=== PATIENT | female | born 1950 | race Caucasian/White ===

== ENCOUNTER → 2018-06-15 11:42 | Outpatient (CLI) | payer MEDICARE, OTHER, SELFPAY ==
[2018-06-15 15:38] LABS: Absolute Lymphocyte Count 1.92 X10^3/ul (0.83-4.51); Absolute Neutrophil Count 4.2 X10^3/uL (2.0-7.7); Basophil# 0.02 X10^3/uL; Basophil% 0.3 % (0-1); Eosinophil# 0.07 X10^3/uL; Hematocrit 44.3 % (37-47); Hemoglobin 13.9 g/dl (12.0-15.0); Lymphocyte # 1.92 X10^3/ul (4.0); Lymphocyte % 28.4 % (19-41); Mean Corp Hgb Conc 31.4 g/gl (32-36); Mean Corpuscular Hgb 29.7 pg (27.0-32.0); Mean Corpuscular Volume 94.7 fL (81-99); Mean Platelet Vol. 11.1 fl (6.2-12.0); Monocyte# 0.53 X10^3/uL; Monocyte% 7.8 % (0-10); Neutrophil # 4.22 X10^3/uL (2.7-7.7); Neutrophil % 62.4 % (47-70); Platelet Count 242 K/mm3 (150-450); RBC Distribution Width CV 14.2 % (11.6-14.6); RBC Distribution Width SD 47.5 fl (35.1-43.9); Red Blood Count 4.68 M/mm3 (4.2-5.4); White Blood Count 6.8 K/mm3 (4.4-11.0)
[2018-06-15 15:55] LABS: International Normalized Ratio 3.4; Prothrombin Time (Protime)PT. 34.3 SECONDS (11.7-14.9)
[2018-06-15 15:57] LABS: ALB/GLOB Ratio 0.8 RATIO (0.9-2.4); AST(SGOT) 14 U/L (15-37); Alanine Aminotransfer ALT/SGPT 21 U/L (13-56); Albumin, Serum 3.3 g/dL (3.2-5.0); Alkaline Phosphatase 94 U/L (45-117); Anion Gap 9 (5-15); BUN 14 mg/dL (7-18); Calcium,Total 8.9 mg/dL (8.5-10.1); Chloride 102 mmol/L (98-107); EST Glomerular Filtration Rate 59 mL/min (>60); Est Glom Filt Rate - Afr Amer 71 mL/min (>60); Globulin 4.3 g/dL (2.2-4.2); Glucose 137 mg/dL (74-106); Potassium 4.3 mmol/L (3.5-5.1); Protein, Total 7.6 g/dL (6.4-8.2); Sodium Level 138 mmol/L (136-145); T4 Free Direct 1.08 ng/dL (0.76-1.46); Thyroid Stim Hormone (TSH) 9.16 uIU/mL (0.358-3.74)
[2018-06-15 16:01] LABS: POSITIVE COUNT NO; POSITIVE DIFFERENTIAL NO; POSITIVE MORPHOLOGY NO
== END ==
PROVIDERS: Family Provider Family Medicine; PCP Family Medicine; Visit Provider Family Medicine
DX: I48.91 Unspecified atrial fibrillation (principal); J44.9 Chronic obstructive pulmonary disease, unspecified; E03.9 Hypothyroidism, unspecified
CPT/HCPCS: 36415; 80053; 82043; 82570; 84439; 84443; 85025; 85610

== ENCOUNTER → 2018-11-03 15:43 | Outpatient (CLI) | payer MEDICARE, OTHER, SELFPAY ==
[2018-11-03 17:42] LABS: Absolute Lymphocyte Count 2.33 X10^3/ul (0.83-4.51); Absolute Neutrophil Count 5.7 X10^3/uL (2.0-7.7); Basophil# 0.02 X10^3/uL; Basophil% 0.2 % (0-1); Eosinophil# 0.07 X10^3/uL; Eosinophils% 0.8 % (0-5); Hematocrit 43.5 % (37-47); Hemoglobin 13.6 g/dl (12.0-15.0); Lymphocyte # 2.33 X10^3/ul (4.0); Lymphocyte % 26.9 % (19-41); Mean Corp Hgb Conc 31.3 g/gl (32-36); Mean Corpuscular Hgb 28.8 pg (27.0-32.0); Mean Corpuscular Volume 92.2 fL (81-99); Mean Platelet Vol. 10.9 fl (6.2-12.0); Monocyte# 0.52 X10^3/uL; Neutrophil # 5.72 X10^3/uL (2.7-7.7); Neutrophil % 66.1 % (47-70); Platelet Count 262 K/mm3 (150-450); RBC Distribution Width CV 14.7 % (11.6-14.6); RBC Distribution Width SD 49.9 fl (35.1-43.9); Red Blood Count 4.72 M/mm3 (4.2-5.4); White Blood Count 8.7 K/mm3 (4.4-11.0)
[2018-11-03 17:47] LABS: POSITIVE COUNT NO; POSITIVE DIFFERENTIAL NO; POSITIVE MORPHOLOGY NO
[2018-11-03 18:03] LABS: Microalbumin,Random Urine 68.3 mg/L (NO RANGE EST.); Microalbumin:Creatinine Ratio 32.5 mg/g CRE (<30 mg/g CRE)
[2018-11-03 18:13] LABS: AST(SGOT) 13 U/L (15-37); Alanine Aminotransfer ALT/SGPT 16 U/L (13-56); Albumin, Serum 3.4 g/dL (3.2-5.0); Alkaline Phosphatase 98 U/L (45-117); Anion Gap 7 (5-15); BUN 13 mg/dL (7-18); BUN/Creat Ratio 13.4 RATIO (10-20); Calcium,Total 8.6 mg/dL (8.5-10.1); Chloride 102 mmol/L (98-107); Creatinine, Serum 0.97 mg/dL (0.55-1.02); EST Glomerular Filtration Rate 61 mL/min (>60); Est Glom Filt Rate - Afr Amer 74 mL/min (>60); Globulin 3.4 g/dL (2.2-4.2); Glucose 157 mg/dL (74-106); Magnesium 1.8 mg/dL (1.6-2.6); Potassium 3.6 mmol/L (3.5-5.1); Protein, Total 6.8 g/dL (6.4-8.2); Sodium Level 139 mmol/L (136-145); T4 Free Direct 0.99 ng/dL (0.76-1.46); Thyroid Stim Hormone (TSH) 9.03 uIU/mL (0.358-3.74)
== END ==
PROVIDERS: Family Provider Family Medicine; PCP Family Medicine; Referring Provider Family Medicine; Visit Provider Family Medicine
DX: E03.9 Hypothyroidism, unspecified (principal); M79.89 Other specified soft tissue disorders; I50.30 Unspecified diastolic (congestive) heart failure
CPT/HCPCS: 36415; 80053; 82043; 82570; 83735; 84439; 84443; 84481; 85025

== ENCOUNTER → 2018-11-27 | Outpatient (CLI) | payer MEDICARE, OTHER, SELFPAY ==
--- NOTE | 2018-11-27 09:33 | ART_ITS ---
Reason For Study: Foot discoloration Procedure A bilateral lower extremity continuous wave Doppler with analog waveform analysis and ankle brachial indexes. Left Segmental Pressures Left brachial= 162mmHg. Left posterior tibial artery = 124mmHg. Left dorsalis pedis artery = 98mmHg. The left dorsalis pedis waveforms are biphasic. The left posterior tibial artery waveforms are biphasic. Right Segmental Pressures Right brachial= 171mmHg. Right posterior tibial artery = 127mmHg. Right dorsalis pedis artery = 145mmHg. The right dorsalis pedis waveforms are biphasic. The right posterior tibial artery waveforms are biphasic. Indices The right ankle brachial index by the dorsalis pedis is .85. The right ankle brachial index by the posterior tibial artery is .74. The left ankle brachial index by the dorsalis pedis is .57. The left ankle brachial index by the posterior tibial artery is .73. Interpretation Summary Abnormal bilateral non-invasive indices and waveforms in the range of vascular claudication. JACLYN's Ordering Physician: Alejandro Rosales Referring Physician: Alejandro Rosales Performed By: Nelli Daniels Breann
--- NOTE | 2018-11-27 09:34 | ECHOCS_ITS ---
Reason For Study: DIASTOLIC HEART FAILURE Procedure This was a 2D Doppler, Color Flow transthoracic echocardiogram. The study was technically difficult. Contrast injection was performed. Exam performed in department. Left Ventricle Normal LV size. Left ventricular systolic function is normal. The estimated ejection fraction is 55 %. Unable to assess diastolic dysfunction. No regional wall motion abnormalities noted. Right Ventricle Normal RV size. Normal systolic function. Atria The left atrium is mildly enlarged. Normal right atrium. Lipomatous hypertrophy of the atrial septum. No doppler evidence for ASD. Mitral Valve There is moderate mitral annular calcification. Mild focal mitral valve calcification of the anterior leaflet. Mild (1+) mitral valve insufficiency. Tricuspid Valve Normal tricuspid valve. Trivial tricuspid valve insufficiency. Right ventricular systolic pressure estimated to be 31 mmHg. Aortic Valve The aortic valve is not well visualized. Pulmonic Valve The pulmonic valve is not well visualized. Great Vessels Normal sized aortic root. Pericardium/Pleural No pericardial effusion. Medication 22 gauge I.V. with prn adaptor inserted into right arm. Diluted definity 5ml given slow IV push to enhance endocardial definition. MMode/2D Measurements & Calculations LVIDd: 5.0 cm IVSd: 0.93 cm Ao root diam: 2.9 cm LVIDs: 3.8 cm LVPWd: 0.77 cm RVDd: 3.5 cm FS: 24.9 % LAV(MOD-bp): 75.6 ml LVAd ap4: 27.7 cm2 SV(MOD-sp4): 46.0 ml LAV(MOD-bp) Indexed: 34.9 ml/m2 EDV(MOD-sp4): 88.1 ml LAV(MOD-sp2): 89.2 ml EDV(sp4-el): 90.3 ml LAV(MOD-sp4): 62.4 ml LVAs ap4: 16.9 cm2 ESV(MOD-sp4): 42.1 ml ESV(sp4-el): 42.8 ml EF(MOD-sp4): 52.2 % EF(sp4-el): 52.7 % SV(sp4-el): 47.6 ml LA A4 area: 21.9 cm2 LA dimension(2D): 4.5 cm RA A4 area: 12.6 cm2 Doppler Measurements & Calculations MV E max obdulio: 169.0 cm/sec MV V2 max: 205.6 cm/sec MV P1/2t max obdulio: 198.3 cm/sec MV max P.0 mmHg MV P1/2t: 185.4 msec MV V2 mean: 129.7 cm/sec MV dec slope: 313.2 cm/sec2 MV mean P.0 mmHg MVA(P1/2t): 1.2 cm2 MV V2 VTI: 65.4 cm Ao V2 max: 165.6 cm/sec LV V1 max: 114.5 cm/sec PA V2 max: 135.7 cm/sec Ao max P.1 mmHg LV V1 max P.3 mmHg TR max obdulio: 263.0 cm/sec MV P1/2t-pr_phl: 182.4 msec TR max P.7 mmHg Interpretation Summary The study was technically difficult. Contrast injection was performed. Left ventricular systolic function is normal. The estimated ejection fraction is 55 %. The left atrium is mildly enlarged. Lipomatous hypertrophy of the atrial septum. There is moderate mitral annular calcification. Mild focal mitral valve calcification of the anterior leaflet. Mild (1+) mitral valve insufficiency. Trivial tricuspid valve insufficiency. Right ventricular systolic pressure estimated to be 31 mmHg. Unable to assess diastolic dysfunction. Ordering Physician: Alejandro Rosales Referring Physician: Alejandro Rosales Performed By: Autumn Aponte RDCS
== END | disposition home or self-care (01) ==
LOC: CVS 09:21
PROVIDERS: Family Provider Family Medicine; PCP Family Medicine; Referring Provider Family Medicine; Visit Provider Family Medicine
DX: R09.89 Other specified symptoms and signs involving the circulatory and respiratory systems (principal); R60.0 Localized edema; I50.30 Unspecified diastolic (congestive) heart failure; L81.9 Disorder of pigmentation, unspecified; Z86.79 Personal history of other diseases of the circulatory system
CPT/HCPCS: 93306; 93922; Q9957; A4216; C8929

== ENCOUNTER 2018-12-22 07:00 | Outpatient (RCR) | payer MEDICARE, OTHER, SELFPAY ==
--- NOTE | 2018-11-26 08:03 | HP.PTEVAL_ITS ---
Patient's Visit Information YAMILE RODRIGUEZ is a 68 year old F referred to Physical Therapy by Alejandro Rosales MD with a diagnosis of LEFT KNEE PAIN /WEAKNESS,pes anserine. Date of Evaluation: 11/26/18 Physical Therapist: Bob Groves PT, Cert MDT, OCS - Visit Plan Frequency: 1x/Week Duration: 8WEEKS Plan: INTERVENTIONS MODALITIES,ROM.STRENGTHENING QUAD/HAMS HIP - Subjective Findings: This 68 y/o female presents to physical therapy with with left knee pain . Patient has left knee pain several months. Patient synptoms where incidous onset . Due to pain ,patient had to start using QC. Pain is descriped as ache. Aggravating factors walking,standing stairs,uanble to squat/kneeling . Alleviating factors rest. Patient karlos to sleep. Denies parathesia/tingling. Patient seen DR garcia PT and plan to do a MRI. Patient symptoms affect QOL and function. Patient pain affects ability to perform ADL'S and houseworks tasks. Comorbities to include several CVA. VOCATION: unemployed. SOCIAL: - Pain Right Knee Pain Intensity (Out of 10): 4 Pain Intensity Range: 10 - Objective POSTURE: mild foward posture,hips/knee slightly flexed. GAIT: mild foward posture knee/hip flexed with QC. NEURO: intact. PALAPTION: tender joint line medial/lateral,pes anserine. AROM: 2-120 supine knee flexion. MMT: quads/hams 4-/5,ankle 4/5 hip flexion/abd 4-/5. FLEXABLITY: hams min loss - Special Tests L Knee Carl - Meniscus: Positive L Knee Jamir - ACL: Negative L Knee Posterior Drawer - PCL: Negative L Knee Valgus - MCL: Negative L Knee Varus - LCL: Negative L Knee Patellar Apprehension - PFS: Negative L Knee Patellar Grind - PFS: Negative - Goals Goal 1:: Patient to be Independant with HEP Goal Time Frame: 4-6 Weeks Goal 2:: Patient to decrease pain by 50% or grester to improve function. Goal Time Frame: 4-6 Weeks Goal 3:: Patient increase strength quads/hams 4/5 to improve function standing/walking. Goal Time Frame: 4-6 Weeks Goal 4:: Patient ambualte with no device at community distances with increase gait pattern Goal Time Frame: 4-6 Weeks Goal 5:: Patient to improve LFES score by 8-10 points to improve QOL. Goal Time Frame: 4-6 Weeks - Rehabilitation Potential Physical Therapy Diagnosis: This patient has left knee pain ,palaption tenderness,ROM,decrease weakness quads/hams,impairs gait requiring patient to use QC - Anticipated Interventions Patient/Client Instruction: Educate patient on: Condition, Plan of Care For the Purpose of:: To decrease pain, To increase ROM, To improve muscle performance and motor function, To increase tolerance to activity/condition/position, To improve performance and independence with ADL's, To improve ability of physical actions for home/community/work/leisure, To improve gait and locomotor functions, To improve health of tissue, To decrease soft tissue restriction, To improve ability to perform tasks related to life management Therapeutic Exercise to Include: Strength training, Endurance training, Balance training, Active ROM Comment: KNEE HIP For the Purpose of:: To decrease pain, To increase ROM, To improve muscle p erformance and motor function, To improve ability to perform ADL's, To increase tolerance to activity/condition/position, To improve ability of physical actions for home/community/work/leisure, To improve health of tissue, To decrease soft tissue restriction, To increase flexibility/ROM, To improve ability to perform tasks related to life management TENS: Yes IF ES: Yes Cryotherapy (ice pack, ice massage): Yes Thermo therapy (hot pack): Yes Ultrasound (thermal/non thermal): Yes For the Purpose of:: To decrease pain, To increase ROM, To improve muscle performance and motor function, To increase tolerance to activity/condition/position, To improve ability of physical actions for home/community/work/leisure, To improve health of tissue, To decrease soft tissue restriction, To increase flexibility/ROM, To improve ability to perform tasks related to life management Thank you for the opportunity to evaluate your patient. For Medicare and Medicare HMO plans, please review the plan of care and approve it. It will need to be FAXED BACK to us at [phone] for Medicare purposes. For Medicare only, by signing this I certify the plan of care. Please let me know if there are questions or concerns regarding this plan of care. Physician Signature: Date:
--- NOTE | 2019-05-03 15:52 | HP.PTDCNRP_ITS ---
HP - Discharge Summary (1) - Patient Information YAMILE RODRIGUEZ was seen in my office for initial evaluation on 11/26/18. The following Plan of Care was established for this patient: Initial Frequency: 1x/Week Initial Duration: 8WEEKS - Anticipated Interventions Patient/Client Instruction: Educate patient on: Condition, Plan of Care For the Purpose of:: To decrease pain, To increase ROM, To improve muscle performance and motor function, To increase tolerance to activity/condition/position, To improve performance and independence with ADL's, To improve ability of physical actions for home/community/work/leisure, To improve gait and locomotor functions, To improve health of tissue, To decrease soft tissue restriction, To improve ability to perform tasks related to life management Therapeutic Exercise to Include: Strength training, Endurance training, Balance training, Active ROM For the Purpose of:: To decrease pain, To increase ROM, To improve muscle per formance and motor function, To improve ability to perform ADL's, To increase tolerance to activity/condition/position, To improve ability of physical actions for home/community/work/leisure, To improve health of tissue, To decrease soft tissue restriction, To increase flexibility/ROM, To improve ability to perform tasks related to life management TENS: Yes IF ES: Yes Cryotherapy (ice pack, ice massage): Yes Thermo therapy (hot pack): Yes Ultrasound (thermal/non thermal): Yes For the Purpose of:: To decrease pain, To increase ROM, To improve muscle performance and motor function, To increase tolerance to activity/condition/position, To improve ability of physical actions for home/community/work/leisure, To improve health of tissue, To decrease soft tissue restriction, To increase flexibility/ROM, To improve ability to perform tasks related to life management This patient was last seen in our office 11/26/18. Pertinent comments regarding their Physical therapy will appear below: Patient seen for PT for pes aserine bursitis and knee pain with tx focusing on modalities for pain and strengthening ex's thus is d/c. At this point I will be discontinuing this patient from physical therapy. I would be happy to see this patient again in the future if found appropriate by the physician. Thank you! Bob Groves, PT, Cert MDT, OCS
== END 2018-12-22 19:00 | disposition home or self-care (01) ==
LOC: PT 07:00
PROVIDERS: Family Provider Family Medicine; PCP Family Medicine; Referring Provider Family Medicine; Visit Provider Family Medicine
DX: M25.562 Pain in left knee (principal); R29.898 Other symptoms and signs involving the musculoskeletal system
CPT/HCPCS: 97014; 97110; 97162; G0283

== ENCOUNTER → 2020-05-26 10:02 | Outpatient (CLI) | payer MEDICARE, OTHER, SELFPAY ==
[2019-11-03 09:25] VITALS: BMI 41.4
[2020-05-26 12:02] LABS: Absolute Lymphocyte Count 1.68 X10^3/uL (0.83-4.51); Absolute Neutrophil Count 4.8 X10^3/uL (2.0-7.7); Basophil# 0.03 X10^3/uL; Basophil% 0.4 % (0-1); Eosinophil# 0.09 X10^3/uL; Eosinophils% 1.3 % (0-5); Hematocrit 38.3 % (37-47); Hemoglobin 11.7 g/dL (12.0-15.0); Lymphocyte # 1.68 X10^3/ul (4.0); Lymphocyte % 23.6 % (19-41); Mean Corp Hgb Conc 30.5 g/dL (32-36); Mean Corpuscular Hgb 27.7 pg (27.0-32.0); Mean Corpuscular Volume 90.5 fL (81-99); Mean Platelet Vol. 10.7 fl (6.2-12.0); Monocyte# 0.49 X10^3/uL; Monocyte% 6.9 % (0-10); NRBC Flagged by Analyzer 0 % (0-5); Neutrophil % 67.4 % (47-70); Platelet Count 318 K/mm3 (150-450); RBC Distribution Width CV 14.4 % (11.6-14.6); RBC Distribution Width SD 46.8 fl (35.1-43.9); Red Blood Count 4.23 M/mm3 (4.2-5.4); White Blood Count 7.1 K/mm3 (4.4-11.0)
[2020-05-26 12:29] LABS: ALB/GLOB Ratio 0.9 RATIO (0.9-2.4); AST(SGOT) 10 U/L (15-37); Alanine Aminotransfer ALT/SGPT 13 U/L (13-56); Albumin, Serum 3.2 g/dL (3.2-5.0); Alkaline Phosphatase 99 U/L (45-117); Anion Gap 9 (5-15); BUN 16 mg/dL (7-18); Calcium,Total 8.8 mg/dL (8.5-10.1); Chloride 99 mmol/L (98-107); EST Glomerular Filtration Rate 59 mL/min (>60); Est Glom Filt Rate - Afr Amer 71 mL/min (>60); Globulin 3.5 g/dL (2.2-4.2); Glucose 163 mg/dL (74-106); Potassium 3.1 mmol/L (3.5-5.1); Protein, Total 6.7 g/dL (6.4-8.2); Sodium Level 138 mmol/L (136-145); T4 Free Direct 1.12 ng/dL (0.76-1.46)
[2020-05-26 12:30] LABS: Microalbumin,Random Urine 35.4 mg/L (NO RANGE EST.); Microalbumin:Creatinine Ratio 19.5 mg/g CRE (<30 mg/g CRE)
== END ==
PROVIDERS: PCP Family Medicine; Referring Provider Family Medicine; Visit Provider Family Medicine
DX: I48.91 Unspecified atrial fibrillation (principal); E03.9 Hypothyroidism, unspecified; I10 Essential (primary) hypertension
CPT/HCPCS: 36415; 80053; 82043; 82570; 84439; 84443; 84481; 85025

== ENCOUNTER → 2020-12-25 11:08 | Outpatient (CLI) | payer MEDICARE, OTHER, SELFPAY ==
[2019-11-03 09:25] VITALS: BMI 41.4
[2020-12-25 12:43] LABS: Hematocrit 36.2 % (37-47); Hemoglobin 10.6 g/dL (12.0-15.0); Mean Corp Hgb Conc 29.3 g/dL (32-36); Mean Corpuscular Hgb 25.5 pg (27.0-32.0); Mean Corpuscular Volume 87.2 fL (81-99); Mean Platelet Vol. 10.2 fl (6.2-12.0); Platelet Count 347 K/mm3 (150-450); RBC Distribution Width CV 15.8 % (11.6-14.6); RBC Distribution Width SD 50.4 fl (35.1-43.9); Red Blood Count 4.15 M/mm3 (4.2-5.4); White Blood Count 8.6 K/mm3 (4.4-11.0)
[2020-12-25 12:52] LABS: International Normalized Ratio 2.1; Prothrombin Time (Protime)PT. 23.1 SECONDS (11.7-14.9)
[2020-12-25 13:34] LABS: ALB/GLOB Ratio 0.9 RATIO (0.9-2.4); AST(SGOT) 9 U/L (15-37); Alanine Aminotransfer ALT/SGPT 13 U/L (13-56); Albumin, Serum 3.5 g/dL (3.2-5.0); Alkaline Phosphatase 104 U/L (45-117); Anion Gap 7 (5-15); BUN 18 mg/dL (7-18); BUN/Creat Ratio 17.3 RATIO (10-20); Calcium,Total 9.2 mg/dL (8.5-10.1); Chloride 103 mmol/L (98-107); Creatinine, Serum 1.04 mg/dL (0.55-1.02); EST Glomerular Filtration Rate 56 mL/min (>60); Est Glom Filt Rate - Afr Amer 68 mL/min (>60); Globulin 3.7 g/dL (2.2-4.2); Glucose 137 mg/dL (74-106); Protein, Total 7.2 g/dL (6.4-8.2); Sodium Level 137 mmol/L (136-145); T4 Free Direct 1.04 ng/dL (0.76-1.46); Thyroid Stim Hormone (TSH) 9.81 uIU/mL (0.358-3.74)
== END ==
PROVIDERS: PCP Family Medicine; Visit Provider Family Medicine
DX: I48.91 Unspecified atrial fibrillation (principal); E03.9 Hypothyroidism, unspecified; I11.0 Hypertensive heart disease with heart failure; I50.42 Chronic combined systolic (congestive) and diastolic (congestive) heart failure
CPT/HCPCS: 36415; 80053; 83735; 84439; 84443; 85027; 85610

== ENCOUNTER → 2021-05-22 10:37 | Outpatient (CLI) | payer MEDICARE, OTHER, SELFPAY ==
--- NOTE | 2021-05-22 10:41 | BI_ITS ---
MAMMOGRAPHY - BILATERAL SCREENING REASON FOR EXAM: Female, 71 years old. Routine annual screening examination. PERTINENT HISTORY: Aunt with breast cancer. TECHNIQUE: Digital bilateral breast stephanie (3D mammographic acquisition) in the CC and MLO projections. 2-D mediolateral oblique (MLO) and craniocaudad (CC) views of both breasts were obtained. CAD: Full Field Digital Mammography with Computer Added Detection was performed. COMPARISON: Comparison is made with prior study dated 07/25/2016 and 07/06/2015. FINDINGS: Breast Composition: The breasts are heterogeneously dense, which may obscure small masses. There are no dominant masses or suspicious calcifications. No other significant abnormalities are identified. There has been no significant change since the prior study. BI/SCRN MAMM (CAD)W/STEPHANIE BILAT IMPRESSION: Stable bilateral screening mammogram. Yearly follow-up mammogram recommended. (A) ASSESSMENT CATEGORY: BIRADS Category 1: Negative. A letter regarding these results will be sent to the patient by the facility within 30 days. Approximately 10% of breast cancers are not detected by mammography. A normal mammogram should not delay biopsy of a clinically suspicious abnormality. [id number] Electronically Signed: Riki Singer MD at 12:30 EDT , Service support ,
== END ==
PROVIDERS: PCP Family Medicine; Referring Provider Family Medicine; Visit Provider Family Medicine
DX: Z12.31 Encounter for screening mammogram for malignant neoplasm of breast (principal)
CPT/HCPCS: 77063; 77067

== ENCOUNTER 2021-08-06 06:17 | Day surgery (SDC) | payer MEDICARE, OTHER, SELFPAY ==
[2021-08-06] VITALS (7 sets, daily range): BP systolic 90–135; BP diastolic 39–109; PULSE 62–83; RESP 16–20; TEMP 36.1–36.3; O2SAT 94–100; BMI 42.0
[2021-08-06] MEDS: Lactated Ringers 1,000 ML 15 ML IV (07:04)
[2021-08-06 07:05] LABS: INR Fingerstick 1.7; Prothrombin Time Fingerstick 19.9 SEC (11.9-14.4)
--- NOTE | 2021-08-06 07:20 | HP.PCM_ITS ---
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 Required: No Allergies codeine Allergy (Severe, Verified 04/28/19 11:14) anaphylaxis Medications indapamide 2.5 mg PO DAILY 02/20/17 [History Confirmed 07/24/21] albuterol sulfate 90 mcg/actuation aerosol inhaler 2 puff INHALATION Q4H PRN g 12/09/18 [History Confirmed 07/24/21] fluticasone propionate 50 mcg/actuation nasal spray,suspension 1 spray INTRANASA L DAILY PRN 12/09/18 [History Confirmed 07/24/21] warfarin 5 mg tablet 5 mg PO DAILY 12/09/18 [History Confirmed 07/24/21] warfarin 3 mg tablet 3 mg PO DAILY 04/28/19 [History Confirmed 07/24/21] sacubitril 24 mg-valsartan 26 mg tablet 1 tab PO BID #180 tab 05/16/21 [Rx Confirmed 07/24/21] potassium citrate 5 mEq (540 mg) tablet,extended release 5 meq PO DAILY 07/24/21 [History Confirmed 07/24/21] Is last menstrual period known: No Post menopausal: Yes Patient : No PFSH Medical History Atrial thrombus Chronic anticoagulation Chronic combined systolic and diastolic heart failure CVA (cerebral vascular accident) (~2006) Essential hypertension History of anxiety History of rheumatic fever as a child PAD (peripheral artery disease) PFO with atrial septal aneurysm Surgical History History of appendectomy History of cholecystectomy History of hysterectomy Family History Father Myocardial infarction Cancer lung CVA (cerebral vascular accident) Mother Colon cancer Brother Diabetes CAD (coronary artery disease) open heart surgery Social History Smoking Status: Former smoker how long ago did patient quit smokin years ago alcohol intake: never substance use type: does not use caffeine: Yes Type: tea Number of servings: 2 HPI HPI HPI: YAMILE RODRIGUEZ, is a 71 F who presents to the office today for positive Cologuard. Patient's mom had colon cancer twice in her 60s with resections both times. Patient never previously had a colonoscopy or Cologuard. Patient states she has bowel movements once or twice a week and has had that her entire life. Patient denies any blood/abdominal pain/nausea/vomiting. Patient has had multiple strokes currently on Coumadin patient's last stroke was in 2006 when she came off of Coumadin on her own. ROS General General: Yes fatigue; No weight change, appetite, colon cancer, breast cancer or weakness HEENT HEENT: No difficulty swallowing, eye injury, eye surgery, swollen glands or hoarseness Endo Endocrine: Yes thyroid disease; No diabetes mellitus, thyroid cancer, Hair loss, heat intolerance or cold intolerance Musc Musculoskeletal: Yes arthritis; No back problems, rheumatoid arthritis, gout or joint pain Cardio Cardiovascular: Yes heart disease and high blood pressure; No murmur, pacemaker, atrial fibrillation, heart attack, heart stent, palpitations, shortness of breat with exertion or chest pain Psych Psychiatric: Yes depression and anxiety; No hearing voices Resp Respiratory: Yes shortness of breath, No sleep apnea, No cough, Yes COPD, No asthma, No emphysema and No wheezing Gastro Gastrointestinal: No abdominal pain, No nausea or vomiting, No diarrhea, Yes constipation, No blood in stool, No acid reflux, No hemorrhoids, No ulcers, No gallbladder problem and No black,tarry stools [place] Hematologic: Yes blood thinners, No blood disorders, No bleeding, No anemia and No blood clots Neuro Neurologic: No weakness Exam Const General: cooperative, comfortable and no acute distress Neck Neck: normal visual inspection Resp Effort & Inspection: normal respiratory effort Cardio Rate: regular rate GI Inspection: non-distended Palpation: soft, no guarding and nontender Skin General: no rashes or lesions noted Neuro General: patient oriented x3 Psych Affect: normal affect COVID (Procedure Consent) Procedure Criteria Procedure Criteria: Yes Elective The surgeon/proceduralist and patient have discussed in detail the risk of exposure to and/or potential harm posed by the COVID-19 virus with having a surgery/procedure at this time versus the risk of delaying the surgery/procedure. It is not possible to know either the risk of delaying the surgery or procedure or chance of getting an infection with perfect accuracy, but a joint decision was made between the patient and the surgeon/proceduralist to proceed at this time with the scheduled surgery/procedure as indicated on the consent form. Assessment and Plan Assessment and Plan (1) Positive colorectal cancer screening using Cologuard test: Status: Acute (2) Chronic anticoagulation: Status: Acute Plan - Dr. Michelle Paige MD: Patient is chronically on Coumadin due to history of CVAs. Patient's last CVA was in 2006 when she came off Coumadin. As patient will likely need to be bridged. Will contact Dr. Rosales's office for further assistance with this. I have discussed the above with the patient. I have offered the patient colonoscopy for evaluation. Patient would prefer after the first of the year I have explained the risks/benefits of the procedure and described the procedure. I have discussed the risks with the patient, including but not limited to: infection, bleeding, perforation of the GI tract requiring emergency surgery, inability to complete the procedure, injury to any internal organs, complications of anesthesia, etc. - the patient understands and agrees to proceed. I have answered all the patient's questions to the patient's satisfaction and the patient has no further questions. The patient has been given instructions for the colon cleansing preparation. 2- day prep magnesium citrate the first day and MiraLAX Dulcolax split prep second day?2 days of clears Michelle Paige M.D. Pager: [phone] [facility] [address] [place] [address], [address] [place] [address] Office: [phone] Coding Level of Care Code Off vis,new,level 3 Diagnoses Positive colorectal cancer screening using Cologuard test R19.5 Chronic anticoagulation Z79.01 07/24/21 1008<Electronically signed by Michelle Paige MD>Date Michelle Paige MD
--- NOTE | 2021-08-06 07:30 | IMM_PTH ---
PATIENT: YAMILE RODRIGUEZ LOC: EN U#:[id number] AGE/SX: 71/F ROOM: RE08/06/[address]: Dr. Michelle Paige MD : 1950 BED: DIS: 08/06/2021 SPEC #: [id number] RECD: 08/06/21 12:24 STATUS: BALDOMERO REDelonte #: [id number] JOE: 08/06/21 07:[address]: Michelle Paige DEPT: IMMUNOHISTOCHEMISTRY RECD BY: Palak Roman ENTERED: 08/06/21 12:26 SP TYPE: IMMUNO OTHR DR: Dr. Alejandro Rosales MD Tissues: B - Stomach, NOS C - Ascending colon Procedures: H Pylori (initial) MSH2 (add) MLH-1 (add) MSH6 (add) Anti-PMS2 (add) PASTOR-2 (add) KI-67 (add) P53 (add) HER-2-DION (initial) PHYSICIAN & [address] [address] SPECIMEN INFORMATION: Tissue Source: B ? Antrum biopsy, C ? Proximal ascending colon mass biopsy Clinical Info: Positive [place] Specimen Number: [id number] B & C CPT code: 54342 x2, 66749 x7 METHODOLOGY: Deparaffinized sections of prefer/formalin-fixed tissue or PAP/DQ stained slides are incubated with monoclonal/polyclonal antibodies/oligonucleotide probes. Localization is made via biotin free immunoperoxidase method. Appropriate controls are performed and reacted as expected. Results on target cell population are indicated in the following table: RESULTS: ANTIBODY / CLONE RESULT Block B H Pylori (polyclonal) negative Block C Ki-67 (30-9) positive, high P53 (DO-7) positive, low PASTOR-2 (SP21) positive MLH-1 (M1) positive MSH2 (25D12) positive MSH6 (44) positive PMS2 ([id number]) positive Her-2neu (CB11) negative These tests were developed and their performance characteristics determined by [facility]. They may not have been cleared or approved by the U.S. Food and Drug Administration. The FDA has determined that such clearance or approval is not necessary. The above immunohistochemical/dualISH markers are ordered and reviewed by the pathologist. INTERPRETATION: B. Antrum biopsy: Negative for Helicobacter pylori organisms. C. Proximal ascending colon mass, biopsy: Invasive adenocarcinoma. Result of Microsatellite Instability Study: Negative (no loss of mismatch protein; no microsatellite instability detected). SJ:diana 08/08/2021
--- NOTE | 2021-08-06 07:30 | COLBX_PTH ---
PATIENT: YAMILE RODRIGUEZ LOC: EN U#:[id number] AGE/SX: 71/F ROOM: RE08/06/[address]: Dr. Michelle Paige MD : 1950 BED: DIS: 08/06/2021 SPEC #: [id number] RECD: 08/06/21 08:07 STATUS: BALDOMERO ELIECER #: [id number] JOE: 08/06/21 07:[address]: Michelle Paige DEPT: SURGICAL PATHOLOGY RECD BY: Palak Roman ENTERED: 08/06/21 09:18 SP TYPE: COLON BX OTHR DR: Dr. Alejandro Rosales MD Tissues: A - Ascending colon B - Gastric mucous membrane C - Ascending colon Procedures: Frozen Section (charge) Surgery Specimen Level IV HEADER OPERATION: Colonoscopy, EGD ([facility]) PRE-OP DIAGNOSIS: Positive Cologuard test TISSUE SUBMITTED: A ? Proximal ascending colon mass biopsy, FS, B ? Antrum biopsy for histo and H. pylori, C ? Proximal ascending colon mass biopsy FROZEN SECTION DIAGNOSIS A. Proximal ascending colon mass, biopsy: Suspicious for invasive carcinoma. SJ:diana 08/06/2021 MICROSCOPIC DIAGNOSIS A. Proximal ascending colon mass, biopsy: Suspicious for invasive carcinoma. B. Antrum biopsy: Mild gastritis. See microscopic description and comment. C. 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 See comment. SJ:diana 08/07/2021 COMMENT B. The results of immunohistochemistry for Helicobacter pylori will be reported separately ([id number]). C. Immunohistochemistry (RF22-2) for microsatellite instability (mismatch repair of protein) will be performed and the results will be reported separately. Case has been reviewed in consultation with Dr. Almaguer who concurs with the above diagnosis. IDC:AM MICROSCOPIC DESCRIPTION Slides are reviewed. B. The specimen shows fragments of gastric mucosa with chronic inflammatory cell infiltrates in the lamina propria consisting of lymphocytes and plasma cells, consistent with mild chronic gastritis. GROSS DESCRIPTION A - Received fresh for frozen section diagnosis labeled with the patient's name is a specimen designated proximal ascending colon mass. The specimen consists of a piece of valentin soft tissue measuring 0.5 x 0.1 x 0.1 cm. The entire specimen is submitted for frozen section diagnosis in one cassette. B - Received in fixative is one container labeled with the patient's name and designated antrum biopsy. The specimen consists of two irregular fragments of light valentin soft tissue that in aggregate measure 0.5 x 0.3 x 0.1 cm. The specimen is totally submitted in one cassette. C - Received in fixative is one container labeled with the patient's name and designated proximal ascending colon mass biopsy. The specimen consists of multiple irregular fragments of light valentin soft tissue that in aggregate measure 1 x 0.3 x 0.1 cm. The specimen is totally submitted in one cassette. / SJ:diana 08/06/21 TC:0 CPT: 41211 x3, 37971
--- NOTE | 2021-08-06 08:23 | OP.CCLET_ITS ---
08/06/2021 Alejandro Rosales [address] [place] [address] Re : Upper GI endoscopy procedure for Elizabeth Kale Dear Dr. Rosales This procedure was performed on Friday, August 06, 2021. My impressions and recommendations are as follows: Impressions : - Z-line variable, 40 cm from the incisors. - Normal examined duodenum. - Gastritis with hemorrhage. Biopsied. Recommendations : - Await pathology results. - Discharge patient to home. - Resume previous diet. - Continue present medications. - Use Protonix (pantoprazole) 40 mg PO daily. My findings are described in the full procedure note, which is enclosed. If I can be of further assistance, please feel free to contact me at Doctor phone number(s): , Work: . Sincerely, MD Michelle Rinaldi MD 08/06/2021 8:22:41 AM This report has been signed electronically.
--- NOTE | 2021-08-06 08:23 | OP.EGD_ITS ---
Patient Name: Elizabeth Henley Procedure Date: 08/06/2021 7:27 AM Date of : 1950 Age: 71 Procedure: Upper GI endoscopy Indications: +cologuard Providers: Michelle Paige MD Medicines: Monitored Anesthesia Care Patient Profile: This is a 71 year old female. Complications: No immediate complications. Procedure: Pre-Anesthesia Assessment: - Prior to the procedure, a History and Physical was performed, and patient medications and allergies were reviewed. The patient's tolerance of previous anesthesia was also reviewed. The risks and benefits of the procedure and the sedation options and risks were discussed with the patient. All questions were answered, and informed consent was obtained. Prior Anticoagulants: The patient has taken Coumadin (warfarin), last dose was 5 days prior to procedure. ASA Grade Assessment: Per anesthesia. After reviewing the risks and benefits, the patient was deemed in satisfactory condition to undergo the procedure. After obtaining informed consent, the endoscope was passed under direct vision. Throughout the procedure, the patient's blood pressure, pulse, and oxygen saturations were monitored continuously. The Endoscope was introduced through the mouth, and advanced to the second part of duodenum. The upper GI endoscopy was accomplished without difficulty. The patient tolerated the procedure well. Scope In: 7:34:04 AM Scope Out: 7:37:37 AM Total Procedure Duration Time 0 hours 3 minutes 33 seconds Findings: The Z-line was variable and was found 40 cm from the incisors. The examined duodenum was normal. The cardia and gastric fundus were normal on retroflexion. Mild inflammation with hemorrhage characterized by erythema was found in the gastric antrum with small amount of blood seen. Biopsies were taken with a cold forceps for histology. Biopsies were taken with a cold forceps for Helicobacter pylori cultures. Impression: - Z-line variable, 40 cm from the incisors. - Normal examined duodenum. - Gastritis with hemorrhage. Biopsied. Recommendation: - Await pathology results. - Discharge patient to home. - Resume previous diet. - Continue present medications. - Use Protonix (pantoprazole) 40 mg PO daily. Procedure Code(s): --- Professional --- 68069, Esophagogastroduodenoscopy, flexible, transoral; with biopsy, single or multiple Diagnosis Code(s): --- Professional --- K29.71, Gastritis, unspecified, with bleeding CPT copyright 2017 [employer]. All rights reserved. 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 MD Michelle Rinaldi MD 08/06/2021 8:22:41 AM This report has been signed electronically. Number of Addenda: 0 Note Initiated On: 08/06/2021 7:27 AM
--- NOTE | 2021-08-06 08:36 | OP.COLON_ITS ---
Patient Name: Elizabeth Henley Procedure Date: 08/06/2021 7:40 AM Date of : 1950 Age: 71 Procedure: Colonoscopy Indications: Positive Cologuard test Providers: Michelle Paige MD Medicines: Monitored Anesthesia Care Patient Profile: This is a 71 year old female. Last Colonoscopy: none. The patient's first colonoscopy is today. Complications: No immediate complications. Procedure: Pre-Anesthesia Assessment: - Prior to the procedure, a History and Physical was performed, and patient medications and allergies were reviewed. The patient's tolerance of previous anesthesia was also reviewed. The risks and benefits of the procedure and the sedation options and risks were discussed with the patient. All questions were answered, and informed consent was obtained. Prior Anticoagulants: The patient has taken Coumadin (warfarin), last dose was 5 days prior to procedure. ASA Grade Assessment: Per anesthesia. After reviewing the risks and benefits, the patient was deemed in satisfactory condition to undergo the procedure. After I obtained informed consent, the scope was passed under direct vision. Throughout the procedure, the patient's blood pressure, pulse, and oxygen saturations were monitored continuously. The pediatric colonoscope was introduced through the anus with the intention of advancing to the cecum. The scope was advanced to the proximal ascending colon before the procedure was aborted due to colon mass unable to discretely see ileocecal valve. The colonoscopy was performed without difficulty. The patient tolerated the procedure well. The quality of the bowel preparation was good. Scope In: 7:41:00 AM Scope Withdrawal Time 0 hours 11 minutes 19 seconds Scope Out: 8:12:18 AM Total Procedure Duration Time 0 hours 31 minutes 18 seconds Findings: The perianal and digital rectal examinations were normal. A frond-like/villous partially obstructing mass was found in the proximal ascending colon. The mass was non-circumferential. The mass measured four cm in length. In addition, its diameter measured three mm. No bleeding was present. Biopsies were taken with a cold forceps for histology. Frozen biopsies also obtained The exam was otherwise without abnormality on direct and retroflexion views. Impression: - Likely malignant partially obstructing tumor in the proximal ascending colon. Biopsied. - The examination was otherwise normal on direct and retroflexion views. Recommendation: - Discharge patient to home. - Resume previous diet. - Continue present medications. - Await pathology results. - Perform a CT scan (computed tomography) of chest with contrast, abdomen with contrast and pelvis with contrast today. - Check liver enzymes (AST, ALT, alkaline phosphatase, bilirubin), hemogram with white blood cell count and platelets, electrolyte panel and CEA today. - Repeat colonoscopy is recommended. The colonoscopy date will be determined after pathology results from today's exam become available for review. Procedure Code(s): --- Professional --- 29340, Colonoscopy, flexible; with biopsy, single or multiple Diagnosis Code(s): --- Professional --- D49.0, Neoplasm of unspecified behavior of digestive system K56.690, Other partial intestinal obstruction R19.5, Other fecal abnormalities CPT copyright 2017 [employer] [employer]. All rights reserved. The codes documented in this report are preliminary and upon director food safety review may be revised to meet current compliance requirements. MD Michelle Rinaldi MD 08/06/2021 8:35:36 AM This report has been signed electronically. Number of Addenda: 0 Note Initiated On: 08/06/2021 7:40 AM
--- NOTE | 2021-08-06 08:37 | OP.CCLET_ITS ---
08/06/2021 Alejandro Rosales [address] [place] [address] Re : Colonoscopy procedure for Elizabeth Henley Dear Dr. Rosales This procedure was performed on Friday, August 06, 2021. My impressions and recommendations are as follows: Impressions : - Likely malignant partially obstructing tumor in the proximal ascending colon. Biopsied. - The examination was otherwise normal on direct and retroflexion views. Recommendations : - Discharge patient to home. - Resume previous diet. - Continue present medications. - Await pathology results. - Perform a CT scan (computed tomography) of chest with contrast, abdomen with contrast and pelvis with contrast today. - Check liver enzymes (AST, ALT, alkaline phosphatase, bilirubin), hemogram with white blood cell count and platelets, electrolyte panel and CEA today. - Repeat colonoscopy is recommended. The colonoscopy date will be determined after pathology results from today's exam become available for review. My findings are described in the full procedure note, which is enclosed. If I can be of further assistance, please feel free to contact me at Doctor phone number(s): , Work: . Sincerely, MD Michelle Rinaldi MD 08/06/2021 8:35:36 AM This report has been signed electronically.
[2021-08-06 09:14] LABS: Absolute Lymphocyte Count 1.53 X10^3/uL (0.83-4.51); Absolute Neutrophil Count 6.7 X10^3/uL (2.0-7.7); Basophil# 0.02 X10^3/uL; Basophil% 0.2 % (0-1); Eosinophil# 0.04 X10^3/uL; Eosinophils% 0.4 % (0-5); Hematocrit 29.6 % (37-47); Lymphocyte # 1.53 X10^3/ul (0.83-4.51); Lymphocyte % 17.2 % (19-41); Mean Corpuscular Hgb 20.1 pg (27.0-32.0); Mean Corpuscular Volume 74.2 fL (81-99); Mean Platelet Vol. 9.5 fl (6.2-12.0); Monocyte# 0.62 X10^3/uL; NRBC Flagged by Analyzer 0 % (0-5); Neutrophil # 6.67 X10^3/uL (2.7-7.7); Neutrophil % 74.9 % (47-70); POSITIVE COUNT YES; RBC Distribution Width CV 17.2 % (11.6-14.6); RBC Distribution Width SD 45.9 fl (35.1-43.9); Red Blood Count 3.99 M/mm3 (4.2-5.4); White Blood Count 8.9 K/mm3 (4.4-11.0)
[2021-08-06 09:29] LABS: AST(SGOT) 10 U/L (15-37); Alanine Aminotransfer ALT/SGPT 9 U/L (13-56); Albumin, Serum 2.9 g/dL (3.2-5.0); Alkaline Phosphatase 88 U/L (45-117); Bilirubin, Direct 0.18 mg/dL (0.00-0.30); Globulin 4.5 g/dL (2.2-4.2); Protein, Total 7.4 g/dL (6.4-8.2)
[2021-08-06 09:31] LABS: Anion Gap 7 (5-15); BUN 10 mg/dL (7-18); BUN/Creat Ratio 9.7 RATIO (10-20); Calcium,Total 9.3 mg/dL (8.5-10.1); Chloride 99 mmol/L (98-107); Creatinine, Serum 1.03 mg/dL (0.55-1.02); EST Glomerular Filtration Rate 56 mL/min (>60); Est Glom Filt Rate - Afr Amer 68 mL/min (>60); Estimated Creatinine Clearance 44.51 ml/min; Glucose 117 mg/dL (74-106); Sodium Level 137 mmol/L (136-145)
[2021-08-06 09:54] LABS: Differential Indicated SCAN CRITERIA MET
[2021-08-06 09:55] LABS: Platelet Estimate ADEQUATE (ADEQ)
[2021-08-06] MEDS: Potassium Chloride Oral Tablet 20 MEQ 40 MEQ PO (11:25)
--- NOTE | 2021-08-06 11:45 | CT_ITS ---
STUDY: CT CHEST, ABDOMEN T PELVIS WITH CONTRAST REASON FOR EXAM: Female, 71 years old. Colonic mass. Recent diagnosis. RADIATION DOSAGE (If Supplied By Facility): CTDIvol = ( 21.13 ) mGy, DLP = ( 2225.70 ) mGycm TECHNIQUE: Transaxial imaging was performed following intravenous administration of Oral and amp; IV Gastrografin and amp; 100mL Isovue-300. Individualized dose optimization techniques were used for this CT. COMPARISON: No relevant priors. FINDINGS: CHEST Mild degree of bilateral apical scarring. There is no demonstrated pleural abnormality. There are calcifications of the coronary arteries. Normal mediastinum. Normal hilar regions. Normal unenhanced pulmonary arteries. Normal aorta arch and descending thoracic aorta. Normal osseous structures. There is no demonstrated abnormality of the visualized upper abdomen. ABDOMEN The visualized lung bases are unremarkable. Coronary artery calcification. There is decreased attenuation of the liver consistent with steatosis. The patient is status post cholecystectomy. Normal spleen. Normal pancreas. Normal bilateral adrenal glands. Lobular contour of both kidneys suggestive of a several areas of the cortical scarring most likely secondary to prior chronic pyelonephritis. There is a small hiatal hernia. Normal small intestine. There is a 7.1 cm x 7.4 cm solid mass in the distal descending colon extending to the hepatic flexure. Apple core lesion is seen. Mild increased markings in the surrounding peritoneal fat. This is in keeping with the adenocarcinoma of the colon. The appendix is visualized and appears normal. There is diffuse atherosclerotic calcification of the abdominal aorta, without a demonstrated aneurysm. Normal inferior vena cava. Normal retroperitoneum. Normal abdominal wall. There are degenerative changes of the visualized lumbar spine. PELVIS Normal urinary bladder. The patient is status post hysterectomy. There is no pelvic fluid. There is no pelvic lymphadenopathy or mass lesion. Normal visualized pelvic arteries. CT/CT Chest, Abd, Pel w/Contrast IMPRESSION: 7.17 x 7.4 cm solid mass causing apple core type lesion in the distal descending colon abutting the hepatic flexure incomplete with an adenocarcinoma. Diffuse fatty infiltration of the liver. Electronically Signed: Riki Singer MD at 12:45 EST , Service support ,
[2021-08-07 17:55] LABS: Carcinoembryonic Antigen 20.3 ng/mL (0.0-4.7)
== END 2021-08-06 23:59 | disposition home or self-care (01) ==
LOC: EN 06:19 → AC 06:22
PROVIDERS: PCP Family Medicine; Referring Provider Family Medicine; Visit Provider Surgery
PROC: 0DJD8ZZ Inspection of Lower Intestinal Tract, Via Natural or Artificial Opening Endoscopic (ICD-10-PCS; CPT 45378; principal; 2021-08-06 07:25)
DX: C18.2 Malignant neoplasm of ascending colon (principal); J44.9 Chronic obstructive pulmonary disease, unspecified; I11.0 Hypertensive heart disease with heart failure; I50.42 Chronic combined systolic (congestive) and diastolic (congestive) heart failure; I73.9 Peripheral vascular disease, unspecified; K56.690 Other partial intestinal obstruction; K29.71 Gastritis, unspecified, with bleeding; Z80.0 Family history of malignant neoplasm of digestive organs; Z87.891 Personal history of nicotine dependence; Z79.01 Long term (current) use of anticoagulants; Z86.73 Personal history of transient ischemic attack (TIA), and cerebral infarction without residual deficits; Z79.899 Other long term (current) drug therapy; Q21.1 Atrial septal defect; F32.A Depression, unspecified; M19.90 Unspecified osteoarthritis, unspecified site; E03.9 Hypothyroidism, unspecified
CPT/HCPCS: 43239; 36415; 36416; 71260; 74177; 80048; 80076; 82378; 84439; 84443; 85025; 85610; 86850; 86900; 86901; 86920; 86922; 88305; 88331; 88341; 88342; J7120; Q9967; A4216; A4648; J2405

== ENCOUNTER 2021-08-06 17:04 | Outpatient (CLI) | payer MEDICARE, OTHER, SELFPAY ==
[2021-08-06 18:08] LABS: T4 Free Direct 1.14 ng/dL (0.76-1.46); Thyroid Stim Hormone (TSH) 8.14 uIU/mL (0.358-3.74)
== END 2021-08-06 23:59 | disposition short-term general hospital (02) ==
PROVIDERS: PCP Family Medicine; Referring Provider Surgery; Visit Provider Surgery
DX: E03.9 Hypothyroidism, unspecified (principal)
CPT/HCPCS: 36415; 84439; 84443

== ENCOUNTER 2021-08-07 08:17 | Outpatient (CLI) | payer MEDICARE, OTHER, SELFPAY ==
[2021-08-07] VITALS (7 sets, daily range): BP systolic 113–123; BP diastolic 41–68; PULSE 63–84; RESP 16–18; TEMP 36.1–37; O2SAT 90–95
[2021-08-07] MEDS: 0.9% NaCl Peripheral Flush Adult/Peds IV (09:00)
== END 2021-08-07 23:59 | disposition short-term general hospital (02) ==
LOC: MEDOUTP 08:18
PROVIDERS: PCP Family Medicine; Referring Provider Surgery; Visit Provider Surgery
DX: D64.9 Anemia, unspecified (principal)
CPT/HCPCS: 36430; 86850; 86900; 86901; 86920; 86922; J7040; P9016; A4216

== ENCOUNTER 2021-08-09 16:34 | Outpatient (CLI) | payer MEDICARE, OTHER, SELFPAY ==
[2021-08-09 17:09] LABS: Hematocrit 33.2 % (37-47); Hemoglobin 9.6 g/dL (12.0-15.0)
== END 2021-08-09 23:59 | disposition short-term general hospital (02) ==
LOC: LAB 16:37
PROVIDERS: PCP Family Medicine; Referring Provider Surgery; Visit Provider Surgery
DX: D64.9 Anemia, unspecified (principal)
CPT/HCPCS: 36415; 85014; 85018

== ENCOUNTER 2021-08-14 12:55 | Outpatient (CLI) | payer MEDICARE, OTHER, SELFPAY ==
[2021-08-14 13:28] VITALS: BP 114/86; PULSE 89; RESP 16; TEMP 36; O2SAT 97; BMI 44.6
[2021-08-14 14:01] VITALS: BP 109/53; PULSE 69; RESP 16; TEMP 35.8; O2SAT 98
[2021-08-14 15:14] VITALS: BP 123/49; PULSE 63; RESP 16; TEMP 35.9; O2SAT 97
== END 2021-08-14 23:59 | disposition short-term general hospital (02) ==
LOC: MEDOUTP 12:55
PROVIDERS: PCP Family Medicine; Referring Provider Surgery; Visit Provider Surgery
DX: D64.9 Anemia, unspecified (principal)
CPT/HCPCS: 36430; 86850; 86900; 86901; 86920; 86922; J7040; P9016; A4216

== ENCOUNTER 2021-08-17 11:06 | Inpatient (IN) | payer MEDICARE, OTHER, SELFPAY ==
--- NOTE | 2021-08-14 14:24 | EKG12_ITS ---
Test Reason : PREOP Blood Pressure : / mmHG Vent. Rate : 063 BPM Atrial Rate : 050 BPM P-R Int : 000 ms QRS Dur : 084 ms QT Int : 404 ms P-R-T Axes : 000 095 009 degrees QTc Int : 413 ms Atrial fibrillation Low voltage QRS Abnormal ECG Confirmed by LUTHER HERNÁNDEZ, DAVINA ([id number]), production editor MICHELLE OJEDA ([id number]) on 08/15/2021 10:08:25 AM Referred By: GLENDA Confirmed By:DAVINA SLOAN MD
[2021-08-15 14:49] LABS: Hematocrit 38.6 % (37-47); Mean Corp Hgb Conc 28.5 g/dL (32-36); Mean Corpuscular Volume 77.2 fL (81-99); Mean Platelet Vol. 9.5 fl (6.2-12.0); Platelet Count 379 K/mm3 (150-450); RBC Distribution Width SD 55.7 fl (35.1-43.9); White Blood Count 9.9 K/mm3 (4.4-11.0)
[2021-08-15 15:28] LABS: Anion Gap 7 (5-15); BUN 20 mg/dL (7-18); BUN/Creat Ratio 21.8 RATIO (10-20); Calcium,Total 9.3 mg/dL (8.5-10.1); Chloride 97 mmol/L (98-107); Creatinine, Serum 0.92 mg/dL (0.55-1.02); EST Glomerular Filtration Rate 64 mL/min (>60); Est Glom Filt Rate - Afr Amer 78 mL/min (>60); Glucose 122 mg/dL (74-106); Potassium 3.6 mmol/L (3.5-5.1); Sodium Level 136 mmol/L (136-145)
[2021-08-17] VITALS (13 sets, daily range): BP systolic 104–125; BP diastolic 48–71; PULSE 62–84; RESP 16–18; TEMP 36.1–36.7; O2SAT 3–100; BMI 42.0; BMI 44.1
--- NOTE | 2021-08-17 | COL._PTH ---
PATIENT: YAMILE RODRIGUEZ LOC: MS2 U#:[id number] AGE/SX: 71/F ROOM: [facility] RE08/17/[address]: Dr. Alejandro Ellison DO : 1950 BED: 1 DIS: 08/22/2021 SPEC #: [id number] RECD: 08/20/21 11:55 STATUS: BALDOMERO REDelonte #: [id number] JEO: 08/17/21 00:[address]: Michelle Paige DEPT: SURGICAL PATHOLOGY RECD BY: Fareed Roberts ENTERED: 08/20/21 12:38 SP TYPE: COLON OTHR DR: DO Dr. Alejandro Lai MD Dr. Nana Yaa Koram, MD Dr. Natthavat Tanphaichitr, MD Dr. 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 22 out of 22 lymph nodes, negative for metastatic carcinoma. Appendix, focal hyperplastic changes. Small intestinal and colonic donut, no pathologic diagnosis. See cancer summary in the comment section. SJ:diana 08/23/2021 COMMENT COLON CANCER SUMMARY Procedure: Right hemicolectomy Tumor site: Right (ascending) colon Tumor size: 13 x 7 x 3 cm Macroscopic tumor perforation: Not identified Histologic type: Adenocarcinoma with extensive mucinous differentiation. Histologic grade: G1 (well differentiated) Tumor extension: Tumor invades through muscularis propria into pericolonic tissue. Margins: Margins are uninvolved by invasive carcinoma, high grade dysplasia, intramucosal carcinoma and adenoma. The tumor is 15 cm away from the distal resection margin and 13 cm away from the proximal margin. Treatment effect: No known presurgical therapy. 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 Tumor in the colectomy specimen does not show any presence of tubulovillous adenoma in the sections examined. Tumor deposits: Not identified Regional lymph nodes: Number of lymph nodes examined: 22 Number of lymph nodes involved: 0 Distant metastasis: No applicable Ancillary studies: Please make reference to previous specimen (S22-1 and RF22-2) Results of microsatellite instability are negative (no loss of mismatch repair of protein; no microsatellite instability detected). Additional pathologic findings: - Appendix, focal hyperplastic changes. - Colonic and small intestinal donut, no pathologic diagnosis. PATHOLOGIC STAGE: pT3 pN0 pMx The above summary is in compliance with [employer] (CAP) Cancer Protocols Checklist and [place] [employer] Committee on Cancer (AJCC), Staging Manual, 8th Ed. 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 Case has been reviewed in consultation with Dr. Almaguer who concurs with the above diagnosis. IDC:AM MICROSCOPIC DESCRIPTION Slides are reviewed. GROSS DESCRIPTION Received in fixative is one container labeled with the patient's name and designated right hemicolectomy. The specimen consists of a right hemicolectomy specimen consisting of cecum with ascending colon, transverse colon with attached pericolonic adipose tissue and omentum, segment of small intestine, mesentery and appendix. The cecum with ascending colon and transverse colon measures 24 cm in length, segment of small intestine measures 9 cm in length and appendix measures 8 cm in length and 1 cm in diameter. 15 cm away from the distal resection margin and 4 cm away from the ileocecal valve, there is a large ulcerated circumferential tumor mass measuring 13 x 7 x 3 cm. Mucoid material is also noted adjacent to the tumor mass. Also present in the container is a donut-shaped piece of tissue measuring 4 x 1.5 x 1 cm. The attached omentum measures 16 x 12 x 2 cm. More dictation will follow after fixation. The pericolonic adipose tissue is fixed in lymph node revealing solution. / KEV:diana 08/20/2021 Sections of the appendix do not reveal any mass lesion. Sections of the tumor reveal focal mucoidy cut surface. The tumor appears to involve full thickness of the bowel wall. Sections of tumor reveal a cystic area close to serosal surface measuring 2.5 cm in greatest dimension. Sections of the omentum do not reveal any mass lesion. Sections of pericolonic adipose tissue reveal multiple lymph nodes. The largest lymph node measures 1.5 cm in greatest dimension. Fitting Room Operator sections are submitted as follows: 1 - donut-shaped piece of tissue, 2 - resection margins, 3 & 4 - appendix, 5-9 - tumor (cassettes 5 & 6 contains the adjacent full thickness section of tumor with cystic area), 10 - ileocecal valve and large intestine, 11??small intestine and omentum, 12-24 - lymph nodes (12 - multiple lymph nodes, 13 - multiple lymph nodes, 14 - one serially sectioned lymph node, 15 - one serially sectioned lymph node, 16-22 - each cassette containing one bisected lymph node, 23 multiple lymph nodes, 24 - one bisected lymph node). The specimen is submitted after additional fixation. / KEV:diana 08/21/2021 TC:0 CPT: 69864, 17109
--- NOTE | 2021-08-17 08:34 | HP.PCM_ITS ---
History and Physical Date of Admission: 08/17/21 Date of Service: 08/13/21 MR#:[id number]: YAMILE RODRIGUEZ [facility] #:[id number]:[id number] Provider:Leeann Wilder/Sex: 71/F [facility] Intake Visit Reasons: Follow up colonoscopy, anemia Chief Complaint: positive cologuard, family history colon CA Allergies codeine Allergy (Severe, Verified 08/13/21 15:17) anaphylaxis Medications indapamide 2.5 mg PO DAILY 02/20/17 [History Confirmed 08/13/21] albuterol sulfate 90 mcg/actuation aerosol inhaler 2 puff INHALATION Q4H PRN g 12/09/18 [History Confirmed 08/13/21] fluticasone propionate 50 mcg/actuation nasal spray,suspension 1 spray INTRANASAL DAILY PRN 12/09/18 [History Confirmed 08/13/21] warfarin 5 mg tablet 5 mg PO QODAY 12/09/18 [History Confirmed 08/13/21] warfarin 3 mg tablet 3 mg PO QODAY 04/28/19 [History Confirmed 08/13/21] sacubitril 24 mg-valsartan 26 mg tablet 1 tab PO BID #180 tab 05/16/21 [Rx Confirmed 08/13/21] potassium citrate 5 mEq (540 mg) tablet,extended release 5 meq PO DAILY 07/24/21 [History Confirmed 08/13/21] pantoprazole 40 mg PO DAILY #30 tab 08/06/21 [Rx Confirmed 08/13/21] metronidazole 500 mg tablet 500 mg PO .COMPLEX #6 tab 08/13/21 [Rx Confirmed 08/13/21] neomycin 500 mg tablet 500 mg PO .COMPLEX #6 tab 08/13/21 [Rx Confirmed ] [facility] Medical History (Updated 08/13/21 @ 15:[address] Michelle Paige MD) Ambulates with cane Anemia Arthritis Atrial thrombus Bruising Cardiology follow-up encounter Chronic anticoagulation Chronic combined systolic and diastolic heart failure Colonic mass COPD (chronic obstructive pulmonary disease) CVA (cerebral vascular accident) (~2006) Depression Easy bruising Elevated TSH Essential hypertension Former smoker History of anxiety History of echocardiogram History of rheumatic fever as a child PAD (peripheral artery disease) PFO with atrial septal aneurysm Positive colorectal cancer screening using Cologuard test Shortness of breath on exertion Walker as ambulation aid Wears dentures Wears glasses Surgical History History of appendectomy History of cholecystectomy History of hysterectomy Family History Father Myocardial infarction Cancer lung CVA (cerebral vascular accident) Mother Colon cancer Brother Diabetes CAD (coronary artery disease) open heart surgery Social History Smoking Status: Former smoker how long ago did patient quit smokin years ago alcohol intake: never substance use type: does not use caffeine: Yes Type: tea Number of servings: 2 HPI HPI HPI: YAMILE RODRIGUEZ, is a 71 F who presents to the office today for discussion of surgery for colon cancer. 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 Work-up of the CT chest abdomen pelvis was completed did show about a 7 cm apple core lesion in the ascending colon. No other metastatic disease was seen according to report. On my read there was a tumor deposit that appears lateral to the colon mass. Patient did get 2 units of packed red blood cells due to hemoglobin of 8 after the colonoscopy currently hemoglobin is 9.6. We will plan for additional unit. Patient also had an elevated TSH patient is currently taking her thyroid medication ROS General General: Yes fatigue; No weight change, appetite, colon cancer, breast cancer or weakness HEENT HEENT: No difficulty swallowing, eye injury, eye surgery, swollen glands or hoarseness Endo Endocrine: Yes thyroid disease; No diabetes mellitus, thyroid cancer, Hair loss, heat intolerance or cold intolerance Musc Musculoskeletal: Yes arthritis; No back problems, rheumatoid arthritis, gout or joint pain Cardio Cardiovascular: Yes heart disease and high blood pressure; No murmur, pacemaker, atrial fibrillation, heart attack, heart stent, palpitations, shortness of breat with exertion or chest pain Psych Psychiatric: Yes depression and anxiety; No hearing voices Resp Respiratory: Yes shortness of breath, No sleep apnea, No cough, Yes COPD, No ast hma, No emphysema and No wheezing Gastro Gastrointestinal: No abdominal pain, No nausea or vomiting, No diarrhea, Yes constipation, No blood in stool, No acid reflux, No hemorrhoids, No ulcers, No gallbladder problem and No black,tarry stools [place] Hematologic: Yes blood thinners, No blood disorders, No bleeding, No anemia and No blood clots Neuro Neurologic: No weakness Exam Const General: cooperative, healthy appearing, comfortable and no acute distress Nutritional Appearance: obese Neck Neck: normal visual inspection Resp Effort & Inspection: normal respiratory effort Cardio Rate: regular rate GI Inspection: non-distended Palpation: soft, no guarding and nontender (non tender right side on palp but c/o deeper pain there no effected by palp) Skin General: no rashes or lesions noted Neuro General: patient oriented x3 Psych Affect: normal affect COVID (Procedure Consent) Procedure Criteria Procedure Criteria: Yes Elective The surgeon/proceduralist and patient have discussed in detail the risk of exposure to and/or potential harm posed by the COVID-19 virus with having a surgery/procedure at this time versus the risk of delaying the surgery/procedure. It is not possible to know either the risk of delaying the surgery or procedure or chance of getting an infection with perfect accuracy, but a joint decision was made between the patient and the surgeon/proceduralist to proceed at this time with the scheduled surgery/procedure as indicated on the consent form. Assessment and Plan Assessment and Plan (1) Ascending colon malignant neoplasm: Status: Acute (2) Chronic anticoagulation: Status: Acute (3) Anemia: Status: Acute (4) Elevated TSH: Status: Acute Orders: Orders: T&S with Crossmatch, Red Cells Today D64.9 Dr. Michelle Paige MD Plan - Dr. Michelle Paige MD: Did review CT abdomen pelvis with the patient and her daughter. There is a large colon mass in the ascending colon about 7 cm-apple core lesion. There also looks to be an additional tumor deposit lateral to that. Otherwise no other evidence of metastasis in the lung or liver seen. Patient will hold her Coumadin starting today we will plan for surgery Kulwinder a .m. Patient did receive 2 units packed red blood cells for hemoglobin 8 after colonoscopy repeat hemoglobin was 9.6?we will plan to give 1 additional unit prior to surgery. Addendum: Most recent hemoglobin 11 Patient is currently taking her levothyroxine medication prescribed by PCP due to her elevated TSH. Did discuss the anatomy and procedure: ERAs laparoscopic right colectomy, possible open with the patient. Including risks, but not limited to, bleeding, infection (superficial or intraabdominal), injury to another organ (small bowel, colon, ureter, etc.) requiring additional procedures, and blood clots. Also, discussed the pre-op, colon prep and antibiotics. All questions were answered. Encouraged patient to be taking protein drinks up until surgery and pos toperatively. Bowel prep okay for 1 day of clears but also take magnesium citrate 2 days prior to the prep. Greater than 50% of direct patient contact was spent in counseling or coordination of care. I spent 25 minutes counseling the patient colon cancer surgery, arranging for additional transfusion due to anemia and coordinating care. Michelle Paige M.D. Pager: [phone] [facility] [address] [place] [address], [address] [place] [address] Office: [phone] Plan Details Other Medications: New: metronidazole 500 mg PO Take 2 (two) tablets at 1300, 1500, 2300 6 tabs 0RF Tiarra KING PA-C neomycin Take two (2) 500 mg tablets PO at 1300, 1500, 2300 6 tabs 0RF pre-op antibiotics Tiarra KING PA-C Coding Level of Care Code Off vis,est,level 4 Diagnoses Ascending colon malignant neoplasm C18.2 Chronic anticoagulation Z79.01 Anemia D64.9 Elevated TSH R79.89 08/13/21 1546<Electronically signed by Michelle Paige MD>Date Michelle Paige MD
[2021-08-17 09:06] LABS: Bedside Glucose 182 mg/dL (70-110)
[2021-08-17] MEDS: Gabapentin 600 MG Tablet PO (09:27)
[2021-08-17] MEDS: Lactated Ringers 1,000 ML 40 ML IV ×2 (09:27→16:36)
[2021-08-17] MEDS: Acetaminophen 500 MG Tablet 1000 MG PO ×2 (09:27→21:11)
[2021-08-17 09:30] LABS: International Normalized Ratio 1.1; Prothrombin Time (Protime)PT. 13.9 SECONDS (11.7-14.9)
[2021-08-17] MEDS: Cefotetan 2 GM in 0.9% NS 100 ML IV (11:14)
[2021-08-17] MEDS: Bupivacaine 0.25% 30 ML Vial (14:00)
[2021-08-17] MEDS: BUPIVACAINE LIPOSOME/PF 20 ML VIAL OPERA.SITE (14:00)
--- NOTE | 2021-08-17 14:23 | PCM.OPRPT ---
Report of Operation Date of Procedure: 08/17/21 Pre-Operative Diagnosis: Ascending colon cancer Post-Operative Diagnosis: Same Surgery/Procedure Performed:: Laparoscopic converted to open right hemicolectomy Surgeon: Michelle Paige supervisor production department: Lin Cody Type of Anesthesia: General/Supplemental Anesthesiologist: Alex Decker Special Medications: Cefotetan 2 g IV x1 Specimen's removed: Right hemicolectomy Drains: fung- 200 cc Estimated Blood Loss (mL): 60 cc Fluids Replaced: 1800 cc Description of Procedure: Indications: this is a 71-year-old female who initially had a positive Cologuard test colonoscopy did show an ascending adenocarcinoma. Work-up did not show any obvious metastatic disease. Did appear to have a tumor deposit lateral to the mass per my read of the CAT scan. Laparoscopic right hemicolectomy, possible open was elected. Description procedure: The patient was placed on operating table in supine position. General Anesthesia was induced. Fung catheter was placed. A timeout was completed verifying correct patient, procedure, site, position and special equipment prior to beginning procedure. An orogastric tube and fung were placed. The abdomen was prepped and draped in usual sterile fashion. An incision was made in the natural skin line above the umbilicus. The fascia was elevated and incised. The peritoneum was elevated and incised. Entry into the peritoneum was confirmed visually and no bowel was noted in the vicinity of the incision. [place] Valle trocar was placed. The abdomen was insufflated with carbon dioxide to a pressure of 12-15 mmHg. Patient tolerated insufflation well. The laparoscope was then inserted and abdomen inspected. No injuries from initial trocar placement were noted. Additional trochars were then inserted in the following locations 5 mm trocar in the right lower quadrant and left lower quadrant. A tap block was done with 20 cc of Exparel, 50 cc of saline and 30 cc of Marcaine. This was done under laparoscopic visualization. The abdomen was inspected there is noted to be adhesions in the right upper quadrant as well as left lower quadrant to the abdominal wall which were mostly able to be carefully taken down with laparoscopic scissors and cautery. Next attention was turned to the takeoff of the ileocolic vessel however due to anatomy and visualization due to small bowel and location of the cecum in the right mid/upper quadrant decided to convert to laparotomy. 10 blade scalpel was used to enlarge the supraumbilical port site. Extra-large wound protector was placed. The table is placed in Trendelenburg position with the right side up. The omentum of the transverse colon and transverse colon was noted to be tethered in the left lower pelvis. First the omentum of the transverse colon was dissected from the left lower quadrant. Once that was cleared, the cecum was retracted medially and an incision was made along the white line of Toldt standing to the hepatic flexure. The mass was noted to be quite large and firm. The tattoo meneses were easily seen on the proximal aspect. The right branch of middle colic was identified and divided using the LigaSure Impact. The proximal ileocolic artery was isolated and suture tied with an 0 silk suture x2. The rest of the mesentery was divided using the LigaSure Impact. There was good hemostasis at the area of the ileocolic takeoff. The small bowel and colon was then divided using the MARZENA 75 stapler. The mesenteric dissection was completed as needed on the small bowel and colonic sides and the specimen resection was thus completed. The specimen was removed. The omentum attached to resect a portion of the colon was divided and resected with the specimen. The 2 ends of the ileum and transverse colon were then aligned, ensuring that the mesentery was not twisted, and the staple xgbu-xe-aryc anastomosis using the standard load-MARZENA 75 and TL 60. At 3-0 silk suture used for crotch stitch. 3-0 silk also used to oversew some oozing at staple line. The anastomosis was checked and was widely patent. The abdomen was irrigated with saline which was suctioned. Hemostasis was assured. The trochars removed under direct visualization. Once the wound protector was removed, gowns and gloves were changed. The midline incision was closed with 1-0 looped PDS suture at the fascia and then the skin was closed with skin chuck. Dry sterile dressings were applied. The sponge and instrument count were correct. The patient was extubated. The patient tolerated procedure well and was taken to the postanesthesia care unit in stable condition. Complications none
--- NOTE | 2021-08-17 15:24 | CON.PCM.HO_ITS ---
Assessment & Plan Assessment/Plan (1) Ascending colon malignant neoplasm: (2) Paroxysmal atrial fibrillation: PLAN: #Colon adenocarcinoma s/p right hemicolectomy * today is POD 0 * management as per general surgery * PT/OT consult * incentive spirometry * pain management as per general surgery * * #Atrial fibrillation with history of atrial thrombus * currently rate controlled * on coumadin, which is currently on hold as she just had surgery * coumadin to be resumed when ok with general surgery * #Chronic combined systolic and diastolic heart failure * on entresto. Not in exacerbation * on indapamide * #Hypertension: on indapamide. IV hydralazine prn #Hypothyroidism: on synthroid. DVT prophylaxis; lovenox, per general surgery the primary team. Thank you for the courtesy of the consult. Please contact hospitalist team with any questions or concerns. HPI Consult Data Date of Consult: 08/17/21 HPI Narrative HPI Narrative: YAMILE RODRIGUEZ, is a 71 F who was admitted to the service of general surgery for right hemicolectomy for colon cancer. She has a past medical history as outlined which includes high blood pressure and atrial fibrillation as well as chronic systolic and diastolic heart failure. Pathology shown an invasive adenocarcinoma in the ascending colon with no other evidence of metastatic disease. She had a right hemicolectomy on 08/17/2021. She was admitted to the medical floor afterwards and hospitalist service consulted for medical management. Patient seen in PACU after surgery. SHe had no complaints. Her pain was well controlled. She denied any cough, chest pain, shortness of breath, nausea or vomiting. Review of systems is otherwise negative. [facility] Medical History (Updated 08/15/21 @ 14:22 by Abhijeet Gerard [employer], [employer]-C) Ambulates with cane Anemia Arthritis Atrial thrombus Bruising Cancer Cardiology follow-up encounter Cardiology follow-up encounter Chronic anticoagulation Chronic combined systolic and diastolic heart failure Colonic mass COPD (chronic obstructive pulmonary disease) CVA (cerebral vascular accident) (~2006) Depression Easy bruising Elevated TSH Essential hypertension Former smoker History of anxiety History of echocardiogram History of rheumatic fever as a child PAD (peripheral artery disease) PFO with atrial septal aneurysm Positive colorectal cancer screening using Cologuard test Shortness of breath on exertion Walker as ambulation aid Wears dentures Wears glasses Home Medications indapamide 2.5 mg PO DAILY 02/20/17 [History Last Taken 08/17/21] albuterol sulfate 90 mcg/actuation aerosol inhaler 2 puff INHALATION Q4H PRN g 12/09/18 [History Last Taken 08/16/21] fluticasone propionate 50 mcg/actuation nasal spray,suspension 1 spray INTRANASAL DAILY PRN 12/09/18 [History Last Taken 08/16/21] warfarin 5 mg tablet 5 mg PO QODAY 12/09/18 [History Last Taken 08/12/21] warfarin 3 mg tablet 3 mg PO QODAY 04/28/19 [History Last Taken 08/12/21] potassium citrate 5 mEq (540 mg) tablet,extended release 5 meq PO DAILY 07/24/21 [History Last Taken 08/16/21] neomycin 500 mg tablet 500 mg PO .COMPLEX #6 tab 08/13/21 [Rx Last Taken 08/16/21] Entresto 1 tab PO BID 08/15/21 [History Last Taken 08/17/21] levothyroxine [Euthyrox] 88 mcg PO DAILY 08/15/21 [History Last Taken 08/17/21] metronidazole 500 mg PO .COMPLEX 08/15/21 [History Last Taken 08/16/21] pantoprazole 40 mg PO QHS 08/15/21 [History Last Taken 08/16/21] Allergy/AdvReac Type Severity Reaction Status Date / Time codeine Allergy Severe anaphylaxis Verified 08/17/21 09:19 Family History Father Myocardial infarction Cancer lung CVA (cerebral vascular accident) Mother Colon cancer Brother Diabetes CAD (coronary artery disease) open heart surgery Surgical History (Updated 08/15/21 @ 10:44 by Corine Zambrano) History of appendectomy History of cholecystectomy History of hysterectomy Hx of colonoscopy Social History Smoking Status: Former smoker how long ago did patient quit smokin years ago alcohol intake: never substance use type: does not use caffeine: Yes Type: tea Number of servings: 2 ROS Constitutional Constitutional: Denies anorexia, chills, fatigue, fever(s) or weakness Eyes Eyes: Reports blurry vision; Denies change in vision ENT HEENT: Denies dysphagia, ear pain, headache(s), nasal congestion or nasal discharge Cardiovascular Cardiovascular: Denies chest pain, dyspnea on exertion, edema, lightheadedness, orthopnea, palpitations, paroxysmal nocturnal dyspnea or rapid heart rate Respiratory/Chest Respiratory/Chest: Denies cough, productive cough, shortness of breath at rest or shortness of breath with exertion Gastrointestinal Gastrointestinal: Denies abdominal pain, constipation, diarrhea, nausea or vomiting Genitourinary Genitourinary: Denies burning urination or dysuria Musculoskeletal Musculoskeletal: Denies arthralgias Neurologic Neurologic: Denies confusion or focal weakness Psychiatric Psychiatric: Denies anxiety or depression Endocrine Endocrinology: Denies change in body appearance Hematologic/Lymphatic Hematologic/Lymphatic: Denies anemia Allergic/Immunologic Allergic/Immunologic: Denies asthma Physical Exam Const alert, oriented x3 and no apparent distress General Appearance: cooperative HEENT normocephalic, head/scalp atraumatic, hearing grossly normal bilaterally and moist oral mucous membranes Eyes PERRL, EOMs intact bilaterally and conjunctivae normal Neck no lymphadenopathy, supple and no JVD Resp normal respiratory effort and clear to auscultation bilaterally Cardio regular rate, regular rhythm, S1 normal heart sound, S2 normal heart sound and no murmurs GI normal to inspection, nondistended, normoactive bowel sounds and soft to palpation GI Narrative: abdominal dressing over surgical site Extremity normal to inspection, full ROM and no clubbing, cyanosis or edema Skin no rashes or lesions noted Neuro oriented x3, CN's II-XII intact bilaterally and moves all extremities Sensorium / Orientation: awake and alert Psych affect normal Lab / Micro Data Result Diagrams: 08/15/21 14:02 08/15/21 14:02 Labs: Laboratory Results - last 24 hr 08/17/21 08:57: POC Glucose 182 H 08/17/21 09:15: PT 13.9, INR 1.1 Charges/Coding Visit Charges Office Visits / Consults: 90632 IP Consult L3
[2021-08-17 15:50] LABS: Bedside Glucose 168 mg/dL (70-110)
[2021-08-17 15:54] LABS: Absolute Lymphocyte Count 0.35 X10^3/uL (0.83-4.51); Absolute Neutrophil Count 12.7 X10^3/uL (2.0-7.7); Basophil# 0.03 X10^3/uL; Basophil% 0.2 % (0-1); Hemoglobin 10.7 g/dL (12.0-15.0); Lymphocyte # 0.35 X10^3/ul (0.83-4.51); Lymphocyte % 2.6 % (19-41); Mean Corp Hgb Conc 29.7 g/dL (32-36); Mean Corpuscular Hgb 22.8 pg (27.0-32.0); Mean Corpuscular Volume 76.8 fL (81-99); Mean Platelet Vol. 9.6 fl (6.2-12.0); Monocyte% 3.7 % (0-10); NRBC Flagged by Analyzer 0 % (0-5); Neutrophil # 12.66 X10^3/uL (2.7-7.7); Neutrophil % 93.1 % (47-70); POSITIVE DIFFERENTIAL YES; POSITIVE MORPHOLOGY YES; Platelet Count 362 K/mm3 (150-450); RBC Distribution Width CV 20.6 % (11.6-14.6); RBC Distribution Width SD 56.7 fl (35.1-43.9); Red Blood Count 4.69 M/mm3 (4.2-5.4); White Blood Count 13.6 K/mm3 (4.4-11.0)
[2021-08-17 16:29] LABS: Differential Indicated SCAN CRITERIA MET
[2021-08-17 16:35] LABS: Anion Gap 6 (5-15); BUN 16 mg/dL (7-18); BUN/Creat Ratio 11.5 RATIO (10-20); Calcium,Total 8.7 mg/dL (8.5-10.1); Chloride 99 mmol/L (98-107); Creatinine, Serum 1.39 mg/dL (0.55-1.02); EST Glomerular Filtration Rate 40 mL/min (>60); Est Glom Filt Rate - Afr Amer 48 mL/min (>60); Estimated Creatinine Clearance 32.99 ml/min; Glucose 180 mg/dL (74-106); Sodium Level 134 mmol/L (136-145)
[2021-08-17] MEDS: 0.9% Normal Saline 1,000 ML 999 ML IV (16:51)
[2021-08-17 17:38] LABS: Anisocytosis 1+; Differential Comment SCANNED
[2021-08-17] MEDS: 0.9% Normal Saline 1,000 ML 75 ML IV (17:52)
[2021-08-17] MEDS: Enoxaparin 40 MG/0.4 ML Syringe SC (17:52)
[2021-08-17] MEDS: SACUBITRIL/VALSARTAN 24/26 MG TABLET 1 EACH PO (21:11)
[2021-08-17] MEDS: Pantoprazole Sodium 40 MG Tablet PO (21:11)
[2021-08-18] VITALS (12 sets, daily range): BP systolic 106–121; BP diastolic 46–59; PULSE 60–74; RESP 16–18; TEMP 36.3–36.8; O2SAT 94–100; BMI 42.0
[2021-08-18] MEDS: Acetaminophen 500 MG Tablet 1000 MG PO ×4 (02:47→21:15)
[2021-08-18] MEDS: 0.9% Normal Saline 1,000 ML 75 ML IV ×2 (04:44→17:25)
[2021-08-18] MEDS: Levothyroxine 88 MCG Tablet PO (04:44)
[2021-08-18 04:57] LABS: Hematocrit 37.2 % (37-47); Hemoglobin 10.5 g/dL (12.0-15.0); Mean Corp Hgb Conc 28.2 g/dL (32-36); Mean Corpuscular Hgb 22.3 pg (27.0-32.0); Mean Platelet Vol. 9.8 fl (6.2-12.0); POSITIVE MORPHOLOGY YES; Platelet Count 348 K/mm3 (150-450); RBC Distribution Width CV 20.5 % (11.6-14.6); RBC Distribution Width SD 57.4 fl (35.1-43.9); Red Blood Count 4.71 M/mm3 (4.2-5.4); White Blood Count 12.3 K/mm3 (4.4-11.0)
[2021-08-18 05:13] LABS: Scan Indicated on CBC? Y/N YES- FLAGS NOTED
[2021-08-18 05:17] LABS: Anion Gap 6 (5-15); BUN 13 mg/dL (7-18); BUN/Creat Ratio 12.6 RATIO (10-20); Calcium,Total 8.5 mg/dL (8.5-10.1); Chloride 98 mmol/L (98-107); Creatinine, Serum 1.03 mg/dL (0.55-1.02); EST Glomerular Filtration Rate 56 mL/min (>60); Est Glom Filt Rate - Afr Amer 68 mL/min (>60); Estimated Creatinine Clearance 44.51 ml/min; Glucose 201 mg/dL (74-106); Potassium 4.8 mmol/L (3.5-5.1); Sodium Level 130 mmol/L (136-145)
[2021-08-18 05:45] LABS: Differential Comment SCANNED
[2021-08-18] MEDS: POTASSIUM CITRATE 5 MEQ TABLET.ER PO (08:52)
[2021-08-18] MEDS: Enoxaparin 40 MG/0.4 ML Syringe SC (08:53)
[2021-08-18] MEDS: Docusate Sodium 100 MG Capsule PO (08:53)
[2021-08-18] MEDS: SACUBITRIL/VALSARTAN 24/26 MG TABLET 1 EACH PO ×2 (08:54→21:16)
[2021-08-18] MEDS: Indapamide 2.5 MG Tablet PO (08:55)
--- NOTE | 2021-08-18 10:52 | PN.HOSP_ITS ---
Subjective Subjective Patient seen and examined. She has no complaints and feels well. She denies any fever, chills, cough, chest pain, nausea or vomiting. Review of systems is otherwise negative. Objective Data Objective Data Vital Signs: Vital Signs Temp Pulse Resp BP Pulse Ox 97.3 F L 60 18 119/59 L 100 08/18/21 08:42 08/18/21 08:42 08/18/21 08:42 08/18/21 08:42 08/18/21 08:42 Oxygen Flow Rate (L/min) 2 Oxygen Delivery Method Venturi Mask Weight: 256 lb 13.416 oz Body Mass Index (BMI) 44.1 Intake & Output: Intake and Output for Last 24 Hours 08/16/21 08/17/21 08/18/21 23:59 23:59 23:59 Intake Total 2257.67 / 2457.67 1615 / 1615 Output Total 200 / 650 1050 / 1050 Balance 2057.67 / 1807.67 565 / 565 Lab / Micro Data Result Diagrams: 08/18/21 04:35 08/18/21 04:35 Labs: Laboratory Results - last 24 hr 08/17/21 15:38: WBC 13.6 H, RBC 4.69, Hgb 10.7 L, Hct 36.0 L, MCV 76.8 L, MCH 22.8 L, MCHC 29.7 L, RDW Std Deviation 56.7 H, RDW Coeff of Angela 20.6 H, Plt Count 362, MPV 9.6, Immature Gran % (Auto) 0.400, Neut % (Auto) 93.1 H, Lymph % (Auto) 2.6 L, [place] % (Auto) 3.7, Eos % (Auto) 0.0, Baso % (Auto) 0.2, Absolute Neuts (auto) 12.7 H, Absolute Lymphs (auto) 0.35 L, Nucleated RBC % 0, Differential Comment SCANNED, Anisocytosis 1+ 08/17/21 15:38: Sodium 134 L, Potassium 4.0, Chloride 99, Carbon Dioxide 29.0, Anion Gap 6, BUN 16, Creatinine 1.39 H, Estim Creat Clear Calc 32.99, Est GFR (MDRD) Af Amer 48 L, Est GFR (MDRD) Non-Af 40 L, BUN/Creatinine Ratio 11.5, Glucose 180 H, Calcium 8.7 08/17/21 15:46: POC Glucose 168 H 08/18/21 04:35: WBC 12.3 H, RBC 4.71, Hgb 10.5 L, Hct 37.2, MCV 79.0 L, MCH 22.3 L, MCHC 28.2 L D, RDW Std Deviation 57.4 H, RDW Coeff of Angela 20.5 H, Plt Count 348, MPV 9.8, Differential Comment SCANNED 08/18/21 04:35: Sodium 130 L, Potassium 4.8, Chloride 98, Carbon Dioxide 26.0, Anion Gap 6, BUN 13, Creatinine 1.03 H, Estim Creat Clear Calc 44.51, Est GFR (MDRD) Af Amer 68, Est GFR (MDRD) Non-Af 56 L, BUN/Creatinine Ratio 12.6, Glucose 201 H, Calcium 8.5 Physical Exam Const alert, oriented x3 and no apparent distress General Appearance: cooperative Exam Limitations: no limitations HEENT normocephalic, head/scalp atraumatic, hearing grossly normal bilaterally and moist oral mucous membranes Head and Scalp: normocephalic Eyes PERRL, EOMs intact bilaterally and conjunctivae normal Neck no lymphadenopathy, supple and no JVD Resp normal respiratory effort and clear to auscultation bilaterally Resp Narrative: on 2L of oxygen by nasal canula Cardio regular rate, regular rhythm, S1 normal heart sound, S2 normal heart sound and no murmurs GI normal to inspection, nondistended, normoactive bowel sounds and soft to palpation GI Narrative: abdominal dressing over surgical site Extremity normal to inspection, full ROM and no clubbing, cyanosis or edema Peripheral Pulses: Yes pulses 2+ throughout Skin no rashes or lesions noted Neuro oriented x3, CN's II-XII intact bilaterally and moves all extremities Sensorium / Orientation: awake and alert Psych affect normal Assessment & Plan Assessment/Plan (1) Ascending colon malignant neoplasm: (2) Paroxysmal atrial fibrillation: PLAN: #Colon adenocarcinoma s/p right hemicolectomy * today is POD 1 * management as per general surgery * PT/OT consult * incentive spirometry * pain management as per general surgery * * #Atrial fibrillation with history of atrial thrombus * currently rate controlled * on coumadin, which is currently on hold as she just had surgery * coumadin to be resumed when ok with general surgery * #Hyponatremia * sodium is down to 130 today from 134 yesterday * will hold indapamide. Hydrate very gently with IVF. * #Chronic combined systolic and diastolic heart failure * on entresto. Not in exacerbation * on indapamide, which will be held due to hyponatremia * #Hypertension: on indapamide.Hold o/a of hyponatremia. IV hydralazine prn #Hypothyroidism: on synthroid. DVT prophylaxis; lovenox, per general surgery the primary team. Thank you for the courtesy of the consult. Please contact hospitalist team with any questions or concerns. Charges/Coding Visit Charges Inpatient E&M: 35729 Subs Hosp L2
--- NOTE | 2021-08-18 11:25 | CASEMGMT ---
SHIRLEY ZAPATA Assessment: Face to Face with patient for initial transition planning/care coordination assessment. SHIRLEY ZAPATA introduced self and role at [facility], pt voices understanding and consents to assessment. Pt is sitting up in chair in no distress on room air. Pt is A/Ox4 and answers all questions appropriately. Care providers, pharmacy, and demographics verified. Presentation: Pt presented for laparoscopic right hemicolectomy for ascending colon cancer Admitting dx: Right hemicolectomy-laparoscopic was converted to open PCP: Bobby Specialists: valente Paige Pharmacy: [facility] Insurance: [employer] A/B, [employer] Prescription Benefit: Yes Living Will/HPOA: Pt has LW/HPOA and is aware that they are on file at [facility]. Pt's daughter, Melvina Toney, is HPOA. LNOK: Melvina Toney, daughter/HPOA Living Arrangements: Pt lives grandson in mobile home with no steps in and states no concerns at home. Pt is independent with ADL's. Transportation: Pt drives self and states no transportation concerns. DME/HHC: Pt states no current DME or need for any further DME. Pt states no hx of HHC or SNF. JASPREET consulted as pt became tearful as she states she has lost 5 family members in the last year, Jessie VOGEL aware and plans to stop in to speak with pt. Pt states daughter can assist with dressing change and declines need for HHC. Pt states no concerns with going home at time of discharge. Pt is retired. Pt states does not smoke cigarettes or drink ETOH. Pt states no further concerns/needs. CM to follow for any further discharge planning/needs. Advised pt to ask for CM if any further questions/concerns/needs arise, voices understanding. Pt Goal: Home Plan: Home. [place] SHIRLEY ZAPATA
[2021-08-18 11:47] LABS: BNP,B-Type NATRIURETIC PEPTIDE 174.4 pg/mL (0-100)
--- NOTE | 2021-08-18 11:52 | PCM.PN.SRG ---
Subjective Subjective Patient seen and examined during AM rounds. She is found sitting up in the chair and states that she has been there since 530 or 6:00. She denies any significant abdominal pain, but complains of gas pains. She is not yet passing flatus. She is tolerating her clear liquid diet without any nausea. Objective Data Objective Data Vital Signs: Vital Signs Temp Pulse Resp BP Pulse Ox 97.3 F L 60 18 119/59 L 100 08/18/21 08:42 08/18/21 08:42 08/18/21 08:42 08/18/21 08:42 08/18/21 08:42 Oxygen Flow Rate (L/min) 2 Oxygen Delivery Method Venturi Mask Weight: 256 lb 13.416 oz Body Mass Index (BMI) 44.1 Intake & Output: Intake and Output for Last 24 Hours 08/16/21 08/17/21 08/18/21 23:59 23:59 23:59 Intake Total 2257.67 / 2457.67 1615 / 1615 Output Total 200 / 650 1050 / 1050 Balance 2057.67 / 1807.67 565 / 565 Lab / Micro Data Result Diagrams: 08/18/21 04:35 08/18/21 04:35 Labs: Laboratory Results - last 24 hr 08/17/21 15:38: WBC 13.6 H, RBC 4.69, Hgb 10.7 L, Hct 36.0 L, MCV 76.8 L, MCH 22.8 L, MCHC 29.7 L, RDW Std Deviation 56.7 H, RDW Coeff of Angela 20.6 H, Plt Count 362, MPV 9.6, Immature Gran % (Auto) 0.400, Neut % (Auto) 93.1 H, Lymph % (Auto) 2.6 L, [place] % (Auto) 3.7, Eos % (Auto) 0.0, Baso % (Auto) 0.2, Absolute Neuts (auto) 12.7 H, Absolute Lymphs (auto) 0.35 L, Nucleated RBC % 0, Differential Comment SCANNED, Anisocytosis 1+ 08/17/21 15:38: Sodium 134 L, Potassium 4.0, Chloride 99, Carbon Dioxide 29.0, Anion Gap 6, BUN 16, Creatinine 1.39 H, Estim Creat Clear Calc 32.99, Est GFR (MDRD) Af Amer 48 L, Est GFR (MDRD) Non-Af 40 L, BUN/Creatinine Ratio 11.5, Glucose 180 H, Calcium 8.7 08/17/21 15:46: POC Glucose 168 H 08/18/21 04:35: WBC 12.3 H, RBC 4.71, Hgb 10.5 L, Hct 37.2, MCV 79.0 L, MCH 22.3 L, MCHC 28.2 L D, RDW Std Deviation 57.4 H, RDW Coeff of Angela 20.5 H, Plt Count 348, MPV 9.8, Differential Comment SCANNED 08/18/21 04:35: Sodium 130 L, Potassium 4.8, Chloride 98, Carbon Dioxide 26.0, Anion Gap 6, BUN 13, Creatinine 1.03 H, Estim Creat Clear Calc 44.51, Est GFR (MDRD) Af Amer 68, Est GFR (MDRD) Non-Af 56 L, BUN/Creatinine Ratio 12.6, Glucose 201 H, Calcium 8.5 08/18/21 04:35: B-Natriuretic Peptide 174.4 H Physical Exam Const oriented x3 and no apparent distress Resp normal respiratory effort GI GI Narrative: Mildly distended, operative dressing in place but there is no strikethrough drainage, patient is soft and appropriately tender to palpation about her incision Narrative: Moscoso catheter in place Assessment & Plan Assessment/Plan (1) S/P right hemicolectomy: PLAN: Patient postoperative day 1 from open right hemicolectomy with primary ileocolonic anastomosis. She is recovering well. She denies any significant postoperative discomfort. She has not yet really experienced return of bowel function but is tolerating her clear liquid diet. The oliguria that was of concern postoperatively, seems to have resolved. Patient is dealing with some persistent progressive hyponatremia; hospitalist service aware. Neuro: Scheduled acetaminophen 6 hours Pulm/CV: Supplemental O2 as needed, home antihypertensives FEN/GI: Monitor patient's hyponatremia and consider change of diuretic, continue clear liquid diet until patient experiences return of bowel function, Protonix Heme/ID: Continue monitoring of CBC, patient exhibits no evidence of postoperative hemorrhage Endo: Home Synthroid Proph: Prophylactic Lovenox Dispo: Continue inpatient care
--- NOTE | 2021-08-18 17:28 | CM.ED ---
JASPREET Note Referral Source: SHIRLEY ZAPATA Referral Reason: Multiple deaths of patients family members this year SW was advised by SHIRLEY ZAPATA that patient had been tearful this morning in reference to 5 family members dying. SW met with patient and present in the room was patient's daughter, Melvina. Patient advised that Melvina could stay in the room. Patient discussed the sudden passing of her and not wanting him to but seeing how he was deteriorating daily and not wanting that for him also. Patient said I know he is in a better place. Patient's brothers and brother in laws also last year. SW discussed hospice counseling as well as the counseling center. Daughter Melvina said that she did not think patient was deeply depressed. Patient said that she talks to her daughter, Melvina daily and Melvina's son resides with patient. Patient said that she also likes to be at home alone and by herself. SW explained that there are resources [facility] for [facility]avement counseling if she feels she would need them in the future. NO other issues or needs voiced. Plan: Community resources provided. Jessie PHILLIPS
[2021-08-18] MEDS: Pantoprazole Sodium 40 MG Tablet PO (21:17)
[2021-08-19] VITALS (8 sets, daily range): BP systolic 122–144; BP diastolic 62–85; PULSE 51–74; RESP 16–18; TEMP 36.3–36.9; O2SAT 93–97
[2021-08-19] MEDS: Acetaminophen 500 MG Tablet 1000 MG PO ×4 (03:06→21:56)
[2021-08-19 05:49] LABS: Absolute Lymphocyte Count 1.76 X10^3/uL (0.83-4.51); Absolute Neutrophil Count 9.9 X10^3/uL (2.0-7.7); Basophil# 0.03 X10^3/uL; Basophil% 0.2 % (0-1); Eosinophil# 0.02 X10^3/uL; Eosinophils% 0.2 % (0-5); Hematocrit 34.8 % (37-47); Hemoglobin 9.9 g/dL (12.0-15.0); Lymphocyte # 1.76 X10^3/ul (0.83-4.51); Lymphocyte % 13.5 % (19-41); Mean Corp Hgb Conc 28.4 g/dL (32-36); Mean Corpuscular Hgb 22.5 pg (27.0-32.0); Mean Corpuscular Volume 79.1 fL (81-99); Mean Platelet Vol. 10.1 fl (6.2-12.0); Monocyte# 1.31 X10^3/uL; NRBC Flagged by Analyzer 0 % (0-5); Neutrophil # 9.91 X10^3/uL (2.7-7.7); Neutrophil % 75.8 % (47-70); POSITIVE MORPHOLOGY YES; Platelet Count 338 K/mm3 (150-450); RBC Distribution Width CV 20.3 % (11.6-14.6); RBC Distribution Width SD 57.3 fl (35.1-43.9); White Blood Count 13.1 K/mm3 (4.4-11.0)
[2021-08-19 05:51] LABS: Differential Indicated SCAN CRITERIA MET
[2021-08-19 06:04] LABS: Anisocytosis 1+; Differential Comment SCANNED; Microcytosis 1+
[2021-08-19] MEDS: Ondansetron ODT 4 MG Tablet PO ×2 (06:05→11:33)
[2021-08-19] MEDS: Levothyroxine 88 MCG Tablet PO (06:05)
[2021-08-19 06:06] LABS: Anion Gap 5 (5-15); BUN 9 mg/dL (7-18); BUN/Creat Ratio 10.5 RATIO (10-20); Calcium,Total 8.6 mg/dL (8.5-10.1); Chloride 95 mmol/L (98-107); Creatinine, Serum 0.86 mg/dL (0.55-1.02); EST Glomerular Filtration Rate 70 mL/min (>60); Est Glom Filt Rate - Afr Amer 85 mL/min (>60); Estimated Creatinine Clearance 53.31 ml/min; Glucose 106 mg/dL (74-106); Phosphorus 2.5 mg/dL (2.5-4.9); Potassium 5.3 mmol/L (3.5-5.1); Sodium Level 129 mmol/L (136-145)
[2021-08-19] MEDS: Enoxaparin 40 MG/0.4 ML Syringe SC (08:12)
[2021-08-19] MEDS: Docusate Sodium 100 MG Capsule PO (08:12)
[2021-08-19] MEDS: Sodium Polystyrene Sulfonate 15 GM/60 ML UDC 30 GM PO (08:13)
--- NOTE | 2021-08-19 08:24 | PCM.PN.SRG ---
Subjective Subjective Examined during AM rounds. She is sitting up and out of bed to a chair. She states that she is having some mild postoperative discomfort (rated 4 out of 10) but that her acetaminophen is overall taking care of the discomfort. She reports small amount of gas and liquid bowel movement yesterday afternoon following our conversation, but nothing further. She states that she is having occasional burping, but denies any nausea in response to her clear liquid diet. Objective Data Objective Data Vital Signs: Vital Signs Temp Pulse Resp BP Pulse Ox 97.7 F L 71 18 122/65 H 94 08/19/21 08:11 08/19/21 08:11 08/19/21 08:11 08/19/21 08:11 08/19/21 08:11 Oxygen Flow Rate (L/min) 2 Oxygen Delivery Method Room Air Weight: 256 lb 13.416 oz Body Mass Index (BMI) 44.1 Intake & Output: Intake and Output for Last 24 Hours 08/17/21 08/18/21 08/19/21 23:59 23:59 23:59 Intake Total 2257.67 / 2457.67 2917.50 / 2917.50 Output Total 200 / 650 1950 / 1950 1750 / 1750 Balance 2057.67 / 1807.67 967.50 / 967.50 -1750 / -1750 Lab / Micro Data Result Diagrams: 08/19/21 05:35 08/19/21 05:35 Labs: Laboratory Results - last 24 hr 08/18/21 04:35: B-Natriuretic Peptide 174.4 H 08/19/21 05:35: Sodium 129 L, Potassium 5.3 H, Chloride 95 L, Carbon Dioxide 29.0, Anion Gap 5, BUN 9, Creatinine 0.86, Estim Creat Clear Calc 53.31, Est GFR (MDRD) Af Amer 85, Est GFR (MDRD) Non-Af 70, BUN/Creatinine Ratio 10.5, Glucose 106, Calcium 8.6, Phosphorus 2.5, Magnesium 2.0 08/19/21 05:35: WBC 13.1 H, RBC 4.40, Hgb 9.9 L, Hct 34.8 L, MCV 79.1 L, MCH 22.5 L, MCHC 28.4 L, RDW Std Deviation 57.3 H, RDW Coeff of Angela 20.3 H, Plt Count 338, MPV 10.1, Immature Gran % (Auto) 0.300, Neut % (Auto) 75.8 H, Lymph % (Auto) 13.5 L, [place] % (Auto) 10.0, Eos % (Auto) 0.2, Baso % (Auto) 0.2, Absolute Neuts (auto) 9.9 H, Absolute Lymphs (auto) 1.76, Nucleated RBC % 0, Differential Comment SCANNED, Anisocytosis 1+, Microcytosis 1+ Physical Exam Const oriented x3 and no apparent distress Resp normal respiratory effort GI GI Narrative: Mildly distended, appropriately tender to palpation in the right lower quadrant and about the incision. Incision remains covered with the operative dressing which there is no strikethrough Narrative: Moscoso catheter remains in place Assessment & Plan Assessment/Plan (1) S/P right hemicolectomy: PLAN: Patient postoperative day 2 from open right hemicolectomy with primary ileocolonic anastomosis. She is recovering well. She denies any significant postoperative discomfort. States she had a small bowel movement yesterday but no further passage of flatus and is still burping. Based on her exam of distention, concerned that she is experiencing postoperative ileus. Oliguria does appear resolved, but patient continues to place progressive hyponatremia and hyper kalemia. Hospitalist service advised holding diuretic yesterday and made aware of progression again today. Maintain Moscoso on account of these issues. Neuro: Scheduled acetaminophen 6 hours Pulm/CV: Supplemental O2 as needed, okay to DC continuous pulse ox, home antihypertensives, telemetry FEN/GI: Monitor patient's hyponatremia/hyperkalemia, Protonix, maintain a clear liquid diet until patient having more regular bowel function Heme/ID: Continue monitoring of CBC, patient exhibits no evidence of postoperative hemorrhage Endo: Home Synthroid Proph: Prophylactic Lovenox Dispo: Continue inpatient care Charges/Coding Visit Charges Inpatient E&M: 93447 Subs Hosp L2
[2021-08-19 08:49] LABS: Urine Sodium 52 mmol/L (Not Establ.)
[2021-08-19 09:51] LABS: Osmolality, Serum 275 mOsm/KG (280-301)
[2021-08-19 09:52] LABS: Osmolality, Urine 233 mOsm/KG
--- NOTE | 2021-08-19 10:02 | PN.HOSP_ITS ---
Subjective Subjective Patient seen and examined. She complains of abdominal bloating. She denies any lightheadedness, nausea or vomiting. Review of systems otherwise negative. Sodium noted to have dropped somewhat to 129 today. Review of systems otherwise negative. Potassium is also about 5.3. Objective Data Objective Data Vital Signs: Vital Signs Temp Pulse Resp BP Pulse Ox 97.7 F L 71 18 122/65 H 94 08/19/21 08:11 08/19/21 08:11 08/19/21 08:11 08/19/21 08:11 08/19/21 08:11 Oxygen Flow Rate (L/min) 2 Oxygen Delivery Method Room Air Weight: 256 lb 13.416 oz Body Mass Index (BMI) 44.1 Intake & Output: Intake and Output for Last 24 Hours 08/17/21 08/18/21 08/19/21 23:59 23:59 23:59 Intake Total 2257.67 / 2457.67 2917.50 / 2917.50 Output Total 200 / 650 1950 / 1950 2100 / 2100 Balance 2057.67 / 1807.67 967.50 / 967.50 -2100 / -2100 Lab / Micro Data Result Diagrams: 08/19/21 05:35 08/19/21 05:35 Labs: Laboratory Results - last 24 hr 08/18/21 04:35: B-Natriuretic Peptide 174.4 H 08/19/21 05:35: Sodium 129 L, Potassium 5.3 H, Chloride 95 L, Carbon Dioxide 29.0, Anion Gap 5, BUN 9, Creatinine 0.86, Estim Creat Clear Calc 53.31, Est GFR (MDRD) Af Amer 85, Est GFR (MDRD) Non-Af 70, BUN/Creatinine Ratio 10.5, Glucose 106, Calcium 8.6, Phosphorus 2.5, Magnesium 2.0 08/19/21 05:35: WBC 13.1 H, RBC 4.40, Hgb 9.9 L, Hct 34.8 L, MCV 79.1 L, MCH 22.5 L, MCHC 28.4 L, RDW Std Deviation 57.3 H, RDW Coeff of Angela 20.3 H, Plt Count 338, MPV 10.1, Immature Gran % (Auto) 0.300, Neut % (Auto) 75.8 H, Lymph % (Auto) 13.5 L, [place] % (Auto) 10.0, Eos % (Auto) 0.2, Baso % (Auto) 0.2, Absolute Neuts (auto) 9.9 H, Absolute Lymphs (auto) 1.76, Nucleated RBC % 0, Differential Comment SCANNED, Anisocytosis 1+, Microcytosis 1+ 08/19/21 08:35: Urine Osmolality 233, Ur Random Sodium 52 08/19/21 09:15: Serum Osmolality 275 L Physical Exam Const alert, oriented x3 and no apparent distress General Appearance: cooperative Exam Limitations: no limitations Nutritional Appearance: morbidly obese HEENT normocephalic, head/scalp atraumatic, hearing grossly normal bilaterally and moist oral mucous membranes Head and Scalp: normocephalic Eyes PERRL, EOMs intact bilaterally and conjunctivae normal Neck no lymphadenopathy, supple and no JVD Resp normal respiratory effort, no retractions, no use of accessory muscles and clear to auscultation bilaterally Resp Narrative: on room air Cardio regular rate, regular rhythm, S1 normal heart sound, S2 normal heart sound and no murmurs GI normal to inspection, nondistended, normoactive bowel sounds and soft to palpation GI Narrative: abdominal dressing over surgical site, few bowel sounds on auscultation Extremity normal to inspection, full ROM and no clubbing, cyanosis or edema Peripheral Pulses: Yes pulses 2+ throughout Skin no rashes or lesions noted Neuro oriented x3, CN's II-XII intact bilaterally and moves all extremities Sensorium / Orientation: awake and alert Psych affect normal Assessment & Plan Assessment/Plan (1) Ascending colon malignant neoplasm: (2) Paroxysmal atrial fibrillation: PLAN: #Colon adenocarcinoma s/p right hemicolectomy * today is POD 2. complains of abdominal bloating. * management as per general surgery * PT/OT consult * incentive spirometry * pain management as per general surgery * * #Atrial fibrillation with history of atrial thrombus * currently rate controlled * on coumadin, which is currently on hold as she just had surgery * coumadin to be resumed when ok with general surgery * #Hyponatremia and hyperkalemia * sodium is down to 129 today. Indapamide on hold * hold entresto o./a of hyperkalemia. * serum and urine osmolality checked today were 275 and 233. Urine sodium is 52. * these numbers fit with SIADH. Will restrict fluid to 1L. * nephrology consulted. * give kayexalate o/a of hyperkalemia. * #Chronic combined systolic and diastolic heart failure * entresto held o/a of hyperkalemia * #Hypertension: on indapamide.Hold o/a of hyponatremia. IV hydralazine prn #Hypothyroidism: on synthroid. DVT prophylaxis; lovenox, per general surgery the primary team. Thank you for the courtesy of the consult. Please contact hospitalist team with any questions or concerns. Charges/Coding Visit Charges Inpatient E&M: 47283 Subs Hosp L3
--- NOTE | 2021-08-19 11:20 | PCM.CONS.R ---
Assessment & Plan Assessment/Plan (1) Hyponatremia: PLAN: - Baseline serum sodium is normal on lab review. -The patient has mild hyponatremia without worrisome symptoms. There is no need for hypertonic saline today. -Suspect that hyponatremia is actually due to decreased effective blood volume/solute depletion due to decreased oral intake along with true volume depletion. -The patient had also been on thiazide diuretic up until today (last dose of indapamide was given yesterday morning). -Therefore, although SIADH is possible, we will need to make sure the patient is volume repleted first before making this diagnosis. -I will give her limited IV saline bolus since her solute intake will still be low on clear liquid diet. We will be careful with giving too much IV fluids since the patient has a history of HFpEF. -Agree with holding indapamide. -Recheck serum sodium tomorrow. If serum sodium fails to improve with saline bolus and holding thiazide diuretic today, I will check TSH and cortisol level to complete the work-up. Above plan is discussed with Dr. Castro (2) Hyperkalemia: PLAN: - The patient has mild hyperkalemia. This is also due to decreased effective blood volume in the setting of ARB and potassium citrate use. -Agree with stopping Entresto for now. -Stop potassium citrate for now. -Recheck potassium level tomorrow. (3) Essential hypertension: PLAN: - Thus far, BP is acceptable off of Entresto and indapamide. -Continue to monitor BP. (4) Hypothyroidism: PLAN: - The patient is on levothyroxine. -I have a low suspicion that hypothyroidism is contributing to the current hyponatremia. -However, if serum sodium fails to improve with treatment plan above, we will check TSH and cortisol level. (5) Ascending colon malignant neoplasm: PLAN: - Status post hemicolectomy on 08/17/2021. -Management as per general surgery service. HPI Consult Data Date of Consult: 08/19/21 HPI Narrative Reason for Consultation: Hyponatremia HPI Narrative: The patient is a 71-year-old woman with past history of hypertension, hypothyroidism, heart failure with preserved ejection fraction (EF 55% on most recent echocardiogram), paroxysmal atrial fibrillation on anticoagulation, and remote history of stroke in 2006. The patient was admitted on 08/17/2021 for hemicolectomy for treatment of ascending colon cancer. Nephrology was asked to see the patient because of progressive decrease in serum sodium concentration over the past 3 days. On presentation to the hospital, her serum sodium was 134 mmol/L. Serum sodium decreased to 130 mmol/L on 08/18/2021, and serum sodium is 129 mmol/L today. The patient denies headache, persistent nausea, confusion, or ataxia. She reports dull ache at the surgical incision site, but pain is tolerable. The patient had been on indapamide prior to admission. The last dose of indapamide was given to the patient on 08/18/2021. The patient has not been on NSAIDs. Of note, serum creatinine also increased to 1.39 mg/dL after surgery on 08/17/2021. However, renal function has improved, and serum creatinine is now 0.86 mg/dL today. FOR[facility]LY [facility], [facility] Medical History (Updated 08/19/21 @ 11:[address] Jethro Cooper MD) Ambulates with cane Anemia Arthritis Atrial thrombus Bruising Cancer Cardiology follow-up encounter Cardiology follow-up encounter Chronic anticoagulation Chronic combined systolic and diastolic heart failure Colonic mass COPD (chronic obstructive pulmonary disease) CVA (cerebral vascular accident) (~2006) Depression Easy bruising Elevated TSH Essential hypertension Former smoker History of anxiety History of echocardiogram History of rheumatic fever as a child PAD (peripheral artery disease) PFO with atrial septal aneurysm Positive colorectal cancer screening using Cologuard test Shortness of breath on exertion Walker as ambulation aid Wears dentures Wears glasses Home Medications indapamide 2.5 mg PO DAILY 02/20/17 [History Last Taken 08/17/21] albuterol sulfate 90 mcg/actuation aerosol inhaler 2 puff INHALATION Q4H PRN g 12/09/18 [History Last Taken 08/16/21] fluticasone propionate 50 mcg/actuation nasal spray,suspension 1 spray INTRANASAL DAILY PRN 12/09/18 [History Last Taken 08/16/21] warfarin 5 mg tablet 5 mg PO QODAY 12/09/18 [History Last Taken 08/12/21] warfarin 3 mg tablet 3 mg PO QODAY 04/28/19 [History Last Taken 08/12/21] potassium citrate 5 mEq (540 mg) tablet,extended release 5 meq PO DAILY 07/24/21 [History Last Taken 08/16/21] neomycin 500 mg tablet 500 mg PO .COMPLEX #6 tab 08/13/21 [Rx Last Taken 08/16/21] Entresto 1 tab PO BID 08/15/21 [History Last Taken 08/17/21] levothyroxine [Euthyrox] 88 mcg PO DAILY 08/15/21 [History Last Taken 08/17/21] metronidazole 500 mg PO .COMPLEX 08/15/21 [History Last Taken 08/16/21] pantoprazole 40 mg PO QHS 08/15/21 [History Last Taken 08/16/21] Allergy/AdvReac Type Severity Reaction Status Date / Time codeine Allergy Severe anaphylaxis Verified 08/17/21 09:19 Family History Father Myocardial infarction Cancer lung CVA (cerebral vascular accident) Mother Colon cancer Brother Diabetes CAD (coronary artery disease) open heart surgery Surgical History (Updated 08/18/21 @ 11:[address] Bakari Hill MD) History of appendectomy History of cholecystectomy History of hysterectomy Hx of colonoscopy Social History Smoking Status: Former smoker how long ago did patient quit smokin years ago alcohol intake: never substance use type: does not use caffeine: Yes Type: tea Number of servings: 2 ROS ROS Narrative 07/15 ROS was done. Review of systems is otherwise noncontributory. Physical Exam Narrative General: Alert and oriented x3, no apparent distress. HEENT: Normocephalic, atraumatic. Mucous membrane is dry. There is no mucosal erythema. PERRLA, EOMI, hearing is intact. Neck: Supple, no JVD. Heart: Normal S1, S2. No rubs, murmurs or gallops. Lungs: Clear to auscultation bilaterally. Abdomen: Normal bowel sound, soft, mild tenderness around incision on palpation. No guarding or rebound. Extremity: No clubbing, cyanosis, or edema. Skin: Some ecchymosis around the anterior lower extremities. Otherwise there is no rash. Skin is warm and dry. Musculoskeletal: Full passive range of motion. No joint swelling. Psychiatric: Normal mood and affect. Lab / Micro Data Result Diagrams: 08/19/21 05:35 08/19/21 05:35 Labs: Laboratory Results - last 24 hr 08/18/21 04:35: B-Natriuretic Peptide 174.4 H 08/19/21 05:35: Sodium 129 L, Potassium 5.3 H, Chloride 95 L, Carbon Dioxide 29.0, Anion Gap 5, BUN 9, Creatinine 0.86, Estim Creat Clear Calc 53.31, Est GFR (MDRD) Af Amer 85, Est GFR (MDRD) Non-Af 70, BUN/Creatinine Ratio 10.5, Glucose 106, Calcium 8.6, Phosphorus 2.5, Magnesium 2.0 08/19/21 05:35: WBC 13.1 H, RBC 4.40, Hgb 9.9 L, Hct 34.8 L, MCV 79.1 L, MCH 22.5 L, MCHC 28.4 L, RDW Std Deviation 57.3 H, RDW Coeff of Angela 20.3 H, Plt Count 338, MPV 10.1, Immature Gran % (Auto) 0.300, Neut % (Auto) 75.8 H, Lymph % (Auto) 13.5 L, [place] % (Auto) 10.0, Eos % (Auto) 0.2, Baso % (Auto) 0.2, Absolute Neuts (auto) 9.9 H, Absolute Lymphs (auto) 1.76, Nucleated RBC % 0, Differential Comment SCANNED, Anisocytosis 1+, Microcytosis 1+ 08/19/21 08:35: Urine Osmolality 233, Ur Random Sodium 52 08/19/21 09:15: Serum Osmolality 275 L
[2021-08-19] MEDS: Pantoprazole Sodium 40 MG Tablet PO (21:56)
--- NOTE | 2021-08-19 22:04 | PCS.PANDOC ---
PANDEMIC DOCUMENTATION INITIATED: Date: 08/19/2021 Time: 190
[2021-08-20] VITALS (9 sets, daily range): BP systolic 124–132; BP diastolic 59–79; PULSE 62–83; RESP 18; TEMP 36.3–36.6; O2SAT 92–96
[2021-08-20 06:04] LABS: Absolute Neutrophil Count 6.5 X10^3/uL (2.0-7.7); Basophil# 0.05 X10^3/uL; Basophil% 0.6 % (0-1); Eosinophil# 0.07 X10^3/uL; Eosinophils% 0.8 % (0-5); Hematocrit 34.9 % (37-47); Hemoglobin 9.9 g/dL (12.0-15.0); Lymphocyte % 15.9 % (19-41); Mean Corp Hgb Conc 28.4 g/dL (32-36); Mean Corpuscular Hgb 22.6 pg (27.0-32.0); Mean Corpuscular Volume 79.7 fL (81-99); Mean Platelet Vol. 9.9 fl (6.2-12.0); Monocyte# 0.81 X10^3/uL; Monocyte% 9.2 % (0-10); NRBC Flagged by Analyzer 0 % (0-5); Neutrophil # 6.46 X10^3/uL (2.7-7.7); POSITIVE MORPHOLOGY YES; Platelet Count 325 K/mm3 (150-450); RBC Distribution Width CV 20.2 % (11.6-14.6); RBC Distribution Width SD 58.1 fl (35.1-43.9); Red Blood Count 4.38 M/mm3 (4.2-5.4); White Blood Count 8.8 K/mm3 (4.4-11.0)
[2021-08-20 06:06] LABS: Differential Indicated SCAN CRITERIA MET
[2021-08-20 06:11] LABS: International Normalized Ratio 1.3; Prothrombin Time (Protime)PT. 15.1 SECONDS (11.7-14.9)
[2021-08-20 06:24] LABS: Anisocytosis 2+; Hypochromasia 1+
[2021-08-20] MEDS: Levothyroxine 88 MCG Tablet PO (06:38)
[2021-08-20 06:40] LABS: Albumin, Serum 2.3 g/dL (3.2-5.0); BUN 11 mg/dL (7-18); BUN/Creat Ratio 14.2 RATIO (10-20); Calcium,Total 8.7 mg/dL (8.5-10.1); Chloride 101 mmol/L (98-107); Creatinine, Serum 0.78 mg/dL (0.55-1.02); EST Glomerular Filtration Rate 78 mL/min (>60); Est Glom Filt Rate - Afr Amer 95 mL/min (>60); Estimated Creatinine Clearance 45.85 ml/min; Glucose 93 mg/dL (74-106); Phosphorus 2.7 mg/dL (2.5-4.9); Potassium 4.5 mmol/L (3.5-5.1); Sodium Level 132 mmol/L (136-145)
--- NOTE | 2021-08-20 07:51 | PCM.PN.SRG ---
Subjective Subjective Patient is tolerating clears but still having burping denies any flatus has had small amount of diarrhea with using the restroom. Patient denies abdominal pain. Patient has 1000 cc fluid restriction due to hyponatremia. Objective Data Objective Data Vital Signs: Vital Signs Temp Pulse Resp BP Pulse Ox 97.5 F L 76 18 125/64 H 92 08/20/21 04:25 08/20/21 05:01 08/20/21 04:25 08/20/21 04:25 08/20/21 07:23 Oxygen Flow Rate (L/min) 2 Oxygen Delivery Method Room Air Weight: 256 lb 13.416 oz Body Mass Index (BMI) 44.1 Intake & Output: Intake and Output for Last 24 Hours 08/18/21 08/19/21 08/20/21 23:59 23:59 23:59 Intake Total 2917.50 / 2917.50 1390.67 / 1390.67 50 / 50 Output Total 1950 / 1950 3400 / 3400 1000 / 1000 Balance 967.50 / 967.50 -2008.33 / -2008.33 -950 / -950 Lab / Micro Data Result Diagrams: 08/20/21 05:34 08/20/21 05:34 Labs: Laboratory Results - last 24 hr 08/19/21 08:35: Urine Osmolality 233, Ur Random Sodium 52 08/19/21 09:15: Serum Osmolality 275 L 08/20/21 05:34: Sodium 132 L, Potassium 4.5, Chloride 101, Carbon Dioxide 26.0, BUN 11, Creatinine 0.78, Estim Creat Clear Calc 45.85, Est GFR (MDRD) Af Amer 95, Est GFR (MDRD) Non-Af 78, BUN/Creatinine Ratio 14.2, Glucose 93, Calcium 8.7, Phosphorus 2.7, Albumin 2.3 L 08/20/21 05:34: WBC 8.8, RBC 4.38, Hgb 9.9 L, Hct 34.9 L, MCV 79.7 L, MCH 22.6 L, MCHC 28.4 L, RDW Std Deviation 58.1 H, RDW Coeff of Angela 20.2 H, Plt Count 325, MPV 9.9, Immature Gran % (Auto) 0.500, Neut % (Auto) 73.0 H, Lymph % (Auto) 15.9 L, [place] % (Auto) 9.2, Eos % (Auto) 0.8, Baso % (Auto) 0.6, Absolute Neuts (auto) 6.5, Absolute Lymphs (auto) 1.40, Nucleated RBC % 0, Hypochromasia 1+, Anisocytosis 2+ 08/20/21 05:34: PT 15.1 H, INR 1.3 Physical Exam Resp normal respiratory effort Cardio regular rate GI GI Narrative: Abdomen: Soft, nondistended, tender near incision's dressed clean dry and intact with chuck, no peritoneal signs Assessment & Plan Assessment/Plan (1) S/P right hemicolectomy: (2) Hyponatremia: (3) Hyperkalemia: PLAN: Postop day 3 status post right hemicolectomy due to colon cancer. Tolerating clears but still not having much flatus and is burping. Will await increased bowel function before advancing to transitional diet. Continue ambulation and out of bed to chair, will get abdominal binder Did restart Coumadin last night we will continue on her normal home dose of alternating 5 mg / 3 mg Appreciate medicine/nephrology's assistance with patient's hyponatremia and hyper kalemia--1000 cc fluid restriction per them Michelle Paige M.D. Pager: [phone] [facility] [address] [place] [address], [facility], [address] [place] [id number] Office: [phone]
[2021-08-20] MEDS: Acetaminophen 500 MG Tablet 1000 MG PO ×3 (10:46→21:43)
--- NOTE | 2021-08-20 11:51 | PN.RENAL_ITS ---
Subjective Subjective Up in chair, no complaints. Denies any nausea or vomiting. Denies diarrhea. Objective Data Objective Data Vital Signs: Vital Signs Temp Pulse Resp BP Pulse Ox 97.4 F L 80 18 132/64 H 93 08/20/21 10:25 08/20/21 10:25 08/20/21 10:25 08/20/21 10:25 08/20/21 10:25 Oxygen Flow Rate (L/min) 2 Oxygen Delivery Method Room Air Weight: 116.5 kg Body Mass Index (BMI) 44.1 Intake & Output: Intake and Output for Last 24 Hours 08/18/21 08/19/21 08/20/21 23:59 23:59 23:59 Intake Total 2917.50 / 2917.50 1390.67 / 1390.67 50 / 50 Output Total 1950 / 1950 3400 / 3400 1000 / 1000 Balance 967.50 / 967.50 -2009.33 / -2008.33 -950 / -950 Lab / Micro Data Result Diagrams: 08/20/21 05:34 08/20/21 05:34 Labs: Laboratory Results - last 24 hr 08/20/21 05:34: Sodium 132 L, Potassium 4.5, Chloride 101, Carbon Dioxide 26.0, BUN 11, Creatinine 0.78, Estim Creat Clear Calc 45.85, Est GFR (MDRD) Af Amer 95, Est GFR (MDRD) Non-Af 78, BUN/Creatinine Ratio 14.2, Glucose 93, Calcium 8. 7, Phosphorus 2.7, Albumin 2.3 L 08/20/21 05:34: WBC 8.8, RBC 4.38, Hgb 9.9 L, Hct 34.9 L, MCV 79.7 L, MCH 22.6 L , MCHC 28.4 L, RDW Std Deviation 58.1 H, RDW Coeff of Angela 20.2 H, Plt Count 325, MPV 9.9, Immature Gran % (Auto) 0.500, Neut % (Auto) 73.0 H, Lymph % (Auto) 15.9 L, [place] % (Auto) 9.2, Eos % (Auto) 0.8, Baso % (Auto) 0.6, Absolute Neuts (auto) 6.5, Absolute Lymphs (auto) 1.40, Nucleated RBC % 0, Hypochromasia 1+, Anisocytosis 2+ 08/20/21 05:34: PT 15.1 H, INR 1.3 Physical Exam Narrative General: Alert and oriented x3, no apparent distress. HEENT: Normocephalic, atraumatic. Mucous membrane is dry. Neck: Supple, no JVD. Heart: Normal S1, S2. No rubs, murmurs or gallops. Lungs: Clear to auscultation bilaterally. Abdomen: Normal bowel sounds Extremity: No clubbing, cyanosis, or edema. Assessment & Plan Assessment/Plan (1) Hyponatremia: PLAN: - Baseline serum sodium is normal on lab review. -The patient has mild hyponatremia without worrisome symptoms. There is no need for hypertonic saline today. -Suspect that hyponatremia is actually due to decreased effective blood volume/solute depletion due to decreased oral intake along with true volume depletion. -The patient had also been on thiazide diuretic -Therefore, although SIADH is possible, we will need to make sure the patient is volume repleted first before making this diagnosis. - sodium shahida 129. Today sodium 132, improved after small IVF bolus. No need for frequent sodium checks. No need for small fluid bolus today as patient reports appetite fair on liquid diet, no Nausea or vomiting. Urine sodium 52 -08/19 patient had limited IV saline bolus since her solute intake low on clear liquid diet. We will be careful with giving too much IV fluids since the patient has a history of HFpEF. -Agree with holding indapamide. Above plan is discussed with Dr. Castro (2) Hyperkalemia: PLAN: - The patient had mild hyperkalemia. K+ 4.5 now. This is also due to decreased effective blood volume in the setting of ARB and potassium citrate use. -Agree with stopping Entresto for now. -Stop potassium citrate for now. (3) Essential hypertension: PLAN: - Thus far, BP is acceptable off of Entresto and indapamide. -Continue to monitor BP. (4) Hypothyroidism: PLAN: - The patient is on levothyroxine. -I have a low suspicion that hypothyroidism is contributing to the current hyponatremia. -However, if serum sodium fails to improve with treatment plan above, we will check TSH and cortisol level. (5) Ascending colon malignant neoplasm: PLAN: - Status post hemicolectomy on 08/17/2021. -Management as per general surgery service.
--- NOTE | 2021-08-20 14:52 | PN.HOSP_ITS ---
Subjective Subjective Still with abdominal pain, but improved with binder. Objective Data Objective Data Vital Signs: Vital Signs Temp Pulse Resp BP Pulse Ox 36.3 C L 62 18 132/64 H 93 08/20/21 10:25 08/20/21 14:18 08/20/21 10:25 08/20/21 10:25 08/20/21 10:25 Oxygen Flow Rate (L/min) 2 Oxygen Delivery Method Room Air Weight: 116.5 kg Body Mass Index (BMI) 44.1 Intake & Output: Intake and Output for Last 24 Hours 08/18/21 08/19/21 08/20/21 23:59 23:59 23:59 Intake Total 2917.50 / 2917.50 1390.67 / 1390.67 50 / 50 Output Total 1950 / 1950 3400 / 3400 1400 / 1400 Balance 967.50 / 967.50 -2009.33 / -2008.33 -1350 / -1350 Lab / Micro Data Result Diagrams: 08/20/21 05:34 08/20/21 05:34 Labs: Laboratory Results - last 24 hr 08/20/21 05:34: Sodium 132 L, Potassium 4.5, Chloride 101, Carbon Dioxide 26.0, BUN 11, Creatinine 0.78, Estim Creat Clear Calc 45.85, Est GFR (MDRD) Af Amer 9 5, Est GFR (MDRD) Non-Af 78, BUN/Creatinine Ratio 14.2, Glucose 93, Calcium 8.7, Phosphorus 2.7, Albumin 2.3 L 08/20/21 05:34: WBC 8.8, RBC 4.38, Hgb 9.9 L, Hct 34.9 L, MCV 79.7 L, MCH 22.6 L , MCHC 28.4 L, RDW Std Deviation 58.1 H, RDW Coeff of Angela 20.2 H, Plt Count 325, MPV 9.9, Immature Gran % (Auto) 0.500, Neut % (Auto) 73.0 H, Lymph % (Auto) 15.9 L, [place] % (Auto) 9.2, Eos % (Auto) 0.8, Baso % (Auto) 0.6, Absolute Neuts (auto) 6.5, Absolute Lymphs (auto) 1.40, Nucleated RBC % 0, Hypochromasia 1+, Anisocytosis 2+ 08/20/21 05:34: PT 15.1 H, INR 1.3 Physical Exam Const alert and no apparent distress Resp normal respiratory effort, no retractions, no use of accessory muscles and clear to auscultation bilaterally Cardio regular rate, regular rhythm, S1 normal heart sound and S2 normal heart sound GI GI Narrative: distended, minimal tenderness. 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 IV hydralazine prn Hypothyroidism: on synthroid. DVT prophylaxis; lovenox, per general surgery the primary team. Charges/Coding Visit Charges Inpatient E&M: 08666 Subs Hosp L2
--- NOTE | 2021-08-20 16:32 | CHAPLAIN ---
Type of Pastoral Visit _x__ Initial Visit ___ Follow-up Visit ___ On-call Visit ___ General Patient Visit ___ Spiritual Assessment ___ Family Conference ___ Bereavement ___ Rapid Response ___ Code Blue ___ Other (describe below) Pastoral Care Referral From _x__ Patient ___ Family ___ Nurse ___ Physician ___ Bilingual Inside Sales Representative ___ Manufacturing Teacher ___ Other (describe below) Sacrament/Intervention _x__ Active listening ___ Anointing ___ Taoist ___ Bereavement ___ Communion ___ Jana exploration ___ _x__ Life review _x__ Prayer ___ Reconciliation ___ Sacrament of Sick _x__ Supportive presence ___ Wedding ___ Other (describe below) Pastoral Comments patient has had multiple and significant losses in the last year and grief was a topic of discussion and support; pt facing cancer diagnosis but has a good attitude and wants to live for her children; pt welcomes presence and prayer support
[2021-08-20] MEDS: Pantoprazole Sodium 40 MG Tablet PO (21:43)
[2021-08-20] MEDS: Docusate Sodium 100 MG Capsule PO (21:43)
[2021-08-21] VITALS (8 sets, daily range): BP systolic 118–134; BP diastolic 58–88; PULSE 52–77; RESP 18; TEMP 36.6–36.8; O2SAT 94–96
[2021-08-21] MEDS: Acetaminophen 500 MG Tablet 1000 MG PO ×3 (02:57→20:33)
[2021-08-21 04:52] LABS: International Normalized Ratio 1.7; Prothrombin Time (Protime)PT. 18.9 SECONDS (11.7-14.9)
[2021-08-21 05:09] LABS: Anion Gap 4 (5-15); BUN 9 mg/dL (7-18); BUN/Creat Ratio 11.6 RATIO (10-20); Calcium,Total 8.8 mg/dL (8.5-10.1); Chloride 100 mmol/L (98-107); Creatinine, Serum 0.78 mg/dL (0.55-1.02); EST Glomerular Filtration Rate 78 mL/min (>60); Est Glom Filt Rate - Afr Amer 94 mL/min (>60); Estimated Creatinine Clearance 45.85 ml/min; Glucose 99 mg/dL (74-106); Potassium 3.9 mmol/L (3.5-5.1); Sodium Level 135 mmol/L (136-145)
[2021-08-21] MEDS: Levothyroxine 88 MCG Tablet PO (06:38)
--- NOTE | 2021-08-21 07:33 | PCM.PN.SRG ---
Subjective Subjective Patient is still burping. Patient's pain is improved with the binder. Patient states she is getting up and walking in the room and also to the restroom. Objective Data Objective Data Vital Signs: Vital Signs Temp Pulse Resp BP Pulse Ox 97.8 F 77 18 131/88 H 94 08/21/21 02:55 08/21/21 03:29 08/21/21 02:55 08/21/21 02:55 08/21/21 07:20 Oxygen Flow Rate (L/min) 2 Oxygen Delivery Method Room Air Weight: 256 lb 13.416 oz Body Mass Index (BMI) 44.1 Intake & Output: Intake and Output for Last 24 Hours 08/19/21 08/20/21 08/21/21 23:59 23:59 23:59 Intake Total 1390.67 / 1390.67 50 / 200 250 / 250 Output Total 3400 / 3400 1800 / 2200 1200 / 1200 Balance -2009.33 / -2009.33 -1750 / -2000 -950 / -950 Lab / Micro Data Result Diagrams: 08/20/21 05:34 08/21/21 04:26 Labs: Laboratory Results - last 24 hr 08/21/21 04:26: Sodium 135 L, Potassium 3.9, Chloride 100, Carbon Dioxide 31.0, Anion Gap 4 L, BUN 9, Creatinine 0.78, Estim Creat Clear Calc 45.85, Est GFR (MDRD) Af Amer 94, Est GFR (MDRD) Non-Af 78, BUN/Creatinine Ratio 11.6, Glucose 99, Calcium 8.8 08/21/21 04:26: PT 18.9 H, INR 1.7 Physical Exam Resp normal respiratory effort Cardio regular rate GI GI Narrative: Abdomen: Soft, nondistended, tender near incision's dressed clean dry and intact with chuck, no peritoneal signs Assessment & Plan Assessment/Plan (1) S/P right hemicolectomy: (2) Hyponatremia: (3) Hyperkalemia: (4) Morbid obesity with BMI of 40.0-44.9, adult: PLAN: Postop day 4 status post right hemicolectomy due to colon cancer. Tolerating clears but still not having much flatus and is burping. Will await increased bowel function before advancing to transitional diet. will check KUB--likely post operative ileus Continue ambulation and out of bed to chair INR currently 1.7 continue Coumadin-- will stop lovenox Appreciate medicine/nephrology's assistance with patient's hyponatremia and hyperkalemia (both resolved)--1000 cc fluid restriction per them Michelle Paige M.D. Pager: [phone] [facility] [address] [place] [address], [facility], [address] [place] [address] Office: [phone]
--- NOTE | 2021-08-21 09:05 | RAD_ITS ---
STUDY: X-RAY - ABDOMEN/PELVIS REASON FOR EXAM: Female, 71 years old. Post op ileus -- portable TECHNIQUE: Single AP view of the abdomen / pelvis. COMPARISON: None. FINDINGS: Mildly distended small bowel loops as well as the colon down to the rectum suggestive of a postoperative ileus. The visualized liver, spleen and kidneys are grossly normal in size and morphology. Surgical clips are seen in the mid abdomen. Normal visualized osseous structures. RAD/Abdomen Single View (Portable) IMPRESSION: Findings suggestive of ileus pattern involving the small bowel loops and colon down to the rectum. Electronically Signed: Riki Singer MD at 9:27 EST , Service support ,
[2021-08-21] MEDS: Docusate Sodium 100 MG Capsule PO ×2 (09:44→20:34)
--- NOTE | 2021-08-21 09:51 | PN.RENAL_ITS ---
Subjective Subjective Resting in bed, no complaints. Denies any nausea or vomiting. Objective Data Objective Data Vital Signs: Vital Signs Temp Pulse Resp BP Pulse Ox 97.8 F 77 18 131/88 H 94 08/21/21 02:55 08/21/21 03:29 08/21/21 02:55 08/21/21 02:55 08/21/21 07:20 Oxygen Flow Rate (L/min) 2 Oxygen Delivery Method Room Air Weight: 116.5 kg Body Mass Index (BMI) 44.1 Intake & Output: Intake and Output for Last 24 Hours 08/19/21 08/20/21 08/21/21 23:59 23:59 23:59 Intake Total 1390.67 / 1390.67 50 / 200 250 / 250 Output Total 3400 / 3400 1800 / 2200 1200 / 1200 Balance -2008.33 / - -1750 / -2000 -950 / -950 Lab / Micro Data Result Diagrams: 08/20/21 05:34 08/21/21 04:26 Labs: Laboratory Results - last 24 hr 08/21/21 04:26: Sodium 135 L, Potassium 3.9, Chloride 100, Carbon Dioxide 31.0, Anion Gap 4 L, BUN 9, Creatinine 0.78, Estim Creat Clear Calc 45.85, Est GFR (MDRD) Af Amer 94, Est GFR (MDRD) Non-Af 78, BUN/Creatinine Ratio 11.6, Glucose 99, Calcium 8.8 08/21/21 04:26: PT 18.9 H, INR 1.7 Radiography Diagnostic Testing: Radiology Impression KUB X-Ray 08/21/21 09:05 IMPRESSION: Findings suggestive of ileus pattern involving the small bowel loops and colon down to the rectum. Electronically Signed: Riki Singer MD at 9:27 EST , Service support , Physical Exam Narrative General: Alert and oriented x3, no apparent distress. HEENT: Normocephalic, atraumatic. Mucous membrane is dry. Neck: Supple, no JVD. Heart: Normal S1, S2. No rubs, murmurs or gallops. Lungs: Clear to auscultation bilaterally. Abdomen: Normal bowel sounds Extremity: No clubbing, cyanosis, or edema. Assessment & Plan Assessment/Plan (1) Hyponatremia: PLAN: - Baseline serum sodium is normal on lab review. -The patient has mild hyponatremia without worrisome symptoms. There is no need for hypertonic saline today. -Suspect that hyponatremia is actually due to decreased effective blood volume/solute depletion due to decreased oral intake along with true volume depletion. -The patient had also been on thiazide diuretic -Therefore, although SIADH is possible, we will need to make sure the patient is volume repleted first before making this diagnosis. - sodium shahida 129. Today sodium 135, improved after small IVF bolus over the weekend. No need for frequent sodium checks. No need for small fluid bolus today as patient reports appetite fair on liquid diet, no nausea or vomiting. Urine sodium 52 -on 08/19 patient had limited IV saline bolus since her solute intake low on clear liquid diet. We will be careful with giving too much IV fluids since the patient has a history of HFpEF. -Agree with holding indapamide. (2) Hyperkalemia: PLAN: - The patient had mild hyperkalemia from decreased effective blood v olume with concurrent potassium citrate and ARB. Now Resolved. Back on entresto, off potassium citrate for now. (3) Essential hypertension: PLAN: - BP is acceptable. (4) Hypothyroidism: PLAN: - The patient is on levothyroxine. -I have a low suspicion that hypothyroidism is contributing to the current hyponatremia. -However, if serum sodium fails to improve with treatment plan above, we will check TSH and cortisol level. (5) Ascending colon malignant neoplasm: PLAN: - Status post hemicolectomy on 08/17/2021. -Management as per general surgery service.
--- NOTE | 2021-08-21 09:58 | NURSING ---
Pt was maxed out on Tylenol for a 24 hr time frame so the 10am dose was not given. Let SHIRLEY Rangel know.
--- NOTE | 2021-08-21 12:02 | PCM.PN.HOSP ---
Subjective Subjective Not ambulating due to arthritis. Developed an ileus. Objective Data Objective Data Vital Signs: Vital Signs Temp Pulse Resp BP Pulse Ox 36.6 C 52 L 18 131/88 H 94 08/21/21 02:55 08/21/21 08:01 08/21/21 02:55 08/21/21 02:55 08/21/21 07:20 Oxygen Flow Rate (L/min) 2 Oxygen Delivery Method Room Air Weight: 116.5 kg Body Mass Index (BMI) 44.1 Intake & Output: Intake and Output for Last 24 Hours 08/19/21 08/20/21 08/21/21 23:59 23:59 23:59 Intake Total 1390.67 / 1390.67 50 / 200 250 / 250 Output Total 3400 / 3400 1800 / 2200 1200 / 1200 Balance -2008.33 / - -1750 / -1999 -950 / -950 Lab / Micro Data Result Diagrams: 08/20/21 05:34 08/21/21 04:26 Labs: Laboratory Results - last 24 hr 08/21/21 04:26: Sodium 135 L, Potassium 3.9, Chloride 100, Carbon Dioxide 31.0, Anion Gap 4 L, BUN 9, Creatinine 0.78, Estim Creat Clear Calc 45.85, Est GFR (MDRD) Af Amer 94, Est GFR (MDRD) Non-Af 78, BUN/Creatinine Ratio 11.6, Glucose 99, Calcium 8.8 08/21/21 04:26: PT 18.9 H, INR 1.7 Radiography Diagnostic Testing: Radiology Impression KUB X-Ray 08/21/21 09:05 IMPRESSION: Findings suggestive of ileus pattern involving the small bowel loops and colon down to the rectum. Electronically Signed: Riki Singer MD at 9:27 EST , Service support , Physical Exam Const alert Resp normal respiratory effort, no retractions, no use of accessory muscles and clear to auscultation bilaterally GI normal to inspection, nondistended, normoactive bowel sounds, soft to palpation, non-tender and non-distended Extremity normal to inspection Neuro Sensorium / Orientation: awake and alert Assessment & Plan Assessment/Plan (1) Ascending colon malignant neoplasm: (2) Paroxysmal atrial fibrillation: PLAN: Colon adenocarcinoma s/p right hemicolectomy 08/17 management as per general surgery PT/OT consult incentive spirometry pain management as per general surgery 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 Chronic combined systolic and diastolic heart failure entresto held d/t hyperkalemia Hypertension: on indapamide.Hold o/a of hyponatremia. IV hydralazine prn Hypothyroidism: on synthroid. DVT prophylaxis; lovenox, per general surgery the primary team. Charges/Coding Visit Charges Inpatient E&M: 84845 [facility] [email or web address] Hosp L2
[2021-08-21] MEDS: Pantoprazole Sodium 40 MG Tablet PO (20:34)
[2021-08-22] VITALS (11 sets, daily range): BP systolic 113–140; BP diastolic 57–81; PULSE 68–90; RESP 16–18; TEMP 36.3–36.8; O2SAT 92–98
[2021-08-22 03:17] LABS: Absolute Lymphocyte Count 1.53 X10^3/uL (0.83-4.51); Absolute Neutrophil Count 4.9 X10^3/uL (2.0-7.7); Basophil# 0.05 X10^3/uL; Basophil% 0.7 % (0-1); Eosinophil# 0.11 X10^3/uL; Eosinophils% 1.5 % (0-5); Hematocrit 34.7 % (37-47); Hemoglobin 9.9 g/dL (12.0-15.0); Lymphocyte # 1.53 X10^3/ul (0.83-4.51); Lymphocyte % 20.7 % (19-41); Mean Corp Hgb Conc 28.5 g/dL (32-36); Mean Corpuscular Hgb 22.6 pg (27.0-32.0); Mean Platelet Vol. 9.7 fl (6.2-12.0); Monocyte# 0.81 X10^3/uL; NRBC Flagged by Analyzer 0 % (0-5); Neutrophil # 4.86 X10^3/uL (2.7-7.7); Neutrophil % 65.7 % (47-70); POSITIVE MORPHOLOGY YES; Platelet Count 351 K/mm3 (150-450); RBC Distribution Width CV 20.8 % (11.6-14.6); Red Blood Count 4.39 M/mm3 (4.2-5.4); White Blood Count 7.4 K/mm3 (4.4-11.0)
[2021-08-22 03:20] LABS: Differential Indicated SCAN CRITERIA MET
[2021-08-22 03:29] LABS: International Normalized Ratio 1.9; Prothrombin Time (Protime)PT. 21.3 SECONDS (11.7-14.9)
[2021-08-22 03:52] LABS: Anisocytosis 1+; Differential Comment SCANNED; Microcytosis 1+
[2021-08-22] MEDS: Acetaminophen 500 MG Tablet 1000 MG PO ×3 (04:52→15:47)
[2021-08-22] MEDS: Levothyroxine 88 MCG Tablet PO (04:52)
--- NOTE | 2021-08-22 06:56 | PCM.PN.SRG ---
Subjective Subjective Patient still having flatus. Currently tolerating transitional diet. Objective Data Objective Data Vital Signs: Vital Signs Temp Pulse Resp BP Pulse Ox 98.2 F 72 18 140/78 H 95 08/22/21 02:30 08/22/21 02:30 08/22/21 02:30 08/22/21 02:30 08/22/21 02:30 Oxygen Flow Rate (L/min) 2 Oxygen Delivery Method Room Air Weight: 256 lb 13.416 oz Body Mass Index (BMI) 44.1 Intake & Output: Intake and Output for Last 24 Hours 08/20/21 08/21/21 08/22/21 23:59 23:59 23:59 Intake Total 50 / 200 250 / 650 400 / 400 Output Total 1800 / 2200 1200 / 1200 Balance -1750 / -2000 -950 / -550 400 / 400 Lab / Micro Data Result Diagrams: 08/22/21 02:21 08/21/21 04:26 Labs: Laboratory Results - last 24 hr 08/22/21 02:21: PT 21.3 H, INR 1.9 08/22/21 02:21: WBC 7.4, RBC 4.39, Hgb 9.9 L, Hct 34.7 L, MCV 79.0 L, MCH 22.6 L, MCHC 28.5 L, RDW Std Deviation 59.0 H, RDW Coeff of Angela 20.8 H, Plt Count 351, MPV 9.7, Immature Gran % (Auto) 0.400, Neut % (Auto) 65.7, Lymph % (Auto) 20.7, [place] % (Auto) 11.0 H, Eos % (Auto) 1.5, Baso % (Auto) 0.7, Absolute Neuts (auto) 4.9, Absolute Lymphs (auto) 1.53, Nucleated RBC % 0, Differential Comment SCANNED, Anisocytosis 1+, Microcytosis 1+ Radiography Diagnostic Testing: Radiology Impression KUB X-Ray 08/21/21 09:05 IMPRESSION: Findings suggestive of ileus pattern involving the small bowel loops and colon down to the rectum. Electronically Signed: Riki Singer MD at 9:27 EST , Service support , Physical Exam Resp normal respiratory effort Cardio regular rate GI GI Narrative: Abdomen: Soft, nondistended, tender near incision's dressed clean dry and intact with chuck, no peritoneal signs Assessment & Plan Assessment/Plan (1) S/P right hemicolectomy: (2) Postoperative ileus: (3) Hyponatremia: (4) Hyperkalemia: (5) Morbid obesity with BMI of 40.0-44.9, adult: PLAN: Postop day 5 status post right hemicolectomy due to colon cancer. Patient did have a post op ileus currently resolved. Patient is started on a transitional diet yesterday. Continue ambulation and out of bed to chair INR currently 1.9 continue Coumadin Appreciate medicine/nephrology's assistance PT/OT consulted. Michelle Paige M.D. Pager: [phone] [facility] [address] [place] [address], [facility], [address] [place] [id number] Office: [phone]
[2021-08-22] MEDS: Docusate Sodium 100 MG Capsule PO (09:48)
--- NOTE | 2021-08-22 12:43 | CASEMGMT ---
SHIRLEY ZAPATA NOTE: Noted in PT/OT eval documentation that pt ambulated w/walker. Per SHIRLEY ZAPATA initial assessment, pt states does not have DME. SHIRLEY ZAPATA to talk w/pt. Pt sitting up in chair in room, A/O. Introduced self and role of SHIRLEY ZAPATA. Pt states she has a walker and rollator @ home, that she has been using. She states they were her late husbands. Inquired about the height of walker and rollator. Pt states her was 5'8 and the height works very well for her. She denies need for any other DME or concerns w/going home @ discharge. Le [place] SHIRLEY ZAPATA
--- NOTE | 2021-08-22 12:49 | PN.HOSP_ITS ---
Subjective Subjective Feels good. +Flatus. Objective Data Objective Data Vital Signs: Vital Signs Temp Pulse Resp BP Pulse Ox 36.4 C L 76 16 135/61 H 97 08/22/21 12:31 08/22/21 12:31 08/22/21 12:31 08/22/21 12:31 08/22/21 12:31 Oxygen Flow Rate (L/min) 2 Oxygen Delivery Method Room Air Weight: 116.5 kg Body Mass Index (BMI) 44.1 Intake & Output: Intake and Output for Last 24 Hours 08/20/21 08/21/21 08/22/21 23:59 23:59 23:59 Intake Total 50 / 200 250 / 650 1400 / 1400 Output Total 1800 / 2200 1200 / 1200 500 / 500 Balance -1750 / -2000 -950 / -550 900 / 900 Lab / Micro Data Result Diagrams: 08/22/21 02:21 08/21/21 04:26 Labs: Laboratory Results - last 24 hr 08/22/21 02:21: PT 21.3 H, INR 1.9 08/22/21 02:21: WBC 7.4, RBC 4.39, Hgb 9.9 L, Hct 34.7 L, MCV 79.0 L, MCH 22.6 L , MCHC 28.5 L, RDW Std Deviation 59.0 H, RDW Coeff of Angela 20.8 H, Plt Count 351, MPV 9.7, Immature Gran % (Auto) 0.400, Neut % (Auto) 65.7, Lymph % (Auto) 20.7, [place] % (Auto) 11.0 H, Eos % (Auto) 1.5, Baso % (Auto) 0.7, Absolute Neuts (auto) 4.9, Absolute Lymphs (auto) 1.53, Nucleated RBC % 0, Differential Comment SCANNED, Anisocytosis 1+, Microcytosis 1+ Physical Exam Const alert and no apparent distress Resp normal respiratory effort, no retractions, no use of accessory muscles and clear to auscultation bilaterally Cardio regular rate, regular rhythm, S1 normal heart sound and S2 normal heart sound GI normal to inspection, nondistended, normoactive bowel sounds and soft to palpation Assessment & Plan Assessment/Plan (1) Ascending colon malignant neoplasm: (2) Paroxysmal atrial fibrillation: PLAN: Colon adenocarcinoma * s/p right hemicolectomy 08/17 * management as per general surgery * PT/OT consult * incentive spirometry * pain management as per general surgery 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 Chronic combined systolic and diastolic heart failure * entresto held d/t hyperkalemia Hypertension: on indapamide.Hold o/a of hyponatremia. IV hydralazine prn Hypothyroidism: on synthroid. DVT prophylaxis; lovenox, per general surgery the primary team. Medically stable for discharge Home meds reconcilled Charges/Coding Visit Charges Inpatient E&M: 46994 [facility] Hosp L2
--- NOTE | 2021-08-22 15:42 | EX.PCM.DISCH ---
Discharge Instructions Diet Discharge Diet: - (Transitional x1 week) Activity Discharge Activity: May Not Drive (while taking narcotic pain medications.) May shower in (days): 1 Lifting Restrictions: no lifting >20 lbs x 2 wks, no strenuous exercise for 4 wks Dressing / Incision Call your doctor if your incision/area has: Continuous Slow Oozing, Sudden Increased Bleeding, Increased Pain/ Swelling, Increased Redness, Foul Smelling Discharge and Swelling at the incision site Call your doctor if you observe: Fever of 101 or Higher Cleanse incision/area with: Soap & Water Additional Dressing/Incision Instructions:: Abdominal binder for comfort only. Follow Up Care Please Follow Up With: Michelle Paige MD When: Call the office for a follow-up appointment and staple removal for 08/28/21; after 5 PM and on the weekends call [phone] with any concerns. Test Results: Test results from this visit will be discussed in further detail at your follow-up appointment, if applicable. Discharge Plan Admission Admit Date/Time: 08/17/21 11:06 Attending Provider: Alejandro Ellison Primary Care Provider: Alejandro Rosales Consulting Providers: Shayla Castro ; Jethro Cooper Discharge Orders/Prescriptions Prescriptions: Continued albuterol sulfate [Proventil HFA] 90 mcg/actuation HFA aerosol inhaler 2 puff INHALATION Q4H PRN (Reason: Wheezing) RF: 0 fluticasone propionate [Flonase Allergy Relief] 50 mcg/actuation spray,suspension 1 spray INTRANASAL DAILY PRN (Reason: ALLERGIES) RF: 0 warfarin 3 mg tablet 3 mg PO QODAY RF: 0 Hold Instructions: Resume on 08/07/21. warfarin 5 mg tablet 5 mg PO QODAY RF: 0 Hold Instructions: Resume on 08/07/21. levothyroxine [Euthyrox] 88 mcg Tablet 88 mcg PO DAILY RF: 0 pantoprazole 40 mg tablet,delayed release (DR/EC) 40 mg PO QHS RF: 0 Discontinued potassium citrate 5 mEq (540 mg) tablet extended release 5 meq PO DAILY RF: 0 neomycin 500 mg tablet 500 mg PO .COMPLEX Qty: 6 RF: 0 indapamide 2.5 MG tablet 2.5 mg PO DAILY RF: 0 metronidazole 500 mg tablet 500 mg PO .COMPLEX RF: 0 Entresto 24-26 mg tablet 1 tab PO BID RF: 0 Referrals / Follow Up: Alejandro Rosales MD [Primary Care Provider] -
--- NOTE | 2021-08-22 15:47 | DS.PCM_ITS ---
Providers Date of Admission: 08/17/21 Primary Care Physician: Dr. Alejandro Rosales MD Consultations 08/17/21 15:31 Consult: Hospitalist Routine Consulting Provider: Shayla Castro Reason for Consult: medical management EMERGENT Consult: No Notified: Yes Date Notified: 08/17/21 Time Notified: 14:54 Method of Notification: Verbal 08/19/21 10:01 Consult: Nephrology Routine Consulting Provider: Jethro Cooper Reason for Consult: hyponatremia, likely SIADH EMERGENT Consult: No Notified: Yes Date Notified: 08/19/21 Time Notified: 10:01 Method of Notification: Text Diagnosis Discharge Diagnosis (1) Ascending colon malignant neoplasm: Status: Acute Code(s): C18.2 - Malignant neoplasm of ascending colon (2) Paroxysmal atrial fibrillation: Status: Acute Code(s): I48.0 - Paroxysmal atrial fibrillation Medications at Discharge Home Medications albuterol sulfate 90 mcg/actuation aerosol inhaler 2 puff INHALATION Q4H PRN g 12/09/18 fluticasone propionate 50 mcg/actuation nasal spray,suspension 1 spray INTRANASAL DAILY PRN 12/09/18 warfarin 5 mg tablet 5 mg PO QODAY 12/09/18 warfarin 3 mg tablet 3 mg PO QODAY 04/28/19 levothyroxine [Euthyrox] 88 mcg PO DAILY 08/15/21 pantoprazole 40 mg PO QHS 08/15/21 Hospital Course Operations colectomy Summary of Care Provided Minutes Spent on Discharge: 15 Hospital Course: Patient was admitted to the hospital after her right hemicolectomy due to ascending colon cancer. Postoperatively patient did have issues with hyponatremia as well as hyperkalemia. Patient's diuretic as well as her hypertensive medicine?Entresto was stopped. Her hyponatremia as well as hyperkalemia did improve which is normal saline IV fluids and at 1000 cc fluid restriction. Nephrology as well as medicine was consulted to help with the electrolyte issues. Patient did have postoperative ileus for a few days. Once patient regained bowel function she was able to transition to the transitional diet and the fluid restriction was removed. Patient was able to be restarted on her Coumadin while in the hospital and on the day of discharge her INR was 1.9. Physical Exam Const alert, oriented x3 and no apparent distress Resp normal respiratory effort Cardio regular rate GI GI Narrative: Abdomen: Soft, nondistended, tender near incision's dressed clean dry and intact with chuck, no peritoneal signs Weight / BMI Weight Weight: 256 lb 13.416 oz Body Mass Index (BMI) 44.1 ABG / Lab / Microbiology Data Result Diagrams: 08/22/21 02:21 08/21/21 04:26 Laboratory: Laboratory Results - last 24 hr 08/22/21 02:21: PT 21.3 H, INR 1.9 08/22/21 02:21: WBC 7.4, RBC 4.39, Hgb 9.9 L, Hct 34.7 L, MCV 79.0 L, MCH 22.6 L , MCHC 28.5 L, RDW Std Deviation 59.0 H, RDW Coeff of Angela 20.8 H, Plt Count 351, MPV 9.7, Immature Gran % (Auto) 0.400, Neut % (Auto) 65.7, Lymph % (Auto) 20.7, [place] % (Auto) 11.0 H, Eos % (Auto) 1.5, Baso % (Auto) 0.7, Absolute Neuts (auto) 4.9, Absolute Lymphs (auto) 1.53, Nucleated RBC % 0, Differential Comment SCANNED, Anisocytosis 1+, Microcytosis 1+ D/C Instructions Discharge Diet: - (Transitional x1 week) May shower in (days): 1 Call your doctor if your incision/area has: Continuous Slow Oozing, Sudden Increased Bleeding, Increased Pain/ Swelling, Increased Redness, Foul Smelling Discharge and Swelling at the incision site Call your doctor if you observe: Fever of 101 or Higher Cleanse incision/area with: Soap & Water Additional Dressing/Incision Instructions: Abdominal binder for comfort only. Please Follow Up With: Michelle Paige MD When: Call the office for a follow-up appointment and staple removal for 08/28/21; after 5 PM and on the weekends call [phone] with any concerns. Meaningful Use Info Meaningful Use Diagnoses (Choose all that apply): None applicable Discharge Plan Admission Admit Date/Time: 08/17/21 11:06 Attending Provider: Alejandro Ellison Primary Care Provider: Alejandro Rosales Consulting Providers: Shayla Castro ; Jethro Cooper Discharge Orders/Prescriptions Prescriptions: Continued albuterol sulfate [Proventil HFA] 90 mcg/actuation HFA aerosol inhaler 2 puff INHALATION Q4H PRN (Reason: Wheezing) RF: 0 fluticasone propionate [Flonase Allergy Relief] 50 mcg/actuation spray,suspension 1 spray INTRANASAL DAILY PRN (Reason: ALLERGIES) RF: 0 warfarin 3 mg tablet 3 mg PO QODAY RF: 0 Hold Instructions: Resume on 08/07/21. warfarin 5 mg tablet 5 mg PO QODAY RF: 0 Hold Instructions: Resume on 08/07/21. levothyroxine [Euthyrox] 88 mcg Tablet 88 mcg PO DAILY RF: 0 pantoprazole 40 mg tablet,delayed release (DR/EC) 40 mg PO QHS RF: 0 Discontinued potassium citrate 5 mEq (540 mg) tablet extended release 5 meq PO DAILY RF: 0 neomycin 500 mg tablet 500 mg PO .COMPLEX Qty: 6 RF: 0 indapamide 2.5 MG tablet 2.5 mg PO DAILY RF: 0 metronidazole 500 mg tablet 500 mg PO .COMPLEX RF: 0 Entresto 24-26 mg tablet 1 tab PO BID RF: 0 Referrals / Follow Up: Alejandro Rosales MD [Primary Care Provider] - In 1 Week (Hypertensive as well as diuretic was stopped in the hospital due to hyponatremia/hyperkalemia at this did improve. Nephrology thought this may just be due to overall volume depleted.) Disposition Disposition (needs filled in before D/C Order can be placed): Home, Self Care
== END 2021-08-22 19:19 | disposition home or self-care (01) | DRG 330 ==
PROVIDERS: Anesthesiology; Internal Medicine Nephrology; Nurse Practitioner Adult Health; Student in an Organized Health Care Education/Training Program; Surgery; Admitting Provider Surgery; PCP Family Medicine
PROC: 0DTF0ZZ Resection of Right Large Intestine, Open Approach (ICD-10-PCS; CPT 44205; principal; 2021-08-17 09:55)
DX: C18.2 Malignant neoplasm of ascending colon (principal); I50.42 Chronic combined systolic (congestive) and diastolic (congestive) heart failure; E87.1 Hypo-osmolality and hyponatremia; K56.7 Ileus, unspecified; Z68.41 Body mass index [BMI] 40.0-44.9, adult; I11.0 Hypertensive heart disease with heart failure; I48.0 Paroxysmal atrial fibrillation; E86.9 Volume depletion, unspecified; J44.9 Chronic obstructive pulmonary disease, unspecified; E66.01 Morbid (severe) obesity due to excess calories; D64.9 Anemia, unspecified; E87.5 Hyperkalemia; E03.9 Hypothyroidism, unspecified; Z87.891 Personal history of nicotine dependence; Z79.01 Long term (current) use of anticoagulants; Z80.0 Family history of malignant neoplasm of digestive organs; Z53.31 Laparoscopic surgical procedure converted to open procedure; Z79.899 Other long term (current) drug therapy; Z86.73 Personal history of transient ischemic attack (TIA), and cerebral infarction without residual deficits; F32.A Depression, unspecified; Z79.890 Hormone replacement therapy
CPT/HCPCS: 36415; 36430; 74018; 80048; 80069; 82962; 83735; 83880; 83930; 83935; 84100; 84300; 85025; 85027; 85610; 86850; 86900; 86901; 86920; 86922; 88304; 88309; 93005; 97116; 97162; 97166; 99251; J7030; J7040; J7050; J7120; P9016; A4216; C1760; G0463; J2405

== ENCOUNTER → 2021-09-04 | Outpatient (CLI) | payer MEDICARE, OTHER, SELFPAY ==
[2021-09-04 18:18] LABS: International Normalized Ratio 1.9; Prothrombin Time (Protime)PT. 20.8 SECONDS (11.7-14.9)
== END | disposition home or self-care (01) ==
LOC: MTLAB 14:17
PROVIDERS: PCP Family Medicine; Referring Provider Family Medicine; Visit Provider Family Medicine
DX: I48.91 Unspecified atrial fibrillation (principal)
CPT/HCPCS: 36415; 85610

== ENCOUNTER 2021-09-14 11:40 | Outpatient (CLI) | payer MEDICARE, OTHER, SELFPAY ==
[2021-09-14 15:13] LABS: Hematocrit 36.7 % (37-47); Hemoglobin 10.7 g/dL (12.0-15.0); Mean Corp Hgb Conc 29.2 g/dL (32-36); Mean Corpuscular Hgb 23.2 pg (27.0-32.0); Mean Corpuscular Volume 79.6 fL (81-99); Mean Platelet Vol. 10.4 fl (6.2-12.0); POSITIVE MORPHOLOGY YES; Platelet Count 362 K/mm3 (150-450); RBC Distribution Width CV 20.6 % (11.6-14.6); RBC Distribution Width SD 59.3 fl (35.1-43.9); Red Blood Count 4.61 M/mm3 (4.2-5.4); White Blood Count 7.3 K/mm3 (4.4-11.0)
[2021-09-14 15:17] LABS: Scan Indicated on CBC? Y/N YES- FLAGS NOTED
[2021-09-14 15:52] LABS: ALB/GLOB Ratio 0.7 RATIO (0.9-2.4); AST(SGOT) 19 U/L (15-37); Alanine Aminotransfer ALT/SGPT 21 U/L (13-56); Albumin, Serum 3.1 g/dL (3.2-5.0); Alkaline Phosphatase 94 U/L (45-117); Anion Gap 7 (5-15); BUN 12 mg/dL (7-18); BUN/Creat Ratio 12.5 RATIO (10-20); Calcium,Total 9.3 mg/dL (8.5-10.1); Chloride 101 mmol/L (98-107); Creatinine, Serum 0.96 mg/dL (0.55-1.02); EST Glomerular Filtration Rate 61 mL/min (>60); Est Glom Filt Rate - Afr Amer 74 mL/min (>60); Free T3 2.7 pg/mL (2.18-3.98); Globulin 4.3 g/dL (2.2-4.2); Glucose 133 mg/dL (74-106); Potassium 3.4 mmol/L (3.5-5.1); Protein, Total 7.4 g/dL (6.4-8.2); Sodium Level 138 mmol/L (136-145); T4 Free Direct 1.55 ng/dL (0.76-1.46)
[2021-09-16 10:48] LABS: Carcinoembryonic Antigen 3.9 ng/mL (0.0-4.7)
== END 2021-09-14 23:59 | disposition home or self-care (01) ==
LOC: MFPLAB 11:45
PROVIDERS: Internal Medicine Medical Oncology; PCP Family Medicine; Referring Provider Family Medicine; Visit Provider Family Medicine
DX: I50.42 Chronic combined systolic (congestive) and diastolic (congestive) heart failure (principal); C18.9 Malignant neoplasm of colon, unspecified; E03.9 Hypothyroidism, unspecified; R79.89 Other specified abnormal findings of blood chemistry
CPT/HCPCS: 36415; 80053; 82378; 83735; 84439; 84443; 84481; 85027

== ENCOUNTER → 2021-12-20 | Outpatient (CLI) | payer MEDICARE, OTHER, SELFPAY ==
[2021-12-20 12:34] LABS: Absolute Lymphocyte Count 1.52 X10^3/uL (0.83-4.51); Absolute Neutrophil Count 6.4 X10^3/uL (2.0-7.7); Basophil# 0.04 X10^3/uL; Basophil% 0.5 % (0-1); Eosinophil# 0.15 X10^3/uL; Eosinophils% 1.7 % (0-5); Hematocrit 35.8 % (37-47); Hemoglobin 10.5 g/dL (12.0-15.0); Lymphocyte # 1.52 X10^3/ul (0.83-4.51); Lymphocyte % 17.2 % (19-41); Mean Corp Hgb Conc 29.3 g/dL (32-36); Mean Corpuscular Hgb 23.9 pg (27.0-32.0); Mean Corpuscular Volume 81.4 fL (81-99); Mean Platelet Vol. 9.7 fl (6.2-12.0); Monocyte# 0.69 X10^3/uL; Monocyte% 7.8 % (0-10); NRBC Flagged by Analyzer 0 % (0-5); Neutrophil # 6.38 X10^3/uL (2.7-7.7); Neutrophil % 72.3 % (47-70); Platelet Count 325 K/mm3 (150-450); RBC Distribution Width CV 16.6 % (11.6-14.6); RBC Distribution Width SD 49.4 fl (35.1-43.9); White Blood Count 8.8 K/mm3 (4.4-11.0)
[2021-12-20 12:55] LABS: ALB/GLOB Ratio 0.7 RATIO (0.9-2.4); AST(SGOT) 14 U/L (15-37); Alanine Aminotransfer ALT/SGPT 14 U/L (13-56); Albumin, Serum 3.1 g/dL (3.2-5.0); Alkaline Phosphatase 112 U/L (45-117); Anion Gap 6 (5-15); BUN 10 mg/dL (7-18); BUN/Creat Ratio 11.5 RATIO (10-20); Calcium,Total 8.8 mg/dL (8.5-10.1); Chloride 99 mmol/L (98-107); Creatinine, Serum 0.87 mg/dL (0.55-1.02); EST Glomerular Filtration Rate 69 mL/min (>60); Est Glom Filt Rate - Afr Amer 83 mL/min (>60); Free T3 2.2 pg/mL (2.18-3.98); Globulin 4.3 g/dL (2.2-4.2); Glucose 190 mg/dL (74-106); Magnesium 1.8 mg/dL (1.6-2.6); Potassium 3.4 mmol/L (3.5-5.1); Protein, Total 7.4 g/dL (6.4-8.2); Sodium Level 136 mmol/L (136-145); T4 Free Direct 1.84 ng/dL (0.76-1.46); Thyroid Stim Hormone (TSH) 2.18 uIU/mL (0.358-3.74)
== END | disposition home or self-care (01) ==
LOC: MTLAB 10:36
PROVIDERS: PCP Family Medicine; Referring Provider Family Medicine; Visit Provider Family Medicine
DX: I50.42 Chronic combined systolic (congestive) and diastolic (congestive) heart failure (principal); E03.9 Hypothyroidism, unspecified
CPT/HCPCS: 36415; 80053; 83735; 84439; 84443; 84481; 85025

== ENCOUNTER → 2022-02-19 | Outpatient (CLI) | payer MEDICARE, OTHER, SELFPAY ==
[2022-02-19 12:18] LABS: Absolute Lymphocyte Count 1.46 X10^3/uL (0.83-4.51); Absolute Neutrophil Count 5.9 X10^3/uL (2.0-7.7); Basophil# 0.03 X10^3/uL; Basophil% 0.4 % (0-1); Eosinophil# 0.11 X10^3/uL; Eosinophils% 1.3 % (0-5); Hematocrit 36.3 % (37-47); Hemoglobin 10.6 g/dL (12.0-15.0); Lymphocyte # 1.46 X10^3/ul (0.83-4.51); Lymphocyte % 17.8 % (19-41); Mean Corp Hgb Conc 29.2 g/dL (32-36); Mean Corpuscular Hgb 24.2 pg (27.0-32.0); Mean Corpuscular Volume 82.9 fL (81-99); Mean Platelet Vol. 10.1 fl (6.2-12.0); Monocyte# 0.65 X10^3/uL; Monocyte% 7.9 % (0-10); NRBC Flagged by Analyzer 0 % (0-5); Neutrophil # 5.89 X10^3/uL (2.7-7.7); Neutrophil % 72.1 % (47-70); POSITIVE MORPHOLOGY YES; Platelet Count 304 K/mm3 (150-450); RBC Distribution Width CV 20.8 % (11.6-14.6); RBC Distribution Width SD 60.8 fl (35.1-43.9); Red Blood Count 4.38 M/mm3 (4.2-5.4); White Blood Count 8.2 K/mm3 (4.4-11.0)
[2022-02-19 12:21] LABS: Differential Indicated SCAN CRITERIA MET
[2022-02-19 12:27] LABS: Hemoglobin A1c 7.3 % (3.8-5.6)
[2022-02-19 12:38] LABS: ALB/GLOB Ratio 0.8 RATIO (0.9-2.4); AST(SGOT) 11 U/L (15-37); Alanine Aminotransfer ALT/SGPT 13 U/L (13-56); Albumin, Serum 3.2 g/dL (3.2-5.0); Alkaline Phosphatase 126 U/L (45-117); Anion Gap 7 (5-15); Anisocytosis 2+; BUN 14 mg/dL (7-18); BUN/Creat Ratio 12.4 RATIO (10-20); Calcium,Total 9.1 mg/dL (8.5-10.1); Chloride 99 mmol/L (98-107); Creatinine, Serum 1.13 mg/dL (0.55-1.02); Differential Comment SCANNED; EST Glomerular Filtration Rate 51 mL/min (>60); Est Glom Filt Rate - Afr Amer 61 mL/min (>60); Ferritin 29 ng/mL (8-252); Glucose 169 mg/dL (74-106); Magnesium 1.4 mg/dL (1.6-2.6); Potassium 3.1 mmol/L (3.5-5.1); Protein, Total 7.2 g/dL (6.4-8.2); Sodium Level 137 mmol/L (136-145)
== END | disposition home or self-care (01) ==
LOC: MTLAB 10:05
PROVIDERS: PCP Family Medicine; Referring Provider Family Medicine; Visit Provider Family Medicine
DX: I50.42 Chronic combined systolic (congestive) and diastolic (congestive) heart failure (principal); Z85.038 Personal history of other malignant neoplasm of large intestine; R73.9 Hyperglycemia, unspecified
CPT/HCPCS: 36415; 80053; 82728; 83036; 83735; 85025

== ENCOUNTER → 2022-04-05 | Outpatient (CLI) | payer MEDICARE, OTHER, SELFPAY ==
--- NOTE | 2022-04-05 15:54 | CT_ITS ---
STUDY: CT Abdomen And Pelvis W/ Contrast Injection 04/05/2022 4:24 PM REASON FOR EXAM: Female, 71 years old. ABDOMINAL PAIN MONITOR COLON CA TECHNIQUE: Transaxial images were obtained without oral contrast, and with 100 CC ISOVUE 300 intravenous contrast. Individualized dose optimization techniques were used for this CT. COMPARISON: Aug 06 2021 11:46am . FINDINGS: The visualized lung bases are unremarkable. The visualized portions of the heart are within normal limits. Unremarkable liver. There is non-visualization of the gallbladder, which may be secondary to either contraction or a prior cholecystectomy. Unremarkable spleen. Unremarkable pancreas. Unremarkable bilateral adrenal glands. Diffuse stable scarring of the right kidney. Diffuse stable scarring of the left kidney. Unremarkable visualized stomach. Unremarkable small intestine. Right hemicolectomy changes. There is non-visualization of the appendix. There are calcifications of the abdominal aorta. This is consistent for atherosclerotic disease. There is no abdominal aortic aneurysm. Unremarkable inferior vena cava. Subcentimeter mesenteric lymph nodes. Unremarkable urinary bladder. There is absence of the uterus consistent with a prior hysterectomy. There is an umbilical hernia containing fat. There are diffuse degenerative changes of the visualized lumbar spine. CT/Abdomen/Pelvis W IV Cont ONLY IMPRESSION: (NOT LISTED IN ORDER OF SIGNIFICANCE) There are no acute findings. Right hemicolectomy changes. No evidence for local recurrence or metastatic disease. Other findings as above. Electronically Signed: Paxton Ying MD at 16:35 EDT ,
[2022-04-05 16:02] LABS: Absolute Lymphocyte Count 1.28 X10^3/uL (0.83-4.51); Absolute Neutrophil Count 6.5 X10^3/uL (2.0-7.7); Basophil# 0.05 X10^3/uL; Basophil% 0.6 % (0-1); Eosinophil# 0.09 X10^3/uL; Hematocrit 43.6 % (37-47); Hemoglobin 13.1 g/dL (12.0-15.0); Lymphocyte # 1.28 X10^3/ul (0.83-4.51); Lymphocyte % 14.8 % (19-41); Mean Corpuscular Hgb 25.3 pg (27.0-32.0); Mean Corpuscular Volume 84.2 fL (81-99); Mean Platelet Vol. 9.6 fl (6.2-12.0); Monocyte# 0.65 X10^3/uL; Monocyte% 7.5 % (0-10); NRBC Flagged by Analyzer 0 % (0-5); Neutrophil # 6.52 X10^3/uL (2.7-7.7); Neutrophil % 75.8 % (47-70); Platelet Count 290 K/mm3 (150-450); RBC Distribution Width CV 18.3 % (11.6-14.6); Red Blood Count 5.18 M/mm3 (4.2-5.4); White Blood Count 8.6 K/mm3 (4.4-11.0)
[2022-04-05 16:25] LABS: CREATININE FINGERSTICK < 0.9 mg/dL (0.55-1.02); EGFR FINGERSTICK > 60.0000 mL/min (>60)
[2022-04-05 16:46] LABS: ALB/GLOB Ratio 0.8 RATIO (0.9-2.4); AST(SGOT) 13 U/L (15-37); Alanine Aminotransfer ALT/SGPT 17 U/L (13-56); Albumin, Serum 3.2 g/dL (3.2-5.0); Alkaline Phosphatase 144 U/L (45-117); Anion Gap 9 (5-15); BUN 13 mg/dL (7-18); BUN/Creat Ratio 11.2 RATIO (10-20); Calcium,Total 9.3 mg/dL (8.5-10.1); Chloride 99 mmol/L (98-107); Creatinine, Serum 1.16 mg/dL (0.55-1.02); EST Glomerular Filtration Rate 49 mL/min (>60); Est Glom Filt Rate - Afr Amer 59 mL/min (>60); Globulin 4.2 g/dL (2.2-4.2); Glucose 245 mg/dL (74-106); LDH 199 U/L (84-246); Potassium 3.4 mmol/L (3.5-5.1); Protein, Total 7.4 g/dL (6.4-8.2); Sodium Level 137 mmol/L (136-145)
[2022-04-07 11:40] LABS: Carcinoembryonic Antigen 3.6 ng/mL (0.0-4.7)
== END | disposition home or self-care (01) ==
LOC: CT 15:43
PROVIDERS: PCP Family Medicine; Visit Provider Internal Medicine Medical Oncology
DX: C18.2 Malignant neoplasm of ascending colon (principal)
CPT/HCPCS: 36415; 74177; 80053; 82378; 83615; 85025; Q9967

== ENCOUNTER 2022-06-28 07:31 | Outpatient (CLI) | payer MEDICARE, OTHER, SELFPAY ==
--- NOTE | 2022-06-28 07:34 | AAVD_ITS ---
Reason For Study: PAD Aorta Measurements Aorta Doppler Measurements Proximal aorta measures1.55 x 1.61cm. in cross- Peak systolic flow velocities within the proximal sectional axis. aorta measure 68.7 cm/sec. Proximal aorta measures1.51cm. in longitudinal Peak systolic flow velocities within the mid aorta axis. measure 63.2 cm/sec. Mid aorta measures1.58 x 1.64cm. in cross- Peak systolic flow velocities within the distal sectional axis. aorta measure 90.4 cm/sec. Mid aorta measures1.50cm. in longitudinal axis. Distal aorta measures1.49 x 1.46cm. in cross- sectional axis. Distal aorta measures1.43cm. in longitudinal axis. Left Iliac Artery Left iliac artery measures 0.84 x 0.93 cm. in the cross-sectional axis. Left iliac artery measures 0.81 cm. in the longitudinal axis. Peak systolic velocity in the left iliac artery measures 130.3 cm/sec. Right Iliac Artery Right iliac artery measures 0.86 x 0.93 cm. in the cross-sectional axis. Right iliac artery measures 0.87 cm. in the longitudinal axis. Peak systolic velocity in the right iliac artery measures 95.9 cm/sec. Procedure Aorta IVC Iliac vasculature or bypass grafts [id number]. The exam was diagnostic. Technically difficult exam due to bowel gas and body habitus. Exam performed in department. VL/Abd Aortic/IVC Duplex scan Interpretation Summary Aortoiliac segment with no aneurysm or stenosis seen. Ordering Physician: Jamey Harrington Referring Physician: Alejandro Rosales MD Performed By: Juventino Bruner RVT
--- NOTE | 2022-06-28 07:34 | RDU_ITS ---
Reason For Study: PAD Right Renal Artery Left Renal Artery Right renal artery ostium Left renal artery ostium 112.6/18.8 123.8/11.9 RSV/EDV. PSV/EDV. Right renal artery proximal Left renal artery proximal PSV/EDV 94.8/17.0 PSV/EDV. 112.6/15.2 . Right renal artery mid 122.6/14.1 Left renal artery mid 68.8/12.6 PSV/EDV. PSV/EDV . Right renal artery distal Left renal artery distal 81.9/13.9 109.4/17.0 PSV/EDV. PSV/EDV. Right RAR 1.48. Left RAR 1.35. Right Renal Parenchyma Left Renal Parenchyma Upper Pole Medula 51.3/8.5 PSV/EDV. Left upper pole medulla 43.6/9.6 Right upper pole medulla EDR 0.20 . PSV/EDV . Right upper pole medulla R.I. Left upper pole medulla EDR 0.20 . 0.83 . Left upper pole medulla R.I. 0.78 . Upper Mark Cortx 17.6/5.3 PSV/EDV. UP Cortex 27.3/9.1 PSV/EDV. Right upper pole cortex EDR 0.30 . Left upper pole cortex EDR 0.30 . Right upper pole cortex R.I. 0.70 . Left upper pole cortex R.I. 0.67 . Right lower Pole medulla 32.3/6.5 Left lower Pole medulla 42.9/9.1 PSV/EDV . PSV/EDV . Right lower pole medulla EDR 0.20 . Left lower pole medulla EDR 0.20 . Right lower pole medulla R.I. Left lower pole medulla R.I. 0.79 . 0.80 . Lower Pole Cortx 22.0/6.0 PSV/EDV. Lower Pole Cortex 33.5/7.5 PSV/EDV. Left lower pole cortex EDR 0.30 . Right lower pole cortex EDR 0.22 . Left lower pole cortex R.I. 0.73 . Right lower pole cortex R.I. 0.78 . Left Renal Hilar Right Renal Hilar LT Hilar avg 85.3/16.3 PSV/EDV . Right Hilar avg 77.7/16.1 PSV/EDV. Left hilar acceleration time 40 Right hilar acceleration time 30 m/sec. m/sec. Left Renal Dimensions Right Renal Dimensions Left kidney size 9.16 cm . Right kidney size 10.86 cm . Left cortical dimension 1.30 cm . Right cortical dimension 1.57 cm . anechoic area noted within kidney cortex measuring 1.04cm x 1.15cm. Aorta Proximal abdominal aorta 1.52 x 1.55 cm . Distal abdominal aorta 1.49 x 1.58 cm . Proximal abdominal aorta peak systolic velocity is 67.7 cm/sec . Distal abdominal aorta peak systolic velocity is 83.7 cm/sec . Procedures Technically difficult study due to body habitus and bowel gas. VL/Renal Artery Duplex Ultrasound Interpretation Summary Bilateral renals <60% stenosis. Ordering Physician: Jamey Harrington Referring Physician: Alejandro Rosales MD Performed By: Juventino Bruner RVT
--- NOTE | 2022-06-28 07:35 | ART_ITS ---
Reason For Study: PAD Procedure A bilateral lower extremity continuous wave Doppler with analog waveform analysis and ankle brachial indexes. Left Segmental Pressures Left brachial= 134mmHg. Left posterior tibial artery = 127mmHg. Left dorsalis pedis artery = 120mmHg. Left digit = 64 mmHg. The left posterior tibial artery waveforms are triphasic. The left dorsalis pedis waveforms are triphasic. Right Segmental Pressures Right brachial= 143mmHg. Right posterior tibial artery = 148mmHg. Right dorsalis pedis artery = 157mmHg. Right digit = 72 mmHg. The right posterior tibial artery waveforms are triphasic. The right dorsalis pedis waveforms are triphasic. Indices The right ankle brachial index by the posterior tibial artery is 1.03. The right ankle brachial index by the dorsalis pedis is 1.10. The right digital-brachial index is 0.50. The left ankle brachial index by the posterior tibial artery is 0.89. The left ankle brachial index by the dorsalis pedis is 0.84. The left digital-brachial index is 0.45. VL/Ankle Brachial Index Interpretation Summary Bilateral normal at rest with triphasic flow and JACLYN 1.1 and 0.89. DBI 0.5 and 0.45. Ordering Physician: Jamey Harrington Referring Physician: Alejandro Rosales MD Performed By: Juventino Bruner RVT
== END 2022-06-28 23:59 | disposition home or self-care (01) ==
LOC: CVS 07:32
PROVIDERS: PCP Family Medicine; Visit Provider Surgery Vascular Surgery
DX: E11.51 Type 2 diabetes mellitus with diabetic peripheral angiopathy without gangrene (principal); J44.9 Chronic obstructive pulmonary disease, unspecified; I70.1 Atherosclerosis of renal artery; B97.4 Respiratory syncytial virus as the cause of diseases classified elsewhere; R06.02 Shortness of breath; Z85.9 Personal history of malignant neoplasm, unspecified; Z90.49 Acquired absence of other specified parts of digestive tract; D64.9 Anemia, unspecified
CPT/HCPCS: 93922; 93975; 93978

== ENCOUNTER 2022-07-04 08:00 | Outpatient (CLI) | payer MEDICARE, OTHER, SELFPAY ==
[2022-07-04 10:29] LABS: Absolute Lymphocyte Count 2.17 X10^3/uL (0.83-4.51); Absolute Neutrophil Count 5.2 X10^3/uL (2.0-7.7); Basophil# 0.06 X10^3/uL; Basophil% 0.7 % (0-1); Eosinophil# 0.12 X10^3/uL; Eosinophils% 1.4 % (0-5); Hematocrit 48.2 % (37-47); Hemoglobin 14.3 g/dL (12.0-15.0); Lymphocyte # 2.17 X10^3/ul (0.83-4.51); Lymphocyte % 25.9 % (19-41); Mean Corp Hgb Conc 29.7 g/dL (32-36); Mean Corpuscular Hgb 26.5 pg (27.0-32.0); Mean Corpuscular Volume 89.3 fL (81-99); Mean Platelet Vol. 10.7 fl (6.2-12.0); Monocyte# 0.78 X10^3/uL; Monocyte% 9.3 % (0-10); NRBC Flagged by Analyzer 0 % (0-5); Neutrophil # 5.22 X10^3/uL (2.7-7.7); Neutrophil % 62.3 % (47-70); Platelet Count 297 K/mm3 (150-450); RBC Distribution Width CV 17.2 % (11.6-14.6); RBC Distribution Width SD 55.2 fl (35.1-43.9); White Blood Count 8.4 K/mm3 (4.4-11.0)
[2022-07-04 11:26] LABS: AST(SGOT) 16 U/L (15-37); Alanine Aminotransfer ALT/SGPT 23 U/L (13-56); Albumin, Serum 3.5 g/dL (3.2-5.0); Alkaline Phosphatase 135 U/L (45-117); Anion Gap 10 (5-15); BUN 11 mg/dL (7-18); BUN/Creat Ratio 11.4 RATIO (10-20); Calcium,Total 8.8 mg/dL (8.5-10.1); Chloride 98 mmol/L (98-107); Creatinine, Serum 0.96 mg/dL (0.55-1.02); EST Glomerular Filtration Rate 61 mL/min (>60); Est Glom Filt Rate - Afr Amer 74 mL/min (>60); Ferritin 41 ng/mL (8-252); Globulin 3.5 g/dL (2.2-4.2); Glucose 159 mg/dL (74-106); Iron Binding Capacity,Total 386 ug/dL (250-450); Magnesium 2.1 mg/dL (1.6-2.6); Potassium 4.5 mmol/L (3.5-5.1); Sodium Level 137 mmol/L (136-145)
== END 2022-07-04 23:59 | disposition home or self-care (01) ==
LOC: MTLAB 08:02
PROVIDERS: PCP Family Medicine; Referring Provider Family Medicine; Visit Provider Family Medicine
DX: E11.69 Type 2 diabetes mellitus with other specified complication (principal); D64.9 Anemia, unspecified; E61.2 Magnesium deficiency
CPT/HCPCS: 36415; 80053; 82728; 83550; 83735; 85025

== ENCOUNTER → 2022-10-07 | Outpatient (CLI) | payer MEDICARE, OTHER, SELFPAY ==
--- NOTE | 2022-10-07 16:19 | CT_ITS ---
INDICATION: MONITOR COLON CA EXAMINATION: CT Abdomen And Pelvis W/ Contrast Injection TECHNIQUE: Helically acquired images were obtained of the abdomen and pelvis after IV contrast. A radiation dose optimization technique was used for this scan. IV Contrast dosage and agent: IV 100mL Isovue-300 Oral contrast: None. COMPARISON: 04/05/2022. FINDINGS: Visualized lung bases: Unremarkable Liver: Unremarkable Gallbladder: Surgically absent. Spleen: Unremarkable Pancreas: Unremarkable Adrenal Glands: Unremarkable Kidneys: Scattered too small to characterize subcentimeter hypodensities bilaterally. Vasculature: Moderate aortoiliac atherosclerotic disease. GI Tract: Post surgical changes status post right hemicolectomy. No evidence of residual or recurrent disease. Lymphadenopathy: None Peritoneum: No ascites. Bladder: Unremarkable Reproductive organs: Status post hysterectomy. Bones/Soft tissues: Mild scattered degenerative changes of the visualized spine. CT/Abdomen/Pelvis W IV Cont ONLY IMPRESSION: No recurrent or metastatic disease in the abdomen or pelvis. Electronically Signed: Thanh Guerrero MD at 21:43 EST ,
[2022-10-07 16:51] LABS: CREATININE FINGERSTICK 1.1 mg/dL (0.55-1.02)
[2022-10-07 16:53] LABS: Absolute Lymphocyte Count 1.73 X10^3/uL (0.83-4.51); Absolute Neutrophil Count 7.5 X10^3/uL (2.0-7.7); Basophil# 0.04 X10^3/uL; Basophil% 0.4 % (0-1); Eosinophil# 0.09 X10^3/uL; Eosinophils% 0.9 % (0-5); Hematocrit 47.6 % (37-47); Hemoglobin 14.7 g/dL (12.0-15.0); Lymphocyte # 1.73 X10^3/ul (0.83-4.51); Lymphocyte % 16.9 % (19-41); Mean Corp Hgb Conc 30.9 g/dL (32-36); Mean Corpuscular Hgb 27.8 pg (27.0-32.0); Mean Platelet Vol. 10.8 fl (6.2-12.0); Monocyte# 0.82 X10^3/uL; NRBC Flagged by Analyzer 0 % (0-5); Neutrophil # 7.53 X10^3/uL (2.7-7.7); Neutrophil % 73.4 % (47-70); Platelet Count 258 K/mm3 (150-450); RBC Distribution Width CV 14.7 % (11.6-14.6); RBC Distribution Width SD 48.9 fl (35.1-43.9); Red Blood Count 5.29 M/mm3 (4.2-5.4); White Blood Count 10.3 K/mm3 (4.4-11.0)
[2022-10-07 17:26] LABS: International Normalized Ratio 2.8
[2022-10-07 17:35] LABS: ALB/GLOB Ratio 0.8 RATIO (0.9-2.4); AST(SGOT) 24 U/L (15-37); Alanine Aminotransfer ALT/SGPT 21 U/L (13-56); Albumin, Serum 3.3 g/dL (3.2-5.0); Alkaline Phosphatase 131 U/L (45-117); Anion Gap 10 (5-15); BUN 12 mg/dL (7-18); BUN/Creat Ratio 10.3 RATIO (10-20); Calcium,Total 9.3 mg/dL (8.5-10.1); Chloride 96 mmol/L (98-107); Creatinine, Serum 1.17 mg/dL (0.55-1.02); EST Glomerular Filtration Rate 49 mL/min (>60); Est Glom Filt Rate - Afr Amer 59 mL/min (>60); Globulin 4.2 g/dL (2.2-4.2); Glucose 221 mg/dL (74-106); LDH 275 U/L (84-246); Potassium 2.9 mmol/L (3.5-5.1); Protein, Total 7.5 g/dL (6.4-8.2); Sodium Level 137 mmol/L (136-145)
[2022-10-09 15:15] LABS: Carcinoembryonic Antigen 6.4 ng/mL (0.0-4.7)
== END | disposition home or self-care (01) ==
PROVIDERS: PCP Family Medicine; Referring Provider Internal Medicine Medical Oncology; Visit Provider Internal Medicine Medical Oncology
DX: I48.91 Unspecified atrial fibrillation (principal); C18.2 Malignant neoplasm of ascending colon
CPT/HCPCS: 36415; 74177; 80053; 82378; 83615; 85025; 85610; Q9967; A4216

== ENCOUNTER → 2022-11-20 | Outpatient (CLI) | payer MEDICARE, OTHER, SELFPAY | END | disposition home or self-care (01) | LOC: MTLAB 13:50 | PROVIDERS: PCP Family Medicine; Referring Provider Internal Medicine Medical Oncology; Visit Provider Internal Medicine Medical Oncology | DX: C18.2 Malignant neoplasm of ascending colon (principal) | CPT/HCPCS: 36415; 82378 ==

== ENCOUNTER → 2022-12-04 | Outpatient (CLI) | payer MEDICARE, OTHER, SELFPAY ==
--- NOTE | 2022-12-04 17:57 | MRI_ITS ---
STUDY: MRI BRAIN WITH AND WITHOUT CONTRAST REASON FOR EXAM: Female, 72 years old. STAGING-COLON CA, NO NEURO SYMPTOMS TECHNIQUE: Standardized multiplanar fat and water weighted pulse sequences were obtained. IV 20ml clariscan was administered for the contrast portion of the examination. COMPARISON: None. FINDINGS: Normal size of the ventricles and extra-axial spaces for the patient''s age. Moderate periventricular white matter ischemic change without mass effect or restricted diffusion.. Normal bilateral basal ganglia. Normal thalami. There is no extra-axial fluid accumulation. Normal flow voids within the major intracranial circulation suggesting patency by spin echo criteria. Normal venous enhancement. There is no enhancing intra-axial or extra-axial abnormality. Normal sella turcica, pituitary gland, infundibular stalk, optic chiasm and hypothalamus. Normal tectal plate and pineal gland. Normal midbrain, wally and medulla. There is gliosis in the right vermis with adjacent low signal density possibly representing dense calcification possibly representing meningioma... CT recommended for further evaluation Normal basal cisterns. Normal bilateral temporal bones. Normal bilateral internal auditory canals. No demonstrated orbital abnormality, within the constraints of a routine brain study. Normal visualized paranasal sinuses. Normal calvarium and skull base. Normal visualized soft tissue structures. Normal visualized upper cervical spine. MRI/Brain W/WO Contrast IMPRESSION: Moderate periventricular white matter ischemic changes without evidence for acute infarct. Possible calcified meningioma arising off the right tentorial leaf. CT recommended for further evaluation No enhancing lesions to suggest presence of brain metastases. Electronically Signed: Jeffrey Polanco MD at 21:05 EDT ,
[2022-12-04 18:25] LABS: CREATININE FINGERSTICK < 0.9 mg/dL (0.55-1.02); EGFR FINGERSTICK > 60.0000 mL/min (>60)
== END | disposition home or self-care (01) ==
LOC: MRI 17:54
PROVIDERS: PCP Family Medicine; Referring Provider Internal Medicine Medical Oncology; Visit Provider Internal Medicine Medical Oncology
DX: C18.9 Malignant neoplasm of colon, unspecified (principal)
CPT/HCPCS: 70553; A9575

== ENCOUNTER → 2022-12-25 | Outpatient (CLI) | payer MEDICARE, OTHER, SELFPAY ==
--- NOTE | 2022-12-25 09:53 | NM_ITS ---
CLINICAL: 72-year-old female with history of colorectal carcinoma. WHOLE BODY 99m Tc MDP RADIONUCLIDE BONE SCINTIGRAPHY COMPARISON: None available FINDINGS: Following the intravenous administration of 26.8 mCi of 99m Tc MDP, whole body bone images reveal: 1. Increased radiotracer concentration is defined in the acromioclavicular compartments of both shoulders, lateral glenohumeral compartment of the left shoulder, the visualized wrists and hands, the patellofemoral compartments of both knees, the dorsal medial compartments of both ankles, the bilateral mid and forefoot, ninth thoracic vertebra posteriorly on the left and right. 2. Enhanced uptake is noted in the bilateral proximal tibial metaphyses. 3. The remaining skeletal structures are scintigraphically unremarkable with normal-appearing renal images and urinary bladder activity identified. NM/Bone Scan Whole Body IMPRESSION: 1. The increase in radiopharmaceutical defined in the bilateral shoulders, the visualized right and left hands, both wrist articulations, the knees bilaterally, bilateral ankles, the right-left mid and forefoot, the ninth thoracic vertebra is commensurate with degenerative arthrosis. 2. Prominent tracer distribution defined in the bilateral proximal femoral metaphysis is of uncertain etiology. This may represent a marrow expansion process. Plain film radiography correlation may be of benefit. Electronically Signed: Juan Smith, at 23:36 EDT ,
== END | disposition home or self-care (01) ==
LOC: NM 09:53
PROVIDERS: PCP Family Medicine; Referring Provider Internal Medicine Medical Oncology; Visit Provider Internal Medicine Medical Oncology
DX: C18.9 Malignant neoplasm of colon, unspecified (principal)
CPT/HCPCS: 78306; A9503

== ENCOUNTER → 2022-12-31 | Outpatient (CLI) | payer MEDICARE, OTHER, SELFPAY ==
--- NOTE | 2022-12-31 14:57 | CT_ITS ---
STUDY: CT BRAIN WITH AND WITHOUT CONTRAST REASON FOR EXAM: Female, 72 years old. Metastatic disease evaluation RADIATION DOSAGE (If Supplied By Facility): CTDIvol = ( 44.99 ) mGy, DLP = ( 1479.73 ) mGycm TECHNIQUE: Transaxial CT imaging of the brain was performed pre and post contrast administration. The examination was performed with intravenous administration of IV-50 ML ISOVUE 370. Individualized dose optimization techniques were used for this CT. COMPARISON: MRI December 04, 2022, FINDINGS: Normal soft tissue structures. Normal calvarium. Normal size ventricles and extra-axial spaces for the patient''s age. Normal white matter tracts of the cerebral hemispheres. Normal basal ganglia and thalami. Normal brainstem. There is a nonenhancing focus of low attenuation within the right side of the cerebellum suggesting a prior small focus of ischemic change rather than mass. There is no intracranial hemorrhage. There are no findings of an acute ischemic infarction. Normal visualized paranasal sinuses. CT/Brain/Head W/WO Contrast IMPRESSION: There is mild atrophy. There is no visualized enhancing mass or extra-axial fluid collection. There is a focus of low attenuation within the right side of the cerebellum that is suggestive of a possible prior focus of ischemic change encephalomalacia, possible arachnoid cyst versus less likely possibility of an nonenhancing metastatic focus. A comparison to remote images may be helpful for further clarification. Otherwise recommend continued follow-up in the short-term interval bases. Electronically Signed: Ban Benavides MD at 0:23 EDT ,
[2022-12-31 15:32] LABS: CREATININE FINGERSTICK < 0.9 mg/dL (0.55-1.02); EGFR FINGERSTICK > 60.0000 mL/min (>60)
== END | disposition home or self-care (01) ==
LOC: CT 14:56
PROVIDERS: PCP Family Medicine; Referring Provider Internal Medicine Medical Oncology; Visit Provider Internal Medicine Medical Oncology
DX: C18.9 Malignant neoplasm of colon, unspecified (principal)
CPT/HCPCS: 70470; Q9967

== ENCOUNTER 2023-02-17 06:06 | Day surgery (SDC) | payer MEDICARE, OTHER, SELFPAY ==
[2023-02-17] VITALS (7 sets, daily range): BP systolic 101–126; BP diastolic 47–57; PULSE 68–89; RESP 16–18; TEMP 36.2–36.3; O2SAT 94–96; BMI 37.4
[2023-02-17] MEDS: Lactated Ringers 1,000 ML 15 ML IV (06:45)
--- NOTE | 2023-02-17 06:52 | HP.PCM_ITS ---
[facility] - General General Date of Service: 02/17/23 HPI Narrative YAMILE RODRIGUEZ, is a 72 F who presents for colonoscopy due to abnormal PET scan. Patient is status post right hemicolectomy due to colon cancer on 08/22/2021. Patient denies any other changes since seen in office in January. office visit 01/06/23 [facility] Surgical H&P: Yes HPI: 72-year-old female presents for follow-up colonoscopy 1 year after right hemicolectomy. Patient had a right hemicolectomy on 08/22/2021?22 nodes negative, T3. Patient CEA has been increasing slightly is again back down after surgery was 3 went up to 6 then 8 now back down to 6. Patient had a PET scan questioned some enhancement in the mesentery near the anastomosis as well as left iliac and patient also had follow-up brain MRIs and CAT scans. Patient's bone scan was also negative. Patient states she has had daily diarrhea since surgery patient is also newly diagnosed diabetic and been on metformin. Patient has bowel movements daily denies any blood. Patient's mom did have colon cancer 3 times. [facility] Medical History (Updated 02/13/23 @ 09:54 by Chrissy Luu) Ambulates with cane Anemia Arthritis Atrial thrombus Bruising Cancer Cardiology follow-up encounter Chronic anticoagulation Chronic combined systolic and diastolic heart failure Colon cancer Colonic mass COPD (chronic obstructive pulmonary disease) CVA (cerebral vascular accident) (~2006) Depression Diabetes Diarrhea Dietary restriction Easy bruising Elevated TSH Essential hypertension Former smoker Gastric reflux History of anxiety History of echocardiogram History of edema History of irregular heartbeat History of rheumatic fever as a child PAD (peripheral artery disease) PFO with atrial septal aneurysm Post-menopausal Shortness of breath on exertion Thyroid disease TIA (transient ischemic attack) Walker as ambulation aid Wears dentures Wears glasses Home Medications albuterol sulfate 90 mcg/actuation aerosol inhaler (Proventil HFA) 2 puff inhalation Q4H PRN Wheezing 12/09/18 [History Last Taken 08/16/21] warfarin 5 mg tablet 5 mg PO QODAY BLOOD THINNER 12/09/18 [History Last Taken 02/12/23] warfarin 3 mg tablet 3 mg PO QODAY BLOOD THINNER 04/28/19 [History Last Taken 02/11/23] levothyroxine 88 mcg tablet (Euthyrox) 88 mcg PO DAILY THYROID 08/15/21 [History Last Taken 02/17/23] albuterol sulfate 90 mcg/actuation aerosol inhaler (Proventil HFA) 2 puff inhalation Q4H PRN shortness of breath or wheezing 09/14/21 [History Last Taken Unknown] furosemide 40 mg tablet 40 mg PO BID 09/14/21 [History Last Taken Unknown] dapagliflozin propanediol 10 mg tablet (Farxiga) 10 mg PO DAILY 04/15/22 [History Last Taken Unknown] linagliptin 5 mg tablet (Tradjenta) 5 mg PO DAILY 01/06/23 [History Last Taken Unknown] metformin 500 mg tablet 1,000 mg PO BID 01/06/23 [History Last Taken Unknown] potassium citrate 15 mEq (1,620 mg) tablet,extended release 15 meq PO DAILY 02/13/23 [History Last Taken Unknown] Allergy/AdvReac Type Severity Reaction Status Date / Time codeine Allergy Severe anaphylaxis Verified 02/13/23 09:34 Family History Father Myocardial infarction Cancer lung CVA (cerebral vascular accident) Mother Colon cancer Brother Diabetes CAD (coronary artery disease) open heart surgery Surgical History (Updated 02/13/23 @ 09:54 by Chrissy Luu) History of appendectomy History of cholecystectomy History of hysterectomy Hx of colonoscopy Hx of right hemicolectomy S/P right hemicolectomy Social History Smoking Status: Former smoker how long ago did patient quit smokin years ago alcohol intake: never substance use type: does not use caffeine: Yes Type: tea Number of servings: 2 Past Medical/Surgical History Planned Operation Planned Operative Procedure/s: COLONOSCOPY Previous Hospitalizations/Surgeries HX Hospitalizations: No HX of Surgeries: h/o cva's maryanne hysterectomy Any Problems With Anesthesia: No You/Your Family Experience Fever (Hyperthermia) With Anes: No Cholinesterase deficiency: No Cardiovascular Hx Chest Pain within Last 2 months: No Hx Heart Attack: No Hx Hypertension: No (NO MEDS PER PCP) Hx Cardiac Surgery/Stents/Etc.: No Respiratory Hx Chronic Obstructive Pulmonary Disease (COPD): Yes Hx Asthma: No Hx Emphysema: No Hx Sleep Apnea: No Hx Respiratory Tract Infection/Cold (presently): No Do You Snore Loudly (louder than talking or can be heard): No Do You Often Feel Tired/ Fatigued/ Sleepy Dring Daytime?: No Has Anyone Observed You Stop Breathing During Sleep?: No Result (for STOP score): Negative Hx Smoking: No Smoking Status: Former smoker Gastrointestinal Special diet followed at home: Yes Neurological Hx Seizures: No Hx Multiple Sclerosis: No Does patient have nerve stimulator: No Blood Disorder Hx Anemia: No Genitourinary Hx Renal Disease: No Hx Dialysis: No Musculoskeletal Hx Arthritis: Yes Hx Rheumatoid Arthritis: No Endocrine Hx Diabetes: No Thyroid Disease: Yes Psycho/Social Hx Depression: No Hx Dementia: No Miscellaneous Hx Cancer: No Recent Exposure to Contagious Disease: No Allergies codeine Allergy (Severe, Verified 02/13/23 09:34) anaphylaxis Discharge Is Pt Admitted From a Group Home, or a [facility]: No After D/C, Where Do you Plan to Go: Return Home From the PAT History Number of Risk Factors: 3 Physical Exam Const alert, oriented x3 and no apparent distress HEENT normocephalic and head/scalp atraumatic Resp normal respiratory effort Cardio regular rate GI soft to palpation and non-tender; Negative for non-distended Palpation: Negative for guarding Extremity no clubbing, cyanosis or edema Neuro CN's II-XII intact bilaterally Psych mental status grossly normal Assessment & Plan Assessment/Plan (1) Colon cancer: QUALIFIERS: Colon location: ascending Qualified Code(s): C18.2 - Malignant neoplasm of ascending colon (2) S/P right hemicolectomy: (3) Abnormal gastrointestinal PET scan: Surgery Risks - Colonoscopy I discussed with the patient the risks of the procedure: Yes Risks Include but are not Limited To: Risks include but are not limited to: Bleeding, perforation requiring further surgery, inability to complete colonoscopy requiring barium enema.
[2023-02-17 07:18] LABS: Bedside Glucose 171 mg/dL (74-106)
--- NOTE | 2023-02-17 08:02 | OP.COLON_ITS ---
Patient Name: Elizabeth Henley Procedure Date: 02/17/2023 7:25 AM Date of : 1950 Age: 72 Procedure: Colonoscopy Indications: Abnormal PET scan of the GI tract Providers: Michelle Paige MD Referring MD: Alejandro Rosales Medicines: Monitored Anesthesia Care Patient Profile: This is a 72 year old female. Last Colonoscopy: within the past 3 years. Complications: No immediate complications. Procedure: Pre-Anesthesia Assessment: - Prior to the procedure, a History and Physical was performed, and patient medications and allergies were reviewed. The patient's tolerance of previous anesthesia was also reviewed. The risks and benefits of the procedure and the sedation options and risks were discussed with the patient. All questions were answered, and informed consent was obtained. Prior Anticoagulants: The patient has taken Coumadin (warfarin), last dose was 5 days prior to procedure. ASA Grade Assessment: Per anesthesia. After reviewing the risks and benefits, the patient was deemed in satisfactory condition to undergo the procedure. After I obtained informed consent, the scope was passed under direct vision. Throughout the procedure, the patient's blood pressure, pulse, and oxygen saturations were monitored continuously. The was introduced through the anus and advanced to the ileocolonic anastomosis. The colonoscopy was performed without difficulty. The patient tolerated the procedure well. The quality of the bowel preparation was adequate to identify polyps--fibrous debris present in transverse colon. Scope In: 7:34:48 AM Scope Withdrawal Time 0 hours 7 minutes 0 seconds Scope Out: 7:51:40 AM Total Procedure Duration Time 0 hours 16 minutes 52 seconds Findings: The perianal and digital rectal examinations were normal. Previous colonic anastomosis widely patent. Non-bleeding internal hemorrhoids were found. The hemorrhoids were Grade I (internal hemorrhoids that do not prolapse). Impression: - Non-bleeding internal hemorrhoids. - No specimens collected. Recommendation: - Discharge patient to home. - Resume previous diet. - Continue present medications. - Resume Coumadin (warfarin) at prior dose today. - Repeat colonoscopy in 1 year for surveillance-due to fibrous debris. Procedure Code(s): --- Professional --- 80665, Colonoscopy, flexible; diagnostic, including collection of specimen(s) by brushing or washing, when performed (separate procedure) Diagnosis Code(s): --- Professional --- K64.0, First degree hemorrhoids R93.3, Abnormal findings on diagnostic imaging of other parts of digestive tract CPT copyright 2017 [employer]. All rights reserved. The codes documented in this report are preliminary and upon insemination worker review may be revised to meet current compliance requirements. MD Michelle Rinaldi MD 02/17/2023 8:02:23 AM This report has been signed electronically. Number of Addenda: 0 Note Initiated On: 02/17/2023 7:25 AM
--- NOTE | 2023-02-17 08:03 | OP.CCLET_ITS ---
02/17/2023 Alejandro Rosales [address] [place] [address] Re : Colonoscopy procedure for Elizabeth Macdonaldr Dear Dr. Rosales This procedure was performed on Friday, February 17, 2023. My impressions and recommendations are as follows: Impressions : - Non-bleeding internal hemorrhoids. - No specimens collected. Recommendations : - Discharge patient to home. - Resume previous diet. - Continue present medications. - Resume Coumadin (warfarin) at prior dose today. - Repeat colonoscopy in 1 year for surveillance-due to fibrous debris. My findings are described in the full procedure note, which is enclosed. If I can be of further assistance, please feel free to contact me at Doctor phone number(s): , Work: . Sincerely, MD Michelle Rinaldi MD 02/17/2023 8:02:23 AM This report has been signed electronically.
== END 2023-02-17 08:36 | disposition home or self-care (01) ==
LOC: EN 06:06 → AC 06:07
PROVIDERS: PCP Family Medicine; Referring Provider Family Medicine; Visit Provider Surgery
PROC: 0DJD8ZZ Inspection of Lower Intestinal Tract, Via Natural or Artificial Opening Endoscopic (ICD-10-PCS; CPT 45378; principal; 2023-02-17 07:25)
DX: C18.2 Malignant neoplasm of ascending colon (principal); E11.51 Type 2 diabetes mellitus with diabetic peripheral angiopathy without gangrene; J44.9 Chronic obstructive pulmonary disease, unspecified; I11.0 Hypertensive heart disease with heart failure; I50.42 Chronic combined systolic (congestive) and diastolic (congestive) heart failure; Z87.891 Personal history of nicotine dependence; K64.0 First degree hemorrhoids; Z80.0 Family history of malignant neoplasm of digestive organs; Z79.01 Long term (current) use of anticoagulants; E07.9 Disorder of thyroid, unspecified; R93.3 Abnormal findings on diagnostic imaging of other parts of digestive tract
CPT/HCPCS: 45378; 82962; J7120; J2405

== ENCOUNTER → 2024-04-19 | Outpatient (CLI) | payer MEDICARE, OTHER, SELFPAY ==
[2024-04-19 15:06] LABS: Absolute Lymphocyte Count 1.58 X10^3/uL (0.83-4.51); Absolute Neutrophil Count 4.4 X10^3/uL (2.0-7.7); Basophil# 0.04 X10^3/uL; Basophil% 0.6 % (0-1); Eosinophils% 1.5 % (0-5); Hemoglobin 13.7 g/dL (12.0-15.0); Lymphocyte # 1.58 X10^3/ul (0.83-4.51); Mean Corp Hgb Conc 29.8 g/dL (32-36); Mean Corpuscular Hgb 26.6 pg (27.0-32.0); Mean Corpuscular Volume 89.3 fL (81-99); Mean Platelet Vol. 10.5 fl (6.2-12.0); Monocyte# 0.47 X10^3/uL; Monocyte% 7.1 % (0-10); NRBC Flagged by Analyzer 0 % (0-5); Neutrophil # 4.39 X10^3/uL (2.7-7.7); Neutrophil % 66.6 % (47-70); Platelet Count 193 K/mm3 (150-450); RBC Distribution Width CV 17.2 % (11.6-14.6); RBC Distribution Width SD 55.1 fl (35.1-43.9); Red Blood Count 5.15 M/mm3 (4.2-5.4); White Blood Count 6.6 K/mm3 (4.4-11.0)
[2024-04-19 15:34] LABS: Hemoglobin A1c 6.6 % (3.8-5.6)
[2024-04-19 16:09] LABS: ALB/GLOB Ratio 0.9 RATIO (0.9-2.4); AST(SGOT) 17 U/L (15-37); Alanine Aminotransfer ALT/SGPT 16 U/L (13-56); Albumin, Serum 3.6 g/dL (3.2-5.0); Alkaline Phosphatase 114 U/L (45-117); Anion Gap 7 (5-15); BUN 14 mg/dL (7-18); BUN/Creat Ratio 15.8 RATIO (10-20); Calcium,Total 9.7 mg/dL (8.5-10.1); Chloride 103 mmol/L (98-107); Creatinine, Serum 0.89 mg/dL (0.55-1.02); EST Glomerular Filtration Rate 67 mL/min (>60); Est Glom Filt Rate - Afr Amer 81 mL/min (>60); Ferritin 93 ng/mL (8-252); Globulin 4.2 g/dL (2.2-4.2); Glucose 103 mg/dL (74-106); Potassium 3.5 mmol/L (3.5-5.1); Protein, Total 7.8 g/dL (6.4-8.2); Sodium Level 137 mmol/L (136-145)
[2024-04-19 16:58] LABS: BNP,B-Type NATRIURETIC PEPTIDE 58.6 pg/mL (0-100)
[2024-04-19 16:58] LABS: Vitamin B12 310 pg/mL (211-911)
== END | disposition home or self-care (01) ==
PROVIDERS: PCP Family Medicine; Referring Provider Family Medicine; Visit Provider Family Medicine
DX: E11.69 Type 2 diabetes mellitus with other specified complication (principal); I50.42 Chronic combined systolic (congestive) and diastolic (congestive) heart failure; I48.91 Unspecified atrial fibrillation; D64.9 Anemia, unspecified; E03.9 Hypothyroidism, unspecified
CPT/HCPCS: 80053; 82043; 82570; 82607; 82728; 82746; 83036; 83880; 84439; 84443; 85025

== ENCOUNTER 2024-09-14 10:30 | Outpatient (CLI) | payer MEDICARE, OTHER, SELFPAY ==
--- NOTE | 2024-09-14 10:39 | RAD_ITS ---
PROCEDURE: FINGER(S) MIN 2 VIEWS REASON FOR EXAM: Woke up this morning with 4th digit pain. No injury noted. TECHNIQUE: 3 view(s) of the left 4th finger COMPARISON: None RAD/Finger(s) Min 2 Views IMPRESSION: Mild degenerative changes are seen at the interphalangeal joints of the left 4t h finger. Soft tissue swelling is seen about the proximal interphalangeal joint, most pro minent posteriorly. Satisfactory alignment is noted. No erosive process is seen. No fracture or dislocation is evident. Reading Location: [id number]
[2024-09-14 12:16] LABS: Microalbumin,Random Urine 73.4 mg/L (NO RANGE EST.)
[2024-09-14 12:36] LABS: Erythrocyte Sedimentation Rate 46 mm/hr (0-30)
[2024-09-14 12:44] LABS: Absolute Lymphocyte Count 1.72 X10^3/uL (0.83-4.51); Absolute Neutrophil Count 5.2 X10^3/uL (2.0-7.7); Basophil# 0.04 X10^3/uL; Basophil% 0.5 % (0-1); Eosinophils% 1.3 % (0-5); Hematocrit 46.8 % (37-47); Hemoglobin 15.1 g/dL (12.0-15.0); Lymphocyte # 1.72 X10^3/ul (0.83-4.51); Lymphocyte % 22.3 % (19-41); Mean Corp Hgb Conc 32.3 g/dL (32-36); Mean Corpuscular Volume 86.7 fL (81-99); Mean Platelet Vol. 10.5 fl (6.2-12.0); Monocyte# 0.63 X10^3/uL; Monocyte% 8.2 % (0-10); NRBC Flagged by Analyzer 0 % (0-5); Neutrophil # 5.19 X10^3/uL (2.7-7.7); Neutrophil % 67.4 % (47-70); Platelet Count 201 K/mm3 (150-450); RBC Distribution Width SD 47.6 fl (35.1-43.9); White Blood Count 7.7 K/mm3 (4.4-11.0)
[2024-09-14 13:49] LABS: ALB/GLOB Ratio 0.7 RATIO (0.9-2.4); AST(SGOT) 14 U/L (15-37); Alanine Aminotransfer ALT/SGPT 15 U/L (13-56); Albumin, Serum 3.2 g/dL (3.2-5.0); Alkaline Phosphatase 104 U/L (45-117); Anion Gap 6 (5-15); BUN 11 mg/dL (7-18); BUN/Creat Ratio 11.3 RATIO (10-20); Calcium,Total 9.3 mg/dL (8.5-10.1); Chloride 105 mmol/L (98-107); Creatinine, Serum 0.97 mg/dL (0.55-1.02); EST Glomerular Filtration Rate 60 mL/min (>60); Est Glom Filt Rate - Afr Amer 72 mL/min (>60); Globulin 4.4 g/dL (2.2-4.2); Glucose 132 mg/dL (74-106); Potassium 3.6 mmol/L (3.5-5.1); Protein, Total 7.6 g/dL (6.4-8.2); Rheumatoid Factor < 10.0 IU/mL (<15); Sodium Level 138 mmol/L (136-145); Uric Acid 5.9 mg/dL (2.6-6.0)
[2024-09-15 13:07] LABS: ANTINUCLEAR ANTIBODIES DIRECT Negative (Negative)
[2024-09-15 16:08] LABS: PROEL- A/G Ratio 0.8 (0.7-1.7); PROEL- Albumin 3.1 g/dL (2.9-4.4); PROEL- Alpha-1 Globulin 0.3 g/dL (0.0-0.4); PROEL- Alpha-2 Globulin 0.8 g/dL (0.4-1.0); PROEL- Beta Globulin 1.2 g/dL (0.7-1.3); PROEL- Gamma Globulin 1.4 g/dL (0.4-1.8); PROEL- Globulin, Total 3.7 g/dL (2.2-3.9); PROEL- TOTAL PROTEIN 6.8 g/dL (6.0-8.5); PROEL-M-Spike Not Observed g/dL (Not Observed)
== END 2024-09-14 23:59 | disposition home or self-care (01) ==
LOC: MTLAB 10:32
PROVIDERS: PCP Family Medicine; Referring Provider Family Medicine; Visit Provider Family Medicine
DX: M79.89 Other specified soft tissue disorders (principal); E11.69 Type 2 diabetes mellitus with other specified complication; M13.0 Polyarthritis, unspecified
CPT/HCPCS: 73140; 80053; 82043; 82570; 84165; 84550; 85025; 85652; 86038; 86140; 86431

== ENCOUNTER → 2024-09-17 | Outpatient (CLI) | payer MEDICARE, OTHER, SELFPAY ==
[2024-09-17 17:56] LABS: International Normalized Ratio 1.8; Prothrombin Time (Protime)PT. 21.7 SECONDS (11.7-14.9)
== END | disposition home or self-care (01) ==
PROVIDERS: PCP Family Medicine; Referring Provider Family Medicine; Visit Provider Family Medicine
DX: Z79.01 Long term (current) use of anticoagulants (principal)
CPT/HCPCS: 36415; 85610

== ENCOUNTER 2024-09-21 10:42 | Outpatient (RCR) | payer MEDICARE, OTHER, SELFPAY ==
[2024-09-21 12:54] LABS: International Normalized Ratio 2.7; Prothrombin Time (Protime)PT. 29.2 SECONDS (11.7-14.9)
== END 2024-10-01 18:00 | disposition home or self-care (01) ==
LOC: MTLAB 10:42
PROVIDERS: PCP Family Medicine; Referring Provider Family Medicine; Visit Provider Family Medicine
DX: Z79.01 Long term (current) use of anticoagulants (principal)
CPT/HCPCS: 36415; 85610

== ENCOUNTER → 2024-09-22 | Outpatient (CLI) | payer MEDICARE, OTHER, SELFPAY ==
--- NOTE | 2024-09-22 10:16 | BI_ITS ---
PROCEDURE: SCRN MAMM (CAD)W/STEPHANIE BILAT REASON FOR EXAM: F, Age 74 y/o, aunt with breast cancer. TECHNIQUE: Bilateral screening digital breast tomosynthesis with 2D and 3D images. Computer aided detection. COMPARISON: Prior exam(s) dating back to May 22, 2021.. FINDINGS: The breasts are heterogeneously dense which may obscure small masses. Stable examination. No suspicious masses, areas of developing architectural distortion, or suspicious calcifications. BI/SCRN MAMM (CAD)W/STEPHANIE BILAT IMPRESSION: BI-RADS 2: BENIGN. RECOMMEND ANNUAL MAMMOGRAPHIC SCREENING. Follow-up code: Routine Follow-up The patient will be notified of the results by letter. Reading Location: [place] [id number]
== END | disposition home or self-care (01) ==
LOC: OPBI 10:15
PROVIDERS: PCP Family Medicine; Referring Provider Family Medicine; Visit Provider Family Medicine
DX: Z12.31 Encounter for screening mammogram for malignant neoplasm of breast (principal); Z80.3 Family history of malignant neoplasm of breast
CPT/HCPCS: 77063; 77067

== ENCOUNTER 2024-11-08 15:18 | Emergency (ER) | payer MEDICARE, OTHER, SELFPAY ==
[2024-11-08 15:24] VITALS: BP 151/74; PULSE 83; RESP 19; TEMP 36.7; O2SAT 94
[2024-11-08 15:26] VITALS: O2SAT 93; BMI 38.9
--- NOTE | 2024-11-08 15:26 | EKG12_ITS ---
Test Reason : Blood Pressure : */* mmHG Vent. Rate : 58 BPM Atrial Rate : * BPM P-R Int : * ms QRS Dur : 98 ms QT Int : 422 ms P-R-T Axes : * 107 55 degrees QTcB Int : 414 ms Atrial fibrillation with slow ventricular response Possible Lateral infarct , age undetermined Abnormal ECG Confirmed by BENITO HERNÁNDEZ, KRISTIAN ([id number]), editor producer MICHELLE OJEDA ([id number]) on 11/09/2024 8:10:31 AM Referred By: ANALY Confirmed By: KRISTIAN OLIVER MD
--- NOTE | 2024-11-08 15:26 | CT_ITS ---
EXAM: STROKE BRAIN/HEAD WITHOUT CONT CLINICAL HISTORY: 74 y/o F with NEURO DEFICIT, ACUTE, STROKE SUSPECTED. COMPARISON: None. TECHNIQUE: Routine CT imaging of the head without IV contrast. Additional multiplanar reformats were obtained. Dose reduction techniques were used including intermediate exposure control (AEC),iterative reconstruction technique, and/or mA and/or KV dose adjustments based on patient's size. FINDINGS: Mild generalized cerebral volume loss with concordant prominence of the ventricles and subarachnoid spaces. Chronic lacunar type infarct within the left basal ganglia. Moderate patchy supratentorial white matter hypodensities. The egan-white matter interfaces are otherwise maintained. No acute intracranial hemorrhage or herniation. The orbits, visualized paranasal sinuses and mastoids are unremarkable. No acute calvarial fracture or scalp hematoma. CT/STROKE Brain/Head without Cont IMPRESSION: 1. No acute intracranial finding. 2. Findings of chronic microvascular ischemic changes and age-related changes. Reading Location: [id number]
[2024-11-08 15:27] VITALS: BMI 36.8
--- NOTE | 2024-11-08 15:27 | CT_ITS ---
PROCEDURE: STROKE CTA HEAD AND NECK W/CON 11/08/2024 REASON FOR EXAM: NEURO DEFICIT, ACUTE, STROKE SUSPECTED, R SIDED TECHNIQUE: CTA imaging of the head and neck from the aortic arch to the skull vertex with intravenous contrast. Coronal and Sagittal reconstruction series were provided. 3D, 3D post processing, 3D reconstructions, Maximum intensity projection (MIPs) Volume rendering and Shaded surface rendering was provided. CONTRAST: Isovue 370 VOLUME: 100 mL One or more dose reduction techniques were used (e.g., Automated exposure control, adjustment of the mA and/or kV according to patient size, use of iterative reconstruction technique). RADIATION DOSE SUMMARY: CTDlvol: 46 mGy DLP: 815 mGycm COMPARISON: Same-day CT head. FINDINGS: See same day noncontrast CT head for discussion of nonvascular findings. Three-vessel aortic arch with mild calcific plaque of the origin of the left subclavian artery off the aortic arch resulting in mild stenosis. The bilateral vertebral arteries are widely patent without focal stenosis or occlusion. The left cervical carotid artery, carotid bulb and internal carotid artery are widely patent without focal stenosis or narrowing by NASCET criteria. Minimal calcific plaque of the right cervical internal carotid artery without significant narrowing by NASCET criteria. Moderate calcific plaque of the bilateral carotid siphons resulting in mild multifocal narrowing. The bilateral anterior, right middle, and bilateral posterior cerebral arteries are widely patent. Focal high-grade stenosis/occlusion of the M1 segment of the left MCA, measuring approximately 0.4 cm (series 2, image 400). There is normal distal reconstitution of the distal M1. No aneurysm or arteriovenous malformation. Major venous structures: Unremarkable. Other findings: Cervical spondylosis. CT/STROKE CTA Head AND Neck W/Con IMPRESSION: 1. 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 Findings are indeterminate in chronicity. Recommend CT perfusion or neurointerventional consult for furth er evaluation. 2. Moderate calcific plaque of the bilateral carotid siphons resulting in mild multifocal narrowing. 3. Mild calcific plaque of the left subclavian artery just distal to its origin resulting in mild stenosis. Dr. Gaston discussed these findings with Dr. Maldonado via telephone at 4:25 p.m . on 11/08/2024. Reading Location: [facility]
--- NOTE | 2024-11-08 15:27 | EDS_ITS ---
HPI History of Present Illness Chief Complaint: Stroke Alert [facility] Medical History Post-menopausal Thyroid disease Diabetes TIA (transient ischemic attack) Dietary restriction Diarrhea Gastric reflux History of edema History of irregular heartbeat Colon cancer Cardiology follow-up encounter Cancer Colonic mass Elevated TSH Anemia Wears glasses Wears dentures Depression Bruising Arthritis Walker as ambulation aid Ambulates with cane Easy bruising Former smoker COPD (chronic obstructive pulmonary disease) Shortness of breath on exertion History of echocardiogram Chronic anticoagulation PAD (peripheral artery disease) History of rheumatic fever as a child History of anxiety PFO with atrial septal aneurysm Atrial thrombus CVA (cerebral vascular accident) (~2006) Essential hypertension Chronic combined systolic and diastolic heart failure Home Medications ?Medication ?Instructions ?Recorded ?Last Taken ?Type albuterol sulfate 90 mcg/actuation 2 puff inhalation Q 4H PRN Wheezing 12/09/18 08/16/21 History aerosol inhaler (Proventil HFA) warfarin 5 mg tablet 5 mg PO QODAY BLOOD THINNER 12/09/18 02/12/23 History warfarin 3 mg tablet 3 mg PO QODAY BLOOD THINNER 04/28/19 02/11/23 History levothyroxine 88 mcg tablet 88 mcg PO DAILY THYROID 02/17/23 History (Euthyrox) albuterol sulfate 90 mcg/actuation 2 puff inhalation Q 4H PRN 09/14/21 Unknown History aerosol inhaler (Proventil HFA) shortness of breath or wheezing furosemide 40 mg tablet 40 mg PO BID 09/14/21 Unknow n History dapagliflozin propanediol 10 mg 10 mg PO DAILY 2 Unknown History tablet (Farxiga) linagliptin 5 mg tablet (Tradjenta) 5 mg PO DAILY 12/24 Unknown History metformin 500 mg tablet 1,000 mg PO BID 01/06/23 Unk nown History potassium citrate 15 mEq (1,620 15 meq PO DAILY Unknown History mg) tablet,extended release colchicine 0.6 mg capsule mg PO 09/30/24 Unknown Histo ry doxycycline hyclate 100 mg tablet 100 mg PO BID Unknown History Allergy/AdvReac Type Severity Reaction Status Date / Time codeine Allergy Severe anaphylaxis Verified 09/30/24 15:16 Family History Father Myocardial infarction Cancer lung CVA (cerebral vascular accident) Mother Colon cancer Brother Diabetes CAD (coronary artery disease) open heart surgery Family History no significant family his Surgical History Hx of right hemicolectomy S/P right hemicolectomy Hx of colonoscopy History of hysterectomy History of appendectomy History of cholecystectomy Social History Smoking Status: Former smoker how long ago did patient quit smokin years ago alcohol intake: never substance use type: does not use caffeine: Yes Type: tea Number of servings: 2 EXAM Physical Exam Const Vital Signs: 11/08/24 15:24 11/08/24 15:26 11/08/24 15:50 Temperature 98.1 F Temperature Source Oral Pulse Rate 83 83 Respiratory Rate 19 H 21 H Blood Pressure 151/74 H 141/45 H Blood Pressure Mean 99 77 Pulse Ox 94 93 94 Oxygen Delivery Method Room Air Room Air Oxygen Flow Rate (L/min) 11/08/24 15:56 11/08/24 16:30 11/08/24 17:00 Temperature 98.1 F Temperature Source Pulse Rate 63 58 L 58 L Respiratory Rate 17 19 H 19 H Blood Pressure 141/45 H 147/58 H 147/58 H Blood Pressure Mean 77 87 87 Pulse Ox 94 97 97 Oxygen Delivery Method Room Air Nasal Cannula Oxygen Flow Rate (L/min) 2 MDM MDM MDM Narrative Medical decision making narrative: HISTORY OF PRESENT ILLNESS: Chief complaint: Stroke team 74-year-old female history of CVA, A-fib on Coumadin, peripheral artery disease, hypertension, heart failure presents with concern for acute stroke. She is accompanied by her daughter. Last known well was approximately 8 AM on 11/08/2024. States she has been compliant with home Coumadin. Further states she has had no recent illnesses falls or trauma. Daughter states when the patient picked her up for an eye doctor appointment she noticed her face was drooping on the right and she had weakness in the right arm. She also noted some slurred speech. The patient does not provide reliable history as she is dysarthric. REVIEW OF SYSTEMS: Unable to obtain an accurate review of systems secondary to the patient's clinical status PHYSICAL EXAM: Nursing triage notes reviewed, Vital signs reviewed Constitutional: please see mdm HENT: MMM Eyes: Pupils equal round and reactive to light, Extraocular muscles intact Neck: No stridor, no JVD, full neck ROM Lungs: Clear to auscultation, No wheezing or rales. No increased work of breathing, no conversational dyspnea, no accessory muscle use, no nasal flaring. No respiratory distress noted Heart: Regular rate and rhythm, No murmurs, No rubs and No gallops, 2+ distal pulses (radial, femoral, posterior tibial) in all extremities Abdomen: Soft, there is no tenderness, rigidity, rebound or guarding, no obvious peritoneal signs, no palpable pulsatile abdominal masses, no auscultated abdominal bruit : No CVAT Extremities: No edema Neuro: Alert, follows some commands, obvious aphasia and dysarthria, obvious right-sided facial droop, patient would not follow to the right although this may be due to sequela of prior CVA with right eye blindness. Skin: No rash or lesions noted MEDICAL DECISION MAKING: Chief Complaint: please see [facility] External records reviewed: Reviewed prior imaging studies: Reviewed CT scan of the brain from December 2022 which showed no mass, there is atrophy, no hemorrhage. Reviewed MRI from December 2022 which showed no acute infarct factors affecting care: n as per HPI Social determinants of health: none History obtained from others: Daughter Consults: Radiology (noted right MCA occlusion), Stroke Neurology (noted LVO, recommended emergent transfer thrombectomy), [facility], [facility] (Dr. [facility]sorio, accepted in transfer), Dr. Rosales (PCP) - noted INR from earlier in the day. Also discussed with pharmacy MDM Narrative: The patient was initially hemodynamically stable, afebrile nontoxic-appearing. Initial neurologic exam with NIH of at least 8 although cannot complete a full exam secondary to patient not being able to follow all commands. Given multiple signs of acute neurologic deficits patient was sent directly to our CT scanner per stroke team, stroke alert or code stroke protocol. The patient is currently on Coumadin/warfarin so she is not a candidate for TNK however her symptoms are within 24 hours so she is still a candidate for thrombectomy. I considered the following differential diagnosis: Acute CVA, TIA, mass, ICH, Stiven's paralysis, focal seizure ALL IMAGES (IF OBTAINED) HAVE BEEN PERSONALLY REVIEWED AND INTERPRETED BY MYSELF. CT scan of the brain showed no evidence of ICH CTA of the head and neck showed evidence of a right M1 occlusion INR 1.6 Initial troponin negative BMP showed no signs of electrolyte disturbances, there is no anion gap to suggest endorgan hypoperfusion. Bicarb normal no sign of metabolic acidosis CBC without leukocytosis, severe anemia, no thrombocytopenia. EKG with rate controlled atrial fibrillation rate of 58, right axis deviation, QT interval 414, no STEMI Given need for thrombectomy and stroke neurology's recommendation to transfer. Transfer by [facility] During the patient CT scan she did have contrast extravasation in the left AC. Is approximately 3 x 5 cm. It was soft. He was minimally tender to palpation. Considered giving hyaluronidase however studies are conflicting and as such I took less is more approach and use warm compresses and elevated the limb. This was also discussed with pharmacy The patient and/or family, caregivers express understanding. The patient and/or family, caregivers agrees with the plan. Shared decision making: I will have a discussion with the patient and or visitors regarding risk/benefits of further testing or admission. They will be made aware of of the risk/benefits inherent in this decision they will be given the opportunity to voice understanding. Total critical care time today provided was at least 60minutes. This excludes separately billable procedures. Critical care time (if documented) is secondary to the patient having high probability of clinically significant/life threatening deterioration in the patient's condition which required my urgent intervention. Impression: 1. Acute CVA 2. History of atrial fibrillation 3. Presence of anticoagulation Dispo: Transfer to [facility] ER This note was generated with [employer] dictation software. It may contain incorrect words, spelling, and punctuation that were not noted in review of the chart prior to signing. Lab Data Labs: Laboratory Results - last 24 hr 11/08/24 11/08/24 15:20 15:25 WBC 9.1 RBC 5.35 Hgb 15.3 H Hct 47.4 H MCV 88.6 MCH 28.6 MCHC 32.3 RDW Std Deviation 49.4 H RDW Coeff of Angela 15.3 H Plt Count 194 MPV 10.0 Immature Gran % (Auto) 0.300 Neut % (Auto) 67.9 Lymph % (Auto) 21.1 Motley % (Auto) 8.2 Eos % (Auto) 1.8 Baso % (Auto) 0.7 Absolute Neuts (auto) 6.2 Absolute Lymphs (auto) 1.91 Nucleated RBC % 0 PT 18.4 H INR 1.5 APTT 34.5 Sodium 139 Potassium 4.2 Chloride 103 Carbon Dioxide 26.1 Anion Gap 10 BUN 13 Creatinine 0.82 Estim Creat Clear Calc 72.42 Est GFR (MDRD) Non-Af 76 BUN/Creatinine Ratio 15.4 Glucose 129 H Calcium 9.3 Troponin T High Sens 20 H POC Glucose 127 H Radiography Diagnostic Testing: Clinical Impression(s) from Imaging Studies Brain CT 11/08/24 15:26 IMPRESSION: 1. No acute intracranial finding. 2. Findings of chronic microvascular ischemic changes and age-related changes. Reading Location: [facility] Head/Neck CTA 11/08/24 15:27 IMPRESSION: 1. 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 Findings are indeterminate in chronicity. Recommend CT perfusion or neurointerventional consult for further evaluation. 2. Moderate calcific plaque of the bilateral carotid siphons resulting in mild multifocal narrowing. 3. Mild calcific plaque of the left subclavian artery just distal to its origin resulting in mild stenosis. Dr. Gaston discussed these findings with Dr. Maldonado via telephone at 4:25 p.m. on 11/08/2024. Reading Location: [facility] Discharge Plan Triage Chief Complaint: Stroke Alert ED Provider: Phillip Maldonado Dx/Rx/DC Orders Prescriptions: No Action albuterol sulfate [Proventil HFA] 90 mcg/actuation HFA aerosol inhaler 2 puff INHALATION Q4H PRN (Reason: Wheezing) warfarin 3 mg tablet 3 mg PO QODAY Patient Comments: Current dose in 3 mg QOD STOP PER ORDERS furosemide 40 mg tablet 40 mg PO BID Patient Comments: TAKE 1 TABLET BY MOUTH ONCE TO TWICE DAILY DIRECTED albuterol sulfate [Proventil HFA] 90 mcg/actuation HFA aerosol inhaler 2 puff inhalation Q4H PRN (Reason: shortness of breath or wheezing) Farxiga 10 mg tablet 10 mg PO DAILY metformin 500 mg tablet 1,000 mg PO BID Tradjenta 5 mg tablet 5 mg PO DAILY doxycycline hyclate 100 mg tablet 100 mg PO BID colchicine 0.6 mg capsule PO Patient Comments: TAKE 2 CAPSULES BY MOUTH HARISH, THEN 1 CAP AN HOUR LATER DIRECTED warfarin 5 mg tablet 5 mg PO QODAY Patient Comments: current dose 5 mg X 3, STOP PER ORDERS levothyroxine [Euthyrox] 88 mcg Tablet 88 mcg PO DAILY potassium citrate 15 mEq tablet extended release 15 meq PO DAILY Patient Comments: TAKE 1 TABLET BY MOUTH TWICE DAILY Primary Care Provider: Alejandro Rosales Referrals: Alejandro Rosales MD [Primary Care Provider] - Print Language: Bengali Disposition Disposition: Acute Care Hospital Discharge Location: [facility] Discharge Date/Time: 11/08/24 17:00
[2024-11-08 15:50] VITALS: BP 141/45; PULSE 83; RESP 21; O2SAT 94
[2024-11-08 15:56] VITALS: BP 141/45; PULSE 63; RESP 17; O2SAT 94
[2024-11-08 15:58] LABS: Absolute Lymphocyte Count 1.91 X10^3/uL (0.83-4.51); Absolute Neutrophil Count 6.2 X10^3/uL (2.0-7.7); Basophil# 0.06 X10^3/uL; Basophil% 0.7 % (0-1); Eosinophil# 0.16 X10^3/uL; Eosinophils% 1.8 % (0-5); Hematocrit 47.4 % (37-47); Hemoglobin 15.3 g/dL (12.0-15.0); Lymphocyte # 1.91 X10^3/ul (0.83-4.51); Lymphocyte % 21.1 % (19-41); Mean Corp Hgb Conc 32.3 g/dL (32-36); Mean Corpuscular Hgb 28.6 pg (27.0-32.0); Mean Corpuscular Volume 88.6 fL (81-99); Monocyte# 0.74 X10^3/uL; Monocyte% 8.2 % (0-10); NRBC Flagged by Analyzer 0 % (0-5); Neutrophil # 6.15 X10^3/uL (2.7-7.7); Neutrophil % 67.9 % (47-70); Platelet Count 194 K/mm3 (150-450); RBC Distribution Width CV 15.3 % (11.6-14.6); RBC Distribution Width SD 49.4 fl (35.1-43.9); Red Blood Count 5.35 M/mm3 (4.2-5.4); White Blood Count 9.1 K/mm3 (4.4-11.0)
[2024-11-08 16:13] VITALS: BMI 38.9
[2024-11-08 16:13] LABS: International Normalized Ratio 1.5; Prothrombin Time (Protime)PT. 18.4 SECONDS (11.7-14.9)
[2024-11-08 16:14] LABS: Partial Thromboplast Time 34.5 Seconds (24.1-36.2)
[2024-11-08 16:18] LABS: Anion Gap 10 (5-15); BUN 13 mg/dL (4-19); BUN/Creat Ratio 15.4 RATIO (10-20); Calcium,Total 9.3 mg/dL (7.6-11.0); Carbon Dioxide 26.1 mmol/L (21.0-32.0); Chloride 103 mmol/L (98-108); Creatinine, Serum 0.82 mg/dL (0.70-1.20); EST Glomerular Filtration Rate 76 (>60); Estimated Creatinine Clearance 72.42 ml/min (50-250); Glucose 129 mg/dL (70-99); Potassium 4.2 mmol/L (3.3-5.1); Sodium Level 139 mmol/L (133-145); Troponin T High Sensitivity 20 ng/L (<=14)
[2024-11-08 16:30] VITALS: BP 147/58; PULSE 58; RESP 19; O2SAT 97
[2024-11-08 17:00] VITALS: BP 147/58; PULSE 58; RESP 19; TEMP 36.7; O2SAT 97
[2024-11-08 17:33] LABS: Bedside Glucose 127 mg/dL (74-106)
--- NOTE | 2024-11-08 19:16 | CM.ED ---
Social Work Reason for visit: Stroke Alert Patient was brought in by daughter who stated her mom came to pick her up when she noted her to have deficits. Daughter brought patient straight to ER. Daughter stated that her mom has had several strokes in the past. Emotional support provided. No further needs at this time. Marcia Alfredo, CELL OPERATION SUPERVISOR, SPINNING FRAME CHANGER
== END 2024-11-08 17:00 | disposition short-term general hospital (02) ==
PROVIDERS: Emergency Provider Emergency Medicine; PCP Family Medicine; Visit Provider Emergency Medicine
DX: I63.233 Cerebral infarction due to unspecified occlusion or stenosis of bilateral carotid arteries (principal); I11.0 Hypertensive heart disease with heart failure; I50.42 Chronic combined systolic (congestive) and diastolic (congestive) heart failure; J44.9 Chronic obstructive pulmonary disease, unspecified; I48.91 Unspecified atrial fibrillation; Z87.891 Personal history of nicotine dependence; Z86.73 Personal history of transient ischemic attack (TIA), and cerebral infarction without residual deficits; Z90.710 Acquired absence of both cervix and uterus; Z90.49 Acquired absence of other specified parts of digestive tract; Z85.038 Personal history of other malignant neoplasm of large intestine; Z79.01 Long term (current) use of anticoagulants; Z79.84 Long term (current) use of oral hypoglycemic drugs
CPT/HCPCS: 70450; 70496; 70498; 80048; 82962; 84484; 85025; 85610; 85730; 93005; 99285; Q9967; A4216

== ENCOUNTER 2024-11-11 18:06 | Inpatient (IN) | payer MEDICARE, OTHER, SELFPAY ==
[2024-11-11 17:02] VITALS: BP 140/49; PULSE 58; RESP 20; O2SAT 94
[2024-11-11 17:45] LABS: Bedside Glucose 128 mg/dL (74-106)
[2024-11-11 18:00] VITALS: BP 133/66; PULSE 94; RESP 16; TEMP 36.4; O2SAT 97
[2024-11-11] MEDS: Atorvastatin Calcium 40 MG Tablet PO (21:03)
[2024-11-11] MEDS: Senna/Docusate Sodium 1 Tablet 2 TABLET PO (21:03)
[2024-11-11] MEDS: Fluticasone/Salmeterol 232-14 Inhaler 1 PUFF INHALATION (21:04)
--- NOTE | 2024-11-11 21:20 | EX.PCM.HP.RE ---
HPI - General General Date of Admission: 11/11/24 Date of Service: 11/11/24 Chief Complaint: Here for 3 hours daily rehabilitation. HPI Narrative YAMILE RODRIGUEZ, is a 74 Female who presents with followin11/08/2024 Admit to [facility] with stroke. 74 year old female with past medical history significant for diabetes mellitus, GERD, anemia, depression, copd, atrial thrombus on coumadin, HTN who presents with level A stroke alert for left M1 occlusion. Stroke alert called fro STAT consultation. LKW unclear, [facility] documentation states LKW 0800 but per EMS report, family had normal conversation with her around 1430 but was not seen by them at that time. Family then picked her up for an appointment and noted dysarthria, and right sided weakness. She initially presented to [facility] where she was seen by Dr. Peters. NIH 2 (2 language). She was offered lytics, but given unclear LKW and INR 1.5, OSH was not comfortable giving. CTH at OSH unremarkable, CTA showed left M1 occlusion with distal reconstitution. She was flown to [facility] for further evaluation. 11/08/2024 CT head: Early ischemic changes in left MCA territory. 11/08/2024 CTA brain/neck: severe L M1 stenosis with distal reconstitution. 11/08/2024 CT Perfusion: Mismatch volume 19cc, mismatch ratio 4.2. Patient not candidate for iv thrombolysis due to clear LKW/INR 1.5 with coumadin use and no thrombectomy due to no clear LVO. She was loaded with Aspirin 325mg, Plavix 300mg daily, then Aspirin 81mg, Plavix 75mg thereafter. PT/OT/ST. NIHSS 6 on admission. Ultimately, patient treated medically, cause of stroke deemed atrial fibrillation, anticoagulation transitioned to Eliquis. 11/11/2024 Admit to with debility, here 3 hours daily rehabilitation, strengthening, prior to discharge home with 22 year old grandson who works nights. [facility] Medical History (Updated 11/11/24 @ 21:[address] Rg Ponce MD) Stroke/cerebrovascular accident Post-menopausal Thyroid disease Diabetes TIA (transient ischemic attack) Dietary restriction Diarrhea Gastric reflux History of edema History of irregular heartbeat Colon cancer Cardiology follow-up encounter Cancer Colonic mass Elevated TSH Anemia Wears glasses Wears dentures Depression Bruising Arthritis Walker as ambulation aid Ambulates with cane Easy bruising Former smoker COPD (chronic obstructive pulmonary disease) Shortness of breath on exertion History of echocardiogram Chronic anticoagulation PAD (peripheral artery disease) History of rheumatic fever as a child History of anxiety PFO with atrial septal aneurysm Atrial thrombus CVA (cerebral vascular accident) (~2006) Essential hypertension Chronic combined systolic and diastolic heart failure Home Medications ?Medication ?Instructions ?Recorded ?Last Taken ?Type albuterol sulfate 90 mcg/actuation 2 puff inhalation Q4H PRN Wheezing 12/09/18 08/16/21 History aerosol inhaler (Proventil HFA) levothyroxine 88 mcg tablet 88 mcg PO DAILY THYROID 08/15/21 02/17/23 History (Euthyrox) furosemide 40 mg tablet 40 mg PO BID fluid retention 09/14/21 Unknown History dapagliflozin propanediol 10 mg 10 mg PO DAILY dm 04/15/22 Unknown History tablet (Farxiga) colchicine 0.6 mg capsule 0.6 mg PO BID PRN gout flare 09/30/24 Unknown History apixaban 5 mg tablet (Eliquis) 5 mg PO BID blood thinner 11/11/24 Unknown History atorvastatin 40 mg tablet 40 mg PO QHS cholesterol 11/11/24 Unknown History fluticasone fur. 200 mcg-umeclid 1 inh inhalation DAILY sob 11/11/24 Unknown History 62.5 mcg-vilant 25 mcg inhalat.powder (Trelegy Ellipta) fluticasone propionate 50 2 spray intranasal DAILY congestion 11/11/24 Unknown History mcg/actuation nasal spray,suspension ipratropium bromide 21 mcg (0.03 1 - 2 spray intranasal Q6H PRN PRN 11/11/24 Unknown History %) nasal spray rhinitis Allergy/AdvReac Type Severity Reaction Status Date / Time codeine Allergy Severe anaphylaxis Verified 09/30/24 15:16 Family History Father Myocardial infarction Cancer lung CVA (cerebral vascular accident) Mother Colon cancer Brother Diabetes CAD (coronary artery disease) open heart surgery Surgical History Hx of right hemicolectomy S/P right hemicolectomy Hx of colonoscopy History of hysterectomy History of appendectomy History of cholecystectomy Social History (Updated 11/11/24 @ 21:[address] Rg Ponce MD) household members: other details: 22 year old grandson lives with her, but he works nights. Smoking Status: Former smoker how long ago did patient quit smokin years ago alcohol intake: never substance use type: does not use caffeine: Yes Type: tea Number of servings: 2 ROS Constitutional Constitutional: Reports weakness; Denies chills, fever(s) or weight gain ENT HEENT: Denies headache(s), nasal congestion or nasal discharge Cardiovascular Cardiovascular: Denies chest pain or palpitations Respiratory/Chest Respiratory/Chest: Denies cough, excessive phlegm production or shortness of breath with exertion Gastrointestinal Gastrointestinal: Denies abdominal pain, nausea or vomiting Genitourinary Genitourinary: Denies dysuria Musculoskeletal Musculoskeletal: Denies joint pain or joint swelling Integumentary Integumentary: Denies rash or wounds Neurologic Neurologic: Denies focal weakness, numbness or tingling Psychiatric Psychiatric: Denies anxiety, auditory hallucinations, depression, homicidal ideation or suicidal ideation Vital Signs Vital Signs Vital Signs: 11/11/24 17:02 11/11/24 18:00 Temperature 97.6 F L Temperature Source Oral Pulse Rate 58 L 94 Respiratory Rate 20 H 16 Blood Pressure 140/49 H 133/66 H Blood Pressure Mean 79 88 Blood Pressure Source Monitor Monitor Blood Pressure Position Sitting Semi-Fowlers Blood Pressure Location Right Arm Right Arm Pulse Ox 94 97 Oxygen Delivery Method Room Air Room Air Indicators for Scoring Admitted with or Primary Diagnosis of CVA/Stroke: Yes Hx of CVA/Stroke: Yes Modified [place] Score MRS Score at time of Evaluation: 3-Moderate disability NIHSS NIHSS 1a. Level of Consciousness: Alert; keenly responsive 1b. LOC Questions: Answers neither question correctly. 1c. LOC Commands: Performs one task correctly. 2. Best Gaze: Normal 3. Visual: No visual loss 4. Facial Palsy: Normal symmetrical movements 5a. Left Arm: No drift; arm holds 90 (or 45) degrees for full 10 seconds 5b. Right Arm: No drift; arm holds 90 (or 45) degrees for full 10 seconds 6a. Left Leg: No drift; leg holds 30-degree position for full 5 seconds 6b. Right Leg: No drift; leg holds 30-degree position for full 5 seconds 7. Limb Ataxia: Absent 8. Sensory: Normal; no sensory loss 9. Best Language: Severe aphasia; 10. Dysarthria: Normal 11. Extinction and Inattention: No abnormality Total: 5 Stroke Questions Stroke Team Activated: Yes a.Reviewed Inclusion/Exclusion criteria: Yes Was Patient considered for Endovascular Intervention?: Yes IV Thrombolytic Administered: No No contraindications from thrombolytic administration: No Risks, Benefits, Alternatives Discussed: Yes Physical Exam Const alert General Appearance: cooperative HEENT normocephalic Eyes PERRL and EOMs intact bilaterally Neck supple, no JVD and no carotid bruits Resp normal respiratory effort, normal air movement and clear to auscultation bilaterally Cardio regular rate and regular rhythm GI normal to inspection, nondistended, normoactive bowel sounds, non-tender and non-distended Extremity normal capillary refill General Extremity: Negative for edema Skin no rashes or lesions noted General Skin Exam: no breakdown Neuro Neuro Narrative: Global aphasia. Speech: speech abnormal Psych affect normal Appearance: appropriate Results Lab / Micro Data Labs: Laboratory Results - last 24 hr 11/11/24 17:26: POC Glucose 128 H Assessment & Plan Assessment/Plan (1) Debility: (2) Left acute arterial ischemic stroke, MCA (middle cerebral artery): (3) Global aphasia: (4) Atrial fibrillation: (5) Hypothyroidism: (6) (HFpEF) heart failure with preserved ejection fraction: (7) Gout: (8) Diabetes: PLAN: Plan 74 year old female with below past medical history hospitalized for left MCA stroke with global aphasia, no TNK, no thrombectomy, admitted to with debility, here for 3 hours daily rehabilitation, strengthening, prior to discharge home with grandson. Debility - PT/OT/ST. Pain - Tylenol 1000mg q6 prn pain (1-10). Bowel - senna/colace 2 tablets bid, Dulcolax 10mg pr x 1 prn, MOM 30mL po x1 prn. DVT prophylaxis - Eliquis. COPD - Fluticasone/Salmeterol 232-14 1 puff q12, Incruse 1 puff daily, Albuterol 2 puffs q4h prn. Atrial fibrillation - Eliquis 5mg bid. Hyperlipidemia - Atorvastatin 40mg qhs. Gout - Colchicine 0.6mg bid prn. HFpEF - Jardiance 25mg daily, Furosemide 40mg bidlx. Diabetes Mellitus II - Jardiance 25mg daily, Lispro SSI ACHS. Allergic rhinitis - Flonase 2 sprays nasal daily. Hypothyroidism - Levothyroxine 88mcg daily.
[2024-11-11 22:12] LABS: Bedside Glucose 142 mg/dL (74-106)
[2024-11-12 03:28] VITALS: BMI 34.9
[2024-11-12] MEDS: Levothyroxine 88 MCG Tablet PO (05:03)
[2024-11-12 05:10] VITALS: BMI 34.9
[2024-11-12 05:13] VITALS: BP 139/74; PULSE 80; RESP 16; TEMP 36.6; O2SAT 94
[2024-11-12 06:09] LABS: Hematocrit 46.1 % (37-47); Hemoglobin 14.5 g/dL (12.0-15.0); Mean Corp Hgb Conc 31.5 g/dL (32-36); Mean Corpuscular Hgb 28.2 pg (27.0-32.0); Mean Corpuscular Volume 89.5 fL (81-99); Mean Platelet Vol. 10.4 fl (6.2-12.0); Platelet Count 213 K/mm3 (150-450); RBC Distribution Width CV 15.1 % (11.6-14.6); RBC Distribution Width SD 49.5 fl (35.1-43.9); Red Blood Count 5.15 M/mm3 (4.2-5.4); White Blood Count 9.9 K/mm3 (4.4-11.0)
[2024-11-12 06:18] LABS: Phosphorus 2.4 mg/dL (2.7-4.5)
[2024-11-12 06:19] LABS: Magnesium 1.8 mg/dL (1.5-2.2)
[2024-11-12 06:20] LABS: Bedside Glucose 134 mg/dL (74-106)
[2024-11-12 06:25] LABS: AST(SGOT) 20 U/L (<=31); Alanine Aminotransfer ALT/SGPT 10 U/L (<=34); Albumin, Serum 3.7 g/dL (3.4-4.8); Alkaline Phosphatase 114 U/L (35-104); Anion Gap 11 (5-15); BUN 14 mg/dL (4-19); BUN/Creat Ratio 14.8 RATIO (10-20); Carbon Dioxide 26.6 mmol/L (21.0-32.0); Chloride 100 mmol/L (98-108); Creatinine, Serum 0.94 mg/dL (0.70-1.20); EST Glomerular Filtration Rate 64 (>60); Estimated Creatinine Clearance 66.12 ml/min (50-250); Globulin 3.7 g/dL (2.2-4.2); Glucose 138 mg/dL (70-99); Potassium 4.7 mmol/L (3.3-5.1); Protein, Total 7.4 g/dL (5.9-8.4); Sodium Level 137 mmol/L (133-145); Total Bilirubin 1.04 mg/dL (0.00-1.30)
[2024-11-12] MEDS: Fluticasone/Salmeterol 232-14 Inhaler 1 PUFF INHALATION ×2 (07:56→20:57)
[2024-11-12] MEDS: Ipratropium Bromide 0.06% NASAL SPRAY 1 SPRAY NASAL (07:56)
[2024-11-12] MEDS: Senna/Docusate Sodium 1 Tablet 2 TABLET PO ×2 (07:57→20:59)
[2024-11-12] MEDS: Empagliflozin 25 MG Tablet PO (07:57)
[2024-11-12] MEDS: Fluticasone 0.05% 1 SPRAY NASAL.SRY 2 SPRAY NASAL (07:57)
[2024-11-12] MEDS: Umeclidinium Bromide Inhaler 1 PUFF INHALATION (07:58)
[2024-11-12] MEDS: APIXABAN 5 MG TABLET PO ×2 (07:58→21:03)
[2024-11-12] MEDS: Na Biphos/Potassium Phosphate PACKET 1 PACKET PO (09:42)
[2024-11-12 11:30] LABS: Bedside Glucose 130 mg/dL (74-106)
--- NOTE | 2024-11-12 13:25 | CASEMGMT ---
Social Work SW phoned dtr to complete initial assessment. Introduced self and role. Verified contacts. Informed dtr of Team meetings. Educated to [facility] insurance with [employer] 11/23 and continued stay is not guaranteed with each review; LCD indicates pt no longer meets criteria for IRU; no advanced notice is given. SW to assist with DC planning. See SW assessment for details. Farida Li DISTRICT MANAGER IN [employer]
--- NOTE | 2024-11-12 15:03 | REHABEVAL_ITS ---
Admission Information Primary Diagnosis:: Left MCA stroke, global aphasia. Status Changes from Prescreening?: No changes Identified Actual Problem List:: Pain, ALteration in Cmfrt, Cognitve Impr/Memory Loss, Alteration in Sleep, Mobility Impaired, Self Care Deficit, Ineffective Communication, Know.Dfct/Disease Process, Know.Dfct of Medicaitons and Alteration-Leisure Activ. Potential Problem List:: DVT, Bleeding, Infection, UTI, Aspiration, Falls, Skin Integrity and Depression Risk of Complications DVT: LMWH, TYRELL Hose and Sequential Compression Device Bleeding: Monitor Lab Values, Nursing to Teach Precautions for anti-coagulation therapy., Wound, if applicable, to be assessed every shift. and Stroke patients assessed for lethargy or change in status. Infection: Clinical Staff to Monitor for S/S of infection: and S/S of infection include fever, redness, warmth, etc. Urinary Tract Infection: Monitor for frequency, burning, discomfort, or incontin ence. and Nursing will obtain urine sample for urinalysis and C&S when ordered. Aspiration: Clinical staff will monitor for coughing, drooling, congestion., Speech will evaluate swallowing and dsyphasia. and Nursing will monitor patient swallowing during meals. Falls: Patient will be evaluated for Fall Precautions and Patient will be placed on Fall Precautions as indicated per protocol. Skin Breakdown: Nursing will assess skin daily using assessment tool. and Nursing will place on Skin Breakdown Precautions as indicated. Pain: Clinical staff will assess patient's pain level per protocol., Medications will be given, if needed, and the pain level reassessed. and Other methods: Massage, distraction, decrease stimulus, etc. used PRN. Plan of Care Patient requires physician specializing in physical medicine and rehab oversight to provide close medical supervision of rehab issues including: Pain Management, Sleep Problems, Bowel and Bladder, Medical and co-morbidity Management, DVT prophylaxis, Rehabilitation Leadership and Coordination of treatment team Patient needs Physical Therapy: For a minimum of 1 hour and At least 5 out of 7 days Patient needs Physical Therapy to improve:: Mobility, Strengthening, Transfers, Stretching, ROM, Endurance, Stairs, Gait and Balance Patient needs Occupational Therapy: For a minimum of 1 hour Patient needs Occupational Therapy to improve ADL's incl.: Eating, Grooming, Bathing, Dressing, Toileting, Toilet transfers, Community Reintegration, Higher functioning activities, Household tasks, Adaptive Equipment, Splinting and Other activities as determined Patient requires speech therapy: For a minimum of 1 hour and At least 5 out of 7 days Patient requires speech therapy for: Swallowing, Cognition, Language Skills and Compensatory Strategies Patient requires 24/ Rehabilitation Nursing for: Pain Issues, Identifying and preventing risk factors, Monitoring and reporting current medical conditions, Assisting with ambulation, transfer, and all ADL's, Teaching patients about disease process and medications, Family teaching, Providing safe environment, Bowel and Bladder Issues, Skin integrity and Medication Management Patient needs Vice President Medical Affairs/ Case Management for: Discharge Planning, Arranging Home Equipment or Services and Family Interventions Patient needs Dietary and Nutrition Services for: Adequate Nutrition, Nutritional Supplements and Nutritional Education Goals Goals Patient will remain: free from falls and or injury at time of discharge. Patient will complete transfers from bed to chair at: - (Sup.) Patient will ambulate: with LRD (Sup.) and - (350 feet.) Patient will complete upper body dressing at: - (Setup.) Patient will complete lower body dressing at: - (Sup with AE prn.) Patient will complete toilet transfer at: - (Sup.) Patient will complete toileting at: - (Sup.) Patient will perform bathing at: - (Sup with AE.) Patient will perform Tub/Shower transfer at: - (DME prn Sup.) Patient will complete grooming at: - (Sup.) Patient will complete home management skills at: - (Sup.) Patient will achieve: - (3 steps with 1 rail SBA.) Patient will have pain level of: of 3 or less Patient's skin will: remain intact and free from infection. Patient will receive: adequate nutrition. Discharge Planning Pt Prognosis for Sig. Practical Improv. w/in Reasonable Time: Good Estimated Length of stay (days): 21 Anticipated D/C Destination: Home with Home Health Was Preadmission Assessment Accurate?: No
[2024-11-12 16:41] LABS: Bedside Glucose 119 mg/dL (74-106)
[2024-11-12 17:44] VITALS: BP 135/67; PULSE 62; RESP 16; TEMP 36.6; O2SAT 93
[2024-11-12 18:35] VITALS: O2SAT 95
[2024-11-12] MEDS: Atorvastatin Calcium 40 MG Tablet PO (20:59)
[2024-11-12 21:27] LABS: Bedside Glucose 114 mg/dL (74-106)
[2024-11-13 02:11] VITALS: BP 114/61; PULSE 86; RESP 18; TEMP 36.6; O2SAT 94
[2024-11-13] MEDS: Levothyroxine 88 MCG Tablet PO (06:40)
[2024-11-13 07:15] LABS: Bedside Glucose 128 mg/dL (74-106)
[2024-11-13 08:33] VITALS: O2SAT 90
[2024-11-13] MEDS: Umeclidinium Bromide Inhaler 1 PUFF INHALATION (08:59)
[2024-11-13] MEDS: Fluticasone/Salmeterol 232-14 Inhaler 1 PUFF INHALATION ×2 (08:59→22:06)
[2024-11-13] MEDS: Fluticasone 0.05% 1 SPRAY NASAL.SRY 2 SPRAY NASAL (09:00)
[2024-11-13] MEDS: Empagliflozin 25 MG Tablet PO (09:01)
[2024-11-13] MEDS: Na Biphos/Potassium Phosphate PACKET 1 PACKET PO (09:01)
[2024-11-13] MEDS: Senna/Docusate Sodium 1 Tablet 2 TABLET PO ×2 (09:01→22:07)
[2024-11-13] MEDS: APIXABAN 5 MG TABLET PO ×2 (09:01→22:06)
[2024-11-13 09:17] VITALS: O2SAT 96
[2024-11-13 11:39] LABS: Bedside Glucose 162 mg/dL (74-106)
[2024-11-13] MEDS: Insulin Lispro 100 UNIT/ML INSULN.PEN SC ×2 (12:41→17:28)
[2024-11-13 16:51] LABS: Bedside Glucose 161 mg/dL (74-106)
[2024-11-13 17:35] VITALS: BP 120/53; PULSE 67; RESP 16; TEMP 36.3; O2SAT 95
[2024-11-13] MEDS: Atorvastatin Calcium 40 MG Tablet PO (22:07)
[2024-11-13 22:34] LABS: Bedside Glucose 123 mg/dL (74-106)
[2024-11-14] MEDS: Levothyroxine 88 MCG Tablet PO (05:18)
[2024-11-14 05:19] VITALS: BP 122/58; PULSE 64; RESP 16; TEMP 36.5; O2SAT 96
[2024-11-14 07:02] LABS: Bedside Glucose 134 mg/dL (74-106)
[2024-11-14] MEDS: Fluticasone 0.05% 1 SPRAY NASAL.SRY 2 SPRAY NASAL (08:24)
[2024-11-14] MEDS: Ipratropium Bromide 0.06% NASAL SPRAY 1 SPRAY NASAL (08:24)
[2024-11-14] MEDS: Senna/Docusate Sodium 1 Tablet 2 TABLET PO ×2 (08:33→21:16)
[2024-11-14] MEDS: Na Biphos/Potassium Phosphate PACKET 1 PACKET PO (08:33)
[2024-11-14] MEDS: APIXABAN 5 MG TABLET PO ×2 (08:33→21:16)
[2024-11-14] MEDS: Empagliflozin 25 MG Tablet PO (08:34)
[2024-11-14] MEDS: Umeclidinium Bromide Inhaler 1 PUFF INHALATION (08:35)
[2024-11-14] MEDS: Fluticasone/Salmeterol 232-14 Inhaler 1 PUFF INHALATION ×2 (09:05→21:15)
[2024-11-14 11:43] LABS: Bedside Glucose 129 mg/dL (74-106)
[2024-11-14 17:00] LABS: Bedside Glucose 145 mg/dL (74-106)
[2024-11-14 17:02] VITALS: BP 123/39; PULSE 74; RESP 18; TEMP 36.8; O2SAT 96
[2024-11-14] MEDS: Atorvastatin Calcium 40 MG Tablet PO (21:16)
[2024-11-14] MEDS: Insulin Lispro 100 UNIT/ML INSULN.PEN SC (21:26)
[2024-11-14 22:16] LABS: Bedside Glucose 156 mg/dL (74-106)
[2024-11-15 05:45] VITALS: BP 115/54; PULSE 58; RESP 16; TEMP 36.8; O2SAT 92
[2024-11-15 05:47] VITALS: BMI 34.5
[2024-11-15] MEDS: Levothyroxine 88 MCG Tablet PO (05:48)
[2024-11-15 06:03] LABS: Phosphorus 2.9 mg/dL (2.7-4.5)
[2024-11-15 06:57] LABS: Bedside Glucose 119 mg/dL (74-106)
[2024-11-15] MEDS: Empagliflozin 25 MG Tablet PO (07:47)
[2024-11-15] MEDS: APIXABAN 5 MG TABLET PO ×2 (07:47→21:12)
[2024-11-15] MEDS: Fluticasone 0.05% 1 SPRAY NASAL.SRY 2 SPRAY NASAL (07:47)
[2024-11-15] MEDS: Fluticasone/Salmeterol 232-14 Inhaler 1 PUFF INHALATION ×2 (07:47→21:12)
[2024-11-15] MEDS: Umeclidinium Bromide Inhaler 1 PUFF INHALATION (07:47)
[2024-11-15] MEDS: Na Biphos/Potassium Phosphate PACKET 1 PACKET PO (07:48)
[2024-11-15] MEDS: Senna/Docusate Sodium 1 Tablet 2 TABLET PO (07:48)
[2024-11-15 09:00] VITALS: BMI 34.2
[2024-11-15 11:43] LABS: Bedside Glucose 128 mg/dL (74-106)
--- NOTE | 2024-11-15 12:54 | CASEMGMT ---
Addendum entered by Farida Li 11/15/24 13:37: SW provided information for stroke support group at [facility]. Original Note: Social Work IDT met with patient and two dtrs for Team meeting. Discussed patient's progress in PT/OT/ST/SN. Educated to [facility] insurance with [employer] 11/23 and continued stay is not guaranteed with each review, and no advanced noticed is given. Pt has severe expressive and receptive aphasia and gets frustrated with tasks. Pt has visual neglect. Pt is improving with physical tasks and is higher functioning. Discussed decreasing PT/OT minutes, increasing ST minutes to focus on deficits. Pt is improving with bladder continence. SW discussed DC plans. Family confirmed between grandchildren and dtrs, pt will have 24/7 care. IDT confirmed recommendations for 24/7 care for communication and safety. Family agreed. SW offered to coordinate FWW at DC and OP therapy for more comprehensive therapy sessions, if family can drive to those sessions. Family agreed to both. SW to finalize at [place]. Family confirmed they have installed elevated toilets and a ramp, then are planning to install a walk-in shower. discussed depression. Dtr's confirm they feel pt is depressed since , though, report over the last year, the pt's mood has improved. Pt has become more active and kind. Dr to consider starting antidepressant to assist with sleep, appetite also. discussed completing an overnight trending pulse ox d/t possible sleep apnea and family reports of pt's poor sleep habits. SW to follow for O2 needs at DC. Answered family's questions. Will ReTeam next week. JASPREET will continue to follow. Farida Li CROWN POUNCER NURSING HOME ASSISTANT
[2024-11-15] MEDS: Acetaminophen 325 MG Tablet 650 MG PO ×2 (14:11→21:16)
--- NOTE | 2024-11-15 14:21 | PCM.PROGNOTE ---
Subjective Subjective Elizabeth was seen on team rounds today. Her daughters were present in the room. All questions were answered to their satisfaction. Afebrile VSS - Maintaining appropriate oxygen saturation on RA Oral intake - FOOD good FLUIDS variable and ranges from fair to good. Having regular bowel movements. Last bowel movement was today. The blood sugar record was reviewed. Not requiring any insulin and no hypoglycemia. Discussed with nursing - Has been able to call for the nurse using her call light recently. She is incontinent of urine at times and voids at others when on the toilet. Not incontinent of stool. Reviewed the THERAPY notes Medication list reviewed. Has been c/o DURHAM to her dtr's but, not able to tell nursing so no medications being given. The DURHAM is Left temporal. Denies lightheadedness, palpitations, chest pain, shortness of breath, cough, sore throat, nausea/vomiting/abdominal pain, dysuria and calf tenderness. All progress notes, imaging and labs were personally reviewed. Phosphorus today is normal at 2.9 following supplementation. Microalbumin/creatinine ratio on 04/19/2024 was elevated at 182. Hemoglobin A1c on 04/19/2024 was 6.6. Presented to the emergency department at [facility] on 11/08/2024 as a stroke alert. Presenting complaints included facial droop on the right, slurred speech and weakness of the right arm. Patient was unable to provide history due to dysarthria/aphasia. Initial NIH was 8 in the emergency department. Noncontrast CT brain showed no intracerebral bleeding. CTA of the head/neck showed focal high-grade stenosis/occlusion of the M1 segment of the left MCA with distal reconstitution. There was moderate calcific plaque of the bilateral carotid siphons and of the left subclavian artery distal to its origin resulting in mild stenosis. INR was subtherapeutic at 1.6. EKG showed atrial fibrillation with a heart rate of 58 bpm. Teleneurology was consulted and the patient was transferred to [facility] for possible thrombectomy. Patient was not a candidate for TNK due to being on warfarin and last known well was unknown. NIHSS score was 6 at presentation to [facility]. At [facility] she was deemed not to be a candidate for thrombectomy due to no clear large vessel occlusion. She was loaded with Plavix 300 mg and also with aspirin 325 mg. Aspirin 81 mg and Plavix 75 mg were ordered daily thereafter. The cause of the stroke was deemed to be atrial fibrillation with a subtherapeutic INR. While at [facility] she was transitioned from warfarin to Eliquis. She was transferred to the acute inpatient unit at [facility] on 11/11/2024 for 3 hours of therapy daily to restore function/independence at or near her level prior to the most recent stroke. Per her dtrs patient has had multiple TIA's/CVA's in the past. They tell me this is due to a hx of Rheumatic fever or scarlet fever in the past? Past medical history was reviewed. She has a history of colon cancer which was diagnosed in August 2021. She underwent a right hemicolectomy and was seen in consultation by [facility], Dr. Robbins. The tumor invaded the pericolic fat and 22 lymph nodes were negative. Dr. Robbins elected to observe/surveilled with follow-up CEA's and CT scans. CEA in October 2022 started to increase. PET/CT showed activity in the left iliac bone and mesentery suggestive of metastatic disease. MRI of the brain showed calcification/gliosis in the right cerebellum. She had a follow-up colonoscopy with Dr. Paige on 02/17/2023. There were no suspicious lesions identified and no specimens were collected. The anastomosis was widely patent. Follow-up colonoscopy was recommended in 1 year. After review of the EMR I see no follow-up colonoscopy was done at [facility] and her last visit with Dr. Robbins was 01/02/2023. Echocardiogram in 2019 showed normal left ventricular size with an ejection fraction of 55% and no wall motion abnormalities. The left atrium was mildly enlarged. There was +1 MR and trivial TR. The right ventricular systolic pressure was estimated at 31. There was lipomatous hypertrophy of the atrial septum. The right ventricular systolic pressure was estimated at 31. Additional past medical history includes diabetes mellitus type 2, hypothyroidism, GERD, obesity, depression, past history of tobacco dependence ( quit smoking in 2020), atrial fibrillation, COPD, peripheral vascular disease, PFO, hypertension, gout, dyslipidemia and combined systolic and diastolic heart failure (normal EF in 2019) Objective Data Objective Data Vital Signs: Vital Signs Temp Pulse Resp BP Pulse Ox O2 Del Method 98.2 F 58 L 16 115/54 L 92 Room Air 11/15/24 05:45 11/15/24 05:45 11/15/24 05:45 11/15/24 05:45 11/15/24 05:45 11/15/24 10:00 Oxygen Delivery Method Room Air Weight: 218 lb 12.8 oz Body Mass Index (BMI) 34.2 Intake & Output: Intake and Output for Last 24 Hours 11/13/24 11/14/24 11/15/24 23:59 23:59 23:59 Intake Total 1095 / 1095 940 / 940 970 / 970 Output Total 500 / 500 700 / 700 550 / 550 Balance 595 / 595 240 / 240 420 / 420 Lab / Micro Data 11/12/24 05:29 11/12/24 05:29 Labs: Laboratory Results - last 24 hr 11/14/24 16:42: POC Glucose 145 H 11/14/24 21:18: POC Glucose 156 H 11/15/24 05:29: Phosphorus 2.9 11/15/24 06:32: POC Glucose 119 H 11/15/24 11:22: POC Glucose 128 H Physical Exam Const alert Constitutional Narrative: Oriented to person. NAD General Appearance: cooperative HEENT head/scalp atraumatic Neck supple and no carotid bruits General: trachea midline Resp normal respiratory effort and clear to auscultation bilaterally Effort and Inspection: Negative for tachypneic or respiratory distress Cardio regular rate and regular rhythm Cardio Narrative: Rare ectopic beat. No gallop. GI normal to inspection, nondistended, normoactive bowel sounds, soft to palpation and non-tender GI Narrative: No guarding with palpation Extremity no calf tenderness Extremity Narrative: mild edema of the legs.....better with TYRELL hose. Skin General Skin Exam: no breakdown Rashes: no rashes Neuro Neuro Narrative: Mild R facial droop. Tongue protrudes on the midline. Pupils are equal round and reactive to light and accommodation but, has visual field cuts of the R eye. Difficult to get her to understand what I want her to do when I am checking visual field. R eye deviates laterally but, when I am checking gaze she has normal tracking of both eyes. R arm and leg are weak when compared to the left. Mild ataxia with the R arm and the R leg. Able to plantar flex and dorsiflex both feet but weaker on the R. Dullness to pinprick in the RLE. Receptive and expressive aphasia but, she is speaking much more.....often non-sensical with word substitutions. Psych cooperative Psych Narrative: Seems upbeat. Family tells me that after her 4 years ago she was depressed. Did not want to leave the house and was irritable. Unmotivated. Neglected to follow up with Dr. Robbins and Dr. Paige since summer. Not taking care of herself. About a year ago she started being more social and leaving the house. Pleasant and not angry or irritable. Does not seem depressed at the present time. Sleeping well and has a good appetite. Very cooperative with therapy. Smiling a little and talkative. Not withdrawn. Not on and antidepressant. Assessment & Plan Assessment/Plan (1) Debility: (2) Left acute arterial ischemic stroke, MCA (middle cerebral artery): (3) Global aphasia: (4) Right sided weakness: (5) Visual field cut: (6) Atrial fibrillation: (7) Subtherapeutic international normalized ratio (INR): (8) Diabetes: (9) (HFpEF) heart failure with preserved ejection fraction: (10) Hypothyroidism: (11) Obesity (BMI 30.0-34.9): (12) Essential hypertension: (13) Chronic anticoagulation: (14) Colon cancer: QUALIFIERS: Colon location: ascending Qualified Code(s): C18.2 - Malignant neoplasm of ascending colon (15) S/P right hemicolectomy: (16) Hypophosphatemia: (17) Sleep-disordered breathing: (18) Hypoxia: PLAN: Plan 1. Continue therapy 2. Change the Accu-Cheks to twice daily. Discontinue sliding scale insulin and continue Jardiance 25 mg daily. 3. discussed follow up with oncology and Dr. Paige post DC. Will schedule appts for her when we have a DC date. 4. Check a CEA, BMP, phosphorus and HH on Friday. 5. Overnight trending pulse ox tonight Charges/Coding Visit Charges Inpatient E&M: 54501 Subs Hosp L2
--- NOTE | 2024-11-15 15:55 | CHAPLAIN ---
Type of Pastoral Visit _x__ Initial Visit ___ Follow-up Visit ___ On-call Visit ___ General Patient Visit ___ Spiritual Assessment ___ Family Conference ___ Bereavement ___ Rapid Response ___ Code Blue ___ Other (describe below) Pastoral Care Referral From _x__ Patient ___ Family ___ Nurse ___ Physician ___ Youth Probation Officer ___ Rolling Attendant ___ Other (describe below) Sacrament/Intervention _x__ Active listening ___ Anointing ___ Sabianism ___ Bereavement ___ Communion ___ Jana exploration ___ _x__ Life review _x__ Prayer ___ Reconciliation ___ Sacrament of Sick _x__ Supportive presence ___ Wedding ___ Other (describe below) Pastoral Comments patient is pleasant and answers each question given; pt has some limitations on getting all of her words out and understood; however pt is adequate in communicating so that understand happens between us; pt speaks of having a larger family; pt has had multiple strokes and understands what is happening for her; pt welcomes prayers and presence
[2024-11-15 16:46] LABS: Bedside Glucose 102 mg/dL (74-106)
[2024-11-15 17:42] VITALS: BP 147/72; PULSE 57; RESP 18; TEMP 36.4; O2SAT 97
[2024-11-15] MEDS: Atorvastatin Calcium 40 MG Tablet PO (21:12)
[2024-11-15 21:29] VITALS: PULSE 69; O2SAT 95
[2024-11-15 22:00] VITALS: RESP 16; O2SAT 96
[2024-11-15 22:37] LABS: Bedside Glucose 113 mg/dL (74-106)
[2024-11-16 06:00] VITALS: BP 125/56; PULSE 48; RESP 16; TEMP 36.3; O2SAT 95
[2024-11-16] MEDS: Levothyroxine 88 MCG Tablet PO (06:41)
[2024-11-16] MEDS: Acetaminophen 325 MG Tablet 650 MG PO ×3 (06:42→21:59)
[2024-11-16 07:00] LABS: Bedside Glucose 120 mg/dL (74-106)
[2024-11-16] MEDS: Umeclidinium Bromide Inhaler 1 PUFF INHALATION (07:59)
[2024-11-16] MEDS: Fluticasone/Salmeterol 232-14 Inhaler 1 PUFF INHALATION ×2 (07:59→21:59)
[2024-11-16] MEDS: Fluticasone 0.05% 1 SPRAY NASAL.SRY 2 SPRAY NASAL (08:00)
[2024-11-16] MEDS: Na Biphos/Potassium Phosphate PACKET 1 PACKET PO (08:00)
[2024-11-16] MEDS: Empagliflozin 25 MG Tablet PO (08:00)
[2024-11-16] MEDS: APIXABAN 5 MG TABLET PO ×2 (08:01→21:59)
[2024-11-16 11:56] LABS: Bedside Glucose 115 mg/dL (74-106)
[2024-11-16 17:49] LABS: Bedside Glucose 111 mg/dL (74-106)
[2024-11-16 18:00] VITALS: BP 116/48; PULSE 55; RESP 16; TEMP 36.9; O2SAT 95
[2024-11-16] MEDS: Senna/Docusate Sodium 1 Tablet 2 TABLET PO (21:59)
[2024-11-16] MEDS: Atorvastatin Calcium 40 MG Tablet PO (21:59)
[2024-11-16 22:23] LABS: Bedside Glucose 108 mg/dL (74-106)
[2024-11-17 05:35] VITALS: BMI 33.8
[2024-11-17] MEDS: Acetaminophen 325 MG Tablet 650 MG PO ×3 (05:47→21:43)
[2024-11-17] MEDS: Levothyroxine 88 MCG Tablet PO (05:47)
[2024-11-17 06:00] VITALS: BP 130/64; PULSE 72; RESP 16; TEMP 36.4; O2SAT 94
[2024-11-17 06:50] LABS: Bedside Glucose 112 mg/dL (74-106)
[2024-11-17] MEDS: Umeclidinium Bromide Inhaler 1 PUFF INHALATION (09:55)
[2024-11-17] MEDS: Fluticasone 0.05% 1 SPRAY NASAL.SRY 2 SPRAY NASAL (09:55)
[2024-11-17] MEDS: Fluticasone/Salmeterol 232-14 Inhaler 1 PUFF INHALATION ×2 (09:56→21:42)
[2024-11-17] MEDS: Senna/Docusate Sodium 1 Tablet 2 TABLET PO ×2 (09:56→21:42)
[2024-11-17] MEDS: Empagliflozin 25 MG Tablet PO (09:56)
[2024-11-17] MEDS: APIXABAN 5 MG TABLET PO ×2 (09:56→21:43)
[2024-11-17] MEDS: Na Biphos/Potassium Phosphate PACKET 1 PACKET PO (09:56)
[2024-11-17 11:33] LABS: Bedside Glucose 131 mg/dL (74-106)
--- NOTE | 2024-11-17 14:08 | PCM.PROGNOTE ---
Subjective Subjective Afebrile Heart rate is ranging from 48-72 over the past 48 hours. Denies lightheadedness. Blood pressure is within goal. The blood sugar record was reviewed and the blood sugars are under excellent control with no hypoglycemia. Overnight trending pulse ox revealed hypoxia with O2 sat 88 during last approximately 18% of the time she was monitored. Denies cephalgia since Tylenol has been scheduled every 8 hours. Denies lightheadedness, chest pain, shortness of breath, cough. Good appetite and sleeping well at night. Very cooperative with therapy. Talks a lot but is nonsensical at times. She has both receptive and expressive aphasia. Objective Data Objective Data Vital Signs: Vital Signs Temp Pulse Resp BP Pulse Ox O2 Del Method O2 Flow Rate 97.6 F L 72 16 130/64 H 94 Room Air 0 11/17/24 06:00 11/17/24 06:00 11/17/24 06:00 11/17/24 06:00 11/17/24 06:00 11/17/24 10:07 11/15/24 21:29 FiO2 21 11/15/24 21:29 Oxygen Flow Rate (L/min) 0 Oxygen Delivery Method Room Air Weight: 216 lb 4.375 oz Body Mass Index (BMI) 33.8 Intake & Output: Intake and Output for Last 24 Hours 11/15/24 11/16/24 11/17/24 23:59 23:59 23:59 Intake Total 3310 / 3310 2140 / 2140 1440 / 1440 Output Total 850 / 850 2800 / 2800 2600 / 2600 Balance 2460 / 2460 -660 / -660 -1160 / -1160 Lab / Micro Data 11/12/24 05:29 11/12/24 05:29 Labs: Laboratory Results - last 24 hr 11/16/24 16:14: POC Glucose 111 H 11/16/24 22:01: POC Glucose 108 H 11/17/24 06:32: POC Glucose 112 H 11/17/24 11:12: POC Glucose 131 H Physical Exam Const alert and no apparent distress General Appearance: cooperative Resp clear to auscultation bilaterally Cardio regular rate and regular rhythm Cardio Narrative: No ectopy GI normal to inspection, nondistended, normoactive bowel sounds, soft to palpation and non-tender Extremity no calf tenderness Extremity Narrative: Peripheral edema is well-controlled with TYRELL hose. Assessment & Plan Assessment/Plan (1) Debility: (2) Left acute arterial ischemic stroke, MCA (middle cerebral artery): (3) Global aphasia: (4) Right sided weakness: (5) Visual field cut: (6) Atrial fibrillation: (7) Subtherapeutic international normalized ratio (INR): (8) Diabetes: (9) (HFpEF) heart failure with preserved ejection fraction: (10) Hypothyroidism: (11) Obesity (BMI 30.0-34.9): (12) Essential hypertension: (13) Chronic anticoagulation: (14) Colon cancer: QUALIFIERS: Colon location: ascending Qualified Code(s): C18.2 - Malignant neoplasm of ascending colon (15) S/P right hemicolectomy: (16) Hypophosphatemia: (17) Sleep-disordered breathing: (18) Hypoxia: (19) Mitral stenosis: (20) Pulmonary hypertension: PLAN: Plan 1. Continue therapy 2. Change the Accu-Cheks to twice daily. Discontinue sliding scale insulin and continue Jardiance 25 mg daily. 3. discussed follow up with oncology and Dr. Paige post DC. Will schedule appts for her when we have a DC date. 4. Check a CEA, BMP, phosphorus and HH on Friday. 5. Overnight sleep study and discharge. Will order 2 L of nasal O2 anytime she is sleeping. 1. Do you snore loudly? Y 2. Do you often feel tired, fatigued or sleepy during the day? Y 3. Has anyone ever observed you stop breathing during sleep? N 4. Do you have (or are you being treated for) HTN? Y BMI 33.9 AGE 74 Neck circumference will measure Gender female Total Total is at least 4 putting her at risk for MURIEL. She has RLS. She also has AF and pulmonary HTN which has increased since 2019. HX is difficult to obtain from her due to severe aphasia. I revewed the results of the ECHO done at [facility]. Left ventricular size is normal and the ejection fraction is 62%. No wall motion abnormalities. The left atrium is moderately enlarged (it was mildly enlarged in 2019 on ECHO done at [facility]). The right ventricular systolic pressure was estimated at 45 mmHg, up from 31 mmHg in 2019. The right atrium was normal size. The mitral valve is moderately calcified and patient has a possible history of rheumatic fever in the past. There is trace to mild mitral regurgitation and moderate mitral stenosis. Stenosis was not mentioned on echocardiogram done in 2019. She has mild TR. Charges/Coding Visit Charges Inpatient E&M: 76739 Subs Hosp L1
--- NOTE | 2024-11-17 14:48 | NURSING ---
Neck Circumference measured per order and was 43cm updated Dr. Soliman.
[2024-11-17 16:36] LABS: Bedside Glucose 96 mg/dL (74-106)
[2024-11-17 18:16] VITALS: BP 133/48; PULSE 54; RESP 16; TEMP 36.6; O2SAT 95
[2024-11-17] MEDS: Atorvastatin Calcium 40 MG Tablet PO (21:43)
[2024-11-17 22:00] VITALS: PULSE 54; RESP 16
[2024-11-17 22:11] LABS: Bedside Glucose 117 mg/dL (74-106)
[2024-11-18 06:00] VITALS: BP 121/52; PULSE 48; RESP 16; TEMP 36.7; O2SAT 95
[2024-11-18] MEDS: Acetaminophen 325 MG Tablet 650 MG PO ×3 (07:00→22:38)
[2024-11-18] MEDS: Levothyroxine 88 MCG Tablet PO (07:00)
[2024-11-18] MEDS: Fluticasone 0.05% 1 SPRAY NASAL.SRY 2 SPRAY NASAL (08:16)
[2024-11-18] MEDS: Na Biphos/Potassium Phosphate PACKET 1 PACKET PO (08:17)
[2024-11-18] MEDS: Fluticasone/Salmeterol 232-14 Inhaler 1 PUFF INHALATION ×2 (08:17→22:36)
[2024-11-18] MEDS: APIXABAN 5 MG TABLET PO ×2 (08:17→22:36)
[2024-11-18] MEDS: Empagliflozin 25 MG Tablet PO (08:17)
[2024-11-18] MEDS: Senna/Docusate Sodium 1 Tablet 2 TABLET PO ×2 (08:17→22:36)
[2024-11-18] MEDS: Umeclidinium Bromide Inhaler 1 PUFF INHALATION (08:17)
[2024-11-18 10:32] LABS: Bedside Glucose 150 mg/dL (74-106)
--- NOTE | 2024-11-18 16:16 | EKG12_ITS ---
Test Reason : Blood Pressure : */* mmHG Vent. Rate : 61 BPM Atrial Rate : * BPM P-R Int : * ms QRS Dur : 90 ms QT Int : 426 ms P-R-T Axes : * 111 41 degrees QTcB Int : 428 ms Atrial fibrillation with premature ventricular or aberrantly conducted complexes Low voltage QRS Left posterior fascicular block Cannot rule out Anterior infarct (cited on or before 08-Nov-2024) Abnormal ECG Confirmed by Bakari Miller ([id number]), editor & co founder RENNY VALERIO ([id number]) on 11/22/2024 8:45:50 AM Referred By: Rg Ponce Confirmed By: Bakari Miller
[2024-11-18 18:00] VITALS: BP 126/46; PULSE 48; RESP 16; TEMP 36.3; O2SAT 97
[2024-11-18 22:00] VITALS: PULSE 48; RESP 16; O2SAT 97
[2024-11-18] MEDS: Atorvastatin Calcium 40 MG Tablet PO (22:36)
[2024-11-18 23:07] LABS: Bedside Glucose 139 mg/dL (74-106)
[2024-11-19] MEDS: Acetaminophen 325 MG Tablet 650 MG PO ×3 (04:53→22:03)
[2024-11-19] MEDS: Levothyroxine 88 MCG Tablet PO (04:53)
[2024-11-19 05:55] LABS: Hematocrit 43.9 % (37-47); Hemoglobin 14.2 g/dL (12.0-15.0)
[2024-11-19 06:00] VITALS: BP 125/68; PULSE 68; RESP 16; TEMP 36.4; O2SAT 97
[2024-11-19 07:12] LABS: Phosphorus 3.7 mg/dL (2.7-4.5)
[2024-11-19 07:15] LABS: Anion Gap 12 (5-15); BUN 20 mg/dL (4-19); BUN/Creat Ratio 22.8 RATIO (10-20); Calcium,Total 9.5 mg/dL (7.6-11.0); Carbon Dioxide 21.3 mmol/L (21.0-32.0); Chloride 100 mmol/L (98-108); Creatinine, Serum 0.89 mg/dL (0.70-1.20); EST Glomerular Filtration Rate 69 (>60); Estimated Creatinine Clearance 68.73 ml/min (50-250); Glucose 128 mg/dL (70-99); Potassium 4.6 mmol/L (3.3-5.1); Sodium Level 133 mmol/L (133-145)
[2024-11-19] MEDS: Umeclidinium Bromide Inhaler 1 PUFF INHALATION (08:04)
[2024-11-19] MEDS: Fluticasone/Salmeterol 232-14 Inhaler 1 PUFF INHALATION ×2 (08:04→22:02)
[2024-11-19] MEDS: Fluticasone 0.05% 1 SPRAY NASAL.SRY 2 SPRAY NASAL (08:05)
[2024-11-19] MEDS: Senna/Docusate Sodium 1 Tablet 2 TABLET PO ×2 (08:06→22:02)
[2024-11-19] MEDS: Empagliflozin 25 MG Tablet PO (08:06)
[2024-11-19] MEDS: Na Biphos/Potassium Phosphate PACKET 1 PACKET PO (08:06)
[2024-11-19] MEDS: APIXABAN 5 MG TABLET PO ×2 (08:06→22:02)
[2024-11-19 08:45] VITALS: BMI 34.2
[2024-11-19 09:20] VITALS: PULSE 65; RESP 16
--- NOTE | 2024-11-19 15:17 | PN_ITS ---
Subjective Subjective Afebrile VSS -heart rate drops into the high 40s at rest but increases into the 60s with exertion. She denies lightheadedness. Blood pressure is well-controlled. She is not on anything to block the AV node. The EKG showed atrial fibrillation with a heart rate of 61 bpm. There is a rare premature ventricular contraction. Poor R wave progression in the anterior precordial leads. Mildly decreased voltage. Maintaining appropriate oxygen saturation on RA Oral intake - FOOD good FLUIDS good The blood sugar record was reviewed. Blood sugars remain well-controlled with no hypoglycemia. Accu-Cheks were decreased to twice daily yesterday. Discussed with nursing - no problems that need addressed Reviewed the THERAPY notes Medication list reviewed. All lab from today was personally reviewed. Hemoglobin is stable at 14.2. Sodium is 133, down from 137 on 11/12/2024. Potassium is stable at 4.6. The BUN is 20 with a creatinine of 0.89 which is stable. GFR is 69. Calcium and phosphorus are both within normal limits. CEA is pending. TSH is 30.2 she is currently taking 88 mcg of levothyroxine daily but I am not sure she was compliant with this at home. Family will need to supervise meds post DC. She probably has not been taking her meds appropriately. INR was only 1.6 at the time of the stroke and she is on Warfarin. Denies cephalgia, lightheadedness, chest pain, shortness of breath, palpitations, abdominal pain, nausea/vomiting, dysuria and calf tenderness. Objective Data Objective Data Vital Signs: Vital Signs Temp Pulse Resp BP Pulse Ox O2 Del Method O2 Flow Rate 97.5 F L 65 16 125/68 H 97 Nasal Cannula 2 11/19/24 06:00 11/19/24 09:20 11/19/24 09:20 11/19/24 06:00 11/19/24 06:00 11/19/24 09:20 11/19/24 09:20 FiO2 21 11/15/24 21:29 Oxygen Flow Rate (L/min) 2 Oxygen Delivery Method Nasal Cannula Weight: 218 lb 8 oz Body Mass Index (BMI) 34.2 Intake & Output: Intake and Output for Last 24 Hours 11/17/24 11/18/24 11/19/24 23:59 23:59 23:59 Intake Total 2880 / 2880 3060 / 3060 1150 / 1150 Output Total 4150 / 4950 2450 / 2450 1800 / 1800 Balance -1270 / -2070 610 / 610 -650 / -650 Lab / Micro Data 11/19/24 05:41 11/19/24 05:41 Labs: Laboratory Results - last 24 hr 11/18/24 22:42: POC Glucose 139 H 11/19/24 05:41: Hgb 14.2, Hct 43.9, Sodium 133, Potassium 4.6, Chloride 100, Carbon Dioxide 21.3, Anion Gap 12, BUN 20 H, Creatinine 0.89, Estim Creat Clear Calc 68.73, Est GFR (MDRD) Non-Af 69, BUN/Creatinine Ratio 22.8 H, Glucose 128 H , Calcium 9.5, Phosphorus 3.7, TSH 30.200 H Physical Exam Const alert Constitutional Narrative: pleasant, talkative, always smiling. General Appearance: cooperative Resp clear to auscultation bilaterally Cardio Cardio Narrative: rhythm feels regular on palpation of the radial pulse but, EKG with AF. The HR ranges from 48-63 on nothing to block the AV node. she is on Apixaban. GI normal to inspection, nondistended, normoactive bowel sounds, soft to palpation and non-tender Extremity no calf tenderness General Extremity: Negative for edema Assessment & Plan Assessment/Plan (1) Debility: (2) Left acute arterial ischemic stroke, MCA (middle cerebral artery): (3) Global aphasia: (4) Right sided weakness: (5) Visual field cut: (6) Atrial fibrillation: (7) Subtherapeutic international normalized ratio (INR): (8) Diabetes: (9) (HFpEF) heart failure with preserved ejection fraction: (10) Hypothyroidism: (11) Obesity (BMI 30.0-34.9): (12) Essential hypertension: (13) Chronic anticoagulation: (14) Colon cancer: QUALIFIERS: Colon location: ascending Qualified Code(s): C18.2 - Malignant neoplasm of ascending colon (15) Hypophosphatemia: (16) Sleep-disordered breathing: (17) Hypoxia: (18) Mitral stenosis: (19) Pulmonary hypertension: (20) Noncompliance with medication regimen: (21) Bradycardia: PLAN: Most likely secondary to noncompliance with levothyroxine with TSH of 30. T4 ordered. PLAN: Plan 1. Continue therapy 2. Check a T4. Apparently had not been taking levothyroxine as directed at home. TSH is 30. I am concerned about the heart rate in the 40s but she is asymptomatic and it does increase with exertion into the 60s. She denies lightheadedness. Will discuss with endocrinology. 3. Discontinue as needed Lasix 4. Blood pressure is at goal. 5. Continue apixaban. 6. Will need to discuss with family that they need to manage her medications. Charges/Coding Visit Charges Inpatient E&M: 58662 Subs Hosp L1
[2024-11-19 16:36] LABS: Bedside Glucose 139 mg/dL (74-106)
[2024-11-19 17:32] VITALS: BP 129/57; PULSE 52; RESP 16; TEMP 36.3; O2SAT 95
[2024-11-19] MEDS: Atorvastatin Calcium 40 MG Tablet PO (22:02)
[2024-11-20] MEDS: Levothyroxine 88 MCG Tablet PO (05:41)
[2024-11-20] MEDS: Acetaminophen 325 MG Tablet 650 MG PO ×3 (05:41→21:28)
[2024-11-20 06:00] VITALS: BP 147/74; PULSE 77; RESP 18; TEMP 36.3; O2SAT 92
[2024-11-20 07:22] LABS: Bedside Glucose 139 mg/dL (74-106)
[2024-11-20] MEDS: Umeclidinium Bromide Inhaler 1 PUFF INHALATION (07:53)
[2024-11-20] MEDS: Fluticasone/Salmeterol 232-14 Inhaler 1 PUFF INHALATION ×2 (07:54→21:28)
[2024-11-20] MEDS: Fluticasone 0.05% 1 SPRAY NASAL.SRY 2 SPRAY NASAL (07:54)
[2024-11-20] MEDS: APIXABAN 5 MG TABLET PO ×2 (07:55→21:28)
[2024-11-20] MEDS: Senna/Docusate Sodium 1 Tablet 2 TABLET PO ×2 (07:55→21:28)
[2024-11-20] MEDS: Empagliflozin 25 MG Tablet PO (07:56)
[2024-11-20 08:08] LABS: Carcinoembryonic Antigen 4.6 ng/mL (0.0-4.7)
[2024-11-20 17:41] LABS: Bedside Glucose 118 mg/dL (74-106)
[2024-11-20 18:00] VITALS: BP 128/66; PULSE 51; RESP 15; TEMP 36.6; O2SAT 95
[2024-11-20] MEDS: Atorvastatin Calcium 40 MG Tablet PO (21:28)
[2024-11-21] MEDS: Petrolatum 33% Tube 1 APPLIC TOPICAL (05:08)
[2024-11-21] MEDS: Levothyroxine 88 MCG Tablet PO (05:08)
[2024-11-21] MEDS: Acetaminophen 325 MG Tablet 650 MG PO ×3 (05:08→22:00)
[2024-11-21 05:12] VITALS: BP 125/50; PULSE 55; RESP 16; TEMP 36.3; O2SAT 93
[2024-11-21 07:01] LABS: Bedside Glucose 115 mg/dL (74-106)
[2024-11-21] MEDS: Umeclidinium Bromide Inhaler 1 PUFF INHALATION (08:58)
[2024-11-21] MEDS: Senna/Docusate Sodium 1 Tablet 2 TABLET PO ×2 (08:58→22:01)
[2024-11-21] MEDS: APIXABAN 5 MG TABLET PO ×2 (08:58→22:00)
[2024-11-21] MEDS: Fluticasone 0.05% 1 SPRAY NASAL.SRY 2 SPRAY NASAL (08:58)
[2024-11-21] MEDS: Empagliflozin 25 MG Tablet PO (08:58)
[2024-11-21] MEDS: Fluticasone/Salmeterol 232-14 Inhaler 1 PUFF INHALATION ×2 (08:58→22:01)
[2024-11-21 16:29] LABS: Bedside Glucose 114 mg/dL (74-106)
[2024-11-21 18:00] VITALS: BP 124/49; PULSE 61; RESP 16; TEMP 36.8; O2SAT 98
[2024-11-21] MEDS: Atorvastatin Calcium 40 MG Tablet PO (22:00)
[2024-11-22 05:13] VITALS: BP 127/56; PULSE 81; RESP 16; TEMP 36.3; O2SAT 94
[2024-11-22] MEDS: Acetaminophen 325 MG Tablet 650 MG PO ×3 (05:17→21:56)
[2024-11-22] MEDS: Levothyroxine 88 MCG Tablet PO (05:17)
[2024-11-22 06:00] VITALS: BMI 33.5
[2024-11-22 07:07] LABS: Bedside Glucose 127 mg/dL (74-106)
[2024-11-22] MEDS: Fluticasone/Salmeterol 232-14 Inhaler 1 PUFF INHALATION ×2 (07:34→21:56)
[2024-11-22] MEDS: Umeclidinium Bromide Inhaler 1 PUFF INHALATION (07:34)
[2024-11-22] MEDS: Senna/Docusate Sodium 1 Tablet 2 TABLET PO ×2 (07:35→21:56)
[2024-11-22] MEDS: Fluticasone 0.05% 1 SPRAY NASAL.SRY 2 SPRAY NASAL (07:35)
[2024-11-22] MEDS: Empagliflozin 25 MG Tablet PO (07:35)
[2024-11-22] MEDS: APIXABAN 5 MG TABLET PO ×2 (07:35→21:57)
--- NOTE | 2024-11-22 09:54 | PCM.PROGNOTE ---
Subjective Subjective Elizabeth was seen on team rounds. Her daughters were present in the room. All questions were answered to their satisfaction. Afebrile VSS -blood pressure is at goal and is well-controlled. The heart rate is coming up now that she is on levothyroxine. Over the past 24 hours the heart rate has ranged from 55-81. Maintaining appropriate oxygen saturation on RA Oral intake - FOOD good FLUIDS good Weight is Down 10 pounds since admission to rehab The blood sugar record was reviewed. Blood sugars are under excellent control. Discussed with nursing - no problems that need addressed Reviewed the THERAPY notes Medication list reviewed. She really has no complaints today. She denies lightheadedness and also denies cephalgia. She denies pain. Tells me she is feeling fine. She is very alert and cooperative and smiling. Does not appear to be in any distress. Objective Data Objective Data Vital Signs: Vital Signs Temp Pulse Resp BP Pulse Ox O2 Del Method O2 Flow Rate 97.3 F L 81 16 127/56 H 94 Room Air 2 11/22/24 05:13 11/22/24 05:13 11/22/24 05:13 11/22/24 05:13 11/22/24 05:13 11/22/24 05:13 11/19/24 22:15 FiO2 21 11/15/24 21:29 Oxygen Flow Rate (L/min) 2 Oxygen Delivery Method Room Air Weight: 213 lb 13.574 oz Body Mass Index (BMI) 33.5 Intake & Output: Intake and Output for Last 24 Hours 11/20/24 11/21/24 11/22/24 23:59 23:59 23:59 Intake Total 1979 / 1979 1390 / 1390 800 / 800 Output Total 3250 / 3250 3600 / 3600 1200 / 1200 Balance -1270 / -1270 -2210 / -2210 -400 / -400 Lab / Micro Data 11/19/24 05:41 11/19/24 05:41 Labs: Laboratory Results - last 24 hr 11/21/24 16:09: POC Glucose 114 H 11/22/24 05:18: POC Glucose 127 H Physical Exam Const alert and no apparent distress General Appearance: cooperative Resp clear to auscultation bilaterally Cardio Cardio Narrative: rhythm feels regular on palpation of the radial pulse but, EKG with AF. The HR ranges from 48-63 on nothing to block the AV node. she is on Apixaban. GI normal to inspection, nondistended, normoactive bowel sounds, soft to palpation and non-tender Extremity no calf tenderness General Extremity: Negative for edema Skin General Skin Exam: no breakdown Rashes: no rashes Wounds: Negative for wounds noted Neuro Neuro Narrative: She is MOD I in the room with no AD needed. Making excellent progress with therapy. L eye is patched Psych cooperative and affect normal Appearance: appropriate Assessment & Plan Assessment/Plan (1) Debility: (2) Left acute arterial ischemic stroke, MCA (middle cerebral artery): (3) Global aphasia: (4) Right sided weakness: (5) Visual field cut: (6) Atrial fibrillation: (7) Subtherapeutic international normalized ratio (INR): (8) Diabetes: (9) (HFpEF) heart failure with preserved ejection fraction: (10) Hypothyroidism: (11) Obesity (BMI 30.0-34.9): (12) Essential hypertension: (13) Chronic anticoagulation: (14) Colon cancer: QUALIFIERS: Colon location: ascending Qualified Code(s): C18.2 - Malignant neoplasm of ascending colon (15) Hypophosphatemia: (16) Sleep-disordered breathing: (17) Hypoxia: (18) Mitral stenosis: (19) Pulmonary hypertension: (20) Noncompliance with medication regimen: PLAN: Plan 1. Continue therapy 2. Planning discharge home on Friday. 3. Overnight sleep study Friday evening following discharge from rehab 4. Will need a repeat overnight trending pulse ox 24 to 48 hours prior to discharge. Will likely need to go home with oxygen supplementation. 5. Will have her follow-up with Dr. Scherer for diabetes and hypothyroidism 6. Will need follow-up thyroid studies in 6 weeks. 7. Will need appointments with Dr. Robbins, Dr. Paige, neurology, Dr. Scherer and PCP at the time of discharge 8. Recheck lab on Friday. Charges/Coding Visit Charges Inpatient E&M: 93340 Subs Hosp L2
--- NOTE | 2024-11-22 13:13 | CASEMGMT ---
Addendum entered by Farida Li 11/22/24 13:40: Addendum: family confirmed request for outpatient therapy at [facility]. Team requesting [facility] to coordinate once DC date is known. No DME needs. Original Note: Social Work IDT met with patient, two daughters for Team meeting. Discussed patient's progress in PT/OT/ST/SN. Educated to [facility] insurance with NRD 11/23 and continued stay is not guaranteed with each review date. Pt is progressing well and mod I. Offered to set DC date. Dtr requesting the week to finalize 24/02 care. Pt will also need a sleep study, per the Dr, and will coordinate the DC date with sleep study, if able. All in agreement. JASPREET educated and provided resources for [facility] [place], private duty home care, and [facility]. SW to finalize DC plans. Farida Li REGISTERED RADIATION THERAPIST MANAGER LAND
[2024-11-22 16:57] LABS: Bedside Glucose 172 mg/dL (74-106)
[2024-11-22 17:55] VITALS: BP 120/50; PULSE 54; RESP 15; TEMP 36.5; O2SAT 94
[2024-11-22 20:07] VITALS: RESP 16; O2SAT 97
[2024-11-22] MEDS: Atorvastatin Calcium 40 MG Tablet PO (21:56)
[2024-11-23] MEDS: Acetaminophen 325 MG Tablet 650 MG PO ×3 (05:49→20:08)
[2024-11-23] MEDS: Levothyroxine 88 MCG Tablet PO (05:49)
[2024-11-23 05:50] LABS: Absolute Lymphocyte Count 2.14 X10^3/uL (0.83-4.51); Absolute Neutrophil Count 5.8 X10^3/uL (2.0-7.7); Basophil# 0.05 X10^3/uL; Basophil% 0.6 % (0-1); Eosinophil# 0.12 X10^3/uL; Eosinophils% 1.4 % (0-5); Hematocrit 45.2 % (37-47); Hemoglobin 14.4 g/dL (12.0-15.0); Lymphocyte # 2.14 X10^3/ul (0.83-4.51); Lymphocyte % 24.4 % (19-41); Mean Corp Hgb Conc 31.9 g/dL (32-36); Mean Corpuscular Hgb 28.2 pg (27.0-32.0); Mean Corpuscular Volume 88.5 fL (81-99); Mean Platelet Vol. 9.9 fl (6.2-12.0); Monocyte# 0.59 X10^3/uL; Monocyte% 6.7 % (0-10); NRBC Flagged by Analyzer 0 % (0-5); Neutrophil # 5.83 X10^3/uL (2.7-7.7); Neutrophil % 66.6 % (47-70); Platelet Count 264 K/mm3 (150-450); RBC Distribution Width CV 15.3 % (11.6-14.6); RBC Distribution Width SD 48.8 fl (35.1-43.9); Red Blood Count 5.11 M/mm3 (4.2-5.4); White Blood Count 8.8 K/mm3 (4.4-11.0)
[2024-11-23 06:00] VITALS: BP 138/57; PULSE 77; RESP 15; TEMP 37.1; O2SAT 94
[2024-11-23 06:20] LABS: Bedside Glucose 123 mg/dL (74-106)
[2024-11-23 06:25] LABS: ALB/GLOB Ratio 1.1 RATIO (0.9-2.4); AST(SGOT) 25 U/L (<=31); Alanine Aminotransfer ALT/SGPT 15 U/L (<=34); Albumin, Serum 3.9 g/dL (3.4-4.8); Alkaline Phosphatase 91 U/L (35-104); Anion Gap 12 (5-15); BUN 20 mg/dL (4-19); BUN/Creat Ratio 23.8 RATIO (10-20); Calcium,Total 9.7 mg/dL (7.6-11.0); Carbon Dioxide 20.8 mmol/L (21.0-32.0); Chloride 105 mmol/L (98-108); Creatinine, Serum 0.82 mg/dL (0.70-1.20); EST Glomerular Filtration Rate 76 (>60); Estimated Creatinine Clearance 74.17 ml/min (50-250); Globulin 3.5 g/dL (2.2-4.2); Glucose 132 mg/dL (70-99); Magnesium 2.1 mg/dL (1.5-2.2); Phosphorus 3.2 mg/dL (2.7-4.5); Potassium 4.2 mmol/L (3.3-5.1); Protein, Total 7.4 g/dL (5.9-8.4); Sodium Level 137 mmol/L (133-145); Total Bilirubin 0.42 mg/dL (0.00-1.30)
[2024-11-23] MEDS: Fluticasone/Salmeterol 232-14 Inhaler 1 PUFF INHALATION ×2 (07:39→20:07)
[2024-11-23] MEDS: Fluticasone 0.05% 1 SPRAY NASAL.SRY 2 SPRAY NASAL (07:40)
[2024-11-23] MEDS: Umeclidinium Bromide Inhaler 1 PUFF INHALATION (07:40)
[2024-11-23] MEDS: Senna/Docusate Sodium 1 Tablet 2 TABLET PO ×2 (07:40→20:08)
[2024-11-23] MEDS: Empagliflozin 25 MG Tablet PO (07:40)
[2024-11-23] MEDS: APIXABAN 5 MG TABLET PO ×2 (07:40→20:07)
--- NOTE | 2024-11-23 12:06 | PN_ITS ---
Subjective Subjective Afebrile Vital signs stable-blood pressure is at goal. Heart rate has ranged from 54-81 over the past 24 hours. Maintaining appropriate oxygen saturation on room air while awake. Wearing O2 at 2 L at night for sleep induced hypoxemia. No nursing events overnight that need to be addressed. Has been compliant with her call light and is less impulsive. No longer incontinent of urine. Blood sugars remain under excellent control with no hypoglycemia. Medication list was reviewed. All lab from today was personally reviewed. CBC is unremarkable. Hemoglobin is stable at 14.4. Sodium is 137 and the potassium is 4.2. The BUN is 20 and the creatinine is stable at 0.82. Phosphorus and magnesium are within normal limits. LFTs are normal. CEA is normal at 4.6. Objective Data Objective Data Vital Signs: Vital Signs Temp Pulse Resp BP Pulse Ox O2 Del Method O2 Flow Rate 98.7 F 77 15 138/57 H 94 Room Air 2 11/23/24 06:00 11/23/24 06:00 11/23/24 06:00 11/23/24 06:00 11/23/24 06:00 11/23/24 06:00 11/19/24 22:15 FiO2 21 11/15/24 21:29 Oxygen Flow Rate (L/min) 2 Oxygen Delivery Method Room Air Weight: 213 lb 13.574 oz Body Mass Index (BMI) 33.5 Intake & Output: Intake and Output for Last 24 Hours 11/21/24 11/22/24 11/23/24 23:59 23:59 23:59 Intake Total 1390 / 1390 1700 / 1900 2240 / 2240 Output Total 3600 / 3600 2250 / 2970 2070 / 2070 Balance -2210 / -2210 -550 / -1070 170 / 170 Lab / Micro Data 11/23/24 05:36 11/23/24 05:36 Labs: Laboratory Results - last 24 hr 11/22/24 16:38: POC Glucose 172 H 11/23/24 05:36: WBC 8.8, RBC 5.11, Hgb 14.4, Hct 45.2, MCV 88.5, MCH 28.2, MCHC 31.9 L, RDW Std Deviation 48.8 H, RDW Coeff of Angela 15.3 H, Plt Count 264, MPV 9.9, Immature Gran % (Auto) 0.300, Neut % (Auto) 66.6, Lymph % (Auto) 24.4, Jefferson % (Auto) 6.7, Eos % (Auto) 1.4, Baso % (Auto) 0.6, Absolute Neuts (auto) 5.8, Absolute Lymphs (auto) 2.14, Nucleated RBC % 0, Sodium 137, Potassium 4.2, Chloride 105, Carbon Dioxide 20.8 L, Anion Gap 12, BUN 20 H, Creatinine 0.82, Estim Creat Clear Calc 74.17, Est GFR (MDRD) Non-Af 76, BUN/Creatinine Ratio 23.8 H, Glucose 132 H, Calcium 9.7, Phosphorus 3.2, Magnesium 2.1, Total Bilirubin 0.42, AST 25, ALT 15, Alkaline Phosphatase 91, Total Protein 7.4, Albumin 3.9, Globulin 3.5, Albumin/Globulin Ratio 1.1 11/23/24 06:02: POC Glucose 123 H Physical Exam Const alert and no apparent distress General Appearance: cooperative Resp clear to auscultation bilaterally Cardio Cardio Narrative: irregular rhythm with controlled VR. GI normal to inspection, nondistended, normoactive bowel sounds, soft to palpation and non-tender Extremity no calf tenderness General Extremity: Negative for edema Skin General Skin Exam: no breakdown Rashes: no rashes Wounds: Negative for wounds noted Neuro Neuro Narrative: She is MOD I in the room with no AD needed. Making excellent progress with therapy. L eye is patched . Using the call light to summon nurses when she needs something. No incontinence. Psych cooperative and affect normal Appearance: appropriate Assessment & Plan Assessment/Plan (1) Debility: (2) Left acute arterial ischemic stroke, MCA (middle cerebral artery): (3) Global aphasia: (4) Right sided weakness: (5) Visual field cut: (6) Atrial fibrillation: (7) Diabetes: (8) (HFpEF) heart failure with preserved ejection fraction: (9) Hypothyroidism: (10) Chronic anticoagulation: (11) Sleep-disordered breathing: PLAN: Plan 1. Continue therapy 2. Plan discharge for Friday 3. Sleep study Friday night and then home Friday a.m. 4. No changes to the drug regimen today. Charges/Coding Visit Charges Inpatient E&M: 23742 Subs Hosp L1
--- NOTE | 2024-11-23 15:50 | CASEMGMT ---
Addendum entered by Farida Li 11/26/24 10:45: Sent O2 testing and script to [facility] [place] Original Note: Social Work SW spoke with Sleep Lab to schedule study and there is an opening 11/26. SW spoke with dtr and IDT - all in agreement. SW explained to dtr the procedure for DC to sleep lab and dtr will transport the morning after on 11/27. JASPREET faxed script to [facility] for ST. Sent referral to [facility] [place] for overnight O2 via [facility]. Plan: DC home with 24/02 care 11/26, after sleep study, [facility] ST, overnight O2 Farida Li WARDROBE STYLIST DRAFTER [employer]LECTRONIC
[2024-11-23 17:13] LABS: Bedside Glucose 132 mg/dL (74-106)
[2024-11-23 17:45] VITALS: BP 121/40; PULSE 52; RESP 17; TEMP 36.1; O2SAT 96
[2024-11-23] MEDS: Atorvastatin Calcium 40 MG Tablet PO (20:08)
[2024-11-24 06:00] VITALS: BP 149/44; PULSE 55; RESP 18; TEMP 36.5; O2SAT 96; BMI 33.7
[2024-11-24] MEDS: Acetaminophen 325 MG Tablet 650 MG PO ×3 (06:00→19:37)
[2024-11-24] MEDS: Levothyroxine 88 MCG Tablet PO (06:00)
[2024-11-24] MEDS: APIXABAN 5 MG TABLET PO ×2 (07:38→19:33)
[2024-11-24] MEDS: Fluticasone 0.05% 1 SPRAY NASAL.SRY 2 SPRAY NASAL (07:38)
[2024-11-24] MEDS: Fluticasone/Salmeterol 232-14 Inhaler 1 PUFF INHALATION ×2 (07:38→19:32)
[2024-11-24] MEDS: Senna/Docusate Sodium 1 Tablet 2 TABLET PO ×2 (07:38→19:37)
[2024-11-24] MEDS: Empagliflozin 25 MG Tablet PO (07:38)
[2024-11-24] MEDS: Umeclidinium Bromide Inhaler 1 PUFF INHALATION (07:39)
[2024-11-24 12:03] LABS: Bedside Glucose 123 mg/dL (74-106)
[2024-11-24 16:47] LABS: Bedside Glucose 142 mg/dL (74-106)
[2024-11-24 17:31] VITALS: BP 131/64; PULSE 63; RESP 16; TEMP 36.4; O2SAT 94
[2024-11-24] MEDS: Atorvastatin Calcium 40 MG Tablet PO (19:32)
[2024-11-25 06:00] VITALS: BP 131/59; PULSE 51; RESP 16; TEMP 36.6; O2SAT 97
[2024-11-25] MEDS: Acetaminophen 325 MG Tablet 650 MG PO ×3 (06:57→20:56)
[2024-11-25] MEDS: Levothyroxine 88 MCG Tablet PO (06:57)
[2024-11-25 07:29] LABS: Bedside Glucose 134 mg/dL (74-106)
[2024-11-25] MEDS: Fluticasone 0.05% 1 SPRAY NASAL.SRY 2 SPRAY NASAL (08:16)
[2024-11-25] MEDS: Umeclidinium Bromide Inhaler 1 PUFF INHALATION (08:16)
[2024-11-25] MEDS: Senna/Docusate Sodium 1 Tablet 2 TABLET PO ×2 (08:17→20:56)
[2024-11-25] MEDS: APIXABAN 5 MG TABLET PO ×2 (08:17→20:57)
[2024-11-25] MEDS: Fluticasone/Salmeterol 232-14 Inhaler 1 PUFF INHALATION ×2 (08:17→20:56)
[2024-11-25] MEDS: Empagliflozin 25 MG Tablet PO (08:17)
--- NOTE | 2024-11-25 11:12 | PCM.DC ---
Discharge Instructions Diet Discharge Diet: Carb Control Diet and - (Low-fat/low-salt) DC O2, CPAP, BIPAP needs Home O2 Discharge instructions: Yes Type of respiratory needs?: Oxygen Oxygen frequency: With Sleeping (2 LPM) Oxygen liters per minute when sleepin Dressing / Incision Discharge Activity: May Not Drive and - (ambulating in her room without an AD at MOD I but, recommend supervision when outside the house because she needs verbal cues for direction. ) Weight Bearing Status: Full weight bearing Keep extremity elevated above heart level: Legs Dressing / Incision Call your doctor if you observe: Fever of 101 or Higher, Shortness of breath, Dizziness, Fainting spells, Swelling in the ankles, Chest pain, Increased palpitations (irregular heartbeat), Calf discomfort, Uncontrolled pain and - (STROKE symptoms: facial droop, slurred speech, inability to get words out, weakness on 1 side of the body and not the other, numbness on 1 side of the body and not the other, inability to maintain your balance sitting or standing, vertigo. ) Follow Up Care When: appts are listed later in this document. You have scheduled appts with Dr. Alejandro Rosales and Latoya Marie FINANCIAL INSTITUTION VICE PRESIDENT (neurology) You will need to call and schedule appts with Dr. Robbins and Dr. Paige for ongoing follow up for Colon CA. Dr. Cotton office (endocrinology) will call you to schedule an appt for follow up of thyroid disease. Test Results: Test results from this visit will be discussed in further detail at your follow-up appointment, if applicable. Pending Tests Upon Discharge: none Discharge Plan Admission Admit Date/Time: 11/11/24 18:06 Primary Reason for Your Visit: Poststroke debility Attending Provider: Ada Soliman Primary Care Provider: Alejandro Rosales Consulting Providers: Rg Ponce Chi Instructions Patient Instructions: Aphasia: Improving Communication, What Are Snoring and Sleep Apnea?, Discharge Instructions for Stroke, AFib Preventing Stroke Additional Instructions / Restrictions: 1. You had a stroke because you have a problem with the rhythm of the heart called atrial fibrillation (also called AFIB). This increases your risk for stroke. Anticoagulants (blood thinners) help to decrease the risk for stroke. You used to take Warfarin (Coumadin) to thin your blood. Warfarin is a tricky drug because you have to thin the blood enough to prevent strokes but, not enough that you have spontaneous bleeding. We keep the dose therapeutic by measuring a blood test called an INR. The INR needs to be between 2-3.5 to prevent strokes. Your INR was SUBTHERAPEUTIC at 1.6. The blood thinner has been changed to Eliquis (also called Apixaban). You will take this medication twice a day every day and you do not have to have blood work done or change your diet. With Warfarin you need to avoid foods that contain Vitamin K because it reverses the anticoagulant effect of Warfarin. 2. Because you have had colon cancer you need to follow up with oncology for surveillance to make sure the cancer is not coming back. You had a colonoscopy in the summer [address] Paige that did not show any recurrence of cancer however she recommended a follow-up study in 1 year which did not get done. You also have not seen Dr. Robbins since 2022. You will need to call their offices and schedule appointments after you are discharged from acute rehab.There is a test called a CEA (carcinoembryonic antigen) that we follow for colon cancer. We checked the CEA while you are on acute rehab and the result was 4.6. This is high normal. It is actually down from 8.1 in October of 2022 and that is good. 3. You have an underactive thyroid and you were taking a thyroid supplement levothyroxine. The dose was 88 mcg daily. I do not think you were actually taking this medication at the time of the stroke because we checked your lab and the thyroid tests indicate you were significantly under active. Because of this your heart rate has been slow. The heart rate is slow despite taking the thyroid medication daily since the stroke. You are not on any medications to slow the heart rate down and there may be a problem with the pacemaker of the heart called the sinoatrial node (also called the SA node). You will need to follow up with cardiology for the AFIB and the slow heart rate. You may at some point need to have a pacemaker. 4. You have made a lot of progress in therapy and you are able to go home with family to help. You need to continue with therapy following discharge. 5. Your oxygen level drops at night when you are sleeping and this can lead to depression, memory loss, problems with the rhythm of the heart, trouble sleeping, feeling tired all the time and restless legs. The most common cause of this is sleep apnea. The way we test for this is to do a sleep study. You will be having a sleep study on the night that you are discharged from rehab and then go home in the morning. You will have an appt with a sleep medicine doctor after the sleep study to discuss the results and the treatment plan. In the meantime you will need to wear oxygen anytime you are sleeping to keep the oxygen level in your blood from dropping. The social science manager is arranging for the oxygen. 6. You are not allowed to drive. You may be able to drive in the future after some more therapy for the stroke. We have referred you to a drivers rehab program at [facility] in [place]. They will do testing to make sure that you will be safe driving. They check vision, response time, cognition etc. They will let you know if you are OK to drive. 7. It has been a pleasure getting to know you Elizabeth. You have made everyone on rehab smile daily. I hope things keep getting better for you. If you or your family have any questions afer leaving rehab please do not hesitate to call me. OFFICE: [phone] CELL: [phone] NURSES STATION ON REHAB: [phone] Discharge Orders/Prescriptions Prescriptions: New acetaminophen 325 mg Tablet 650 mg PO TID PRN (Reason: fever/pain) Qty: 1 0RF albuterol sulfate 90 mcg/actuation Hfa Aerosol Inhaler 2 puff inhalation Q4H PRN (Reason: Wheezing) Qty: 1 0RF Rx Instructions: 2 puffs every 4 hours as needed for wheezing/shortness of breath Continued colchicine 0.6 mg capsule 0.6 mg PO BID PRN Patient Comments: TAKE 2 CAPSULES BY MOUTH HARISH, THEN 1 CAP AN HOUR LATER DIRECTED atorvastatin 40 mg tablet 40 mg PO QHS Qty: 30 0RF levothyroxine [Euthyrox] 88 mcg Tablet 88 mcg PO DAILY Qty: 30 0RF Rx Instructions: Take this on an empty stomach and then do not eat or drink for 30 minutes. fluticasone propionate 50 mcg/actuation spray,suspension 2 spray INTRANASAL DAILY Qty: 1 0RF Eliquis 5 mg tablet 5 mg PO BID Qty: 60 0RF dapagliflozin propanediol [Farxiga] 10 mg tablet 10 mg PO DAILY Qty: 30 0RF Trelegy Ellipta 200-62.5-25 mcg blister with device 1 inh inhalation DAILY Qty: 1 0RF Discontinued albuterol sulfate [Proventil HFA] 90 mcg/actuation HFA aerosol inhaler 2 puff INHALATION Q4H PRN (Reason: Wheezing) furosemide 40 mg tablet 40 mg PO BID Patient Comments: TAKE 1 TABLET BY MOUTH ONCE TO TWICE DAILY DIRECTED ipratropium bromide 21 mcg (0.03 %) spray,non-aerosol 1 - 2 spray INTRANASAL Q6H PRN PRN (Reason: rhinitis) Referrals / Follow Up: Alejandro Rosales MD [Primary Care Provider] - 11/29/24 3:30 pm Marc Robbins MD [Med Staff - Active Staff] - (pt to make appt, after DC) Bakari Miller MD [Med Staff - Active Staff] - 12/23/24 1:30 pm (Bring ID, Insurance Card and list of medications ) Dio Scherer MD [Med Staff - Courtesy Staff] - (referral ent. office will call to make appointment. if you don't hear from them in 1 week call the office) Michelle Paige MD [Med Staff - Active Staff] - (call office to make a follow up appointment for you colonoscopy ) Latoya Marie NP-C [Med Staff - Adv Practice Prof] - 12/07/24 9:00 am Disposition Disposition (needs filled in before D/C Order can be placed): Home, Self Care
[2024-11-25 17:27] LABS: Bedside Glucose 109 mg/dL (74-106)
[2024-11-25 18:00] VITALS: BP 149/71; PULSE 53; RESP 17; TEMP 36.7; O2SAT 95
[2024-11-25] MEDS: Atorvastatin Calcium 40 MG Tablet PO (20:57)
[2024-11-25 21:42] VITALS: PULSE 52; O2SAT 96
--- NOTE | 2024-11-26 01:54 | NURSING ---
Patient insisitng on stayting up in chair at this time, states I'm wide awake, I've slept all night and I just wanna get out of here. Explained to pt that is is 2am, pt states she can't back to sleep. Remains up in chair, listening to music.
[2024-11-26 05:05] VITALS: BP 137/59; PULSE 50; RESP 16; TEMP 36.3; O2SAT 97
[2024-11-26 05:08] VITALS: BMI 33.6
[2024-11-26] MEDS: Acetaminophen 325 MG Tablet 650 MG PO ×3 (05:12→20:20)
[2024-11-26] MEDS: Levothyroxine 88 MCG Tablet PO (05:13)
[2024-11-26 07:53] LABS: Bedside Glucose 151 mg/dL (74-106)
[2024-11-26] MEDS: APIXABAN 5 MG TABLET PO ×2 (08:39→20:17)
[2024-11-26] MEDS: Senna/Docusate Sodium 1 Tablet 2 TABLET PO ×2 (08:39→20:17)
[2024-11-26] MEDS: Umeclidinium Bromide Inhaler 1 PUFF INHALATION (08:39)
[2024-11-26] MEDS: Fluticasone/Salmeterol 232-14 Inhaler 1 PUFF INHALATION (08:39)
[2024-11-26] MEDS: Fluticasone 0.05% 1 SPRAY NASAL.SRY 2 SPRAY NASAL (08:39)
[2024-11-26] MEDS: Empagliflozin 25 MG Tablet PO (08:39)
--- NOTE | 2024-11-26 13:55 | EX.DISCHREH ---
Providers Date of Admission: 11/11/24 Date of Discharge: 11/26/24 Primary Care Physician: Dr. Alejandro Rosales MD none Reason For Visit: CVA Diagnosis Discharge Diagnosis (1) Debility: Status: Acute Code(s): R53.81 - Other malaise (2) Left acute arterial ischemic stroke, MCA (middle cerebral artery): Status: Acute Code(s): I63.512 - Cerebral infarction due to unspecified occlusion or stenosis of left middle cerebral artery (3) Global aphasia: Status: Acute Code(s): R47.01 - Aphasia Plan: Expressive and receptive aphasia. Improved while on rehab but, still with severe aphasia. (4) Right sided weakness: Status: Acute Code(s): R53.1 - Weakness Plan: improved. Mild weakness of the R UE and LE and very mild R facial droop at DC. (5) Visual field cut: Status: Acute Code(s): H53.40 - Unspecified visual field defects Plan: left eye - no vision. We have been patching the eye. (6) Atrial fibrillation: Status: Chronic Code(s): I48.91 - Unspecified atrial fibrillation Qualifiers: Atrial fibrillation type: longstanding persistent Qualified Code(s): I48.11 - Longstanding persistent atrial fibrillation Plan: She has bradycardia that did not improve with getting her back on Levothyroxine. TSH was 30. She is on no medication to block the AV node. I suspect she has SSS. HR is in the 50's most often at rest.......it increases to the low 60's sometimes with exertion. Appt made with [facility]. Has not been seen there in 3 years. (7) Diabetes: Status: Chronic Code(s): E11.9 - Type 2 diabetes mellitus without complications Qualifiers: Diabetes mellitus type: type 2 Diabetes mellitus chcf insulin use: without chcf use Diabetes mellitus complication status: with circulatory complication Diabetes mellitus complication detail: with other circulatory complications Qualified Code(s): E11.59 - Type 2 diabetes mellitus with other circulatory complications (8) (HFpEF) heart failure with preserved ejection fraction: Status: Acute Code(s): I50.30 - Unspecified diastolic (congestive) heart failure Qualifiers: Heart failure chronicity: acute on chronic Qualified Code(s): I50.33 - Acute on chronic diastolic (congestive) heart failure Plan: Acute on chronic (9) Hypothyroidism: Status: Chronic Code(s): E03.9 - Hypothyroidism, unspecified Qualifiers: Hypothyroidism type: unspecified Qualified Code(s): E03.9 - Hypothyroidism, unspecified Plan: Non-compliant with medication. TSH 30 while on rehab. Will continue levothyroxine 88 mcg daily and have her follow-up with Dr. Dio Scherer for follow-up thyroid testing in 6 weeks. 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 INR was only 1.6 when she presented to the ED with stroke sx. (11) Sleep-disordered breathing: Status: Acute Code(s): G47.30 - Sleep apnea, unspecified Plan: Sleep study done on the night of DC from rehab. (12) Bradycardia: Status: Chronic Code(s): R00.1 - Bradycardia, unspecified (13) Noncompliance with medication regimen: Status: Chronic Code(s): Z91.148 - Patient's other noncompliance with medication regimen for other reason (14) Pulmonary hypertension: Status: Chronic Code(s): I27.20 - Pulmonary hypertension, unspecified (15) Mitral stenosis: Status: Chronic Code(s): I05.0 - Rheumatic mitral stenosis Qualifiers: Cardiac valve disease etiology: etiology unspecified Qualified Code(s): I05.0 - Rheumatic mitral stenosis (16) Obesity (BMI 30.0-34.9): Status: Chronic Code(s): E66.811 - Obesity, class 1 (17) COPD (chronic obstructive pulmonary disease): Status: Chronic Code(s): J44.9 - Chronic obstructive pulmonary disease, unspecified Qualifiers: COPD type: unspecified COPD Qualified Code(s): J44.9 - Chronic obstructive pulmonary disease, unspecified (18) Colon cancer: Status: Chronic Code(s): C18.9 - Malignant neoplasm of colon, unspecified Qualifiers: Colon location: ascending Qualified Code(s): C18.2 - Malignant neoplasm of ascending colon Plan: Diagnosed in August 2021 and had a right hemicolectomy. This has seen Dr. Robbins and Dr. Paige for follow-up but she was lost to follow-up in February 2023. CEA while on rehab was 4.6. (19) PAD (peripheral artery disease): Status: Chronic Code(s): I73.9 - Peripheral vascular disease, unspecified (20) Essential hypertension: Status: Chronic Code(s): I10 - Essential (primary) hypertension Plan 1. DC home with family. Needs 24/ supervision and family is aware and has made plans to provide this. 2. Follow-up appointments have been made with Latoya Marie NP (neurology), Dr. Alejandro Rosales and [facility] (Dr. Miller). Dr. Scherer's office will call her to schedule an appt.....a referral was made for hypothyroidism. Family will call to schedule appts with Dr. Robbins, Dr. Paige. She should also follow up with ophthalmology for blindness L eye. 3. FMLA papers completed for her dtr. 4. Sleep study on the night of DC from acute rehab. 5. Ambulating without an AD at [place]. should have supervision when ambulating outside of her home because she needs verbal cues for direction on wear to turn to get to her destination. Medications at Discharge Home Medications colchicine 0.6 mg capsule 0.6 mg PO BID PRN gout flare 09/30/24 acetaminophen 325 mg tablet 650 mg (2 x 325 mg) PO TID PRN fever/pain #1 TAB 11/25/24 albuterol sulfate 90 mcg/actuation aerosol inhaler 2 puff inhalation Q4H PRN Wheezing #1 g 11/25/24 apixaban 5 mg tablet (Eliquis) 5 mg PO BID blood thinner #60 tabs 11/25/24 atorvastatin 40 mg tablet 40 mg PO QHS cholesterol #30 tabs 11/25/24 dapagliflozin propanediol 10 mg tablet (Farxiga) 10 mg PO DAILY dm #30 tabs 11/25/24 fluticasone fur. 200 mcg-umeclid 62.5 mcg-vilant 25 mcg inhalat.powder (Trelegy Ellipta) 1 inh inhalation DAILY sob #1 inh 11/25/24 fluticasone propionate 50 mcg/actuation nasal spray,suspension 2 spray intranasal DAILY congestion #1 inh 11/25/24 levothyroxine 88 mcg tablet (Euthyrox) 88 mcg PO DAILY THYROID #30 tabs 11/25/24 Hospital Course Operations None Procedures 2-D Echocardiogram (Had ECHO at [facility]) Summary of Care Provided Minutes Spent on Discharge: 48 Hospital Course: ELIZABETH RODRIGUEZ is a 74 YO F with a PMH of diabetes mellitus type 2, dyslipidemia, essential hypertension, hypothyroidism, atrial fibrillation, chronic anticoagulation, GERD, colon cancer with history of right hemicolectomy in 2021, osteoarthritis, tobacco dependence in remission, depression, prior TIAs/CVAs, COPD, peripheral vascular disease, mitral stenosis, PFO and chronic combined systolic and diastolic congestive heart failure who presented to the emergency department at [facility] on 11/08/2024 as a stroke alert. Presenting complaints included facial droop on the right, slurred speech and weakness of the right arm. Patient was unable to provide history due to dysarthria/aphasia. Initial NIH was 8 in the emergency department. Noncontrast CT brain showed no intracerebral bleeding. CTA of the head/neck showed focal high-grade stenosis/occlusion of the M1 segment of the left MCA with distal reconstitution. There was moderate calcific plaque of the bilateral carotid siphons and of the left subclavian artery distal to its origin resulting in mild stenosis. INR was subtherapeutic at 1.6. EKG showed atrial fibrillation with a heart rate of 58 bpm. Teleneurology was consulted and the patient was transferred to [facility] for possible thrombectomy. Patient was not a candidate for TNK due to being on warfarin and last known well was unknown. NIHSS score was 6 at presentation to [facility]. At [facility] she was deemed not to be a candidate for thrombectomy due to no clear large vessel occlusion. She was loaded with Plavix 300 mg and also with aspirin 325 mg. Aspirin 81 mg and Plavix 75 mg were ordered daily thereafter. The cause of the stroke was deemed to be atrial fibrillation with a subtherapeutic INR. While at [facility] she was transitioned from warfarin to Eliquis. She was transferred to the acute inpatient unit at [facility] on 11/11/2024 for 3 hours of therapy daily to restore function/independence at or near her level prior to the most recent stroke. She really had severe receptive and expressive aphasia at presentation to rehab. She is also blind in the Left eye and we have been patching the eye. The eye deviates laterally. 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 She had R side weakness. While on rehab she has been persistently in AF but, HR was in the 48-56 range on no medication to block the AVN. A TSH was checked and was 30.2. After a few weeks on Levothyroxine she is still bradycardic. HR is generally in the 50-56 range but, has increased to the low 60's at time with exertion. I suspect she has SSS/AV loren dysfunction. She has seen [facility] in the past but, has not been seen there in 3 years. An appt was made for her to follow up with Dr. Lozanos at [place]. Elizabeth has also been lost to follow up with oncology (Dr. Robbins) and with Dr. Paige. Her last colonoscopy was in February of 2023 and at that time there was no recurrence but, she was told to follow up with a colonoscopy in 1 year. She last saw Dr. Robbins in January 2023. A CEA was checked while on rehab and it was 4.6 which is down from 8 in the past. She had an abnormal PET scan in 2022 which prompted the colonoscopy. I suspect Elizabeth has been having cognitive dysfunction that predated this most recent stroke and this contributes to non-compliance with medication and doctor follow up. She will need assistance with medications, financial analyst intern and follow up with physicians at [place] from rehab. She also needs 24/ supervision and her dtr has been arranging for this. Elizabeth was very cooperative with therapy. She made good progress while on rehab. At the time of discharge she has ambulated up to 450 feet on various surfaces with no assistive device at supervision. She requires maximum cueing for direction due to aphasia. She has been ambulating on the rehab unit at mod I in her room and in the hallways up to 495 feet with no assistive device. She is mod I with transfers from various surfaces. She is able to do 10 sit to stands in 30 seconds using her upper extremities to rise. She can ascend/descend 20 steps with 1 handrail at supervision. She is mod I with eating, bathing, upper body dressing and lower body dressing. She is independent with grooming, toilet transfer and toileting. Will recommend supervision with tub/shower transfer for at least the first 1 to 2 weeks postdischarge from rehab. She has made good progress with speech therapy but still has severe receptive and expressive aphasia discharge. She is no longer impulsive and has been calling for the nurse when she needs assistance. She is continent of urine and stool and she is sleeping well throughout the night. Blood sugars are under excellent control. She has had no hypoglycemia. An overnight trending pulse ox was done for suspected MURIEL while on rehab and she had hypoxia while sleeping with desaturation events. She is having a formal overnight sleep study in the sleep lab on the night of discharge from acute inpatient rehab. Physical Exam Const alert and no apparent distress Constitutional Narrative: Always cooperative with staff. General Appearance: cooperative, well kempt and well developed HEENT head/scalp atraumatic HEENT Narrative: Moist mucous membranes. Tongue protrudes on the midline. No evidence of thrush. Eyes Eyes Narrative: The left eye is deviated laterally. She had no vision in the Left eye and it is being patched. The left pupil is not as responsive to light as the R eye. The Left pupil is dilated when compared to the left. No loss of vision in the R eye. There is no scleral icterus and no conjunctivits. There is no Dc from the eyes and no mattering of the eyelashes. Neck supple, No nodes and no carotid bruits General: trachea midline Chest Chest: symmetrical chest wall rise Resp normal respiratory effort, normal air movement, no use of accessory muscles and clear to auscultation bilaterally Effort and Inspection: able to speak in complete sentences Cardio no rub and no gallops Cardio Narrative: irreg rhythm.....can sound regular at times because the rate is so slow. EKG confirms AF. GI normal to inspection, nondistended, normoactive bowel sounds, soft to palpation and non-tender no CVA tenderness Narrative: Denies dysuria Extremity no calf tenderness Extremity Narrative: Trace ankle edema, TYRELL hose in place. Skin no jaundice General Skin Exam: no breakdown Rashes: no rashes Hair: normal Neuro Neuro Narrative: Mild right facial droop. Tongue protrudes on the midline. The pupils were equal when I first examined her in rehab but now the left pupil is dilated when compared to the right. The left eye is deviated laterally. She has no vision in the left eye. The left pupil is minimally responsive to light. The left eye did track all the way to the medial canthus and to the lateral canthus when both eyes were open. The ataxia of the right upper extremity has mostly resolved. No ataxia with the right leg. There is no drift with either upper extremity or lower extremity. The right upper extremity is mildly weak when compared to the left. She has good plantarflexion and dorsiflexion of both feet. It was weaker on the right with both at admission to rehab. Still some dullness to pinprick in the right lower extremity. No extinction with touch. Persistent receptive and expressive aphasia. Unable to name any of the objects I showed her on the NIH scoring card. Was able to read 2 words from the list. Unable to read any of the sentences and was able to identify a few things happening in the picture I showed her. she recognized the dog and was able to tell me that the man was falling off the ladder. She neglected the Left side of the picture. Could not check for visual extinction.......she was unable to comprehend what I was asking her to do. Psych cooperative, affect normal and denies suicidal ideation Appearance: grossly normal, appropriate and well kempt Attitude: engaged Activity / Motor Behavior: appropriate eye contact Weight / BMI Weight Weight: 214 lb 4.629 oz Body Mass Index (BMI) 33.6 ABG / Lab / Microbiology Data 11/23/24 05:36 11/23/24 05:36 Laboratory: Laboratory Results - last 24 hr 11/25/24 17:10: POC Glucose 109 H 11/26/24 07:34: POC Glucose 151 H Indicators for Scoring Admitted with or Primary Diagnosis of CVA/Stroke: Yes Hx of CVA/Stroke: Yes Modified Jessy Score MRS Score at time of Evaluation: 3-Moderate disability (The R side is stronger and she is ambulating without an AD however she still has severe aphasia, both receptive and expressive and I think she is a 3 still. ) NIHSS NIHSS 1a. Level of Consciousness: 0 - Alert; keenly responsive 1b. LOC Questions: 1 - Answers ONE question correctly 1c. LOC Commands: 0 - Performs BOTH tasks correctly 2. Best Gaze: 0 - Normal (The R eye is normal with no visual loss but, she is blind in the left eye. ) 3. Visual: 0 - No visual loss (The R eye is normal with no visual loss but, she is blind in the left eye. Left eye is deviated laterally. ) 4. Facial Palsy: 1 - Minor paralysis (flattened nasolabial fold, asymmetry on smiling) 5a. Left Arm: 0 - No drift; arm holds 90 (or 45) degrees for full 10 seconds 5b. Right Arm: 0 - No drift; arm holds 90 (or 45) degrees for full 10 seconds 6a. Left Le - No drift; leg holds 30-degree position for full 5 seconds 6b. Right Le - No drift; leg holds 30-degree position for full 5 seconds 7. Limb Ataxia: 0 - Absent 8. Sensory: 1 - [id number]-wx-xrtoavad sensory loss; 9. Best Language: 2 - Severe aphasia; 10. Dysarthria: 1 = [id number] dysarthria; 11. Extinction and Inattention: 0 - No abnormality Total: 6 Stroke Questions Stroke Team Activated: No D/C Instructions Discharge Diet: Carb Control Diet and - (Low-fat/low-salt) Weight Bearing Status: Full weight bearing Keep extremity elevated above heart level: Legs Call your doctor if you observe: Fever of 101 or Higher, Shortness of breath, Dizziness, Fainting spells, Swelling in the ankles, Chest pain, Increased palpitations (irregular heartbeat), Calf discomfort, Uncontrolled pain and - (STROKE symptoms: facial droop, slurred speech, inability to get words out, weakness on 1 side of the body and not the other, numbness on 1 side of the body and not the other, inability to maintain your balance sitting or standing, vertigo. ) DC O2, CPAP, BIPAP Needs RN Home O2 qualification: No Data to Display PSN CPAP & BiPAP: BiPAP & CPAP Settings per PSN Fraction of Inspired Oxygen ( 11/25/24 21:42 FIO2) Home Oxygen Instructions: Home O2 discharge Instructions Type of respiratory needs? Oxygen 11/26/24 13:11 DC Oxygen Instruction Oxygen frequency With Sleeping 11/26/24 13:11 Oxygen liters per minute when 2 11/26/24 13:55 sleeping Home O2 Discharge instructions: Yes Type of respiratory needs?: Oxygen Oxygen frequency: With Sleeping (2 LPM) Oxygen liters per minute when sleepin DC home with Oxygen: Yes Home O2 MD Review: I have reviewed the oxygen testing, and the patient qualifies for home oxygen equipment and portability. The patient is mobile in the home and the community. Pending Tests Upon Discharge: none When: appts are listed later in this document. You have scheduled appts with Dr. Alejandro Rosales and Latoya Marie TRANSPORT NURSE (neurology) You will need to call and schedule appts with Dr. Robbins and Dr. Paige for ongoing follow up for Colon CA. Dr. Cotton office (endocrinology) will call you to schedule an appt for follow up of thyroid disease. Meaningful Use Info Meaningful Use Meaningful Use Diagnoses (Choose all that apply): Ischemic CVA CVA Therapy Assessed for PT,OT and/or ST?: Yes Ischemic Stroke Antithrombotic order at d/c?: No Reason antithrombotic not ordered: Treatment not Indicated (stroke due to AF and she is on Eliquis) Dx of Atrial fib/flutter?: Yes Anticoagulant at discharge?: Yes Statin Dosing Therapy Reference: STATIN DOSE THERAPY REFERENCE: * Patients > 75 years receive moderate or high dose statin therapy. * Patients 75 years or YOUNGER should receive HIGH intensity statin dose unless contraindicated. You will be required to document reason for non-treatment if statin daily dose does not meet guidelines. HIGH DOSE STATIN THERAPY DAILY Atorvastatin > than or = to 40 mg Rosuvastatin > than or = to 20 mg Amlodipine + Atorvastatin > than or = to 2.5/40 mg Ezetimibe + Simvastatin 10/80 mg Simvastatin 80mg Statins at discharge?: Yes If patient is 75 or younger, pt will be discharged on HIGH intensity statin.: Yes High intensity statin for patient 75 or younger not ordered due to: on Atorvastatin 40 mg Primary Dx Acute Ischemic CVA?: Yes IV thrombolytic ordered during stay?: No Reason IV thrombolytic not ordered: Procedure not Indicated (was on Warfarin and last know well was not known) Discharge Plan Admission Admit Date/Time: 11/11/24 18:06 Primary Reason for Your Visit: Poststroke debility Attending Provider: Ada Soliman Primary Care Provider: Alejandro Rosales Consulting Providers: Rg Ponce Chi Instructions Patient Instructions: Aphasia: Improving Communication, What Are Snoring and Sleep Apnea?, Discharge Instructions for Stroke, AFib Preventing Stroke Additional Instructions / Restrictions: 1. You had a stroke because you have a problem with the rhythm of the heart called atrial fibrillation (also called AFIB). This increases your risk for stroke. Anticoagulants (blood thinners) help to decrease the risk for stroke. You used to take Warfarin (Coumadin) to thin your blood. Warfarin is a tricky drug because you have to thin the blood enough to prevent strokes but, not enough that you have spontaneous bleeding. We keep the dose therapeutic by measuring a blood test called an INR. The INR needs to be between 2-3.5 to prevent strokes. Your INR was SUBTHERAPEUTIC at 1.6. The blood thinner has been changed to Eliquis (also called Apixaban). You will take this medication twice a day every day and you do not have to have blood work done or change your diet. With Warfarin you need to avoid foods that contain Vitamin K because it reverses the anticoagulant effect of Warfarin. 2. Because you have had colon cancer you need to follow up with oncology for surveillance to make sure the cancer is not coming back. You had a colonoscopy in the summer [address] Paige that did not show any recurrence of cancer however she recommended a follow-up study in 1 year which did not get done. You also have not seen Dr. Robbins since 2022. You will need to call their offices and schedule appointments after you are discharged from acute rehab.There is a test called a CEA (carcinoembryonic antigen) that we follow for colon cancer. We checked the CEA while you are on acute rehab and the result was 4.6. This is high normal. It is actually down from 8.1 in October of 2022 and that is good. 3. You have an underactive thyroid and you were taking a thyroid supplement levothyroxine. The dose was 88 mcg daily. I do not think you were actually taking this medication at the time of the stroke because we checked your lab and the thyroid tests indicate you were significantly under active. Because of this your heart rate has been slow. The heart rate is slow despite taking the thyroid medication daily since the stroke. You are not on any medications to slow the heart rate down and there may be a problem with the pacemaker of the heart called the sinoatrial node (also called the SA node). You will need to follow up with cardiology for the AFIB and the slow heart rate. You may at some point need to have a pacemaker. 4. You have made a lot of progress in therapy and you are able to go home with family to help. You need to continue with therapy following discharge. 5. Your oxygen level drops at night when you are sleeping and this can lead to depression, memory loss, problems with the rhythm of the heart, trouble sleeping, feeling tired all the time and restless legs. The most common cause of this is sleep apnea. The way we test for this is to do a sleep study. You will be having a sleep study on the night that you are discharged from rehab and then go home in the morning. You will have an appt with a sleep medicine doctor after the sleep study to discuss the results and the treatment plan. In the meantime you will need to wear oxygen anytime you are sleeping to keep the oxygen level in your blood from dropping. The social work assistant is arranging for the oxygen. 6. You are not allowed to drive. You may be able to drive in the future after some more therapy for the stroke. We have referred you to a drivers rehab program at [facility] in [place]. They will do testing to make sure that you will be safe driving. They check vision, response time, cognition etc. They will let you know if you are OK to drive. 7. It has been a pleasure getting to know you Elizabeth. You have made everyone on rehab smile daily. I hope things keep getting better for you. If you or your family have any questions afer leaving rehab please do not hesitate to call me. OFFICE: [phone] CELL: [phone] NURSES STATION ON REHAB: [phone] Discharge Orders/Prescriptions Prescriptions: New acetaminophen 325 mg Tablet 650 mg PO TID PRN (Reason: fever/pain) Qty: 1 0RF albuterol sulfate 90 mcg/actuation Hfa Aerosol Inhaler 2 puff inhalation Q4H PRN (Reason: Wheezing) Qty: 1 0RF Rx Instructions: 2 puffs every 4 hours as needed for wheezing/shortness of breath Continued colchicine 0.6 mg capsule 0.6 mg PO BID PRN Patient Comments: TAKE 2 CAPSULES BY MOUTH HARISH, THEN 1 CAP AN HOUR LATER DIRECTED atorvastatin 40 mg tablet 40 mg PO QHS Qty: 30 0RF levothyroxine [Euthyrox] 88 mcg Tablet 88 mcg PO DAILY Qty: 30 0RF Rx Instructions: Take this on an empty stomach and then do not eat or drink for 30 minutes. fluticasone propionate 50 mcg/actuation spray,suspension 2 spray INTRANASAL DAILY Qty: 1 0RF Eliquis 5 mg tablet 5 mg PO BID Qty: 60 0RF dapagliflozin propanediol [Farxiga] 10 mg tablet 10 mg PO DAILY Qty: 30 0RF Trelegy Ellipta 200-62.5-25 mcg blister with device 1 inh inhalation DAILY Qty: 1 0RF Discontinued albuterol sulfate [Proventil HFA] 90 mcg/actuation HFA aerosol inhaler 2 puff INHALATION Q4H PRN (Reason: Wheezing) furosemide 40 mg tablet 40 mg PO BID Patient Comments: TAKE 1 TABLET BY MOUTH ONCE TO TWICE DAILY DIRECTED ipratropium bromide 21 mcg (0.03 %) spray,non-aerosol 1 - 2 spray INTRANASAL Q6H PRN PRN (Reason: rhinitis) Referrals / Follow Up: Alejandro Rosales MD [Primary Care Provider] - 11/29/24 3:30 pm Marc Robbins MD [Med Staff - Active Staff] - (pt to make appt, after DC) Bakari Miller MD [Med Staff - Active Staff] - 12/23/24 1:30 pm (Bring ID, Insurance Card and list of medications ) Dio Scherer MD [Med Staff - Courtesy Staff] - (referral ent. office will call to make appointment. if you don't hear from them in 1 week call the office) Michelle Paige MD [Med Staff - Active Staff] - (call office to make a follow up appointment for you colonoscopy ) Latoya Marie, REY-C [Med Staff - Adv Practice Prof] - 12/07/24 9:00 am Disposition Disposition (needs filled in before D/C Order can be placed): Home, Self Care Charges/Coding Visit Charges Inpatient E&M: 86584 Disch Hosp >30min
[2024-11-26 17:14] LABS: Bedside Glucose 146 mg/dL (74-106)
[2024-11-26 17:33] VITALS: BP 127/61; PULSE 54; RESP 16; TEMP 36.6; O2SAT 99
[2024-11-26 20:15] VITALS: BP 132/59; PULSE 52; RESP 18; TEMP 36.6; O2SAT 98
[2024-11-26] MEDS: Atorvastatin Calcium 40 MG Tablet PO (20:17)
[2024-11-26 20:28] VITALS: BP 132/59; PULSE 52; RESP 18; TEMP 36.6; O2SAT 98
== END 2024-11-26 20:29 | disposition home or self-care (01) | DRG 57 ==
PROVIDERS: Admitting Provider Family Medicine Geriatric Medicine; PCP Family Medicine; Referring Provider Family Medicine Geriatric Medicine; Visit Provider Internal Medicine
DX: I69.351 Hemiplegia and hemiparesis following cerebral infarction affecting right dominant side (principal); I50.42 Chronic combined systolic (congestive) and diastolic (congestive) heart failure; I48.11 Longstanding persistent atrial fibrillation; Q21.12 Patent foramen ovale; I27.20 Pulmonary hypertension, unspecified; I69.320 Aphasia following cerebral infarction; E83.39 Other disorders of phosphorus metabolism; I69.322 Dysarthria following cerebral infarction; I11.0 Hypertensive heart disease with heart failure; J44.9 Chronic obstructive pulmonary disease, unspecified; E11.51 Type 2 diabetes mellitus with diabetic peripheral angiopathy without gangrene; E03.9 Hypothyroidism, unspecified; Z68.33 Body mass index [BMI] 33.0-33.9, adult; J30.9 Allergic rhinitis, unspecified; G47.30 Sleep apnea, unspecified; M10.9 Gout, unspecified; E78.5 Hyperlipidemia, unspecified; I69.392 Facial weakness following cerebral infarction; I69.398 Other sequelae of cerebral infarction; K21.9 Gastro-esophageal reflux disease without esophagitis; H53.40 Unspecified visual field defects; Z85.038 Personal history of other malignant neoplasm of large intestine; Z79.890 Hormone replacement therapy; Z79.84 Long term (current) use of oral hypoglycemic drugs; Z79.01 Long term (current) use of anticoagulants; I49.3 Ventricular premature depolarization; Z91.148 Patient's other noncompliance with medication regimen for other reason; E66.811 Obesity, class 1; Z87.891 Personal history of nicotine dependence; Z79.899 Other long term (current) drug therapy
CPT/HCPCS: 36415; 80048; 80053; 82378; 82962; 83735; 84100; 84439; 84443; 85014; 85018; 85025; 85027; 92507; 92523; 93005; 94668; 94762; 97110; 97112; 97116; 97162; 97166; 97530; 97535; 97803

== ENCOUNTER → 2024-11-26 | Outpatient (CLI) | payer MEDICARE, OTHER, SELFPAY | END | disposition home or self-care (01) | LOC: SL 20:45 | PROVIDERS: PCP Family Medicine; Referring Provider Internal Medicine; Visit Provider Internal Medicine | DX: G47.10 Hypersomnia, unspecified (principal) | CPT/HCPCS: 95810 ==

== ENCOUNTER → 2024-12-15 | Outpatient (CLI) | payer MEDICARE, OTHER, SELFPAY ==
--- NOTE | 2024-12-15 11:08 | CDU_ITS ---
Reason For Study Reason For Study: TIA Rt. Velocities/BP Lt. Velocities/BP Prox CCA 80.6/17.3 cm/sec. Prox CCA 74.9/16.3 cm/sec. Mid CCA 86.3/17.3 cm/sec. Mid CCA 59.8/16.3 cm/sec. Dist CCA 72.1/19.2 cm/sec. Dist CCA 55.1/17.3 cm/sec. Prox ICA 79/15.1 cm/sec. Prox ICA 48.5/9.5 cm/sec. Mid ICA 72.8/20 cm/sec. Mid ICA 76.2/17.7 cm/sec. Dist ICA 69.1/20 cm/sec. Dist ICA 63.9/19.5 cm/sec. Rt. ICA/CCA = 0.92. Lt. ICA/CCA = 1.27. Prox ECA 103.5/10.2 cm/sec. Prox ECA 30.8/6.6 cm/sec. Rt. Vert. 53.2/8.8 cm/sec. Lt. Vert. 63.9/14.2 cm/sec. Right Extracranial There is intimal thickening but no significant atherosclerotic plaque noted in the right common carotid artery. There is heterogeneous, irregular atherosclerotic plaque noted in the right internal carotid artery. There is intimal thickening but no significant atherosclerotic plaque noted in the right external carotid artery. Antegrade flow is noted in the right vertebral artery. Left Extracranial There is homogeneous, smooth atherosclerotic plaque noted in the left common carotid artery. There is intimal thickening but no significant atherosclerotic plaque noted in the left internal carotid artery. There is intimal thickening but no significant atherosclerotic plaque noted in the left external carotid artery. Antegrade flow is noted in the left vertebral artery. Procedure Carotid Duplex 63833. This is a Carotid Duplex examination using B-mode, color flow and specral Doppler. Exam performed in department. VL/Carotid Duplex Ultrasound Interpretation Summary Mild (<50%) stenosis right extracranial internal carotid. Mild (<50%) stenosis left extracranial internal carotid. Flow within the vertebral arteries is antegrade bilaterally. Ordering Physician: Jamey Harrington Referring Physician: Alejandro Rosales MD Performed By: Tresa Simmons RVT
--- NOTE | 2024-12-15 11:08 | ART_ITS ---
Reason For Study Reason For Study: PAD Procedure A bilateral lower extremity continuous wave Doppler with analog waveform analysis and ankle brachial indexes. Left Segmental Pressures Left brachial= 123mmHg. Left posterior tibial artery = 85mmHg. Left dorsalis pedis artery = 106mmHg. Left digit = 49 mmHg. The left dorsalis pedis waveforms are biphasic. The left posterior tibial artery waveforms are biphasic. Right Segmental Pressures Right brachial= 121mmHg. Right posterior tibial artery = 89mmHg. Right dorsalis pedis artery = 108mmHg. Right digit = 43 mmHg. The right dorsalis pedis waveforms are biphasic. The right posterior tibial artery waveforms are biphasic. Indices The right ankle brachial index by the dorsalis pedis is 0.88. The right ankle brachial index by the posterior tibial artery is 0.72. The right digital-brachial index is 0.35. The left ankle brachial index by the dorsalis pedis is 0.86. The left ankle brachial index by the posterior tibial artery is 0.69. The left digital-brachial index is 0.40. VL/Ankle Brachial Index Interpretation Summary The right resting ankle-brachial index appears mildly abnormal. The left restin g ankle-brachial index appears mildly abnormal. Ordering Physician: Jamey Harrington Referring Physician: Alejandro Rosales MD Performed By: Tresa Simmons RVT
== END | disposition home or self-care (01) ==
LOC: CVS 11:05
PROVIDERS: PCP Family Medicine; Referring Provider Surgery Vascular Surgery; Visit Provider Surgery Vascular Surgery
DX: I70.213 Atherosclerosis of native arteries of extremities with intermittent claudication, bilateral legs (principal); Z86.73 Personal history of transient ischemic attack (TIA), and cerebral infarction without residual deficits; I10 Essential (primary) hypertension; I65.23 Occlusion and stenosis of bilateral carotid arteries
CPT/HCPCS: 93880; 93922

== ENCOUNTER 2024-12-17 08:15 | Observation (INO) | payer MEDICARE, OTHER, SELFPAY ==
[2024-12-17 08:15] VITALS: BP 129/66; PULSE 82; RESP 14; TEMP 36.3; O2SAT 98; BMI 33.2
--- NOTE | 2024-12-17 08:27 | RAD_ITS ---
PROCEDURE: WRIST MIN 3 VIEWS 12/17/2024 REASON FOR EXAM: PAIN Medial pain. No history of trauma. TECHNIQUE: 3 view(s) of the right wrist COMPARISON: None FINDINGS: Bones: No visible fracture. No suspicious bone lesion. Joints: Normal alignment. Soft tissues: Soft tissues are unremarkable. Other: RAD/Wrist min 3 Views IMPRESSION: NEGATIVE WRIST Reading Location: [id number]
--- NOTE | 2024-12-17 08:27 | RAD_ITS ---
PROCEDURE: WRIST MIN 3 VIEWS 12/17/2024 REASON FOR EXAM: PAIN Medial pain. No history of trauma. TECHNIQUE: 3 view(s) of the right wrist COMPARISON: None FINDINGS: Bones: No visible fracture. No suspicious bone lesion. Joints: Normal alignment. Soft tissues: Soft tissues are unremarkable. Other: RAD/Wrist min 3 Views IMPRESSION: NEGATIVE WRIST Reading Location: [id number]
--- NOTE | 2024-12-17 08:36 | EDS_ITS ---
HPI History of Present Illness Chief Complaint: Upper Extremity Injury Informant: patient and family Narrative Narrative: Ildea-rfbg-ygwgnluq female here with daughter for evaluation nontraumatic right wrist pain started at 12:30 AM yesterday. No strenuous activities yesterday. She is recovering from a stroke last month. She was transferred to [facility] due to M1 occlusion and there is no intervention. She was transition over from warfarin to Eliquis. Paroxysmal A-fib history she was subtherapeutic when she had the stroke. Daughter reports couple months ago had moderate swelling to the left ring finger put on antibiotics and resolved. Did follow-up with ivette macario/hand Dr. Jama, no surgical intervention. Denies fever or chills. Pain with movement of the wrist. She is a diabetic. Prior similar symptoms: No PFSH PFSH Medical History Pulmonary hypertension Colon cancer Mitral stenosis Gout (HFpEF) heart failure with preserved ejection fraction Hypothyroidism Noncompliance with medication regimen Pre-op evaluation Obesity (BMI 30.0-34.9) Hypokalemia Abnormal gastrointestinal PET scan Contusion Subtherapeutic international normalized ratio (INR) Stroke/cerebrovascular accident Post-menopausal Thyroid disease Diabetes TIA (transient ischemic attack) Dietary restriction Diarrhea Gastric reflux History of edema History of irregular heartbeat Cardiology follow-up encounter Cancer Colonic mass Elevated TSH Anemia Wears glasses Wears dentures Depression Bruising Arthritis Walker as ambulation aid Ambulates with cane Easy bruising Former smoker COPD (chronic obstructive pulmonary disease) Shortness of breath on exertion History of echocardiogram Chronic anticoagulation PAD (peripheral artery disease) History of rheumatic fever as a child History of anxiety PFO with atrial septal aneurysm Atrial thrombus CVA (cerebral vascular accident) (~2006) Essential hypertension Chronic combined systolic and diastolic heart failure Home Medications ?Medication ?Instructions ?Recorded ?Last Taken ?Type acetaminophen 325 mg tablet 650 mg (2 x 325 mg) PO TID PRN 11/25/24 12/17/24 Rx fever/pain #1 TAB albuterol sulfate 90 mcg/actuation 2 puff inhalation Q 4H PRN Wheezing 11/25/24 Unknown Rx aerosol inhaler #1 g dapagliflozin propanediol 10 mg 10 mg PO DAILY dm #30 tabs 11/25/24 12/17/24 Rx tablet (Farxiga) fluticasone fur. 200 mcg-umeclid 1 inh inhalation MOE Y sob #1 inh 11/25/24 Unknown Rx 62.5 mcg-vilant 25 mcg inhalat.powder (Trelegy Ellipta) fluticasone propionate 50 2 spray intranasal DAILY Unknown Rx mcg/actuation nasal congestion #1 inh spray,suspension levothyroxine 88 mcg tablet 88 mcg PO DAILY THYROID #3 0 tabs 11/25/24 12/17/24 Rx (Euthyrox) apixaban 5 mg tablet (Eliquis) 5 mg PO BID blood thinn er #60 tabs 12/07/24 12/17/24 Rx atorvastatin 40 mg tablet 40 mg PO QHS cholesterol #30 tabs 12/07/24 12/16/24 Rx Allergy/AdvReac Type Severity Reaction Status Date / Time codeine Allergy Severe anaphylaxis Verified 12/17/24 08:16 Family History Father Myocardial infarction Cancer lung CVA (cerebral vascular accident) Mother Colon cancer Brother Diabetes CAD (coronary artery disease) open heart surgery Surgical History Hx of right hemicolectomy S/P right hemicolectomy Hx of colonoscopy History of hysterectomy History of appendectomy History of cholecystectomy Social History household members: other details: 22 year old grandson lives with her, but he works nights. Smoking Status: Former smoker how long ago did patient quit smokin years ago alcohol intake: never substance use type: does not use caffeine: Yes Type: tea Number of servings: 2 ROS ROS ED Constitutional Constitutional ED: Denies fever(s) Cardiovascular Cardiovascular: Denies chest pain Respiratory/Chest Respiratory/Chest: Denies cough Gastrointestinal Gastrointestinal: Denies diarrhea or vomiting Musculoskeletal Musculoskeletal: Reports other Details: Right wrist pain. Integumentary Denies rash or wounds Neurologic Neurologic: Denies weakness EXAM Physical Exam Const Vital Signs: 12/17/24 08:15 Temperature 97.4 F L Temperature Source Temporal Pulse Rate 82 Respiratory Rate 14 Blood Pressure 129/66 H Blood Pressure Mean 87 Pulse Ox 98 Oxygen Delivery Method Room Air Positive well nourished and well developed Constitutional Narrative: Nontoxic General Appearance ED: well developed HEENT normocephalic and atraumatic Eyes General Eye ED: Yes normal appearance of both eyes Neck full ROM Resp normal respiratory effort and normal air movement Cardio regular rate and regular rhythm GI soft to palpation Extremity Extremity Narrative: Right upper extremity: No elbow tenderness. Small bruise on the distal dorsal forearm nontender. Patient was pointing at pain at the ulnar styloid however on palpation no pain. Pain with range of motion of the wrist there is no redness no warmth slight swelling noted. No snuffbox tenderness. No hand tenderness or swelling. Neuro oriented x3 Skin no wounds Skin Narrative: See above MDM MDM MDM Narrative Medical decision making narrative: Interventions / MDM: Differential diagnosis: Right wrist pain, septic wrist, history of diabetes, history of A-fib Diagnosis considered but do not suspect: N/A My EKG interpretation: Rate controlled A-fib 41, no ST changes. Imaging independently reviewed and interpreted by myself: Right wrist x-ray 3 views: No acute process also read by radiology. External documents reviewed: N/A Test considered but not ordered:N/A ED course: Patient nontraumatic pain to the wrist increasing pain with movement. Slight swelling no redness or warmth. She is a diabetic. She is on Eliquis. Will check x-ray, will send for labs including inflammatory markers. Tylenol ordered. 0952: X-ray no effusion noted. Labs white count normal slightly elevated inflammatory markers with ESR 48 CRP 32. There is similar elevation from September this year currently from her finger infection ordered outpatient. Still with pain with movement, discussed with patient risks and benefits with aspiration especially she been on Eliquis for bleeding and infections, including dry tap. She would like to pursue further rule out. Consent will be obtained for planned attempt at aspiration. She is ordered for oxycodone for which she has tolerated previously. 1020: Written consent obtained risk and benefits discussed with patient. Timeout performed. Sterile precautions were taken. Patient's arm was laid on table with Chux. Betadine prep with dorsal aspect of the wrist. Sterile gloves. Dorsal approach on the ulnar aspect of the wrist into the joint using 25-gauge 1-1/2 inch needle, approximately 0.5 cc yellow fluid was obtained. No bloody fluid. Patient uncomfortable during procedure however tolerated well. Minimal fluid aspirated yellow in nature, will send for lab for Gram stain and culture. Is not enough fluid for cell counts or crystals. 1042: I spoke with plastic/hand Dr. Jama, knows the patient from outpatient visit. Discussed history findings with wrist aspiration. States with wrist typically minimal aspiration of fluid can be obtained. However this is pending. He recommends with concerns for septic wrist, broad-spectrum antibiotics admission to medicine and he will follow-up closely. Discussed she is on Eliquis with her recent LVO and paroxysmal A-fib, will continue Eliquis at this time. Therefore I will discuss with hospitalist service. I spoke with hospitalist Dr. Castro for admission. EKG returned rate controlled A-fib at 41. Re-evaluation: stable Disposition discussed with patient/family/significant other: Patient and daughter Case discussed with consulting clinician: Plastic/hand surgeon, hospitalist This note was generated with [employer] dictation software. It may contain incorrect words, spelling, and punctuation that were not noted in checking the note before signing. Discharge Plan Dx/Rx/DC Orders Clinical Impression: Acute pain of right wrist, Chronic anticoagulation, History of diabetes mellitus, Atrial fibrillation Disposition Disposition: Acute Care Hospital [facility]
[2024-12-17] MEDS: Acetaminophen 500 MG Tablet 1000 MG PO (08:40)
[2024-12-17 09:02] LABS: Erythrocyte Sedimentation Rate 48 mm/hr (0-30)
[2024-12-17 09:05] LABS: Absolute Lymphocyte Count 1.23 X10^3/uL (0.83-4.51); Absolute Neutrophil Count 6.1 X10^3/uL (2.0-7.7); Basophil# 0.05 X10^3/uL; Basophil% 0.6 % (0-1); Eosinophil# 0.09 X10^3/uL; Eosinophils% 1.1 % (0-5); Hemoglobin 13.9 g/dL (12.0-15.0); Lymphocyte # 1.23 X10^3/ul (0.83-4.51); Lymphocyte % 14.9 % (19-41); Mean Corp Hgb Conc 32.3 g/dL (32-36); Mean Corpuscular Hgb 28.3 pg (27.0-32.0); Mean Corpuscular Volume 87.4 fL (81-99); Mean Platelet Vol. 10.2 fl (6.2-12.0); Monocyte# 0.71 X10^3/uL; Monocyte% 8.6 % (0-10); NRBC Flagged by Analyzer 0 % (0-5); Neutrophil # 6.11 X10^3/uL (2.7-7.7); Neutrophil % 74.3 % (47-70); Platelet Count 227 K/mm3 (150-450); RBC Distribution Width CV 15.1 % (11.6-14.6); RBC Distribution Width SD 48.6 fl (35.1-43.9); Red Blood Count 4.92 M/mm3 (4.2-5.4); White Blood Count 8.2 K/mm3 (4.4-11.0)
[2024-12-17 09:12] LABS: Anion Gap 10 (5-15); BUN 18 mg/dL (4-19); BUN/Creat Ratio 22.7 RATIO (10-20); Calcium,Total 9.6 mg/dL (7.6-11.0); Carbon Dioxide 24.6 mmol/L (21.0-32.0); Chloride 102 mmol/L (98-108); Creatinine, Serum 0.79 mg/dL (0.70-1.20); EST Glomerular Filtration Rate 80 (>60); Glucose 146 mg/dL (70-99); Sodium Level 136 mmol/L (133-145)
[2024-12-17] MEDS: oxyCODONE 5 MG Tablet PO (10:03)
--- NOTE | 2024-12-17 10:47 | EKG12_ITS ---
Test Reason : GENERAL Blood Pressure : */* mmHG Vent. Rate : 41 BPM Atrial Rate : * BPM P-R Int : * ms QRS Dur : 84 ms QT Int : 474 ms P-R-T Axes : * 106 65 degrees QTcB Int : 391 ms Atrial fibrillation with slow ventricular response Rightward axis Low voltage QRS Septal infarct (cited on or before 18-Nov-2024) Abnormal ECG Confirmed by BENITO HERNÁNDEZ, KRISTIAN ([id number]), index editor RENNY VALERIO ([id number]) on 12/20/2024 8:45:08 AM Referred By: Confirmed By: KRISTIAN OLIVER MD
--- NOTE | 2024-12-17 10:47 | EKG12_ITS ---
Test Reason : GENERAL Blood Pressure : */* mmHG Vent. Rate : 41 BPM Atrial Rate : * BPM P-R Int : * ms QRS Dur : 84 ms QT Int : 474 ms P-R-T Axes : * 106 65 degrees QTcB Int : 391 ms Atrial fibrillation with slow ventricular response Rightward axis Low voltage QRS Septal infarct (cited on or before 18-Nov-2024) Abnormal ECG Confirmed by BENITO HERNÁNDEZ, KRISTIAN ([id number]), pictures editor RENNY VALERIO ([id number]) on 12/20/2024 8:45:08 AM Referred By: Confirmed By: KRISTIAN OLIVER MD
--- NOTE | 2024-12-17 10:52 | HP.PCM.HOS_ITS ---
HPI - General General Date of Admission: 12/17/24 Date of Service: 12/17/24 Chief Complaint: right wrist pain HPI Narrative YAMILE RODRIGUEZ, is a 74 F with a PMH as outlined who presents via the ED on 12/17/2024 with a complaint of right wrist pain. The pain started the day before admission. The pain was worse with movement of the right wrist. She could not flex or extend her wrist. She rated the pain at 10 out of 10. She denied any trauma to the arm or the wrist. She denied any fever or chills, nausea vomiting or any other symptoms. She denies any history of gout. Review of systems otherwise negative. Vitals i the ED were BP of 129/66, DE of 82, RR of 14 and temp of 97.4F. She was saturating at 98% on room air. CBC showed wbc of 8.2, hb of 13.9 and platelets of 227. ESR was 48. Chemistry showed sodium of 136, potassium of 4 and bicarb of 24.6. Cr was 0.79. CRP was elevated at 32.40. Right wrist x-ray was negative for any acute pathology. She has been admitted to be evaluated for right wrist cellulitis with concern for septic arthritis. She did have right wrist aspiration done in the ED by ED doctor. [facility] Medical History Pulmonary hypertension Colon cancer Mitral stenosis Gout (HFpEF) heart failure with preserved ejection fraction Hypothyroidism Noncompliance with medication regimen Pre-op evaluation Obesity (BMI 30.0-34.9) Hypokalemia Abnormal gastrointestinal PET scan Contusion Subtherapeutic international normalized ratio (INR) Stroke/cerebrovascular accident Post-menopausal Thyroid disease Diabetes TIA (transient ischemic attack) Dietary restriction Diarrhea Gastric reflux History of edema History of irregular heartbeat Cardiology follow-up encounter Cancer Colonic mass Elevated TSH Anemia Wears glasses Wears dentures Depression Bruising Arthritis Walker as ambulation aid Ambulates with cane Easy bruising Former smoker COPD (chronic obstructive pulmonary disease) Shortness of breath on exertion History of echocardiogram Chronic anticoagulation PAD (peripheral artery disease) History of rheumatic fever as a child History of anxiety PFO with atrial septal aneurysm Atrial thrombus CVA (cerebral vascular accident) (~2006) Essential hypertension Chronic combined systolic and diastolic heart failure Home Medications ?Medication ?Instructions ?Recorded ?Last Taken ?Type acetaminophen 325 mg tablet 650 mg (2 x 325 mg) PO TID PRN 11/25/24 12/17/24 Rx fever/pain #1 TAB albuterol sulfate 90 mcg/actuation 2 puff inhalation Q 4H PRN Wheezing 11/25/24 Unknown Rx aerosol inhaler #1 g dapagliflozin propanediol 10 mg 10 mg PO DAILY dm #30 tabs 11/25/24 12/17/24 Rx tablet (Farxiga) fluticasone fur. 200 mcg-umeclid 1 inh inhalation MOE Y sob #1 inh 11/25/24 Unknown Rx 62.5 mcg-vilant 25 mcg inhalat.powder (Trelegy Ellipta) fluticasone propionate 50 2 spray intranasal DAILY Unknown Rx mcg/actuation nasal congestion #1 inh spray,suspension levothyroxine 88 mcg tablet 88 mcg PO DAILY THYROID #3 0 tabs 11/25/24 12/17/24 Rx (Euthyrox) apixaban 5 mg tablet (Eliquis) 5 mg PO BID blood thinn er #60 tabs 12/07/24 12/17/24 Rx atorvastatin 40 mg tablet 40 mg PO QHS cholesterol #30 tabs 12/07/24 12/16/24 Rx Allergy/AdvReac Type Severity Reaction Status Date / Time codeine Allergy Severe anaphylaxis Verified 12/17/24 08:16 Family History Father Myocardial infarction Cancer lung CVA (cerebral vascular accident) Mother Colon cancer Brother Diabetes CAD (coronary artery disease) open heart surgery Surgical History Hx of right hemicolectomy S/P right hemicolectomy Hx of colonoscopy History of hysterectomy History of appendectomy History of cholecystectomy Social History household members: other details: 22 year old grandson lives with her, but he works nights. Smoking Status: Former smoker how long ago did patient quit smokin years ago alcohol intake: never substance use type: does not use caffeine: Yes Type: tea Number of servings: 2 ROS Constitutional Constitutional: Denies anorexia, chills, fatigue, fever(s), malaise or weakness Eyes Eyes: Denies change in vision ENT HEENT: Denies dysphagia or headache(s) Cardiovascular Cardiovascular: Denies chest pain, dyspnea on exertion, edema, lightheadedness, orthopnea, palpitations, paroxysmal nocturnal dyspnea, rapid heart rate or syncope Respiratory/Chest Respiratory/Chest: Denies cough, dyspnea, productive cough, shortness of breath at rest or shortness of breath with exertion Gastrointestinal Gastrointestinal: Denies abdominal pain, constipation, diarrhea, dyspepsia, nausea or vomiting Genitourinary Genitourinary: Denies burning urination, dysuria or urinary frequency Musculoskeletal Musculoskeletal: Reports joint pain Neurologic Neurologic: Denies confusion, dizziness, focal weakness, headache(s) or seizures Psychiatric Psychiatric: Denies anxiety Vital Signs Vital Signs Vital Signs: 12/17/24 08:15 Temperature 97.4 F L Temperature Source Temporal Pulse Rate 82 Respiratory Rate 14 Blood Pressure 129/66 H Blood Pressure Mean 87 Pulse Ox 98 Oxygen Delivery Method Room Air Weight Weight: 212 lb 1.355 oz Body Mass Index (BMI) 33.2 Physical Exam Const alert and oriented x3 Constitutional Narrative: in mild distress due to the wrist pain General Appearance: cooperative HEENT normocephalic, head/scalp atraumatic, hearing grossly normal bilaterally and moist oral mucous membranes Mouth: oral and palatal mucosa normal Eyes PERRL, EOMs intact bilaterally and conjunctivae normal Neck no lymphadenopathy and supple Resp normal respiratory effort, no retractions, no use of accessory muscles and clear to auscultation bilaterally Cardio regular rate, regular rhythm, S1 normal heart sound, S2 normal heart sound and no murmurs GI normal to inspection, nondistended, normoactive bowel sounds, soft to palpation, non-tender and non-distended Extremity Extremity Narrative: writh wrist mildly swollen, with minimal differential warmth, very tender to touch, especially over the lateral aspect of the wrist. Unable to flex or extend wrist without pain. No erythema. Intact dressing over site of the wrist aspiration Neuro oriented x3, CN's II-XII intact bilaterally, moves all extremities and no focal motor deficits Sensorium / Orientation: awake and alert Motor Exam: strength 5/5 throughout Psych affect normal Results Lab / Micro Data 12/17/24 08:42 12/17/24 08:42 Labs: Laboratory Results - last 24 hr 12/17/24 08:42: WBC 8.2, RBC 4.92, Hgb 13.9, Hct 43.0, MCV 87.4, MCH 28.3, MCHC 32.3, RDW Std Deviation 48.6 H, RDW Coeff of Angela 15.1 H, Plt Count 227, MPV 10.2, Immature Gran % (Auto) 0.500, Neut % (Auto) 74.3 H, Lymph % (Auto) 14.9 L, Carter % (Auto) 8.6, Eos % (Auto) 1.1, Baso % (Auto) 0.6, Absolute Neuts (auto) 6.1, Absolute Lymphs (auto) 1.23, Nucleated RBC % 0, ESR 48 H, Sodium 136, Potassium 4.0, Chloride 102, Carbon Dioxide 24.6, Anion Gap 10, BUN 18, Creatinine 0.79, Estim Creat Clear Calc 75.70, Est GFR (MDRD) Non-Af 80, B UN/Creatinine Ratio 22.7 H, Glucose 146 H, Calcium 9.6, C-React Prot Ext Range 32.40 H Imaging Radiology Impression Wrist X-Ray 12/17/24 08:27 IMPRESSION: NEGATIVE WRIST Reading Location: [id number] Assessment & Plan Assessment/Plan (1) Acute pain of right wrist: PLAN: Plan #Right wrist pain and swelling * Concerning for septic arthritis. The swelling has been going on for 1 day. * ED doctor was able to aspirate some fluid from it which will be sent for cell count and culture. * Discussed with plastic surgery wanted patient admitted due to concern for septic arthritis. Will consult plastic surgery. Started on broad-spectrum antibiotics. ESR and CRP elevated. * P.o. Tylenol and p.o. oxycodone as needed for pain. IV morphine as needed for pain. * PT/OT consult * fall precautions * uric acid not elevated, so will hold off on adding on colchicine and steroids. * # History of COPD: Not in exacerbation. Breathing treatments bronchodilators. #Hyperlipidemia: On statin #Type 2 diabetes mellitus: On Farxiga. Insulin sliding scale. Accu-Cheks ACHS. #Hypothyroidism: Synthroid #History of A-fib: On Eliquis DVT prophylaxis: Already on Eliquis Code status: full code * Patient counseled extensively about different types of CODE STATUS including full code, DNR CCA and DNR CCA. Patient elects to be full code. * Total [id number] time 17 minutes. Charges/Coding Visit Charges Inpatient E&M: 23348 Init Hosp L2
--- NOTE | 2024-12-17 10:55 | EX.PCM.CON.S ---
Assessment & Plan Assessment/Plan (1) Acute pain of right wrist: PLAN: Plan #Right wrist pain and swelling (agree with differential of potential right wrist septic arthritis versus inflammatory arthritis) Agree with broad-spectrum antibiotics Follow-up wrist aspirate for diagnosis N.p.o. at midnight Elevate right upper extremity Plastics will follow HPI Consult Data Date of Consult: 12/17/24 HPI Narrative HPI Narrative: Elizabeth Henley is a delightful 74-year-old female with past medical history of atrial fibrillation on Coumadin whom I have seen previously for left ring finger swelling and potential hematoma that improved with rest and elevation earlier this past winter who presents today with acute onset right handed wrist pain. The wrist pain started approximately 10:30 AM yesterday and has been getting worse ever since. On presentation to the emergency department, the the ED physician today aspirated the right wrist out of concern for septic wrist and obtained 1/2 cc of clear yellow fluid. Today in the emergency department she has stable vital signs. Her white blood cell count is within normal limits at 8.2. She reports sharp severe pain in the right upper extremity worsened by movements and improved with rest and elevation. Her hemoglobin A1c is 6.6 Of note the patient has been recovering from a stroke over the past month (she was transferred to [facility] last month). Of note she has no history of gout. She does not report any changes in her diet recently [facility] Medical History Pulmonary hypertension Colon cancer Mitral stenosis Gout (HFpEF) heart failure with preserved ejection fraction Hypothyroidism Noncompliance with medication regimen Pre-op evaluation Obesity (BMI 30.0-34.9) Hypokalemia Abnormal gastrointestinal PET scan Contusion Subtherapeutic international normalized ratio (INR) Stroke/cerebrovascular accident Post-menopausal Thyroid disease Diabetes TIA (transient ischemic attack) Dietary restriction Diarrhea Gastric reflux History of edema History of irregular heartbeat Cardiology follow-up encounter Cancer Colonic mass Elevated TSH Anemia Wears glasses Wears dentures Depression Bruising Arthritis Walker as ambulation aid Ambulates with cane Easy bruising Former smoker COPD (chronic obstructive pulmonary disease) Shortness of breath on exertion History of echocardiogram Chronic anticoagulation PAD (peripheral artery disease) History of rheumatic fever as a child History of anxiety PFO with atrial septal aneurysm Atrial thrombus CVA (cerebral vascular accident) (~2006) Essential hypertension Chronic combined systolic and diastolic heart failure Home Medications ?Medication ?Instructions ?Recorded ?Last Taken ?Type acetaminophen 325 mg tablet 650 mg (2 x 325 mg) PO TID PRN 11/25/24 12/17/24 Rx fever/pain #1 TAB albuterol sulfate 90 mcg/actuation 2 puff inhalation Q4H PRN Wheezing 11/25/24 Unknown Rx aerosol inhaler #1 g dapagliflozin propanediol 10 mg 10 mg PO DAILY dm #30 tabs 11/25/24 12/17/24 Rx tablet (Farxiga) fluticasone fur. 200 mcg-umeclid 1 inh inhalation DAILY sob #1 inh 11/25/24 Unknown Rx 62.5 mcg-vilant 25 mcg inhalat.powder (Trelegy Ellipta) fluticasone propionate 50 2 spray intranasal DAILY 11/25/24 Unknown Rx mcg/actuation nasal congestion #1 inh spray,suspension levothyroxine 88 mcg tablet 88 mcg PO DAILY THYROID #30 tabs 11/25/24 12/17/24 Rx (Euthyrox) apixaban 5 mg tablet (Eliquis) 5 mg PO BID blood thinner #60 tabs 12/07/24 12/17/24 Rx atorvastatin 40 mg tablet 40 mg PO QHS cholesterol #30 tabs 12/07/24 12/16/24 Rx Allergy/AdvReac Type Severity Reaction Status Date / Time codeine Allergy Severe anaphylaxis Verified 12/17/24 08:16 Family History Father Myocardial infarction Cancer lung CVA (cerebral vascular accident) Mother Colon cancer Brother Diabetes CAD (coronary artery disease) open heart surgery Surgical History Hx of right hemicolectomy S/P right hemicolectomy Hx of colonoscopy History of hysterectomy History of appendectomy History of cholecystectomy Social History household members: other details: 22 year old grandson lives with her, but he works nights. Smoking Status: Former smoker how long ago did patient quit smokin years ago alcohol intake: never substance use type: does not use caffeine: Yes Type: tea Number of servings: 2 Physical Exam Narrative Right upper Extremity Inspection: Some swelling in the right wrist but no overlying redness. No signs of induration or any crepitus. No signs of ascending infection Palpation: Exquisite tenderness of the right wrist. There is positive pain with axial loading to the right wrist Motor: Able to bend and extend all MP, PIP, and DIP joints. Sensory: Intact to light touch on the radial and ulnar borders. Vascular: Finger tips are warm and well perfused with <2 second capillary refill. Lab / Micro Data 12/17/24 08:42 12/17/24 08:42 Labs: Laboratory Results - last 24 hr 12/17/24 08:42: WBC 8.2, RBC 4.92, Hgb 13.9, Hct 43.0, MCV 87.4, MCH 28.3, MCHC 32.3, RDW Std Deviation 48.6 H, RDW Coeff of Angela 15.1 H, Plt Count 227, MPV 10.2, Immature Gran % (Auto) 0.500, Neut % (Auto) 74.3 H, Lymph % (Auto) 14.9 L, [place] % (Auto) 8.6, Eos % (Auto) 1.1, Baso % (Auto) 0.6, Absolute Neuts (auto) 6.1, Absolute Lymphs (auto) 1.23, Nucleated RBC % 0, ESR 48 H, Sodium 136, Potassium 4.0, Chloride 102, Carbon Dioxide 24.6, Anion Gap 10, BUN 18, Creatinine 0.79, Estim Creat Clear Calc 75.70, Est GFR (MDRD) Non-Af 80, BUN/Creatinine Ratio 22.7 H, Glucose 146 H, Calcium 9.6, C-React Prot Ext Range 32.40 H Imaging Radiology Impression Wrist X-Ray 12/17/24 08:27 IMPRESSION: NEGATIVE WRIST Reading Location: [id number] Charges/Coding Visit Charges Office Visits / Consults: 81156 OV L3 New 30min (Patient was seen for a new problem in the emergency department by plastic surgery)
[2024-12-17] MEDS: Piperacil/Tazobactam 4.5 GM in 0.9% Normal Saline (100mL MB+) 100 ML IV (11:01)
[2024-12-17 11:24] VITALS: BP 134/64; BP 136/78; PULSE 76; PULSE 78; RESP 14; RESP 16; TEMP 36.6; TEMP 37; O2SAT 98; O2SAT 99
[2024-12-17] MEDS: Vancomycin HCl 2,000 MG in 0.9% Normal Saline (500mL Bag) 500 ML 250 MG IV (11:40)
[2024-12-17 12:20] VITALS: BMI 31.4
[2024-12-17 12:33] VITALS: BP 140/59; PULSE 98; RESP 18; TEMP 36.6; O2SAT 95
[2024-12-17 13:08] LABS: Uric Acid 5.2 mg/dL (2.6-6.0)
[2024-12-17] MEDS: DiphenhydrAMINE 50 MG/ML Syringe 25 MG IV ×2 (13:37→23:45)
--- NOTE | 2024-12-17 16:21 | PCM.RX.CS ---
Consult Antibiotic Management Pharmacy has been consulted to manage selected antibiotic: Vancomycin Type of Intervention Type of Consult: Suspected Infection Suspected Infection: Other Labs Labs: Sodium 136 mmol/L (133-145) 12/17/24 08:42 Potassium 4.0 mmol/L (3.3-5.1) 12/17/24 08:42 Chloride 102 mmol/L (98-108) 12/17/24 08:42 Carbon Dioxide 24.6 mmol/L (21.0-32.0) 12/17/24 08:42 Anion Gap 10 (5-15) 12/17/24 08:42 BUN 18 mg/dL (4-19) 12/17/24 08:42 Creatinine 0.79 mg/dL (0.70-1.20) 12/17/24 08:42 Est GFR (MDRD) Non-Af 80 (>60) 12/17/24 08:42 BUN/Creatinine Ratio 22.7 RATIO (10-20) H 12/17/24 08:42 Glucose 146 mg/dL (70-99) H 12/17/24 08:42 Goal Trough Goal Trough: 15-20 mcg/mL Pharmacy Plan for Drug Dosing Pharmacy Plan for Drug Dosing: IV VANCOMYCIN Consulting Physician: Dr. Castro Indication: Septic arthritis Goal Trough: 15-20 SrCr: 0.79 CrCl: 75mL/min Comments: patient had initial dose in ED of 2g IV x1 12/17/24. NOTE: ALL DOSES OF VANCOMYCIN TO BE SLOWED DOWN AND RAN AT HALF THE NORMAL RATE. MONITOR FOR S/S ALLERGIC/INFUSION REACTIONS Vancomycin Dose: 1250mg IV Q12hr to start 12/18/24 @0000. Rate decreased to 83 ml/hr (1/2 the normal rate). Pending Level: 12/18/24 @2330 Pharmacy Service will continue to monitor and adjust dosing as required.
[2024-12-17 16:51] LABS: Bedside Glucose 163 mg/dL (74-106)
--- NOTE | 2024-12-17 19:28 | NURSING ---
spoke w/ Solange in Pharmacy re:pt severe itching midway thru 1st dose of vanc -started in ER-Dr Castro gave v.o. t cut rate of infusion from 250 to 125/hr for this dose-1 time order of IV benadryl given-no further orders at this time
[2024-12-17 20:40] VITALS: BP 116/56; PULSE 50; RESP 18; TEMP 36.4; O2SAT 96
[2024-12-17] MEDS: APIXABAN 5 MG TABLET PO (21:02)
[2024-12-17] MEDS: Atorvastatin Calcium 40 MG Tablet PO (21:02)
--- NOTE | 2024-12-17 21:08 | CASEMGMT ---
Care Management Face to Face with patient for initial transition planning/care coordination assessment in the ED.? This documentation writer introduced self and role at [facility]. Patient alert and oriented. Patient willing to participate in assessment and is able to answer all questions appropriately.? Care providers, pharmacy, and demographics verified. Admitting Diagnosis: Upper extremity injury Other diagnosis history: ?recent stroke, thyroid disease, diabetes, COPD PCP: ?B[facility] Specialists: Drill Press Operator, vascular, neurologist [facility] Insurance: ?[place] Prescription Benefit: yes Living Will/HPOA: ?LW and HPOA both on file LNOK: daughter Living Arrangements: patient lives in a mobile home, grandson lives with her. ?Independent with ADLS, only need assistance with cooking Transportation: family DME: ?O2 that she wears at night, 2 L? uses [employer] for supplies HHC: Outpatient [facility], 2 x per week SNF/Rehab: n/a Community Resources: n/a Behavioral Health History: depression Patient goals: Patient wishes to discharge home. Disposition Plan: admission to acute; RN CM/SW to follow for discharge planning needs that may arise. Marcia Alfredo, LACING OPERATOR, SENIOR SOFTWARE DEVELOPER
--- NOTE | 2024-12-17 21:08 | CASEMGMT ---
Care Management Face to Face with patient for initial transition planning/care coordination assessment in the ED.? This service writer advisor introduced self and role at [facility]. Patient alert and oriented. Patient willing to participate in assessment and is able to answer all questions appropriately.? Care providers, pharmacy, and demographics verified. Admitting Diagnosis: Upper extremity injury Other diagnosis history: ?recent stroke, thyroid disease, diabetes, COPD PCP: ?[facility] Specialists: School Office Assistant, vascular, neurologist [facility]erred [facility]acy: [facility] Insurance: ?[place] Prescription Benefit: yes Living Will/HPOA: ?LW and HPOA both on file LNOK: daughter Living Arrangements: patient lives in a mobile home, grandson lives with her. ?Independent with ADLS, only need assistance with cooking Transportation: family DME: ?O2 that she wears at night, 2 L? uses [employer] for supplies HHC: Outpatient [facility], 2 x per week SNF/Rehab: n/a Community Resources: n/a Behavioral Health History: depression Patient goals: Patient wishes to discharge home. Disposition Plan: admission to acute; RN CM/SW to follow for discharge planning needs that may arise. Marcia Alfredo, ENGLISH TUTOR, MARKET GARDENER
[2024-12-17 23:18] LABS: Bedside Glucose 125 mg/dL (74-106)
[2024-12-17] MEDS: 0.9% Saline Lock 10 ML Syringe IV (23:45)
[2024-12-17] MEDS: 0.9% Normal Saline (250mL Bag) 250 ML 15 ML IV (23:46)
[2024-12-17 23:50] VITALS: BP 149/90; PULSE 59; RESP 18; TEMP 36.6; O2SAT 92
[2024-12-18] MEDS: Vancomycin HCl 1,250 MG in 0.9% Normal Saline (250mL Bag) 250 ML 83 MG IV ×2 (00:13→12:19)
[2024-12-18 05:16] LABS: Absolute Lymphocyte Count 1.51 X10^3/uL (0.83-4.51); Absolute Neutrophil Count 6.4 X10^3/uL (2.0-7.7); Basophil# 0.05 X10^3/uL; Basophil% 0.6 % (0-1); Eosinophil# 0.15 X10^3/uL; Eosinophils% 1.7 % (0-5); Hematocrit 43.5 % (37-47); Hemoglobin 13.8 g/dL (12.0-15.0); Lymphocyte # 1.51 X10^3/ul (0.83-4.51); Lymphocyte % 17.3 % (19-41); Mean Corp Hgb Conc 31.7 g/dL (32-36); Mean Corpuscular Hgb 28.2 pg (27.0-32.0); Mean Platelet Vol. 10.4 fl (6.2-12.0); Monocyte# 0.66 X10^3/uL; Monocyte% 7.5 % (0-10); NRBC Flagged by Analyzer 0 % (0-5); Neutrophil # 6.35 X10^3/uL (2.7-7.7); Neutrophil % 72.6 % (47-70); Platelet Count 235 K/mm3 (150-450); RBC Distribution Width CV 14.9 % (11.6-14.6); RBC Distribution Width SD 48.4 fl (35.1-43.9); Red Blood Count 4.89 M/mm3 (4.2-5.4); White Blood Count 8.8 K/mm3 (4.4-11.0)
[2024-12-18 05:57] LABS: Hemoglobin A1c 6.6 % (<=5.6)
[2024-12-18 06:12] LABS: Anion Gap 11 (5-15); BUN 15 mg/dL (4-19); BUN/Creat Ratio 18.9 RATIO (10-20); Calcium,Total 9.6 mg/dL (7.6-11.0); Carbon Dioxide 22.2 mmol/L (21.0-32.0); Chloride 106 mmol/L (98-108); EST Glomerular Filtration Rate 78 (>60); Estimated Creatinine Clearance 73.65 ml/min (50-250); Glucose 113 mg/dL (70-99); Potassium 4.7 mmol/L (3.3-5.1); Sodium Level 139 mmol/L (133-145)
[2024-12-18 06:29] VITALS: BP 120/54; PULSE 72; RESP 18; TEMP 36.6; O2SAT 93
[2024-12-18] MEDS: Levothyroxine 88 MCG Tablet PO (06:36)
[2024-12-18 06:58] LABS: Bedside Glucose 108 mg/dL (74-106)
--- NOTE | 2024-12-18 08:20 | PN_ITS ---
Subjective Subjective Doing well. No pain in the right wrist today. Reports resolution of wrist pain since the aspiration. Objective Data Objective Data Vital Signs: Vital Signs Temp Pulse Resp BP Pulse Ox O2 Del Method 97.8 F 72 18 120/54 L 93 Room Air 12/18/24 06:29 12/18/24 06:29 12/18/24 06:29 12/18/24 06:29 12/18/24 06:29 12/18/24 06:29 Oxygen Delivery Method Room Air Weight: 200 lb 13.458 oz Body Mass Index (BMI) 31.4 Intake & Output: Intake and Output for Last 24 Hours 12/16/24 12/17/24 12/18/24 23:59 23:59 23:59 Intake Total 1040 / 1040 305 / 305 Balance 1040 / 1040 305 / 305 Lab / Micro Data 12/18/24 04:40 12/18/24 04:40 Labs: Laboratory Results - last 24 hr 12/17/24 08:42: WBC 8.2, RBC 4.92, Hgb 13.9, Hct 43.0, MCV 87.4, MCH 28.3, MCHC 32.3, RDW Std Deviation 48.6 H, RDW Coeff of Angela 15.1 H, Plt Count 227, MPV 10.2, Immature Gran % (Auto) 0.500, Neut % (Auto) 74.3 H, Lymph % (Auto) 14.9 L, [place] % (Auto) 8.6, Eos % (Auto) 1.1, Baso % (Auto) 0.6, Absolute Neuts (auto) 6.1, Absolute Lymphs (auto) 1.23, Nucleated RBC % 0, ESR 48 H, Sodium 136, Potassium 4.0, Chloride 102, Carbon Dioxide 24.6, Anion Gap 10, BUN 18, Creatinine 0.79, Estim Creat Clear Calc 75.70, Est GFR (MDRD) Non-Af 80, B UN/Creatinine Ratio 22.7 H, Glucose 146 H, Uric Acid 5.2, Calcium 9.6, C-React Prot Ext Range 32.40 H 12/17/24 16:29: POC Glucose 163 H 12/17/24 21:01: POC Glucose 125 H 12/18/24 04:40: WBC 8.8, RBC 4.89, Hgb 13.8, Hct 43.5, MCV 89.0, MCH 28.2, MCHC 31.7 L, RDW Std Deviation 48.4 H, RDW Coeff of Angela 14.9 H, Plt Count 235, MPV 10.4, Immature Gran % (Auto) 0.300, Neut % (Auto) 72.6 H, Lymph % (Auto) 17.3 L, [place]lan % (Auto) 7.5, Eos % (Auto) 1.7, Baso % (Auto) 0.6, Absolute Neuts (auto) 6.4, Absolute Lymphs (auto) 1.51, Nucleated RBC % 0, Sodium 139, Potassium 4.7, Chloride 106, Carbon Dioxide 22.2, Anion Gap 11, BUN 15, Creatinine 0.80, Estim Creat Clear Calc 73.65, Est GFR (MDRD) Non-Af 78, BUN/Creatinine Ratio 18.9, G lucose 113 H, Hemoglobin A1c 6.6 H, Calcium 9.6 12/18/24 06:35: POC Glucose 108 H Radiography Diagnostic Testing: Radiology Impression Wrist X-Ray 12/17/24 08:27 IMPRESSION: NEGATIVE WRIST Reading Location: [facility] Physical Exam Narrative Right upper Extremity Inspection: Minimal swelling in the right wrist and no overlying redness. No signs of induration or any crepitus. No signs of ascending infection Palpation: No tenderness of the right wrist. There is no pain with axial loading to the right wrist today (dramatic change in exam) Motor: Able to bend and extend all MP, PIP, and DIP joints. Sensory: Intact to light touch on the radial and ulnar borders. Vascular: Finger tips are warm and well perfused with <2 second capillary refill. Assessment & Plan Assessment/Plan (1) Acute pain of right wrist: PLAN: Plan #Right wrist pain and swelling (agree with differential of potential right wrist septic arthritis versus inflammatory arthritis) * Agree with broad-spectrum antibiotics * Follow-up wrist aspirate for diagnosis before discharge * O.K. for a diet (no planned surgical intervention today) * Elevate right upper extremity * Plastics will follow Charges/Coding Multi Select Codes Visit Charges Visit Charges: 94941 Subs Hosp L1
[2024-12-18 08:56] VITALS: BP 115/56; PULSE 57; RESP 17; TEMP 36.4; O2SAT 96
--- NOTE | 2024-12-18 09:19 | NURSING ---
This RN and patients primary RN read Dr. Jama's Progress note dated from today stated that pt was not going to have any surgical intervention. This RN okayed SHIRLEY Vasquez to feed pt and okay to give her scheduled eliquis.
--- NOTE | 2024-12-18 09:53 | CASEMGMT ---
RN CM into pt room, pt sitting up in chair with dtr at bedside. Pt dtr states pt has oxygen at home at 2L at HS through [employer]. Pt is having a walk in shower put in at her home. Pt and dtr deny any homegoing needs at this time.
[2024-12-18] MEDS: APIXABAN 5 MG TABLET PO ×2 (11:18→21:25)
[2024-12-18 12:01] LABS: Bedside Glucose 160 mg/dL (74-106)
[2024-12-18] MEDS: Insulin Lispro 100 UNIT/ML INSULN.PEN SC (12:17)
[2024-12-18] MEDS: 0.9% Saline Lock 10 ML Syringe IV (12:18)
--- NOTE | 2024-12-18 13:19 | PN_ITS ---
Subjective Subjective Patient seen and examined. She had no active complaints. Her wrist pain had improved markedly and she felt much better. Review of systems otherwise negative. She has remained hemodynamically stable. No plans for surgical intervention today as pain has improved significantly. Objective Data Objective Data Vital Signs: Vital Signs Temp Pulse Resp BP Pulse Ox O2 Del Method 97.6 F L 57 L 17 115/56 L 96 Room Air 12/18/24 08:56 12/18/24 08:56 12/18/24 08:56 12/18/24 08:56 12/18/24 08:56 12/18/24 09:01 Oxygen Delivery Method Room Air Weight: 200 lb 13.458 oz Body Mass Index (BMI) 31.4 Intake & Output: Intake and Output for Last 24 Hours 12/16/24 12/17/24 12/18/24 23:59 23:59 23:59 Intake Total 1040 / 1040 305 / 305 Balance 1040 / 1040 305 / 305 Lab / Micro Data 12/18/24 04:40 12/18/24 04:40 Labs: Laboratory Results - last 24 hr 12/17/24 16:29: POC Glucose 163 H 12/17/24 21:01: POC Glucose 125 H 12/18/24 04:40: WBC 8.8, RBC 4.89, Hgb 13.8, Hct 43.5, MCV 89.0, MCH 28.2, MCHC 31.7 L, RDW Std Deviation 48.4 H, RDW Coeff of Angela 14.9 H, Plt Count 235, MPV 10.4, Immature Gran % (Auto) 0.300, Neut % (Auto) 72.6 H, Lymph % (Auto) 17.3 L, [place] % (Auto) 7.5, Eos % (Auto) 1.7, Baso % (Auto) 0.6, Absolute Neuts (auto) 6.4, Absolute Lymphs (auto) 1.51, Nucleated RBC % 0, Sodium 139, Potassium 4.7, Chloride 106, Carbon Dioxide 22.2, Anion Gap 11, BUN 15, Creatinine 0.80, Estim Creat Clear Calc 73.65, Est GFR (MDRD) Non-Af 78, BUN/Creatinine Ratio 18.9, G lucose 113 H, Hemoglobin A1c 6.6 H, Calcium 9.6 12/18/24 06:35: POC Glucose 108 H 05/17/25 11:42: POC Glucose 160 H Physical Exam Const alert, oriented x3 and no apparent distress General Appearance: cooperative HEENT normocephalic, head/scalp atraumatic, hearing grossly normal bilaterally and moist oral mucous membranes Eyes PERRL, EOMs intact bilaterally and conjunctivae normal Neck no lymphadenopathy and supple Resp normal respiratory effort, normal air movement, no retractions, no use of accessory muscles and clear to auscultation bilaterally Cardio regular rate, regular rhythm, S1 normal heart sound, S2 normal heart sound and no murmurs GI normal to inspection, nondistended, normoactive bowel sounds, soft to palpation, non-tender and non-distended Extremity Extremity Narrative: right wrist swelling has improved markedly. Able to flex and extend wrist fully. NO differential warmth. General Extremity: no tenderness to palpation of joints or extremities Neuro oriented x3, CN's II-XII intact bilaterally, moves all extremities and no focal motor deficits Sensorium / Orientation: awake and alert Motor Exam: strength 5/5 throughout and general weakness Psych thought process normal, cooperative and affect normal Appearance: appropriate Assessment & Plan Assessment/Plan (1) Acute pain of right wrist: PLAN: Plan #Right wrist pain and swelling * Concerning for septic arthritis. * Swelling has improved markedly. * ED doctor was able to aspirate some fluid from it which will be sent for cell count and culture. * Discussed with plastic surgery wanted patient admitted due to concern for septic arthritis. * On IV vancomycin. Plastic surgery on board. Per plastic surgery to continue with antibiotics until wrist aspirate results. * P.o. Tylenol and p.o. oxycodone as needed for pain. IV morphine as needed for pain. * PT/OT consult * fall precautions * uric acid not elevated, so will hold off on adding on colchicine and steroids. * She did have some itching while getting the vancomycin yesterday. She also complained of itching of his scalp at the same time. It is unclear whether this was really due to the vancomycin. She received Benadryl but subsequently became drowsy so it is difficult to determine whether this was a true allergy. I discussed with pharmacy and the rate of vancomycin has been slowed down. Will give the vancomycin today to see if she has any itching whilst getting it. If she does then vancomycin will be noted as a true allergy. * # History of COPD: Not in exacerbation. Breathing treatments bronchodilators. #Hyperlipidemia: On statin #Type 2 diabetes mellitus: On Farxiga. Insulin sliding scale. Accu-Cheks ACHS. #Hypothyroidism: Synthroid #History of A-fib: On Eliquis DVT prophylaxis: Already on Eliquis Code status: full code * Charges/Coding Visit Charges Inpatient E&M: 71175 Subs Hosp L2
[2024-12-18 15:04] VITALS: BP 122/45; PULSE 45; RESP 18; TEMP 36.4; O2SAT 95
[2024-12-18 16:55] LABS: Bedside Glucose 107 mg/dL (74-106)
[2024-12-18 20:45] VITALS: BP 154/76; PULSE 68; RESP 18; TEMP 36.4; O2SAT 98
[2024-12-18] MEDS: Atorvastatin Calcium 40 MG Tablet PO (21:25)
[2024-12-19] MEDS: Vancomycin Trough/Random Due 1 LAB MC (00:04)
[2024-12-19 00:08] LABS: Bedside Glucose 118 mg/dL (74-106)
--- NOTE | 2024-12-19 01:12 | PCM.RX.CS ---
Consult Antibiotic Management Pharmacy has been consulted to manage selected antibiotic: Vancomycin Type of Intervention Type of Consult: Follow-up Labs Labs: Sodium 139 mmol/L (133-145) 12/18/24 04:40 Potassium 4.7 mmol/L (3.3-5.1) 12/18/24 04:40 Chloride 106 mmol/L (98-108) 12/18/24 04:40 Carbon Dioxide 22.2 mmol/L (21.0-32.0) 12/18/24 04:40 Anion Gap 11 (5-15) 12/18/24 04:40 BUN 15 mg/dL (4-19) 12/18/24 04:40 Creatinine 0.80 mg/dL (0.70-1.20) 12/18/24 04:40 Est GFR (MDRD) Non-Af 78 (>60) 12/18/24 04:40 BUN/Creatinine Ratio 18.9 RATIO (10-20) 12/18/24 04:40 Glucose 113 mg/dL (70-99) H 12/18/24 04:40 Vancomycin Trough 21.0 ug/mL (5.0-15.0) H 12/18/24 23:45 Goal Trough Goal Trough: 15-20 mcg/mL Pharmacy Plan for Drug Dosing Pharmacy Plan for Drug Dosing: Pharmacy Service will continue to monitor and adjust dosing as required. TROUGH 21 @ 11.5 HOURS. DEREASE T5O 1GM Q12H AND FOLLOW UP TROUGH PRIOR TO 4TH DOSE Follow-Up Labs Follow-Up Labs: Trough: Vancomycin Date/Time Labs Ordered Labs to be done on [date and time ordered]: 12/20 @ 1300
[2024-12-19] MEDS: Vancomycin IV 1,000 MG/200 ML BAG 200 MG IV (01:43)
[2024-12-19 02:30] VITALS: BP 146/69; PULSE 88; RESP 18; TEMP 36.5; O2SAT 97
[2024-12-19] MEDS: Levothyroxine 88 MCG Tablet PO (05:02)
[2024-12-19 05:34] LABS: Absolute Lymphocyte Count 1.33 X10^3/uL (0.83-4.51); Absolute Neutrophil Count 6.9 X10^3/uL (2.0-7.7); Basophil# 0.05 X10^3/uL; Basophil% 0.5 % (0-1); Eosinophil# 0.17 X10^3/uL; Eosinophils% 1.9 % (0-5); Hematocrit 46.1 % (37-47); Hemoglobin 14.6 g/dL (12.0-15.0); Lymphocyte # 1.33 X10^3/ul (0.83-4.51); Lymphocyte % 14.6 % (19-41); Mean Corp Hgb Conc 31.7 g/dL (32-36); Mean Corpuscular Hgb 28.4 pg (27.0-32.0); Mean Corpuscular Volume 89.7 fL (81-99); Mean Platelet Vol. 10.2 fl (6.2-12.0); Monocyte# 0.69 X10^3/uL; Monocyte% 7.5 % (0-10); NRBC Flagged by Analyzer 0 % (0-5); Neutrophil # 6.88 X10^3/uL (2.7-7.7); Neutrophil % 75.3 % (47-70); Platelet Count 237 K/mm3 (150-450); RBC Distribution Width CV 14.9 % (11.6-14.6); RBC Distribution Width SD 49.9 fl (35.1-43.9); Red Blood Count 5.14 M/mm3 (4.2-5.4); White Blood Count 9.1 K/mm3 (4.4-11.0)
[2024-12-19 06:14] LABS: Anion Gap 11 (5-15); BUN 15 mg/dL (4-19); BUN/Creat Ratio 21.1 RATIO (10-20); Calcium,Total 9.6 mg/dL (7.6-11.0); Carbon Dioxide 23.1 mmol/L (21.0-32.0); Chloride 105 mmol/L (98-108); Creatinine, Serum 0.72 mg/dL (0.70-1.20); EST Glomerular Filtration Rate 89 (>60); Estimated Creatinine Clearance 73.65 ml/min (50-250); Glucose 116 mg/dL (70-99); Potassium 4.2 mmol/L (3.3-5.1); Sodium Level 139 mmol/L (133-145)
[2024-12-19 07:58] VITALS: BP 128/92; PULSE 72; RESP 16; TEMP 36.3; O2SAT 94
[2024-12-19] MEDS: APIXABAN 5 MG TABLET PO (08:05)
--- NOTE | 2024-12-19 11:34 | PN.SURG_ITS ---
Subjective Subjective Doing well. No wrist pain No gram stain back yet but NGTD on cultures Objective Data Objective Data Vital Signs: Vital Signs Temp Pulse Resp BP Pulse Ox O2 Del Method 97.4 F L 72 16 128/92 H 94 Room Air 12/19/24 07:58 12/19/24 07:58 12/19/24 07:58 12/19/24 07:58 12/19/24 07:58 12/19/24 07:58 Oxygen Delivery Method Room Air Weight: 200 lb 13.458 oz Body Mass Index (BMI) 31.4 Intake & Output: Intake and Output for Last 24 Hours 12/17/24 12/18/24 12/19/24 23:59 23:59 23:59 Intake Total 1040 / 1040 809 / 1109 700 / 700 Balance 1040 / 1040 809 / 1109 700 / 700 Lab / Micro Data 12/19/24 04:32 12/19/24 04:32 Labs: Laboratory Results - last 24 hr 12/18/24 11:42: POC Glucose 160 H 12/18/24 16:37: POC Glucose 107 H 12/18/24 23:45: Vancomycin Trough 21.0 H 12/18/24 23:51: POC Glucose 118 H 12/19/24 04:32: WBC 9.1, RBC 5.14, Hgb 14.6, Hct 46.1, MCV 89.7, MCH 28.4, MCHC 31.7 L, RDW Std Deviation 49.9 H, RDW Coeff of Angela 14.9 H, Plt Count 237, MPV 10.2, Immature Gran % (Auto) 0.200, Neut % (Auto) 75.3 H, Lymph % (Auto) 14.6 L, [place] % (Auto) 7.5, Eos % (Auto) 1.9, Baso % (Auto) 0.5, Absolute Neuts (auto) 6.9, Absolute Lymphs (auto) 1.33, Nucleated RBC % 0, Sodium 139, Potassium 4.2, Chloride 105, Carbon Dioxide 23.1, Anion Gap 11, BUN 15, Creatinine 0.72, Estim Creat Clear Calc 73.65, Est GFR (MDRD) Non-Af 89, BUN/Creatinine Ratio 21.1 H, G lucose 116 H, Calcium 9.6 Micro: Microbiology 12/17/24 10:15 Fluid - Synovial (joint) Body Fluid Culture - Preliminary No growth-Final to follow Physical Exam Narrative Right upper Extremity Inspection: Minimal swelling in the right wrist and no overlying redness. No signs of induration or any crepitus. No signs of ascending infection Palpation: No tenderness of the right wrist. There is no pain with axial loading to the right wrist Motor: Able to bend and extend all MP, PIP, and DIP joints. Sensory: Intact to light touch on the radial and ulnar borders. Vascular: Finger tips are warm and well perfused with <2 second capillary refill. Assessment & Plan Assessment/Plan (1) Acute pain of right wrist: PLAN: Plan #Right wrist pain and swelling (agree with differential of potential right wrist septic arthritis versus inflammatory arthritis) * Agree with transition to PO antibiotics * Follow-up wrist aspirate * O.K. for a diet (no planned surgical intervention today) * Elevate right upper extremity * Plastics will see in clinic as OP Charges/Coding Visit Charges Inpatient E&M: 81981 Subs Hosp L1
[2024-12-19] MEDS: 0.9% Saline Lock 10 ML Syringe IV (12:05)
[2024-12-19] MEDS: Vancomycin IV 1,000 MG/200 ML BAG 83 MG IV (12:05)
[2024-12-19 12:20] LABS: Bedside Glucose 108 mg/dL (74-106)
--- NOTE | 2024-12-19 13:16 | DS.PCM_ITS ---
Providers Date of Admission: 12/17/24 Date of Discharge: 12/19/24 Primary Care Physician: Dr. Alejandro Rosales MD Consultations 12/17/24 12:07 Consult: Plastic Surgery Routine Consulting Provider: Kevan Jama Reason for Consult: right wrist swelling, concerning for septic arthritis EMERGENT Consult: No MD Notified: Yes Date Notified: 12/17/24 Time Notified: 11:16 Method of Notification: ED Physician Initiated Reason For Visit: RIGHT WRIST PAIN AND SWELLING Diagnosis Discharge Diagnosis (1) Acute pain of right wrist: Status: Acute Code(s): M25.531 - Pain in right wrist Plan #Right wrist pain and swelling * Concerning for septic arthritis. * Swelling has improved markedly. * ED doctor was able to aspirate some fluid from it which will be sent for cell count and culture. * Discussed with plastic surgery wanted patient admitted due to concern for septic arthritis. * On IV vancomycin. Plastic surgery on board. Per plastic surgery to continue with antibiotics until wrist aspirate results. * P.o. Tylenol and p.o. oxycodone as needed for pain. IV morphine as needed for pain. * PT/OT consult * fall precautions * uric acid not elevated, so will hold off on adding on colchicine and steroids. * She did have some itching while getting the vancomycin yesterday. She also complained of itching of his scalp at the same time. It is unclear whether this was really due to the vancomycin. She received Benadryl but subsequently became drowsy so it is difficult to determine whether this was a true allergy. I discussed with pharmacy and the rate of vancomycin has been slowed down. Will give the vancomycin today to see if she has any itching whilst getting it. If she does then vancomycin will be noted as a true allergy. * # History of COPD: Not in exacerbation. Breathing treatments bronchodilators. #Hyperlipidemia: On statin #Type 2 diabetes mellitus: On Farxiga. Insulin sliding scale. Accu-Cheks ACHS. #Hypothyroidism: Synthroid #History of A-fib: On Eliquis DVT prophylaxis: Already on Eliquis Code status: full code * Medications at Discharge Home Medications acetaminophen 325 mg tablet 650 mg (2 x 325 mg) PO TID PRN fever/pain #1 TAB 11/25/24 albuterol sulfate 90 mcg/actuation aerosol inhaler 2 puff inhalation Q4H PRN Wheezing #1 g 11/25/24 dapagliflozin propanediol 10 mg tablet (Farxiga) 10 mg PO DAILY dm #30 tabs 11/25/24 fluticasone fur. 200 mcg-umeclid 62.5 mcg-vilant 25 mcg inhalat.powder (Trelegy Ellipta) 1 inh inhalation DAILY sob #1 inh 11/25/24 fluticasone propionate 50 mcg/actuation nasal spray,suspension 2 spray intranasal DAILY congestion #1 inh 11/25/24 levothyroxine 88 mcg tablet (Euthyrox) 88 mcg PO DAILY THYROID #30 tabs 11/25/24 apixaban 5 mg tablet (Eliquis) 5 mg PO BID blood thinner #60 tabs 12/07/24 atorvastatin 40 mg tablet 40 mg PO QHS cholesterol #30 tabs 12/07/24 cefdinir 300 mg capsule 300 mg PO BID #10 caps 12/19/24 doxycycline hyclate 100 mg tablet 100 mg PO BID #10 tabs 12/19/24 Hospital Course Operations None Procedures None Summary of Care Provided Minutes Spent on Discharge: 45 Hospital Course: YAMILE RODRIGUEZ, is a 74 F with a PMH as outlined who presents via the ED on 12/17/2024 with a complaint of right wrist pain. The pain started the day before admission. The pain was worse with movement of the right wrist. She could not flex or extend her wrist. She rated the pain at 10 out of 10. She denied any trauma to the arm or the wrist. She denied any fever or chills, nausea vomiting or any other symptoms. She denies any history of gout. Review of systems otherwise negative. Vitals i the ED were BP of 129/66, TX of 82, RR of 14 and temp of 97.4F. She was saturating at 98% on room air. CBC showed wbc of 8.2, hb of 13.9 and platelets of 227. ESR was 48. Chemistry showed sodium of 136, potassium of 4 and bicarb of 24.6. Cr was 0.79. CRP was elevated at 32.40. Right wrist x-ray was negative for any acute pathology. She has been admitted to be evaluated for right wrist cellulitis with concern for septic arthritis. She did have right wrist aspiration done in the ED by ED doctor. She was admitted and managed to rule out right wrist septic arthritis. She was started on IV vancomycin. The fluid aspirate preliminary culture was negative. Gram stain and anerobic cultures were pending. The pain completely resolved and she felt much better. She remained stable and she was discharged on 12/19/2024 on PO doxycycline and PO cefdinir x 5 days. She is to follow up with her PCP and plastic surgery within 1-2 weeks. Patient seen and examined prior to discharge. She had no active complaints and felt well. She was eager to be discharged home. Review of systems is otherwise negative. Labs and vitals reviewed. Home meds reviewed and reconciled. Physical Exam Const alert, oriented x3 and no apparent distress General Appearance: cooperative Exam Limitations: no limitations HEENT normocephalic, head/scalp atraumatic, hearing grossly normal bilaterally, moist oral mucous membranes and oropharynx normal Mouth: oral and palatal mucosa normal Eyes PERRL, EOMs intact bilaterally and conjunctivae normal Neck no lymphadenopathy and supple Resp normal respiratory effort, normal air movement, no retractions, no use of accessory muscles and clear to auscultation bilaterally Cardio regular rate, regular rhythm, S1 normal heart sound, S2 normal heart sound and no murmurs GI normal to inspection, nondistended, normoactive bowel sounds, soft to palpation, non-tender and non-distended Extremity Extremity Narrative: right wrist swelling has resolved. General Extremity: no tenderness to palpation of joints or extremities Skin no rashes or lesions noted Neuro oriented x3, CN's II-XII intact bilaterally, moves all extremities and no focal motor deficits Sensorium / Orientation: awake and alert Motor Exam: strength 5/5 throughout and general weakness Psych thought process normal, cooperative and affect normal Appearance: appropriate Weight / BMI Weight Weight: 200 lb 13.458 oz Body Mass Index (BMI) 31.4 ABG / Lab / Microbiology Data 12/19/24 04:32 12/19/24 04:32 Laboratory: Laboratory Results - last 24 hr 12/18/24 16:37: POC Glucose 107 H 12/18/24 23:45: Vancomycin Trough 21.0 H 12/18/24 23:51: POC Glucose 118 H 12/19/24 04:32: WBC 9.1, RBC 5.14, Hgb 14.6, Hct 46.1, MCV 89.7, MCH 28.4, MCHC 31.7 L, RDW Std Deviation 49.9 H, RDW Coeff of Angela 14.9 H, Plt Count 237, MPV 10.2, Immature Gran % (Auto) 0.200, Neut % (Auto) 75.3 H, Lymph % (Auto) 14.6 L, [place] % (Auto) 7.5, Eos % (Auto) 1.9, Baso % (Auto) 0.5, Absolute Neuts (auto) 6.9, Absolute Lymphs (auto) 1.33, Nucleated RBC % 0, Sodium 139, Potassium 4.2, Chloride 105, Carbon Dioxide 23.1, Anion Gap 11, BUN 15, Creatinine 0.72, Estim Creat Clear Calc 73.65, Est GFR (MDRD) Non-Af 89, BUN/Creatinine Ratio 21.1 H, G lucose 116 H, Calcium 9.6 12/19/24 12:02: POC Glucose 108 H Microbiology: Microbiology 12/17/24 10:15 Fluid - Synovial (joint) Body Fluid Culture - Preliminary No growth-Final to follow D/C Instructions Discharge Diet: Low fat / Low cholesterol Discharge Activity: Return to Normal Activity Weight Bearing Status: Weight bearing as tolerated Call your doctor if you observe: Fever of 101 or Higher, Shortness of breath, Dizziness, Swelling in the ankles and Chest pain DC O2, CPAP, BIPAP Needs Home O2 Discharge instructions: No Meaningful Use Info Meaningful Use Meaningful Use Diagnoses (Choose all that apply): None applicable Ischemic Stroke Statin Dosing Therapy Reference: STATIN DOSE THERAPY REFERENCE: * Patients > 75 years receive moderate or high dose statin therapy. * Patients 75 years or YOUNGER should receive HIGH intensity statin dose unless contraindicated. You will be required to document reason for non-treatment if statin daily dose does not meet guidelines. HIGH DOSE STATIN THERAPY DAILY Atorvastatin > than or = to 40 mg Rosuvastatin > than or = to 20 mg Amlodipine + Atorvastatin > than or = to 2.5/40 mg Ezetimibe + Simvastatin 10/80 mg Simvastatin 80mg Discharge Plan Admission Admit Date/Time: 12/17/24 11:07 Primary Reason for Your Visit: arthritis of left wrist Attending Provider: Shayla Castro Primary Care Provider: Alejandro Rosales Consulting Providers: Kevan Jama Instructions Patient Instructions: ED Osteoarthritis Discharge Orders/Prescriptions Prescriptions: New cefdinir 300 mg capsule 300 mg PO BID Qty: 10 0RF doxycycline hyclate 100 mg tablet 100 mg PO BID Qty: 10 0RF Continued atorvastatin 40 mg tablet 40 mg PO QHS Qty: 30 3RF Eliquis 5 mg tablet 5 mg PO BID Qty: 60 3RF acetaminophen 325 mg Tablet 650 mg PO TID PRN (Reason: fever/pain) Qty: 1 0RF albuterol sulfate 90 mcg/actuation Hfa Aerosol Inhaler 2 puff inhalation Q4H PRN (Reason: Wheezing) Qty: 1 0RF Rx Instructions: 2 puffs every 4 hours as needed for wheezing/shortness of breath levothyroxine [Euthyrox] 88 mcg Tablet 88 mcg PO DAILY Qty: 30 0RF Rx Instructions: Take this on an empty stomach and then do not eat or drink for 30 minutes. fluticasone propionate 50 mcg/actuation spray,suspension 2 spray INTRANASAL DAILY Qty: 1 0RF dapagliflozin propanediol [Farxiga] 10 mg tablet 10 mg PO DAILY Qty: 30 0RF Trelegy Ellipta 200-62.5-25 mcg blister with device 1 inh inhalation DAILY Qty: 1 0RF Patient Comments: PT USES NEEDED Referrals / Follow Up: Alejandro Rosales MD [Primary Care Provider] - Within 1 Week Kevan Jama MD [Med Staff - Active Staff] - Within 1 Week Disposition Disposition (needs filled in before D/C Order can be placed): Home, Self Care Charges/Coding Visit Charges Inpatient E&M: 27351 Disch Hosp >30min
[2024-12-19 13:27] VITALS: BP 122/47; PULSE 75; RESP 16; TEMP 36.3; O2SAT 94
== END 2024-12-19 14:27 | disposition home or self-care (01) ==
LOC: ED 11:37 → MS3 12-19 13:15
PROVIDERS: Anesthesiology; Admitting Provider Student in an Organized Health Care Education/Training Program; Emergency Provider Emergency Medicine; PCP Family Medicine; Visit Provider Student in an Organized Health Care Education/Training Program
DX: M25.531 Pain in right wrist (principal); I50.42 Chronic combined systolic (congestive) and diastolic (congestive) heart failure; I11.0 Hypertensive heart disease with heart failure; J44.9 Chronic obstructive pulmonary disease, unspecified; I48.0 Paroxysmal atrial fibrillation; E11.51 Type 2 diabetes mellitus with diabetic peripheral angiopathy without gangrene; E03.9 Hypothyroidism, unspecified; I70.213 Atherosclerosis of native arteries of extremities with intermittent claudication, bilateral legs; I65.23 Occlusion and stenosis of bilateral carotid arteries; E78.5 Hyperlipidemia, unspecified; Z79.890 Hormone replacement therapy; Z79.84 Long term (current) use of oral hypoglycemic drugs; Z87.891 Personal history of nicotine dependence; Z79.51 Long term (current) use of inhaled steroids; Z79.01 Long term (current) use of anticoagulants; Z85.038 Personal history of other malignant neoplasm of large intestine; Z86.73 Personal history of transient ischemic attack (TIA), and cerebral infarction without residual deficits; Z79.899 Other long term (current) drug therapy; R94.31 Abnormal electrocardiogram [ECG] [EKG]; M25.431 Effusion, right wrist
CPT/HCPCS: 20605; 36415; 73110; 80048; 80202; 82962; 83036; 84550; 85025; 85652; 86140; 87070; 87075; 87205; 93005; 93880; 93922; 96365; 96366; 96368; 96375; 96376; 99221; 99284; A4216; G0378

== ENCOUNTER → 2025-01-19 | Outpatient (CLI) | payer MEDICARE, OTHER, SELFPAY | END | disposition home or self-care (01) | LOC: PSN 12:58 | PROVIDERS: PCP Family Medicine; Referring Provider Nurse Practitioner Family; Visit Provider Nurse Practitioner Family | DX: R06.02 Shortness of breath (principal) | CPT/HCPCS: 94060; 94726 ==

== ENCOUNTER → 2025-01-20 | Outpatient (CLI) | payer MEDICARE, OTHER, SELFPAY ==
--- OUTSIDE RECORDS SUMMARY | 2025-01-20 20:30 | XMS RPT_ITS | CCD ---
Author Organization [facility] Care Team Providers Care Post Framer Name Role Phone Dr. Alejandro Rosales Primary Care Provider [phone] Dr. Alejandro Rosales Referring Provider [phone] Dr. Michelle Paige Attending Provider Dr. Marc Robbins Attending Provider Dr. Alejandro Rosales Primary Care Provider [phone] Alejandro Rosales Referring Provider [phone] Dr. Marc Robbins Attending Provider Dr. Alejandro Rosales Primary Care Provider [phone] Alejandro Rosales Referring Provider [phone] Dr. Marc Robbins Attending Provider Dr. Michelle Paige Attending Provider Alejandro Rosales MD Primary Care Provider [phone] Alejandro Rosales MD Primary Care Provider Dr. Alejandro Rosales MD Attending Provider [phone] Alejandro Rosales MD Referring Provider [phone] Kevan Jama MD Attending Provider Dr. Phillip Maldonado DO Emergency Provider PROVIDER, UNKNOWN Attending Unavailable PROVIDER, UNKNOWN Admitting Unavailable Bobby HERNÁNDEZ, Alejandro Eng Primary Care Provider SAMEERA PEREZ Attending Unavailable SAMEERA PEREZ Admitting Unavailable CONSULT, SURGERY - NEURO Consulting Unavail able SYSTEM, PROVIDER NOT IN Referring Unavaila ble Dr. Phillip Maldonado DO Attending Provider Kris HERNÁNDEZ, Dr. Rg Coronado Admit Provider Kris HERNÁNDEZ, Dr. Rg Coronado Referring Provider Kris HERNÁNDEZ, Dr. Rg Coronado Other Provider Sementi DO, Dr. Ada Irving Attending Provide r Sementi DO, Dr. Ada Irving Other Provider Sementi DO, Dr. Ada Irving Referring Provide r Cynthia CONDITIONER TUMBLER-CLatoya Attending Provider Grecia HERNÁNDEZ, Dr. Martinez Attending Provider Itzel HERNÁNDEZ, Dr. Tran Attending Provider Juany HERNÁNDEZ, Dr. Jamey Eng Attending Provider Juany HERNÁNDEZ, Dr. Jamey Eng Referring Provider Marlena LEONARD, Dr. Beckwith Emergency Provider [phone] Gloria HERNÁNDEZ, Dr. Shayla Viramontes Admit Provider Gloria HERNÁNDEZ, Dr. Shayla Viramontes Attending Provider Evita HERNÁNDEZ, Dr. Mathur Other Provider Gloria HERNÁNDEZ, Dr. Shayla Viramontes Other Provider Rosales, Alejandro Primary Care Unavailable Rosales, Alejandro Referring Unavailable Rosales, Alejandro Attending Unavailable Rosales, Alejandro Primary Care Unavailable Rosales, Alejandro Referring Unavailable Rosales, Alejandro Attending Unavailable Rosales, Alejandro Primary Care Unavailable Pablo Guzman Attending Unavailable Phillip Maldonado Attending Unavailable Rosales, Alejandro Primary Care Unavailable Jamey Harrington Referring Unavailable Jamey Harrington Attending Unavailable Rosales, Alejandro Primary Care Unavailable Kris, Rg Chi Consulting Unavailable Kris, Rg Chi Admitting Unavailable Kris, Rg Chi Referring Unavailable SemenAda quinones Attending Unavaila ble Rosales, Alejandro Primary Care Unavailable SemenAda quinones Consulting Unavaila ble Rosales, Alejandro Primary Care Unavailable Bakari Miller Attending Unavailable Rosales, Alejandro Referring Unavailable Rosales, Alejandro Primary Care Unavailable Kevan Jama Consulting Unavailable Shayla Castro Admitting Unavailable Koram, Shayla Ana M Attending Unavailable Junam, Shayla Ana M Consulting Unavailable SemenAda quinones Attending Unavaila ble Kris, Rg Chi Admitting Unavailable Kris, Rg Chi Referring Unavailable Kris, Rg Chi Consulting Unavailable Rosales, Alejandro Primary Care Unavailable Jamey Harrington Referring Unavailable Rosales, Alejandro Primary Care Unavailable Jamey Harrington Attending Unavailable Rosales, Alejandro Primary Care Unavailable Anu Hernandes Attending Unavailable Anu Hernandes Referring Unavailable Rosales, Alejandro Primary Care Unavailable Anu Hernandes Attending Unavailable Anu Hernandes Referring Unavailable Rosales, Alejandro Primary Care Unavailable Anu Hernandes Attending Unavailable Anu Hernandes Referring Unavailable Rosales, Alejandro Primary Care Unavailable Kevan Jama Attending Unavailable Rosales, Alejandro Referring Unavailable Rosales, Alejandro Primary Care Unavailable Kevan Jama Attending Unavailable Rosales, Alejandro Referring Unavailable Rosales, Alejandro Primary Care Unavailable Rosales, Alejandro Referring Unavailable Rosales, Alejandro Attending Unavailable Rosales, Alejandro Primary Care Unavailable Rosales, Alejandro Referring Unavailable Rosales, Alejandro Attending Unavailable Kevan Jama Attending Unavailable Tang Menidola Referring Unavailable Rosales, Alejandro Primary Care Unavailable Anu Hernandes Attending Unavailable Rosales, Alejandro Referring Unavailable Marc Robbins Attending Unavailable Rosales, Alejandro Primary Care Unavailable Rosales, Alejandro Referring Unavailable Sementi, Allison Referring Unavaila ble Sementi, Ada Irving Attending Unavaila ble Rosales, Alejandro Primary Care Unavailable Rosales, Alejandro Primary Care Unavailable Rosales, Alejandro Attending Unavailable Rosales, Alejandro Referring Unavailable Koram, Shayla Ana M Admitting Unavailable Kevan Jama Consulting Unavailable Rosales, Alejandro Primary Care Unavailable Junam, Shayla Ana M Attending Unavailable Semenstacie, Allison Referring Unavaila Latoya Carreon Attending Unavailable Rosales, Alejandro Primary Care Unavailable Sementi, Allison Referring Unavaila ble Sementi, Ada Irving Attending Unavaila ble Rosales, Alejandro Primary Care Unavailable Michelle Paige Attending Unavailable Rosales, Alejandro Primary Care Unavailable Rosales, Alejandro Referring Unavailable Rosales, Alejandro Primary Care Unavailable Kevan Jama Attending Unavailable Rosales, Alejandro Referring Unavailable Rosales, Alejandro Primary Care Unavailable Rosales, Alejandro Referring Unavailable Rosales, Alejandro Attending Unavailable Allergies Allergy Classification Reported Allergen(s) Allergy Type Date of Onset Reaction(s) Facility (15 sources) Codeine Drug Allergy 01-12-2019 Anaphylaxis [facility] (1 source) Codeine Drug Allergy 12-24-2024 [facility] Repository Medications Current Medications Medication Drug Class(es) Dates Sig (Normalized) Sig (Original) acetaminophen 325 mg oral tablet (4 sources) Start: 11-25-2024 take 2 tablets by mouth three times daily as needed for pain Acetaminophen 325 mg Tablet Active 650 mg PO THREE TIMES A DAY as needed for fever/pain November 25, 2024 12:00am Start: 11-08-2024 End: 11-11-2024 take 1 tablet by mouth every four hours as needed Acetaminophen (TYLENOL) tablet 325 mg [id number] 200 actuat albuterol 0.09 mg/actuat metered dose inhaler (20 sources) beta2-Adrenergic Agonist Start: 11-25-2024 take 2 puff(s) by inhalation every four hours as needed for wheezing Albuterol Sulfate 90 mcg/actuation Hfa Aerosol Inhaler Active 2 NMA INHALATION Q4H as needed for Wheezing November 25, 2024 12:00am 2 puffs every 4 hours as needed for wheezing/shortness of breath Start: 11-08-2024 End: 11-11-2024 take 2 puff(s) by inhalation every six hours as needed for wheezing 2 puff, Inhalation, EVERY 6 HOURS NEEDED, Starting on 11/08/24 at 2017, Until Urmila 11/11/24 at 1658, Shortness of Breath, Wheezing, Wait at least one(1) full minute between inhalations Start: 09-14-2021 take 1 puff(s) by in halation every four hours Albuterol Sulfate (Proventil Hfa) 90 mcg/actuation HFA aerosol inhaler Active 2 PUFF INHALATION Q4H September 14, 2021 3:41pm Start: 09-14-2021 End: 11-11-2024 Albuterol Sulfate (Proventil Hfa) 90 mcg/actuation HFA aerosol inhaler Discontinued 2 NMA INHALATION Q4H as needed for shortness of breath or wheezing September 14, 2021 1:00am November 11, 2024 5:58pm Start: 09-14-2021 take 1 puff(s) by in halation every four hours Albuterol Sulfate (Proventil Hfa) 90 mcg/actuation HFA aerosol inhaler Active 2 PUFF INHALATION Q4H September 14, 2021 1:00am take 2 puff(s) by in halation every four hours as needed Albuterol (Proventil HFA) 108 (90 Base) MCG/ACT Aero Soln inhaler Inhale 2 puffs every 4 hours as needed for Shortness of Breath. Active Albuterol Sulfate (Proventil Hfa) 90 mcg/actuation HFA aerosol inhaler (14 sources) Start: 12-09-2018 take 1 puff(s) by inhalation every four hours Albuterol Sulfate (Proventil Hfa) 90 mcg/actuation HFA aerosol inhaler Active 2 PUFF INHALATION Q4H December 09, 2018 9:30am Start: 12-09-2018 End: 11-25-2024 Albuterol Sulfate (Proventil Hfa) 90 mcg/actuation HFA aerosol inhaler Discontinued 2 NMA INHALATION Q4H as needed for Wheezing December 09, 2018 12:00am November 25, 2024 11:16am Start: 12-09-2018 Albuterol Sulf ate (Proventil Hfa) 90 mcg/actuation HFA aerosol inhaler Active 2 NMA INHALATION Q4H as needed for Wheezing December 09, 2018 12:00am Start: 12-09-2018 take 1 puff(s) by in halation every four hours Albuterol Sulfate (Proventil Hfa) 90 mcg/actuation HFA aerosol inhaler Active 2 PUFF INHALATION Q4H December 08, 2018 11:00pm Start: 12-09-2018 take 1 puff(s) by in halation every four hours Albuterol Sulfate (Proventil Hfa) 90 mcg/actuation HFA aerosol inhaler Active 2 PUFF INHALATION Q4H December 09, 2018 12:00am B-Complex With Vitamin C (9 sources) Start: 09-14-2021 take 1 capsule by mouth once daily B-Complex With Vitamin C Active 1 CAP PO DAILY September 14, 2021 3:39pm Start: 09-14-2021 take 1 capsule by mo uth once daily B-Complex With Vitamin C Active 1 CAP PO DAILY September 14, 2021 12:00am Start: 09-14-2021 take 1 capsule by mo uth once daily B-Complex With Vitamin C Active 1 CAP PO DAILY September 14, 2021 1:00am cefdinir 300 mg oral capsule (1 source) Cephalosporin Antibacterial Start: 12-19-2024 take 1 capsule by mouth twice daily Cefdinir 300 mg capsule Active 300 mg PO TWICE A DAY December 19, 2024 12:00am colchicine 0.6 mg oral tablet (5 sources) Start: 09-30-2024 Colchicine 0.6 mg capsule Active mg PO September 30, 2024 1:00am Start: 09-30-2024 End: 12-17-2024 take 1 capsule by mouth twice daily as needed Colchicine 0.6 mg capsule Discontinued 0.6 mg PO TWICE DAILY NEEDED September 30, 2024 1:00am December 17, 2024 10:52am Colchicine 0.6 M G tablet Take by mouth. Take 2 tablets as soon as possible with gout flare. Then take 1 tablet one hour later as directed. Active dapagliflozin 10 mg oral tablet (14 sources) Sodium-Glucose Cotransporter 2 Inhibitor Start: 04-15-2022 End: 11-25-2024 take 1 tablet by mouth once daily Dapagliflozin Propanediol (Farxiga) 10 mg tablet Active 10 mg PO DAILY November 25, 2024 11:25am doxycycline hyclate 100 mg oral tablet (9 sources) Tetracycline-class Drug Start: 12-19-2024 take 1 tablet by mouth twice daily Doxycycline Hyclate 100 mg tablet Active 100 mg PO TWICE A DAY December 19, 2024 12:00am Start: 09-30-2024 End: 11-11-2024 take 1 tablet by mouth twice daily Doxycycline Hyclate 100 mg tablet Discontinued 100 mg PO TWICE A DAY September 30, 2024 1:00am November 11, 2024 5:57pm Start: 09-21-2024 End: 09-26-2024 take 1 capsule by mouth twice daily Doxycycline Hyclate 100 mg capsule Discontinued 100 mg PO TWICE A DAY 05 08September 21, 2024 1:00am September 25, 2024 1:00am September 26, 2024 1:13am fluticasone propionate 0.05 mg/actuat metered dose nasal spray (20 sources) Corticosteroid Start: 11-11-2024 End: 11-25-2024 Fluticasone Propionate 50 mcg/actuation spray,suspension Active 2 NMA INTRANASAL DAILY November 25, 2024 11:25am Start: 11-09-2024 End: 11-11-2024 take 2 spray(s) nasal route once daily 2 spray, Nasal, DAILY, First dose on Fri11/09/24 at 1100, Until Discontinued, Dose is for each nostril. Start: 09-14-2021 take 1 spray(s) nasa l route twice daily Fluticasone Propionate (Flonase Allergy Relief) 50 mcg/actuation spray,suspension Active 2 SPRAY INTRANASAL TWICE A DAY September 14, 2021 1:00am administer into each nostril Start: 12-09-2018 End: 12-09-2018 Fluticasone Propionate (Flon ase Allergy Relief) 50 mcg/actuation spray,suspension Discontinued 1 NMA INTRANASAL DAILY December 09, 2018 12:00am December 09, 2018 1:30pm Start: 12-09-2018 End: 12-09-2018 Fluticasone Propionate (Flon ase Allergy Relief) 50 mcg/actuation spray,suspension Discontinued 1 SPRAY INTRANASAL DAILY December 09, 2018 12:00am December 09, 2018 1:30pm take 1 spray(s) nasa l route once daily fluticasone (FLONASE ALLERGY RELIEF) 50 mcg/actuation nasal spray Use 1 [place] in each nostril once daily. Active Wduabhuwldx-Whkcmjapw-Nnvrpe (Trelegy Ellipta) 200-62.5-25 MCG/ACT Aerosol Powder, breath activated (1 source) Fluticasone-Umec lidin-Vilant (Trelegy Ellipta) 200-62.5-25 MCG/ACT Aerosol Powder, breath activated Inhale 1 Inhalation daily. Active Pagtxgmxyqy-Rkmeyypce-Xewoxn er (6 sources) Start: 11-26-19 Fktslrdofax-Ckgdlcfmb-Iqxbmx er (Trelegy Ellipta) 200-62.5-25 mcg blister with device Active 1 NMA INHALATION DAILY November 25, 2024 11:25am Start: 11-11-2024 End: 11-25-2024 Qnifbvorjmg-Lbcpxlpay-Lvpfhk er (Trelegy Ellipta) 200-62.5-25 mcg blister with device Discontinued 1 NMA INHALATION DAILY November 11, 2024 12:00am November 25, 2024 11:25am 120 actuat formoterol fumarate 0.005 mg/actuat / mometasone furoate 0.2 mg/actuat metered dose inhaler (20 sources) Corticosteroid, beta2-Adrenergic Agonist Start: 09-14-2021 take 1 puff(s) by inhalation twice daily Mometasone-Formoterol (Dulera) 200-5 mcg/actuation HFA aerosol inhaler Active 2 PUFF INHALATION TWICE A DAY September 14, 2021 1:00am Start: 12-09-2018 End: 07-24-2021 Mometasone-Formoterol (Duler a) 200-5 mcg/actuation HFA aerosol inhaler Discontinued 2 NMA INHALATION TWICE A DAY December 09, 2018 12:00am July 24, 2021 10:23am Start: 12-09-2018 End: 07-24-2021 take 1 puff(s) by inhalation twice daily Mometasone-Formoterol (Dulera) 200-5 mcg/actuation HFA aerosol inhaler Discontinued 2 PUFF INHALATION TWICE A DAY December 09, 2018 12:00am July 24, 2021 10:23am take 2 puff(s) by in halation twice daily mometasone-formoterol (DULERA) 200-5 mcg/actuation inhaler Inhale 2 Puffs as instructed twice daily. Active iron carbonyl 15 mg chewable tablet (9 sources) Start: 09-14-2021 take 1 tablet by mouth once daily Iron, Carbonyl (Iron Chews) 15 mg tablet,chewable Active 15 MG PO DAILY September 14, 2021 1:00am levothyroxine sodium 0.088 mg oral tablet (20 sources) l-Thyrox ine Start: 08-15-2021 End: 11-25-2024 Levothyroxine (Euthyrox) 88 mcg Tablet Active 88 ug PO DAILY November 25, 2024 11:25am Take this on an empty stomach and then do not eat or drink for 30 minutes. Start: 12-09-2018 End: 07-24-2021 take 1 tablet by mouth once daily Levothyroxine 75 mcg tablet Discontinued 75 ug PO DAILY December 09, 2018 12:00am July 24, 2021 10:22am take 1 capsule by [facility] once daily Levothyroxine 75 mcg cap Take 75 mcg by mouth once daily. Active magnesium oxide 400 mg oral tablet (9 sources) Start: 09-05-2021 Magnesium Oxid e Active EACH PO September 05, 2021 1:00am melatonin 3 mg oral capsule (9 sources) Start: 09-14-2021 take 3 mg by mouth at bedtime Melatonin Active 3 MG PO BEDTIME September 14, 2021 1:00am oxyCODONE hydrochloride 5 mg oral capsule (5 sources) Opioid Agonist Start: 04-15-2022 take 5 mg by mouth twice daily Oxycodone Active 5 MG PO TWICE A DAY April 15, 2022 12:00am Completed/Discontinued Medications Medication Drug Class(es) Dates Sig (Normalized) Sig (Original) apixaban 5 mg oral tablet (11 sources) Factor Xa Inhibitor Start: 11-11-2024 End: 12-07-2024 take 1 tablet by mouth twice daily Apixaban (Eliquis) 5 mg tablet Discontinued 5 mg PO TWICE A DAY November 25, 2024 11:25am December 07, 2024 10:20am Start: 11-09-2024 End: 12-09-2024 take 1 tablet by mouth every twelve hours apixaban 5 MG tablet Indications: Cerebrovascular accident (CVA), unspecified mechanism Take 1 tablet by mouth every 12 hours. 60 tablet 11/09/2024 12/09/2024 Active aspirin 81 mg chewable tablet (2 sources) Platelet Aggregation Inhibitor, Nonsteroidal Anti-inflammatory Drug Start: 11-09-2024 End: 11-11-2024 aspirin chewable tablet 81 mg Start: 11-08-2024 End: 11-08-2024 take 1 dose by mouth once 324 mg, Oral, ONCE, 1 dose, On Fri11/08/24 at 2100 atorvastatin 40 mg oral tablet (20 sources) HMG-CoA Reductase Inhibitor Start: 11-09-2024 End: 12-07-2024 take 1 tablet by mouth at bedtime Atorvastatin 40 mg tablet Discontinued 40 mg PO AT BEDTIME November 25, 2024 11:25am December 07, 2024 10:20am Start: 09-14-2021 take 40 mg by mouth once daily Atorvastatin Active 40 MG PO DAILY September 14, 2021 1:00am Start: 12-09-2018 End: 07-24-2021 take 1 tablet by mouth once daily Atorvastatin (Lipitor) 40 mg tablet Discontinued 40 mg PO DAILY December 09, 2018 12:00am July 24, 2021 10:23am 120 actuat budesonide 0.16 mg/actuat / formoterol fumarate 0.0048 mg/actuat / glycopyrrolate 0.009 mg/actuat metered dose inhaler (1 source) Corticosteroid, beta2-Adrenergic Agonist Start: 11-09-2024 End: 11-11-2024 take 2 puff(s) by inhalation twice daily 2 puff, Inhalation, 2 TIMES DAILY, First dose on Fri11/09/24 at 1130, Until Discontinued clopidogrel 300 mg oral tablet (1 source) [id number] Platelet Inhibitor Start: 11-08-2024 End: 11-08-2024 take 1 dose by mouth once 300 mg, Oral, ONCE, 1 dose, On Fri11/08/24 at 2100 doxepin hydrochloride 25 mg oral capsule (14 sources) Tricyclic Antidepressant Start: 09-14-2021 End: 01-06-2023 take 1-3 capsules by mouth once daily as needed for sleep Doxepin 25 mg capsule Discontinued 25 mg PO DAILY September 14, 2021 1:00am January 06, 2023 2:40pm Take 1-3 capsules as needed for sleep or itching 0.4 ml enoxaparin sodium 100 mg/ml prefilled syringe (1 source) Low Molecular Weight Heparin Start: 11-09-2024 End: 11-11-2024 inject 40 mg by subcutaneous injection once daily 40 mg, Subcutaneous, DAILY, First dose on Fri11/09/24 at 0900, Until Discontinued, For SUBCUTANEOUS route ONLY: alternate injection sites between left and right abdominal wall, pinching location and avoiding area around navel. If unable to use abdominal sites, may use the front or side of thighs., Indications: DVT/PE prophylaxis ferrous fumarate 324 mg oral tablet (14 sources) Start: 09-05-2021 End: 09-14-2021 take 1 tablet by mouth once daily Ferrous Fumarate 324 mg (106 mg iron) tablet Discontinued 324 mg PO DAILY September 05, 2021 1:00am September 14, 2021 3:36pm furosemide 40 mg oral tablet (20 sources) Loop Diuretic Start: 09-05-2021 End: 11-25-2024 take 1 tablet by mouth twice daily Furosemide 40 mg tablet Discontinued 40 mg PO TWICE A DAY September 14, 2021 3:33pm November 25, 2024 11:22am Start: 09-05-2021 End: 09-14-2021 Furosemide 40 mg tablet Disc ontinued NMA PO September 05, 2021 1:00am September 14, 2021 3:42pm furOSEmide 40 MG tablet Take by mouth. Take 1 tablet one to two times daily as needed as directed Active 1 ml hydrALAZINE hydrochloride 20 mg/ml injection (1 source) Arteriolar Vasodilator Start: 11-08-2024 End: 11-11-2024 10 mg, Intravenous, EVERY 10 MINUTES NEEDED, 3 doses, Starting on Fri11/08/24 at 1800, Until Fri11/11/24 at 1658, Administer for systolic blood pressure greater than 220 OR diastolic blood pressure greater than 120. HOLD if heart rate greater than 60. hydrALAZINE (APRESOLINE) injection 10 mg (1 source) Start: 11-08-2024 End: 11-11-2024 take 10 mg intravenously every hour as needed hydrALAZINE (APRESOLINE) injection 10 mg indapamide 2.5 mg oral tablet (20 sources) Thiazide-like Diuretic Start: 09-14-2021 End: 01-06-2023 take 1 tablet by mouth once daily in the morning Indapamide 2.5 mg tablet Discontinued 2.5 mg PO EVERY MORNING September 14, 2021 1:00am January 06, 2023 2:38pm Do not take while on Furosemide Start: 02-20-2017 End: 08-22-2021 take 1 tablet by mouth once daily Indapamide 2.5 MG tablet Discontinued 2.5 mg PO DAILY February 20, 2017 12:00am August 22, 2021 2:03pm Insulin lispro (HUMALOG) injection (1 source) Start: 11-08-2024 End: 11-11-2024 Insulin lispro (HUMALOG) injection iohexol (OMNIPAQUE) 350 MG/M L injection 1-171 mL (2 sources) Start: 11-08-2024 End: 11-08-2024 1-171 mL, Intravenous, ONCE, 1 dose, On Fri11/08/24 at 1945, Extravasation Risk, CT Procedure Start: 11-08-2024 End: 11-08-2024 1-171 mL, Intravenous, ONCE, 1 dose, On Fri11/08/24 at 1845, Extravasation Risk, CT Procedure ipratropium bromide 0.021 mg/actuat metered dose nasal spray (20 sources) Anticholinergic Start: 11-11-2024 End: 11-25-2024 Ipratropium Stanley 21 mcg (0.03 %) spray,non-aerosol Discontinued 1 - 2 NMA INTRANASAL EVERY 6 HOURS NEEDED as needed for rhinitis November 11, 2024 12:00am November 25, 2024 11:24am Start: 09-14-2021 Ipratropium Br omide Active 2 SPRAY INTRANASAL 2 to 3 times per day September 14, 2021 1:00am administer into each nostril Start: 12-09-2018 End: 12-09-2018 Ipratropium Stanley 0.03 % s pray,non-aerosol Discontinued 2 NMA INTRANASAL EVERY 6 HOURS as needed for allergy symptoms December 09, 2018 12:00am December 09, 2018 1:28pm Start: 12-09-2018 End: 12-09-2018 Ipratropium Stanley Disconti nued 2 SPRAY INTRANASAL EVERY 6 HOURS December 09, 2018 12:00am December 09, 2018 1:28pm labetalol hydrochloride 5 mg/ml injectable solution (1 source) beta-Adrenergic Jd Start: 11-08-2024 End: 11-11-2024 20 mg, Intravenous, EVERY 10 MINUTES NEEDED, 3 doses, Starting on Fri11/08/24 at 1800, Until Urmila 11/11/24 at 1658, Administer for systolic blood pressure greater than 220 OR diastolic blood pressure greater than 120. HOLD if heart rate less than 60., Administration duration: up to 20 mg over 2 minutes. Telemetry required except for SENIOR TAX ANALYST patients on [address] and 7. For vials: labetalol should be treated as a SINGLE USE VIAL. Discard remaining contents after one use. Labetalol (NORMODYNE) injection 10 mg (1 source) Start: 11-08-2024 End: 11-11-2024 take 10 mg intravenously every hour as needed Labetalol (NORMODYNE) injection 10 mg linagliptin 5 mg oral tablet (5 sources) Dipeptidyl Peptidase 4 Inhibitor Start: 01-06-2023 End: 11-11-2024 take 1 tablet by mouth once daily Linagliptin (Tradjenta) 5 mg tablet Discontinued 5 mg PO DAILY January 06, 2023 12:00am November 11, 2024 5:55pm metFORMIN hydrochloride 500 mg oral tablet (5 sources) Biguanide Start: 01-06-2023 End: 11-11-2024 take 2 tablets by mouth twice daily Metformin 500 mg tablet Discontinued 1000 mg PO TWICE A DAY January 06, 2023 12:00am November 11, 2024 5:55pm Start: 01-06-2023 take 1000 mg by mout h twice daily Metformin Active 1000 MG PO TWICE A DAY January 06, 2023 12:00am metroNIDAZOLE 500 mg oral tablet (20 sources) Nitroimidazole Antimicrobial Start: 08-13-2021 End: 08-22-2021 Metronidazole 500 mg tablet Discontinued 500 mg PO .COMPLEX August 15, 2021 11:40am August 22, 2021 4:45pm 500 mg PO Take 2 (two) tablets at 1300, 1500, 2300 mirtazapine 15 mg oral tablet (14 sources) Start: 09-05-2021 End: 01-06-2023 Mirtazapine 15 mg tablet Discontinued NMA PO September 05, 2021 1:00am January 06, 2023 2:39pm Start: 09-05-2021 End: 01-06-2023 Mirtazapine Discontinued EAC H PO September 05, 2021 1:00am January 06, 2023 2:39pm neomycin sulfate 500 mg oral tablet (14 sources) Aminoglycoside Antibacterial Start: 08-13-2021 End: 08-22-2021 Neomycin 500 mg tablet Discontinued 500 mg PO .COMPLEX August 13, 2021 1:00am August 22, 2021 4:45pm Take two (2) 500 mg tablets PO at 1300, 1500, 2300 pantoprazole 40 mg delayed release oral tablet (20 sources) Proton Pump Inhibitor Start: 08-06-2021 End: 01-06-2023 take 1 tablet by mouth at bedtime Pantoprazole 40 mg tablet,delayed release (DR/EC) Discontinued 40 mg PO AT BEDTIME August 15, 2021 11:40am January 06, 2023 2:39pm Polyethylene glycol (MIRALAX) packet 17 g (1 source) Start: 11-08-2024 End: 11-11-2024 Polyethylene glycol (MIRALAX) packet 17 g potassium citrate 15 meq extended release oral tablet (20 sources) Start: 02-13-2023 End: 11-11-2024 take 1 tablet by mouth once daily Potassium Citrate 15 mEq tablet extended release Discontinued 15 meq PO DAILY February 13, 2023 12:00am November 11, 2024 6:04pm Start: 09-05-2021 End: 01-06-2023 take 1 tablet by mouth twice daily Potassium Citrate 15 mEq tablet extended release Discontinued 15 meq PO TWICE A DAY September 14, 2021 3:34pm January 06, 2023 2:39pm Start: 09-05-2021 End: 09-14-2021 Potassium Citrate 15 mEq tab let extended release Discontinued NMA PO September 05, 2021 1:00am September 14, 2021 3:42pm Start: 09-05-2021 End: 09-14-2021 Potassium Citrate Discontinu ed EACH PO September 05, 2021 1:00am September 14, 2021 3:42pm Start: 07-24-2021 End: 08-22-2021 take 1 tablet by mouth once daily Potassium Citrate 5 mEq (540 mg) tablet extended release Discontinued 5 meq PO DAILY July 24, 2021 1:00am August 22, 2021 4:45pm sacubitril 24 mg / valsartan 26 mg oral tablet (20 sources) Angiotensin 2 Receptor Jd Start: 04-15-2022 End: 01-06-2023 Sacubitril-Valsartan (Entresto) 24-26 mg tablet Discontinued 1 {tbl} PO TWICE A DAY April 15, 2022 12:00am January 06, 2023 2:39pm Start: 12-09-2018 End: 08-22-2021 Sacubitril-Valsartan (Entres to) 24-26 mg tablet Discontinued 1 {tbl} PO TWICE A DAY 180 May 16, 2021 1:38pm August 15, 2021 11:40am Senna Leaves (1 source) Start: 11-09-2024 End: 11-11-2024 Senna (SENOKOT) tablet 8.6 m g 1000 ml sodium chloride 9 mg /ml injection (3 sources) Start: 11-08-2024 End: 11-09-2024 Intravenous, at 75 mL/hr, CONTINUOUS, Starting on Fri11/08/24 at 2015, Until Fri11/09/24 at 2050 Start: 11-08-2024 End: 11-08-2024 1-100 mL, Intravenous, ONCE NEEDED, 1 dose, Starting on Fri11/08/24 at 1933, Until Fri11/08/24 at 1933, Flush, CT Procedure Start: 11-08-2024 End: 11-08-2024 1-100 mL, Intravenous, ONCE NEEDED, 1 dose, Starting on Fri11/08/24 at 1838, Until Fri11/08/24 at 1838, Flush, CT Procedure spironolactone 50 mg oral tablet (14 sources) Aldosterone Antagonist Start: 02-20-2017 End: 12-09-2018 take 1 tablet by mouth once daily Spironolactone 50 MG tablet Discontinued 50 mg PO DAILY February 20, 2017 12:00am December 09, 2018 9:33am warfarin sodium 3 mg oral tablet (20 sources) Vitamin K Antagonist Start: 04-28-2019 End: 11-11-2024 take 1 tablet by mouth every other day Warfarin 3 mg tablet Discontinued 3 mg PO EVERY OTHER DAY April 28, 2019 12:00am November 11, 2024 5:54pm Start: 12-09-2018 End: 11-11-2024 take 1 tablet by mouth every other day Warfarin 5 mg tablet Discontinued 5 mg PO EVERY OTHER DAY December 09, 2018 1:29pm November 11, 2024 5:54pm Start: 12-09-2018 End: 12-09-2018 take 1 tablet by mouth once daily Warfarin 3 mg tablet Discontinued 3 mg PO DAILY December 09, 2018 12:00am December 09, 2018 1:29pm Start: 02-20-2017 End: 12-09-2018 take 1 tablet by mouth once daily Warfarin 5 MG tablet Discontinued 5 mg PO DAILY February 20, 2017 12:00am December 09, 2018 1:30pm Problems Active Problems Problem Classification Problem Date Documented Date Episodic/Chronic Acute cerebrovascular disease (20 sources) Cerebrovascular accident; Translations: [Cerebral infarction, unspecified] Onset: 11-08-2024 11-11-2024 Chronic Comment on above: Left MCA ischemic st roke cardioembolic in nature secondary to atrial fibrillation with a subtherapeutic INR occurring on 11/08/2024. 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 She does not drive.Stroke risk factors include hypertension, diabetes, hypothyroidism, newly diagnosed atrial fibrillation, prior atrial thrombus, medication noncompliance, unspecified sleep disorder on 2L nasal cannula nightly, previous strokes, obesity, and former smoker. Blindness and vision defects (7 sources) Visual field defect; Translations: [Unspecified visual field defects] Onset: 11-26-2024 11-17-2024 Episodic Comment on above: No vision in the R e ye on PE. 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 Tumor invades pericolonic fat, LN 22 negative. On observation.No evidence of disease.Increasing CEA level 6.2 on 10/07/2022.CEA 8 on 10/16/2022. PET/CT shows activity in the left iliac bone and mesentery suggestive of metastatic disease, post surgery site. MRI brain shows chronic vascular changes, calcification/gliosis in the R cerebellum.Bone scan is negative. CT head shows encephalomalacia. 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 Tumor invades pericolonic fat, LN 22 negative. On observation.No evidence of disease.Increasing CEA level 6.2 on 10/07/2022.CEA 8 on 10/16/2022. PET/CT shows activity in the left iliac bone and mesentery suggestive of metastatic disease, post surgery site. MRI brain shows chronic vascular changes, calcification/gliosis in the R cerebellum.Bone scan is negative. CT head shows encephalomalacia. Comes for follow up. CEA on 11/19/2024 was 4.6.No evidence of disease clinically. Cardiac and circulatory congenital anomalies (15 sources) Patent foramen ovale; Translations: [Atrial septal defect] Onset: 01-10-2025 12-09-2018 Chronic Cardiac dysrhythmias (20 sources) Paroxysmal atrial fibrillation; Translations: [Paroxysmal atrial fibrillation] Onset: 11-26-2024 08-15-2021 Chronic Comment on above: Newly diagnosed afte r most recent stroke on 11/08/2024. Cardiac dysrhythmias (7 sources) Bradycardia; Translations: [Bradycardia, unspecified] Onset: 11-26-2024 11-26-2024 Episodic Chronic obstructive pulmonary disease and bronchiectasis (7 sources) Chronic obstructive lung disease; Translations: [Chronic obstructive pulmonary disease, unspecified] Onset: 11-26-2024 11-26-2024 Chronic Comment on above: INHALER PRN- RARELY USED Complications of surgical procedures or medical care (14 sources) Postoperative ileus; Translations: [Other postprocedural complications and disorders of digestive system] 08-23-2021 Episodic Congestive heart failure; nonhypertensive (20 sources) Chronic combined systolic and diastolic heart failure; Translations: [Chronic combined systolic (congestive) and diastolic (congestive) heart failure] Onset: 11-26-2024 12-09-2018 Chronic Deficiency and other anemia (14 sources) Anemia; Translations: [Anemia, unspecified] 08-15-2021 Episodic Comment on above: RECENT TRANSFUSION Diabetes mellitus with complications (4 sources) Hyperglycemia due to type 2 diabetes mellitus; Translations: [Type 2 diabetes mellitus with hyperglycemia] Onset: 05-25-2024 11-09-2024 Chronic Diabetes mellitus without complication (7 sources) Diabetes mellitus; Translations: [Type 2 diabetes mellitus without complications] Onset: 11-26-2024 12-04-2024 Chronic Comment on above: Well-controlled with hemoglobin A1c less than 7% at admission to the emergency department. Essential hypertension (18 sources) Essential hypertension; Translations: [Essential (primary) hypertension] Onset: 11-26-2024 12-09-2018 Chronic Comment on above: NO MEDS, PCP TOOK OF MEDS Fluid and electrolyte disorders (20 sources) Hyponatremia; Translations: [Hypo-osmolality and hyponatremia] 08-23-2021 Episodic Comment on above: takes Potassium at h ome. Gout and other crystal arthropathies (7 sources) Gout; Translations: [Gout, unspecified] Onset: 11-26-2024 12-04-2024 Chronic Heart valve disorders (7 sources) Mitral valve stenosis; Translations: [Rheumatic mitral stenosis] Onset: 11-26-2024 12-04-2024 Chronic Comment on above: Moderate on an echoc ardiogram done at [facility] in November 2024. Late effects of cerebrovascular disease (1 source) Aphasia following cerebral infarction; Translations: [Aphasia following cerebral infarction] Onset: 01-14-2025 Chronic Malaise and fatigue (18 sources) Right hemiparesis; Translations: [Weakness] Onset: 11-26-2024 12-10-2024 Episodic Comment on above: This has improved si gnificantly; patient completed inpatient rehab. There is right upper extremity ataxia noted on today's exam but no significant weakness. 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, not elsewhere classified] 12-09-2018 Chronic Other connective tissue disease (1 source) Pain in left foot; Translations: [Pain in left foot] 04-06-2021 Episodic Other connective tissue disease (1 source) Other specified soft tissue disorders; Translations: [Other specified soft tissue disorders] Onset: 11-16-2024 Episodic Other injuries and conditions due to external causes (12 sources) Contusion; Translations: [Other injury of unspecified body region, initial encounter] 09-21-2024 Episodic Comment on above: Left ring finger Other lower respiratory disease (6 sources) Hypoxia; Translations: [Hypoxemia] 11-17-2024 Episodic Comment on above: Only when sleeping. Suspect MURIEL. Other lower respiratory disease (2 sources) Shortness of breath; Translations: [Shortness of breath] Onset: 12-24-2024 Episodic Other lower respiratory disease (1 source) Hypoxemia; Translations: [Hypoxemia] Onset: 11-26-2024 Episodic Other nervous system disorders (9 sources) Global aphasia; Translations: [Aphasia] 11-11-2024 Chronic Other nervous system disorders (2 sources) Aphasia; Translations: [Aphasia] Onset: 11-26-2024 Chronic Other non-traumatic joint disorders (6 sources) Pain in wrist; Translations: [Pain in right wrist] 12-17-2024 Episodic Other non-traumatic joint disorders (2 sources) Pain in right wrist; Translations: [Pain in right wrist] Onset: 01-18-2025 Episodic Other nutritional; endocrine; and metabolic disorders (11 sources) Body mass index 40+ - severely obese; Translations: [Morbid (severe) obesity due to excess calories] 08-21-2021 Chronic Other nutritional; endocrine; and metabolic disorders (6 sources) Obese class I; Translations: [Class 1 obesity] 11-26-2024 Chronic Other nutritional; endocrine; and metabolic disorders (6 sources) Hypophosphatemia; Translations: [Other disorders of phosphorus metabolism] 12-04-2024 Chronic Other nutritional; endocrine; and metabolic disorders (1 source) Other disorders of phosphorus metabolism; Translations: [Other disorders of phosphorus metabolism] Onset: 11-26-2024 Chronic Other nutritional; endocrine; and metabolic disorders (6 sources) H/O: diabetes mellitus; Translations: [Personal history of other endocrine, nutritional and metabolic disease] 12-17-2024 Episodic Other screening for suspected conditions (not mental disorders or infectious disease) (20 sources) Raised TSH level; Translations: [Other specified abnormal findings of blood chemistry] Onset: 10-06-2024 08-06-2021 Episodic Comment on above: INR was only 1.6 at presentation to the emergency department with stroke symptoms. Transition to Eliquis at [facility]. Peripheral and visceral atherosclerosis (20 sources) Peripheral vascular disease, unspecified; Translations: [Peripheral arterial disease] Onset: 09-08-2024 07-24-2021 Chronic Pulmonary heart disease (7 sources) Pulmonary hypertension; Translations: [Pulmonary hypertension, unspecified] Onset: 11-26-2024 12-17-2024 Chronic Comment on above: On an echocardiogram done at [facility] in November 2024 the right ventricular systolic pressure was estimated at 45 which is up from 31 in 2019. She now has mitral stenosis which is moderate and mild regurgitation Residual codes; unclassified (6 sources) Finding related to sleep; Translations: [Sleep apnea, unspecified] 11-17-2024 Chronic Comment on above: Abnormal overnight t rending pulse ox for 1425. Plan overnight sleep study at discharge. Residual codes; unclassified (3 sources) Obstructive sleep apnea syndrome; Translations: [Obstructive sleep apnea (adult) (pediatric)] 12-17-2024 Chronic Comment on above: AHI is 5.1 using AAS M 1B criteria, using AASM 1A criteria AHI is 16.8 from November 2024 Residual codes; unclassified (2 sources) Obstructive sleep apnea (adult) (pediatric); Translations: [Obstructive sleep apnea (adult) (pediatric)] Onset: 12-24-2024 Chronic Residual codes; unclassified (1 source) Hypersomnia, unspecified; Translations: [Hypersomnia, unspecified] Onset: 11-30-2024 Chronic Residual codes; unclassified (1 source) Sleep apnea, unspecified; Translations: [Sleep apnea, unspecified] Onset: 11-26-2024 Chronic Residual codes; unclassified (17 sources) History of partial resection of colon; Translations: [Acquired absence of other specified parts of digestive tract] 09-02-2021 Episodic Residual codes; unclassified (6 sources) Acquired absence of other specified parts of digestive tract; Translations: [Other postprocedural status] Onset: 11-26-2024 Episodic Residual codes; unclassified (1 source) Pain; Translations: [Pain, unspecified] 09-21-2024 Episodic Residual codes; unclassified (6 sources) Noncompliance with medication regimen; Translations: [Noncompliance with medication regimen] 12-04-2024 Episodic Comment on above: Subtherapeutic INR a t admission on warfarin and elevated TSH to 30 despite being on levothyroxine 88 mcg daily. Sprains and strains (14 sources) Sprain of foot; Translations: [Unspecified sprain of right foot, initial encounter] 02-21-2017 Episodic Thyroid disorders (18 sources) Hypothyroidism; Translations: [Hypothyroidism, unspecified] Onset: 11-26-2024 08-19-2021 Chronic Unclassified (3 sources) pt to make appt, after DC Unclassified (3 sources) Bring ID, Insurance Card and list of medications Unclassified (3 sources) referral ent. office will call to make appointment. if you don't hear from them in 1 week call the office Unclassified (3 sources) call office to make a follow up appointment for you colonoscopy Unclassified (2 sources) Longstanding persistent atrial fibrillation; Translations: [Longstanding persistent atrial fibrillation] Onset: 11-26-2024 Unclassified (1 source) Obesity, class 1; Translations: [Obesity, class 1] Onset: 11-26-2024 Unclassified (1 source) Patient's other noncompliance with medication regimen for other reason; Translations: [Patient's other noncompliance with medication regimen for other reason] Onset: 11-26-2024 Past or Other Problems Problem Classification Problem Date Documented Da te Episodic/Chronic Other circulatory disease (1 source) Personal history of transient ischemic attack (TIA), and cerebral infarction without residual deficits; Translations: [Personal history of transient ischemic attack (TIA), and cerebral infarction without residual deficits] Onset: 09-08-2024 Episodic Residual codes; unclassified (1 source) Pain, unspecified; Translations: [Pain, unspecified] Onset: 09-21-2024 Episodic Results Test Name Value Interpretation Reference Range Facility Culture, Anaerobic Any Sourc maría 12-24-2024 CUAN No growth in 5 days. Normal [facility] Comment on above: Performed By: #### M 100.2900, M100.4001, M1.1999 ####[facility] [address] [place], [address] Pulmonary Visit Reporton Pulmonary Visit Report Normal [facility] Body Fluid Culton 12-23-2024 BFC No growth in 5 days. Normal [facility] Comment on above: Performed By: #### M 100.2900, M100.4001, M1.1999 ####[facility] [address] [place], [address] Plastic Surgery Visit Report on 12-23-2024 Plastic Surgery Visit Report Normal [facility] Basic Metabolic Profile (BMP )on 12-20-2024 BUN Normal - [facility] Comment on above: Result Comment: Canc elled via OM: Order cancelled - Patient discharged Performed By: #### L 500.2500, L100.0100 ####[facility] [address] [place], [address] BUN/CRE Normal - [facility] Comment on above: Result Comment: Canc elled via OM: Order cancelled - Patient discharged Performed By: #### L 500.2500, L100.0100 ####[facility] [address] [place], [address] Calcium Normal 7.6-11.0 [facility] Comment on above: Result Comment: Canc elled via OM: Order cancelled - Patient discharged Performed By: #### L 500.2500, L100.0100 ####[facility] [address] [place], [address] CL Normal 98-108 [facility] Comment on above: Result Comment: Canc elled via OM: Order cancelled - Patient discharged Performed By: #### L 500.2500, L100.0100 ####[facility] [address] [place], [address] CO2 Normal 21.0-32.0 [facility] Comment on above: Result Comment: Canc elled via OM: Order cancelled - Patient discharged Performed By: #### L 500.2500, L100.0100 ####[facility] [address] [place], [address] CREAT,SERUM Normal 0.70-1.20 [facility] Comment on above: Result Comment: Canc elled via OM: Order cancelled - Patient discharged Performed By: #### L 500.2500, L100.0100 ####[facility] [address] [place], [address] eGFR Normal >60 [facility] Comment on above: Result Comment: Canc elled via OM: Order cancelled - Patient discharged Performed By: #### L 500.2500, L100.0100 ####[facility] [address] [place], [address] GAP Normal 5-15 [facility] Comment on above: Result Comment: Canc elled via OM: Order cancelled - Patient discharged Performed By: #### L 500.2500, L100.0100 ####[facility] [address] [place], [address] GLU Normal 70-99 [facility] Comment on above: Result Comment: Canc elled via OM: Order cancelled - Patient discharged Performed By: #### L 500.2500, L100.0100 ####[facility] [address] [place], [address] Potassium Normal 3.3-5.1 [facility] Comment on above: Result Comment: Canc elled via OM: Order cancelled - Patient discharged Performed By: #### L 500.2500, L100.0100 ####[facility] [address] [place], [address] Basic Metabolic Profile (BMP) Normal 133-145 [facility] Comment on above: Result Comment: Canc elled via OM: Order cancelled - Patient discharged Performed By: #### L 500.2500, L100.0100 ####[facility] [address] [place], [address] CBC W/Diff, Automatedon 05- Absolute Neut Normal 2.0-7.7 [facility] Comment on above: Result Comment: Canc elled via OM: Order cancelled - Patient discharged Performed By: #### L 500.2500, L100.0100 ####[facility] [address] [place], [address] HCT Normal 37-47 [facility] Comment on above: Result Comment: Canc elled via OM: Order cancelled - Patient discharged Performed By: #### L 500.2500, L100.0100 ####[facility] [address] [place], [address] HGB Normal 12.0-15.0 [facility] Comment on above: Result Comment: Canc elled via OM: Order cancelled - Patient discharged Performed By: #### L 500.2500, L100.0100 ####[facility] [address] [place], [address] MCH Normal 27.0-32.0 [facility] Comment on above: Result Comment: Canc elled via OM: Order cancelled - Patient discharged Performed By: #### L 500.2500, L100.0100 ####[facility] [address] [place], [address] MCHC Normal 32-36 [facility] Comment on above: Result Comment: Canc elled via OM: Order cancelled - Patient discharged Performed By: #### L 500.2500, L100.0100 ####[facility] [address] [place], [address] MCV Normal 81-99 [facility] Comment on above: Result Comment: Canc elled via OM: Order cancelled - Patient discharged Performed By: #### L 500.2500, L100.0100 ####[facility] [address] [place], [address] NEUT% Normal 47-70 [facility] Comment on above: Result Comment: Canc elled via OM: Order cancelled - Patient discharged Performed By: #### L 500.2500, L100.0100 ####[facility] [address] [place], [address] PLT Normal 150-450 [facility] Comment on above: Result Comment: Canc elled via OM: Order cancelled - Patient discharged Performed By: #### L 500.2500, L100.0100 ####[facility] [address] [place], [address] RBC Normal 4.2-5.4 [facility] Comment on above: Result Comment: Canc elled via OM: Order cancelled - Patient discharged Performed By: #### L 500.2500, L100.0100 ####[facility] [address] [place], [address] RDW CV Normal 11.6-14.6 [facility] Comment on above: Result Comment: Canc elled via OM: Order cancelled - Patient discharged Performed By: #### L 500.2500, L100.0100 ####[facility] [address] [place], [address] RDW SD Normal 35.1-43.9 [facility] Comment on above: Result Comment: Canc elled via OM: Order cancelled - Patient discharged Performed By: #### L 500.2500, L100.0100 ####[facility] [address] [place], [address] WBC Normal 4.4-11.0 [facility] Comment on above: Result Comment: Canc elled via OM: Order cancelled - Patient discharged Performed By: #### L 500.2500, L100.0100 ####[facility] [address] [place], [address] Absolute lymphocyte countOrd ered By: Shayla Castro on 12-19-2024 Lymphocytes Auto (Unsp spec) [#/Vol] 1.33 10*3/uL 0.83-4.51 [facility] Absolute neutrophil countOrd ered By: Shaylavelasquez Castro on 12-19-2024 Neutrophils (Bld) [#/Vol] 6.9 10*3/uL 2.0-7.7 [facility] Anion gap in Serum or Plasma Ordered By: Shayla Castro on 12-19-2024 Anion gap [Moles/Vol] 11 mmol/L 5-15 [facility] Automated lymphocyte count a s percentage of total leukocytesOrdered By: Shayla Castro on 12-19-2024 Lymphocytes/100 WBC Auto (Unsp spec) 14.6 % Low 19-41 [facility] BUN/creatinine ratioOrdered By: Shayla Castro on 12-19-2024 Urea nitrogen/Creatinine [Mass ratio] 21.1 mg/mg High 10- [facility] Basic Metabolic Profile (BMP )on 12-19-2024 BUN/CRE 21.1 RATIO High - [facility] Comment on above: Performed By: #### L 500.2500, L100.0100 ####[facility] [address] [place], [address] Calcium [Mass/Vol] 9.6 mg/dL Normal 7.6-11.0 [facility] Comment on above: Performed By: #### L 500.2500, L100.0100 ####[facility] [address] [place], [address] Chloride [Moles/Vol] 105 mmol/L Normal 98-108 [facility] Comment on above: Performed By: #### L 500.2500, L100.0100 ####[facility] [address] [place], [address] CO2 [Moles/Vol] 23.1 mmol/L Normal 21.0-32.0 [facility] Comment on above: Performed By: #### L 500.2500, L100.0100 ####[facility] [address] [place], [address] Creatinine [Mass/Vol] 0.72 mg/dL Normal 0.70-1.20 [facility] Comment on above: Performed By: #### L 500.2500, L100.0100 ####[facility] [address] [place], [address] ECRCL 73.65 ml/min Normal 50-250 [facility] Comment on above: Performed By: #### L 500.2500, L100.0100 ####[facility] [address] [place], [address] GAP 11 Normal 5-15 [facility] Comment on above: Performed By: #### L 500.2500, L100.0100 ####[facility] [address] [place], [address] GFR/1.73 sq M.predicted among non-blacks MDRD (S/P/Bld) [Vol rate/Area] 89 mL/min/{1.73_m2} Normal >60 [facility] Comment on above: Result Comment: mL/m in/1.73m2 CKD-EPI Creatinine Equation (2020) Performed By: #### L 500.2500, L100.0100 ####[facility] [address] [place], [address] Glucose [Mass/Vol] 116 mg/dL High 70-99 [facility] Comment on above: Performed By: #### L 500.2500, L100.0100 ####[facility] [address] [place], [address] Potassium [Moles/Vol] 4.2 mmol/L Normal 3.3-5.1 [facility] Comment on above: Performed By: #### L 500.2500, L100.0100 ####[facility] [address] [place], [address] Sodium [Moles/Vol] 139 mmol/L Normal 133-145 [facility] Comment on above: Performed By: #### L 500.2500, L100.0100 ####[facility] [address] [place], [address] Urea nitrogen [Mass/Vol] 15 mg/dL Normal 4-19 [facility] Comment on above: Performed By: #### L 500.2500, L100.0100 ####[facility] [address] [place], [address] Basophil percentageOrdered B y: Shayla Castro on 12-19-2024 Basophils/100 WBC (Bld) 0.5 % 0-1 [facility] Bedside Glucoseon 12-19-2024 FINGERSTICK GLU 108 mg/dL High 74-106 [facility] Comment on above: Result Comment: FRANCINE JIGNAENT OF PATIENT CARE PER NURSING PROTOCOL Performed By: #### L 501.080 ####[facility] [address] [place], [address] FINGERSTICK GLU 118 mg/dL High 74-106 [facility] Comment on above: Result Comment: FRANCINE JIGNAENT OF PATIENT CARE PER NURSING PROTOCOL Performed By: #### L 501.080 ####[facility] [address] [place], [address] CBC W/Diff, Automatedon 05- Absolute Lymph 1.33 X10 3/uL Normal 0.83-4.51 [facility] Comment on above: Performed By: #### L 500.2500, L100.0100 ####[facility] [address] [place], [address] Absolute Neut 6.9 X10 3/uL Normal 2.0-7.7 [facility] Comment on above: Performed By: #### L 500.2500, L100.0100 ####[facility] [address] [place], [address] Basophils/100 WBC (Bld) 0.5 % Normal 0-1 [facility] Comment on above: Performed By: #### L 500.2500, L100.0100 ####[facility] [address] [place], [address] Eosinophils/100 WBC (Bld) 1.9 % Normal 0-5 [facility] Comment on above: Performed By: #### L 500.2500, L100.0100 ####[facility] [address] [place], [address] Erythrocyte distribution width (RBC) [Ratio] 14.9 % High 11.6-14.6 [facility] Comment on above: Performed By: #### L 500.2500, L100.0100 ####[facility] [address] [place], [address] Hematocrit (Bld) [Volume fraction] 46.1 % Normal 37-47 [facility] Comment on above: Performed By: #### L 500.2500, L100.0100 ####[facility] [address] [place], [address] Hemoglobin (Bld) [Mass/Vol] 14.6 g/dL Normal 12.0-15.0 [facility] Comment on above: Performed By: #### L 500.2500, L100.0100 ####[facility] [address] [place], [address] IG% 0.200 Normal 0.0-0.9 [facility] Comment on above: Result Comment: IG% - Immature Granulocytes (promyelocytes, myelocytes andmetamyelocytes) > 1% indicates that a LEFT SHIFT is Present. Performed By: #### L 500.2500, L100.0100 ####[facility] [address] [place], [address] Lymphocytes/100 WBC (Bld) 14.6 % Low 19-41 [facility] Comment on above: Performed By: #### L 500.2500, L100.0100 ####[facility] [address] [place], [address] MCH (RBC) [Entitic mass] 28.4 pg Normal 27.0-32.0 [facility] Comment on above: Performed By: #### L 500.2500, L100.0100 ####[facility] [address] [place], [address] MCHC (RBC) [Mass/Vol] 31.7 g/dL Low 32-36 [facility] Comment on above: Performed By: #### L 500.2500, L100.0100 ####[facility] [address] [place], [address] MCV (RBC) [Entitic vol] 89.7 fL Normal 81-99 [facility] Comment on above: Performed By: #### L 500.2500, L100.0100 ####[facility] [address] [place], [address] Monocytes/100 WBC (Bld) 7.5 % Normal 0-10 [facility] Comment on above: Performed By: #### L 500.2500, L100.0100 ####[facility] [address] [place], [address] Neutrophils/100 WBC (Bld) 75.3 % High 47-70 [facility] Comment on above: Performed By: #### L 500.2500, L100.0100 ####[facility] [address] [place], [address] Nucleated RBC (Bld) [#/Vol] 0 10*3/uL Normal 0-5 [facility] Comment on above: Performed By: #### L 500.2500, L100.0100 ####[facility] [address] [place], [address] Platelet mean volume (Bld) [Entitic vol] 10.2 fL Normal 6.2-12.0 [facility] Comment on above: Performed By: #### L 500.2500, L100.0100 ####[facility] [address] [place], [address] Platelets (Bld) [#/Vol] 237 10*3/uL Normal 150-450 [facility] Comment on above: Performed By: #### L 500.2500, L100.0100 ####[facility] [address] [place], [address] RBC (Bld) [#/Vol] 5.14 10*6/uL Normal 4.2-5.4 [facility] Comment on above: Performed By: #### L 500.2500, L100.0100 ####[facility] [address] [place], [address] RDW SD 49.9 fl High 35.1-43.9 [facility] Comment on above: Performed By: #### L 500.2500, L100.0100 ####[facility] [address] [place], [address] WBC (Bld) [#/Vol] 9.1 10*3/uL Normal 4.4-11.0 [facility] Comment on above: Performed By: #### L 500.2500, L100.0100 ####[facility] [address] [place], [place], [id number] Carbon dioxide, total [Moles /volume] in Central venous bloodOrdered By: Shayla Castro on 12-19-2024 CO2 [Moles/Vol] 23.1 mmol/L 21.0-32.0 [facility] Chloride assayOrdered By: Na na Gloria on 12-19-2024 Chloride [Moles/Vol] 105 mmol/L 98-108 [facility] Discharge Instructionon 12-02 Discharge Instruction Normal [facility] Eosinophil percentageOrdered By: Shayla Castro on 12-19-2024 Eosinophils/100 WBC (Bld) 1.9 % 0-5 [facility] Erythrocyte distribution wid th ratioOrdered By: Shayla Castro on 12-19-2024 Erythrocyte distribution width (RBC) [Ratio] 14.9 % High 11.6-14.6 [facility] Erythrocyte distribution wid th standard deviationOrdered By: Shayla Gloria on 12-19-2024 Erythrocyte distribution width (RBC) [Ratio] 49.9 fl High 35.1-43.9 [facility] Glomerular filtration rate ( GFR) estimation/1.73 sq m using serum, plasma, or whole bOrdered By: Shayla Castro on 12-19-2024 GFR/1.73 sq M.predicted among non-blacks MDRD (S/P/Bld) [Vol rate/Area] 89 mL/min/{1.73_m2} >60 [facility] Comment on above: mL/min/1.73m2 CKD-EP I Creatinine Equation (2020) Glucose measurement at bedsi deOrdered By: Shayla Castro on 12-19-2024 Glucose [Mass/Vol] 108 mg/dL High 74-106 [facility] Comment on above: MANAGEMENT OF PATIEN T CARE PER NURSING PROTOCOL Gram Stainon 12-19-2024 GS Centrifuged Specimen ? Unable to centrifuge specimen due to insufficient volume. Gram Stain No organisms seen 4+ White Blood Cells Normal [facility] Comment on above: Performed By: #### M 100.2900, M100.4001, M100.1999 ####[facility] [address] [place], [address] Hematocrit Auto (Bld) [Volum e fraction]Ordered By: Shayla Castro on 12-19-2024 Hematocrit (Bld) [Volume fraction] 46.1 % 37-47 [facility] Hemoglobin measurementOrdere d By: Shaylavelasquez Castro on 12-19-2024 Hemoglobin (Bld) [Mass/Vol] 14.6 g/dL 12.0-15.0 [facility] Immature granulocytes/100 WB C Auto (Bld)Ordered By: Shaylavelasquez Castro on 12-19-2024 Immature granulocytes/100 WBC (Bld) 0.200 % 0.0-0.9 [facility] Comment on above: IG% - Immature Granu locytes (promyelocytes, myelocytes and metamyelocytes) > 1% indicates that a LEFT SHIFT is Present. MCV (mean corpuscular volume ) determinationOrdered By: Shayla Castro on 12-19-2024 MCV (RBC) [Entitic vol] 89.7 fL 81-99 [facility] Mean corpuscular hemoglobin (MCH) determinationOrdered By: Shaylavelasquez Castro on 12-19-2024 MCH (RBC) [Entitic mass] 28.4 pg 27.0-32.0 [facility] Mean corpuscular hemoglobin concentration (MCHC) determinationOrdered By: Shayla Castro on 12-19-2024 MCHC (RBC) [Mass/Vol] 31.7 g/dL Low 32-36 [facility] Mean platelet volume determi nationOrdered By: Shayla Castro on 12-19-2024 Platelet mean volume (Bld) [Entitic vol] 10.2 fL 6.2-12.0 [facility] Monocyte percentageOrdered B y: Shayla Castro on 12-19-2024 Monocytes/100 WBC (Bld) 7.5 % 0-10 [facility] Neutrophil percentageOrdered By: Shayla Castro on 12-19-2024 Neutrophils/100 WBC (Bld) 75.3 % High 47-70 [facility] Nucleated red blood cell per centageOrdered By: Shayla Gloria on 12-19-2024 Nucleated RBC/100 WBC (Bld) [Ratio] 0 % 0-5 [facility] Platelet countOrdered By: Na na Gloria on 12-19-2024 Platelets (Bld) [#/Vol] 237 10*3/uL 150-450 [facility] Potassium measurement (mass/ volume)Ordered By: Shayla Castro on 12-19-2024 Potassium (Unsp spec) [Mass/Vol] 4.2 mmol/L 3.3-5.1 [facility] RBC Auto (Bld) [#/Vol]Ordere d By: Shayla Castro on 12-19-2024 RBC (Bld) [#/Vol] 5.14 10*6/uL 4.2-5.4 [facility] Serum creatinine measurement (mass/volume)Ordered By: Shayla Castro on 12-19-2024 Creatinine [Mass/Vol] 0.72 mg/dL 0.70-1.20 [facility] Serum glucose measurement (m ass/volume)Ordered By: Shayla Castro on 12-19-2024 Glucose [Mass/Vol] 116 mg/dL High 70-99 [facility] Serum or plasma calcium bessie urement (mass/volume)Ordered By: Shayla Castro on 12-19-2024 Calcium [Mass/Vol] 9.6 mg/dL 7.6-11.0 [facility] Serum or plasma urea nitroge n measurement (mass/volume)Ordered By: Shayla Castro on 12-19-2024 Urea nitrogen [Mass/Vol] 15 mg/dL 4-19 [facility] Sodium levelOrdered By: Shayla Castro on 12-19-2024 Sodium [Moles/Vol] 139 mmol/L 133-145 [facility] Vancomycin, Trough Levelon 0 12-19-2024 VANCO, TROUGH 21.0 ug/mL High 5.0-15.0 [facility] Comment on above: Order Comment: Comme nts: Trough to be drawn 30 mins prior to scheduled [id number] Result Comment: Aris mmended goal trough ranges are generally 10-15 mcg/mlfor less severe/complicated infections such as cellulitisor UTI and 15-20 mcg/ml for more severe/complicatedinfections such as bacteremia/sepsis, osteomyelitis,pneumonia or meningitis. Goal trough ranges should takeinto account indication, patient-specific factors andorganism JOSE.VANCOMYCIN STANDARED DRUG THERAPY TROUGH LEVEL: 5.0 - 15.0 mg/LVANCOMYCIN HIGH INTENSITY THERAPY TROUGH LEVEL: 15.0 - 20.0 mg/LHigh Intensity therapy recommended for serious lifethreatening infections include:- Thimndjmun-Ezdtkzmooszo-Nkumyzsfq (Ventilator/Healtcare Associated)-SepsisPLEASE CONTACT PHARMACY SERVICES (#3134) FOR INTERPRETATIONOF RESULTS. Performed By: #### L 970.3207 ####[facility] [address] [place], [place], [address] White blood cell (WBC) count Ordered By: Shayla Castro on 12-19-2024 WBC (Bld) [#/Vol] 9.1 10*3/uL 4.4-11.0 [facility] Absolute lymphocyte countOrd ered By: Shayla Castro on 12-18-2024 Lymphocytes Auto (Unsp spec) [#/Vol] 1.51 10*3/uL 0.83-4.51 [facility] Absolute neutrophil countOrd ered By: Shaylavelasquez Castro on 12-18-2024 Neutrophils (Bld) [#/Vol] 6.4 10*3/uL 2.0-7.7 [facility] Anion gap in Serum or Plasma Ordered By: Shayla Castro on 12-18-2024 Anion gap [Moles/Vol] 11 mmol/L 12-16 [facility] Automated lymphocyte count a s percentage of total leukocytesOrdered By: Shaylavelasquez Castro on 12-18-2024 Lymphocytes/100 WBC Auto (Unsp spec) 17.3 % Low - [facility] BUN/creatinine ratioOrdered By: Shayla Castro on 12-18-2024 Urea nitrogen/Creatinine [Mass ratio] 18.9 mg/mg - [facility] Basic Metabolic Profile (BMP )on 12-18-2024 BUN/CRE 18.9 RATIO Normal 05-23 [facility] Comment on above: Performed By: #### L 100.0100, L500.2500 ####[facility] [address] [place], [address] Calcium [Mass/Vol] 9.6 mg/dL Normal 7.6-11.0 [facility] Comment on above: Performed By: #### L 100.0100, L500.2500 ####[facility] [address] [place], [address] Chloride [Moles/Vol] 106 mmol/L Normal 98-108 [facility] Comment on above: Performed By: #### L 100.0100, L500.2500 ####[facility] [address] [place], [address] CO2 [Moles/Vol] 22.2 mmol/L Normal 21.0-32.0 [facility] Comment on above: Performed By: #### L 100.0100, L500.2500 ####[facility] [address] [place], [address] Creatinine [Mass/Vol] 0.80 mg/dL Normal 0.70-1.20 [facility] Comment on above: Performed By: #### L 100.0100, L500.2500 ####[facility] [address] [place], [address] ECRCL 73.65 ml/min Normal 50-250 [facility] Comment on above: Performed By: #### L 100.0100, L500.2500 ####[facility] [address] [place], [address] GAP 11 Normal 5-15 [facility] Comment on above: Performed By: #### L 100.0100, L500.2500 ####[facility] [address] [place], [address] GFR/1.73 sq M.predicted among non-blacks MDRD (S/P/Bld) [Vol rate/Area] 78 mL/min/{1.73_m2} Normal >60 [facility] Comment on above: Result Comment: mL/m in/1.73m2 CKD-EPI Creatinine Equation (2020) Performed By: #### L 100.0100, L500.2500 ####[facility] [address] [place], [address] Glucose [Mass/Vol] 113 mg/dL High 70-99 [facility] Comment on above: Performed By: #### L 100.0100, L500.2500 ####[facility] [address] [place], [address] Potassium [Moles/Vol] 4.7 mmol/L Normal 3.3-5.1 [facility] Comment on above: Result Comment: Hemo lysis present, Results??could be affected.?? Performed By: #### L 100.0100, L500.2500 ####[facility] [address] [place], [address] Sodium [Moles/Vol] 139 mmol/L Normal 133-145 [facility] Comment on above: Performed By: #### L 100.0100, L500.2500 ####[facility] [address] [place], [address] Urea nitrogen [Mass/Vol] 15 mg/dL Normal 4-19 [facility] Comment on above: Performed By: #### L 100.0100, L500.2500 ####[facility] [address] [place], [address] Basophil percentageOrdered B y: Shayla Castro on 12-18-2024 Basophils/100 WBC (Bld) 0.6 % 0-1 [facility] Bedside Glucoseon 12-18-2024 FINGERSTICK GLU 107 mg/dL High 74-106 [facility] Comment on above: Result Comment: FRANCINE SKINNER OF PATIENT CARE PER NURSING PROTOCOL Performed By: #### L 501.080 ####[facility] [address], [address] FINGERSTICK GLU 160 mg/dL High 74-106 [facility] Comment on above: Result Comment: FRANCINE GEMENT OF PATIENT CARE PER NURSING PROTOCOL Performed By: #### L 501.080 ####[facility] [address] [place], [address] FINGERSTICK GLU 108 mg/dL High 74-106 [facility] Comment on above: Result Comment: FRANCINE GEMENT OF PATIENT CARE PER NURSING PROTOCOL Performed By: #### L 501.080 ####[facility] [address] [place], [address] CBC W/Diff, Automatedon 12-02 Absolute Lymph 1.51 X10 3/uL Normal 0.83-4.51 [facility] Comment on above: Performed By: #### L 100.0100, L500.2500 ####[facility] [address] [place], [address] Absolute Neut 6.4 X10 3/uL Normal 2.0-7.7 [facility] Comment on above: Performed By: #### L 100.0100, L500.2500 ####[facility] [address] [place], [address] Basophils/100 WBC (Bld) 0.6 % Normal 0-1 [facility] Comment on above: Performed By: #### L 100.0100, L500.2500 ####[facility] [address] [place], [address] Eosinophils/100 WBC (Bld) 1.7 % Normal 0-5 [facility] Comment on above: Performed By: #### L 100.0100, L500.2500 ####[facility] [address] [place], [address] Erythrocyte distribution width (RBC) [Ratio] 14.9 % High 11.6-14.6 [facility] Comment on above: Performed By: #### L 100.0100, L500.2500 ####[facility] [address] [place], [address] Hematocrit (Bld) [Volume fraction] 43.5 % Normal 37-47 [facility] Comment on above: Performed By: #### L 100.0100, L500.2500 ####[facility] [address] [place], [address] Hemoglobin (Bld) [Mass/Vol] 13.8 g/dL Normal 12.0-15.0 [facility] Comment on above: Performed By: #### L 100.0100, L500.2500 ####[facility] [address] [place], [address] IG% 0.300 Normal 0.0-0.9 [facility] Comment on above: Result Comment: IG% - Immature Granulocytes (promyelocytes, myelocytes andmetamyelocytes) > 1% indicates that a LEFT SHIFT is Present. Performed By: #### L 100.0100, L500.2500 ####[facility] [address] [place], [address] Lymphocytes/100 WBC (Bld) 17.3 % Low 19-41 [facility] Comment on above: Performed By: #### L 100.0100, L500.2500 ####[facility] [address] [place], [address] MCH (RBC) [Entitic mass] 28.2 pg Normal 27.0-32.0 [facility] Comment on above: Performed By: #### L 100.0100, L500.2500 ####[facility] [address] [place], [address] MCHC (RBC) [Mass/Vol] 31.7 g/dL Low 32-36 [facility] Comment on above: Performed By: #### L 100.0100, L500.2500 ####[facility] [address] [place], [address] MCV (RBC) [Entitic vol] 89.0 fL Normal 81-99 [facility] Comment on above: Performed By: #### L 100.0100, L500.2500 ####[facility] [address] [place], [address] Monocytes/100 WBC (Bld) 7.5 % Normal 0-10 [facility] Comment on above: Performed By: #### L 100.0100, L500.2500 ####[facility] [address] [place], [address] Neutrophils/100 WBC (Bld) 72.6 % High 47-70 [facility] Comment on above: Performed By: #### L 100.0100, L500.2500 ####[facility] [address] [place], [address] Nucleated RBC (Bld) [#/Vol] 0 10*3/uL Normal 0-5 [facility] Comment on above: Performed By: #### L 100.0100, L500.2500 ####[facility] [address] [place], [address] Platelet mean volume (Bld) [Entitic vol] 10.4 fL Normal 6.2-12.0 [facility] Comment on above: Performed By: #### L 100.0100, L500.2500 ####[facility] [address] [place], [address] Platelets (Bld) [#/Vol] 235 10*3/uL Normal 150-450 [facility] Comment on above: Performed By: #### L 100.0100, L500.2500 ####[facility] [address] [place], [address] RBC (Bld) [#/Vol] 4.89 10*6/uL Normal 4.2-5.4 [facility] Comment on above: Performed By: #### L 100.0100, L500.2500 ####[facility] [address] [place], [address] RDW SD 48.4 fl High 35.1-43.9 [facility] Comment on above: Performed By: #### L 100.0100, L500.2500 ####[facility] [address] [place], [address] WBC (Bld) [#/Vol] 8.8 10*3/uL Normal 4.4-11.0 [facility] Comment on above: Performed By: #### L 100.0100, L500.2500 ####[facility] [address] [place], [address] Carbon dioxide, total [Moles /volume] in Central venous bloodOrdered By: Shayla Castro on 12-18-2024 CO2 [Moles/Vol] 22.2 mmol/L 21.0-32.0 [facility] Chloride assayOrdered By: Zainab Castro on 12-18-2024 Chloride [Moles/Vol] 106 mmol/L 98-108 [facility] Eosinophil percentageOrdered By: Shayla Castro on 12-18-2024 Eosinophils/100 WBC (Bld) 1.7 % 0-5 [facility] Erythrocyte distribution wid th ratioOrdered By: Shayla Castro on 12-18-2024 Erythrocyte distribution width (RBC) [Ratio] 14.9 % High 11.6-14.6 [facility] Erythrocyte distribution wid th standard deviationOrdered By: Shayla Castro on 12-18-2024 Erythrocyte distribution width (RBC) [Ratio] 48.4 fl High 35.1-43.9 [facility] Glomerular filtration rate ( GFR) estimation/1.73 sq m using serum, plasma, or whole bOrdered By: Shayla Castro on 12-18-2024 GFR/1.73 sq M.predicted among non-blacks MDRD (S/P/Bld) [Vol rate/Area] 78 mL/min/{1.73_m2} >60 [facility] Comment on above: mL/min/1.73m2 CKD-EP I Creatinine Equation (2020) Glucose measurement at bedsi deOrdered By: Shayla Castro on 12-18-2024 Glucose [Mass/Vol] 107 mg/dL High 74-106 [facility] Comment on above: MANAGEMENT OF PATIEN T CARE PER NURSING PROTOCOL Hematocrit Auto (Bld) [Volum e fraction]Ordered By: Shayla Castro on 12-18-2024 Hematocrit (Bld) [Volume fraction] 43.5 % 37-47 [facility] Hemoglobin A1con 12-18-2024 HbA1c (Bld) [Mass fraction] 6.6 % High <=5.6 [facility] Comment on above: Result Comment: Norm al < 5.7 % Prediabetic 5.7 - 6.4 % Diabetic >or= 6.5 % Please note range changes. Performed By: #### L 501.9985 ####[facility] [address] [place], [address] Hemoglobin A1c percentageOrd ered By: Alejandro Baca on 12-18-2024 HbA1c (Bld) [Mass fraction] 6.6 % High <5.7 [facility] Comment on above: Normal < 5.7 % Predi abetic 5.7 - 6.4 % Diabetic >or= 6.5 % Please note range changes. Hemoglobin measurementOrdere d By: Shayla Castro on 12-18-2024 Hemoglobin (Bld) [Mass/Vol] 13.8 g/dL 12.0-15.0 [facility] Immature granulocytes/100 WB C Auto (Bld)Ordered By: Shayla Castro on 12-18-2024 Immature granulocytes/100 WBC (Bld) 0.300 % 0.0-0.9 [facility] Comment on above: IG% - Immature Granu locytes (promyelocytes, myelocytes and metamyelocytes) > 1% indicates that a LEFT SHIFT is Present. MCV (mean corpuscular volume ) determinationOrdered By: Shayla Castro on 12-18-2024 MCV (RBC) [Entitic vol] 89.0 fL 81-99 [facility] Mean corpuscular hemoglobin (MCH) determinationOrdered By: Shayla Castro on 12-18-2024 MCH (RBC) [Entitic mass] 28.2 pg 27.0-32.0 [facility] Mean corpuscular hemoglobin concentration (MCHC) determinationOrdered By: Shayla Castro on 12-18-2024 MCHC (RBC) [Mass/Vol] 31.7 g/dL Low 32-36 [facility] Mean platelet volume determi nationOrdered By: Shayla Castro on 12-18-2024 Platelet mean volume (Bld) [Entitic vol] 10.4 fL 6.2-12.0 [facility] Monocyte percentageOrdered B y: Shayla Castro on 12-18-2024 Monocytes/100 WBC (Bld) 7.5 % 0-10 [facility] Neutrophil percentageOrdered By: Shayla Castro on 12-18-2024 Neutrophils/100 WBC (Bld) 72.6 % High 47-70 [facility] Nucleated red blood cell per centageOrdered By: Shayla Castro on 12-18-2024 Nucleated RBC/100 WBC (Bld) [Ratio] 0 % 0-5 [facility] Platelet countOrdered By: Zainab Castro on 12-18-2024 Platelets (Bld) [#/Vol] 235 10*3/uL 150-450 [facility] Potassium measurement (mass/ volume)Ordered By: Shayla Castro on 12-18-2024 Potassium (Unsp spec) [Mass/Vol] 4.7 mmol/L 3.3-5.1 [facility] Comment on above: Hemolysis present, R esults could be affected. RBC Auto (Bld) [#/Vol]Ordere d By: Shayla Castro on 12-18-2024 RBC (Bld) [#/Vol] 4.89 10*6/uL 4.2-5.4 [facility] Serum creatinine measurement (mass/volume)Ordered By: Shayla Castro on 12-18-2024 Creatinine [Mass/Vol] 0.80 mg/dL 0.70-1.20 [facility] Serum glucose measurement (m ass/volume)Ordered By: Shayla Castro on 12-18-2024 Glucose [Mass/Vol] 113 mg/dL High 70-99 [facility] Serum or plasma calcium bessie urement (mass/volume)Ordered By: Shayla Castro on 12-18-2024 Calcium [Mass/Vol] 9.6 mg/dL 7.6-11.0 [facility] Serum or plasma urea nitroge n measurement (mass/volume)Ordered By: Shayla Castro on 12-18-2024 Urea nitrogen [Mass/Vol] 15 mg/dL 4-19 [facility] Sodium levelOrdered By: Shayla Castro on 12-18-2024 Sodium [Moles/Vol] 139 mmol/L 133-145 [facility] Trough vancomycin levelOrder ed By: Shayla Castro on 12-18-2024 Vancomycin trough [Mass/Vol] 21.0 ug/mL High 5.0-15.0 [facility] Comment on above: Recommended goal tro ugh ranges are generally 10-15 mcg/ml for less severe/complicated infections such as cellulitis or UTI and 15-20 mcg/ml for more severe/complicated infections such as bacteremia/sepsis, osteomyelitis, pneumonia or meningitis. Goal trough ranges should take into account indication, patient-specific factors and organism JOSE.VANCOMYCIN STANDARED DRUG THERAPY TROUGH LEVEL: 5.0 - 15.0 mg/L VANCOMYCIN HIGH INTENSITY THERAPY TROUGH LEVEL: 15.0 - 20.0 mg/L High Intensity therapy recommended for serious lifethreatening infections include:- Yyoznxsaxe-Fwsjvnnvcmyn-Gkxancfdn (Ventilator/Healtcare Associated)-Sepsis PLEASE CONTACT PHARMACY SERVICES (#[phone]) FOR INTERPRETATIONOF RESULTS. White blood cell (WBC) count Ordered By: Shayla Castro on 12-18-2024 WBC (Bld) [#/Vol] 8.8 10*3/uL 4.4-11.0 [facility] 12 Lead EKGon 12-17-2024 12 Lead EKG Normal [facility] Absolute lymphocyte countOrd ered By: Tang Mendiola on 12-17-2024 Lymphocytes Auto (Unsp spec) [#/Vol] 1.23 10*3/uL 0.83-4.51 [facility] Absolute neutrophil countOrd ered By: Tang Mendiola on 12-17-2024 Neutrophils (Bld) [#/Vol] 6.1 10*3/uL 2.0-7.7 [facility] Anion gap in Serum or Plasma Ordered By: Tang Mendiola on 12-17-2024 Anion gap [Moles/Vol] 10 mmol/L 5-15 [facility] Automated lymphocyte count a s percentage of total leukocytesOrdered By: Tang Mendiola on 12-17-2024 Lymphocytes/100 WBC Auto (Unsp spec) 14.9 % Low 19-41 [facility] BUN/creatinine ratioOrdered By: Tang Mendiola on 12-17-2024 Urea nitrogen/Creatinine [Mass ratio] 22.7 mg/mg High 10- [facility] Basic Metabolic Profile (BMP )on 12-17-2024 BUN/CRE 22.7 RATIO High - [facility] Comment on above: Performed By: #### L 100.0100, L501.6710, L101.9900, L500.2500 ####[facility] [address] [place], [address] Calcium [Mass/Vol] 9.6 mg/dL Normal 7.6-11.0 [facility] Comment on above: Performed By: #### L 100.0100, L501.6710, L101.9900, L500.2500 ####[facility] [address] [place], [address] Chloride [Moles/Vol] 102 mmol/L Normal 98-108 [facility] Comment on above: Performed By: #### L 100.0100, L501.6710, L101.9900, L500.2500 ####[facility] [address] [place], [address] CO2 [Moles/Vol] 24.6 mmol/L Normal 21.0-32.0 [facility] Comment on above: Performed By: #### L 100.0100, L501.6710, L101.9900, L500.2500 ####[facility] [address] [place], [address] Creatinine [Mass/Vol] 0.79 mg/dL Normal 0.70-1.20 [facility] Comment on above: Performed By: #### L 100.0100, L501.6710, L101.9900, L500.2500 ####[facility] [address] [place], [address] ECRCL 75.70 ml/min Normal 50-250 [facility] Comment on above: Performed By: #### L 100.0100, L501.6710, L101.9900, L500.2500 ####[facility] [address] [place], [address] GAP 10 Normal 5-15 [facility] Comment on above: Performed By: #### L 100.0100, L501.6710, L101.9900, L500.2500 ####[facility] [address] [place], [address] GFR/1.73 sq M.predicted among non-blacks MDRD (S/P/Bld) [Vol rate/Area] 80 mL/min/{1.73_m2} Normal >60 [facility] Comment on above: Result Comment: mL/m in/1.73m2 CKD-EPI Creatinine Equation (2020) Performed By: #### L 100.0100, L501.6710, L101.9900, L500.2500 ####[facility] [address] [place], [address] Glucose [Mass/Vol] 146 mg/dL High 70-99 [facility] Comment on above: Performed By: #### L 100.0100, L501.6710, L101.9900, L500.2500 ####[facility] [address] [place], [address] Potassium [Moles/Vol] 4.0 mmol/L Normal 3.3-5.1 [facility] Comment on above: Performed By: #### L 100.0100, L501.6710, L101.9900, L500.2500 ####[facility] [address] [place], [address] Sodium [Moles/Vol] 136 mmol/L Normal 133-145 [facility] Comment on above: Performed By: #### L 100.0100, L501.6710, L101.9900, L500.2500 ####[facility] [address] [place], [address] Urea nitrogen [Mass/Vol] 18 mg/dL Normal 4-19 [facility] Comment on above: Performed By: #### L 100.0100, L501.6710, L101.9900, L500.2500 ####[facility] [address] [place], [address] Basophil percentageOrdered B y: Tang Mendiola on 12-17-2024 Basophils/100 WBC (Bld) 0.6 % 0-1 [facility] Bedside Glucoseon 12-17-2024 FINGERSTICK GLU 125 mg/dL High 74-106 [facility] Comment on above: Result Comment: FRANCINE GEMENT OF PATIENT CARE PER NURSING PROTOCOL Performed By: #### L 501.080 ####[facility] [address] [place], [address] FINGERSTICK GLU 163 mg/dL High 74-106 [facility] Comment on above: Result Comment: FRANCINE GEMENT OF PATIENT CARE PER NURSING PROTOCOL Performed By: #### L 501.080 ####[facility] [address] [place], [address] CBC W/Diff, Automatedon - Absolute Lymph 1.23 X10 3/uL Normal 0.83-4.51 [facility] Comment on above: Performed By: #### L 100.0100, L501.6710, L101.9900, L500.2500 ####[facility] [address] [place], [address] Absolute Neut 6.1 X10 3/uL Normal 2.0-7.7 [facility] Comment on above: Performed By: #### L 100.0100, L501.6710, L101.9900, L500.2500 ####[facility] [address] [place], [address] Basophils/100 WBC (Bld) 0.6 % Normal 0-1 [facility] Comment on above: Performed By: #### L 100.0100, L501.6710, L101.9900, L500.2500 ####[facility] [address] [place], [address] Eosinophils/100 WBC (Bld) 1.1 % Normal 0-5 [facility] Comment on above: Performed By: #### L 100.0100, L501.6710, L101.9900, L500.2500 ####[facility] [address] [place], [address] Erythrocyte distribution width (RBC) [Ratio] 15.1 % High 11.6-14.6 [facility] Comment on above: Performed By: #### L 100.0100, L501.6710, L101.9900, L500.2500 ####[facility] [address] [place], [address] Hematocrit (Bld) [Volume fraction] 43.0 % Normal 37-47 [facility] Comment on above: Performed By: #### L 100.0100, L501.6710, L101.9900, L500.2500 ####[facility] [address] [place], [address] Hemoglobin (Bld) [Mass/Vol] 13.9 g/dL Normal 12.0-15.0 [facility] Comment on above: Performed By: #### L 100.0100, L501.6710, L101.9900, L500.2500 ####[facility] [address] [place], [address] IG% 0.500 Normal 0.0-0.9 [facility] Comment on above: Result Comment: IG% - Immature Granulocytes (promyelocytes, myelocytes andmetamyelocytes) > 1% indicates that a LEFT SHIFT is Present. Performed By: #### L 100.0100, L501.6710, L101.9900, L500.2500 ####[facility] [address] [place], [address] Lymphocytes/100 WBC (Bld) 14.9 % Low 19-41 [facility] Comment on above: Performed By: #### L 100.0100, L501.6710, L101.9900, L500.2500 ####[facility] [address] [place], [address] MCH (RBC) [Entitic mass] 28.3 pg Normal 27.0-32.0 [facility] Comment on above: Performed By: #### L 100.0100, L501.6710, L101.9900, L500.2500 ####[facility] [address] [place], [address] MCHC (RBC) [Mass/Vol] 32.3 g/dL Normal 32-36 [facility] Comment on above: Performed By: #### L 100.0100, L501.6710, L101.9900, L500.2500 ####[facility] [address] [place], [address] MCV (RBC) [Entitic vol] 87.4 fL Normal 81-99 [facility] Comment on above: Performed By: #### L 100.0100, L501.6710, L101.9900, L500.2500 ####[facility] [address] [place], [address] Monocytes/100 WBC (Bld) 8.6 % Normal 0-10 [facility] Comment on above: Performed By: #### L 100.0100, L501.6710, L101.9900, L500.2500 ####[facility] [address] [place], [address] Neutrophils/100 WBC (Bld) 74.3 % High 47-70 [facility] Comment on above: Performed By: #### L 100.0100, L501.6710, L101.9900, L500.2500 ####[facility] [address] [place], [address] Nucleated RBC (Bld) [#/Vol] 0 10*3/uL Normal 0-5 [facility] Comment on above: Performed By: #### L 100.0100, L501.6710, L101.9900, L500.2500 ####[facility] [address] [place], [address] Platelet mean volume (Bld) [Entitic vol] 10.2 fL Normal 6.2-12.0 [facility] Comment on above: Performed By: #### L 100.0100, L501.6710, L101.9900, L500.2500 ####[facility] [address] [place], [address] Platelets (Bld) [#/Vol] 227 10*3/uL Normal 150-450 [facility] Comment on above: Performed By: #### L 100.0100, L501.6710, L101.9900, L500.2500 ####[facility] [address] [place], [address] RBC (Bld) [#/Vol] 4.92 10*6/uL Normal 4.2-5.4 [facility] Comment on above: Performed By: #### L 100.0100, L501.6710, L101.9900, L500.2500 ####[facility] [address] [place], [address] RDW SD 48.6 fl High 35.1-43.9 [facility] Comment on above: Performed By: #### L 100.0100, L501.6710, L101.9900, L500.2500 ####[facility] [address] [place], [address] WBC (Bld) [#/Vol] 8.2 10*3/uL Normal 4.4-11.0 [facility] Comment on above: Performed By: #### L 100.0100, L501.6710, L101.9900, L500.2500 ####[facility] [address] [place], [address] CRPon 12-17-2024 C-REACTIVE PROT 32.40 mg/L High 0.0-3.0 [facility] Comment on above: Performed By: #### L 100.0100, L501.6710, L101.9900, L500.2500 ####[facility] [address] [place], [address] Carbon dioxide, total [Moles /volume] in Central venous bloodOrdered By: Tang Mendiola on 12-17-2024 CO2 [Moles/Vol] 24.6 mmol/L 21.0-32.0 [facility] Chloride assayOrdered By: Erasmo Mendiola on 12-17-2024 Chloride [Moles/Vol] 102 mmol/L 98-108 [facility] Consultation - Surgicalon Consultation - Surgical Normal [facility] Emergency Department Summary on 12-17-2024 Emergency Department Summary Normal [facility] Eosinophil percentageOrdered By: Tang Mendiola on 12-17-2024 Eosinophils/100 WBC (Bld) 1.1 % 0-5 [facility] Erythrocyte Sed Rateon 12-17 SED RATE 48 mm/hr High 0-30 [facility] Comment on above: Performed By: #### L 100.0100, L501.6710, L101.9900, L500.2500 ####[facility] [address] [place], [address] Erythrocyte distribution wid th ratioOrdered By: Tang Mendiola on 12-17-2024 Erythrocyte distribution width (RBC) [Ratio] 15.1 % High 11.6-14.6 [facility] Erythrocyte distribution wid th standard deviationOrdered By: Tang Mendiola on 12-17-2024 Erythrocyte distribution width (RBC) [Ratio] 48.6 fl High 35.1-43.9 [facility] Erythrocyte sedimentation ra teOrdered By: Tang Mendiola on 12-17-2024 ESR (Bld) [Velocity] 48 mm/h High 0-30 [facility] Glomerular filtration rate ( GFR) estimation/1.73 sq m using serum, plasma, or whole bOrdered By: Tang Mendiola on 12-17-2024 GFR/1.73 sq M.predicted among non-blacks MDRD (S/P/Bld) [Vol rate/Area] 80 mL/min/{1.73_m2} >60 [facility] Comment on above: mL/min/1.73m2 CKD-EP I Creatinine Equation (2020) H AND P Exam - Hospitaliston 12-17-2024 H&P Exam - Hospitalist Normal [facility] Hematocrit Auto (Bld) [Volum e fraction]Ordered By: Tang Mendiola on 12-17-2024 Hematocrit (Bld) [Volume fraction] 43.0 % 37-47 [facility] Hemoglobin measurementOrdere d By: Tang Mendiola on 12-17-2024 Hemoglobin (Bld) [Mass/Vol] 13.9 g/dL 12.0-15.0 [facility] Immature granulocytes/100 WB C Auto (Bld)Ordered By: Tang Mendiola on 12-17-2024 Immature granulocytes/100 WBC (Bld) 0.500 % 0.0-0.9 [facility] Comment on above: IG% - Immature Granu locytes (promyelocytes, myelocytes and metamyelocytes) > 1% indicates that a LEFT SHIFT is Present. MCV (mean corpuscular volume ) determinationOrdered By: Tang Mendiola on 12-17-2024 MCV (RBC) [Entitic vol] 87.4 fL 81-99 [facility] Mean corpuscular hemoglobin (MCH) determinationOrdered By: Tang Mendiola on 12-17-2024 MCH (RBC) [Entitic mass] 28.3 pg 27.0-32.0 [facility] Mean corpuscular hemoglobin concentration (MCHC) determinationOrdered By: Tang Mendiola on 12-17-2024 MCHC (RBC) [Mass/Vol] 32.3 g/dL 32-36 [facility] Mean platelet volume determi nationOrdered By: Tang Mendiola on 12-17-2024 Platelet mean volume (Bld) [Entitic vol] 10.2 fL 6.2-12.0 [facility] Monocyte percentageOrdered B y: Tang Mendiola on 12-17-2024 Monocytes/100 WBC (Bld) 8.6 % 0-10 [facility] Neutrophil percentageOrdered By: Tang Mendiola on 12-17-2024 Neutrophils/100 WBC (Bld) 74.3 % High 47-70 [facility] Nucleated red blood cell per centageOrdered By: Tang Mendiola on 12-17-2024 Nucleated RBC/100 WBC (Bld) [Ratio] 0 % 0-5 [facility] Platelet countOrdered By: Erasmo Mendiola on 12-17-2024 Platelets (Bld) [#/Vol] 227 10*3/uL 150-450 [facility] Potassium measurement (mass/ volume)Ordered By: Tang Mendiola on 12-17-2024 Potassium (Unsp spec) [Mass/Vol] 4.0 mmol/L 3.3-5.1 [facility] RBC Auto (Bld) [#/Vol]Ordere d By: Tang Mendiola on 12-17-2024 RBC (Bld) [#/Vol] 4.92 10*6/uL 4.2-5.4 [facility] Serum creatinine measurement (mass/volume)Ordered By: Tang Mendiola on 12-17-2024 Creatinine [Mass/Vol] 0.79 mg/dL 0.70-1.20 [facility] Serum glucose measurement (m ass/volume)Ordered By: Tang Mendiola on 12-17-2024 Glucose [Mass/Vol] 146 mg/dL High 70-99 [facility] Serum or plasma C reactive p rotein measurement (mass/volume)Ordered By: Tang Mendiola on 12-17-2024 CRP [Mass/Vol] 32.40 mg/L High 0.0-3.0 [facility] Serum or plasma calcium bessie urement (mass/volume)Ordered By: Tang Mendiola on 12-17-2024 Calcium [Mass/Vol] 9.6 mg/dL 7.6-11.0 [facility] Serum or plasma urea nitroge n measurement (mass/volume)Ordered By: Tang Mendiola on 12-17-2024 Urea nitrogen [Mass/Vol] 18 mg/dL 4-19 [facility] Serum or plasma uric acid me asurement (mass/volume)Ordered By: Shayla Castro on 12-17-2024 Urate [Mass/Vol] 5.2 mg/dL 2.6-6.0 [facility] Comment on above: The drugs N-Acetylcy steine and Metamizole may falsely depress this assay. Sodium levelOrdered By: Tang Mendiola on 12-17-2024 Sodium [Moles/Vol] 136 mmol/L 133-145 [facility] Uric Acidon 12-17-2024 URIC 5.2 mg/dL Normal 2.6-6.0 [facility] Comment on above: Result Comment: The drugs N-Acetylcysteine and Metamizole may falselydepress this assay. Performed By: #### L 501.1400 ####[facility] [address] [place], [address] White blood cell (WBC) count Ordered By: Tang Mendiola on 12-17-2024 WBC (Bld) [#/Vol] 8.2 10*3/uL 4.4-11.0 [facility] Wrist min 3 Viewson 12-18-19 25 Wrist min 3 Views Normal [facility] Oncology Visit Reporton Oncology Visit Report Normal [facility] Neurology Visit Reporton Neurology Visit Report Normal [facility] Surgery Visit Reporton 12-07 Surgery Visit Report Normal [facility] SP/HP.SP.Ed 11-30-2024 SP/HP.SP.EV Normal [facility] Bedside Glucoseon 11-26-2024 FINGERSTICK GLU 146 mg/dL High 74-106 [facility] Comment on above: Result Comment: FRANCINE GEMENT OF PATIENT CARE PER NURSING PROTOCOL Performed By: #### L 501.080 ####[facility] [address] [place], [address] FINGERSTICK GLU 151 mg/dL High 74-106 [facility] Comment on above: Result Comment: FRANCINE GEMENT OF PATIENT CARE PER NURSING PROTOCOL Performed By: #### L 501.080 ####[facility] [address] [facility] [address] [facility] deOrdered By: Ada Soliman on 11-26-2024 Glucose [Mass/Vol] 146 mg/dL High 74-106 [facility] Comment on above: MANAGEMENT OF PATIEN T CARE PER NURSING PROTOCOL Bedside Glucoseon 11-25-2024 FINGERSTICK GLU 109 mg/dL High 74-106 [facility] Comment on above: Result Comment: FRANCINE GEMENT OF PATIENT CARE PER NURSING PROTOCOL Performed By: #### L 501.080 ####[facility] [address] [place], [address] FINGERSTICK GLU 134 mg/dL High -[address] [place] [address] Comment on above: Result Comment: FRANCINE GEMENT OF PATIENT CARE PER NURSING PROTOCOL Performed By: #### L 501.080 ####[facility] [address] [facility] [address] Discharge Instructionon -2 Discharge Instruction Normal [facility] Bedside Glucoseon 11-24-2024 FINGERSTICK GLU 142 mg/dL High -106 [facility] Comment on above: Result Comment: FRANCINE GEMENT OF PATIENT CARE PER NURSING PROTOCOL Performed By: #### L 501.080 ####[facility] [address] [place], [address] FINGERSTICK GLU 123 mg/dL High 74-106 [facility] Comment on above: Result Comment: FRANCINE GEMENT OF PATIENT CARE PER NURSING PROTOCOL Performed By: #### L 501.080 ####[facility] [address] [place], [address] Absolute lymphocyte countOrd ered By: Ada Soliman on 11-23-2024 Lymphocytes Auto (Unsp spec) [#/Vol] 2.14 10*3/uL 0.83-4.51 [facility] Absolute neutrophil countOrd ered By: Ada Soliman on 11-23-2024 Neutrophils (Bld) [#/Vol] 5.8 10*3/uL 2.0-7.7 [facility] Anion gap in Serum or Plasma Ordered By: Ada Rowlandstacie on 11-23-2024 Anion gap [Moles/Vol] 12 mmol/L 5-15 [facility] Automated lymphocyte count a s percentage of total leukocytesOrdered By: Ada Soliman on 11-23-2024 Lymphocytes/100 WBC Auto (Unsp spec) 24.4 % 19-41 [facility] BUN/creatinine ratioOrdered By: Ada Soliman on 11-23-2024 Urea nitrogen/Creatinine [Mass ratio] 23.8 mg/mg High 10-20 [facility] Basophil percentageOrdered B y: Ada Soliman on 11-23-2024 Basophils/100 WBC (Bld) 0.6 % 0-1 [facility] Bedside Glucoseon 11-23-2024 FINGERSTICK GLU 132 mg/dL High 74-106 [facility] Comment on above: Result Comment: FRANCINE GEMENT OF PATIENT CARE PER NURSING PROTOCOL Performed By: #### L 501.080 ####[facility] [address] [place], [address] FINGERSTICK GLU 123 mg/dL High 74-106 [facility] Comment on above: Result Comment: FRANCINE GEMENT OF PATIENT CARE PER NURSING PROTOCOL Performed By: #### L 501.080 ####[facility] [address] [place], [address] Bilirubin, totalOrdered By: Ada Rowlandstacie on 11-23-2024 Bilirubin [Mass/Vol] 0.42 mg/dL 0.00-1.30 [facility] CBC W/Diff, Automatedon 04-2 Absolute Lymph 2.14 X10 3/uL Normal 0.83-4.51 [facility] Comment on above: Performed By: #### L 501.5200, L100.0100, L501.2300, L500.4050 ####[facility] [address] [place], [address] Absolute Neut 5.8 X10 3/uL Normal 2.0-7.7 [facility] Comment on above: Performed By: #### L 501.5200, L100.0100, L501.2300, L500.4050 ####[facility] [address] [place], [address] Basophils/100 WBC (Bld) 0.6 % Normal 0-1 [facility] Comment on above: Performed By: #### L 501.5200, L100.0100, L501.2300, L500.4050 ####[facility] [address] [place], [address] Eosinophils/100 WBC (Bld) 1.4 % Normal 0-5 [facility] Comment on above: Performed By: #### L 501.5200, L100.0100, L501.2300, L500.4050 ####[facility] [address] [place], [address] Erythrocyte distribution width (RBC) [Ratio] 15.3 % High 11.6-14.6 [facility] Comment on above: Performed By: #### L 501.5200, L100.0100, L501.2300, L500.4050 ####[facility] [address] [place], [address] Hematocrit (Bld) [Volume fraction] 45.2 % Normal 37-47 [facility] Comment on above: Performed By: #### L 501.5200, L100.0100, L501.2300, L500.4050 ####[facility] [address] [place], [address] Hemoglobin (Bld) [Mass/Vol] 14.4 g/dL Normal 12.0-15.0 [facility] Comment on above: Performed By: #### L 501.5200, L100.0100, L501.2300, L500.4050 ####[facility] [address] [place], [address] IG% 0.300 Normal 0.0-0.9 [facility] Comment on above: Result Comment: IG% - Immature Granulocytes (promyelocytes, myelocytes andmetamyelocytes) > 1% indicates that a LEFT SHIFT is Present. Performed By: #### L 501.5200, L100.0100, L501.2300, L500.4050 ####[facility] [address] [place], [address] Lymphocytes/100 WBC (Bld) 24.4 % Normal 19-41 [facility] Comment on above: Performed By: #### L 501.5200, L100.0100, L501.2300, L500.4050 ####[facility] [address] [place], [address] MCH (RBC) [Entitic mass] 28.2 pg Normal 27.0-32.0 [facility] Comment on above: Performed By: #### L 501.5200, L100.0100, L501.2300, L500.4050 ####[facility] [address] [place], [address] MCHC (RBC) [Mass/Vol] 31.9 g/dL Low 32-36 [facility] Comment on above: Performed By: #### L 501.5200, L100.0100, L501.2300, L500.4050 ####[facility] [address] [place], [address] MCV (RBC) [Entitic vol] 88.5 fL Normal 81-99 [facility] Comment on above: Performed By: #### L 501.5200, L100.0100, L501.2300, L500.4050 ####[facility] [address] [place], [address] Monocytes/100 WBC (Bld) 6.7 % Normal 0-10 [facility] Comment on above: Performed By: #### L 501.5200, L100.0100, L501.2300, L500.4050 ####[facility] [address] [place], [id number] Neutrophils/100 WBC (Bld) 66.6 % Normal 47-70 [facility] Comment on above: Performed By: #### L 501.5200, L100.0100, L501.2300, L500.4050 ####[facility] [address] [place], [address] Nucleated RBC (Bld) [#/Vol] 0 10*3/uL Normal 0-5 [facility] Comment on above: Performed By: #### L 501.5200, L100.0100, L501.2300, L500.4050 ####[facility] [address] [place], [address] Platelet mean volume (Bld) [Entitic vol] 9.9 fL Normal 6.2-12.0 [facility] Comment on above: Performed By: #### L 501.5200, L100.0100, L501.2300, L500.4050 ####[facility] [address] [place], [address] Platelets (Bld) [#/Vol] 264 10*3/uL Normal 150-450 [facility] Comment on above: Performed By: #### L 501.5200, L100.0100, L501.2300, L500.4050 ####[facility] [address] [place], [address] RBC (Bld) [#/Vol] 5.11 10*6/uL Normal 4.2-5.4 [facility] Comment on above: Performed By: #### L 501.5200, L100.0100, L501.2300, L500.4050 ####[facility] [address] [place], [address] RDW SD 48.8 fl High 35.1-43.9 [facility] Comment on above: Performed By: #### L 501.5200, L100.0100, L501.2300, L500.4050 ####[facility] [address] [place], [address] WBC (Bld) [#/Vol] 8.8 10*3/uL Normal 4.4-11.0 [facility] Comment on above: Performed By: #### L 501.5200, L100.0100, L501.2300, L500.4050 ####[facility] [address] [place], [address] Carbon dioxide, total [Moles /volume] in Central venous bloodOrdered By: Ada Soliman on 11-23-2024 CO2 [Moles/Vol] 20.8 mmol/L Low 21.0-32.0 [facility] Chloride assayOrdered By: Mary Lou Soliman on 11-23-2024 Chloride [Moles/Vol] 105 mmol/L 98-108 [facility] Comprehensive Metabolic Prof ilon 11-23-2024 Albumin [Mass/Vol] 3.9 g/dL Normal 3.4-4.8 [facility] Comment on above: Performed By: #### L 501.5200, L100.0100, L501.2300, L500.4050 ####[facility] [address] [place], [address] Albumin/Globulin [Mass ratio] 1.1 {ratio} Normal 0.9-2.4 [facility] Comment on above: Performed By: #### L 501.5200, L100.0100, L501.2300, L500.4050 ####[facility] [address] [place], [address] ALK PHOS 91 U/L Normal 35-104 [facility] Comment on above: Performed By: #### L 501.5200, L100.0100, L501.2300, L500.4050 ####[facility] [address] [place], [address] ALT [Catalytic activity/Vol] 15 U/L Normal <=34 [facility] Comment on above: Performed By: #### L 501.5200, L100.0100, L501.2300, L500.4050 ####[facility] [address] [place], [address] AST [Catalytic activity/Vol] 25 U/L Normal <=31 [facility] Comment on above: Performed By: #### L 501.5200, L100.0100, L501.2300, L500.4050 ####[facility] [address] [place], [address] Bilirubin [Mass/Vol] 0.42 mg/dL Normal 0.00-1.30 [facility] Comment on above: Performed By: #### L 501.5200, L100.0100, L501.2300, L500.4050 ####[facility] [address] [place], [address] BUN/CRE 23.8 RATIO High 10-20 [facility] Comment on above: Performed By: #### L 501.5200, L100.0100, L501.2300, L500.4050 ####[facility] [address] [place], [address] Calcium [Mass/Vol] 9.7 mg/dL Normal 7.6-11.0 [facility] Comment on above: Performed By: #### L 501.5200, L100.0100, L501.2300, L500.4050 ####[facility] [address] [place], [address] Chloride [Moles/Vol] 105 mmol/L Normal 98-108 [facility] Comment on above: Performed By: #### L 501.5200, L100.0100, L501.2300, L500.4050 ####[facility] [address] [place], [address] CO2 [Moles/Vol] 20.8 mmol/L Low 21.0-32.0 [facility] Comment on above: Performed By: #### L 501.5200, L100.0100, L501.2300, L500.4050 ####[facility] [address] [place], [address] Creatinine [Mass/Vol] 0.82 mg/dL Normal 0.70-1.20 [facility] Comment on above: Performed By: #### L 501.5200, L100.0100, L501.2300, L500.4050 ####[facility] [address] [place], [address] ECRCL 74.17 ml/min Normal 50-250 [facility] Comment on above: Performed By: #### L 501.5200, L100.0100, L501.2300, L500.4050 ####[facility] [address] [place], [address] GAP 12 Normal 5-15 [facility] Comment on above: Performed By: #### L 501.5200, L100.0100, L501.2300, L500.4050 ####[facility] [address] [place], [address] GFR/1.73 sq M.predicted among non-blacks MDRD (S/P/Bld) [Vol rate/Area] 76 mL/min/{1.73_m2} Normal >60 [facility] Comment on above: Result Comment: mL/m in/1.73m2 CKD-EPI Creatinine Equation (2020) Performed By: #### L 501.5200, L100.0100, L501.2300, L500.4050 ####[facility] [address] [place], [address] Globulin (S) [Mass/Vol] 3.5 g/dL Normal 2.2-4.2 [facility] Comment on above: Performed By: #### L 501.5200, L100.0100, L501.2300, L500.4050 ####[facility] [address] [place], [address] Glucose [Mass/Vol] 132 mg/dL High 70-99 [facility] Comment on above: Performed By: #### L 501.5200, L100.0100, L501.2300, L500.4050 ####[facility] [address] [place], [address] Potassium [Moles/Vol] 4.2 mmol/L Normal 3.3-5.1 [facility] Comment on above: Performed By: #### L 501.5200, L100.0100, L501.2300, L500.4050 ####[facility] [address] [place], [address] Sodium [Moles/Vol] 137 mmol/L Normal 133-145 [facility] Comment on above: Performed By: #### L 501.5200, L100.0100, L501.2300, L500.4050 ####[facility] [address] [place], [address] T PROT 7.4 g/dL Normal 5.9-8.4 [facility] Comment on above: Performed By: #### L 501.5200, L100.0100, L501.2300, L500.4050 ####[facility] [address] [place], [address] Urea nitrogen [Mass/Vol] 20 mg/dL High 4-19 [facility] Comment on above: Performed By: #### L 501.5200, L100.0100, L501.2300, L500.4050 ####[facility] [address] [place], [address] Eosinophil percentageOrdered By: Ada Soliman on 11-23-2024 Eosinophils/100 WBC (Bld) 1.4 % 0-5 [facility] Erythrocyte distribution wid th ratioOrdered By: Ada Soliman on 11-23-2024 Erythrocyte distribution width (RBC) [Ratio] 15.3 % High 11.6-14.6 [facility] Erythrocyte distribution wid th standard deviationOrdered By: Ada Soliman on 11-23-2024 Erythrocyte distribution width (RBC) [Ratio] 48.8 fl High 35.1-43.9 [facility] Glomerular filtration rate ( GFR) estimation/1.73 sq m using serum, plasma, or whole bOrdered By: Ada Soliman on 11-23-2024 GFR/1.73 sq M.predicted among non-blacks MDRD (S/P/Bld) [Vol rate/Area] 76 mL/min/{1.73_m2} >60 [facility] Comment on above: mL/min/1.73m2 CKD-EP I Creatinine Equation (2020) Hematocrit Auto (Bld) [Volum e fraction]Ordered By: Ada Soliman on 11-23-2024 Hematocrit (Bld) [Volume fraction] 45.2 % 37-47 [facility] Hemoglobin measurementOrdere d By: Ada Soliman on 11-23-2024 Hemoglobin (Bld) [Mass/Vol] 14.4 g/dL 12.0-15.0 [facility] Immature granulocytes/100 WB C Auto (Bld)Ordered By: Ada Janny on 11-23-2024 Immature granulocytes/100 WBC (Bld) 0.300 % 0.0-0.9 [facility] Comment on above: IG% - Immature Granu locytes (promyelocytes, myelocytes and metamyelocytes) > 1% indicates that a LEFT SHIFT is Present. Laboratory - Chemistry and C hemistry - challengeOrdered By: Ada Soliman on 11-23-2024 AST [Catalytic activity/Vol] 25 U/L <32 [facility] MCV (mean corpuscular volume ) determinationOrdered By: Ada Soliman on 11-23-2024 MCV (RBC) [Entitic vol] 88.5 fL 81-99 [facility] Magnesiumon 11-23-2024 Magnesium [Mass/Vol] 2.1 mg/dL Normal 1.5-2.2 [facility] Comment on above: Performed By: #### L 501.5200, L100.0100, L501.2300, L500.4050 ####[facility] [address] [place], [place], [id number] Magnesium measurement (mass/ volume)Ordered By: Ada Janny on 11-23-2024 Magnesium (Unsp spec) [Mass/Vol] 2.1 mg/dL 1.5-2.2 [facility] Mean corpuscular hemoglobin (MCH) determinationOrdered By: Ada Soliman on 11-23-2024 MCH (RBC) [Entitic mass] 28.2 pg 27.0-32.0 [facility] Mean corpuscular hemoglobin concentration (MCHC) determinationOrdered By: Ada Soliman on 11-23-2024 MCHC (RBC) [Mass/Vol] 31.9 g/dL Low 32-36 [facility] Mean platelet volume determi nationOrdered By: Ada Soliman on 11-23-2024 Platelet mean volume (Bld) [Entitic vol] 9.9 fL 6.2-12.0 [facility] Monocyte percentageOrdered B y: Ada Soliman on 11-23-2024 Monocytes/100 WBC (Bld) 6.7 % 0-10 [facility] Neutrophil percentageOrdered By: Ada Soliman on 11-23-2024 Neutrophils/100 WBC (Bld) 66.6 % 47-70 [facility] Nucleated red blood cell per centageOrdered By: Ada Soliman on 11-23-2024 Nucleated RBC/100 WBC (Bld) [Ratio] 0 % 0-5 [facility] Phosphoruson 11-23-2024 Phosphate [Mass/Vol] 3.2 mg/dL Normal 2.7-4.5 [facility] Comment on above: Performed By: #### L 501.5200, L100.0100, L501.2300, L500.4050 ####[facility] [address] [place], [place], [address] Platelet countOrdered By: Mary Lou Soliman on 11-23-2024 Platelets (Bld) [#/Vol] 264 10*3/uL 150-450 [facility] Potassium measurement (mass/ volume)Ordered By: Ada Soliman on 11-23-2024 Potassium (Unsp spec) [Mass/Vol] 4.2 mmol/L 3.3-5.1 [facility] RBC Auto (Bld) [#/Vol]Ordere d By: Ada Soliman on 11-23-2024 RBC (Bld) [#/Vol] 5.11 10*6/uL 4.2-5.4 [facility] Serum creatinine measurement (mass/volume)Ordered By: Ada Soliman on 11-23-2024 Creatinine [Mass/Vol] 0.82 mg/dL 0.70-1.20 [facility] Serum globulin measurementOr dered By: Ada Soliman on 11-23-2024 Globulin (S) [Mass/Vol] 3.5 g/dL 2.2-4.2 [facility] Serum glucose measurement (m ass/volume)Ordered By: Ada Soliman on 11-23-2024 Glucose [Mass/Vol] 132 mg/dL High 70-99 [facility] Serum or plasma alanine herrera otransferase (ALT) measurementOrdered By: Ada Soliman on 11-23-2024 ALT [Catalytic activity/Vol] 15 U/L <35 [facility] Serum or plasma albumin bessie urement (mass/volume)Ordered By: Ada Rowlandstacie on 11-23-2024 Albumin [Mass/Vol] 3.9 g/dL 3.4-4.8 [facility] Serum or plasma albumin/glob ulin mass ratioOrdered By: Ada Rowlandstacie on 11-23-2024 Albumin/Globulin [Mass ratio] 1.1 {ratio} 0.9-2.4 [facility] Serum or plasma alkaline gloria sphatase measurementOrdered By: Ada Rowlandstacie on 11-23-2024 ALP [Catalytic activity/Vol] 91 U/L 35-104 [facility] Serum or plasma calcium bessie urement (mass/volume)Ordered By: Ada Rowlandstacie on 11-23-2024 Calcium [Mass/Vol] 9.7 mg/dL 7.6-11.0 [facility] Serum or plasma urea nitroge n measurement (mass/volume)Ordered By: Ada Rowlandstacie on 11-23-2024 Urea nitrogen [Mass/Vol] 20 mg/dL High 4-19 [facility] Sodium levelOrdered By: Ada Rowlandstacie on 11-23-2024 Sodium [Moles/Vol] 137 mmol/L 133-145 [facility] Total proteinOrdered By: Nadege mesa Janny on 11-23-2024 Protein [Mass/Vol] 7.4 g/dL 5.9-8.4 [facility] White blood cell (WBC) count Ordered By: Ada Rowlandstacie on 11-23-2024 WBC (Bld) [#/Vol] 8.8 10*3/uL 4.4-11.0 [facility] Bedside Glucoseon 11-22-2024 FINGERSTICK GLU 172 mg/dL High 74-106 [facility] Comment on above: Result Comment: FRANCINE GEMENT OF PATIENT CARE PER NURSING PROTOCOL Performed By: #### L 501.080 ####[facility] [address] [place], [place], [address] FINGERSTICK GLU 127 mg/dL High 74-106 [facility] Comment on above: Result Comment: FRANCINE GEMENT OF PATIENT CARE PER NURSING PROTOCOL Performed By: #### L 501.080 ####[facility] [address] [place], [address] Bedside Glucoseon 11-21-2024 FINGERSTICK GLU 114 mg/dL High 74-106 [facility] Comment on above: Result Comment: FRANCINE GEMENT OF PATIENT CARE PER NURSING PROTOCOL Performed By: #### L 501.080 ####[facility] [address] [place], [address] FINGERSTICK GLU 115 mg/dL High 74-106 [facility] Comment on above: Result Comment: FRANCINE GEMENT OF PATIENT CARE PER NURSING PROTOCOL Performed By: #### L 501.080 ####[facility] [address] [place], [address] Bedside Glucoseon 11-20-2024 FINGERSTICK GLU 118 mg/dL High -106 [facility] Comment on above: Result Comment: FRANCINE GEMENT OF PATIENT CARE PER NURSING PROTOCOL Performed By: #### L 501.080 ####[facility] [address] [place], [address] FINGERSTICK GLU 139 mg/dL High -106 [facility] Comment on above: Result Comment: FRANCINE GEMENT OF PATIENT CARE PER NURSING PROTOCOL Performed By: #### L 501.080 ####[facility] [address] [place], [address] Carcinoembryonic Antigenon 0 11-20-2024 CEA 4.6 ng/mL Normal 0.0-4.7 [facility] Comment on above: Result Comment: Nons mokers <3.9 Smokers <5.6[employer] Electrochemiluminescence Immunoassay(ECLIA)Values obtained with different assay methods or kitscannot be used interchangeably. Results cannot beinterpreted as absolute evidence of the presence orabsence of malignant disease.Performed at: [address] [id number] Director: Taiwo Quintero PhD, Phone: [phone] Performed By: #### L 3100.2300, L100.0600, L501.2300, L500.2500, L501.9520 ####[facility] [address] [place], [address] Basic Metabolic Profile (BMP )on 11-19-2024 BUN/CRE 22.8 RATIO High 10-20 [facility] Comment on above: Performed By: #### L 3100.2300, L100.0600, L501.2300, L500.2500, L501.9520 ####[facility] [address] [place], [address] Calcium [Mass/Vol] 9.5 mg/dL Normal 7.6-11.0 [facility] Comment on above: Performed By: #### L 3100.2300, L100.0600, L501.2300, L500.2500, L501.9520 ####[facility] [address] [place], [address] Chloride [Moles/Vol] 100 mmol/L Normal 98-108 [facility] Comment on above: Performed By: #### L 3100.2300, L100.0600, L501.2300, L500.2500, L501.9520 ####[facility] [address] [place], [address] CO2 [Moles/Vol] 21.3 mmol/L Normal 21.0-32.0 [facility] Comment on above: Performed By: #### L 3100.2300, L100.0600, L501.2300, L500.2500, L501.9520 ####[facility] [address] [place], [address] Creatinine [Mass/Vol] 0.89 mg/dL Normal 0.70-1.20 [facility] Comment on above: Performed By: #### L 3100.2300, L100.0600, L501.2300, L500.2500, L501.9520 ####[facility] [address] [place], [address] ECRCL 68.73 ml/min Normal 50-250 [facility] Comment on above: Performed By: #### L 3100.2300, L100.0600, L501.2300, L500.2500, L501.9520 ####[facility] [address] [place], [address] GAP 12 Normal 5-15 [facility] Comment on above: Performed By: #### L 3100.2300, L100.0600, L501.2300, L500.2500, L501.9520 ####[facility] [address] [place], [address] GFR/1.73 sq M.predicted among non-blacks MDRD (S/P/Bld) [Vol rate/Area] 69 mL/min/{1.73_m2} Normal >60 [facility] Comment on above: Result Comment: mL/m in/1.73m2 CKD-EPI Creatinine Equation (2020) Performed By: #### L 3100.2300, L100.0600, L501.2300, L500.2500, L501.9520 ####[facility] [address] [place], [address] Glucose [Mass/Vol] 128 mg/dL High 70-99 [facility] Comment on above: Performed By: #### L 3100.2300, L100.0600, L501.2300, L500.2500, L501.9520 ####[facility] [address] [place], [address] Potassium [Moles/Vol] 4.6 mmol/L Normal 3.3-5.1 [facility] Comment on above: Result Comment: Hemo lysis present, Results??could be affected.?? Performed By: #### L 3100.2300, L100.0600, L501.2300, L500.2500, L501.9520 ####[facility] [address] [place], [address] Sodium [Moles/Vol] 133 mmol/L Normal 133-145 [facility] Comment on above: Performed By: #### L 3100.2300, L100.0600, L501.2300, L500.2500, L501.9520 ####[facility] [address] [place], [address] Urea nitrogen [Mass/Vol] 20 mg/dL High 4-19 [facility] Comment on above: Performed By: #### L 3100.2300, L100.0600, L501.2300, L500.2500, L501.9520 ####[facility] [address] [place], [address] Bedside Glucoseon 11-19-2024 FINGERSTICK GLU 139 mg/dL High 74-106 [facility] Comment on above: Result Comment: FRANCINE SKINNER OF PATIENT CARE PER NURSING PROTOCOL Performed By: #### L 501.080 ####[facility] [address] [place], [address] HH, Hemoglobin AND Hematocri ton 11-19-2024 Hematocrit (Bld) [Volume fraction] 43.9 % Normal 37-47 [facility] Comment on above: Performed By: #### L 3100.2300, L100.0600, L501.2300, L500.2500, L501.9520 ####[facility] [address] [place], [address] Hemoglobin (Bld) [Mass/Vol] 14.2 g/dL Normal 12.0-15.0 [facility] Comment on above: Performed By: #### L 3100.2300, L100.0600, L501.2300, L500.2500, L501.9520 ####[facility] [address] [place], [place], [address] Phosphoruson 11-19-2024 Phosphate [Mass/Vol] 3.7 mg/dL Normal 2.7-4.5 [facility] Comment on above: Performed By: #### L 3100.2300, L100.0600, L501.2300, L500.2500, L501.9520 ####[facility] [address] [place], [place], [id number] Serum or plasma carcinoembry onic antigen measurement (mass/volume)Ordered By: Ada Soliman on 11-19-2024 Carcinoembryonic Ag [Mass/Vol] 4.6 ng/mL 0.0-4.7 [facility] Comment on above: Nonsmokers <3.9 Smok ers <5.6[employer] Electrochemiluminescence Immunoassay(ECLIA)Values obtained with different assay methods or kitscannot be used interchangeably. Results cannot beinterpreted as absolute evidence of the presence orabsence of malignant disease.Performed at: [address] [id number] Director: Taiwo Quintero PhD, Phone: [phone] T4 Free Directon 11-19-2024 T4 FREE DIRECT 1.10 ng/dL Normal 0.76-1.46 [facility] Comment on above: Performed By: #### L 506.0400 ####[facility] [address] [facility] [address] [place], [place], [id number] T4 freeOrdered By: Ada Valentin nti on 11-19-2024 Free T4 [Mass/Vol] 1.10 ng/dL 0.76-1.46 [facility] TSH DL <= 0.005 mIU/L QnOrde red By: Ada Soliman on 11-19-2024 TSH Qn 30.200 uIU/mL High 0.300-4.20 0 [facility] Thyroid Stim Hormone (TSH)on 11-19-2024 TSH 30.200 uIU/mL High 0.300-4.20 0 [facility] Comment on above: Performed By: #### L 3100.2300, L100.0600, L501.2300, L500.2500, L501.9520 ####[facility] [address] [place], [address] 12 Lead EKGon 11-18-2024 12 Lead EKG Normal [facility] Bedside Glucoseon 11-18-2024 FINGERSTICK GLU 139 mg/dL High 74-106 [facility] Comment on above: Result Comment: FRANCINE GEMENT OF PATIENT CARE PER NURSING PROTOCOL Performed By: #### L 501.080 ####[facility] [address] [place], [address] FINGERSTICK GLU 150 mg/dL High 74-106 [facility] Comment on above: Result Comment: FRANCINE GEMENT OF PATIENT CARE PER NURSING PROTOCOL Performed By: #### L 501.080 ####[facility] [address] [place], [address] Bedside Glucoseon 11-17-2024 FINGERSTICK GLU 117 mg/dL High 74-106 [facility] Comment on above: Result Comment: FRANCINE GEMENT OF PATIENT CARE PER NURSING PROTOCOL Performed By: #### L 501.080 ####[facility] [address] [place], [address] FINGERSTICK GLU 96 mg/dL Normal 74-106 [facility] Comment on above: Result Comment: FRANCINE GEMENT OF PATIENT CARE PER NURSING PROTOCOL Performed By: #### L 501.080 ####[facility] [address] [place], [address] FINGERSTICK GLU 131 mg/dL High 74-106 [facility] Comment on above: Result Comment: FRANCINE GEMENT OF PATIENT CARE PER NURSING PROTOCOL Performed By: #### L 501.080 ####[facility] [address] [place], [address] FINGERSTICK GLU 112 mg/dL High 74-106 [facility] Comment on above: Result Comment: FRANCINE GEMENT OF PATIENT CARE PER NURSING PROTOCOL Performed By: #### L 501.080 ####[facility] [address] [place], [address] Bedside Glucoseon 11-16-2024 FINGERSTICK GLU 108 mg/dL High 74-106 [facility] Comment on above: Result Comment: FRANCINE GEMENT OF PATIENT CARE PER NURSING PROTOCOL Performed By: #### L 501.080 ####[facility] [address] [place], [address] FINGERSTICK GLU 111 mg/dL High 74-106 [facility] Comment on above: Result Comment: FRANCINE GEMENT OF PATIENT CARE PER NURSING PROTOCOL Performed By: #### L 501.080 ####[facility] [address] [place], [address] FINGERSTICK GLU 115 mg/dL High 74-106 [facility] Comment on above: Result Comment: FRANCINE GEMENT OF PATIENT CARE PER NURSING PROTOCOL Performed By: #### L 501.080 ####[facility] [address] [place], [address] FINGERSTICK GLU 120 mg/dL High 74-106 [facility] Comment on above: Result Comment: FRANCINE GEMENT OF PATIENT CARE PER NURSING PROTOCOL Performed By: #### L 501.080 ####[facility] [address] [place], [address] Bedside Glucoseon 11-15-2024 FINGERSTICK GLU 113 mg/dL High 74-106 [facility] Comment on above: Result Comment: FRANCINE GEMENT OF PATIENT CARE PER NURSING PROTOCOL Performed By: #### L 501.080 ####[facility] [address] [place], [address] FINGERSTICK GLU 102 mg/dL Normal 74-106 [facility] Comment on above: Result Comment: FRANCINE GEMENT OF PATIENT CARE PER NURSING PROTOCOL Performed By: #### L 501.080 ####[facility] [address] [place], [address] FINGERSTICK GLU 128 mg/dL High 74-106 [facility] Comment on above: Result Comment: FRANCINE GEMENT OF PATIENT CARE PER NURSING PROTOCOL Performed By: #### L 501.080 ####[facility] [address] [place], [address] FINGERSTICK GLU 119 mg/dL High 74-106 [facility] Comment on above: Result Comment: FRANCINE GEMENT OF PATIENT CARE PER NURSING PROTOCOL Performed By: #### L 501.080 ####[facility] [address] [place], [address] Phosphoruson 11-15-2024 Phosphate [Mass/Vol] 2.9 mg/dL Normal 2.7-4.5 [facility] [facility] Comment on above: Performed By: #### L 501.2300 ####[facility] [address] [place], [address] Bedside Glucoseon 11-14-2024 FINGERSTICK GLU 156 mg/dL High -106 [facility] Comment on above: Result Comment: FRANCINE GEMENT OF PATIENT CARE PER NURSING PROTOCOL Performed By: #### L 501.080 ####[facility] [address], [address] FINGERSTICK GLU 145 mg/dL High -106 [facility] Comment on above: Result Comment: FRANCINE GEMENT OF PATIENT CARE PER NURSING PROTOCOL Performed By: #### L 501.080 ####[facility] [address] [place], [address] FINGERSTICK GLU 129 mg/dL High -106 [facility] Comment on above: Result Comment: FRANCINE GEMENT OF PATIENT CARE PER NURSING PROTOCOL Performed By: #### L 501.080 ####[facility] [address] [place], [address] FINGERSTICK GLU 134 mg/dL High 74-106 [facility] Comment on above: Result Comment: FRANCINE GEMENT OF PATIENT CARE PER NURSING PROTOCOL Performed By: #### L 501.080 ####[facility] [address] [place], [address] Bedside Glucoseon 11-13-2024 FINGERSTICK GLU 123 mg/dL High [facility]106 [facility] Comment on above: Result Comment: FRANCINE GEMENT OF PATIENT CARE PER NURSING PROTOCOL Performed By: #### L 501.080 ####[facility] [address] [place], [address] FINGERSTICK GLU 161 mg/dL High [facility]106 [facility] Comment on above: Result Comment: FRANCINE GEMENT OF PATIENT CARE PER NURSING PROTOCOL Performed By: #### L 501.080 ####[facility] [address] [place], [address] FINGERSTICK GLU 162 mg/dL High -[address] [place] [address] Comment on above: Result Comment: FRANCINE GEMENT OF PATIENT CARE PER NURSING PROTOCOL Performed By: #### L 501.080 ####[facility] [address] [place], [address] FINGERSTICK GLU 128 mg/dL High [address] [place] [address] Comment on above: Result Comment: FRANCINE GEMENT OF PATIENT CARE PER NURSING PROTOCOL Performed By: #### L 501.080 ####[facility] [address] [place], [address] Bedside Glucoseon 5 FINGERSTICK GLU 114 mg/dL High [address] [place] [address] Comment on above: Result Comment: FRANCINE GEMENT OF PATIENT CARE PER NURSING PROTOCOL Performed By: #### L 501.080 ####[facility] [address] [place], [address] FINGERSTICK GLU 119 mg/dL High [facility]106 [facility] Comment on above: Result Comment: FRANCINE GEMENT OF PATIENT CARE PER NURSING PROTOCOL Performed By: #### L 501.080 ####[facility] [address] [place], [address] FINGERSTICK GLU 130 mg/dL High 74-106 [facility] Comment on above: Result Comment: FRANCINE GEMENT OF PATIENT CARE PER NURSING PROTOCOL Performed By: #### L 501.080 ####[facility] [address] [place], [address] FINGERSTICK GLU 134 mg/dL High 74-106 [facility] Comment on above: Result Comment: FRANCINE GEMENT OF PATIENT CARE PER NURSING PROTOCOL Performed By: #### L 501.080 ####[facility] [address] [place], [address] CBC-Complete Blood Cnt No Di ffon 11-12-2024 Erythrocyte distribution width (RBC) [Ratio] 15.1 % High 11.6-14.6 [facility] Comment on above: Performed By: #### L 100.0500, L500.4050, L501.5200 ####[facility] [address] [place], [address] Hematocrit (Bld) [Volume fraction] 46.1 % Normal 37-47 [facility] Comment on above: Performed By: #### L 100.0500, L500.4050, L501.5200 ####[facility] [address] [place], [address] Hemoglobin (Bld) [Mass/Vol] 14.5 g/dL Normal 12.0-15.0 [facility] Comment on above: Performed By: #### L 100.0500, L500.4050, L501.5200 ####[facility] [address] [place], [address] MCH (RBC) [Entitic mass] 28.2 pg Normal 27.0-32.0 [facility] Comment on above: Performed By: #### L 100.0500, L500.4050, L501.5200 ####[facility] [address] [place], [address] MCHC (RBC) [Mass/Vol] 31.5 g/dL Low 32-36 [facility] Comment on above: Performed By: #### L 100.0500, L500.4050, L501.5200 ####[facility] [address] [place], [address] MCV (RBC) [Entitic vol] 89.5 fL Normal 81-99 [facility] Comment on above: Performed By: #### L 100.0500, L500.4050, L501.5200 ####[facility] [address] [place], [address] Platelet mean volume (Bld) [Entitic vol] 10.4 fL Normal 6.2-12.0 [facility] Comment on above: Performed By: #### L 100.0500, L500.4050, L501.5200 ####[facility] [address] [place], [address] Platelets (Bld) [#/Vol] 213 10*3/uL Normal 150-450 [facility] Comment on above: Performed By: #### L 100.0500, L500.4050, L501.5200 ####[facility] [address] [place], [address] RBC (Bld) [#/Vol] 5.15 10*6/uL Normal 4.2-5.4 [facility] Comment on above: Performed By: #### L 100.0500, L500.4050, L501.5200 ####[facility] [address] [place], [address] RDW SD 49.5 fl High 35.1-43.9 [facility] Comment on above: Performed By: #### L 100.0500, L500.4050, L501.5200 ####[facility] [address] [place], [address] WBC (Bld) [#/Vol] 9.9 10*3/uL Normal 4.4-11.0 [facility] Comment on above: Performed By: #### L 100.0500, L500.4050, L501.5200 ####[facility] [address] [place], [address] Comprehensive Metabolic Prof ilon 11-12-2024 Albumin [Mass/Vol] 3.7 g/dL Normal 3.4-4.8 [facility] Comment on above: Performed By: #### L 100.0500, L500.4050, L501.5200 ####[facility] [address] [place], [address] Albumin/Globulin [Mass ratio] 1.0 {ratio} Normal 0.9-2.4 [facility] Comment on above: Performed By: #### L 100.0500, L500.4050, L501.5200 ####[facility] [address] [place], [address] ALK PHOS 114 U/L High 35-104 [facility] Comment on above: Performed By: #### L 100.0500, L500.4050, L501.5200 ####[facility] [address] [place], [address] ALT [Catalytic activity/Vol] 10 U/L Normal <=34 [facility] Comment on above: Performed By: #### L 100.0500, L500.4050, L501.5200 ####[facility] [address] [place], [address] AST [Catalytic activity/Vol] 20 U/L Normal <=31 [facility] Comment on above: Result Comment: Hemo lysis present, Results??could be affected.?? Performed By: #### L 100.0500, L500.4050, L501.5200 ####[facility] [address] [place], [address] Bilirubin [Mass/Vol] 1.04 mg/dL Normal 0.00-1.30 [facility] Comment on above: Performed By: #### L 100.0500, L500.4050, L501.5200 ####[facility] [address] [place], [address] BUN/CRE 14.8 RATIO Normal 10-20 [facility] Comment on above: Performed By: #### L 100.0500, L500.4050, L501.5200 ####[facility] [address] [place], [address] Calcium [Mass/Vol] 10.0 mg/dL Normal 7.6-11.0 [facility] Comment on above: Performed By: #### L 100.0500, L500.4050, L501.5200 ####[facility] [address] [place], [address] Chloride [Moles/Vol] 100 mmol/L Normal 98-108 [facility] Comment on above: Performed By: #### L 100.0500, L500.4050, L501.5200 ####[facility] [address] [place], [address] CO2 [Moles/Vol] 26.6 mmol/L Normal 21.0-32.0 [facility] Comment on above: Performed By: #### L 100.0500, L500.4050, L501.5200 ####[facility] [address] [place], [address] Creatinine [Mass/Vol] 0.94 mg/dL Normal 0.70-1.20 [facility] Comment on above: Performed By: #### L 100.0500, L500.4050, L501.5200 ####[facility] [address] [place], [address] ECRCL 66.12 ml/min Normal 50-250 [facility] Comment on above: Performed By: #### L 100.0500, L500.4050, L501.5200 ####[facility] [address] [place], [address] GAP 11 Normal 5-15 [facility] Comment on above: Performed By: #### L 100.0500, L500.4050, L501.5200 ####[facility] [address] [place], [address] GFR/1.73 sq M.predicted among non-blacks MDRD (S/P/Bld) [Vol rate/Area] 64 mL/min/{1.73_m2} Normal >60 [facility] Comment on above: Result Comment: mL/m in/1.73m2 CKD-EPI Creatinine Equation (2020) Performed By: #### L 100.0500, L500.4050, L501.5200 ####[facility] [address] [place], [address] Globulin (S) [Mass/Vol] 3.7 g/dL Normal 2.2-4.2 [facility] Comment on above: Performed By: #### L 100.0500, L500.4050, L501.5200 ####[facility] [address] [place], [address] Glucose [Mass/Vol] 138 mg/dL High 70-99 [facility] Comment on above: Performed By: #### L 100.0500, L500.4050, L501.5200 ####[facility] [address] [place], [address] Potassium [Moles/Vol] 4.7 mmol/L Normal 3.3-5.1 [facility] Comment on above: Result Comment: Hemo lysis present, Results??could be affected.?? Performed By: #### L 100.0500, L500.4050, L501.5200 ####[facility] [address] [place], [address] Sodium [Moles/Vol] 137 mmol/L Normal 133-145 [facility] Comment on above: Performed By: #### L 100.0500, L500.4050, L501.5200 ####[facility] [address] [place], [address] T PROT 7.4 g/dL Normal 5.9-8.4 [facility] Comment on above: Performed By: #### L 100.0500, L500.4050, L501.5200 ####[facility] [address] [place], [address] Urea nitrogen [Mass/Vol] 14 mg/dL Normal 4-19 [facility] Comment on above: Performed By: #### L 100.0500, L500.4050, L501.5200 ####[facility] [address] [place], [address] Magnesiumon 11-12-2024 Magnesium [Mass/Vol] 1.8 mg/dL Normal 1.5-2.2 [facility] Comment on above: Performed By: #### L 100.0500, L500.4050, L501.5200 ####[facility] [address] [place], [address] Phosphoruson 11-12-2024 Phosphate [Mass/Vol] 2.4 mg/dL Low 2.7-4.5 [facility] Comment on above: Performed By: #### L 501.2300 ####[facility] [address] [place], [address] Bedside Glucoseon 11-11-2024 FINGERSTICK GLU 142 mg/dL High 74-106 [facility] Comment on above: Result Comment: FRANCINE GEMENT OF PATIENT CARE PER NURSING PROTOCOL Performed By: #### L 501.080 ####[facility] [address] [place], [address] FINGERSTICK GLU 128 mg/dL High 74-106 [facility] Comment on above: Result Comment: FRANCINE GEMENT OF PATIENT CARE PER NURSING PROTOCOL Performed By: #### L 501.080 ####[facility] [address] [place], [address] CARDIAC RHYTHMon 11-11-2024 [facility] CBC,PLATELETSon 11-11-2024 Erythrocyte distribution width (RBC) [Ratio] 15 % High 10.8 - 14.9 % [facility] Hematocrit (Bld) [Volume fraction] 45.9 % High 34.9 - 44.3 % [facility] Hemoglobin (Bld) [Mass/Vol] 13.9 g/dL 11.4 - 15.2 g/dL [facility] Interpretation and review of laboratory results Abnormal [facility] MCH (RBC) [Entitic mass] 27 pg 25. 9 - 33.9 pg [facility] MCHC (RBC) [Mass/Vol] 30.3 g/dL Low 31.4 - 35.9 g/dL [facility] MCV (RBC) [Entitic vol] 89.3 fL 79.6 - 97.7 fL [facility] Platelet mean volume (Bld) [Entitic vol] 10.2 fL 8.5 - 12.2 fL [facility] Platelets (Bld) [#/Vol] 190 10*3/uL 150 - 393 K/uL [facility] RBC (Bld) [#/Vol] 5.14 10*6/uL High [facility] WBC (Bld) [#/Vol] 8.88 10*3/uL 3.99 - 11.19 K/uL [facility] Hematocrit (Bld) [Volume fraction] 45.9 % High 34.9-44.3 [facility] Comment on above: Performed By: #### H EMOGC #### [facility] (DEFAULT) [address] [place] [address] Hemoglobin (Bld) [Mass/Vol] 13.9 g/dL Normal 11.4-15.2 [facility] Comment on above: Performed By: #### H EMOGC #### [facility] (DEFAULT) [address] [place] [address] MCV (RBC) [Entitic vol] 89.3 fL Normal 79.6-97.7 [facility] Comment on above: Performed By: #### H EMOGC #### [facility] (DEFAULT) [address] [place] [address] Mean Cell Hgb 27.0 pg Normal 25.9-33.9 [facility] Comment on above: Performed By: #### H EMOGC #### [facility] (DEFAULT) [address] [place] [address] Mean Cell Hgb Conc 30.3 g/dL Low 31.4-35.9 [facility] Comment on above: Performed By: #### H EMOGC #### [facility] (DEFAULT) [address] [place] [address] Platelet mean volume (Bld) [Entitic vol] 10.2 fL Normal 8.5-12.2 [facility] Comment on above: Performed By: #### H EMOGC #### [facility] (DEFAULT) [address] [place] [address] Platelets (Bld) [#/Vol] 190 10*3/uL Normal 150-393 [facility] Comment on above: Performed By: #### H EMOGC #### [facility] (DEFAULT) [address] [place] [address] RBC (Bld) [#/Vol] 5.14 10*6/uL High 3.91-5.04 [facility] Comment on above: Performed By: #### [facility] [place] #### [facility] (DEFAULT) [address] [place] [address] RBC Distribution 15.0 % High 10.8-14.9 [facility] Comment on above: Performed By: #### H [facility] [place] #### [facility] (DEFAULT) [address] [place] [address] WBC (Bld) [#/Vol] 8.88 10*3/uL Normal 3.99-11.19 [facility] Comment on above: Performed By: #### H [facility] [place] #### [facility] (DEFAULT) [address] [place] [address] CHEM 7 (LYTES,BUN,CREA,GLUC) on 11-11-2024 Anion gap [Moles/Vol] 13 mmol/L 7 - 17 mmol/L [facility] Chloride [Moles/Vol] 101 mmol/L 98 - 10 8 mmol/L [facility] CO2 [Moles/Vol] 26 mmol/L 21 - 31 mmol/L [facility] Creatinine [Mass/Vol] 0.85 mg/dL 0.50 - 1.20 mg/dL [facility] eGFR, CKD-EPI, Female 75 - PINF [facility] Comment on above: Reported eGFR is bas ed on the CKD-EPI 2020 equation using creatinine, age, and sex. Glucose [Mass/Vol] 119 mg/dL 70 - 179 mg/dL [facility] Osmolality Calc [Osmolality] 287 [facility] Potassium [Moles/Vol] 4.1 mmol/L 3.5 - 5.0 mmol/L [facility] Sodium [Moles/Vol] 136 mmol/L 135 - 145 mmol/L [facility] Urea nitrogen [Mass/Vol] 14 mg/dL 7 - 25 mg/dL [facility] Urea nitrogen/Creatinine [Mass ratio] 16 mg/mg [facility] Anion gap [Moles/Vol] 13 mmol/L Normal 7-17 [facility] Comment on above: Performed By: #### TIFFANY MO7 #### [facility] (DEFAULT) [address] [place] [address] Chloride [Moles/Vol] 101 mmol/L Normal 98-108 [facility] Comment on above: Performed By: #### TIFFANY MO7 #### [facility] (DEFAULT) [address] [place] [address] CO2 [Moles/Vol] 26 mmol/L Normal 21-31 [facility] Comment on above: Performed By: #### TIFFANY MO7 #### [facility] (DEFAULT) [address] [place] [address] Creatinine [Mass/Vol] 0.85 mg/dL Normal 0.50-1.20 [facility] Comment on above: Performed By: #### TIFFANY MO7 #### [facility] (DEFAULT) [address] [place] [address] GFR/1.73 sq M.predicted among non-blacks MDRD (S/P/Bld) [Vol rate/Area] 73 mL/min/{1.73_m2} Normal >=60 [facility] Comment on above: Result Comment: Repo rted eGFR is based on the CKD-EPI 2020 equation using creatinine, age, and sex. Performed By: #### SEEMA MO #### [facility] (DEFAULT) [address] [place] [address] Glucose [Mass/Vol] 119 mg/dL Normal Nonfastin g : 70-179 mg/dL; Fastin-99 [facility] Comment on above: Performed By: #### TIFFANY MO7 #### [facility] (DEFAULT) [address] [place] [address] Osmolality [Osmolality] 287 mosm/kg Normal 278-305 [facility] Comment on above: Performed By: #### TIFFANY MO7 #### [facility] (DEFAULT) [address] [place] [address] Potassium [Moles/Vol] 4.1 mmol/L Normal 3.5-5.0 [facility] Comment on above: Performed By: #### Kennedy RETANA, CHM7 #### [facility] (DEFAULT) [address] [place] [address] Sodium [Moles/Vol] 136 mmol/L Normal 135-145 [facility] Comment on above: Performed By: #### Kennedy RETANA, CHM7 #### [facility] (DEFAULT) [address] [place] [address] Urea nitrogen [Mass/Vol] 14 mg/dL Normal 7-25 [facility] Comment on above: Performed By: #### Kennedy RETANA, CHM7 #### [facility] (DEFAULT) [address] [place] [address] Urea nitrogen/Creatinine [Mass ratio] 16 mg/mg Normal [facility] Comment on above: Performed By: #### Kennedy RETANA, CHM7 #### [facility] (DEFAULT) [address] [place] [address] GLUCOSE POCon 11-11-2024 Glucose [Mass/Vol] 138 mg/dL 70 - 179 mg/dL [facility] POC Sample Type CAPBL [facility] Test performed at ad dress of the patient encounter. [facility] Glucose [Mass/Vol] 110 mg/dL 70 - 179 mg/dL [facility] POC Sample Type CAPBL [facility] Test performed at ad dress of the patient encounter. [facility] MAGNESIUMon 11-11-2024 Interpretation and review of laboratory results Normal [facility] Magnesium [Mass/Vol] 1.7 mg/dL 1.6 - 2 .6 mg/dL [facility] Magnesium [Mass/Vol] 1.7 mg/dL Normal 1.6-2.6 [facility] Comment on above: Performed By: #### M [facility] #### [facility] (DEFAULT) [address] [place] [address] No Panel Informationon 11-11 [facility] CBC,PLATELETSon 11-10-2024 Erythrocyte distribution width (RBC) [Ratio] 15.5 % High 10.8 - 14.9 % [facility] Hematocrit (Bld) [Volume fraction] 48.3 % High 34.9 - 44.3 % [facility] Hemoglobin (Bld) [Mass/Vol] 14.3 g/dL 11.4 - 15.2 g/dL [facility] Interpretation and review of laboratory results Abnormal [facility] MCH (RBC) [Entitic mass] 27.3 pg 25. 9 - 33.9 pg [facility] MCHC (RBC) [Mass/Vol] 29.6 g/dL Low 31.4 - 35.9 g/dL [facility] MCV (RBC) [Entitic vol] 92.4 fL 79.6 - 97.7 fL [facility] Platelet mean volume (Bld) [Entitic vol] 10.2 fL 8.5 - 12.2 fL [facility] Platelets (Bld) [#/Vol] 183 10*3/uL 150 - 393 K/uL [facility] RBC (Bld) [#/Vol] 5.23 10*6/uL High [facility] WBC (Bld) [#/Vol] 8.93 10*3/uL 3.99 - 11.19 K/uL [facility] Hematocrit (Bld) [Volume fraction] 48.3 % High 34.9-44.3 [facility] Comment on above: Performed By: #### H [facility] [place] #### [facility] (DEFAULT) [address] [place] [address] Hemoglobin (Bld) [Mass/Vol] 14.3 g/dL Normal 11.4-15.2 [facility] Comment on above: Performed By: #### H [facility] [place] #### [facility] (DEFAULT) [address] [place] [address] MCV (RBC) [Entitic vol] 92.4 fL Normal 79.6-97.7 O [facility] Comment on above: Performed By: #### H EMOGC #### [facility] (DEFAULT) [address] [place] [address] Mean Cell Hgb 27.3 pg Normal 25.9-33.9 [facility] Comment on above: Performed By: #### H EMOGC #### [facility] (DEFAULT) [address] [address] Mean Cell Hgb Conc 29.6 g/dL Low 31.4-35.9 [facility] Comment on above: Performed By: #### H EMOGC #### [facility] (DEFAULT) [address] [place] [address] Platelet mean volume (Bld) [Entitic vol] 10.2 fL Normal 8.5-12.2 [facility] Comment on above: Performed By: #### H EMOGC #### [facility] (DEFAULT) [address] [address] Platelets (Bld) [#/Vol] 183 10*3/uL Normal 150-393 [facility] Comment on above: Performed By: #### H EMOGC #### [facility] (DEFAULT) [address] [address] RBC (Bld) [#/Vol] 5.23 10*6/uL High 3.91-5.04 [facility] Comment on above: Performed By: #### H EMOGC #### [facility] (DEFAULT) [address] [address] RBC Distribution 15.5 % High 10.8-14.9 [facility] Comment on above: Performed By: #### H EMOGC #### [facility] (DEFAULT) [address] [address] WBC (Bld) [#/Vol] 8.93 10*3/uL Normal 3.99-11.19 [facility] Comment on above: Performed By: #### H [facility] [place] #### [facility] (DEFAULT) [address] [place] [address] CHEM 7 (LYTES,BUN,CREA,GLUC) on 11-10-2024 Anion gap [Moles/Vol] 11 mmol/L 7 - 17 mmol/L [facility] [facility] Chloride [Moles/Vol] 102 mmol/L 98 - 10 8 mmol/L [facility] CO2 [Moles/Vol] 30 mmol/L 21 - 31 mmol/L [facility] Creatinine [Mass/Vol] 1.06 mg/dL 0.50 - 1.20 mg/dL [facility] eGFR, CKD-EPI, Female 58 Low - PINF [facility] Comment on above: Reported eGFR is bas ed on the CKD-EPI 2020 equation using creatinine, age, and sex. Glucose [Mass/Vol] 135 mg/dL 70 - 179 mg/dL [facility] Interpretation and review of laboratory results Abnormal [facility] Osmolality Calc [Osmolality] 294 [facility] Potassium [Moles/Vol] 4.3 mmol/L 3.5 - 5.0 mmol/L [facility] Sodium [Moles/Vol] 139 mmol/L 135 - 145 mmol/L [facility] Urea nitrogen [Mass/Vol] 14 mg/dL 7 - 25 mg/dL [facility] Urea nitrogen/Creatinine [Mass ratio] 13 mg/mg [facility] Anion gap [Moles/Vol] 11 mmol/L Normal 7-17 [facility] Comment on above: Performed By: #### SEEMA MO #### [facility] (DEFAULT) [address] [place] [address] Chloride [Moles/Vol] 102 mmol/L Normal 98-108 [facility] Comment on above: Performed By: #### SEEMA MO #### [facility] (DEFAULT) [address] [place] [address] CO2 [Moles/Vol] 30 mmol/L Normal 21-31 [facility] Comment on above: Performed By: #### TIFFANY MO7 #### [facility] (DEFAULT) [address] [place] [address]1168 Creatinine [Mass/Vol] 1.06 mg/dL Normal 0.50-1.20 [facility] Comment on above: Performed By: #### TIFFANY MO7 #### [facility] (DEFAULT) [address] [place] [address]18 GFR/1.73 sq M.predicted among non-blacks MDRD (S/P/Bld) [Vol rate/Area] 56 mL/min/{1.73_m2} Low >=60 [facility] Comment on above: Result Comment: Repo rted eGFR is based on the CKD-EPI 2020 equation using creatinine, age, and sex. Performed By: #### SEEMA MO #### [facility] (DEFAULT) [address] [place] [address]47 Glucose [Mass/Vol] 135 mg/dL Normal Nonfastin g : 70-179 mg/dL; Fastin-99 [facility] Comment on above: Performed By: #### TIFFANY MO7 #### [facility] (DEFAULT) [address] [place] [address] Osmolality [Osmolality] 294 mosm/kg Normal 278-305 [facility] Comment on above: Performed By: #### TIFFANY MO7 #### [facility] (DEFAULT) [address] [place] [address]15 Potassium [Moles/Vol] 4.3 mmol/L Normal 3.5-5.0 [facility] Comment on above: Performed By: #### Kennedy RETANA CHM7 #### [facility] (DEFAULT) [address] [place] [address]854 Sodium [Moles/Vol] 139 mmol/L Normal 135-145 [facility] Comment on above: Performed By: #### TIFFANY MO7 #### [facility] (DEFAULT) [address] [place] [address] 01099 Urea nitrogen [Mass/Vol] 14 mg/dL Normal 7-25 [facility] Comment on above: Performed By: #### TIFFANY MO7 #### [facility] (DEFAULT) [address] [place] [address] 68963 Urea nitrogen/Creatinine [Mass ratio] 13 mg/mg Normal [facility] Comment on above: Performed By: #### TIFFANY MO7 #### [facility] (DEFAULT) [address] [place] [address] 24384 GLUCOSE POCon 11-10-2024 Glucose [Mass/Vol] 142 mg/dL 70 - 179 mg/dL [facility] POC Sample Type CAPBL [facility] Test performed at ad dress of the patient encounter. [facility] Glucose [Mass/Vol] 134 mg/dL 70 - 179 mg/dL [facility] POC Sample Type CAPBL [facility] Test performed at ad dress of the patient encounter. [facility] Glucose [Mass/Vol] 160 mg/dL 70 - 179 mg/dL [facility] POC Sample Type CAPBL [facility] Test performed at ad dress of the patient encounter. [facility] Glucose [Mass/Vol] 159 mg/dL 70 - 179 mg/dL [facility] POC Sample Type CAPBL [facility] Test performed at ad dress of the patient encounter. [facility] MAGNESIUMon 11-10-2024 Interpretation and review of laboratory results Normal [facility] Magnesium [Mass/Vol] 1.9 mg/dL 1.6 - 2 .6 mg/dL [facility] Magnesium [Mass/Vol] 1.9 mg/dL Normal 1.6-2.6 [facility] Comment on above: Performed By: #### M GO, CHM7 #### [facility] (DEFAULT) [address] [place] [address] No Panel Informationon 11-10 [facility] CBC,PLATELETSon 11-09-2024 Erythrocyte distribution width (RBC) [Ratio] 15.8 % High 10.8 - 14.9 % [facility] Hematocrit (Bld) [Volume fraction] 49.4 % High 34.9 - 44.3 % [facility] Hemoglobin (Bld) [Mass/Vol] 14.6 g/dL 11.4 - 15.2 g/dL [facility] Interpretation and review of laboratory results Abnormal [facility] MCH (RBC) [Entitic mass] 27 pg 25. 9 - 33.9 pg [facility] MCHC (RBC) [Mass/Vol] 29.6 g/dL Low 31.4 - 35.9 g/dL [facility] MCV (RBC) [Entitic vol] 91.5 fL 79.6 - 97.7 fL [facility] Platelet mean volume (Bld) [Entitic vol] 10.2 fL 8.5 - 12.2 fL [facility] Platelets (Bld) [#/Vol] 194 10*3/uL 150 - 393 K/uL [facility] RBC (Bld) [#/Vol] 5.4 10*6/uL [facility] WBC (Bld) [#/Vol] 10.12 10*3/uL 3.99 - 11.19 K/uL [facility] Hematocrit (Bld) [Volume fraction] 49.4 % High 34.9-44.3 [facility] Comment on above: Performed By: #### L IPDR, HFP, CHM7 #### [facility] (DEFAULT) [address] [place] [address] 9[address]32 Hemoglobin (Bld) [Mass/Vol] 14.6 g/dL Normal 11.4-15.2 [facility] Comment on above: Performed By: #### L IPDR, HFP, CHM7 #### [facility] (DEFAULT) [address] [place] [address] 35960 MCV (RBC) [Entitic vol] 91.5 fL Normal 79.6-97.7 [facility] Comment on above: Performed By: #### L IPDR, HFP, CHM7 #### [facility] (DEFAULT) [address] [place] [address] 69869 Mean Cell Hgb 27.0 pg Normal 25.9-33.9 [facility] Comment on above: Performed By: #### L IPDR, HFP, CHM7 #### [facility] (DEFAULT) [address] [place] [address] 19568 Mean Cell Hgb Conc 29.6 g/dL Low 31.4-35.9 [facility] Comment on above: Performed By: #### L IPDR, HFP, CHM7 #### [facility] (DEFAULT) [address] [place] [address] 98661 Platelet mean volume (Bld) [Entitic vol] 10.2 fL Normal 8.5-12.2 [facility] Comment on above: Performed By: #### L IPDR, HFP, CHM7 #### [facility] (DEFAULT) [address] [place] [address] 34325 Platelets (Bld) [#/Vol] 194 10*3/uL Normal 150-393 [facility] Comment on above: Performed By: #### L IPDR, HFP, CHM7 #### [facility] (DEFAULT) [address] [place] [address] 53277 RBC (Bld) [#/Vol] 5.40 10*6/uL High 3.91-5.04 [facility] Comment on above: Performed By: #### L IPDR, HFP, CHM7 #### [facility] (DEFAULT) [address] [place] [address] 44367 RBC Distribution 15.8 % High 10.8-14.9 [facility] Comment on above: Performed By: #### L IPDR, HFP, CHM7 #### [facility] (DEFAULT) [address] [place] [address] 57763 WBC (Bld) [#/Vol] 10.12 10*3/uL Normal 3.99-11.19 [facility] Comment on above: Performed By: #### L IPDR, HFP, CHM7 #### [facility] (DEFAULT) [address] [place] [address] 44464 CHEM 7 (LYTES,BUN,CREA,GLUC) on 11-09-2024 Anion gap [Moles/Vol] 10 mmol/L 7 - 17 mmol/L [facility] Chloride [Moles/Vol] 103 mmol/L 98 - 10 8 mmol/L [facility] CO2 [Moles/Vol] 31 mmol/L 21 - 31 mmol/L [facility] Creatinine [Mass/Vol] 0.82 mg/dL 0.50 - 1.20 mg/dL [facility] eGFR, CKD-EPI, Female 78 - PINF [facility] Comment on above: Reported eGFR is bas ed on the CKD-EPI 2020 equation using creatinine, age, and sex. Glucose [Mass/Vol] 126 mg/dL 70 - 179 mg/dL [facility] Osmolality Calc [Osmolality] 294 [facility] Potassium [Moles/Vol] 4.2 mmol/L 3.5 - 5.0 mmol/L [facility] Sodium [Moles/Vol] 140 mmol/L 135 - 145 mmol/L [facility] Urea nitrogen [Mass/Vol] 11 mg/dL 7 - 25 mg/dL [facility] Urea nitrogen/Creatinine [Mass ratio] 13 mg/mg [facility] Anion gap [Moles/Vol] 10 mmol/L Normal 7-17 [facility] Comment on above: Performed By: #### L IPDR, HFP, CHM7 #### [facility] (DEFAULT) [address] [place] [address] 89018 Chloride [Moles/Vol] 103 mmol/L Normal 98-108 [facility] Comment on above: Performed By: #### L IPDR, HFP, CHM7 #### [facility] (DEFAULT) [address] [place] [address] 04198 CO2 [Moles/Vol] 31 mmol/L Normal 21-31 [facility] Comment on above: Performed By: #### L IPDR, HFP, CHM7 #### [facility] (DEFAULT) [address] [place] [address] 35196 Creatinine [Mass/Vol] 0.82 mg/dL Normal 0.50-1.20 [facility] Comment on above: Performed By: #### L IPDR, HFP, CHM7 #### [facility] (DEFAULT) [address] [place] [address] 93584 GFR/1.73 sq M.predicted among non-blacks MDRD (S/P/Bld) [Vol rate/Area] 76 mL/min/{1.73_m2} Normal >=60 [facility] Comment on above: Result Comment: Repo rted eGFR is based on the CKD-EPI 2020 equation using creatinine, age, and sex. Performed By: #### L IPDR, HFP, CHM7 #### [facility] (DEFAULT) [address] [place] [address] 93878 Glucose [Mass/Vol] 126 mg/dL Normal Nonfastin g : 70-179 mg/dL; Fastin-99 [facility] Comment on above: Performed By: #### L IPDR, HFP, CHM7 #### [facility] (DEFAULT) [address] [place] [address] 88833 Osmolality [Osmolality] 294 mosm/kg Normal 278-305 [facility] Comment on above: Performed By: #### L IPDR, HFP, CHM7 #### [facility] (DEFAULT) [address] [place] [address] 32081 Potassium [Moles/Vol] 4.2 mmol/L Normal 3.5-5.0 [facility] Comment on above: Performed By: #### L IPDR, HFP, CHM7 #### [facility] (DEFAULT) [address] [place] [address] Sodium [Moles/Vol] 140 mmol/L Normal 135-145 [facility] Comment on above: Performed By: #### L IPDR, HFP, CHM7 #### [facility] (DEFAULT) [address] [place] [address] Urea nitrogen [Mass/Vol] 11 mg/dL Normal 7-25 [facility] Comment on above: Performed By: #### L IPDR, HFP, CHM7 #### [facility] (DEFAULT) [address] [place] [address] Urea nitrogen/Creatinine [Mass ratio] 13 mg/mg Normal [facility] Comment on above: Performed By: #### L IPDR, HFP, CHM7 #### [facility] (DEFAULT) [address] [place] [address] 30158 CHEM 7 (LYTES,BUN,CREA,GLUC) Ordered By: Carol Cuenca on 11-09-2024 Anion gap [Moles/Vol] 24 mmol/L High 7 - 17 mmol/L [facility] Chloride [Moles/Vol] 100 mmol/L 98 - 10 8 mmol/L [facility] CO2 [Moles/Vol] 20 mmol/L Low 21 - 31 mmol/L [facility] Creatinine [Mass/Vol] 0.84 mg/dL 0.50 - 1.20 mg/dL [facility] eGFR, CKD-EPI, Female 76 - PINF [facility] Comment on above: Reported eGFR is bas ed on the CKD-EPI 2020 equation using creatinine, age, and sex. Glucose [Mass/Vol] 109 mg/dL 70 - 179 mg/dL [facility] Interpretation and review of laboratory results Abnormal [facility] Osmolality Calc [Osmolality] 293 [facility] Potassium [Moles/Vol] 5.6 mmol/L High 3.5 - 5.0 mmol/L [facility] Comment on above: Specimen slightly he molyzed. Potassium results may be falsey elevated by more than 0.5 mmol/L. Consider recollection. Sodium [Moles/Vol] 138 mmol/L 135 - 145 mmol/L [facility] Urea nitrogen [Mass/Vol] 13 mg/dL 7 - 25 mg/dL [facility] nitrogen/Creatinine [Mass ratio] 15 mg[facility] Procedure Ordered By: Panda Ko on 11-09-2024 Ao ASC index 1.21 cm/m2 [facility] Work Phone: Ao peak obdulio 1.77 m/s [facility] Work Phone: Ao SOV index 1.11 cm/m2 [facility] Work Phone: Ao STJ index 1.08 cm/m2 [facility] Work Phone: Ao VTI 32.51 cm [facility] Work Phone: Ascending aorta 2.55 [facility]: AV LVOT peak gradient 6 mmHg [facility] Work Phone: [phone] AV mean gradient 6 [facility]: AV peak gradient 13 mmHG [facility] Work Phone: AV valve area 1.79 cm2 [facility] Work Phone: AV Velocity Ratio 0.69 [facility] Work Phone: RUBENS (continuity Vmax) 1.91 cm2 [facility] Work Phone: RUBENS (continuity VTI) 1.79 cm2 [facility] Work Phone: RUBENS index (continuity Vmax) 0.9 m/s [facility] Phone: RUBENS index (continuity VTI) 0.85 cm2/m2 [facility] Work Phone: Avg e' pk obdulio 0.06 m/s [facility] Work Phone: Body surface area Derived from formula 2.11 m2 [facility] Work Phone: BP EF 62 % [facility] Work Phone: DI (Vmax) 0.69 [facility] Work Phone: DI (VTI) 0.65 m/2 [facility] Work Phone: e' lateral pk obdulio 0.0544 m/s [facility]: e' lateral pk obdulio 0.05 m/s [facility]: e' septal pk obdulio 0.0616 m/s [facility] Work Phone: e' septal pk obdulio 0.06 m/s [facility] Work Phone: EF SP 2CH 63 [facility] Work Phone: EF SP 4CH 60 [facility] Work Phone: EST RAP 10 mmHg [facility] Work Phone: EST RVSP 45 mmHg [facility] Work Phone: FS 21 % [facility] Work Phone: IVC ostium 1.81 cm [facility] Work Phone: IVS 0.97 cm [facility] Work Phone: LA area 4CH 26.46 cm2 [facility] Work Phone: LA ESV BP (MOD) [address] Work Phone: LA ESV BP (MOD) index 45 mL/m2 [facility] Work Phone: LA ESV SP 2CH (MOD) 108 mL [facility] Work Phone: LA ESV SP 4CH (MOD) 76 mL [facility] Work Phone: LV EDV BP 77 mL [facility] Work Phone: LV EDV SP 2CH 71 mL [facility] Work Phone: LV EDV SP 4CH 81 mL [facility] Work Phone: LV ESV BP 29 mL [facility] Work Phone: LV ESV SP 2CH 26 mL [facility] Work Phone: LV ESV SP 4CH 32 mL [facility] Work Phone: LV mass 187.51 g [facility] Work Phone: LV Mass Index 88.9 g/m2 [facility] Work Phone: LV RWT 0.43 [facility] Work Phone: LV stroke volume BP (ml) 48 mL [facility] Work Phone: LV stroke volume index BP 22.75 mL/m2 [facility] Work Phone: LVIDD 5.01 cm [facility] Work Phone: LVIDS 3.98 cm [facility] Work Phone: LVOT area 2.75 cm2 [facility] Work Phone: LVOT diameter 1.87 cm [facility] Work Phone: LVOT peak obdulio 1.23 m/s [facility] Work Phone: LVOT peak VTI 21.19 cm [facility] Work Phone: LVOT stroke volume 58 cm3 [facility] Work Phone: LVOT stroke volume index 27.57 ml/m2 [facility] Work Phone: [phone] MV mean gradient 10 mmHg [facility] Work Phone: [phone] MV peak gradient 20 mmHg [facility] Work Phone: MV stenosis pressure 1/2 time 161.2 ms [facility] Work Phone: MV valve area by continuity eq 1.06 cm2 [facility] Work Phone: MV valve area p 1/2 method 1.36 cm2 [facility] Work Phone: MV VTI 54.69 cm [facility] Work Phone: MVA (continuity VTI) 1.07 cm [facility] Work Phone: OSU AV VTI RATIO PRE STRESS 0.65 [facility] Work Phone: OSU ECHO LV BIPLANE SYSTOLIC VOLUME INDEX 13.74 mL/m2 [facility] Work Phone: OSU ECHO LV BP DIASTOLIC VOLUME INDEX 36.49 mL/m2 [facility] Work Phone: PV mean gradient 3 mmHg [facility] Work Phone: PV peak gradient 7 mmHg [facility] Work Phone: PV PK OBDULIO 1.3 m/s [facility] Work Phone: PW 1.07 cm [facility] Work Phone: RA area 4CH (MOD) 15.29 cm2 [facility] Work Phone: RA vol index 4CH (MOD) 18.96 mL/m2 [facility] Work Phone: Right atrium volume 4 chamber method of disks 40 mL [facility] Work Phone: RV Area diastolic 10.6 cm2 [facility] Work Phone: RV Area systolic 4.5 cm2 [facility] Work Phone: RV basal diam 2.92 cm [facility] Work Phone: RV Fractional area change 57.5 % [facility] Work Phone: RV long diam 6.66 cm [facility] Work Phone: RV mid diam 1.7 cm [facility] Work Phone: RV S' 12.19 cm/s [facility] Work Phone: RVOT peak gradient 4 mmHg [facility] Work Phone: RVOT peak obdulio 0.99 m/s [facility] Work Phone: RVOT peak VTI 16 cm [facility] Work Phone: Sinus 2.34 cm [facility] Work Phone: STJ 2.27 cm [facility] Work Phone: Stroke Volume 58 cm/mL [facility] Work Phone: Stroke volume index 28 [facility] Work Phone: TAPSE 1.41 cm [facility] Work Phone: TR pk grad 35 mmHg [facility] Work Phone: TR pk obdulio 2.97 m/s [facility] Work Phone: [facility] Work Phone: Cardiac echo study Procedure on 11-09-2024 Cardiac rhythm is irregular Left ventricular size, regional wall motion and global systolic function are normal. Ejection fraction 62% Left atrium measures moderately enlarged in size Right ventricle is normal in size and function. Estimated right ventricular/pulmonary artery systolic pressure, 45mmHg Right atrium measures normal in size Mitral valve is moderately calcified. Cannot exclude rheumatic valvular disease. Trace to mild regurgitation. Moderate stenosis with mean gradient 10mmHg. Estimated valve area by pressure half-time and planimetry, 1.35 - 1.40cm2 Tricuspid valve regurgitation, mild to moderate Further study details described below Left Ventricle Chamber size is normal. Normal wall thickness. Normal global systolic function. Regional wall motion is normal. The ejection fraction is 62%. Ejection fraction by modified Waddell's rule is normal. Right Ventricle Chamber size is normal. Systolic function is normal. Estimated right ventricular systolic pressure is 45 mmHg. Fractional area change equals 57.5%. Left Atrium Chamber size is moderately enlarged. Right Atrium Chamber size is normal. IVC/SVC The inferior vena cava is normal in size. The inferior vena cava structure is abnormal. The diameter is <21 mm and decreases <50% during inspiration. Mitral Valve Anterior and posterior leaflet calcification. Leaflet mobility is restricted. Moderate annular calcification. Mild anterior and posterior subvalvular calcifications. Mild regurgitation. Moderate stenosis is present. Area by pressure 1/2 time is 1.36 cm2. Tee score is 8: thickness 2, mobility 2, calcification 2, subvalvular 2. Mean gradient is 10 mmHg. Tricuspid Valve Normal leaflets. Leaflet mobility is normal. Mild to moderate regurgitation. No stenosis. Pulmonary artery/right heart systolic pressure is elevated. Estimated right ventricular systolic pressure is 45 mmHg. Aortic Valve Trileaflet valve. Leaflet calcification. Cusp sclerosis visualized. Leaflet mobility is normal. No regurgitation. No stenosis. Mean gradient: 6 mmHg. Dimensionless Index by VTI: 0.65. Pulmonic Valve Trace regurgitation. No stenosis. Pericardium No pericardial effusion. Septum The atrial septum is normal. Aorta No dilation to extent seen. SOV: 2.34 cm. STJ: 2.27 cm. Ascendin.55 cm. Study Details A complete echocardiography study (including color flow Doppler, spectral Doppler and M-mode) was performed. Imaging system used: [employer]. Indications Indications for study: stroke/tia. [facility] Radiology Study observation (narrative) [facility] ECHOCARDIOGRAMon 11-09-2024 Echocardiography Cardiac rhythm is irregular Left ventricular size, regional wall motion and global systolic function are normal. Ejection fraction 62% Left atrium measures moderately enlarged in size Right ventricle is normal in size and function. Estimated right ventricular/pulmonary artery systolic pressure, 45mmHg Right atrium measures normal in size Mitral valve is moderately calcified. Cannot exclude rheumatic valvular disease. Trace to mild regurgitation. Moderate stenosis with mean gradient 10mmHg. Estimated valve area by pressure half-time and planimetry, 1.35 - 1.40cm2 Tricuspid valve regurgitation, mild to moderate Further study details described below Table formatting from the original result was not included. Images from the original result were not included. [facility] Facility [facility] Patient Information Patient Name Elizabeth Henley Legal Sex Female Indication for Exam Priority: Routine Dx: Cerebrovascular accident (CVA), unspecified mechanism [I63.9 (ICD-10-CM)] Order Question Reason for Exam Stroke Interpretation Summary Result History is available. Cardiac rhythm is irregular Left ventricular size, regional wall motion and global systolic function are normal. Ejection fraction 62% Left atrium measures moderately enlarged in size Right ventricle is normal in size and function. Estimated right ventricular/pulmonary artery systolic pressure, 45mmHg Right atrium measures normal in size Mitral valve is moderately calcified. Cannot exclude rheumatic valvular disease. Trace to mild regurgitation. Moderate stenosis with mean gradient 10mmHg. Estimated valve area by pressure half-time and planimetry, 1.35 - 1.40cm2 Tricuspid valve regurgitation, mild to moderate Further study details described below Findings Left Ventricle Chamber size is normal. Normal wall thickness. Normal global systolic function. Regional wall motion is normal. The ejection fraction is 62%. Ejection fraction by modified Waddell's rule is normal. Right Ventricle Chamber size is normal. Systolic function is normal. Estimated right ventricular systolic pressure is 45 mmHg. Fractional area change equals 57.5%. Left Atrium Chamber size is moderately enlarged. Right Atrium Chamber size is normal. Septum The atrial septum is normal. Mitral Valve Anterior and posterior leaflet calcification. Leaflet mobility is restricted. Moderate annular calcification. Mild anterior and posterior subvalvular calcifications. Mild regurgitation. Moderate stenosis is present. Area by pressure 1/2 time is 1.36 cm2. Tee score is 8: thickness 2, mobility 2, calcification 2, subvalvular 2. Mean gradient is 10 mmHg. Aortic Valve Trileaflet valve. Leaflet calcification. Cusp sclerosis visualized. Leaflet mobility is normal. No regurgitation. No stenosis. Mean gradient: 6 mmHg. Dimensionless Index by VTI: 0.65. Tricuspid Valve Normal leaflets. Leaflet mobility is normal. Mild to moderate regurgitation. No stenosis. Pulmonary artery/right heart systolic pressure is elevated. Estimated right ventricular systolic pressure is 45 mmHg. Pulmonic Valve Trace regurgitation. No stenosis. Aorta No dilation to extent seen. SOV: 2.34 cm. STJ: 2.27 cm. Ascendin.55 cm. Pericardium No pericardial effusion. IVC/SVC The inferior vena cava is normal in size. The inferior vena cava structure is abnormal. The diameter is <21 mm and decreases <50% during inspiration. Reading Providers Reading Role Read Date Panda Ko DO Echo [place] 11/09/2024 Left Heart Measurements LV - Systole LVIDD 5.01 cm IVS 0.97 cm LVIDS 3.98 cm PW 1.07 cm LV RWT 0.43 LV Mass Index 88.9 g/m2 LV EDV BP 77 mL LV ESV BP 29 mL BP EF 62 % LV stroke volume BP (ml) 48 mL LV stroke volume index BP 22.75 mL/m2 LV - Diastole e' septal pk obdulio 0.06 m/s e' lateral pk obdulio 0.05 m/s Avg e' pk obdulio 0.06 m/s LV - HCM AV LVOT peak gradient 6 mmHg Left Atrium LA ESV SP 4CH (MOD) 76 mL LA ESV SP 2CH (MOD) 108 mL LA ESV BP (MOD) index 45 mL/m2 Right Heart Measurements RV - 2D RV basal diam 2.92 cm RV mid diam 1.7 cm RV long diam 6.66 cm RV Area diastolic 10.6 cm2 RV Area systolic 4.5 cm2 RV Fractional area change 57.5 % RV - Doppler TAPSE 1.41 cm RV S' 12.19 cm/s Right Atrium RA vol index 4CH (MOD) 18.96 mL/m2 EST RAP 10 mmHg RA area 4CH (MOD) 15.29 cm2 Great Vessels Aortic Root - End Diastolic Sinus 2.34 cm STJ 2.27 cm Ascending aorta 2.55 cm Inferior Vena Cava IVC ostium 1.81 cm Doppler Measurements - Aortic Valve Stenosis LVOT diameter 1.87 cm LVOT area 2.75 cm2 LVOT peak obdulio 1.23 m/s LVOT peak VTI 21.19 cm Stroke Volume 58 cm/mL Stroke volume index 28 Ao peak obdulio 1.77 m/s A (more content not included)... Normal [facility] EXTRA MICROon 11-09-2024 [facility] GLUCOSE POCon 11-09-2024 Glucose [Mass/Vol] 164 mg/dL 70 - 179 mg/dL [facility] POC Sample Type CAPBL [facility] Test performed at ad dress of the patient encounter. [facility] Glucose [Mass/Vol] 128 mg/dL 70 - 179 mg/dL [facility] POC Sample Type CAPBL [facility] Test performed at ad dress of the patient encounter. [facility] Glucose [Mass/Vol] 152 mg/dL 70 - 179 mg/dL [facility] POC Sample Type CAPBL [facility] Test performed at ad dress of the patient encounter. [facility] Glucose [Mass/Vol] 136 mg/dL 70 - 179 mg/dL [facility] POC Sample Type CAPBL [facility] Test performed at ad dress of the patient encounter. [facility] HEPATIC FUNCTION PANELon Albumin [Mass/Vol] 4.2 g/dL 3.5 - 5.0 g/dL [facility] ALP [Catalytic activity/Vol] 107 U/L 32 - 126 U/L [facility] ALT [Catalytic activity/Vol] 8 U/L Low 9 - 48 U/L [facility] AST [Catalytic activity/Vol] 25 U/L 10 - 39 U/L [facility] Comment on above: Specimen slightly he molyzed. AST results may be falsely elevated. Interpret within the clinical context. Bilirubin [Mass/Vol] 0.6 mg/dL NINF - 1.5 mg/dL [facility] Bilirubin.direct [Mass/Vol] 0.1 mg/dL NINF - 0.3 mg/dL [facility] Comment on above: Specimen hemolyzed. Direct bilirubin results may be falsely decreased. Interpret within the clinical context. Interpretation and review of laboratory results Abnormal [facility] Protein [Mass/Vol] 7.4 g/dL 6.4 - 8.3 g/dL [facility] LIPID PANEL WITH REFLEX TO M EASURED LDLon 11-09-2024 Cholesterol [Mass/Vol] 151 mg/dL NINF - 200 mg/dL [facility] Comment on above: [<200 mg/dL: Desirab le] [200-239 mg/dL: Borderline High] [>239 mg/dL: High] Cholesterol in HDL [Mass/Vol] 59 mg/dL 40 - PINF mg/dL [facility] Comment on above: [<40 mg/dL: Low (Hig h Risk)] [>59 mg/dL: High (Low Risk)] Cholesterol in LDL [Mass/Vol] 81 mg/dL 0 - 99 mg/dL [facility] Comment on above: [<100 mg/dL: Optimal ] [100-129 mg/dL: Near Optimal] [130-159 mg/dL: Borderline High] [160-189 mg/dL: High] [>189 mg/dL: Very High] Cholesterol non HDL [Mass/Vol] 92 mg/dL NINF - 130 mg/dL [facility] Cholesterol.total/Choles terol in HDL [Mass ratio] 2.6 {ratio} NINF - 4.5 [facility] Interpretation and review of laboratory results Normal [facility] Triglyceride [Mass/Vol] 55 mg/dL NINF - 150 mg/dL [facility] Comment on above: [<150 mg/dL: Desirab le] [150-199 mg/dL: Borderline] [200-499 mg/dL: High] [>500 mg/dL: Very High] MAGNESIUMon 11-09-2024 Interpretation and review of laboratory results Normal [facility] Magnesium [Mass/Vol] 1.9 mg/dL 1.6 - 2 .6 mg/dL [facility] Magnesium [Mass/Vol] 1.9 mg/dL Normal 1.6-2.6 [facility] Comment on above: Performed By: #### L IPDR, HFP, CHM7 #### [facility] (DEFAULT) [address] [place] [address] MR Brain WO contraston 11-09 IMPRESSION: Acute infarct involving the left temporal lobe consistent with a left MCA infarct. No evidence of hemorrhagic transformation OLOGY EXAM: MRI BRAIN WITH OUT CONTRAST, 11/09/2024 01:03 AM COMPARISON: CT CEREBRAL PERFUSION ANALYSIS November 08, 2024 CLINICAL INDICATIONS: 74 years Female Stroke Workup; Stroke Workup RELEVANT CLINICAL HISTORY: TECHNIQUE: A series of multisequence, multiplanar images of the brain are obtained without intravenous contrast. FINDINGS: Restricted diffusion in the left temporal lobe concerning for acute infarcts. No evidence of hemorrhagic transformation Scattered foci of T2/FLAIR signal hyperintensity are seen in the white matter of both cerebral hemispheres, nonspecific, but most likely representing chronic microvascular ischemic change. No evidence of edema. No evidence of mass lesion. No evidence of hemorrhage. No extracerebral collection. Sellar and parasellar structures are unremarkable. Posterior fossa is unremarkable. Ventricles and sulci are within normal limits. Extracranial structures are unremarkable. RADIOLOGY Elen Burch MBBS - 11/09/2024 EXAM: MRI BRAIN WITHOUT CONTRAST, 11/09/2024 01:03 AM COMPARISON: CT CEREBRAL PERFUSION ANALYSIS November 08, 2024 CLINICAL INDICATIONS: 74 years Female Stroke Workup; Stroke Workup RELEVANT CLINICAL HISTORY: TECHNIQUE: A series of multisequence, multiplanar images of the brain are obtained without intravenous contrast. FINDINGS: Restricted diffusion in the left temporal lobe concerning for acute infarcts. No evidence of hemorrhagic transformation Scattered foci of T2/FLAIR signal hyperintensity are seen in the white matter of both cerebral hemispheres, nonspecific, but most likely representing chronic microvascular ischemic change. No evidence of edema. No evidence of mass lesion. No evidence of hemorrhage. No extracerebral collection. Sellar and parasellar structures are unremarkable. Posterior fossa is unremarkable. Ventricles and sulci are within normal limits. Extracranial structures are unremarkable. IMPRESSION IMPRESSION: Acute infarct involving the left temporal lobe consistent with a left MCA infarct. No evidence of hemorrhagic transformation [facility] Radiology Study observation (narrative) [facility] MR Brain WO contrastOrdered By: Elen Burch on 11-09-2024 [facility] Work Phone: MRI BRAIN WITHOUT CONTRASTon 11-09-2024 MRI BRAIN WITHOUT CONTRAST EXAM: MRI BRAIN WITHOUT CONTRAST, 11/09/2024 01:03 AM COMPARISON: CT CEREBRAL PERFUSION ANALYSIS November 08, 2024 CLINICAL INDICATIONS: 74 years Female Stroke Workup; Stroke Workup RELEVANT CLINICAL HISTORY: TECHNIQUE: A series of multisequence, multiplanar images of the brain are obtained without intravenous contrast. FINDINGS: Restricted diffusion in the left temporal lobe concerning for acute infarcts. No evidence of hemorrhagic transformation Scattered foci of T2/FLAIR signal hyperintensity are seen in the white matter of both cerebral hemispheres, nonspecific, but most likely representing chronic microvascular ischemic change. No evidence of edema. No evidence of mass lesion. No evidence of hemorrhage. No extracerebral collection. Sellar and parasellar structures are unremarkable. Posterior fossa is unremarkable. Ventricles and sulci are within normal limits. Extracranial structures are unremarkable. IMPRESSION: Acute infarct involving the left temporal lobe consistent with a left MCA infarct. No evidence of hemorrhagic transformation Normal [facility] No Panel Informationon 11-09 [facility] 12 Lead EKGon 11-08-2024 12 Lead EKG Normal [facility] Absolute lymphocyte countOrd ered By: Phillip Maldonado on 11-08-2024 Lymphocytes Auto (Unsp spec) [#/Vol] 1.91 10*3/uL 0.83-4.51 [facility] Absolute neutrophil countOrd ered By: Phillip Maldonado on 11-08-2024 Neutrophils (Bld) [#/Vol] 6.2 10*3/uL 2.0-7.7 [facility] Activated partial thrombopla stin time (aPTT) in platelet poor plasma by coagulation aOrdered By: Phillip Maldonado on 11-08-2024 aPTT Coag (PPP) [Time] 34.5 s 24.1-36.2 [facility] Anion gap in Serum or Plasma Ordered By: Phillip Maldonado on 11-08-2024 Anion gap [Moles/Vol] 10 mmol/L 5-15 [facility] Automated lymphocyte count a s percentage of total leukocytesOrdered By: Phillip Maldonado on 11-08-2024 Lymphocytes/100 WBC Auto (Unsp spec) 21.1 % 19-41 [facility] BUN/creatinine ratioOrdered By: Phillip Maldonado on 11-08-2024 Urea nitrogen/Creatinine [Mass ratio] 15.4 mg/mg 10-20 [facility] Basic Metabolic Profile (BMP )on 11-08-2024 BUN/CRE 15.4 RATIO Normal - [facility] Comment on above: Performed By: #### L 501.4021, L100.0100, L500.2500, L300.4310, L300.3900 ####[facility] [address] [place], [place], [id number] Calcium [Mass/Vol] 9.3 mg/dL Normal 7.6-11.0 [facility] Comment on above: Performed By: #### L 501.4021, L100.0100, L500.2500, L300.4310, L300.3900 ####[facility] [address] [place], [address] Chloride [Moles/Vol] 103 mmol/L Normal 98-108 [facility] Comment on above: Performed By: #### L 501.4021, L100.0100, L500.2500, L300.4310, L300.3900 ####[facility] [address] [place], [address] CO2 [Moles/Vol] 26.1 mmol/L Normal 21.0-32.0 [facility] Comment on above: Performed By: #### L 501.4021, L100.0100, L500.2500, L300.4310, L300.3900 ####[facility] [address] [place], [address] Creatinine [Mass/Vol] 0.82 mg/dL Normal 0.70-1.20 [facility] Comment on above: Performed By: #### L 501.4021, L100.0100, L500.2500, L300.4310, L300.3900 ####[facility] [address] [place], [address] ECRCL 72.42 ml/min Normal 50-250 [facility] Comment on above: Performed By: #### L 501.4021, L100.0100, L500.2500, L300.4310, L300.3900 ####[facility] [address] [place], [address] GAP 10 Normal 5-15 [facility] Comment on above: Performed By: #### L 501.4021, L100.0100, L500.2500, L300.4310, L300.3900 ####[facility] [address] [place], [address] GFR/1.73 sq M.predicted among non-blacks MDRD (S/P/Bld) [Vol rate/Area] 76 mL/min/{1.73_m2} Normal >60 [facility] Comment on above: Result Comment: mL/m in/1.73m2 CKD-EPI Creatinine Equation (2020) Performed By: #### L 501.4021, L100.0100, L500.2500, L300.4310, L300.3900 ####[facility] [address] [place], [address] Glucose [Mass/Vol] 129 mg/dL High 70-99 [facility] Comment on above: Performed By: #### L 501.4021, L100.0100, L500.2500, L300.4310, L300.3900 ####[facility] [address] [place], [address] Potassium [Moles/Vol] 4.2 mmol/L Normal 3.3-5.1 [facility] Comment on above: Performed By: #### L 501.4021, L100.0100, L500.2500, L300.4310, L300.3900 ####[facility] [address] [place], [address] Sodium [Moles/Vol] 139 mmol/L Normal 133-145 [facility] Comment on above: Performed By: #### L 501.4021, L100.0100, L500.2500, L300.4310, L300.3900 ####[facility] [address] [place], [address] Urea nitrogen [Mass/Vol] 13 mg/dL Normal 4-19 [facility] Comment on above: Performed By: #### L 501.4021, L100.0100, L500.2500, L300.4310, L300.3900 ####[facility] [address] [place], [place], [address] Basophil percentageOrdered B y: Phillip Maldonado on 11-08-2024 Basophils/100 WBC (Bld) 0.7 % 0-1 [facility] Bedside Glucoseon 11-08-2024 [facility] GLU 127 mg/dL High 74-106 [facility] Comment on above: Result Comment: FRANCINE SKINNER OF PATIENT CARE PER NURSING PROTOCOL Performed By: #### L 501.080 ####[facility] [address] [place], [place], [id number] CBC AND ELECTRONIC DIFFon Basophils (Bld) [#/Vol] 0.05 10*3/uL 0.00 - 0.15 K/uL [facility] Basophils/100 WBC (Bld) 0.6 % [facility] Differential cell count method Nom (Bld) Electronic Differential [facility] Eosinophils (Bld) [#/Vol] 0.14 10*3/uL 0.00 - 0.42 K/uL [facility] Eosinophils/100 WBC (Bld) 1.6 % [facility] Erythrocyte distribution width (RBC) [Ratio] 15.4 % High 10.8 - 14.9 % [facility] Hematocrit (Bld) [Volume fraction] 53 % High 34.9 - 44.3 % [facility] Hemoglobin (Bld) [Mass/Vol] 16.1 g/dL High 11.4 - 15.2 g/dL [facility] Immature granulocytes (Bld) [#/Vol] K/uL NINF - 0.08 K/uL [facility] Immature granulocytes/100 WBC (Bld) 0.3 % [facility] Interpretation and review of laboratory results Abnormal [facility] Lymphocytes (Bld) [#/Vol] 1.52 10*3/uL 1.16 - 3.51 K/uL [facility] Lymphocytes/100 WBC (Bld) 17.6 % [facility] MCH (RBC) [Entitic mass] 27.5 pg 25. 9 - 33.9 pg [facility] MCHC (RBC) [Mass/Vol] 30.4 g/dL Low 31.4 - 35.9 g/dL [facility] MCV (RBC) [Entitic vol] 90.4 fL 79.6 - 97.7 fL [facility] Monocytes (Bld) [#/Vol] 0.72 10*3/uL 0.22 - 0.87 K/uL [facility] Monocytes/100 WBC (Bld) 8.3 % O [facility] Neutrophils (Bld) [#/Vol] 6.17 10*3/uL 1.64 - 7.28 K/uL [facility] Nucleated RBC/100 WBC (Bld) [Ratio] 0 % NINF [facility] Platelet mean volume (Bld) [Entitic vol] 10.3 fL 8.5 - 12.2 fL [facility] Platelets (Bld) [#/Vol] 202 10*3/uL 150 - 393 K/uL [facility] RBC (Bld) [#/Vol] 5.86 10*6/uL High [facility] Segmented neutrophils/100 WBC (Bld) 71.6 % [facility] WBC (Bld) [#/Vol] 8.63 10*3/uL 3.99 - 11.19 K/uL [facility] Basophils (Bld) [#/Vol] 0.05 10*3/uL Normal 0.00-0.15 [facility] Comment on above: Performed By: #### L IPDR, HFP, CHM7 #### [facility] (DEFAULT) [address] [address] Basophils/100 WBC (Bld) 0.6 % Normal O [facility] Comment on above: Performed By: #### L IPDR, HFP, CHM7 #### [facility] (DEFAULT) [address] [address] DIFF STATUS Electronic Differential Normal [facility] Comment on above: Performed By: #### L IPDR, HFP, CHM7 #### [facility] (DEFAULT) [address] [place] [address] Eosinophils (Bld) [#/Vol] 0.14 10*3/uL Normal 0.00-0.42 [facility] Comment on above: Performed By: #### L IPDR, HFP, CHM7 #### [facility] (DEFAULT) [address] [place] [address] Eosinophils/100 WBC (Bld) 1.6 % Normal [facility] Comment on above: Performed By: #### L IPDR, HFP, CHM7 #### [facility] (DEFAULT) [address] [place] [address] Hematocrit (Bld) [Volume fraction] 53.0 % High 34.9-44.3 [facility] Comment on above: Performed By: #### L IPDR, HFP, CHM7 #### [facility] (DEFAULT) [address] [place] [address] Hemoglobin (Bld) [Mass/Vol] 16.1 g/dL High 11.4-15.2 [facility] Comment on above: Performed By: #### L IPDR, HFP, CHM7 #### [facility] (DEFAULT) [address] [place] [address] Immature Grans % 0.3 % Normal [facility] Comment on above: Performed By: #### L IPDR, HFP, CHM7 #### [facility] (DEFAULT) [address] [place] [address] Immature Grans Absolute < Normal <=0.08 [facility] Comment on above: Performed By: #### L IPDR, HFP, CHM7 #### [facility] (DEFAULT) [address] [place] [address] Lymphocytes (Bld) [#/Vol] 1.52 10*3/uL Normal 1.16-3.51 [facility] Comment on above: Performed By: #### L IPDR, HFP, CHM7 #### [facility] (DEFAULT) [address] [address] Lymphocytes/100 WBC (Bld) 17.6 % Normal [facility] Comment on above: Performed By: #### L IPDR, HFP, CHM7 #### [facility] (DEFAULT) [address] [place] [address] MCV (RBC) [Entitic vol] 90.4 fL Normal 79.6-97.7 [facility] Comment on above: Performed By: #### L IPDR, HFP, CHM7 #### [facility] (DEFAULT) [address] [address] Mean Cell Hgb 27.5 pg Normal 25.9-33.9 [facility] Comment on above: Performed By: #### L IPDR, HFP, CHM7 #### [facility] (DEFAULT) [address] [place] [address] Mean Cell Hgb Conc 30.4 g/dL Low 31.4-35.9 [facility] Comment on above: Performed By: #### L IPDR, HFP, CHM7 #### [facility] (DEFAULT) [address] [address] Monocytes (Bld) [#/Vol] 0.72 10*3/uL Normal 0.22-0.87 [facility] Comment on above: Performed By: #### L IPDR, HFP, CHM7 #### [facility] (DEFAULT) [address] [address] Monocytes/100 WBC (Bld) 8.3 % Normal [facility] Comment on above: Performed By: #### L IPDR, HFP, CHM7 #### [facility] (DEFAULT) [address] [place] [address] Nucleated RBC 0.0 /100 WBC Normal <=0.2 [facility] Comment on above: Performed By: #### L IPDR, HFP, CHM7 #### [facility] (DEFAULT) [address] [place] [address] Platelet mean volume (Bld) [Entitic vol] 10.3 fL Normal 8.5-12.2 [facility] Comment on above: Performed By: #### L IPDR, HFP, CHM7 #### [facility] (DEFAULT) [address] [place] [address] Platelets (Bld) [#/Vol] 202 10*3/uL Normal 150-393 [facility] Comment on above: Performed By: #### L IPDR, HFP, CHM7 #### [facility] (DEFAULT) [address] [place] [address] [phone] RBC (Bld) [#/Vol] 5.86 10*6/uL High 3.91-5.04 [facility] Comment on above: Performed By: #### L IPDR, HFP, CHM7 #### [facility] (DEFAULT) [address] [place] [address] 61410 RBC Distribution 15.4 % High 10.8-14.9 [facility] Comment on above: Performed By: #### L IPDR, HFP, CHM7 #### [facility] (DEFAULT) [address] [place] [address] 27202 Segs + Bands Auto 71.6 % Normal [facility] Comment on above: Performed By: #### L IPDR, HFP, CHM7 #### [facility] (DEFAULT) [address] [place] [address] 64469 Segs + Bands,Absolute Auto 6.17 K/uL Normal 1.64-7.28 [facility] Comment on above: Performed By: #### L IPDR, HFP, CHM7 #### [facility] (DEFAULT) [address] [place] [address] 10506 WBC (Bld) [#/Vol] 8.63 10*3/uL Normal 3.99-11.19 [facility] Comment on above: Performed By: #### L IPDR, HFP, CHM7 #### [facility] (DEFAULT) [address] [place] [address] CBC W/Diff, Automatedon 04-0 7-2024 Absolute Lymph 1.91 X10 3/uL Normal 0.83-4.51 [facility] Comment on above: Performed By: #### L 501.4021, L100.0100, L500.2500, L300.4310, L300.3900 ####[facility] [address] [place], [address] Absolute Neut 6.2 X10 3/uL Normal 2.0-7.7 [facility] Comment on above: Performed By: #### L 501.4021, L100.0100, L500.2500, L300.4310, L300.3900 ####[facility] [address] [place], [address] Basophils/100 WBC (Bld) 0.7 % Normal 0-1 [facility] Comment on above: Performed By: #### L 501.4021, L100.0100, L500.2500, L300.4310, L300.3900 ####[facility] [address] [place], [address] Eosinophils/100 WBC (Bld) 1.8 % Normal 0-5 [facility] Comment on above: Performed By: #### L 501.4021, L100.0100, L500.2500, L300.4310, L300.3900 ####[facility] [address] [place], [address] Erythrocyte distribution width (RBC) [Ratio] 15.3 % High 11.6-14.6 [facility] Comment on above: Performed By: #### L 501.4021, L100.0100, L500.2500, L300.4310, L300.3900 ####[facility] [address] [place], [address] Hematocrit (Bld) [Volume fraction] 47.4 % High 37-47 [facility] Comment on above: Performed By: #### L 501.4021, L100.0100, L500.2500, L300.4310, L300.3900 ####[facility] [address] [place], [address] Hemoglobin (Bld) [Mass/Vol] 15.3 g/dL High 12.0-15.0 [facility] Comment on above: Performed By: #### L 501.4021, L100.0100, L500.2500, L300.4310, L300.3900 ####[facility] [address] [place], [address] IG% 0.300 Normal 0.0-0.9 [facility] Comment on above: Result Comment: IG% - Immature Granulocytes (promyelocytes, myelocytes andmetamyelocytes) > 1% indicates that a LEFT SHIFT is Present. Performed By: #### L 501.4021, L100.0100, L500.2500, L300.4310, L300.3900 ####[facility] [address] [place], [address] Lymphocytes/100 WBC (Bld) 21.1 % Normal 19-41 [facility] Comment on above: Performed By: #### L 501.4021, L100.0100, L500.2500, L300.4310, L300.3900 ####[facility] [address] [place], [address] MCH (RBC) [Entitic mass] 28.6 pg Normal 27.0-32.0 [facility] Comment on above: Performed By: #### L 501.4021, L100.0100, L500.2500, L300.4310, L300.3900 ####[facility] [address] [place], [address] MCHC (RBC) [Mass/Vol] 32.3 g/dL Normal 32-36 [facility] Comment on above: Performed By: #### L 501.4021, L100.0100, L500.2500, L300.4310, L300.3900 ####[facility] [address] [place], [address] MCV (RBC) [Entitic vol] 88.6 fL Normal 81-99 [facility] Comment on above: Performed By: #### L 501.4021, L100.0100, L500.2500, L300.4310, L300.3900 ####[facility] [address] [place], [address] Monocytes/100 WBC (Bld) 8.2 % Normal 0-10 [facility] Comment on above: Performed By: #### L 501.4021, L100.0100, L500.2500, L300.4310, L300.3900 ####[facility] [address] [place], [address] Neutrophils/100 WBC (Bld) 67.9 % Normal 47-70 [facility] Comment on above: Performed By: #### L 501.4021, L100.0100, L500.2500, L300.4310, L300.3900 ####[facility] [address] [place], [address] Nucleated RBC (Bld) [#/Vol] 0 10*3/uL Normal 0-5 [facility] Comment on above: Performed By: #### L 501.4021, L100.0100, L500.2500, L300.4310, L300.3900 ####[facility] [address] [place], [address] Platelet mean volume (Bld) [Entitic vol] 10.0 fL Normal 6.2-12.0 [facility] Comment on above: Performed By: #### L 501.4021, L100.0100, L500.2500, L300.4310, L300.3900 ####[facility] [address] [place], [address] Platelets (Bld) [#/Vol] 194 10*3/uL Normal 150-450 [facility] Comment on above: Performed By: #### L 501.4021, L100.0100, L500.2500, L300.4310, L300.3900 ####[facility] [address] [place], [address] RBC (Bld) [#/Vol] 5.35 10*6/uL Normal 4.2-5.4 [facility] Comment on above: Performed By: #### L 501.4021, L100.0100, L500.2500, L300.4310, L300.3900 ####[facility] [address] [place], [address] RDW SD 49.4 fl High 35.1-43.9 [facility] Comment on above: Performed By: #### L 501.4021, L100.0100, L500.2500, L300.4310, L300.3900 ####[facility] [address] [place], [address] WBC (Bld) [#/Vol] 9.1 10*3/uL Normal 4.4-11.0 [facility] Comment on above: Performed By: #### L 501.4021, L100.0100, L500.2500, L300.4310, L300.3900 ####[facility] [address] [place], [address] CHEM 7 (LYTES,BUN,CREA,GLUC) on 11-08-2024 Anion gap [Moles/Vol] 24 mmol/L High 7-17 [facility] Comment on above: Performed By: #### L IPDR, HFP, CHM7 #### [facility] (DEFAULT) [address] [place] [address] 55117 Chloride [Moles/Vol] 100 mmol/L Normal 98-108 [facility] Comment on above: Performed By: #### L IPDR, HFP, CHM7 #### [facility] (DEFAULT) [address] [place] [address] 12507 CO2 [Moles/Vol] 20 mmol/L Low 21-31 [facility] Comment on above: Performed By: #### L IPDR, HFP, CHM7 #### [facility] (DEFAULT) [address] [place] [address] 20319 Creatinine [Mass/Vol] 0.84 mg/dL Normal 0.50-1.20 [facility] Comment on above: Performed By: #### L IPDR, HFP, CHM7 #### [facility] (DEFAULT) [address] [place] [address] 55381 GFR/1.73 sq M.predicted among non-blacks MDRD (S/P/Bld) [Vol rate/Area] 74 mL/min/{1.73_m2} Normal >=60 [facility] Comment on above: Result Comment: Repo rted eGFR is based on the CKD-EPI 2020 equation using creatinine, age, and sex. Performed By: #### L IPDR, HFP, CHM7 #### [facility] (DEFAULT) [address] [place] [address] 31800 Glucose [Mass/Vol] 109 mg/dL Normal Nonfastin g : 70-179 mg/dL; Fastin-99 [facility] Comment on above: Performed By: #### L IPDR, HFP, CHM7 #### [facility] (DEFAULT) [address] [place] [address] 20993 Osmolality [Osmolality] 293 mosm/kg Normal 278-305 [facility] Comment on above: Performed By: #### L IPDR, HFP, CHM7 #### [facility] (DEFAULT) [address] [place] [address] 21703 Potassium [Moles/Vol] 5.6 mmol/L High 3.5-5.0 [facility] Comment on above: Result Comment: Spec imen slightly hemolyzed. Potassium results may be falsey elevated by more than 0.5 mmol/L. Consider recollection. Performed By: #### L IPDR, HFP, CHM7 #### [facility] (DEFAULT) [address] [place] [address] 11944 Sodium [Moles/Vol] 138 mmol/L Normal 135-145 [facility] Comment on above: Performed By: #### L IPDR, HFP, CHM7 #### [facility] (DEFAULT) [address] [place] [address] Urea nitrogen [Mass/Vol] 13 mg/dL Normal 7-25 [facility] Comment on above: Performed By: #### L IPDR, HFP, CHM7 #### [facility] (DEFAULT) [address] [place] [address] 67230 Urea nitrogen/Creatinine [Mass ratio] 15 mg/mg Normal [facility] Comment on above: Performed By: #### L IPDR, HFP, CHM7 #### [facility] (DEFAULT) [address] [place] [address] 42747 [facility] 7 - EDon 11-08-2024 Anion gap [Moles/Vol] 8 mmol/L 7 - 17 mmol/L [facility] Chloride [Moles/Vol] 101 mmol/L 98 - 10 8 mmol/L [facility] CO2 [Moles/Vol] 31 mmol/L 21 - 31 mmol/L [facility] Creatinine [Mass/Vol] 0.82 mg/dL 0.50 - 1.20 mg/dL [facility] eGFR, CKD-EPI, Female 78 - PINF [facility] Comment on above: Reported eGFR is bas ed on the CKD-EPI 2020 equation using creatinine, age, and sex. Glucose [Mass/Vol] 106 mg/dL 70 - 179 mg/dL [facility] Osmolality Calc [Osmolality] 285 [facility] Potassium [Moles/Vol] 4.5 mmol/L 3.5 - 5.0 mmol/L [facility] Sodium [Moles/Vol] 135 mmol/L 135 - 145 mmol/L [facility] Urea nitrogen [Mass/Vol] 12 mg/dL 7 - 25 mg/dL [facility] Urea nitrogen/Creatinine [Mass ratio] 15 mg/mg [facility] Anion gap [Moles/Vol] 8 mmol/L Normal 7-17 [facility] Comment on above: Performed By: #### L IPDR, HFP, CHM7 #### [facility] (DEFAULT) [address] [place] [address] 25399 Chloride [Moles/Vol] 101 mmol/L Normal 98-108 [facility] Comment on above: Performed By: #### L IPDR, HFP, CHM7 #### [facility] (DEFAULT) [address] [place] [address] 47894 CO2 [Moles/Vol] 31 mmol/L Normal 21-31 [facility] Comment on above: Performed By: #### L IPDR, HFP, CHM7 #### [facility] (DEFAULT) [address] [place] [address] 88358 Creatinine [Mass/Vol] 0.82 mg/dL Normal 0.50-1.20 [facility] Comment on above: Performed By: #### L IPDR, HFP, CHM7 #### [facility] (DEFAULT) [address] [place] [address] 38990 GFR/1.73 sq M.predicted among non-blacks MDRD (S/P/Bld) [Vol rate/Area] 76 mL/min/{1.73_m2} Normal >=60 [facility] Comment on above: Result Comment: Repo rted eGFR is based on the CKD-EPI 2020 equation using creatinine, age, and sex. Performed By: #### L IPDR, HFP, CHM7 #### [facility] (DEFAULT) [address] [place] [address] 72122 Glucose [Mass/Vol] 106 mg/dL Normal Nonfastin g : 70-179 mg/dL; Fastin-99 [facility] Comment on above: Performed By: #### L IPDR, HFP, CHM7 #### [facility] (DEFAULT) [address] [place] [address] 82533 Osmolality [Osmolality] 285 mosm/kg Normal 278-305 [facility] Comment on above: Performed By: #### L IPDR, HFP, CHM7 #### [facility] (DEFAULT) [address] [place] [address] 70318 Potassium [Moles/Vol] 4.5 mmol/L Normal 3.5-5.0 [facility] Comment on above: Performed By: #### L IPDR, HFP, CHM7 #### [facility] (DEFAULT) [address] [place] [address] 31675 Sodium [Moles/Vol] 135 mmol/L Normal 135-145 [facility] Comment on above: Performed By: #### L IPDR, HFP, CHM7 #### [facility] (DEFAULT) [address] [place] [address] 10165 Urea nitrogen [Mass/Vol] 12 mg/dL Normal 7-25 [facility] Comment on above: Performed By: #### L IPDR, HFP, CHM7 #### [facility] (DEFAULT) [address] [place] [address] 50033 Urea nitrogen/Creatinine [Mass ratio] 15 mg/mg Normal [facility] Comment on above: Performed By: #### L IPDR, HFP, CHM7 #### [facility] (DEFAULT) [address] [place] [address] ANGIO BRAIN/NECKon 2024 CT ANGIO BRAIN/NECK EXAM: CT ANGIO BRAIN/NECK, 11/08/2024 19:49 PM COMPARISON: CT CEREBRAL PERFUSION ANALYSIS November 08, 2024, CT STROKE HEAD-STROKE ALERT ONLY November 08, 2024 CLINICAL INDICATIONS: 74 years Female L M1 occlusion vs stenosis RELEVANT CLINICAL HISTORY: TECHNIQUE: A series of transaxial multislice computerized tomographic images are obtained with helical technique from top of aortic arch to vertex following bolus intravenous administration of nonionic contrast. Axial thin section source images, as well as sagittal and coronal thin section reformats, were provided at the scanner. Additional multiplanar and 3D reconstructions were provided. CONTRAST: iohexol (OMNIPAQUE) 350 MG/ML injection 1-171 mL; Route of Administration: Intravenous; Dose: 100 mL. FINDINGS: CT ANGIOGRAM NECK: AORTIC ARCH: Conventional anatomic origin of the great vessels. Atherosclerosis involving the great vessel origins is noted, without significant stenosis. RIGHT CAROTID ARTERY: Common carotid artery is patent and normal in caliber. Internal carotid artery origin at the bifurcation demonstrates atherosclerotic plaque, without significant stenosis. More distal cervical segments of the internal carotid artery are patent and normal in caliber. LEFT CAROTID ARTERY: Common carotid artery is patent and normal in caliber. Internal carotid artery origin at the bifurcation is patent and normal in caliber. More distal cervical segments of the internal carotid artery are patent and normal in caliber. RIGHT VERTEBRAL ARTERY: Origin is patent. More distal cervical segments are patent and normal in caliber. LEFT VERTEBRAL ARTERY: Origin is patent. More distal cervical segments are patent and normal in caliber. Developmentally dominant and larger in caliber compared to the right vertebral artery. OTHER: No dissection or pseudoaneurysm. CT ANGIOGRAM HEAD: INTERNAL CAROTID ARTERIES: Atherosclerotic calcifications, without significant stenosis. ANTERIOR CEREBRAL ARTERIES: Patent and normal in caliber. MIDDLE CEREBRAL ARTERIES: Filling defect of the left M1 segment with distal reconstitution suspicious for a high-grade focal stenosis. The right MCA is patent and normal in caliber. POSTERIOR CEREBRAL ARTERIES: Patent and normal in caliber. VERTEBRAL ARTERIES: Patent and normal in caliber. BASILAR ARTERY: Patent. No significant stenosis. OTHER: No aneurysm or AVM. ADDITIONAL FINDINGS: Degenerative changes are noted in the spine. Few nonspecific borderline mediastinal lymph nodes including an AP window nodule measuring 1.4 x 1.0 cm (series 5 image 468). Nonspecific asymmetric interlobular septal thickening with some centrilobular nodules may relate to an infectious/inflammatory process. IMPRESSION: 1. No significant stenosis of the carotid or vertebral arteries in the neck. 2. 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 Findings were discussed with Anh Gonzalez MD at 8:41 PM on November 08, 2024. I personally viewed and interpreted these images and I have reviewed and approved this report. Normal [facility] CT CEREBRAL PERFUSION ANALYS [place] 11-08-2024 CT CEREBRAL PERFUSION ANALYSIS EXAM: CT CEREBRAL PERFUSION ANALYSIS, 11/08/2024 18:38 PM COMPARISON: CT STROKE HEAD-STROKE ALERT ONLY November 08, 2024 CLINICAL INDICATIONS: 74 years Female Suspected Stroke RELEVANT CLINICAL HISTORY: TECHNIQUE: A series of axial multislice computerized tomographic images of the brain are obtained following rapid bolus administration of contrast. FINDINGS: Examination is technically adequate. Viz[employer]ai automated software assessment: Estimated infarct core (CBF<30%): 6 mL. Region involving the left parietal lobe. Estimated penumbra (perfusion mismatch): 19 mL. Region involving the left parietal and temporal lobes. Tmax >6s: 25 mL. Additional, notable findings on the syngo.via perfusion maps: None. IMPRESSION: Small core infarct with ischemic penumbra in left MCA distribution in keeping with reported M1 occlusion I personally viewed and interpreted these images and I have reviewed and approved this report. Normal [facility] IMPRESSION: Small core infarct with ischemic penumbra in left MCA distribution in keeping with reported M1 occlusion I personally viewed and interpreted these images and I have reviewed and approved this report. OLOGY EXAM: CT CEREBRAL PERFUSION ANALYSIS, 11/08/2024 18:38 PM COMPARISON: CT STROKE HEAD-STROKE ALERT ONLY November 08, 2024 CLINICAL INDICATIONS: 74 years Female Suspected Stroke RELEVANT CLINICAL HISTORY: TECHNIQUE: A series of axial multislice computerized tomographic images of the brain are obtained following rapid bolus administration of contrast. FINDINGS: Examination is technically adequate. Viz[employer]ai automated software assessment: Estimated infarct core (CBF<30%): 6 mL. Region involving the left parietal lobe. Estimated penumbra (perfusion mismatch): 19 mL. Region involving the left parietal and temporal lobes. Tmax >6s: 25 mL. Additional, notable findings on the syngo.via perfusion maps: None. RADIOLOGY Fareed Jacobs MD - 11/08/2024 EXAM: CT CEREBRAL PERFUSION ANALYSIS, 11/08/2024 18:38 PM COMPARISON: CT STROKE HEAD-STROKE ALERT ONLY November 08, 2024 CLINICAL INDICATIONS: 74 years Female Suspected Stroke RELEVANT CLINICAL HISTORY: TECHNIQUE: A series of axial multislice computerized tomographic images of the brain are obtained following rapid bolus administration of contrast. FINDINGS: Examination is technically adequate. Viz[employer]ai automated software assessment: Estimated infarct core (CBF<30%): 6 mL. Region involving the left parietal lobe. Estimated penumbra (perfusion mismatch): 19 mL. Region involving the left parietal and temporal lobes. Tmax >6s: 25 mL. Additional, notable findings on the syngo.via perfusion maps: None. IMPRESSION IMPRESSION: Small core infarct with ischemic penumbra in left MCA distribution in keeping with reported M1 occlusion I personally viewed and interpreted these images and I have reviewed and approved this report. [facility] Rad[facility]ative[facility] for per fusion and CT angiogram Head vessels WO and W contrast [place] 11-08-2024 IMPRESSION: 1. No significant stenosis of the carotid or vertebral arteries in the neck. 2. 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 Findings were discussed with Anh Gonzalez MD at 8:41 PM on November 08, 2024. I personally viewed and interpreted these images and I have reviewed and approved this report. OLOGY EXAM: CT ANGIO BRAIN/NECK, 11/08/2024 19:49 PM COMPARISON: CT CEREBRAL PERFUSION ANALYSIS November 08, 2024, CT STROKE HEAD-STROKE ALERT ONLY November 08, 2024 CLINICAL INDICATIONS: 74 years Female L M1 occlusion vs stenosis RELEVANT CLINICAL HISTORY: TECHNIQUE: A series of transaxial multislice computerized tomographic images are obtained with helical technique from top of aortic arch to vertex following bolus intravenous administration of nonionic contrast. Axial thin section source images, as well as sagittal and coronal thin section reformats, were provided at the scanner. Additional multiplanar and 3D reconstructions were provided. CONTRAST: iohexol (OMNIPAQUE) 350 MG/ML injection 1-171 mL; Route of Administration: Intravenous; Dose: 100 mL. FINDINGS: CT ANGIOGRAM NECK: AORTIC ARCH: Conventional anatomic origin of the great vessels. Atherosclerosis involving the great vessel origins is noted, without significant stenosis. RIGHT CAROTID ARTERY: Common carotid artery is patent and normal in caliber. Internal carotid artery origin at the bifurcation demonstrates atherosclerotic plaque, without significant stenosis. More distal cervical segments of the internal carotid artery are patent and normal in caliber. LEFT CAROTID ARTERY: Common carotid artery is patent and normal in caliber. Internal carotid artery origin at the bifurcation is patent and normal in caliber. More distal cervical segments of the internal carotid artery are patent and normal in caliber. RIGHT VERTEBRAL ARTERY: Origin is patent. More distal cervical segments are patent and normal in caliber. LEFT VERTEBRAL ARTERY: Origin is patent. More distal cervical segments are patent and normal in caliber. Developmentally dominant and larger in caliber compared to the right vertebral artery. OTHER: No dissection or pseudoaneurysm. CT ANGIOGRAM HEAD: INTERNAL CAROTID ARTERIES: Atherosclerotic calcifications, without significant stenosis. ANTERIOR CEREBRAL ARTERIES: Patent and normal in caliber. MIDDLE CEREBRAL ARTERIES: Filling defect of the left M1 segment with distal reconstitution suspicious for a high-grade focal stenosis. The right MCA is patent and normal in caliber. POSTERIOR CEREBRAL ARTERIES: Patent and normal in caliber. VERTEBRAL ARTERIES: Patent and normal in caliber. BASILAR ARTERY: Patent. No significant stenosis. OTHER: No aneurysm or AVM. ADDITIONAL FINDINGS: Degenerative changes are noted in the spine. Few nonspecific borderline mediastinal lymph nodes including an AP window nodule measuring 1.4 x 1.0 cm (series 5 image 468). Nonspecific asymmetric interlobular septal thickening with some centrilobular nodules may relate to an infectious/inflammatory process. RADIOLOGY Fareed Jacobs MD - 11/08/2024 EXAM: CT ANGIO BRAIN/NECK, 11/08/2024 19:49 PM COMPARISON: CT CEREBRAL PERFUSION ANALYSIS November 08, 2024, CT STROKE HEAD-STROKE ALERT ONLY November 08, 2024 CLINICAL INDICATIONS: 74 years Female L M1 occlusion vs stenosis RELEVANT CLINICAL HISTORY: TECHNIQUE: A series of transaxial multislice computerized tomographic images are obtained with helical technique from top of aortic arch to vertex following bolus intravenous administration of nonionic contrast. Axial thin section source images, as well as sagittal and coronal thin section reformats, were provided at the scanner. Additional multiplanar and 3D reconstructions were provided. CONTRAST: iohexol (OMNIPAQUE) 350 MG/ML injection 1-171 mL; Route of Administration: Intravenous; Dose: 100 mL. FINDINGS: CT ANGIOGRAM NECK: AORTIC ARCH: Conventional anatomic origin of the great vessels. Atherosclerosis involving the great vessel origins is noted, without significant stenosis. RIGHT CAROTID ARTERY: Common carotid artery is patent and normal in caliber. Internal carotid artery origin at the bifurcation demonstrates atherosclerotic plaque, without significant stenosis. More distal cervical segments of the internal carotid artery are patent and normal in caliber. LEFT CAROTID ARTERY: Common carotid artery is patent and normal in caliber. Internal carotid artery origin at the bifurcation is patent and normal in caliber. More distal cervical segments of the internal carotid artery are patent and normal in caliber. RIGHT VERTEBRAL ARTERY: Origin is patent. More distal cervical segments are patent and normal in caliber. LEFT VERTEBRAL ARTERY: Origin is patent. More distal cervical segments are patent and normal in caliber. Developmentally dominant and larger in caliber compared to the right vertebral artery. OTHER: No dissection or pseudoaneurysm. CT ANGIOGRAM HEAD: INTERNAL CAROTID ARTERIES: Atherosclerotic calcifications, without significant stenosis. ANTERIOR CEREBRAL ARTERIES: Patent and normal in caliber. MIDDLE CEREBRAL ARTERIES: Filling defect of the left M1 segment with distal reconstitution suspicious for a high-grade focal stenosis. The right MCA is patent and normal in caliber. POSTERIOR CEREBRAL ARTERIES: Patent and normal in caliber. VERTEBRAL ARTERIES: Patent and normal in caliber. BASILAR ARTERY: Patent. No significant stenosis. OTHER: No aneurysm or AVM. ADDITIONAL FINDINGS: Degenerative changes are noted in the spine. Few nonspecific borderline mediastinal lymph nodes including an AP window nodule measuring 1.4 x 1.0 cm (series 5 image 468). Nonspecific asymmetric interlobular septal thickening with some centrilobular nodules may relate to an infectious/inflammatory process. IMPRESSION IMPRESSION: 1. No significant stenosis of the carotid or vertebral arteries in the neck. 2. 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 Findings were discussed with Anh Gonzalez MD at 8:41 PM on November 08, 2024. I personally viewed and interpreted these images and I have reviewed and approved this report. [facility] Radiology Study observation (narrative) [facility] CT Head limitedon 11-08-2024 IMPRESSION: No definite findings of large vessel occlusion. Of note, there is reported history of left M1 occlusion. No obvious findings of large infarct but evolving infarct in areas of prior ischemia/infarction be difficult to entirely exclude. Consider MRI. Findings were discussed with Anh Gonzalez MD at 6:25 PM on November 08, 2024. I personally viewed and interpreted these images and I have reviewed and approved this report. OLOGY EXAM: CT STROKE HEAD-STROKE ALERT ONLY, 11/08/2024 6:17 PM COMPARISON: CT CEREBRAL PERFUSION ANALYSIS November 08, 2024 CLINICAL INDICATIONS: 74 years Female Suspected Stroke; Suspected Stroke RELEVANT CLINICAL HISTORY: TECHNIQUE: A series of transaxial computerized tomographic images are obtained from base of skull to vertex without intravenous contrast. Axial whole-head and thin section posterior fossa slices are provided. Reformats: Sagittal and coronal. FINDINGS: Encephalomalacia in the right cerebellum. Small hypodensities in the left basal ganglia and right frontal lobe could represent age indeterminate lacunar infarcts. No acute intracranial hemorrhage is seen. No significant mass effect or midline shift. Ventricles are normal in size and configuration for patient age. Skull appears intact. No acute findings in the visualized orbits. No acute findings in the visualized paranasal sinuses. Visualized mastoid air cells are clear. RADIOLOGY Fareed Jacobs MD - 11/08/2024 EXAM: CT STROKE HEAD-STROKE ALERT ONLY, 11/08/2024 6:17 PM COMPARISON: CT CEREBRAL PERFUSION ANALYSIS November 08, 2024 CLINICAL INDICATIONS: 74 years Female Suspected Stroke; Suspected Stroke RELEVANT CLINICAL HISTORY: TECHNIQUE: A series of transaxial computerized tomographic images are obtained from base of skull to vertex without intravenous contrast. Axial whole-head and thin section posterior fossa slices are provided. Reformats: Sagittal and coronal. FINDINGS: Encephalomalacia in the right cerebellum. Small hypodensities in the left basal ganglia and right frontal lobe could represent age indeterminate lacunar infarcts. No acute intracranial hemorrhage is seen. No significant mass effect or midline shift. Ventricles are normal in size and configuration for patient age. Skull appears intact. No acute findings in the visualized orbits. No acute findings in the visualized paranasal sinuses. Visualized mastoid air cells are clear. IMPRESSION IMPRESSION: No definite findings of large vessel occlusion. Of note, there is reported history of left M1 occlusion. No obvious findings of large infarct but evolving infarct in areas of prior ischemia/infarction be difficult to entirely exclude. Consider MRI. Findings were discussed with Anh Gonzalez MD at 6:25 PM on November 08, 2024. I personally viewed and interpreted these images and I have reviewed and approved this report. [facility] Radiology Study observation (narrative) [facility] CT Head limitedOrdered By: Zita Jacobs on 11-08-2024 [facility] CT STROKE HEAD-STROKE ALERT ONLYon 11-08-2024 CT STROKE HEAD-STROKE ALERT ONLY EXAM: CT STROKE HEAD-STROKE ALERT ONLY, 11/08/2024 6:17 PM COMPARISON: CT CEREBRAL PERFUSION ANALYSIS November 08, 2024 CLINICAL INDICATIONS: 74 years Female Suspected Stroke; Suspected Stroke RELEVANT CLINICAL HISTORY: TECHNIQUE: A series of transaxial computerized tomographic images are obtained from base of skull to vertex without intravenous contrast. Axial whole-head and thin section posterior fossa slices are provided. Reformats: Sagittal and coronal. FINDINGS: Encephalomalacia in the right cerebellum. Small hypodensities in the left basal ganglia and right frontal lobe could represent age indeterminate lacunar infarcts. No acute intracranial hemorrhage is seen. No significant mass effect or midline shift. Ventricles are normal in size and configuration for patient age. Skull appears intact. No acute findings in the visualized orbits. No acute findings in the visualized paranasal sinuses. Visualized mastoid air cells are clear. IMPRESSION: No definite findings of large vessel occlusion. Of note, there is reported history of left M1 occlusion. No obvious findings of large infarct but evolving infarct in areas of prior ischemia/infarction be difficult to entirely exclude. Consider MRI. Findings were discussed with Anh Gonzalez MD at 6:25 PM on November 08, 2024. I personally viewed and interpreted these images and I have reviewed and approved this report. Normal [facility] Carbon dioxide, total [Moles /volume] in Central venous bloodOrdered By: Phillip Maldonado on 11-08-2024 CO2 [Moles/Vol] 26.1 mmol/L 21.0-32.0 [facility] Chloride assayOrdered By: colton Maldonado on 11-08-2024 Chloride [Moles/Vol] 103 mmol/L 98-108 [facility] Emergency Department Summary on 11-08-2024 Emergency Department Summary Normal [facility] Eosinophil percentageOrdered By: Phillip Maldonado on 11-08-2024 Eosinophils/100 WBC (Bld) 1.8 % 0-5 [facility] Erythrocyte distribution wid th (RBC) [Ratio]Ordered By: Phillip Maldonado on 11-08-2024 Erythrocyte distribution width (RBC) [Entitic vol] 49.4 fL High 35.1-43.9 [facility] Erythrocyte distribution wid th ratioOrdered By: Phillip Maldonado on 11-08-2024 Erythrocyte distribution width (RBC) [Ratio] 15.3 % High 11.6-14.6 [facility] Erythrocyte distribution wid th standard deviationOrdered By: Phillip Maldonado on 11-08-2024 Erythrocyte distribution width (RBC) [Ratio] 49.4 fl High 35.1-43.9 [facility] Estimation of creatinine martín aranceOrdered By: Phillip Maldonado on 11-08-2024 Estimated Creatinine Clearance Calc 72.42 ml/min 50-250 [facility] GFR/1.73 sq M.predicted ronit g non-blacks MDRD (S/P/Bld) [Vol rate/Area]Ordered By: Phillip Maldonado on 11-08-2024 Estimated GFR (MDRD) Non-Af Amer 76 >60 [facility] Comment on above: mL/min/1.73m2 CKD-EP I Creatinine Equation (2020) GLUCOSE POCon 11-08-2024 Glucose [Mass/Vol] 114 mg/dL 70 - 179 mg/dL [facility] POC Sample Type CAPBL [facility] Test performed at ad dress of the patient encounter. [facility] Glucose [Mass/Vol] 84 mg/dL 70 - 179 mg/dL [facility] POC Sample Type VENO [facility] Test performed at ad dress of the patient encounter. [facility] Glomerular filtration rate ( GFR) estimation/1.73 sq m using serum, plasma, or whole bOrdered By: Phillip Maldonado on 11-08-2024 GFR/1.73 sq M.predicted among non-blacks MDRD (S/P/Bld) [Vol rate/Area] 76 mL/min/{1.73_m2} >60 [facility] Comment on above: mL/min/1.73m2 CKD-EP I Creatinine Equation (2020) Gl[facility] at [facility] deOrdered By: Phillip Maldonado on 11-08-2024 Glucose [Mass/Vol] 127 mg/dL High 74-106 [facility] Comment on above: MANAGEMENT OF PATIEN T CARE PER NURSING PROTOCOL HEMOGLOBIN A1Con 11-08-2024 Average glucose Estimated from glycated hemoglobin (Bld) [Mass/Vol] 151 mg/dL [facility] HbA1c (Bld) [Mass fraction] 6.9 % High 4.7 - 5.6 % [facility] Interpretation and review of laboratory results Abnormal [facility] Glucose [Mass/Vol] 151 mg/dL Normal [facility] Comment on above: Performed By: #### L IPDR, HFP, CHM7 #### [facility] (DEFAULT) [address] [place], [place] [id number] Hemoglobin A1C HPLC 6.9 % High 4.7-5.6 [facility] Comment on above: Performed By: #### L IPDR, HFP, CHM7 #### [facility] (DEFAULT) [address] [place] [address] HEPATIC FUNCTION PANELon Albumin [Mass/Vol] 3.9 g/dL 3.5 - 5.0 g/dL [facility] ALP [Catalytic activity/Vol] 101 U/L 32 - 126 U/L [facility] ALT [Catalytic activity/Vol] 7 U/L Low 9 - 48 U/L [facility] AST [Catalytic activity/Vol] 12 U/L 10 - 39 U/L [facility] Bilirubin [Mass/Vol] 0.6 mg/dL NINF - 1.5 mg/dL [facility] Bilirubin.direct [Mass/Vol] 0.1 mg/dL NINF - 0.3 mg/dL [facility] Interpretation and review of laboratory results Abnormal [facility] Protein [Mass/Vol] 7.3 g/dL 6.4 - 8.3 g/dL [facility] Albumin [Mass/Vol] 3.9 g/dL Normal 3.5-5.0 [facility] Comment on above: Performed By: #### L IPDR, HFP, CHM7 #### [facility] (DEFAULT) [address] [place] [address] ALP [Catalytic activity/Vol] 101 U/L Normal 32-126 [facility] Comment on above: Performed By: #### L IPDR, HFP, CHM7 #### [facility] (DEFAULT) [address] [place] [address] ALT [Catalytic activity/Vol] 7 U/L Low 9-48 [facility] Comment on above: Performed By: #### L IPDR, HFP, CHM7 #### [facility] (DEFAULT) [address] [place] [address] AST [Catalytic activity/Vol] 12 U/L Normal 10-39 [facility] Comment on above: Performed By: #### L IPDR, HFP, CHM7 #### [facility] (DEFAULT) [address] [place] [address]771 Bilirubin [Mass/Vol] 0.6 mg/dL Normal <1.5 [facility] Comment on above: Performed By: #### L IPDR, HFP, CHM7 #### [facility] (DEFAULT) [address] [place] [address] Bilirubin.indirect [Mass/Vol] 0.1 mg/dL Normal <0.3 [facility] Comment on above: Performed By: #### L IPDR, HFP, CHM7 #### [facility] (DEFAULT) [address] [place] [address]71 Protein [Mass/Vol] 7.3 g/dL Normal 6.4-8.3 [facility] Comment on above: Performed By: #### L IPDR, HFP, CHM7 #### [facility] (DEFAULT) [address] [place] [address] Albumin [Mass/Vol] 4.2 g/dL Normal 3.5-5.0 [facility] Comment on above: Performed By: #### L IPDR, HFP, CHM7 #### [facility] (DEFAULT) [address] [place] [address] ALP [Catalytic activity/Vol] 107 U/L Normal 32-126 [facility] Comment on above: Performed By: #### L IPDR, HFP, CHM7 #### [facility] (DEFAULT) [address] [place] [address]408 ALT [Catalytic activity/Vol] 8 U/L Low 9-48 [facility] Comment on above: Performed By: #### L IPDR, HFP, CHM7 #### [facility] (DEFAULT) [address] [place] [address] AST [Catalytic activity/Vol] 25 U/L Normal 10-39 [facility] Comment on above: Result Comment: Spec imen slightly hemolyzed. AST results may be falsely elevated. Interpret within the clinical context. Performed By: #### L IPDR, HFP, CHM7 #### [facility] (DEFAULT) [address] [place] [address] Bilirubin [Mass/Vol] 0.6 mg/dL Normal <1.5 [facility] Comment on above: Performed By: #### L IPDR, HFP, CHM7 #### [facility] (DEFAULT) [address] [place] [address] Bilirubin.indirect [Mass/Vol] 0.1 mg/dL Normal <0.3 [facility] Comment on above: Result Comment: Spec imen hemolyzed. Direct bilirubin results may be falsely decreased. Interpret within the clinical context. Performed By: #### L IPDR, HFP, CHM7 #### [facility] (DEFAULT) [address] [place] [address]98 Protein [Mass/Vol] 7.4 g/dL Normal 6.4-8.3 [facility] Comment on above: Performed By: #### L IPDR, HFP, CHM7 #### [facility] (DEFAULT) [address] [place] [address] HIGH SENSITIVITY TROPONIN I - SINGLE ORDEROrdered By: Carlos Eduardo Shelton on 11-08-2024 Interpretation and review of laboratory results Abnormal [facility] Troponin I.cardiac High sensitivity method [Mass/Vol] 146 ng/L High NINF - 34 ng/L [facility] Comment on above: Suggestive of myocar dial injury [facility] HIGH SENSITIVITY TROPONIN I - SINGLE ORDERon 11-08-2024 hs-Troponin I 146 ng/L High <34 [facility] Comment on above: Order Comment: Acute Coronary Syndrome (ACS): Initial Evaluation and Management:[email or web address] [email or web address]%[email or web address]#[email or web address] Result Comment: Sugg estive of myocardial injury Performed By: #### L IPDR, HFP, CHM7 #### [facility] (DEFAULT) [address] [place] [address] Hematocrit Auto (Bld) [Volum e fraction]Ordered By: Phillip Maldonado on 11-08-2024 Hematocrit (Bld) [Volume fraction] 47.4 % High 37-47 [facility] Hemoglobin measurementOrdere d By: Phillip Maldonado on 11-08-2024 Hemoglobin (Bld) [Mass/Vol] 15.3 g/dL High 12.0-15.0 [facility] Immature granulocytes/100 WB C Auto (Bld)Ordered By: Phillip Maldonado on 11-08-2024 Immature granulocytes/100 WBC (Bld) 0.300 % 0.0-0.9 [facility] Comment on above: IG% - Immature Granu locytes (promyelocytes, myelocytes and metamyelocytes) > 1% indicates that a LEFT SHIFT is Present. International normalized rat io (INR) calculationOrdered By: Phillip Maldonado on 11-08-2024 INR Coag (Bld) [Relative time] 1.5 {INR} [facility] L499.0042on 11-08-2024 Trop T High Sen Normal <=14 [facility] Comment on above: Result Comment: Canc elled via OM: Order cancelled - Patient discharged Performed By: #### L 499.0042 ####[facility] [address] [place], [address] L499.0043on 11-08-2024 Trop T High Sen Normal <=14 [facility] Comment on above: Result Comment: Canc elled via OM: Order cancelled - Patient discharged Performed By: #### L 499.0043 ####[facility] [address] [place], [address] L501.4021on 11-08-2024 Trop T High Sen 20 ng/L High <=14 [facility] Comment on above: Performed By: #### L 501.4021, L100.0100, L500.2500, L300.4310, L300.3900 ####[facility] [address] [place], [address] LAVENDER TOP TUBEOrdered By: Madelyn Lacey on 11-08-2024 [facility] LIPID PANEL WITH REFLEX TO Kennedy RANDHAWAon 11-08-2024 Calculated LDL Cholesterol 81 mg/dL Normal 0-99 [facility] Comment on above: Result Comment: [<10 0 mg/dL: Optimal] [100-129 mg/dL: Near Optimal] [130-159 mg/dL: Borderline High] [160-189 mg/dL: High] [>189 mg/dL: Very High] Performed By: #### L IPDR, HFP, CHM7 #### [facility] (DEFAULT) [address] [place] [address] Cholesterol [Mass/Vol] 151 mg/dL Normal <200 [facility] Comment on above: Result Comment: [<20 0 mg/dL: Desirable] [200-239 mg/dL: Borderline High] [>239 mg/dL: High] Performed By: #### L IPDR, HFP, CHM7 #### [facility] (DEFAULT) [address] [place] [address]336 Cholesterol in HDL [Mass/Vol] 59 mg/dL Normal >=40 [facility] Comment on above: Result Comment: [<40 mg/dL: Low (High Risk)] [>59 mg/dL: High (Low Risk)] Performed By: #### L IPDR, HFP, CHM7 #### [facility] (DEFAULT) [address] [place] [address]207 Non HDL Cholesterol 92 mg/dL Normal <130 [facility] Comment on above: Performed By: #### L IPDR, HFP, CHM7 #### [facility] (DEFAULT) [address] [place] [address] 42085 Total Cholesterol/HDL Ratio 2.6 Normal <4.5 [facility] Comment on above: Performed By: #### L IPDR, HFP, CHM7 #### [facility] (DEFAULT) [address] [place] [address]13 Triglyceride [Mass/Vol] 55 mg/dL Normal <150 [facility] Comment on above: Result Comment: [<15 0 mg/dL: Desirable] [150-199 mg/dL: Borderline] [200-499 mg/dL: High] [>500 mg/dL: Very High] Performed By: #### L IPDR, HFP, CHM7 #### [facility] (DEFAULT) [address] [place] [address] LT BLUE TOP TUBEOrdered By: Denise Mittal on 11-08-2024 [facility] Lymphocytes Auto (Unsp spec) [#/Vol]Ordered By: Phillip Maldonado on 11-08-2024 Lymphocytes (Bld) [#/Vol] 1.91 10*3/uL 0.83-4.51 [facility] Lymphocytes/100 WBC Auto (Un sp spec)Ordered By: Phillip Maldonado on 11-08-2024 Lymphocytes/100 WBC (Bld) 21.1 % 19-41 [facility] MCV (mean corpuscular volume ) determinationOrdered By: Phillip Maldonado on 11-08-2024 MCV (RBC) [Entitic vol] 88.6 fL 81-99 [facility] Mean corpuscular hemoglobin (MCH) determinationOrdered By: Phillip Maldonado on 11-08-2024 MCH (RBC) [Entitic mass] 28.6 pg 27.0-32.0 [facility] Mean corpuscular hemoglobin concentration (MCHC) determinationOrdered By: Phillip Maldonado on 11-08-2024 MCHC (RBC) [Mass/Vol] 32.3 g/dL 32-36 [facility] Mean platelet volume determi nationOrdered By: Phillip Maldonado on 11-08-2024 Platelet mean volume (Bld) [Entitic vol] 10.0 fL 6.2-12.0 [facility] Monocyte percentageOrdered B y: Phillip Maldonado on 11-08-2024 Monocytes/100 WBC (Bld) 8.2 % 0-10 [facility] Neutrophil percentageOrdered By: Phillip Maldonado on 11-08-2024 Neutrophils/100 WBC (Bld) 67.9 % 47-70 [facility] No Panel Informationon 11-08 [facility] Nucleated red blood cell per centageOrdered By: Phillip Maldonado on 11-08-2024 Nucleated RBC/100 WBC (Bld) [Ratio] 0 % 0-5 [facility] PTINR-STROKEon 11-08-2024 INR Coag (Bld) [Relative time] 1.5 {INR} High 0.9 - 1.1 [facility] Interpretation and review of laboratory results Abnormal [facility] PT Coag (PPP) [Time] 18 s High [facility] INR Coag (PPP) [Relative time] 1.5 {INR} High 0.9-1.1 [facility] Comment on above: Performed By: #### L IPDR, HFP, CHM7 #### [facility] (DEFAULT) [address] [place] [address] PT Coag (PPP) [Time] 18.0 s High 11.9-14.2 [facility] Comment on above: Performed By: #### L IPDR, HFP, CHM7 #### [facility] (DEFAULT) [address] [place] [address] 18048 PTTon 11-08-2024 aPTT Coag (PPP) [Time] 37.4 s High [facility] Interpretation and review of laboratory results Abnormal [facility] aPTT Coag (Bld) [Time] 37.4 s High 24.0-34.3 [facility] Comment on above: Performed By: #### L IPDR, HFP, CHM7 #### [facility] (DEFAULT) [address] [place] [address] 48799 Partial Thromboplast Timeon 11-08-2024 aPTT Coag (Bld) [Time] 34.5 s Normal 24.1-36.2 [facility] Comment on above: Performed By: #### L 501.4021, L100.0100, L500.2500, L300.4310, L300.3900 ####[facility] [address] [place], [place], [id number] Platelet countOrdered By: Robby segura Erica on 11-08-2024 Platelets (Bld) [#/Vol] 194 10*3/uL 150-450 [facility] Potassium (Unsp spec) [Mass/ Vol]Ordered By: Phillip Maldonado on 11-08-2024 Potassium [Moles/Vol] 4.2 mmol/L 3.3-5.1 [facility] Potassium measurement (mass/ volume)Ordered By: Phillip Maldonado on 11-08-2024 Potassium (Unsp spec) [Mass/Vol] 4.2 mmol/L 3.3-5.1 [facility] Prothrombin Time w/INRon INR Coag (PPP) [Relative time] 1.5 {INR} Normal [facility] Comment on above: Performed By: #### L 501.4021, L100.0100, L500.2500, L300.4310, L300.3900 ####[facility] [address] [place], [place], [id number] PT Coag (PPP) [Time] 18.4 s High 11.7-14.9 [facility] Comment on above: Performed By: #### L 501.4021, L100.0100, L500.2500, L300.4310, L300.3900 ####[facility] [address] [place], [address] Prothrombin timeOrdered By: Phillip Maldonado on 11-08-2024 PT Coag (PPP) [Time] 18.4 s High 11.7-14.9 [facility] RBC Auto (Bld) [#/Vol]Ordere d By: Phillip Maldonado on 11-08-2024 RBC (Bld) [#/Vol] 5.35 10*6/uL 4.2-5.4 [facility] STROKE Brain/Head without Co nton 11-08-2024 STROKE Brain/Head without Cont Normal [facility] STROKE CTA Head AND Neck W/C onon 11-08-2024 STROKE CTA Head AND Neck W/Con Normal [facility] Serum creatinine measurement (mass/volume)Ordered By: Phillip Maldonado on 11-08-2024 Creatinine [Mass/Vol] 0.82 mg/dL 0.70-1.20 [facility] Serum glucose measurement (m ass/volume)Ordered By: Phillip Maldonado on 11-08-2024 Glucose [Mass/Vol] 129 mg/dL High 70-99 [facility] Serum or plasma calcium bessie urement (mass/volume)Ordered By: Phillip Maldonado on 11-08-2024 Calcium [Mass/Vol] 9.3 mg/dL 7.6-11.0 [facility] Serum or plasma urea nitroge n measurement (mass/volume)Ordered By: Phillip Maldonado on 11-08-2024 Urea nitrogen [Mass/Vol] 13 mg/dL 4-19 [facility] Sodium levelOrdered By: Tawanda Maldonado on 11-08-2024 Sodium [Moles/Vol] 139 mmol/L 133-145 [facility] Troponin T.cardiac High sens itivity method [Mass/Vol]Ordered By: Phillip Maldonado on 11-08-2024 Troponin T High Sensitivity 20 ng/L High <14 [facility] Troponin T.cardiac [Mass/vol ume] in Serum or Plasma by High sensitivity methodOrdered By: Phillip Maldonado on 11-08-2024 Troponin T.cardiac High sensitivity method [Mass/Vol] 20 ng/L High <14 [facility] URINALYSIS REFLEX TO CULTURE PERFORMABLEon 11-08-2024 Appearance (U) Clear Clear [facility] Bacteria LM Ql (Urine sed) TRACE Abnormal ABSENT [facility] Color (U) Yellow Yellow [facility] Epithelial cells.squamous LM Ql (Urine sed) 0-2/hpf 0-2/hpf, 3-5/hpf = 1+ [facility] Glucose Test strip (U) [Mass/Vol] >=1000 mg/dL Abnormal Negative [facility] Interpretation and review of laboratory results Abnormal [facility] Ketones (U) [Mass/Vol] Negative Negative [facility] Leukocyte esterase Test strip Ql (U) Negative Negative [facility] Nitrite Ql (U) Negative [facility] pH (U) 5.5 [pH] 5.0 - 7.0 [facility] Protein (U) [Mass/Vol] Negative Negative [facility] RBC (U) [#/Vol] [facility] LM.HPF (Urine sed) [#/Area] 0-2 [facility] Specific gravity (U) [Rel density] High 1.001 - 1.035 [facility] Urobilinogen (U) [Mass/Vol] 1.0 E.U./dL 0.2 E.U/dL, 1.0 E.U/dL U [facility] WBC LM.HPF (Urine sed) [#/Area] 0 - 5 U [facility] Appearance (U) Clear Normal Clear [facility] Comment on above: Order Comment: For i ndwelling catheters, specimen collection is acceptable on catheter day 1 and 2 only. ? Performed By: #### U [id number] #### [facility] (DEFAULT) [address] [place] [address] Bacteria TRACE Abnormal ABSENT [facility] Comment on above: Order Comment: For i ndwelling catheters, specimen collection is acceptable on catheter day 1 and 2 only. ? Performed By: #### U [id number] #### [facility] (DEFAULT) [address] [place] [address] Blood Urine Negative Normal Negative [facility] Comment on above: Order Comment: For i ndwelling catheters, specimen collection is acceptable on catheter day 1 and 2 only. ? Performed By: #### U [id number] #### [facility] (DEFAULT) [address] [place] [address] Color (U) Yellow Normal Yellow [facility] Comment on above: Order Comment: For i ndwelling catheters, specimen collection is acceptable on catheter day 1 and 2 only. ? Performed By: #### U [id number] #### [facility] (DEFAULT) [address] [place] [address] Glucose Ql (U) >=1000 mg/dL Abnormal Negative [facility] Comment on above: Order Comment: For i ndwelling catheters, specimen collection is acceptable on catheter day 1 and 2 only. ? Performed By: #### U [id number] #### [facility] (DEFAULT) [address] [place] [address] Ketones Ql (U) Negative Normal Negative [facility] Comment on above: Order Comment: For i ndwelling catheters, specimen collection is acceptable on catheter day 1 and 2 only. ? Performed By: #### U [id number] #### [facility] (DEFAULT) [address] [place] [address] Leukocyte esterase Test strip Ql (U) Negative Normal Negative [facility] Comment on above: Order Comment: For i ndwelling catheters, specimen collection is acceptable on catheter day 1 and 2 only. ? Performed By: #### U [id number] #### [facility] (DEFAULT) [address] [place] [address] Nitrites Urine Negative Normal Negative [facility] Comment on above: Order Comment: For i ndwelling catheters, specimen collection is acceptable on catheter day 1 and 2 only. ? Performed By: #### U [id number] #### [facility] (DEFAULT) [address] [place] [address] pH (U) 5.5 [pH] Normal 5.0-7.0 [facility] Comment on above: Order Comment: For i ndwelling catheters, specimen collection is acceptable on catheter day 1 and 2 only. ? Performed By: #### U [id number] #### [facility] (DEFAULT) [address] [place] [address] Protein Urine Negative Normal Negative [facility] Comment on above: Order Comment: For i ndwelling catheters, specimen collection is acceptable on catheter day 1 and 2 only. ? Performed By: #### U [id number] #### [facility] (DEFAULT) [address] [place] [address] RBC Urine 0-2 Normal 0-2 [facility] Comment on above: Order Comment: For i ndwelling catheters, specimen collection is acceptable on catheter day 1 and 2 only. ? Performed By: #### U [id number] #### [facility] (DEFAULT) [address] [address] Specific [place] Urine > High 1.001 -1.03 5 [facility] Comment on above: Order Comment: For i ndwelling catheters, specimen collection is acceptable on catheter day 1 and 2 only. ? Performed By: #### U [id number] #### U [facility] (DEFAULT) [address] [address] Squamous/Epithelial Cells, Urine 0-2/hpf Normal 0-2/hpf, 3-5/hpf = 1+ [facility] Comment on above: Order Comment: For i ndwelling catheters, specimen collection is acceptable on catheter day 1 and 2 only. ? Performed By: #### U [id number] #### [facility] (DEFAULT) [address] [address] Urobilinogen Urine 1.0 E.U./dL Normal 0.2 E.U/dL, 1.0 E.U/dL [facility] Comment on above: Order Comment: For i ndwelling catheters, specimen collection is acceptable on catheter day 1 and 2 only. ? Performed By: #### U [id number] #### [facility] (DEFAULT) [address] [address] WBC Urine 0 - 5 Normal 0 - 5 [facility] Comment on above: Order Comment: For i ndwelling catheters, specimen collection is acceptable on catheter day 1 and 2 only. ? Performed By: #### U [id number] #### [facility] (DEFAULT) [address] [address] URINE DRUG SCREEN 11-08 Amphetamine+Methamphetam ine Screen (U) [Mass/Vol] Not detected Cutoff: 500 ng/mL [facility] Barbiturates Ql (U) Not detected Cutoff: 200 ng/mL [facility] Benzodiazepines Ql (U) Not detected Cutof f: 200 ng/mL [facility] Buprenorphine Ql (U) Not detected Cutoff: 5 ng/mL [facility] Cannabinoids Screen Ql (U) Not detected Cutoff: 50 ng/mL [facility] Cocaine Ql (U) Not detected Cutoff: 150 ng/mL [facility] fentaNYL Ql (U) Not detected Cutoff: 1 ng/mL [facility] Interpretation and review of laboratory results Normal [facility] Methadone Ql (U) Not detected Cutoff: 300 ng/mL [facility] Opiates Ql (U) Not detected Cutoff: 300 ng/mL [facility] oxyCODONE Ql (U) Not detected Cutoff: 100 ng/mL [facility] For medical purposes only. Positive results are unconfirmed unless otherwise noted. [facility] Amphetamine/Methamphetam ine Not detected Normal Cutoff: 500 ng/mL [facility] Comment on above: Order Comment: For m edical purposes only. Positive results are unconfirmed unless otherwise noted. Performed By: #### L IPDR, HFP, CHM7 #### [facility] (DEFAULT) [address] [address] Barbiturates Not detected Normal Cutoff: 200 ng/mL [facility] Comment on above: Order Comment: For edical purposes only. Positive results are unconfirmed unless otherwise noted. Performed By: #### L IPDR, HFP, CHM7 #### [facility] (DEFAULT) [address] [address] Benzodiazepines Not detected Normal Cutoff: 200 ng/mL [facility] Comment on above: Order Comment: For m edical purposes only. Positive results are unconfirmed unless otherwise noted. Performed By: #### L IPDR, HFP, CHM7 #### [facility] (DEFAULT) [address] [address] Buprenorphine Not detected Normal Cutoff: 5 ng/mL [facility] Comment on above: Order Comment: For m edical purposes only. Positive results are unconfirmed unless otherwise noted. Performed By: #### L IPDR, HFP, CHM7 #### [facility] (DEFAULT) [address] [address] Cannabinoids Screen Ql (U) Not detected Normal Cutoff: 50 ng/mL [facility] Comment on above: Order Comment: For m edical purposes only. Positive results are unconfirmed unless otherwise noted. Performed By: #### L IPDR, HFP, CHM7 #### [facility] (DEFAULT) [address] [address] Cocaine Not detected Normal Cutoff: 150 ng/mL [facility] Comment on above: Order Comment: For m edical purposes only. Positive results are unconfirmed unless otherwise noted. Performed By: #### L IPDR, HFP, CHM7 #### [facility] (DEFAULT) [address] [address] Fentanyl Not detected Normal Cutoff: 1 ng/mL [facility] Comment on above: Order Comment: For m edical purposes only. Positive results are unconfirmed unless otherwise noted. Performed By: #### L IPDR, HFP, CHM7 #### [facility] (DEFAULT) [address] [address] Methadone Not detected Normal Cutoff: 300 ng/mL [facility] Comment on above: Order Comment: For edical purposes only. Positive results are unconfirmed unless otherwise noted. Performed By: #### L IPDR, HFP, CHM7 #### [facility] (DEFAULT) [address] [address] Opiates Not detected Normal Cutoff: 300 ng/mL [facility] Comment on above: Order Comment: For edical purposes only. Positive results are unconfirmed unless otherwise noted. Performed By: #### L IPDR, HFP, CHM7 #### [facility] (DEFAULT) [address] [address] Oxycodone Not detected Normal Cutoff: 100 ng/mL [facility] Comment on above: Order Comment: For m edical purposes only. Positive results are unconfirmed unless otherwise noted. Performed By: #### L IPDR, HFP, CHM7 #### [facility] ([facility]) [address] [place] [address] White blood cell (WBC) count Ordered By: Phillip Maldonado on 11-08-2024 WBC (Bld) [#/Vol] 9.1 10*3/uL 4.4-11.0 [facility] aPTT Coag (PPP) [Time]Ordere d By: Phillip Maldonado on 11-08-2024 aPTT Coag (Bld) [Time] 34.5 s 24.1-36.2 [facility] Plastic Surgery Visit Report on 09-30-2024 Plastic Surgery Visit Report Normal [facility] SCRN MAMM (CAD)W/STEPHANIE BILATo n 09-22-2024 SCRN MAMM (CAD)W/[facility] BILAT Normal [facility] [employer] normalized rat io (INR) calculationOrdered By: Alejandro Rosales on 09-21-2024 INR Coag (Bld) [Relative time] 2.7 {INR} [facility] Plastic Surgery Visit Report on 09-21-2024 Plastic Surgery Visit Report Normal [facility] Prothrombin Time w/INRon INR Coag (PPP) [Relative time] 2.7 {INR} Normal [facility] Comment on above: Order Comment: Inter face Comments:Standing Order once per month and PRN for out of rangefollow upOrder Date: 09/21/24Order Info: [id number] - PTComments: Standing Order once per month and PRN for out of range follow up Performed By: #### L 300.3900 ####[facility] [address] [place], [address] PT Coag (PPP) [Time] 29.2 s High 11.7-14.9 [facility] Comment on above: Order Comment: Inter face Comments:Standing Order once per month and PRN for out of rangefollow upOrder Date: 09/21/24Order Info: 6301-6 - PTComments: Standing Order once per month and PRN for out of range follow up Performed By: #### L 300.3900 ####[facility] [address] [place], [place], [address] Prothrombin timeOrdered By: Alejandro Rosales on 09-21-2024 PT Coag (PPP) [Time] 29.2 s High 11.7-14.9 [facility] [employer] normalized rat io (INR) calculationOrdered By: Alejandro Rosales on 09-17-2024 INR Coag (Bld) [Relative time] 1.8 {INR} [facility] Prothrombin Time w/INRon INR Coag (PPP) [Relative time] 1.8 {INR} Normal [facility] Comment on above: Order Comment: Order Date: 09/17/24Order Info: 6301-6 - PT Performed By: #### L [id number] ####[facility] [address] [place], [place], [address] PT Coag (PPP) [Time] 21.7 s High 11.7-14.9 [facility] Comment on above: Order Comment: Order Date: 09/17/24Order Info: 6301-6 - PT Performed By: #### L 300.3903 ####[facility] [address] [place], [address] Prothrombin timeOrdered By: Alejandro Rosales on 09-17-2024 PT Coag (PPP) [Time] 21.7 s High 11.7-14.9 [facility] ANTINUCLEAR ANTIBODIES DIREC Ton 09-15-2024 CHAU,DIRECT Negative Normal Negative [facility] Comment on above: Order Comment: Order Date: 09/14/24Order Info: [id number] - CHAU Result Comment: Perf ormed at: - [facility] [id number] Director: Taiwo Quintero PhD, Phone: [phone] Performed By: #### L 3100.8751, M5352.9142, C945.8949 ####[facility] [address] [place], [address] Protein Electroph, Son 09-15 Albumin [Mass/Vol] 3.1 g/dL Normal 2.9-4.4 [facility] Comment on above: Order Comment: Order Date: 09/14/24Order Info: 0060-1 - PROEL Performed By: #### L 3100.3450, L3100.5475, L505.7010 ####[facility] [address] [place], [address] Albumin/Globulin [Mass ratio] 0.8 {ratio} Normal 0.7-1.7 [facility] Comment on above: Order Comment: Order Date: 09/14/24Order Info: 0060-1 - PROEL Performed By: #### L 3100.3450, L3100.5475, L505.7010 ####[facility] [address] [place], [address] ALPHA-1 GLOBUL 0.3 g/dL Normal 0.0-0.4 [facility] Comment on above: Order Comment: Order Date: 09/14/24Order Info: 0060-1 - PROEL Performed By: #### L 3100.3450, L3100.5475, L505.7010 ####[facility] [address] [place], [address] ALPHA-2 GLOBUL 0.8 g/dL Normal 0.4-1.0 [facility] Comment on above: Order Comment: Order Date: 09/14/24Order Info: 0060-1 - PROEL Performed By: #### L 3100.3450, L3100.5475, L505.7010 ####[facility] [address] [place], [address] BETA GLOBULIN 1.2 g/dL Normal 0.7-1.3 [facility] Comment on above: Order Comment: Order Date: 09/14/24Order Info: 0060-1 - PROEL Performed By: #### L 3100.3450, L3100.5475, L505.7010 ####[facility] [address] [place], [address] GAMMA GLOBULIN 1.4 g/dL Normal 0.4-1.8 [facility] Comment on above: Order Comment: Order Date: 09/14/24Order Info: 0060-1 - PROEL Performed By: #### L 3100.3450, L3100.5475, L505.7010 ####[facility] [address] [place], [address] Globulin (S) [Mass/Vol] 3.7 g/dL Normal 2.2-3.9 [facility] Comment on above: Order Comment: Order Date: 09/14/24Order Info: 0060-1 - PROEL Performed By: #### L 3100.3450, L3100.5475, L505.7010 ####[facility] [address] [place], [address] INTERPRETATION Comment Normal . [facility] Comment on above: Order Comment: Order Date: 09/14/24Order Info: 0060-1 - PROEL Result Comment: Prot ein electrophoresis scan will follow via computer,mail, or statistical financial analyst delivery. Performed By: #### L 3100.3450, L3100.5475, L505.7010 ####[facility] [address] [place], [address] M-SPIKE Not Observed Normal Not Observed [facility] Comment on above: Order Comment: Order Date: 09/14/24Order Info: 0060-1 - PROEL Performed By: #### L 3100.3450, L3100.5475, L505.7010 ####[facility] [address] [place], [address] NOTE: Comment Normal . [facility] Comment on above: Order Comment: Order Date: 09/14/24Order Info: 0060-1 - PROEL Result Comment: The SPE pattern appears unremarkable. Evidence ofmonoclonal protein is not apparent.Performed at: [employer] [address] [place], [place] [id number] Director: Taiwo Quintero PhD, Phone: [phone] Performed By: #### L 3770.9110, L3262.8573, C765.2965 ####[facility] [address] [place], [address] Protein [Mass/Vol] 6.8 g/dL Normal 6.0-8.5 [facility] Comment on above: Order Comment: Order Date: 09/14/24Order Info: 0060-1 - PROEL Performed By: #### L [id number], Z4946.7116, U445.0762 ####[facility] [address] [place], [place], [address] CHAU serumOrdered By: Alejandro varela on 09-14-2024 Anti-Nuclear Antibody Screen Negative Negative [facility] Comment on above: Performed at: [employer] [address] [id number] Director: Taiwo Quintero PhD, Phone: [phone] Absolute lymphocyte countOrd ered By: Alejandro Rosales on 09-14-2024 Lymphocytes Auto (Unsp spec) [#/Vol] 1.72 10*3/uL 0.83-4.51 [facility] Absolute neutrophil countOrd ered By: Alejandro Rosales on 09-14-2024 Neutrophils (Bld) [#/Vol] 5.2 10*3/uL 2.0-7.7 [facility] Addendum DocumentOrdered By: Alejandro Rosales on 09-14-2024 Protein Electrophoresis Note Comment . [facility] Comment on above: The SPE pattern appe ars unremarkable. Evidence ofmonoclonal protein is not apparent.Performed at: [employer] [address] [id number] Director: Taiwo Quintero PhD, Phone: [phone] Albumin Elph [Mass/Vol]Order ed By: Alejandro Rosales on 09-14-2024 Albumin [Mass/Vol] 3.1 g/dL 2.9-4.4 [facility] Albumin to globulin ratioOrd ered By: Alejandro Rosales on 09-14-2024 Albumin/Globulin [Mass ratio] 0.7 {ratio} Low 0.9-2.4 [facility] Albumin/Globulin Elph [Mass ratio]Ordered By: Alejandro Rosales on 09-14-2024 Albumin/Globulin (PEP) 0.8 0.7-1.7 [facility] Snmpj-4-wshwwwpq measurement by protein electrophoresisOrdered By: Alejandro Rosales on 09-14-2024 Mazfe-3-Klidqmsvk 0.3 g/dL 0.0-0.4 [facility] Jgvev-4-flskqsvm measurement by protein electrophoresisOrdered By: Alejandro Rosales on 09-14-2024 Oxwof-8-Kggrionfc 0.8 g/dL 0.4-1.0 [facility] Automated lymphocyte count a s percentage of total leukocytesOrdered By: Alejandro Rosales on 09-14-2024 Lymphocytes/100 WBC Auto (Unsp spec) 22.3 % 19-41 [facility] Basophil percentageOrdered B y: Alejandro Rosales on 09-14-2024 Basophils/100 WBC (Bld) 0.5 % 0-1 [facility] Beta globulin Elph [Mass/Vol ]Ordered By: Alejandro Rosales on 09-14-2024 Beta Globulins 1.2 g/dL 0.7-1.3 [facility] Bilirubin, totalOrdered By: Alejandro Rosales on 09-14-2024 Bilirubin [Mass/Vol] 0.80 mg/dL 0.20-1.00 [facility] Comment on above: For patients on eltr ombopag therapy, use of [employer] [place] TBIL is not recommended. Blood urea nitrogen (BUN)/cr eatinine ratioOrdered By: Alejandro Rosales on 09-14-2024 Urea nitrogen/Creatinine [Mass ratio] 11.3 mg/mg 10-20 [facility] C-reactive protein measureme nt by high sensitivity methodOrdered By: Alejandro Rosales on 09-14-2024 C-Reactive Protein Extended Range 30.60 mg/L High 0.0-3.0 [facility] Comment on above: C-Reactive Protein ( CRP) provides useful information for thediagnosis, therapy and monitoring of inflammatory processesand associated diseases. For the evaluation of Relative Riskfor Cardiovascular Disease, a High Sensitivity CRP (HSCRP)should be ordered. C-reactive protein measurement by high sensitivity method 30.60 mg/L High 0.0-3.0 [facility] Comment on above: C-Reactive Protein ( CRP) provides useful information for thediagnosis, therapy and monitoring of inflammatory processesand associated diseases. For the evaluation of Relative Riskfor Cardiovascular Disease, a High Sensitivity CRP (HSCRP)should be ordered. CBC W/Diff, Automatedon 09-04 Absolute Lymph 1.72 X10 3/uL Normal 0.83-4.51 [facility] Comment on above: Order Comment: Order Date: 09/14/24Order Info: [id number] - CBCDOrder Info: [id number] - SED Performed By: #### L 100.0100, L501.1400, L500.4050, L501.6710, L101.9900 ####[facility] [address] [place], [address] Absolute Neut 5.2 X10 3/uL Normal 2.0-7.7 [facility] Comment on above: Order Comment: Order Date: 09/14/24Order Info: [id number] - CBCDOrder Info: [id number] - SED Performed By: #### L 100.0100, L501.1400, L500.4050, L501.6710, L101.9900 ####[facility] [address] [place], [address] Basophils/100 WBC (Bld) 0.5 % Normal 0-1 [facility] Comment on above: Order Comment: Order Date: 09/14/24Order Info: [id number] - CBCDOrder Info: [id number] - SED Performed By: #### L 100.0100, L501.1400, L500.4050, L501.6710, L101.9900 ####[facility] [address] [place], [address] Eosinophils/100 WBC (Bld) 1.3 % Normal 0-5 [facility] Comment on above: Order Comment: Order Date: 09/14/24Order Info: [id number] - CBCDOrder Info: [id number] - SED Performed By: #### L 100.0100, L501.1400, L500.4050, L501.6710, L101.9900 ####[facility] [address] [place], [address] Erythrocyte distribution width (RBC) [Ratio] 15.0 % High 11.6-14.6 [facility] Comment on above: Order Comment: Order Date: 09/14/24Order Info: [id number] - CBCDOrder Info: [id number] - SED Performed By: #### L 100.0100, L501.1400, L500.4050, L501.6710, L101.9900 ####[facility] [address] [place], [address] Hematocrit (Bld) [Volume fraction] 46.8 % Normal 37-47 [facility] Comment on above: Order Comment: Order Date: 09/14/24Order Info: [id number] - CBCDOrder Info: [id number] - SED Performed By: #### L 100.0100, L501.1400, L500.4050, L501.6710, L101.9900 ####[facility] [address] [place], [address] Hemoglobin (Bld) [Mass/Vol] 15.1 g/dL High 12.0-15.0 [facility] Comment on above: Order Comment: Order Date: 09/14/24Order Info: [id number] - CBCDOrder Info: [id number] - SED Performed By: #### L 100.0100, L501.1400, L500.4050, L501.6710, L101.9900 ####[facility] [address] [place], [address] IG% 0.300 Normal 0.0-0.9 [facility] Comment on above: Order Comment: Order Date: 09/14/24Order Info: [id number] - CBCDOrder Info: [id number] - SED Result Comment: IG% - Immature Granulocytes (promyelocytes, myelocytes andmetamyelocytes) > 1% indicates that a LEFT SHIFT is Present. Performed By: #### L 100.0100, L501.1400, L500.4050, L501.6710, L101.9900 ####[facility] [address] [place], [address] Lymphocytes/100 WBC (Bld) 22.3 % Normal 19-41 [facility] Comment on above: Order Comment: Order Date: 09/14/24Order Info: [id number] - CBCDOrder Info: [id number] - SED Performed By: #### L 100.0100, L501.1400, L500.4050, L501.6710, L101.9900 ####[facility] [address] [place], [address] MCH (RBC) [Entitic mass] 28.0 pg Normal 27.0-32.0 [facility] Comment on above: Order Comment: Order Date: 09/14/24Order Info: [id number] - CBCDOrder Info: [id number] - SED Performed By: #### L 100.0100, L501.1400, L500.4050, L501.6710, L101.9900 ####[facility] [address] [place], [address] MCHC (RBC) [Mass/Vol] 32.3 g/dL Normal 32-36 [facility] Comment on above: Order Comment: Order Date: 09/14/24Order Info: [id number] - CBCDOrder Info: [id number] - SED Performed By: #### L 100.0100, L501.1400, L500.4050, L501.6710, L101.9900 ####[facility] [address] [place], [address] MCV (RBC) [Entitic vol] 86.7 fL Normal 81-99 [facility] Comment on above: Order Comment: Order Date: 09/14/24Order Info: [id number]- - CBCDOrder Info: [id number] - SED Performed By: #### L 100.0100, L501.1400, L500.4050, L501.6710, L101.9900 ####[facility] [address] [place], [address] Monocytes/100 WBC (Bld) 8.2 % Normal 0-10 [facility] Comment on above: Order Comment: Order Date: 09/14/24Order Info: [id number]- - CBCDOrder Info: [id number] - SED Performed By: #### L 100.0100, L501.1400, L500.4050, L501.6710, L101.9900 ####[facility] [address] [place], [address] Neutrophils/100 WBC (Bld) 67.4 % Normal 47-70 [facility] Comment on above: Order Comment: Order Date: 09/14/24Order Info: [id number]- - CBCDOrder Info: [id number] - SED Performed By: #### L 100.0100, L501.1400, L500.4050, L501.6710, L101.9900 ####[facility] [address] [place], [address] Nucleated RBC (Bld) [#/Vol] 0 10*3/uL Normal 0-5 [facility] Comment on above: Order Comment: Order Date: 09/14/24Order Info: [id number] - CBCDOrder Info: [id number] - SED Performed By: #### L 100.0100, L501.1400, L500.4050, L501.6710, L101.9900 ####[facility] [address] [place], [address] Platelet mean volume (Bld) [Entitic vol] 10.5 fL Normal 6.2-12.0 [facility] Comment on above: Order Comment: Order Date: 09/14/24Order Info: [id number]- - CBCDOrder Info: [id number] - SED Performed By: #### L 100.0100, L501.1400, L500.4050, L501.6710, L101.9900 ####[facility] [address] [place], [address] Platelets (Bld) [#/Vol] 201 10*3/uL Normal 150-450 [facility] Comment on above: Order Comment: Order Date: 09/14/24Order Info: [id number]- - CBCDOrder Info: [id number] - SED Performed By: #### L 100.0100, L501.1400, L500.4050, L501.6710, L101.9900 ####[facility] [address] [place], [address] RBC (Bld) [#/Vol] 5.40 10*6/uL Normal 4.2-5.4 [facility] Comment on above: Order Comment: Order Date: 09/14/24Order Info: [id number] - CBCDOrder Info: [id number] - SED Performed By: #### L 100.0100, L501.1400, L500.4050, L501.6710, L101.9900 ####[facility] [address] [place], [address] RDW SD 47.6 fl High 35.1-43.9 [facility] Comment on above: Order Comment: Order Date: 09/14/24Order Info: [id number]- - CBCDOrder Info: [id number] - SED Performed By: #### L 100.0100, L501.1400, L500.4050, L501.6710, L101.9900 ####[facility] [address] [place], [address] WBC (Bld) [#/Vol] 7.7 10*3/uL Normal 4.4-11.0 [facility] Comment on above: Order Comment: Order Date: 09/14/24Order Info: [id number] - CBCDOrder Info: [id number] - SED Performed By: #### L 100.0100, L501.1400, L500.4050, L501.6710, L101.9900 ####[facility] [address] [place], [address] CRPon 09-14-2024 C-REACTIVE PROT 30.60 mg/L High 0.0-3.0 [facility] Comment on above: Order Comment: Order Date: 09/14/24Order Info: [id number] - CMPOrder Info: [id number]- - URICOrder Info: [id number] - CRPOrder Info: [id number] - RA Result Comment: C-Re active Protein (CRP) provides useful information for thediagnosis, therapy and monitoring of inflammatory processesand associated diseases. For the evaluation of Relative Riskfor Cardiovascular Disease, a High Sensitivity CRP (HSCRP)should be ordered. Performed By: #### L 100.0100, L501.1400, L500.4050, L501.6710, L101.9900 ####[facility] [address] [place], [address] Carbon dioxide measurementOr dered By: Alejandro Rosales on 09-14-2024 CO2 [Moles/Vol] 27.0 mmol/L 21.0-32.0 [facility] Chloride measurementOrdered By: Alejandro Rosales on 09-14-2024 Chloride [Moles/Vol] 105 mmol/L 98-107 [facility] Comprehensive Metabolic Prof ilon 09-14-2024 Albumin [Mass/Vol] 3.2 g/dL Normal 3.2-5.0 [facility] Comment on above: Order Comment: Order Date: 09/14/24Order Info: [id number] - CMPOrder Info: [id number] - URICOrder Info: [id number] - CRPOrder Info: [id number] - RA Performed By: #### L 100.0100, L501.1400, L500.4050, L501.6710, L101.9900 ####[facility] [address] [place], [address] Albumin/Globulin [Mass ratio] 0.7 {ratio} Low 0.9-2.4 [facility] Comment on above: Order Comment: Order Date: 09/14/24Order Info: [id number] - CMPOrder Info: [id number] - URICOrder Info: [id number] - CRPOrder Info: [id number] - RA Performed By: #### L 100.0100, L501.1400, L500.4050, L501.6710, L101.9900 ####[facility] [address] [place], [address] ALK P 104 U/L Normal 45-117 [facility] Comment on above: Order Comment: Order Date: 09/14/24Order Info: 86-1 - CMPOrder Info: 4-1 - URICOrder Info: [id number] - CRPOrder Info: [id number] - RA Performed By: #### L 100.0100, L501.1400, L500.4050, L501.6710, L101.9900 ####[facility] [address] [place], [address] ALT [Catalytic activity/Vol] 15 U/L Normal 13-56 [facility] Comment on above: Order Comment: Order Date: 09/14/24Order Info: [id number] - CMPOrder Info: [id number] - URICOrder Info: [id number] - CRPOrder Info: [id number] - RA Performed By: #### L 100.0100, L501.1400, L500.4050, L501.6710, L101.9900 ####[facility] [address] [place], [address] AST [Catalytic activity/Vol] 14 U/L Low 15-37 [facility] Comment on above: Order Comment: Order Date: 09/14/24Order Info: [id number] - CMPOrder Info: 4-1 - URICOrder Info: [id number] - CRPOrder Info: [id number] - RA Performed By: #### L 100.0100, L501.1400, L500.4050, L501.6710, L101.9900 ####[facility] [address] [place], [address] Bilirubin [Mass/Vol] 0.80 mg/dL Normal 0.20-1.00 [facility] Comment on above: Order Comment: Order Date: 09/14/24Order Info: [id number] - CMPOrder Info: 1 - URICOrder Info: [id number] - CRPOrder Info: [id number] - RA Result Comment: For patients on eltrombopag therapy, use of Dimension [place] TBIL is not recommended. Performed By: #### L 100.0100, L501.1400, L500.4050, L501.6710, L101.9900 ####[facility] [address] [place], [address] BUN/CRE 11.3 RATIO Normal 10-20 [facility] Comment on above: Order Comment: Order Date: 09/14/24Order Info: [id number] - CMPOrder Info: [id number] - URICOrder Info: [id number] - CRPOrder Info: [id number] - RA Performed By: #### L 100.0100, L501.1400, L500.4050, L501.6710, L101.9900 ####[facility] [address] [place], [address] CA,Total 9.3 mg/dL Normal 8.5-10.1 [facility] Comment on above: Order Comment: Order Date: 09/14/24Order Info: [id number] - CMPOrder Info: 4-1 - URICOrder Info: [id number] - CRPOrder Info: [id number] - RA Performed By: #### L 100.0100, L501.1400, L500.4050, L501.6710, L101.9900 ####[facility] [address] [place], [address] Chloride [Moles/Vol] 105 mmol/L Normal 98-107 [facility] Comment on above: Order Comment: Order Date: 09/14/24Order Info: [id number] - CMPOrder Info: [id number] - URICOrder Info: [id number] - CRPOrder Info: [id number] - RA Performed By: #### L 100.0100, L501.1400, L500.4050, L501.6710, L101.9900 ####[facility] [address] [place], [address] CO2 [Moles/Vol] 27.0 mmol/L Normal 21.0-32.0 [facility] Comment on above: Order Comment: Order Date: 09/14/24Order Info: 86-1 - CMPOrder Info: [id number] - URICOrder Info: [id number] - CRPOrder Info: [id number] - RA Performed By: #### L 100.0100, L501.1400, L500.4050, L501.6710, L101.9900 ####[facility] [address] [place], [address] Creatinine [Mass/Vol] 0.97 mg/dL Normal 0.55-1.02 [facility] Comment on above: Order Comment: Order Date: 09/14/24Order Info: [id number] - CMPOrder Info: [id number] - URICOrder Info: [id number] - CRPOrder Info: [id number] - RA Result Comment: The validity of the calculated GFR GFRAA in patients over70 years has not been determined. Clinical correlation isessential. Performed By: #### L 100.0100, L501.1400, L500.4050, L501.6710, L101.9900 ####[facility] [address] [place], [address] EST GFR - AA 72 mL/min Normal >60 [facility] Comment on above: Order Comment: Order Date: 09/14/24Order Info: 86-1 - CMPOrder Info: [id number] - URICOrder Info: [id number] - CRPOrder Info: [id number] - RA Result Comment: Afri can Iranian GFR Calc Performed By: #### L 100.0100, L501.1400, L500.4050, L501.6710, L101.9900 ####[facility] [address] [place], [address] GAP 6 Normal 5-15 [facility] Comment on above: Order Comment: Order Date: 09/14/24Order Info: 86-1 - CMPOrder Info: [id number] - URICOrder Info: [id number] - CRPOrder Info: [id number] - RA Performed By: #### L 100.0100, L501.1400, L500.4050, L501.6710, L101.9900 ####[facility] [address] [place], [address] GFR/1.73 sq M.predicted among non-blacks MDRD (S/P/Bld) [Vol rate/Area] 60 mL/min/{1.73_m2} Normal >60 [facility] Comment on above: Order Comment: Order Date: 09/14/24Order Info: [id number]- - CMPOrder Info: [id number] - URICOrder Info: [id number] - CRPOrder Info: [id number] - RA Result Comment: Non- GFR Calc Performed By: #### L 100.0100, L501.1400, L500.4050, L501.6710, L101.9900 ####[facility] [address] [place], [address] Globulin (S) [Mass/Vol] 4.4 g/dL High 2.2-4.2 [facility] Comment on above: Order Comment: Order Date: 09/14/24Order Info: 86- - CMPOrder Info: [id number] - URICOrder Info: [id number] - CRPOrder Info: [id number] - RA Performed By: #### L 100.0100, L501.1400, L500.4050, L501.6710, L101.9900 ####[facility] [address] [place], [address] Glucose [Mass/Vol] 132 mg/dL High 74-106 [facility] Comment on above: Order Comment: Order Date: 09/14/24Order Info: [id number] - CMPOrder Info: [id number] - URICOrder Info: [id number] - CRPOrder Info: [id number] - RA Result Comment: Fast ing Glucose result greater than or equal to 126 mg/dLsuggests DIABETES MELLITUS per A.D.A. criteria. Performed By: #### L 100.0100, L501.1400, L500.4050, L501.6710, L101.9900 ####[facility] [address] [place], [address] Potassium [Moles/Vol] 3.6 mmol/L Normal 3.5-5.1 [facility] Comment on above: Order Comment: Order Date: 09/14/24Order Info: [id number] - CMPOrder Info: [id number] - URICOrder Info: [id number] - CRPOrder Info: [id number] - RA Performed By: #### L 100.0100, L501.1400, L500.4050, L501.6710, L101.9900 ####[facility] [address] [place], [address] Sodium [Moles/Vol] 138 mmol/L Normal 136-145 [facility] Comment on above: Order Comment: Order Date: 09/14/24Order Info: [id number] - CMPOrder Info: [id number] - URICOrder Info: [id number] - CRPOrder Info: [id number] - RA Performed By: #### L 100.0100, L501.1400, L500.4050, L501.6710, L101.9900 ####[facility] [address] [place], [address] T PROT 7.6 g/dL Normal 6.4-8.2 [facility] Comment on above: Order Comment: Order Date: 09/14/24Order Info: [id number] - CMPOrder Info: [id number] - URICOrder Info: [id number] - CRPOrder Info: [id number] - RA Performed By: #### L 100.0100, L501.1400, L500.4050, L501.6710, L101.9900 ####[facility] [address] [place], [address] Urea nitrogen [Mass/Vol] 11 mg/dL Normal 7-18 [facility] Comment on above: Order Comment: Order Date: 09/14/24Order Info: [id number] - CMPOrder Info: [id number] - URICOrder Info: [id number] - CRPOrder Info: [id number] - RA Performed By: #### L 100.0100, L501.1400, L500.4050, L501.6710, L101.9900 ####[facility] [address] [place], [address] Creatinine, Urine (random)on 09-14-2024 UR CREAT 74.70 mg/dL Normal NO RANGE EST. [facility] Comment on above: Order Comment: Order Date: 09/14/24Order Info: [id number] - CREATUOrder Info: [id number] - ALBU Performed By: #### L 502.0500, L501.1200 ####[facility] [address] [place], [address] Eosinophil percentageOrdered By: Alejandro Rosales on 09-14-2024 Eosinophils/100 WBC (Bld) 1.3 % 0-5 [facility] Erythrocyte Sed Rateon 09-14 SED RATE 46 mm/hr High 0-30 [facility] Comment on above: Order Comment: Order Date: 09/14/24Order Info: [id number] - CBCDOrder Info: [id number] - SED Performed By: #### L 100.0100, L501.1400, L500.9440, L501.6784, L101.9900 ####[facility] [address] [place], [address] Erythrocyte distribution wid th (RBC) [Ratio]Ordered By: Alejandro Rosales on 09-14-2024 Erythrocyte distribution width (RBC) [Entitic vol] 47.6 fL High 35.1-43.9 [facility] Erythrocyte distribution wid th ratioOrdered By: Alejandro Rosales on 09-14-2024 Erythrocyte distribution width (RBC) [Ratio] 15.0 % High 11.6-14.6 [facility] Erythrocyte distribution wid th standard deviationOrdered By: Alejandro Rosales on 09-14-2024 Erythrocyte distribution width (RBC) [Ratio] 47.6 fl High 35.1-43.9 [facility] Erythrocyte sedimentation ra teOrdered By: Alejandro Rosales on 09-14-2024 ESR (Bld) [Velocity] 46 mm/h High 0-30 [facility] Estimated glomerular filtrat ion rate (GFR) AmericanOrdered By: Alejandro Rosales on 09-14-2024 Estimated GFR (MDRD) Amer 72 mL/min >60 [facility] Comment on above: GFR Calc Finger(s) Min 2 Viewson 09-04 Finger(s) Min 2 Views Normal [facility] Gamma globulin measurement b y protein electrophoresisOrdered By: Alejandro Rosales on 09-14-2024 Gamma Globulins 1.4 g/dL 0.4-1.8 [facility] Globulin (S) [Mass/Vol]Order ed By: Alejandro Rosales on 09-14-2024 Globulin (PEP) 3.7 g/dL 2.2-3.9 [facility] Glomerular filtration rate ( GFR) estimationOrdered By: Alejandro Rosales on 09-14-2024 Estimated GFR (MDRD) Non-Af Amer 60 mL/min >60 [facility] Comment on above: Non- GFR Calc GFR/1.73 sq M.predicted among non-blacks MDRD (S/P/Bld) [Vol rate/Area] 60 mL/min/{1.73_m2} >60 [facility] Comment on above: Non- GFR Calc Glucose measurementOrdered B y: Alejandro Rosales on 09-14-2024 Glucose [Mass/Vol] 132 mg/dL High 74-106 [facility] Comment on above: Fasting Glucose resu lt greater than or equal to 126 mg/dL suggests DIABETES MELLITUS per A.D.A. criteria. Hematocrit Auto (Bld) [Volum e fraction]Ordered By: Alejandro Rosales on 09-14-2024 Hematocrit (Bld) [Volume fraction] 46.8 % 37-47 [facility] Hemoglobin measurementOrdere d By: Alejandro Rosales on 09-14-2024 Hemoglobin (Bld) [Mass/Vol] 15.1 g/dL High 12.0-15.0 [facility] Immature granulocytes/100 WB C Auto (Bld)Ordered By: Alejandro Rosales on 09-14-2024 Immature granulocytes/100 WBC (Bld) 0.300 % 0.0-0.9 [facility] Comment on above: IG% - Immature Granu locytes (promyelocytes, myelocytes and metamyelocytes) > 1% indicates that a LEFT SHIFT is Present. Laboratory - Chemistry and C hemistry - challengeOrdered By: Alejandro Rosales on 09-14-2024 AST [Catalytic activity/Vol] 14 U/L Low 15-37 [facility] Lymphocytes Auto (Unsp spec) [#/Vol]Ordered By: Alejandro Rosales on 09-14-2024 Lymphocytes (Bld) [#/Vol] 1.72 10*3/uL 0.83-4.51 [facility] Lymphocytes/100 WBC Auto (Un sp spec)Ordered By: Alejandro Rosales on 09-14-2024 Lymphocytes/100 WBC (Bld) 22.3 % 19-41 [facility] MCV (mean corpuscular volume ) determinationOrdered By: Alejandro Rosales on 09-14-2024 MCV (RBC) [Entitic vol] 86.7 fL 81-99 [facility] Mean corpuscular hemoglobin (MCH) determinationOrdered By: Alejandro Rosales on 09-14-2024 MCH (RBC) [Entitic mass] 28.0 pg 27.0-32.0 [facility] Mean corpuscular hemoglobin concentration (MCHC) determinationOrdered By: Alejandro Roslaes on 09-14-2024 MCHC (RBC) [Mass/Vol] 32.3 g/dL 32-36 [facility] Mean platelet volume determi nationOrdered By: Alejandro Rosales on 09-14-2024 Platelet mean volume (Bld) [Entitic vol] 10.5 fL 6.2-12.0 [facility] Microalbumin,Random Urineon 09-14-2024 MICROALBUMIN,UR 73.4 mg/L Normal NO RANGE EST. [facility] Comment on above: Order Comment: Order Date: 09/14/24Order Info: [id number] - CREATUOrder Info: [id number] - ALBU Performed By: #### L 502.0500, L501.1200 ####[facility] [address] [place], [address] Monocyte percentageOrdered B y: Alejandro Rosales on 09-14-2024 Monocytes/100 WBC (Bld) 8.2 % 0-10 [facility] Neutrophil percentageOrdered By: Alejandro Rosales on 09-14-2024 Neutrophils/100 WBC (Bld) 67.4 % 47-70 [facility] No Panel InformationOrdered By: Alejandro Rosales on 09-14-2024 Addendum Document Comment . [facility] Comment on above: The SPE pattern appe ars unremarkable. Evidence ofmonoclonal protein is not apparent.Performed at: [facility] [id number] Director: Taiwo Quintero PhD, Phone: [phone] Nucleated red blood cell per centageOrdered By: Alejandro Rosales on 09-14-2024 Nucleated RBC/100 WBC (Bld) [Ratio] 0 % 0-5 [facility] Platelet countOrdered By: Ike Rosales on 09-14-2024 Platelets (Bld) [#/Vol] 201 10*3/uL 150-450 [facility] Potassium measurementOrdered By: Alejandro Rosales on 09-14-2024 Potassium [Moles/Vol] 3.6 mmol/L 3.5-5.1 [facility] Protein Fractions Elph [Inte rp]Ordered By: Alejandro Rosales on 09-14-2024 Protein Electrophoresis Interpret Comment . [facility] Comment on above: Protein electrophore sis scan will follow via computer,mail, or statistical financial analyst delivery. Protein Fractions [Interp] Comment . [facility] Comment on above: Protein electrophore sis scan will follow via computer,mail, or statistical financial analyst delivery. Protein.monoclonal Elph [Mas s/Vol]Ordered By: Alejandro Rosales on 09-14-2024 Protein Electrophoresis M-Carlos Not Observed g/dL Not Observed [facility] RBC Auto (Bld) [#/Vol]Ordere d By: Alejandro Rosales on 09-14-2024 RBC (Bld) [#/Vol] 5.40 10*6/uL 4.2-5.4 [facility] Random urine microalbumin me asurementOrdered By: Alejandro Rosales on 09-14-2024 Urine Random Microalbumin 73.4 mg/L NO RANGE EST. [facility] Rheumatoid Factoron 09-14-19 25 RHEUMATOID FAC < 10.0 Normal <15 [facility] Comment on above: Order Comment: Order Date: 09/14/24Order Info: [id number] - CMPOrder Info: [id number] - URICOrder Info: [id number] - CRPOrder Info: [id number] - RA Performed By: #### L 3100.3450, L3100.5475, L505.7010 ####[facility] [address] [place], [place], [id number] Rheumatoid factor measuremen tOrdered By: Alejandro Rosales on 09-14-2024 Rheumatoid Factor < 10.0 IU/mL <15 [facility] Serum albumin to globulin ra paula by protein electrophoresisOrdered By: Alejandro Rosales on 09-14-2024 Albumin/Globulin Elph [Mass ratio] 0.8 0.7-1.7 [facility] Serum anion gap measurementO rdered By: Alejandro Rosales on 09-14-2024 Anion gap [Moles/Vol] 6 mmol/L 5-15 [facility] Serum globulin measurementOr dered By: Alejandro Rosales on 09-14-2024 Globulin (S) [Mass/Vol] 4.4 g/dL High 2.2-4.2 [facility] Serum globulin measurement ( mass/volume)Ordered By: Alejandro Rosales on 09-14-2024 Globulin (S) [Mass/Vol] 3.7 g/dL 2.2-3.9 [facility] Serum or plasma alanine herrera otransferase (ALT) measurementOrdered By: Alejandro Rosales on 09-14-2024 ALT [Catalytic activity/Vol] 15 U/L 13-56 [facility] Serum or plasma albumin bessie urement (mass/volume)Ordered By: Alejandro Rosales on 09-14-2024 Albumin [Mass/Vol] 3.2 g/dL 3.2-5.0 [facility] Serum or plasma alkaline gloria sphatase measurementOrdered By: Alejandro Rosales on 09-14-2024 ALP [Catalytic activity/Vol] 104 U/L 45-117 [facility] Serum or plasma beta globuli n measurement by electrophoresis (mass/volume)Ordered By: Alejandro Rosales on 09-14-2024 Beta globulin Elph [Mass/Vol] 1.2 g/dL 0.7-1.3 [facility] Serum or plasma calcium bessie urement (mass/volume)Ordered By: Alejandro Rosales on 09-14-2024 Calcium [Mass/Vol] 9.3 mg/dL 8.5-10.1 [facility] Serum or plasma creatinine m easurement (mass/volume)Ordered By: Alejandro Rosales on 09-14-2024 Creatinine [Mass/Vol] 0.97 mg/dL 0.55-1.02 [facility] Comment on above: The validity of the calculated GFR & GFRAA in patients over 70 years has not been determined. Clinical correlation is essential. Serum or plasma protein bessie urement (mass/volume)Ordered By: lAejandro Rosales on 09-14-2024 Protein [Mass/Vol] 6.8 g/dL 6.0-8.5 [facility] Serum or plasma protein mono clonal measurement by electrophoresis (mass/volume)Ordered By: Alejandro Rosales on 09-14-2024 Protein.monoclonal Elph [Mass/Vol] Not Observed g/dL Not Observed [facility] Serum or plasma urea nitroge n measurement (mass/volume)Ordered By: Alejandro Rosales on 09-14-2024 Urea nitrogen [Mass/Vol] 11 mg/dL 7-18 [facility] Serum or plasma uric acid me asurement (mass/volume)Ordered By: Alejandro Rosales on 09-14-2024 Urate [Mass/Vol] 5.9 mg/dL 2.6-6.0 [facility] Comment on above: The drugs N-Acetylcy steine and Metamizole may falsely depress this assay. Sodium levelOrdered By: Alejandro Rosales on 09-14-2024 Sodium [Moles/Vol] 138 mmol/L 136-145 [facility] Total proteinOrdered By: Kate Rosales on 09-14-2024 Protein [Mass/Vol] 7.6 g/dL 6.4-8.2 [facility] Uric Acidon 09-14-2024 URIC 5.9 mg/dL Normal 2.6-6.0 [facility] Comment on above: Order Comment: Order Date: 09/14/24Order Info: [id number] - CMPOrder Info: [id number] - URICOrder Info: [id number] - CRPOrder Info: [id number] - RA Result Comment: The drugs N-Acetylcysteine and Metamizole may falselydepress this assay. Performed By: #### L 100.0100, L501.1400, L500.4050, L501.6710, L101.9900 ####[facility] [address] [place], [address] Urine creatinine measurement (mass/volume)Ordered By: Alejandro Rosales on 09-14-2024 Creatinine (U) [Mass/Vol] 74.70 mg/dL NO RANGE EST. [facility] White blood cell (WBC) count Ordered By: Alejandro Rosales on 09-14-2024 WBC (Bld) [#/Vol] 7.7 10*3/uL 4.4-11.0 [facility] BNP,B-Type NATRIURETIC PEPTI Adrien 04-19-2024 Natriuretic peptide B (Bld) [Mass/Vol] 58.6 pg/mL Normal 0-100 [facility] Comment on above: Performed By: #### L 503.6620 ####[facility] [address] [place], [place], [address] CBC W/Diff, Automatedon 04-04-2023 Absolute Lymph 1.58 X10 3/uL Normal 0.83-4.51 [facility] Comment on above: Order Comment: Order Date: 04/19/24Order Info: 018- - CBCD Performed By: #### L 502.0250, L503.6550, L100.0100, L506.0400, L506.0250, L501.9520, L500.4050, L501.9985, L503.0105 ####[facility] [address] [place], [address] Absolute Neut 4.4 X10 3/uL Normal 2.0-7.7 [facility] Comment on above: Order Comment: Order Date: 04/19/24Order Info: 01811-02 - CBCD Performed By: #### L 502.0250, L503.6550, L100.0100, L506.0400, L506.0250, L501.9520, L500.4050, L501.9985, L503.0105 ####[facility] [address] [place], [address] Basophils/100 WBC (Bld) 0.6 % Normal 0-1 [facility] Comment on above: Order Comment: Order Date: 04/19/24Order Info: 018- - CBCD Performed By: #### L 502.0250, L503.6550, L100.0100, L506.0400, L506.0250, L501.9520, L500.4050, L501.9985, L503.0105 ####[facility] [address] [place], [address] Eosinophils/100 WBC (Bld) 1.5 % Normal 0-5 [facility] Comment on above: Order Comment: Order Date: 04/19/24Order Info: 018- - CBCD Performed By: #### L 502.0250, L503.6550, L100.0100, L506.0400, L506.0250, L501.9520, L500.4050, L501.9985, L503.0105 ####[facility] [address] [place], [address] Erythrocyte distribution width (RBC) [Ratio] 17.2 % High 11.6-14.6 [facility] Comment on above: Order Comment: Order Date: 04/19/24Order Info: 0184-1 - CBCD Performed By: #### L 502.0250, L503.6550, L100.0100, L506.0400, L506.0250, L501.9520, L500.4050, L501.9985, L503.0105 ####[facility] [address] [place], [place], [phone] Hematocrit (Bld) [Volume fraction] 46.0 % Normal 37-47 [facility] Comment on above: Order Comment: Order Date: 04/19/24Order Info: 018-1 - CBCD Performed By: #### L 502.0250, L503.6550, L100.0100, L506.0400, L506.0250, L501.9520, L500.4050, L501.9985, L503.0105 ####[facility] [address] [place], [place], [phone](671) Hemoglobin (Bld) [Mass/Vol] 13.7 g/dL Normal 12.0-15.0 [facility] Comment on above: Order Comment: Order Date: 04/19/24Order Info: 0184-1 - CBCD Performed By: #### L 502.0250, L503.6550, L100.0100, L506.0400, L506.0250, L501.9520, L500.4050, L501.9985, L503.0105 ####[facility] [address] [place], [address] IG% 0.200 Normal 0.0-0.9 [facility] Comment on above: Order Comment: Order Date: 04/19/24Order Info: 018-1 - CBCD Result Comment: IG% - Immature Granulocytes (promyelocytes, myelocytes andmetamyelocytes) > 1% indicates that a LEFT SHIFT is Present. Performed By: #### L 502.0250, L503.6550, L100.0100, L506.0400, L506.0250, L501.9520, L500.4050, L501.9985, L503.0105 ####[facility] [address] [place], [address] Lymphocytes/100 WBC (Bld) 24.0 % Normal 19-41 [facility] Comment on above: Order Comment: Order Date: 04/19/24Order Info: 0184- - CBCD Performed By: #### L 502.0250, L503.6550, L100.0100, L506.0400, L506.0250, L501.9520, L500.4050, L501.9985, L503.0105 ####[facility] [address] [place], [address] MCH (RBC) [Entitic mass] 26.6 pg Low 27.0-32.0 [facility] Comment on above: Order Comment: Order Date: 04/19/24Order Info: 0184- - CBCD Performed By: #### L 502.0250, L503.6550, L100.0100, L506.0400, L506.0250, L501.9520, L500.4050, L501.9985, L503.0105 ####[facility] [address] [place], [address] MCHC (RBC) [Mass/Vol] 29.8 g/dL Low 32-36 [facility] Comment on above: Order Comment: Order Date: 04/19/24Order Info: 0184-1 - CBCD Performed By: #### L 502.0250, L503.6550, L100.0100, L506.0400, L506.0250, L501.9520, L500.4050, L501.9985, L503.0105 ####[facility] [address] [place], [address] MCV (RBC) [Entitic vol] 89.3 fL Normal 81-99 [facility] Comment on above: Order Comment: Order Date: 04/19/24Order Info: 0184-1 - CBCD Performed By: #### L 502.0250, L503.6550, L100.0100, L506.0400, L506.0250, L501.9520, L500.4050, L501.9985, L503.0105 ####[facility] [address] [place], [address] Monocytes/100 WBC (Bld) 7.1 % Normal 0-10 [facility] Comment on above: Order Comment: Order Date: 04/19/24Order Info: 0184-1 - CBCD Performed By: #### L 502.0250, L503.6550, L100.0100, L506.0400, L506.0250, L501.9520, L500.4050, L501.9985, L503.0105 ####[facility] [address] [place], [address] Neutrophils/100 WBC (Bld) 66.6 % Normal 47-70 [facility] Comment on above: Order Comment: Order Date: 04/19/24Order Info: 0184-1 - CBCD Performed By: #### L 502.0250, L503.6550, L100.0100, L506.0400, L506.0250, L501.9520, L500.4050, L501.9985, L503.0105 ####[facility] [address] [place], [address] Nucleated RBC (Bld) [#/Vol] 0 10*3/uL Normal 0-5 [facility] Comment on above: Order Comment: Order Date: 04/19/24Order Info: 0184-1 - CBCD Performed By: #### L 502.0250, L503.6550, L100.0100, L506.0400, L506.0250, L501.9520, L500.4050, L501.9985, L503.0105 ####[facility] [address] [place], [address] Platelet mean volume (Bld) [Entitic vol] 10.5 fL Normal 6.2-12.0 [facility] Comment on above: Order Comment: Order Date: 04/19/24Order Info: 018-1 - CBCD Performed By: #### L 502.0250, L503.6550, L100.0100, L506.0400, L506.0250, L501.9520, L500.4050, L501.9985, L503.0105 ####[facility] [address] [place], [address] Platelets (Bld) [#/Vol] 193 10*3/uL Normal 150-450 [facility] Comment on above: Order Comment: Order Date: 04/19/24Order Info: 0184-1 - CBCD Performed By: #### L 502.0250, L503.6550, L100.0100, L506.0400, L506.0250, L501.9520, L500.4050, L501.9985, L503.0105 ####[facility] [address] [place], [address] RBC (Bld) [#/Vol] 5.15 10*6/uL Normal 4.2-5.4 [facility] Comment on above: Order Comment: Order Date: 04/19/24Order Info: 0184-1 - CBCD Performed By: #### L 502.0250, L503.6550, L100.0100, L506.0400, L506.0250, L501.9520, L500.4050, L501.9985, L503.0105 ####[facility] [address] [place], [place], [phone] RDW SD 55.1 fl High 35.1-43.9 [facility] Comment on above: Order Comment: Order Date: 04/19/24Order Info: 0184- - CBCD Performed By: #### L 502.0250, L503.6550, L100.0100, L506.0400, L506.0250, L501.9520, L500.4050, L501.9985, L503.0105 ####[facility] [address] [place], [place], [phone] WBC (Bld) [#/Vol] 6.6 10*3/uL Normal 4.4-11.0 [facility] Comment on above: Order Comment: Order Date: 04/19/24Order Info: 0184- - CBCD Performed By: #### L 502.0250, L503.6550, L100.0100, L506.0400, L506.0250, L501.9520, L500.4050, L501.9985, L503.0105 ####[facility] [address] [place], [place], [phone] Comprehensive Metabolic Prof mson 04-19-2024 Albumin [Mass/Vol] 3.6 g/dL Normal 3.2-5.0 [facility] Comment on above: Order Comment: Order Date: 04/19/24Order Info: 0786-1 - CMPOrder Info: 3016-3 - TSHOrder Info: 2276-4 - FEROrder Info: 2284-8 - FOLSOrder Info: 3024-7 - T4FN Performed By: #### L 502.0250, L503.6550, L100.0100, L506.0400, L506.0250, L501.9520, L500.4050, L501.9985, L503.0105 ####[facility] [address] [place], [address] Albumin/Globulin [Mass ratio] 0.9 {ratio} Normal 0.9-2.4 [facility] Comment on above: Order Comment: Order Date: 04/19/24Order Info: 0786-1 - CMPOrder Info: 3 - TSHOrder Info: 2275-11 - FEROrder Info: 2284-03 - FOLSOrder Info: 3024-7 - T4FN Performed By: #### L 502.0250, L503.6550, L100.0100, L506.0400, L506.0250, L501.9520, L500.4050, L501.9985, L503.0105 ####[facility] [address] [place], [address] ALK P 114 U/L Normal 45-117 [facility] Comment on above: Order Comment: Order Date: 04/19/24Order Info: 785- - CMPOrder Info: 3 - TSHOrder Info: 2275-11 - FEROrder Info: 2284-03 - FOLSOrder Info: 3024-7 - T4FN Performed By: #### L 502.0250, L503.6550, L100.0100, L506.0400, L506.0250, L501.9520, L500.4050, L501.9985, L503.0105 ####[facility] [address] [place], [address] ALT [Catalytic activity/Vol] 16 U/L Normal 13-56 [facility] Comment on above: Order Comment: Order Date: 04/19/24Order Info: 86-1 - CMPOrder Info: 3 - TSHOrder Info: 2275-11 - FEROrder Info: 2284-03 - FOLSOrder Info: 3024-7 - T4FN Performed By: #### L 502.0250, L503.6550, L100.0100, L506.0400, L506.0250, L501.9520, L500.4050, L501.9985, L503.0105 ####[facility] [address] [place], [address] AST [Catalytic activity/Vol] 17 U/L Normal 15-37 [facility] Comment on above: Order Comment: Order Date: 04/19/24Order Info: 0786-1 - CMPOrder Info: 3 - TSHOrder Info: 2275-11 - FEROrder Info: 2284-03 - FOLSOrder Info: 3024-7 - T4FN Performed By: #### L 502.0250, L503.6550, L100.0100, L506.0400, L506.0250, L501.9520, L500.4050, L501.9985, L503.0105 ####[facility] [address] [place], [place], [phone]([phone]) Bilirubin [Mass/Vol] 1.30 mg/dL High 0.20-1.00 [facility] Comment on above: Order Comment: Order Date: 04/19/24Order Info: 785-1 - CMPOrder Info: 3015-10 - TSHOrder Info: 2275-11 - FEROrder Info: 2284-03 - FOLSOrder Info: 3023-7 - T4FN Result Comment: For patients on eltrombopag therapy, use of Dimension [place] TBIL is not recommended. Performed By: #### L 502.0250, L503.6550, L100.0100, L506.0400, L506.0250, L501.9520, L500.4050, L501.9985, L503.0105 ####[facility] [address] [place], [address] BUN/CRE 15.8 RATIO Normal 10-20 [facility] Comment on above: Order Comment: Order Date: 04/19/24Order Info: 0786-1 - CMPOrder Info: 3 - TSHOrder Info: 2275-11 - FEROrder Info: 2284-03 - FOLSOrder Info: 4-7 - T4FN Performed By: #### L 502.0250, L503.6550, L100.0100, L506.0400, L506.0250, L501.9520, L500.4050, L501.9985, L503.0105 ####[facility] [address] [place], [address] CA,Total 9.7 mg/dL Normal 8.5-10.1 [facility] Comment on above: Order Comment: Order Date: 04/19/24Order Info: 0786-1 - CMPOrder Info: 3015-10 - TSHOrder Info: 2275-11 - FEROrder Info: 2284-03 - FOLSOrder Info: 3024-7 - T4FN Performed By: #### L 502.0250, L503.6550, L100.0100, L506.0400, L506.0250, L501.9520, L500.4050, L501.9985, L503.0105 ####[facility] [address] [place], [address] Chloride [Moles/Vol] 103 mmol/L Normal 98-107 [facility] Comment on above: Order Comment: Order Date: 04/19/24Order Info: 0786- - CMPOrder Info: 3 - TSHOrder Info: 2275-11 - FEROrder Info: 2284-03 - FOLSOrder Info: 3024-7 - T4FN Performed By: #### L 502.0250, L503.6550, L100.0100, L506.0400, L506.0250, L501.9520, L500.4050, L501.9985, L503.0105 ####[facility] [address] [place], [address] CO2 [Moles/Vol] 27.0 mmol/L Normal 21.0-32.0 [facility] Comment on above: Order Comment: Order Date: 04/19/24Order Info: 0786-1 - CMPOrder Info: 3015-10 - TSHOrder Info: 2275-11 - FEROrder Info: 2284-03 - FOLSOrder Info: 3024-02 - T4FN Performed By: #### L 502.0250, L503.6550, L100.0100, L506.0400, L506.0250, L501.9520, L500.4050, L501.9985, L503.0105 ####[facility] [address] [place], [place], [address] Creatinine [Mass/Vol] 0.89 mg/dL Normal 0.55-1.02 [facility] Comment on above: Order Comment: Order Date: 04/19/24Order Info: 0786- - CMPOrder Info: 3015-10 - TSHOrder Info: 2275-11 - FEROrder Info: 2284-03 - FOLSOrder Info: 3024-02 - T4FN Result Comment: The validity of the calculated GFR GFRAA in patients over70 years has not been determined. Clinical correlation isessential. Performed By: #### L 502.0250, L503.6550, L100.0100, L506.0400, L506.0250, L501.9520, L500.4050, L501.9985, L503.0105 ####[facility] [address] [place], [place], [phone] EST GFR - AA 81 mL/min Normal >60 [facility] Comment on above: Order Comment: Order Date: 04/19/24Order Info: 0786-1 - CMPOrder Info: 3015-10 - TSHOrder Info: 2275-11 - FEROrder Info: 2284-03 - FOLSOrder Info: 3027 - T4FN Result Comment: Afri can Iranian GFR Calc Performed By: #### L 502.0250, L503.6550, L100.0100, L506.0400, L506.0250, L501.9520, L500.4050, L501.9985, L503.0105 ####[facility] [address] [place], [address] GAP 7 Normal 5-15 [facility] Comment on above: Order Comment: Order Date: 04/19/24Order Info: 0786-1 - CMPOrder Info: 3 - TSHOrder Info: 2275-11 - FEROrder Info: 2284-03 - FOLSOrder Info: 7 - T4FN Performed By: #### L 502.0250, L503.6550, L100.0100, L506.0400, L506.0250, L501.9520, L500.4050, L501.9985, L503.0105 ####[facility] [address] [place], [place], [phone] GFR/1.73 sq M.predicted among non-blacks MDRD (S/P/Bld) [Vol rate/Area] 67 mL/min/{1.73_m2} Normal >60 [facility] Comment on above: Order Comment: Order Date: 04/19/24Order Info: 07- - CMPOrder Info: 3015-10 - TSHOrder Info: 2275-11 - FEROrder Info: 2284-03 - FOLSOrder Info: 7 - T4FN Result Comment: Non- GFR Calc Performed By: #### L 502.0250, L503.6550, L100.0100, L506.0400, L506.0250, L501.9520, L500.4050, L501.9985, L503.0105 ####[facility] [address] [place], [address] Globulin (S) [Mass/Vol] 4.2 g/dL Normal 2.2-4.2 [facility] Comment on above: Order Comment: Order Date: 04/19/24Order Info: 0786-1 - CMPOrder Info: 3 - TSHOrder Info: 2275-11 - FEROrder Info: 2284-03 - FOLSOrder Info: 7 - T4FN Performed By: #### L 502.0250, L503.6550, L100.0100, L506.0400, L506.0250, L501.9520, L500.4050, L501.9985, L503.0105 ####[facility] [address] [place], [address] Glucose [Mass/Vol] 103 mg/dL Normal 74-106 [facility] Comment on above: Order Comment: Order Date: 04/19/24Order Info: 0786-1 - CMPOrder Info: 3 - TSHOrder Info: 2275-11 - FEROrder Info: 2284-03 - FOLSOrder Info: 3023-7 - T4FN Result Comment: Fast ing Glucose result from 100 to 125 mg/dLsuggests IMPAIRED HOMEOSTASIS per A.D.A. criteria. Performed By: #### L 502.0250, L503.6550, L100.0100, L506.0400, L506.0250, L501.9520, L500.4050, L501.9985, L503.0105 ####[facility] [address] [place], [address] Potassium [Moles/Vol] 3.5 mmol/L Normal 3.5-5.1 [facility] Comment on above: Order Comment: Order Date: 04/19/24Order Info: 0786-1 - CMPOrder Info: 3 - TSHOrder Info: 2275-11 - FEROrder Info: 2284-03 - FOLSOrder Info: 3023-7 - T4FN Performed By: #### L 502.0250, L503.6550, L100.0100, L506.0400, L506.0250, L501.9520, L500.4050, L501.9985, L503.0105 ####[facility] [address] [place], [address] Sodium [Moles/Vol] 137 mmol/L Normal 136-145 [facility] Comment on above: Order Comment: Order Date: 04/19/24Order Info: 0786-1 - CMPOrder Info: 3 - TSHOrder Info: 2275-11 - FEROrder Info: 2284-03 - FOLSOrder Info: 3024-7 - T4FN Performed By: #### L 502.0250, L503.6550, L100.0100, L506.0400, L506.0250, L501.9520, L500.4050, L501.9985, L503.0105 ####[facility] [address] [place], [place], [phone] T PROT 7.8 g/dL Normal 6.4-8.2 [facility] Comment on above: Order Comment: Order Date: 04/19/24Order Info: 785-1 - CMPOrder Info: 3015-10 - TSHOrder Info: 2275-11 - FEROrder Info: 2284-03 - FOLSOrder Info: 3024-7 - T4FN Performed By: #### L 502.0250, L503.6550, L100.0100, L506.0400, L506.0250, L501.9520, L500.4050, L501.9985, L503.0105 ####[facility] [address] [place], [place], [phone] Urea nitrogen [Mass/Vol] 14 mg/dL Normal 7-18 [facility] Comment on above: Order Comment: Order Date: 04/19/24Order Info: 07- - CMPOrder Info: 3 - TSHOrder Info: 2275-11 - FEROrder Info: 2284-03 - FOLSOrder Info: 3024-7 - T4FN Performed By: #### L 502.0250, L503.6550, L100.0100, L506.0400, L506.0250, L501.9520, L500.4050, L501.9985, L503.0105 ####[facility] [address] [place], [place], [phone](423) Ferritinon 04-19-2024 Ferritin [Mass/Vol] 93 ng/mL Normal 8-252 [facility] Comment on above: Order Comment: Order Date: 04/19/24Order Info: 785-08 - CMPOrder Info: 3015-10 - TSHOrder Info: 2275-11 - FEROrder Info: 2284-03 - FOLSOrder Info: 4-7 - T4FN Performed By: #### L 502.0250, L503.6550, L100.0100, L506.0400, L506.0250, L501.9520, L500.4050, L501.9985, L503.0105 ####[facility] [address] [place], [place], [address] Folates, (Folic Acid)on 04-04 FOLATES 9.80 ng/mL Normal 3.1-55.4 [facility] Comment on above: Order Comment: Order Date: 04/19/24Order Info: 07 - CMPOrder Info: 3015-10 - TSHOrder Info: 2275-11 - FEROrder Info: 2284-03 - FOLSOrder Info: 3024-7 - T4FN Performed By: #### L 502.0250, L503.6550, L100.0100, L506.0400, L506.0250, L501.9520, L500.4050, L501.9985, L503.0105 ####[facility] [address] [place], [place], [address] Hemoglobin A1con 04-19-2024 HbA1c (Bld) [Mass fraction] 6.6 % High 3.8-5.6 [facility] Comment on above: Order Comment: Order Date: 04/19/24Order Info: 4548-4 - A1C Result Comment: Norm al < 5.7 % Prediabetic 5.7 - 6.4 % Diabetic >or= 6.5 % Please note range changes. Performed By: #### L 502.0250, L503.6550, L100.0100, L506.0400, L506.0250, L501.9520, L500.4050, L501.9985, L503.0105 ####[facility] [address] [place], [place], [phone] Microalb:Creat Ratio,Random URon 04-19-2024 Creatinine [Mass/Vol] 133.00 mg/dL Normal NO RAN GE EST. [facility] Comment on above: Order Comment: Order Date: 04/19/24Order Info: 0779-1 - MIACREOrder Info: 65500-1 - ALBU Performed By: #### L 502.0250, L503.6550, L100.0100, L506.0400, L506.0250, L501.9520, L500.4050, L501.9985, L503.0105 ####[facility] [address] [place], [place], [phone](512) MALB:CRE 182.0 mg/g CRE High <30 mg/g CRE [facility] Comment on above: Order Comment: Order Date: 04/19/24Order Info: 0779-1 - MIACREOrder Info: 57423-5 - ALBU Performed By: #### L 502.0250, L503.6550, L100.0100, L506.0400, L506.0250, L501.9520, L500.4050, L501.9985, L503.0105 ####[facility] [address] [place], [place], [phone] MICROALBUMIN,UR 242.0 mg/L Normal NO RANGE EST. [facility] Comment on above: Order Comment: Order Date: 04/19/24Order Info: 0779-1 - MIACREOrder Info: [id number] - ALBU Performed By: #### L 502.0250, L503.6550, L100.0100, L506.0400, L506.0250, L501.9520, L500.4050, L501.9985, L503.0105 ####[facility] [address] [place], [address] T4 Free Directon 04-19-2024 T4 FREE DIRECT 1.30 ng/dL Normal 0.76-1.46 [facility] Comment on above: Order Comment: Order Date: 04/19/24Order Info: 0786- - CMPOrder Info: 3 - TSHOrder Info: 2275-11 - FEROrder Info: 2284-03 - FOLSOrder Info: 302-7 - T4FN Performed By: #### L 502.0250, L503.6550, L100.0100, L506.0400, L506.0250, L501.9520, L500.4050, L501.9985, L503.0105 ####[facility] [address] [facility]. [place], [place], [address] Thyroid Stim Hormone (TSH)on 04-19-2024 TSH 13.400 uIU/mL High 0.358-3.74 0 [facility] Comment on above: Order Comment: Order Date: 04/19/24Order Info: 0786- - CMPOrder Info: 3015-10 - TSHOrder Info: 2275-11 - FEROrder Info: 2284-03 - FOLSOrder Info: 3023-7 - T4FN Performed By: #### L 502.0250, L503.6550, L100.0100, L506.0400, L506.0250, L501.9520, L500.4050, L501.9985, L503.0105 ####[facility] [address] [place], [place], [address] Vitamin B12on 04-19-2024 Cobalamin (Vitamin B12) [Mass/Vol] 310 pg/mL Normal 211-911 [facility] Comment on above: Order Comment: Order Date: 04/19/24Order Info: 2132-9 - B12 Performed By: #### L 502.0250, L503.6550, L100.0100, L506.0400, L506.0250, L501.9520, L500.4050, L501.9985, L503.0105 ####[facility] [address] [place], [address] Basophil percentageOrdered B y: Dr. Robbins on 12-31-2022 Basophil percentage < 0.9 mg/dL 0.55-1.02 [facility] No Panel InformationOrdered By: Dr. Robbins on 12-31-2022 Bedside Estimated GFR (eGFR) > 60.0000 mL/min >60 [facility] Serum or plasma carcinoembry onic antigen measurement (mass/volume)Ordered By: Dr. Robbins on 12-17-2022 Carcinoembryonic Ag [Mass/Vol] 6.5 ng/mL 0.0-4.7 [facility] Comment on above: Nonsmokers <3.9 Smok ers <5.6[employer] Electrochemiluminescence Immunoassay(ECLIA)Values obtained with different assay methods or kitscannot be used interchangeably. Results cannot beinterpreted as absolute evidence of the presence orabsence of malignant disease.Performed at: [facility] [place], [place] [id number] Director: Taiwo Quintero PhD, Phone: [phone] Basophil percentageOrdered B y: Dr. Robbins on 12-04-2022 Basophil percentage < 0.9 mg/dL 0.55-1.02 [facility] No Panel InformationOrdered By: Dr. Robbins on 12-04-2022 Bedside Estimated GFR (eGFR) > 60.0000 mL/min >60 [facility] Serum or plasma carcinoembry onic antigen measurement (mass/volume)Ordered By: Dr. Robbins on 11-20-2022 Carcinoembryonic Ag [Mass/Vol] 8.0 ng/mL 0.0-4.7 [facility] Comment on above: Nonsmokers <3.9 Smok ers <5.6[employer] Electrochemiluminescence Immunoassay(ECLIA)Values obtained with different assay methods or kitscannot be used interchangeably. Results cannot beinterpreted as absolute evidence of the presence orabsence of malignant disease.Performed at: [facility] [place], [place] [id number] Director: Taiwo Quintero PhD, Phone: [phone] Basophil percentageOrdered B y: Dr. Robbins on 10-16-2022 Chloride [Moles/Vol] 98 mmol/L 98-107 [facility] Glucose [Mass/Vol] 192 mg/dL 74-106 [facility] Comment on above: Fasting Glucose resu lt greater than or equal to 126 mg/dL suggests DIABETES MELLITUS per A.D.A. criteria. Potassium [Moles/Vol] 3.6 mmol/L 3.5-5.1 [facility] Sodium [Moles/Vol] 137 mmol/L 136-145 [facility] Laboratory - Chemistry and C hemistry - challengeOrdered By: Dr. Robbins on 10-16-2022 CO2 [Moles/Vol] 32.0 mmol/L 21.0-32.0 [facility] Urea nitrogen/Creatinine [Mass ratio] 10.4 mg/mg 10-20 [facility] No Panel InformationOrdered By: Dr. Robbins on 10-16-2022 Estimated GFR (MDRD) Amer 74 mL/min >60 [facility] Comment on above: GFR Calc Estimated GFR (MDRD) Non-Af Amer 61 mL/min >60 [facility] Comment on above: Non- GFR Calc Serum or plasma calcium bessie urement (mass/volume)Ordered By: Dr. Robbins on 10-16-2022 Calcium [Mass/Vol] 9.3 mg/dL 8.5-10.1 [facility] Serum or plasma carcinoembry onic antigen measurement (mass/volume)Ordered By: Dr. Robbins on 10-16-2022 Carcinoembryonic Ag [Mass/Vol] 8.1 ng/mL 0.0-4.7 [facility] Comment on above: Nonsmokers <3.9 Smok ers <5.6[employer] Electrochemiluminescence Immunoassay(ECLIA)Values obtained with different assay methods or kitscannot be used interchangeably. Results cannot beinterpreted as absolute evidence of the presence orabsence of malignant disease.Performed at: [facility] [employer] [id number] Director: Taiwo Quintero PhD, Phone: [phone] Serum or plasma creatinine m easurement (mass/volume)Ordered By: Dr. Robbins on 10-16-2022 Creatinine [Mass/Vol] 0.96 mg/dL 0.55-1.02 [facility] Comment on above: The validity of the calculated GFR & GFRAA in patients over 70 years has not been determined. Clinical correlation is essential. Serum or plasma urea nitroge n measurement (mass/volume)Ordered By: Dr. Robbins on 10-16-2022 Urea nitrogen [Mass/Vol] 10 mg/dL 7-18 [facility] Thin prep Papanicolaou smear with manual screeningOrdered By: Dr. Robbins on 10-16-2022 Thin prep Papanicolaou smear with manual screening 7 -15 [facility] Absolute lymphocyte countOrd ered By: Dr. Robbins on 10-07-2022 Lymphocytes Auto (Unsp spec) [#/Vol] 1.73 10*3/uL 0.83-4.51 [facility] Basophil percentageOrdered B y: Dr. Robbins on 10-07-2022 Creatinine [Mass/Vol] 1.1 mg/dL 0.55-1.02 [facility] Basophils/100 WBC (Bld) 0.4 % 0-1 [facility] Bilirubin [Mass/Vol] 0.50 mg/dL 0.20-1.00 [facility] Comment on above: For patients on eltr ombopag therapy, use of Dimension [place] TBIL is not recommended. Chloride [Moles/Vol] 96 mmol/L 98-107 [facility] Eosinophils/100 WBC (Bld) 0.9 % 0-5 [facility] Glucose [Mass/Vol] 221 mg/dL 74-106 [facility] Comment on above: Glucose result great er than or equal to 200 mg/dLsuggests DIABETES MELLITUS per A.D.A. criteria. LDH [Catalytic activity/Vol] 275 U/L 84-246 [facility] Neutrophils (Bld) [#/Vol] 7.5 10*3/uL 2.0-7.7 [facility] Neutrophils/100 WBC (Bld) 73.4 % 47-70 [facility] Potassium [Moles/Vol] 2.9 mmol/L 3.5-5.1 [facility] Protein [Mass/Vol] 7.5 g/dL 6.4-8.2 [facility] Sodium [Moles/Vol] 137 mmol/L 136-145 [facility] WBC (Bld) [#/Vol] 10.3 10*3/uL 4.4-11.0 [facility] Blood erythrocytes count (nu mber/volume)Ordered By: Dr. Robbins on 10-07-2022 RBC (Bld) [#/Vol] 5.29 10*6/uL 4.2-5.4 [facility] Blood hemoglobin measurement (mass/volume)Ordered By: Dr. Robbins on 10-07-2022 Hemoglobin (Bld) [Mass/Vol] 14.7 g/dL 12.0-15.0 [facility] Blood lymphocytes/100 leukoc ytesOrdered By: Dr. Robbins on 10-07-2022 Lymphocytes/100 WBC (Bld) 16.9 % 19-41 [facility] Blood monocytes/100 leukocyt esOrdered By: Dr. Robbins on 10-07-2022 Monocytes/100 WBC (Bld) 8.0 % 0-10 [facility] Blood platelet mean volumeOr dered By: Dr. Robbins on 10-07-2022 Platelet mean volume (Bld) [Entitic vol] 10.8 fL 6.2-12.0 [facility] Determination of erythrocyte mean corpuscular volume (MCV)Ordered By: Dr. Robbins on 10-07-2022 MCV (RBC) [Entitic vol] 90.0 fL 81-99 [facility] Hematocrit Auto (Bld) [Volum e fraction]Ordered By: Dr. Robbins on 10-07-2022 Hematocrit (Bld) [Volume fraction] 47.6 % 37-47 [facility] INR in Blood by Coagulation assayOrdered By: Dr. Rosales on 10-07-2022 INR Coag (Bld) [Relative time] 2.8 {INR} [facility] Laboratory - Chemistry and C hemistry - challengeOrdered By: Dr. Robbins on 10-07-2022 GFR/1.73 sq M.predicted among non-blacks MDRD (S/P/Bld) [Vol rate/Area] 52.0000 mL/min/{1.73_m2} >60 [facility] ALP [Catalytic activity/Vol] 131 U/L 45-117 [facility] ALT [Catalytic activity/Vol] 21 U/L 13-56 [facility] CO2 [Moles/Vol] 31.0 mmol/L 21.0-32.0 [facility] Globulin (S) [Mass/Vol] 4.2 g/dL 2.2-4.2 [facility] Urea nitrogen/Creatinine [Mass ratio] 10.3 mg/mg 10-20 [facility] Laboratory - CoagulationOrde red By: Dr. Rosales on 10-07-2022 PT Coag (PPP) [Time] 29.0 s 11.7-14.9 [facility] Laboratory - Hematology and Cell countsOrdered By: Dr. Robbins on 10-07-2022 Erythrocyte distribution width (RBC) [Entitic vol] 48.9 fL 35.1-43.9 [facility] Erythrocyte distribution width (RBC) [Ratio] 14.7 % 11.6-14.6 [facility] Immature granulocytes/100 WBC (Bld) 0.400 % 0.0-0.9 [facility] Comment on above: IG% - Immature Granu locytes (promyelocytes, myelocytes and metamyelocytes) > 1% indicates that a LEFT SHIFT is Present. MCH (RBC) [Entitic mass] 27.8 pg 27.0-32.0 [facility] Nucleated RBC/100 WBC (Bld) [Ratio] 0 % 0-5 [facility] MCHC Auto (RBC) [Mass/Vol]Or dered By: Dr. Robbins on 10-07-2022 MCHC (RBC) [Mass/Vol] 30.9 g/dL 32-36 [facility] No Panel InformationOrdered By: Dr. Robbins on 10-07-2022 Estimated GFR (MDRD) Amer 59 mL/min >60 [facility] Comment on above: GFR Calc Estimated GFR (MDRD) Non-Af Amer 49 mL/min >60 [facility] Comment on above: Non- GFR Calc Platelets bldOrdered By: Dr. Robbins on 10-07-2022 Platelets (Bld) [#/Vol] 258 10*3/uL 150-450 [facility] Serum or plasma albumin bessie urement (mass/volume)Ordered By: Dr. Robbins on 10-07-2022 Albumin [Mass/Vol] 3.3 g/dL 3.2-5.0 [facility] Serum or plasma albumin/glob ulin mass ratioOrdered By: Dr. Robbins on 10-07-2022 Albumin/Globulin [Mass ratio] 0.8 {ratio} 0.9-2.4 [facility] Serum or plasma calcium bessie urement (mass/volume)Ordered By: Dr. Robbins on 10-07-2022 Calcium [Mass/Vol] 9.3 mg/dL 8.5-10.1 [facility] Serum or plasma carcinoembry onic antigen measurement (mass/volume)Ordered By: Dr. Robbins on 10-07-2022 Carcinoembryonic Ag [Mass/Vol] 6.4 ng/mL 0.0-4.7 [facility] Comment on above: Nonsmokers <3.9 [place] ers <5.6[employer] Electrochemiluminescence Immunoassay(ECLIA)Values obtained with different assay methods or kitscannot be used interchangeably. Results cannot beinterpreted as absolute evidence of the presence orabsence of malignant disease.Performed at: [facility] Director: Taiwo Quintero PhD, Phone: [phone] Serum or plasma creatinine m easurement (mass/volume)Ordered By: Dr. Robbins on 10-07-2022 Creatinine [Mass/Vol] 1.17 mg/dL 0.55-1.02 [facility] Comment on above: The validity of the calculated GFR & GFRAA in patients over 70 years has not been determined. Clinical correlation is essential. Serum or plasma urea nitroge n measurement (mass/volume)Ordered By: Dr. Robbins on 10-07-2022 Urea nitrogen [Mass/Vol] 12 mg/dL 7-18 [facility] Thin prep Papanicolaou smear with manual screeningOrdered By: Dr. Robbins on 10-07-2022 Thin prep Papanicolaou smear with manual screening 24 U/L 15-37 [facility] Thin prep Papanicolaou smear with manual screening 10 5-15 [facility] Absolute lymphocyte countOrd ered By: Dr. Rosales on 07-04-2022 Lymphocytes Auto (Unsp spec) [#/Vol] 2.17 10*3/uL 0.83-4.51 [facility] Basophil percentageOrdered B y: Dr. Rosales on 07-04-2022 Basophils/100 WBC (Bld) 0.7 % 0-1 [facility] Bilirubin [Mass/Vol] 0.50 mg/dL 0.20-1.00 [facility] Comment on above: For patients on eltr ombopag therapy, use of Dimension [place] TBIL is not recommended. Chloride [Moles/Vol] 98 mmol/L 98-107 [facility] Eosinophils/100 WBC (Bld) 1.4 % 0-5 [facility] Glucose [Mass/Vol] 159 mg/dL 74-106 [facility] Comment on above: Fasting Glucose resu lt greater than or equal to 126 mg/dL suggests DIABETES MELLITUS per A.D.A. criteria. Neutrophils (Bld) [#/Vol] 5.2 10*3/uL 2.0-7.7 [facility] Neutrophils/100 WBC (Bld) 62.3 % 47-70 [facility] Potassium [Moles/Vol] 4.5 mmol/L 3.5-5.1 [facility] Protein [Mass/Vol] 7.0 g/dL 6.4-8.2 [facility] Sodium [Moles/Vol] 137 mmol/L 136-145 [facility] WBC (Bld) [#/Vol] 8.4 10*3/uL 4.4-11.0 [facility] Blood erythrocytes count (nu mber/volume)Ordered By: Dr. Rosales on 07-04-2022 RBC (Bld) [#/Vol] 5.40 10*6/uL 4.2-5.4 [facility] Blood hemoglobin measurement (mass/volume)Ordered By: Dr. Rosales on 07-04-2022 Hemoglobin (Bld) [Mass/Vol] 14.3 g/dL 12.0-15.0 [facility] Blood lymphocytes/100 leukoc ytesOrdered By: Dr. Rosales on 07-04-2022 Lymphocytes/100 WBC (Bld) 25.9 % 19-41 [facility] Blood monocytes/100 leukocyt esOrdered By: Dr. Rosales on 07-04-2022 Monocytes/100 WBC (Bld) 9.3 % 0-10 [facility] Blood platelet mean volumeOr dered By: Dr. Rosales on 07-04-2022 Platelet mean volume (Bld) [Entitic vol] 10.7 fL 6.2-12.0 [facility] Determination of erythrocyte mean corpuscular volume (MCV)Ordered By: Dr. Rosales on 07-04-2022 MCV (RBC) [Entitic vol] 89.3 fL 81-99 [facility] Hematocrit Auto (Bld) [Volum e fraction]Ordered By: Dr. Rosales on 07-04-2022 Hematocrit (Bld) [Volume fraction] 48.2 % 37-47 [facility] Laboratory - Chemistry and C hemistry - challengeOrdered By: Dr. Rosales on 07-04-2022 ALP [Catalytic activity/Vol] 135 U/L 45-117 [facility] ALT [Catalytic activity/Vol] 23 U/L 13-56 [facility] CO2 [Moles/Vol] 29.0 mmol/L 21.0-32.0 [facility] Globulin (S) [Mass/Vol] 3.5 g/dL 2.2-4.2 [facility] Magnesium [Mass/Vol] 2.1 mg/dL 1.6-2.6 [facility] Urea nitrogen/Creatinine [Mass ratio] 11.4 mg/mg 10-20 [facility] Laboratory - Hematology and Cell countsOrdered By: Dr. Rosales on 07-04-2022 Erythrocyte distribution width (RBC) [Entitic vol] 55.2 fL 35.1-43.9 [facility] Erythrocyte distribution width (RBC) [Ratio] 17.2 % 11.6-14.6 [facility] Immature granulocytes/100 WBC (Bld) 0.400 % 0.0-0.9 [facility] Comment on above: IG% - Immature Granu locytes (promyelocytes, myelocytes and metamyelocytes) > 1% indicates that a LEFT SHIFT is Present. MCH (RBC) [Entitic mass] 26.5 pg 27.0-32.0 [facility] Nucleated RBC/100 WBC (Bld) [Ratio] 0 % 0-5 [facility] Auto (RBC) [Mass/Vol]Or dered By: Dr. Rosales on 07-04-2022 MCHC (RBC) [Mass/Vol] 29.7 g/dL 32-36 [facility] No Panel InformationOrdered By: Dr. Rosales on 07-04-2022 Estimated GFR (MDRD) Amer 74 mL/min >60 [facility] Comment on above: GFR Calc Estimated GFR (MDRD) Non-Af Amer 61 mL/min >60 [facility] Comment on above: Non- GFR Calc Total Iron Binding Capacity 386 ug/dL 250-450 [facility] Platelets bldOrdered By: Dr. Rosales on 07-04-2022 Platelets (Bld) [#/Vol] 297 10*3/uL 150-450 [facility] Serum or plasma albumin bessie urement (mass/volume)Ordered By: Dr. Rosales on 07-04-2022 Albumin [Mass/Vol] 3.5 g/dL 3.2-5.0 [facility] Serum or plasma albumin/glob ulin mass ratioOrdered By: Dr. Rosales on 07-04-2022 Albumin/Globulin [Mass ratio] 1.0 {ratio} 0.9-2.4 [facility] Serum or plasma calcium bessie urement (mass/volume)Ordered By: Dr. Rosales on 07-04-2022 Calcium [Mass/Vol] 8.8 mg/dL 8.5-10.1 [facility] Serum or plasma creatinine m easurement (mass/volume)Ordered By: Dr. Rosales on 07-04-2022 Creatinine [Mass/Vol] 0.96 mg/dL 0.55-1.02 [facility] Comment on above: The validity of the calculated GFR & GFRAA in patients over 70 years has not been determined. Clinical correlation is essential. Serum or plasma ferritin ajit surement (mass/volume)Ordered By: Dr. Rosales on 07-04-2022 Ferritin [Mass/Vol] 41 ng/mL 8-252 [facility] Serum or plasma urea nitroge n measurement (mass/volume)Ordered By: Dr. Rosales on 07-04-2022 Urea nitrogen [Mass/Vol] 11 mg/dL 7-18 [facility] Thin prep Papanicolaou smear with manual screeningOrdered By: Dr. Rosales on 07-04-2022 Thin prep Papanicolaou smear with manual screening 16 U/L 15-37 [facility] Thin prep Papanicolaou smear with manual screening 10 5-15 [facility] Absolute lymphocyte counton 04-05-2022 Lymphocytes Auto (Unsp spec) [#/Vol] 1.28 10*3/uL 0.83-4.51 [facility] Work Phone: Basophil percentageon 2021 Basophil percentage < 0.9 mg/dL 0.55-1.02 [facility] Work Phone: Basophils/100 WBC (Bld) 0.6 % 0-1 [facility] Work Phone: Bilirubin [Mass/Vol] 0.40 mg/dL 0.20-1.00 [facility] Work Phone: Comment on above: For patients on eltr ombopag therapy, use of Dimension [place] TBIL is not recommended. Chloride [Moles/Vol] 99 mmol/L 98-107 [facility] Work Phone: Eosinophils/100 WBC (Bld) 1.0 % 0-5 [facility] Work Phone: [phone] Glucose [Mass/Vol] 245 mg/dL 74-106 [facility] Work Phone: Comment on above: Glucose result great er than or equal to 200 mg/dLsuggests DIABETES MELLITUS per A.D.A. criteria. Neutrophils (Bld) [#/Vol] 6.5 10*3/uL 2.0-7.7 [facility] Work Phone: Neutrophils/100 WBC (Bld) 75.8 % 47-70 [facility] Work Phone: Potassium [Moles/Vol] 3.4 mmol/L 3.5-5.1 [facility] Work Phone: Protein [Mass/Vol] 7.4 g/dL 6.4-8.2 [facility] Work Phone: [phone] Sodium [Moles/Vol] 137 mmol/L 136-145 [facility] Work Phone: WBC (Bld) [#/Vol] 8.6 10*3/uL 4.4-11.0 [facility] Work Phone: Blood erythrocytes count (nu mber/volume)on 04-05-2022 RBC (Bld) [#/Vol] 5.18 10*6/uL 4.2-5.4 [facility] Work Phone: Blood hemoglobin measurement (mass/volume)on 04-05-2022 Hemoglobin (Bld) [Mass/Vol] 13.1 g/dL 12.0-15.0 [facility] Work Phone: Blood lymphocytes/100 leukoc yteson 04-05-2022 Lymphocytes/100 WBC (Bld) 14.8 % 19-41 [facility] Work Phone: Blood monocytes/100 leukocyt eson 04-05-2022 Monocytes/100 WBC (Bld) 7.5 % 0-10 [facility] Work Phone: Blood platelet mean volumeon 04-05-2022 Platelet mean volume (Bld) [Entitic vol] 9.6 fL 6.2-12.0 [facility] Work Phone: Determination of erythrocyte mean corpuscular volume (MCV)on 04-05-2022 MCV (RBC) [Entitic vol] 84.2 fL 81-99 [facility] Work Phone: Hematocrit Auto (Bld) [Volum e fraction]on 04-05-2022 Hematocrit (Bld) [Volume fraction] 43.6 % 37-47 [facility] Work Phone: Laboratory - Chemistry and C hemistry - challengeon 04-05-2022 ALP [Catalytic activity/Vol] 144 U/L 45-117 [facility] Work Phone: ALT [Catalytic activity/Vol] 17 U/L 13-56 [facility] Work Phone: CO2 [Moles/Vol] 29.0 mmol/L 21.0-32.0 [facility] Work Phone: Globulin (S) [Mass/Vol] 4.2 g/dL 2.2-4.2 [facility] Work Phone: Urea nitrogen/Creatinine [Mass ratio] 11.2 mg/mg 10-20 [facility] Work Phone: Laboratory - Hematology and Cell countson 04-05-2022 Erythrocyte distribution width (RBC) [Entitic vol] 56.0 fL 35.1-43.9 [facility] Work Phone: Erythrocyte distribution width (RBC) [Ratio] 18.3 % 11.6-14.6 [facility] Work Phone: Immature granulocytes/100 WBC (Bld) 0.300 % 0.0-0.9 [facility] Work Phone: Comment on above: IG% - Immature Granu locytes (promyelocytes, myelocytes and metamyelocytes) > 1% indicates that a LEFT SHIFT is Present. MCH (RBC) [Entitic mass] 25.3 pg 27.0-32.0 [facility] Work Phone: Nucleated RBC/100 WBC (Bld) [Ratio] 0 % 0-5 [facility] Work Phone: MCHC Auto (RBC) [Mass/Vol]on 04-05-2022 MCHC (RBC) [Mass/Vol] 30.0 g/dL 32-36 [facility] Work Phone: No Panel Informationon 04-05 Bedside Estimated GFR (eGFR) > 60.0000 mL/min >60 [facility] Work Phone: Estimated GFR (MDRD) Amer 59 mL/min >60 [facility] Work Phone: Comment on above: GFR Calc Estimated GFR (MDRD) Non-Af Amer 49 mL/min >60 [facility] Work Phone: Comment on above: Non- GFR Calc Platelets bldon 04-05-2022 Platelets (Bld) [#/Vol] 290 10*3/uL 150-450 [facility] Work Phone: Serum or plasma albumin bessie urement (mass/volume)on 04-05-2022 Albumin [Mass/Vol] 3.2 g/dL 3.2-5.0 [facility] Work Phone: Serum or plasma albumin/glob ulin mass ratioon 04-05-2022 Albumin/Globulin [Mass ratio] 0.8 {ratio} 0.9-2.4 [facility] Work Phone: Serum or plasma calcium bessie urement (mass/volume)on 04-05-2022 Calcium [Mass/Vol] 9.3 mg/dL 8.5-10.1 [facility] Work Phone: Serum or plasma carcinoembry onic antigen measurement (mass/volume)on 04-05-2022 Carcinoembryonic Ag [Mass/Vol] 3.6 ng/mL 0.0-4.7 [facility] Work Phone: Comment on above: Nonsmokers <3.9 [place] ers <5.6[employer] Electrochemiluminescence Immunoassay(ECLIA)Values obtained with different assay methods or kitscannot be used interchangeably. Results cannot beinterpreted as absolute evidence of the presence orabsence of malignant disease.Performed at: [facility] [employer] [id number] Director: Taiwo Quintero PhD, Phone: [phone] Serum or plasma creatinine m easurement (mass/volume)on 04-05-2022 Creatinine [Mass/Vol] 1.16 mg/dL 0.55-1.02 [facility] Work Phone: Comment on above: The validity of the calculated GFR & GFRAA in patients over 70 years has not been determined. Clinical correlation is essential. Serum or plasma urea nitroge n measurement (mass/volume)on 04-05-2022 Urea nitrogen [Mass/Vol] 13 mg/dL 7-18 [facility] Work Phone: Thin prep Papanicolaou smear with manual screeningon 04-05-2022 Thin prep Papanicolaou smear with manual screening 13 U/L 15-37 [facility] Work Phone: Thin prep Papanicolaou smear with manual screening 9 5-15 [facility] Work Phone: Thin prep Papanicolaou smear with manual screening 199 U/L 84-246 [facility] Work Phone: Absolute lymphocyte counton 02-19-2022 Lymphocytes Auto (Unsp spec) [#/Vol] 1.46 10*3/uL 0.83-4.51 [facility] Work Phone: [phone] Basophil percentageon 2021 Basophils/100 WBC (Bld) 0.4 % 0-1 [facility] Work Phone: [phone] Bilirubin [Mass/Vol] 0.70 mg/dL 0.20-1.00 [facility] Work Phone: Comment on above: For patients on eltr ombopag therapy, use of Dimension [place] TBIL is not recommended. Chloride [Moles/Vol] 99 mmol/L 98-107 [facility] Work Phone: Eosinophils/100 WBC (Bld) 1.3 % 0-5 [facility] Work Phone: Glucose [Mass/Vol] 169 mg/dL 74-106 [facility] Work Phone: Comment on above: Fasting Glucose resu lt greater than or equal to 126 mg/dL suggests DIABETES MELLITUS per A.D.A. criteria. Neutrophils (Bld) [#/Vol] 5.9 10*3/uL 2.0-7.7 [facility] Work Phone: Neutrophils/100 WBC (Bld) 72.1 % 47-70 [facility] Work Phone: Potassium [Moles/Vol] 3.1 mmol/L 3.5-5.1 [facility] Work Phone: Protein [Mass/Vol] 7.2 g/dL 6.4-8.2 [facility] Work Phone: [phone] Sodium [Moles/Vol] 137 mmol/L 136-145 [facility] Work Phone: WBC (Bld) [#/Vol] 8.2 10*3/uL 4.4-11.0 [facility] Work Phone: Blood erythrocytes count (nu mber/volume)on 02-19-2022 RBC (Bld) [#/Vol] 4.38 10*6/uL 4.2-5.4 [facility] Work Phone: Blood hemoglobin measurement (mass/volume)on 02-19-2022 Hemoglobin (Bld) [Mass/Vol] 10.6 g/dL 12.0-15.0 [facility] Work Phone: Blood lymphocytes/100 leukoc yteson 02-19-2022 Lymphocytes/100 WBC (Bld) 17.8 % 19-41 [facility] Work Phone: Blood manual differential co mment interpretation (narrative result)on 02-19-2022 Manual differential comment Herminio (Bld) [Interp] SCANNED [facility] Work Phone: Blood monocytes/100 leukocyt eson 02-19-2022 Monocytes/100 WBC (Bld) 7.9 % 0-10 [facility] Work Phone: Blood platelet mean volumeon 02-19-2022 Platelet mean volume (Bld) [Entitic vol] 10.1 fL 6.2-12.0 [facility] Work Phone: Determination of erythrocyte mean corpuscular volume (MCV)on 02-19-2022 MCV (RBC) [Entitic vol] 82.9 fL 81-99 [facility] Work Phone: Hematocrit Auto (Bld) [Volum e fraction]on 02-19-2022 Hematocrit (Bld) [Volume fraction] 36.3 % 37-47 [facility] Work Phone: Laboratory - Chemistry and C hemistry - challengeon 02-19-2022 ALP [Catalytic activity/Vol] 126 U/L 45-117 [facility] Work Phone: ALT [Catalytic activity/Vol] 13 U/L 13-56 [facility] Work Phone: CO2 [Moles/Vol] 31.0 mmol/L 21.0-32.0 [facility] Work Phone: Globulin (S) [Mass/Vol] 4.0 g/dL 2.2-4.2 [facility] Work Phone: Magnesium [Mass/Vol] 1.4 mg/dL 1.6-2.6 [facility] Work Phone: Urea nitrogen/Creatinine [Mass ratio] 12.4 mg/mg 10-20 [facility] Work Phone: Laboratory - Hematology and Cell countson 02-19-2022 Anisocytosis Ql (Bld) 2+ [facility] Work Phone: Erythrocyte distribution width (RBC) [Entitic vol] 60.8 fL 35.1-43.9 [facility] Work Phone: Erythrocyte distribution width (RBC) [Ratio] 20.8 % 11.6-14.6 [facility] Work Phone: Immature granulocytes/100 WBC (Bld) 0.500 % 0.0-0.9 [facility] Work Phone: Comment on above: IG% - Immature Granu locytes (promyelocytes, myelocytes and metamyelocytes) > 1% indicates that a LEFT SHIFT is Present. MCH (RBC) [Entitic mass] 24.2 pg 27.0-32.0 [facility] Work Phone: Nucleated RBC/100 WBC (Bld) [Ratio] 0 % 0-5 [facility] Work Phone: MCHC Auto (RBC) [Mass/Vol]on 02-19-2022 MCHC (RBC) [Mass/Vol] 29.2 g/dL 32-36 [facility] Work Phone: No Panel Informationon 02-19 Estimated GFR (MDRD) Amer 61 mL/min >60 [facility] Work Phone: Comment on above: GFR Calc Estimated GFR (MDRD) Non-Af Amer 51 mL/min >60 [facility] Work Phone: Comment on above: Non- GFR Calc Platelets bldon 02-19-2022 Platelets (Bld) [#/Vol] 304 10*3/uL 150-450 [facility] Work Phone: Serum or plasma albumin bessie urement (mass/volume)on 02-19-2022 Albumin [Mass/Vol] 3.2 g/dL 3.2-5.0 [facility] Work Phone: Serum or plasma albumin/glob ulin mass ratioon 02-19-2022 Albumin/Globulin [Mass ratio] 0.8 {ratio} 0.9-2.4 [facility] Work Phone: Serum or plasma calcium bessie urement (mass/volume)on 02-19-2022 Calcium [Mass/Vol] 9.1 mg/dL 8.5-10.1 [facility] Work Phone: Serum or plasma creatinine m easurement (mass/volume)on 02-19-2022 Creatinine [Mass/Vol] 1.13 mg/dL 0.55-1.02 [facility] Work Phone: Comment on above: The validity of the calculated GFR & GFRAA in patients over 70 years has not been determined. Clinical correlation is essential. Serum or plasma ferritin ajit surement (mass/volume)on 02-19-2022 Ferritin [Mass/Vol] 29 ng/mL 8-252 [facility] Work Phone: Serum or plasma urea nitroge n measurement (mass/volume)on 02-19-2022 Urea nitrogen [Mass/Vol] 14 mg/dL 7-18 [facility] Work Phone: Thin prep Papanicolaou smear with manual screeningon 02-19-2022 Thin prep Papanicolaou smear with manual screening 11 U/L 15-37 [facility] Work Phone: Thin prep Papanicolaou smear with manual screening 7 5-15 [facility] Work Phone: Whole blood hemoglobin A1c/t otal hemoglobin ratio (mass fraction)on 02-19-2022 HbA1c (Bld) [Mass fraction] 7.3 % 3.8-5.6 [facility] Work Phone: Comment on above: Normal < 5.7 % Predi abetic 5.7 - 6.4 % Diabetic >or= 6.5 % Please note range changes. Absolute lymphocyte counton 12-20-2021 Lymphocytes Auto (Unsp spec) [#/Vol] 1.52 10*3/uL 0.83-4.51 [facility] Work Phone: Basophil percentageon 2021 Basophils/100 WBC (Bld) 0.5 % 0-1 [facility] Work Phone: Eosinophils/100 WBC (Bld) 1.7 % 0-5 [facility] Work Phone: Neutrophils (Bld) [#/Vol] 6.4 10*3/uL 2.0-7.7 [facility] Work Phone: Neutrophils/100 WBC (Bld) 72.3 % 47-70 [facility] Work Phone: WBC (Bld) [#/Vol] 8.8 10*3/uL 4.4-11.0 [facility] Work Phone: Bilirubin [Mass/Vol] 0.40 mg/dL 0.20-1.00 [facility] Work Phone: Comment on above: For patients on eltr ombopag therapy, use of Dimension [place] TBIL is not recommended. Chloride [Moles/Vol] 99 mmol/L 98-107 [facility] Work Phone: Glucose [Mass/Vol] 190 mg/dL 74-106 [facility] Work Phone: Comment on above: Fasting Glucose resu lt greater than or equal to 126 mg/dL suggests DIABETES MELLITUS per A.D.A. criteria. Potassium [Moles/Vol] 3.4 mmol/L 3.5-5.1 [facility] Work Phone: Protein [Mass/Vol] 7.4 g/dL 6.4-8.2 [facility] Work Phone: Sodium [Moles/Vol] 136 mmol/L 136-145 [facility] Work Phone: Blood erythrocytes count (nu mber/volume)on 12-20-2021 RBC (Bld) [#/Vol] 4.40 10*6/uL 4.2-5.4 [facility]: Blood hemoglobin measurement (mass/volume)on 12-20-2021 Hemoglobin (Bld) [Mass/Vol] 10.5 g/dL 12.0-15.0 [facility] Work Phone: [phone] Blood lymphocytes/100 leukoc yteson 12-20-2021 Lymphocytes/100 WBC (Bld) 17.2 % 19-41 [facility] Work Phone: Blood monocytes/100 leukocyt eson 12-20-2021 Monocytes/100 WBC (Bld) 7.8 % 0-10 [facility] Work Phone: Blood platelet mean volumeon 12-20-2021 Platelet mean volume (Bld) [Entitic vol] 9.7 fL 6.2-12.0 [facility] Work Phone: Determination of erythrocyte mean corpuscular volume (MCV)on 12-20-2021 MCV (RBC) [Entitic vol] 81.4 fL 81-99 [facility] Work Phone: Hematocrit Auto (Bld) [Volum e fraction]on 12-20-2021 Hematocrit (Bld) [Volume fraction] 35.8 % 37-47 [facility] Work Phone: Laboratory - Chemistry and C hemistry - challengeon 12-20-2021 ALP [Catalytic activity/Vol] 112 U/L 45-117 [facility] Work Phone: ALT [Catalytic activity/Vol] 14 U/L 13-56 [facility] Work Phone: CO2 [Moles/Vol] 31.0 mmol/L 21.0-32.0 [facility] Work Phone: Free T4 [Mass/Vol] 1.84 ng/dL 0.76-1.46 [facility] Work Phone: Globulin (S) [Mass/Vol] 4.3 g/dL 2.2-4.2 [facility] Work Phone: Magnesium [Mass/Vol] 1.8 mg/dL 1.6-2.6 [facility] Work [facility]: Urea nitrogen/Creatinine [Mass ratio] 11.5 mg/mg 10-20 [facility] Work Phone: Laboratory - Hematology and Cell countson 12-20-2021 Erythrocyte distribution width (RBC) [Entitic vol] 49.4 fL 35.1-43.9 [facility] Work Phone: Erythrocyte distribution width (RBC) [Ratio] 16.6 % 11.6-14.6 [facility] Work Phone: Immature granulocytes/100 WBC (Bld) 0.500 % 0.0-0.9 [facility] Work Phone: Comment on above: IG% - Immature Granu locytes (promyelocytes, myelocytes and metamyelocytes) > 1% indicates that a LEFT SHIFT is Present. MCH (RBC) [Entitic mass] 23.9 pg 27.0-32.0 [facility] Work Phone: Nucleated RBC/100 WBC (Bld) [Ratio] 0 % 0-5 [facility] Work Phone: MCHC Auto (RBC) [Mass/Vol]on 12-20-2021 MCHC (RBC) [Mass/Vol] 29.3 g/dL 32-36 [facility]: No Panel Informationon 12-20 Estimated GFR (MDRD) Amer 83 mL/min >60 [facility] Work Phone: Comment on above: GFR Calc Estimated GFR (MDRD) Non-Af Amer 69 mL/min >60 [facility] Work Phone: Comment on above: Non- GFR Calc Free Triiodothyronine (T3) pg/dL 2.2 pg/mL 2.18-3.98 [facility] Work Phone: Thyroid Stimulating Hormone (TSH) 2.18 uIU/mL 0.358-3.74 [facility] Work Phone: Platelets bldon 12-20-2021 Platelets (Bld) [#/Vol] 325 10*3/uL 150-450 [facility] Work Phone: Serum or plasma albumin bessie urement (mass/volume)on 12-20-2021 Albumin [Mass/Vol] 3.1 g/dL 3.2-5.0 [facility] Work Phone: Serum or plasma albumin/glob ulin mass ratioon 12-20-2021 Albumin/Globulin [Mass ratio] 0.7 {ratio} 0.9-2.4 [facility] Work Phone: Serum or plasma calcium bessie urement (mass/volume)on 12-20-2021 Calcium [Mass/Vol] 8.8 mg/dL 8.5-10.1 [facility] Work Phone: Serum or plasma creatinine m easurement (mass/volume)on 12-20-2021 Creatinine [Mass/Vol] 0.87 mg/dL 0.55-1.02 [facility] Work Phone: Comment on above: The validity of the calculated GFR & GFRAA in patients over 70 years has not been determined. Clinical correlation is essential. Serum or plasma urea nitroge n measurement (mass/volume)on 12-20-2021 Urea nitrogen [Mass/Vol] 10 mg/dL 7-18 [facility] Work Phone: Thin prep Papanicolaou smear with manual screeningon 12-20-2021 Thin prep Papanicolaou smear with manual screening 14 U/L 15-37 [facility] Work Phone: Thin prep Papanicolaou smear with manual screening 6 5-15 [facility] Work Phone: Basophil percentageon 2021 Bilirubin [Mass/Vol] 0.30 mg/dL 0.20-1.00 [facility] Work Phone: Comment on above: For patients on eltr ombopag therapy, use of Dimension [place] TBIL is not recommended. Chloride [Moles/Vol] 101 mmol/L 98-107 [facility] Work Phone: Glucose [Mass/Vol] 133 mg/dL 74-106 [facility] Work Phone: Comment on above: Fasting Glucose resu lt greater than or equal to 126 mg/dL suggests DIABETES MELLITUS per A.D.A. criteria. Potassium [Moles/Vol] 3.4 mmol/L 3.5-5.1 [facility] Work Phone: Protein [Mass/Vol] 7.4 g/dL 6.4-8.2 [facility] Work Phone: Sodium [Moles/Vol] 138 mmol/L 136-145 [facility] Work Phone: WBC (Bld) [#/Vol] 7.3 10*3/uL 4.4-11.0 [facility] Work Phone: Blood erythrocytes count (nu mber/volume)on 09-14-2021 RBC (Bld) [#/Vol] 4.61 10*6/uL 4.2-5.4 [facility] Work Phone: Blood hemoglobin measurement (mass/volume)on 09-14-2021 Hemoglobin (Bld) [Mass/Vol] 10.7 g/dL 12.0-15.0 [facility] Work Phone: Blood platelet mean volumeon 09-14-2021 Platelet mean volume (Bld) [Entitic vol] 10.4 fL 6.2-12.0 [facility] Work Phone: Determination of erythrocyte mean corpuscular volume (MCV)on 09-14-2021 MCV (RBC) [Entitic vol] 79.6 fL 81-99 [facility] Work Phone: Hematocrit Auto (Bld) [Volum e fraction]on 09-14-2021 Hematocrit (Bld) [Volume fraction] 36.7 % 37-47 [facility] Work Phone: Laboratory - Chemistry and C hemistry - challengeon 09-14-2021 ALP [Catalytic activity/Vol] 94 U/L 45-117 [facility] Work Phone: ALT [Catalytic activity/Vol] 21 U/L 13-56 [facility] Work Phone: CO2 [Moles/Vol] 30.0 mmol/L 21.0-32.0 [facility] Work Phone: Free T4 [Mass/Vol] 1.55 ng/dL 0.76-1.[address] [facility] Work Phone: Globulin (S) [Mass/Vol] 4.3 g/dL 2.2-4.2 [facility] Work Phone: Magnesium [Mass/Vol] 2.0 mg/dL [facility] Work Phone: Comment on above: Performed at: [address] [id number] Director: Taiwo Quintero PhD, Phone: [phone] Urea nitrogen/Creatinine [Mass ratio] 12.5 mg/mg 10-20 [facility] Work Phone: Laboratory - Hematology and Cell countson 09-14-2021 Erythrocyte distribution width (RBC) [Entitic vol] 59.3 fL 35.1-43.9 [facility] Work Phone: Erythrocyte distribution width (RBC) [Ratio] 20.6 % 11.6-14.6 [facility] Work Phone: MCH (RBC) [Entitic mass] 23.2 pg 27.0-32.0 [facility] Work Phone: MCHC Auto (RBC) [Mass/Vol]on 09-14-2021 MCHC (RBC) [Mass/Vol] 29.2 g/dL 32-36 [facility] Work Phone: No Panel Informationon 09-14 Estimated GFR (MDRD) Amer 74 mL/min >60 [facility] Work Phone: Comment on above: GFR Calc Estimated GFR (MDRD) Non-Af Amer 61 mL/min >60 [facility] Work Phone: Comment on above: Non- GFR Calc Free Triiodothyronine (T3) pg/dL 2.7 pg/mL 2.18-3.98 [facility] Work Phone: Thyroid Stimulating Hormone (TSH) 5.20 uIU/mL 0.358-3.74 [facility] Work Phone: Platelets bldon 09-14-2021 Platelets (Bld) [#/Vol] 362 10*3/uL 150-450 [facility] Work Phone: Serum or plasma albumin bessie urement (mass/volume)on 09-14-2021 Albumin [Mass/Vol] 3.1 g/dL 3.2-5.0 [facility] Work Phone: Serum or plasma albumin/glob ulin mass ratioon 09-14-2021 Albumin/Globulin [Mass ratio] 0.7 {ratio} 0.9-2.4 [facility] Work Phone: Serum or plasma calcium bessie urement (mass/volume)on 09-14-2021 Calcium [Mass/Vol] 9.3 mg/dL 8.5-10.1 [facility] Work Phone: Serum or plasma carcinoembry onic antigen measurement (mass/volume)on 09-14-2021 Carcinoembryonic Ag [Mass/Vol] 3.9 ng/mL [facility] Work Phone: Comment on above: Nonsmokers <3.9 Smok ers <5.6[employer] Electrochemiluminescence Immunoassay(ECLIA)Values obtained with different assay methods or kitscannot be used interchangeably. Results cannot beinterpreted as absolute evidence of the presence orabsence of malignant disease.Performed at: [employer] [id number] Director: Taiwo Quintero PhD, Phone: [phone] Serum or plasma creatinine m easurement (mass/volume)on 09-14-2021 Creatinine [Mass/Vol] 0.96 mg/dL 0.55-1.02 [facility] Work Phone: Comment on above: The validity of the calculated GFR & GFRAA in patients over 70 years has not been determined. Clinical correlation is essential. Serum or plasma urea nitroge n measurement (mass/volume)on 09-14-2021 Urea nitrogen [Mass/Vol] 12 mg/dL 7-18 [facility] Work Phone: Thin prep Papanicolaou smear with manual screeningon 09-14-2021 Thin prep Papanicolaou smear with manual screening 19 U/L 15-37 [facility] Work Phone: Thin prep Papanicolaou smear with manual screening 7 5-15 [facility] Work Phone: INR in Blood by Coagulation assayon 09-04-2021 INR Coag (Bld) [Relative time] 1.9 {INR} [facility] Work Phone: Laboratory - Coagulationon 0 09-04-2021 PT Coag (PPP) [Time] 20.8 s 11.7-14.9 [facility] Work Phone: CNOVon 04-06-2021 CNOV Office Visit ([facility] ) ----- ELIZABETH HENLEY ([id number]) 1950 F Date Time Provider Department 04/06/21 11:00 AM JEFFREY ROBLES [facility] During your visit today, we recorded the following information about you: Temperature Pulse Respiration Blood pressure 96.9 degrees 90/minute 18/minute 110/68 Weight 121.6 kg Jeffrey Robles APRN.[employer] 04/06/2021 1:08 PM Signed Subjective HPI Nontoxic-appearing female presents urgent care chief complaint left foot pain. Duration of symptoms 5 days. Associated symptoms left foot/ankle pain. States history of foot pain but usually on the right side. States this is a little more intense. Denies any known injury. Denies any numbness no tingling. No decreased sensation. Concerned about gout. No history of gout. No increased swelling redness past baseline. Denies any fevers, nausea, vomiting, abdominal pain, chest pain, shortness of breath, headache, dizziness change in bowel or bladder habits. Past medical history prescription medication use allergies reviewed. .Patient presents with: Pain (foot): left denies injury x 5 days PAST MEDICAL HISTORY Diagnosis Date - Atrial fibrillation (HCC) - Bilateral ankle pain - CHF (congestive heart failure) (HCC) - Chronic airway obstruction (HCC) - CVA (cerebral vascular accident) (HCC) - Depression - Hypertension - Obesity - PAD (peripheral artery disease) (HCC) PAST SURGICAL HISTORY Procedure Laterality Date - APPENDECTOMY 1973 - CHOLECYSTECTOMY 1973 - HYSTERECTOMY 1973 ALLERGIES Codeine MEDICATIONS warfarin (COUMADIN) 5 mg tablet Take 5 mg by mouth daily as directed. Take as directed fluticasone (FLONASE ALLERGY RELIEF) 50 mcg/actuation nasal spray Use 1 [place] in each nostril once daily. mometasone-formoterol (DULERA) 200-5 mcg/actuation inhaler Inhale 2 Puffs as instructed twice daily. Levothyroxine 75 mcg cap Take 75 mcg by mouth once daily. indapamide (LOZOL) 2.5 mg tablet Take 2.5 mg by mouth once daily. albuterol HFA (PROVENTIL HFA, VENTOLIN HFA) 90 mcg/actuation inhaler Inhale 2 Puffs as instructed every 4 hours as needed. sacubitril-valsartan (ENTRESTO) 24-26 mg tablet Take 1 tablet by mouth twice daily. atorvastatin (LIPITOR) 40 mg tablet Take 40 mg by mouth once daily. FAMILY HISTORY Problem Relation Age of Onset - Colon Cancer Mother - Cancer Father - Heart disease Father - Stroke Father Social History Tobacco Use - Smoking status: Former Smoker Quit date: 2014 Years since quittin.6 - Smokeless tobacco: Never Used Substance Use Topics - Alcohol use: Not Currently - Drug use: Never BP 110/68 Pulse 90 Temp 36.1 ?C (96.9 ?F) Resp 18 Wt 121.6 kg (268 lb) SpO2 97% Review of Systems Constitutional: Negative for chills, fever and malaise/fatigue. HENT: Negative for congestion, ear discharge, ear pain, sinus pain and sore throat. Eyes: Negative for blurred vision. Respiratory: Negative for cough, sputum production, shortness of breath and wheezing. Cardiovascular: Negative for chest pain. Gastrointestinal: Negative for abdominal pain, diarrhea, nausea and vomiting. Musculoskeletal: Positive for joint pain. Negative for falls and myalgias. Skin: Negative for itching and rash. Neurological: Negative for dizziness and headaches. Objective Physical Exam Constitutional: General: She is not in acute distress. Appearance: She is not diaphoretic. HENT: Head: Normocephalic. Nose: Nose normal. Mouth/Throat: Mouth: Mucous membranes are moist. Pharynx: Oropharynx is clear. No oropharyngeal exudate or posterior oropharyngeal erythema. Eyes: Conjunctiva/sclera: Conjunctivae normal. Pupils: Pupils are equal, round, and reactive to light. Cardiovascular: Rate and Rhythm: Normal rate and regular rhythm. Heart sounds: Normal heart sounds. Pulmonary: Effort: Pulmonary effort is normal. No tachypnea, accessory muscle usage or respiratory distress. Breath sounds: Normal breath sounds. Abdominal: Palpations: Abdomen is soft. Tenderness: There is no abdominal tenderness. Musculoskeletal: Cervical back: Normal range of motion and neck supple. No rigidity or tenderness. Left lower le+ Edema present. Left ankle: Swelling present. No ecchymosis. Tenderness present over the medial malleolus. Normal pulse. Left Achilles Tendon: No tenderness. Left foot: Normal range of motion and normal capillary refill. Swelling and tenderness present. No bony tenderness. Normal pulse. Comments: Lateral edema noted lower feet. Slight erythema noted bilaterally. Discoloration of skin bilateral lower legs. Neurovascular intact. Lymphadenopathy: Cervical: No cervical adenopathy. Skin: General: Skin is warm and dry. Neurological: Mental Status: She is alert and oriented to person, place, and time. ASSESSMENT/PLAN: 1. Foot pain, left - ICD (more content not included)... Normal [facility] No Panel Informationon 04-06 Radiology Study observation (narrative) [facility] XR ANKLE 3V AP/LAT/OBL LTon 04-06-2021 XR ANKLE 3V AP/LAT/OBL LT * * *Final Report* * * DATE OF EXAM: Apr 06 2021 12:08PM WOX [id number] - XR ANKLE 3V AP/LAT/OBL LT / PROCEDURE REASON: Foot pain, left * * * * Physician Interpretation * * * * EXAMINATION: XR ANKLE 3V AP/LAT/OBL LT HISTORY: Anterior left ankle pain and dorsal left forefoot pain after stepping down out of bed x 4 days ago. Foot pain, left. TECHNIQUE: XR ANKLE 3V AP/LAT/OBL LT Laterality: LEFT Number of different views (projections): 3 M: XB_1 COMPARISON: There are no prior relevant examinations available for comparison within the [facility]. RESULT: AP, lateral and oblique radiographs of the left ankle demonstrate bimalleolar soft tissue swelling. Underlying bony structures are intact without evidence of fracture or dislocation. Ankle mortise and syndesmosis are preserved. AP and oblique views demonstrate subchondral lucency within the talar dome along the lateral margin without osteochondral defect. Normal variant partially fused talus secundarius noted on the AP and oblique views. Lateral view demonstrates large calcaneal spurs at the Achilles tendon and plantar fascial insertions. IMPRESSION: Mild bimalleolar soft tissue swelling. Subchondral lucency within the talar dome along the lateral margin without osteochondral loose body. Findings could represent an area of osteochondritis dissecans. MRI may be helpful. Bolt Maker: P[facility] Transcribe Date/Time: Apr 06 2021 12:09P Dictated by : PETEY POWERS MD This examination was interpreted and the report reviewed and electronically signed by: PETEY POWERS MD on Apr 06 2021 12:19PM EST [id number] Normal [facility] XR Ankle - left AP and Later al and obliqueon 04-06-2021 IMPRESSION: Mild bimalleolar soft tissue swelling. Subchondral lucency within the talar dome along the lateral margin without osteochondral loose body. Findings could represent an area of osteochondritis dissecans. MRI may be helpful. Bolt Maker: MORIS Transcribe Date/Time: Apr 06 2021 12:09P Dictated by : PETEY POWERS MD This examination was interpreted and the report reviewed and electronically signed by: PETEY POWERS MD on Apr 06 2021 12:19PM [facility] DIVISION OF RADIOLOGY * * *Final Report* * * DATE OF EXAM: Apr 06 2021 12:08PM WOX 5298 - XR ANKLE 3V AP/LAT/OBL LT / PROCEDURE REASON: Foot pain, left * * * * Physician Interpretation * * * * EXAMINATION: XR ANKLE 3V AP/LAT/OBL LT HISTORY: Anterior left ankle pain and dorsal left forefoot pain after stepping down out of bed x 4 days ago. Foot pain, left. TECHNIQUE: XR ANKLE 3V AP/LAT/OBL LT Laterality: LEFT Number of different views (projections): 3 M: XB_1 COMPARISON: There are no prior relevant examinations available for comparison within the [facility]. RESULT: AP, lateral and oblique radiographs of the left ankle demonstrate bimalleolar soft tissue swelling. Underlying bony structures are intact without evidence of fracture or dislocation. Ankle mortise and syndesmosis are preserved. AP and oblique views demonstrate subchondral lucency within the talar dome along the lateral margin without osteochondral defect. Normal variant partially fused talus secundarius noted on the AP and oblique views. Lateral view demonstrates large calcaneal spurs at the Achilles tendon and plantar fascial insertions. DIVISION OF RADIOLOGY [facility] * * *Final Report* * * DATE OF EXAM: Apr 06 2021 12:08PM WOX 5298 - XR ANKLE 3V AP/LAT/OBL LT / PROCEDURE REASON: Foot pain, left * * * * Physician Interpretation * * * * EXAMINATION: XR ANKLE 3V AP/LAT/OBL LT HISTORY: Anterior left ankle pain and dorsal left forefoot pain after stepping down out of bed x 4 days ago. Foot pain, left. TECHNIQUE: XR ANKLE 3V AP/LAT/OBL LT Laterality: LEFT Number of different views (projections): 3 M: XB_1 COMPARISON: There are no prior relevant examinations available for comparison within the [facility]. RESULT: AP, lateral and oblique radiographs of the left ankle demonstrate bimalleolar soft tissue swelling. Underlying bony structures are intact without evidence of fracture or dislocation. Ankle mortise and syndesmosis are preserved. AP and oblique views demonstrate subchondral lucency within the talar dome along the lateral margin without osteochondral defect. Normal variant partially fused talus secundarius noted on the AP and oblique views. Lateral view demonstrates large calcaneal spurs at the Achilles tendon and plantar fascial insertions. IMPRESSION IMPRESSION: Mild bimalleolar soft tissue swelling. Subchondral lucency within the talar dome along the lateral margin without osteochondral loose body. Findings could represent an area of osteochondritis dissecans. MRI may be helpful. Bolt Maker: [facility] Transcribe Date/Time: Apr 06 2021 12:09P Dictated by : PETEY POWERS MD This examination was interpreted and the report reviewed and electronically signed by: PETEY POWERS MD on Apr 06 2021 12:19PM [facility] XR FOOT 3V AP/LAT/OBL LTon 0 04-06-2021 XR FOOT 3V AP/LAT/OBL LT * * *Final Repo rt* * * DATE OF EXAM: Apr 06 2021 12:08PM WOX [id number] - XR FOOT 3V AP/LAT/OBL LT / PROCEDURE REASON: Foot pain, left * * * * Physician Interpretation * * * * EXAMINATION: XR FOOT 3V AP/LAT/OBL LT HISTORY: Anterior left ankle pain and dorsal left forefoot pain after stepping down out of bed x 4 days ago. Foot pain, left. TECHNIQUE: XR FOOT 3V AP/LAT/OBL LT Laterality: LEFT Number of different views (projections): 3 M: XB_1 COMPARISON: There are no prior relevant examinations available for comparison within the [facility]. RESULT: AP, lateral and oblique radiographs of the left foot demonstrate mild forefoot soft tissue swelling. Mild degenerative change of the IP joints noted. Joint spaces are preserved and there are no erosive changes. No acute bony process. IMPRESSION: Mild forefoot soft tissue swelling. No acute bony process. Bolt Maker: MORIS Transcribe Date/Time: Apr 06 2021 12:19P Dictated by : PETEY POWERS MD This examination was interpreted and the report reviewed and electronically signed by: PETEY POWERS MD on Apr 06 2021 12:20PM EST [id number] Normal [facility] XR FOOT MINIMUM 3 VIEWS LEFT on 04-06-2021 XR FOOT MINIMUM 3 VIEWS LEFT ORIGINAL EXAMINATION: THREE XRAY VIEWS OF THE LEFT FOOT 04/06/2021 4:30 pm COMPARISON: None. HISTORY: ORDERING SYSTEM PROVIDED HISTORY: Reason for Exam: Pain on top of the foot between the 4th-5th digits after stepping out of bed FINDINGS: The bony mineralization is decreased. There is remodeled deformities of the 3rd and 2nd proximal phalanges. The joint spaces are maintained. There is no acute fracture or dislocation. There is a small plantar calcaneal and medium-sized posterior calcaneal spurs. Heterotopic ossification adjacent to the cuboid is noted. Mild generalized soft tissue swelling is present. An exostosis is seen projecting off the distal fibula on the oblique image. IMPRESSION: Generalized soft tissue swelling. No acute findings I have personally reviewed the images of this examination and agree with the resident's findings and interpretation. Interpreted by: Angel Jimenez Preliminary Report By: Timoteo Chen Electronically signed By Angel Jimenez Dictated Date: 04/06/2021 4:57:04 PM Prelim Date: 04/06/2021 5:01:23 PM Sign Date: 04/06/2021 5:05:18 PM Ordering Provider: [facility] XR Foot - left AP and Latera l and obliqueon 04-06-2021 IMPRESSION: Mild forefoot soft tissue swelling. No acute bony process. Bolt Maker: MORIS Transcribe Date/Time: Apr 06 2021 12:19P Dictated by : PETEY POWERS MD This examination was interpreted and the report reviewed and electronically signed by: PETEY POWERS MD on Apr 06 2021 12:20PM EST DIVISION OF RADIOLOGY * * *Final Report* * * DATE OF EXAM: Apr 06 2021 12:08PM WOX 5336 - XR FOOT 3V AP/LAT/OBL LT / PROCEDURE REASON: Foot pain, left * * * * Physician Interpretation * * * * EXAMINATION: XR FOOT 3V AP/LAT/OBL LT HISTORY: Anterior left ankle pain and dorsal left forefoot pain after stepping down out of bed x 4 days ago. Foot pain, left. TECHNIQUE: XR FOOT 3V AP/LAT/OBL LT Laterality: LEFT Number of different views (projections): 3 M: XB_1 COMPARISON: There are no prior relevant examinations available for comparison within the [facility]. RESULT: AP, lateral and oblique radiographs of the left foot demonstrate mild forefoot soft tissue swelling. Mild degenerative change of the IP joints noted. Joint spaces are preserved and there are no erosive changes. No acute bony process. DIVISION OF RADIOLOGY Provider, [facility] - 04/06/2021 * * *Final Report* * * DATE OF EXAM: Apr 06 2021 12:08PM WOX [id number] - XR FOOT 3V AP/LAT/OBL LT / PROCEDURE REASON: Foot pain, left * * * * Physician Interpretation * * * * EXAMINATION: XR FOOT 3V AP/LAT/OBL LT HISTORY: Anterior left ankle pain and dorsal left forefoot pain after stepping down out of bed x 4 days ago. Foot pain, left. TECHNIQUE: XR FOOT 3V AP/LAT/OBL LT Laterality: LEFT Number of different views (projections): 3 M: XB_1 COMPARISON: There are no prior relevant examinations available for comparison within the [facility]. RESULT: AP, lateral and oblique radiographs of the left foot demonstrate mild forefoot soft tissue swelling. Mild degenerative change of the IP joints noted. Joint spaces are preserved and there are no erosive changes. No acute bony process. IMPRESSION IMPRESSION: Mild forefoot soft tissue swelling. No acute bony process. Bolt Maker: PSCB Transcribe Date/Time: Apr 06 2021 12:19P Dictated by : PETEY POWERS MD This examination was interpreted and the report reviewed and electronically signed by: PETEY POWERS MD on Apr 06 2021 12:20PM EST [facility] XR Foot - left AP and Latera l and obliqueOrdered By: [facility] Provider on 04-06-2021 [facility] Vital Signs Date Time Vital Sign Value Performing Clinician Facility 12-19-2024 13:27-0400 Body temperature 97.3 [degF] Dr. Alejandro Rosales MD Work Phone: [facility] 12-19-2024 13:27-0400 Diastolic blood pressure 47 mm[Hg] Dr. Alejandro Rosales MD Work Phone: 7(000)536-923444 [address] 12-19-2024 13:27-0400 Heart rate 75 /min Dr. Alejandro Rosales MD Work Phone: 9(538)441-510544 [address] 12-19-2024 13:27-0400 Respiratory rate 16 /min Dr. Alejandro Rosales MD Work Phone: 4(286)233-528344 [address] 12-19-2024 13:27-0400 SaO2% (BldA) [Mass fraction] 94 % Dr. Alejandro Rosales MD Work Phone: 1(621)572-630044 [address] 12-19-2024 13:27-0400 Systolic blood pressure 122 mm[Hg] Dr. Alejandro Rosales MD Work Phone: 8(623)961-238144 [address] 12-18-2024 15:04-0400 Body temperature 97.5 [degF] Dr. Alejandro Rosales MD Work Phone: 9(873)992-271444 [address] 12-18-2024 15:04-0400 Diastolic blood pressure 45 mm[Hg] Dr. Alejandro Rosales MD Work Phone: 8(694)292-784844 [address] 12-18-2024 15:04-0400 Heart rate 45 /min Dr. Alejandro Rosales MD Work Phone: [facility] 12-18-2024 15:04-0400 Respiratory rate 18 /min Dr. Alejandro Rosales MD Work Phone: [facility] 12-18-2024 15:04-0400 SaO2% (BldA) [Mass fraction] 95 % Dr. Alejandro Rosales MD Work Phone: [facility] 12-18-2024 15:04-0400 Systolic blood pressure 122 mm[Hg] Dr. Alejandro Rosales MD Work Phone: 2(094)486-145397 [place] [address] 12-17-2024 12:20-0400 Body height 170.[address] Alejandro Rosales MD Work Phone: 4(103)244-086911 [place] [address] 12-17-2024 12:20-0400 Body mass index (BMI) [Ratio] 31.4 kg/m2 Dr. Alejandro Rosales MD Work Phone: 6(416)175-365011 [place] [address] 12-17-2024 12:20-0400 Body weight 91.[address] Alejandro Rosales MD Work Phone: 6(535)935-871911 [place] [address] 12-17-2024 11:24-0400 Body temperature 98.6 [degF] Dr. Alejandro Rosales MD Work Phone: 0(898)363-750111 [place] [address] 12-17-2024 11:24-0400 Diastolic blood pressure 64 mm[Hg] Dr. Alejandro Rosales MD Work Phone: 0(558)703-043811 [place] [address] 12-17-2024 11:24-0400 Heart rate 76 /min Dr. Alejandro Rosales MD Work Phone: 6(538)057-452811 [place] [address] 12-17-2024 11:24-0400 Respiratory rate 14 /min Dr. Alejandro Rosales MD Work Phone: 4(385)973-725711 [place] [address] 12-17-2024 11:24-0400 SaO2% (BldA) [Mass fraction] 98 % Dr. Alejandro Rosales MD Work Phone: 9(348)181-051411 [place] [address] 12-17-2024 11:24-0400 Systolic blood pressure 134 mm[Hg] Dr. Alejandro Rosales MD Work Phone: 4(158)258-531411 [place] [address] 12-17-2024 08:15-0400 Body mass index (BMI) [Ratio] 33.2 kg/m2 Dr. Alejandro Rosales MD Work Phone: 1(073)679-604011 [place] [address] 12-17-2024 08:15-0400 Body weight 96.[address] Alejandro Rosales MD Work Phone: 5(652)892-427711 [place] [address] 12-09-2024 09:10-0400 Body height 170.[address] Alejandro Rosales MD Work Phone: [facility] 12-09-2024 09:10-0400 Body mass index (BMI) [Ratio] 32.8 kg/m2 Dr. Alejandro Rosales MD Work Phone: [facility] 12-09-2024 09:10-0400 Body temperature 98.1 [degF] Dr. Alejandro Rosales MD Work Phone: 9(632)397-656497 [place] [address] 12-09-2024 09:10-0400 Body weight 95.[address] Alejandro Rosales MD Work Phone: [facility] 12-09-2024 09:10-0400 Diastolic blood pressure 64 mm[Hg] Dr. Alejandro Rosales MD Work Phone: 7(855)301-392944 [address] 12-09-2024 09:10-0400 Heart rate 62 /min Dr. Alejandro Rosales MD Work Phone: 7(533)335-539111 [place] [address] 12-09-2024 09:10-0400 Respiratory rate 16 /min Dr. Alejandro Rosales MD Work Phone: [facility] 12-09-2024 09:10-0400 SaO2% (BldA) [Mass fraction] 93 % Dr. Alejandro Rosales MD Work Phone: [facility] 12-09-2024 09:10-0400 Systolic blood pressure 108 mm[Hg] Dr. Alejandro Rosales MD Work Phone: [facility] 12-07-2024 14:33-0400 Body mass index (BMI) [Ratio] 33.5 kg/m2 Dr. Alejandro Rosales MD Work Phone: [facility] 12-07-2024 14:33-0400 Body temperature 97.2 [degF] Dr. Alejandro Rosales MD Work Phone: [facility] 12-07-2024 14:33-0400 Body weight 97.[address] Alejandro Rosales MD Work Phone: [facility] 12-07-2024 14:33-0400 Diastolic blood pressure 79 mm[Hg] Dr. Alejandro Rosales MD Work Phone: 4(913)769-449397 [place] [address] 12-07-2024 14:33-0400 Heart rate 85 /min Dr. Alejandro Rosales MD Work Phone: 4(791)556-177297 [place] [address] 12-07-2024 14:33-0400 Respiratory rate 18 /min Dr. Alejandro Rosales MD Work Phone: 8(698)902-696811 [place] [address] 12-07-2024 14:33-0400 SaO2% (BldA) [Mass fraction] 97 % Dr. Alejandro Rosales MD Work Phone: 3(218)099-794611 [place] [address] 12-07-2024 14:33-0400 Systolic blood pressure 168 mm[Hg] Dr. Alejandro Rosales MD Work Phone: 2(629)157-551911 [place] [address] 12-07-2024 09:02-0400 Body mass index (BMI) [Ratio] 33.3 kg/m2 Dr. Alejandro Rosales MD Work Phone: 9(981)920-410811 [place] [address] 12-07-2024 09:02-0400 Body temperature 97.7 [degF] Dr. Alejandro Rosales MD Work Phone: 9(233)983-243011 [place] [address] 12-07-2024 09:02-0400 Body weight 96.[address] Alejandro Rosales MD Work Phone: 8(576)229-696811 [place] [address] 12-07-2024 09:02-0400 Diastolic blood pressure 60 mm[Hg] Dr. Alejandro Rosales MD Work Phone: 2(104)559-605011 [place] [address] 12-07-2024 09:02-0400 Heart rate 74 /min Dr. Alejandro Rosales MD Work Phone: 5(015)358-003611 [place] [address] 12-07-2024 09:02-0400 Respiratory rate 16 /min Dr. Aleajndro Rosales MD Work Phone: 4(108)127-186111 [place] [address] 12-07-2024 09:02-0400 SaO2% (BldA) [Mass fraction] 91 % Dr. Alejandro Rosales MD Work Phone: 7(429)723-978211 [place] [address] 12-07-2024 09:02-0400 Systolic blood pressure 97 mm[Hg] Dr. Alejandro Rosales MD Work Phone: 0(601)071-450211 [place] [address] 11-26-2024 20:28-0400 Body temperature 98 [degF] Dr. Alejandro Rosales MD Work Phone: 2(033)265-109711 [place] [address] 11-26-2024 20:28-0400 Diastolic blood pressure 59 mm[Hg] Dr. Alejandro Rosales MD Work Phone: 6(353)764-669811 [place] [address] 11-26-2024 20:28-0400 Heart rate 52 /min Dr. Alejandro Rosales MD Work Phone: 2(236)491-542211 [place] [address] 11-26-2024 20:28-0400 Respiratory rate 18 /min Dr. Alejandro Rosales MD Work Phone: 3(317)664-223011 [place] [address] 11-26-2024 20:28-0400 SaO2% (BldA) [Mass fraction] 98 % Dr. Alejandro Rosales MD Work Phone: 2(617)082-797311 [place] [address] 11-26-2024 20:28-0400 Systolic blood pressure 132 mm[Hg] Dr. Alejandro Rosales MD Work Phone: 2(956)543-073811 [place] [address] 11-26-2024 05:08-0400 Body mass index (BMI) [Ratio] 33.6 kg/m2 Dr. Alejandro Rosales MD Work Phone: 7(059)877-778611 [place] [address] 11-26-2024 05:08-0400 Body weight 97.[address] Alejandro Rosales MD Work Phone: 9(535)898-712511 [place] [address] 11-25-2024 21:42-0400 Inhaled oxygen concentration 21 % Dr. Alejandro Rosales MD Work Phone: 5(171)937-401711 [place] [address] 11-25-2024 21:42-0400 Inhaled oxygen flow rate 0 L/min Dr. Alejandro Rosales MD Work Phone: 0(800)343-998511 [place] [address] 11-11-2024 11:04-0400 Diastolic blood pressure 74 mm[Hg] Audelia Wood MD Work Phone: [facility] 11-11-2024 11:04-0400 Heart rate 66 /min Audelia Wood MD Work Phone: [facility] 11-11-2024 11:04-0400 Respiratory rate 20 /min Audelia Wood MD Work Phone: 6(830)139-777491 [place] [address] 11-11-2024 11:04-0400 SaO2% (BldA) [Mass fraction] 93 % Audelia Wood MD Work Phone: 5(097)699-783091 [place] [address] 11-11-2024 11:04-0400 Systolic blood pressure 114 mm[Hg] Audelia Wood MD Work Phone: 7(664)288-216991 [place] [address] 11-11-2024 11:01-0400 Body temperature 97.5 [degF] Audelia Wood MD Work Phone: 6(425)611-265691 [place] [address] 11-09-2024 09:29-0400 Body height 170.2 cm Audelia Wood MD Work Phone: 8(223)661-918891 [place] [address] 11-09-2024 09:29-0400 Body mass index (BMI) [Ratio] 34.46 kg/m2 Audelia Wood MD Work Phone: 5(536)925-753791 [place] [address] 11-09-2024 09:29-0400 Body weight 99.8 kg Audelia Wood MD Work Phone: 0(638)667-700391 [place] [address] 11-08-2024 17:00-0400 Body temperature 98.1 [degF] Dr. Alejandro Rosales MD Work Phone: [facility] 11-08-2024 17:00-0400 Diastolic blood pressure 58 mm[Hg] Dr. Alejandro Rosales MD Work Phone: [facility] 11-08-2024 17:00-0400 Heart rate 58 /min Dr. Alejandro Rosales MD Work Phone: [facility] 11-08-2024 17:00-0400 Respiratory rate 19 /min Dr. Alejandro Rosales MD Work Phone: [facility] 11-08-2024 17:00-0400 SaO2% (BldA) [Mass fraction] 97 % Dr. Alejandro Rosales MD Work Phone: [facility] 11-08-2024 17:00-0400 Systolic blood pressure 147 mm[Hg] Dr. Alejandro Rosales MD Work Phone: [facility] 11-08-2024 16:30-0400 Inhaled oxygen flow rate 2 L/min Dr. Alejandro Rosales MD Work Phone: 0(168)693-810297 [place] [address] 11-08-2024 16:13-0400 Body height 162.[address] Alejandro Rosales MD Work Phone: 1(400)259-155044 [address] 11-08-2024 16:13-0400 Body mass index (BMI) [Ratio] 38.9 kg/m2 Dr. Alejandro Rosales MD Work Phone: 7(419)625-404197 [place] [address] 11-08-2024 16:13-0400 Body weight 102.[address] Alejandro Rosales MD Work Phone: 4(801)194-890797 [place] [address] 09-30-2024 15:15-0500 Body temperature 97.7 [degF] Dr. Alejandro Rosales MD Work Phone: 8(471)339-758597 [place] [address] 09-30-2024 15:15-0500 Diastolic blood pressure 64 mm[Hg] Dr. Alejandro Rosales MD Work Phone: 2(831)944-385197 [place] [address] 09-30-2024 15:15-0500 Heart rate 57 /min Dr. Alejandro Rosales MD Work Phone: 1(923)942-909797 [place] [address] 09-30-2024 15:15-0500 Respiratory rate 18 /min Dr. Alejandro Rosales MD Work Phone: [facility] 09-30-2024 15:15-0500 SaO2% (BldA) [Mass fraction] 92 % Dr. Alejandro Rosales MD Work Phone: [facility] 09-30-2024 15:15-0500 Systolic blood pressure 152 mm[Hg] Dr. Alejandro Rosales MD Work Phone: [facility] 01-06-2023 14:29-0400 Body height 162.[address] Alejandro Rosales Work Phone: [facility] 01-06-2023 14:29-0400 Body mass index (BMI) [Ratio] 38.1 kg/m2 Dr. Alejandro Rosales Work Phone: [facility] 01-06-2023 14:29-0400 Body temperature 96.7 [degF] Dr. Alejandro Rosales Work Phone: [facility] 01-06-2023 14:29-0400 Body weight 100.[address] Alejandro Rosales Work Phone: [facility] 01-06-2023 14:29-0400 Diastolic blood pressure 62 mm[Hg] Dr. Alejandro Rosales Work Phone: [facility] 01-06-2023 14:29-0400 Heart rate 80 /min Dr. Alejandro Rosales Work Phone: [facility] 01-06-2023 14:29-0400 Respiratory rate 17 /min Dr. Alejandro Rosales Work Phone: [facility] 01-06-2023 14:29-0400 SaO2% (BldA) [Mass fraction] 97 % Dr. Alejandro Rosales Work Phone: [facility] 01-06-2023 14:29-0400 Systolic blood pressure 131 mm[Hg] Dr. Alejandro Rosales Work Phone: [facility] 01-02-2023 14:53-0400 Body height 162.[address] Alejandro Rosales Work Phone: [facility] 01-02-2023 14:53-0400 Body mass index (BMI) [Ratio] 38.5 kg/m2 Dr. Alejandro Rosales Work Phone: [facility] 01-02-2023 14:53-0400 Body temperature 97.7 [degF] Dr. Alejandro Rosalse Work Phone: [facility] 01-02-2023 14:53-0400 Body weight 101.[address] Alejandro Rosales Work Phone: [facility] 01-02-2023 14:53-0400 Diastolic blood pressure 70 mm[Hg] Dr. Alejandro Rosales Work Phone: [facility] 01-02-2023 14:53-0400 Heart rate 67 /min Dr. Alejandro Rosales Work Phone: [facility] 01-02-2023 14:53-0400 Respiratory rate 16 /min Dr. Alejandro Rosales Work Phone: [facility] 01-02-2023 14:53-0400 SaO2% (BldA) [Mass fraction] 93 % Dr. Alejandro Rosales Work Phone: [facility] 01-02-2023 14:53-0400 Systolic blood pressure 120 mm[Hg] Dr. Alejandro Rosales Work Phone: [facility] 12-17-2022 15:57-0400 Body mass index (BMI) [Ratio] 38.7 kg/m2 Dr. Alejandro Rosales Work Phone: [facility] 12-17-2022 15:57-0400 Body temperature 97.3 [degF] Dr. Alejandro Rosales Work Phone: [facility] 12-17-2022 15:57-0400 Body weight 102.[address] Alejandro Rosales Work Phone: [facility] 12-17-2022 15:57-0400 Diastolic blood pressure 76 mm[Hg] Dr. Alejandro Rosales Work Phone: [facility] 12-17-2022 15:57-0400 Heart rate 62 /min Dr. Alejandro Rosales Work Phone: [facility] 12-17-2022 15:57-0400 Respiratory rate 16 /min Dr. Alejandro Rosales Work Phone: [facility] 12-17-2022 15:57-0400 SaO2% (BldA) [Mass fraction] 92 % Dr. Alejandro Rosales Work Phone: [facility] 12-17-2022 15:57-0400 Systolic blood pressure 137 mm[Hg] Dr. Alejandro Rosales Work Phone: [facility] 11-25-2022 16:02-0400 Body height 162.[address] Alejandro Rosales Work Phone: [facility] 11-25-2022 16:02-0400 Body mass index (BMI) [Ratio] 38.9 kg/m2 Dr. Alejandro Rosales Work Phone: [facility] 11-25-2022 16:02-0400 Body temperature 98.1 [degF] Dr. Alejandro Rosales Work Phone: [facility] 11-25-2022 16:02-0400 Body weight 103.[address] Alejandro Rosales Work Phone: [facility] 11-25-2022 16:02-0400 Diastolic blood pressure 76 mm[Hg] Dr. Alejandro Rosales Work Phone: [facility] 11-25-2022 16:02-0400 Heart rate 77 /min Dr. Alejandro Rosales Work Phone: [facility] 11-25-2022 16:02-0400 Respiratory rate 16 /min Dr. Alejandro Rosales Work Phone: [facility] 11-25-2022 16:02-0400 SaO2% (BldA) [Mass fraction] 91 % Dr. Alejandro Rosales Work Phone: [facility] 11-25-2022 16:02-0400 Systolic blood pressure 146 mm[Hg] Dr. Alejandro Rosales Work Phone: [facility] 10-28-2022 16:03-0400 Body mass index (BMI) [Ratio] 40 kg/m2 Dr. Alejandro Rosales Work Phone: [facility] 10-28-2022 16:03-0400 Body temperature 98.6 [degF] Dr. Alejandro Rosales Work Phone: [facility] 10-28-2022 16:03-0400 Body weight 105.[address] Alejandro Rosales Work Phone: [facility] 10-28-2022 16:03-0400 Heart rate 86 /min Dr. Alejandro Rosales Work Phone: [facility] 10-28-2022 16:03-0400 Respiratory rate 18 /min Dr. Alejandro Rosales Work Phone: [facility] 10-28-2022 16:03-0400 SaO2% (BldA) [Mass fraction] 96 % Dr. Alejandro Rosales Work Phone: [facility] 10-16-2022 14:58-0400 Body temperature 96.6 [degF] Dr. Alejandro Rosales Work Phone: [facility] 10-16-2022 14:58-0400 Diastolic blood pressure 68 mm[Hg] Dr. Alejandro Rosales Work Phone: [facility] 10-16-2022 14:58-0400 Heart rate 67 /min Dr. Alejandro Rosales Work Phone: [facility] 10-16-2022 14:58-0400 Respiratory rate 17 /min Dr. Alejandro Rosales Work Phone: [facility] 10-16-2022 14:58-0400 SaO2% (BldA) [Mass fraction] 95 % Dr. Alejandro Rosales Work Phone: [facility] 10-16-2022 14:58-0400 Systolic blood pressure 127 mm[Hg] Dr. Alejandro Rosales Work Phone: [facility] 04-15-2022 15:38-0400 Body height 162.[address] Alejandro Rosales Work Phone: [facility] Work Phone: 04-15-2022 15:25-0400 Body mass index (BMI) [Ratio] 40.7 kg/m2 Dr. Alejandro Rosales Work Phone: [facility] Work Phone: 04-15-2022 15:25-0400 Body temperature 98 [degF] Dr. Alejandro Rosales Work Phone: [facility] Work Phone: 04-15-2022 15:25-0400 Body weight 107.[address] Alejandro Rosales Work Phone: [facility] Work Phone: 04-15-2022 15:25-0400 Diastolic blood pressure 73 mm[Hg] Dr. Alejandro Rosales Work Phone: [facility] Work Phone: 04-15-2022 15:25-0400 Heart rate 83 /min Dr. Alejandro Rosales Work Phone: [facility] Work Phone: 04-15-2022 15:25-0400 Respiratory rate 83 /min Dr. Alejandro Rosales Work Phone: [facility] Work Phone: 04-15-2022 15:25-0400 SaO2% (BldA) [Mass fraction] 94 % Dr. Alejandro Rosales Work Phone: [facility] Work Phone: 04-15-2022 15:25-0400 Systolic blood pressure 124 mm[Hg] Dr. Alejandro Rosales Work Phone: [facility] Work Phone: 09-05-2021 14:18-0500 Body height 162.[address] Alejandro Rosales Work Phone: [facility] Work Phone: 09-05-2021 14:18-0500 Body mass index (BMI) [Ratio] 41.5 kg/m2 Dr. Alejandro Rosales Work Phone: [facility] Work Phone: 09-05-2021 14:18-0500 Body temperature 97.2 [degF] Dr. Alejandro Rosales Work Phone: [facility] Work Phone: 09-05-2021 14:18-0500 Body weight 109.[address] Alejandro Rosales Work Phone: [facility] Work Phone: 09-05-2021 14:18-0500 Diastolic blood pressure 73 mm[Hg] Dr. Alejandro Rosales Work Phone: [facility] Work Phone: 09-05-2021 14:18-0500 Heart rate 82 /min Dr. Alejandro Rosales Work Phone: [facility] Work Phone: 09-05-2021 14:18-0500 Respiratory rate 15 /min Dr. Alejandro Rosales Work Phone: [facility] Work Phone: 09-05-2021 14:18-0500 SaO2% (BldA) [Mass fraction] 92 % Dr. Alejandro Rosales Work Phone: [facility] Work Phone: 09-05-2021 14:18-0500 Systolic blood pressure 137 mm[Hg] Dr. Alejandro Rosales Work Phone: [facility] Work Phone: Encounters Encounter Date Encounter Type Care Provider Facility Start: 02-01-2025 ambulatory Alejandro Rosales Facility:[facility] Start: 01-20-2025 ambulatory Alejandro Rosales Facility:[facility] Start: 01-19-2025 ambulatory Alejandro Rosales Facility:[facility] Start: 01-14-2025 ambulatory Allison Janny Facility:[facility] Start: 12-24-2024 End: 12-24-2024 ambulatory Alejandro Rosales Facility:[facility] Start: 12-23-2024 End: 12-23-2024 ambulatory Alejandro Rosales Facility:[facility] Start: 12-23-2024 ambulatory Alejandro Rosales Facility:[facility] Start: 12-19-2024 Non-patient / Non-visit Dr. Shayla Castro MD -[facility] Work Phone: Start: 12-19-2024 Non-patient / Non-visit Dr. Kevan antunez MD -[facility] Start: 12-18-2024 Non-patient / Non-visit Dr. Shayla Castro MD -[facility] Work Phone: Start: 12-18-2024 Non-patient / Non-visit Dr. Kevan antunez MD -[facility] Start: 12-17-2024 ambulatory Alejandro Rosales Facility:[facility] Start: 12-17-2024 End: 12-19-2024 Evaluation and management of inpatient Dr. Shayal Castro MD -[facility] Work Phone: Start: 12-15-[address] Ada Soliman DO -Speech Therapy Work Phone: Start: 12-15-2024 End: 12-15-[address] Alejandro Rosales MD Work Phone: [facility] Work Phone: Start: 12-15-2024 End: 12-15-[address] Jamey Harrington MD -Cardiovascular Services Work Phone: Start: 12-15-2024 End: 12-15-2024 ambulatory Jamey Harrington Facility:[facility] Start: 12-09-2024 End: 12-09-[address] Marc Robbins MD -[facility] Work Phone: Start: 12-09-2024 End: 12-09-2024 ambulatory Marc Robbins Facility:[facility] Start: 12-07-2024 End: 12-07-[address] Michelle Paige MD -[facility] Work Phone: Start: 12-07-2024 End: 12-07-2024 Patient encounter procedure Latoya LUCERO -[facility] Work Phone: Start: 12-07-2024 End: 12-07-2024 ambulatory Michelle Paige Facility:[facility] Start: 11-26-2024 End: 11-26-[address] Ada Soliman DO -Sleep Lab Work Phone: Start: 11-26-2024 Non-patient / Non-[facility] Work Phone: Start: 11-26-2024 End: 11-26-2024 ambulatory Ada Soliman Facility:[facility] Start: 11-23-2024 Non-patient / Non-visit [facility] Work Phone: Start: 11-22-2024 Non-patient / Non-visit [facility] Work Phone: Start: 11-19-2024 Non-patient / Non-visit [facility] Work Phone: Start: 11-17-2024 Non-patient / Non-visit [facility] Work Phone: Start: 11-15-2024 Non-patient / Non-visit [facility] Work Phone: Start: 11-11-2024 ambulatory [facility] Facility:[facility] Start: 11-11-2024 End: 11-26-2024 Evaluation and management of inpatient [facility] Work [facility]: Start: 11-08-2024 End: 11-08-2024 ambulatory [facility] Facility:[facility] Start: 11-08-2024 End: 11-11-2024 Evaluation and management of inpatient Audelia Wood MD Work Phone: [id number] Comment on above: Stroke Start: 11-08-2024 End: 11-08-2024 Emergency department patient visit Dr. Alejandro Rosales MD Work Phone: -Emergency Department Work Phone: Start: 10-02-2024 ambulatory Alejandro Rosales Facility:[facility] Start: 09-30-2024 End: 09-30-2024 Patient encounter procedure Dr. Kevan Jama MD -[facility] Work Phone: Start: 09-30-2024 End: 09-30-2024 ambulatory Alejandro Rosales Facility:[facility] Start: 09-22-2024 End: 09-22-[address] Alejandro Rosales MD -Outpatient Breast Imaging Work Phone: Start: 09-21-2024 End: 10-01-[address] Alejandro Rosales MD -Laboratory, [facility] Work Phone: Start: 09-21-2024 End: 09-21-[address] Kevan Jama MD -[facility] Work Phone: Start: 09-21-2024 End: 10-01-2024 ambulatory Alejandro Rosales Facility:[facility] Start: 09-17-2024 End: 09-17-[address] Alejandro Rosales MD -Laboratory, [place] Work Phone: Start: 09-17-2024 End: 09-17-2024 ambulatory Alejandro Rosales Facility:[facility] Start: 09-14-2024 End: 09-14-[address] Alejandro Rosales MD -Laboratory, [place] Work Phone: Start: 09-13-2024 End: 09-14-2024 ambulatory Alejandro Rosales Facility:[facility] Start: 04-19-2024 End: 04-19-2024 ambulatory Alejandro Rosales Facility:[facility] Start: 01-06-2023 End: 01-06-[address] Alejandro Rosales Work Phone: [facility] Work Phone: Start: 01-02-2023 End: 01-02-[address] Alejandro Rosales Work Phone: [facility] [facility] Start: 12-31-2022 End: 12-31-[address] Alejandro Rosales Work Phone: [facility] Work Phone: Start: 12-31-2022 End: 12-31-[address] Alejandro Rosales Work Phone: [facility]-Cat Scan, [facility] Start: 12-25-2022 End: 12-25-[address] Alejandro Rosales Work Phone: [facility] Work Phone: Start: 12-25-2022 End: 12-25-[address] Alejandro Rosales Work Phone[facility] Start: 12-17-[address] Alejandro Rosales Work Phone: [facility] Start: 12-17-2022 End: 12-17-[address] Alejandro Rosales Work Phone: [facility] Start: 12-04-2022 End: 12-04-[address] Alejandro Rosales Work Phone: [facility] Start: 11-25-2022 End: 11-25-[address] Alejandro Rosales Work Phone: [facility] Start: 11-20-2022 End: 11-20-[address] Alejandro Rosales Work Phone: [facility] Work Phone: Start: 11-20-2022 End: 11-20-[address] Alejandro Rosales Work Phone: [facility] Start: 10-28-2022 End: 10-28-[address] Alejandro Rosales Work Phone: [facility] Start: 10-16-[address] Alejandro Rosales Work Phone: [facility] Start: 10-16-2022 End: 10-16-[address] Alejandro Rosales Work Phone: [facility] Start: 10-07-2022 End: 10-07-2022 ambulatory [facility] Work Phone: Start: 10-07-2022 End: 10-07-2022 Patient encounter procedure [facility] Start: 07-04-2022 End: 07-04-[address] Alejandro Rosales Work Phone: [facility] Work Phone: Start: 07-04-2022 End: 07-04-[address] Alejandro Rosales Work Phone: [facility] Start: 06-28-2022 End: 06-28-[address] Alejandro Rosales Work Phone: [facility] Work Phone: Start: 06-28-2022 End: 06-28-[address] Alejandro Rosales Work Phone: [facility]-Cardi[facility] Services Start: 04-15-2022 End: 04-15-[address] Alejandro Rosales Work Phone: [facility] Start: 04-05-2022 End: 04-05-2022 ambulatory [facility] Work Phone: Start: 04-05-2022 End: 04-05-2022 Patient encounter procedure [facility] Start: 02-19-2022 End: 02-19-2022 Patient encounter procedure [facility] Start: 12-20-2021 End: 12-20-[address] Alejandro Rosales Work Phone: [facility] Start: 09-14-2021 End: 09-14-[address] Alejandro Rosales Work Phone: [facility] Start: 09-14-2021 End: 09-14-[address] Alejandro Rosales Work Phone: [facility] Start: 09-05-2021 End: 09-05-[address] Alejandro Rosales Work Phone: [facility] Start: 09-04-2021 End: 09-04-[address] Alejandro Rosales Work Phone: [facility] Start: 08-31-2021 End: 08-31-[address] Alejandro Rosales Work Phone: [facility] Start: 08-15-[address] Alejandro Rosales Work Phone: [facility] Start: 04-06-2021 End: 04-06-2021 Subsequent hospital visit by physician [facility] Work Phone: Radiology Comment on above: Foot pain, left [[id number] .[id number]] Procedures Date Procedure Procedure Detail Performing Clinician Start: 12-19-[address] Alejandro Rosales MD Work Phone: Start: 12-18-[address] Alejandro Rosales MD Work Phone: Start: 12-17-[address] Alejandro Rosales MD Work Phone: Start: 12-17-2024 Plain x-ray of wrist Dr Tessa Rosales MD Work Phone: Start: 11-23-[address] Alejandro Rosales MD Work Phone: Start: 11-23-2024 Serum inorganic phos phate measurement Dr. Alejandro Rosales MD Work Phone: Start: 11-11-2024 CARDIAC RHYTHM Other Ot her OT Start: 11-11-2024 Glucose measurement, blood Sameera Perez DO Work Phone: Start: 11-11-2024 Glucose measurement, blood Sameera T Gusler DO Work Phone: Start: 11-11-2024 Assay of magnesium Ming Gonzalez MD Work Phone: Start: 11-10-2024 Glucose measurement, blood Sameera T Gusler DO Work Phone: Start: 11-10-2024 Glucose measurement, blood Sameera T Gusler DO Work Phone: Start: 11-10-2024 Glucose measurement, blood Sameera T Gusler DO Work Phone: Start: 11-10-2024 Glucose measurement, blood Sameera T Gusler DO Work Phone: Start: 11-10-2024 Assay of magnesium Ming Gonzalez MD Work Phone: Start: 11-09-2024 Glucose measurement, blood Sameera T Gusler DO Work Phone: Start: 11-09-2024 Glucose measurement, blood Sameera T Gusler DO Work Phone: Start: 11-09-2024 Glucose measurement, blood Sameera T Gusler DO Work Phone: Start: 11-09-2024 Echo tthrc r-t 2d w/ wom-mode compl spec&colr d Anh Gonzalez MD Work Phone: Start: 11-09-2024 Glucose measurement, blood Sameera T Gusler DO Work Phone: Start: 11-09-2024 Assay of magnesium Ming Gonzalez MD Work Phone: Start: 11-09-2024 Mri brain brain stem w/o contrast material Anh Gonzalez MD Work Phone: Start: 11-08-2024 Glucose measurement, blood Sameera T Gusler DO Work Phone: Start: 11-08-2024 Drug tst prsmv instr mnt chem analyzers pr date Pam Forrest MD Work Phone: Start: 11-08-2024 EXTRA MICRO Pam Forrest MD Work Phone: Start: 11-08-2024 URINALYSIS REFLEX TO CULTURE Pam Forrest MD Work Phone: Start: 11-08-2024 Urnls dip stick/tabl et reagent auto microscopy Pam Forrest MD Work Phone: Start: 11-08-2024 Creatinine blood Lemuel Forrest MD Work Phone: Start: 11-08-2024 Hepatic function panel Pam Forrest MD Work Phone: Start: 11-08-2024 Ct angiography head w/contrast/noncontrast Anh Gonzalez MD Work Phone: Start: 11-08-2024 Cerebral perfusion a nalys ct w/blood flow&volume Pam Forrest MD Work Phone: Start: 11-08-2024 CBC AND ELECTRONIC DIFF Pam Forrest MD Work Phone: Start: 11-08-2024 Complete blood count with white cell differential, automated Pam Forrest MD Work Phone: Start: 11-08-2024 GOLD TOP TUBE Pam Forrest MD Work Phone: Start: 11-08-2024 Hemoglobin glycosylated a1c Anh Gonzalez MD Work Phone: Start: 11-08-2024 Hepatic function panel Anh Gonzalez MD Work Phone: Start: 11-08-2024 LAVENDER TOP TUBE Colin Forrest MD Work Phone: Start: 11-08-2024 LT BLUE TOP TUBE Lemuel Forrest MD Work Phone: Start: 11-08-2024 MINT GREEN TOP TUBE Precious Forrest MD Work Phone: Start: 11-08-2024 RAINBOW DRAW Pam Forrest MD Work Phone: Start: 11-08-2024 Ct head/brain w/o co ntrast material Pam Forrest MD Work Phone: Start: 11-08-2024 Glucose measurement, blood Audelia Wood MD Work Phone: Start: 11-08-2024 CT angiography of he ad and neck Dr. Alejandro Rosales MD Work Phone: Start: 11-08-2024 CT of head without contrast Dr. Alejandro Rosales MD Work Phone: Start: 11-08-[address] Alejandro Rosales MD Work Phone: Start: 11-08-2024 Lipid 1996 panel - S giuliana or Plasma Audelia Wood MD Work Phone: Start: 09-22-2024 Screening mammography Cici Rosales MD Work Phone: Start: 09-14-2024 Plain X-ray of finger Cici Rosales MD Work Phone: Start: 09-14-[address] Kate Rosales MD Work Phone: Comment on above: Performed at: [place] [id number] Director: Taiwo Quintero PhD, Phone: [phone] Start: 09-14-2024 Electrophoresis: [id number] Dr. Alejandro Rosales MD Work Phone: Start: 09-14-2024 Electrophoresis: [id number] Dr. Alejandro Rosales MD Work Phone: Start: 09-14-2024 Electrophoresis: nik ma globulin Dr. Alejandro Rosales MD Work Phone: Start: 09-14-2024 Measurement of renal function Dr. Alejandro Rosales MD Work Phone: Comment on above: GFR Calc Start: 09-14-[address] Alejandro Rosales MD Work Phone: Start: 09-14-[address] Alejandro Rosales MD Work Phone: Start: 12-31-2022 CT of head without contrast Dr. Alejandro Rosales Work Phone: Start: 12-25-2022 Radionuclide whole b beto bone study Dr. Alejandro Rosales Work Phone: Start: 12-04-2022 MRI of brain with contrast Dr. Alejandro Rosales Work Phone: Start: 12-02-2022 PET study for locali zation of tumor Dr. Alejandro Rosales Work Phone: Start: 10-16-2022 Plain chest X-ray Dr. Philomena Rosales Work Phone: Start: 10-07-2022 Computed tomography of abdomen and pelvis with intravenous contrast Start: 04-05-2022 Computed tomography of abdomen and pelvis with intravenous contrast Start: 04-06-2021 Radex ankle complete minimum 3 views Jeffrey Robles APRN.CNP Work Phone: Plan of Treatment Date Care Activity Detail Author Start: 11-08-2029 Lipid panel LIPID SCREENING [facility] Start: 10-11-2025 Urine microalbumin profile DTa P,Tdap,Td Vaccine (2 - Td or Tdap) [facility] Start: 04-04-2025 Influenza vaccination INFLUENZ A VACCINE (Season Ended) [facility] Start: 12-19-2024 Patient discharge [facility] Start: 12-18-2024 [facility] Start: 12-18-2024 Inhalation therapy procedure [facility] Start: 12-17-2024 [facility] Start: 12-17-2024 Anaerobic Culture Anaerobic Culture [facility] Start: 12-17-2024 Body Fluid Culture Body Fluid Cultur e [facility] Start: 12-17-2024 Microscopic observat ion [Identifier] in Unspecified specimen by Gram stain [facility] Start: 12-17-2024 Following clinical p athway protocol [facility] Start: 12-17-2024 Assessment of risk o f venous thromboembolism [facility] Start: 12-17-2024 Care regimes management [facility] Start: 12-17-2024 Consultation [facility] Start: 12-17-2024 Insertion of cathete r into peripheral vein [facility] Start: 12-17-2024 Measuring intake and output [facility] Start: 12-17-2024 Notification of physician [facility] Start: 12-17-2024 Providing care accor ding to standard [facility] Start: 12-17-2024 Provision of activit y privileges [facility] Start: 12-17-2024 Referral to occupati onal therapist [facility] Start: 12-17-2024 Referral to service [facility] Start: 12-17-2024 End: 12-17-2024 [facility] Start: 12-17-2024 Verification routine [facility] Start: 12-17-2024 Admission procedure [facility] Start: 12-17-2024 End: 12-17-2024 Microbial culture, body fluid [facility] Start: 11-26-2024 Patient discharge [facility] Start: 11-22-2024 [facility] Start: 11-17-2024 End: 11-17-2024 [facility] Start: 11-16-2024 [facility] Start: 11-11-2024 Recommendation to co kelvin with treatment [facility] Start: 11-11-2024 Referral to service [facility] Start: 11-11-2024 Admission procedure [facility] Start: 11-11-2024 Measuring intake and output [facility] Start: 11-11-2024 Patient referral to dietitian [facility] Start: 11-11-2024 Referral to occupati onal therapist [facility] Start: 11-11-2024 Vital signs measurements [facility] Start: 11-11-2024 End: 11-11-2024 [facility] Start: 11-11-2024 Speech therapy assessment [facility] Start: 11-08-2024 Oxygen therapy [facility] Start: 11-08-2024 [facility] Start: 04-04-2024 COVID-19 VACCINE () COVID-19 VACCINE () [facility] Start: 04-04-2024 Covid-19 Vaccine ( season) Covid-19 Vaccine ( season) [facility] Start: 04-04-2024 Influenza vaccination Influenza Vacc ine (#1) [facility] Start: 08-04-2023 Advance Directive Discussion Advance Directive Discussion [facility] Start: 2017 Pneumococcal Vaccine : 65+ (2 of 2 - PPSV23 or PCV20) Pneumococcal Vaccine: 65+ (2 of 2 - PPSV23 or PCV20) [facility] Start: 2017 Screening for osteoporosis Bone Dens ity Screening [facility] Start: 12-09-2015 Shingrix Vaccine (2 of 3) Sunshine grix Vaccine (2 of 3) [facility] Start: 2012 RSV Vaccine (1 - 1-d ose 60+ series) RSV Vaccine (1 - 1-dose 60+ series) [facility] Start: 2012 RSV VACCINE (1 - Ris k 60-74 years 1-dose series) RSV VACCINE (1 - Risk 60-74 years 1-dose series) [facility] Start: 2002 Pneumococcal vaccination PNEUM OCOCCAL VACCINE SERIES (1 of 1 - PCV) [facility] Start: 2002 Zoster vaccine hzv l tom for subcutaneous use ZOSTER (SHINGLES) VACCINE (1 of 2) [facility] Start: 1997 Diabetes Screening Diabetes Screenin g [facility] Start: 1997 Lipid panel Lipid Screening [facility] Start: 1997 Screening for malign ant neoplasm of colon [facility] Start: 1992 Screening for malign ant neoplasm of breast [facility] Start: 1973 Screening for malign ant neoplasm of cervix CERVICAL CANCER SCREENING DISCUSSION [facility] Start: 1971 Third diphtheria, te tanus and acellular pertussis (DTaP) vaccination TDAP (ADULT) [facility] Start: 1970 Anxiety Screening Anxiety Screening [facility] Start: 1970 Depression Screening Depression Scre ening [facility] Start: 1970 Hepatitis C screening Hepatitis C Sc juan ramon [facility] Start: 1952 Hepatitis C screening HEPATITI S C VIRUS SCREENING [facility] Start: 1952 Screening for osteoporosis DEXA SCAN DISCUSSION [facility] Start: 1952 Tetanus vaccination TETANUS [facility] Start: 1952 Thyroid stimulating hormone measurement TSH [facility] Anion gap in Serum o r Plasma [facility] Anion gap in Serum o r Plasma [facility] Anion gap in Serum o r Plasma [facility] Bacteria identified in Body fluid by Culture [facility] Bacteria identified in Unspecified specimen by Anaerobe culture [facility] BUN/Creatinine ratio [facility] BUN/Creatinine ratio [facility] BUN/Creatinine ratio [facility] Calcium [Mass/volume ] in Serum or Plasma [facility] Calcium [Mass/volume ] in Serum or Plasma [facility] Calcium [Mass/volume ] in Serum or Plasma [facility] Carbon dioxide, tota l [Moles/volume] in Central venous blood [facility] Carbon dioxide, tota l [Moles/volume] in Central venous blood [facility] Carbon dioxide, tota l [Moles/volume] in Central venous blood [facility] Colonoscopy [facility] Creatinine [Mass/vol ume] in Serum or Plasma [facility] Creatinine [Mass/vol ume] in Serum or Plasma [facility] Creatinine [Mass/vol ume] in Serum or Plasma [facility] Erythrocyte mean corpuscular volume determination [facility] Erythrocyte mean corpuscular volume determination [facility] Erythrocyte mean corpuscular volume determination [facility] Glucose [Mass/volume ] in Serum or Plasma [facility] Glucose [Mass/volume ] in Serum or Plasma [facility] Glucose [Mass/volume ] in Serum or Plasma [facility] Hematocrit [Volume Fraction] of Blood [facility] Hematocrit [Volume Fraction] of Blood [facility] Hematocrit [Volume Fraction] of Blood [facility] Hemoglobin [Mass/vol ume] in Blood [facility] Hemoglobin [Mass/vol ume] in Blood [facility] Hemoglobin [Mass/vol ume] in Blood [facility] Leukocytes [#/volume ] in Blood [facility] Leukocytes [#/volume ] in Blood [facility] Leukocytes [#/volume ] in Blood [facility] Mean corpuscular hemoglobin concentration determination [facility] Mean corpuscular hemoglobin concentration determination [facility] Mean corpuscular hemoglobin concentration determination [facility] Mean corpuscular hemoglobin determination [facility] Mean corpuscular hemoglobin determination [facility] Mean corpuscular hemoglobin determination [facility] Measurement of renal function [facility] Measurement of renal function [facility] Measurement of renal function [facility] MR Brain WO and W co ntrast IV [facility] Neutrophil count [facility] Neutrophil count [facility] Neutrophil count [facility] Neutrophil percent differential count [facility] Neutrophil percent differential count [facility] Neutrophil percent differential count [facility] Patient Education [facility] Work Phone: Patient referral [facility] Work Phone: Platelets [#/volume] in Blood [facility] Platelets [#/volume] in Blood [facility] Platelets [#/volume] in Blood [facility] Potassium measurement [facility] Potassium measurement [facility] Potassium measurement [facility] PT Unspecified body region [facility] Red blood cell count [facility] Red blood cell count [facility] Red blood cell count [facility] Red cell distributio n width determination [facility] Red cell distributio n width determination [facility] Red cell distributio n width determination [facility] Serum chloride measurement [facility] Serum chloride measurement [facility] Serum chloride measurement [facility] Sodium measurement [facility] Sodium measurement [facility] Sodium measurement [facility] End: 11-08-2024 Standard ECG [facility] Comment on above: One Time for 1 Occur rences starting 11/08/2024 until 11/08/2024 Urea nitrogen [Mass/volume] in Serum or Plasma [facility] Urea nitrogen [Mass/volume] in Serum or Plasma [facility] Urea nitrogen [Mass/volume] in Serum or Plasma [facility] Vancomycin [Mass/vol ume] in Serum or Plasma --trough [facility] XR Hand GE 3 Views [facility] Immunizations Immunization Date Immunization Notes Care Provider Mayra medina 08-25-2023 Pfizer Covid-19 (Comirnaty) Dr. Alejandro Rosales MD Work Phone: [facility] 07-25-2022 Covid Pfizer Bivalen t Booster Dr. Alejandro Rosales MD Work Phone: [facility] 05-25-2021 Covid (Pfizer) Dr. Alejandro bishop MD Work Phone: [facility] 01-03-2021 Covid (Moderna) Dr. Alejandro santos MD Work Phone: [facility] 12-01-2020 Covid (Moderna) Dr. Alejandro santos MD Work Phone: [facility] 05-05-2020 influenza virus vaccine, unspecified formulation [employer] Work Phone: [facility] Payers Date Payer Category Payer Medicare (Managed Care) MEDICARE ANTHEM PPO [id number] 2024 Self-pay [id number] 2023 Medicare [id number] 2017 Medicare MEDICARE MEDICAR E A AND B [id number] 2017-Present [phone] [address] [address] [place] [address] Medicare [id number] 2000 Unknown [id number] 2000 Unknown [facility] [id number] 2000-Present [phone] [address] [address] [place] [address] Indemnity [id number] 1952 Unknown [id number] 2.16.840.1.743694.3.579. 2.732 1952 Unknown [id number] 2.840.1.572442.3.579. 2.594 Medicare [id number] Medicare MEDICARE PART A B [id number] Medicare MEDICARE PART A B [id number] Unknown [id number] 2.16840.1.428342.3.579. 2.462 Unknown [id number] 2.16.840.1.201682.3.579. 2.462 Unknown [id number] 2.16.840.1.036980.3.579. 2.462 Unknown [id number] 2.16840.1.676190.3.579. 2.462 Unknown [id number] 2.16840.1.081147.3.579. 2.462 Unknown [id number] 2.16.840.1.910069.3.579. 2.462 Unknown [id number] 2.16.840.1.798418.3.579. 2.462 Unknown [id number] 2.16.840.1.447487.3.579. 2.462 Unknown [id number] 2.16.840.1.194715.3.579. 2.462 Unknown [id number] 2.16.840.1.535879.3.579. 2.462 Unknown [id number] 2.16.840.1.855386.3.579. 2.462 Unknown [id number] 2.16.840.1.739521.3.579. 2.462 Unknown [id number] 2.16.840.1.703918.3.579. 2.462 Unknown [id number] 2.16.840.1.282319.3.579. 2.462 Unknown [id number] 2.16.840.1.439780.3.579. 2.462 Unknown [id number] 2.16840.1.934697.3.579. 2.462 Unknown [id number] 2.16.840.1.956739.3.579. 2.462 Unknown [id number] 2.840.1.701905.3.579. 2.462 Unknown [id number] 2.16840.1.468449.3.579. 2.462 Unknown [id number] 2.16840.1.401235.3.579. 2.462 Unknown [id number] 2.16840.1.089127.3.579. 2.462 Unknown [id number] 2.16840.1.943190.3.579. 2.462 Unknown [id number] 2.16840.1.584380.3.579. 2.462 Unknown [id number] 2.16840.1.191862.3.579. 2.462 Unknown [id number] 2.16.840.1.251047.3.579. 2.462 Unknown [id number] 2.16.840.1.627789.3.579. 2.462 Unknown [id number] 2.16.840.1.658917.3.579. 2.462 Unknown [id number] 2.16840.1.999671.3.579. 2.462 Unknown [id number] 2.16.840.1.572866.3.579. 2.462 Unknown [id number] 2.16.840.1.405394.3.579. 2.462 Unknown [id number] 2.16.840.1.363746.3.579. 2.462 Unknown [id number] 2.16.840.1.848877.3.579. 2.462 Unknown [id number] [id number] Unknown [id number] [id number] Unknown [id number] [id number] Unknown [id number] 2.462 Unknown [id number] 2.462 Social History Date Type Detail Facility Start: 08-15-2021 End: 02-13-[address] [facility] Unknown if ever smoked [facility] Start: 1950 Sex Assigned At Female [facility] Start: 01-12-2019 End: 12-17-2024 Tobacco smoking status NHIS Ex-smoker [facility] End: 08-04-2014 History of tobacco use Current smoker [facility] End: 08-04-2014 History of tobacco use Cigarette Smoker [facility] Start: 01-12-2019 Tobacco use and exposure Smokeless tobacco non-user [facility] Start: 04-06-2021 Alcoholic beverage intake Ex-drinker (finding) [facility] Start: 04-06-2021 End: 11-09-2024 History of Social function [facility] Start: 04-06-2021 End: 11-09-2024 Tobacco use panel [facility] National Score (1-100), lower number is lower risk Not on file [facility] Start: 1950 Sex assigned at Not on file [facility] Start: 03-07-2021 End: 04-06-2021 Exposure to SARS-CoV-2 (event) Not sure [facility] Start: 11-08-2024 End: 11-08-2024 Sex Female (finding) [facility] NEGATED: Highlighted row Not [facility] Medical Equipment Procedure Code Equipment Code Equipment Origin al Text Equipment Identifier Dates RELOAD, SR75 SELECTABLE FDA Start: 08-17-2021 RELOAD, SR75 SELECTABLE FDA Start: 08-17-2021 RELOAD, SR75 SELECTABLE FDA Start: 08-17-2021 JOSSIE HERNANDEZ FDA Start: 08-17-2021 RELOAD, SR75 SELECTABLE FDA Start: 08-17-2021 RELOAD, SR75 SELECTABLE FDA Start: 08-17-2021 RELOAD, SR75 SELECTABLE FDA Start: 08-17-2021 JOSSIE HERNANDEZ FDA Start: 08-17-2021 RELOAD, SR75 SELECTABLE FDA Start: 08-17-2021 RELOAD, SR75 SELECTABLE FDA Start: 08-17-2021 RELOAD, SR75 SELECTABLE FDA Start: 08-17-2021 JOSSIE HERNANDEZ FDA Start: 08-17-2021 RELOAD, SR75 SELECTABLE FDA Start: 08-17-2021 RELOAD, SR75 SELECTABLE FDA Start: 08-17-2021 RELOAD, SR75 SELECTABLE FDA Start: 08-17-2021 JOSSIE HERNANDEZ FDA Start: 08-17-2021 RELOAD, SR75 SELECTABLE FDA Start: 08-17-2021 RELOAD, SR75 SELECTABLE FDA Start: 08-17-2021 RELOAD, SR75 SELECTABLE FDA Start: 08-17-2021 JOSSIE HERNANDEZ FDA Start: 08-17-2021 RELOAD, SR75 SELECTABLE FDA Start: 08-17-2021 RELOAD, SR75 SELECTABLE FDA Start: 08-17-2021 RELOAD, SR75 SELECTABLE FDA Start: 08-17-2021 JOSSIE HERNANDEZ FDA Start: 08-17-2021 RELOAD, SR75 SELECTABLE FDA Start: 08-17-2021 RELOAD, SR75 SELECTABLE FDA Start: 08-17-2021 RELOAD, SR75 SELECTABLE FDA Start: 08-17-2021 JOSSIE HERNANDEZ FDA Start: 08-17-2021 RELOAD, SR75 SELECTABLE FDA Start: 08-17-2021 RELOAD, SR75 SELECTABLE FDA Start: 08-17-2021 RELOAD, SR75 SELECTABLE FDA Start: 08-17-2021 JOSSIE HERNANDEZ FDA Start: 08-17-2021 RELOAD, SR75 SELECTABLE FDA Start: 08-17-2021 RELOAD, SR75 SELECTABLE FDA Start: 08-17-2021 RELOAD, SR75 SELECTABLE FDA Start: 08-17-2021 JOSSIE HERNANDEZ FDA Start: 08-17-2021 RELOAD, SR75 SELECTABLE FDA Start: 08-17-2021 RELOAD, SR75 SELECTABLE FDA Start: 08-17-2021 RELOAD, SR75 SELECTABLE FDA Start: 08-17-2021 JOSSIE HERNANDEZ FDA Start: 08-17-2021 RELOAD, SR75 SELECTABLE FDA Start: 08-17-2021 RELOAD, SR75 SELECTABLE FDA Start: 08-17-2021 RELOAD, SR75 SELECTABLE FDA Start: 08-17-2021 JOSSIE HERNANDEZ FDA Start: 08-17-2021 RELOAD, SR75 SELECTABLE FDA Start: 08-17-2021 RELOAD, SR75 SELECTABLE FDA Start: 08-17-2021 RELOAD, SR75 SELECTABLE FDA Start: 08-17-2021 JOSSIE HERNANDEZ FDA Start: 08-17-2021 RELOAD, SR75 SELECTABLE FDA Start: 08-17-2021 RELOAD, SR75 SELECTABLE FDA Start: 08-17-2021 RELOAD, SR75 SELECTABLE FDA Start: 08-17-2021 JOSSIE HERNANDEZ FDA Start: 08-17-2021 RELOAD, SR75 SELECTABLE FDA Start: 08-17-2021 RELOAD, SR75 SELECTABLE FDA Start: 08-17-2021 RELOAD, SR75 SELECTABLE FDA Start: 08-17-2021 JOSSIE HERNANDEZ FDA Start: 08-17-2021 Goals Date Patient Goal Desired Activity /State Functional Status Date Assessment Result Facility 12-19-2024 Functional status Chair [facility] Work Phone: 12-18-2024 Functional status Activity Abili ty Standby Assist [facility] Work Phone: 12-18-2024 Functional status Ambulates;Bath room Privilege;Back to bed [facility] Work Phone: 11-26-2024 Functional status Chair [facility] Work Phone: Mental Status Date Assessment Result Facility 12-19-2024 Cognitive function Voice/Name [facility] Work Phone: 12-18-2024 Cognitive function Voice/Name [facility] Work Phone: 11-26-2024 Cognitive function Voice/Name [facility] Work Phone: 11-08-2024 Cognitive function Voice/Name [facility] Work Phone: Clinical Notes 04-06-2021 to 12-19-2024 Note Date & Type Note Facility 12-19-2024 Progress note Note Date/Time December 19, 2024 11:35 am [facility] Medical Records Department [address] [place] [address] Progress Note - Surgery 12/19/24 1134 MR#: [id number] Acct: [id number] Name: ELIZABETH HENLEY Rep #:[id number] : 1950 74 From: Kevan Jama MD PCP: Dr. Alejandro Rosales MD Status:ADM IN [facility] Subjective Subjective Doing well. No wrist pain No gram stain back yet but NGTD on cultures Objective Data Objective Data Vital Signs: Vital Signs Temp Pulse Resp BP Pulse Ox O2 Del Method 97.4 F L 72 16 128/92 H 94 Room Air 12/19/24 07:58 12/19/24 07:58 12/19/24 07:58 12/19/24 07:58 12/19/24 07:58 12/19/24 07:58 Oxygen Delivery Method Room Air Weight: 200 lb 13.458 oz Body Mass Index (BMI) 31.4 Intake & Output: Intake and Output for Last 24 Hours 12/17/24 12/18/24 12/19/24 23:59 23:59 23:59 Intake Total 1040 / 1040 809 / 1109 700 / 700 Balance 1040 / 1040 809 / 1109 700 / 700 Lab / Micro Data 12/19/24 04:32 12/19/24 04:32 Labs: Laboratory Results - last 24 hr 12/18/24 11:42: POC Glucose 160 H 12/18/24 16:37: POC Glucose 107 H 12/18/24 23:45: Vancomycin Trough 21.0 H 12/18/24 23:51: POC Glucose 118 H 12/19/24 04:32: WBC 9.1, RBC 5.14, Hgb 14.6, Hct 46.1, MCV 89.7, MCH 28.4, MCHC 31.7 L, RDW Std Deviation 49.9 H, RDW Coeff of Angela 14.9 H, Plt Count 237, MPV 10.2, Immature Gran % (Auto) 0.200, Neut % (Auto) 75.3 H, Lymph % (Auto) 14.6 L,Wolfe % (Auto) 7.5, Eos % (Auto) 1.9, Baso % (Auto) 0.5, Absolute Neuts (auto) 6.9, Absolute Lymphs (auto) 1.33, Nucleated RBC % 0, Sodium 139, Potassium 4.2, Chloride 105, Carbon Dioxide 23.1, Anion Gap 11, BUN 15, Creatinine 0.72, Estim Creat Clear Calc 73.65, Est GFR (MDRD) Non-Af 89, BUN/Creatinine Ratio 21.1 H, Glucose 116 H, Calcium 9.6 Micro: Microbiology 12/17/24 10:15 Fluid - Synovial (joint) Body Fluid Culture - Preliminary No growth-Final to follow Physical Exam Narrative Right upper Extremity Inspection: Minimal swelling in the right wrist and no overlying redness. No signs of induration or any crepitus. No signs of ascending infection Palpation: No tenderness of the right wrist. There is no pain with axial loading to the right wrist Motor: Able to bend and extend all MP, PIP, and DIP joints. Sensory: Intact to light touch on the radial and ulnar borders. Vascular: Finger tips are warm and well perfused with <2 second capillary refill. Assessment & Plan Assessment/Plan (1) Acute pain of right wrist: PLAN: Plan #Right wrist pain and swelling (agree with differential of potential right wristseptic arthritis versus inflammatory arthritis) * Agree with transition to PO antibiotics * Follow-up wrist aspirate * O.K. for a diet (no planned surgical intervention today) * Elevate right upper extremity * Plastics will see in clinic as OP Charges/Coding Visit Charges Inpatient E&M: 69273 Subs Hosp L1 12/19/24 1135 <Electronically signed by Kevan Jama MD> Cosigner Signature (if applicable): CC: ~ Signed [facility] Work Phone: 1(194) 455-207005-18-2025 Discharge summary [facility] Medical Records Department [address] [place] [address] Discharge Summary 12/19/24 1316 MR#: [id number] Acct: [id number] Name: ELIZABETH HENLEY Rep #:[id number] : 1950 74 From: Shayla Castro MD PCP: Dr. Alejandro Rosales MD Status:ADM IN [facility] Providers Date of Admission: 12/17/24 Date of Discharge: 12/19/24 Primary Care Physician: Dr. Alejandro Rosales MD Consultations 12/17/24 12:07 Consult: Plastic Surgery Routine Consulting Provider: Kevan Jama Reason for Consult: right wrist swelling, concerning for septic arthritis EMERGENT Consult: No MD Notified: Yes Date Notified: 12/17/24 Time Notified: 11:16 Method of Notification: ED Physician Initiated Reason For Visit: RIGHT WRIST PAIN AND SWELLING Diagnosis Discharge Diagnosis (1) Acute pain of right wrist: Status: Acute Code(s): M25.531 - Pain in right wrist Plan #Right wrist pain and swelling * Concerning for septic arthritis. * Swelling has improved markedly. * ED doctor was able to aspirate some fluid from it which will be sent for cell count and culture. * Discussed with plastic surgery wanted patient admitted due to concern for septic arthritis. * On IV vancomycin. Plastic surgery on board. Per plastic surgery to continue with antibiotics until wrist aspirate results. * P.o. Tylenol and p.o. oxycodone as needed for pain. IV morphine as needed for pain. * PT/OT consult * fall precautions * uric acid not elevated, so will hold off on adding on colchicine and steroids. * She did have some itching while getting the vancomycin yesterday. She also complained of itching of his scalp at the same time. It is unclear whether this was really due to the vancomycin. She received Benadryl but subsequently became drowsy so it is difficult to determine whether this was a trueallergy. I discussed with pharmacy and the rate of vancomycin has been slowed down. Will give the vancomycin today to see if she has any itching whilst getting it. If she does then vancomycin will benoted as a true allergy. * # History of COPD: Not in exacerbation. Breathing treatments bronchodilators. #Hyperlipidemia: On statin #Type 2 diabetes mellitus: On Farxiga. Insulin sliding scale. Accu-Cheks ACHS. #Hypothyroidism: Synthroid #History of A-fib: On Eliquis DVT prophylaxis: Already on Eliquis Code status: full code * Medications at Discharge Home Medications acetaminophen 325 mg tablet 650 mg (2 x 325 mg) PO TID PRN fever/pain #1 TAB 11/25/24 albuterol sulfate 90 mcg/actuation aerosol inhaler 2 puff inhalation Q4H PRN Wheezing #1 g 11/25/24 dapagliflozin propanediol 10 mg tablet (Farxiga) 10 mg PO DAILY dm #30 tabs 11/25/24 fluticasone fur. 200 mcg-umeclid 62.5 mcg-vilant 25 mcg inhalat.powder (Trelegy Ellipta) 1 inh inhalation DAILY sob #1 inh 11/25/24 fluticasone propionate 50 mcg/actuation nasal spray,suspension 2 spray intranasal DAILY congestion #1 inh 11/25/24 levothyroxine 88 mcg tablet (Euthyrox) 88 mcg PO DAILY THYROID #30 tabs 11/25/24 apixaban 5 mg tablet (Eliquis) 5 mg PO BID blood thinner #60 tabs 12/07/24 atorvastatin 40 mg tablet 40 mg PO QHS cholesterol #30 tabs 12/07/24 cefdinir 300 mg capsule 300 mg PO BID #10 caps 12/19/24 doxycycline hyclate 100 mg tablet 100 mg PO BID #10 tabs 12/19/24 Hospital Course Operations None Procedures None Summary of Care Provided Minutes Spent on Discharge: 45 Hospital Course: ELIZABETH HENLEY, is a 74 F with a PMH as outlined who presents via the ED on 12/17/2024 with a complaint of right wrist pain. The pain started the day before admission. The pain was worse with movement of the right wrist. She could not flex or extend her wrist. She rated the pain at 10 out of 10. She denied any trauma to the arm or the wrist. She denied any fever or chills, nausea vomitingor any other symptoms. She denies any history of gout. Review of systems otherwise negative. Vitals i the ED were BP of 129/66, [place] of 82, RR of 14 and temp of 97.4F. She wassaturating at 98% on room air. CBC showed wbc of 8.2, hb of 13.9 and platelets of 227. ESR was 48. Chemistry showed sodium of 136, potassium of 4 and bicarb of24.6. Cr was 0.79. CRP was elevated at 32.40. Right wrist x-ray was negative for any acute pathology. She has been admitted to be evaluated for right wrist cellulitis with concern for septic arthritis. She did have right wrist aspiration done in the ED by ED doctor. She was admitted and managed to rule outright wrist septic arthritis. She was started on IV vancomycin. The fluid aspirate preliminary culture was negative. Gram stain and anerobic cultures werepending. The pain completely resolved and she felt much better. She remained stable and she was discharged on 12/19/2024 on PO doxycycline and PO cefdinir x 5days. She is to follow up with her PCP andplastic surgery within 1-2 weeks. Patient seen and examined prior to discharge. She had no active complaints and felt well. She was eager to be discharged home. Review of systems is otherwise negative. Labs and vitals reviewed. Home meds reviewed and reconciled. Physical Exam Const alert, oriented x3 and no apparent distress General Appearance: cooperative Exam Limitations: no limitations HEENT normocephalic, head/scalp atraumatic, hearing grossly normal bilaterally, moist oral mucous membranes and oropharynx normal Mouth: oral and palatal mucosa normal Eyes PERRL, EOMs intact bilaterally and conjunctivae normal Neck no lymphadenopathy and supple Resp normal respiratory effort, normal air movement, no retractions, no use of accessory muscles and clear to auscultation bilaterally Cardio regular rate, regular rhythm, S1 normal heart sound, S2 normal heart sound and no murmurs GI normal to inspection, nondistended, normoactive bowel sounds, soft to palpation,non-tender and non-distended Extremity Extremity Narrative: right wrist swelling has resolved. General Extremity: no tenderness to palpation of joints or extremities Skin no rashes or lesions noted Neuro oriented x3, CN's II-XII intact bilaterally, moves all extremities and no focal motor deficits Sensorium / Orientation: awake and alert Motor Exam: strength 5/5 throughout and general weakness Psych thought process normal, cooperative and affect normal Appearance: appropriate Weight / BMI Weight Weight: 200 lb 13.458 oz Body Mass Index (BMI) 31.4 ABG / Lab / Microbiology Data 12/19/24 04:32 12/19/24 04:32 Laboratory: Laboratory Results - last 24 hr 12/18/24 16:37: POC Glucose 107 H 12/18/24 23:45: Vancomycin Trough 21.0 H 12/18/24 23:51: POC Glucose 118 H 12/19/24 04:32: WBC 9.1, RBC 5.14, Hgb 14.6, Hct 46.1, MCV 89.7, MCH 28.4, MCHC 31.7 L, RDW Std Deviation 49.9 H, RDW Coeff of Angela 14.9 H, Plt Count 237, MPV 10.2, Immature Gran % (Auto) 0.200, Neut % (Auto) 75.3 H, Lymph % (Auto) 14.6 L,Wolfe % (Auto) 7.5, Eos % (Auto) 1.9, Baso % (Auto) 0.5, Absolute Neuts (auto) 6.9, Absolute Lymphs (auto) 1.33, Nucleated RBC % 0, Sodium 139, Potassium 4.2, Chloride 105, Carbon Dioxide 23.1, Anion Gap 11, BUN 15, Creatinine 0.72, Estim Creat Clear Calc 73.65,Est GFR (MDRD) Non-Af 89, BUN/Creatinine Ratio 21.1 H, Glucose 116 H, Calcium 9.6 12/19/24 12:02: POC Glucose 108 H Microbiology: Microbiology 12/17/24 10:15 Fluid - Synovial (joint) Body Fluid Culture - Preliminary No growth-Final to follow D/C Instructions Discharge Diet: Low fat / Low cholesterol Discharge Activity: Return to Normal Activity Weight Bearing Status: Weight bearing as tolerated Call your doctor if you observe: Fever of 101 or Higher, Shortness of breath, Dizziness, Swelling in the ankles and Chest pain DC O2, CPAP, BIPAP Needs Home O2 Discharge instructions: No Meaningful Use Info Meaningful Use Meaningful Use Diagnoses (Choose all that apply): None applicable Ischemic Stroke Statin Dosing Therapy Reference: STATIN DOSE THERAPY REFERENCE: * Patients > 75 years receive moderate or high dose statin therapy. * Patients 75 years or YOUNGER should receive HIGH intensity statin dose unless contraindicated. You will be required to document reason for non-treatment if statin daily dose does not meet guidelines. HIGH DOSE STATIN THERAPY DAILY Atorvastatin > than or = to 40 mg Rosuvastatin > than or = to 20 mg Amlodipine + Atorvastatin > than or = to 2.5/40 mg Ezetimibe + Simvastatin 10/80 mg Simvastatin 80mg Discharge Plan Admission Admit Date/Time: 12/17/24 11:07 Primary Reason for Your Visit: arthritis of left wrist Attending Provider: Shayla Castro Primary Care Provider: Alejandro Rosales Consulting Providers: Kevan Jama Instructions Patient Instructions: ED Osteoarthritis Discharge Orders/Prescriptions Prescriptions: New cefdinir 300 mg capsule 300 mg PO BID Qty: 10 0RF doxycycline hyclate 100 mg tablet 100 mg PO BID Qty: 10 0RF Continued atorvastatin 40 mg tablet 40 mg PO QHS Qty: 30 3RF Eliquis 5 mg tablet 5 mg PO BID Qty: 60 3RF acetaminophen 325 mg Tablet 650 mg PO TID PRN (Reason: fever/pain) Qty: 1 0RF albuterol sulfate 90 mcg/actuation Hfa Aerosol Inhaler 2 puff inhalation Q4H PRN (Reason: Wheezing) Qty: 1 0RF Rx Instructions: 2 puffs every 4 hours as needed for wheezing/shortness of breath levothyroxine [Euthyrox] 88 mcg Tablet 88 mcg PO DAILY Qty: 30 0RF Rx Instructions: Take this on an empty stomach and then do not eat or drink for 30 minutes. fluticasone propionate 50 mcg/actuation spray,suspension 2 spray INTRANASAL DAILY Qty: 1 0RF dapagliflozin propanediol [Farxiga] 10 mg tablet 10 mg PO DAILY Qty: 30 0RF Trelegy Ellipta 200-62.5-25 mcg blister with device 1 inh inhalation DAILY Qty: 1 0RF Patient Comments: PT USES NEEDED Referrals / Follow Up: Alejandro Rosales MD [Primary Care Provider] - Within 1 Week Kevan Jama MD [Med Staff - Active Staff] - Within 1 Week Disposition Disposition (needs filled in before D/C Order can be placed): Home, Self Care Charges/Coding Visit Charges Inpatient E&M: 60960 Disch Hosp >30min 12/19/24 1327 Cosigner Signature (if applicable): CC: Dr. Alejandro Rosales MD; Dr. Shayla Castro MD~ Signed [facility]05-18-2025 Discharge summary [facility] Medical Records Department [address] [place] [address] Instructions for Home/Discharge Instructions 12/19/24 1315 MR#: [id number] Acct: [id number] Name: ELIZABETH HENLEY Rep #:[id number] : 1950 74 From: Shayla Castro MD PCP: Dr. Alejandro Rosales MD Status:ADM IN Discharge Instructions Diet Discharge Diet: Low fat / Low cholesterol DC O2, CPAP, BIPAP needs Home O2 Discharge instructions: No Dressing / Incision Discharge Activity: Return to Normal Activity Weight Bearing Status: Weight bearing as tolerated Dressing / Incision Call your doctor if you observe: Fever of 101 or Higher, Shortness of breath, Dizziness, Swelling in the ankles and Chest pain Follow Up Care Test Results: Test results from this visit will be discussed in further detail at your follow- up appointment, if applicable. Discharge Plan Admission Admit Date/Time: 12/17/24 11:07 Primary Reason for Your Visit: arthritis of left wrist Attending Provider: Shayla Castro Primary Care Provider: Alejandro Rosales Consulting Providers: Kevan Jama Instructions Patient Instructions: ED Osteoarthritis Discharge Orders/Prescriptions Prescriptions: New cefdinir 300 mg capsule 300 mg PO BID Qty: 10 0RF doxycycline hyclate 100 mg tablet 100 mg PO BID Qty: 10 0RF Continued atorvastatin 40 mg tablet 40 mg PO QHS Qty: 30 3RF Eliquis 5 mg tablet 5 mg PO BID Qty: 60 3RF acetaminophen 325 mg Tablet 650 mg PO TID PRN (Reason: fever/pain) Qty: 1 0RF albuterol sulfate 90 mcg/actuation Hfa Aerosol Inhaler 2 puff inhalation Q4H PRN (Reason: Wheezing) Qty: 1 0RF Rx Instructions: 2 puffs every 4 hours as needed for wheezing/shortness of breath levothyroxine [Euthyrox] 88 mcg Tablet 88 mcg PO DAILY Qty: 30 0RF Rx Instructions: Take this on an empty stomach and then do not eat or drink for 30 minutes. fluticasone propionate 50 mcg/actuation spray,suspension 2 spray INTRANASAL DAILY Qty: 1 0RF dapagliflozin propanediol [Farxiga] 10 mg tablet 10 mg PO DAILY Qty: 30 0RF Trelegy Ellipta 200-62.5-25 mcg blister with device 1 inh inhalation DAILY Qty: 1 0RF Patient Comments: PT USES NEEDED Referrals / Follow Up: Alejandro Rosales MD [Primary Care Provider] - Within 1 Week Kevan Jama MD [Med Staff - Active Staff] - Within 1 Week Disposition Disposition (needs filled in before D/C Order can be placed): Home, Self Care 12/19/24 1316Nana Ana M Castro MD CC: Dr. Alejandro Rosales MD; Dr. Kevan Jama MD ~ Signed [facility]05-18-2025 [facility] Progress note [facility] Medical Records Department [address] [place] [address] Progress Note - Surgery 12/19/24 1134 MR#: [id number] Acct: [id number] Name: ELIZABETH HENLEY Rep #:[id number] : 1950 74 From: Kevan Jama MD PCP: Dr. Alejandro Rosales MD Status:ADM IN [facility] Subjective Subjective Doing well. No wrist pain No gram stain back yet but NGTD on cultures Objective Data Objective Data Vital Signs: Vital Signs Temp Pulse Resp BP Pulse Ox O2 Del Method 97.4 F L 72 16 128/92 H 94 Room Air 12/19/24 07:58 12/19/24 07:58 12/19/24 07:58 12/19/24 07:58 12/19/24 07:58 12/19/24 07:58 Oxygen Delivery Method Room Air Weight: 200 lb 13.458 oz Body Mass Index (BMI) 31.4 Intake & Output: Intake and Output for Last 24 Hours 12/17/24 12/18/24 12/19/24 23:59 23:59 23:59 Intake Total 1040 / 1040 809 / 1109 700 / 700 Balance 1040 / 1040 809 / 1109 700 / 700 Lab / Micro Data 12/19/24 04:32 12/19/24 04:32 Labs: Laboratory Results - last 24 hr 12/18/24 11:42: POC Glucose 160 H 12/18/24 16:37: POC Glucose 107 H 12/18/24 23:45: Vancomycin Trough 21.0 H 12/18/24 23:51: POC Glucose 118 H 12/19/24 04:32: WBC 9.1, RBC 5.14, Hgb 14.6, Hct 46.1, MCV 89.7, MCH 28.4, MCHC 31.7 L, RDW Std Deviation 49.9 H, RDW Coeff of Angela 14.9 H, Plt Count 237, MPV 10.2, Immature Gran % (Auto) 0.200, Neut % (Auto) 75.3 H, Lymph % (Auto) 14.6 L,Wolfe % (Auto) 7.5, Eos % (Auto) 1.9, Baso % (Auto) 0.5, Absolute Neuts (auto) 6.9, Absolute Lymphs (auto) 1.33, Nucleated RBC % 0, Sodium 139, Potassium 4.2, Chloride 105, Carbon Dioxide 23.1, Anion Gap 11, BUN 15, Creatinine 0.72, Estim Creat Clear Calc 73.65,Est GFR (MDRD) Non-Af 89, BUN/Creatinine Ratio 21.1 H, Glucose 116 H, Calcium 9.6 Micro: Microbiology 12/17/24 10:15 Fluid - Synovial (joint) Body Fluid Culture - Preliminary No growth-Final to follow Physical Exam Narrative Right upper Extremity Inspection: Minimal swelling in the right wrist and no overlying redness. No signs of induration orany crepitus. No signs of ascending infection Palpation: No tenderness of the right wrist. There is no pain with axial loading to the right wrist Motor: Able to bend and extend all MP, PIP, and DIP joints. Sensory: Intact to light touch on the radial and ulnar borders. Vascular: Finger tips are warm and well perfused with <2 second capillary refill. Assessment & Plan Assessment/Plan (1) Acute pain of right wrist: PLAN: Plan #Right wrist pain and swelling (agree with differential of potential right wristseptic arthritis versus inflammatory arthritis) * Agree with transition to PO antibiotics * Follow-up wrist aspirate * O.K. for a diet (no planned surgical intervention today) * Elevate right upper extremity * Plastics will see in clinic as OP Charges/Coding Visit Charges Inpatient E&M: 21556 Subs Hosp L1 12/19/24 1135 Cosigner Signature (if applicable): CC: ~ Signed [facility]05-18-2025 Consult note Author Abhijeet Oakes [facility] Note Date/Time December 19, 2024 1:13a m [facility] Medical Records Department [address] [place] [address] Pharmacokinetic/Renal -Consult 12/19/24 011 MR#: [id number] Acct: [id number] Name: ELIZABETH HENLEY Rep #:[id number] : 1950 74 From: Abhijeet Lockett od PCP: Dr. Alejandro Rosales MD Status:ADM IN Location: [place] 286232-1 Consult Antibiotic Management Pharmacy has been consulted to manage selected antibiotic: Vancomycin Type of Intervention Type of Consult: Follow-up Labs Labs: Sodium 139 mmol/L (133-145) 12/18/24 04:40 Potassium 4.7 mmol/L (3.3-5.1) 12/18/24 04:40 Chloride 106 mmol/L (98-108) 12/18/24 04:40 Carbon Dioxide 22.2 mmol/L (21.0-32.0) 12/18/24 04:40 Anion Gap 11 (5-15) 12/18/24 04:40 BUN 15 mg/dL (4-19) 12/18/24 04:40 Creatinine 0.80 mg/dL (0.70-1.20) 12/18/24 04:40 Est GFR (MDRD) Non-Af 78 (>60) 12/18/24 04:40 BUN/Creatinine Ratio 18.9 RATIO (10-20) 12/18/24 04:40 Glucose 113 mg/dL (70-99) H 12/18/24 04:40 Vancomycin Trough 21.0 ug/mL (5.0-15.0) H 12/18/24 23:45 Goal Trough Goal Trough: 15-20 mcg/mL Pharmacy Plan for Drug Dosing Pharmacy Plan for Drug Dosing: Pharmacy Service will continue to monitor and adjust dosing as required. TROUGH 21 @ 11.5 HOURS. DEREASE T5O 1GM Q12H AND FOLLOW UP TROUGH PRIOR TO 4TH DOSE Follow-Up Labs Follow-Up Labs: Trough: Vancomycin Date/Time Labs Ordered Labs to be done on [date and time ordered]: 12/20 @ 1300 12/19/24112 <Electronically signed by Abhijeet palacios> Date _ Abhijeet Oakes Cosigner Signature (if applicable): Date CC: ~ Signed [facility] Work Phone: 1(314) 987-623605-18-2025 Consult note [facility] Medical Records Department [address] [place] [address] Pharmacokinetic/Renal -Consult 12/19/24111 MR#: [id number] Acct: [id number] Name: ELIZABETH HENLEY Rep #:[id number] : 1950 74 From: Abhijeet Lockett od PCP: Dr. Alejandro Rosales MD Status:ADM IN Location: [place] [address] Consult Antibiotic Management Pharmacy has been consulted to manage selected antibiotic: Vancomycin Type of Intervention Type of Consult: Follow-up Labs Labs: Sodium 139 mmol/L (133-145) 12/18/24 04:40 Potassium 4.7 mmol/L (3.3-5.1) 12/18/24 04:40 Chloride 106 mmol/L (98-108) 12/18/24 04:40 Carbon Dioxide 22.2 mmol/L (21.0-32.0) 12/18/24 04:40 Anion Gap 11 (5-15) 12/18/24 04:40 BUN 15 mg/dL (4-19) 12/18/24 04:40 Creatinine 0.80 mg/dL (0.70-1.20) 12/18/24 04:40 Est GFR (MDRD) Non-Af 78 (>60) 12/18/24 04:40 BUN/Creatinine Ratio 18.9 RATIO (10-20) 12/18/24 04:40 Glucose 113 mg/dL (70-99) H 12/18/24 04:40 Vancomycin Trough 21.0 ug/mL (5.0-15.0) H 12/18/24 23:45 Goal Trough Goal Trough: 15-20 mcg/mL Pharmacy Plan for Drug Dosing Pharmacy Plan for Drug Dosing: Pharmacy Service will continue to monitor and adjust dosing as required. TROUGH 21 @ 11.5 HOURS. DEREASE T5O 1GM Q12H AND FOLLOW UP TROUGH PRIOR TO 4TH DOSE Follow-Up Labs Follow-Up Labs: Trough: Vancomycin Date/Time Labs Ordered Labs to be done on [date and time ordered]: 12/20 @ 1300 12/19/24 0113 lood> Date _ Abhijeet Grossman Signature (if applicable): Date CC: ~ Signed [facility]05-17-2025 Progress note Author Shaylavelasquez Castro [facility] Note Date/Time December 18, 2024 2:31p m [facility] Medical Records Department [address] [facility] [place] [address] Progress Note 12/18/24 1319 MR#: [id number] Acct: [id number] Name: KALEELIZABETH A Rep #:[id number] : 1950 74 From: Shayla Castro MD PCP: Dr. Alejandro Rosales MD Status:ADM IN Location: [place] [address] Subjective Subjective Patient seen and examined. She had no active complaints. Her wrist pain had improved markedly and she felt much better. Review of systems otherwise negative. She has remained hemodynamically stable. No plans for surgical intervention today as pain has improved significantly. Objective Data Objective Data Vital Signs: Vital Signs Temp Pulse Resp BP Pulse Ox O2 Del Method 97.6 F L 57 L 17 115/56 L 96 Room Air 12/18/24 08:56 12/18/24 08:56 12/18/24 08:56 12/18/24 08:56 12/18/24 08:56 12/18/24 09:01 Oxygen Delivery Method Room Air Weight: 200 lb 13.458 oz Body Mass Index (BMI) 31.4 Intake & Output: Intake and Output for Last 24 Hours 12/16/24 12/17/24 12/18/24 23:59 23:59 23:59 Intake Total 1040 / 1040 305 / 305 Balance 1040 / 1040 305 / 305 Lab / Micro Data 12/18/24 04:40 12/18/24 04:40 Labs: Laboratory Results - last 24 hr 12/17/24 16:29: POC Glucose 163 H 12/17/24 21:01: POC Glucose 125 H 12/18/24 04:40: WBC 8.8, RBC 4.89, Hgb 13.8, Hct 43.5, MCV 89.0, MCH 28.2, MCHC 31.7 L, RDW Std Deviation 48.4 H, RDW Coeff of Angela 14.9 H, Plt Count 235, MPV 10.4, Immature Gran % (Auto) 0.300, Neut % (Auto) 72.6 H, Lymph % (Auto) 17.3 L,Wolfe % (Auto) 7.5, Eos % (Auto) 1.7, Baso % (Auto) 0.6, Absolute Neuts (auto) 6.4, Absolute Lymphs (auto) 1.51, Nucleated RBC % 0, Sodium 139, Potassium 4.7, Chloride 106, Carbon Dioxide 22.2, Anion Gap 11, BUN 15, Creatinine 0.80, Estim Creat Clear Calc 73.65, Est GFR (MDRD) Non-Af 78, BUN/Creatinine Ratio 18.9, Glucose 113 H, Hemoglobin A1c 6.6 H, Calcium 9.6 12/18/24 06:35: POC Glucose 108 H 12/18/24 11:42: POC Glucose 160 H Physical Exam Const alert, oriented x3 and no apparent distress General Appearance: cooperative HEENT normocephalic, head/scalp atraumatic, hearing grossly normal bilaterally and moist oral mucous membranes Eyes PERRL, EOMs intact bilaterally and conjunctivae normal Neck no lymphadenopathy and supple Resp normal respiratory effort, normal air movement, no retractions, no use of accessory muscles and clear to auscultation bilaterally Cardio regular rate, regular rhythm, S1 normal heart sound, S2 normal heart sound and no murmurs GI normal to inspection, nondistended, normoactive bowel sounds, soft to palpation,non-tender and non-distended Extremity Extremity Narrative: right wrist swelling has improved markedly. Able to flex and extend wrist fully.NO differential warmth. General Extremity: no tenderness to palpation of joints or extremities Neuro oriented x3, CN's II-XII intact bilaterally, moves all extremities and no focal motor deficits Sensorium / Orientation: awake and alert Motor Exam: strength 5/5 throughout and general weakness Psych thought process normal, cooperative and affect normal Appearance: appropriate Assessment & Plan Assessment/Plan (1) Acute pain of right wrist: PLAN: Plan #Right wrist pain and swelling * Concerning for septic arthritis. * Swelling has improved markedly. * ED doctor was able to aspirate some fluid from it which will be sent for cell count and culture. * Discussed with plastic surgery wanted patient admitted due to concern for septic arthritis. * On IV vancomycin. Plastic surgery on board. Per plastic surgery to continue with antibiotics until wrist aspirate results. * P.o. Tylenol and p.o. oxycodone as needed for pain. IV morphine as needed for pain. * PT/OT consult * fall precautions * uric acid not elevated, so will hold off on adding on colchicine and steroids. * She did have some itching while getting the vancomycin yesterday. She also complained of itching of his scalp at the same time. It is unclear whether this was really due to the vancomycin. She received Benadryl but subsequently became drowsy so it is difficult to determine whether this was a true allergy. I discussed with pharmacy and the rate of vancomycin has been slowed down. Will give the vancomycin today to see if she has any itching whilst getting it. If she does then vancomycin will be noted as a true allergy. * # History of COPD: Not in exacerbation. Breathing treatments bronchodilators. #Hyperlipidemia: On statin #Type 2 diabetes mellitus: On Farxiga. Insulin sliding scale. Accu-Cheks ACHS. #Hypothyroidism: Synthroid #History of A-fib: On Eliquis DVT prophylaxis: Already on Eliquis Code status: full code * Charges/Coding Visit Charges Inpatient E&M: 95975 Subs Hosp L2 12/18/24 1431 <Electronically signed by Shayla Castro MD> Shayla Castro MD Cosigner Signature (if applicable): CC: ~ Signed [facility] Work Phone: [phone]) [phone] Progress note [facility] Medical Records Department [address] [place] [address] Progress Note 12/18/24 1319 MR#: [id number] Acct: [id number] Name: ELIZABETH HENLEY Rep #:[id number] : 1950 74 From: Shayla Castro MD PCP: Dr. Alejandro Rosales MD Status:ADM IN Location: [place] [address] Subjective Subjective Patient seen and examined. She had no active complaints. Her wrist pain had improved markedly and she felt much better. Review of systems otherwise negative. She has remained hemodynamically stable. No plans for surgical intervention today as pain has improved significantly. Objective Data Objective Data Vital Signs: Vital Signs Temp Pulse Resp BP Pulse Ox O2 Del Method 97.6 F L 57 L 17 115/56 L 96 Room Air 12/18/24 08:56 12/18/24 08:56 12/18/24 08:56 12/18/24 08:56 12/18/24 08:56 12/18/24 09:01 Oxygen Delivery Method Room Air Weight: 200 lb 13.458 oz Body Mass Index (BMI) 31.4 Intake & Output: Intake and Output for Last 24 Hours 12/16/24 12/17/24 12/18/24 23:59 23:59 23:59 Intake Total 1040 / 1040 305 / 305 Balance 1040 / 1040 305 / 305 Lab / Micro Data 12/18/24 04:40 12/18/24 04:40 Labs: Laboratory Results - last 24 hr 12/17/24 16:29: POC Glucose 163 H 12/17/24 21:01: POC Glucose 125 H 12/18/24 04:40: WBC 8.8, RBC 4.89, Hgb 13.8, Hct 43.5, MCV 89.0, MCH 28.2, MCHC 31.7 L, RDW Std Deviation 48.4 H, RDW Coeff of Angela 14.9 H, Plt Count 235, MPV 10.4, Immature Gran % (Auto) 0.300, Neut % (Auto) 72.6 H, Lymph % (Auto) 17.3 L,Wolfe % (Auto) 7.5, Eos % (Auto) 1.7, Baso % (Auto) 0.6, Absolute Neuts (auto) 6.4, Absolute Lymphs (auto) 1.51, Nucleated RBC % 0, Sodium 139, Potassium 4.7, Chloride 106, Carbon Dioxide 22.2, Anion Gap 11, BUN 15, Creatinine 0.80, Estim Creat Clear Calc 73.65,Est GFR (MDRD) Non-Af 78, BUN/Creatinine Ratio 18.9, Glucose 113 H, Hemoglobin A1c 6.6 H, Calcium 9.6 12/18/24 06:35: POC Glucose 108 H 12/18/24 11:42: POC Glucose 160 H Physical Exam Const alert, oriented x3 and no apparent distress General Appearance: cooperative HEENT normocephalic, head/scalp atraumatic, hearing grossly normal bilaterally and moist oral mucous membranes Eyes PERRL, EOMs intact bilaterally and conjunctivae normal Neck no lymphadenopathy and supple Resp normal respiratory effort, normal air movement, no retractions, no use of accessory muscles and clear to auscultation bilaterally Cardio regular rate, regular rhythm, S1 normal heart sound, S2 normal heart sound and no murmurs GI normal to inspection, nondistended, normoactive bowel sounds, soft to palpation,non-tender and non-distended Extremity Extremity Narrative: right wrist swelling has improved markedly. Able to flex and extend wrist fully.NO differential warmth. General Extremity: no tenderness to palpation of joints or extremities Neuro oriented x3, CN's II-XII intact bilaterally, moves all extremities and no focal motor deficits Sensorium / Orientation: awake and alert Motor Exam: strength 5/5 throughout and general weakness Psych thought process normal, cooperative and affect normal Appearance: appropriate Assessment & Plan Assessment/Plan (1) Acute pain of right wrist: PLAN: Plan #Right wrist pain and swelling * Concerning for septic arthritis. * Swelling has improved markedly. * ED doctor was able to aspirate some fluid from it which will be sent for cell count and culture. * Discussed with plastic surgery wanted patient admitted due to concern for septic arthritis. * On IV vancomycin. Plastic surgery on board. Per plastic surgery to continue with antibiotics until wrist aspirate results. * P.o. Tylenol and p.o. oxycodone as needed for pain. IV morphine as needed for pain. * PT/OT consult * fall precautions * uric acid not elevated, so will hold off on adding on colchicine and steroids. * She did have some itching while getting the vancomycin yesterday. She also complained of itching of his scalp at the same time. It is unclear whether this was really due to the vancomycin. She received Benadryl but subsequently became drowsy so it is difficult to determine whether this was a trueallergy. I discussed with pharmacy and the rate of vancomycin has been slowed down. Will give the vancomycin today to see if she has any itching whilst getting it. If she does then vancomycin will benoted as a true allergy. * # History of COPD: Not in exacerbation. Breathing treatments bronchodilators. #Hyperlipidemia: On statin #Type 2 diabetes mellitus: On Farxiga. Insulin sliding scale. Accu-Cheks ACHS. #Hypothyroidism: Synthroid #History of A-fib: On Eliquis DVT prophylaxis: Already on Eliquis Code status: full code * Charges/Coding Visit Charges Inpatient E&M: 57030 Subs Hosp L2 12/18/24 1431 Shayla Castro MD Cosigner Signature (if applicable): CC: ~ Signed [facility]05-17-2025 Progress note Author Kevan Jama [facility] Note Date/Time December 18, 2024 8:23a m [facility] Medical Records Department [address] [place] [address] Progress Note 12/18/24 0820 MR#: [id number] Acct: [id number] Name: ELIZABETH HENLEY Velasquez Rep #:[id number] : 1950 74 From: Kevan Jama MD PCP: Dr. Alejandro Rosales MD Status:ADM IN Location: [facility] [id number] Subjective Subjective Doing well. No pain in the right wrist today. Reports resolution of wrist pain since the aspiration. Objective Data Objective Data Vital Signs: Vital Signs Temp Pulse Resp BP Pulse Ox O2 Del Method 97.8 F 72 18 120/54 L 93 Room Air 12/18/24 06:29 12/18/24 06:29 12/18/24 06:29 12/18/24 06:29 12/18/24 06:29 12/18/24 06:29 Oxygen Delivery Method Room Air Weight: 200 lb 13.458 oz Body Mass Index (BMI) 31.4 Intake & Output: Intake and Output for Last 24 Hours 12/16/24 12/17/24 12/18/24 23:59 23:59 23:59 Intake Total 1040 / 1040 305 / 305 Balance 1040 / 1040 305 / 305 Lab / Micro Data 12/18/24 04:40 12/18/24 04:40 Labs: Laboratory Results - last 24 hr 12/17/24 08:42: WBC 8.2, RBC 4.92, Hgb 13.9, Hct 43.0, MCV 87.4, MCH 28.3, MCHC 32.3, RDW Std Deviation 48.6 H, RDW Coeff of Angela 15.1 H, Plt Count 227, MPV 10.2, Immature Gran % (Auto) 0.500, Neut % (Auto) 74.3 H, Lymph % (Auto) 14.9 L,Wolfe % (Auto) 8.6, Eos % (Auto) 1.1, Baso % (Auto) 0.6, Absolute Neuts (auto) 6.1, Absolute Lymphs (auto) 1.23, Nucleated RBC % 0, ESR 48 H, Sodium 136, Potassium 4.0, Chloride 102, Carbon Dioxide 24.6, Anion Gap 10, BUN 18, Creatinine 0.79, Estim Creat Clear Calc 75.70, Est GFR (MDRD) Non-Af 80, BUN/Creatinine Ratio 22.7 H, Glucose 146 H, Uric Acid 5.2, Calcium 9.6, C-React Prot Ext Range 32.40 H 12/17/24 16:29: POC Glucose 163 H 12/17/24 21:01: POC Glucose 125 H 12/18/24 04:40: WBC 8.8, RBC 4.89, Hgb 13.8, Hct 43.5, MCV 89.0, MCH 28.2, MCHC 31.7 L, RDW Std Deviation 48.4 H, RDW Coeff of Angela 14.9 H, Plt Count 235, MPV 10.4, Immature Gran % (Auto) 0.300, Neut % (Auto) 72.6 H, Lymph % (Auto) 17.3 L,Wolfe % (Auto) 7.5, Eos % (Auto) 1.7, Baso % (Auto) 0.6, Absolute Neuts (auto) 6.4, Absolute Lymphs (auto) 1.51, Nucleated RBC % 0, Sodium 139, Potassium 4.7, Chloride 106, Carbon Dioxide 22.2, Anion Gap 11, BUN 15, Creatinine 0.80, Estim Creat Clear Calc 73.65, Est GFR (MDRD) Non-Af 78, BUN/Creatinine Ratio 18.9, Glucose 113 H, Hemoglobin A1c 6.6 H, Calcium 9.6 12/18/24 06:35: POC Glucose 108 H Radiography Diagnostic Testing: Radiology Impression Wrist X-Ray 12/17/24 08:27 IMPRESSION: NEGATIVE WRIST Reading Location: [facility] Physical Exam Narrative Right upper Extremity Inspection: Minimal swelling in the right wrist and no overlying redness. No signs of induration or any crepitus. No signs of ascending infection Palpation: No tenderness of the right wrist. There is no pain with axial loading to the right wrist today (dramatic change in exam) Motor: Able to bend and extend all MP, PIP, and DIP joints. Sensory: Intact to light touch on the radial and ulnar borders. Vascular: Finger tips are warm and well perfused with <2 second capillary refill. Assessment & Plan Assessment/Plan (1) Acute pain of right wrist: PLAN: Plan #Right wrist pain and swelling (agree with differential of potential right wristseptic arthritis versus inflammatory arthritis) * Agree with broad-spectrum antibiotics * Follow-up wrist aspirate for diagnosis before discharge * O.K. for a diet (no planned surgical intervention today) * Elevate right upper extremity * Plastics will follow Charges/Coding Multi Select Codes Visit Charges Visit Charges: 61412 Subs Hosp L1 12/18/24 9220 <Electronically signed by Kevan Jama MD> Kevan Jama MD Cosigner Signature (if applicable): CC: ~ Signed [facility] Work Phone: [phone]) 437-254105-17-2025 Progress note [facility] Medical Records Department [address] [place] [address] Progress Note 12/18/24819 MR#: [id number] Acct: [id number] Name: ELIZABETH HENLEY Rep #:[id number] : 1950 74 From: Kevan Jama MD PCP: Dr. Alejandro Rosales MD Status:ADM IN Location: [place] [id number] Subjective Subjective Doing well. No pain in the right wrist today. Reports resolution of wrist pain since the aspiration. Objective Data Objective Data Vital Signs: Vital Signs Temp Pulse Resp BP Pulse Ox O2 Del Method 97.8 F 72 18 120/54 L 93 Room Air 12/18/24 06:29 12/18/24 06:29 12/18/24 06:29 12/18/24 06:29 12/18/24 06:29 12/18/24 06:29 Oxygen Delivery Method Room Air Weight: 200 lb 13.458 oz Body Mass Index (BMI) 31.4 Intake & Output: Intake and Output for Last 24 Hours 12/16/24 12/17/24 12/18/24 23:59 23:59 23:59 Intake Total 1040 / 1040 305 / 305 Balance 1040 / 1040 305 / 305 Lab / Micro Data 12/18/24 04:40 12/18/24 04:40 Labs: Laboratory Results - last 24 hr 12/17/24 08:42: WBC 8.2, RBC 4.92, Hgb 13.9, Hct 43.0, MCV 87.4, MCH 28.3, MCHC 32.3, RDW Std Deviation 48.6 H, RDW Coeff of Angela 15.1 H, Plt Count 227, MPV 10.2, Immature Gran % (Auto) 0.500, Neut % (Auto) 74.3 H, Lymph % (Auto) 14.9 L,Wolfe % (Auto) 8.6, Eos % (Auto) 1.1, Baso % (Auto) 0.6, Absolute Neuts (auto) 6.1, Absolute Lymphs (auto) 1.23, Nucleated RBC % 0, ESR 48 H, Sodium 136, Potassium 4.0, Chloride 102, Carbon Dioxide 24.6, Anion Gap 10, BUN 18, Creatinine 0.79, Estim Creat Clear Calc 75.70, Est GFR (MDRD) Non-Af 80, BUN/Creatinine Ratio 22.7 H, Glucose 146 H, Uric Acid 5.2, Calcium 9.6, C-React Prot Ext Range 32.40 H 12/17/24 16:29: POC Glucose 163 H 12/17/24 21:01: POC Glucose 125 H 12/18/24 04:40: WBC 8.8, RBC 4.89, Hgb 13.8, Hct 43.5, MCV 89.0, MCH 28.2, MCHC 31.7 L, RDW Std Deviation 48.4 H, RDW Coeff of Angela 14.9 H, Plt Count 235, MPV 10.4, Immature Gran % (Auto) 0.300, Neut % (Auto) 72.6 H, Lymph % (Auto) 17.3 L,Wolfe % (Auto) 7.5, Eos % (Auto) 1.7, Baso % (Auto) 0.6, Absolute Neuts (auto) 6.4, Absolute Lymphs (auto) 1.51, Nucleated RBC % 0, Sodium 139, Potassium 4.7, Chloride 106, Carbon Dioxide 22.2, Anion Gap 11, BUN 15, Creatinine 0.80, Estim Creat Clear Calc 73.65,Est GFR (MDRD) Non-Af 78, BUN/Creatinine Ratio 18.9, Glucose 113 H, Hemoglobin A1c 6.6 H, Calcium 9.6 12/18/24 06:35: POC Glucose 108 H Radiography Diagnostic Testing: Radiology Impression Wrist X-Ray 12/17/24 08:27 IMPRESSION: NEGATIVE WRIST Reading Location: [facility] Physical Exam Narrative Right upper Extremity Inspection: Minimal swelling in the right wrist and no overlying redness. No signs of induration orany crepitus. No signs of ascending infection Palpation: No tenderness of the right wrist. There is no pain with axial loading to the right wristtoday (dramatic change in exam) Motor: Able to bend and extend all MP, PIP, and DIP joints. Sensory: Intact to light touch on the radial and ulnar borders. Vascular: Finger tips are warm and well perfused with <2 second capillary refill. Assessment & Plan Assessment/Plan (1) Acute pain of right wrist: PLAN: Plan #Right wrist pain and swelling (agree with differential of potential right wristseptic arthritis versus inflammatory arthritis) * Agree with broad-spectrum antibiotics * Follow-up wrist aspirate for diagnosis before discharge * O.K. for a diet (no planned surgical intervention today) * Elevate right upper extremity * Plastics will follow Charges/Coding Multi Select Codes Visit Charges Visit Charges: 29783 Subs Hosp L1 12/18/24 0823 Kevan Jama MD Cosigner Signature (if applicable): CC: ~ Signed [facility]05-16-2025 History and physical note [facility] Note Date/Time December 17, 2024 5:05p [facility] Medical Records Department [address] [facility] [place] [address] H&P Exam - Hospitalist 12/17/24 1052 MR#: [id number] Acct: [id number] Name: ELIZABETH HENLEY Rep #:[id number] : 1950 74 From: Shayla Castro MD PCP: Dr. Alejandro Rosales MD Status:ADM [id number] - General General Date of Admission: 12/17/24 Date of Service: 12/17/24 Chief Complaint: right wrist pain HPI Narrative ELIZABETH HENLEY, is a 74 F with a PMH as outlined who presents via the ED on 12/17/2024 with a complaint of right wrist pain. The pain started the day before admission. The pain was worse with movement of the right wrist. She could not flex or extend her wrist. She rated the pain at 10 out of 10. She denied any trauma to the arm or the wrist. She denied any fever or chills, nausea vomitingor any other symptoms. She denies any history of gout. Review of systems otherwise negative. Vitals i the ED were BP of 129/66, [place] of 82, RR of 14 and temp of 97.4F. She wassaturating at 98% on room air. CBC showed wbc of 8.2, hb of 13.9 and platelets of 227. ESR was 48. Chemistry showed sodium of 136, potassium of 4 and bicarb of24.6. Cr was 0.79. CRP was elevated at 32.40. Right wrist x-ray was negative for any acute pathology. She has been admitted to be evaluated for right wrist cellulitis with concern for septic arthritis. She did have right wrist aspiration done in the ED by ED doctor. [facility] Medical History Pulmonary hypertension Colon cancer Mitral stenosis Gout (HFpEF) heart failure with preserved ejection fraction Hypothyroidism Noncompliance with medication regimen Pre-op evaluation Obesity (BMI 30.0-34.9) Hypokalemia Abnormal gastrointestinal PET scan Contusion Subtherapeutic international normalized ratio (INR) Stroke/cerebrovascular accident Post-menopausal Thyroid disease Diabetes TIA (transient ischemic attack) Dietary restriction Diarrhea Gastric reflux History of edema History of irregular heartbeat Cardiology follow-up encounter Cancer Colonic mass Elevated TSH Anemia Wears glasses Wears dentures Depression Bruising Arthritis Walker as ambulation aid Ambulates with cane Easy bruising Former smoker COPD (chronic obstructive pulmonary disease) Shortness of breath on exertion History of echocardiogram Chronic anticoagulation PAD (peripheral artery disease) History of rheumatic fever as a child History of anxiety PFO with atrial septal aneurysm Atrial thrombus CVA (cerebral vascular accident) (~2006) Essential hypertension Chronic combined systolic and diastolic heart failure Home Medications ?Medication ?Instructions ?Recorded ?Last Taken ?Type acetaminophen 325 mg tablet 650 mg (2 x 325 mg) PO TID PRN 11/25/24 12/17/24 Rx fever/pain #1 TAB albuterol sulfate 90 mcg/actuation 2 puff inhalation Q 4H PRN Wheezing 11/25/24 Unknown Rx aerosol inhaler #1 g dapagliflozin propanediol 10 mg 10 mg PO DAILY dm #30 tabs 11/25/24 12/17/24 Rx tablet (Farxiga) fluticasone fur. 200 mcg-umeclid 1 inh inhalation MOE Y sob #1 inh 11/25/24 Unknown Rx 62.5 mcg-vilant 25 mcg inhalat.powder (Trelegy Ellipta) fluticasone propionate 50 2 spray intranasal DAILY Unknown Rx mcg/actuation nasal congestion #1 inh spray,suspension levothyroxine 88 mcg tablet 88 mcg PO DAILY THYROID #3 0 tabs 04/24/25 05/16/25 Rx (Euthyrox) apixaban 5 mg tablet (Eliquis) 5 mg PO BID blood thinn er #60 tabs 12/07/24 12/17/24 Rx atorvastatin 40 mg tablet 40 mg PO QHS cholesterol #30 tabs 12/07/24 12/16/24 Rx Allergy/AdvReac Type Severity Reaction Status Date / Time codeine Allergy Severe anaphylaxis Verified 12/17/24 08:16 Family History Father Myocardial infarction Cancer lung CVA (cerebral vascular accident) Mother Colon cancer Brother Diabetes CAD (coronary artery disease) open heart surgery Surgical History Hx of right hemicolectomy S/P right hemicolectomy Hx of colonoscopy History of hysterectomy History of appendectomy History of cholecystectomy Social History household members: other details: 22 year old grandson lives with her, but he works nights. Smoking Status: Former smoker how long ago did patient quit smokin years ago alcohol intake: never substance use type: does not use caffeine: Yes Type: tea Number of servings: 2 ROS Constitutional Constitutional: Denies anorexia, chills, fatigue, fever(s), malaise or weakness Eyes Eyes: Denies change in vision ENT HEENT: Denies dysphagia or headache(s) Cardiovascular Cardiovascular: Denies chest pain, dyspnea on exertion, edema, lightheadedness, orthopnea, palpitations, paroxysmal nocturnal dyspnea, rapid heart rate or syncope Respiratory/Chest Respiratory/Chest: Denies cough, dyspnea, productive cough, shortness of breath at rest or shortness of breath with exertion Gastrointestinal Gastrointestinal: Denies abdominal pain, constipation, diarrhea, dyspepsia, nausea or vomiting Genitourinary Genitourinary: Denies burning urination, dysuria or urinary frequency Musculoskeletal Musculoskeletal: Reports joint pain Neurologic Neurologic: Denies confusion, dizziness, focal weakness, headache(s) or seizures Psychiatric Psychiatric: Denies anxiety Vital Signs Vital Signs Vital Signs: 12/17/24 08:15 Temperature 97.4 F L Temperature Source Temporal Pulse Rate 82 Respiratory Rate 14 Blood Pressure 129/66 H Blood Pressure Mean 87 Pulse Ox 98 Oxygen Delivery Method Room Air Weight Weight: 212 lb 1.355 oz Body Mass Index (BMI) 33.2 Physical Exam Const alert and oriented x3 Constitutional Narrative: in mild distress due to the wrist pain General Appearance: cooperative HEENT normocephalic, head/scalp atraumatic, hearing grossly normal bilaterally and moist oral mucous membranes Mouth: oral and palatal mucosa normal Eyes PERRL, EOMs intact bilaterally and conjunctivae normal Neck no lymphadenopathy and supple Resp normal respiratory effort, no retractions, no use of accessory muscles and clearto auscultation bilaterally Cardio regular rate, regular rhythm, S1 normal heart sound, S2 normal heart sound and no murmurs GI normal to inspection, nondistended, normoactive bowel sounds, soft to palpation,non-tender and non-distended Extremity Extremity Narrative: writh wrist mildly swollen, with minimal differential warmth, very tender to touch, especially over the lateral aspect of the wrist. Unable to flex or extendwrist without pain. No erythema. Intact dressing over site of the wrist aspiration Neuro oriented x3, CN's II-XII intact bilaterally, moves all extremities and no focal motor deficits Sensorium / Orientation: awake and alert Motor Exam: strength 5/5 throughout Psych affect normal Results Lab / Micro Data 12/17/24 08:42 12/17/24 08:42 Labs: Laboratory Results - last 24 hr 12/17/24 08:42: WBC 8.2, RBC 4.92, Hgb 13.9, Hct 43.0, MCV 87.4, MCH 28.3, MCHC 32.3, RDW Std Deviation 48.6 H, RDW Coeff of Angela 15.1 H, Plt Count 227, MPV 10.2, Immature Gran % (Auto) 0.500, Neut % (Auto) 74.3 H, Lymph % (Auto) 14.9 L,Wolfe % (Auto) 8.6, Eos % (Auto) 1.1, Baso % (Auto) 0.6, Absolute Neuts (auto) 6.1, Absolute Lymphs (auto) 1.23, Nucleated RBC % 0, ESR 48 H, Sodium 136, Potassium 4.0, Chloride 102, Carbon Dioxide 24.6, Anion Gap 10, BUN 18, Creatinine 0.79, Estim Creat Clear Calc 75.70, Est GFR (MDRD) Non-Af 80, BUN/Creatinine Ratio 22.7 H, Glucose 146 H, Calcium 9.6, C-React Prot Ext Range 32.40 H Imaging Radiology Impression Wrist X-Ray 12/17/24 08:27 IMPRESSION: NEGATIVE WRIST Reading Location: [id number] Assessment & Plan Assessment/Plan (1) Acute pain of right wrist: PLAN: Plan #Right wrist pain and swelling * Concerning for septic arthritis. The swelling has been going on for 1 day. * ED doctor was able to aspirate some fluid from it which will be sent for cell count and culture. * Discussed with plastic surgery wanted patient admitted due to concern for septic arthritis. Will consult plastic surgery. Started on broad-spectrum antibiotics. ESR and CRP elevated. * P.o. Tylenol and p.o. oxycodone as needed for pain. IV morphine as needed for pain. * PT/OT consult * fall precautions * uric acid not elevated, so will hold off on adding on colchicine and steroids. * # History of COPD: Not in exacerbation. Breathing treatments bronchodilators. #Hyperlipidemia: On statin #Type 2 diabetes mellitus: On Farxiga. Insulin sliding scale. Accu-Cheks ACHS. #Hypothyroidism: Synthroid #History of A-fib: On Eliquis DVT prophylaxis: Already on Eliquis Code status: full code * Patient counseled extensively about different types of CODE STATUS including full code, DNR CCA and DNR CCA. Patient elects to be full code. * Total dagf-fl-tetk time 17 minutes. Charges/Coding Visit Charges Inpatient E&M: 95880 Init Hosp L2 12/17/24 1648 <Electronically signed by Shayla Castro MD> Cosigner Signature (if applicable): CC: Dr. Alejandro Rosales MD; Dr. Shayla Castro MD~ Signed ADDENDUM by Dr. Shayla Castro MD on 12/17/24 at 1705 Addendum 17:04 I was notified by patient's nurse that patient complained of itching at the siteof the injection of the vancomycin. There was no visible rash. Patient also complained of itching on her scalp. It is unclear whether this is really a reaction to the vancomycin. I did order a dose of IV Benadryl 25 mg x 1. Patient however subsequently fell asleep after that so it is difficult to determine if she still having the itching or otherwise. I did discuss this withpharmacy. Will slow down the rate of the vancomycin administration and monitor patient closely for any further reaction. If she does develop this itching again and or it intensifies, will DC vancomycin and list it as an allergy. 12/17/24 1705<Electronically signed by Shayla Castro MD> Cosigner Signature (if applicable): cc: Dr. Alejandro Rosales MD; Dr. Shayla Castro MD ~* Signed [facility] Work Phone: 1(865) 777-625505-16-[address] [facility] Note Date/Time December 17, 2024 4:22p m [facility] Medical Records Department [address] [place] [address] Pharmacokinetic/Renal -Consult 12/17/24 1621 MR#: [id number] Acct: [id number] Name: ELIZABETH HENLEY Rep #:[id number] : 1950 74 From: Mary Ann Mendez PCP: Dr. Alejandro Rosales MD Status:ADM IN Location: [place] [address] Consult Antibiotic Management Pharmacy has been consulted to manage selected antibiotic: Vancomycin Type of Intervention Type of Consult: New start Suspected Infection Suspected Infection: Other Labs Labs: Sodium 136 mmol/L (133-145) 12/17/24 08:42 Potassium 4.0 mmol/L (3.3-5.1) 12/17/24 08:42 Chloride 102 mmol/L (98-108) 12/17/24 08:42 Carbon Dioxide 24.6 mmol/L (21.0-32.0) 12/17/24 08:42 Anion Gap 10 (5-15) 12/17/24 08:42 BUN 18 mg/dL (4-19) 12/17/24 08:42 Creatinine 0.79 mg/dL (0.70-1.20) 12/17/24 08:42 Est GFR (MDRD) Non-Af 80 (>60) 12/17/24 08:42 BUN/Creatinine Ratio 22.7 RATIO (10-20) H 12/17/24 08:42 Glucose 146 mg/dL (70-99) H 12/17/24 08:42 Goal Trough Goal Trough: 15-20 mcg/mL Pharmacy Plan for Drug Dosing Pharmacy Plan for Drug Dosing: NEW START IV VANCOMYCIN Consulting Physician: Dr. Castro Indication: Septic arthritis Goal Trough: 15-20 SrCr: 0.79 CrCl: 75mL/min Comments: patient had initial dose in ED of 2g IV x1 12/17/24. NOTE: ALL DOSES OF VANCOMYCIN TO BE SLOWED DOWN AND RAN AT HALF THE NORMAL RATE. MONITOR FOR S/S ALLERGIC/INFUSION REACTIONS Vancomycin Dose: 1250mg IV Q12hr to start 12/18/24 @0000. Rate decreased to 83 ml/hr (1/2 the normal rate). Pending Level: 12/18/24 @2330 Pharmacy Service will continue to monitor and adjust dosing as required. 12/17/242 <Electronically signed by Mary Ann Mendez > Date _ Mary Ann Mendez Cosigner Signature (if applicable): Date CC: ~ Signed [facility] Work Phone: [phone]) 338-951605-16-2025 Consult note Author [facility] Note Date/Time December 17, 2024 3:47p [facility] Medical Records Department [address] [place] [address] Consultation - Surgical 12/17/24 1055 MR#: [id number] Acct: [id number] Name: KALEELIZABETH A Rep #:[id number] : 1950 74 From: Kevan Jama MD PCP: Dr. Alejandro Rosales MD Status:ADM IN Location: [place] [id number] Assessment & Plan Assessment/Plan (1) Acute pain of right wrist: PLAN: Plan #Right wrist pain and swelling (agree with differential of potential right wristseptic arthritis versus inflammatory arthritis) * Agree with broad-spectrum antibiotics * Follow-up wrist aspirate for diagnosis * N.p.o. at midnight * Elevate right upper extremity * Plastics will follow HPI Consult Data Date of Consult: 12/17/24 HPI Narrative HPI Narrative: Elizabeth Henley is a delightful 74-year-old female with past medical history of atrial fibrillation on Coumadin whom I have seen previously for left ring fingerswelling and potential hematoma that improved with rest and elevation earlier this past winter who presents today with acute onset right handed wrist pain. The wrist pain started approximately 10:30 AM yesterday and has been getting worse ever since. On presentation to the emergency department, the the ED physician today aspirated the right wrist out of concern for septic wrist and obtained 1/2 cc of clear yellow fluid. Today in the emergency department she has stable vital signs. Her white blood cell count is within normal limits at 8.2. She reports sharp severe pain in theright upper extremity worsened by movements and improved with rest and elevation. Her hemoglobin A1c is 6.6 Of note the patient has been recovering from a stroke over the past month (she was transferred to [facility] last month). Of note she has no history of gout. She does not report any changes in her dietrecently [facility] Medical History Pulmonary hypertension Colon cancer Mitral stenosis Gout (HFpEF) heart failure with preserved ejection fraction Hypothyroidism Noncompliance with medication regimen Pre-op evaluation Obesity (BMI 30.0-34.9) Hypokalemia Abnormal gastrointestinal PET scan Contusion Subtherapeutic international normalized ratio (INR) Stroke/cerebrovascular accident Post-menopausal Thyroid disease Diabetes TIA (transient ischemic attack) Dietary restriction Diarrhea Gastric reflux History of edema History of irregular heartbeat Cardiology follow-up encounter Cancer Colonic mass Elevated TSH Anemia Wears glasses Wears dentures Depression Bruising Arthritis Walker as ambulation aid Ambulates with cane Easy bruising Former smoker COPD (chronic obstructive pulmonary disease) Shortness of breath on exertion History of echocardiogram Chronic anticoagulation PAD (peripheral artery disease) History of rheumatic fever as a child History of anxiety PFO with atrial septal aneurysm Atrial thrombus CVA (cerebral vascular accident) (~2006) Essential hypertension Chronic combined systolic and diastolic heart failure Home Medications ?Medication ?Instructions ?Recorded ?Last Taken ?Type acetaminophen 325 mg tablet 650 mg (2 x 325 mg) PO TID PRN 11/25/24 12/17/24 Rx fever/pain #1 TAB albuterol sulfate 90 mcg/actuation 2 puff inhalation Q 4H PRN Wheezing 11/25/24 Unknown Rx aerosol inhaler #1 g dapagliflozin propanediol 10 mg 10 mg PO DAILY dm #30 tabs 11/25/24 12/17/24 Rx tablet (Farxiga) fluticasone fur. 200 mcg-umeclid 1 inh inhalation MOE Y sob #1 inh 11/25/24 Unknown Rx 62.5 mcg-vilant 25 mcg inhalat.powder (Trelegy Ellipta) fluticasone propionate 50 2 spray intranasal DAILY Unknown Rx mcg/actuation nasal congestion #1 inh spray,suspension levothyroxine 88 mcg tablet 88 mcg PO DAILY THYROID #3 0 tabs 11/25/24 12/17/24 Rx (Euthyrox) apixaban 5 mg tablet (Eliquis) 5 mg PO BID blood thinn er #60 tabs 12/07/24 12/17/24 Rx atorvastatin 40 mg tablet 40 mg PO QHS cholesterol #30 tabs 12/07/24 12/16/24 Rx Allergy/AdvReac Type Severity Reaction Status Date / Time codeine Allergy Severe anaphylaxis Verified 12/17/24 08:16 Family History Father Myocardial infarction Cancer lung CVA (cerebral vascular accident) Mother Colon cancer Brother Diabetes CAD (coronary artery disease) open heart surgery Surgical History Hx of right hemicolectomy S/P right hemicolectomy Hx of colonoscopy History of hysterectomy History of appendectomy History of cholecystectomy Social History household members: other details: 22 year old grandson lives with her, but he works nights. Smoking Status: Former smoker how long ago did patient quit smokin years ago alcohol intake: never substance use type: does not use caffeine: Yes Type: tea Number of servings: 2 Physical Exam Narrative Right upper Extremity Inspection: Some swelling in the right wrist but no overlying redness. No signsof induration or any crepitus. No signs of ascending infection Palpation: Exquisite tenderness of the right wrist. There is positive pain withaxial loading to the right wrist Motor: Able to bend and extend all MP, PIP, and DIP joints. Sensory: Intact to light touch on the radial and ulnar borders. Vascular: Finger tips are warm and well perfused with <2 second capillary refill. Lab / Micro Data 12/17/24 08:42 12/17/24 08:42 Labs: Laboratory Results - last 24 hr 12/17/24 08:42: WBC 8.2, RBC 4.92, Hgb 13.9, Hct 43.0, MCV 87.4, MCH 28.3, MCHC 32.3, RDW Std Deviation 48.6 H, RDW Coeff of Angela 15.1 H, Plt Count 227, MPV 10.2, Immature Gran % (Auto) 0.500, Neut % (Auto) 74.3 H, Lymph % (Auto) 14.9 L,Wolfe % (Auto) 8.6, Eos % (Auto) 1.1, Baso % (Auto) 0.6, Absolute Neuts (auto) 6.1, Absolute Lymphs (auto) 1.23, Nucleated RBC % 0, ESR 48 H, Sodium 136, Potassium 4.0, Chloride 102, Carbon Dioxide 24.6, Anion Gap 10, BUN 18, Creatinine 0.79, Estim Creat Clear Calc 75.70, Est GFR (MDRD) Non-Af 80, BUN/Creatinine Ratio 22.7 H, Glucose 146 H, Calcium 9.6, C-React Prot Ext Range 32.40 H Imaging Radiology Impression Wrist X-Ray 12/17/24 08:27 IMPRESSION: NEGATIVE WRIST Reading Location: [id number] Charges/Coding Visit Charges Office Visits / Consults: 46344 OV L3 New 30min (Patient was seen for a new problem in the emergency department by plastic surgery) 12/17/24 1547 <Electronically signed by Kevan Jama MD> Cosigner Signature (if applicable): CC: Dr. Alejandro Rosales MD~ Signed [facility] Work Phone: 1(658) 275-752505-16-2025 History and physical note [facility] Medical Records Department [address] [place] [address] [place] [address] H&P Exam - Hospitalist 12/17/24 1052 MR#: [id number] Acct: [id number] Name: ELIZABETH HENLEY Rep #:[id number] : 1950 74 From: Shayla Castro MD PCP: Dr. Alejandro Rosales MD Status:ADM [id number] - General General Date of Admission: 12/17/24 Date of Service: 12/17/24 Chief Complaint: right wrist pain HPI Narrative ELIZABETH HENLEY, is a 74 F with a PMH as outlined who presents via the ED on 12/17/2024 with a complaint of right wrist pain. The pain started the day before admission. The pain was worse with movement of the right wrist. She could not flex or extend her wrist. She rated the pain at 10 out of 10. She denied any trauma to the arm or the wrist. She denied any fever or chills, nausea vomitingor any other symptoms. She denies any history of gout. Review of systems otherwise negative. Vitals i the ED were BP of 129/66, [place] of 82, RR of 14 and temp of 97.4F. She wassaturating at 98% on room air. CBC showed wbc of 8.2, hb of 13.9 and platelets of 227. ESR was 48. Chemistry showed sodium of 136, potassium of 4 and bicarb of24.6. Cr was 0.79. CRP was elevated at 32.40. Right wrist x-ray was negative for any acute pathology. She has been admitted to be evaluated for right wrist cellulitis with concern for septic arthritis. She did have right wrist aspiration done in the ED by ED doctor. [facility] Medical History Pulmonary hypertension Colon cancer Mitral stenosis Gout (HFpEF) heart failure with preserved ejection fraction Hypothyroidism Noncompliance with medication regimen Pre-op evaluation Obesity (BMI 30.0-34.9) Hypokalemia Abnormal gastrointestinal PET scan Contusion Subtherapeutic international normalized ratio (INR) Stroke/cerebrovascular accident Post-menopausal Thyroid disease Diabetes TIA (transient ischemic attack) Dietary restriction Diarrhea Gastric reflux History of edema History of irregular heartbeat Cardiology follow-up encounter Cancer Colonic mass Elevated TSH Anemia Wears glasses Wears dentures Depression Bruising Arthritis Walker as ambulation aid Ambulates with cane Easy bruising Former smoker COPD (chronic obstructive pulmonary disease) Shortness of breath on exertion History of echocardiogram Chronic anticoagulation PAD (peripheral artery disease) History of rheumatic fever as a child History of anxiety PFO with atrial septal aneurysm Atrial thrombus CVA (cerebral vascular accident) (~2006) Essential hypertension Chronic combined systolic and diastolic heart failure Home Medications ?Medication ?Instructions ?Recorded ?Last Taken ?Type acetaminophen 325 mg tablet 650 mg (2 x 325 mg) PO TID PRN 11/25/24 12/17/24 Rx fever/pain #1 TAB albuterol sulfate 90 mcg/actuation 2 puff inhalation Q 4H PRN Wheezing 11/25/24 Unknown Rx aerosol inhaler #1 g dapagliflozin propanediol 10 mg 10 mg PO DAILY dm #30 tabs 11/25/24 12/17/24 Rx tablet (Farxiga) fluticasone fur. 200 mcg-umeclid 1 inh inhalation MOE Y sob #1 inh 11/25/24 Unknown Rx 62.5 mcg-vilant 25 mcg inhalat.powder (Trelegy Ellipta) fluticasone propionate 50 2 spray intranasal DAILY Unknown Rx mcg/actuation nasal congestion #1 inh spray,suspension levothyroxine 88 mcg tablet 88 mcg PO DAILY THYROID #3 0 tabs 11/25/24 12/17/24 Rx (Euthyrox) apixaban 5 mg tablet (Eliquis) 5 mg PO BID blood thinn er #60 tabs 12/07/24 12/17/24 Rx atorvastatin 40 mg tablet 40 mg PO QHS cholesterol #30 tabs 12/07/24 12/16/24 Rx Allergy/AdvReac Type Severity Reaction Status Date / Time codeine Allergy Severe anaphylaxis Verified 12/17/24 08:16 Family History Father Myocardial infarction Cancer lung CVA (cerebral vascular accident) Mother Colon cancer Brother Diabetes CAD (coronary artery disease) open heart surgery Surgical History Hx of right hemicolectomy S/P right hemicolectomy Hx of colonoscopy History of hysterectomy History of appendectomy History of cholecystectomy Social History household members: other details: 22 year old grandson lives with her, but he works nights. Smoking Status: Former smoker how long ago did patient quit smokin years ago alcohol intake: never substance use type: does not use caffeine: Yes Type: tea Number of servings: 2 ROS Constitutional Constitutional: Denies anorexia, chills, fatigue, fever(s), malaise or weakness Eyes Eyes: Denies change in vision ENT HEENT: Denies dysphagia or headache(s) Cardiovascular Cardiovascular: Denies chest pain, dyspnea on exertion, edema, lightheadedness, orthopnea, palpitations, paroxysmal nocturnal dyspnea, rapid heart rate or syncope Respiratory/Chest Respiratory/Chest: Denies cough, dyspnea, productive cough, shortness of breath at rest or shortness of breath with exertion Gastrointestinal Gastrointestinal: Denies abdominal pain, constipation, diarrhea, dyspepsia, nausea or vomiting Genitourinary Genitourinary: Denies burning urination, dysuria or urinary frequency Musculoskeletal Musculoskeletal: Reports joint pain Neurologic Neurologic: Denies confusion, dizziness, focal weakness, headache(s) or seizures Psychiatric Psychiatric: Denies anxiety Vital Signs Vital Signs Vital Signs: 12/17/24 08:15 Temperature 97.4 F L Temperature Source Temporal Pulse Rate 82 Respiratory Rate 14 Blood Pressure 129/66 H Blood Pressure Mean 87 Pulse Ox 98 Oxygen Delivery Method Room Air Weight Weight: 212 lb 1.355 oz Body Mass Index (BMI) 33.2 Physical Exam Const alert and oriented x3 Constitutional Narrative: in mild distress due to the wrist pain General Appearance: cooperative HEENT normocephalic, head/scalp atraumatic, hearing grossly normal bilaterally and moist oral mucous membranes Mouth: oral and palatal mucosa normal Eyes PERRL, EOMs intact bilaterally and conjunctivae normal Neck no lymphadenopathy and supple Resp normal respiratory effort, no retractions, no use of accessory muscles and clearto auscultation bilaterally Cardio regular rate, regular rhythm, S1 normal heart sound, S2 normal heart sound and no murmurs GI normal to inspection, nondistended, normoactive bowel sounds, soft to palpation,non-tender and non-distended Extremity Extremity Narrative: writh wrist mildly swollen, with minimal differential warmth, very tender to touch, especially overthe lateral aspect of the wrist. Unable to flex or extendwrist without pain. No erythema. Intact dressing over site of the wrist aspiration Neuro oriented x3, CN's II-XII intact bilaterally, moves all extremities and no focal motor deficits Sensorium / Orientation: awake and alert Motor Exam: strength 5/5 throughout Psych affect normal Results Lab / Micro Data 12/17/24 08:42 12/17/24 08:42 Labs: Laboratory Results - last 24 hr 12/17/24 08:42: WBC 8.2, RBC 4.92, Hgb 13.9, Hct 43.0, MCV 87.4, MCH 28.3, MCHC 32.3, RDW Std Deviation 48.6 H, RDW Coeff of Angela 15.1 H, Plt Count 227, MPV 10.2, Immature Gran % (Auto) 0.500, Neut % (Auto) 74.3 H, Lymph % (Auto) 14.9 L,Wolfe % (Auto) 8.6, Eos % (Auto) 1.1, Baso % (Auto) 0.6, Absolute Neuts (auto) 6.1, Absolute Lymphs (auto) 1.23, Nucleated RBC % 0, ESR 48 H, Sodium 136, Potassium 4.0, Chloride 102, Carbon Dioxide 24.6, Anion Gap 10, BUN 18, Creatinine 0.79, Estim Creat Clear Calc 75.70, Est GFR (MDRD) Non-Af 80, BUN/Creatinine Ratio 22.7 H, Glucose 146 H, Calcium 9.6, C-React Prot Ext Range 32.40 H Imaging Radiology Impression Wrist X-Ray 12/17/24 08:27 IMPRESSION: NEGATIVE WRIST Reading Location: [id number] Assessment & Plan Assessment/Plan (1) Acute pain of right wrist: PLAN: Plan #Right wrist pain and swelling * Concerning for septic arthritis. The swelling has been going on for 1 day. * ED doctor was able to aspirate some fluid from it which will be sent for cell count and culture. * Discussed with plastic surgery wanted patient admitted due to concern for septic arthritis. Will consult plastic surgery. Started on broad-spectrum antibiotics. ESR and CRP elevated. * P.o. Tylenol and p.o. oxycodone as needed for pain. IV morphine as needed for pain. * PT/OT consult * fall precautions * uric acid not elevated, so will hold off on adding on colchicine and steroids. * # History of COPD: Not in exacerbation. Breathing treatments bronchodilators. #Hyperlipidemia: On statin #Type 2 diabetes mellitus: On Farxiga. Insulin sliding scale. Accu-Cheks ACHS. #Hypothyroidism: Synthroid #History of A-fib: On Eliquis DVT prophylaxis: Already on Eliquis Code status: full code * Patient counseled extensively about different types of CODE STATUS including full code, DNR CCA and DNR CCA. Patient elects to be full code. * Total fdza-bb-jptr time 17 minutes. Charges/Coding Visit Charges Inpatient E&M: 63065 Init Hosp L2 12/17/24 1648 Cosigner Signature (if applicable): CC: Dr. Alejandro Rosales MD; Dr. Shayla Castro MD~ Signed ADDENDUM by Dr. Shayla Castro MD on 12/17/24 at 1705 Addendum 17:04 I was notified by patient's nurse that patient complained of itching at the siteof the injection ofthe vancomycin. There was no visible rash. Patient also complained of itching on her scalp. It is unclear whether this is really a reaction to the vancomycin. I did order a dose of IV Benadryl 25 mg x 1. Patient however subsequently fell asleep after that so it is difficult to determine if she still having the itching or otherwise. I did discuss this withpharmacy. Will slow down the rate of the vancomycin administration and monitor patient closely for any further reaction. If she does develop this itching again and or it intensifies, will DC vancomycin and list it as an allergy. 12/17/24 1705 Cosigner Signature (if applicable): cc: Dr. Alejandro Rosales MD; Dr. Shayla Castro MD ~* Signed [facility]05-16-2025 Consult note [facility] Medical Records Department [address] [place] [address] Pharmacokinetic/Renal -Consult 12/17/24 1621 MR#: [id number] Acct: [id number] Name: ELIZABETH HENLEY Velasquez Rep #:[id number] : 1950 74 From: Mary Ann Mendez PCP: Dr. Alejandro Rosales MD Status:ADM IN Y [place] [facility] [id number] Consult Antibiotic Management Pharmacy has been consulted to manage selected antibiotic: Vancomycin Type of Intervention Type of Consult: Suspected Infection Suspected Infection: Other Labs Labs: Sodium 136 mmol/L (133-145) 12/17/24 08:42 Potassium 4.0 mmol/L (3.3-5.1) 12/17/24 08:42 Chloride 102 mmol/L (98-108) 12/17/24 08:42 Carbon Dioxide 24.6 mmol/L (21.0-32.0) 12/17/24 08:42 Anion Gap 10 (5-15) 12/17/24 08:42 BUN 18 mg/dL (4-19) 12/17/24 08:42 Creatinine 0.79 mg/dL (0.70-1.20) 12/17/24 08:42 Est GFR (MDRD) Non-Af 80 (>60) 12/17/24 08:42 BUN/Creatinine Ratio 22.7 RATIO (10-20) H 12/17/24 08:42 Glucose 146 mg/dL (70-99) H 12/17/24 08:42 Goal Trough Goal Trough: 15-20 mcg/mL Pharmacy Plan for Drug Dosing Pharmacy Plan for Drug Dosing: IV VANCOMYCIN Consulting Physician: Dr. Castro Indication: Septic arthritis Goal Trough: 15-20 SrCr: 0.79 CrCl: 75mL/min Comments: patient had initial dose in ED of 2g IV x1 12/17/24. NOTE: ALL DOSES OF VANCOMYCIN TRUDY SLOWED DOWN AND RAN AT HALF THE NORMAL RATE. MONITOR FOR S/S ALLERGIC/INFUSION REACTIONS Vancomycin Dose: 1250mg IV Q12hr to start 12/18/24 @0000. Rate decreased to 83 ml/hr (1/2 the normalrate). Pending Level: 12/18/24 @2330 Pharmacy Service will continue to monitor and adjust dosing as required. 12/17/24 1622 > Date _ Mary Ann Mendez Cosigner Signature (if applicable): Date CC: ~ Signed [facility]05-16-2025 Consult note [facility] Medical Records Department [address] [place] [address] Consultation - Surgical 12/17/24 1055 MR#: [id number] Acct: [id number] Name: ELIZABETH HENLEY Rep #:[id number] : 1950 74 From: Kevan Jama MD PCP: Dr. Alejandro Rosales MD Status:[place] [facility] [place] Assessment & Plan Assessment/Plan (1) Acute pain of right wrist: PLAN: Plan #Right wrist pain and swelling (agree with differential of potential right wristseptic arthritis versus inflammatory arthritis) * Agree with broad-spectrum antibiotics * Follow-up wrist aspirate for diagnosis * N.p.o. at midnight * Elevate right upper extremity * Plastics will follow HPI Consult Data Date of Consult: 12/17/24 HPI Narrative HPI Narrative: Elizabeth Henley is a delightful 74-year-old female with past medical history of atrial fibrillation on Coumadin whom I have seen previously for left ring fingerswelling and potential hematoma that improved with rest and elevation earlier this past winter who presents today with acute onset right handed wrist pain. The wrist pain started approximately 10:30 AM yesterday and has been getting worse ever since. On presentation to the emergency department, the the ED physician today aspirated the right wrist out of concern for septic wrist and obtained 1/2 cc of clear yellow fluid. Today in the emergency department she has stable vital signs. Her white blood cell count is within normal limits at 8.2. She reports sharp severe pain in theright upper extremity worsened by movements and improved with rest and elevation. Her hemoglobin A1c is 6.6 Of note the patient has been recovering from a stroke over the past month (she was transferred to [facility] last month). Of note she has no history of gout. She does not report any changes in her dietrecently [facility] Medical History Pulmonary hypertension Colon cancer Mitral stenosis Gout (HFpEF) heart failure with preserved ejection fraction Hypothyroidism Noncompliance with medication regimen Pre-op evaluation Obesity (BMI 30.0-34.9) Hypokalemia Abnormal gastrointestinal PET scan Contusion Subtherapeutic international normalized ratio (INR) Stroke/cerebrovascular accident Post-menopausal Thyroid disease Diabetes TIA (transient ischemic attack) Dietary restriction Diarrhea Gastric reflux History of edema History of irregular heartbeat Cardiology follow-up encounter Cancer Colonic mass Elevated TSH Anemia Wears glasses Wears dentures Depression Bruising Arthritis Walker as ambulation aid Ambulates with cane Easy bruising Former smoker COPD (chronic obstructive pulmonary disease) Shortness of breath on exertion History of echocardiogram Chronic anticoagulation PAD (peripheral artery disease) History of rheumatic fever as a child History of anxiety PFO with atrial septal aneurysm Atrial thrombus CVA (cerebral vascular accident) (~2006) Essential hypertension Chronic combined systolic and diastolic heart failure Home Medications ?Medication ?Instructions ?Recorded ?Last Taken ?Type acetaminophen 325 mg tablet 650 mg (2 x 325 mg) PO TID PRN 11/25/24 12/17/24 Rx fever/pain #1 TAB albuterol sulfate 90 mcg/actuation 2 puff inhalation Q 4H PRN Wheezing 11/25/24 Unknown Rx aerosol inhaler #1 g dapagliflozin propanediol 10 mg 10 mg PO DAILY dm #30 tabs 11/25/24 12/17/24 Rx tablet (Farxiga) fluticasone fur. 200 mcg-umeclid 1 inh inhalation MOE Y sob #1 inh 11/25/24 Unknown Rx 62.5 mcg-vilant 25 mcg inhalat.powder (Trelegy Ellipta) fluticasone propionate 50 2 spray intranasal DAILY Unknown Rx mcg/actuation nasal congestion #1 inh spray,suspension levothyroxine 88 mcg tablet 88 mcg PO DAILY THYROID #3 0 tabs 11/25/24 12/17/24 Rx (Euthyrox) apixaban 5 mg tablet (Eliquis) 5 mg PO BID blood thinn er #60 tabs 12/07/24 12/17/24 Rx atorvastatin 40 mg tablet 40 mg PO QHS cholesterol #30 tabs 12/07/24 12/16/24 Rx Allergy/AdvReac Type Severity Reaction Status Date / Time codeine Allergy Severe anaphylaxis Verified 12/17/24 08:16 Family History Father Myocardial infarction Cancer lung CVA (cerebral vascular accident) Mother Colon cancer Brother Diabetes CAD (coronary artery disease) open heart surgery Surgical History Hx of right hemicolectomy S/P right hemicolectomy Hx of colonoscopy History of hysterectomy History of appendectomy History of cholecystectomy Social History household members: other details: 22 year old grandson lives with her, but he works nights. Smoking Status: Former smoker how long ago did patient quit smokin years ago alcohol intake: never substance use type: does not use caffeine: Yes Type: tea Number of servings: 2 Physical Exam Narrative Right upper Extremity Inspection: Some swelling in the right wrist but no overlying redness. No signsof induration or anycrepitus. No signs of ascending infection Palpation: Exquisite tenderness of the right wrist. There is positive pain withaxial loading to theright wrist Motor: Able to bend and extend all MP, PIP, and DIP joints. Sensory: Intact to light touch on the radial and ulnar borders. Vascular: Finger tips are warm and well perfused with <2 second capillary refill. Lab / Micro Data 12/17/24 08:42 12/17/24 08:42 Labs: Laboratory Results - last 24 hr 12/17/24 08:42: WBC 8.2, RBC 4.92, Hgb 13.9, Hct 43.0, MCV 87.4, MCH 28.3, MCHC 32.3, RDW Std Deviation 48.6 H, RDW Coeff of Angela 15.1 H, Plt Count 227, MPV 10.2, Immature Gran % (Auto) 0.500, Neut % (Auto) 74.3 H, Lymph % (Auto) 14.9 L,Wolfe % (Auto) 8.6, Eos % (Auto) 1.1, Baso % (Auto) 0.6, Absolute Neuts (auto) 6.1, Absolute Lymphs (auto) 1.23, Nucleated RBC % 0, ESR 48 H, Sodium 136, Potassium 4.0, Chloride 102, Carbon Dioxide 24.6, Anion Gap 10, BUN 18, Creatinine 0.79, Estim Creat Clear Calc 75.70, Est GFR (MDRD) Non-Af 80, BUN/Creatinine Ratio 22.7 H, Glucose 146 H, Calcium 9.6, C-React Prot Ext Range 32.40 H Imaging Radiology Impression Wrist X-Ray 12/17/24 08:27 IMPRESSION: NEGATIVE WRIST Reading Location: [facility] Charges/Coding Visit Charges Office Visits / Consults: 18455 OV L3 New 30min (Patient was seen for a new problem in the emergency department by plastic surgery) 12/17/24 1547 Cosigner Signature (if applicable): CC: Dr. Alejandro Rosales MD~ Signed [facility]05-16-2025 Discharge summary Author Tang Mendiola [facility] Note Date/Time December 17, 2024 11:12 am [facility] Medical Records Department [address] [facility] [place] [address] Emergency Department Summary 12/17/24 MR#: [id number] Acct: [id number] Name: ELIZABETH HENLEY Rep #:[id number] : 1950 74 From: Tang Norris PCP: Dr. Alejandro Rosales MD Status:REG ER Location: ED HPI History of Present Illness Chief Complaint: Upper Extremity Injury Informant: patient and family Narrative Narrative: Paftk-flao-taxdsgoy female here with daughter for evaluation nontraumatic right wrist pain started at 12:30 AM yesterday. No strenuous activities yesterday. She is recovering from a stroke last month. She was transferred to [facility] due to M1 occlusion and there is no intervention. She was transition over from warfarin to Eliquis. Paroxysmal A-fib history she was subtherapeutic when she had the stroke. Daughter reports couple months ago had moderate swelling to theleft ring finger put on antibiotics and resolved. Did follow-up with plastic/hand Dr. Jama, no surgical intervention. Denies fever or chills. Painwith movement of the wrist. She is a diabetic. Prior similar symptoms: No PFSH PFSH Medical History Pulmonary hypertension Colon cancer Mitral stenosis Gout (HFpEF) heart failure with preserved ejection fraction Hypothyroidism Noncompliance with medication regimen Pre-op evaluation Obesity (BMI 30.0-34.9) Hypokalemia Abnormal gastrointestinal PET scan Contusion Subtherapeutic international normalized ratio (INR) Stroke/cerebrovascular accident Post-menopausal Thyroid disease Diabetes TIA (transient ischemic attack) Dietary restriction Diarrhea Gastric reflux History of edema History of irregular heartbeat Cardiology follow-up encounter Cancer Colonic mass Elevated TSH Anemia Wears glasses Wears dentures Depression Bruising Arthritis Walker as ambulation aid Ambulates with cane Easy bruising Former smoker COPD (chronic obstructive pulmonary disease) Shortness of breath on exertion History of echocardiogram Chronic anticoagulation PAD (peripheral artery disease) History of rheumatic fever as a child History of anxiety PFO with atrial septal aneurysm Atrial thrombus CVA (cerebral vascular accident) (~2006) Essential hypertension Chronic combined systolic and diastolic heart failure Home Medications ?Medication ?Instructions ?Recorded ?Last Taken ?Type acetaminophen 325 mg tablet 650 mg (2 x 325 mg) PO TID PRN 11/25/24 12/17/24 Rx fever/pain #1 TAB albuterol sulfate 90 mcg/actuation 2 puff inhalation Q 4H PRN Wheezing 11/25/24 Unknown Rx aerosol inhaler #1 g dapagliflozin propanediol 10 mg 10 mg PO DAILY dm #30 tabs 11/25/24 12/17/24 Rx tablet (Farxiga) fluticasone fur. 200 mcg-umeclid 1 inh inhalation MOE Y sob #1 inh 11/25/24 Unknown Rx 62.5 mcg-vilant 25 mcg inhalat.powder (Trelegy Ellipta) fluticasone propionate 50 2 spray intranasal DAILY Unknown Rx mcg/actuation nasal congestion #1 inh spray,suspension levothyroxine 88 mcg tablet 88 mcg PO DAILY THYROID #3 0 tabs 11/25/24 12/17/24 Rx (Euthyrox) apixaban 5 mg tablet (Eliquis) 5 mg PO BID blood thinn er #60 tabs 12/07/24 12/17/24 Rx atorvastatin 40 mg tablet 40 mg PO QHS cholesterol #30 tabs 12/07/24 12/16/24 Rx Allergy/AdvReac Type Severity Reaction Status Date / Time codeine Allergy Severe anaphylaxis Verified 12/17/24 08:16 Family History Father Myocardial infarction Cancer lung CVA (cerebral vascular accident) Mother Colon cancer Brother Diabetes CAD (coronary artery disease) open heart surgery Surgical History Hx of right hemicolectomy S/P right hemicolectomy Hx of colonoscopy History of hysterectomy History of appendectomy History of cholecystectomy Social History household members: other details: 22 year old grandson lives with her, but he works nights. Smoking Status: Former smoker how long ago did patient quit smokin years ago alcohol intake: never substance use type: does not use caffeine: Yes Type: tea Number of servings: 2 ROS ROS ED Constitutional Constitutional ED: Denies fever(s) Cardiovascular Cardiovascular: Denies chest pain Respiratory/Chest Respiratory/Chest: Denies cough Gastrointestinal Gastrointestinal: Denies diarrhea or vomiting Musculoskeletal Musculoskeletal: Reports other Details: Right wrist pain. Integumentary Denies rash or wounds Neurologic Neurologic: Denies weakness EXAM Physical Exam Const Vital Signs: 12/17/24 08:15 Temperature 97.4 F L Temperature Source Temporal Pulse Rate 82 Respiratory Rate 14 Blood Pressure 129/66 H Blood Pressure Mean 87 Pulse Ox 98 Oxygen Delivery Method Room Air Positive well nourished and well developed Constitutional Narrative: Nontoxic General Appearance ED: well developed HEENT normocephalic and atraumatic Eyes General Eye ED: Yes normal appearance of both eyes Neck full ROM Resp normal respiratory effort and normal air movement Cardio regular rate and regular rhythm GI soft to palpation Extremity Extremity Narrative: Right upper extremity: No elbow tenderness. Small bruise on the distal dorsal forearm nontender. Patient was pointing at pain at the ulnar styloid however onpalpation no pain. Pain with range of motion of the wrist there is no redness no warmth slight swelling noted. No snuffbox tenderness. No hand tenderness orswelling. Neuro oriented x3 Skin no wounds Skin Narrative: See above MDM MDM MDM Narrative Medical decision making narrative: Interventions / MDM: Differential diagnosis: Right wrist pain, septic wrist, history of diabetes, history of A-fib Diagnosis considered but do not suspect: N/A My EKG interpretation: Rate controlled A-fib 41, no ST changes. Imaging independently reviewed and interpreted by myself: Right wrist x-ray 3 views: No acute process also read by radiology. External documents reviewed: N/A Test considered but not ordered:N/A ED course: Patient nontraumatic pain to the wrist increasing pain with movement. Slight swelling no redness or warmth. She is a diabetic. She is on Eliquis. Will check x-ray, will send for labs including inflammatory markers. Tylenol ordered. 09: X-ray no effusion noted. Labs white count normal slightly elevated inflammatory markers with ESR 48 CRP 32. There is similar elevation from September this year currently from her finger infection ordered outpatient. Still with pain with movement, discussed with patient risks and benefits with aspiration especially she been on Eliquis for bleeding and infections, includingdry tap. She would like to pursue further rule out. Consent will be obtained for planned attempt at aspiration. She is ordered for oxycodone for which she has tolerated previously. 1020: Written consent obtained risk and benefits discussed with patient. Timeout performed. Sterile precautions were taken. Patient's arm was laid on table with Chux. Betadine prep with dorsal aspect of the wrist. Sterile gloves. Dorsal approach on the ulnar aspect of the wrist into the joint using 25-gauge 1-1/2 inch needle, approximately 0.5 cc yellow fluid was obtained. No bloody fluid. Patient uncomfortable during procedure however tolerated well. Minimal fluid aspirated yellow in nature, will send for lab for Gram stain and culture. Is not enough fluid for cell counts or crystals. 1042: I spoke with plastic/hand Dr. Jama, knows the patient from outpatient visit. Discussed history findings with wrist aspiration. States with wrist typically minimal aspiration of fluid can be obtained. However this is pending. He recommends with concerns for septic wrist, broad-spectrum antibiotics admission to medicine and he will follow-up closely. Discussed she is on Eliquis with her recent LVO and paroxysmal A-fib, will continue Eliquis at this time. Therefore I will discuss with hospitalist service. I spoke with hospitalist Dr. Castro for admission. EKG returned rate controlled A-fib at 41. Re-evaluation: stable Disposition discussed with patient/family/significant other: Patient and daughter Case discussed with consulting clinician: Plastic/hand surgeon, hospitalist This note was generated with [employer] websiteation software. It may contain incorrectwords, spelling, and punctuation that were not noted in checking the note beforesigning. Discharge Plan Dx/Rx/DC Orders Clinical Impression: Acute pain of right wrist, Chronic anticoagulation, History of diabetes mellitus, Atrial fibrillation Disposition Disposition: Acute Care Hospital [facility] What to do if you have Problems For any increased pain, shortness of breath, bleeding, nausea or vomiting, chestpain, or any unexpected problems, contact your Primary Care Provider. Call [facility] ([phone]) or report to the closest Emergency Room. Call 911 if necessary. 12/17/24 1112 <Electronically signed by Tang Norris> Cosigner Signature (if applicable): CC: Dr. Alejandro Rosales MD ~ Signed [facility] Work Phone: [phone] 412-932405-16-2025 Discharge summary [facility] Medical Records Department [address] [place] [address] Emergency Department Summary 12/17/24 MR#: [id number] Acct: [id number] Name: ELIZABETH HENLEY Rep #:[id number] : 1950 74 From: Tang Norris PCP: Dr. Alejandro Rosales MD Status:REG ER Location: ED HPI History of Present Illness Chief Complaint: Upper Extremity Injury Informant: patient and family Narrative Narrative: Zicbc-jhsk-jdcqczbo female here with daughter for evaluation nontraumatic right wrist pain started at 12:30 AM yesterday. No strenuous activities yesterday. She is recovering from a stroke last month. She was transferred to [facility] due to M1 occlusion and there is no intervention. She was transition over from warfarin to Eliquis. Paroxysmal A-fib history she was subtherapeutic when she had the stroke. Daughter reports couple months ago had moderate swelling to theleft ring finger put on antibioticsand resolved. Did follow-up with plastic/hand Dr. Jama, no surgical intervention. Denies fever or chills. Painwith movement of the wrist. She is a diabetic. Prior similar symptoms: No PFSH PFS Medical History Pulmonary hypertension Colon cancer Mitral stenosis Gout (HFpEF) heart failure with preserved ejection fraction Hypothyroidism Noncompliance with medication regimen Pre-op evaluation Obesity (BMI 30.0-34.9) Hypokalemia Abnormal gastrointestinal PET scan Contusion Subtherapeutic international normalized ratio (INR) Stroke/cerebrovascular accident Post-menopausal Thyroid disease Diabetes TIA (transient ischemic attack) Dietary restriction Diarrhea Gastric reflux History of edema History of irregular heartbeat Cardiology follow-up encounter Cancer Colonic mass Elevated TSH Anemia Wears glasses Wears dentures Depression Bruising Arthritis Walker as ambulation aid Ambulates with cane Easy bruising Former smoker COPD (chronic obstructive pulmonary disease) Shortness of breath on exertion History of echocardiogram Chronic anticoagulation PAD (peripheral artery disease) History of rheumatic fever as a child History of anxiety PFO with atrial septal aneurysm Atrial thrombus CVA (cerebral vascular accident) (~2006) Essential hypertension Chronic combined systolic and diastolic heart failure Home Medications ?Medication ?Instructions ?Recorded ?Last Taken ?Type acetaminophen 325 mg tablet 650 mg (2 x 325 mg) PO TID PRN 11/25/24 12/17/24 Rx fever/pain #1 TAB albuterol sulfate 90 mcg/actuation 2 puff inhalation Q 4H PRN Wheezing 11/25/24 Unknown Rx aerosol inhaler #1 g dapagliflozin propanediol 10 mg 10 mg PO DAILY dm #30 tabs 11/25/24 12/17/24 Rx tablet (Farxiga) fluticasone fur. 200 mcg-umeclid 1 inh inhalation MOE Y sob #1 inh 11/25/24 Unknown Rx 62.5 mcg-vilant 25 mcg inhalat.powder (Trelegy Ellipta) fluticasone propionate 50 2 spray intranasal DAILY Unknown Rx mcg/actuation nasal congestion #1 inh spray,suspension levothyroxine 88 mcg tablet 88 mcg PO DAILY THYROID #3 0 tabs 11/25/24 12/17/24 Rx (Euthyrox) apixaban 5 mg tablet (Eliquis) 5 mg PO BID blood thinn er #60 tabs 12/07/24 12/17/24 Rx atorvastatin 40 mg tablet 40 mg PO QHS cholesterol #30 tabs 12/07/24 12/16/24 Rx Allergy/AdvReac Type Severity Reaction Status Date / Time codeine Allergy Severe anaphylaxis Verified 12/17/24 08:16 Family History Father Myocardial infarction Cancer lung CVA (cerebral vascular accident) Mother Colon cancer Brother Diabetes CAD (coronary artery disease) open heart surgery Surgical History Hx of right hemicolectomy S/P right hemicolectomy Hx of colonoscopy History of hysterectomy History of appendectomy History of cholecystectomy Social History household members: other details: 22 year old grandson lives with her, but he works nights. Smoking Status: Former smoker how long ago did patient quit smokin years ago alcohol intake: never substance use type: does not use caffeine: Yes Type: tea Number of servings: 2 ROS ROS ED Constitutional Constitutional ED: Denies fever(s) Cardiovascular Cardiovascular: Denies chest pain Respiratory/Chest Respiratory/Chest: Denies cough Gastrointestinal Gastrointestinal: Denies diarrhea or vomiting Musculoskeletal Musculoskeletal: Reports other Details: Right wrist pain. Integumentary Denies rash or wounds Neurologic Neurologic: Denies weakness EXAM Physical Exam Const Vital Signs: 12/17/24 08:15 Temperature 97.4 F L Temperature Source Temporal Pulse Rate 82 Respiratory Rate 14 Blood Pressure 129/66 H Blood Pressure Mean 87 Pulse Ox 98 Oxygen Delivery Method Room Air Positive well nourished and well developed Constitutional Narrative: Nontoxic General Appearance ED: well developed HEENT normocephalic and atraumatic Eyes General Eye ED: Yes normal appearance of both eyes Neck full ROM Resp normal respiratory effort and normal air movement Cardio regular rate and regular rhythm GI soft to palpation Extremity Extremity Narrative: Right upper extremity: No elbow tenderness. Small bruise on the distal dorsal forearm nontender. Patient was pointing at pain at the ulnar styloid however onpalpation no pain. Pain with range of motion of the wrist there is no redness no warmth slight swelling noted. No snuffbox tenderness. No handtenderness orswelling. Neuro oriented x3 Skin no wounds Skin Narrative: See above MDM MDM MDM Narrative Medical decision making narrative: Interventions / MDM: Differential diagnosis: Right wrist pain, septic wrist, history of diabetes, history of A-fib Diagnosis considered but do not suspect: N/A My EKG interpretation: Rate controlled A-fib 41, no ST changes. Imaging independently reviewed and interpreted by myself: Right wrist x-ray 3 views: No acute process also read by radiology. External documents reviewed: N/A Test considered but not ordered:N/A ED course: Patient nontraumatic pain to the wrist increasing pain with movement. Slight swelling noredness or warmth. She is a diabetic. She is on Eliquis. Will check x-ray, will send for labs including inflammatory markers. Tylenol ordered. 951: X-ray no effusion noted. Labs white count normal slightly elevated inflammatory markers with ESR 48 CRP 32. There is similar elevation from September this year currently from her finger infection ordered outpatient. Still with pain with movement, discussed with patient risks and benefits with a spiration especially she been on Eliquis for bleeding and infections, includingdry tap. She would like to pursue further rule out. Consent will be obtained for planned attempt at aspiration. She is ordered for oxycodone for which she has tolerated previously. 1020: Written consent obtained risk and benefits discussed with patient. Timeout performed. Sterileprecautions were taken. Patient's arm was laid on table with Chux. Betadine prep with dorsal aspectof the wrist. Sterile gloves. Dorsal approach on the ulnar aspect of the wrist into the joint [id number] 1-1/2 inch needle, approximately 0.5 cc yellow fluid was obtained. No bloody fluid. Patient uncomfortable during procedure however tolerated well. Minimal fluid aspirated yellow in nature, will send for lab for Gram stain and culture. Is not enough fluid for cell counts or crystals. 1042: I spoke with plastic/hand Dr. Jama, knows the patient from outpatient visit. Discussed history findings with wrist aspiration. States with wrist typically minimal aspiration of fluid can be obtained. However this is pending. He recommends with concerns for septic wrist, broad-spectrum antibiotics admission to medicine and he will follow-up closely. Discussed she is on Eliquis with her recent LVO and paroxysmal A-fib, will continue Eliquis at this time. Therefore I will discuss with hospitalist service. I spoke with hospitalist Dr. Castro for admission. EKG returned rate controlled A-fib at 41. Re-evaluation: stable Disposition discussed with patient/family/significant other: Patient and daughter Case discussed with consulting clinician: Plastic/hand surgeon, hospitalist This note was generated with Fanli websiteation software. It may contain incorrectwords, spelling, and punctuation that were not noted in checking the note beforesigning. Discharge Plan Dx/Rx/DC Orders Clinical Impression: Acute pain of right wrist, Chronic anticoagulation, History of diabetes mellitus, Atrial fibrillation Disposition Disposition: Acute Care Hospital [facility] What to do if you have Problems For any increased pain, shortness of breath, bleeding, nausea or vomiting, chestpain, or any unexpected problems, contact your Primary Care Provider. Call [facility] ([phone]) or report tothe closest Emergency Room. Call 911 if necessary. 12/17/24 1112 Cosigner Signature (if applicable): CC: Dr. Alejandro Rosales MD ~ Signed [facility]05-16-2025 Radiology Diagnostic study note [facility] [address] [place] [address] Wrist min 3 Views MR#: [id number] Acct: [id number] Name: ELIZABETH HENLYE Rep #: [id number] : 1950 F 74 From: Kvng Singer MD PCP: Dr. Alejandro Rosales MD Status: REG ER Study:Wrist min 3 Views Date of Exam: Exam# [id number] Ordering Dr: Tang Mendiola DO PROCEDURE: WRIST MIN 3 VIEWS 12/17/2024 REASON FOR EXAM: PAIN Medial pain. No history of trauma. TECHNIQUE: 3 view(s) of the right wrist COMPARISON: None FINDINGS: Bones: No visible fracture. No suspicious bone lesion. Joints: Normal alignment. Soft tissues: Soft tissues are unremarkable. Other: RAD/Wrist min 3 Views IMPRESSION: NEGATIVE WRIST Reading Location: [id number] CC: Dr. Alejandro Rosales MD; Dr. 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 Pt is being discharged to [facility] today at [facility]. Report was called, and paperwork was faxed. Pt's daughter was provided with AVS, as well. They are aware that Eliquis will start 11/12. Pt has all belongings packed and ready for discharge. She is being driven to facility by her daughter and facility is aware of this. 1430 - Pt was transported off unit via w/c by GRANULATING BLENDER. Daughter to transport to facility. 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 Pt is being discharged to [facility] today at [facility]. Report was called, and paperwork was faxed. Pt's daughter was provided with AVS, as well. They are aware that Eliquis will start 11/12. Pt has all belongings packed and ready for discharge. She is being driven to facility by her daughter and facility is aware of this. 1430 - Pt was transported off unit via w/c by [employer] BL[employer]. Daughter to transport to facility. * Nursing Notes - Kennedy Key RN - 11/11/2024 2:11 PM EDT Stroke patient education has been reviewed and all required elements are complete and personalized. Cosigned by Kelley Larios RN at 11/11/2024 4:00 PM EDT * Plan of Care - Ramonita Pappas, PT - 11/11/2024 10:52 AM EDT Problem: PT - General Goals Goal: Sit <-> Stand Transfers - Patient will perform sit to/from stand transfers with standbyassistance and least restrictive device in order to improve functional mobility and safety. Outcome: Progressing Goal: Ambulation - Patient will ambulate 150 feet with standby assistance and least restrictive device to improve ability to safely navigate home and community. Outcome: Progressing * Plan of Care - Loretta Parker RN - 11/11/2024 1:10 AM EDT Problem: Adult Inpatient Plan of Care Goal: Plan of Care Review Outcome: Progressing Goal: Patient-Specific Goal (Individualized) Outcome: Progressing Goal: Absence of Hospital-Acquired Illness or Injury Outcome: Progressing Goal: Optimal Comfort and Wellbeing Outcome: Progressing Goal: Readiness for Transition of Care Outcome: Progressing Problem: Stroke, Ischemic (Includes Transient Ischemic Attack) Goal: Optimal Coping Outcome: Progressing Goal: Effective Bowel Elimination Outcome: Progressing Goal: Optimal Cerebral Tissue Perfusion Outcome: Progressing Goal: Optimal Cognitive Function Outcome: Progressing Goal: Improved Communication Skills Outcome: Progressing Goal: Optimal Functional Ability Outcome: Progressing Goal: Optimal Nutrition Intake Outcome: Progressing Goal: Effective Oxygenation and Ventilation Outcome: Progressing Goal: Improved Sensorimotor Function Outcome: Progressing Goal: Safe and Effective Swallow Outcome: Progressing Goal: Effective Urinary Elimination Outcome: Progressing * Plan of Care - YUMIKO Fowler - 11/10/2024 11:43 AM EDT Problem: LICENSED VETERINARY TECHNICIAN - Language Goal: Command Following - Patient will complete 1-step commands with 70% accuracy with fading cues in order to improve direction following for functional gains in ability to participate more independently in care Outcome: Ongoing Goal: Yes/No Response - Patient will answer yes/no questions related to current situation/environment with 70% accuracy with fading cues in order to improve ability to answer questions related to care Outcome: Ongoing Goal: Communicate Wants/Needs - Patient will independently communicate basic wants/needs via any communication modality on at least 3 opportunities to improve functional communication and ability to direct care Outcome: Ongoing Problem: LICENSED VETERINARY TECHNICIAN - Cognition Goal: Ongoing Assessment - Patient will participate in ongoing dynamic assessment of motor speech, expressive/receptive language, and cognitive- linguistic skills across 1 session to better assess deficits and most appropriately guide LICENSED VETERINARY TECHNICIAN plan of care Outcome: Ongoing * Plan of Care - Abhijeet Yeung, PT - 11/10/2024 10:28 AM EDT Problem: PT - General Goals Goal: Sit <-> Stand Transfers - Patient will perform sit to/from stand transfers with standbyassistance and least restrictive device in order to improve functional mobility and safety. Outcome: Progressing Goal: Ambulation - Patient will ambulate 150 feet with standby assistance and least restrictive device to improve ability to safely navigate home and community. Outcome: Progressing Problem: PT - Outcome Measure Goals Goal: 5x Sit to Stand - Patient will perform 5x Sit to dining room server 15 seconds or less in order to demonstrate reduced fall risk. Outcome: Progressing * Plan of Care - Tiarra Tello OT - 11/10/2024 10:11 AM EDT Problem: OT - ADLs Goal: Lower Body Dressing - Patient will complete lower body dressing tasks with supervision using adaptive equipment/compensatory strategies as needed for improved ability to complete self-care activities. Outcome: Progressing Goal: Grooming - Patient will complete grooming in standing with supervision for improved ability to safely complete ADLs. Outcome: Progressing Goal: Bathing - Patient will perform full body bathing routine with supervision while seated for improved ability to complete self-care activities Outcome: Progressing Problem: OT - Transfers Goal: Transfers Toilet/ Bedside Commode - Patient will transfer to/from toilet/bedside commode withsupervision for improved ability to safely complete ADLs. Outcome: Progressing Problem: OT - Balance Goal: Balance - Standing - Patient will perform 10 minutes of functional task in standing with supervision and good balance to promote safety and improved balance required for self-care activities. Outcome: Progressing Problem: OT - Cognition Goal: Cognition - Command Following - Patient will follow 75% of single commands during ADL task. Outcome: Progressing Goal: Cognition Simple ADL - Patient will demonstrate improved cognition, completing simple ADL task for 5 minutes with no greater than min cues required to maintain attention. Outcome: Progressing Problem: OT - Vision Goal: Visual Scanning Functional Mobility - Patient will use appropriate visual scanning techniqueswith no greater than min cues during functional mobility to promote safety and success during dailyroutine. Outcome: Progressing * Plan of Care - Loretta Parker RN - 11/10/2024 12:40 AM EDT Problem: Adult Inpatient Plan of Care Goal: Plan of Care Review Outcome: Progressing Goal: Patient-Specific Goal (Individualized) Outcome: Progressing Goal: Absence of Hospital-Acquired Illness or Injury Outcome: Progressing Goal: Optimal Comfort and Wellbeing Outcome: Progressing Goal: Readiness for Transition of Care Outcome: Progressing Problem: Stroke, Ischemic (Includes Transient Ischemic Attack) Goal: Optimal Coping Outcome: Progressing Goal: Effective Bowel Elimination Outcome: Progressing Goal: Optimal Cerebral Tissue Perfusion Outcome: Progressing Goal: Optimal Cognitive Function Outcome: Progressing Goal: Improved Communication Skills Outcome: Progressing Goal: Optimal Functional Ability Outcome: Progressing Goal: Optimal Nutrition Intake Outcome: Progressing Goal: Effective Oxygenation and Ventilation Outcome: Progressing Goal: Improved Sensorimotor Function Outcome: Progressing Goal: Safe and Effective Swallow Outcome: Progressing Goal: Effective Urinary Elimination Outcome: Progressing * Plan of Care - Tiarra Tello OT - 11/09/2024 11:31 AM EDT Problem: OT - ADLs Goal: Lower Body Dressing - Patient will complete lower body dressing tasks with supervision using adaptive equipment/compensatory strategies as needed for improved ability to complete self-care activities. Outcome: Ongoing Goal: Grooming - Patient will complete grooming in standing with supervision for improved ability to safely complete ADLs. Outcome: Ongoing Goal: Bathing - Patient will perform full body bathing routine with supervision while seated for improved ability to complete self-care activities Outcome: Ongoing Problem: OT - Transfers Goal: Transfers Toilet/ Bedside Commode - Patient will transfer to/from toilet/bedside commode withsupervision for improved ability to safely complete ADLs. Outcome: Ongoing Problem: OT - Balance Goal: Balance - Standing - Patient will perform 10 minutes of functional task in standing with supervision and good balance to promote safety and improved balance required for self-care activities. Outcome: Ongoing Problem: OT - Strength/ROM Goal: Neuro Re-education - Patient will participate in neuro re-ed of left upper extremity with contact guard assistance and 100% accuracy for improved functional use in ADLs. Outcome: Ongoing Problem: OT - Cognition Goal: Cognition - Command Following - Patient will follow 75% of single commands during ADL task. Outcome: Ongoing Goal: Cognition Simple ADL - Patient will demonstrate improved cognition, completing simple ADL task for 5 minutes with no greater than min cues required to maintain attention. Outcome: Ongoing Problem: OT - Vision Goal: Visual Scanning Functional Mobility - Patient will use appropriate visual scanning techniqueswith no greater than min cues during functional mobility to promote safety and success during dailyroutine. Outcome: Ongoing * Plan of Care - Abhijeet Yeung PT - 11/09/2024 8:09 AM EDT Problem: PT - General Goals Goal: Supine <-> Sit Transfers - Patient will perform supine to/from sit transfers with independently and without use of hospital bed features in order to improve functional mobility and safety. Outcome: Ongoing Goal: Sit <-> Stand Transfers - Patient will perform sit to/from stand transfers with standbyassistance and least restrictive device in order to improve functional mobility and safety. Outcome: Ongoing Goal: Ambulation - Patient will ambulate 150 feet with standby assistance and least restrictive device to improve ability to safely navigate home and community. Outcome: Ongoing Goal: Stairs - Patient will ascend/descend 3 stairs with standby assistance, least restrictive device, and single railing(s) to improve ability to safely navigate home and community. Outcome: Ongoing Problem: PT - Outcome Measure Goals Goal: 5x Sit to Stand - Patient will perform 5x Sit to dining room server 15 seconds or less in order to demonstrate reduced fall risk. Outcome: Ongoing * Plan of Care - Tyesha Cody RN - 11/08/2024 11:35 PM EDT Problem: Adult Inpatient Plan of Care Goal: Plan of Care Review Outcome: Progressing Goal: Patient-Specific Goal (Individualized) Outcome: Progressing Goal: Optimal Comfort and Wellbeing Outcome: Progressing Goal: Readiness for Transition of Care Outcome: Progressing Problem: Stroke, Ischemic (Includes Transient Ischemic Attack) Goal: Optimal Coping Outcome: Progressing Goal: Optimal Cognitive Function Outcome: Progressing Goal: Improved Communication Skills Outcome: Progressing Goal: Effective Urinary Elimination Outcome: Progressing * Plan of Care - Anh Gonzalez MD - 11/08/2024 7:24 PM EDT Note of Medical Necessity Contrast-induced BYRON.--The risk of CI-BYRON is substantially less than the risk of CA-BYRON, but the actual risk remains uncertain in patients with severe kidney disease. Several large controlled observational studies have shown no evidence of CI-BYRON regardless of CKD stage, whereas others found evidence of CI-BYRON only in patients with severely reduced kidney function. In such studies, the risk of CI-BYRON has been estimated to be near 0% at eGFR greater than or equal to 45, 0%- 2% at eGFR of 30-44, and 0%-17% at eGFR less than 30 mL/min/1.73 m2. These studies are underpowered to establish risk in patients with severe kidney disease, differ in their conclusions about risk in patients with eGFR less than 30 mL/min/1.73 m2 (estimated CI-BYRON risk range, 0%-17%), and are observational in design (ie,only known confounders can be addressed). There are no randomized trials differentiating CA-BYRON from CI-BYRON in patients with eGFR less than 30 mL/min/1.73 m2. [Consensus Statements from ACR and NKF; Huff et al. 2020] The benefits of performing the ordered CT scan(s) with contrast outweigh the risks of contrast-induced BYRON. Anh Gonzalez MD PGY-2 Neurology [facility] Note* Nursing Notes - Kennedy Key RN - 11/11/2024 2:11 PM EDT Stroke patient education has been reviewed and all required elements are complete and personalized. Cosigned by Kelley Larios RN at 11/11/2024 4:00 PM EDT [facility]04-10-2025 Hospital Discharge instructions* Discharge Instructions* Marcia Laurent, - 11/11/2024 12:15 PM EDT Start Eliquis 5 mg every 12 hours on 11/[address] referral for sleep study upon discharge from [facility] Please take these discharge instructions to your primary care doctor follow appointment to show them,keep them for your reference and refer to them often for follow up appointments. It is best to write your appointments on a personal calendar so you do not miss them. Call if you need to change any appointments please. Keep an up-to-date medication list with you at all times. Stroke Education: visit [email or web address] What are the most common symptoms of stroke? The following are the most common symptoms of stroke. However, each individual may experience symptoms differently. If any of these symptoms are present, call 911 (or your local ambulance service) immediately. Treatment is most effective when started immediately. Symptoms may be sudden and include: -Weakness or numbness of the face, arm, or leg, especially on one side of the body -Confusion or difficulty speaking or understanding -Problems with vision such as dimness or loss of vision in one or both eyes -Dizziness or problems with balance or coordination -Problems with movement or walking -Severe headaches with no other known cause, especially if sudden onset All of the above warning signs may not occur with each stroke. Do not ignore any of the warning signs, even if they go away - take action immediately. The symptoms of stroke may resemble other medical conditions or problems. Always consult your physician for a diagnosis. We have provided both written and verbal education to the patient and family regarding ischemic andhemorrhagic strokes. We have discussed the warning signs/symptoms as well as causes of stroke. We have discussed the importance of activating 911/EMS in the event of these symptoms. We have reviewed the patient's personal risk factors as well as education on reducing these risk factors. [facility] Personalized Stroke Treatment Plan My Stroke Type: [x] Ischemic Stroke (Blockage of blood flow to the brain) [] Hemorrhagic Stroke (Bleeding in the brain) [] TIA- Transient Ischemic Attack (mini-stroke) My Risk Factors Include: [] High Blood Pressure [x] Diabetes [] High Cholesterol [] Heart Disease [x] Atrial Fibrillation (Irregular Heart Rate) [] Smoking/Vaping/E-Cigarettes [] Obesity [] Clotting Disorder [] Alcohol Abuse [] Drug Abuse [] Prior History [] Family History [] Obstructive Sleep Apnea My Follow-Up Treatment Goals: [x] Blood Pressure < 140/90 [] Stop Smoking, Vaping, and/or using E-Cigarettes Immediately [] LDL < 70 [] HgA1C levels < 7% [] Decrease BMI to < 25 [x] Take all ordered medications [] Avoid non-prescription or pihd-vef-fhywmsx medication not cleared by your physician [x] Limit Alcohol use to no more than 1 drink per day for females and 2 drinks per day for males [] Do not drive until cleared [x] Follow up with PCP (Primary Care Provider) within a week of discharge to home [x] Follow-up with Neurovascular (Stroke Doctor) [x] Follow-up with Occupational,physical and speech therapy if ordered [x] Watch out for depression and seek treatment if needed Patient Stroke Resources CONTACTS FOR NEUROVASCULAR SERVICE: - Please first consider reaching out to your PCP (Primary Care Provider) for ongoing care needs andguidance. - You may call the neurovascular doctors office at [phone], if you have questions Mon-Fri between 8:30 am and 4:30 pm. - For off hours or the weekend you may call the office or the hospital piercing machine operator at and ask for the stroke resident radio control crane operator to be paged. - If you have any other questions or needs, please call Polly CALIX, RN, Stroke Nurse Navigator at [phone] Mon-Fri between 7:00am and 3:00pm. - Additional assistance may be found by reaching out to our Case Management Office at [phone]. *In the event of an Emergency: If you have a physical or psychiatric emergency call 471 or go to your local emergency department. You should also call your outpatient provider's emergency number. Other reference numbers: [facility] Intake Office at 334-404-2966; [facility] at 750-248-0781; or Suicide Prevention Hotline at 000-280-3065. *Helpful phone numbers: Free Crisis Hotline: 7-091-415-TALK ( ) Suicide Hotline: 926.818.2395 Seniors Suicide Hotline: 900.720.9336 [facility] Youth: 496.668.[address] [facility]: 790.623.5743 (free counseling) [facility] Access Hotline: 004-793-KQOL (027-044-8434) 24-hour crisis text hotline: Text the word 4hope to 594-546 for crisis support. Texting this number is free if you have Verizon, [employer], [employer] or Sprint. [facility] Financial Assistance: If you want to learn more about these programs, please call .There are three programsto help you with the cost of your medical care: Medicaid, Hospital Care Assurance Program (HCAP) & riley If you are without Insurance and believe you may qualify for Medicaid/public assistance: The [facility] Department of Job and Family Services can now process morillo (TANF), food (SNAP) and Medicaid Applications over the phone. Please call [phone] ([phone]) and apply over the phone or apply online at www.benefits.[place].gov. Friday-Friday 8am-12pm noon. Medication Assistance Programs [employer] members can buy 100+ common prescriptions for FREE, $3 or $6. Annual membership is $36 for individuals and $72 for families (up to 6 people, including pets). Sign up online or enroll at your nearest pharmacy! [employer], web site can provide a significant number of coupons for medications at a much lower chew. [place] Department of Aging The Department of Aging administers programs and services to meet the needs of older [place]. Services and resources offered per county may include transportation, housekeeping, meals and nutrition, personal care, case management, safety monitoring, home medical equipment, legal services, financial planning analyst, health and wellness, education, caregiver support, respite care, etc. Call to be connected to the area agency on aging serving your community or visit aging.[place].gov/find-services. Request a consultation with a community resource expert at ltssi.age.[place].gov/ [facility] Stroke Support The [facility] Stroke Support Group is for stroke survivors, friends, and family members. Meets on the Friday of each month from 6:30pm-7:30pm at [facility] ([address]; [place] [address]). Contact Sonam Craig, at [phone] or [email or web address]. If you are outside of the [facility], contact The [employer] at www.stroke.org or 5-657-4-STROKE or for support groups in your area. You may also refer to the Your Care after a Stroke education booklet at [email or web address] for additional resources. documented in this encounterSub[facility] History of Present illness Narrative* ABA Concepcion - 11/11/2024 11:24 AM EDT Care Management Discharge Note Selected Continued Care - Admitted Since 11/08/2024 Destination Coordination complete. Service Provider Services Address Phone Fax Patient Preferred [facility] [address] [facility] [phone] -- Transport Request Mode of Transfer: Private Vehicle Discharge Transport ETA: 11/11/2024 @ 2pm Patient medically stable for discharge per physician/medical team. 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 Insurance authorization has been received. ISABELLE Epps, ABA Piling Cutter Available by Secure Chat * Ramonita Pappas, PT - 11/11/2024 10:52 AM EDT Acute Physical Therapy Treatment Prior Gross Functional Mobility: independent Current AM-PAC score(s): CURRENT AM-PAC Mobility Raw Score: 18 Based on the above AM-PAC score(s) and PT clinical judgment, patient is a good candidate for discharge to Inpatient Rehab Facility Supporting Factors (would benefit from skilled therapy services): Impaired functional status, Decreased strength, Impaired balance, Impaired cognitive status, Assistance needed with functional mobility, Fall risk, Recent decline in functional mobility, Recent decline in self-care abilities, Recent decline in cognitive function Mobility equipment available at home: ADL equipment available at home: Equipment needed for discharge: to be determined Current therapy frequency recommendation in acute: PT Therapy Frequency: 5 times a week Activity Recommendations for outside of rehab session: 1 person to bathroom Precautions and Weightbearing Status: Existing Precautions/Restrictions: fall Telemetry Patient Safety Communication Prior to Visit: Nursing Subjective: Received in the chair, daughter present, request to use the restroom Pain: General Pain Documentation (Adult, OB, Peds) Presence of Pain: denies pain/discomfort Presence of Pain Score (Auto-calculated): 0 Objective/Observation: Vitals/Vitals Responses to Treatment: VSS O2 Device: room air Cognition Overall Cognitive Status: Impaired Arousal/Alertness: Delayed responses to stimuli Orientation Level: Oriented to person Following Commands: Follows commands 25-50% of the time Safety Judgment: Decreased awareness of need for assistance, Decreased awareness of need for safety Extremity Assessments: See PT Evaluation flowsheet for Extremity Measurement updates. Skin and Edema: Balance: Sitting Balance Static Sitting-Level of Assistance: Standby Dynamic Sitting-Level of Assistance: Contact guard Skilled Rationale: Full extension to upright positioning/posture, Cues for increased safety Standing Balance Static Standing-Level of Assistance: Contact guard Dynamic Standing-Level of Assistance: Minimum assistance Standing-Balance Support: Gait belt, Hand-held assist Skilled Rationale: Hand placement, Verbal cues, Full extension to upright positioning/posture, Technique of activity, Cues for increased safety Standing Balance Skilled Intervention/Details: tolerated standing at the sink for hand hygiene, maxcues to scan for soap on the right, no LOB Mobility Assessment/Intervention: Transfer Assessment/Intervention: Sit to Stand Transfer Hutchinson Level: Sit->Stand: contact guard assist Assistive Device: Sit->Stand: gait belt, armed chair Skilled Rationale: Hand placement, Verbal cues, Full extension to upright positioning/posture, Technique of activity, Cues for increased safety Skilled Intervention/Details: Sit->Stand: recliner x 2, toilet x 1 Stand to Sit Transfer Hutchinson Level: Stand->Sit: contact guard assist Assistive Device: Stand->Sit: gait belt, armed chair Skilled Rationale: Hand placement, Controlled descent for sitting Skilled Intervention/Details: Stand->Sit: cues for proximity to chair Gait/Functional Mobility Assessment/Intervention: Gait Assessment Hutchinson Level: Gait: minimum assist (75% patient effort) Assistive Device: Gait: gait belt, hand held assist Ambulation Distance (Feet): 150 Gait Deviations Identified: decreased chris, decreased gait speed, path deviation Gait Skilled Rationale: verbal, safety to avoid obstacles Skilled Intervention/Details - Gait: right inattention, requiring frequent cues for scanning. Stairs Assessment/Intervention: Stairs Assessment Hutchinson Level: Stair Negotiation: not tested Outcome Score(s): CURRENT [facility] Basic Mobility Inpatient Short Form Turning over in bed: 3 - A Little Assistance Moving from lying on back to sittin - A Little Assistance Moving to and from bed to chair: 3 - A Little Assistance Sitting/standing from chair: 3 - A Little Assistance Walk in hospital room: 3 - A Little Assistance Climbing 3-5 steps with a railin - A Little Assistance CURRENT [facility] Mobility Raw Score: 18 CURRENT [facility] Mobility Functional Limitation: 46.58% Impaired in Basic Mobility Interventions: Intervention 1 Intervention Name: timmy Details: CGA for toilet transers, eddi hygiene with supervision. Assessment & Plan: Patient tolerated session with no adverse events Patient is making progress towards inpatient therapy goals. Patient presented with flexed posture, decreased exercise tolerance, functional mobility tolerance , decreased aerobic capacity and decreased bilateral lower extremity strength. Pt cont to require assist with functional transfers compared to baseline presentation. Patient will continue to benefit from skilled physical therapy to assist with above mentioned impairments, functional mobility, exercise tolerance, goal progression and progression to prior level of function. Encouraged patient to complete mobility / ambulation during the day with staff and educated on safemobility techniques Patient Instruction/Education this session: Learners: Patient, Adult Child/Children Education provided: Activity outside of therapy, Balance training, Fall precautions, Plan of care, Role of this discipline Teaching method: Verbal Education/Instruction Learner response: Needs review Learning considerations: Cognition Plan for next session: progress balance, gait, right scanning Acute PT Goals Plan of Care by Ramonita Pappas PT at 11/11/2024 10:52 AM Version 1 of 1 Problem: PT - General Goals Goal: Sit <-> Stand Transfers - Patient will perform sit to/from stand transfers with standbyassistance and least restrictive device in order to improve functional mobility and safety. Outcome: Progressing Goal: Ambulation - Patient will ambulate 150 feet with standby assistance and least restrictive device to improve ability to safely navigate home and community. Outcome: Progressing PT treatment consisted of the following to progress towards the above goal(s): PT Evaluation and Treatment Time Therapeutic Activity Time Entry: 8 Gait Training Time Entry: 10 Neuromuscular Re-Education Time Entry: 6 Treating Therapist: Ramonita Pappas PT I AM A FLOAT. PLEASE PAGE YOUR FLOORS PT REGARDING THIS PATIENT. Additional Details: PT Co-Eval/Treatment Information Co-evaluation/co-treatment performed?: No simultaneous skilled care performed PPE used during patient interaction: gloves Patient location at end of session: chair Alarms on at end of session: chair alarm, RN aware (daughter present) Needs in reach. Time In: 1028 Time Out: 1052 Total Visit Time: 24 minutes Total Treatment Time (skilled, billable minutes): 24 minutes Upon discontinuation of Acute Care Physical Therapy Services or patient discharge from the hospitalthis note represents the current Physical Therapy Discharge Summary. * Marcia Laurent DO - 11/10/2024 3:10 PM EDT Images from the original note were not included. NEUROVASCULAR STROKE SERVICE Daily Progress Note IDENTIFYING INFORMATION Elizabeth Henley MR# [id number] 11/10/2024 HISTORY OF PRESENT ILLNESS Elizabeth Henley is a 74 y.o. 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 A stroke alert was called for STAT consultation. LKW unclear, OSH documentation states LKW 0800 but per EMS report, family had normal conversation with her around 1430 but was not seen by them at that time. Family then picked her up for an appointment and noted dysarthria and R-sided weakness. She initially presented to OSH where she was seen by Dr. Peters. NIH 2 (2 language). She was offered lytics, but given unclear LKW and INR 1.5, OSH was not comfortable giving. CTH at OSH unremarkable, CTA with c/f L M1 occlusion with distal reconstitution. She was transferred to [facility] for further evaluation. INTERVAL HISTORY 11/09: admitted to [facility]. PHYSICAL EXAM General: Laying comfortably in bed; in no acute distress. HENT: Normal oropharynx and mucosa. Normal external appearance of ears and nose. Neck: Supple, no pain or tenderness, no lymphadenopathy CV: Pulse is regular, strong in distal extremities. No peripheral edema. Pulmonary: Normal respiratory effort. No accessory muscle use. On room air. Abdomen: Soft, non-tender. No hepatosplenomegaly. Ext: No cyanosis, edema, or deformity. Skin: No rash. Skin warm and dry. Neurologic Examination Mental status/Cognition: alert; not oriented to age or month; good attention; no apparent neglect; not following commands Speech/language: states daughter's name when asked for her name, saying words out of context, mild dysarthria; comprehension somewhat intact; unable to name objects; repetition not intact Cranial nerves: CN II Visual shearer full to confrontation without visual extinction CN III,IV, PERRL. EOMI CN V Facial sensation intact to light touch bilaterally in V1, V2, V3 CN VII Face, Smile, Eyebrow raise/closure symmetric CN VIII Hearing grossly intact to voice CN IX & X Soft palate elevates symmetrically in the midline, mild dysarthria CN XI Shoulder shrug with full strength CN XII Tongue protrudes midline Motor: Normal bulk and tone. - Left arm: no drift - Right arm: no drift - Left leg: no drift - Right leg: no drift Sensation: intact to light touch throughout without extinction Coordination/Complex Motor: no obvious ataxia in arm or leg movements NIHSS 11/10/2024 Provider NIH Stroke Scale NIH Interval (Provider): daily NIH Level of Conciousness (Provider): 0 NIH LOC Questions (Provider): 2 NIH LOC Commands (Provider): 1 NIH Best Gaze (Provider): 0 NIH Visual (Provider): 3 (baseline left eye blindness) NIH Facial Palsy (Provider): 0 NIH Left Arm Motor (Provider): 0 NIH Right Arm Motor (Provider): 0 NIH Left Leg Motor (Provider): 0 NIH Right Leg Motor (Provider): 0 NIH Limb Ataxia (Provider): 0 NIH Sensory (Provider): 0 NIH Best Language (Provider): 2 NIH Dysarthria (Provider): 1 NIH Extinction and Inattention (Provider): 1 NIH Total Score (Provider): 10 ASSESSMENT AND PLAN R sided weakness and dysarthria L MCA infarct, severe stenosis of L M1: - Etiology by TOAST Criteria - cardioembolism - CT head: No definite findings of large vessel occlusion. Of note, there is reported history of left M1 occlusion. No obvious findings of large infarct but evolving infarct in areas of prior ischemia/infarction be difficult to entirely exclude. Consider MRI. - CTA brain/neck: No significant stenosis of the carotid or vertebral arteries in the neck. 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 - CTP: Small core infarct with ischemic penumbra in left MCA distribution in keeping with reported M1 occlusion - MRI: Acute infarct involving the left temporal lobe consistent with a left MCA infarct. No evidence of hemorrhagic transformation - SBP: <220 - LDL: 81 - A1C: 6.9 - TTE: cardiac rhythm is irregular. EF 62%. Left atrium moderately enlarged. Mitral valve moderately calcified. Trace to mild regurgitation. Moderate stenosis with mean gradient 10 mmHg. Mild to moderate tricuspid regurg. - Statin therapy: atorvastatin 40mg - Antiplatelet therapy: ASA 81mg. Discontinue Plavix. - Anticoagulation: Holding home Coumadin. Plan to start Eliquis on 11/12. Ischemic Stroke Core Measures - NIHSS on admission 6 - Patient has been started on Mechanical (SCD's) and Pharmacological (SQ heparin/Lovenox) DVT prophylaxis. - Antiplatelet therapy has been initiated, Aspirin 81 mg daily - Anticoagulation therapy was not indicated for this patient -Patients LDL and HgbA1c were checked and the patient will be discharged on a lipid lowering statinif LDL >70 and glucose management if A1c >6.5%. - Dysphagia screening ordered, and will be completed prior to patient receiving oral intake. - Stroke education booklet has been ordered and will be provided by the RN that includes both written and verbal education to the patient and family regarding ischemic strokes. We have reviewed the patient's personal modifiable risk factors. - Patient is being assessed for Rehab by PT/OT/Speech and PM&R if indicated. Hx of atrial thrombus Atrial fibrillation (new diagnosis) - holding home coumadin - plan to start Eliquis 11/12 Other Medical Problems: DM: SSI HLD: started on atorvastatin 40 mg qday COPD: home Trelegy not available on formulary. Breztri ordered instead. 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 Perez. Signed, Marcia Laurent, DO PGY-3, Neurology VITAL SIGNS Temp: [97.8 F (36.6 C)-98.7 F (37.1 C)] 97.8 F (36.6 C) Pulse (Heart Rate): [80-95] 84 Resp Rate: [14-20] 18 BP: (109-142)/(51-84) 109/52 O2 Sat (%): [95 %-100 %] 96 % Oxygen Therapy: Oxygen Therapy O2 Sat (%): 96 % O2 Device: nasal cannula Flow (L/min): 1 Intake/Output: Intake/Output Summary (Last 24 hours) at 11/10/2024 1512 Last data filed at 11/10/2024 0857 Gross per 24 hour Intake 920 ml Output 900 ml Net 20 ml LABS/CULTURES Lab Results Component Value Date WBC 8.93 11/10/2024 HGB 14.3 11/10/2024 HCT 48.3 (H) 11/10/2024 PLATELET 183 11/10/2024 MCV 92.4 11/10/2024 Lab Results Component Value Date SODIUM 139 11/10/2024 POTASSIUM 4.3 11/10/2024 CHLORIDE 102 11/10/2024 CO2 30 11/10/2024 BUN 14 11/10/2024 CREATSERUM 1.06 11/10/2024 GLUCOSE 160 11/10/2024 Lab Results Component Value Date CHOLESTEROL 151 11/08/2024 TRIG 55 11/08/2024 HDL 59 11/08/2024 LDLCALC 81 11/08/2024 Lab Results Component Value Date HGBA1C 6.9 (H) 11/08/2024 Lab Results Component Value Date ALBUMIN 3.9 11/08/2024 , No results found for: CPK, TROP IMAGING/DIAGNOSTIC STUDIES ECHOCARDIOGRAM Final Result MRI BRAIN WITHOUT CONTRAST Final Result IMPRESSION: Acute infarct involving the left temporal lobe consistent with a left MCA infarct. No evidence of hemorrhagic transformation ANGIO BRAIN/NECK Final Result IMPRESSION: 1. No significant stenosis of the carotid or vertebral arteries in the neck. 2. 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 Findings were discussed with Anh Gonzalez MD at 8:41 PM on November 08, 2024. I personally viewed and interpreted these images and I have reviewed and approved this report. CEREBRAL PERFUSION ANALYSIS Final Result IMPRESSION: Small core infarct with ischemic penumbra in left MCA distribution in keeping with reported M1 occlusion I personally viewed and interpreted these images and I have reviewed and approved this report. STROKE HEAD-STROKE ALERT ONLY Final Result IMPRESSION: No definite findings of large vessel occlusion. Of note, there is reported history of left M1 occlusion. No obvious findings of large infarct but evolving infarct in areas of prior ischemia/infarction be difficult to entirely exclude. Consider MRI. Findings were discussed with Anh Gonzalez MD at 6:25 PM on November 08, 2024. I personally viewed and interpreted these images and I have reviewed and approved this report. CATIONS aspirin 81 mg Oral Daily Or aspirin 300 mg Rectal Daily Atorvastatin 40 mg Oral QHS [id number] 2 puff Inhalation BID enoxaparin 40 mg Subcutaneous Daily fluticasone 2 spray Nasal Daily Insulin lispro Subcutaneous 4x daily w/meals, HS Levothyroxine 88 mcg Oral Before BKF Senna 8.6 mg Oral QAM Or Senna 8.6 mg Per NG tube QAM Cosigned by Sameera Perez DO at 11/11/2024 6:31 PM EDT Associated attestation - Sameera Perez DO - 11/11/2024 6:31 PM EDT I saw and independently examined the patient on 11/10/2024. I agree with the history, examination, and medical decision making as outlined. In addition, please see below. 74F w/ DM, anemia, prior atrial thrombus on coumadin, HTN, COPD. 11/08/24 acute dysarthria and R weakness. NIHSS 2. INR 1.5. CTA w/ L M1 thrombus. NIHSS 6 on arrival to [facility]. Repeat CTA w/ near resolution of thrombus. MRI w/ infarct of left anterior temporal lobe. LDL 81, A1c 6.9%. New diagnosis Afib. Exam: R neglect, aphasia, not answer questions. NIHSS 9 (neglect 1, aphasia 2, questions 2, commands 1, L eye blind 3) Cardioembolic infarct 2/2 new diagnosis afib w/ subtherapeutic INR Plan: Continue aspirin 81 for intracranial stenosis. Start eliquis 5mg bid on 11/12. Atorva 40. Pending placement to IPR. Sameera Perez D.O. Vascular Neurology [facility] * ABA Concepcion - 11/10/2024 2:14 PM EDT Placement Plan Expected Discharge Date: 11/12/2024 Referred Level of Care: IPR Barriers: Pre-cert, medical readiness, transportation. Current Referrals and Status 1. [facility] - Available and Reserved Patient and family's preference is able to accept and start pre-cert. One daughter and patient updated at bedside. ISABELLE Epps, SUPERVISOR [employer] Available by Secure Chat * YUMIKO Fowler - 11/10/2024 11:42 AM EDT Acute Care LICENSED VETERINARY TECHNICIAN Speech/Language/Cognitive Evaluation Best mode of Communication: (nonverbal gestures and facial expressions) Communication Strategies: -Ask conflicting yes/no questions (I.e. Are you in pain? followed by Are you comfortable?) to ensure accurate response. -Provide pt options in vertical field of 2. Discharge Recommendations: Based on the below outcome measures/assessment score(s) and LICENSED VETERINARY TECHNICIAN clinicaljudgment, discharge destination recommendation is: Inpatient Rehab Facility Barriers to discharge home: Inability to communicate basic wants/needs Supporting factors for discharge setting: Impaired speech and language skills limiting ability to communicate basic wants/needs Acute LICENSED VETERINARY TECHNICIAN Outcomes Tracking Communicate basic wants and needs?: no Demo insight/appreciation of deficits?: no Complete basic problem solving?: no Current therapy frequency recommendation in acute: Speech/Lang/Cog Therapy Frequency: 5 times a week Clinical Impression: 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 Deficits result in functional limitations in communication of wants/needs. Receptive deficits in areas of yes/no response, command following. Max cues for repetition and modeling not effective. Expressive deficits in areas of naming, repetition, with relative strength being automatic speech and at times appropriate automatic responses in conversation thank you ouch in response to BP cuff. Session focus on trialing strategies for improved receptive/expressive speech (largely not effective) as well as education for family at bedside. Ongoing skilled services indicated to address above deficits and maximize functional recover. Patient Education/Instruction Learners: Patient, Adult Child/Children Education provided: Communication strategies, Plan of care, Role of this discipline Teaching method: Verbal Education/Instruction Learner response: Needs review Learning considerations: Speech comprehension, Speech expression (daughter receptive) Stroke education: Role of rehabilitation discipline, Recovery process Plan for next session: 11/10: good, ongoing yes/no, command following, establish communication Subjective information: Seen resting in recliner on LICENSED VETERINARY TECHNICIAN arrival, daughter present. With cues for sitting upright and washcloth pt sustained alertness throughout. Set up with lunch tray on LICENSED VETERINARY TECHNICIAN exit. Of note, daughter reporting pt with fluent and appropriate/intelligible phrases for family members yesterday while saying goodbye. Pain: General Pain Documentation (Adult, OB, Peds) Presence of Pain: not present: non-verbal indicator of pain/discomfort Presence of Pain Score (Auto-calculated): 0 Comfort/Acceptable General Pain Level/Goal: 0 DVPRS (Defense and Veterans Pain Rating Scale) DVPRS: Rest: 0- no pain DVPRS: Activity: 0- no pain General Pain Descriptors Pain Frequency: intermittent Pain Quality: aching, throbbing Factors That Aggravate Pain: stimulation, environmental Factors That Relieve Pain: repositioning Precautions: Patient Safety Communication Prior to Visit: Nursing Lines/Tubes/Drains (Rehab Status): Telemetry LICENSED VETERINARY TECHNICIAN Existing Precautions/Restrictions: fall Patient History Comments: Elizabeth Henley is a 74 y.o. female who presents per chart: PMH significant for DM, GERD, anemia, depression, COPD, atrial thrombus on coumadin, HTN who presents as level A stroke alert for L M1 occlusion. R sided weakness and dysarthria L MCA infarct, severe stenosis of L M1: - Etiology by TOAST Criteria - cardioembolism - CT head: No definite findings of large vessel occlusion. Of note, there is reported history of left M1 occlusion. No obvious findings of large infarct but evolving infarct in areas of prior ischemia/infarction be difficult to entirely exclude. Consider MRI. - CTA brain/neck: No significant stenosis of the carotid or vertebral arteries in the neck. 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 - CTP: Small core infarct with ischemic penumbra in left MCA distribution in keeping with reported M1 occlusion - MRI: Acute infarct involving the left temporal lobe consistent with a left MCA infarct. No evidence of hemorrhagic transformation Prior Level of Function: PT/OT Home Setting Residence: (mobile home) Patient receives help from : none First floor setup: bedroom, tub shower Number of stairs to enter home: 3 steps (has ramp available but not using) Number of stairs in home: 0 Previous Level of Function Gross Functional Mobility: independent Assistive Device: none used Prior level ADL Overview: Independent with all ADLs Dominant Hand: Right Bed Mobility: independent Transfers: independent Stairs: independent Ambulation: independent with all needs Prior Level of Function Details: Patient was independent with all ADL/IADLs including driving priorto hospitalization. No recent falls Residence: (mobile home) LICENSED VETERINARY TECHNICIAN IADL History IADLs: (Ongoing baseline needed, time constraints this date with lunch tray present) *Unclear baseline vision L eye, daughter reporting like blind LICENSED VETERINARY TECHNICIAN Existing Precautions/Restrictions: fall Respiratory Status: O2 Sat (%): 96 % (11/10 1213) O2 Device: nasal cannula (11/10 1141) Flow (L/min): 2 (11/10 1141) EXPRESSIVE LANGUAGE: Impaired Task: Imitates Gestures Impaired Automatic Speech Impaired (able to count 1-10 with repetition of verbal/visual cues, perseveration on later attempts) Phrase Completion Impaired Confrontation Naming Impaired (semantic, multiple choice, phonemic cues not effective) Answering 'wh' Questions Impaired Repetition Impaired (success with initially trialing vowel sounds, e oo ah however later cuesnot effective for this) Verbalize Basic Wants and Needs Impaired Functional Participation in Conversation (Perseveration on yeah and ok) Expressive Language Characteristics: Fluent and Perseveration RECEPTIVE LANGUAGE: Impaired Task: Identify Functional Objects Impaired (appreciate significant concern for vision and R inattention) Follow 1-Step Commands Impaired Follow 2+ Step Commands Answers Basic Y/N Questions Impaired Answers Complex Y/N Questions Conversational Comprehension Impaired READING: (NA- severity of deficits and visual scanning R) WRITING: (NA- severity of deficits and visual scanning R) SOCIAL INTERACTION/PRAGMATICS: (Flat affect) COGNITION: (No formal assessment as focus on communication however noted R neglect as well as concerns with sustained attention) CRANIAL NERVE EXAMINATION: Cranial Nerve Exam CN V (Trigeminal) not tested CN VII (Facial) (no dense unilateral droop) CN IX (glossopharyngeal) hoarseness CN X (Vagus) hoarseness CN XI (Accessory) not tested CN XII (Hypoglossal) slurred speech MOTOR SPEECH TASKS: Impaired Task: Imitate Motor Movements Impaired Imitate Sounds and Words Impaired (max cues with variable efficacy) Rapid Alternating Movements Speech Intelligibility Impaired Fluency Impaired (partial word repetition at times) Saliva Management Functional VOCAL PARAMETERS: (Mild hoarse) Subjective Voice Evaluation Grade of dysphonia (G): 1 Roughness (R): 1 Breathiness (B): 0 Asthenia (A): 1 Strain (S): 0 LICENSED VETERINARY TECHNICIAN Outcomes: Not completed Acute LICENSED VETERINARY TECHNICIAN Goals Plan of Care by Beatrice Valencia, LICENSED VETERINARY TECHNICIAN at 11/10/2024 11:43 AM Version 1 of 1 Problem: LICENSED VETERINARY TECHNICIAN - Language Goal: Command Following - Patient will complete 1-step commands with 70% accuracy with fading cues in order to improve direction following for functional gains in ability to participate more independently in care Outcome: Ongoing Goal: Yes/No Response - Patient will answer yes/no questions related to current situation/environment with 70% accuracy with fading cues in order to improve ability to answer questions related to care Outcome: Ongoing Goal: Communicate Wants/Needs - Patient will independently communicate basic wants/needs via any communication modality on at least 3 opportunities to improve functional communication and ability to direct care Outcome: Ongoing Problem: LICENSED VETERINARY TECHNICIAN - Cognition Goal: Ongoing Assessment - Patient will participate in ongoing dynamic assessment of motor speech, expressive/receptive language, and cognitive- linguistic skills across 1 session to better assess deficits and most appropriately guide LICENSED VETERINARY TECHNICIAN plan of care Outcome: Ongoing Speech Language Pathologist: YUMIKO Fowler Time In: 1142 Time Out: 1202 Total Visit Time: 20 minutes Total Treatment Time (skilled, billable minutes): 20 minutes Non-billable assistance during session: NA Assisted by during session: NA PPE used during patient interaction: gloves Patient location/status at end of session: chair Patient alarms at end of session: none altered (daughter present) Needs in reach. LICENSED VETERINARY TECHNICIAN Evaluation and Treatment Time Speech Eval - Sound Production W/Lang Comp and Exp [id number]: 20 Upon discontinuation of Acute Care Speech Therapy Services or patient discharge from the hospital this note represents the current Speech Therapy Discharge Summary * YUMIKO Fowler - 11/10/2024 11:41 AM EDT Acute Care Speech Language Pathology Note Received consult for swallow evaluation. However, patient passed [place] Swallow Screening by nursing.Swallow eval by LICENSED VETERINARY TECHNICIAN will not be completed at this time unless this service notified of change in status or re-consult for swallow eval placed. LICENSED VETERINARY TECHNICIAN to proceed with speech/language/cognitive evaluationper order. Thank you. No charge Beatrice Valencia MA, [facility]-LICENSED VETERINARY TECHNICIAN Pager: [phone] License: [email or web address] Email: [email or web address] * Abhijeet Yeung PT - 11/10/2024 10:28 AM EDT Acute Physical Therapy Treatment Prior Gross Functional Mobility: independent Current AM-PAC score(s): CURRENT AM-PAC Mobility Raw Score: 17 Based on the above AM-PAC score(s) and PT clinical judgment, patient is a good candidate for discharge to Inpatient Rehab Facility Supporting Factors (would benefit from skilled therapy services): Impaired functional status, Impaired balance, Fall risk, Recent decline in functional mobility Mobility equipment available at home: ADL equipment available at home: Equipment needed for discharge: to be determined Current therapy frequency recommendation in acute: PT Therapy Frequency: 5 times a week Activity Recommendations for outside of rehab session: 1 person to bathroom Precautions and Weightbearing Status: Existing Precautions/Restrictions: fall Telemetry Patient Safety Communication Prior to Visit: Nursing Subjective: Patient seated in chair and agreeable to therapy. Pain: General Pain Documentation (Adult, OB, Peds) Presence of Pain: denies pain/discomfort Presence of Pain Score (Auto-calculated): 0 Objective/Observation: Vitals/Vitals Responses to Treatment: VSS O2 Device: nasal cannula Flow (L/min): 2 Cognition Overall Cognitive Status: Unable to assess (aphasia) Arousal/Alertness: Delayed responses to stimuli Orientation Level: Oriented to person Extremity Assessments: See PT Evaluation flowsheet for Extremity Measurement updates. Skin and Edema: Balance: Sitting Balance Static Sitting-Level of Assistance: Standby Dynamic Sitting-Level of Assistance: Contact guard Skilled Rationale: Verbal cues, Positioning Standing Balance Static Standing-Level of Assistance: Minimum assistance Dynamic Standing-Level of Assistance: Minimum assistance Standing-Balance Support: Gait belt Skilled Rationale: Verbal cues, Hand placement, Positioning, Full extension to upright positioning/posture, Technique of activity, Initiation and execution of task Standing Balance Skilled Intervention/Details: Standing balance at sink with reaching outside SOHA and crossing midline with focus on right side attention. Patient wiht mild left lateral lean with cues for midline orientation with inconsistent correction. Mobility Assessment/Intervention: Transfer Assessment/Intervention: Sit to Stand Transfer Hutchinson Level: Sit->Stand: contact guard assist Assistive Device: Sit->Stand: gait belt, hand held assist Skilled Rationale: Verbal cues, Hand placement, Sequencing, Facilitate anterior shift Skilled Intervention/Details: Sit->Stand: x7 trials Stand to Sit Transfer Hutchinson Level: Stand->Sit: contact guard assist Assistive Device: Stand->Sit: gait belt, armed chair Skilled Rationale: Verbal cues, Hand placement, Controlled descent for sitting Skilled Intervention/Details: Stand->Sit: cues for proximity to chair Gait/Functional Mobility Assessment/Intervention: Gait Assessment Hutchinson Level: Gait: minimum assist (75% patient effort) Assistive Device: Gait: gait belt, hand held assist Ambulation Distance (Feet): 125 (125x1, 50x1) Gait Deviations Identified: decreased chris, decreased gait speed, decreased heel strike, decreased stride length, flexed posture, increased postural sway, path deviation (inconsistent SOHA) Gait Skilled Rationale: verbal, tactile, upright posture, increase step length, improve foot placement, increase foot clearance, safety to avoid obstacles Skilled Intervention/Details - Gait: left patih deviation and cues for upright posture. Max cues for environmental scanning and right scanning to decrease risk for falls with inconsistent carry-over.Patient educated for safety wiht turns with increased postural sway requiring stepping strategy to maintain balance with turns to left. Stairs Assessment/Intervention: Outcome Score(s): 5X Sit to Stand Test recorded time: 34.25 seconds CURRENT [facility] Basic Mobility Inpatient Short Form Turning over in bed: 3 - A Little Assistance Moving from lying on back to sittin - A Little Assistance Moving to and from bed to chair: 3 - A Little Assistance Sitting/standing from chair: 3 - A Little Assistance Walk in hospital room: 3 - A Little Assistance Climbing 3-5 steps with a railin - A Lot of Assistance CURRENT [facility] Mobility Raw Score: 17 CURRENT [facility] Mobility Functional Limitation: 50.57% Impaired in Basic Mobility Interventions: Assessment & Plan: Patient progressing toward goals with improved gait and transfers and right environmental scanning.Patient continues to be limited by impaired gait, balance, and high risk for falls per 5xSTS. Patient would benefit from continued PT to improve functional mobility and independence to allow for improved quality of life. Patient Instruction/Education this session: Learners: Patient, Adult Child/Children Education provided: Activity outside of therapy, Gait training safety Plan for next session: Progress standing balance Acute PT Goals Plan of Care by Abhijeet Yeung PT at 11/10/2024 10:28 AM Version 1 of 1 Problem: PT - General Goals Goal: Sit <-> Stand Transfers - Patient will perform sit to/from stand transfers with standbyassistance and least restrictive device in order to improve functional mobility and safety. Outcome: Progressing Goal: Ambulation - Patient will ambulate 150 feet with standby assistance and least restrictive device to improve ability to safely navigate home and community. Outcome: Progressing Problem: PT - Outcome Measure Goals Goal: 5x Sit to Stand - Patient will perform 5x Sit to dining room server 15 seconds or less in order to demonstrate reduced fall risk. Outcome: Progressing PT treatment consisted of the following to progress towards the above goal(s): PT Evaluation and Treatment Time Gait Training Time Entry: 12 Neuromuscular Re-Education Time Entry: 14 Treating Therapist: Abhijeet Yeung PT Additional Details: PT Co-Eval/Treatment Information Co-evaluation/co-treatment performed?: No simultaneous skilled care performed PPE used during patient interaction: gloves Patient location at end of session: chair Alarms on at end of session: chair alarm, RN aware Needs in reach. Time In: 1028 Time Out: 1054 Total Visit Time: 26 minutes Total Treatment Time (skilled, billable minutes): 26 minutes Upon discontinuation of Acute Care Physical Therapy Services or patient discharge from the hospitalthis note represents the current Physical Therapy Discharge Summary. * Tiarra Tello OT - 11/10/2024 10:00 AM EDT Acute Occupational Therapy Treatment Prior Gross Functional Mobility: independent Current AM-PAC score(s): CURRENT AM-PAC Activity Raw Score: 15 Based on the above AM-PAC score(s), and OT clinical judgment, discharge destination recommendation is: Inpatient Rehab Facility Supporting Factors (would benefit from skilled therapy services): Decreased endurance, Impaired self-care abilities, Impaired cognitive status Mobility equipment available at home: ADL equipment available at home: Equipment recommendations for discharge: Equipment issued: none Current therapy frequency recommendation(s) in acute: 5 times a week Precautions and Weightbearing Status: OT Existing Precautions/Restrictions: fall Telemetry Patient Safety Communication Prior to Visit: Nursing Subjective: Daughter reported she was doing better Pain: General Pain Documentation (Adult, OB, Peds) Presence of Pain: denies pain/discomfort Presence of Pain Score (Auto-calculated): 0 Objective/Observation: Vitals/Vitals Responses to Treatment: VSS Cognition Overall Cognitive Status: Impaired Arousal/Alertness: Delayed responses to stimuli Orientation Level: Oriented to person Following Commands: Follows commands 25-50% of the time Safety Judgment: Decreased awareness of need for assistance, Decreased awareness of need for safety Awareness of Errors: Assistance required to identify errors made, Assistance required to correct errors made Cognition Comments: Pt reponds better to functional tasks vs. verbal tasks ADL Assessment/Intervention: ADLs: ADL Assessment: Grooming Deficit, Bathing Deficit, UE Dressing Deficit, LE Dressing Deficit, Toileting Deficit Grooming Assistance: Minimal Grooming Location: standing at sink Grooming Deficit: Activity tolerance, Generalized weakness, Balance Grooming Skilled Rationale (Verbal/Tactile/Visual/Demonstration): Setup, Supervision, Cues for increased safety, Technique of activity Grooming Intervention/Details: Pt able to wash face, brush teeth and brush hair. Cues for scanning to R side to locate ADL objects as well as scan to R to turn on the water. Cues for proper sequencing of grooming task of putting on deodorant this session due to spray deodorant spray. Bathing Assistance: Moderate Bathing Location: seated in chair Bathing Deficit: Activity tolerance, Generalized weakness, Balance Bathing Skilled Rationale (Verbal/Tactile/Visual/Demonstration): Cues for increased safety, Supervision, Setup Bathing Intervention/Details: Pt required cues for safety with task to complete it sitting. min A for balance when standing for buttocks and single step commands to complete entire routine. UE Dressing Assistance: Contact guard assist UE Dressing Location: seated in chair UE Dressing Deficit: Generalized weakness, Activity tolerance UE Dressing Skilled Rationale (Verbal/Tactile/Visual/Demonstration): Setup, Supervision, Cues for increased safety, Technique of activity LE Dressing Assistance: Moderate LE Dressing Location: seated in chair LE Dressing Deficit: Generalized weakness, Activity tolerance, Don/doff L sock, Don/doff R sock LE Dressing Skilled Rationale (Verbal/Tactile/Visual/Demonstration): Supervision, Setup, Cues for increased safety, Technique of activity LE Dressing Intervention/Details: Contact guard for balance assist due to forward flexion to don socks. Toilet Assistance: Maximal Toileting Location: toilet Toileting Deficit: Activity tolerance, Generalized weakness, Balance Toilet Skilled Rationale (Verbal/Tactile/Visual/Demonstration): Cues for increased safety, Setup, Supervision Toileting Intervention/Details: Total assist for pants management and max cues for scanning to locate toilet paper on R side Balance: Sitting Balance Static Sitting-Level of Assistance: Standby Dynamic Sitting-Level of Assistance: Contact guard Skilled Rationale: Verbal cues, Hand placement Standing Balance Static Standing-Level of Assistance: Minimum assistance Dynamic Standing-Level of Assistance: Minimum assistance Standing-Balance Support: Gait belt Skilled Rationale: Verbal cues, Tactile cues, Hand placement Transfer Assessment/Intervention: Sit to Stand Transfer Hutchinson Level: Sit->Stand: contact guard assist Assistive Device: Sit->Stand: gait belt Skilled Rationale: Hand placement, Verbal cues Toilet Transfer Hutchinson Level: Toilet: minimum assist (75% patient effort) Assistive Device: Toilet: gait belt Skilled Rationale: Hand placement, Verbal cues Functional Mobility: Functional Mobility Hutchinson Level: Functional Mobility/Gait: minimum assist (75% patient effort) Assistive Device: Functional Mobility/Gait: gait belt Functional Mobility Distance: Distance needed to access restroom Functional Mobility Deficits: Activity tolerance, Balance, Generalized weakness Functional Mobility Skilled Rationale: Cues for increased safety, Technique of activity, Verbal cues Skilled Intervention/Details - Functional Mobility/Gait: Cues fro scanning to the R side and pt attempting to furniture surf due to unsteadiness CURRENT [facility] Daily Activity Inpatient Short Form Putting on/Taking Off Lower Body Clothin - A Lot of Assistance Bathin - A Lot of Assistance Toiletin - A Lot of Assistance Putting on/Taking Off Upper Body Clothin - A Little Assistance Groomin - A Little Assistance Eatin - A Little Assistance CURRENT [facility] Activity Raw Score: 15 CURRENT [facility] Activity Functional Limitation/Modifier: 56.46% Currently Impaired in Daily Activity- CK Assessment & Plan: Pt with progress towards goals. Improved functional use in ADL tasks but continues with R sided scanning deficits. pt able to follow improved commands, but mostly with functional tasks vs. verbal or abstract. Limited by aphasia this session. Due to progress, but no goals met would benefit from continued OT services Patient Instruction/Education this session: Learners: Patient Education provided: Activity outside of therapy Teaching method: Verbal Education/Instruction Learner response: States/Identifies/Teaches back Plan for next session: Address functional ADls and balance Acute OT Goals Plan of Care by Tiarra Tello OT at 11/10/2024 10:11 AM Version 1 of 1 Problem: OT - ADLs Goal: Lower Body Dressing - Patient will complete lower body dressing tasks with supervision using adaptive equipment/compensatory strategies as needed for improved ability to complete self-care activities. Outcome: Progressing Goal: Grooming - Patient will complete grooming in standing with supervision for improved ability to safely complete ADLs. Outcome: Progressing Goal: Bathing - Patient will perform full body bathing routine with supervision while seated for improved ability to complete self-care activities Outcome: Progressing Problem: OT - Transfers Goal: Transfers Toilet/ Bedside Commode - Patient will transfer to/from toilet/bedside commode withsupervision for improved ability to safely complete ADLs. Outcome: Progressing Problem: OT - Balance Goal: Balance - Standing - Patient will perform 10 minutes of functional task in standing with supervision and good balance to promote safety and improved balance required for self-care activities. Outcome: Progressing Problem: OT - Cognition Goal: Cognition - Command Following - Patient will follow 75% of single commands during ADL task. Outcome: Progressing Goal: Cognition Simple ADL - Patient will demonstrate improved cognition, completing simple ADL task for 5 minutes with no greater than min cues required to maintain attention. Outcome: Progressing Problem: OT - Vision Goal: Visual Scanning Functional Mobility - Patient will use appropriate visual scanning techniqueswith no greater than min cues during functional mobility to promote safety and success during dailyroutine. Outcome: Progressing OT treatment consisted of the following to work and progress towards the above goal(s): OT Evaluation and Treatment Time Self Care/Home Management (ADLs) Time Entry: 25 Treating Therapist: Tiarra Tello OT Additional Details: OT Co-Eval/Treatment Information Co-evaluation/co-treatment performed?: No simultaneous skilled care performed PPE used during patient interaction: gloves Patient location at end of session: chair Alarms on at end of session: chair alarm Needs in reach. Time In: 934 Time Out: 1000 Total Visit Time: 25 minutes Total Treatment Time (skilled, billable minutes): 25 minutes Upon discontinuation of Acute Care Occupational Therapy Services or patient discharge from the hospital this note represents the current Occupational Therapy Discharge Summary. * YUMIKO Fowler - 11/10/2024 9:32 AM EDT Speech Language Pathology Attempt Note 11/10/2024 LICENSED VETERINARY TECHNICIAN Therapy Completed: Attempted Attempted Reason: Other (see comments) (PT/OT at bedside, will reattempt later time) YUMIKO Fowler Time In: 931 Time Out: 931 Total Visit Time: 0 minutes Total Treatment Time (skilled, billable minutes): 0 minutes * YUMIKO Alva - 11/09/2024 2:17 PM EDT Speech Language Pathology Attempt Note 11/09/2024 LICENSED VETERINARY TECHNICIAN Therapy Completed: Attempted Attempted Reason: (pt sleeping; family member requested LICENSED VETERINARY TECHNICIAN return later) YUMIKO Alva Time In: 1415 Time Out: 1415 Total Visit Time: 0 minutes Total Treatment Time (skilled, billable minutes): 0 minutes * Ramonita Quarles RN - 11/09/2024 1:11 PM EDT Reason for Consult: IPR Consulted By: chart reviewed Level(s) of Care Discussed: IPR Patient and/or [employer]eer [employer]'s Preferred Geographic Area for Discharge: [address] Patient and/or A[employer]eer [employer]'s Preference for Providers to Include? 1.[facility] [employer] [facility] Patient and/or [employer]'s Preference for Providers to Exclude? 1.none Patient and/or [employer]'s Discussion: Discussed referral process with the patient and/or sales representative metals. Patient and/or sales representative metals isagreeable to have placement referral initiated. Ramonita CALIX RN Clinical [employer] Available thru secure [facility] or [facility] Please note that I am a float long term care pharmacist and may not cover the same service every day. Please call the main Care Management office at [phone] for up-to-date coverage. * Ramonita Quarles RN - 11/09/2024 11:28 AM EDT Discharge Planning Assessment Is the patient able to participate in the assessment?: No Explanation of why patient is unable to participate: AMS Care Management Plan CM spoke with both daughter at bedside. Patient lives in a mobile home with grandson with ramp to enter. Patient teachable caregiver :daughter and grand- children. Daughter or grandchildren can provide transportation home. Patient currently uses [facility] for medication management.CM awaitingon PT/OT recommendation. Facility Planner will continue to follow and assist with discharge planning asneeded. Initial Discharge Planning Expected Discharge Disposition: Inpatient Rehab Facility Transportation Available for Discharge: Ambulance Anticipated DME: unknown at this time Anticipated Services at Discharge: Physical Therapy, Occupational Therapy, Assisted Patient Assessment Completed: Initial Legal Next of Kin Does the patient have a Guardian?: No Spouse: No Adult Child(amanda), List All Adult Children: Yes Name and Contact information: Melvina Mistry [phone] Would you like to add additional adult children?: Yes Name and Contact information: Suzan Thompson [phone] Referral to Social Work to Identify Legal Next of Kin?: No Reviewed and Updated in Demographics? : Yes Advanced Care Planning Has the patient completed Advance Directives?: Completed, Available in Medical Record Reviewed for accuracy with patient?: Yes Medication Management Does the patient have prescription insurance coverage? : Yes Is the patient on Anticoagulation? : Yes Provider or Clinic that manages Anticoagulation?: PCP [facility] [address] [place] [phone] [address] Living Environment and Support System Is the patient from a facility or correction?: No Living Environment: Mobile Home Patient Caregiving Responsibilities: Self Patient-identified caregiver/support network: Family Who does the patient identify as a teachable caregiver(s)?: Child(amanda) - Independent Services Does the patient use a home health or hospice agency?: No Current with dialysis?: No Does the patient use any community programs or services?: No Does patient use DME? : glucometer Does the patient use oxygen?: No Does patient use medical supplies? : glucose testing strips How does patient obtain supplies?: pharmacy Would you like to add additional medical suppliers?: No Anticipated Changes Related to Illness/Injury? : No Initial ADLs Prior to Arrival What is the patient's baseline physical functioning prior to this acute illness?: independent What is the patient's baseline cognitive functioning prior to this acute illness?: independent Is the patient's baseline functioning changed by this acute illness? : Yes Changes observed : Physical, Cognitive Concerns with patient being able to care for themselves at home? : Yes [employer] Does the patient or sales representative metals express financial concerns? : No Ramonita CALIX, RN Clinical [employer] Available thru secure [employer] or [facility] Please note that I am a float long term care pharmacist and may not cover the same service every day. Please call the main Care Management office at [phone] for up-to-date coverage. 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 Will attempt later as able. YUMIKO Torres Time In: 919 Time Out: 919 Total Visit Time: 0 minutes Total Treatment Time (skilled, billable minutes): 0 minutes * Tiarra Tello OT - 11/09/2024 8:31 AM EDT Acute Occupational Therapy Evaluation Prior Gross Functional Mobility: independent Current AM-PAC score(s): CURRENT AM-PAC Activity Raw Score: 12 Based on the above AM-PAC score(s) and OT clinical judgment, discharge destination recommendation is: Inpatient Rehab Facility Supporting Factors (would benefit from skilled therapy services): Decreased endurance, Impaired self-care abilities, Impaired cognitive status Mobility equipment available at home: ADL equipment available at home: Equipment recommendations for discharge: Equipment issued: none Current therapy frequency recommendation(s) in acute: 5 times a week Activity Recommendations for outside of rehab session: 1 person to bathroom Precautions and Weightbearing Status: OT Existing Precautions/Restrictions: fall Telemetry Patient Safety Communication Prior to Visit: Nursing Subjective: Agreeable to therapy, pleasantly confused. Daughter at bedside Pain: General Pain Documentation (Adult, OB, Peds) Presence of Pain: denies pain/discomfort Presence of Pain Score (Auto-calculated): 0 Home Setting Residence: (mobile home) Patient receives help from : none First floor setup: bedroom, tub shower Number of stairs to enter home: 3 steps (has ramp available but not using) Number of stairs in home: 0 Previous Level of Function Gross Functional Mobility: independent Assistive Device: none used Prior level ADL Overview: Independent with all ADLs Dominant Hand: Right Bed Mobility: independent Transfers: independent Stairs: independent Ambulation: independent with all needs Prior Level of Function Details: Patient was independent with all ADL/IADLs including driving priorto hospitalization. No recent falls IADL History IADLs: independent IADL Comments: Driving Objective/Observation: Vitals/Vitals Responses to Treatment: VSS Vision Screen Currently wearing corrective lenses: No Clinical Observations: Right inattention, max cues for scanning to the R side Visual Impairments Observed?: Yes Ocular (Smooth) Pursuits - Descripton: Jerky, Limited range of motion Speech Speech: word-finding difficulties Hearing Hearing: no gross deficits noted Cognition Overall Cognitive Status: Impaired Arousal/Alertness: Generalized responses Orientation Level: Oriented to person Following Commands: Follows commands less than 25% of the time Safety Judgment: Decreased awareness of need for safety, Decreased awareness of need for assistance Awareness of Errors: Assistance required to identify errors made, Assistance required to correct errors made Deficits: Decreased awareness of deficits Attention Span: Attends with cues to redirect, Difficulty attending to directions ADLs: ADL Assessment: Grooming Deficit ADL Anticipated Performance (ADLs not directly observed this session): Eating, Bathing, UE Dressing, LE Dressing, Toileting Eating Assistance: Moderate Grooming Assistance: Moderate Grooming Location: standing at sink Grooming Deficit: Generalized weakness, Activity tolerance Grooming Skilled Rationale (Verbal/Tactile/Visual/Demonstration): Setup, Supervision, Cues for increased safety, Technique of activity Grooming Intervention/Details: Able to appropriately use toothbrush and wash cloth. Cues for scanning to R side to improve overall attention Bathing Assistance: Maximal UE Dressing Assistance: Maximal LE Dressing Assistance: Maximal Toilet Assistance: Maximal Extremity Assessments: RUE Assessment RUE Assessment: Within Functional Limits, Strength WFL LUE Assessment LUE Assessment: Within Functional Limits (4/5) Balance: Sitting Balance Static Sitting-Level of Assistance: Standby Dynamic Sitting-Level of Assistance: Contact guard Skilled Rationale: Hand placement, Verbal cues Standing Balance Static Standing-Level of Assistance: Minimum assistance Dynamic Standing-Level of Assistance: Minimum assistance Standing-Balance Support: Gait belt Skilled Rationale: Verbal cues, Hand placement, Positioning, Sequencing Neuro: Sensation Overall Sensation: (Unable to complete due to cognition) Fine Motor Coordination Additional Documentation: Yes Fine Motor Coordination Left Hand, Manipulation of Objects: mild impairment Right Hand, Manipulation of Objects: normal performance Mobility Assessment: Supine to Sit Mobility Hutchinson Level: Supine->Sit: minimum assist (75% patient effort) Bed Features/Set-up: Supine->Sit: Head of bed elevated Skilled Rationale: Sequencing, Hand placement, Verbal cues Transfer Assessment: Sit to Stand Transfer Hutchinson Level: Sit->Stand: minimum assist (75% patient effort) Assistive Device: Sit->Stand: gait belt Skilled Rationale: Verbal cues, Hand placement, Sequencing Skilled Intervention/Details: Sit->Stand: X 2 trials Functional Mobility: Functional Mobility Hutchinson Level: Functional Mobility/Gait: minimum assist (75% patient effort) Assistive Device: Functional Mobility/Gait: gait belt Functional Mobility Distance: Distance needed to access restroom Functional Mobility Deficits: Activity tolerance, Balance, Generalized weakness Functional Mobility Skilled Rationale: Cues for increased safety, Verbal cues, Technique of activity Skilled Intervention/Details - Functional Mobility/Gait: Cues for scanning CURRENT [facility] Daily Activity Inpatient Short Form Putting on/Taking Off Lower Body Clothin - A Lot of Assistance Bathin - A Lot of Assistance Toiletin - A Lot of Assistance Putting on/Taking Off Upper Body Clothin - A Lot of Assistance Groomin - A Lot of Assistance Eatin - A Lot of Assistance CURRENT [facility] Activity Raw Score: 12 CURRENT [facility] Activity Functional Limitation/Modifier: 66.57% Currently Impaired in Daily Activity- CL Assessment & Plan: Patient was admitted for L M1 Occlusion, R weakness, dysarthria and seen for therapy evaluation related to ADL performance, transfers, cognition, vision. Exam findings include impairments in: aerobic capacity, attention, balance, cognitive impairments, coordination, endurance, strength, transfers. These impairments contribute to occupational performance limitations including bathing, grooming, ADL transfers, toileting, functional mobility, dressing. Patient will benefit from skilled occupational therapy to address these impairments, occupational performance limitations, and participation restrictions. Patient's rehab potential is: good. Planned Therapy Interventions (OT Eval): ADL retraining, IADL retraining, balance training, bed mobility training, transfer training, strengthening, ROM (range of motion), neuromuscular re-education,motor coordination training, functional activity tolerance, fine motor coordination training, cognitive training Patient Instruction/Education this session: Learners: Patient Education provided: Activity outside of therapy Teaching method: Verbal Education/Instruction Learner response: States/Identifies/Teaches back Learning considerations: Cognition Stroke education: Role of rehabilitation discipline Plan for next session: Address functional tasks, scanning Acute OT Goals Plan of Care by Tiarra Goswick, OT at 11/09/2024 11:31 AM Version 1 of 1 Problem: OT - ADLs Goal: Lower Body Dressing - Patient will complete lower body dressing tasks with supervision using adaptive equipment/compensatory strategies as needed for improved ability to complete self-care activities. Outcome: Ongoing Goal: Grooming - Patient will complete grooming in standing with supervision for improved ability to safely complete ADLs. Outcome: Ongoing Goal: Bathing - Patient will perform full body bathing routine with supervision while seated for improved ability to complete self-care activities Outcome: Ongoing Problem: OT - Transfers Goal: Transfers Toilet/ Bedside Commode - Patient will transfer to/from toilet/bedside commode withsupervision for improved ability to safely complete ADLs. Outcome: Ongoing Problem: OT - Balance Goal: Balance - Standing - Patient will perform 10 minutes of functional task in standing with supervision and good balance to promote safety and improved balance required for self-care activities. Outcome: Ongoing Problem: OT - Strength/ROM Goal: Neuro Re-education - Patient will participate in neuro re-ed of left upper extremity with contact guard assistance and 100% accuracy for improved functional use in ADLs. Outcome: Ongoing Problem: OT - Cognition Goal: Cognition - Command Following - Patient will follow 75% of single commands during ADL task. Outcome: Ongoing Goal: Cognition Simple ADL - Patient will demonstrate improved cognition, completing simple ADL task for 5 minutes with no greater than min cues required to maintain attention. Outcome: Ongoing Problem: OT - Vision Goal: Visual Scanning Functional Mobility - Patient will use appropriate visual scanning techniqueswith no greater than min cues during functional mobility to promote safety and success during dailyroutine. Outcome: Ongoing OT treatment consisted of the following to work and progress towards the above goal(s): OT Evaluation and Treatment Time OT Evaluation (Moderate) Time Entry: 20 Evaluating Therapist: Tiarra Tello OT Additional Details: OT Co-Eval/Treatment Information Co-evaluation/co-treatment performed?: Yes, simultaneous billable skilled care was necessary due tomedical complexity and functional deficits Other discipline: PT Rationale for need to co-eval/treat: postural control, cognition OT Evaluation Complexity Occupational Profile and Client History: Moderate - expanded history Assessment of Occupational Performance: Moderate (3-5 performance deficits) Clinical Decision/Performance Deficits: Moderate (detailed assessments w/several treatment options) Time In: 810 Time Out: 830 Total Visit Time: 20 minutes Total Treatment Time (skilled, billable minutes): 20 minutes PPE used during patient interaction: gloves Patient location at end of session: chair Alarms on at end of session: chair alarm Needs in reach. Upon discontinuation of Acute Care Occupational Therapy Services or patient discharge from the hospital this note represents the current Occupational Therapy Discharge Summary. * Abhijeet Yeung, PT - 11/09/2024 8:09 AM EDT Acute Physical Therapy Evaluation Prior Gross Functional Mobility: independent Current AM-PAC score(s): CURRENT AM-PAC Mobility Raw Score: 17 Based on the above AM-PAC score(s) and PT clinical judgment, patient is a good candidate for discharge to Inpatient Rehab Facility Supporting Factors (would benefit from skilled therapy services): Impaired functional status, Impaired balance, Fall risk, Recent decline in functional mobility Mobility equipment available at home: ADL equipment available at home: Equipment needed for discharge: to be determined Current therapy frequency recommendation in acute: PT Therapy Frequency: 5 times a week Activity Recommendations for outside of rehab session: x1 to bathroom Precautions and Weightbearing Status: Existing Precautions/Restrictions: fall Telemetry Patient Safety Communication Prior to Visit: Nursing Subjective: Patient supine in bed and agreeable to therapy. Pain: General Pain Documentation (Adult, OB, Peds) Presence of Pain: denies pain/discomfort Presence of Pain Score (Auto-calculated): 0 Home Setting Residence: (mobile home) Patient receives help from : none First floor setup: bedroom, tub shower Number of stairs to enter home: 3 steps (has ramp available but not using) Number of stairs in home: 0 Previous Level of Function Gross Functional Mobility: independent Assistive Device: none used Prior level ADL Overview: Independent with all ADLs Dominant Hand: Right Bed Mobility: independent Transfers: independent Stairs: independent Ambulation: independent with all needs Prior Level of Function Details: Patient was independent with all ADL/IADLs including driving priorto hospitalization. No recent falls Objective/Observation: Vitals/Vitals Responses to Treatment: VSS O2 Device: nasal cannula Flow (L/min): 2 Cognition Overall Cognitive Status: Unable to assess Arousal/Alertness: Delayed responses to stimuli Orientation Level: Oriented to person Vision Screen Currently wearing corrective lenses: No Speech Speech: word-finding difficulties (aphasia) Hearing Hearing: no gross deficits noted Extremity Assessments: RLE Assessment RLE Assessment: AROM WFL Right LE Assessment Details: unable to formally assess d/t cognition LLE Assessment LLE Assessment: AROM WFL Left LE Assessment Details: unable to formally assess d/t cognition Sensation Overall Sensation: (unable to formally assess d/t cognition) Mobility Assessment: Supine to Sit Mobility Hutchinson Level: Supine->Sit: minimum assist (75% patient effort) Bed Features/Set-up: Supine->Sit: Head of bed elevated, Use of bed rail Skilled Rationale: Verbal cues, Hand placement, Sequencing Balance: Sitting Balance Static Sitting-Level of Assistance: Standby Dynamic Sitting-Level of Assistance: Contact guard Skilled Rationale: Verbal cues, Sequencing, Positioning Standing Balance Static Standing-Level of Assistance: Minimum assistance Dynamic Standing-Level of Assistance: Minimum assistance Standing-Balance Support: Gait belt, Hand-held assist Skilled Rationale: Verbal cues, Hand placement, Sequencing, Facilitate anterior shift, Finding/maintaining midline positioning Transfer Assessment: Sit to Stand Transfer Hutchinson Level: Sit->Stand: minimum assist (75% patient effort) Assistive Device: Sit->Stand: gait belt, hand held assist Skilled Rationale: Verbal cues, Hand placement, Sequencing, Full extension to upright positioning/posture, Upright gaze/neck extension Stand to Sit Transfer Hutchinson Level: Stand->Sit: minimum assist (75% patient effort) Assistive Device: Stand->Sit: gait belt, hand held assist Skilled Rationale: Verbal cues, Hand placement Gait/Functional Mobility: Gait Assessment Hutchinson Level: Gait: minimum assist (75% patient effort) Assistive Device: Gait: gait belt, hand held assist Ambulation Distance (Feet): 15 Gait Deviations Identified: decreased gait speed, decreased heel strike, decreased step length, decreased stride length Gait Skilled Rationale: verbal, tactile, upright posture, increase step length, improve foot placement, increase foot clearance Skilled Intervention/Details - Gait: right inattention throughout requiring frequent cues for scanning. Stairs: CURRENT AM-PAC Basic Mobility Inpatient Short Form Turning over in bed: 3 - A Little Assistance Moving from lying on back to sittin - A Little Assistance Moving to and from bed to chair: 3 - A Little Assistance Sitting/standing from chair: 3 - A Little Assistance Walk in hospital room: 3 - A Little Assistance Climbing 3-5 steps with a railin - A Lot of Assistance CURRENT [facility] Mobility Raw Score: 17 CURRENT -[facility] Mobility Functional Limitation: 50.57% Impaired in Basic Mobility Interventions: Assessment & Plan: Patient was admitted for left M1 occlusion and seen for therapy evaluation related to impaired functional mobility. Exam findings include impairments in: Balance, Transfers, Gait/Locomotion. These impairments contribute to functional limitations including Decreased ambulation distance/endurance, Difficulty stair climbing/descent, Increased fall risk, Difficulty with bed mobility, Difficulty with transfers, Decreased functional mobility, Limited standing tolerance. Current clinical presentation is Evolving - changing/inconsistent clinical characteristics (Moderate). Patient history factors impacting Plan Of Care include . Patient will benefit from skilled physical therapy to address these impairments, functional limitations, and participation restrictions andhas good rehab potential to achieve therapy goals. Planned Therapy Interventions: bed mobility training, balance training, functional activity tolerance, gait training, neuromuscular re-education, transfer training Patient Instruction/Education this session: Learners: Patient, Adult Child/Children Education provided: Plan of care, Role of this discipline Teaching method: Verbal Education/Instruction Learner response: Needs review Learning preferences: (unknown) Learning considerations: Cognition Stroke education: Role of rehabilitation discipline Plan for next session: progress gait Acute PT Goals Plan of Care by Abhijeet Yeung PT at 11/09/2024 8:09 AM Version 1 of 1 Problem: PT - General Goals Goal: Supine <-> Sit Transfers - Patient will perform supine to/from sit transfers with independently and without use of hospital bed features in order to improve functional mobility and safety. Outcome: Ongoing Goal: Sit <-> Stand Transfers - Patient will perform sit to/from stand transfers with standbyassistance and least restrictive device in order to improve functional mobility and safety. Outcome: Ongoing Goal: Ambulation - Patient will ambulate 150 feet with standby assistance and least restrictive device to improve ability to safely navigate home and community. Outcome: Ongoing Goal: Stairs - Patient will ascend/descend 3 stairs with standby assistance, least restrictive device, and single railing(s) to improve ability to safely navigate home and community. Outcome: Ongoing Problem: PT - Outcome Measure Goals Goal: 5x Sit to Stand - Patient will perform 5x Sit to dining room server 15 seconds or less in order to demonstrate reduced fall risk. Outcome: Ongoing PT treatment consisted of the following to progress towards the above goal(s): PT Evaluation and Treatment Time PT Evaluation (Moderate) Time Entry: 21 Evaluating Therapist: Abhijeet Yeung PT Additional Details: PT Co-Eval/Treatment Information Co-evaluation/co-treatment performed?: Yes, simultaneous billable skilled care was necessary due tomedical complexity and functional deficits Other discipline: OT Rationale for need to co-eval/treat: cognition, postural control Evaluation Complexity Components History: High (3 personal factors and/or comorbidities) Body Systems Review: Moderate (Addressing a total of 3 or more elements) Clinical Presentation: Evolving - changing/inconsistent clinical characteristics (Moderate) Clinical Decision Making Complexity: Moderate Time In: 808 Time Out: 829 Total Visit Time: 21 minutes Total Treatment Time (skilled, billable minutes): 21 minutes PPE used during patient interaction: gloves Patient location at end of session: chair Alarms on at end of session: chair alarm, RN aware Needs in reach. Upon discontinuation of Acute Care Physical Therapy Services or patient discharge from the hospitalthis note represents the current Physical Therapy Discharge Summary. * Marcia Laurent DO - 11/09/2024 6:38 AM EDT Images from the original note were not included. NEUROVASCULAR STROKE SERVICE Daily Progress Note IDENTIFYING INFORMATION Elizabeth Henley MR# [id number] 11/09/2024 HISTORY OF PRESENT ILLNESS Elizabeth Henley is a 74 y.o. 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 A stroke alert was called for STAT consultation. LKW unclear, OSH documentation states LKW 0800 but per EMS report, family had normal conversation with her around 1430 but was not seen by them at that time. Family then picked her up for an appointment and noted dysarthria and R-sided weakness. She initially presented to OSH where she was seen by Dr. Peters. NIH 2 (2 language). She was offered lytics, but given unclear LKW and INR 1.5, OSH was not comfortable giving. CTH at OSH unremarkable, CTA with c/f L M1 occlusion with distal reconstitution. She was transferred to [facility] for further evaluation. INTERVAL HISTORY 11/09: admitted to [facility]. PHYSICAL EXAM General: Laying comfortably in bed; in no acute distress. HENT: Normal oropharynx and mucosa. Normal external appearance of ears and nose. Neck: Supple, no pain or tenderness, no lymphadenopathy CV: Pulse is regular, strong in distal extremities. No peripheral edema. Pulmonary: Normal respiratory effort. No accessory muscle use. On room air. Abdomen: Soft, non-tender. No hepatosplenomegaly. Ext: No cyanosis, edema, or deformity. Skin: No rash. Skin warm and dry. Neurologic Examination Mental status/Cognition: alert; not oriented to age or month; good attention; no apparent neglect; not following commands Speech/language: states address when asked for her name, saying words out of context, mild dysarthria; comprehension somewhat intact; unable to name objects; repetition not intact Cranial nerves: CN II Visual shearer full to confrontation without visual extinction CN III,IV, PERRL. EOMI CN V Facial sensation intact to light touch bilaterally in V1, V2, V3 CN VII Face, Smile, Eyebrow raise/closure symmetric CN VIII Hearing grossly intact to voice CN IX & X Soft palate elevates symmetrically in the midline, mild dysarthria CN XI Shoulder shrug with full strength CN XII Tongue protrudes midline Motor: Normal bulk and tone. - Left arm: no drift - Right arm: no drift - Left leg: no drift - Right leg: no drift Sensation: intact to light touch throughout without extinction Coordination/Complex Motor: no obvious ataxia in arm or leg movements NIHSS 11/09/2024 Provider NIH Stroke Scale NIH Level of Conciousness (Provider): 0 NIH LOC Questions (Provider): 2 NIH LOC Commands (Provider): 2 NIH Best Gaze (Provider): 0 NIH Visual (Provider): 0 NIH Facial Palsy (Provider): 0 NIH Left Arm Motor (Provider): 0 NIH Right Arm Motor (Provider): 0 NIH Left Leg Motor (Provider): 0 NIH Right Leg Motor (Provider): 0 NIH Limb Ataxia (Provider): 0 NIH Sensory (Provider): 0 NIH Best Language (Provider): 2 NIH Dysarthria (Provider): 0 NIH Extinction and Inattention (Provider): 0 NIH Total Score (Provider): 6 ASSESSMENT AND PLAN R sided weakness and dysarthria L MCA infarct, severe stenosis of L M1: - Etiology by TOAST Criteria - cardioembolism - CT head: No definite findings of large vessel occlusion. Of note, there is reported history of left M1 occlusion. No obvious findings of large infarct but evolving infarct in areas of prior ischemia/infarction be difficult to entirely exclude. Consider MRI. - CTA brain/neck: No significant stenosis of the carotid or vertebral arteries in the neck. 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 - CTP: Small core infarct with ischemic penumbra in left MCA distribution in keeping with reported M1 occlusion - MRI: Acute infarct involving the left temporal lobe consistent with a left MCA infarct. No evidence of hemorrhagic transformation - SBP: <220 - LDL: 81 - A1C: 6.9 - TTE: cardiac rhythm is irregular. EF 62%. Left atrium moderately enlarged. Mitral valve moderately calcified. Trace to mild regurgitation. Moderate stenosis with mean gradient 10 mmHg. Mild to moderate tricuspid regurg. - Statin therapy: atorvastatin 40mg - Antiplatelet therapy: ASA 81mg. Discontinue Plavix. - Anticoagulation: Holding home Coumadin. Plan to start Eliquis on 11/12. Ischemic Stroke Core Measures - NIHSS on admission 6 - Patient has been started on Mechanical (SCD's) and Pharmacological (SQ heparin/Lovenox) DVT prophylaxis. - Antiplatelet therapy has been initiated, Aspirin 81 mg daily - Anticoagulation therapy was not indicated for this patient -Patients LDL and HgbA1c were checked and the patient will be discharged on a lipid lowering statinif LDL >70 and glucose management if A1c >6.5%. - Dysphagia screening ordered, and will be completed prior to patient receiving oral intake. - Stroke education booklet has been ordered and will be provided by the RN that includes both written and verbal education to the patient and family regarding ischemic strokes. We have reviewed the patient's personal modifiable risk factors. - Patient is being assessed for Rehab by PT/OT/Speech and PM&R if indicated. Hx of atrial thrombus Atrial fibrillation (new diagnosis) - holding home coumadin - plan to start Eliquis 11/12 Other Medical Problems: DM: SSI HLD: started on atorvastatin 40 mg qday COPD: home Trelegy not available on formulary. Breztri ordered instead. Hypothyroidism: continued on home Synthroid Diet: DIET NPO WITHOUT meds DVT prophylaxis: Lovenox Code status: Full Code Dispo: pending PT/OT evaluation Staff: Dr. Perez. Signed, Marcia Laurent, DO PGY-4, Neurology VITAL SIGNS Temp: [97.4 F (36.3 C)-97.8 F (36.6 C)] 97.8 F (36.6 C) Pulse (Heart Rate): [56-100] 100 Resp Rate: [13-28] 28 BP: (115-184)/(54-77) 118/56 O2 Sat (%): [86 %-100 %] 91 % Weight: [99.8 kg (220 lb)-104.5 kg (230 lb 4.8 oz)] 99.8 kg (220 lb) Oxygen Therapy: Oxygen Therapy O2 Sat (%): 91 % O2 Device: room air Flow (L/min): 2 Oxygen Delivery/Consumption Hemodynamics BSA (Calculated - sq m): 2.11 m2 Intake/Output: Intake/Output Summary (Last 24 hours) at 11/09/2024 0638 Last data filed at 11/09/2024 0400 Gross per 24 hour Intake 500.22 ml Output -- Net 500.22 ml LABS/CULTURES Lab Results Component Value Date WBC 10.12 11/09/2024 HGB 14.6 11/09/2024 HCT 49.4 (H) 11/09/2024 PLATELET 194 11/09/2024 MCV 91.5 11/09/2024 Lab Results Component Value Date SODIUM 140 11/09/2024 POTASSIUM 4.2 11/09/2024 CHLORIDE 103 11/09/2024 CO2 31 11/09/2024 BUN 11 11/09/2024 CREATSERUM 0.82 11/09/2024 GLUCOSE 126 11/09/2024 Lab Results Component Value Date CHOLESTEROL 151 11/08/2024 TRIG 55 11/08/2024 HDL 59 11/08/2024 LDLCALC 81 11/08/2024 Lab Results Component Value Date HGBA1C 6.9 (H) 11/08/2024 Lab Results Component Value Date ALBUMIN 3.9 11/08/2024 , No results found for: CPK, TROP IMAGING/DIAGNOSTIC STUDIES MRI BRAIN WITHOUT CONTRAST Final Result IMPRESSION: Acute infarct involving the left temporal lobe consistent with a left MCA infarct. No evidence of hemorrhagic transformation ANGIO BRAIN/NECK Final Result IMPRESSION: 1. No significant stenosis of the carotid or vertebral arteries in the neck. 2. 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 Findings were discussed with Anh Gonzalez MD at 8:41 PM on November 08, 2024. I personally viewed and interpreted these images and I have reviewed and approved this report. CEREBRAL PERFUSION ANALYSIS Final Result IMPRESSION: Small core infarct with ischemic penumbra in left MCA distribution in keeping with reported M1 occlusion I personally viewed and interpreted these images and I have reviewed and approved this report. STROKE HEAD-STROKE ALERT ONLY Final Result IMPRESSION: No definite findings of large vessel occlusion. Of note, there is reported history of left M1 occlusion. No obvious findings of large infarct but evolving infarct in areas of prior ischemia/infarction be difficult to entirely exclude. Consider MRI. Findings were discussed with Anh Gonzalez MD at 6:25 PM on November 08, 2024. I personally viewed and interpreted these images and I have reviewed and approved this report. CARDIOGRAM (Results Pending) MEDICATIONS aspirin 81 mg Oral Daily Or aspirin 300 mg Rectal Daily Clopidogrel 75 mg Oral Daily Or Clopidogrel 75 mg Per NG tube Daily enoxaparin 40 mg Subcutaneous Daily Insulin lispro Subcutaneous 4x daily w/meals, HS Levothyroxine 88 mcg Oral Before BKF Senna 8.6 mg Oral QAM Or Senna 8.6 mg Per NG tube QAM Cosigned by Sameera Perez DO at 11/09/2024 3:20 PM EDT Associated attestation - Sameera Perez DO - 11/09/2024 3:20 PM EDT I saw and independently examined the patient on 11/09/2024. I agree with the history, examination, and medical decision making as outlined. In addition, please see below. Please see my attestation for this date on the History & Physical. Sameera Perez D.O. Vascular Neurology [facility] * ABA Knight - 11/08/2024 6:54 PM EDT Care Management Progress Note SW responded to field activated stroke alert. Patient brought in by [employer] [facility]. Emergency contacts: None found, although EMS reports that patient's daughter is en route from the [place], [place] area. SW is available for assistance while patient is in the ED. Travis WALTON, [facility] Medical Social Work * Jessie Campbell RPH - 11/08/2024 6:31 PM EDT Department of Pharmacy Emergency Department Stroke Alert Response Note Patient Name: Elizabeth Henley Room/Bed: E034/E034 A Pharmacist responded to the stroke alert. Last known well was established to be 08:00 (?, per outside hospital paperwork but unclear). The Thrombolytic Therapy for Acute Ischemic Stroke Checklist was completed by neurology who deemed the patient ineligible for thrombolytic therapy. The IHIS order set ED: Confirmed Stroke/ICH - Secondary was placed by Dr. Forrest for ongoing care. Verified orders for anti-hypertensive therapy with correct blood pressure goals (SBP <220 mmHg / DBP <120 mmHg) have been placed. Please feel free to contact me with any further questions. Name: Jessie Campbell RPH Phone: [phone] Date/Time: 11/08/2024 6:31 PM [facility] Plan of care note* Plan of Care - Ramonita Pappas, PT - 11/11/2024 10:52 AM EDT Problem: PT - General Goals Goal: Sit <-> Stand Transfers - Patient will perform sit to/from stand transfers with standbyassistance and least restrictive device in order to improve functional mobility and safety. Outcome: Progressing Goal: Ambulation - Patient will ambulate 150 feet with standby assistance and least restrictive device to improve ability to safely navigate home and community. Outcome: Progressing [facility]04-10-[facility]25 Hospital course Narrative* Marcia Laurent, - 11/11/2024 9:18 AM EDT Images from the original note were not included. Discharge Summary Name: Elizabeth Henley Age: 74 y.o. Birthday: 1950 Admit Date: 11/08/2024 6:05 PM Discharge Date: 11/11/24 Discharge Time: 1400 Discharge Unit: Neurovascular Admission Information Admitting Physician: Sameera Perez DO Discharge Information Discharge Physician: Sameera Perez DO Problem List Active Hospital Problems Diagnosis Stroke Type 2 diabetes mellitus with hyperglycemia Resolved Hospital Problems No resolved problems to display. Brief Summary of Hospital Course for Discharge Summary: Elizabeth Henley is a 74 y.o. 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 A stroke alert was called for STAT consultation. LKW unclear, OSH documentation states LKW 0800 but per EMS report, family had normal conversation with her around 1430 but was not seen by them at that time. Family then picked her up for an appointment and noted dysarthria and R-sided weakness. She initially presented to OSH where she was seen by Dr. Peters. NIH 2 (2 language). She was offered lytics, but given unclear LKW and INR 1.5, OSH was not comfortable giving. CTH at OSH unremarkable, CTA with c/f L M1 occlusion with distal reconstitution. She was transferred to [facility] for further evaluation. R sided weakness and dysarthria acute encephalopathy due to L MCA infarct, present on admission L MCA infarct, severe stenosis of L M1: Admitted to neurovascular service for further monitoring and evaluation. CT perfusion revealed small core infarct with ischemic penumbra in left MCA distribution in keeping with reported M1 occlusion. MRI brain confirmed acute L MCA infarct without evidence of hemorrhagic transformation. LDL 81. Started on atorvastatin 40 mg daily. A1C 6.9. Echo with irregular rhythm, moderately enlarged left atrium, moderately calcified mitral valve, mild to moderate tricuspid regurg. Home coumadin held. Initially started on DAPT therapy but decision made to discontinue Plavix given history of afib. Plan to stop coumadin and start Eliquis 5 mg every 12 hours on 11/12. Hypoxia during sleep Possible MURIEL Plan to discuss PCP regarding possible outpatient sleep study. Hypothyroidism - Continued on home Synthroid COPD - home Trelegy not available on formulary. Breztri ordered instead. DM - home Farxiga. Not available on formulary. SSI during hospitalization. Brief Summary of Consults for Discharge Summary: Brief Summary of Procedures and Imaging for Discharge Summary: ECHOCARDIOGRAM Final Result MRI BRAIN WITHOUT CONTRAST Final Result IMPRESSION: Acute infarct involving the left temporal lobe consistent with a left MCA infarct. No evidence of hemorrhagic transformation ANGIO BRAIN/NECK Final Result IMPRESSION: 1. No significant stenosis of the carotid or vertebral arteries in the neck. 2. 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 Findings were discussed with Anh Gonzalez MD at 8:41 PM on November 08, 2024. I personally viewed and interpreted these images and I have reviewed and approved this report. CEREBRAL PERFUSION ANALYSIS Final Result IMPRESSION: Small core infarct with ischemic penumbra in left MCA distribution in keeping with reported M1 occlusion I personally viewed and interpreted these images and I have reviewed and approved this report. STROKE HEAD-STROKE ALERT ONLY Final Result IMPRESSION: No definite findings of large vessel occlusion. Of note, there is reported history of left M1 occlusion. No obvious findings of large infarct but evolving infarct in areas of prior ischemia/infarction be difficult to entirely exclude. Consider MRI. Findings were discussed with Anh Gonzalez MD at 6:25 PM on November 08, 2024. I personally viewed and interpreted these images and I have reviewed and approved this report. Summary of last selected lab results and date obtained: Lab Results Component Value Date WBC 8.88 11/11/2024 HGB 13.9 11/11/2024 HCT 45.9 (H) 11/11/2024 PLATELET 190 11/11/2024 MCV 89.3 11/11/2024 Lab Results Component Value Date SODIUM 136 11/11/2024 POTASSIUM 4.1 11/11/2024 CHLORIDE 101 11/11/2024 CO2 26 11/11/2024 BUN 14 11/11/2024 CREATSERUM 0.85 11/11/2024 GLUCOSE 110 11/11/2024 Lab Results Component Value Date ALT 7 (L) 11/08/2024 AST 12 11/08/2024 ALKPHOS 101 11/08/2024 BILITOTAL 0.6 11/08/2024 BILIDIRECT 0.1 11/08/2024 Brief Summary of Labs for Discharge Summary: No discharge procedures on file. Current Outpatient Meds: Medication List for when you go home START taking these medications Morning Afternoon Evening Bedtime As Needed apixaban 5 MG TABS Take 1 tablet by mouth every 12 hours. Commonly known as: ELIQUIS For diagnoses: Cerebrovascular accident (CVA), unspecified mechanism 1 tablet 1 tablet Follow-up: [address] [address] Cosigned by Sameera Perez DO at 11/11/2024 5:32 PM EDT Associated attestation - Sameera Perez DO - 11/11/2024 5:32 PM EDT I saw and independently examined the patient on 11/11/2024. I agree with the history, examination, and medical decision making as outlined. In addition, please see below. 74F w/ DM, anemia, prior atrial thrombus on coumadin, HTN, COPD. 11/08/24 acute dysarthria and R weakness. NIHSS 2. INR 1.5. CTA w/ L M1 thrombus. NIHSS 6 on arrival to [facility]. Repeat CTA w/ near resolution of thrombus. MRI w/ infarct of left anterior temporal lobe. LDL 81, A1c 6.9%. New diagnosis Afib. Exam: R neglect, aphasia, not answer questions. NIHSS 9 (neglect 1, aphasia 2, questions 2, commands 1, L eye blind 3) Cardioembolic infarct 2/2 new diagnosis afib w/ subtherapeutic INR Plan: Continue aspirin 81 for intracranial stenosis. Start eliquis 5mg bid tomorrow (11/12). Atorva 40. Discharge to [facility] today. Spent less than 30 minutes on discharge. Sameera Perez D.O. Vascular Neurology [facility] documented [facility] Plan of care note* Plan of Care - Loretta Parker RN - 11/11/2024 1:10 AM EDT Problem: Adult Inpatient Plan of Care Goal: Plan of Care Review Outcome: Progressing Goal: Patient-Specific Goal (Individualized) Outcome: Progressing Goal: Absence of Hospital-Acquired Illness or Injury Outcome: Progressing Goal: Optimal Comfort and Wellbeing Outcome: Progressing Goal: Readiness for Transition of Care Outcome: Progressing Problem: Stroke, Ischemic (Includes Transient Ischemic Attack) Goal: Optimal Coping Outcome: Progressing Goal: Effective Bowel Elimination Outcome: Progressing Goal: Optimal Cerebral Tissue Perfusion Outcome: Progressing Goal: Optimal Cognitive Function Outcome: Progressing Goal: Improved Communication Skills Outcome: Progressing Goal: Optimal Functional Ability Outcome: Progressing Goal: Optimal Nutrition Intake Outcome: Progressing Goal: Effective Oxygenation and Ventilation Outcome: Progressing Goal: Improved Sensorimotor Function Outcome: Progressing Goal: Safe and Effective Swallow Outcome: Progressing Goal: Effective Urinary Elimination Outcome: Progressing [facility]04-09[facility] Plan of care note* Plan of Care - YUMIKO Fowler - 11/10/2024 11:43 AM EDT Problem: LICENSED VETERINARY TECHNICIAN - Language Goal: Command Following - Patient will complete 1-step commands with 70% accuracy with fading cues in order to improve direction following for functional gains in ability to participate more independently in care Outcome: Ongoing Goal: Yes/No Response - Patient will answer yes/no questions related to current situation/environment with 70% accuracy with fading cues in order to improve ability to answer questions related to care Outcome: Ongoing Goal: Communicate Wants/Needs - Patient will independently communicate basic wants/needs via any communication modality on at least 3 opportunities to improve functional communication and ability to direct care Outcome: Ongoing Problem: LICENSED VETERINARY TECHNICIAN - Cognition Goal: Ongoing Assessment - Patient will participate in ongoing dynamic assessment of motor speech, expressive/receptive language, and cognitive- linguistic skills across 1 session to better assess deficits and most appropriately guide LICENSED VETERINARY TECHNICIAN plan of care Outcome: Ongoing [facility]04-09-2025 Plan of care note* Plan of Care - Abhijeet Yeung, PT - 11/10/2024 10:28 AM EDT Problem: PT - General Goals Goal: Sit <-> Stand Transfers - Patient will perform sit to/from stand transfers with standbyassistance and least restrictive device in order to improve functional mobility and safety. Outcome: Progressing Goal: Ambulation - Patient will ambulate 150 feet with standby assistance and least restrictive device to improve ability to safely navigate home and community. Outcome: Progressing Problem: PT - Outcome Measure Goals Goal: 5x Sit to Stand - Patient will perform 5x Sit to dining room server 15 seconds or less in order to demonstrate reduced fall risk. Outcome: Progressing [facility]04-09-2025 Plan of care note* Plan of Care - Tiarra Tello OT - 11/10/2024 10:11 AM EDT Problem: OT - ADLs Goal: Lower Body Dressing - Patient will complete lower body dressing tasks with supervision using adaptive equipment/compensatory strategies as needed for improved ability to complete self-care activities. Outcome: Progressing Goal: Grooming - Patient will complete grooming in standing with supervision for improved ability to safely complete ADLs. Outcome: Progressing Goal: Bathing - Patient will perform full body bathing routine with supervision while seated for improved ability to complete self-care activities Outcome: Progressing Problem: OT - Transfers Goal: Transfers Toilet/ Bedside Commode - Patient will transfer to/from toilet/bedside commode withsupervision for improved ability to safely complete ADLs. Outcome: Progressing Problem: OT - Balance Goal: Balance - Standing - Patient will perform 10 minutes of functional task in standing with supervision and good balance to promote safety and improved balance required for self-care activities. Outcome: Progressing Problem: OT - Cognition Goal: Cognition - Command Following - Patient will follow 75% of single commands during ADL task. Outcome: Progressing Goal: Cognition Simple ADL - Patient will demonstrate improved cognition, completing simple ADL task for 5 minutes with no greater than min cues required to maintain attention. Outcome: Progressing Problem: OT - Vision Goal: Visual Scanning Functional Mobility - Patient will use appropriate visual scanning techniqueswith no greater than min cues during functional mobility to promote safety and success during dailyroutine. Outcome: Progressing [facility]04-09-2025 Plan of care note* Plan of Care - Loretta Parker RN - 11/10/2024 12:40 AM EDT Problem: Adult Inpatient Plan of Care Goal: Plan of Care Review Outcome: Progressing Goal: Patient-Specific Goal (Individualized) Outcome: Progressing Goal: Absence of Hospital-Acquired Illness or Injury Outcome: Progressing Goal: Optimal Comfort and Wellbeing Outcome: Progressing Goal: Readiness for Transition of Care Outcome: Progressing Problem: Stroke, Ischemic (Includes Transient Ischemic Attack) Goal: Optimal Coping Outcome: Progressing Goal: Effective Bowel Elimination Outcome: Progressing Goal: Optimal Cerebral Tissue Perfusion Outcome: Progressing Goal: Optimal Cognitive Function Outcome: Progressing Goal: Improved Communication Skills Outcome: Progressing Goal: Optimal Functional Ability Outcome: Progressing Goal: Optimal Nutrition Intake Outcome: Progressing Goal: Effective Oxygenation and Ventilation Outcome: Progressing Goal: Improved Sensorimotor Function Outcome: Progressing Goal: Safe and Effective Swallow Outcome: Progressing Goal: Effective Urinary Elimination Outcome: Progressing [facility]04-08-2025 History and physical note* Sameera Perez DO - 11/09/2024 3:17 PM EDT NEUROVASCULAR ATTENDING HISTORY & PHYSICAL 74F w/ DM, anemia, prior atrial thrombus on coumadin, HTN, COPD. 11/08/24 acute dysarthria and R weakness. NIHSS 2. INR 1.5. CTA w/ L M1 thrombus. NIHSS 6 on arrival to [facility]. Repeat CTA w/ near resolution of thrombus. MRI w/ infarct of left anterior temporal lobe. LDL 81, A1c 6.9%. New diagnosis Afib. Exam: R neglect, aphasia, not answer questions. NIHSS 9 (neglect 1, aphasia 2, questions 2, commands 1, L eye blind 3) Cardioembolic infarct 2/2 new diagnosis afib w/ subtherapeutic INR Plan: Continue aspirin 81 for intracranial stenosis. Start eliquis 5mg bid on 11/12 - will send pharmacy check now for chew. Atorva 40. PT/OT/LICENSED VETERINARY TECHNICIAN. Verify med rec and allergy list. Sameera Perez D.O. Vascular Neurology [facility] History and physical note* Smaeera Perez DO - 11/09/2024 3:17 PM EDT NEUROVASCULAR ATTENDING HISTORY & PHYSICAL 74F w/ DM, anemia, prior atrial thrombus on coumadin, HTN, COPD. 11/08/24 acute dysarthria and R weakness. NIHSS 2. INR 1.5. CTA w/ L M1 thrombus. NIHSS 6 on arrival to [facility]. Repeat CTA w/ near resolution of thrombus. MRI w/ infarct of left anterior temporal lobe. LDL 81, A1c 6.9%. New diagnosis Afib. Exam: R neglect, aphasia, not answer questions. NIHSS 9 (neglect 1, aphasia 2, questions 2, commands 1, L eye blind 3) Cardioembolic infarct 2/2 new diagnosis afib w/ subtherapeutic INR Plan: Continue aspirin 81 for intracranial stenosis. Start eliquis 5mg bid on 11/12 - will send pharmacy check now for chew. Atorva 40. PT/OT/LICENSED VETERINARY TECHNICIAN. Verify med rec and allergy list. Sameera Perez D.O. Vascular Neurology [facility] Plan of care note* Plan of Care - Tiarra Tello OT - 11/09/2024 11:31 AM EDT Problem: OT - ADLs Goal: Lower Body Dressing - Patient will complete lower body dressing tasks with supervision using adaptive equipment/compensatory strategies as needed for improved ability to complete self-care activities. Outcome: Ongoing Goal: Grooming - Patient will complete grooming in standing with supervision for improved ability to safely complete ADLs. Outcome: Ongoing Goal: Bathing - Patient will perform full body bathing routine with supervision while seated for improved ability to complete self-care activities Outcome: Ongoing Problem: OT - Transfers Goal: Transfers Toilet/ Bedside Commode - Patient will transfer to/from toilet/bedside commode withsupervision for improved ability to safely complete ADLs. Outcome: Ongoing Problem: OT - Balance Goal: Balance - Standing - Patient will perform 10 minutes of functional task in standing with supervision and good balance to promote safety and improved balance required for self-care activities. Outcome: Ongoing Problem: OT - Strength/ROM Goal: Neuro Re-education - Patient will participate in neuro re-ed of left upper extremity with contact guard assistance and 100% accuracy for improved functional use in ADLs. Outcome: Ongoing Problem: OT - Cognition Goal: Cognition - Command Following - Patient will follow 75% of single commands during ADL task. Outcome: Ongoing Goal: Cognition Simple ADL - Patient will demonstrate improved cognition, completing simple ADL task for 5 minutes with no greater than min cues required to maintain attention. Outcome: Ongoing Problem: OT - Vision Goal: Visual Scanning Functional Mobility - Patient will use appropriate visual scanning techniqueswith no greater than min cues during functional mobility to promote safety and success during dailyroutine. Outcome: Ongoing [facility] Plan of care note* Plan of Care - Abhijeet Yeung PT - 11/09/2024 8:09 AM EDT Problem: PT - General Goals Goal: Supine <-> Sit Transfers - Patient will perform supine to/from sit transfers with independently and without use of hospital bed features in order to improve functional mobility and safety. Outcome: Ongoing Goal: Sit <-> Stand Transfers - Patient will perform sit to/from stand transfers with standbyassistance and least restrictive device in order to improve functional mobility and safety. Outcome: Ongoing Goal: Ambulation - Patient will ambulate 150 feet with standby assistance and least restrictive device to improve ability to safely navigate home and community. Outcome: Ongoing Goal: Stairs - Patient will ascend/descend 3 stairs with standby assistance, least restrictive device, and single railing(s) to improve ability to safely navigate home and community. Outcome: Ongoing Problem: PT - Outcome Measure Goals Goal: 5x Sit to Stand - Patient will perform 5x Sit to dining room server 15 seconds or less in order to demonstrate reduced fall risk. Outcome: Ongoing [facility]04-07-20[facility] Plan of care note* Plan of Care - Tyesha Cody RN - 11/08/2024 11:35 PM EDT Problem: Adult Inpatient Plan of Care Goal: Plan of Care Review Outcome: Progressing Goal: Patient-Specific Goal (Individualized) Outcome: Progressing Goal: Optimal Comfort and Wellbeing Outcome: Progressing Goal: Readiness for Transition of Care Outcome: Progressing Problem: Stroke, Ischemic (Includes Transient Ischemic Attack) Goal: Optimal Coping Outcome: Progressing Goal: Optimal Cognitive Function Outcome: Progressing Goal: Improved Communication Skills Outcome: Progressing Goal: Effective Urinary Elimination Outcome: Progressing [facility]04-07-2025 NoteAcute Coronary Syndrome (ACS): Initial Evaluation and Management: [email or web address] [facility]04-07-2025 Plan of care note* Plan of Care - Anh Gonzalez MD - 11/08/2024 7:24 PM EDT Note of Medical Necessity Contrast-induced BYRON.--The risk of CI-BYRON is substantially less than the risk of CA-BYRON, but the actual risk remains uncertain in patients with severe kidney disease. Several large controlled observational studies have shown no evidence of CI-BYRON regardless of CKD stage, whereas others found evidence of CI-BYRON only in patients with severely reduced kidney function. In such studies, the risk of CI-BYRON has been estimated to be near 0% at eGFR greater than or equal to 45, 0%- 2% at eGFR of 30-44, and 0%-17% at eGFR less than 30 mL/min/1.73 m2. These studies are underpowered to establish risk in patients with severe kidney disease, differ in their conclusions about risk in patients with eGFR less than 30 mL/min/1.73 m2 (estimated CI-BYRON risk range, 0%-17%), and are observational in design (ie,only known confounders can be addressed). There are no randomized trials differentiating CA-BYRON from CI-BYRON in patients with eGFR less than 30 mL/min/1.73 m2. [Consensus Statements from ACR and NKF; Huff et al. 2020] The benefits of performing the ordered CT scan(s) with contrast outweigh the risks of contrast-induced BYRON. Anh Gonzalez MD PGY-2 Neurology [facility]04-[facility] Emergency department Note* Cortez Rodriges RN - 11/08/2024 6:32 PM EDT Bed: E035 Expected date: Expected time: Means of arrival: Comments: 34 [facility]04-07-2025 Emergency department Note* Cortez Rodriges RN - 11/08/2024 6:32 PM EDT Bed: E035 Expected date: Expected time: Means of arrival: Comments: 34 * Audelia Wood MD - 11/08/2024 6:26 PM EDT ED ATTENDING NOTE Chief Complaint: No chief complaint on file. HPI: Elizabeth Henley is a 74 y.o. female History of Present Illness 74-year-old individual presents for stroke evaluation. Last known well state uncertain. Normal conversation at 1430 hours, then slurred speech and right-sided weakness. Evaluated at [facility] by stroke network neurologist. NIHSS score 4.CT head and CTA head showed left MCA M1 occlusion. On Coumadin, compliant. Stroke network neurologist recommended TNK for INR <1.7; INR was 1.5. ED physician did not administer TNK. Upon transfer, GCS 14, NIHSS score 3-4, aphasia and slurred speech improved. At [facility], NIHSS score 2-3. Glucose 125. Received Zofran during flight. History of Coumadin compliance. Left AC infiltrate due to IV contrast. Stable vitals. Last dose of Coumadin believed to be this morning. MEDICATIONS Coumadin, Zofran Past Medical History: No past medical history on file. Family history reviewed and noncontributory other than: No family history on file. Social history reviewed and noncontributory other than: Social History Socioeconomic History Marital status: Not on file Spouse name: Not on file Number of children: Not on file Years of education: Not on file Highest education level: Not on file Occupational History Not on file Tobacco Use Smoking status: Not on file Smokeless tobacco: Not on file Substance and Sexual Activity Alcohol use: Not on file Drug use: Not on file Sexual activity: Not on file Other Topics Concern Not on file Social History Narrative Not on file Social Drivers of Health Financial Resource Strain: Not on file Food Insecurity: Not on file Transportation Needs: Not on file Physical Activity: Not on file Stress: Not on file Social Connections: Not on file Personal Safety: Not on file Housing Stability: Not on file Vital Signs: BP 154/76 Pulse 87 Resp 16 SpO2 97% Pertinent Exam: Physical Exam Neurologic exam performed. No acute distress Abdomen is soft, mild right lower quadrant tenderness Vital Signs Oxygen saturation 88%. With 2 L of oxygen up to 98% Chronic venous stasis changes of the bilateral lower extremities Assessment/Plan/Disposition: Results Laboratory Studies INR 1.5. Glucose 125. Imaging CT head, CTA head: left MCA M1 occlusion. Assessment & Plan Medical Decision Making 1. CVA. Presented with slurred speech and right-sided weakness. CT head and CTA head confirmed left MCA M1 occlusion. On Coumadin, INR 1.5. Stroke network neurologist recommended TNK for INR <1.7, but ED physician did not administer. No initial interventions. NIH score 2-3, glucose 125. Received Zofran in flight. This patient was seen and evaluated in conjunction with the neurovascular team as a stroke alert. Patient with a large vessel occlusion plan for neurosurgery consultation for definitive treatment Critical Care Time: I have spent 35 minutes (excludes procedural time) stabilizing this critically ill patient. Time spent is a reflection of my efforts to prevent clinical deterioration, initiate therapies, coordinate care, and to prevent further decompensation in this patient. Amount and/or Complexity of Data Reviewed External Data Reviewed: labs, radiology and notes. Labs: ordered. Decision-making details documented in ED Course. Radiology: ordered and independent interpretation performed. Decision-making details documented in ED Course. ECG/medicine tests: ordered and independent interpretation performed. Decision- making details documented in ED Course. Details: Sinus rhythm, rate within normal limits, no acute STT wave changes to suggest acute ischemia Discussion of management or test interpretation with external provider(s): Discussed with neurosurgery they feel that this is likely stenosis and not a true LV 0 patient also has reconstitution of flow beyond the stenosis Risk OTC drugs. Prescription drug management. Decision regarding hospitalization. Risk Details: This patient will need hospitalization for continuous telemetry monitoring, frequent neurological checks this patient is at increased risk for worsening neurological deficits which could lead to impaired ability to complete activities of daily living On 11/08/2024 I saw and examined the patient. I discussed the history and examination with the resident physician and I agree with the plan of care. Voice recognition software was used for documentation and errors in procurement analyst may have occurreddespite proof reading. Audelia Wood MD ED Attending Physician Audelia Wood MD 11/08/242033 * Pam Forrest MD - 11/08/2024 6:23 PM EDT Note of Medical Necessity Contrast-induced BYRON.--The risk of CI-BYRON is substantially less than the risk of CA-BYRON, but the actual risk remains uncertain in patients with severe kidney disease. Several large controlled observational studies have shown no evidence of CI-BYRON regardless of CKD stage, whereas others found evidence of CI-BYRON only in patients with severely reduced kidney function. In such studies, the risk of CI-BYRON has been estimated to be near 0% at eGFR greater than or equal to 45, 0%- 2% at eGFR of 30-44, and 0%-17% at eGFR less than 30 mL/min/1.73 m2. These studies are underpowered to establish risk in patients with severe kidney disease, differ in their conclusions about risk in patients with eGFR less than 30 mL/min/1.73 m2 (estimated CI-BYRON risk range, 0%-17%), and are observational in design (ie,only known confounders can be addressed). There are no randomized trials differentiating CA-BYRON from CI-BYRON in patients with eGFR less than 30 mL/min/1.73 m2. [Consensus Statements from ACR and NKF; Huff et al. 2020] The benefits of performing the ordered CT scan(s) with contrast outweigh the risks of contrast-induced BYRON. We will need to go over recommended daily contrast limit to complete necessary medical care. Pam Forrest MD Resident 11/08/24 1823 * Pam Forrest MD - 11/08/2024 6:18 PM EDT DEPARTMENT OF EMERGENCY MEDICINE CHIEF COMPLAINT No chief complaint on file. HPI Elizabeth Henley is a 74 y.o. female who presents as a transfer from an outside hospital as an ischemic stroke alert. LKW 1430. Pt presented to OSH with slurred speech, R facial droop, R sided weakness.L MCA LVO on imaging. Pt takes Coumadin, physician did not feel comfortable giving TNK with INR 1.5. Pt transferred to [facility] for further care. Pt repeating home address, unable to meaningfully participate in conversation. PAST MEDICAL HISTORY reviewed and noncontributory other than as per HPI and: No past medical history on file. SURGICAL HISTORY reviewed and noncontributory other than as per HPI and: No past surgical history on file. CURRENT MEDICATIONS reviewed and noncontributory other than as per HPI and: Current Facility-Administered Medications Medication Dose Route Frequency Provider Last Rate Last Admin hydrALAZINE (APRESOLINE) injection 10 mg 10 mg Intravenous Q10 MIN PRN Pam Forrest MD Labetalol (NORMODYNE) injection 20 mg 20 mg Intravenous Q10 MIN PRN Pam Forrest MD No current outpatient medications on file. ALLERGIES Not on File Patient denies further drug allergies FAMILY HISTORY reviewed and noncontributory other than as per HPI and: No family history on file. SOCIAL HISTORY reviewed and noncontributory other than as per HPI and: Social History Socioeconomic History Marital status: Not on file Spouse name: Not on file Number of children: Not on file Years of education: Not on file Highest education level: Not on file Occupational History Not on file Tobacco Use Smoking status: Not on file Smokeless tobacco: Not on file Substance and Sexual Activity Alcohol use: Not on file Drug use: Not on file Sexual activity: Not on file Other Topics Concern Not on file Social History Narrative Not on file Social Drivers of Health Financial Resource Strain: Not on file Food Insecurity: Not on file Transportation Needs: Not on file Physical Activity: Not on file Stress: Not on file Social Connections: Not on file Personal Safety: Not on file Housing Stability: Not on file PHYSICAL EXAM BP 154/76 Pulse 87 Resp 16 SpO2 97% GENERAL: Appears stated age. No acute distress. EYES: No conjunctival injection or pallor. No scleral icterus. No eye discharge. PERRLA. EOMI. HENT: Atraumatic, Normocephalic. Trachea midline. CV: Regular rate and rhythm, nl S1/S2, no m/r/g. No peripheral edema or JVD. Brisk cap refill and 2+ pulses in all extremities. RESP: Appropriate effort. CTAB without wheezes rales or rhonchi. Symmetric breath sounds. GI: Soft, not distended. Lower abdominal tenderness to palpation. Normoactive bowel sounds. No obvious masses. MSK: No obvious injuries, lacerations, or deformities. SKIN: Warm and dry. No obvious rashes. NEURO: Answers orientation questions with home address and numbers. Able to follow commands. R facial droop, slurred speech. PSYCH: Appropriate mood and affect. ED COURSE & MEDICAL DECISION MAKING Assessment: Elizabeth Henley is a 74 y.o. female who presents as a stroke alert with the following neurological deficits: slurred speech, nonsensical speech, R sided deficits. The patient was met in theCT scanner by myself and the neurology resident. The patient was found to be hemodynamically stableand protecting airway. NIH by my exam was 6. DDx: cerebrovascular accident, transient ischemic attack, complex migraine, seizure, metabolic abnormalities, intracranial mass, urinary tract infection. Plan: - Stroke Alert - Labs: CBC, chemistries, coags, LFTs, POC glucose, UA - Imaging: CT Head w/o contrast, CTA, CTP - BP control with prn Labetalol/Hydralazine - Neuro checks - Neurovascular consult ED Course and Medical Decision-Making: On CT angio, the M1 occlusion is more consistent with stenosis rather than an acute thrombus. Patient was admitted to neurovascular service for further care. Neurological deficits had not resolved attime of admission. Disposition: Admit This patient was discussed with the attending physician who was in the immediate care area during the evaluation and decision making process. Pam Forrest MD Resident 11/08/24 2333 * Tari Alvarenga RN - 11/08/2024 6:06 PM EDT Pt arrives to ED for eval of slurred speech and right sided weakness. Pt with L MCA, M1 occulusion via CT performed at OSH. Pt did not get TNK d/t unknown LKW. Pt currently with NIH of 2 per helicopter crew. Pt arrives with infiltrate of IV contrast to LAC that occurred at OSH. Pt did have a normalconversion with her daughter earlier today but when she picked her up for an appointment she had slu rred speech and right sided weakness. Pt does take coumadin, unsure last dose. * Cortez Rodriges RN - 11/08/2024 6:05 PM EDT Bed: E034 Expected date: Expected time: Means of arrival: Comments: Expected: Armando Henley [id number] Phys[facility] Emergency department Note* Audelia Wood MD - 11/08/2024 6:26 PM EDT ED ATTENDING NOTE Chief Complaint: No chief complaint on file. HPI: Elizabeth Henley is a 74 y.o. female History of Present Illness 74-year-old individual presents for stroke evaluation. Last known well state uncertain. Normal conversation at 1430 hours, then slurred speech and right-sided weakness. Evaluated at [facility] by stroke network neurologist. NIHSS score 4.CT head and CTA head showed left MCA M1 occlusion. On Coumadin, compliant. Stroke network neurologist recommended TNK for INR <1.7; INR was 1.5. ED physician did not administer TNK. Upon transfer, GCS 14, NIHSS score 3-4, aphasia and slurred speech improved. At [facility], NIHSS score 2-3. Glucose 125. Received Zofran during flight. History of Coumadin compliance. Left AC infiltrate due to IV contrast. Stable vitals. Last dose of Coumadin believed to be this morning. MEDICATIONS Coumadin, Zofran Past Medical History: No past medical history on file. Family history reviewed and noncontributory other than: No family history on file. Social history reviewed and noncontributory other than: Social History Socioeconomic History Marital status: Not on file Spouse name: Not on file Number of children: Not on file Years of education: Not on file Highest education level: Not on file Occupational History Not on file Tobacco Use Smoking status: Not on file Smokeless tobacco: Not on file Substance and Sexual Activity Alcohol use: Not on file Drug use: Not on file Sexual activity: Not on file Other Topics Concern Not on file Social History Narrative Not on file Social Drivers of Health Financial Resource Strain: Not on file Food Insecurity: Not on file Transportation Needs: Not on file Physical Activity: Not on file Stress: Not on file Social Connections: Not on file Personal Safety: Not on file Housing Stability: Not on file Vital Signs: BP 154/76 Pulse 87 Resp 16 SpO2 97% Pertinent Exam: Physical Exam Neurologic exam performed. No acute distress Abdomen is soft, mild right lower quadrant tenderness Vital Signs Oxygen saturation 88%. With 2 L of oxygen up to 98% Chronic venous stasis changes of the bilateral lower extremities Assessment/Plan/Disposition: Results Laboratory Studies INR 1.5. Glucose 125. Imaging CT head, CTA head: left MCA M1 occlusion. Assessment & Plan Medical Decision Making 1. CVA. Presented with slurred speech and right-sided weakness. CT head and CTA head confirmed left MCA M1 occlusion. On Coumadin, INR 1.5. Stroke network neurologist recommended TNK for INR <1.7, but ED physician did not administer. No initial interventions. NIH score 2-3, glucose 125. Received Zofran in flight. This patient was seen and evaluated in conjunction with the neurovascular team as a stroke alert. Patient with a large vessel occlusion plan for neurosurgery consultation for definitive treatment Critical Care Time: I have spent 35 minutes (excludes procedural time) stabilizing this critically ill patient. Time spent is a reflection of my efforts to prevent clinical deterioration, initiate therapies, coordinate care, and to prevent further decompensation in this patient. Amount and/or Complexity of Data Reviewed External Data Reviewed: labs, radiology and notes. Labs: ordered. Decision-making details documented in ED Course. Radiology: ordered and independent interpretation performed. Decision-making details documented in ED Course. ECG/medicine tests: ordered and independent interpretation performed. Decision- making details documented in ED Course. Details: Sinus rhythm, rate within normal limits, no acute STT wave changes to suggest acute ischemia Discussion of management or test interpretation with external provider(s): Discussed with neurosurgery they feel that this is likely stenosis and not a true LV 0 patient also has reconstitution of flow beyond the stenosis Risk OTC drugs. Prescription drug management. Decision regarding hospitalization. Risk Details: This patient will need hospitalization for continuous telemetry monitoring, frequent neurological checks this patient is at increased risk for worsening neurological deficits which could lead to impaired ability to complete activities of daily living On 11/08/2024 I saw and examined the patient. I discussed the history and examination with the resident physician and I agree with the plan of care. Voice recognition software was used for documentation and errors in procurement analyst may have occurreddespite proof reading. Audelia Wood MD ED Attending Physician Audelia Wood MD 11/08/242033 [facility]04-07-2025 Emergency department Note* Pam Forrest MD - 11/08/2024 6:23 PM EDT Note of Medical Necessity Contrast-induced BYRON.--The risk of CI-BYRON is substantially less than the risk of CA-BYRON, but the actual risk remains uncertain in patients with severe kidney disease. Several large controlled observational studies have shown no evidence of CI-BYRON regardless of CKD stage, whereas others found evidence of CI-BYRON only in patients with severely reduced kidney function. In such studies, the risk of CI-BYRON has been estimated to be near 0% at eGFR greater than or equal to 45, 0%- 2% at eGFR of 30-44, and 0%-17% at eGFR less than 30 mL/min/1.73 m2. These studies are underpowered to establish risk in patients with severe kidney disease, differ in their conclusions about risk in patients with eGFR less than 30 mL/min/1.73 m2 (estimated CI-BYRON risk range, 0%-17%), and are observational in design (ie,only known confounders can be addressed). There are no randomized trials differentiating CA-BYRON from CI-BYRON in patients with eGFR less than 30 mL/min/1.73 m2. [Consensus Statements from ACR and NKF; Huff et al. 2020] The benefits of performing the ordered CT scan(s) with contrast outweigh the risks of contrast-induced BYRON. We will need to go over recommended daily contrast limit to complete necessary medical care. Pam Forrest MD Resident 11/08/24 7408 [facility] Work Phone: [phone]) 666-104904-07-2025 Consult note* Anh Gonzalez MD - 11/08/2024 6:22 PM EDT Images from the original note were not included. NEUROVASCULAR EVALUATION NOTE Date of Evaluation: November 08, 2024 Unit: [id number] Consultation requested by: Dr. Audelia Wood MD Patient status: Emergency Length of stay: 0 days Chief Complaint / Reason for Consult L M1 occlusion History of present Illness Elizabeth Henley is a 74 y.o. 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 A stroke alert was called for STAT consultation. LKW unclear, OSH documentation states LKW 0800 but per EMS report, family had normal conversation with her around 1430 but was not seen by them at that time. Family then picked her up for an appointment and noted dysarthria and R-sided weakness. She initially presented to OSH where she was seen by Dr. Peters. NIH 2 (2 language). She was offered lytics, but given unclear LKW and INR 1.5, OSH was not comfortable giving. CTH at OSH unremarkable, CTA with c/f L M1 occlusion with distal reconstitution. She was transferred to [facility] for further evaluation. Neurovascular-specific History / Information Patient Location - Onset of Symptoms: Not in a healthcare setting Patient first presented to an [facility] ED facility: no Last Known Well: Date: 11/08/24 Last Known Well: Time: 0800 Source of information: Outside facility medical record - Home antiplatelet / anticoagulation therapy: Anticoagulation: Coumadin. - Patient current risk factors: Stroke risk factors include hypertension, atrial fibrillation, or diabetes mellitus. Prior stroke history: Yes, unknown location - Stroke Diagnostic/Treatment Eligibility Information: She was not a candidate for thrombolytic (tPA/TNK) d/t unclear LKW She was not a candidate for thrombectomy d/t imaging demonstrating MCA stenosis rather than thrombus - Stroke Clinical Assessment Information: NIHSS (Provider) Flowsheet Row First Filed Value Provider NIH Stroke Scale NIH Interval (Provider) -- NIH Level of Conciousness (Provider) 0 filed on 11/08/2024 182 NIH LOC Questions (Provider) 2 filed on 11/08/2024 182 NIH LOC Commands (Provider) 2 filed on 11/08/2024 182 NIH Best Gaze (Provider) 0 filed on 11/08/2024 182 NIH Visual (Provider) 0 filed on 11/08/2024 182 NIH Facial Palsy (Provider) 0 filed on 11/08/2024 182 NIH Left Arm Motor (Provider) 0 filed on 11/08/2024 182 NIH Right Arm Motor (Provider) 0 filed on 11/08/2024 182 NIH Left Leg Motor (Provider) 0 filed on 11/08/2024 182 NIH Right Leg Motor (Provider) 0 filed on 11/08/20241820 NIH Limb Ataxia (Provider) 0 filed on 11/08/20241820 NIH Sensory (Provider) 0 filed on 11/08/20241820 NIH Best Language (Provider) 2 filed on 11/08/20241820 NIH Dysarthria (Provider) 0 filed on 11/08/20241820 NIH Extinction and Inattention (Provider) 0 filed on 11/08/20241820 NIH Total Score (Provider) 6 filed on 11/08/20241820 Is NIH=0 Within 180 min of Last Known Well Time? -- Stroke Scales Flowsheet Row Most Recent Value Modified Jessy Scale Score Premorbid (MRSS) 3 filed on 11/08/20241845 NIH Total Score (Provider) 6 filed on 11/08/20241820 Past History No past medical history on file. No past surgical history on file. No family history on file. Not on File Medications None Review of Systems Per HPI Vitals Temp: [97.6 F (36.4 C)] 97.6 F (36.4 C) Pulse (Heart Rate): [80-87] 80 Resp Rate: [16] 16 BP: (141-154)/(76-77) 141/77 O2 Sat (%): [86 %-97 %] 97 % Weight: [104.5 kg (230 lb 4.8 oz)] 104.5 kg (230 lb 4.8 oz) There is no height or weight on file to calculate BMI. Patient Lines/Drains/Airways Status Active Lines, Drains, Airways, & Wound Overview Name Placement date Placement time Site Days Peripheral IV Line - Single Lumen 11/08/241818 forearm, anterior, right 20 gauge;1 1/4 in length 11/08/241818 -- less than 1 Physical Exam General Physical Exam General: NAD, lying comfortably in bed HENT: Normal oropharynx and mucosa. Normal external appearance of ears and nose. CV/Chest: Regular rate Lungs: No audible wheezing. Normal work of breathing. No accessory muscle use Abdomen: Non distended, non tender Extremities: Warm and well perfused. No appreciable edema, cyanosis or deformity. Skin: No rash. Neurologic Examination Mental status/Cognition: alert; unable to answer orientation questions, unable to follow commands Speech/language: perseverated on her address when asked questions or to name objects Cranial nerves: CN II Visual shearer full to confrontation without visual extinction CN III,IV, PERRL. EOMI. CN V Facial sensation intact to light touch bilaterally in V1, V2, V3 CN VII Face, Smile, Eyebrow raise/closure symmetric. CN VIII Hearing grossly intact to voice CN IX & X Soft palate elevates symmetrically in the midline, no dysarthria CN XI Shoulder shrug with full strength CN XII Tongue protrudes midline Motor: Normal bulk and tone. All extremities antigravity without drift Sensation: intact to light touch throughout without extinction Coordination/Complex Motor: -Unable to test Laboratory Results CBC: Chem: Bun/Creat/Cl/CO2/Glucose: --/--/--/--/84 (11/08 1810) Electrolytes: Coags: Lipid panel: No results found for: CHOLESTEROL, TRIG, HDL, LDLCALC, LDLDIRECT HA1C: No results found for: HGBA1C Imaging - 11/08/2024 CT Head: Early ischemic changes in L MCA territory - 11/08/2024 CTA brain/neck: severe L M1 stenosis with distal reconstitution - 11/08/2024 CT Perfusion: Mismatch volume 19cc, mismatch ratio 4.2 Assessment Elizabeth Henley is a 74 y.o. female with PMH significant for DM, GERD, anemia, depression, COPD, atrial thrombus on coumadin, HTN who presents as level A stroke alert for c/f L M1 occlusion. LKW 0800, although this is somewhat unclear. She spoke with family around 1430 and sounded normal and when they picked her up for an appointment, she was noted to be dysarthric with R-sided weakness. No lytics were given d/t unclear LKW and INR 1.5 with coumadin use. CTH with possible early ischemic changes in L MCA territory. CTA demonstrates severe L M1 stenosis with distal reconstitution, so pt is not a candidate for thrombectomy. Will admit to [place] service for further stroke workup. She will be loaded with DAPT. Plan Aphasia L M1 stenosis -Patient is not a candidate for iv thrombolysis due to unclear LKW/INR 1.5 with coumadin use and nothrombectomy due to no clear LVO -Please admit to neurovascular service PCU, attending Dr. Perez. An ischemic stroke without IV thrombolysis order set has been signed and held. -Swallow evaluation prior to any oral intake -Load with ASA 325mg and plavix 300mg -ASA 81mg and plavix 75mg thereafter -Blood pressure goals with SBP less than 220 -Obtain MRI brain, stroke protocol -ECHO to evaluate cardiac function -Lipid panel, LFTs and HgbA1c to evaluate secondary risk factors for ischemic stroke -Baseline EKG, if not done in ED. Continuous telemetry -PT, OT, Speech and clinical social work aide consults Ischemic Stroke Core Measures -NIHSS on admission 6 -Patient has been started on Mechanical (SCD's) and Pharmacological (SQ heparin/Lovenox) DVT prophylaxis. -Antiplatelet therapy will be be initiated as/if appropriate, Aspirin 81mg daily. -Patients LDL and HgbA1c were checked and the patient will be discharged on a lipid lowering statinif LDL >70 and glucose management if A1c >6.5%. -Dysphagia screening ordered, and will be completed prior to patient receiving oral intake. -Stroke education booklet has been ordered and will be provided by the RN that includes both written and verbal education to the patient and family regarding ischemic strokes. We have reviewed the patient's personal modifiable risk factors. -Patient is being assessed for Rehab by PT/OT/Speech and PM&R if indicated. T2DM -Hold home dapaglaflozin, linagliptin, and metformin -SSI while admitted Atrial thrombus -Hold home coumadin for now -DAPT as above Chronic Medical Conditions COPD: continue home PRN albuterol Hypothyroidism: continue home levothyroxine 88mcg daily Diet: NPO till swallow screen DVT prophylaxis: SQL Code status: Presumed Full (was unable to formally assess code status as pt is aphasic and no family was present/no contact info available) Dispo: Admit to neurovasc Staff: Dr. Perez, neurovascular attending. Thank you for the opportunity to take part in the care of this patient. Signed, Anh Gonzalez MD PGY-2 Neurology Cosigned by Sameera Perez DO at 11/09/2024 3:16 PM EDT [facility]04-07-2025 Consult note* Anh Gonzalez MD - 11/08/2024 6:22 PM EDT Images from the original note were not included. NEUROVASCULAR EVALUATION NOTE Date of Evaluation: November 08, 2024 Unit: E035/E035 Consultation requested by: Dr. Audelia Wood MD Patient status: Emergency Length of stay: 0 days Chief Complaint / Reason for Consult L M1 occlusion History of present Illness Elizabeth Henley is a 74 y.o. 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 A stroke alert was called for STAT consultation. LKW unclear, OSH documentation states LKW 0800 but per EMS report, family had normal conversation with her around 1430 but was not seen by them at that time. Family then picked her up for an appointment and noted dysarthria and R-sided weakness. She initially presented to OSH where she was seen by Dr. Peters. NIH 2 (2 language). She was offered lytics, but given unclear LKW and INR 1.5, OSH was not comfortable giving. CTH at OSH unremarkable, CTA with c/f L M1 occlusion with distal reconstitution. She was transferred to [facility] for further evaluation. Neurovascular-specific History / Information Patient Location - Onset of Symptoms: Not in a healthcare setting Patient first presented to an [facility] ED facility: no Last Known Well: Date: 11/08/24 Last Known Well: Time: 0800 Source of information: Outside facility medical record - Home antiplatelet / anticoagulation therapy: Anticoagulation: Coumadin. - Patient current risk factors: Stroke risk factors include hypertension, atrial fibrillation, or diabetes mellitus. Prior stroke history: Yes, unknown location - Stroke Diagnostic/Treatment Eligibility Information: She was not a candidate for thrombolytic (tPA/TNK) d/t unclear LKW She was not a candidate for thrombectomy d/t imaging demonstrating MCA stenosis rather than thrombus - Stroke Clinical Assessment Information: NIHSS (Provider) Flowsheet Row First Filed Value Provider NIH Stroke Scale NIH Interval (Provider) -- NIH Level of Conciousness (Provider) 0 filed on 11/08/2024 182 NIH LOC Questions (Provider) 2 filed on 11/08/2024 182 NIH LOC Commands (Provider) 2 filed on 11/08/2024 182 NIH Best Gaze (Provider) 0 filed on 11/08/2024 182 NIH Visual (Provider) 0 filed on 11/08/2024 182 NIH Facial Palsy (Provider) 0 filed on 11/08/2024 182 NIH Left Arm Motor (Provider) 0 filed on 11/08/2024 182 NIH Right Arm Motor (Provider) 0 filed on 11/08/2024 182 NIH Left Leg Motor (Provider) 0 filed on 11/08/2024 182 NIH Right Leg Motor (Provider) 0 filed on 11/08/2024 182 NIH Limb Ataxia (Provider) 0 filed on 11/08/2024 182 NIH Sensory (Provider) 0 filed on 11/08/2024 182 NIH Best Language (Provider) 2 filed on 11/08/2024 182 NIH Dysarthria (Provider) 0 filed on 11/08/2024 182 NIH Extinction and Inattention (Provider) 0 filed on 11/08/20241820 NIH Total Score (Provider) 6 filed on 11/08/20241820 Is NIH=0 Within 180 min of Last Known Well Time? -- Stroke Scales Flowsheet Row Most Recent Value Modified [place] Scale Score Premorbid (MRSS) 3 filed on 11/08/2024 1846 NIH Total Score (Provider) 6 filed on 11/08/2024 182 Past History No past medical history on file. No past surgical history on file. No family history on file. Not on File Medications None Review of Systems Per HPI Vitals Temp: [97.6 F (36.4 C)] 97.6 F (36.4 C) Pulse (Heart Rate): [80-87] 80 Resp Rate: [16] 16 BP: (141-154)/(76-77) 141/77 O2 Sat (%): [86 %-97 %] 97 % Weight: [104.5 kg (230 lb 4.8 oz)] 104.5 kg (230 lb 4.8 oz) There is no height or weight on file to calculate BMI. Patient Lines/Drains/Airways Status Active Lines, Drains, Airways, & Wound Overview Name Placement date Placement time Site Days Peripheral IV Line - Single Lumen 11/08/241818 forearm, anterior, right 20 gauge;1 1 in length 11/08/241818 -- less than 1 Physical Exam General Physical Exam General: NAD, lying comfortably in bed HENT: Normal oropharynx and mucosa. Normal external appearance of ears and nose. CV/Chest: Regular rate Lungs: No audible wheezing. Normal work of breathing. No accessory muscle use Abdomen: Non distended, non tender Extremities: Warm and well perfused. No appreciable edema, cyanosis or deformity. Skin: No rash. Neurologic Examination Mental status/Cognition: alert; unable to answer orientation questions, unable to follow commands Speech/language: perseverated on her address when asked questions or to name objects Cranial nerves: CN II Visual shearer full to confrontation without visual extinction CN III,IV, PERRL. EOMI. CN V Facial sensation intact to light touch bilaterally in V1, V2, V3 CN VII Face, Smile, Eyebrow raise/closure symmetric. CN VIII Hearing grossly intact to voice CN IX & X Soft palate elevates symmetrically in the midline, no dysarthria CN XI Shoulder shrug with full strength CN XII Tongue protrudes midline Motor: Normal bulk and tone. All extremities antigravity without drift Sensation: intact to light touch throughout without extinction Coordination/Complex Motor: -Unable to test Laboratory Results CBC: Chem: Bun/Creat/Cl/CO2/Glucose: --/--/--/--/84 (11/08 1810) Electrolytes: Coags: Lipid panel: No results found for: CHOLESTEROL, TRIG, HDL, LDLCALC, LDLDIRECT HA1C: No results found for: HGBA1C Imaging - 11/08/2024 CT Head: Early ischemic changes in L MCA territory - 11/08/2024 CTA brain/neck: severe L M1 stenosis with distal reconstitution - 11/08/2024 CT Perfusion: Mismatch volume 19cc, mismatch ratio 4.2 Assessment Elizabeth Henley is a 74 y.o. female with PMH significant for DM, GERD, anemia, depression, COPD, atrial thrombus on coumadin, HTN who presents as level A stroke alert for c/f L M1 occlusion. LKW 0800, although this is somewhat unclear. She spoke with family around 1430 and sounded normal and when they picked her up for an appointment, she was noted to be dysarthric with R-sided weakness. No lytics were given d/t unclear LKW and INR 1.5 with coumadin use. CTH with possible early ischemic changes in L MCA territory. CTA demonstrates severe L M1 stenosis with distal reconstitution, so pt is not a candidate for thrombectomy. Will admit to [place] service for further stroke workup. She will be loaded with DAPT. Plan Aphasia L M1 stenosis -Patient is not a candidate for iv thrombolysis due to unclear LKW/INR 1.5 with coumadin use and nothrombectomy due to no clear LVO -Please admit to neurovascular service PCU, attending Dr. Perez. An ischemic stroke without IV thrombolysis order set has been signed and held. -Swallow evaluation prior to any oral intake -Load with ASA 325mg and plavix 300mg -ASA 81mg and plavix 75mg thereafter -Blood pressure goals with SBP less than 220 -Obtain MRI brain, stroke protocol -ECHO to evaluate cardiac function -Lipid panel, LFTs and HgbA1c to evaluate secondary risk factors for ischemic stroke -Baseline EKG, if not done in ED. Continuous telemetry -PT, OT, Speech and clinical social work aide consults Ischemic Stroke Core Measures -NIHSS on admission 6 -Patient has been started on Mechanical (SCD's) and Pharmacological (SQ heparin/Lovenox) DVT prophylaxis. -Antiplatelet therapy will be be initiated as/if appropriate, Aspirin 81mg daily. -Patients LDL and HgbA1c were checked and the patient will be discharged on a lipid lowering statinif LDL >70 and glucose management if A1c >6.5%. -Dysphagia screening ordered, and will be completed prior to patient receiving oral intake. -Stroke education booklet has been ordered and will be provided by the RN that includes both written and verbal education to the patient and family regarding ischemic strokes. We have reviewed the patient's personal modifiable risk factors. -Patient is being assessed for Rehab by PT/OT/Speech and PM&R if indicated. T2DM -Hold home dapaglaflozin, linagliptin, and metformin -SSI while admitted Atrial thrombus -Hold home coumadin for now -DAPT as above Chronic Medical Conditions COPD: continue home PRN albuterol Hypothyroidism: continue home levothyroxine 88mcg daily Diet: NPO till swallow screen DVT prophylaxis: SQL Code status: Presumed Full (was unable to formally assess code status as pt is aphasic and no family was present/no contact info available) Dispo: Admit to neurovasc Staff: Dr. Perez, neurovascular attending. Thank you for the opportunity to take part in the care of this patient. Signed, Anh Gonzalez MD PGY-2 Neurology Cosigned by Sameera Perez DO at 11/09/2024 3:16 PM EDT documented in this [facility]04-07-2025 Physician Emergency department Note* Pam Forrest MD - 11/08/2024 6:18 PM EDT DEPARTMENT OF EMERGENCY MEDICINE CHIEF COMPLAINT No chief complaint on file. HPI Elizabeth Henley is a 74 y.o. female who presents as a transfer from an outside hospital as an ischemic stroke alert. LKW 1430. Pt presented to OSH with slurred speech, R facial droop, R sided weakness.L MCA LVO on imaging. Pt takes Coumadin, physician did not feel comfortable giving TNK with INR 1.5. Pt transferred to [facility] for further care. Pt repeating home address, unable to meaningfully participate in conversation. PAST MEDICAL HISTORY reviewed and noncontributory other than as per HPI and: No past medical history on file. SURGICAL HISTORY reviewed and noncontributory other than as per HPI and: No past surgical history on file. CURRENT MEDICATIONS reviewed and noncontributory other than as per HPI and: Current Facility-Administered Medications Medication Dose Route Frequency Provider Last Rate Last Admin hydrALAZINE (APRESOLINE) injection 10 mg 10 mg Intravenous Q10 MIN PRN Pam Forrest MD Labetalol (NORMODYNE) injection 20 mg 20 mg Intravenous Q10 MIN PRN Pam Forrest MD No current outpatient medications on file. ALLERGIES Not on File Patient denies further drug allergies FAMILY HISTORY reviewed and noncontributory other than as per HPI and: No family history on file. SOCIAL HISTORY reviewed and noncontributory other than as per HPI and: Social History Socioeconomic History Marital status: Not on file Spouse name: Not on file Number of children: Not on file Years of education: Not on file Highest education level: Not on file Occupational History Not on file Tobacco Use Smoking status: Not on file Smokeless tobacco: Not on file Substance and Sexual Activity Alcohol use: Not on file Drug use: Not on file Sexual activity: Not on file Other Topics Concern Not on file Social History Narrative Not on file Social Drivers of Health Financial Resource Strain: Not on file Food Insecurity: Not on file Transportation Needs: Not on file Physical Activity: Not on file Stress: Not on file Social Connections: Not on file Personal Safety: Not on file Housing Stability: Not on file PHYSICAL EXAM BP 154/76 Pulse 87 Resp 16 SpO2 97% GENERAL: Appears stated age. No acute distress. EYES: No conjunctival injection or pallor. No scleral icterus. No eye discharge. PERRLA. EOMI. HENT: Atraumatic, Normocephalic. Trachea midline. CV: Regular rate and rhythm, nl S1/S2, no m/r/g. No peripheral edema or JVD. Brisk cap refill and 2+ pulses in all extremities. RESP: Appropriate effort. CTAB without wheezes rales or rhonchi. Symmetric breath sounds. GI: Soft, not distended. Lower abdominal tenderness to palpation. Normoactive bowel sounds. No obvious masses. MSK: No obvious injuries, lacerations, or deformities. SKIN: Warm and dry. No obvious rashes. NEURO: Answers orientation questions with home address and numbers. Able to follow commands. R facial droop, slurred speech. PSYCH: Appropriate mood and affect. ED COURSE & MEDICAL DECISION MAKING Assessment: Elizabeth Kale is a 74 y.o. female who presents as a stroke alert with the following neurological deficits: slurred speech, nonsensical speech, R sided deficits. The patient was met in theCT scanner by myself and the neurology resident. The patient was found to be hemodynamically stableand protecting airway. NIH by my exam was 6. DDx: cerebrovascular accident, transient ischemic attack, complex migraine, seizure, metabolic abnormalities, intracranial mass, urinary tract infection. Plan: - Stroke Alert - Labs: CBC, chemistries, coags, LFTs, POC glucose, UA - Imaging: CT Head w/o contrast, CTA, CTP - BP control with prn Labetalol/Hydralazine - Neuro checks - Neurovascular consult ED Course and Medical Decision-Making: On CT angio, the M1 occlusion is more consistent with stenosis rather than an acute thrombus. Patient was admitted to neurovascular service for further care. Neurological deficits had not resolved attime of admission. Disposition: Admit This patient was discussed with the attending physician who was in the immediate care area during the evaluation and decision making process. Pam Forrest MD Resident 11/08/24 2562 [facility]04-07-2025 Emergency department Note* Tari Alvarenga RN - 11/08/2024 6:06 PM EDT Pt arrives to ED for eval of slurred speech and right sided weakness. Pt with L MCA, M1 occulusion via CT performed at OSH. Pt did not get TNK d/t unknown LKW. Pt currently with NIH of 2 per helicopter crew. Pt arrives with infiltrate of IV contrast to LAC that occurred at OSH. Pt did have a normalconversion with her daughter earlier today but when she picked her up for an appointment she had slu rred speech and right sided weakness. Pt does take coumadin, unsure last dose. [facility]04-07-2025 Emergency department Note* Cortez Rodriges RN - 11/08/2024 6:05 PM EDT Bed: E034 Expected date: Expected time: Means of arrival: Comments: Expected: Armando Henley [facility]04-07-2025 Radiology Diagnostic study note [facility] [address] [place] [address] STROKE CTA Head AND Neck W/Con MR#: [id number] Acct: [id number] Name: ELIZABETH HENLEY Rep #: [id number] : 1950 F 74 From: Shima Gaston MD PCP: Dr. Alejandro Rosales MD Status: REG ER Study:STROKE CTA Head AND Neck W/Con Date of Exam: 11/08/24 Exam# [id number] Ordering Dr: Breann Maldonado DO PROCEDURE: STROKE CTA HEAD AND NECK W/CON 11/08/2024 REASON FOR EXAM: NEURO DEFICIT, ACUTE, STROKE SUSPECTED, R SIDED TECHNIQUE: CTA imaging of the head and neck from the aortic arch to the skull vertex with intravenous contrast. Coronal and Sagittal reconstruction series were provided. 3D, 3D post processing, 3D reconstructions, Maximum intensity projection (MIPs) Volume rendering and Shaded surface rendering was provided. CONTRAST: Isovue 370 VOLUME: 100 mL One or more dose reduction techniques were used (e.g., Automated exposure control, adjustment of the mA and/or kV according to patient size, use of iterative reconstruction technique). RADIATION DOSE SUMMARY: CTDlvol: 46 mGy DLP: 815 mGycm COMPARISON: Same-day CT head. FINDINGS: See same day noncontrast CT head for discussion of nonvascular findings. Three-vessel aortic arch with mild calcific plaque of the origin of the left subclavian artery off the aortic arch resulting in mild stenosis. The bilateral vertebral arteries are widely patent without focalstenosis or occlusion. The left cervical carotid artery, carotid bulb and internal carotid artery are widely patent without focal stenosis or narrowing by NASCET criteria. Minimal calcific plaque of the right cervical internal carotid arterywithout significant narrowing by NASCET criteria. Moderate calcific plaque of the bilateral carotid siphons resulting in mild multifocal narrowing. The bilateral anterior, right middle, and bilateral posterior cerebral arteries are widely patent. Focal high- grade stenosis/occlusion of the M1 segment of the left MCA, measuring approximately 0.4 cm (series 2, image 400). There is normal distal reconstitution of the distal M1. No aneurysm or arteriovenous malformation. Major venous structures: Unremarkable. Other findings: Cervical spondylosis. CT/STROKE CTA Head AND Neck W/Con IMPRESSION: 1. 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 Findings are indeterminate in chronicity. Recommend CT perfusion or neurointerventional consult for further evaluation. 2. Moderate calcific plaque of the bilateral carotid siphons resulting in mild multifocal narrowing. 3. Mild calcific plaque of the left subclavian artery just distal to its origin resulting in mild stenosis. Dr. Gaston discussed these findings with Dr. Maldonado via telephone at 4:25 p.m.on 11/08/2024. Reading Location: [facility] CC: Dr. Alejandro Rosales MD; Dr. Phillip Maldonado DO ~ Bolt Maker: Signed [facility]04-07-2025 Radiology Diagnostic study note [facility] [address] [place] [address] [id number] STROKE Brain/Head without Cont MR#: [id number] Acct: [id number] Name: ELIZABETH HENLEY Rep #: [id number] : 1950 F 74 From: Shima Gaston MD PCP: Dr. Alejandro Rosales MD Status: [facility] ER Study:STROKE Brain/Head without Cont Date of Exam: 11/08/24 Exam# [id number] Ordering Dr: Breann Maldonado DO EXAM: STROKE BRAIN/HEAD WITHOUT CONT CLINICAL HISTORY: 74 y/o F with NEURO DEFICIT, ACUTE, STROKE SUSPECTED. COMPARISON: None. TECHNIQUE: Routine CT imaging of the head without IV contrast. Additional multiplanar reformats were obtained. Dose reduction techniques were used including intermediate exposure control (AEC),iterative reconstruction technique, and/or mA and/or KV dose adjustments based on patient's size. FINDINGS: Mild generalized cerebral volume loss with concordant prominence of the ventricles and subarachnoidspaces. Chronic lacunar type infarct within the left basal ganglia. Moderate patchy supratentorial white matter hypodensities. The egan-white matter interfaces are otherwise maintained. No acute intracranial hemorrhage or herniation. The orbits, visualized paranasal sinuses and mastoids are unremarkable. No acute calvarial fracture or scalp hematoma. CT/STROKE Brain/Head without Cont IMPRESSION: 1. No acute intracranial finding. 2. Findings of chronic microvascular ischemic changes and age-related changes. Reading Location: [id number] CC: Dr. Alejandro Rosales MD; Dr. Phillip Maldonado DO ~ Bolt Maker: Signed [facility]02-18-2025 Evaluation note* Diagnosis Onset Date Resolution Status Admit Date Contusion acute September 21, 2024 9:53am Contusion acute September 30, 2024 2:38pm [facility] Work Phone: 1(598) 500-449402-18-2025 Evaluation note* Diagnosis Onset Date Resolution Status Admit Date Contusion inactive September 21, 2024 9:53am Contusion inactive September 30, 2024 2:38pm Acute cerebrovascular accide nt (CVA) inactive November 08, 2024 3:18pm Atrial fibrillation acute November 11, 2024 6:06pm Colon cancer acute November 11, 2024 6:06pm Debility acute November 11 6:06pm Global aphasia acute November 6:06pm Hypoxia acute November 11 6:06pm Left acute arterial ischemic stroke, MCA (middle cerebral artery) acute November 11, 2024 6:06pm Pulmonary hypertension acute Ap ril 2024 6:06pm Right sided weakness acute Apri l 2024 6:06pm Sleep-disordered breathing acute November 11, 2024 6:06pm Visual field cut acute November 112024 6:06pm Bradycardia chronic November 11, 2 025 6:06pm Chronic anticoagulation chronic A pri2024 6:06pm COPD (chronic obstructive pulmonary disease) chronic November 11, 2 025 6:06pm Obesity (BMI 30.0-34.9) chronic A pri2024 6:06pm 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 (peripheral artery disease) 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 November 11, 2024 6:06pm Hypophosphatemia resolved November 112024 6:06pm Subtherapeutic international normalized ratio (INR) resolved November 6:06pm (HFpEF) heart failure with preserved ejection fraction inactive Apri l 2024 6:06pm Diabetes inactive November 11 6:06pm Essential hypertension inactive Ap ril 2024 6:06pm Gout inactive November 11 6:06pm Hypothyroidism inactive November 6:06pm Mitral stenosis inactive November 6:06pm Noncompliance with medicatio n regimen inactive November 11, 2024 6:06pm S/P right hemicolectomy inactive A pril 2024 6:06pm Atrial fibrillation acute December 072024 9:00am Global aphasia acute December 07, 9:00am Left acute arterial ischemic stroke, MCA (middle cerebral artery) acute December 07, 2024 9: 00am Right sided weakness acute December 07, 2024 9:00am Colon cancer acute December 07 2:17pm Chronic anticoagulation chronic M ay 2024 2:17pm Colon cancer acute December 09 9:03am Acute pain of right wrist acute December 17, 2024 11:07am Atrial fibrillation acute December 022024 11:07am Chronic anticoagulation acute M ay 2024 11:07am History of diabetes mellitus acute December 17, 2024 11:07am [facility] Work Phone: 1(707) 594-584909-03-2021 NoteHNO ID: [id number] Author: RT Trisha(R) Service: ? Author Type: Air Quality Technician Type: Progress Notes Filed: 04/06/2021 12:09 PM Note Text: Radiology Service Progress Note PATIENT NAME: Elizabeth Henley DATE OF SERVICE: April 06, 2021 TIME: 11:46 AM PATIENT IDENTITY VERIFICATION COMPLETED USING TWO (2) IDENTIFIERS: Name and Date of confirmed by patient verbally. FALL SCREENING: Has the patient had 2 falls in the last year or 1 fall with injury or currently using an Ambulatory Assistive Device (Walker, Cane, Wheelchair, Crutches, etc.)? Yes, Patient High Risk for Falls What interventions were put in place to prevent falls during this visit? Instructed Patient to Call for Help if Needed, Offered Assistance with Transfers/Clothing and Increased Observations by Caregivers PATIENT GENDER DATA: Female. status: : No status: NO. PATIENT RELEVANT IMPLANT DATA REVIEWED: Yes RADIOLOGY DEPARTMENT: General X-ray: Exam(s) Completed: Lower Extremity X-Ray(s): Ankle, Left and Foot, Left PERIPHERAL IV DATA: Not applicable SIGNED BY: RT Trisha(R) April 06, 2021 11:46 [facility]09-03-2021 NoteHNO ID: [id number] Author: Jeffrey Robles APRN.BEDSPREAD CUTTER HAND Service: ? Author Type: Nurse Practitioner Type: Progress Notes Filed: 04/06/2021 1:08 PM Note Text: Subjective HPI Nontoxic-appearing female presents urgent care chief complaint left foot pain. Duration of symptoms 5 days. Associated symptoms left foot/ankle pain. States history of foot pain but usually on the right side. States this is a little more intense. Denies any known injury. Denies any numbness no tingling. No decreased sensation. Concerned about gout. No history of gout. No increased swelling redness past baseline. Denies any fevers, nausea, vomiting, abdominal pain, chest pain, shortness of breath, headache, dizziness change in bowel or bladder habits. Past medical history prescription medication use allergies reviewed. .Patient presents with: Pain (foot): left denies injury x 5 days PAST MEDICAL HISTORY Diagnosis Date - Atrial fibrillation (HCC) - Bilateral ankle pain - CHF (congestive heart failure) (HCC) - Chronic airway obstruction (HCC) - CVA (cerebral vascular accident) ([facility]) - Depression - Hypertension - Obesity - PAD (peripheral artery disease) ([facility]) PAST SURGICAL HISTORY Procedure Laterality Date - APPENDECTOMY 1973 - CHOLECYSTECTOMY 1973 - HYSTERECTOMY 1973 ALLERGIES Codeine MEDICATIONS warfarin (COUMADIN) 5 mg tablet Take 5 mg by mouth daily as directed. Take as directed fluticasone (FLONASE ALLERGY RELIEF) 50 mcg/actuation nasal spray Use 1 [place] in each nostril once daily. mometasone-formoterol (DULERA) 200-5 mcg/actuation inhaler Inhale 2 Puffs as instructed twice daily. Levothyroxine 75 mcg cap Take 75 mcg by mouth once daily. indapamide (LOZOL) 2.5 mg tablet Take 2.5 mg by mouth once daily. albuterol HFA (PROVENTIL HFA, VENTOLIN HFA) 90 mcg/actuation inhaler Inhale 2 Puffs as instructed every 4 hours as needed. sacubitril-valsartan (ENTRESTO) 24-26 mg tablet Take 1 tablet by mouth twice daily. atorvastatin (LIPITOR) 40 mg tablet Take 40 mg by mouth once daily. FAMILY HISTORY Problem Relation Age of Onset - Colon Cancer Mother - Cancer Father - Heart disease Father - Stroke Father Social History Tobacco Use - Smoking status: Former Smoker Quit date: 2014 Years since quittin.6 - Smokeless tobacco: Never Used Substance Use Topics - Alcohol use: Not Currently - Drug use: Never BP 110/68 Pulse 90 Temp 36.1 ?C (96.9 ?F) Resp 18 Wt 121.6 kg (268 lb) SpO2 97% Review of Systems Constitutional: Negative for chills, fever and malaise/fatigue. HENT: Negative for congestion, ear discharge, ear pain, sinus pain and sore throat. Eyes: Negative for blurred vision. Respiratory: Negative for cough, sputum production, shortness of breath and wheezing. Cardiovascular: Negative for chest pain. Gastrointestinal: Negative for abdominal pain, diarrhea, nausea and vomiting. Musculoskeletal: Positive for joint pain. Negative for falls and myalgias. Skin: Negative for itching and rash. Neurological: Negative for dizziness and headaches. Objective Physical Exam Constitutional: General: She is not in acute distress. Appearance: She is not diaphoretic. HENT: Head: Normocephalic. Nose: Nose normal. Mouth/Throat: Mouth: Mucous membranes are moist. Pharynx: Oropharynx is clear. No oropharyngeal exudate or posterior oropharyngeal erythema. Eyes: Conjunctiva/sclera: Conjunctivae normal. Pupils: Pupils are equal, round, and reactive to light. Cardiovascular: Rate and Rhythm: Normal rate and regular rhythm. Heart sounds: Normal heart sounds. Pulmonary: Effort: Pulmonary effort is normal. No tachypnea, accessory muscle usage or respiratory distress. Breath sounds: Normal breath sounds. Abdominal: Palpations: Abdomen is soft. Tenderness: There is no abdominal tenderness. Musculoskeletal: Cervical back: Normal range of motion and neck supple. No rigidity or tenderness. Left lower le+ Edema present. Left ankle: Swelling present. No ecchymosis. Tenderness present over the medial malleolus. Normal pulse. Left Achilles Tendon: No tenderness. Left foot: Normal range of motion and normal capillary refill. Swelling and tenderness present. No bony tenderness. Normal pulse. Comments: Lateral edema noted lower feet. Slight erythema noted bilaterally. Discoloration of skin bilateral lower legs. Neurovascular intact. Lymphadenopathy: Cervical: No cervical adenopathy. Skin: General: Skin is warm and dry. Neurological: Mental Status: She is alert and oriented to person, place, and time. ASSESSMENT/PLAN: 1. Foot pain, left - ICD9: 729.5, ICD10: M79.672 - XR FOOT GENERAL 3V AP/LAT/OBL LT - XR ANKLE GENERAL 3V AP/LAT/OBL LT IMPRESSION: ? Mild bimalleolar soft tissue swelling. Subchondral lucency within the talar dome along the lateral margin without osteochondral loose body. Findings could represent an are (more content not included)...[facility]09-03-2021 History of Present illness Narrative* Bhakti Bergman RT(R) - 04/06/2021 11:50 AM EDT Radiology Service Progress Note PATIENT NAME: Elizabeth Henley DATE OF SERVICE: April 06, 2021 TIME: 11:46 AM PATIENT IDENTITY VERIFICATION COMPLETED USING TWO (2) IDENTIFIERS: Name and Date of confirmedby patient verbally. FALL SCREENING: Has the patient had 2 falls in the last year or 1 fall with injury or currently using an Ambulatory Assistive Device (Walker, Cane, Wheelchair, Crutches, etc.)? Yes, Patient High Riskfor Falls What interventions were put in place to prevent falls during this visit? Instructed Patient to Callfor Help if Needed, Offered Assistance with Transfers/Clothing and Increased Observations by Caregivers PATIENT GENDER DATA: Female. status: : No status: NO. PATIENT RELEVANT IMPLANT DATA REVIEWED: Yes RADIOLOGY DEPARTMENT: General X-ray: Exam(s) Completed: Lower Extremity X- Ray(s): Ankle, Left and Foot, Left PERIPHERAL IV DATA: Not applicable SIGNED BY: RT Trisha(R) April 06, 2021 11:46 AM documented in this encounterPeoples HospitalDischar summary Author Tang Le [facility] Note Date/Time December 17, 2024 11:12 am [facility] Medical Records Department [address] [place] [address] Emergency Department Summary 12/17/24 MR#: [id number] Acct: [id number] Name: ELIZABETH HENLEY Rep #:[id number] : 1950 74 From: Tang Norris PCP: Dr. Alejandro Rosales MD Status:REG ER Location: ED HPI History of Present Illness Chief Complaint: Upper Extremity Injury Informant: patient and family Narrative Narrative: [id number] female here with daughter for evaluation nontraumatic right wrist pain started at 12:30 AM yesterday. No strenuous activities yesterday. She is recovering from a stroke last month. She was transferred to [facility] due to M1 occlusion and there is no intervention. She was transition over from warfarin to Eliquis. Paroxysmal A-fib history she was subtherapeutic when she had the stroke. Daughter reports couple months ago had moderate swelling to theleft ring finger put on antibiotics and resolved. Did follow-up with plastic/hand Dr. Jama, no surgical intervention. Denies fever or chills. Painwith movement of the wrist. She is a diabetic. Prior similar symptoms: No PFSH PFSH Medical History Pulmonary hypertension Colon cancer Mitral stenosis Gout (HFpEF) heart failure with preserved ejection fraction Hypothyroidism Noncompliance with medication regimen Pre-op evaluation Obesity (BMI 30.0-34.9) Hypokalemia Abnormal gastrointestinal PET scan Contusion Subtherapeutic international normalized ratio (INR) Stroke/cerebrovascular accident Post-menopausal Thyroid disease Diabetes TIA (transient ischemic attack) Dietary restriction Diarrhea Gastric reflux History of edema History of irregular heartbeat Cardiology follow-up encounter Cancer Colonic mass Elevated TSH Anemia Wears glasses Wears dentures Depression Bruising Arthritis Walker as ambulation aid Ambulates with cane Easy bruising Former smoker COPD (chronic obstructive pulmonary disease) Shortness of breath on exertion History of echocardiogram Chronic anticoagulation PAD (peripheral artery disease) History of rheumatic fever as a child History of anxiety PFO with atrial septal aneurysm Atrial thrombus CVA (cerebral vascular accident) (~2006) Essential hypertension Chronic combined systolic and diastolic heart failure Home Medications ?Medication ?Instructions ?Recorded ?Last Taken ?Type acetaminophen 325 mg tablet 650 mg (2 x 325 mg) PO TID PRN 11/25/24 12/17/24 Rx fever/pain #1 TAB albuterol sulfate 90 mcg/actuation 2 puff inhalation Q 4H PRN Wheezing 11/25/24 Unknown Rx aerosol inhaler #1 g dapagliflozin propanediol 10 mg 10 mg PO DAILY dm #30 tabs 11/25/24 12/17/24 Rx tablet (Farxiga) fluticasone fur. 200 mcg-umeclid 1 inh inhalation MOE Y sob #1 inh 11/25/24 Unknown Rx 62.5 mcg-vilant 25 mcg inhalat.powder (Trelegy Ellipta) fluticasone propionate 50 2 spray intranasal DAILY Unknown Rx mcg/actuation nasal congestion #1 inh spray,suspension levothyroxine 88 mcg tablet 88 mcg PO DAILY THYROID #3 0 tabs 11/25/24 12/17/24 Rx (Euthyrox) apixaban 5 mg tablet (Eliquis) 5 mg PO BID blood thinn er #60 tabs 12/07/24 12/17/24 Rx atorvastatin 40 mg tablet 40 mg PO QHS cholesterol #30 tabs 12/07/24 12/16/24 Rx Allergy/AdvReac Type Severity Reaction Status Date / Time codeine Allergy Severe anaphylaxis Verified 12/17/24 08:16 Family History Father Myocardial infarction Cancer lung CVA (cerebral vascular accident) Mother Colon cancer Brother Diabetes CAD (coronary artery disease) open heart surgery Surgical History Hx of right hemicolectomy S/P right hemicolectomy Hx of colonoscopy History of hysterectomy History of appendectomy History of cholecystectomy Social History household members: other details: 22 year old grandson lives with her, but he works nights. Smoking Status: Former smoker how long ago did patient quit smokin years ago alcohol intake: never substance use type: does not use caffeine: Yes Type: tea Number of servings: 2 ROS ROS ED Constitutional Constitutional ED: Denies fever(s) Cardiovascular Cardiovascular: Denies chest pain Respiratory/Chest Respiratory/Chest: Denies cough Gastrointestinal Gastrointestinal: Denies diarrhea or vomiting Musculoskeletal Musculoskeletal: Reports other Details: Right wrist pain. Integumentary Denies rash or wounds Neurologic Neurologic: Denies weakness EXAM Physical Exam Const Vital Signs: 12/17/24 08:15 Temperature 97.4 F L Temperature Source Temporal Pulse Rate 82 Respiratory Rate 14 Blood Pressure 129/66 H Blood Pressure Mean 87 Pulse Ox 98 Oxygen Delivery Method Room Air Positive well nourished and well developed Constitutional Narrative: Nontoxic General Appearance ED: well developed HEENT normocephalic and atraumatic Eyes General Eye ED: Yes normal appearance of both eyes Neck full ROM Resp normal respiratory effort and normal air movement Cardio regular rate and regular rhythm GI soft to palpation Extremity Extremity Narrative: Right upper extremity: No elbow tenderness. Small bruise on the distal dorsal forearm nontender. Patient was pointing at pain at the ulnar styloid however onpalpation no pain. Pain with range of motion of the wrist there is no redness no warmth slight swelling noted. No snuffbox tenderness. No hand tenderness orswelling. Neuro oriented x3 Skin no wounds Skin Narrative: See above MDM MDM MDM Narrative Medical decision making narrative: Interventions / MDM: Differential diagnosis: Right wrist pain, septic wrist, history of diabetes, history of A-fib Diagnosis considered but do not suspect: N/A My EKG interpretation: Rate controlled A-fib 41, no ST changes. Imaging independently reviewed and interpreted by myself: Right wrist x-ray 3 views: No acute process also read by radiology. External documents reviewed: N/A Test considered but not ordered:N/A ED course: Patient nontraumatic pain to the wrist increasing pain with movement. Slight swelling no redness or warmth. She is a diabetic. She is on Eliquis. Will check x-ray, will send for labs including inflammatory markers. Tylenol ordered. 09: X-ray no effusion noted. Labs white count normal slightly elevated inflammatory markers with ESR 48 CRP 32. There is similar elevation from September this year currently from her finger infection ordered outpatient. Still with pain with movement, discussed with patient risks and benefits with aspiration especially she been on Eliquis for bleeding and infections, includingdry tap. She would like to pursue further rule out. Consent will be obtained for planned attempt at aspiration. She is ordered for oxycodone for which she has tolerated previously. 1020: Written consent obtained risk and benefits discussed with patient. Timeout performed. Sterile precautions were taken. Patient's arm was laid on table with Chux. Betadine prep with dorsal aspect of the wrist. Sterile gloves. Dorsal approach on the ulnar aspect of the wrist into the joint using 25-gauge 1-1/2 inch needle, approximately 0.5 cc yellow fluid was obtained. No bloody fluid. Patient uncomfortable during procedure however tolerated well. Minimal fluid aspirated yellow in nature, will send for lab for Gram stain and culture. Is not enough fluid for cell counts or crystals. 1042: I spoke with plastic/hand Dr. Jama, knows the patient from outpatient visit. Discussed history findings with wrist aspiration. States with wrist typically minimal aspiration of fluid can be obtained. However this is pending. He recommends with concerns for septic wrist, broad-spectrum antibiotics admission to medicine and he will follow-up closely. Discussed she is on Eliquis with her recent LVO and paroxysmal A-fib, will continue Eliquis at this time. Therefore I will discuss with hospitalist service. I spoke with hospitalist Dr. Castro for admission. EKG returned rate controlled A-fib at 41. Re-evaluation: stable Disposition discussed with patient/family/significant other: Patient and daughter Case discussed with consulting clinician: Plastic/hand surgeon, hospitalist This note was generated with Pant[employer] dictation software. It may contain incorrectwords, spelling, and punctuation that were not noted in checking the note beforesigning. Discharge Plan Dx/Rx/DC Orders Clinical Impression: Acute pain of right wrist, Chronic anticoagulation, History of diabetes mellitus, Atrial fibrillation Disposition Disposition: Acute Care Hospital [facility] What to do if you have Problems For any increased pain, shortness of breath, bleeding, nausea or vomiting, chestpain, or any unexpected problems, contact your Primary Care Provider. Call [facility] ([phone]) or report to the closest Emergency Room. Call 911 if necessary. 12/17/24 1112 <Electronically signed by Tang Norris> Cosigner Signature (if applicable): CC: Dr. Alejandro Rosales MD ~ Signed [facility] Work Phone: Discharge summary Author Shayla [facility] Note Date/Time December 19, 2024 1:16p m [facility] Medical Records Department [address] [place] [address] Instructions for Home/Discharge Instructions 12/19/24 1315 MR#: [id number] Acct: [id number] Name: ELIZABETH HENLEY Rep #:[id number] : 1950 74 From: Shayla Castro MD PCP: Dr. Alejandro Rosales MD Status:ADM IN Discharge Instructions Diet Discharge Diet: Low fat / Low cholesterol DC O2, CPAP, BIPAP needs Home O2 Discharge instructions: No Dressing / Incision Discharge Activity: Return to Normal Activity Weight Bearing Status: Weight bearing as tolerated Dressing / Incision Call your doctor if you observe: Fever of 101 or Higher, Shortness of breath, Dizziness, Swelling in the ankles and Chest pain Follow Up Care Test Results: Test results from this visit will be discussed in further detail at your follow- up appointment, if applicable. Discharge Plan Admission Admit Date/Time: 12/17/24 11:07 Primary Reason for Your Visit: arthritis of left wrist Attending Provider: Shayla Castro Primary Care Provider: Alejandro Rosales Consulting Providers: Kevan Jama Instructions Patient Instructions: ED Osteoarthritis Discharge Orders/Prescriptions Prescriptions: New cefdinir 300 mg capsule 300 mg PO BID Qty: 10 0RF doxycycline hyclate 100 mg tablet 100 mg PO BID Qty: 10 0RF Continued atorvastatin 40 mg tablet 40 mg PO QHS Qty: 30 3RF Eliquis 5 mg tablet 5 mg PO BID Qty: 60 3RF acetaminophen 325 mg Tablet 650 mg PO TID PRN (Reason: fever/pain) Qty: 1 0RF albuterol sulfate 90 mcg/actuation Hfa Aerosol Inhaler 2 puff inhalation Q4H PRN (Reason: Wheezing) Qty: 1 0RF Rx Instructions: 2 puffs every 4 hours as needed for wheezing/shortness of breath levothyroxine [Euthyrox] 88 mcg Tablet 88 mcg PO DAILY Qty: 30 0RF Rx Instructions: Take this on an empty stomach and then do not eat or drink for 30 minutes. fluticasone propionate 50 mcg/actuation spray,suspension 2 spray INTRANASAL DAILY Qty: 1 0RF dapagliflozin propanediol [Farxiga] 10 mg tablet 10 mg PO DAILY Qty: 30 0RF Trelegy Ellipta 200-62.5-25 mcg blister with device 1 inh inhalation DAILY Qty: 1 0RF Patient Comments: PT USES NEEDED Referrals / Follow Up: Alejandro Rosales MD [Primary Care Provider] - Within 1 Week Kevan Jama MD [Med Staff - Active Staff] - Within 1 Week Disposition Disposition (needs filled in before D/C Order can be placed): Home, Self Care 12/19/246<Electronically signed by Shayla Castro MD>Shayla Castro MD CC: Dr. Alejandro Rosales MD; Dr. Kevan Jama MD ~ Signed [facility] Work Phone: Discharge summary Author [facility] Note Date/Time December 19, 2024 1:27p m [facility] Medical Records Department [address] [place] [address] Discharge Summary 12/19/241315 MR#: [id number] Acct: [id number] Name: ELIZABETH HENLEY Rep #:[id number] : 1950 74 From: Shayla Castro MD PCP: Dr. Alejandro Rosales MD Status:ADM IN [facility] Prov[facility] Date of Admission: 12/17/24 Date of Discharge: 12/19/24 Primary Care Physician: Dr. Alejandro Rosales MD Consultations 12/17/24 12:07 Consult: Plastic Surgery Routine Consulting Provider: Kevan Jama Reason for Consult: right wrist swelling, concerning for septic arthritis EMERGENT Consult: No MD Notified: Yes Date Notified: 12/17/24 Time Notified: 11:16 Method of Notification: ED Physician Initiated Reason For Visit: RIGHT WRIST PAIN AND SWELLING Diagnosis Discharge Diagnosis (1) Acute pain of right wrist: Status: Acute Code(s): M25.531 - Pain in right wrist Plan #Right wrist pain and swelling * Concerning for septic arthritis. * Swelling has improved markedly. * ED doctor was able to aspirate some fluid from it which will be sent for cell count and culture. * Discussed with plastic surgery wanted patient admitted due to concern for septic arthritis. * On IV vancomycin. Plastic surgery on board. Per plastic surgery to continue with antibiotics until wrist aspirate results. * P.o. Tylenol and p.o. oxycodone as needed for pain. IV morphine as needed for pain. * PT/OT consult * fall precautions * uric acid not elevated, so will hold off on adding on colchicine and steroids. * She did have some itching while getting the vancomycin yesterday. She also complained of itching of his scalp at the same time. It is unclear whether this was really due to the vancomycin. She received Benadryl but subsequently became drowsy so it is difficult to determine whether this was a true allergy. I discussed with pharmacy and the rate of vancomycin has been slowed down. Will give the vancomycin today to see if she has any itching whilst getting it. If she does then vancomycin will be noted as a true allergy. * # History of COPD: Not in exacerbation. Breathing treatments bronchodilators. #Hyperlipidemia: On statin #Type 2 diabetes mellitus: On Farxiga. Insulin sliding scale. Accu-Cheks ACHS. #Hypothyroidism: Synthroid #History of A-fib: On Eliquis DVT prophylaxis: Already on Eliquis Code status: full code * Medications at Discharge Home Medications acetaminophen 325 mg tablet 650 mg (2 x 325 mg) PO TID PRN fever/pain #1 TAB 11/25/24 albuterol sulfate 90 mcg/actuation aerosol inhaler 2 puff inhalation Q4H PRN Wheezing #1 g 11/25/24 dapagliflozin propanediol 10 mg tablet (Farxiga) 10 mg PO DAILY dm #30 tabs 11/25/24 fluticasone fur. 200 mcg-umeclid 62.5 mcg-vilant 25 mcg inhalat.powder (Trelegy Ellipta) 1 inh inhalation DAILY sob #1 inh 11/25/24 fluticasone propionate 50 mcg/actuation nasal spray,suspension 2 spray intranasal DAILY congestion #1 inh 11/25/24 levothyroxine 88 mcg tablet (Euthyrox) 88 mcg PO DAILY THYROID #30 tabs 11/25/24 apixaban 5 mg tablet (Eliquis) 5 mg PO BID blood thinner #60 tabs 12/07/24 atorvastatin 40 mg tablet 40 mg PO QHS cholesterol #30 tabs 12/07/24 cefdinir 300 mg capsule 300 mg PO BID #10 caps 12/19/24 doxycycline hyclate 100 mg tablet 100 mg PO BID #10 tabs 12/19/24 Hospital Course Operations None Procedures None Summary of Care Provided Minutes Spent on Discharge: 45 Hospital Course: ELIZABETH HENLEY, is a 74 F with a PMH as outlined who presents via the ED on 12/17/2024 with a complaint of right wrist pain. The pain started the day before admission. The pain was worse with movement of the right wrist. She could not flex or extend her wrist. She rated the pain at 10 out of 10. She denied any trauma to the arm or the wrist. She denied any fever or chills, nausea vomitingor any other symptoms. She denies any history of gout. Review of systems otherwise negative. Vitals i the ED were BP of 129/66, [place] of 82, RR of 14 and temp of 97.4F. She wassaturating at 98% on room air. CBC showed wbc of 8.2, hb of 13.9 and platelets of 227. ESR was 48. Chemistry showed sodium of 136, potassium of 4 and bicarb of24.6. Cr was 0.79. CRP was elevated at 32.40. Right wrist x-ray was negative for any acute pathology. She has been admitted to be evaluated for right wrist cellulitis with concern for septic arthritis. She did have right wrist aspiration done in the ED by ED doctor. She was admitted and managed to rule outright wrist septic arthritis. She was started on IV vancomycin. The fluid aspirate preliminary culture was negative. Gram stain and anerobic cultures werepending. The pain completely resolved and she felt much better. She remained stable and she was discharged on 12/19/2024 on PO doxycycline and PO cefdinir x 5days. She is to follow up with her PCP and plastic surgery within 1-2 weeks. Patient seen and examined prior to discharge. She had no active complaints and felt well. She was eager to be discharged home. Review of systems is otherwise negative. Labs and vitals reviewed. Home meds reviewed and reconciled. Physical Exam Const alert, oriented x3 and no apparent distress General Appearance: cooperative Exam Limitations: no limitations HEENT normocephalic, head/scalp atraumatic, hearing grossly normal bilaterally, moist oral mucous membranes and oropharynx normal Mouth: oral and palatal mucosa normal Eyes PERRL, EOMs intact bilaterally and conjunctivae normal Neck no lymphadenopathy and supple Resp normal respiratory effort, normal air movement, no retractions, no use of accessory muscles and clear to auscultation bilaterally Cardio regular rate, regular rhythm, S1 normal heart sound, S2 normal heart sound and no murmurs GI normal to inspection, nondistended, normoactive bowel sounds, soft to palpation,non-tender and non-distended Extremity Extremity Narrative: right wrist swelling has resolved. General Extremity: no tenderness to palpation of joints or extremities Skin no rashes or lesions noted Neuro oriented x3, CN's II-XII intact bilaterally, moves all extremities and no focal motor deficits Sensorium / Orientation: awake and alert Motor Exam: strength 5/5 throughout and general weakness Psych thought process normal, cooperative and affect normal Appearance: appropriate Weight / BMI Weight Weight: 200 lb 13.458 oz Body Mass Index (BMI) 31.4 ABG / Lab / Microbiology Data 12/19/24 04:32 12/19/24 04:32 Laboratory: Laboratory Results - last 24 hr 12/18/24 16:37: POC Glucose 107 H 12/18/24 23:45: Vancomycin Trough 21.0 H 12/18/24 23:51: POC Glucose 118 H 12/19/24 04:32: WBC 9.1, RBC 5.14, Hgb 14.6, Hct 46.1, MCV 89.7, MCH 28.4, MCHC 31.7 L, RDW Std Deviation 49.9 H, RDW Coeff of Angela 14.9 H, Plt Count 237, MPV 10.2, Immature Gran % (Auto) 0.200, Neut % (Auto) 75.3 H, Lymph % (Auto) 14.6 L,Wolfe % (Auto) 7.5, Eos % (Auto) 1.9, Baso % (Auto) 0.5, Absolute Neuts (auto) 6.9, Absolute Lymphs (auto) 1.33, Nucleated RBC % 0, Sodium 139, Potassium 4.2, Chloride 105, Carbon Dioxide 23.1, Anion Gap 11, BUN 15, Creatinine 0.72, Estim Creat Clear Calc 73.65, Est GFR (MDRD) Non-Af 89, BUN/Creatinine Ratio 21.1 H, Glucose 116 H, Calcium 9.6 12/19/24 12:02: POC Glucose 108 H Microbiology: Microbiology 12/17/24 10:15 Fluid - Synovial (joint) Body Fluid Culture - Preliminary No growth-Final to follow D/C Instructions Discharge Diet: Low fat / Low cholesterol Discharge Activity: Return to Normal Activity Weight Bearing Status: Weight bearing as tolerated Call your doctor if you observe: Fever of 101 or Higher, Shortness of breath, Dizziness, Swelling in the ankles and Chest pain DC O2, CPAP, BIPAP Needs Home O2 Discharge instructions: No Meaningful Use Info Meaningful Use Meaningful Use Diagnoses (Choose all that apply): None applicable Ischemic Stroke Statin Dosing Therapy Reference: STATIN DOSE THERAPY REFERENCE: * Patients > 75 years receive moderate or high dose statin therapy. * Patients 75 years or YOUNGER should receive HIGH intensity statin dose unless contraindicated. You will be required to document reason for non-treatment if statin daily dose does not meet guidelines. HIGH DOSE STATIN THERAPY DAILY Atorvastatin > than or = to 40 mg Rosuvastatin > than or = to 20 mg Amlodipine + Atorvastatin > than or = to 2.5/40 mg Ezetimibe + Simvastatin 10/80 mg Simvastatin 80mg Discharge Plan Admission Admit Date/Time: 12/17/24 11:07 Primary Reason for Your Visit: arthritis of left wrist Attending Provider: Shayla Castro Primary Care Provider: Alejandro Rosales Consulting Providers: Kevan Jama Instructions Patient Instructions: ED Osteoarthritis Discharge Orders/Prescriptions Prescriptions: New cefdinir 300 mg capsule 300 mg PO BID Qty: 10 0RF doxycycline hyclate 100 mg tablet 100 mg PO BID Qty: 10 0RF Continued atorvastatin 40 mg tablet 40 mg PO QHS Qty: 30 3RF Eliquis 5 mg tablet 5 mg PO BID Qty: 60 3RF acetaminophen 325 mg Tablet 650 mg PO TID PRN (Reason: fever/pain) Qty: 1 0RF albuterol sulfate 90 mcg/actuation Hfa Aerosol Inhaler 2 puff inhalation Q4H PRN (Reason: Wheezing) Qty: 1 0RF Rx Instructions: 2 puffs every 4 hours as needed for wheezing/shortness of breath levothyroxine [Euthyrox] 88 mcg Tablet 88 mcg PO DAILY Qty: 30 0RF Rx Instructions: Take this on an empty stomach and then do not eat or drink for 30 minutes. fluticasone propionate 50 mcg/actuation spray,suspension 2 spray INTRANASAL DAILY Qty: 1 0RF dapagliflozin propanediol [Farxiga] 10 mg tablet 10 mg PO DAILY Qty: 30 0RF Trelegy Ellipta 200-62.5-25 mcg blister with device 1 inh inhalation DAILY Qty: 1 0RF Patient Comments: PT USES NEEDED Referrals / Follow Up: Alejandro Rosales MD [Primary Care Provider] - Within 1 Week Kevan Jama MD [Med Staff - Active Staff] - Within 1 Week Disposition Disposition (needs filled in before D/C Order can be placed): Home, Self Care Charges/Coding Visit Charges Inpatient E&M: 00425 Disch Hosp >30min 12/19/24 1327 <Electronically signed by Shayla Castro MD> Cosigner Signature (if applicable): CC: Dr. Alejandro Rosales MD; Dr. Shayla Castro MD~ Signed [facility] Work Phone: evaluation note* Diagnosis Onset Date Resolution Status Colon cancer acute S/P right hemicolectomy acut e Colon cancer acute Colon cancer acute S/P right hemicolectomy acut e [facility] Work Phone: evaluation noteNo assessment information available [facility] Work Phone: Evaluation note* Diagnosis Onset Date Resolution Status Colon cancer chronic [facility] Work Phone: Evaluation note* Diagnosis Onset Date Resolution Status Hypokalemia acute Colon cancer chronic Colon cancer chronic Colon cancer chronic [facility] Work Phone: Evaluation note* Diagnosis Onset Date Resolution Status Hypokalemia acute Colon cancer chronic Colon cancer chronic Colon cancer chronic Colon cancer chronic Colon cancer chronic [facility] Work Phone: Evaluation note* Diagnosis Onset Date Resolution Status Hypokalemia acute Colon cancer chronic Colon cancer chronic Colon cancer chronic Colon cancer chronic Colon cancer chronic Abnormal gastrointestinal PET scan acute S/P right hemicolectomy acut e Colon cancer chronic [facility] Work Phone: Evaluation note* Diagnosis Foot pain, left Pain in limb [facility]- Primary Unspecified cerebral artery occlusion with cerebral infarction Cerebrovascular accident (CVA), unspecified mechanism Type 2 diabetes mellitus with hyperglycemia Type II or unspecified type diabetes mellitus without mention of complication, not stated as uncontrolled [facility] Diagnostic Procedure Only (Urgent) - Closed Specialty Diagnoses / Procedures Referred By Contac t Referred To Contact XR IMAGING Diagnoses Foot pain, left Procedures XR ANKLE GENERAL 3V AP/LAT/OBL LT X-RAY ANKLE MINIMUM 3 VIEWS Jeffrey Robles APRN.[employer] [address] [place] [address] [place] [address] Referral ID Status Reason Start Date Expiration Date V isits Requested Visits Authorized Closed Auto-Generate d Referral 04/06/2021 05/06/2022 1 1 * Diagnostic Procedure Only (Urgent) - Closed Specialty Diagnoses / Procedures Referred By Contac t Referred To Contact XR IMAGING Diagnoses Foot pain, left Procedures XR FOOT GENERAL 3V AP/LAT/OBL LT X-RAY FOOT MINIMUM 3 VIEWS Jeffrey Robles APRN.[employer] [address] [place] [address] [place] [address] Referral ID Status Reason Start Date Expiration Date V isits Requested Visits Authorized Closed Auto-Generate d Referral 04/06/2021 05/06/2022 1 1 [facility]No [facility] for [facility] Reason for visit Narrative* Diagnostic Procedure Only (Urgent) - Closed Specialty Diagnoses / Procedures Referred By Contac t Referred To Contact XR IMAGING Diagnoses Foot pain, left Procedures XR ANKLE GENERAL 3V AP/LAT/OBL LT X-RAY ANKLE MINIMUM 3 VIEWS Jeffrey Robles APRN.[employer] [address] [place] [address] [place] [address] Referral ID Status Reason Start Date Expiration Date V isits Requested Visits Authorized Closed Auto-Generate d Referral 04/06/2021 05/06/2022 1 1 [facility] for visit Narrative* Auth/Cert Specialty Diagnoses / Procedures Referred By An dubon Referred To Contact Diagnoses Stroke Stroke (LEVEL A ISCHEMIC STROKE ALERT, LVO) [facility] [address] [place] [address] [facility] [address] [place] [address] Referral ID Status Reason Start Date Expiration Date Visits Re quested Visits Authorized [id number] 1 1 [facility] Summary Purpose Family History No Family History Records Found Relationship Condition Age at Onset Recorded Date/T mindy father Myocardial infarction Unknown Malignant neoplasm Unknown Cerebrovascular accident (CVA) Unknown mother Malignant neoplasm of colon Unknown brother Diabetes mellitus Unknown Coronary artery disease Unknown Advance Directives No Advanced Directives Records Found Advance Directive Response Recorded Date/ Time Living Will No August 17 5:49pm Power of Rigging Engineer Yes August 17, 2021 5:49pm Advance Directive Response Recorded Date/ Time Living Will No August 17 4:49pm Power of Rigging Engineer Yes August 17, 2021 4:49pm Advance Directive Response Recorded Date/ Time Living Will No February 13, 2023 9:54am Power of Rigging Engineer Yes February 13 9:54am Advance Directive Response Recorded Date/ Time Living Will No November 08, 2024 3:54pm Do you have a Healthcare Power of Rigging Engineer? No November 08, 2024 3:54pm Documents on File Type Date Recorded Patient [employer] Power of Rigging Engineer 11/08/2024 8:30 PM Date Activated Date Inactivated Comments 11/08/2024 9:47 PM Healthcare Agents on File Name Relationship Healthcare Agent Relationshi p Communication Melvinaanthony Mistry Child Health Care Agent Suzan Thompson Child First Alternate Health Care Agent Advance Directive Response Recorded Date/ Time Living Will No November 08, 2024 3:54pm Do you have a Healthcare Pow er of Rigging Engineer? No November 08, 2024 3:54pm Do you have a Healthcare Pow er of Rigging Engineer? No December 17, 2024 8:15am Living Will Yes November 12, 2024 12:58pm Do you have a Healthcare Pow er of Rigging Engineer? Yes November 12, 2024 12:58pm Name of Medical Power of Rigging Engineer Melvina Mistry, daughter November 12, 2024 12:58pm Advance Directive Response Recorded Date/ Time Living Will No November 08, 2024 3:54pm Do you have a Healthcare Pow er of Rigging Engineer? No November 08, 2024 3:54pm Do you have a Healthcare Pow er of Rigging Engineer? Yes December 17, 2024 12:20pm Living Will Yes November 12, 2024 12:58pm Do you have a Healthcare Pow er of Rigging Engineer? Yes November 12, 2024 12:58pm Name of Medical Power of Rigging Engineer Melvina Mistry, daughter November 12, 2024 12:58pm Chief Complaint and Reason for Visit Chief Complaint STAPLE REMOVAL 08/22 NEED ORDER NEW-COLON CA F/U COLON Reason for Visit Colon cancer S/P right hemicolectomy Colon cancer Colon cancer S/P right hemicolectomy Chief Complaint COLON CANCER Chief Complaint COLON CANCER 6MO LABS PRIOR REVIEW CT PERIPHERAL ARTERY DISEASE Reason for Visit Colon cancer Chief Complaint PERIPHERAL ARTERY DI SEASE COLON CA/ ADD LABS Chief Complaint COLON CA/ ADD LABS 6MO LABS PRIOR REVIEW CT MED ONC 2WKS LABS PRIOR EORDER 4WKS LAB PRIOR(CEA) Reason for Visit Hypokalemia Colon cancer Colon cancer Colon cancer Chief Complaint COLON CA/ ADD LABS 6MO LABS PRIOR REVIEW CT 2WKS LABS PRIOR EORDER 4WKS LAB PRIOR(CEA) COLON CANCER STAGING 2WKS NO LABS REVIEW MRI/PET MED ONC C189 Malignant neoplasm of colon, unspecified 2WKS REVIEW LABS/SCANS Reason for Visit Hypokalemia Colon cancer Colon cancer Colon cancer Colon cancer Colon cancer Chief Complaint 6MO LABS PRIOR REVIE W CT 2WKS LABS PRIOR EORDER 4WKS LAB PRIOR(CEA) COLON CANCER STAGING 2WKS NO LABS REVIEW MRI/PET MED ONC C189 Malignant neoplasm of colon, unspecified 2WKS REVIEW LABS/SCANS PET SCAN ACTIVITY IN ABD Reason for Visit Hypokalemia Colon cancer Colon cancer Colon cancer Colon cancer Colon cancer Abnormal gastrointestinal PET scan S/P right hemicolectomy Colon cancer Chief Complaint Admit Date EORDERS- LABS AND XRAY September 14 10:30am CALLED FOR INR ORDER September 17, 2024 12:38pm SWELLING L 4TH FINGER September 21 9:53am INR September 21, 2024 10:42am SCREENING September 22, 2024 10:14am 1 W FU September 30, 2024 2:38pm STROKE November 08, 2024 3:18 pm Reason for Visit Admit Date Contusion September 21, 2024 9:53am Contusion September 30, 2024 2:38pm Chief Complaint Admit Date EORDERS- LABS AND XRAY September 14 10:30am CALLED FOR INR ORDER September 17, 2024 12:38pm SWELLING L 4TH FINGER September 21 9:53am INR September 21, 2024 10:42am SCREENING September 22, 2024 10:14am 1 W FU September 30, 2024 2:38pm STROKE November 08, 2024 3:18 pm CVA November 11, 2024 6:0 6pm Cerebrovascular accident November 15 2:21pm Cerebrovascular accident November 17 2:08pm Cerebrovascular accident November 19 3:17pm Cerebrovascular accident November 22 9:54am Cerebrovascular accident November 23 12:06pm Cerebrovascular accident November 26 1:55pm Hypersomnia, unspecified November 26 8:44pm STROKE December 07, 2024 9:00am COLONOSCOPY RECALL December 07, 2024 2:17pm LOST TO F/U December 09, 2024 9:03am Personal history of transient ischemic a ttack (TIA December 15, 2024 11:04am STROKE,EXPRESSIVE APHASIA/RX HERE December 152024 12:30pm RIGHT WRIST PAIN AND SWELLING December 17, 2024 11:07am Reason for Visit Admit Date Contusion September 21, 2024 9:53am Contusion September 30, 2024 2:38pm Acute cerebrovascular accident (CVA) Apr 2024 3:18pm Atrial fibrillation November 11, 2024 6:0 6pm Colon cancer November 11, 2024 6:0 6pm Debility November 11, 2024 6:0 6pm Global aphasia November 11, 2024 6:0 6pm Hypoxia November 11, 2024 6:0 6pm Left acute arterial ischemic stroke, MCA (middle cerebral artery) November 11, 2024 6:06pm Pulmonary hypertension November 11, 2024 6:06pm Right sided weakness November 11, 2024 6: 06pm Sleep-disordered breathing November 11, 2 025 6:06pm Visual field cut November 11, 2024 6:0 6pm Bradycardia November 11, 2024 6:0 6pm Chronic anticoagulation November 11, 2024 6:06pm COPD (chronic obstructive pulmonary dise ase) November 11, 2024 6:06pm Obesity (BMI 30.0-34.9) November 11, 2024 6:06pm PAD (peripheral artery disease) November 112024 6:06pm Hypophosphatemia November 11, 2024 6:0 6pm Subtherapeutic international normalized ratio (INR) November 11, 2024 6:06pm (HFpEF) heart failure with preserved eje ction fraction November 11, 2024 6:06pm Diabetes November 11, 2024 6:0 6pm Essential hypertension November 11, 2024 6:06pm Gout November 11, 2024 6:0 6pm Hypothyroidism November 11, 2024 6:0 6pm Mitral stenosis November 11, 2024 6:0 6pm Noncompliance with medication regimen Ap ril 2024 6:06pm S/P right hemicolectomy November 11, 2024 6:06pm Atrial fibrillation December 07, 2024 9:00am Global aphasia December 07, 2024 9:00am Left acute arterial ischemic stroke, MCA (middle cerebral artery) December 07, 2024 9:00am Right sided weakness December 07, 2024 9:00a m Colon cancer December 07, 2024 2:17pm Chronic anticoagulation December 07, 2024 2: 17pm Colon cancer December 09, 2024 9:03am Acute pain of right wrist December 17, 2024 11:07am Atrial fibrillation December 17, 2024 11:07 am Chronic anticoagulation December 17, 2024 1 1:07am History of diabetes mellitus December 17, 2 025 11:07am Chief Complaint Admit Date EORDERS- LABS AND XRAY September 14 10:30am CALLED FOR INR ORDER September 17, 2024 12:38pm SWELLING L 4TH FINGER September 21 9:53am INR September 21, 2024 10:42am SCREENING September 22, 2024 10:14am 1 W FU September 30, 2024 2:38pm STROKE November 08, 2024 3:18 pm CVA November 11, 2024 6:0 6pm Cerebrovascular accident November 15 2:21pm Cerebrovascular accident November 17 2:08pm Cerebrovascular accident November 19 3:17pm Cerebrovascular accident November 22 9:54am Cerebrovascular accident November 23 12:06pm Cerebrovascular accident November 26 1:55pm Hypersomnia, unspecified November 26 8:44pm STROKE December 07, 2024 9:00am COLONOSCOPY RECALL December 07, 2024 2:17pm LOST TO F/U December 09, 2024 9:03am Personal history of transient ischemic a ttack (TIA December 15, 2024 11:04am STROKE,EXPRESSIVE APHASIA/RX HERE December 152024 12:30pm RIGHT WRIST PAIN AND SWELLING December 17, 2024 11:07am RIGHT WRIST PAIN AND SWELLING December 18, 2024 8:20am RIGHT WRIST PAIN AND SWELLING December 18, 2024 1:19pm Chief Complaint Admit Date EORDERS- LABS AND XRAY September 14 10:30am CALLED FOR INR ORDER September 17, 2024 12:38pm SWELLING L 4TH FINGER September 21 9:53am INR September 21, 2024 10:42am SCREENING September 22, 2024 10:14am 1 W FU September 30, 2024 2:38pm STROKE November 08, 2024 3:18 pm CVA November 11, 2024 6:0 6pm Cerebrovascular accident November 15 2:21pm Cerebrovascular accident November 17 2:08pm Cerebrovascular accident November 19 3:17pm Cerebrovascular accident November 22 9:54am Cerebrovascular accident November 23 12:06pm Cerebrovascular accident November 26 1:55pm Hypersomnia, unspecified November 26 8:44pm STROKE December 07, 2024 9:00am COLONOSCOPY RECALL December 07, 2024 2:17pm LOST TO F/U December 09, 2024 9:03am Personal history of transient ischemic a ttack (TIA December 15, 2024 11:04am STROKE,EXPRESSIVE APHASIA/RX HERE December 152024 12:30pm RIGHT WRIST PAIN AND SWELLING December 17, 2024 11:07am RIGHT WRIST PAIN AND SWELLING December 18, 2024 8:20am RIGHT WRIST PAIN AND SWELLING December 18, 2024 1:19pm RIGHT WRIST PAIN AND SWELLING December 19, 2024 11:34am RIGHT WRIST PAIN AND SWELLING December 19, 2024 1:16pm Additional Source Comments INFORMATION SOURCE (unrecogn ized section and content) DATE CREATED AUTHOR 04/24/2021 [facility] ([place]) DATE CREATED AUTHOR AUTHOR'S ORGANIZ ATION 09/07/2021 [facility] DATE CREATED AUTHOR AUTHOR'S ORGANIZ ATION 11/10/2024 [facility] DATE CREATED AUTHOR AUTHOR'S ORGANIZ ATION 11/16/2024 [facility] DATE CREATED AUTHOR AUTHOR'S ORGANIZ ATION 01/18/2025 [facility] Goals (unrecognized section and content) Goals may be documented in a n alternate sectionGoals may be documented in an alternate sectionGoals may be documented in an alternate sectionGoals may be documented in an alternate sectionGoals may be documented in an alternate sectionGoals may be documented in an alternate sectionGoals may be documented in an alternate sectionGoals may be documented in an alternate sectionGoals may be documented in an alternate sectionGoals may be documented in an alternate sectionGoals may be documented in an alternate sectionGoals may be documented in an alternate section Care Teams (unrecognized sec tion and content) Team Status: Active Member Role Status Dates Dr. Alejandro Rosales MD Family Provider Active Dr. Alejandro Rosales MD Primary Care Provider Active Team Status: Inactive Member Role Status Dates Dr. Alejandro Rosales MD Primary Care Provider Active Dr. Jamey Harrington MD Attending Provider Active Team Status: Inactive Member Role Status Dates Dr. Alejandro Rosales MD Primary Care Provide r, Attending Provider, Referring Provider Active Team Status: Inactive Member Role Status Dates Dr. Alejandro Rosales MD Primary Care Provider Active Dr. Marc Robbins MD Attending Provider, Referring Pro vider Active Team Status: Inactive Member Role Status Dates Dr. Alejandro Rosales MD Primary Care Provider, Referring P geo Active Dr. Marc Robbins MD Attending Provider Active Team Status: Active Member Role Status Dates Dr. Alejandro Rosales MD Primary Care Provider Active Dr. Marc Robbins MD Attending Provider, Referring Pro vider Active Team Status: Inactive Member Role Status Dates Dr. Alejandro Rosales MD Primary Care Provider, Referring P geo Active Dr. Michelle Paige MD Attending Provider Active Post Framer Relationship Specialty Start Date End Date Alejandro Rosales MD [address] [place] [id number] PCP - General Family Medicine 12/25/18 Team Status: Active Member Role Status Dates Dr. Alejandro Rosales MD Primary Care Provider Active Team Status: Inactive Member Role Status Dates Dr. Alejandro Rosales MD Primary Care Provider Active Start: September 14, 2024 End: September 14, 2024 Dr. Alejandro Rosales MD Attending Provider Active St art: September 14, 2024 End: September 14, 2024 Dr. Alejandro Rosales MD Referring Provider Active St art: September 14, 2024 End: September 14, 2024 Team Status: Inactive Member Role Status Dates Dr. Alejandro Rosales MD Primary Care Provider Active Start: September 17, 2024 End: September 17, 2024 Dr. Alejandro Rosales MD Attending Provider Active St art: September 17, 2024 End: September 17, 2024 Dr. Alejandro Rosales MD Referring Provider Active St art: September 17, 2024 End: September 17, 2024 Team Status: Inactive Member Role Status Dates Dr. Alejandro Rosales MD Primary Care Provider Active Start: September 21, 2024 End: September 21, 2024 Dr. Alejandro Rosales MD Referring Provider Active St art: September 21, 2024 End: September 21, 2024 Dr. Kevan Jama MD Attending Provider Active Start: September 21, 2024 End: September 21, 2024 Team Status: Inactive Member Role Status Dates Dr. Alejandro Rosales MD Primary Care Provider Active Start: September 21, 2024 End: October 01, 2024 Dr. Alejandro Rosales MD Attending Provider Active St art: September 21, 2024 End: October 01, 2024 Dr. Alejandro Rosales MD Referring Provider Active St art: September 21, 2024 End: October 01, 2024 Team Status: Inactive Member Role Status Dates Dr. Alejandro Rosales MD Primary Care Provider Active Start: September 22, 2024 End: September 22, 2024 Dr. Alejandro Rosales MD Attending Provider Active St art: September 22, 2024 End: September 22, 2024 Dr. Alejandro Rosales MD Referring Provider Active St art: September 22, 2024 End: September 22, 2024 Team Status: Inactive Member Role Status Dates Dr. Alejandro Rosales MD Primary Care Provider Active Start: September 30, 2024 End: September 30, 2024 Dr. Alejandro Rosales MD Referring Provider Active St art: September 30, 2024 End: September 30, 2024 Dr. Kevan Jama MD Attending Provider Active Start: September 30, 2024 End: September 30, 2024 Team Status: Inactive Member Role Status Dates Dr. Alejandro Rosales MD Primary Care Provider Active Start: November 08, 2024 End: November 08, 2024 Dr. Phillip Maldonado DO Emergency Provider Active Start: November 08, 2024 End: November 08, 2024 Post Framer Relationship Specialty Start Date End Date Alejandro Rosales MD [facility] [place] [address] [place] [address] PCP - General Family Medicine 11/09/24 Team Status: Inactive Member Role Status Dates Dr. Alejandro Rosales MD Primary Care Provider Active Start: November 08, 2024 End: November 08, 2024 Dr. Phillip Maldonado DO Attending Provider Active Start: November 08, 2024 End: November 08, 2024 Dr. Phillip Maldonado DO Emergency Provider Active Start: November 08, 2024 End: November 08, 2024 Team Status: Inactive Member Role Status Dates Dr. Alejandro Rosales MD Primary Care Provider Active Start: November 11, 2024 End: November 26, 2024 Dr. Rg Ponce MD Admit Provider Active Star t: November 11, 2024 End: November 26, 2024 Dr. Rg Ponce MD Referring Provider Active Start: November 11, 2024 End: November 26, 2024 Dr. Rg Ponce MD Other Provider Active Star t: November 11, 2024 End: November 26, 2024 Dr. Ada Soliman DO Attending Provider Act tom Start: November 11, 2024 End: November 26, 2024 Team Status: Active Member Role Status Dates Dr. Alejandro Rosales MD Primary Care Provider Active Start: November 15, 2024 Dr. Rg Ponce MD Admit Provider Active Star t: November 15, 2024 Dr. Rg Ponce MD Other Provider Active Star t: November 15, 2024 Dr. Ada Soliman DO Attending Provider Act tom Start: November 15, 2024 Dr. Ada Soliman DO Other Provider Active Start: November 15, 2024 Team Status: Active Member Role Status Dates Dr. Alejandro Rosales MD Primary Care Provider Active Start: November 17, 2024 Dr. Rg Ponce MD Admit Provider Active Star t: November 17, 2024 Dr. Rg Ponce MD Other Provider Active Star t: November 17, 2024 Dr. Ada Soliman DO Attending Provider Act tom Start: November 17, 2024 Dr. Ada Soliman DO Other Provider Active Start: November 17, 2024 Team Status: Active Member Role Status Dates Dr. Alejandro Rosales MD Primary Care Provider Active Start: November 19, 2024 Dr. Rg Ponce MD Admit Provider Active Star t: November 19, 2024 Dr. Rg Ponce MD Other Provider Active Star t: November 19, 2024 Dr. Ada Soliman DO Attending Provider Act tom Start: November 19, 2024 Dr. Ada Soliman DO Other Provider Active Start: November 19, 2024 Team Status: Active Member Role Status Dates Dr. Alejandro Rosales MD Primary Care Provider Active Start: November 22, 2024 Dr. Rg Ponce MD Admit Provider Active Star t: November 22, 2024 Dr. Rg Ponce MD Other Provider Active Star t: November 22, 2024 Dr. Ada Soliman DO Attending Provider Act tom Start: November 22, 2024 Dr. Ada Soliman DO Other Provider Active Start: November 22, 2024 Team Status: Active Member Role Status Dates Dr. Alejandro Rosales MD Primary Care Provider Active Start: November 23, 2024 Dr. Rg Ponce MD Admit Provider Active Star t: November 23, 2024 Dr. Rg Ponce MD Other Provider Active Star t: November 23, 2024 Dr. Ada Soliman DO Attending Provider Act tom Start: November 23, 2024 Dr. Ada Soliman DO Other Provider Active Start: November 23, 2024 Team Status: Active Member Role Status Dates Dr. Alejandro Rosales MD Primary Care Provider Active Start: November 26, 2024 Dr. Rg Ponce MD Admit Provider Active Star t: November 26, 2024 Dr. Rg Ponce MD Other Provider Active Star t: November 26, 2024 Dr. Ada Soliman DO Attending Provider Act tom Start: November 26, 2024 Dr. Ada Soliman DO Other Provider Active Start: November 26, 2024 Team Status: Inactive Member Role Status Dates Dr. Alejandro Rosales MD Primary Care Provider Active Start: November 26, 2024 End: November 26, 2024 Dr. Ada Soliman DO Attending Provider Act tom Start: November 26, 2024 End: November 26, 2024 Dr. Ada Soliman DO Referring Provider Act tom Start: November 26, 2024 End: November 26, 2024 Team Status: Inactive Member Role Status Dates Dr. Alejandro Rosales MD Primary Care Provider Active Start: December 07, 2024 End: December 07, 2024 Dr. Alejandro Rosales MD Referring Provider Active St art: December 07, 2024 End: December 07, 2024 JAZMINE Montesinos Attending Provider Active S tart: December 07, 2024 End: December 07, 2024 Team Status: Inactive Member Role Status Dates Dr. Alejandro Rosales MD Primary Care Provider Active Start: December 07, 2024 End: December 07, 2024 Dr. Alejandro Rosales MD Referring Provider Active St art: December 07, 2024 End: December 07, 2024 Dr. Michelle Paige MD Attending Provider Active Start: December 07, 2024 End: December 07, 2024 Team Status: Inactive Member Role Status Dates Dr. Alejandro Rosales MD Primary Care Provider Active Start: December 09, 2024 End: December 09, 2024 Dr. Alejandro Rosales MD Referring Provider Active St art: December 09, 2024 End: December 09, 2024 Dr. Marc Robbins MD Attending Provider Active S tart: December 09, 2024 End: December 09, 2024 Team Status: Active Member Role Status Dates Dr. Alejandro Rosales MD Primary Care Provider Active Start: December 15, 2024 Dr. Jamey Harrington MD Attending Provider Active Start: December 15, 2024 Dr. Jamey Harrington MD Referring Provider Active Start: December 15, 2024 Team Status: Active Member Role Status Dates Dr. Alejandro Rosales MD Primary Care Provider Active Start: December 15, 2024 Dr. Ada Soliman , DO Attending Provider Act tom Start: December 15, 2024 Dr. Ada Soliman , DO Referring Provider Act tom Start: December 15, 2024 Team Status: Active Member Role Status Dates Dr. Alejandro Rosales MD Primary Care Provider Active Start: December 17, 2024 Dr. Tang Mendiola DO Emergency Provider Active Start : December 17, 2024 Dr. Shayla Castro MD Admit Provider Active St art: December 17, 2024 Dr. Shayla Castro MD Attending Provider Active Start: December 17, 2024 Dr. Kevan Jama MD Other Provider Active Star t: December 17, 2024 Team Status: Inactive Member Role Status Dates Dr. Alejandro Rosales MD Primary Care Provider Active Start: December 15, 2024 End: December 15, 2024 Dr. Jamey Harrington MD Attending Provider Active Start: December 15, 2024 End: December 15, 2024 Dr. Jamey Harrington MD Referring Provider Active Start: December 15, 2024 End: December 15, 2024 Team Status: Active Member Role Status Dates Dr. Alejandro Rosales MD Primary Care Provider Active Start: December 18, 2024 Dr. Tang Mendiola DO Emergency Provider Active Start : December 18, 2024 Dr. Shayla Castro MD Admit Provider Active St art: December 18, 2024 Dr. Shayla Castro MD Other Provider Active St art: December 18, 2024 Dr. Kevan Jama MD Attending Provider Active Start: December 18, 2024 Dr. Kevan Jama MD Other Provider Active Star t: December 18, 2024 Team Status: Active Member Role Status Dates Dr. Alejandro Rosales MD Primary Care Provider Active Start: December 18, 2024 Dr. Tang Mendiola DO Emergency Provider Active Start : December 18, 2024 Dr. Shayla Castro MD Admit Provider Active St art: December 18, 2024 Dr. Shayla Castro MD Attending Provider Active Start: December 18, 2024 Dr. Shayla Castro MD Other Provider Active St art: December 18, 2024 Dr. Kevan Jama MD Other Provider Active Star t: December 18, 2024 Team Status: Inactive Member Role Status Dates Dr. Alejandro Rosales MD Primary Care Provider Active Start: December 17, 2024 End: December 19, 2024 Dr. Tang Mendiola DO Emergency Provider Active Start : December 17, 2024 End: December 19, 2024 Dr. Shayla Castro MD Admit Provider Active St art: December 17, 2024 End: December 19, 2024 Dr. Shayla Csatro MD Attending Provider Active Start: December 17, 2024 End: December 19, 2024 Dr. Kevan Jama MD Other Provider Active Star t: December 17, 2024 End: December 19, 2024 Dr. Kevan Jama MD Other Provider Active Star t: December 17, 2024 Team Status: Active Member Role Status Dates Dr. Alejandro Rosales MD Primary Care Provider Active Start: December 19, 2024 Dr. Tang Mendiola DO Emergency Provider Active Start : December 19, 2024 Dr. Shayla Castro MD Admit Provider Active St art: December 19, 2024 Dr. Shayla Castro MD Other Provider Active St art: December 19, 2024 Dr. Kevan Jama MD Attending Provider Active Start: December 19, 2024 Dr. Kevan Jama MD Other Provider Active Star t: December 19, 2024 Team Status: Active Member Role Status Dates Dr. Alejandro Rosales MD Primary Care Provider Active Start: December 19, 2024 Dr. Tang Mendiola DO Emergency Provider Active Start : December 19, 2024 Dr. Shayla Castro MD Admit Provider Active St art: December 19, 2024 Dr. Shayla Castro MD Attending Provider Active Start: December 19, 2024 Dr. Shayla Castro MD Other Provider Active St art: December 19, 2024 Dr. Kevan Jama MD Other Provider Active Star t: December 19, 2024 Source Comments (unrecognize d section and content) In the event this informatio n is protected by the Federal Confidentiality of Alcohol and Drug Abuse Patient Records regulations: The Federal rules restrict any use of the information to criminally investigate or prosecute any alcohol or drug abuse patient.[facility] Scheduled Active and Recently Administ ered Medications (unrecognized section and content) Medication Order 11/09/2024 11/10/2024 11/11/2024 aspirin chewable tablet 81 mg(Linked Group 1) 81 mg, Oral, DAILY, First dose on Fri11/09/24 at 0900, Until Discontinued, May begin use of chewable aspirin when patient passes swallow test. 1046 (Given - Provider: Shelley Malagon RN) 0741 (Given - Provider: Shelley Malagon RN) 0822 (Given - Provider: Brooke Hernandez, Student Nurse) aspirin suppository 300 mg(Linked Group 1) 300 mg, Rectal, DAILY, First dose on Fri11/09/24 at 0900, Until Discontinued, Use suppository until patient passes swallow test. 1046 (See Alternative - Provider: Shelley Malagon RN) 0741 (See Alternative - Provider: Shelley Malagon RN) 0822 (See Alternative - Provider: Brooke Hernandez, Student Nurse) Atorvastatin (LIPITOR) tablet 40 mg 40 mg, Oral, DAILY AT BEDTIME, First dose on Fri11/09/24 at 2100, Until Discontinued 2112 (Given - Provider: Loretta Parker RN) 2202 (Given - Provider: Loretta Parker, SHIRLEY) budesonide-glycopyrrol ate-formoterol (BREZTRI) 160-9-4.8 MCG/ACT inhaler 2 puff 2 puff, Inhalation, 2 TIMES DAILY, First dose on Fri11/09/24 at 1130, Until Discontinued 1458 (Not Given - Provider: Lynn Pizarro, Limited Permit [place] - Reason: Other - Comment: too close to next due time)2031 (Given - Provider: Jessie Stanley RCP) 100 (Given - Provider: Xiao Sosa RCP)2010 (Given - Provider: Renee Caro, RT) 110 (Given - Provider: Laurie Burnett RCP) Clopidogrel (PLAVIX) tablet 75 mg (CANCELED)(Linked Group 2) 75 mg, Oral, DAILY, First dose on Fri11/09/24 at 0900, Until Discontinued 1038 (Given - Provider: Shelley Malagon RN) Enoxaparin Sodium (LOVENOX) injection 40 mg 40 mg, Subcutaneous, DAILY, First dose on Fri11/09/24 at 0900, Until Discontinued, For SUBCUTANEOUS route ONLY: alternate injection sites between left and right abdominal wall, pinching location and avoiding area around navel. If unable to use abdominal sites, may use the front or side of thighs., Indications: DVT/PE prophylaxis 1043 (Given - Provider: Shelley Malagon RN) 0741 (Given - Provider: Shelley Malagon RN) 0822 (Given - Provider: Brooke Hernandez, Student Nurse) fluticasone (FLONASE) 50 MCG/ACT nasal spray 2 spray 2 spray, Nasal, DAILY, First dose on Fri11/09/24 at 1100, Until Discontinued, Dose is for each nostril. 1200 (Hold - Provider: Shelley Malagon RN - Reason: Patient sleeping) 0741 (Given - Provider: Shelley Malagon RN) 0822 (Given - Provider: Brooke Hernandez, Student Nurse) Insulin lispro (HUMALOG) injection(Linked Group 3) Subcutaneous, 4 TIMES DAILY WITH MEALS & AT BEDTIME, First dose on Fri11/08/24 at 2100, Until Discontinued, Insulin to carb ratio: Standard: 1 unit insulin = 10 grams carbs every meal and at bedtime Correction Factor: 151-200 = 1 unit; 201-250 = 2 units; 251-300 = 3 units; 301-350 = 4 units; 351-400 = 5 units; Kwikpen: Prime pen before each injection; refer to Pen Priming and Care Handout for further details. Warning! Confirm patient. Insulin pen is for labeled individual patient use ONLY. 0827 (Not Given - Provider: Shelley Malagon RN - Reason: Order Parameters not met)1238 (Hold - Provider: Shelley Malagon RN - Reason: Other - Comment: Patient ate just before BG taken, request to hold until eating diet)1607 (Not Given - Provider: Shelley Malagon RN - Reason: Order Parameters not met)2113 (Given - Provider: Loretta Parker RN) 0744 (Given - Provider: Shelley Malagon RN)1108 (Not Given - Provider: Shelley Malagon RN - Reason: Order Parameters not met)1632 (Not Given - Provider: Shelley Malagon RN - Reason: Order Parameters not met)2202 (Not Given - Provider: Loretta Parker RN - Reason: Order Parameters not met) 0831 (Given - Provider: Brooke Hernandez, Student Nurse)1252 (Given - Provider: Kennedy Key RN) Levothyroxine (SYNTHROID) tablet 88 mcg 88 mcg, Oral, DAILY BEFORE BREAKFAST, First dose on Fri11/09/24 at 0600, Until Discontinued, Hold tube feedings for 1 hour before and 1 hour after medication administration. 0826 (Not Given - Provider: Shelley Malagon RN - Reason: NPO) 0502 (Given - Provider: Loretta Parker RN) 0610 (Given - Provider: Loretta Parker RN) Senna (SENOKOT) tablet 8.6 mg(Linked Group 4) 8.6 mg, Oral, DAILY EVERY MORNING, First dose on Fri11/09/24 at 0900, Until Discontinued, Hold if BM in last 2 hours. 1046 (Given - Provider: Shelley Malagon RN) 0741 (Given - Provider: Shelley Malagon RN) 0821 (Given - Provider: Brooke Hernandez, Student Nurse) Senna (SENOKOT) tablet 8.6 mg(Linked Group 4) 8.6 mg, Per NG tube, DAILY EVERY MORNING, First dose on Fri11/09/24 at 0900, Until Discontinued, Hold if BM in last 2 hours. 1046 (See Alternative - Provider: Shelley Malagon RN) 0741 (See Alternative - Provider: Shelley Malagon RN) 0821 (See Alternative - Provider: Brooke Hernandez, Student Nurse) Continuous Medication Order 11/09/2024 11/10/2024 11/11/2024 Sodium chloride 0.9% IV solution (CANCELED) Intravenous, at 75 mL/hr, CONTINUOUS, Starting on Fri11/08/24 at 2014, Until Fri11/09/24 at 2049 0000 (Rate/Dose Verify - Provider: Tyesha Cody RN)0024 (Paused - Provider: Tyesha Cody RN)0119 (Restarted - Provider: Tyesha Cody RN)0200 (Rate/Dose Verify - Provider: Tyesha Cody RN)0400 (Rate/Dose Verify - Provider: Tyesha Cdoy RN)0432 (Paused - Provider: Shelley Malagon RN)0442 (Restarted - Provider: Shelley Malagon RN)0826 (Rate/Dose Verify - Provider: Shelley Malagon RN)0907 (Rate/Dose Verify - Provider: Shelley Malagon RN)1105 (Stopped - Provider: Shelley Malagon RN) PRN Medication Order 11/09/2024 11/10/2024 11/11/2024 Acetaminophen (TYLENOL) tablet 325 mg(Linked Group 5) 325 mg, Oral, EVERY 4 HOURS NEEDED, Starting on Fri11/08/24 at 2011, Until Fri11/11/24 at 1658, Mild Pain, Moderate Pain, Maximum dose of acetaminophen is 4000 mg from all sources in 24 hours. 1611 (See Alternative - Provider: Shelley Malagon RN) 0742 (See Alternative - Provider: Shelley Malagon RN)2103 (Given - Provider: Loretta Parker, RN) 0058 (See Alternative - Provider: Loretta Parker, RN)0638 (See Alternative - Provider: Loretta Parker, RN) Acetaminophen (TYLENOL) tablet 325 mg(Linked Group 5) 325 mg, Per NG tube, EVERY 4 HOURS NEEDED, Starting on Fri11/08/24 at 2011, Until [place]ila 11/11/24 at 1658, Mild Pain, Moderate Pain, Maximum dose of acetaminophen is 4000 mg from all sources in 24 hours. 1611 (See Alternative - Provider: Shelley Malagon RN) 0742 (See Alternative - Provider: Shelley Malagon RN)2102 (See Alternative - Provider: Loretta Parker RN) 005 (See Alternative - Provider: Loretta Parker RN)0638 (See Alternative - Provider: Loretta Parker RN) Acetaminophen (TYLENOL) tablet 650 mg(Linked Group 5) 650 mg, Oral, EVERY 4 HOURS NEEDED, Starting on Fri11/08/24 at 2011, Until [place] 11/11/24 at 1658, Severe Pain, Oral temp > 99.5, Maximum dose of acetaminophen is 4000 mg from all sources in 24 hours. 1611 (Given - Provider: Shelley Malagon RN) 0742 (Given - Provider: Shelley Malagon RN)2102 (See Alternative - Provider: Loretta Parker RN) 005 (Given - Provider: Loretta Parker RN)0638 (Given - Provider: Loretta Parker RN) Acetaminophen (TYLENOL) tablet 650 mg(Linked Group 5) 650 mg, Per NG tube, EVERY 4 HOURS NEEDED, Starting on Fri11/08/24 at 2011, Until [place]ila 11/11/24 at 1658, Severe Pain, Oral temp > 99.5, Maximum dose of acetaminophen is 4000 mg from all sources in 24 hours. 1611 (See Alternative - Provider: Shelley Malagon RN) 0742 (See Alternative - Provider: Shelley Malagon RN)2102 (See Alternative - Provider: Loretta Parker RN) 005 (See Alternative - Provider: Loretta Parker RN)0638 (See Alternative - Provider: Loretta Parker RN) Albuterol inhaler 2 puff 2 puff, Inhalation, EVERY 6 HOURS NEEDED, Starting on Fri11/08/24 at 2017, Until [place]ila 11/11/24 at 1658, Shortness of Breath, Wheezing, Wait at least one(1) full minute between inhalations Dextrose 50% injection 7.5-25 g(Linked Group 3) 7.5-25 g, Intravenous, ADMINISTER DIRECTED, Starting on Fri11/08/24 at 2018, Until [place]ila 11/11/24 at 1658, Blood glucose <80 mg/dL, For patients who are not alert, are NPO, or are on IV insulin infusion administer as directed per Hypoglycemia in Non- Adults Clinical Practice Guideline. For Blood Glucose: 60-79 mg/dL administer 7.5 gm (15ml); 45-59 mg/dL administer 12.5 gm (25ml); less than 45mg/dL administer 25gm (50ml). ++ If additional dextrose 50% needed, contact pharmacy or obtain from crash cart ++ glucose (GLUTOSE) 40 % oral gel 1-2 Tube(Linked Group 3) 1-2 Tube, Oral, ADMINISTER DIRECTED, Starting on Fri11/08/24 at 2018, Until Urmila 11/11/24 at 1658, Blood glucose <80 mg/dL, For patients who are alert, able to tolerate PO intake and with intact cognitive status administer as directed per Hypoglycemia in Non- Adults Clinical Practice Guideline. For Blood Glucose: 60-79 mg/dL administer 1 tube; 45-59 mg/dl administer 1.5 tubes; less than 45 mg/dL administer 2 tubes. Each tube of 37.5g delivers 15g of carbohydrate. hydrALAZINE (APRESOLINE) injection 10 mg 10 mg, Intravenous, EVERY 10 MINUTES NEEDED, 3 doses, Starting on Fri11/08/24 at 1800, Until Urmila 11/11/24 at 1658, Administer for systolic blood pressure greater than 220 OR diastolic blood pressure greater than 120. HOLD if heart rate greater than 60. hydrALAZINE (APRESOLINE) injection 10 mg(Linked Group 6) 10 mg, Intravenous, EVERY 1 HOUR NEEDED, Starting on Fri11/08/24 at 2011, Until U[place]ila 11/11/24 at 1658, Systolic Blood Pressure greater than 220 mmHg OR Diastolic Blood Pressure greater than 120 mmHg and heart rate LESS THAN 60 beats per minute., Use as initial dose. Higher dose may be administered if lower dose was previously documented as ineffective 10 minutes after administration and did not result in adverse effects (HR>90). hydrALAZINE (APRESOLINE) injection 20 mg(Linked Group 6) 20 mg, Intravenous, EVERY 1 HOUR NEEDED, Starting on Fri11/08/24 at 2011, Until Urmila 11/11/24 at 1658, Systolic Blood Pressure greater than 220 mmHg OR Diastolic Blood Pressure greater than 120 mmHg and heart rate LESS THAN 60 beats per minute., Higher dose may be administered if lower dose was previously documented as ineffective 10 minutes after administration and did not result in adverse effects (HR>90). Decrease back to lower dose if patient has adverse effects, or no PRN used in previous 3 hours. Insulin lispro (HUMALOG) injection(Linked Group 3) Subcutaneous, NEEDED, Starting on Fri11/08/24 at 2018, Until [place] 11/11/24 at 1658, Other, As needed for snacks, Insulin to carb ratio: Standard: 1 unit insulin = 10 grams carbs Correction Factor: not to be used with this order. Kwikpen: Prime pen before each injection; refer to Pen Priming and Care Handout for further details. Warning! Confirm patient. Insulin pen is for labeled individual patient use ONLY. Labetalol (NORMODYNE) injection 10 mg(Linked Group 7) 10 mg, Intravenous, EVERY 1 HOUR NEEDED, Starting on Fri11/08/24 at 2011, Until U[place]ila 11/11/24 at 1658, Systolic Blood Pressure greater than 220 mmHg OR Diastolic Blood Pressure greater than 120 mmHg and heart rate GREATER THAN 60 beats per minute., Use as initial dose. Higher dose may be administered if lower dose was previously documented as ineffective 10 minutes after administration and did not result in adverse effects (HR<60). For vials: labetalol should be treated as a SINGLE USE VIAL. Discard remaining contents after one use. Labetalol (NORMODYNE) injection 20 mg 20 mg, Intravenous, EVERY 10 MINUTES NEEDED, 3 doses, Starting on Fri11/08/24 at 1800, Until Urmila 11/11/24 at 1658, Administer for systolic blood pressure greater than 220 OR diastolic blood pressure greater than 120. HOLD if heart rate less than 60., Administration duration: up to 20 mg over 2 minutes. Telemetry required except for SENIOR TAX ANALYST patients on [address]. For vials: labetalol should be treated as a SINGLE USE VIAL. Discard remaining contents after one use. Labetalol (NORMODYNE) injection 20 mg(Linked Group 7) 20 mg, Intravenous, EVERY 1 HOUR NEEDED, Starting on Fri11/08/24 at 2011, Until U[place]ila 11/11/24 at 1658, Systolic Blood Pressure greater than 220 mmHg OR Diastolic Blood Pressure greater than 120 mmHg and heart rate GREATER THAN 60 beats per minute., Higher dose may be administered if lower dose was previously documented as ineffective 10 minutes after administration and did not result in adverse effects (HR<60). Decrease back to lower dose if patient has adverse effects, or no PRN used in previous 3 hours. For vials: labetalol should be treated as a SINGLE USE VIAL. Discard remaining contents after one use. Polyethylene glycol (MIRALAX) packet 17 g(Linked Group 8) 17 g, Oral, DAILY NEEDED, Starting on Fri11/08/24 at 2011, Until Fri11/11/24 at 1658, Constipation If No Bowel Movement in 48 Hours Polyethylene glycol (MIRALAX) packet 17 g(Linked Group 8) 17 g, Per NG tube, DAILY NEEDED, Starting on Fri11/08/24 at 2011, Until Fri11/11/24 at 1658, Constipation If No Bowel Movement in 48 Hours Linked Groups Order Group 1: aspirin chewable tablet 81 mgJump to med 81 mg, Oral, DAILY, First dose on Fri11/09/24 at 0900, Until Discontinued, May begin use of chewable aspirin when patient passes swallow test. Or aspirin suppository 300 mgJump to med 300 mg, Rectal, DAILY, First dose on Fri11/09/24 at 0900, Until Discontinued, Use suppository until patient passes swallow test. Group 2: Clopidogrel (PLAVIX) tablet 75 mg (CANCELED)Jump to med 75 mg, Oral, DAILY, First dose on Fri11/09/24 at 0900, Until Discontinued Or Clopidogrel (PLAVIX) tablet 75 mg (CANCELED) 75 mg, Per NG tube, DAILY, First dose on Fri11/09/24 at 0900, Until Discontinued Group 3: Insulin lispro (HUMALOG) injectionJump to med Subcutaneous, 4 TIMES DAILY WITH MEALS & AT BEDTIME, First dose on Fri11/08/24 at 2100, Until Discontinued, Insulin to carb ratio: Standard: 1 unit insulin = 10 grams carbs every meal and at bedtime Correction Factor: 151-200 = 1 unit; 201-250 = 2 units; 251-300 = 3 units; 301-350 = 4 units; 351-400 = 5 units; Kwikpen: Prime pen before each injection; refer to Pen Priming and Care Handout for further details. Warning! Confirm patient. Insulin pen is for labeled individual patient use ONLY. And Insulin lispro (HUMALOG) injectionJump to med Subcutaneous, NEEDED, Starting on Fri11/08/24 at 2017, Until Fri11/11/24 at 1658, Other, As needed for snacks, Insulin to carb ratio: Standard: 1 unit insulin = 10 grams carbs Correction Factor: not to be used with this order. Kwikpen: Prime pen before each injection; refer to Pen Priming and Care Handout for further details. Warning! Confirm patient. Insulin pen is for labeled individual patient use ONLY. And BLOOD GLUCOSE (POC DEVICE) (CANCELED) Routine, 4 TIMES DAILY BEFORE MEALS & AT BEDTIME, First occurrence on Fri11/08/24 at 2100, If any Blood Glucose (POC) is greater than 300mg/dl, then repeat Blood Glucose (POC) in 2 hours. If the initial blood glucose was greater than 300mg/dl and if second blood glucose is greater than 200md/dl, then notify Nurse'S Companion. And BLOOD GLUCOSE (POC DEVICE) (CANCELED) Routine, DIRECTED, Starting on Fri11/08/24 at 2017, Until Specified, For all Blood Glucose LESS THAN 80 mg/dL, treat per Hypoglycemia in Non- Adults Clinical Practice Guideline (CPG) and recheck glucose 15 min after treatment. Repeat per CPG until glucose GREATER THAN 80 mg/dL. Once glucose IS GREATER THAN 80 mg/dL, recheck Blood Glucose every 1 hour x2, then resume as previously ordered. For Blood Glucose LESS THAN 80 mg/dL on admission OR LESS than 45 mg/dL at any time, obtain POC Blood Glucose every 4 hours for 6 occurrences AFTER treating per CPG. Obtain blood glucose for symptoms of hypoglycemia: sweating, shaking, fatigue, rapid pulse, slow thinking & dizziness. Notify physician w/results. Obtain blood glucose for symptoms of hyperglycemia: excessive thirst, blurred vision, excessive urination & tiredness. Notify physician w/results. If patient NPO, obtain POC Blood Glucose prior to administration of any insulin products. And COMMUNICATION ORDER FOR NURSING CARE: For Blood Glucose LESS THAN 80 mg/dl (CANCELED) Routine, CONTINUOUS, Starting on Fri11/08/24 at 2019, Until Specified, For Blood Glucose LESS THAN 80 mg/dl follow Hypoglycemia in Non- Adults Clinical Practice Guideline (CPG) And Dextrose 50% injection 7.5-25 gJump to med 7.5-25 g, Intravenous, ADMINISTER DIRECTED, Starting on Fri11/08/24 at 2017, Until Fri11/11/24 at 1658, Blood glucose <80 mg/dL, For patients who are not alert, are NPO, or are on IV insulin infusion administer as directed per Hypoglycemia in Non- Adults Clinical Practice Guideline. For Blood Glucose: 60-79 mg/dL administer 7.5 gm (15ml); 45-59 mg/dL administer 12.5 gm (25ml); less than 45mg/dL administer 25gm (50ml). ++ If additional dextrose 50% needed, contact pharmacy or obtain from [facility] cart ++ And glucose (GLUTOSE) 40 % oral gel 1-2 TubeJump to med 1-2 Tube, Oral, ADMINISTER DIRECTED, Starting on Fri11/08/24 at 2017, Until Fri11/11/24 at 1658, Blood glucose <80 mg/dL, For patients who are alert, able to tolerate PO intake and with intact cognitive status administer as directed per Hypoglycemia in Non- Adults Clinical Practice Guideline. For Blood Glucose: 60-79 mg/dL administer 1 tube; 45-59 mg/dl administer 1.5 tubes; less than 45 mg/dL administer 2 tubes. Each tube of 37.5g delivers 15g of carbohydrate. And NOTIFY PHYSICIAN, Blood Glucose LESS THAN 80 mg/dl (CANCELED) Routine, CONTINUOUS, Starting on Fri11/08/24 at 2019, Until Specified, Who to Notify: Nurse'S Companion, For all Blood Glucose LESS THAN 80 mg/dl, notify Nurse'S Companion after treatment per Hypoglycemia in Non- Adults Clinical Practice Guideline And Carbohydrate counts with meals (CANCELED) Routine, CONTINUOUS, Starting on Fri11/08/24 at 2019, Until Specified, Carbohydrate counts are to be done after each patient meal and with snack. Group 4: Senna (SENOKOT) tablet 8.6 mgJump to med 8.6 mg, Oral, DAILY EVERY MORNING, First dose on Fri11/09/24 at 0900, Until Discontinued, Hold if BM in last 2 hours. Or Senna (SENOKOT) tablet 8.6 mgJump to med 8.6 mg, Per NG tube, DAILY EVERY MORNING, First dose on Fri11/09/24 at 0900, Until Discontinued, Hold if BM in last 2 hours. Group 5: Acetaminophen (TYLENOL) tablet 325 mgJump to med 325 mg, Oral, EVERY 4 HOURS NEEDED, Starting on Fri11/08/24 at 2011, Until Fri11/11/24 at 1658, Mild Pain, Moderate Pain, Maximum dose of acetaminophen is 4000 mg from all sources in 24 hours. Or Acetaminophen (TYLENOL) tablet 325 mgJump to med 325 mg, Per NG tube, EVERY 4 HOURS NEEDED, Starting on Fri11/08/24 at 2011, Until Fri11/11/24 at 1658, Mild Pain, Moderate Pain, Maximum dose of acetaminophen is 4000 mg from all sources in 24 hours. Or Acetaminophen (TYLENOL) tablet 650 mgJump to med 650 mg, Oral, EVERY 4 HOURS NEEDED, Starting on Fri11/08/24 at 2011, Until Fri11/11/24 at 1658, Severe Pain, Oral temp > 99.5, Maximum dose of acetaminophen is 4000 mg from all sources in 24 hours. Or Acetaminophen (TYLENOL) tablet 650 mgJump to med 650 mg, Per NG tube, EVERY 4 HOURS NEEDED, Starting on Fri11/08/24 at 2011, Until Fri11/11/24 at 1658, Severe Pain, Oral temp > 99.5, Maximum dose of acetaminophen is 4000 mg from all sources in 24 hours. Group 6: hydrALAZINE (APRESOLINE) injection 10 mgJump to med 10 mg, Intravenous, EVERY 1 HOUR NEEDED, Starting on Fri11/08/24 at 2011, Until Fri11/11/24 at 1658, Systolic Blood Pressure greater than 220 mmHg OR Diastolic Blood Pressure greater than 120 mmHg and heart rate LESS THAN 60 beats per minute., Use as initial dose. Higher dose may be administered if lower dose was previously documented as ineffective 10 minutes after administration and did not result in adverse effects (HR>90). Or hydrALAZINE (APRESOLINE) injection 20 mgJump to med 20 mg, Intravenous, EVERY 1 HOUR NEEDED, Starting on Fri11/08/24 at 2011, Until Fri11/11/24 at 1658, Systolic Blood Pressure greater than 220 mmHg OR Diastolic Blood Pressure greater than 120 mmHg and heart rate LESS THAN 60 beats per minute., Higher dose may be administered if lower dose was previously documented as ineffective 10 minutes after administration and did not result in adverse effects (HR>90). Decrease back to lower dose if patient has adverse effects, or no PRN used in previous 3 hours. Group 7: Labetalol (NORMODYNE) injection 10 mgJump to med 10 mg, Intravenous, EVERY 1 HOUR NEEDED, Starting on Fri11/08/24 at 2011, Until Fri11/11/24 at 1658, Systolic Blood Pressure greater than 220 mmHg OR Diastolic Blood Pressure greater than 120 mmHg and heart rate GREATER THAN 60 beats per minute., Use as initial dose. Higher dose may be administered if lower dose was previously documented as ineffective 10 minutes after administration and did not result in adverse effects (HR<60). For vials: labetalol should be treated as a SINGLE USE VIAL. Discard remaining contents after one use. Or Labetalol (NORMODYNE) injection 20 mgJump to med 20 mg, Intravenous, EVERY 1 HOUR NEEDED, Starting on Fri11/08/24 at 2011, Until Urmila 11/11/24 at 1658, Systolic Blood Pressure greater than 220 mmHg OR Diastolic Blood Pressure greater than 120 mmHg and heart rate GREATER THAN 60 beats per minute., Higher dose may be administered if lower dose was previously documented as ineffective 10 minutes after administration and did not result in adverse effects (HR<60). Decrease back to lower dose if patient has adverse effects, or no PRN used in previous 3 hours. For vials: labetalol should be treated as a SINGLE USE VIAL. Discard remaining contents after one use. Group 8: Polyethylene glycol (MIRALAX) packet 17 gJump to med 17 g, Oral, DAILY NEEDED, Starting on Fri11/08/24 at 2011, Until Fri11/11/24 at 1658, Constipation If No Bowel Movement in 48 Hours Or Polyethylene glycol (MIRALAX) packet 17 gJump to med 17 g, Per NG tube, DAILY NEEDED, Starting on Fri11/08/24 at 2011, Until Fri11/11/24 at 1658, Constipation If No Bowel Movement in 48 Hours FOR RECORDS PERTAINING TO PATIENTS WHO ARE OR HAVE BEEN ENROLLED IN A CHEMICAL DEPENDENCY/SUBSTANCEABUSE PROGRAM, SOME INFORMATION MAY BE OMITTED. This clinical summary was aggregated from multiple sources. Caution should be exercised in using it in the provision of clinical care. This summary normalizes information from multiple sources, and as a consequence, information in this document may materially change the coding, format and clinical context of patient data. In addition, data may be omitted in some cases. CLINICAL DECISIONS SHOULD BE BASED ON THE PRIMARY CLINICAL RECORDS. [facility]. provides no warranty or guarantee of the accuracy or completeness of information in this document.
== END | disposition home or self-care (01) ==
LOC: SL 20:16
PROVIDERS: PCP Family Medicine; Referring Provider Nurse Practitioner Family; Visit Provider Nurse Practitioner Family
DX: G47.33 Obstructive sleep apnea (adult) (pediatric) (principal)
CPT/HCPCS: 95811

== ENCOUNTER → 2025-02-01 | Outpatient (CLI) | payer MEDICARE, OTHER, SELFPAY ==
[2025-02-01 13:14] VITALS: PULSE 102; PULSE 107; PULSE 67; PULSE 76; PULSE 86; PULSE 91; PULSE 96; PULSE 99; O2SAT 86; O2SAT 89; O2SAT 92; O2SAT 93; O2SAT 94; O2SAT 96; O2SAT 97
--- NOTE | 2025-02-01 13:15 | CPS ---
Patient started walk on room air, does not have O2 at home. At the 3rd minute, SpO2 86% room air. Placed patient on 2 lpm O2, SpO2 recovered 95%. Walked the remaining 3 minutes. Explained to the patient that she will need oxygen at home and that we want her SpO2 to be 89% or greater for adequate oxygenation. Patient stated that she does not have any trouble at home and wants to be left alone. Patient was cooperative and kind but seemed frustrated with the idea of having oxygen. I explained again the importance of the oxygen and to be prepared to discuss her concerns and/or objections with her ordering provider.
--- NOTE | 2025-02-03 10:26 | PCM.PSN.6M ---
PSN 6 Minute Walk Test 6 Minute Walk Test 6 Minute Walk Test: 6 Minute Walk Test PSN:6-Minute Walk Test Start: 02/01/25 13:14 Freq: Status: Active Protocol: RESP.6MINW Document 02/01/25 13:14 NIRU (Rec: 02/01/25 13:22 NIRU [id number]) 6 Minute Walk Test Date Performed 02/01/25 Time Performed 13:00 Height 5 ft 6 in Weight: 200 lb Weight in Pounds 200.[address]: Anu Hernandes Assistive device None used: Pre-test Oxygen Delivery Room Air Method Pulse Ox (%) 94 Pulse Rate (60-100 67 beats/min) Dyspnea Darrick Scale ( 0 0-10) Exertion Darrick Scale 6 (6-20) 1st minute Oxygen Flow Rate (L/ 2 min) (L/min) Oxygen Delivery Nasal Cannula Method Pulse Ox (%) 92 Pulse Rate (60-100 91 beats/min) 2nd minute Oxygen Delivery Room Air Method Pulse Ox (%) 89 Pulse Rate (60-100 102 H beats/min) 3rd minute Oxygen Delivery Room Air Method Pulse Ox (%) 86 Pulse Rate (60-100 107 H beats/min) 4th minute Oxygen Flow Rate (L/ 2 min) (L/min) Oxygen Delivery Nasal Cannula Method Pulse Ox (%) 96 Pulse Rate (60-100 86 beats/min) 5th minute Oxygen Flow Rate (L/ 2 min) (L/min) Oxygen Delivery Nasal Cannula Method Pulse Ox (%) 94 Pulse Rate (60-100 96 beats/min) 6th minute Oxygen Flow Rate (L/ 2 min) (L/min) Oxygen Delivery Nasal Cannula Method Pulse Ox (%) 93 Pulse Rate (60-100 99 beats/min) Dyspnea Darrick Scale ( 1 0-10) Exertion Darrick Scale 12 (6-20) Post-test Oxygen Flow Rate (L/ 2 min) (L/min) Oxygen Delivery Nasal Cannula Method Pulse Ox (%) 97 Pulse Rate (60-100 76 beats/min) Full Laps Walked 12 Partial Lap, Number 8 of Tiles Walked Total Distance 716 Walked (ft) 02/01/25 13:15 Cardiopulmonary Services by An Ramires Patient started walk on room air, does not have O2 at home. At the 3rd minute, SpO2 86% room air. Placed patient on 2 lpm O2, SpO2 recovered 95%. Walked the remaining 3 minutes. Explained to the patient that she will need oxygen at home and that we want her SpO2 to be 89% or greater for adequate oxygenation. Patient stated that she does not have any trouble at home and wants to be left alone. Patient was cooperative and kind but seemed frustrated with the idea of having oxygen. I explained again the importance of the oxygen and to be prepared to discuss her concerns and/or objections with her ordering provider. Initialized on 02/01/25 13:15 - END OF NOTE Interpretation Interpretation: The patient ambulated 716 feet over the course of 6 minutes beginning on room air without assistive devices. Pretesting oxygen saturation was noted to be 94% on room air. With ambulation, the shahida oxygen saturation was 86%, requiring the initiation of 2 L/min to maintain appropriate saturations. Recommendations Recommendations: 2 L/min of supplemental oxygen should be utilized with exertion.
== END | disposition home or self-care (01) ==
LOC: PSN 12:53
PROVIDERS: PCP Family Medicine; Referring Provider Nurse Practitioner Family; Visit Provider Nurse Practitioner Family
DX: R06.02 Shortness of breath (principal)
CPT/HCPCS: 94618

== ENCOUNTER → 2025-02-09 | Outpatient (CLI) | payer MEDICARE, OTHER, SELFPAY ==
--- NOTE | 2025-02-09 12:59 | CT_ITS ---
PROCEDURE: CHEST WITHOUT CONTRAST, 02/09/2025 REASON FOR EXAM: RESTRICTIVE LUNG DISEASE, SHORTNESS OF BREATH TECHNIQUE: CT chest was performed without IV contrast. Multiplanar reformats were generated. IV contrast: None. RADIATION DOSE SUMMARY: CTDlvol: 11.72 mGy DLP: 454.64 mGycm One or more dose reduction techniques were used (e.g., Automated exposure control, adjustment of the mA and/or kV according to patient size, use of iterative reconstruction technique). COMPARISON: 08/06/2021 FINDINGS: Mild/moderate motion limitation. Note that evaluation of the vasculature, kandice, and soft tissues is limited in the absence of IV contrast. Heart/pericardium: Cardiomegaly.. Mitral annular calcification. Trace to mild calcific coronary atherosclerosis. Trace pericardial fluid. Aorta: Trace to mild calcific atherosclerosis. Pulmonary arteries: Top-normal in caliber.. Lymph nodes: Paratracheal node, 16 mm short axis, previously obscured by artifact but roughly 11 mm. Subcarinal node, 21 mm short axis, previously 14 mm.. Additional enlarged mediastinal nodes present. Lungs/pleura: Lingular RIGHT middle lobe atelectasis/scarring is similar. Mild biapical pleural/parenchymal scarring. Mild interlobular septal thickening. Slightly airspace disease in the RIGHT lateral costophrenic sulcus of the RIGHT lower lobe favorable for atelectasis/scarring. Similar 4 x 3 mm LEFT lower lobe nodule (series 4 image 87). Airways: Mild central bronchial wall thickening is similar. Chest wall: Unremarkable. Upper abdomen: Suboptimally evaluated. Lobulated renal contours with multifocal cortical scarring, NVUB-ogfalxq-veth-RIGHT.. Small renal cyst on the RIGHT. Gallbladder not visualized and is presumed to be surgically absent however there are no visible surgical clips. CBD mildly dilated to 10 mm, similar to minimally enlarged from 9 mm previously. atherosclerosis. Operative changes of the bowel partially imaged and not well evaluated.. Musculoskeletal: Mild spondylosis. Mild scoliosis. Similar chronic deformity of RIGHT rib and scapula with possible scapular osteochondroma.. CT/Chest without Contrast IMPRESSION: 1. Slightly motion limited noncontrast exam. 2. Mediastinal lymphadenopathy. Given presumed history of colon cancer, this i s suspicious for possible loren metastasis. Recommend clinical/oncologic follow-up. Tissue sampling or PET/CT could be cons idered 3. Cardiomegaly and suspected mild interstitial edema. 4. Mild central bronchial wall thickening may be related to interstitial edema or perhaps mild bronchitis. 5. Slightly increased RIGHT lower lobe airspace disease favorable for atelectas is/scarring. 6. Additional description as above. Reading Location: [id number]
== END | disposition home or self-care (01) ==
LOC: CT 12:59
PROVIDERS: PCP Family Medicine; Referring Provider Nurse Practitioner Family; Visit Provider Nurse Practitioner Family
DX: J98.4 Other disorders of lung (principal)
CPT/HCPCS: 71250

== ENCOUNTER → 2025-02-22 | Outpatient (CLI) | payer MEDICARE, OTHER, SELFPAY | END | disposition home or self-care (01) | LOC: SL 13:39 | PROVIDERS: PCP Family Medicine; Visit Provider Nurse Practitioner Family | DX: Z00.00 Encounter for general adult medical examination without abnormal findings (principal) ==

== ENCOUNTER → 2025-02-25 | Outpatient (CLI) | payer MEDICARE, OTHER, SELFPAY ==
[2025-02-25 15:15] LABS: Hematocrit 45.2 % (37-47); Hemoglobin 13.8 g/dL (12.0-15.0); Immature Granulocytes Count 0.030 X10^3/uL (0.0-0.0); Mean Corp Hgb Conc 30.5 g/dL (32-36); Mean Corpuscular Volume 90.4 fL (81-99); Mean Platelet Vol. 10.9 fl (6.2-12.0); NRBC Flagged by Analyzer 0 % (0-5); Platelet Count 167 K/mm3 (150-450); RBC Distribution Width CV 16.1 % (11.6-14.6); RBC Distribution Width SD 52.7 fl (35.1-43.9); Red Blood Count 5.00 M/mm3 (4.2-5.4); White Blood Count 8.0 K/mm3 (4.4-11.0)
[2025-02-25 15:51] LABS: Creatinine, Urine (random) 98.70 mg/dL (28.00-217.00); Microalbumin,Random Urine 29.3 mg/L (<20 mg/L)
[2025-02-25 16:15] LABS: AST(SGOT) 24 U/L (<=31); Alanine Aminotransfer ALT/SGPT 7 U/L (<=34); Albumin, Serum 3.8 g/dL (3.4-4.8); Alkaline Phosphatase 117 U/L (35-104); Anion Gap 14 (5-15); BUN 18 mg/dL (4-19); BUN/Creat Ratio 20.6 RATIO (10-20); Calcium,Total 10.2 mg/dL (7.6-11.0); Carbon Dioxide 21.3 mmol/L (21.0-32.0); Chloride 103 mmol/L (98-108); Ferritin 179 ng/mL (22-378); Globulin 3.5 g/dL (2.2-4.2); Glucose 98 mg/dL (70-99); Potassium 4.4 mmol/L (3.3-5.1)
== END | disposition home or self-care (01) ==
LOC: MTLAB 12:34
PROVIDERS: PCP Family Medicine; Referring Provider Family Medicine; Visit Provider Family Medicine
DX: E11.69 Type 2 diabetes mellitus with other specified complication (principal); I48.91 Unspecified atrial fibrillation; Z79.01 Long term (current) use of anticoagulants
CPT/HCPCS: 36415; 80053; 82043; 82570; 82728; 83036; 85025

== ENCOUNTER → 2025-04-05 | Outpatient (CLI) | payer MEDICARE, OTHER, SELFPAY | END | disposition home or self-care (01) | LOC: SL 13:28 | PROVIDERS: PCP Family Medicine; Referring Provider Nurse Practitioner Family; Visit Provider Nurse Practitioner Family | DX: G47.33 Obstructive sleep apnea (adult) (pediatric) (principal) | CPT/HCPCS: 98960; G0463 ==

== ENCOUNTER → 2025-04-19 | Outpatient (CLI) | payer MEDICARE, OTHER, SELFPAY ==
[2025-04-19 12:46] LABS: Hematocrit 41.0 % (37-47); Hemoglobin 12.4 g/dL (12.0-15.0); Mean Corp Hgb Conc 30.2 g/dL (32-36); Mean Corpuscular Volume 88.4 fL (81-99); Mean Platelet Vol. 10.3 fl (6.2-12.0); Platelet Count 184 K/mm3 (150-450); RBC Distribution Width CV 16.9 % (11.6-14.6); RBC Distribution Width SD 53.1 fl (35.1-43.9); Red Blood Count 4.64 M/mm3 (4.2-5.4); White Blood Count 8.2 K/mm3 (4.4-11.0)
[2025-04-19 12:55] LABS: Prothrombin Time (Protime)PT. 17.8 SECONDS (11.7-14.9)
[2025-04-19 13:09] LABS: Creatinine, Urine (random) 12.60 mg/dL (28.00-217.00); Microalbumin,Random Urine < 12.0 mg/L (<20 mg/L)
[2025-04-19 13:54] LABS: AST(SGOT) 25 U/L (<=31); Alanine Aminotransfer ALT/SGPT 20 U/L (<=34); Albumin, Serum 4.1 g/dL (3.4-4.8); Alkaline Phosphatase 139 U/L (35-104); Anion Gap 13 (5-15); BUN 22 mg/dL (4-19); BUN/Creat Ratio 23.2 RATIO (10-20); Calcium,Total 9.7 mg/dL (7.6-11.0); Carbon Dioxide 22.6 mmol/L (21.0-32.0); Chloride 100 mmol/L (98-108); Globulin 3.5 g/dL (2.2-4.2); Glucose 114 mg/dL (70-99); Magnesium 2.1 mg/dL (1.5-2.2); Potassium 4.2 mmol/L (3.3-5.1)
== END | disposition home or self-care (01) ==
LOC: LAB 11:45
PROVIDERS: PCP Family Medicine; Referring Provider Internal Medicine Cardiovascular Disease; Visit Provider Internal Medicine Cardiovascular Disease
DX: E11.69 Type 2 diabetes mellitus with other specified complication (principal); I48.91 Unspecified atrial fibrillation; E03.9 Hypothyroidism, unspecified; E83.42 Hypomagnesemia
CPT/HCPCS: 36415; 80053; 82043; 82570; 83036; 83735; 84443; 85027; 85610

== ENCOUNTER 2025-04-20 18:00 | Outpatient (RCR) | payer MEDICARE, OTHER, SELFPAY ==
--- NOTE | 2024-11-30 11:47 | HP.SP.EV_ITS ---
Visit History Visit Info Date of Eval: 11/29/24 Visit: 1 Optomechanical Technician: AG History Attending Doctor: Referring Doctor: Reason for Referral: STROKE,EXPRESSIVE APHASIA/RX HERE Medical Diagnosis: CVA Date of Onset of Diagnosis: 11/08/24 Previous speech therapy: Yes Results: In Rehab unit, Daily therapy with progress reported and began trialing AAC program. Other Relevant Medical History/Diagnoses/Surgery: Patient is a 74 YO F with a PMH of diabetes mellitus type 2, dyslipidemia, essential hypertension, hypothyroidism, atrial fibrillation, chronic anticoagulation, GERD, colon cancer with history of right hemicolectomy in 2021, osteoarthritis, tobacco dependence in remission, depression, prior TIAs/CVAs, COPD, peripheral vascular disease, mitral stenosis, PFO and chronic combined systolic and diastolic congestive heart failure who presented to the emergency department at [facility] on 11/08/2024 as a stroke alert. Presenting complaints included facial droop on the right, slurred speech and weakness of the right arm. Patient was unable to provide history due to dysarthria/aphasia. Initial NIH was 8 in the emergency department. Noncontrast CT brain showed no intracerebral bleeding. CTA of the head/neck showed focal high-grade stenosis/occlusion of the M1 segment of the left MCA with distal reconstitution. Teleneurology was consulted and the patient was transferred to [facility] for possible thrombectomy. NIHSS score was 6 at presentation to [facility]. At [facility] she was deemed not to be a candidate for thrombectomy due to no clear large vessel occlusion. She was loaded with Plavix 300 mg and also with aspirin 325 mg. Aspirin 81 mg and Plavix 75 mg were ordered daily thereafter. The cause of the stroke was deemed to be atrial fibrillation with a subtherapeutic INR. She was transferred to the acute inpatient unit at [facility] on 11/11/2024 for 3 hours of therapy daily to restore function/independence at or near her level prior to the most recent stroke. She was discharged home on 11/26/24 with 24 hour supervision recommended upon discharge and a restriction of no driving. Medications related to this diagnosis: colchicine 0.6 mg capsule 0.6 mg PO BID PRN gout flare 09/30/24 acetaminophen 325 mg tablet 650 mg (2 x 325 mg) PO TID PRN fever/pain #1 TAB 11/25/24 albuterol sulfate 90 mcg/actuation aerosol inhaler 2 puff inhalation Q4H PRN Wheezing #1 g 11/25/24 apixaban 5 mg tablet (Eliquis) 5 mg PO BID blood thinner #60 tabs 11/25/24 atorvastatin 40 mg tablet 40 mg PO QHS cholesterol #30 tabs 11/25/24 dapagliflozin propanediol 10 mg tablet (Farxiga) 10 mg PO DAILY dm #30 tabs 11/25/24 fluticasone fur. 200 mcg-umeclid 62.5 mcg-vilant 25 mcg inhalat.powder (Trelegy Ellipta) 1 inh inhalation DAILY sob #1 inh 11/25/24 fluticasone propionate 50 mcg/actuation nasal spray,suspension 2 spray intranasal DAILY congestion #1 inh 11/25/24 levothyroxine 88 mcg tablet (Euthyrox) 88 mcg PO DAILY THYROID #30 tabs 11/25/24 Smoking Status: Former smoker Diagnosis Diagnosis: Severe receptive/expressive aphasia Pain Is pain an issue with your current prescribed condition?: No Personal Preferred language: [place] Patient Allergies Allergies Allergies: Allergies codeine Allergy (Severe, Verified 09/30/24 15:16) anaphylaxis Objective Cog/Ling/Com Test Administered Xxpfdknsk-Vpvmlgrheq-Smwxboycdgriz Assessment Administered: Yes Dvhfwbbns-Lpqemmiynr-Hnsctdwiowoaw Assessment: Cognitive – Linguistic skills were evaluated using patient/family interview, skilled observation and informal evaluation through tasks completed by the patient. Orientation Orientation: Person, Place, Birthdate and Medical Diagnosis Identification Body parts/objects: Severe Answer Yes/No Questions Simple: Severe Follows Commands 1 Step: Moderate 2 Step: Severe Comments Comments: She was able to give her name. Patient listed her addressed when asked her birthday. She was able to then state 1[birth year] for 1949. After three attempts she then self corrected her birthday to 1950. When asked location she was able to answer with phonemic cue ( "w"). She was not able to give day or date. She was unable to follow directions for body parts ( touch your nose) and even when listed only body part ( hands?) she pointed to different body parts ( pointed to her elbow). She was able to clap as a 1 step direction but no others were followed. Yes/no questions were not accurate and often she gave unrelated information. Automatic Sequences Automatic Sequences: WFL Naming Responsive naming: Severe Naming in categories: Severe [place]: Severe Conversational Tasks Conversational Tasks: Severe Comments: During conversation 95% of sentences had errors. Most communication needed clarification by listener or interpretation by listener due to vague speech or word errors. Example - "I'd take pill by glass, on one side I'd point it out." She also perseverated on froze or frozen as word substitutions with no attempt to correct. Labeling a pen: she listed rosemary rosemary, and 4 other non related words. She was unable to give things she would eat (categorization). Comments Comments: Inpatient rehab started to trial an AAC device which family is in support of patient using. Reading Comprehension Words: Severe Oral Reading Words: Severe Comments: Stated poodle for puppy, ducks for bunny. She was able to read "burst" after 3 attempts. She did not follow the direction to point to a word verbally given out of a list of printed words in front of her. Executive Function Comments Comments: Family is completing banking and medication tasks. Patient is currently on restricted on driving and has 24 hour supervision. Reference: Neuro-QoL instrument Radiation Oncology Patient Plan Plan Plan: Speech therapy is warranted for severe receptive/expressive aphasia following CVA. Intensive therapy is recommended due to recent CVA and severity of her deficits. Recommendations Treatment Warranted: Yes Treatment Warranted: Receptive/ Expressive Language Progress Prognosis: Good Frequency Frequency: 2x /Week Duration: 3 Months Visits in this POC: 24 Patient/Family Goal Patient/Family Goal: Patient was unable to communicate a goal. Daughter's goal is for communication in some form for wants and needs. Goals that are Established Determination:: Goals will be added/modified as deemed necessary and appropriate. Therapy will be discontinued when results of re-evaluation indicate therapy is no longer needed or lack of progress has been documented. Goal #1-5 Goal #1: Patient will answer yes/no questions regarding self/environment on 4/5 trials on 2/3 consecutive sessions. Goal #2: Patient will complete 1-2 step directions containing 1-4 elements ( example action, object, location) on 4/5 trials on 2/3 consecutive sessions. Goal #3: Patient will complete word finding tasks including but not limited to sentence completion, confrontational naming, convergent/divergent categorization, etc. with accuracy of 80% on 2/3 consecutive sessions. Goal #4: Patient will communicate wants and needs via gesturing/speaking/ pictures on 4/5 trials on 2/3 consecutive sessions. Education Patient has Indicated that the Following Identified Educational Needs: Cognitively Impaired Patient Instruction Patient Education: Diagnosis, Treatment Plan and Goals Person Taught: Patient and Family Response to teaching: Verbalize Understanding and Has Prior Knowledge
--- NOTE | 2025-02-18 10:31 | HP.SPREEV_ITS ---
Visit History Visit Info Date of Eval: 11/29/24 Today is Visit #: 1 Insurance Date Limit: 03/01/25 Plaster Helper: AG History Attending Doctor: Referring Doctor: Reason for Referral: STROKE,EXPRESSIVE APHASIA/RX HERE Medical Diagnosis: CVA Date of Onset of Diagnosis: 11/08/24 Previous speech therapy: Yes Results: In Rehab unit, Daily therapy with progress reported and began trialing AAC program. Other Relevant Medical History/Diagnoses/Surgery: Patient is a 74 YO F with a PMH of diabetes mellitus type 2, dyslipidemia, essential hypertension, hypothyroidism, atrial fibrillation, chronic anticoagulation, GERD, colon cancer with history of right hemicolectomy in 2021, osteoarthritis, tobacco dependence in remission, depression, prior TIAs/CVAs, COPD, peripheral vascular disease, mitral stenosis, PFO and chronic combined systolic and diastolic congestive heart failure who presented to the emergency department at [facility] on 11/08/2024 as a stroke alert. Presenting complaints included facial droop on the right, slurred speech and weakness of the right arm. Patient was unable to provide history due to dysarthria/aphasia. Initial NIH was 8 in the emergency department. Noncontrast CT brain showed no intracerebral bleeding. CTA of the head/neck showed focal high-grade stenosis/occlusion of the M1 segment of the left MCA with distal reconstitution. Teleneurology was consulted and the pat ient was transferred to [facility] for possible thrombectomy. NIHSS score was 6 at presentation to [facility]. At [facility] she was deemed not to be a candidate for thrombectomy due to no clear large vessel occlusion. She was loaded with Plavix 300 mg and also with aspirin 325 mg. Aspirin 81 mg and Plavix 75 mg were ordered daily thereafter. The cause of the stroke was deemed to be atrial fibrillation with a subtherapeutic INR. She was transferred to the acute inpatient unit at [facility] on 11/11/2024 for 3 hours of therapy daily to restore function/independence at or near her level prior to the most recent stroke. She was discharged home on 11/26/24 with 24 hour supervision recommended upon discharge and a restriction of no driving. Medications related to this diagnosis: colchicine 0.6 mg capsule 0.6 mg PO BID PRN gout flare 09/30/24 acetaminophen 325 mg tablet 650 mg (2 x 325 mg) PO TID PRN fever/pain #1 TAB 11/25/24 albuterol sulfate 90 mcg/actuation aerosol inhaler 2 puff inhalation Q4H PRN Wheezing #1 g 11/25/24 apixaban 5 mg tablet (Eliquis) 5 mg PO BID blood thinner #60 tabs 11/25/24 atorvastatin 40 mg tablet 40 mg PO QHS cholesterol #30 tabs 11/25/24 dapagliflozin propanediol 10 mg tablet (Farxiga) 10 mg PO DAILY dm #30 tabs 11/25/24 fluticasone fur. 200 mcg-umeclid 62.5 mcg-vilant 25 mcg inhalat.powder (Trelegy Ellipta) 1 inh inhalation DAILY sob #1 inh 11/25/24 fluticasone propionate 50 mcg/actuation nasal spray,suspension 2 spray intranasal DAILY congestion #1 inh 11/25/24 levothyroxine 88 mcg tablet (Euthyrox) 88 mcg PO DAILY THYROID #30 tabs 11/25/24 Smoking Status: Former smoker Diagnosis Diagnosis: STROKE,EXPRESSIVE/RECEPTIVE APHASIA Pain Is pain an issue with your current prescribed condition?: No Personal Preferred language: Vietnamese Patient Allergies Allergies Allergies: Allergies codeine Allergy (Severe, Verified 12/24/24 08:24) anaphylaxis Previous/Current Goals Goals 1-5 Previous Goal #1: Patient will answer yes/no questions regarding self/enviro nment on 4/5 trials on 2/3 consecutive sessions. Goal 1 Status: GOAL CONTINUES: Initially: Short questions 44%, personal questions 62% Currently: Personal: 78%. Intermittent repetition needed but patient does not ask for it. Weather related: 100% Previous Goal #2: Patient will complete 1-2 step directions containing 1-4 elements ( example action, object, location) on 4/5 trials on 2/3 consecutive sessions. Goal 2 Status: GOAL CONTINUES Initially: 1 step with single words ( actions like clap) 100% 1 step with two components ( touch your nose) 80% with half needing repetition. Two step with actions and body parts ( Touch your nose then smile) was 50%. Currently: 85% with one step with actions such as stomp your feet. Accuracy decreases when adding nouns. Previous Goal #3: Patient will complete word finding tasks including but not limited to sentence completion, confrontational naming, convergent/divergent categorization, etc. with accuracy of 80% on 2/3 consecutive sessions. Goal 3 Status: GOAL CONTINUES: Confrontational namin% independently and with Phonemic cues she increased to 90% labeling. Patient was able to put 16 pictures into 4 groups for categorization. She was able to label 1 with no cues. Phonemic cues helped her for another 4. For Convergent naming (giving category from members) 1/4 with maximal cues. Currently she was able to label 40% of pictures independently with extra time for confrontational naming. Previous Goal #4: Patient will communicate wants and needs via gesturing/speaking/ pictures on 4/5 trials on 2/3 consecutive sessions. Goal 4 Status: GOAL COTNINUES: She was able to tell a story for her youngest grand child about her behavior with approximately 75% of sentences giving enough details to get the main idea of the story only but not able to give small details. She was not able to give the child's name verbally but was able to point out her mother's name on a list then when therapist said the name of child she said Yes! She intermittently has errors in sounds such as lamp for correa and nurse for nerve. Communication is still dependent very much on the listener. Sentences are often incomplete with a high level of errors. She has trialed a [employer] AAC device with patient able to make choices on device with maximal cues. AAC device has been recommended and patient/family is highly wanting the device. Currently awaiting insurance approval for device. Patient is exhibiting significant frustration at communication difficulties. Conversational speech remains severely impaired as she often lacks nouns, proper nouns, and exhibits paraphasias that she appears to be unaware of over half the time. The listener continues to have to ask questions to verify topic, location, person, etc. Objective Cog/Ling/Com Test Administered Ssdeothce-Ylbyrtuhiy-Dumhlcdujuprm Assessment Administered: Yes Sdhbtfbeq-Trcpsvmfgb-Oekrbopwkzgei Assessment: Cognitive – Linguistic skills were evaluated using patient/family interview, skilled observation and informal evaluation through tasks completed by the patient. Orientation Orientation: Person and Birthdate Identification Body parts/objects: Moderate Colors: Moderate Letters: Mild Numbers: Mild Answer Yes/No Questions Simple: Mild Complex: Severe Follows Commands 1 Step: Mild and Moderate 2 Step: Severe Complex: Severe Comments Comments: She was able to give her name. Patient listed her addressed when asked her birthday. She was able to then state [birth year] for 1949. After three attempts she then self corrected her birthday to 1950. When asked location she was able to answer with phonemic cue ( "w"). She was not able to give day or date. She was unable to follow directions for body parts ( touch your nose) and even when listed only body part ( hands?) she pointed to different body parts ( pointed to her elbow). She was able to clap as a 1 step direction but no others were followed. Yes/no questions were not accurate and often she gave unrelated information. Automatic Sequences Automatic Sequences: Severe Repetition Words: WFL Sentences: Moderate Naming Responsive naming: Severe Naming in categories: Severe Conversational Tasks Conversational Tasks: Severe Comments: During conversation 95% of sentences had errors. Most communication needed clarification by listener or interpretation by listener due to vague speech or word errors. Example - "I'd take pill by glass, on one side I'd point it out." She also perseverated on froze or frozen as word substitutions with no attempt to correct. Labeling a pen: she listed rosemary rosemary, and 4 other non related words. She was unable to give things she would eat (categorization). Comments Comments: For automatic sequences: when asked to give days of the week she gave months from April to March ( in correct order). With maximal cues she was able to give friday through friday correctly. She counted 2-21 but missed 17. Reading Picture-Word Matching Picture-Word matching: Moderate Reading Comprehension Sentences: Severe Oral Reading Words: Severe Comments: Chair was silver, cowlitz was shegle, hammock was ham, purple was pink, fifteen was foyer. Writing Comments: When asked to write her name she wrote her address. She had one error of ot for lot in address. In copying a sentence ( The quick brown navarro jumps over the lazy dog.) she had multiple errors and did not demonstrate awareness of errors or attempts to correct them. Her sentence was "The quick broun Fop tiysls over the lazy dog." Executive Function Comments Comments: Family is completing banking and medication tasks. Patient is currently on restricted on driving and has 24 hour supervision. Cognitive Linguistic Comments Comments Picture describing: -: Elizabeth was asked to describe a picture. Her sentences were often incomplete with vague statements. "Somebody's get up on a step, oh its falling, he's been up there getting uh --- candy an sandwich or whatever ( the boy is getting into a cookie jar.). She was going to fall off temperature. Afraid maybe he fell down wrong and hit the floor, mom siting back, washing dishes and she's stepping on water. She's about to call conversation. Reference: Neuro-QoL instrument HDQLIFE - Speech Difficulties In the past 7 days. It was difficult for other people to understand me.: Always Is was difficult to speak clearly?: Often In the past 7 days.. How often did you limit your social activites because you had difficulty speaking?: Often In the past 7 days... I had trouble speaking.: Very much I was frustrated by my speech difficulties.: Very much How much DIFFICULTY do you have... ...saying what you want to say?: A lot of difficulty Score HDQLIFE Speech Difficulties Raw Score: 27 HDQLIFE Speech Difficulties T - Score: 66 Radiation Oncology Patient Plan Plan Plan: Speech therapy is warranted for severe global receptive/expressive aphasia following CVA. Intensive therapy is recommended due to recent CVA and severity of her deficits. Recommendations Treatment Warranted: Yes Treatment Warranted: Receptive/ Expressive Language Progress Prognosis: Good Frequency Frequency: 2x /Week Duration: 3 Months Visits in this POC: 24 Patient/Family Goal Patient/Family Goal: Patient was unable to communicate a goal. Daughter's goal is for communication in some form for wants and needs. Goals that are Established Determination:: Goals will be added/modified as deemed necessary and appropriate. Therapy will be discontinued when results of re-evaluation indicate therapy is no longer needed or lack of progress has been documented. Goal #1-5 Goal #1: Patient will answer yes/no questions regarding self/environment on 4/5 trials on 2/3 consecutive sessions. Goal #2: Patient will complete 1-2 step directions containing 1-4 elements ( example action, object, location) on 4/5 trials on 2/3 consecutive sessions. Goal #3: Patient will complete word finding tasks including but not limited to sentence completion, confrontational naming, convergent/divergent categorization, etc. with accuracy of 80% on 2/3 consecutive sessions. Goal #4: Patient will communicate wants and needs via gesturing/speaking/ pictures/AAC on 4/5 trials on 2/3 consecutive sessions. Education Patient has Indicated that the Following Identified Educational Needs: Cognitively Impaired Patient Instruction Patient Education: Treatment Plan and Goals
--- NOTE | 2025-04-22 09:43 | HP.SPREEV_ITS ---
Visit History Visit Info Date of Eval: 11/29/24 Today is Visit #: 1 Insurance Date Limit: 04/22/25 [employer]: AG History Attending Doctor: Referring Doctor: Reason for Referral: STROKE,EXPRESSIVE APHASIA/RX HERE Medical Diagnosis: CVA Date of Onset of Diagnosis: 11/08/24 Previous speech therapy: Yes Results: In Rehab unit, Daily therapy with progress reported and began trialing AAC program. Other Relevant Medical History/Diagnoses/Surgery: Patient is a 74 YO F with a PMH of diabetes mellitus type 2, dyslipidemia, essential hypertension, hypothyroidism, atrial fibrillation, chronic anticoagulation, GERD, colon cancer with history of right hemicolectomy in 2021, osteoarthritis, tobacco dependence in remission, depression, prior TIAs/CVAs, COPD, peripheral vascular disease, mitral stenosis, PFO and chronic combined systolic and diastolic congestive heart failure who presented to the emergency department at [facility] on 11/08/2024 as a stroke alert. Presenting complaints included facial droop on the right, slurred speech and weakness of the right arm. Patient was unable to provide history due to dysarthria/aphasia. Initial NIH was 8 in the emergency department. Noncontrast CT brain showed no intracerebral bleeding. CTA of the head/neck showed focal high-grade stenosis/occlusion of the M1 segment of the left MCA with distal reconstitution. Teleneurology was consulted and the pat ient was transferred to [facility] for possible thrombectomy. NIHSS score was 6 at presentation to [facility]. At [facility] she was deemed not to be a candidate for thrombectomy due to no clear large vessel occlusion. She was loaded with Plavix 300 mg and also with aspirin 325 mg. Aspirin 81 mg and Plavix 75 mg were ordered daily thereafter. The cause of the stroke was deemed to be atrial fibrillation with a subtherapeutic INR. She was transferred to the acute inpatient unit at [facility] on 11/11/2024 for 3 hours of therapy daily to restore function/independence at or near her level prior to the most recent stroke. She was discharged home on 11/26/24 with 24 hour supervision recommended upon discharge and a restriction of no driving. Medications related to this diagnosis: colchicine 0.6 mg capsule 0.6 mg PO BID PRN gout flare 09/30/24 acetaminophen 325 mg tablet 650 mg (2 x 325 mg) PO TID PRN fever/pain #1 TAB 11/25/24 albuterol sulfate 90 mcg/actuation aerosol inhaler 2 puff inhalation Q4H PRN Wheezing #1 g 11/25/24 apixaban 5 mg tablet (Eliquis) 5 mg PO BID blood thinner #60 tabs 11/25/24 atorvastatin 40 mg tablet 40 mg PO QHS cholesterol #30 tabs 11/25/24 dapagliflozin propanediol 10 mg tablet (Farxiga) 10 mg PO DAILY dm #30 tabs 11/25/24 fluticasone fur. 200 mcg-umeclid 62.5 mcg-vilant 25 mcg inhalat.powder (Trelegy Ellipta) 1 inh inhalation DAILY sob #1 inh 11/25/24 fluticasone propionate 50 mcg/actuation nasal spray,suspension 2 spray intranasal DAILY congestion #1 inh 11/25/24 levothyroxine 88 mcg tablet (Euthyrox) 88 mcg PO DAILY THYROID #30 tabs 11/25/24 Smoking Status: Former smoker Diagnosis Diagnosis: STROKE, EXPRESSIVE APHASIA Pain Is pain an issue with your current prescribed condition?: No Personal Preferred language: Dominican Patient Allergies Allergies Allergies: Allergies codeine Allergy (Severe, Verified 04/21/25 15:09) anaphylaxis Previous/Current Goals Goals 1-5 Previous Goal #1: Patient will answer yes/no questions regarding self/environment on 4/5 trials on 2/3 consecutive sessions. Goal 1 Status: Goal continues: Previously: Personal: 78%. Intermittent repetition needed but patient does not ask for it. Weather related: 100% Currently: Questions regarding her upcoming vacation 90%, Questions about locations (ex. are you driving through [place] to go to [place]?): 80%, Personal questions: 66% and self corrected after repetition of question to 80%. Questions regarding recent vacation: 85% Previous Goal #2: Patient will complete 1-2 step directions containing 1-4 elements ( example action, object, location) on 4/5 trials on 2/3 consecutive sessions. Goal 2 Status: Goal Continues: Previously: 85% with one step with actions such as stomp your feet. Accuracy decreases when adding nouns. Currently: Directions with up to 4 components: 65% independently, increasing to 75% with repetition. Previous Goal #3: Patient will complete word finding tasks including but not limited to sentence completion, confrontational naming, convergent/divergent categorization, etc. with accuracy of 80% on 2/3 consecutive sessions. Goal 3 Status: Goal continues: Previous: she was able to label 40% of pictures independently with extra time for confrontational naming. Currently: convergent namin% with increased time and moderate cues. She gave general categories ( foods) rather than specific ones ( fruit) until cued. Divergent naming: Things she packed-3 Family members going on vacation – 4 Increased time is needed for all tasks. Previous Goal #4: Patient will communicate wants and needs via gesturing/speaking/ pictures/AAC on 4/5 trials on 2/3 consecutive sessions. Goal 4 Status: Patient received [employer] device and usually brings it to therapy. She continues to need maximal cues to find up to 5 personal choices ( birthday, address,etc) and needs maximal cues to navigate to all other choices such as foods, family members and personal items. Patient continues to exhibit errors regarding family member names and familial relationships. She also continues to use semantic paraphasias such as saying freezer instead of gear technician. Often the words of "freezer" and "foil" are used but overall the amount of these words substituted have decreased. Communication continues to be moderately impaired as patient continues to have breakdowns in communication often she gets frustrated and upset at her communication. Patient will cry or exhibit anger intermittently during breakdowns. Goal modified. Objective Cog/Ling/Com Test Administered Ipuhnwuzh-Rwytshwqxs-Zmucshstatldp Assessment Administered: Yes Semuwykmz-Mulpfceskg-Ihkyyiuaeayin Assessment: Cognitive – Linguistic skills were evaluated using patient/family interview, skilled observation and informal evaluation through tasks completed by the patient. Orientation Orientation: Person and Birthdate Identification Body parts/objects: Moderate Colors: Moderate Letters: Mild Numbers: Mild Answer Yes/No Questions Simple: Mild Complex: Severe Follows Commands 1 Step: Mild and Moderate 2 Step: Severe Complex: Severe Comments Comments: She was able to give her name. Patient listed her addressed when asked her birthday. She was able to then state [birth year] for 1949. After three attempts she then self corrected her birthday to 1950. When asked location she was able to answer with phonemic cue ( "w"). She was not able to give day or date. She was unable to follow directions for body parts ( touch your nose) and even when listed only body part ( hands?) she pointed to diffe rent body parts ( pointed to her elbow). She was able to clap as a 1 step direction but no others were followed. Yes/no questions were not accurate and often she gave unrelated information. Automatic Sequences Automatic Sequences: Severe Repetition Words: WFL Sentences: Moderate Naming Responsive naming: Severe Naming in categories: Severe Conversational Tasks Conversational Tasks: Severe Comments: During conversation 95% of sentences had errors. Most communication needed clarification by listener or interpretation by listener due to vague speech or word errors. Example - "I'd take pill by glass, on one side I'd point it out." She also perseverated on froze or frozen as word substitutions with no attempt to correct. Labeling a pen: she listed rosemary rosemary, and 4 other non related words. She was unable to give things she would eat (categorization). Comments Comments: For automatic sequences: when asked to give days of the week she gave months from April to March ( in correct order). With maximal cues she was able to give friday through friday correctly. She counted 2-21 but missed 17. Reading Picture-Word Matching Picture-Word matching: Moderate Reading Comprehension Sentences: Severe Oral Reading Words: Severe Comments: Chair was silver, [place] was shegle, hammock was ham, purple was pink, fifteen was foyer. Writing Comments: When asked to write her name she wrote her address. She had one error of ot for lot in address. In copying a sentence ( The quick brown navarro jumps over the lazy dog.) she had multiple errors and did not demonstrate awareness of errors or attempts to correct them. Her sentence was "The quick broun Fop tiysls over the lazy dog." Executive Function Comments Comments: Family is completing banking and medication tasks. Patient is currently on restricted on driving and has 24 hour supervision. Cognitive Linguistic Comments Comments Picture describing: -: Elizabeth was asked to describe a picture. Her sentences were often incomplete with vague statements. "Somebody's get up on a step, oh its falling, he's been up there getting uh --- candy an sandwich or whatever ( the boy is getting into a cookie jar.). She was going to fall off temperature. Afraid maybe he fell down wrong and hit the floor, mom siting back, washing dishes and she's stepping on water. She's about to call conversation. Reference: Neuro-QoL instrument HDQLIFE - Speech Difficulties In the past 7 days. It was difficult for other people to understand me.: Always Is was difficult to speak clearly?: Often In the past 7 days.. How often did you limit your social activites because you had difficulty speaking?: Often In the past 7 days... I had trouble speaking.: Very much I was frustrated by my speech difficulties.: Very much How much DIFFICULTY do you have... ...saying what you want to say?: A lot of difficulty Score HDQLIFE Speech Difficulties Raw Score: 27 HDQLIFE Speech Difficulties T - Score: 66 Radiation Oncology Patient Plan Plan Plan: Speech therapy is warranted for Moderate receptive/expressive aphasia following CVA. Therapy is recommended to continue as patient is demonstrating progress towards her goals and she received a communication device which needs support for family to learn to edit and patient to functionally use. Recommendations Treatment Warranted: Yes Treatment Warranted: Receptive/ Expressive Language and Other: Comment: AAC Progress Prognosis: Good Frequency Frequency: 1x/Week Duration: 3 Months Visits in this POC: 12 Patient/Family Goal Patient/Family Goal: Patient was unable to communicate a goal. Daughter's goal is for communication in some form for wants and needs. Goals that are Established Determination:: Goals will be added/modified as deemed necessary and appropriate. Therapy will be discontinued when results of re-evaluation indicate therapy is no longer needed or lack of progress has been documented. Goal #1-5 Goal #1: Patient will answer yes/no questions regarding self/environment/general questions with 90% on 2/3 consecutive sessions. Goal #2: Patient will complete 2 step directions containing 2-4 elements ( examples: action, object, location) on 4/5 trials on 2/3 consecutive sessions. Goal #3: Patient will complete word finding tasks including but not limited to sentence completion, confrontational naming, convergent/divergent categorization, etc. with accuracy of 80% on 2/3 consecutive sessions to increase functional communication at home and in the community. Goal #4: Patient will demonstrate the ability to make a choice/ give information/ answer a question using her device on 3/5 trials with maximal cues on 2/3 consecutive sessions. Goal #5: Family education regarding [employer] device for editing/modifying/modeling for functional use of device outside of therapy. Education Patient has Indicated that the Following Identified Educational Needs: Cognitively Impaired Patient Instruction Patient Education: Treatment Plan and Goals
--- NOTE | 2025-06-06 09:50 | HP.SP.DC ---
ST Discharge Summary Discharged: Discharge: Elizabeth Henley is discharged from speech therapy at [facility] as of 06/06/25 due to a change in status from a recent hospital admit that recommended home health services. She was evaluated on 11/29/24 with a diagnosis of CVA and aphasia. She completed 22 visits twice weekly initially then reduced to once weekly. Her goals focused on AAC as well as receptive/expressive language skills. Patient’s last visit was on 04/20/25 as further visits were then requested from insurance. Patient then went out of town during the authorization dates. Please see daily notes and reports for complete details of last known abilities. Thank you for allowing me to participate in the care of this patient.
== END 2025-04-20 19:00 | disposition home or self-care (01) ==
LOC: SP 18:00
PROVIDERS: PCP Family Medicine; Referring Provider Internal Medicine; Visit Provider Internal Medicine
DX: Z86.73 Personal history of transient ischemic attack (TIA), and cerebral infarction without residual deficits (principal); R47.01 Aphasia
CPT/HCPCS: 92507; 92523

== ENCOUNTER → 2025-04-26 | Outpatient (CLI) | payer MEDICARE, OTHER, SELFPAY | END | disposition home or self-care (01) | LOC: MTLAB 11:45 | PROVIDERS: PCP Family Medicine; Referring Provider Family Medicine; Visit Provider Family Medicine | DX: E03.9 Hypothyroidism, unspecified (principal) | CPT/HCPCS: 36415; 84439 ==

== ENCOUNTER → 2025-05-11 | Outpatient (CLI) | payer MEDICARE, OTHER, SELFPAY ==
--- NOTE | 2025-05-12 10:11 | STRESSREP ---
Stress Test Report Date: 05/11/2025 Procedure: Pharmacologic stress nuclear imaging study Indications: Atrial fibrillation Consent: Per the patient Procedure: The patient underwent pharmacologic (Regadenoson 0.4mg ) evaluation with a peak heart rate of 98 beats per minute (66%predicted maximal heart rate) and a peak blood pressure of 130/72 mmHg. The baseline ECG demonstrated atrial fibrillation. The peak pharmacologic ECG failed to show any ischemic changes. Baseline atrial fibrillation. There was no complaint of chest discomfort during pharmacologic infusion or recovery. The patient was injected with 13.1 millicuries of technetium 99m Cardiolite and subsequently rest SPECT Cardiolite nuclear imaging was obtained in the horizontal long, vertical long, and short axis views. The patient underwent pharmacologic (Regadenoson) evaluation. The patient was injected with 40.3 millicuries of technetium 99m Cardiolite and subsequently stress SPECT Cardiolite nuclear imaging was obtained in the horizontal long, vertical long, and short axis views. A gated Cardiolite study at peak stress was obtained. The examination was stopped secondary to completion of protocol. Rest and stress SPECT Cardiolite nuclear imaging status post realignment, normalization, and attenuation correction demonstrate reduced perfusion of the inferior wall both at rest as well as post pharmacological stress. With normal wall motion, consider attenuation artifact. No reversible ischemia. There is end systolic thickening and brightening. The gated Cardiolite study demonstrates myocardial thickening and inward wall motion. The reported LVEF is 72%. Impression: 1. Pharmacologic (Regadenoson) evaluation 2. Peak pharmacologic ECG with no ischemic changes. 3. Baseline atrial fibrillation. 5. Rest and stress SPECT Cardiolite nuclear imaging demonstrate relative uniform tracer uptake and myocardial perfusion appearing within normal limits. 6. The gated Cardiolite study reports an LVEF of 72%. This note was generated with [employer] software. It may contain incorrect words, spelling, and punctuation that were not noted in checking the note before signing.
== END | disposition home or self-care (01) ==
LOC: CVS 06:15
PROVIDERS: PCP Family Medicine; Referring Provider Internal Medicine Cardiovascular Disease; Visit Provider Internal Medicine Cardiovascular Disease
DX: R00.1 Bradycardia, unspecified (principal); I27.20 Pulmonary hypertension, unspecified; I50.30 Unspecified diastolic (congestive) heart failure; R06.02 Shortness of breath; Z86.73 Personal history of transient ischemic attack (TIA), and cerebral infarction without residual deficits
CPT/HCPCS: 78452; 93017; A9500; A4216; J2785

== ENCOUNTER 2025-05-24 15:48 | Inpatient (IN) | payer MEDICARE, OTHER, SELFPAY ==
[2025-05-24] VITALS (29 sets, daily range): BP systolic 67–159; BP diastolic 46–131; PULSE 83–143; RESP 14–24; TEMP 37.3–39; O2SAT 73–100; BMI 34.5; BMI 36.1
--- NOTE | 2025-05-24 15:58 | RAD_ITS ---
PROCEDURE: CHEST 1 VIEW (PORTABLE) 05/24/2025 REASON FOR EXAM: INTUBATION TECHNIQUE: Frontal view of the chest. COMPARISON: 10/16/2022 FINDINGS: Hardware: Endotracheal tube tip projects about 4.5 cm above the alberto. Enteric tube courses below the left hemidiaphragm, tip and side port excluded from view. Heart: Heart size is mildly enlarged. Lungs: Dense consolidation in the right mid upper lung. Diffuse pulmonary vascular congestion. No definite pneumothorax or sizable pleural effusion. Bones: Degenerative changes are identified within the thoracic spine. RAD/Chest 1 View (Portable) IMPRESSION: 1. Endotracheal and enteric tubes likely in appropriate positions. 2. Dense right mid upper lung consolidation. 3. Mild cardiomegaly and mild pulmonary vascular congestion. Reading [facility]
--- NOTE | 2025-05-24 16:00 | EKG12_ITS ---
Test Reason : UNRESPONSIVE Blood Pressure : */* mmHG Vent. Rate : 144 BPM Atrial Rate : * BPM P-R Int : * ms QRS Dur : 90 ms QT Int : 274 ms P-R-T Axes : * 112 270 degrees QTcB Int : 424 ms Critical Test Result: High HR Atrial fibrillation with rapid ventricular response with premature ventricular or aberrantly conducted complexes Right axis deviation NSST & T WAVE ABNORMALITY Abnormal ECG Confirmed by Bakari Miller ([id number]), order editor RENNY VALERIO ([id number]) on 05/25/2025 1:46:52 PM Referred By: Confirmed By: Bakari Miller
--- NOTE | 2025-05-24 16:01 | CT_ITS ---
PROCEDURE: CT BRAIN/HEAD WITHOUT CONTRAST 05/24/2025 REASON FOR EXAM: AMS TECHNIQUE: Procedure Code: CTBR Modality: CT Procedure: BRAIN/HEAD WITHOUT CONTRAST Coronal and Sagittal reconstruction series were provided. One or more dose reduction techniques were used (e.g., Automated exposure control, adjustment of the mA and/or kV according to patient size, use of iterative reconstruction technique. RADIATION DOSE SUMMARY: DLP: 1239.09 mGycm COMPARISON: CT head/angiography 11/08/2024 FINDINGS: No acute intracranial hemorrhage, extra-axial collection, mass effect or evidence of acute infarct. Chronic appearing encephalomalacia/gliosis involving the left temporal lobe, and right cerebellar hemisphere from remote infarcts. Moderate chronic small-vessel ischemic-gliotic changes elsewhere in the supratentorial white matter with scattered old lacunar infarcts. Unremarkable orbits. Intact skull base and calvarium. Well-aerated paranasal sinuses and mastoid air cells. CT/Brain/Head without Contrast IMPRESSION: 1. No evidence of acute intracranial pathology. 2. Moderate chronic small-vessel ischemic changes and old infarcts with encepha lomalacia involving the left temporal lobe and right cerebellar hemisphere. Reading Location: [id number]
--- NOTE | 2025-05-24 16:01 | CT_ITS ---
PROCEDURE: CTA CHEST W/WO CONTRAST 05/24/2025 REASON FOR EXAM: PE TECHNIQUE: Procedure Code: [id number] Modality: CT Procedure: CTA CHEST W/WO CONTRAST Axial CTA images obtained of the chest after the administration of intravenous contrast. MIP reconstructed images were created and reviewed. CONTRAST: Isovue 370 VOLUME: 100 mL One or more dose reduction techniques were used (e.g., Automated exposure control, adjustment of the mA and/or kV according to patient size, use of iterative reconstruction technique). RADIATION DOSE SUMMARY: CTDlvol: 44.99, 14.25, 14.40 mGy DLP: 1239.09 mGycm COMPARISON: CT Chest w/o Contrast, 02/09/2025 FINDINGS: PULMONARY ARTERIES There is no intraluminal filling defect suspicious for PE. The pulmonary veins are enlarged. AORTA No thoracic aortic aneurysm or dissection. Minimal calcified atherosclerosis in the arch. TRACHEA/AIRWAYS: Endotracheal tube tip terminating 1.7 cm above the alberto. LUNGS Large dense consolidation in the right upper lobe. Smaller opacities in the dependent right middle and bilateral lower lobes. Interlobular septal and peribronchovascular interstitial thickening bilaterally. PLEURAL SPACES Bilateral pleural effusions, moderate on the right and small on the left. No pneumothorax. HEART Moderate cardiomegaly. Minimal pericardial effusion. Mitral annulus calcification. MEDIASTINUM/HILUM Multiple enlarged mediastinal lymph nodes, which have increased in size. The largest is subcarinal measuring 2.1 x 4.8 cm, previously 1.8 x 4.3 cm. CHEST WALL The chest wall is unremarkable. BONES No focal osseous abnormality or acute fracture. UPPER ABDOMEN Orogastric tube tip terminating in the gastric pylorus region. Nonspecific fat infiltration in the upper abdomen. CT/CTA Chest W/WO Contrast IMPRESSION: 1. No evidence of pulmonary embolus. 2. Low ET tube position, terminating 1.7 cm above the alberto. Withdrawal of a pproximately 2.0 cm is suggested for better positioning. 3. Large right upper lobe consolidation, consistent with pneumonia. 4. Dependent right middle and bilateral lower lobes opacities, possibly atelec tasis and/or infiltrates. 5. Cardiomegaly with vascular congestion and interstitial edema. 6. Moderate right and small left pleural effusions. 7. Persistent mediastinal lymphadenopathy, mildly increased since the prior st udy. Reading Location: [id number]
--- NOTE | 2025-05-24 16:14 | EDS_ITS ---
HPI History of Present Illness Chief Complaint: Shortness of Breath Narrative Narrative: Chief complaint and HPI: 75-year-old female with past medical history of COPD presents via EMS for shortness of breath and hypoxia. Per EMS, patient reported shortness of breath today. Family attempted to take the patient to the emergency department however she was minimally responsive so they called EMS. On EMS arrival, patient was 64% on room air. Placed on 15 L nonrebreather with SpO2 in the low 70s. On presentation, patient in respiratory distress and minimally responsive. Eyes open but not answering any questions. EMS states patient is a full code. Patient subsequently intubated. Review of systems: See HPI Medications: As listed on the chart Allergies: As listed on the chart PFSH: Per chart Vital signs: As listed on the chart. Reviewed. Physical exam: Gen: Minimally responsive, respiratory distress Head: Normocephalic, atraumatic Eyes: No sclera icterus, conjunctiva clear, PERRL ENT: Dry mucous membranes Neck: Trachea midline CV: Tachycardic, irregular irregular rhythm, no murmurs, +1 pitting peripheral edema with bilateral lower extremities Resp: Respiratory distress, tachypneic, hypoxic on 15 L nonrebreather, coarse bilaterally GI: Abd soft, non-distended, non-tender, midline surgical scar Musc: Minimally moving extremities, no deformity Skin: Warm PFSH PFS Medical History History of diabetes mellitus Chronic anticoagulation Atrial fibrillation Pulmonary hypertension Colon cancer Mitral stenosis Gout (HFpEF) heart failure with preserved ejection fraction Hypothyroidism Noncompliance with medication regimen Pre-op evaluation Obesity (BMI 30.0-34.9) Hypokalemia Abnormal gastrointestinal PET scan Contusion Subtherapeutic international normalized ratio (INR) Stroke/cerebrovascular accident Post-menopausal Thyroid disease Diabetes TIA (transient ischemic attack) Dietary restriction Diarrhea Gastric reflux History of edema History of irregular heartbeat Cardiology follow-up encounter Cancer Colonic mass Elevated TSH Anemia Wears glasses Wears dentures Depression Bruising Arthritis Walker as ambulation aid Ambulates with cane Easy bruising Former smoker COPD (chronic obstructive pulmonary disease) Shortness of breath on exertion History of echocardiogram Chronic anticoagulation PAD (peripheral artery disease) History of rheumatic fever as a child History of anxiety PFO with atrial septal aneurysm Atrial thrombus CVA (cerebral vascular accident) (~2006) Essential hypertension Chronic combined systolic and diastolic heart failure Home Medications ?Medication ?Instructions ?Recorded ?Last Taken ?Type acetaminophen 325 mg tablet 650 mg (2 x 325 mg) PO TID PRN 11/25/24 12/17/24 Rx fever/pain #1 TAB albuterol sulfate 90 mcg/actuation 2 puff inhalation Q 4H PRN Wheezing 11/25/24 Unknown Rx aerosol inhaler #1 g dapagliflozin propanediol 10 mg 10 mg PO DAILY dm #30 tabs 11/25/24 12/17/24 Rx tablet (Farxiga) fluticasone fur. 200 mcg-umeclid 1 inh inhalation MOE Y sob #1 inh 11/25/24 Unknown Rx 62.5 mcg-vilant 25 mcg inhalat.powder (Trelegy Ellipta) apixaban 5 mg tablet (Eliquis) 5 mg PO BID blood thinn er #60 tabs 12/07/24 12/17/24 Rx atorvastatin 40 mg tablet 40 mg PO QHS cholesterol #30 tabs 12/07/24 12/16/24 Rx furosemide 40 mg tablet 40 mg PO QDAY 03/25/25 Unkno wn History ipratropium bromide 21 mcg (0.03 1 - 2 spray intranasa l Q6 PRN 03/31/25 Unknown History %) nasal spray allergy symptoms BIPAP -Bilevel Positive Airway 05/16/25 Unknown Histo ry Pressure ([facility] INFORMATIONAL USE ONLY) levothyroxine 88 mcg tablet 100 mcg PO DAILY THYROID 1 Unknown History (Euthyrox) Allergy/AdvReac Type Severity Reaction Status Date / Time codeine Allergy Severe anaphylaxis Verified 05/23/25 10:35 Family History Father Myocardial infarction Cancer lung CVA (cerebral vascular accident) Mother Colon cancer Brother Diabetes CAD (coronary artery disease) open heart surgery Surgical History Hx of right hemicolectomy S/P right hemicolectomy Hx of colonoscopy History of hysterectomy History of appendectomy History of cholecystectomy Social History household members: other details: 22 year old grandson lives with her, but he works nights. Smoking Status: Former smoker how long ago did patient quit smokin years ago alcohol intake: never substance use type: does not use caffeine: Yes Type: tea Number of servings: 2 EXAM Physical Exam Const Vital Signs: 05/24/25 15:50 05/24/25 15:52 05/24/25 15:54 Temperature Temperature Source Pulse Rate 143 H Respiratory Rate 16 Respiratory Effort Short of Breath Labored Labored Accessory Muscle Use Respiratory Depth Shallow Respiratory Pattern Tachypnea Normal Blood Pressure Blood Pressure Mean Pulse Ox 100 Oxygen Delivery Method Non-Rebreather Oxygen Flow Rate (L/min) 15 Fraction of Inspired Oxygen (FIO2) EtCo2 - Document during CPR and with ROSC 48 05/24/25 15:55 05/24/25 16:18 05/24/25 16:46 Temperature 99.6 F H Temperature Source Temporal Pulse Rate 122 H 90 111 H Respiratory Rate 14 14 Respiratory Effort Respiratory Depth Respiratory Pattern Blood Pressure 159/131 H 130/61 H Blood Pressure Mean 140 84 Pulse Ox 97 Oxygen Delivery Method Non-Rebreather Mechanical Ventilator Oxygen Flow Rate (L/min) 15 Fraction of Inspired Oxygen (FIO2) 100 EtCo2 - Document during CPR and with ROSC 05/24/25 16:59 05/24/25 17:00 05/24/25 17:30 Temperature 102.2 F H 101.7 F H 101.2 F H Temperature Source Core Core Core Pulse Rate 110 H 103 H 117 H Respiratory Rate 22 H 17 14 Respiratory Effort Respiratory Depth Respiratory Pattern Blood Pressure 128/49 H 128/49 H 140/67 H Blood Pressure Mean 75 75 91 Pulse Ox 95 98 98 Oxygen Delivery Method Mechanical Ventilator Mechanical Ventilator Mechanical Ventilator Oxygen Flow Rate (L/min) Fraction of Inspired Oxygen (FIO2) EtCo2 - Document during CPR and with ROSC 05/24/25 18:00 05/24/25 18:23 05/24/25 18:54 Temperature 100.9 F H 100.2 F H 99.2 F H Temperature Source Core Core Core Pulse Rate 108 H 108 H 107 H Respiratory Rate 24 H 14 15 Respiratory Effort Respiratory Depth Respiratory Pattern Blood Pressure 111/91 H 104/47 L 120/99 H Blood Pressure Mean 97 66 106 Pulse Ox 94 93 Oxygen Delivery Method Mechanical Ventilator Mechanical Ventilator Mechanical Ventilator Oxygen Flow Rate (L/min) Fraction of Inspired Oxygen (FIO2) EtCo2 - Document during CPR and with ROSC 05/24/25 18:58 05/24/25 19:13 Temperature 99.8 F H 99.4 F H Temperature Source Core Core Pulse Rate 109 H 108 H Respiratory Rate 15 18 Respiratory Effort Respiratory Depth Respiratory Pattern Blood Pressure 120/99 H 106/87 H Blood Pressure Mean 106 93 Pulse Ox 91 92 Oxygen Delivery Method Mechanical Ventilator Mechanical Ventilator Oxygen Flow Rate (L/min) Fraction of Inspired Oxygen (FIO2) EtCo2 - Document during CPR and with ROSC MDM MDM MDM Narrative Medical decision making narrative: 75-year-old female with past medical history of COPD presents via EMS for shortness of breath and hypoxia. Per EMS, patient reported shortness of breath today. Family attempted to take the patient to the emergency department however she was minimally responsive so they called EMS. On EMS arrival, patient was 64% on room air. Placed on 15 L nonrebreather with SpO2 in the low 70s. On presentation, patient in respiratory distress and minimally responsive. Eyes open but not answering any questions. EMS states patient is a full code. Patient subsequently intubated and tolerated this well. Improvement in oxygenation. Differential diagnosis includes but is not limited to COPD exacerbation, pneumonia, viral illness, CHF exacerbation, arrhythmia, electrolyte abnormality, PE, ACS, UTI, bacteremia, intracranial abnormality. Patient made a sepsis alert. Will hold off on 30 cc/kg bolus at this time given concern for fluid overload. NS bolus ordered. Rocephin and azithromycin given for suspected pneumonia. Patient in atrial fibrillation with RVR. Diltiazem bolus ordered. DuoNebs and Solu-Medrol. Extensive workup ordered. VBG shows respiratory acidosis with pH of 7.165, pCO2 of 67.4, and a bicarb of 24.3. Family was updated at bedside on the patient's status. Patient's daughter states the patient has a DNR. Okay with sticking with the intubation per daughter. However will keep DNR order. CBC with leukocytosis of 33.5. No anemia. Platelets unremarkable. INR unremarkable. CMP shows mild dehydration without BYRON. Hyperglycemia. Lactic acid 4.5. Another NS bolus ordered but again be due to show with fluids giving fluid overload. BNP elevated at 2162. Troponin 24. Repeat ABG shows improvement in respiratory acidosis. UA with pyuria, waiting to see if there is bacteria. CT brain negative for acute intracranial abnormality. Chronic changes seen. CTA of the chest negative for PE. Large right upper lobe consolidation consistent with pneumonia. Dependent right middle and bilateral lower lobes opacities possibly atelectasis and/or infiltrates. Cardiomegaly with vascular congestion and interstitial edema. Moderate right and small left pleural effusions. Persistent mediastinal lymphadenopathy, mildly curved since prior study. Patient's family was updated of all the results. Patient will warrant admission. Dr. Gomez accepted admission. Endotracheal Intubation Indication: Respiratory Distress Consent:Emergent Procedure: The patient was on a electronic device monitor including continuous pulse oximetry. Rapid Sequence Intubation was conducted. The patient received 20 mg of Etomidate for induction and 80mg of Rocuronium for adequate paralysis. Cricoid pressure was maintained from the time the induction agent was given to the time of cuff balloon inflation. Using a laryngoscope and a size 7.5 endotracheal tube with stylet, the patient was intubated on the first attempt. The stylet was removed, and the cuff balloon was inflated. Appropriate endotracheal tube positi on was confirmed by direct visualization of vocal cord passage, fogging of the tube, CO2 colorimetric indicator and symmetric breath sounds. The tube was secured at 23 cm at the lips. EKG: Interpreted by me/EM physician: EKG shows atrial fibrillation with RVR. Nonspecific ST changes. Heart rate 144. Diagnostic: Interpreted by me/EM physician: Chest x-ray was personally viewed interpreted by me, ED physician. ET tube and OG in correct placement. Mild cardiomegaly with pulmonary vascular congestion. Consolidation in the right mid upper lobe. Radiology in agreement. 40 minutes of critical care time utilized in managing the patient. This is due to high probability of and deterioration of the patient based on the patient's condition and excludes any separately billable procedures. Impression: 1. Acute hypoxic respiratory failure requiring mechanical ventilation and intubation 2. Sepsis secondary to pneumonia 3. CHF exacerbation 4. Lactic acidosis 5. Mild dehydration 6. Elevated troponin 7. Pyuria waiting on bacteria to determine UTI 8. Hyperglycemia with known diabetes Lab Data Labs: Laboratory Results - last 24 hr 05/24/25 05/24/25 05/24/25 15:54 16:07 16:45 WBC 33.5 H* RBC 5.04 Hgb 13.4 Hct 44.5 MCV 88.3 MCH 26.6 L MCHC 30.1 L RDW Std Deviation 54.0 H RDW Coeff of Angela 16.8 H Plt Count 258 MPV 10.4 Immature Gran % (Auto) 1.100 H Neut % (Auto) 81.2 H Lymph % (Auto) 9.4 L [place] % (Auto) 7.9 Eos % (Auto) 0.1 Baso % (Auto) 0.3 Absolute Neuts (auto) 27.2 H Absolute Lymphs (auto) 3.14 Nucleated RBC % 0 Differential Comment SCANNED Diff Path Review May foll Platelet Estimate ADEQUATE PT 17.4 H INR 1.4 APTT 29.5 Sodium 133 Potassium 4.5 Chloride 97 L Carbon Dioxide 20.0 L Anion Gap 17 H BUN 17 Creatinine 1.10 Estim Creat Clear Calc 53.54 Est GFR (MDRD) Non-Af 53 L BUN/Creatinine Ratio 15.8 Glucose 350 H Lactic Acid 4.5 H* Calcium 9.5 Total Bilirubin 2.07 H AST 26 ALT 14 Alkaline Phosphatase 136 H Troponin T High Sens 24 H D NT pro BNP II 2162 H Total Protein 7.5 Albumin 3.8 Globulin 3.7 Albumin/Globulin Ratio 1.0 Urine Color Yellow Urine Clarity Cloudy Urine pH 5.0 Ur Specific [place] 1.020 Urine Protein 500 H Urine Glucose (UA) 1000 H Urine Ketones Negative Urine Occult Blood 250 H Urine Nitrite Negative Urine Bilirubin 1 H Urine Urobilinogen 4 H Ur Leukocyte Esterase 100 H ABG Data ABG results: ABG 05/24/25 05/24/25 16:10 19:05 Specimen Type ART ART Sample Site L Radial R Radial pH 7.17 L* 7.22 L Bicarbonate Actual 24.3 21.6 L Total CO2 26 23 Base Excess -4 L -6 L O2 Saturation 94 L 91 L O2 % 100.0 80.0 ABG pCO2 67.4 H* 53.3 H ABG pO2 93 73 L Kenneth Test Positive Positive Respiration Rate 14 O2 Delivery Device Adult Vent Adult Vent Vent Mode AC/vc+ AC Tidal Volume 450.0 POC PEEP 10 10 Crit Call To/Read Back Yes Blood Gas Notified Whom klusty Blood Gas Notified Time 16:12:10 Radiography Diagnostic Testing: Clinical Impression(s) from Imaging Studies Chest X-Ray 05/24/25 15:58 IMPRESSION: 1. Endotracheal and enteric tubes likely in appropriate positions. 2. Dense right mid upper lung consolidation. 3. Mild cardiomegaly and mild pulmonary vascular congestion. [facility] Brain [facility] 05/24/25 16:01 IMPRESSION: 1. No evidence of acute intracranial pathology. 2. Moderate chronic small-vessel ischemic changes and old infarcts with encephalomalacia involving the left temporal lobe and right cerebellar hemisphere. Reading Location: [facility] Chest CTA 05/24/25 16:01 IMPRESSION: 1. No evidence of pulmonary embolus. 2. Low ET tube position, terminating 1.7 cm above the alberto. Withdrawal of approximately 2.0 cm is suggested for better positioning. 3. Large right upper lobe consolidation, consistent with pneumonia. 4. Dependent right middle and bilateral lower lobes opacities, possibly atelectasis and/or infiltrates. 5. Cardiomegaly with vascular congestion and interstitial edema. 6. Moderate right and small left pleural effusions. 7. Persistent mediastinal lymphadenopathy, mildly increased since the prior study. Reading Location: [facility] Discharge Plan Triage Chief Complaint: Shortness of Breath ED Provider: Bill Freedman Dx/Rx/DC Orders Prescriptions: No Action atorvastatin 40 mg tablet 40 mg PO QHS Qty: 30 3RF Eliquis 5 mg tablet 5 mg PO BID Qty: 60 3RF furosemide 40 mg tablet 40 mg PO QDAY ipratropium bromide 21 mcg (0.03 %) spray,non-aerosol 1 - 2 spray intranasal Q6 PRN (Reason: allergy symptoms) (DME) BIPAP -Bilevel Positive Airway Pressure ([facility] INFORMATIONAL USE ONLY) See Rx Instructions .ROUTE .MEDSUPPLY Rx Instructions: BIPAP 07/11 DME- DASCO MASK- SMALL RESMED N30 NASAL MASK levothyroxine [Euthyrox] 88 mcg Tablet 100 mcg PO DAILY Rx Instructions: Take this on an empty stomach and then do not eat or drink for 30 minutes. acetaminophen 325 mg Tablet 650 mg PO TID PRN (Reason: fever/pain) Qty: 1 0RF albuterol sulfate 90 mcg/actuation Hfa Aerosol Inhaler 2 puff inhalation Q4H PRN (Reason: Wheezing) Qty: 1 0RF Rx Instructions: 2 puffs every 4 hours as needed for wheezing/shortness of breath dapagliflozin propanediol [Farxiga] 10 mg tablet 10 mg PO DAILY Qty: 30 0RF Trelegy Ellipta 200-62.5-25 mcg blister with device 1 inh inhalation DAILY Qty: 1 0RF Patient Comments: PT USES NEEDED Primary Care Provider: Alejandro Rosales Referrals: Alejandro Rosales MD [Primary Care Provider, Family Practice] Print Language: Moldovan
[2025-05-24 16:15] LABS: Allen Test Positive; Base Excess -4 mmol/L (-2 to +2); FI02 100.0; PEEP 10; PO2 93 mmHG (75-100); SITE L Radial; SO2 94 % (95-99); Time Given 16:12:10
[2025-05-24] MEDS: 0.9% Normal Saline (1000mL) 1,000 ML 999 ML IV (16:19)
[2025-05-24] MEDS: Propofol 10MG/Ml 1,000 MG/100 ML Bottle 5.8 MG CONT INF (16:19)
[2025-05-24] MEDS: Ceftriaxone 2 GM in 0.9% Normal Saline (50mL MB+) 50 ML IV (16:23)
[2025-05-24 16:33] LABS: Hematocrit 44.5 % (37-47); Hemoglobin 13.4 g/dL (12.0-15.0); Immature Granulocytes Count 0.380 X10^3/uL (0.0-0.0); Mean Corp Hgb Conc 30.1 g/dL (32-36); Mean Corpuscular Volume 88.3 fL (81-99); Mean Platelet Vol. 10.4 fl (6.2-12.0); NRBC Flagged by Analyzer 0 % (0-5); POSITIVE COUNT YES; POSITIVE DIFFERENTIAL YES; Platelet Count 258 K/mm3 (150-450); RBC Distribution Width CV 16.8 % (11.6-14.6); RBC Distribution Width SD 54.0 fl (35.1-43.9); Red Blood Count 5.04 M/mm3 (4.2-5.4)
[2025-05-24 16:47] LABS: Differential Indicated SCAN CRITERIA MET; White Blood Count 33.5 K/mm3 (4.4-11.0)
[2025-05-24 16:50] LABS: Mucous, Urine 0 SEEN /hpf (<or=2+)
[2025-05-24 17:12] LABS: Partial Thromboplast Time 29.5 Seconds (24.1-36.2); Prothrombin Time (Protime)PT. 17.4 SECONDS (11.7-14.9)
[2025-05-24 17:18] LABS: AST(SGOT) 26 U/L (<=31); Alanine Aminotransfer ALT/SGPT 14 U/L (<=34); Albumin, Serum 3.8 g/dL (3.4-4.8); Alkaline Phosphatase 136 U/L (35-104); Anion Gap 17 (5-15); BUN 17 mg/dL (4-19); BUN/Creat Ratio 15.8 RATIO (10-20); Calcium,Total 9.5 mg/dL (7.6-11.0); Carbon Dioxide 20.0 mmol/L (21.0-32.0); Chloride 97 mmol/L (98-108); Estimated Creatinine Clearance 53.54 ml/min (50-250); Globulin 3.7 g/dL (2.2-4.2); Glucose 350 mg/dL (70-99); Potassium 4.5 mmol/L (3.3-5.1)
[2025-05-24 17:24] LABS: Troponin T High Sensitivity 24 ng/L (<=14)
[2025-05-24 17:30] LABS: Color, Urine Yellow (Yellow); Glucose, Dipstick 1000 mg/dl (Normal); Ketone-Dipstick Negative (Negative); Leukocyte Esterase-Dipstick 100 /ul (Negative); Nitrite-Dipstick Negative (Negative); Occult Blood-Urine 250 /ul (Negative); Protein-Dipstick 500 mg/dl (Negative); Specific Gravity, Urine 1.020 (1.002-1.030)
[2025-05-24 17:32] LABS: Urine Bilirubin Dipstick 1 mg/dL (Negative)
[2025-05-24 17:41] LABS: Pro- Brain NATRIURETIC PEPTIDE 2162 pg/mL (<=900)
[2025-05-24] MEDS: Azithromycin 500 MG in 0.9% Normal Saline (250mL Bag) 250 ML 255 MG IV (17:44)
[2025-05-24] MEDS: 0.9% Normal Saline (1000mL) 1,000 ML 1000 ML IV (17:47)
[2025-05-24 18:45] LABS: Differential Comment SCANNED
[2025-05-24 19:09] LABS: Allen Test Positive; Base Excess -6 mmol/L (-2 to +2); FI02 80.0; PEEP 10; PO2 73 mmHG (75-100); RR 14; SITE R Radial; SO2 91 % (95-99)
--- NOTE | 2025-05-24 19:17 | HP.PCM.HOS_ITS ---
[facility] - General General Date of Admission: 05/24/25 Date of Service: 05/24/25 Chief Complaint: SOB. [facility] Narrative YAMILE RODRIGUEZ, is a 75 F with a past medical history of essential hypertension; on furosemide, hyperlipidemia; on atorvastatin, hypothyroidism; on levothyroxine, obesity (class I); with a BMI of 34.6 this admission, MURIEL; on BiPAP, DM-2; of unknown control on dapagliflozin, remote history of rheumatic fever as a child, paroxysmal atrial fibrillation; on apixaban twice daily, history of PFO; with atrial septal aneurysm and atrial thrombus, history of moderate mitral stenosis (11/2024), history of chronic combined systolic and diastolic CHF, history of embolic Left MCA CVA (~2006); residual Right-sided weakness, Left visual field cut and mildly impaired speech [with most recent CVA 11/08/2024], history of TIA x 4, former tobacco abuse (quit ~15 years ago); with subsequent COPD, pulmonary hypertension; with RSVP ~45 mmHg at [facility] (11/2024), PAD, history of varicose veins of both lower extremities with edema, gout, OA, history of hysterectomy, history of appendectomy, history of cholecystectomy and history of colon cancer; s/p colonoscopy 2021 which showed proximal nearly obstructing colon mass and biopsy positive for adenocarcinoma with no evidence of metastatic disease; s/p Right hemicolectomy August 17, 2021 for stage IIa (pT3 pNO and MO) disease followed by Dr. Robbins of the oncology service with subsequent noting of mediastinal lymphadenopathy on February 09, 2025 who presents to [facility] ER complaining of shortness of breath. Ms. Rodriguez was intubated shortly after arrival so information was gathered from chart, medical staff and computer. According to the records the patient's family noted she was minimally responsive after complaining of shortness of breath throughout the day so they activated EMS. Upon arrival patient was noted to be ~64% on room air and was placed on 15L NRB with SpO2 in the low 70's with patient in respiratory distress and minimally responsive so she was subsequently intubated. EMS records affirmed patient is a full code. In the ER patient was noted to have Leukocytosis of 33.5 K with Left-shift of 1.1% and Lactic Acidosis of 4.5 mmol/L present on admission consistent with Sepsis with a corresponding CTA of the chest with IV contrast that revealed no evidence of PE with low ET tube position terminating ~1.7 cm above the alberto with withdrawal of ~2 cm suggestive for better positioning with large Right upper lobe consolidation consistent with Pneumonia independent Right middle and bilateral lower lobe opacities, possibly atelectasis and/or infiltrates with Cardiomegaly, Vascular Congestion and Interstitial Edema and moderate Right and small Left Pleural Effusions with persistent mediastinal lymphadenopathy mildly increased since the prior study complicated by clinical evidence of Acute Hypoxic and Hypercapnic Respiratory Failure; with ABG pH 7.22/ pCO2 53.3 mmHg/ PaO2 73 mmHg/ HCO3 21.6 mmol/L @ 91% on the ventilator AC rate of 14 with tidal volume of 450 and 10 of PEEP compounded by elevated NT pro-BNP II of 2,162 pg/mL present on admission consistent with AE of Chronic Combined Systolic and Diastolic CHF in addition to UA positive for Acute Cystitis; microscopic hematuria, Hyperglycemia of 350 mg/dL, Hyperbilirubinemia of 2.07 mg/dL and elevated Alkaline Phosphatase of 136 units/L all present on admission. She was then admitted to the ICU for treatment under the sepsis protocol for status of expected to extend beyond 2 midnights. [facility] Medical History (Updated 05/25/25 @ 04:[address] Klever Piedra, DO) Atrial fibrillation History of diabetes mellitus Chronic anticoagulation Pulmonary hypertension Colon cancer Mitral stenosis Gout (HFpEF) heart failure with preserved ejection fraction Hypothyroidism Noncompliance with medication regimen Pre-op evaluation Obesity (BMI 30.0-34.9) Hypokalemia Abnormal gastrointestinal PET scan Contusion Subtherapeutic international normalized ratio (INR) Stroke/cerebrovascular accident Post-menopausal Thyroid disease Diabetes TIA (transient ischemic attack) Dietary restriction Diarrhea Gastric reflux History of edema History of irregular heartbeat Cardiology follow-up encounter Cancer Colonic mass Elevated TSH Anemia Wears glasses Wears dentures Depression Bruising Arthritis Walker as ambulation aid Ambulates with cane Easy bruising Former smoker COPD (chronic obstructive pulmonary disease) Shortness of breath on exertion History of echocardiogram Chronic anticoagulation PAD (peripheral artery disease) History of rheumatic fever as a child History of anxiety PFO with atrial septal aneurysm Atrial thrombus CVA (cerebral vascular accident) (~2006) Essential hypertension Chronic combined systolic and diastolic heart failure Home Medications ?Medication ?Instructions ?Recorded ?Last Taken ?Type acetaminophen 325 mg tablet 650 mg (2 x 325 mg) PO TID PRN 11/25/24 12/17/24 Rx fever/pain #1 TAB albuterol sulfate 90 mcg/actuation 2 puff inhalation Q 4H PRN Wheezing 11/25/24 Unknown Rx aerosol inhaler #1 g dapagliflozin propanediol 10 mg 10 mg PO DAILY dm #30 tabs 11/25/24 12/17/24 Rx tablet (Farxiga) fluticasone fur. 200 mcg-umeclid 1 inh inhalation MOE Y sob #1 inh 11/25/24 Unknown Rx 62.5 mcg-vilant 25 mcg inhalat.powder (Trelegy Ellipta) apixaban 5 mg tablet (Eliquis) 5 mg PO BID blood thinn er #60 tabs 12/07/24 12/17/24 Rx atorvastatin 40 mg tablet 40 mg PO QHS cholesterol #30 tabs 12/07/24 12/16/24 Rx furosemide 40 mg tablet 40 mg PO QDAY 03/25/25 Unkno wn History ipratropium bromide 21 mcg (0.03 1 - 2 spray intranasa l Q6 PRN 03/31/25 Unknown History %) nasal spray allergy symptoms BIPAP -Bilevel Positive Airway 05/16/25 Unknown Histo ry Pressure ([facility] INFORMATIONAL USE ONLY) levothyroxine 88 mcg tablet 100 mcg PO DAILY THYROID 1 Unknown History (Euthyrox) Allergy/AdvReac Type Severity Reaction Status Date / Time codeine Allergy Severe anaphylaxis Verified 05/23/25 10:35 Family History Father Myocardial infarction Cancer lung CVA (cerebral vascular accident) Mother Colon cancer Brother Diabetes CAD (coronary artery disease) open heart surgery Surgical History Hx of right hemicolectomy S/P right hemicolectomy Hx of colonoscopy History of hysterectomy History of appendectomy History of cholecystectomy Social History household members: other details: 22 year old grandson lives with her, but he works nights. Smoking Status: Former smoker how long ago did patient quit smokin years ago alcohol intake: never substance use type: does not use caffeine: Yes Type: tea Number of servings: 2 ROS ROS Narrative Full ROS was not possible due to patient being intubated at time of admission. Vital Signs Vital Signs Vital Signs: 05/24/25 15:50 05/24/25 15:52 05/24/25 15:54 Temperature Temperature Source Pulse Rate 143 H Respiratory Rate 16 Respiratory Effort Short of Breath Labored Labored Accessory Muscle Use Respiratory Depth Shallow Respiratory Pattern Tachypnea Normal Blood Pressure Blood Pressure Mean Pulse Ox 100 Oxygen Delivery Method Non-Rebreather Oxygen Flow Rate (L/min) 15 Fraction of Inspired Oxygen (FIO2) EtCo2 - Document during CPR and with ROSC 48 05/24/25 15:55 05/24/25 16:18 05/24/25 16:46 Temperature 99.6 F H Temperature Source Temporal Pulse Rate 122 H 90 111 H Respiratory Rate 14 14 Respiratory Effort Respiratory Depth Respiratory Pattern Blood Pressure 159/131 H 130/61 H Blood Pressure Mean 140 84 Pulse Ox 97 Oxygen Delivery Method Non-Rebreather Mechanical Ventilator Oxygen Flow Rate (L/min) 15 Fraction of Inspired Oxygen (FIO2) 100 EtCo2 - Document during CPR and with ROSC 05/24/25 16:59 05/24/25 17:00 05/24/25 17:30 Temperature 102.2 F H 101.7 F H 101.2 F H Temperature Source Core Core Core Pulse Rate 110 H 103 H 117 H Respiratory Rate 22 H 17 14 Respiratory Effort Respiratory Depth Respiratory Pattern Blood Pressure 128/49 H 128/49 H 140/67 H Blood Pressure Mean 75 75 91 Pulse Ox 95 98 98 Oxygen Delivery Method Mechanical Ventilator Mechanical Ventilator Mechanical Ventilator Oxygen Flow Rate (L/min) Fraction of Inspired Oxygen (FIO2) EtCo2 - Document during CPR and with ROSC 05/24/25 18:00 05/24/25 18:23 05/24/25 18:54 Temperature 100.9 F H 100.2 F H 99.2 F H Temperature Source Core Core Core Pulse Rate 108 H 108 H 107 H Respiratory Rate 24 H 14 15 Respiratory Effort Respiratory Depth Respiratory Pattern Blood Pressure 111/91 H 104/47 L 120/99 H Blood Pressure Mean 97 66 106 Pulse Ox 94 93 Oxygen Delivery Method Mechanical Ventilator Mechanical Ventilator Mechanical Ventilator Oxygen Flow Rate (L/min) Fraction of Inspired Oxygen (FIO2) EtCo2 - Document during CPR and with ROSC 05/24/25 18:58 05/24/25 19:13 Temperature 99.8 F H 99.4 F H Temperature Source Core Core Pulse Rate 109 H 108 H Respiratory Rate 15 18 Respiratory Effort Respiratory Depth Respiratory Pattern Blood Pressure 120/99 H 106/87 H Blood Pressure Mean 106 93 Pulse Ox 91 92 Oxygen Delivery Method Mechanical Ventilator Mechanical Ventilator Oxygen Flow Rate (L/min) Fraction of Inspired Oxygen (FIO2) EtCo2 - Document during CPR and with ROSC Weight Weight: 214 lb 4.629 oz Body Mass Index (BMI) 34.5 Physical Exam Const Constitutional Narrative: Patient is intubated and sedated. HEENT normocephalic, head/scalp atraumatic and hearing grossly normal bilaterally HEENT Narrative: ETT in place. Eyes PERRL, EOMs intact bilaterally and conjunctivae normal Neck no lymphadenopathy and supple Resp Resp Narrative: Diminished breath sounds throughout with bibasilar rales. Auscultation: rales Cardio Cardio Narrative: Irregularly irregular. GI normal to inspection, nondistended, normoactive bowel sounds, soft to palpation, non-tender and non-distended GI Narrative: Obese. Extremity Extremity Narrative: ~1+ symmetrical bilateral lower extremity pitting edema. Skin Skin Narrative: Patient has no evidence of rash, abscess, wounds or jaundice. Neuro Neuro Narrative: Patient is intubated and sedated on ventilator. Psych Psych Narrative: Patient is intubated and sedated on ventilator. Results Medical Records Data Attestation: I reviewed the patient's medical records Lab / Micro Data Attestation: I reviewed the patient's lab results. 05/24/25 16:07 05/24/25 15:54 Labs: Laboratory Results - last 24 hr 05/24/25 15:54: Sodium 133, Potassium 4.5, Chloride 97 L, Carbon Dioxide 20.0 L, Anion Gap 17 H, BUN 17, Creatinine 1.10, Estim Creat Clear Calc 53.54, Est GFR (MDRD) Non-Af 53 L, BUN/Creatinine Ratio 15.8, Glucose 350 H, Calcium 9.5, Total Bilirubin 2.07 H, AST 26, ALT 14, Alkaline Phosphatase 136 H, Troponin T High Sens 24 H D, Total Protein 7.5, Albumin 3.8, Globulin 3.7, Albumin/Globulin Ratio 1.0 05/24/25 16:07: WBC 33.5 H*, RBC 5.04, Hgb 13.4, Hct 44.5, MCV 88.3, MCH 26.6 L, MCHC 30.1 L, RDW Std Deviation 54.0 H, RDW Coeff of Angela 16.8 H, Plt Count 258, MPV 10.4, Immature Gran % (Auto) 1.100 H, Neut % (Auto) 81.2 H, Lymph % (Auto) 9.4 L, [place] % (Auto) 7.9, Eos % (Auto) 0.1, Baso % (Auto) 0.3, Absolute Neuts (auto) 27.2 H, Absolute Lymphs (auto) 3.14, Nucleated RBC % 0, Differential Comment SCANNED, Diff Path Review December, Platelet Estimate ADEQUATE, PT 17.4 H, INR 1.4, APTT 29.5, Lactic Acid 4.5 H*, NT pro BNP II 2162 H 05/24/25 16:45: Urine Color Yellow, Urine Clarity Cloudy, Urine pH 5.0, Ur Specific [employer] 1.020, Urine Protein 500 H, Urine Glucose (UA) 1000 H, Urine Ketones Negative, Urine Occult Blood 250 H, Urine Nitrite Negative, Urine Bilirubin 1 H, Urine Urobilinogen 4 H, Ur Leukocyte Esterase 100 H Micro: Microbiology 05/24/25 16:07 Mucosa - Nose SARS-CoV-2, Influenza & RSV (PCR) - Final ABG Data ABG results: ABG 05/24/25 05/24/25 16:10 19:05 Specimen Type ART ART Sample Site L Radial R Radial pH 7.17 L* 7.22 L Bicarbonate Actual 24.3 21.6 L Total CO2 26 23 Base Excess -4 L -6 L O2 Saturation 94 L 91 L O2 % 100.0 80.0 ABG pCO2 67.4 H* 53.3 H ABG pO2 93 73 L Kenneth Test Positive Positive Respiration Rate 14 O2 Delivery Device Adult Vent Adult Vent Vent Mode AC/vc+ AC Tidal Volume 450.0 POC PEEP 10 10 Crit Call To/Read Back Yes Blood Gas Notified Whom klusty Blood Gas Notified Time 16:12:10 Imaging Radiology Impression Chest X-Ray 05/24/25 15:58 IMPRESSION: 1. Endotracheal and enteric tubes likely in appropriate positions. 2. Dense right mid upper lung consolidation. 3. Mild cardiomegaly and mild pulmonary vascular congestion. Reading [facility] Brain CT 05/24/25 16:01 IMPRESSION: 1. No evidence of acute intracranial pathology. 2. Moderate chronic small-vessel ischemic changes and old infarcts with encephalomalacia involving the left temporal lobe and right cerebellar hemisphere. Reading Location: [id number] Chest CTA 05/24/25 16:01 IMPRESSION: 1. No evidence of pulmonary embolus. 2. Low ET tube position, terminating 1.7 cm above the alberto. Withdrawal of approximately 2.0 cm is suggested for better positioning. 3. Large right upper lobe consolidation, consistent with pneumonia. 4. Dependent right middle and bilateral lower lobes opacities, possibly atelectasis and/or infiltrates. 5. Cardiomegaly with vascular congestion and interstitial edema. 6. Moderate right and small left pleural effusions. 7. Persistent mediastinal lymphadenopathy, mildly increased since the prior study. Reading Location: [id number] Imaging Services [address] [place] [id number] Chest 1 View (Portable) MR#: [id number] Acct: [id number] Name: YAMILE RODRIGUEZ Rep #: [id number] : 1950 F 75 From: Rani Cox MD PCP: Dr. Alejandro Rosales MD Status: ADM IN Study: Chest 1 View (Portable) Date of Exam: 05/24/25 Exam# [id number] Ordering Dr: Klever Piedra DO PROCEDURE: CHEST 1 VIEW (PORTABLE) 05/24/2025 REASON FOR EXAM: AE CHF TECHNIQUE: Frontal view of the chest. COMPARISON: 05/24/2025 FINDINGS: LINES: Multiple wires overlying the distal endotracheal tube, which appears to terminate 2.8 cm above the alberto. OG tube tip terminating in the pyloroduodenal region. LUNGS AND PLEURA: Persistent right upper lobe consolidation. Small opacities in both lung bases. Mild costophrenic angle blunting bilaterally. No pneumothorax. HEART AND MEDIASTINUM: The cardiac silhouette is mildly enlarged. The mediastinal contour is normal. AORTA: Mildly calcified aortic arch. PULMONARY VESSELS: Mild prominence of the central pulmonary vasculature. BONES: No acute osseous abnormality. RAD/Chest 1 View (Portable) IMPRESSION: 1. Low-lying ET tube terminating 2.8 cm above the alberto. Withdrawal of roughly 1.0-1.5 cm is suggested for better positioning. 2. Persistent bilateral lung opacities, without significant change. 3. Cardiomegaly with mild vascular congestion. 4. Small bilateral pleural effusions. Reading Location: [facility] CC: Dr. Klever Piedra DO; Dr. Alejandro Rosales MD ~ Sheep Sorter: Signed Assessment & Plan Assessment/Plan (1) Sepsis: QUALIFIERS: Acute respiratory failure type: unspecified Sepsis acute organ dysfunction status: with acute organ dysfunction Sepsis type: s epsis due to unspecified organism Severe sepsis acute organ dysfunction type: a cute respiratory failure Severe sepsis shock status: without septic shock Q ualified Code(s): A41.9 - Sepsis, unspecified organism; R65.20 - Severe sepsis without septic shock; J96.00 - Acute respiratory failure, unspecified whether with hypoxia or hypercapnia (2) Pneumonia: QUALIFIERS: Laterality: right Lung location: upper lobe of lung Pneumonia type: due to unspecified organism Qualified Code(s): J18.9 - Pneumonia, unspecified organism (3) COPD exacerbation: (4) CHF exacerbation: QUALIFIERS: Heart failure type: combined systolic and diastolic Q ualified Code(s): I50.43 - Acute on chronic combined systolic (congestive) and diastolic (congestive) heart failure (5) Acute respiratory failure with hypoxia and hypercapnia: (6) Acute cystitis with hematuria: (7) Atrial fibrillation: QUALIFIERS: Atrial fibrillation type: longstanding persistent Q ualified Code(s): I48.11 - Longstanding persistent atrial fibrillation (8) Chronic anticoagulation: (9) Hyperglycemia due to type 2 diabetes mellitus: QUALIFIERS: Diabetes mellitus brick setter operator insulin use: without brick setter operator use Qualified Code(s): E11.65 - Type 2 diabetes mellitus with hyperglycemia (10) Hyperbilirubinemia: (11) Obesity (BMI 30.0-34.9): PLAN: Plan 1. Leukocytosis of 33.5 K with Left-shift of 1.1% and Lactic Acidosis of 4.5 mmol/L present on admission consistent with Sepsis with a corresponding CTA of the chest with IV contrast that revealed no evidence of PE with low ET tube position terminating ~1.7 cm above the alberto with withdrawal of ~2 cm suggestive for better positioning with large Right upper lobe consolidation consistent with Pneumonia - Admit to ICU for treatment under for sepsis protocol. Give IV vancomycin and IV piperacillin-tazobactam for this critically ill patient requiring ICU admission and await culture & sensitivity data. Check urinary antigens for Streptococcus pneumonia and Legionella. Give pantoprazole IV daily for GI prophylaxis. Give acetaminophen NV as needed for pain or fever. Give ondansetron IV as needed for nausea and vomiting. Patient's family confirms she is Full Code. Her ET tube was repositioned and another recommendation was made to pull back ~1 cm with repeat CXR pending. 2. Elevated NT pro-BNP II of 2,162 pg/mL present on admission consistent with AE of Chronic Combined Systolic and Diastolic CHF with CT evidence of i ndependent Right middle and bilateral lower lobe opacities, possibly atelectasis and/or infiltrates with Cardiomegaly, Vascular Congestion and Interstitial Edema and moderate Right and small Left Pleural Effusions with persistent mediastinal lymphadenopathy mildly increased since the prior study complicating #1 - Hold further sepsis fluid bolus with obvious signs of volume overload present on admission. Avoid furosemide until hypotension resolves. 3. AE COPD with Acute Hypoxic and Hypercapnic Respiratory Failure; with ABG pH 7.22/ pCO2 53.3 mmHg/ PaO2 73 mmHg/ HCO3 21.6 mmol/L @ 91% on the ventilator AC rate of 14 with tidal volume of 450 and 10 of PEEP due to #1 & #2 in the setting of previously known Pulmonary Hypertension; with RSVP ~45 mmHg at [facility] (11/2024) - Wean ventilator as tolerated. Finally, we will consult pulmonary/critical-care physician see patient on rounds in a.m. for further recommendations regarding vent management with help appreciated in advance. 4. Acute Cystitis; with microscopic hematuria compounding #1 - #3 - Patient started on broad-spectrum antibiotics with IV vancomycin and IV piperacillin- tazobactam as outlined in #1. Urine Culture pending. 5. DM-2; on unknown control with Hyperglycemia of 350 mg/dL present on admission adding to the medical complexity of #1 - #4 - Recent HgbA1c done. Keep NPO for now. FSBS q. 4 hours plus lowest-intensity SSI. Hold dapagliflozin while inpatient. 6. Hyperbilirubinemia of 2.07 mg/dL and elevated Alkaline Phosphatase of 136 units/L present on admission - Serialize CMP daily to follow trend with changes attributed to all of the above. 7. Paroxysmal atrial fibrillation; on apixaban twice daily further complicating #1 - #6 - Hold apixaban for now in favor of full-dose LMWH. 8. Obesity (class I); with a BMI of 34.6 this admission plus MURIEL; on BiPAP adding to the burden of disease outlined from #1 - #7 - Weight loss will be recommended. Check TSH. This complicates her case and may hamper recovery. 9. History of colon cancer; s/p colonoscopy 2021 which showed proximal nearly obstructing colon mass and biopsy positive for adenocarcinoma with no evidence of metastatic disease s/p Right hemicolectomy August 17, 2021 for stage IIa (pT3 pNO and MO) disease followed by Dr. Robbins of the oncology service with subsequent noting of mediastinal lymphadenopathy on February 09, 2025 - Noted. 10. History of embolic Left MCA CVA (~2006); residual Right-sided weakness and impaired speech [with most recent CVA 11/08/2024] plus history of TIA x 4 - Noted. 11. Essential hypertension; on furosemide - Hold scheduled antihypertensives in light of #1. 12. Hyperlipidemia; on atorvastatin - Hold statin and check Lipid Profile. 13. Hypothyroidism; on levothyroxine - Check TSH and restart levothyroxine when patient can tolerate oral intake. 14. Remote history of rheumatic fever as a child - Noted. 15. History of PFO; with atrial septal aneurysm and atrial thrombus - Noted. 16. History of moderate mitral stenosis (11/2024) - Noted. 17. PAD - Stable. 18. History of varicose veins of both lower extremities with edema - Noted. 19. Gout - Stable with no evidence of acute flare at this time. 20. OA - Stable. 21. History of hysterectomy - Noted. 22. History of appendectomy - Noted. 23. History of cholecystectomy - Noted. 24. DVT/GI prophylaxis - Patient on full-dose enoxaparin for #6. Pantoprazole 40 mg IV daily. Total time: Approximately (but not less than) 75 minutes. Update: Patient dropped her blood pressure to 68/51 mmHg shortly after arrival to ICU requiring IV Levophed drip to keep MAP greater than 65 mmHg with PICC pending in AM. Her propofol was also stopped in favor of dexmedetomidine with patient also given IV albumin with volume overload relatively contraindicating additional crytalloids. Sepsis Attestation Sepsis Alert: Yes Sepsis Attestation: Agree w/Sepsis Date exam was performed: 05/24/25 Time exam was performed: 20:00 Possible Source of Sepsis: Pulmonary Sepsis Organ Dysfunction Criteria Present: Acute Respiratory Failure (New need for BiPAP/CPAP or MV), Total Bilirubin > 2 mg/dl, Lactic Acid > 2 mmol/L and New/Unexplained change in mental status Supportive Findings: In the ER patient was noted to have Leukocytosis of 33.5 K with Left-shift of 1.1% and Lactic Acidosis of 4.5 mmol/L present on admission consistent with Sepsis with a corresponding CTA of the chest with IV contrast that revealed no evidence of PE with low ET tube position terminating ~1.7 cm above the alberto with withdrawal of ~2 cm suggestive for better positioning with large Right upper lobe consolidation consistent with Pneumonia independent Right middle and bilateral lower lobe opacities, possibly atelectasis and/or infiltrates with Cardiomegaly, Vascular Congestion and Interstitial Edema and moderate Right and small Left Pleural Effusions with persistent mediastinal lymphadenopathy mildly increased since the prior study complicated by clinical evidence of Acute Hypoxic and Hypercapnic Respiratory Failure; with ABG pH 7.22/ pCO2 53.3 mmHg/ PaO2 73 mmHg/ HCO3 21.6 mmol/L @ 91% on the ventilator AC rate of 14 with tidal volume of 450 and 10 of PEEP compounded by elevated NT pro-BNP II of 2,162 pg/mL present on admission consistent with AE of Chronic Combined Systolic and Diastolic CHF in addition to Hyperglycemia of 350 mg/dL, Hyperbilirubinemia of 2.07 mg/dL and elevated Alkaline Phosphatase of 136 units/L all present on admission. Fluid Resuscitation Fluid resuscitation indicated?: Yes Fluid Resuscitation ordered: 30 ml/kg fluid bolus ordered Amount of fluid ordered: 2 Reason for lesser fluid bolus:: Concern for fluid overload and Heart failure Sepsis Note Date exam was performed: 05/25/25 Time exam was performed: 00:00 Sepsis Attestation: Sepsis re-evaluation was performed Response to fluids: Non Fluid responsive hypotension and Vasopressors started Charges/Coding Visit Charges Inpatient E&M: 96528 Init Hosp L3
[2025-05-24 19:32] LABS: Red Blood Cells-Urine 10-25 SEEN /hpf (0-5)
[2025-05-24 19:33] LABS: Fine Granular Cast- Urine 0-5 SEEN /lpf (0-5)
[2025-05-24 19:34] LABS: Transitional Epithelial - Ur 5-10 SEEN /hpf (0-5)
[2025-05-24 19:35] LABS: Squamous Epithelial Cells - UA 10-25 SEEN /hpf (5-10)
--- OUTSIDE RECORDS SUMMARY | 2025-05-24 19:37 | XMS RPT_ITS | CCD ---
Author Organization [facility] Care Team Providers Care Advertising Coordinator Name Role Phone Dr. Alejandro Rosales Primary Care Provider Dr. Alejandro Rosales Referring Provider [phone] Dr. Michelle Paige Attending Provider Dr. Marc Robbins Attending Provider Dr. Alejandro Rosales Primary Care Provider [phone] Alejandro Rosales Referring Provider [phone] Dr. Marc Robbins Attending Provider Dr. Alejandro Rosales Primary Care Provider [phone] Aleajndro Rosales Referring Provider [phone] Dr. Marc [...] Kris HERNÁNDEZ, Dr. Rg Coronado Other Provider Semenstacie DO, Dr. Ada Irving Attending Provide r Sementi DO, Dr. Ada Irving Other Provider Sementi DO, Dr. Aad Irving Referring Provide r Cynthia ARMORED VEHICLE OFFICER-C, Latoya Attending Provider Grecia HERNÁNDEZ, Dr. Martinez Attending Provider Itzel HERNÁNDEZ, Dr. Tran Attending Provider Juany HERNÁNDEZ, Dr. Jamey Eng Attending Provider Juany HERNÁNDEZ, Dr. Jamey Eng Referring Provider Marlena LEONARD, Dr. Beckwith Emergency Provider Gloria HERNÁNDEZ, Dr. Shayla Viramontes Admit Provider Gloria HERNÁNDEZ, Dr. Shayla Viramontes Attending Provider Evita HERNÁNDEZ, Dr. Mathur Other Provider Gloria HERNÁNDEZ, Dr. Shayla Viramontes Other Provider Bobby HERNÁNDEZ, Dr. Allen Primary Care Provider Bobby HERNÁNDEZ, Dr. Allen Referring Provider [phone] Kevan Jama MD Attending Provider Greta ARMORED VEHICLE OFFICER-C, Anu Benavides Attending Provider Greta ARMORED VEHICLE OFFICER-C, Anu Benavides Referring Provider Bobby HERNÁNDEZ, Dr. Allen Primary Care Provider Bobby HERNÁNDEZ, Dr. Allen Referring Provider Dr. Kevan Jama MD Attending Provider Greta ARMORED VEHICLE OFFICER-C, Anu Benavides Other Provider Dr. Wally Rodriges DO Attending Provider Bobby HERNÁNDEZ, Dr. Allen Attending Provider Bobby HERNÁNDEZ, Dr. Allen Primary Care Provider Dr. Marc Kumari MD Attending Provider Sementi DO, Dr. Ada Irving Other Provider Bobby HERNÁNDEZ, Dr. Allen Primary Care Provider Bobby HERNÁNDEZ, Dr. Allen Referring Provider Dr. Kevan Jama MD Attending Provider Sementi DO, Dr. Ada Irving Attending Provide r Sementi DO, Dr. Ada Irving Referring Provide r Yazan HERNÁNDEZ, Dr. Perez Attending Provider Bobby HERNÁNDEZ, Dr. Allen Primary Care Physician Greta LE-CAnu Attending Physician Greta ARMORED VEHICLE OFFICER-CAnu Nurse Practitioner Antelmo LEONARD, Dr. Lo Attending Physician Bobby HERNÁNDEZ, Dr. Allen Attending Physician Bobby HERNÁNDEZ, Dr. Allen Referring Provider Dr. Marc Kumari MD Attending Physician Yazan HERNÁNDEZ, Dr. Perez Attending Physician Dr. Chris Hand MD Referring Provider Sementi DO, Dr. Ada Irving Attending Physici an Sementi DO, Dr. Ada Irving Referring Provide r Dr. Marc Robbins MD Attending Physician Dr. Marc Robbins MD Referring Provider Jamey Harrington Referring Unavailable Rosales, Alejandro Primary Care Unavailable Jamey Harrington Attending Unavailable Rosales, Alejandro Primary Care Unavailable Jamey Harrington Attending Unavailable Jamey Harrington Referring Unavailable Rosales, Alejandro Primary Care Unavailable Anu Hernandes Attending Unavailable Rosales, Alejandro Attending Unavailable Rosales, Alejandro Referring Unavailable Rosales, Alejandro Primary Care Unavailable Kris, Rg Chi Consulting Unavailable Rosales, Alejandro Primary Care Unavailable Kris, Rg Chi Referring Unavailable Kris, Rg Chi Admitting Unavailable Ada Soliman Attending Unavaila ble Sementi, Ada Irving Consulting Unavaila Kevan Fowler Attending Unavailable Rosales, Alejandro Primary Care Unavailable Koram, Shayla Ana M Admitting Unavailable Sisaramis, Kevan Consulting Unavailable Koram, Shayla Ana M Consulting Unavailable Rosales, Alejandro Primary Care Unavailable Anu Hernandes Referring Unavailable Wally Rodrigse Attending Unavailable Rosales, Alejandro Primary Care Unavailable Wally Rodriges Attending Unavailable Anu Hernandes M Referring Unavailable Anu Hernandes Consulting Unavailable Rosales, Alejandro Primary Care Unavailable Anu Hernandes Attending Unavailable Rosales, Alejandro Referring Unavailable Kevan Jama Attending Unavailable Rosales, Alejandro Primary Care Unavailable Rosales, Alejandro Referring Unavailable Rosales, Alejandro Primary Care Unavailable Yazan, Chris Referring Unavailable Yazan, Chris Consulting Unavailable Yazan, Chris Attending Unavailable Rosales, Alejandro Primary Care Unavailable Bakari Miller Attending Unavailable Rosales, Alejandro Referring Unavailable Rosales, Alejandro Primary Care Unavailable Rosales, Alejandro Attending Unavailable Rosales, Alejandro Referring Unavailable Rosales, Alejandro Primary Care Unavailable Anu Hernandes Referring Unavailable Anu Hernandes Attending Unavailable Rosales, Alejandro Primary Care Unavailable Anu Hernandes Referring Unavailable Anu Hernandes Attending Unavailable Rosales, Alejandro Primary Care Unavailable Marc Robbins Referring Unavailable Marc Robbins Attending Unavailable Rosales, Alejandro Primary Care Unavailable Yazan, Chris Referring Unavailable Yazan, Chris Attending Unavailable Kevan Jama Attending Unavailable Rosales, Alejandro Referring Unavailable Rosales, Alejandro Primary Care Unavailable Pablo Guzman Attending Unavailable Rosales, Alejandro Primary Care Unavailable Kevan Jama Attending Unavailable Rosales, Alejandro Referring Unavailable Rosales, Alejandro Primary Care Unavailable Phillip Maldonado Attending Unavailable Rosales, Alejandro Primary Care Unavailable Rosales, Alejandro Primary Care Unavailable Rosales, Alejandro Attending Unavailable Rosales, Alejandro Referring Unavailable Rosales, Alejandro Primary Care Unavailable Anu Hernandes Referring Unavailable Anu Hernandes Attending Unavailable Rosales, Alejandro Primary Care Unavailable Yazan, Chris Referring Unavailable Yazan, Chris Attending Unavailable Rosales, Alejandro Primary Care Unavailable Sementi, Ada Irving Referring Unavaila ble Sementi, Ada Irving Attending Unavaila ble Anu Hernandes Attending Unavailable Rosales, Alejandro Primary Care Unavailable Anu Hernandes Attending Unavailable Anu Hernandes Referring Unavailable Semenstacie, Ada Irving Attending Unavaila ble Sementi, Ada Irving Referring Unavaila ble Rosales, Alejandro Primary Care Unavailable Rosales, Alejandro Primary Care Unavailable Koram, Shayla Ana M Admitting Unavailable Koram, Shayla Ana M Attending Unavailable Siska, Kevan Consulting Unavailable Rosales, Alejandro Primary Care Unavailable Kris, Rg Chi Consulting Unavailable Kris, Rg Chi Referring Unavailable Kris, Rg Chi Admitting Unavailable Sementi, Ada Irving Attending Unavaila ble Le, Tang Referring Unavailable Koram, Shayla Ana M Attending Unavailable Rosales, Alejandro Primary Care Unavailable Abena Back Attending Unavailable Rosales, Alejandro Primary Care Unavailable Marc Robbins Attending Unavailable Rosales, Alejandro Referring Unavailable Rosales, Alejandro Primary Care Unavailable Rosales, Alejandro Referring Unavailable Chris Hand Attending Unavailable Rosales, Alejandro Primary Care Unavailable Anu Hernandes Attending Unavailable Rosales, Alejandro Referring Unavailable Rosales, Alejandro Primary Care Unavailable Marc Robbins Attending Unavailable Rosales, Alejandro Referring Unavailable Rosales, Alejandro Primary Care Unavailable Sementi, Allison Referring Unavaila ble Latoya Marie Attending Unavailable Rosales, Alejandro Attending Unavailable Rosales, Alejandro Referring Unavailable Rosales, Alejandro Primary Care Unavailable Rosales, Alejandro Attending Unavailable Rosales, Alejandro Referring Unavailable Rosales, Alejandro Primary Care Unavailable Rosales, Alejandro Attending Unavailable Rosales, Alejandro Referring Unavailable Rosales, Alejandro Primary Care Unavailable Rosales, Alejandro Referring Unavailable Rosales, Alejandro Primary Care Unavailable Rosales, Alejandro Attending Unavailable Rosales, Alejandro Primary Care Unavailable Michelle Paige Attending Unavailable Rosales, Alejandro Referring Unavailable Rosales, Alejandro Primary Care Unavailable Marc Robbins Attending Unavailable Rosales, Alejandro Referring Unavailable Rosales, Alejandro Primary Care Unavailable Marc Kumari Attending Unavailable Rosales, Alejandro Referring Unavailable Rosales, Alejandro Primary Care Unavailable Rosales, Alejandro Referring Unavailable Michelle Paige Attending Unavailable Allergies Allergy Classification Reported Allergen(s) Allergy Type Date of Onset Reaction(s) Facility (20 sources) Codeine Drug Allergy 01-12-2019 Anaphylaxis [facility] (1 source) Codeine Drug Allergy 05-23-2025 [facility] Repository Medications Current Medications Medication Drug Class(es) Dates Sig (Normalized) Sig (Original) acetaminophen 325 mg oral tablet (18 sources) Start: 11-25-2024 take 2 tablets by mouth three times daily as needed for pain Acetaminophen 325 mg Tablet Active 650 mg PO THREE TIMES A DAY as needed for fever/pain 1 November 25, 2024 12:00am Complies with drug therapy Start: 11-08-2024 End: 11-11-2024 take 1 tablet by mouth every four hours as needed Acetaminophen (TYLENOL) tablet 325 mg [id number] 200 actuat albuterol 0.09 mg/actuat metered dose inhaler (20 sources) beta2-Adrenergic Agonist Start: 11-25-2024 take 2 puff(s) by inhalation every four hours as needed for wheezing Albuterol Sulfate 90 mcg/actuation Hfa Aerosol Inhaler Active 2 NMA INHALATION Q4H as needed for Wheezing 1 November 25, 2024 12:00am 2 puffs every 4 hours as needed for wheezing/shortness of breath Complies with drug therapy Start: 11-08-2024 End: 11-11-2024 take 2 puff(s) by inhalation every six hours as needed for wheezing 2 puff, Inhalation, EVERY 6 HOURS NEEDED, Starting on Fri11/08/24 at 2017, Until Fri11/11/24 at 1658, Shortness of Breath, Wheezing, Wait at least one(1) full minute between inhalations Start: 09-14-2021 take 1 puff(s) by in halation every four hours Albuterol Sulfate (Proventil Hfa) 90 mcg/actuation HFA aerosol inhaler Active 2 PUFF INHALATION Q4H September 14, 2021 3:41pm Start: 09-14-2021 take 1 puff(s) by in halation every four hours Albuterol Sulfate (Proventil Hfa) 90 mcg/actuation HFA aerosol inhaler Active 2 PUFF INHALATION Q4H September 14, 2021 1:00am Start: 12-09-2018 End: 11-25-2024 Albuterol Sulfate (Proventil Hfa) 90 mcg/actuation HFA aerosol inhaler Discontinued 2 NMA INHALATION Q4H as needed for shortness of breath or wheezing September 14, 2021 1:00am November 11, 2024 5:58pm take 2 puff(s) by in halation every four hours as needed Albuterol (Proventil HFA) 108 (90 Base) MCG/ACT Aero Soln inhaler Inhale 2 puffs every 4 hours as needed for Shortness of Breath. Active Albuterol Sulfate (Proventil Hfa) 90 mcg/actuation HFA aerosol inhaler (20 sources) Start: 12-09-2018 take 1 puff(s) by [...] Vitamin C Active 1 CAP PO DAILY February 11th, 2022 1:00am colchicine 0.6 mg oral table t (19 sources) Start: 09-30-2024 Colchicine 0.6 mg capsule Active mg PO September 30, 2024 1:00am Start: 09-30-2024 End: 12-17-2024 take 1 capsule by mouth twice daily as needed Colchicine 0.6 mg capsule Discontinued 0.6 mg PO TWICE DAILY NEEDED September 30, 2024 1:00am December 17, 2024 10:52am gout flare Colchicine 0.6 M G tablet Take by mouth. Take 2 tablets as soon as possible with gout flare. Then take 1 tablet one hour later as directed. Active dapagliflozin 10 mg oral tablet (20 sources) Sodium-Glucose Cotransporter 2 Inhibitor Start: 04-15-2022 End: 11-25-2024 take 1 tablet by mouth once daily Dapagliflozin Propanediol (Farxiga) 10 mg tablet Active 10 mg PO DAILY 30 November 25, 2024 11:25am dm Complies with drug therapy fluticasone propionate 0.05 mg/actuat metered dose nasal spray (20 sources) Corticosteroid Start: 11-11-2024 End: 11-25-2024 Fluticasone Propionate 50 mcg/actuation spray,suspension Active 2 NMA INTRANASAL DAILY November 25, 2024 11:25am congestion Complies with drug therapy Start: 11-09-2024 End: 11-11-2024 take 2 spray(s) [...] RELIEF) 50 mcg/actuation nasal spray Use 1 [place] in each nostril once daily. Active Yrwjrahppus-Vjgyxgypf-Zboktb (Trelegy Ellipta) 200-62.5-25 MCG/ACT Aerosol Powder, breath activated (1 source) Fluticasone-Umec lidin-Vilant (Trelegy Ellipta) 200-62.5-25 MCG/ACT Aerosol Powder, breath activated Inhale 1 Inhalation daily. Active Qfziyanemyk-Sfhnzjmxw-Maiwmm er (20 sources) Start: 11-26-19 Lcknjsuqkyb-Swskwvkht-Hgqzpp er (Trelegy Ellipta) 200-62.5-25 mcg blister with device Active 1 NMA INHALATION DAILY 1 November 25, 2024 11:25am sob Complies with drug therapy Start: 11-25-2024 Start: 11-25-2024 Fluticasone-Um eclidin-Vilanter (Trelegy Ellipta) 200-62.5-25 mcg blister with device Active 1 NMA INHALATION DAILY 1 November 25, 2024 11:25am sob Start: 11-25-2024 Fluticasone-Um eclidin-Vilanter (Trelegy Ellipta) 200-62.5-25 mcg blister with device Active 1 NMA INHALATION DAILY November 25, 2024 11:25am Start: 11-11-2024 End: 11-25-2024 Rgohewlmrzd-Eqpmeshza-Ocbkzf er (Trelegy Ellipta) 200-62.5-25 mcg blister with device Discontinued 1 NMA INHALATION DAILY November 11, 2024 12:00am November 25, 2024 11:25am sob Start: 11-11-2024 End: 11-25-2024 Ckeptxljcol-Kwgrxafpt-Ogbbda er (Trelegy Ellipta) 200-62.5-25 mcg blister with [...] 2 Puffs as instructed twice daily. Active furosemide 40 mg oral tablet (20 sources) Loop Diuretic Start: 03-25-2025 take 1 tablet by mouth once daily Furosemide 40 mg tablet Active 40 mg PO daily March 25, 2025 12:00am Complies with drug therapy Start: 09-05-2021 End: 11-25-2024 take 1 tablet by mouth twice daily Furosemide 40 mg tablet Discontinued 40 mg PO TWICE A DAY September 14, 2021 3:33pm November 25, 2024 11:22am fluid retention Start: 09-05-2021 End: 09-14-2021 Furosemide 40 mg tablet Disc ontinued NMA PO September 05, 2021 1:00am September 14, 2021 3:42pm furOSEmide 40 MG tablet Take by mouth. Take 1 tablet one to two times daily as needed as directed Active ipratropium bromide 0.021 mg/actuat metered dose nasal spray (20 sources) Anticholinergic Start: 03-31-2025 Ipratropium Br omide 21 mcg (0.03 %) spray,non-aerosol Active 1 - 2 NMA INTRANASAL EVERY 6 HOURS as needed March 31, 2025 12:00am Complies with drug therapy Start: 11-11-2024 End: 11-25-2024 Ipratropium [place] 21 mcg ( 0.03 %) spray,non-aerosol Discontinued 1 - 2 NMA INTRANASAL EVERY 6 HOURS NEEDED as needed for rhinitis November 11, 2024 12:00am November 25, 2024 11:24am Start: 09-14-2021 Ipratropium Br omide Active 2 SPRAY INTRANASAL 2 to 3 times per day September 14, 2021 1:00am administer into each nostril Start: 12-09-2018 End: 12-09-2018 Ipratropium [place] 0.03 % s maribeth,non-aerosol Discontinued 2 NMA INTRANASAL EVERY 6 HOURS as needed for allergy symptoms December 09, 2018 12:00am December 09, 2018 1:28pm Start: 12-09-2018 End: 12-09-2018 Ipratropium [place] Disconti nued 2 SPRAY INTRANASAL EVERY 6 HOURS December 09, 2018 12:00am December 09, 2018 1:28pm Ipratropium [place] 21 mcg (0.03 %) spray,non-aerosol (1 source) Start: 03-31-2025 Ipratropium Br omide 21 mcg (0.03 %) spray,non-aerosol Active 1 - 2 NMA INTRANASAL EVERY 6 HOURS as needed March 31, 2025 12:00am iron carbonyl 15 mg chewable tablet (9 sources) Start: 09-14-2021 take 1 tablet by mouth once daily Iron, Carbonyl (Iron Chews) 15 mg tablet,chewable Active 15 MG PO DAILY September 14, 2021 1:00am levothyroxine sodium 0.088 mg oral tablet (20 sources) l-Thyro xine Start: 08-15-2021 End: 11-25-2024 Levothyroxine (Euthyrox) 88 mcg Tablet Active 88 ug PO DAILY 30 0 November 25, 2024 11:25am THYROID Take this on an empty stomach and then do not eat or drink for 30 minutes. Complies with drug therapy Start: 12-09-2018 End: 07-24-2021 take 1 tablet by mouth once daily Levothyroxine 75 mcg tablet Discontinued 75 ug PO DAILY December 09, 2018 12:00am July 24, 2021 10:22am take 1 capsule by [facility] once daily Levothyroxine 75 mcg cap Take [...] Sig (Original) apixaban 5 mg oral tablet (20 sources) Factor Xa Inhibitor Start: 11-11-2024 End: 12-07-2024 take 1 tablet by mouth twice daily Apixaban (Eliquis) 5 mg tablet Discontinued 5 mg PO TWICE A DAY 60 0 November 25, 2024 11:25am December 07, 2024 10:20am blood thinner Start: 11-09-2024 End: 12-09-2024 take 1 tablet [...] tablet Discontinued 40 mg PO AT BEDTIME 30 0 November 25, 2024 11:25am December 07, 2024 10:20am cholesterol Start: 09-14-2021 take 40 mg by mouth once daily Atorvastatin Active 40 MG PO DAILY September 14, 2021 1:00am Start: 12-09-2018 End: 07-24-2021 take 1 tablet by mouth once daily Atorvastatin (Lipitor) 40 mg tablet Discontinued 40 mg PO DAILY 03 07December 09, 2018 12:00am July 24, 2021 10:23am 120 actuat budesonide 0.16 mg/actuat / formoterol fumarate 0.0048 mg/actuat / glycopyrrolate 0.009 mg/actuat metered dose inhaler (1 source) Corticosteroid, beta2-Adrenergic Agonist Start: 11-09-2024 End: 11-11-2024 take 2 puff(s) by inhalation twice daily 2 puff, Inhalation, 2 TIMES DAILY, First dose on Fri11/09/24 at 1130, Until Discontinued cefdinir 300 mg oral capsule (15 sources) Cephalosporin Antibacterial Start: 12-19-2024 End: 03-25-2025 take 1 capsule by mouth twice daily Cefdinir 300 mg capsule Discontinued 300 mg PO TWICE A DAY December 19, 2024 12:00am March 25, 2025 3:29pm clopidogrel 300 mg oral tablet (1 source) P2Y12 Platelet Inhibitor Start: 11-08-2024 End: 11-08-2024 take 1 dose by mouth once 300 mg, Oral, ONCE, 1 dose, On Fri11/08/24 at 2100 doxepin hydrochloride 25 mg oral capsule (20 sources) Tricyclic Antidepressant Start: 09-14-2021 End: 01-06-2023 take 1-3 capsules by mouth once daily as needed for sleep Doxepin 25 mg capsule Discontinued 25 mg PO DAILY September 14, 2021 1:00am January 06, 2023 2:40pm Take 1-3 capsules as needed for sleep or itching doxycycline hyclate 100 mg oral tablet (20 sources) Tetracycline-class Drug Start: 12-19-2024 End: 03-25-2025 take 1 tablet by mouth twice daily Doxycycline Hyclate 100 mg tablet Discontinued 100 mg PO TWICE A DAY December 19, 2024 12:00am March 25, 2025 3:29pm Start: 09-30-2024 End: 11-11-2024 take 1 tablet by mouth twice daily Doxycycline Hyclate 100 mg tablet Discontinued 100 mg PO TWICE A DAY September 30, 2024 1:00am November 11, 2024 5:57pm Start: 09-21-2024 End: 09-26-2024 take 1 capsule by mouth twice daily Doxycycline Hyclate 100 mg capsule Discontinued 100 mg PO TWICE A DAY 10 5 0 September 21, 2024 1:00am September 25, 2024 1:00am September 26, 2024 1:13am 0.4 ml enoxaparin sodium 100 mg/ml prefilled [...] prophylaxis ferrous fumarate 324 mg oral tablet (20 sources) Start: 09-05-2021 End: 09-14-2021 take 1 tablet by mouth once daily Ferrous Fumarate 324 mg (106 mg iron) tablet Discontinued 324 mg PO DAILY 90 3 September 05, 2021 1:00am September 14, 2021 3:36pm 1 ml hydrALAZINE hydrochloride 20 mg/ml injection [...] PO EVERY MORNING September 14, 2021 1:00am Teresa 5th, 2023 2:38pm Do not take while on Furosemide Start: 02-20-2017 End: 08-22-2021 take 1 tablet by mouth once daily Indapamide 2.5 MG tablet Discontinued 2.5 mg PO DAILY February 20, 2017 12:00am August 22, 2021 2:03pm BP Insulin lispro (HUMALOG) injection (1 source) Start: 11-08-2024 End: 11-11-2024 Insulin lispro (HUMALOG) injection iohexol (OMNIPAQUE) 350 MG/M L injection 1-171 mL (2 sources) Start: 11-08-2024 End: 11-08-2024 1-171 mL, Intravenous, ONCE, 1 dose, On Fri11/08/24 at 1945, Extravasation Risk, CT Procedure Start: 11-08-2024 End: 11-08-2024 1-171 mL, Intravenous, ONCE, 1 dose, On Fri11/08/24 at 1845, Extravasation Risk, CT Procedure labetalol hydrochloride 5 mg/ml injectable solution (1 [...] over 2 minutes. Telemetry required except for GENERAL MACHINE OPERATOR patients on [address] and 7. For vials: labetalol should be treated as a SINGLE USE VIAL. Discard remaining contents after one use. Labetalol (NORMODYNE) injection 10 mg (1 source) Start: 11-08-2024 End: 11-11-2024 take 10 mg intravenously every hour as needed Labetalol (NORMODYNE) injection 10 mg linagliptin 5 mg oral tablet (19 sources) Dipeptidyl Peptidase 4 Inhibitor Start: 01-06-2023 End: 11-11-2024 take 1 tablet by mouth once daily Linagliptin (Tradjenta) 5 mg tablet Discontinued 5 mg PO DAILY January 06, 2023 12:00am November 11, 2024 5:55pm metFORMIN hydrochloride 500 mg oral tablet (19 sources) Biguanide Start: 01-06-2023 End: 11-11-2024 take [...] 15, 2021 11:40am August 22, 2021 4:45pm PREP 500 mg PO Take 2 (two) tablets at 1300, 1500, 2300 mirtazapine 15 mg oral tablet (20 sources) Start: 09-05-2021 End: 01-06-2023 Mirtazapine 15 mg tablet Discontinued NMA PO September 05, 2021 1:00am January 06, 2023 2:39pm Start: 09-05-2021 End: 01-06-2023 Mirtazapine Discontinued EAC H PO September 05, 2021 1:00am January 06, 2023 2:39pm neomycin sulfate 500 mg oral tablet (20 sources) Aminoglycoside Antibacterial Start: 08-13-2021 End: 08-22-2021 Neomycin 500 mg tablet Discontinued 500 mg PO .COMPLEX 6 0 August 13, 2021 1:00am August 22, 2021 4:45pm pre-op antibiotics Take two (2) 500 mg tablets PO at 1300, 1500, 2300 pantoprazole 40 mg delayed release oral tablet (20 sources) Proton Pump Inhibitor Start: 08-06-2021 End: 01-06-2023 take 1 tablet by mouth at bedtime Pantoprazole 40 mg tablet,delayed release (DR/EC) Discontinued 40 mg PO AT BEDTIME August 15, 2021 11:40am January 06, 2023 2:39pm GERD Polyethylene glycol (MIRALAX) packet 17 g (1 [...] 24, 2021 1:00am August 22, 2021 4:45pm POTASSIUM sacubitril 24 mg / valsartan 26 mg [...] Fri11/08/24 at 2014, Until Fri11/09/24 at 2049 Start: 11-08-2024 End: 11-08-2024 1-100 mL, Intravenous, ONCE NEEDED, 1 dose, Starting on Fri11/08/24 at 1933, Until Fri11/08/24 at 1933, Flush, CT Procedure Start: 11-08-2024 End: 11-08-2024 1-100 mL, Intravenous, ONCE NEEDED, 1 dose, Starting on Fri11/08/24 at 1838, Until Fri11/08/24 at 1838, Flush, CT Procedure spironolactone 50 mg oral tablet (20 sources) Aldosterone Antagonist Start: 02-20-2017 End: 12-09-2018 [...] 28, 2019 12:00am November 11, 2024 5:54pm BLOOD THINNER Start: 12-09-2018 End: 11-11-2024 take 1 tablet by mouth every other day Warfarin 5 mg tablet Discontinued 5 mg PO EVERY OTHER DAY December 09, 2018 1:29pm November 11, 2024 5:54pm BLOOD THINNER Start: 12-09-2018 End: 12-09-2018 take 1 tablet [...] nightly, previous strokes, obesity, and former smoker. Cancer of colon (20 sources) Malignant tumor [...] 11/19/2024 was 4.6.No evidence of disease clinically. 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 Tumor invades pericolonic fat, LN 22 negative. On observation.No evidence of disease.Increasing CEA level 6.2 on 10/07/2022.CEA 8 on 10/16/2022. PET/CT shows activity in the left iliac bone and mesentery suggestive of metastatic disease, post surgery site. MRI brain shows chronic vascular changes, calcification/gliosis in the R cerebellum.Bone scan is negative. CT head shows encephalomalacia. CEA on 11/19/2024 was 4.6.Found to have Mediastinal nodes on CT done on 02/09/2025. R/O metastatic colon cancer. 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 Tumor invades pericolonic fat, LN 22 negative. On observation.No evidence of disease.Increasing CEA level 6.2 on 10/07/2022.CEA 8 on 10/16/2022. PET/CT shows activity in the left iliac bone and mesentery suggestive of metastatic disease, post surgery site. MRI brain shows chronic vascular changes, calcification/gliosis in the R cerebellum.Bone scan is negative. CT head shows encephalomalacia. CEA on 11/19/2024 was 4.6.Found to have Mediastinal nodes on CT done on 02/09/2025. R/O metastatic colon cancer.Comes for follow up.PET/CT on 04/26/2025 reviewed, no activity to suggest malignancy. Cancer of colon (10 sources) History of malignant neoplasm of colon; Translations: [Personal history of other malignant neoplasm of large intestine] 04-19-2025 Episodic Cardiac and circulatory congenital anomalies (20 sources) Patent foramen ovale; Translations: [Atrial septal defect] Onset: 01-10-2025 12-09-2018 Chronic Cardiac dysrhythmias (20 sources) Paroxysmal atrial fibrillation; Translations: [Paroxysmal atrial fibrillation] Onset: 11-26-2024 08-15-2021 Chronic Comment on above: Newly diagnosed afte r most recent stroke on 11/08/2024. Cardiac dysrhythmias (20 sources) Bradycardia; Translations: [Bradycardia, unspecified] Onset: 04-19-2025 11-26-2024 Episodic Chronic obstructive pulmonary disease and bronchiectasis (20 sources) Chronic obstructive lung disease; Translations: [Chronic obstructive pulmonary disease, unspecified] Onset: 11-26-2024 11-26-2024 Chronic Comment on above: INHALER PRN- RARELY USED Complications of surgical procedures or medical care (20 sources) Postoperative ileus; Translations: [Other postprocedural complications and disorders of digestive system] 08-23-2021 Episodic Congestive heart failure; nonhypertensive (20 sources) Chronic combined systolic and diastolic heart failure; Translations: [Chronic combined systolic (congestive) and diastolic (congestive) heart failure] Onset: 11-26-2024 12-09-2018 Chronic Deficiency and other anemia (20 sources) Anemia; Translations: [Anemia, unspecified] 08-15-2021 Episodic Comment on above: RECENT TRANSFUSION Diabetes mellitus with complications (4 sources) Hyperglycemia due to type 2 diabetes mellitus; Translations: [Type 2 diabetes mellitus with hyperglycemia] Onset: 11-09-2024 11-09-2024 Chronic Diabetes mellitus without complication (20 sources) Diabetes mellitus; Translations: [Type 2 diabetes mellitus without complications] Onset: 11-26-2024 12-04-2024 Chronic Comment on above: Well-controlled with hemoglobin A1c less than 7% at admission to the emergency department. Disorders of lipid metabolism (10 sources) Dyslipidemia; Translations: [Hyperlipidemia, unspecified] 04-19-2025 Chronic Essential hypertension (20 sources) Essential hypertension; Translations: [Essential (primary) hypertension] Onset: 11-26-2024 12-09-2018 Chronic Comment on above: NO MEDS, PCP TOOK OF MEDS Fluid and electrolyte disorders (20 sources) Hyponatremia; Translations: [Hypo-osmolality and hyponatremia] 08-23-2021 Episodic Comment on above: takes Potassium at h ome. Gout and other crystal arthropathies (20 sources) Gout; Translations: [Gout, unspecified] Onset: 11-26-2024 12-04-2024 Chronic Heart valve disorders (20 sources) Mitral valve stenosis; Translations: [Rheumatic mitral stenosis] Onset: 11-26-2024 12-04-2024 Chronic Comment on above: Moderate on an echoc ardiogram done at [facility] in November 2024. Late effects of cerebrovascular disease (1 source) Aphasia following cerebral infarction; Translations: [Aphasia following cerebral infarction] Onset: 05-02-2025 Chronic Lymphadenitis (19 sources) Mediastinal lymphadenopathy; Translations: [Localized enlarged lymph nodes] Onset: 04-21-2025 03-25-2025 Episodic Comment on above: R/o metastatic colon cancer. 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 Her most recent stroke involve the M1 segment of the left middle cerebral artery on 11/08/2024. She has been left with a mixed aphasia which she is coping with reasonably well. She is able to express ideas with difficulty. She is able to follow some direction. Word finding remains an issue.Patient remains quite functional with regard to the use of arms and legs. Face appears to be intact as well. Other circulatory disease (10 sources) History of cerebrovascular accident; Translations: [Personal history of transient ischemic attack (TIA), and cerebral infarction without residual deficits] 04-19-2025 Episodic Other circulatory disease (1 source) Personal history of transient ischemic attack (TIA), and cerebral infarction without residual deficits; Translations: [Personal history of transient ischemic attack (TIA), and cerebral infarction without residual deficits] Onset: 05-12-2025 Episodic Other connective tissue disease (1 source) Pain in left foot; Translations: [Pain in left foot] 04-06-2021 Episodic Other injuries and conditions due to external causes (20 sources) Contusion; Translations: [Other injury of unspecified body region, initial encounter] 09-21-2024 Episodic Comment on above: Left ring finger Other lower respiratory disease (20 sources) Hypoxia; Translations: [Hypoxemia] 11-17-2024 Episodic Comment on above: Only when sleeping. Suspect MURIEL. Other lower respiratory disease (20 sources) Dyspnea; Translations: [Shortness of breath] 12-24-2024 Episodic Other lower respiratory disease (14 sources) Restrictive lung disease; Translations: [Other disorders of lung] 01-20-2025 Episodic Other lower respiratory disease (2 sources) Shortness of breath; Translations: [Shortness of breath] Onset: 03-31-2025 Episodic Other nervous system disorders (20 sources) Global aphasia; Translations: [Aphasia] 11-11-2024 Chronic Other nervous system disorders (2 sources) Aphasia; Translations: [Aphasia] Onset: 11-26-2024 Chronic Other non-traumatic joint disorders (20 sources) Pain in wrist; Translations: [Pain in right wrist] 12-17-2024 Episodic Other non-traumatic joint disorders (5 sources) Pain of right wrist; Translations: [Pain in right wrist] 12-23-2024 Episodic Other non-traumatic joint disorders (2 sources) Pain in right wrist; Translations: [Pain in right wrist] Onset: 05-04-2025 Episodic Other nutritional; endocrine; and metabolic disorders (11 sources) Body mass index 40+ - severely obese; Translations: [Morbid (severe) obesity due to excess calories] 08-21-2021 Chronic Other nutritional; endocrine; and metabolic disorders (20 sources) Obese class I; Translations: [Class 1 obesity] 11-26-2024 Chronic Other nutritional; endocrine; and metabolic disorders (20 sources) Hypophosphatemia; Translations: [Other disorders of phosphorus metabolism] 12-04-2024 Chronic Other nutritional; endocrine; and metabolic disorders (1 source) Other disorders of phosphorus metabolism; Translations: [Other disorders of phosphorus metabolism] Onset: 11-26-2024 Chronic Other nutritional; endocrine; and metabolic disorders (20 sources) H/O: diabetes mellitus; Translations: [Personal history of other endocrine, nutritional and metabolic disease] 12-17-2024 Episodic Peripheral and visceral atherosclerosis (20 sources) Peripheral vascular disease, unspecified; Translations: [Peripheral arterial disease] Onset: 09-08-2024 07-24-2021 Chronic Pulmonary heart disease (20 sources) Pulmonary hypertension; Translations: [Pulmonary hypertension, unspecified] Onset: 05-12-2025 12-17-2024 Chronic Comment on above: On an echocardiogram done at [facility] in November 2024 the right ventricular systolic pressure was estimated at 45 which is up from 31 in 2019. She now has mitral stenosis which is moderate and mild regurgitation Residual codes; unclassified (20 sources) Finding related to sleep; Translations: [Sleep apnea, unspecified] 11-17-2024 Chronic Comment on above: Abnormal overnight t rending pulse ox for 1425. Plan overnight sleep study at discharge. Residual codes; unclassified (20 sources) Obstructive sleep apnea syndrome; Translations: [Obstructive sleep apnea (adult) (pediatric)] 12-17-2024 Chronic Comment on above: AHI is 5.1 using AAS M 1B criteria, using AASM 1A criteria AHI is 16.8 from November 2024 Residual codes; unclassified (1 source) Obstructive sleep apnea (adult) (pediatric); Translations: [Obstructive sleep apnea (adult) (pediatric)] Onset: 04-21-2025 Chronic Residual codes; unclassified (1 source) Hypersomnia, unspecified; Translations: [Hypersomnia, unspecified] Onset: 11-30-2024 Chronic Residual codes; unclassified (1 source) Sleep apnea, unspecified; Translations: [Sleep apnea, unspecified] Onset: 11-26-2024 Chronic Residual codes; unclassified (20 sources) History of partial resection of colon; Translations: [Acquired absence of other specified parts of digestive tract] 09-02-2021 Episodic Residual codes; unclassified (1 source) Pain; Translations: [Pain, unspecified] 09-21-2024 Episodic Residual codes; unclassified (20 sources) Noncompliance with medication regimen; Translations: [Noncompliance with medication regimen] 12-04-2024 Episodic Comment on above: Subtherapeutic INR a t admission on warfarin and elevated TSH to 30 despite being on levothyroxine 88 mcg daily. Sprains and strains (20 sources) Sprain of foot; Translations: [Unspecified sprain of right foot, initial encounter] 02-21-2017 Episodic Thyroid disorders (20 sources) Hypothyroidism; Translations: [Hypothyroidism, unspecified] Onset: 11-26-2024 08-19-2021 Chronic Unclassified (11 sources) pt to make appt, after DC Unclassified (11 sources) Bring ID, Insurance Card and list of medications Unclassified (11 sources) referral ent. office will call to make appointment. if you don't hear from them in 1 week call the office Unclassified (11 sources) call office to make a follow up appointment for you colonoscopy Unclassified (20 sources) Right wrist pain; Translations: [M25.531 - Pain in right wrist] Unclassified (2 sources) Longstanding persistent atrial fibrillation; Translations: [Longstanding persistent atrial fibrillation] Onset: 11-26-2024 Unclassified (1 source) Obesity, class 1; Translations: [Obesity, class 1] Onset: 11-26-2024 Unclassified (1 source) Patient's other noncompliance with medication regimen for other reason; Translations: [Patient's other noncompliance with medication regimen for other reason] Onset: 11-26-2024 Varicose veins of lower extremity (10 sources) Varicose veins of lower limb co-occurrent with edema; Translations: [Varicose veins of bilateral lower extremities with other complications] 04-19-2025 Episodic Past or Other Problems Problem Classification Problem Date Documented Date Episodic/Chronic Blindness and vision defects (20 sources) Visual field defect; Translations: [Unspecified visual field defects] Onset: 11-26-2024 11-17-2024 Episodic Comment on above: No vision in the R e ye on PE. Malaise and fatigue (20 sources) Right hemiparesis; Translations: [Weakness] Onset: 11-26-2024 12-10-2024 Episodic Comment on above: This has improved si gnificantly; patient completed inpatient rehab. There is right upper extremity ataxia noted on today's exam but no significant weakness. 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] Onset: 10-02-2024 Episodic Other connective tissue disease (1 source) Other specified soft tissue disorders; Translations: [Other specified soft tissue disorders] Onset: 11-16-2024 Episodic Other lower respiratory disease (1 source) Other disorders of lung; Translations: [Other disorders of lung] Onset: 02-17-2025 Episodic Other lower respiratory disease (1 source) Hypoxemia; Translations: [Hypoxemia] Onset: 11-26-2024 Episodic Other screening for suspected conditions (not mental disorders or infectious disease) (20 sources) Raised TSH level; Translations: [Other specified abnormal findings of blood chemistry] Onset: 10-06-2024 08-06-2021 Episodic Comment on above: INR was only 1.6 at presentation to the emergency department with stroke symptoms. Transition to Eliquis at [facility]. Residual codes; unclassified (6 sources) Acquired absence of other specified parts of digestive tract; Translations: [Other postprocedural status] Onset: 11-26-2024 Episodic Residual codes; unclassified (1 source) Pain, unspecified; Translations: [Pain, unspecified] Onset: 09-21-2024 Episodic Results Test Name Value Interpretation Reference Range Facility Stress Reporton 05-12-2025 Stress Report Normal [facility] Oncology Visit Reporton 10-0 Oncology Visit Report Normal [facility] PET/CT Tumor Base -Thigh Sub son 04-26-2025 PET/CT Tumor Base -Thigh Subs Normal [facility] Carcinoembryonic Antigenon 0 04-23-2025 CEA 5.4 ng/mL High 0.0-4.7 [facility] Comment on above: Result Comment: Nons mokers <3.9 Smokers <5.6[employer] Electrochemiluminescence Immunoassay(ECLIA)Values obtained with different assay methods or kitscannot be used interchangeably. Results cannot beinterpreted as absolute evidence of the presence orabsence of malignant disease.Performed at: [facility] [address] [id number] Director: Taiwo Quintero PhD, Phone: [phone] Performed By: #### L 3100.2300 ####[facility] [address] [place], [address] SP/HP.SPREEVon 04-22-2025 SP/HP.SPREEV Normal [facility] Oncology Visit Reporton 04-04 Oncology Visit Report Normal [facility] Serum or plasma carcinoembry onic antigen measurement (mass/volume)Ordered By: Marc Robbins on 04-21-2025 Carcinoembryonic Ag [Mass/Vol] 5.4 ng/mL High 0.0-4.7 [facility] Comment on above: Nonsmokers <3.9 Smok ers <5.6[employer] Electrochemiluminescence Immunoassay(ECLIA)Values obtained with different assay methods or kitscannot be used interchangeably. Results cannot beinterpreted as absolute evidence of the presence orabsence of malignant disease.Performed at: [facility] [address] [id number] Director: Taiwo Quintero PhD, Phone: [phone] Anion gap in Serum or Plasma Ordered By: Alejandro Rosales on 04-19-2025 Anion gap [Moles/Vol] 13 mmol/L 5-15 [facility] BUN/creatinine ratioOrdered By: Alejandro Rosales on 04-19-2025 Urea nitrogen/Creatinine [Mass ratio] 23.2 mg/mg High 10-20 [facility] Bilirubin, totalOrdered By: Alejandro Rosales on 04-19-2025 Bilirubin [Mass/Vol] 1.29 mg/dL 0.00-1.30 [facility] CBC-Complete Blood Cnt No Di ffon 04-19-2025 Erythrocyte distribution width (RBC) [Ratio] 16.9 % High 11.6-14.6 [facility] Comment on above: Order Comment: Order Date: 09/28/24Order Info: [id number] - CBC Performed By: #### L 500.4050, L501.5200, L502.0250, L100.0500, L300.3900, L501.9985 ####[facility] [address] [place], [address] Hematocrit (Bld) [Volume fraction] 41.0 % Normal 37-47 [facility] Comment on above: Order Comment: Order Date: 09/28/24Order Info: [id number] - CBC Performed By: #### L 500.4050, L501.5200, L502.0250, L100.0500, L300.3900, L501.9985 ####[facility] [address] [facility] [place], [address] Hemoglobin (Bld) [Mass/Vol] 12.4 g/dL Normal 12.0-15.0 [facility] Comment on above: Order Comment: Order Date: 09/28/24Order Info: [id number] - CBC Performed By: #### L 500.4050, L501.5200, L502.0250, L100.0500, L300.3900, L501.9985 ####[facility] [address] [facility] [place], [address] MCH (RBC) [Entitic mass] 26.7 pg Low 27.0-32.0 [facility] Comment on above: Order Comment: Order Date: 09/28/24Order Info: [id number] - CBC Performed By: #### L 500.4050, L501.5200, L502.0250, L100.0500, L300.3900, L501.9985 ####[facility] [address] [place], [address] MCHC (RBC) [Mass/Vol] 30.2 g/dL Low 32-36 [facility] Comment on above: Order Comment: Order Date: 09/28/24Order Info: [id number] - CBC Performed By: #### L 500.4050, L501.5200, L502.0250, L100.0500, L300.3900, L501.9985 ####[facility] [address] [place], [address] MCV (RBC) [Entitic vol] 88.4 fL Normal 81-99 [facility] Comment on above: Order Comment: Order Date: 09/28/24Order Info: [id number] - CBC Performed By: #### L 500.4050, L501.5200, L502.0250, L100.0500, L300.3900, L501.9985 ####[facility] [address] [place], [address] Platelet mean volume (Bld) [Entitic vol] 10.3 fL Normal 6.2-12.0 [facility] Comment on above: Order Comment: Order Date: 09/28/24Order Info: [id number] - CBC Performed By: #### L 500.4050, L501.5200, L502.0250, L100.0500, L300.3900, L501.9985 ####[facility] [address] [place], [address] Platelets (Bld) [#/Vol] 184 10*3/uL Normal 150-450 [facility] Comment on above: Order Comment: Order Date: 09/28/24Order Info: [id number] - CBC Performed By: #### L 500.4050, L501.5200, L502.0250, L100.0500, L300.3900, L501.9985 ####[facility] [address] [place], [address] RBC (Bld) [#/Vol] 4.64 10*6/uL Normal 4.2-5.[address] [facility] Comment on above: Order Comment: Order Date: 09/28/24Order Info: [id number] - CBC Performed By: #### L 500.4050, L501.5200, L502.0250, L100.0500, L300.3900, L501.9985 ####[facility] [address] [place], [address] RDW SD 53.1 fl High 35.1-43.9 [facility] Comment on above: Order Comment: Order Date: 09/28/24Order Info: [id number] - CBC Performed By: #### L 500.4050, L501.5200, L502.0250, L100.0500, L300.3900, L501.9985 ####[facility] [address] [place], [address] WBC (Bld) [#/Vol] 8.2 10*3/uL Normal 4.4-11.[address] [facility] Comment on above: Order Comment: Order Date: 09/28/24Order Info: [id number] - CBC Performed By: #### L 500.4050, L501.5200, L502.0250, L100.0500, L300.3900, L501.9985 ####[facility] [address] [place], [place], [id number] Carbon dioxide, total [Moles /volume] in Central venous bloodOrdered By: Alejandro Rosales on 04-19-2025 CO2 [Moles/Vol] 22.6 mmol/L 21.0-32.0 [facility] Cardiology Visit Reporton Cardiology Visit Report Normal [facility] Chloride assayOrdered By: Ike Rosales on 04-19-2025 Chloride [Moles/Vol] 100 mmol/L 98-108 [facility] Comprehensive Metabolic Prof ilon 04-19-2025 Albumin [Mass/Vol] 4.1 g/dL Normal 3.4-4.[address] [facility] Comment on above: Order Comment: Order Date: 09/28/24Order Info: [id number] - CMPOrder Info: [id number] - MGOrder Info: [id number] - TSHstanding orderstanding order Performed By: #### L 500.4050, L501.5200, L502.0250, L100.0500, L300.3900, L501.9985 ####[facility] [address] [place], [address] Albumin/Globulin [Mass ratio] 1.2 {ratio} Normal 0.9-2.4 [facility] Comment on above: Order Comment: Order Date: 09/28/24Order Info: [id number] - CMPOrder Info: [id number] - MGOrder Info: [id number] - TSHstanding orderstanding order Performed By: #### L 500.4050, L501.5200, L502.0250, L100.0500, L300.3900, L501.9985 ####[facility] [address] [place], [address] ALK PHOS 139 U/L High 35-104 [facility] Comment on above: Order Comment: Order Date: 09/28/24Order Info: [id number] - CMPOrder Info: [id number] - MGOrder Info: 6-3 - TSHstanding orderstanding order Performed By: #### L 500.4050, L501.5200, L502.0250, L100.0500, L300.3900, L501.9985 ####[facility] [address] [place], [address] ALT [Catalytic activity/Vol] 20 U/L Normal <=34 [facility] Comment on above: Order Comment: Order Date: 09/28/24Order Info: [id number] - CMPOrder Info: [id number] - MGOrder Info: [id number] - TSHstanding orderstanding order Performed By: #### L 500.4050, L501.5200, L502.0250, L100.0500, L300.3900, L501.9985 ####[facility] [address] [place], [address] AST [Catalytic activity/Vol] 25 U/L Normal <=31 [facility] Comment on above: Order Comment: Order Date: 09/28/24Order Info: [id number] - CMPOrder Info: [id number] - MGOrder Info: [id number] - TSHstanding orderstanding order Performed By: #### L 500.4050, L501.5200, L502.0250, L100.0500, L300.3900, L501.9985 ####[facility] [address] [place], [address] Bilirubin [Mass/Vol] 1.29 mg/dL Normal 0.00-1.30 [facility] Comment on above: Order Comment: Order Date: 09/28/24Order Info: [id number]- - CMPOrder Info: - MGOrder Info: [id number] - TSHstanding orderstanding order Performed By: #### L 500.4050, L501.5200, L502.0250, L100.0500, L300.3900, L501.9985 ####[facility] [address] [place], [place], [phone] BUN/CRE 23.2 RATIO High 10-20 [facility] Comment on above: Order Comment: Order Date: 09/28/24Order Info: [id number] - CMPOrder Info: - MGOrder Info: [id number] - TSHstanding orderstanding order Performed By: #### L 500.4050, L501.5200, L502.0250, L100.0500, L300.3900, L501.9985 ####[facility] [address] [place], [place], [phone] Calcium [Mass/Vol] 9.7 mg/dL Normal 7.6-11.[address] [facility] Comment on above: Order Comment: Order Date: 09/28/24Order Info: [id number] - CMPOrder Info: [id number] - MGOrder Info: [id number] - TSHstanding orderstanding order Performed By: #### L 500.4050, L501.5200, L502.0250, L100.0500, L300.3900, L501.9985 ####[facility] [address] [place], [address] Chloride [Moles/Vol] 100 mmol/L Normal 98-108 [facility] Comment on above: Order Comment: Order Date: 09/28/24Order Info: [id number] - CMPOrder Info: [id number] - MGOrder Info: [id number] - TSHstanding orderstanding order Performed By: #### L 500.4050, L501.5200, L502.0250, L100.0500, L300.3900, L501.9985 ####[facility] [address] [place], [address] CO2 [Moles/Vol] 22.6 mmol/L Normal 21.0-32.0 [facility] Comment on above: Order Comment: Order Date: 09/28/24Order Info: [id number] - CMPOrder Info: - MGOrder Info: [id number] - TSHstanding orderstanding order Performed By: #### L 500.4050, L501.5200, L502.0250, L100.0500, L300.3900, L501.9985 ####[facility] [address] [place], [address] Creatinine [Mass/Vol] 0.96 mg/dL Normal 0.70-1.20 [facility] Comment on above: Order Comment: Order Date: 09/28/24Order Info: [id number] - CMPOrder Info: [id number] - MGOrder Info: [id number] - TSHstanding orderstanding order Performed By: #### L 500.4050, L501.5200, L502.0250, L100.0500, L300.3900, L501.9985 ####[facility] [address] [place], [address] GAP 13 Normal 5-15 [facility] Comment on above: Order Comment: Order Date: 09/28/24Order Info: [id number] - CMPOrder Info: [id number] - MGOrder Info: 3 - TSHstanding orderstanding order Performed By: #### L 500.4050, L501.5200, L502.0250, L100.0500, L300.3900, L501.9985 ####[facility] [address] [place], [address] GFR/1.73 sq M.predicted among non-blacks MDRD (S/P/Bld) [Vol rate/Area] 63 mL/min/{1.73_m2} Normal >60 [facility] Comment on above: Order Comment: Order Date: 09/28/24Order Info: [id number] - CMPOrder Info: [id number] - MGOrder Info: [id number] - TSHstanding orderstanding order Result Comment: mL/m in/1.73m2 CKD-EPI Creatinine Equation (2020) Performed By: #### L 500.4050, L501.5200, L502.0250, L100.0500, L300.3900, L501.9985 ####[facility] [address] [place], [address] Globulin (S) [Mass/Vol] 3.5 g/dL Normal 2.2-4.2 [facility] Comment on above: Order Comment: Order Date: 09/28/24Order Info: [id number] - CMPOrder Info: [id number] - MGOrder Info: 3 - TSHstanding orderstanding order Performed By: #### L 500.4050, L501.5200, L502.0250, L100.0500, L300.3900, L501.9985 ####[facility] [address] [place], [address] Glucose [Mass/Vol] 114 mg/dL High 70-[address] [facility] Comment on above: Order Comment: Order Date: 09/28/24Order Info: [id number] - CMPOrder Info: [id number] - MGOrder Info: 3 - TSHstanding orderstanding order Performed By: #### L 500.4050, L501.5200, L502.0250, L100.0500, L300.3900, L501.9985 ####[facility] [address] [place], [address] Potassium [Moles/Vol] 4.2 mmol/L Normal 3.3-5.1 [facility] Comment on above: Order Comment: Order Date: 09/28/24Order Info: [id number] - CMPOrder Info: [id number] - MGOrder Info: [id number] - TSHstanding orderstanding order Performed By: #### L 500.4050, L501.5200, L502.0250, L100.0500, L300.3900, L501.9985 ####[facility] [address] [place], [address] Sodium [Moles/Vol] 136 mmol/L Normal 133-[address] [facility] Comment on above: Order Comment: Order Date: 09/28/24Order Info: [id number] - CMPOrder Info: [id number] - MGOrder Info: 6-3 - TSHstanding orderstanding order Performed By: #### L 500.4050, L501.5200, L502.0250, L100.0500, L300.3900, L501.9985 ####[facility] [address] [place], [address] T PROT 7.5 g/dL Normal 5.9-8.4 [facility] Comment on above: Order Comment: Order Date: 09/28/24Order Info: [id number] - CMPOrder Info: [id number] - MGOrder Info: 3016-3 - TSHstanding orderstanding order Performed By: #### L 500.4050, L501.5200, L502.0250, L100.0500, L300.3900, L501.9985 ####[facility] [address] [place], [address] Urea nitrogen [Mass/Vol] 22 mg/dL High 4-19 [facility] Comment on above: Order Comment: Order Date: 09/28/24Order Info: [id number] - CMPOrder Info: [id number] - MGOrder Info: 3016-3 - TSHstanding orderstanding order Performed By: #### L 500.4050, L501.5200, L502.0250, L100.0500, L300.3900, L501.9985 ####[facility] [address] [place], [place], [address] Erythrocyte distribution wid th ratioOrdered By: Alejandro Rosales on 04-19-2025 Erythrocyte distribution width (RBC) [Ratio] 16.9 % High 11.6-14.6 [facility] Erythrocyte distribution wid th standard deviationOrdered By: Alejandro Rosales on 04-19-2025 Erythrocyte distribution width (RBC) [Ratio] 53.1 fl High 35.1-43.9 [facility] Glomerular filtration rate ( GFR) estimation/1.73 sq m using serum, plasma, or whole bOrdered By: Alejandro Rosales on 04-19-2025 GFR/1.73 sq M.predicted among non-blacks MDRD (S/P/Bld) [Vol rate/Area] 63 mL/min/{1.73_m2} >60 [facility] Comment on above: mL/min/1.73m2 CKD-EP I Creatinine Equation (2020) Hematocrit Auto (Bld) [Volum e fraction]Ordered By: Alejandro Rosales on 04-19-2025 Hematocrit (Bld) [Volume fraction] 41.0 % 37-47 [facility] Hemoglobin A1con 04-19-2025 HbA1c (Bld) [Mass fraction] 6.0 % High <=5.6 [facility] Comment on above: Order Comment: Order Date: 09/28/24Order Info: [id number] - A1C Result Comment: Norm al < 5.7 % Prediabetic 5.7 - 6.4 % Diabetic >or= 6.5 % Please note range changes. Performed By: #### L 500.4050, L501.5200, L502.0250, L100.0500, L300.3900, L501.9985 ####[facility] [address] [place], [place], [id number] Hemoglobin A1c percentageOrd ered By: Alejandro Rosales on 04-19-2025 HbA1c (Bld) [Mass fraction] 6.0 % High <5.7 [facility] Comment on above: Normal < 5.7 % Predi abetic 5.7 - 6.4 % Diabetic >or= 6.5 % Please note range changes. Hemoglobin measurementOrdere d By: Alejandro Rosales on 04-19-2025 Hemoglobin (Bld) [Mass/Vol] 12.4 g/dL 12.0-15.0 [facility] International normalized rat io (INR) calculationOrdered By: Alejandro Rosales on 04-19-2025 INR Coag (Bld) [Relative time] 1.4 {INR} [facility] Laboratory - Chemistry and C hemistry - challengeOrdered By: Alejandro Rosales on 04-19-2025 AST [Catalytic activity/Vol] 25 U/L <32 [facility] MCV (mean corpuscular volume ) determinationOrdered By: Alejandro Rosales on 04-19-2025 MCV (RBC) [Entitic vol] 88.4 fL 81-99 [facility] Magnesiumon 04-19-2025 Magnesium [Mass/Vol] 2.1 mg/dL Normal 1.5-2.2 [facility] Comment on above: Order Comment: Order Date: 09/28/24Order Info: [id number] - CMPOrder Info: [id number] - MGOrder Info: 3016-3 - TSH Performed By: #### L 500.4050, L501.5200, L502.0250, L100.0500, L300.3900, L501.9985 ####[facility] [address] [place], [place], [address] Magnesium measurement (mass/ volume)Ordered By: Alejandro Rosales on 04-19-2025 Magnesium (Unsp spec) [Mass/Vol] 2.1 mg/dL 1.5-2.2 [facility] Mean corpuscular hemoglobin (MCH) determinationOrdered By: Alejandro Rosales on 04-19-2025 MCH (RBC) [Entitic mass] 26.7 pg Low 27.0-32.0 [facility] Mean corpuscular hemoglobin concentration (MCHC) determinationOrdered By: Alejandro Rosales on 04-19-2025 MCHC (RBC) [Mass/Vol] 30.2 g/dL Low 32-36 [facility] Mean platelet volume determi nationOrdered By: Alejandro Rosales on 04-19-2025 Platelet mean volume (Bld) [Entitic vol] 10.3 fL 6.2-12.0 [facility] Microalb:Creat Ratio,Random URon 04-19-2025 Creatinine [Mass/Vol] 12.60 mg/dL Low 28.00- 217. 00 [facility] Comment on above: Order Comment: Order Date: 09/28/24Order Info: [id number] - MIACREOrder Info: [id number] - MIALB Performed By: #### L 500.4050, L501.5200, L502.0250, L100.0500, L300.3900, L501.9985 ####[facility] [address] [place], [place], [address] MALB:CREAT UNABLE TO CALCULATE Normal <30 mg/g CRE [facility] Comment on above: Order Comment: Order Date: 09/28/24Order Info: [id number] - MIACREOrder Info: [id number] - MIALB Performed By: #### L 500.4050, L501.5200, L502.0250, L100.0500, L300.3900, L501.9985 ####[facility] [address] [place], [place], [address] MICROALBUMIN,UR < 12.0 Normal <20 mg/L [facility] Comment on above: Order Comment: Order Date: 09/28/24Order Info: [id number] - MIACREOrder Info: [id number] - MIALB Performed By: #### L 500.4050, L501.5200, L502.0250, L100.0500, L300.3900, L501.9985 ####[facility] [address] [place], [place], [address] Microalbumin/creat ratio urO rdered By: Alejandro Rosales on 04-19-2025 Urine microalbumin/creatinine ratio measurement UNABLE TO CALCULATE mg/g CRE <30 [facility] Platelet countOrdered By: Ike Rosales on 04-19-2025 Platelets (Bld) [#/Vol] 184 10*3/uL 150-450 [facility] Potassium measurement (mass/ volume)Ordered By: Alejandro Rosales on 04-19-2025 Potassium (Unsp spec) [Mass/Vol] 4.2 mmol/L 3.3-5.1 [facility] Prothrombin Time w/INRon INR Coag (PPP) [Relative time] 1.4 {INR} Normal [facility] Comment on above: Order Comment: Inter face Comments:standing orderOrder Date: 09/28/24Order Info: [id number] - PTComments: standing orderstanding order Performed By: #### L 500.4050, L501.5200, L502.0250, L100.0500, L300.3900, L501.9985 ####[facility] [address] [place], [place], [id number] PT Coag (PPP) [Time] 17.8 s High 11.7-14.9 [facility] Comment on above: Order Comment: Inter face Comments:standing orderOrder Date: 09/28/24Order Info: [id number] - PTComments: standing orderstanding order Performed By: #### L 500.4050, L501.5200, L502.0250, L100.0500, L300.3900, L501.9985 ####[facility] [address] [place], [place], [id number] Prothrombin timeOrdered By: Alejandro Rsoales on 04-19-2025 PT Coag (PPP) [Time] 17.8 s High 11.7-14.9 [facility] RBC Auto (Bld) [#/Vol]Ordere d By: Alejandro Rosales on 04-19-2025 RBC (Bld) [#/Vol] 4.64 10*6/uL 4.2-5.[address] [facility] Random urine creatinine bessie urement (mass/volume)Ordered By: Alejandro Rosales on 04-19-2025 Creatinine Unsp time (U) [Mass/Vol] 12.60 mg/dL Low 28.00-217. 00 [facility] Serum creatinine measurement (mass/volume)Ordered By: Alejandro Rosales on 04-19-2025 Creatinine [Mass/Vol] 0.96 mg/dL 0.70-1.20 [facility] Serum globulin measurementOr dered By: Alejandro Rosales on 04-19-2025 Globulin (S) [Mass/Vol] 3.5 g/dL 2.2-4.2 [facility] Serum glucose measurement (m ass/volume)Ordered By: Alejandro Rosales on 04-19-2025 Glucose [Mass/Vol] 114 mg/dL High 70-[address] [facility] Serum or plasma alanine herrera otransferase (ALT) measurementOrdered By: Alejandro Rosales on 04-19-2025 ALT [Catalytic activity/Vol] 20 U/L <35 [facility] Serum or plasma albumin bessie urement (mass/volume)Ordered By: Alejandro Rosales on 04-19-2025 Albumin [Mass/Vol] 4.1 g/dL 3.4-4.[address] [facility] Serum or plasma albumin/glob ulin mass ratioOrdered By: Alejandro Rosales on 04-19-2025 Albumin/Globulin [Mass ratio] 1.2 {ratio} 0.9-2.4 [facility] Serum or plasma alkaline gloria sphatase measurementOrdered By: Alejandro Rosales on 04-19-2025 ALP [Catalytic activity/Vol] 139 U/L High 35-104 [facility] Serum or plasma calcium bessie urement (mass/volume)Ordered By: Alejandro Rosales on 04-19-2025 Calcium [Mass/Vol] 9.7 mg/dL 7.6-11.[address] [facility] Serum or plasma urea nitroge n measurement (mass/volume)Ordered By: Alejandro Rosales on 04-19-2025 Urea nitrogen [Mass/Vol] 22 mg/dL High 4-19 [facility] Sodium levelOrdered By: Alejandro Rosales on 04-19-2025 Sodium [Moles/Vol] 136 mmol/L 133-[address] [facility] TSH DL <= 0.005 mIU/L QnOrde red By: Chris Hand on 04-19-2025 TSH Qn 9.570 uIU/mL High 0.300-4.20 0 [facility] Thyroid Stim Hormone (TSH)on 04-19-2025 TSH 9.570 uIU/mL High 0.300-4.20 0 [facility] Comment on above: Order Comment: SEND TO Performed By: #### L 501.9599 ####[facility] [address] [place], [place], [id number] Total proteinOrdered By: Kate Rosales on 04-19-2025 Protein [Mass/Vol] 7.5 g/dL 5.9-8.[address] [facility] Urine albumin measurement [facility] detection limit of 20 mg/L or less (mass/volume)Ordered By: Alejandro Rosales on 04-19-2025 Albumin DL <= 20 mg/L (U) [Mass/Vol] < 12.0 mg/L <20 mg/L [facility] White blood cell (WBC) count Ordered By: Alejandro Rosales on 04-19-2025 WBC (Bld) [#/Vol] 8.2 10*3/uL 4.4-11.[address] [facility] Pulmonary Visit Reporton Pulmonary Visit Report Normal [facility] Neurology Visit Reporton Neurology Visit Report Normal [facility] Absolute lymphocyte countOrd ered By: Alejandro Rosales on 02-25-2025 Lymphocytes Auto (Unsp spec) [#/Vol] 1.81 10*3/uL 0.83-4.51 [facility] Absolute neutrophil countOrd ered By: Alejandro Rosales on 02-25-2025 Neutrophils (Bld) [#/Vol] 5.4 10*3/uL 2.0-7.7 [facility] Anion gap in Serum or Plasma Ordered By: Alejandro Rosales on 02-25-2025 Anion gap [Moles/Vol] 14 mmol/L 5-15 [facility] Automated lymphocyte count a s percentage of total leukocytesOrdered By: Alejandro Rosales on 02-25-2025 Lymphocytes/100 WBC Auto (Unsp spec) 22.8 % 19- [facility] BUN/creatinine ratioOrdered By: Alejandro Rosales on 02-25-2025 Urea nitrogen/Creatinine [Mass ratio] 20.6 mg/mg High 10-20 [facility] Basophil percentageOrdered B y: Alejandro Rosales on 02-25-2025 Basophils/100 WBC (Bld) 0.5 % 0-1 [facility] Bilirubin, totalOrdered By: Alejandro Rosales on 02-25-2025 Bilirubin [Mass/Vol] 1.08 mg/dL 0.00-1.30 [facility] CBC W/Diff, Automatedon 02-02 Absolute Lymph 1.81 X10 3/uL Normal 0.83-4.51 [facility] Comment on above: Order Comment: Order Date: 02/25/25Order Info: 0184-1 - CBCD Performed By: #### L 503.6550, L100.0100, L500.4050, L501.9985 ####[facility] [address] [place], [address] Absolute Neut 5.4 X10 3/uL Normal 2.0-7.7 [facility] Comment on above: Order Comment: Order Date: 02/25/25Order Info: 0184-1 - CBCD Performed By: #### L 503.6550, L100.0100, L500.4050, L501.9985 ####[facility] [address] [place], [address] Basophils/100 WBC (Bld) 0.5 % Normal 0-1 [facility] Comment on above: Order Comment: Order Date: 02/25/25Order Info: 0184-1 - CBCD Performed By: #### L 503.6550, L100.0100, L500.4050, L501.9985 ####[facility] [address] [place], [address] Eosinophils/100 WBC (Bld) 1.3 % Normal 0-5 [facility] Comment on above: Order Comment: Order Date: 02/25/25Order Info: 018- - CBCD Performed By: #### L 503.6550, L100.0100, L500.4050, L501.9985 ####[facility] [address] [place], [address] Erythrocyte distribution width (RBC) [Ratio] 16.1 % High 11.6-14.6 [facility] Comment on above: Order Comment: Order Date: 02/25/25Order Info: 018- - CBCD Performed By: #### L 503.6550, L100.0100, L500.4050, L501.9985 ####[facility] [address] [place], [address] Hematocrit (Bld) [Volume fraction] 45.2 % Normal 37-47 [facility] Comment on above: Order Comment: Order Date: 02/25/25Order Info: 018- - CBCD Performed By: #### L 503.6550, L100.0100, L500.4050, L501.9985 ####[facility] [address] [place], [address] Hemoglobin (Bld) [Mass/Vol] 13.8 g/dL Normal 12.0-15.0 [facility] Comment on above: Order Comment: Order Date: 02/25/25Order Info: 018- - CBCD Performed By: #### L 503.6550, L100.0100, L500.4050, L501.9985 ####[facility] [address] [place], [address] IG% 0.400 Normal 0.0-0.9 [facility] Comment on above: Order Comment: Order Date: 02/25/25Order Info: 018-1 - CBCD Result Comment: IG% - Immature Granulocytes (promyelocytes, myelocytes andmetamyelocytes) > 1% indicates that a LEFT SHIFT is Present. Performed By: #### L 503.6550, L100.0100, L500.4050, L501.9985 ####[facility] [address] [place], [address] Lymphocytes/100 WBC (Bld) 22.8 % Normal 19-41 [facility] Comment on above: Order Comment: Order Date: 02/25/25Order Info: 0184-1 - CBCD Performed By: #### L 503.6550, L100.0100, L500.4050, L501.9985 ####[facility] [address] [place], [address] MCH (RBC) [Entitic mass] 27.6 pg Normal 27.0-32.0 [facility] Comment on above: Order Comment: Order Date: 02/25/25Order Info: 0184-1 - CBCD Performed By: #### L 503.6550, L100.0100, L500.4050, L501.9985 ####[facility] [address] [place], [address] MCHC (RBC) [Mass/Vol] 30.5 g/dL Low 32-36 [facility] Comment on above: Order Comment: Order Date: 02/25/25Order Info: 0184-1 - CBCD Performed By: #### L 503.6550, L100.0100, L500.4050, L501.9985 ####[facility] [address] [place], [address] MCV (RBC) [Entitic vol] 90.4 fL Normal 81-99 [facility] Comment on above: Order Comment: Order Date: 02/25/25Order Info: 0184-1 - CBCD Performed By: #### L 503.6550, L100.0100, L500.4050, L501.9985 ####[facility] [address] [place], [address] Monocytes/100 WBC (Bld) 7.7 % Normal 0-10 [facility] Comment on above: Order Comment: Order Date: 02/25/25Order Info: 0184-1 - CBCD Performed By: #### L 503.6550, L100.0100, L500.4050, L501.9985 ####[facility] [address] [place], [address] Neutrophils/100 WBC (Bld) 67.3 % Normal 47-70 [facility] Comment on above: Order Comment: Order Date: 02/25/25Order Info: 0184-1 - CBCD Performed By: #### L 503.6550, L100.0100, L500.4050, L501.9985 ####[facility] [address] [place], [address] Nucleated RBC (Bld) [#/Vol] 0 10*3/uL Normal 0-5 [facility] Comment on above: Order Comment: Order Date: 02/25/25Order Info: 0184-1 - CBCD Performed By: #### L 503.6550, L100.0100, L500.4050, L501.9985 ####[facility] [address] [place], [address] Platelet mean volume (Bld) [Entitic vol] 10.9 fL Normal 6.2-12.0 [facility] Comment on above: Order Comment: Order Date: 02/25/25Order Info: 0184-1 - CBCD Performed By: #### L 503.6550, L100.0100, L500.4050, L501.9985 ####[facility] [address] [place], [address] Platelets (Bld) [#/Vol] 167 10*3/uL Normal 150-450 [facility] Comment on above: Order Comment: Order Date: 02/25/25Order Info: 0184-1 - CBCD Performed By: #### L 503.6550, L100.0100, L500.4050, L501.9985 ####[facility] [address] [place], [address] RBC (Bld) [#/Vol] 5.00 10*6/uL Normal 4.2-5.[address] [facility] Comment on above: Order Comment: Order Date: 02/25/25Order Info: 0184-1 - CBCD Performed By: #### L 503.6550, L100.0100, L500.4050, L501.9985 ####[facility] [address] [place], [address] RDW SD 52.7 fl High 35.1-43.9 [facility] Comment on above: Order Comment: Order Date: 02/25/25Order Info: 0184-1 - CBCD Performed By: #### L 503.6550, L100.0100, L500.4050, L501.9985 ####[facility] [address] [place], [address] WBC (Bld) [#/Vol] 8.0 10*3/uL Normal 4.4-11.[address] [facility] Comment on above: Order Comment: Order Date: 02/25/25Order Info: 0184-1 - CBCD Performed By: #### L 503.6550, L100.0100, L500.4050, L501.9985 ####[facility] [address] [place], [address] Carbon dioxide, total [Moles /volume] in Central venous bloodOrdered By: Alejandro Rosales on 02-25-2025 CO2 [Moles/Vol] 21.3 mmol/L 21.0-32.0 [facility] Chloride assayOrdered By: Ike Rosales on 02-25-2025 Chloride [Moles/Vol] 103 mmol/L 98-108 [facility] Comprehensive Metabolic Prof ilon 02-25-2025 Albumin [Mass/Vol] 3.8 g/dL Normal 3.4-4.[address] [facility] Comment on above: Order Comment: Order Date: 02/25/25Order Info: 0786- - CMPOrder Info: 2275-11 - HARITHA Performed By: #### L 503.6550, L100.0100, L500.4050, L501.9985 ####[facility] [address] [place], [address] Albumin/Globulin [Mass ratio] 1.1 {ratio} Normal 0.9-2.4 [facility] Comment on above: Order Comment: Order Date: 02/25/25Order Info: 0786- - CMPOrder Info: 2275-11 - HARITHA Performed By: #### L 503.6550, L100.0100, L500.4050, L501.9985 ####[facility] [address] [place], [address] ALK PHOS 117 U/L High 35-104 [facility] Comment on above: Order Comment: Order Date: 02/25/25Order Info: 0786- - CMPOrder Info: 2275-11 - HARITHA Performed By: #### L 503.6550, L100.0100, L500.4050, L501.9985 ####[facility] [address] [place], [address] ALT [Catalytic activity/Vol] 7 U/L Normal <=34 [facility] Comment on above: Order Comment: Order Date: 02/25/25Order Info: 0786- - CMPOrder Info: 2275-11 - HARITHA Performed By: #### L 503.6550, L100.0100, L500.4050, L501.9985 ####[facility] [address] [place], [address] AST [Catalytic activity/Vol] 24 U/L Normal <=31 [facility] Comment on above: Order Comment: Order Date: 02/25/25Order Info: 0786-1 - CMPOrder Info: 2275-11 - HARITHA Result Comment: Hemo lysis present, Results??could be affected.?? Performed By: #### L 503.6550, L100.0100, L500.4050, L501.9985 ####[facility] [address] [place], [address] Bilirubin [Mass/Vol] 1.08 mg/dL Normal 0.00-1.30 [facility] Comment on above: Order Comment: Order Date: 02/25/25Order Info: 0786-1 - CMPOrder Info: 2275-11 - HARITHA Performed By: #### L 503.6550, L100.0100, L500.4050, L501.9985 ####[facility] [address] [place], [address] BUN/CRE 20.6 RATIO High 10-20 [facility] Comment on above: Order Comment: Order Date: 02/25/25Order Info: 0786- - CMPOrder Info: 2275-11 - HARITHA Performed By: #### L 503.6550, L100.0100, L500.4050, L501.9985 ####[facility] [address] [place], [address] Calcium [Mass/Vol] 10.2 mg/dL Normal 7.6-11.[address] [facility] Comment on above: Order Comment: Order Date: 02/25/25Order Info: 0786-1 - CMPOrder Info: 2275-11 - HARITHA Performed By: #### L 503.6550, L100.0100, L500.4050, L501.9985 ####[facility] [address] [place], [address] Chloride [Moles/Vol] 103 mmol/L Normal 98-108 [facility] Comment on above: Order Comment: Order Date: 02/25/25Order Info: 0786-1 - CMPOrder Info: 2275-11 - HARITHA Performed By: #### L 503.6550, L100.0100, L500.4050, L501.9985 ####[facility] [address] [place], [address] CO2 [Moles/Vol] 21.3 mmol/L Normal 21.0-32.0 [facility] Comment on above: Order Comment: Order Date: 02/25/25Order Info: 0786-1 - CMPOrder Info: 2275-11 - HARITHA Performed By: #### L 503.6550, L100.0100, L500.4050, L501.9985 ####[facility] [address] [place], [address] Creatinine [Mass/Vol] 0.88 mg/dL Normal 0.70-1.20 [facility] Comment on above: Order Comment: Order Date: 02/25/25Order Info: 0786- - CMPOrder Info: 2275-11 - HARITHA Performed By: #### L 503.6550, L100.0100, L500.4050, L501.9985 ####[facility] [address] [place], [address] GAP 14 Normal 5-15 [facility] Comment on above: Order Comment: Order Date: 02/25/25Order Info: 0786- - CMPOrder Info: 2275-11 - HARITHA Performed By: #### L 503.6550, L100.0100, L500.4050, L501.9985 ####[facility] [address] [place], [address] GFR/1.73 sq M.predicted among non-blacks MDRD (S/P/Bld) [Vol rate/Area] 70 mL/min/{1.73_m2} Normal >60 [facility] Comment on above: Order Comment: Order Date: 02/25/25Order Info: 0786- - CMPOrder Info: 2275-11 - HARITHA Result Comment: mL/m in/1.73m2 CKD-EPI Creatinine Equation (2020) Performed By: #### L 503.6550, L100.0100, L500.4050, L501.9985 ####[facility] [address] [place], [address] Globulin (S) [Mass/Vol] 3.5 g/dL Normal 2.2-4.2 [facility] Comment on above: Order Comment: Order Date: 02/25/25Order Info: 86- - CMPOrder Info: 2275-11 - HARITHA Performed By: #### L 503.6550, L100.0100, L500.4050, L501.9985 ####[facility] [address] [place], [address] Glucose [Mass/Vol] 98 mg/dL Normal 70-[address] [facility] Comment on above: Order Comment: Order Date: 02/25/25Order Info: 07 - CMPOrder Info: 2275-11 - HARITHA Performed By: #### L 503.6550, L100.0100, L500.4050, L501.9985 ####[facility] [address] [place], [address] Potassium [Moles/Vol] 4.4 mmol/L Normal 3.3-5.1 [facility] Comment on above: Order Comment: Order Date: 02/25/25Order Info: 0786 - CMPOrder Info: 2275-11 - HARITHA Result Comment: Hemo lysis present, Results??could be affected.?? Performed By: #### L 503.6550, L100.0100, L500.4050, L501.9985 ####[facility] [address] [place], [address] Sodium [Moles/Vol] 138 mmol/L Normal 133-[address] [facility] Comment on above: Order Comment: Order Date: 02/25/25Order Info: 0786- - CMPOrder Info: 2275-11 - HARITHA Performed By: #### L 503.6550, L100.0100, L500.4050, L501.9985 ####[facility] [address] [place], [place], [id number] T PROT 7.3 g/dL Normal 5.9-8.4 [facility] Comment on above: Order Comment: Order Date: 02/25/25Order Info: 0786-1 - CMPOrder Info: 2275-11 - HARITHA Performed By: #### L 503.6550, L100.0100, L500.4050, L501.9985 ####[facility] [address] [place], [place], [address] Urea nitrogen [Mass/Vol] 18 mg/dL Normal 4-19 [facility] Comment on above: Order Comment: Order Date: 02/25/25Order Info: 07 - CMPOrder Info: 2275-11 - HARITHA Performed By: #### L 503.6550, L100.0100, L500.4050, L501.9985 ####[facility] [address] [place], [place], [id number] Eosinophil percentageOrdered By: Alejandro Rosales on 02-25-2025 Eosinophils/100 WBC (Bld) 1.3 % 0-5 [facility] Erythrocyte distribution wid th ratioOrdered By: Alejandro Rosales on 02-25-2025 Erythrocyte distribution width (RBC) [Ratio] 16.1 % High 11.6-14.6 [facility] Erythrocyte distribution wid th standard deviationOrdered By: Alejandro Rosales on 02-25-2025 Erythrocyte distribution width (RBC) [Ratio] 52.7 fl High 35.1-43.9 [facility] Ferritinon 02-25-2025 Ferritin [Mass/Vol] 179 ng/mL Normal 22-[address] [facility] Comment on above: Order Comment: Order Date: 02/25/25Order Info: [id number] - CMPOrder Info: [id number] - HARITHA Performed By: #### L 503.6550, L100.0100, L500.4050, L501.9985 ####[facility] [address] [place], [place], [id number] Glomerular filtration rate ( GFR) estimation/1.73 sq m using serum, plasma, or whole bOrdered By: Alejandro Rosales on 02-25-2025 GFR/1.73 sq M.predicted among non-blacks MDRD (S/P/Bld) [Vol rate/Area] 70 mL/min/{1.73_m2} >60 [facility] Comment on above: mL/min/1.73m2 CKD-EP I Creatinine Equation (2020) Hematocrit Auto (Bld) [Volum e fraction]Ordered By: Alejandro Rosales on 02-25-2025 Hematocrit (Bld) [Volume fraction] 45.2 % 37-47 [facility] Hemoglobin A1con 02-25-2025 HbA1c (Bld) [Mass fraction] 6.0 % High <=5.6 [facility] Comment on above: Order Comment: Order Date: 02/25/25Order Info: [id number] - A1C Result Comment: Norm al < 5.7 % Prediabetic 5.7 - 6.4 % Diabetic >or= 6.5 % Please note range changes. Performed By: #### L 503.6550, L100.0100, L500.4050, L501.9985 ####[facility] [address] [facility] [place], [place], [id number] Hemoglobin A1c percentageOrd ered By: Alejandro Rosales on 02-25-2025 HbA1c (Bld) [Mass fraction] 6.0 % High <5.7 [facility] Comment on above: Normal < 5.7 % Predi abetic 5.7 - 6.4 % Diabetic >or= 6.5 % Please note range changes. Hemoglobin measurementOrdere d By: Alejandro Rosales on 02-25-2025 Hemoglobin (Bld) [Mass/Vol] 13.8 g/dL 12.0-15.0 [facility] Immature granulocytes/100 WB C Auto (Bld)Ordered By: Alejnadro Rosales on 02-25-2025 Immature granulocytes/100 WBC (Bld) 0.400 % 0.0-0.9 [facility] Comment on above: IG% - Immature Granu locytes (promyelocytes, myelocytes and metamyelocytes) > 1% indicates that a LEFT SHIFT is Present. Laboratory - Chemistry and C hemistry - challengeOrdered By: Alejandro Rosales on 02-25-2025 AST [Catalytic activity/Vol] 24 U/L <32 [facility] Comment on above: Hemolysis present, R esults could be affected. MCV (mean corpuscular volume ) determinationOrdered By: Alejandro Rosales on 02-25-2025 MCV (RBC) [Entitic vol] 90.4 fL 81-99 [facility] Mean corpuscular hemoglobin (MCH) determinationOrdered By: Alejandro Rosales on 02-25-2025 MCH (RBC) [Entitic mass] 27.6 pg 27.0-32.0 [facility] Mean corpuscular hemoglobin concentration (MCHC) determinationOrdered By: Alejandro Rosales on 02-25-2025 MCHC (RBC) [Mass/Vol] 30.5 g/dL Low 32-36 [facility] Mean platelet volume determi nationOrdered By: Alejandro Rosales on 02-25-2025 Platelet mean volume (Bld) [Entitic vol] 10.9 fL 6.2-12.0 [facility] Microalb:Creat Ratio,Random URon 02-25-2025 Creatinine [Mass/Vol] 98.70 mg/dL Normal 28.00- 217. 00 [facility] Comment on above: Order Comment: Order Date: 02/25/25Order Info: [id number] - MIALB Performed By: #### L 502.0250 ####[facility] [address] [place], [address] MALB:CREAT 29.7 mg/g CRE Normal <30 mg/g CRE [facility] Comment on above: Order Comment: Order Date: 02/25/25Order Info: [id number] - MIALB Performed By: #### L 502.0250 ####[facility] [address] [place], [place], [id number] MICROALBUMIN,UR 29.3 mg/L Normal <20 mg/L [facility] Comment on above: Order Comment: Order Date: 02/25/25Order Info: [id number] - MIALB Performed By: #### L 502.0250 ####[facility] [address] [place], [address] Monocyte percentageOrdered B y: Alejandro Rosales on 02-25-2025 Monocytes/100 WBC (Bld) 7.7 % 0-10 [facility] Neutrophil percentageOrdered By: Alejandro Rosales on 02-25-2025 Neutrophils/100 WBC (Bld) 67.3 % 47-70 [facility] Nucleated red blood cell per centageOrdered By: Alejandro Rosales on 02-25-2025 Nucleated RBC/100 WBC (Bld) [Ratio] 0 % 0-5 [facility] Platelet countOrdered By: Ike Rosales on 02-25-2025 Platelets (Bld) [#/Vol] 167 10*3/uL 150-450 [facility] Potassium measurement (mass/ volume)Ordered By: Alejandro Rosales on 02-25-2025 Potassium (Unsp spec) [Mass/Vol] 4.4 mmol/L 3.3-5.1 [facility] Comment on above: Hemolysis present, R esults could be affected. RBC Auto (Bld) [#/Vol]Ordere d By: Alejandro Rosales on 02-25-2025 RBC (Bld) [#/Vol] 5.00 10*6/uL 4.2-5.[address] [facility] Random urine creatinine bessie urement (mass/volume)Ordered By: Alejandro Rosales on 02-25-2025 Creatinine Unsp time (U) [Mass/Vol] 98.70 mg/dL 28.00-217. 00 [facility] Serum creatinine measurement (mass/volume)Ordered By: Alejandro Rosales on 02-25-2025 Creatinine [Mass/Vol] 0.88 mg/dL 0.70-1.20 [facility] Serum globulin measurementOr dered By: Alejandro Rosales on 02-25-2025 Globulin (S) [Mass/Vol] 3.5 g/dL 2.2-4.2 [facility] Serum glucose measurement (m ass/volume)Ordered By: Alejandro Rosales on 02-25-2025 Glucose [Mass/Vol] 98 mg/dL 70-[address] [facility] Serum or plasma alanine herrera otransferase (ALT) measurementOrdered By: Alejandro Rosales on 02-25-2025 ALT [Catalytic activity/Vol] 7 U/L <35 [facility] Serum or plasma albumin bessie urement (mass/volume)Ordered By: Alejandro Rosales on 02-25-2025 Albumin [Mass/Vol] 3.8 g/dL 3.4-4.[address] [facility] Serum or plasma albumin/glob ulin mass ratioOrdered By: Alejandro Rosales on 02-25-2025 Albumin/Globulin [Mass ratio] 1.1 {ratio} 0.9-2.4 [facility] Serum or plasma alkaline gloria sphatase measurementOrdered By: Alejandro Rosales on 02-25-2025 ALP [Catalytic activity/Vol] 117 U/L High 35-104 [facility] Serum or plasma calcium bessie urement (mass/volume)Ordered By: Alejandro Rosales on 02-25-2025 Calcium [Mass/Vol] 10.2 mg/dL 7.6-11.[address] [facility] Serum or plasma ferritin ajit surement (mass/volume)Ordered By: Alejandro Rosales on 02-25-2025 Ferritin [Mass/Vol] 179 ng/mL 22-[address] [facility] Serum or plasma urea nitroge n measurement (mass/volume)Ordered By: Alejandro Rosales on 02-25-2025 Urea nitrogen [Mass/Vol] 18 mg/dL 4-19 [facility] Sodium levelOrdered By: Alejandro Rosales on 02-25-2025 Sodium [Moles/Vol] 138 mmol/L 133-[address] [facility] Total proteinOrdered By: Kate Rosales on 02-25-2025 Protein [Mass/Vol] 7.3 g/dL 5.9-8.[address] [facility] Urine albumin measurement wi detection limit of 20 mg/L or less (mass/volume)Ordered By: Alejandro Rosales on 02-25-2025 Albumin DL <= 20 mg/L (U) [Mass/Vol] 29.3 mg/L <20 mg/L [facility] White blood cell (WBC) count Ordered By: Alejandro Rosales on 02-25-2025 WBC (Bld) [#/Vol] 8.0 10*3/uL 4.4-11.[address] [facility] SP/HP.SPREEVon 02-18-2025 SP/HP.SPREEV Normal [facility] Chest without Contraston Chest without Contrast Normal [facility] 6 Minute Walk Teston 025 6 Minute Walk Test Normal [facility] Culture, Anaerobic Any Sourc maría 12-24-2024 CUAN No growth in 5 days. Normal [facility] Comment on above: Performed By: #### M 100.2900, M100.4001, M100.1999 ####[facility] [address] [place], [address] Pulmonary Visit Reporton Pulmonary Visit Report Normal [facility] Body Fluid Culton 12-23-2024 BFC No growth in 5 days. Normal [facility] Comment on above: Performed By: #### M 100.2900, M100.4001, M100.1999 ####[facility] [address] [facility] [address] Plastic Surgery Visit Report on 12-23-2024 Plastic Surgery Visit Report Normal [facility] Basic Metabolic Profile (BMP )on 12-20-2024 BUN Normal - [facility] Comment on above: Result Comment: Canc elled via OM: Order cancelled - Patient discharged Performed By: #### L 500.2500, L100.0100 ####[facility] [address] [place], [address] BUN/CRE Normal - [facility] Comment on above: Result Comment: Canc elled via OM: Order cancelled - Patient discharged Performed By: #### L 500.2500, L100.0100 ####[facility] [address] [place], [address] Calcium Normal 7.6-11.0 [facility] Comment on above: Result Comment: Canc elled via OM: Order cancelled - Patient discharged Performed By: #### L 500.2500, L100.0100 ####[facility] [address] [place], [address] CL Normal 98-108 [facility] Comment on above: Result Comment: Canc elled via OM: Order cancelled - Patient discharged Performed By: #### L 500.2500, L100.0100 ####[facility] [address] [place], [address] CO2 Normal 21.0-32.0 [facility] Comment on above: Result Comment: Canc elled via OM: Order cancelled - Patient discharged Performed By: #### L 500.2500, L100.0100 ####[facility] [address] [place], [address] CREAT,SERUM Normal 0.70-1.20 [facility] Comment on above: Result Comment: Canc elled via OM: Order cancelled - Patient discharged Performed By: #### L 500.2500, L100.0100 ####[facility] [address] [place], [address] eGFR Normal >60 [facility] Comment on above: Result Comment: Canc elled via OM: Order cancelled - Patient discharged Performed By: #### L 500.2500, L100.0100 ####[facility] [address] [place], [address] GAP Normal 5-15 [facility] Comment on above: Result Comment: Canc elled via OM: Order cancelled - Patient discharged Performed By: #### L 500.2500, L100.0100 ####[facility] [address] [place], [address] GLU Normal 70-99 [facility] Comment on above: Result Comment: Canc elled via OM: Order cancelled - Patient discharged Performed By: #### L 500.2500, L100.0100 ####[facility] [address] [place], [address] Potassium Normal 3.3-5.1 [facility] Comment on above: Result Comment: Canc elled via OM: Order cancelled - Patient discharged Performed By: #### L 500.2500, L100.0100 ####[facility] [address] [place], [address] Basic Metabolic Profile (BMP) Normal 133-145 [facility] Comment on above: Result Comment: Canc elled via OM: Order cancelled - Patient discharged Performed By: #### L 500.2500, L100.0100 ####[facility] [address] [place], [address] CBC W/Diff, Automatedon 05- Absolute Neut Normal 2.0-7.7 [facility] Comment on above: Result Comment: Canc elled via OM: Order cancelled - Patient discharged Performed By: #### L 500.2500, L100.0100 ####[facility] [address] [place], [address] HCT Normal 37-47 [facility] Comment on above: Result Comment: Canc elled via OM: Order cancelled - Patient discharged Performed By: #### L 500.2500, L100.0100 ####[facility] [address] [place], [address] HGB Normal 12.0-15.0 [facility] Comment on above: Result Comment: Canc elled via OM: Order cancelled - Patient discharged Performed By: #### L 500.2500, L100.0100 ####[facility] [address] [place], [address] MCH Normal 27.0-32.0 [facility] Comment on above: Result Comment: Canc elled via OM: Order cancelled - Patient discharged Performed By: #### L 500.2500, L100.0100 ####[facility] [address] [place], [address] MCHC Normal 32-36 [facility] Comment on above: Result Comment: Canc elled via OM: Order cancelled - Patient discharged Performed By: #### L 500.2500, L100.0100 ####[facility] [address] [place], [address] MCV Normal 81-99 [facility] Comment on above: Result Comment: Canc elled via OM: Order cancelled - Patient discharged Performed By: #### L 500.2500, L100.0100 ####[facility] [address] [place], [address] NEUT% Normal 47-70 [facility] Comment on above: Result Comment: Canc elled via OM: Order cancelled - Patient discharged Performed By: #### L 500.2500, L100.0100 ####[facility] [address] [place], [address] PLT Normal 150-450 [facility] Comment on above: Result Comment: Canc elled via OM: Order cancelled - Patient discharged Performed By: #### L 500.2500, L100.0100 ####[facility] [address] [place], [address] RBC Normal 4.2-5.4 [facility] Comment on above: Result Comment: Canc elled via OM: Order cancelled - Patient discharged Performed By: #### L 500.2500, L100.0100 ####[facility] [address] [place], [address] RDW CV Normal 11.6-14.6 [facility] Comment on above: Result Comment: Canc elled via OM: Order cancelled - Patient discharged Performed By: #### L 500.2500, L100.0100 ####[facility] [address] [place], [address] RDW SD Normal 35.1-43.9 [facility] Comment on above: Result Comment: Canc elled via OM: Order cancelled - Patient discharged Performed By: #### L 500.2500, L100.0100 ####[facility] [address] [place], [address] WBC Normal 4.4-11.0 [facility] Comment on above: Result Comment: Canc elled via OM: Order cancelled - Patient discharged Performed By: #### L 500.2500, L100.0100 ####[facility] [address] [place], [address] Absolute lymphocyte countOrd ered By: Shayla Castro on 12-19-2024 Lymphocytes Auto (Unsp spec) [#/Vol] 1.33 10*3/uL 0.83-4.51 [facility] Absolute neutrophil countOrd ered By: Shaylavelasquez Castro on 12-19-2024 Neutrophils (Bld) [#/Vol] 6.9 10*3/uL 2.0-7.7 [facility] Anion gap in Serum or Plasma Ordered By: Shayla Castro on 12-19-2024 Anion gap [Moles/Vol] 11 mmol/L 5-15 [facility] Automated lymphocyte count a s percentage of total leukocytesOrdered By: Shayla Castro on 12-19-2024 Lymphocytes/100 WBC Auto (Unsp spec) 14.6 % Low 19-41 [facility] BUN/creatinine ratioOrdered By: Shayla Castro on 12-19-2024 Urea nitrogen/Creatinine [Mass ratio] 21.1 mg/mg High 10- [facility] Basic Metabolic Profile (BMP )on 12-19-2024 BUN/CRE 21.1 RATIO High 10- [facility] Comment on above: Performed By: #### L 500.2500, L100.0100 ####[facility] [address] [place], [address] Calcium [Mass/Vol] 9.6 mg/dL Normal 7.6-11.[address] [facility] Comment on above: Performed By: #### L 500.2500, L100.0100 ####[facility] [address] [place], [address] Chloride [Moles/Vol] 105 mmol/L Normal 98-108 [facility] Comment on above: Performed By: #### L 500.2500, L100.0100 ####[facility] [address] [place], [address] CO2 [Moles/Vol] 23.1 mmol/L Normal 21.0-32.0 [facility] Comment on above: Performed By: #### L 500.2500, L100.0100 ####[facility] [address] [place], [address] Creatinine [Mass/Vol] 0.72 mg/dL Normal 0.70-1.20 [facility] Comment on above: Performed By: #### L 500.2500, L100.0100 ####[facility] [address] [place], [address] ECRCL 73.65 ml/min Normal 50-250 [facility] Comment on above: Performed By: #### L 500.2500, L100.0100 ####[facility] [address] [place], [address] GAP 11 Normal 5-15 [facility] Comment on above: Performed By: #### L 500.2500, L100.0100 ####[facility] [address] [place], [address] GFR/1.73 sq M.predicted among non-blacks MDRD (S/P/Bld) [Vol rate/Area] 89 mL/min/{1.73_m2} Normal >60 [facility] Comment on above: Result Comment: mL/m in/1.73m2 CKD-EPI Creatinine Equation (2020) Performed By: #### L 500.2500, L100.0100 ####[facility] [address] [place], [address] Glucose [Mass/Vol] 116 mg/dL High 70-[address] [facility] Comment on above: Performed By: #### L 500.2500, L100.0100 ####[facility] [address] [place], [address] Potassium [Moles/Vol] 4.2 mmol/L Normal 3.3-5.1 [facility] Comment on above: Performed By: #### L 500.2500, L100.0100 ####[facility] [address] [place], [address] Sodium [Moles/Vol] 139 mmol/L Normal 133-[address] [facility] Comment on above: Performed By: #### L 500.2500, L100.0100 ####[facility] [address] [place], [address] Urea nitrogen [Mass/Vol] 15 mg/dL Normal 4-19 [facility] Comment on above: Performed By: #### L 500.2500, L100.0100 ####[facility] [address] [place], [address] Basophil percentageOrdered B y: Shayla Castro on 12-19-2024 Basophils/100 WBC (Bld) 0.5 % 0-1 [facility] Bedside Glucoseon 12-19-2024 FINGERSTICK GLU 108 mg/dL High 74-106 [facility] Comment on above: Result Comment: FRANCINE GEMENT OF PATIENT CARE PER NURSING PROTOCOL Performed By: #### L 501.080 ####[facility] [address] [place], [address] FINGERSTICK GLU 118 mg/dL High 74-106 [facility] Comment on above: Result Comment: FRANCINE GEMENT OF PATIENT CARE PER NURSING PROTOCOL Performed By: #### L 501.080 ####[facility] [address] [place], [address] CBC W/Diff, Automatedon 05- Absolute Lymph 1.33 X10 3/uL Normal 0.83-4.51 [facility] Comment on above: Performed By: #### L 500.2500, L100.0100 ####[facility] [address] [place], [address] Absolute Neut 6.9 X10 3/uL Normal 2.0-7.7 [facility] Comment on above: Performed By: #### L 500.2500, L100.0100 ####[facility] [address] [place], [address] Basophils/100 WBC (Bld) 0.5 % Normal 0-1 [facility] Comment on above: Performed By: #### L 500.2500, L100.0100 ####[facility] [address] [place], [address] Eosinophils/100 WBC (Bld) 1.9 % Normal 0-5 [facility] Comment on above: Performed By: #### L 500.2500, L100.0100 ####[facility] [address] [place], [address] Erythrocyte distribution width (RBC) [Ratio] 14.9 % High 11.6-14.6 [facility] Comment on above: Performed By: #### L 500.2500, L100.0100 ####[facility] [address] [place], [address] Hematocrit (Bld) [Volume fraction] 46.1 % Normal 37-47 [facility] Comment on above: Performed By: #### L 500.2500, L100.0100 ####[facility] [address] [place], [address] Hemoglobin (Bld) [Mass/Vol] 14.6 g/dL Normal 12.0-15.0 [facility] Comment on above: Performed By: #### L 500.2500, L100.0100 ####[facility] [address] [place], [address] IG% 0.200 Normal 0.0-0.9 [facility] Comment on above: Result Comment: IG% - Immature Granulocytes (promyelocytes, myelocytes andmetamyelocytes) > 1% indicates that a LEFT SHIFT is Present. Performed By: #### L 500.2500, L100.0100 ####[facility] [address] [place], [address] Lymphocytes/100 WBC (Bld) 14.6 % Low 19-41 [facility] Comment on above: Performed By: #### L 500.2500, L100.0100 ####[facility] [address] [place], [address] MCH (RBC) [Entitic mass] 28.4 pg Normal 27.0-32.0 [facility] Comment on above: Performed By: #### L 500.2500, L100.0100 ####[facility] [address] [place], [address] MCHC (RBC) [Mass/Vol] 31.7 g/dL Low 32-36 [facility] Comment on above: Performed By: #### L 500.2500, L100.0100 ####[facility] [address] [place], [address] MCV (RBC) [Entitic vol] 89.7 fL Normal 81-99 [facility] Comment on above: Performed By: #### L 500.2500, L100.0100 ####[facility] [address] [place], [address] Monocytes/100 WBC (Bld) 7.5 % Normal 0-10 [facility] Comment on above: Performed By: #### L 500.2500, L100.0100 ####[facility] [address] [place], [address] Neutrophils/100 WBC (Bld) 75.3 % High 47-70 [facility] Comment on above: Performed By: #### L 500.2500, L100.0100 ####[facility] [address] [place], [address] Nucleated RBC (Bld) [#/Vol] 0 10*3/uL Normal 0-5 [facility] Comment on above: Performed By: #### L 500.2500, L100.0100 ####[facility] [address] [place], [address] Platelet mean volume (Bld) [Entitic vol] 10.2 fL Normal 6.2-12.0 [facility] Comment on above: Performed By: #### L 500.2500, L100.0100 ####[facility] [address] [place], [address] Platelets (Bld) [#/Vol] 237 10*3/uL Normal 150-450 [facility] Comment on above: Performed By: #### L 500.2500, L100.0100 ####[facility] [address] [place], [address] RBC (Bld) [#/Vol] 5.14 10*6/uL Normal 4.2-5.[address] [facility] Comment on above: Performed By: #### L 500.2500, L100.0100 ####[facility] [address] [place], [address] RDW SD 49.9 fl High 35.1-43.9 [facility] Comment on above: Performed By: #### L 500.2500, L100.0100 ####[facility] [address] [place], [address] WBC (Bld) [#/Vol] 9.1 10*3/uL Normal 4.4-11.[address] [facility] Comment on above: Performed By: #### L 500.2500, L100.0100 ####[facility] [address] [place], [address] Carbon dioxide, total [Moles /volume] in Central venous bloodOrdered By: Shayla Castro on 12-19-2024 CO2 [Moles/Vol] 23.1 mmol/L 21.0-32.0 [facility] Chloride assayOrdered By: Na na Gloria on 12-19-2024 Chloride [Moles/Vol] 105 mmol/L 98-108 [facility] Discharge Instructionon 12-02 Discharge Instruction Normal [facility] Eosinophil percentageOrdered By: Shayla Castro on 12-19-2024 Eosinophils/100 WBC (Bld) 1.9 % 0-5 [facility] Erythrocyte distribution wid th ratioOrdered By: Shayla Castro on 12-19-2024 Erythrocyte distribution width (RBC) [Ratio] 14.9 % High 11.6-14.6 [facility] Erythrocyte distribution wid th standard deviationOrdered By: Shayla Castro on 12-19-2024 Erythrocyte distribution width (RBC) [Ratio] 49.9 fl High 35.1-43.9 [facility] Glomerular filtration rate ( GFR) estimation/1.73 sq m using serum, plasma, or whole bOrdered By: Shayla Castro on 12-19-2024 GFR/1.73 sq M.predicted among non-blacks MDRD (S/P/Bld) [Vol rate/Area] 89 mL/min/{1.73_m2} >60 [facility] Comment on above: mL/min/1.73m2 CKD-EP I Creatinine Equation (2020) [facility] de[facility]dered By: Shayla Castro on 12-19-2024 Glucose [Mass/Vol] 108 mg/dL High 74-[address] [facility] Comment on above: MANAGEMENT OF PATIEN T CARE PER NURSING PROTOCOL Gram Stainon 12-19-2024 GS Centrifuged Specimen ? Unable to centrifuge specimen due to insufficient volume. Gram Stain No organisms seen 4+ White Blood Cells Normal [facility] Comment on above: Performed By: #### M 100.2900, M100.4001, M100.1999 ####[facility] [address] [place], [address] Hematocrit Auto (Bld) [Volum e fraction]Ordered By: Shayla Castro on 12-19-2024 Hematocrit (Bld) [Volume fraction] 46.1 % 37-47 [facility] Hemoglobin measurementOrdere d By: Shayla Castro on 12-19-2024 Hemoglobin (Bld) [Mass/Vol] 14.6 g/dL 12.0-15.0 [facility] Immature granulocytes/100 WB C Auto (Bld)Ordered By: Shayla Castro on 12-19-2024 Immature granulocytes/100 WBC (Bld) 0.200 % 0.0-0.9 [facility] Comment on above: IG% - Immature Granu locytes (promyelocytes, myelocytes and metamyelocytes) > 1% indicates that a LEFT SHIFT is Present. MCV (mean corpuscular volume ) determinationOrdered By: Shayla Castro on 12-19-2024 MCV (RBC) [Entitic vol] 89.7 fL 81-99 [facility] Mean corpuscular hemoglobin (MCH) determinationOrdered By: Shaylavelasquez Castro 12-19-2024 MCH (RBC) [Entitic mass] 28.4 pg 27.0-32.0 [facility] Mean corpuscular hemoglobin concentration (MCHC) determinationOrdered By: Shayla Castro 12-19-2024 MCHC (RBC) [Mass/Vol] 31.7 g/dL Low 32-36 [facility] Mean platelet volume determi nationOrdered By: Shayla Castro 12-19-2024 Platelet mean volume (Bld) [Entitic vol] 10.2 fL 6.2-12.0 [facility] Monocyte percentageOrdered B y: Shayla Castro on 12-19-2024 Monocytes/100 WBC (Bld) 7.5 % 0-10 [facility] Neutrophil percentageOrdered By: Shayla Castro on 12-19-2024 Neutrophils/100 WBC (Bld) 75.3 % High 47-70 [facility] Nucleated red blood cell per centageOrdered By: Shayla Castro 12-19-2024 Nucleated RBC/100 WBC (Bld) [Ratio] 0 % 0-5 [facility] Platelet countOrdered By: Na na Koram on 12-19-2024 Platelets (Bld) [#/Vol] 237 10*3/uL 150-450 [facility] Potassium measurement (mass/ volume)Ordered By: Shayla Gloria on 12-19-2024 Potassium (Unsp spec) [Mass/Vol] 4.2 mmol/L 3.3-5.1 [facility] RBC Auto (Bld) [#/Vol]Ordere d By: Shayla Gloria on 12-19-2024 RBC (Bld) [#/Vol] 5.14 10*6/uL 4.2-5.[address] [facility] Serum creatinine measurement (mass/volume)Ordered By: Shayla Castro on 12-19-2024 Creatinine [Mass/Vol] 0.72 mg/dL 0.70-1.20 [facility] Serum glucose measurement (m ass/volume)Ordered By: Shayla Castro on 12-19-2024 Glucose [Mass/Vol] 116 mg/dL High 70-[address] [facility] Serum or plasma calcium bessie urement (mass/volume)Ordered By: Shayla Castro on 12-19-2024 Calcium [Mass/Vol] 9.6 mg/dL 7.6-11.[address] [facility] Serum or plasma urea nitroge n measurement (mass/volume)Ordered By: Shayla Castro on 12-19-2024 Urea nitrogen [Mass/Vol] 15 mg/dL 4-19 [facility] Sodium levelOrdered By: Shaylavelasquez Castro on 12-19-2024 Sodium [Moles/Vol] 139 mmol/L 133-[address] [facility] Vancomycin, Trough Levelon 0 12-19-2024 VANCO, TROUGH 21.0 ug/mL High 5.0-15.0 [facility] Comment on above: Order Comment: Comme nts: Trough to be drawn 30 mins prior to scheduled [id number] Result Comment: Aris mmended goal trough ranges [...] therapy recommended for serious lifethreatening infections include:- Adlxtrmbcq-Rfhkzicqwyvn-Xgwnbtkun (Ventilator/Healtcare Associated)-SepsisPLEASE CONTACT PHARMACY SERVICES (#0472) FOR INTERPRETATIONOF RESULTS. Performed By: #### L 501.8819 ####[facility] [address] [place], [place], [id number] White blood cell (WBC) count Ordered By: Shayla Castro on 12-19-2024 WBC (Bld) [#/Vol] 9.1 10*3/uL 4.4-11.[address] [facility] Absolute lymphocyte countOrd ered By: Shayla Castro on 12-18-2024 Lymphocytes Auto (Unsp spec) [#/Vol] 1.51 10*3/uL 0.83-4.51 [facility] Absolute neutrophil countOrd ered By: Shayla Castro on 12-18-2024 Neutrophils (Bld) [#/Vol] 6.4 10*3/uL 2.0-7.7 [facility] Anion gap in Serum or Plasma Ordered By: Shayla Castro on 12-18-2024 Anion gap [Moles/Vol] 11 mmol/L - [facility] Automated lymphocyte count a s percentage of total leukocytesOrdered By: Shayla Castro on 12-18-2024 Lymphocytes/100 WBC Auto (Unsp spec) 17.3 % Low 19-41 [facility] BUN/creatinine ratioOrdered By: Shayla Castro on 12-18-2024 Urea nitrogen/Creatinine [Mass ratio] 18.9 mg/mg 10- [facility] Basic Metabolic Profile (BMP )on 12-18-2024 BUN/CRE 18.9 RATIO Normal - [facility] Comment on above: Performed By: #### L 100.0100, L500.2500 ####[facility] [address] [place], [place], [id number] Calcium [Mass/Vol] 9.6 mg/dL Normal 7.6-11.[address] [facility] Comment on above: Performed By: #### L 100.0100, L500.2500 ####[facility] [address] [place], [address] Chloride [Moles/Vol] 106 mmol/L Normal 98-108 [facility] Comment on above: Performed By: #### L 100.0100, L500.2500 ####[facility] [address] [place], [address] CO2 [Moles/Vol] 22.2 mmol/L Normal 21.0-32.0 [facility] Comment on above: Performed By: #### L 100.0100, L500.2500 ####[facility] [address] [place], [address] Creatinine [Mass/Vol] 0.80 mg/dL Normal 0.70-1.20 [facility] Comment on above: Performed By: #### L 100.0100, L500.2500 ####[facility] [address] [place], [address] ECRCL 73.65 ml/min Normal 50-250 [facility] Comment on above: Performed By: #### L 100.0100, L500.2500 ####[facility] [address] [place], [address] GAP 11 Normal 5-15 [facility] Comment on above: Performed By: #### L 100.0100, L500.2500 ####[facility] [address] [place], [address] GFR/1.73 sq M.predicted among non-blacks MDRD (S/P/Bld) [Vol rate/Area] 78 mL/min/{1.73_m2} Normal >60 [facility] Comment on above: Result Comment: mL/m in/1.73m2 CKD-EPI Creatinine Equation (2020) Performed By: #### L 100.0100, L500.2500 ####[facility] [address] [place], [address] Glucose [Mass/Vol] 113 mg/dL High 70-[address] [facility] Comment on above: Performed By: #### L 100.0100, L500.2500 ####[facility] [address] [place], [address] Potassium [Moles/Vol] 4.7 mmol/L Normal 3.3-5.1 [facility] Comment on above: Result Comment: Hemo lysis present, Results??could be affected.?? Performed By: #### L 100.0100, L500.2500 ####[facility] [address] [place], [address] Sodium [Moles/Vol] 139 mmol/L Normal 133-[address] [facility] Comment on above: Performed By: #### L 100.0100, L500.2500 ####[facility] [address] [place], [address] Urea nitrogen [Mass/Vol] 15 mg/dL Normal 4-19 [facility] Comment on above: Performed By: #### L 100.0100, L500.2500 ####[facility] [address] [place], [address] Basophil percentageOrdered B y: Shaylavelasquez Castro on 12-18-2024 Basophils/100 WBC (Bld) 0.6 % 0-1 [facility] Bedside Glucoseon 12-18-2024 FINGERSTICK GLU 107 mg/dL High 74-106 [facility] Comment on above: Result Comment: FRANCINE GEMENT OF PATIENT CARE PER NURSING PROTOCOL Performed By: #### L 501.080 ####[facility] [address] [place], [address] FINGERSTICK GLU 160 mg/dL High 74-106 [facility] Comment on above: Result Comment: FRANCINE GEMENT OF PATIENT CARE PER NURSING PROTOCOL Performed By: #### L 501.080 ####[facility] [address] [place], [address] FINGERSTICK GLU 108 mg/dL High 74-106 [facility] Comment on above: Result Comment: FRANCINE SKINNER OF PATIENT CARE PER NURSING PROTOCOL Performed By: #### L 501.080 ####[facility] [address] [place], [address] CBC W/Diff, Automatedon 05- Absolute Lymph 1.51 X10 3/uL Normal 0.83-4.51 [facility] Comment on above: Performed By: #### L 100.0100, L500.2500 ####[facility] [address] [place], [address] Absolute Neut 6.4 X10 3/uL Normal 2.0-7.7 [facility] Comment on above: Performed By: #### L 100.0100, L500.2500 ####[facility] [address] [place], [address] Basophils/100 WBC (Bld) 0.6 % Normal 0-1 [facility] Comment on above: Performed By: #### L 100.0100, L500.2500 ####[facility] [address] [place], [address] Eosinophils/100 WBC (Bld) 1.7 % Normal 0-5 [facility] Comment on above: Performed By: #### L 100.0100, L500.2500 ####[facility] [address] [place], [address] Erythrocyte distribution width (RBC) [Ratio] 14.9 % High 11.6-14.6 [facility] Comment on above: Performed By: #### L 100.0100, L500.2500 ####[facility] [address] [place], [address] Hematocrit (Bld) [Volume fraction] 43.5 % Normal 37-47 [facility] Comment on above: Performed By: #### L 100.0100, L500.2500 ####[facility] [address] [place], [address] Hemoglobin (Bld) [Mass/Vol] 13.8 g/dL Normal 12.0-15.0 [facility] Comment on above: Performed By: #### L 100.0100, L500.2500 ####[facility] [address] [place], [address] IG% 0.300 Normal 0.0-0.9 [facility] Comment on above: Result Comment: IG% - Immature Granulocytes (promyelocytes, myelocytes andmetamyelocytes) > 1% indicates that a LEFT SHIFT is Present. Performed By: #### L 100.0100, L500.2500 ####[facility] [address] [place], [address] Lymphocytes/100 WBC (Bld) 17.3 % Low 19-41 [facility] Comment on above: Performed By: #### L 100.0100, L500.2500 ####[facility] [address] [place], [address] MCH (RBC) [Entitic mass] 28.2 pg Normal 27.0-32.0 [facility] Comment on above: Performed By: #### L 100.0100, L500.2500 ####[facility] [address] [place], [address] MCHC (RBC) [Mass/Vol] 31.7 g/dL Low 32-36 [facility] Comment on above: Performed By: #### L 100.0100, L500.2500 ####[facility] [address] [place], [address] MCV (RBC) [Entitic vol] 89.0 fL Normal 81-99 [facility] Comment on above: Performed By: #### L 100.0100, L500.2500 ####[facility] [address] [place], [address] Monocytes/100 WBC (Bld) 7.5 % Normal 0-10 [facility] Comment on above: Performed By: #### L 100.0100, L500.2500 ####[facility] [address] [place], [address] Neutrophils/100 WBC (Bld) 72.6 % High 47-70 [facility] Comment on above: Performed By: #### L 100.0100, L500.2500 ####[facility] [address] [place], [address] Nucleated RBC (Bld) [#/Vol] 0 10*3/uL Normal 0-5 [facility] Comment on above: Performed By: #### L 100.0100, L500.2500 ####[facility] [address] [place], [address] Platelet mean volume (Bld) [Entitic vol] 10.4 fL Normal 6.2-12.0 [facility] Comment on above: Performed By: #### L 100.0100, L500.2500 ####[facility] [address] [place], [address] Platelets (Bld) [#/Vol] 235 10*3/uL Normal 150-450 [facility] Comment on above: Performed By: #### L 100.0100, L500.2500 ####[facility] [address] [place], [address] RBC (Bld) [#/Vol] 4.89 10*6/uL Normal 4.2-5.[address] [facility] Comment on above: Performed By: #### L 100.0100, L500.2500 ####[facility] [address] [place], [address] RDW SD 48.4 fl High 35.1-43.9 [facility] Comment on above: Performed By: #### L 100.0100, L500.2500 ####[facility] [address] [place], [address] WBC (Bld) [#/Vol] 8.8 10*3/uL Normal 4.4-11.[address] [facility] Comment on above: Performed By: #### L 100.0100, L500.2500 ####[facility] [address] [place], [address] Carbon dioxide, total [Moles /volume] in Central venous bloodOrdered By: Shayla Castro on 12-18-2024 CO2 [Moles/Vol] 22.2 mmol/L 21.0-32.0 [facility] Chloride assayOrdered By: Zainab Castro on 12-18-2024 Chloride [Moles/Vol] 106 mmol/L 98-108 [facility] Eosinophil percentageOrdered By: Shayla Castro on 12-18-2024 Eosinophils/100 WBC (Bld) 1.7 % 0-5 [facility] Erythrocyte distribution wid th ratioOrdered By: Shayla Castro on 12-18-2024 Erythrocyte distribution width (RBC) [Ratio] 14.9 % High 11.6-14.6 [facility] Erythrocyte distribution wid th standard deviationOrdered By: Shayla Castro on 12-18-2024 Erythrocyte distribution width (RBC) [Ratio] 48.4 fl High 35.1-43.9 [facility] Glomerular filtration rate ( GFR) estimation/1.73 sq m using serum, plasma, or whole bOrdered By: Shayla Castro on 12-18-2024 GFR/1.73 sq M.predicted among non-blacks MDRD (S/P/Bld) [Vol rate/Area] 78 mL/min/{1.73_m2} >60 [facility] Comment on above: mL/min/1.73m2 CKD-EP I Creatinine Equation (2020) [facility] deOrdered By: Shayla Castro on 12-18-2024 Glucose [Mass/Vol] 107 mg/dL High 74-[address] [facility] Comment on above: MANAGEMENT OF PATIEN T CARE PER NURSING PROTOCOL Hematocrit Auto (Bld) [Volum e fraction]Ordered By: Shayla Castro on 12-18-2024 Hematocrit (Bld) [Volume fraction] 43.5 % 37-47 [facility] Hemoglobin A1con 12-18-2024 HbA1c (Bld) [Mass fraction] 6.6 % High <=5.6 [facility] Comment on above: Result Comment: Norm al < 5.7 % Prediabetic 5.7 - 6.4 % Diabetic >or= 6.5 % Please note range changes. Performed By: #### L 501.7533 ####[facility] [address] [place], [address] Hemoglobin A1c percentageOrd ered By: Alejandro Baca on 12-18-2024 HbA1c (Bld) [Mass fraction] 6.6 % High <5.7 [facility] Comment on above: Normal < 5.7 % Predi abetic 5.7 - 6.4 % Diabetic >or= 6.5 % Please note range changes. Hemoglobin measurementOrdere d By: Shayla Castro on 12-18-2024 Hemoglobin (Bld) [Mass/Vol] 13.8 g/dL 12.0-15.0 [facility] Immature granulocytes/100 WB C Auto (Bld)Ordered By: Shayla Castro on 12-18-2024 Immature granulocytes/100 WBC (Bld) 0.300 % 0.0-0.9 [facility] Comment on above: IG% - Immature Granu locytes (promyelocytes, myelocytes and metamyelocytes) > 1% indicates that a LEFT SHIFT is Present. MCV (mean corpuscular volume ) determinationOrdered By: Shayla Castro on 12-18-2024 MCV (RBC) [Entitic vol] 89.0 fL 81-99 [facility] Mean corpuscular hemoglobin (MCH) determinationOrdered By: Shayla Castro on 12-18-2024 MCH (RBC) [Entitic mass] 28.2 pg 27.0-32.0 [facility] Mean corpuscular hemoglobin concentration (MCHC) determinationOrdered By: Shayla Castro on 12-18-2024 MCHC (RBC) [Mass/Vol] 31.7 g/dL Low 32-36 [facility] Mean platelet volume determi nationOrdered By: Shayla Castro on 12-18-2024 Platelet mean volume (Bld) [Entitic vol] 10.4 fL 6.2-12.0 [facility] Monocyte percentageOrdered B y: Shayla Castro on 12-18-2024 Monocytes/100 WBC (Bld) 7.5 % 0-10 [facility] Neutrophil percentageOrdered By: Shayla Castro on 12-18-2024 Neutrophils/100 WBC (Bld) 72.6 % High 47-70 [facility] Nucleated red blood cell per centageOrdered By: Shayla Castro on 12-18-2024 Nucleated RBC/100 WBC (Bld) [Ratio] 0 % 0-5 [facility] Platelet countOrdered By: Zainab Castro on 12-18-2024 Platelets (Bld) [#/Vol] 235 10*3/uL 150-450 [facility] Potassium measurement (mass/ volume)Ordered By: Shayla Castro on 12-18-2024 Potassium (Unsp spec) [Mass/Vol] 4.7 mmol/L 3.3-5.1 [facility] Comment on above: Hemolysis present, R esults could be affected. RBC Auto (Bld) [#/Vol]Ordere d By: Shayla Castro on 12-18-2024 RBC (Bld) [#/Vol] 4.89 10*6/uL 4.2-5.[address] [facility] Serum creatinine measurement (mass/volume)Ordered By: Shayla Castro on 12-18-2024 Creatinine [Mass/Vol] 0.80 mg/dL 0.70-1.20 [facility] Serum glucose measurement (m ass/volume)Ordered By: Shayla Castro on 12-18-2024 Glucose [Mass/Vol] 113 mg/dL High 70-[address] [facility] Serum or plasma calcium bessie urement (mass/volume)Ordered By: Shayla Castro on 12-18-2024 Calcium [Mass/Vol] 9.6 mg/dL 7.6-11.[address] [facility] Serum or plasma urea nitroge n measurement (mass/volume)Ordered By: Shayla Castro on 12-18-2024 Urea nitrogen [Mass/Vol] 15 mg/dL 4-19 [facility] Sodium levelOrdered By: Shayla Castro on 12-18-2024 Sodium [Moles/Vol] 139 mmol/L 133-[address] [facility] Trough vancomycin levelOrder ed By: Shayla Castro on 12-18-2024 Vancomycin trough [Mass/Vol] 21.0 ug/mL High 5.0-15.0 [facility] Comment on above: Recommended goal tro [...] therapy recommended for serious lifethreatening infections include:- Rayfdqaahp-Voqmklgssuxs-Gxdteideg (Ventilator/Healtcare Associated)-Sepsis PLEASE CONTACT PHARMACY SERVICES (#0917) FOR INTERPRETATIONOF RESULTS. White blood cell (WBC) count Ordered By: Shayla Castro on 12-18-2024 WBC (Bld) [#/Vol] 8.8 10*3/uL 4.4-11.[address] [facility] 12 Lead EKGon 12-17-2024 12 Lead EKG Normal [facility] Absolute lymphocyte countOrd ered By: Tang Mendiola on 12-17-2024 Lymphocytes Auto (Unsp spec) [#/Vol] 1.23 10*3/uL 0.83-4.51 [facility] Absolute neutrophil countOrd ered By: Tang Mendiola on 12-17-2024 Neutrophils (Bld) [#/Vol] 6.1 10*3/uL 2.0-7.7 [facility] Anaerobic cultureOrdered By: Tang Mendiola on 12-17-2024 Bacteria identified Anaer cx Nom (Unsp spec) No growth in 5 days. [facility] Anion gap in Serum or Plasma Ordered By: Tang Medniola on 12-17-2024 Anion gap [Moles/Vol] 10 mmol/L 5-15 [facility] Automated lymphocyte count a s percentage of total leukocytesOrdered By: Tang Mendiola on 12-17-2024 Lymphocytes/100 WBC Auto (Unsp spec) 14.9 % Low 19-41 [facility] BUN/creatinine ratioOrdered By: Tang Mendiola on 12-17-2024 Urea nitrogen/Creatinine [Mass ratio] 22.7 mg/mg High 10-20 [facility] Basic Metabolic Profile (BMP )on 12-17-2024 BUN/CRE 22.7 RATIO High 10-20 [facility] Comment on above: Performed By: #### L 100.0100, L501.6710, L101.9900, L500.2500 ####[facility] [address] [place], [address] Calcium [Mass/Vol] 9.6 mg/dL Normal 7.6-11.[address] [facility] Comment on above: Performed By: #### L 100.0100, L501.6710, L101.9900, L500.2500 ####[facility] [address] [place], [address] Chloride [Moles/Vol] 102 mmol/L Normal 98-108 [facility] Comment on above: Performed By: #### L 100.0100, L501.6710, L101.9900, L500.2500 ####[facility] [address] [place], [address] CO2 [Moles/Vol] 24.6 mmol/L Normal 21.0-32.0 [facility] Comment on above: Performed By: #### L 100.0100, L501.6710, L101.9900, L500.2500 ####[facility] [address] [place], [address] Creatinine [Mass/Vol] 0.79 mg/dL Normal 0.70-1.20 [facility] Comment on above: Performed By: #### L 100.0100, L501.6710, L101.9900, L500.2500 ####[facility] [address] [place], [address] ECRCL 75.70 ml/min Normal 50-250 [facility] Comment on above: Performed By: #### L 100.0100, L501.6710, L101.9900, L500.2500 ####[facility] [address] [place], [address] GAP 10 Normal 5-15 [facility] Comment on above: Performed By: #### L 100.0100, L501.6710, L101.9900, L500.2500 ####[facility] [address] [place], [address] GFR/1.73 sq M.predicted among non-blacks MDRD (S/P/Bld) [Vol rate/Area] 80 mL/min/{1.73_m2} Normal >60 [facility] Comment on above: Result Comment: mL/m in/1.73m2 CKD-EPI Creatinine Equation (2020) Performed By: #### L 100.0100, L501.6710, L101.9900, L500.2500 ####[facility] [address] [place], [address] Glucose [Mass/Vol] 146 mg/dL High 70-[address] [facility] Comment on above: Performed By: #### L 100.0100, L501.6710, L101.9900, L500.2500 ####[facility] [address] [place], [address] Potassium [Moles/Vol] 4.0 mmol/L Normal 3.3-5.1 [facility] Comment on above: Performed By: #### L 100.0100, L501.6710, L101.9900, L500.2500 ####[facility] [address] [place], [address] Sodium [Moles/Vol] 136 mmol/L Normal 133-[address] [facility] Comment on above: Performed By: #### L 100.0100, L501.6710, L101.9900, L500.2500 ####[facility] [address] [place], [address] Urea nitrogen [Mass/Vol] 18 mg/dL Normal 4-19 [facility] Comment on above: Performed By: #### L 100.0100, L501.6710, L101.9900, L500.2500 ####[facility] [address] [place], [address] Basophil percentageOrdered B y: Tang Mendiola on 12-17-2024 Basophils/100 WBC (Bld) 0.6 % 0-1 [facility] Bedside Glucoseon 12-17-2024 FINGERSTICK GLU 125 mg/dL High 74-106 [facility] Comment on above: Result Comment: FRANCINE GEMENT OF PATIENT CARE PER NURSING PROTOCOL Performed By: #### L 501.080 ####[facility] [address] [place], [address] FINGERSTICK GLU 163 mg/dL High 74-106 [facility] Comment on above: Result Comment: FRANCINE GEMENT OF PATIENT CARE PER NURSING PROTOCOL Performed By: #### L 501.080 ####[facility] [address] [place], [address] CBC W/Diff, Automatedon 05- Absolute Lymph 1.23 X10 3/uL Normal 0.83-4.51 [facility] Comment on above: Performed By: #### L 100.0100, L501.6710, L101.9900, L500.2500 ####[facility] [address] [place], [address] Absolute Neut 6.1 X10 3/uL Normal 2.0-7.7 [facility] Comment on above: Performed By: #### L 100.0100, L501.6710, L101.9900, L500.2500 ####[facility] [address] [place], [address] Basophils/100 WBC (Bld) 0.6 % Normal 0-1 [facility] Comment on above: Performed By: #### L 100.0100, L501.6710, L101.9900, L500.2500 ####[facility] [address] [place], [address] Eosinophils/100 WBC (Bld) 1.1 % Normal 0-5 [facility] Comment on above: Performed By: #### L 100.0100, L501.6710, L101.9900, L500.2500 ####[facility] [address] [place], [address] Erythrocyte distribution width (RBC) [Ratio] 15.1 % High 11.6-14.6 [facility] Comment on above: Performed By: #### L 100.0100, L501.6710, L101.9900, L500.2500 ####[facility] [address] [place], [address] Hematocrit (Bld) [Volume fraction] 43.0 % Normal 37-47 [facility] Comment on above: Performed By: #### L 100.0100, L501.6710, L101.9900, L500.2500 ####[facility] [address] [place], [address] Hemoglobin (Bld) [Mass/Vol] 13.9 g/dL Normal 12.0-15.0 [facility] Comment on above: Performed By: #### L 100.0100, L501.6710, L101.9900, L500.2500 ####[facility] [address] [place], [address] IG% 0.500 Normal 0.0-0.9 [facility] Comment on above: Result Comment: IG% - Immature Granulocytes (promyelocytes, myelocytes andmetamyelocytes) > 1% indicates that a LEFT SHIFT is Present. Performed By: #### L 100.0100, L501.6710, L101.9900, L500.2500 ####[facility] [address] [place], [address] Lymphocytes/100 WBC (Bld) 14.9 % Low 19-41 [facility] Comment on above: Performed By: #### L 100.0100, L501.6710, L101.9900, L500.2500 ####[facility] [address] [place], [address] MCH (RBC) [Entitic mass] 28.3 pg Normal 27.0-32.0 [facility] Comment on above: Performed By: #### L 100.0100, L501.6710, L101.9900, L500.2500 ####[facility] [address] [place], [address] MCHC (RBC) [Mass/Vol] 32.3 g/dL Normal 32-36 [facility] Comment on above: Performed By: #### L 100.0100, L501.6710, L101.9900, L500.2500 ####[facility] [address] [place], [address] MCV (RBC) [Entitic vol] 87.4 fL Normal 81-99 [facility] Comment on above: Performed By: #### L 100.0100, L501.6710, L101.9900, L500.2500 ####[facility] [address] [place], [address] Monocytes/100 WBC (Bld) 8.6 % Normal 0-10 [facility] Comment on above: Performed By: #### L 100.0100, L501.6710, L101.9900, L500.2500 ####[facility] [address] [place], [address] Neutrophils/100 WBC (Bld) 74.3 % High 47-70 [facility] Comment on above: Performed By: #### L 100.0100, L501.6710, L101.9900, L500.2500 ####[facility] [address] [place], [address] Nucleated RBC (Bld) [#/Vol] 0 10*3/uL Normal 0-5 [facility] Comment on above: Performed By: #### L 100.0100, L501.6710, L101.9900, L500.2500 ####[facility] [address] [place], [address] Platelet mean volume (Bld) [Entitic vol] 10.2 fL Normal 6.2-12.0 [facility] Comment on above: Performed By: #### L 100.0100, L501.6710, L101.9900, L500.2500 ####[facility] [address] [place], [address] Platelets (Bld) [#/Vol] 227 10*3/uL Normal 150-450 [facility] Comment on above: Performed By: #### L 100.0100, L501.6710, L101.9900, L500.2500 ####[facility] [address] [place], [address] RBC (Bld) [#/Vol] 4.92 10*6/uL Normal 4.2-5.[address] [facility] Comment on above: Performed By: #### L 100.0100, L501.6710, L101.9900, L500.2500 ####[facility] [address] [place], [address] RDW SD 48.6 fl High 35.1-43.9 [facility] Comment on above: Performed By: #### L 100.0100, L501.6710, L101.9900, L500.2500 ####[facility] [address] [place], [address] WBC (Bld) [#/Vol] 8.2 10*3/uL Normal 4.4-11.[address] [facility] Comment on above: Performed By: #### L 100.0100, L501.6710, L101.9900, L500.2500 ####[facility] [address] [place], [address] CRPon 12-17-2024 C-REACTIVE PROT 32.40 mg/L High 0.0-3.0 [facility] Comment on above: Performed By: #### L 100.0100, L501.6710, L101.9900, L500.2500 ####[facility] [address] [place], [address] Carbon dioxide, total [Moles /volume] in Central venous bloodOrdered By: Tang Mendiola on 12-17-2024 CO2 [Moles/Vol] 24.6 mmol/L 21.0-32.0 [facility] Chloride assayOrdered By: Erasmo Mendiola on 12-17-2024 Chloride [Moles/Vol] 102 mmol/L 98-108 [facility] Consultation - Surgicalon Consultation - Surgical Normal [facility] Emergency Department Summary on 12-17-2024 Emergency Department Summary Normal [facility] Eosinophil percentageOrdered By: Tang Mendiola on 12-17-2024 Eosinophils/100 WBC (Bld) 1.1 % 0-5 [facility] Erythrocyte Sed Rateon 12-17 SED RATE 48 mm/hr High 0-30 [facility] Comment on above: Performed By: #### L 100.0100, L501.6710, L101.9900, L500.2500 ####[facility] [address] [place], [address] Erythrocyte distribution wid th ratioOrdered By: Tang Mendiola on 12-17-2024 Erythrocyte distribution width (RBC) [Ratio] 15.1 % High 11.6-14.6 [facility] Erythrocyte distribution wid th standard deviationOrdered By: Tang Mendiola on 12-17-2024 Erythrocyte distribution width (RBC) [Ratio] 48.6 fl High 35.1-43.9 [facility] Erythrocyte sedimentation ra teOrdered By: Tang Mendiola on 12-17-2024 ESR (Bld) [Velocity] 48 mm/h High 0-30 [facility] Glomerular filtration rate ( GFR) estimation/1.73 sq m using serum, plasma, or whole bOrdered By: Tang Mendiola on 12-17-2024 GFR/1.73 sq M.predicted among non-blacks MDRD (S/P/Bld) [Vol rate/Area] 80 mL/min/{1.73_m2} >60 [facility] Comment on above: mL/min/1.73m2 CKD-EP I Creatinine Equation (2020) Gram stainOrdered By: Tang cardenas on 12-17-2024 Microscopic observation Gram stain Nom (Unsp spec) [facility] H AND P Exam - Hospitaliston 12-17-2024 H&P Exam - Hospitalist Normal [facility] Hematocrit Auto (Bld) [Volum e fraction]Ordered By: Tang Mendiola on 12-17-2024 Hematocrit (Bld) [Volume fraction] 43.0 % 37-47 [facility] Hemoglobin measurementOrdere d By: Tang Mendiola on 12-17-2024 Hemoglobin (Bld) [Mass/Vol] 13.9 g/dL 12.0-15.0 [facility] Immature granulocytes/100 WB C Auto (Bld)Ordered By: Tang Mendiola on 12-17-2024 Immature granulocytes/100 WBC (Bld) 0.500 % 0.0-0.9 [facility] Comment on above: IG% - Immature Granu locytes (promyelocytes, myelocytes and metamyelocytes) > 1% indicates that a LEFT SHIFT is Present. MCV (mean corpuscular volume ) determinationOrdered By: Tang Mendiola on 12-17-2024 MCV (RBC) [Entitic vol] 87.4 fL 81-99 [facility] Mean corpuscular hemoglobin (MCH) determinationOrdered By: Tang Mendiola on 12-17-2024 MCH (RBC) [Entitic mass] 28.3 pg 27.0-32.0 [facility] Mean corpuscular hemoglobin concentration (MCHC) determinationOrdered By: Tang Mendiola on 12-17-2024 MCHC (RBC) [Mass/Vol] 32.3 g/dL 32-36 [facility] Mean platelet volume determi nationOrdered By: Tang Mendiola on 12-17-2024 Platelet mean volume (Bld) [Entitic vol] 10.2 fL 6.2-12.0 [facility] Monocyte percentageOrdered B y: Tang Mendiola on 12-17-2024 Monocytes/100 WBC (Bld) 8.6 % 0-10 [facility] Neutrophil percentageOrdered By: Tang Mendiola on 12-17-2024 Neutrophils/100 WBC (Bld) 74.3 % High 47-70 [facility] Nucleated red blood cell per centageOrdered By: Tang Mendiola on 12-17-2024 Nucleated RBC/100 WBC (Bld) [Ratio] 0 % 0-5 [facility] Platelet countOrdered By: Erasmo Mendiola on 12-17-2024 Platelets (Bld) [#/Vol] 227 10*3/uL 150-450 [facility] Potassium measurement (mass/ volume)Ordered By: Tang Mendiola on 12-17-2024 Potassium (Unsp spec) [Mass/Vol] 4.0 mmol/L 3.3-5.1 [facility] RBC Auto (Bld) [#/Vol]Ordere d By: Tang Mendiola on 12-17-2024 RBC (Bld) [#/Vol] 4.92 10*6/uL 4.2-5.[address] [facility] Serum creatinine measurement (mass/volume)Ordered By: Tang Mendiola on 12-17-2024 Creatinine [Mass/Vol] 0.79 mg/dL 0.70-1.20 [facility] Serum glucose measurement (m ass/volume)Ordered By: Tang Mendiola on 12-17-2024 Glucose [Mass/Vol] 146 mg/dL High 70-99 [facility] Serum or plasma C reactive p rotein measurement (mass/volume)Ordered By: Tnag Mendiola on 12-17-2024 CRP [Mass/Vol] 32.40 mg/L High 0.0-3.0 [facility] Serum or plasma calcium bessie urement (mass/volume)Ordered By: Tang Mendiola on 12-17-2024 Calcium [Mass/Vol] 9.6 mg/dL 7.6-11.[address] [facility] Serum or plasma urea nitroge n measurement (mass/volume)Ordered By: Tang Mendiola on 12-17-2024 Urea nitrogen [Mass/Vol] 18 mg/dL 4-19 [facility] Serum or plasma uric acid me asurement (mass/volume)Ordered By: Shayla Castro on 12-17-2024 Urate [Mass/Vol] 5.2 mg/dL 2.6-6.0 [facility] Comment on above: The drugs N-Acetylcy steine and Metamizole may falsely depress this assay. Sodium levelOrdered By: Tang Mendiola on 12-17-2024 Sodium [Moles/Vol] 136 mmol/L 133-[address] [facility] Uric Acidon 12-17-2024 URIC 5.2 mg/dL Normal 2.6-6.0 [facility] Comment on above: Result Comment: The drugs N-Acetylcysteine and Metamizole may falselydepress this assay. Performed By: #### L 501.1400 ####[facility] [address] [place], [address] White blood cell (WBC) count Ordered By: Tang Mendiola on 12-17-2024 WBC (Bld) [#/Vol] 8.2 10*3/uL 4.4-11.[address] [facility] Wrist min 3 Viewson 12-18-19 25 Wrist min 3 Views Normal [facility] Ankle Brachial Indexon 12-15 Ankle Brachial Index Normal [facility] Carotid Duplex Ultrasoundon 12-15-2024 Carotid Duplex Ultrasound Normal [facility] Oncology Visit Reporton Oncology Visit Report Normal [facility] Neurology Visit Reporton Neurology Visit Report Normal [facility] Surgery Visit Reporton 12-07 Surgery Visit Report Normal [facility] SP/HP.SP.Ed 11-30-2024 SP/HP.SP.EV Normal [facility] Bedside Glucoseon 11-26-2024 FINGERSTICK GLU 146 mg/dL High 74-106 [facility] Comment on above: Result Comment: FRANCINE GEMENT OF PATIENT CARE PER NURSING PROTOCOL Performed By: #### L 501.080 ####[facility] [address] [facility] [address] FINGERSTICK GLU 151 mg/dL High 74-106 [facility] Comment on above: Result Comment: FRANCINE GEMENT OF PATIENT CARE PER NURSING PROTOCOL Performed By: #### L 501.080 ####[facility] [address] [facility] [address] [facility] deOrdered By: Ada Sloiman on 11-26-2024 Glucose [Mass/Vol] 146 mg/dL High 74-[address] [facility] Comment on above: MANAGEMENT OF PATIEN T CARE PER NURSING PROTOCOL Bedside Glucoseon 11-25-2024 FINGERSTICK GLU 109 mg/dL High 74-106 [facility] Comment on above: Result Comment: FRANCINE GEMENT OF PATIENT CARE PER NURSING PROTOCOL Performed By: #### L 501.080 ####[facility] [address] [facility] [address] FINGERSTICK GLU 134 mg/dL High 74-106 [facility] Comment on above: Result Comment: FRANCINE GEMENT OF PATIENT CARE PER NURSING PROTOCOL Performed By: #### L 501.080 ####[facility] [address] [facility] [address] Discharge Instructionon 11-03 Discharge Instruction Normal [facility] Bedside Glucoseon 11-24-2024 FINGERSTICK GLU 142 mg/dL High 74-106 [facility] Comment on above: Result Comment: FRANCINE GEMENT OF PATIENT CARE PER NURSING PROTOCOL Performed By: #### L 501.080 ####[facility] [address] [place], [address] FINGERSTICK GLU 123 mg/dL High 74-106 [facility] Comment on above: Result Comment: FRANCINE GEMENT OF PATIENT CARE PER NURSING PROTOCOL Performed By: #### L 501.080 ####[facility] [address] [place], [address] Absolute lymphocyte countOrd ered By: Ada Soliman on 11-23-2024 Lymphocytes Auto (Unsp spec) [#/Vol] 2.14 10*3/uL 0.83-4.51 [facility] Absolute neutrophil countOrd ered By: Ada Soliman on 11-23-2024 Neutrophils (Bld) [#/Vol] 5.8 10*3/uL 2.0-7.7 [facility] Anion gap in Serum or Plasma Ordered By: Ada Soliman on 11-23-2024 Anion gap [Moles/Vol] 12 mmol/L 5-15 [facility] Automated lymphocyte count a s percentage of total leukocytesOrdered By: Ada Soliman on 11-23-2024 Lymphocytes/100 WBC Auto (Unsp spec) 24.4 % 19-41 [facility] BUN/creatinine ratioOrdered By: Ada Soliman on 11-23-2024 Urea nitrogen/Creatinine [Mass ratio] 23.8 mg/mg High 10-20 [facility] Basophil percentageOrdered B y: Ada Soliman on 11-23-2024 Basophils/100 WBC (Bld) 0.6 % 0-1 [facility] Bedside Glucoseon 11-23-2024 FINGERSTICK GLU 132 mg/dL High 74-106 [facility] Comment on above: Result Comment: FRANCINE GEMENT OF PATIENT CARE PER NURSING PROTOCOL Performed By: #### L 501.080 ####[facility] [address] [place], [address] FINGERSTICK GLU 123 mg/dL High 74-106 [facility] Comment on above: Result Comment: FRANCINE GEMENT OF PATIENT CARE PER NURSING PROTOCOL Performed By: #### L 501.080 ####[facility] [address] [place], [address] Bilirubin, totalOrdered By: Ada Soliman on 11-23-2024 Bilirubin [Mass/Vol] 0.42 mg/dL 0.00-1.30 [facility] CBC W/Diff, Automatedon 11-03 Absolute Lymph 2.14 X10 3/uL Normal 0.83-4.51 [facility] Comment on above: Performed By: #### L 501.5200, L100.0100, L501.2300, L500.4050 ####[facility] [address] [place], [address] Absolute Neut 5.8 X10 3/uL Normal 2.0-7.7 [facility] Comment on above: Performed By: #### L 501.5200, L100.0100, L501.2300, L500.4050 ####[facility] [address] [place], [address] Basophils/100 WBC (Bld) 0.6 % Normal 0-1 [facility] Comment on above: Performed By: #### L 501.5200, L100.0100, L501.2300, L500.4050 ####[facility] [address] [place], [address] Eosinophils/100 WBC (Bld) 1.4 % Normal 0-5 [facility] Comment on above: Performed By: #### L 501.5200, L100.0100, L501.2300, L500.4050 ####[facility] [address] [place], [address] Erythrocyte distribution width (RBC) [Ratio] 15.3 % High 11.6-14.6 [facility] Comment on above: Performed By: #### L 501.5200, L100.0100, L501.2300, L500.4050 ####[facility] [address] [place], [address] Hematocrit (Bld) [Volume fraction] 45.2 % Normal 37-47 [facility] Comment on above: Performed By: #### L 501.5200, L100.0100, L501.2300, L500.4050 ####[facility] [address] [place], [address] Hemoglobin (Bld) [Mass/Vol] 14.4 g/dL Normal 12.0-15.0 [facility] Comment on above: Performed By: #### L 501.5200, L100.0100, L501.2300, L500.4050 ####[facility] [address] [place], [address] IG% 0.300 Normal 0.0-0.9 [facility] Comment on above: Result Comment: IG% - Immature Granulocytes (promyelocytes, myelocytes andmetamyelocytes) > 1% indicates that a LEFT SHIFT is Present. Performed By: #### L 501.5200, L100.0100, L501.2300, L500.4050 ####[facility] [address] [place], [address] Lymphocytes/100 WBC (Bld) 24.4 % Normal 19-41 [facility] Comment on above: Performed By: #### L 501.5200, L100.0100, L501.2300, L500.4050 ####[facility] [address] [place], [address] MCH (RBC) [Entitic mass] 28.2 pg Normal 27.0-32.0 [facility] Comment on above: Performed By: #### L 501.5200, L100.0100, L501.2300, L500.4050 ####[facility] [address] [place], [address] MCHC (RBC) [Mass/Vol] 31.9 g/dL Low 32-36 [facility] Comment on above: Performed By: #### L 501.5200, L100.0100, L501.2300, L500.4050 ####[facility] [address] [place], [address] MCV (RBC) [Entitic vol] 88.5 fL Normal 81-99 [facility] Comment on above: Performed By: #### L 501.5200, L100.0100, L501.2300, L500.4050 ####[facility] [address] [place], [address] Monocytes/100 WBC (Bld) 6.7 % Normal 0-10 [facility] Comment on above: Performed By: #### L 501.5200, L100.0100, L501.2300, L500.4050 ####[facility] [address] [place], [address] Neutrophils/100 WBC (Bld) 66.6 % Normal 47-70 [facility] Comment on above: Performed By: #### L 501.5200, L100.0100, L501.2300, L500.4050 ####[facility] [address] [place], [address] Nucleated RBC (Bld) [#/Vol] 0 10*3/uL Normal 0-5 [facility] Comment on above: Performed By: #### L 501.5200, L100.0100, L501.2300, L500.4050 ####[facility] [address] [place], [address] Platelet mean volume (Bld) [Entitic vol] 9.9 fL Normal 6.2-12.0 [facility] Comment on above: Performed By: #### L 501.5200, L100.0100, L501.2300, L500.4050 ####[facility] [address] [place], [address] Platelets (Bld) [#/Vol] 264 10*3/uL Normal 150-450 [facility] Comment on above: Performed By: #### L 501.5200, L100.0100, L501.2300, L500.4050 ####[facility] [address] [place], [address] RBC (Bld) [#/Vol] 5.11 10*6/uL Normal 4.2-5.[address] [facility] Comment on above: Performed By: #### L 501.5200, L100.0100, L501.2300, L500.4050 ####[facility] [address] [place], [address] RDW SD 48.8 fl High 35.1-43.9 [facility] Comment on above: Performed By: #### L 501.5200, L100.0100, L501.2300, L500.4050 ####[facility] [address] [place], [address] WBC (Bld) [#/Vol] 8.8 10*3/uL Normal 4.4-11.[address] [facility] Comment on above: Performed By: #### L 501.5200, L100.0100, L501.2300, L500.4050 ####[facility] [address] [place], [address] Carbon dioxide, total [Moles /volume] in Central venous bloodOrdered By: Ada Soliman on 11-23-2024 CO2 [Moles/Vol] 20.8 mmol/L Low 21.0-32.0 [facility] Chloride assayOrdered By: Mary Lou Soliman on 11-23-2024 Chloride [Moles/Vol] 105 mmol/L 98-108 [facility] Comprehensive Metabolic Prof ilon 11-23-2024 Albumin [Mass/Vol] 3.9 g/dL Normal 3.4-4.[address] [facility] Comment on above: Performed By: #### L 501.5200, L100.0100, L501.2300, L500.4050 ####[facility] [address] [place], [address] Albumin/Globulin [Mass ratio] 1.1 {ratio} Normal 0.9-2.4 [facility] Comment on above: Performed By: #### L 501.5200, L100.0100, L501.2300, L500.4050 ####[facility] [address] [place], [address] ALK PHOS 91 U/L Normal 35-104 [facility] Comment on above: Performed By: #### L 501.5200, L100.0100, L501.2300, L500.4050 ####[facility] [address] [place], [address] ALT [Catalytic activity/Vol] 15 U/L Normal <=34 [facility] Comment on above: Performed By: #### L 501.5200, L100.0100, L501.2300, L500.4050 ####[facility] [address] [place], [address] AST [Catalytic activity/Vol] 25 U/L Normal <=31 [facility] Comment on above: Performed By: #### L 501.5200, L100.0100, L501.2300, L500.4050 ####[facility] [address] [place], [address] Bilirubin [Mass/Vol] 0.42 mg/dL Normal 0.00-1.30 [facility] Comment on above: Performed By: #### L 501.5200, L100.0100, L501.2300, L500.4050 ####[facility] [address] [place], [address] BUN/CRE 23.8 RATIO High 10-20 [facility] Comment on above: Performed By: #### L 501.5200, L100.0100, L501.2300, L500.4050 ####[facility] [address] [place], [address] Calcium [Mass/Vol] 9.7 mg/dL Normal 7.6-11.[address] [facility] Comment on above: Performed By: #### L 501.5200, L100.0100, L501.2300, L500.4050 ####[facility] [address] [place], [address] Chloride [Moles/Vol] 105 mmol/L Normal 98-108 [facility] Comment on above: Performed By: #### L 501.5200, L100.0100, L501.2300, L500.4050 ####[facility] [address] [place], [address] CO2 [Moles/Vol] 20.8 mmol/L Low 21.0-32.0 [facility] Comment on above: Performed By: #### L 501.5200, L100.0100, L501.2300, L500.4050 ####[facility] [address] [place], [address] Creatinine [Mass/Vol] 0.82 mg/dL Normal 0.70-1.20 [facility] Comment on above: Performed By: #### L 501.5200, L100.0100, L501.2300, L500.4050 ####[facility] [address] [place], [address] ECRCL 74.17 ml/min Normal 50-250 [facility] Comment on above: Performed By: #### L 501.5200, L100.0100, L501.2300, L500.4050 ####[facility] [address] [place], [address] GAP 12 Normal 5-15 [facility] Comment on above: Performed By: #### L 501.5200, L100.0100, L501.2300, L500.4050 ####[facility] [address] [place], [address] GFR/1.73 sq M.predicted among non-blacks MDRD (S/P/Bld) [Vol rate/Area] 76 mL/min/{1.73_m2} Normal >60 [facility] Comment on above: Result Comment: mL/m in/1.73m2 CKD-EPI Creatinine Equation (2020) Performed By: #### L 501.5200, L100.0100, L501.2300, L500.4050 ####[facility] [address] [place], [address] Globulin (S) [Mass/Vol] 3.5 g/dL Normal 2.2-4.2 [facility] Comment on above: Performed By: #### L 501.5200, L100.0100, L501.2300, L500.4050 ####[facility] [address] [place], [address] Glucose [Mass/Vol] 132 mg/dL High 70-[address] [facility] Comment on above: Performed By: #### L 501.5200, L100.0100, L501.2300, L500.4050 ####[facility] [address] [place], [address] Potassium [Moles/Vol] 4.2 mmol/L Normal 3.3-5.1 [facility] Comment on above: Performed By: #### L 501.5200, L100.0100, L501.2300, L500.4050 ####[facility] [address] [place], [address] Sodium [Moles/Vol] 137 mmol/L Normal 133-[address] [facility] Comment on above: Performed By: #### L 501.5200, L100.0100, L501.2300, L500.4050 ####[facility] [address] [place], [address] T PROT 7.4 g/dL Normal 5.9-8.4 [facility] Comment on above: Performed By: #### L 501.5200, L100.0100, L501.2300, L500.4050 ####[facility] [address] [place], [address] Urea nitrogen [Mass/Vol] 20 mg/dL High 4-19 [facility] Comment on above: Performed By: #### L 501.5200, L100.0100, L501.2300, L500.4050 ####[facility] [address] [place], [address] Eosinophil percentageOrdered By: Ada Soliman on 11-23-2024 Eosinophils/100 WBC (Bld) 1.4 % 0-5 [facility] Erythrocyte distribution wid th ratioOrdered By: Ada Soliman on 11-23-2024 Erythrocyte distribution width (RBC) [Ratio] 15.3 % High 11.6-14.6 [facility] Erythrocyte distribution wid th standard deviationOrdered By: Ada Soliman on 11-23-2024 Erythrocyte distribution width (RBC) [Ratio] 48.8 fl High 35.1-43.9 [facility] Glomerular filtration rate ( GFR) estimation/1.73 sq m using serum, plasma, or whole bOrdered By: Ada Soliman on 11-23-2024 GFR/1.73 sq M.predicted among non-blacks MDRD (S/P/Bld) [Vol rate/Area] 76 mL/min/{1.73_m2} >60 [facility] Comment on above: mL/min/1.73m2 CKD-EP I Creatinine Equation (2020) Hematocrit Auto (Bld) [Volum e fraction]Ordered By: Ada Soliman on 11-23-2024 Hematocrit (Bld) [Volume fraction] 45.2 % 37-47 [facility] Hemoglobin measurementOrdere d By: Ada Soliman on 11-23-2024 Hemoglobin (Bld) [Mass/Vol] 14.4 g/dL 12.0-15.0 [facility] Immature granulocytes/100 WB C Auto (Bld)Ordered By: Ada Soliman on 11-23-2024 Immature granulocytes/100 WBC (Bld) 0.300 % 0.0-0.9 [facility] Comment on above: IG% - Immature Granu locytes (promyelocytes, myelocytes and metamyelocytes) > 1% indicates that a LEFT SHIFT is Present. Laboratory - Chemistry and C hemistry - challengeOrdered By: Ada Soliman on 11-23-2024 AST [Catalytic activity/Vol] 25 U/L <32 [facility] MCV (mean corpuscular volume ) determinationOrdered By: Ada Soliman on 11-23-2024 MCV (RBC) [Entitic vol] 88.5 fL 81-99 [facility] Magnesiumon 11-23-2024 Magnesium [Mass/Vol] 2.1 mg/dL Normal 1.5-2.2 [facility] Comment on above: Performed By: #### L 501.5200, L100.0100, L501.2300, L500.4050 ####[facility] [address] [place], [address] Magnesium measurement (mass/ volume)Ordered By: Ada Soliman on 11-23-2024 Magnesium (Unsp spec) [Mass/Vol] 2.1 mg/dL 1.5-2.2 [facility] Mean corpuscular hemoglobin (MCH) determinationOrdered By: Ada Soliman on 11-23-2024 MCH (RBC) [Entitic mass] 28.2 pg 27.0-32.0 [facility] Mean corpuscular hemoglobin concentration (MCHC) determinationOrdered By: Ada Soliman on 11-23-2024 MCHC (RBC) [Mass/Vol] 31.9 g/dL Low 32-36 [facility] Mean platelet volume determi nationOrdered By: Ada Soliman on 11-23-2024 Platelet mean volume (Bld) [Entitic vol] 9.9 fL 6.2-12.0 [facility] Monocyte percentageOrdered B y: Ada Rowlandstacie on 11-23-2024 Monocytes/100 WBC (Bld) 6.7 % 0-10 [facility] Neutrophil percentageOrdered By: Ada Janny on 11-23-2024 Neutrophils/100 WBC (Bld) 66.6 % 47-70 [facility] Nucleated red blood cell per centageOrdered By: Ada Janny on 11-23-2024 Nucleated RBC/100 WBC (Bld) [Ratio] 0 % 0-5 [facility] Phosphoruson 11-23-2024 Phosphate [Mass/Vol] 3.2 mg/dL Normal 2.7-4.5 [facility] Comment on above: Performed By: #### L 501.5200, L100.0100, L501.2300, L500.4050 ####[facility] [address] [place], [place], [id number] Platelet countOrdered By: Mary Lou jayna Janny on 11-23-2024 Platelets (Bld) [#/Vol] 264 10*3/uL 150-450 [facility] Potassium measurement (mass/ volume)Ordered By: Ada Janny on 11-23-2024 Potassium (Unsp spec) [Mass/Vol] 4.2 mmol/L 3.3-5.1 [facility] RBC Auto (Bld) [#/Vol]Ordere d By: Ada Janny on 11-23-2024 RBC (Bld) [#/Vol] 5.11 10*6/uL 4.2-5.[address] [facility] Serum creatinine measurement (mass/volume)Ordered By: Ada Soliman on 11-23-2024 Creatinine [Mass/Vol] 0.82 mg/dL 0.70-1.20 [facility] Serum globulin measurementOr dered By: Ada Soilman on 11-23-2024 Globulin (S) [Mass/Vol] 3.5 g/dL 2.2-4.2 [facility] Serum glucose measurement (m ass/volume)Ordered By: Ada Soliman on 11-23-2024 Glucose [Mass/Vol] 132 mg/dL High 70-[address] [facility] Serum or plasma alanine herrera otransferase (ALT) measurementOrdered By: Ada Janny on 11-23-2024 ALT [Catalytic activity/Vol] 15 U/L <35 [facility] Serum or plasma albumin bessie urement (mass/volume)Ordered By: Ada Soliman on 11-23-2024 Albumin [Mass/Vol] 3.9 g/dL 3.4-4.[address] [facility] Serum or plasma albumin/glob ulin mass ratioOrdered By: Ada Soliman on 11-23-2024 Albumin/Globulin [Mass ratio] 1.1 {ratio} 0.9-2.4 [facility] Serum or plasma alkaline gloria sphatase measurementOrdered By: Ada Janny on 11-23-2024 ALP [Catalytic activity/Vol] 91 U/L 35-104 [facility] Serum or plasma calcium bessie urement (mass/volume)Ordered By: Ada Soliman on 11-23-2024 Calcium [Mass/Vol] 9.7 mg/dL 7.6-11.[address] [facility] Serum or plasma urea nitroge n measurement (mass/volume)Ordered By: Ada Soliman on 11-23-2024 Urea nitrogen [Mass/Vol] 20 mg/dL High 4-19 [facility] Sodium levelOrdered By: Ada Janny on 11-23-2024 Sodium [Moles/Vol] 137 mmol/L 133-[address] [facility] Total proteinOrdered By: Nadege moshe Soliman on 11-23-2024 Protein [Mass/Vol] 7.4 g/dL 5.9-8.[address] [facility] White blood cell (WBC) count Ordered By: Ada Janny on 11-23-2024 WBC (Bld) [#/Vol] 8.8 10*3/uL 4.4-11.[address] [facility] Bedside Glucoseon 11-22-2024 FINGERSTICK GLU 172 mg/dL High 74-106 [facility] Comment on above: Result Comment: FRANCINE SKINNER OF PATIENT CARE PER NURSING PROTOCOL Performed By: #### L 501.080 ####[facility] [address] [place], [place], [address] FINGERSTICK GLU 127 mg/dL High 74-106 [facility] Comment on above: Result Comment: FRANCINE GEMENT OF PATIENT CARE PER NURSING PROTOCOL Performed By: #### L 501.080 ####[facility] [address] [place], [address] Bedside Glucoseon 11-21-2024 FINGERSTICK GLU 114 mg/dL High [address] [place] [address] Comment on above: Result Comment: FRANCINE GEMENT OF PATIENT CARE PER NURSING PROTOCOL Performed By: #### L 501.080 ####[facility] [address] [place], [address] FINGERSTICK GLU 115 mg/dL High [address] [place] [address] Comment on above: Result Comment: FRANCINE GEMENT OF PATIENT CARE PER NURSING PROTOCOL Performed By: #### L 501.080 ####[facility] [address] [place], [address] Bedside Glucoseon 11-20-2024 FINGERSTICK GLU 118 mg/dL High [address] [place] [address] Comment on above: Result Comment: FRANCINE GEMENT OF PATIENT CARE PER NURSING PROTOCOL Performed By: #### L 501.080 ####[facility] [address] [place], [address] FINGERSTICK GLU 139 mg/dL High [address] [place] [address] Comment on above: Result Comment: FRANCINE GEMENT OF PATIENT CARE PER NURSING PROTOCOL Performed By: #### L 501.080 ####[facility] [address] [place], [address] Carcinoembryonic Antigenon 0 11-20-2024 CEA 4.6 ng/mL Normal 0.0-4.7 [facility] Comment on above: Result Comment: Nons mokers <3.9 Smokers <5.6[facility] [employer] Electrochemiluminescence Immunoassay(ECLIA)Values obtained with different assay methods or kitscannot be used interchangeably. Results cannot beinterpreted as absolute evidence of the presence orabsence of malignant disease.Performed at: [address] [id number] Director: Taiwo Quintero PhD, Phone: [phone] Performed By: #### L 3100.2300, L100.0600, L501.2300, L500.2500, L501.9520 ####[facility] [address] [place], [address] Basic Metabolic Profile (BMP )on 11-19-2024 BUN/CRE 22.8 RATIO High 10-20 [facility] Comment on above: Performed By: #### L 3100.2300, L100.0600, L501.2300, L500.2500, L501.9520 ####[facility] [address] [place], [address] Calcium [Mass/Vol] 9.5 mg/dL Normal 7.6-11.[address] [facility] Comment on above: Performed By: #### L 3100.2300, L100.0600, L501.2300, L500.2500, L501.9520 ####[facility] [address] [place], [address] Chloride [Moles/Vol] 100 mmol/L Normal 98-108 [facility] Comment on above: Performed By: #### L 3100.2300, L100.0600, L501.2300, L500.2500, L501.9520 ####[facility] [address] [place], [address] CO2 [Moles/Vol] 21.3 mmol/L Normal 21.0-32.0 [facility] Comment on above: Performed By: #### L 3100.2300, L100.0600, L501.2300, L500.2500, L501.9520 ####[facility] [address] [place], [address] Creatinine [Mass/Vol] 0.89 mg/dL Normal 0.70-1.20 [facility] Comment on above: Performed By: #### L 3100.2300, L100.0600, L501.2300, L500.2500, L501.9520 ####[facility] [address] [place], [address] ECRCL 68.73 ml/min Normal 50-250 [facility] Comment on above: Performed By: #### L 3100.2300, L100.0600, L501.2300, L500.2500, L501.9520 ####[facility] [address] [place], [address] GAP 12 Normal 5-15 [facility] Comment on above: Performed By: #### L 3100.2300, L100.0600, L501.2300, L500.2500, L501.9520 ####[facility] [address] [place], [address] GFR/1.73 sq M.predicted among non-blacks MDRD (S/P/Bld) [Vol rate/Area] 69 mL/min/{1.73_m2} Normal >60 [facility] Comment on above: Result Comment: mL/m in/1.73m2 CKD-EPI Creatinine Equation (2020) Performed By: #### L 3100.2300, L100.0600, L501.2300, L500.2500, L501.9520 ####[facility] [address] [place], [address] Glucose [Mass/Vol] 128 mg/dL High 70-[address] [facility] Comment on above: Performed By: #### L 3100.2300, L100.0600, L501.2300, L500.2500, L501.9520 ####[facility] [address] [place], [address] Potassium [Moles/Vol] 4.6 mmol/L Normal 3.3-5.1 [facility] Comment on above: Result Comment: Hemo lysis present, Results??could be affected.?? Performed By: #### L 3100.2300, L100.0600, L501.2300, L500.2500, L501.9520 ####[facility] [address] [place], [address] Sodium [Moles/Vol] 133 mmol/L Normal 133-[address] [facility] Comment on above: Performed By: #### L 3100.2300, L100.0600, L501.2300, L500.2500, L501.9520 ####[facility] [address] [place], [address] Urea nitrogen [Mass/Vol] 20 mg/dL High 4-19 [facility] Comment on above: Performed By: #### L 3100.2300, L100.0600, L501.2300, L500.2500, L501.9520 ####[facility] [address] [place], [address] Bedside Glucoseon 11-19-2024 FINGERSTICK GLU 139 mg/dL High 74-106 [facility] Comment on above: Result Comment: FRANCINE SKINNER OF PATIENT CARE PER NURSING PROTOCOL Performed By: #### L 501.080 ####[facility] [address] [place], [address] HH, Hemoglobin AND Hematocri ton 11-19-2024 Hematocrit (Bld) [Volume fraction] 43.9 % Normal 37-47 [facility] Comment on above: Performed By: #### L 3100.2300, L100.0600, L501.2300, L500.2500, L501.9520 ####[facility] [address] [place], [address] Hemoglobin (Bld) [Mass/Vol] 14.2 g/dL Normal 12.0-15.0 [facility] Comment on above: Performed By: #### L 3100.2300, L100.0600, L501.2300, L500.2500, L501.9520 ####[facility] [address] [place], [address] Phosphoruson 11-19-2024 Phosphate [Mass/Vol] 3.7 mg/dL Normal 2.7-4.5 [facility] Comment on above: Performed By: #### L 3100.2300, L100.0600, L501.2300, L500.2500, L501.9520 ####[facility] [address] [place], [address] Serum or plasma carcinoembry onic antigen measurement (mass/volume)Ordered By: Ada Soliman on 11-19-2024 Carcinoembryonic Ag [Mass/Vol] 4.6 ng/mL 0.0-4.7 [facility] Comment on above: Nonsmokers <3.9 Smok ers <5.6[facility] Electrochemiluminescence Immunoassay(ECLIA)Values obtained with different assay methods or kitscannot be used interchangeably. Results cannot beinterpreted as absolute evidence of the presence orabsence of malignant disease.Performed at: [employer] [address] [id number] Director: Taiwo Quintero PhD, Phone: [phone] T4 Free Directon 11-19-2024 T4 FREE DIRECT 1.10 ng/dL Normal 0.76-1.46 [facility] Comment on above: Performed By: #### L 506.0400 ####[facility] [address] [place], [place], [id number] T4 freeOrdered By: Ada Valentin nti on 11-19-2024 Free T4 [Mass/Vol] 1.10 ng/dL 0.76-1.[address] [facility] TSH DL <= 0.005 mIU/L QnOrde red By: Ada Soliman on 11-19-2024 TSH Qn 30.200 uIU/mL High 0.300-4.20 0 [facility] Thyroid Stim Hormone (TSH)on 04-18-2025 TSH 30.200 uIU/mL High 0.300-4.20 0 [facility] Comment on above: Performed By: #### L 3100.2300, L100.0600, L501.2300, L500.2500, L501.9520 ####[facility] [address] [place], [address] 12 Lead EKGon 11-18-2024 12 Lead EKG Normal [facility] Bedside Glucoseon 11-18-2024 FINGERSTICK GLU 139 mg/dL High 74-106 [facility] Comment on above: Result Comment: FRANCINE GEMENT OF PATIENT CARE PER NURSING PROTOCOL Performed By: #### L 501.080 ####[facility] [address] [place], [address] FINGERSTICK GLU 150 mg/dL High -106 [facility] Comment on above: Result Comment: FRANCINE GEMENT OF PATIENT CARE PER NURSING PROTOCOL Performed By: #### L 501.080 ####[facility] [address] [place], [address] Bedside Glucoseon 11-17-2024 FINGERSTICK GLU 117 mg/dL High 74-106 [facility] Comment on above: Result Comment: FRANCINE GEMENT OF PATIENT CARE PER NURSING PROTOCOL Performed By: #### L 501.080 ####[facility] [address] [place], [address] FINGERSTICK GLU 96 mg/dL Normal 74-106 [facility] Comment on above: Result Comment: FRANCINE GEMENT OF PATIENT CARE PER NURSING PROTOCOL Performed By: #### L 501.080 ####[facility] [address] [place], [address] FINGERSTICK GLU 131 mg/dL High 74-106 [facility] Comment on above: Result Comment: FRANCINE GEMENT OF PATIENT CARE PER NURSING PROTOCOL Performed By: #### L 501.080 ####[facility] [address] [place], [address] FINGERSTICK GLU 112 mg/dL High 74-106 [facility] Comment on above: Result Comment: FRANCINE GEMENT OF PATIENT CARE PER NURSING PROTOCOL Performed By: #### L 501.080 ####[facility] [address] [place], [address] Bedside Glucoseon 11-16-2024 FINGERSTICK GLU 108 mg/dL High 74-106 [facility] Comment on above: Result Comment: FRANCINE GEMENT OF PATIENT CARE PER NURSING PROTOCOL Performed By: #### L 501.080 ####[facility] [address] [place], [address] FINGERSTICK GLU 111 mg/dL High -[address] [place] [address] Comment on above: Result Comment: FRANCINE GEMENT OF PATIENT CARE PER NURSING PROTOCOL Performed By: #### L 501.080 ####[facility] [address] [place], [address] FINGERSTICK GLU 115 mg/dL High 74-106 [facility] Comment on above: Result Comment: FRANCINE GEMENT OF PATIENT CARE PER NURSING PROTOCOL Performed By: #### L 501.080 ####[facility] [address] [place], [address] FINGERSTICK GLU 120 mg/dL High -106 [facility] Comment on above: Result Comment: FRANCINE GEMENT OF PATIENT CARE PER NURSING PROTOCOL Performed By: #### L 501.080 ####[facility] [address] [place], [address] Bedside Glucoseon 5 FINGERSTICK GLU 113 mg/dL High -106 [facility] Comment on above: Result Comment: FRANCINE GEMENT OF PATIENT CARE PER NURSING PROTOCOL Performed By: #### L 501.080 ####[facility] [address] [place], [address] FINGERSTICK GLU 102 mg/dL Normal 74-106 [facility] Comment on above: Result Comment: FRANCINE GEMENT OF PATIENT CARE PER NURSING PROTOCOL Performed By: #### L 501.080 ####[facility] [address] [place], [address] FINGERSTICK GLU 128 mg/dL High 74-106 [facility] Comment on above: Result Comment: FRANCINE GEMENT OF PATIENT CARE PER NURSING PROTOCOL Performed By: #### L 501.080 ####[facility] [address] [place], [address] FINGERSTICK GLU 119 mg/dL High 74-106 [facility] Comment on above: Result Comment: FRANCINE GEMENT OF PATIENT CARE PER NURSING PROTOCOL Performed By: #### L 501.080 ####[facility] [address] [place], [address] Phosphoruson 11-15-2024 Phosphate [Mass/Vol] 2.9 mg/dL Normal 2.7-4.5 [facility] Comment on above: Performed By: #### L 501.2300 ####[facility] [address] [place], [address] Bedside Glucoseon 11-14-2024 FINGERSTICK GLU 156 mg/dL High -106 [facility] Comment on above: Result Comment: FRANCINE GEMENT OF PATIENT CARE PER NURSING PROTOCOL Performed By: #### L 501.080 ####[facility] [address] [place], [address] FINGERSTICK GLU 145 mg/dL High 74-106 [facility] Comment on above: Result Comment: FRANCINE GEMENT OF PATIENT CARE PER NURSING PROTOCOL Performed By: #### L 501.080 ####[facility] [address] [place], [address] FINGERSTICK GLU 129 mg/dL High 74-106 [facility] Comment on above: Result Comment: FRANCINE GEMENT OF PATIENT CARE PER NURSING PROTOCOL Performed By: #### L 501.080 ####[facility] [address] [place], [address] FINGERSTICK GLU 134 mg/dL High 74-106 [facility] Comment on above: Result Comment: FRANCINE GEMENT OF PATIENT CARE PER NURSING PROTOCOL Performed By: #### L 501.080 ####[facility] [address] [place], [address] Bedside Glucoseon 11-13-2024 FINGERSTICK GLU 123 mg/dL High 74-106 [facility] Comment on above: Result Comment: FRANCINE GEMENT OF PATIENT CARE PER NURSING PROTOCOL Performed By: #### L 501.080 ####[facility] [address] [place], [address] FINGERSTICK GLU 161 mg/dL High 74-106 [facility] Comment on above: Result Comment: FRANCINE GEMENT OF PATIENT CARE PER NURSING PROTOCOL Performed By: #### L 501.080 ####[facility] [address] [place], [address] FINGERSTICK GLU 162 mg/dL High -106 [facility] Comment on above: Result Comment: FRANCINE GEMENT OF PATIENT CARE PER NURSING PROTOCOL Performed By: #### L 501.080 ####[facility] [address] [place], [address] FINGERSTICK GLU 128 mg/dL High -106 [facility] Comment on above: Result Comment: FRANCINE GEMENT OF PATIENT CARE PER NURSING PROTOCOL Performed By: #### L 501.080 ####[facility] [address] [place], [address] Bedside Glucoseon 11-12-2024 FINGERSTICK GLU 114 mg/dL High -106 [facility] Comment on above: Result Comment: FRANCINE GEMENT OF PATIENT CARE PER NURSING PROTOCOL Performed By: #### L 501.080 ####[facility] [address] [place], [address] FINGERSTICK GLU 119 mg/dL High 74-106 [facility] Comment on above: Result Comment: FRANCINE GEMENT OF PATIENT CARE PER NURSING PROTOCOL Performed By: #### L 501.080 ####[facility] [address] [place], [address] FINGERSTICK GLU 130 mg/dL High 74-106 [facility] Comment on above: Result Comment: FRANCINE GEMENT OF PATIENT CARE PER NURSING PROTOCOL Performed By: #### L 501.080 ####[facility] [address] [place], [address] FINGERSTICK GLU 134 mg/dL High 74-106 [facility] Comment on above: Result Comment: FRANCINE GEMENT OF PATIENT CARE PER NURSING PROTOCOL Performed By: #### L 501.080 ####[facility] [address] [place], [address] CBC-Complete Blood Cnt No [facility] 11-12-2024 Erythrocyte distribution width (RBC) [Ratio] 15.1 % High 11.6-14.6 [facility] Comment on above: Performed By: #### L 100.0500, L500.4050, L501.5200 ####[facility] [address] [place], [address] Hematocrit (Bld) [Volume fraction] 46.1 % Normal 37-47 [facility] Comment on above: Performed By: #### L 100.0500, L500.4050, L501.5200 ####[facility] [address] [place], [address] Hemoglobin (Bld) [Mass/Vol] 14.5 g/dL Normal 12.0-15.0 [facility] Comment on above: Performed By: #### L 100.0500, L500.4050, L501.5200 ####[facility] [address] [place], [address] MCH (RBC) [Entitic mass] 28.2 pg Normal 27.0-32.0 [facility] Comment on above: Performed By: #### L 100.0500, L500.4050, L501.5200 ####[facility] [address] [place], [address] MCHC (RBC) [Mass/Vol] 31.5 g/dL Low 32-36 [facility] Comment on above: Performed By: #### L 100.0500, L500.4050, L501.5200 ####[facility] [address] [place], [address] MCV (RBC) [Entitic vol] 89.5 fL Normal 81-99 [facility] Comment on above: Performed By: #### L 100.0500, L500.4050, L501.5200 ####[facility] [address] [place], [address] Platelet mean volume (Bld) [Entitic vol] 10.4 fL Normal 6.2-12.0 [facility] Comment on above: Performed By: #### L 100.0500, L500.4050, L501.5200 ####[facility] [address] [place], [address] Platelets (Bld) [#/Vol] 213 10*3/uL Normal 150-450 [facility] Comment on above: Performed By: #### L 100.0500, L500.4050, L501.5200 ####[facility] [address] [place], [address] RBC (Bld) [#/Vol] 5.15 10*6/uL Normal 4.2-5.[address] [facility] Comment on above: Performed By: #### L 100.0500, L500.4050, L501.5200 ####[facility] [address] [place], [address] RDW SD 49.5 fl High 35.1-43.9 [facility] Comment on above: Performed By: #### L 100.0500, L500.4050, L501.5200 ####[facility] [address] [place], [address] WBC (Bld) [#/Vol] 9.9 10*3/uL Normal 4.4-11.[address] [facility] Comment on above: Performed By: #### L 100.0500, L500.4050, L501.5200 ####[facility] [address] [place], [address] Comprehensive Metabolic Prof njon 11-12-2024 Albumin [Mass/Vol] 3.7 g/dL Normal 3.4-4.[address] [facility] Comment on above: Performed By: #### L 100.0500, L500.4050, L501.5200 ####[facility] [address] [place], [address] Albumin/Globulin [Mass ratio] 1.0 {ratio} Normal 0.9-2.4 [facility] Comment on above: Performed By: #### L 100.0500, L500.4050, L501.5200 ####[facility] [address] [place], [address] ALK PHOS 114 U/L High 35-104 [facility] Comment on above: Performed By: #### L 100.0500, L500.4050, L501.5200 ####[facility] [address] [place], [address] ALT [Catalytic activity/Vol] 10 U/L Normal <=34 [facility] Comment on above: Performed By: #### L 100.0500, L500.4050, L501.5200 ####[facility] [address] [place], [address] AST [Catalytic activity/Vol] 20 U/L Normal <=31 [facility] Comment on above: Result Comment: Hemo lysis present, Results??could be affected.?? Performed By: #### L 100.0500, L500.4050, L501.5200 ####[facility] [address] [place], [address] Bilirubin [Mass/Vol] 1.04 mg/dL Normal 0.00-1.30 [facility] Comment on above: Performed By: #### L 100.0500, L500.4050, L501.5200 ####[facility] [address] [place], [address] BUN/CRE 14.8 RATIO Normal 10-20 [facility] Comment on above: Performed By: #### L 100.0500, L500.4050, L501.5200 ####[facility] [address] [place], [address] Calcium [Mass/Vol] 10.0 mg/dL Normal 7.6-11.[address] [facility] Comment on above: Performed By: #### L 100.0500, L500.4050, L501.5200 ####[facility] [address] [place], [address] Chloride [Moles/Vol] 100 mmol/L Normal 98-108 [facility] Comment on above: Performed By: #### L 100.0500, L500.4050, L501.5200 ####[facility] [address] [place], [address] CO2 [Moles/Vol] 26.6 mmol/L Normal 21.0-32.0 [facility] Comment on above: Performed By: #### L 100.0500, L500.4050, L501.5200 ####[facility] [address] [place], [address] Creatinine [Mass/Vol] 0.94 mg/dL Normal 0.70-1.20 [facility] Comment on above: Performed By: #### L 100.0500, L500.4050, L501.5200 ####[facility] [address] [place], [address] ECRCL 66.12 ml/min Normal 50-250 [facility] Comment on above: Performed By: #### L 100.0500, L500.4050, L501.5200 ####[facility] [address] [place], [address] GAP 11 Normal 5-15 [facility] Comment on above: Performed By: #### L 100.0500, L500.4050, L501.5200 ####[facility] [address] [place], [address] GFR/1.73 sq M.predicted among non-blacks MDRD (S/P/Bld) [Vol rate/Area] 64 mL/min/{1.73_m2} Normal >60 [facility] Comment on above: Result Comment: mL/m in/1.73m2 CKD-EPI Creatinine Equation (2020) Performed By: #### L 100.0500, L500.4050, L501.5200 ####[facility] [address] [place], [address] Globulin (S) [Mass/Vol] 3.7 g/dL Normal 2.2-4.2 [facility] Comment on above: Performed By: #### L 100.0500, L500.4050, L501.5200 ####[facility] [address] [place], [address] Glucose [Mass/Vol] 138 mg/dL High 70-[address] [facility] Comment on above: Performed By: #### L 100.0500, L500.4050, L501.5200 ####[facility] [address] [place], [address] Potassium [Moles/Vol] 4.7 mmol/L Normal 3.3-5.1 [facility] Comment on above: Result Comment: Hemo lysis present, Results??could be affected.?? Performed By: #### L 100.0500, L500.4050, L501.5200 ####[facility] [address] [place], [address] Sodium [Moles/Vol] 137 mmol/L Normal 133-[address] [facility] Comment on above: Performed By: #### L 100.0500, L500.4050, L501.5200 ####[facility] [address] [place], [address] T PROT 7.4 g/dL Normal 5.9-8.4 [facility] Comment on above: Performed By: #### L 100.0500, L500.4050, L501.5200 ####[facility] [address] [place], [address] Urea nitrogen [Mass/Vol] 14 mg/dL Normal 4-19 [facility] Comment on above: Performed By: #### L 100.0500, L500.4050, L501.5200 ####[facility] [address] [place], [address] Magnesiumon 11-12-2024 Magnesium [Mass/Vol] 1.8 mg/dL Normal 1.5-2.2 [facility] Comment on above: Performed By: #### L 100.0500, L500.4050, L501.5200 ####[facility] [address] [place], [address] Phosphoruson 11-12-2024 Phosphate [Mass/Vol] 2.4 mg/dL Low 2.7-4.5 [facility] Comment on above: Performed By: #### L 501.2300 ####[facility] [address] [place], [address] Bedside Glucoseon 11-11-2024 FINGERSTICK GLU 142 mg/dL High 74-106 [facility] Comment on above: Result Comment: FRANCINE GEMENT OF PATIENT CARE PER NURSING PROTOCOL Performed By: #### L 501.080 ####[facility] [address] [place], [address] FINGERSTICK GLU 128 mg/dL High 74-106 [facility] Comment on above: Result Comment: FRANCINE GEMENT OF PATIENT CARE PER NURSING PROTOCOL Performed By: #### L 501.080 ####[facility] [address] [place], [address] CARDIAC RHYTHMon 11-11-2024 [facility] CBC,PLATELETSon 11-11-2024 Erythrocyte distribution width (RBC) [Ratio] 15 % High 10.8 - 14.9 % [facility] Hematocrit (Bld) [Volume fraction] 45.9 % High 34.9 - 44.3 % [facility] Hemoglobin (Bld) [Mass/Vol] 13.9 g/dL 11.4 - 15.2 g/dL [facility] Interpretation and review of laboratory results Abnormal [facility] MCH (RBC) [Entitic mass] 27 pg 25. 9 - 33.9 pg [facility] MCHC (RBC) [Mass/Vol] 30.3 g/dL Low 31.4 - 35.9 g/dL [facility] MCV (RBC) [Entitic vol] 89.3 fL 79.6 - 97.7 fL [facility] Platelet mean volume (Bld) [Entitic vol] 10.2 fL 8.5 - 12.2 fL [facility] Platelets (Bld) [#/Vol] 190 10*3/uL 150 - 393 K/uL [facility] RBC (Bld) [#/Vol] 5.14 10*6/uL High [facility] WBC (Bld) [#/Vol] 8.88 10*3/uL 3.99 - 11.19 K/uL [facility] Hematocrit (Bld) [Volume fraction] 45.9 % High 34.9-44.3 [facility] Comment on above: Performed By: #### H EMOGC #### [facility] (DEFAULT) [address] [place] [address]441 Hemoglobin (Bld) [Mass/Vol] 13.9 g/dL Normal 11.4-15.2 [facility] Comment on above: Performed By: #### H EMOGC #### [facility] (DEFAULT) [address] [address] MCV (RBC) [Entitic vol] 89.3 fL Normal 79.6-97.7 [facility] Comment on above: Performed By: #### H EMOGC #### [facility] (DEFAULT) [address] [place] [address] 15363 Mean Cell Hgb 27.0 pg Normal 25.9-33.9 [facility] Comment on above: Performed By: #### H EMOGC #### [facility] (DEFAULT) [address] [place] [address] 12751 Mean Cell Hgb Conc 30.3 g/dL Low 31.4-35.9 [facility] Comment on above: Performed By: #### H EMOGC #### [facility] (DEFAULT) [address] [place] [address] 88435 Platelet mean volume (Bld) [Entitic vol] 10.2 fL Normal 8.5-12.2 [facility] Comment on above: Performed By: #### H EMOGC #### [facility] (DEFAULT) [address] [place] [address] 60838 Platelets (Bld) [#/Vol] 190 10*3/uL Normal 150-393 [facility] Comment on above: Performed By: #### H EMOGC #### [facility] (DEFAULT) [address] [place] [address] 59071 RBC (Bld) [#/Vol] 5.14 10*6/uL High 3.91-5.04 [facility] Comment on above: Performed By: #### H [facility] #### [facility] (DEFAULT) [address] [place] [address] RBC Distribution 15.0 % High 10.8-14.9 [facility] Comment on above: Performed By: #### H [facility] #### [facility] (DEFAULT) [address] [place] [address] 88502 WBC (Bld) [#/Vol] 8.88 10*3/uL Normal 3.99-11.19 [facility] Comment on above: Performed By: #### H [facility] #### [facility] (DEFAULT) [address] [place] [address] 76076 CHEM 7 (LYTES,BUN,CREA,GLUC) on 11-11-2024 Anion gap [Moles/Vol] 13 mmol/L 7 - 17 mmol/L [facility] Chloride [Moles/Vol] 101 mmol/L 98 - 10 8 mmol/L [facility] CO2 [Moles/Vol] 26 mmol/L 21 - 31 mmol/L [facility] Creatinine [Mass/Vol] 0.85 mg/dL 0.50 - 1.20 mg/dL [facility] eGFR, CKD-EPI, Female 75 - PINF [facility] Comment on above: Reported eGFR is bas ed on the CKD-EPI 2020 equation using creatinine, age, and sex. Glucose [Mass/Vol] 119 mg/dL 70 - 179 mg/dL [facility] Osmolality Calc [Osmolality] 287 [facility] Potassium [Moles/Vol] 4.1 mmol/L 3.5 - 5.0 mmol/L [facility] Sodium [Moles/Vol] 136 mmol/L 135 - 145 mmol/L [facility] Urea nitrogen [Mass/Vol] 14 mg/dL 7 - 25 mg/dL [facility] Urea nitrogen/Creatinine [Mass ratio] 16 mg/mg [facility] Anion gap [Moles/Vol] 13 mmol/L Normal 7-17 [facility] Comment on above: Performed By: #### Kennedy RETANA CHM7 #### [facility] (DEFAULT) [address] [place] [address] 99335 Chloride [Moles/Vol] 101 mmol/L Normal 98-108 [facility] Comment on above: Performed By: #### Kennedy RETANA CHM7 #### [facility] (DEFAULT) [address] [place] [address] 47051 CO2 [Moles/Vol] 26 mmol/L Normal 21-31 [facility] Comment on above: Performed By: #### Kennedy RETANA CHM7 #### [facility] (DEFAULT) [address] [place] [address] 56492 Creatinine [Mass/Vol] 0.85 mg/dL Normal 0.50-1.20 [facility] Comment on above: Performed By: #### Kennedy RETANA CHM7 #### [facility] (DEFAULT) [address] [place] [address] 22514 GFR/1.73 sq M.predicted among non-blacks MDRD (S/P/Bld) [Vol rate/Area] 73 mL/min/{1.73_m2} Normal >=60 [facility] Comment on above: Result Comment: Repo rted eGFR is based on the CKD-EPI 2020 equation using creatinine, age, and sex. Performed By: #### Kennedy RETANA CHM7 #### [facility] (DEFAULT) [address] [place] [address] 35775 Glucose [Mass/Vol] 119 mg/dL Normal Nonfastin g : 70-179 mg/dL; Fastin-99 [facility] Comment on above: Performed By: #### Kennedy RETANA CHM7 #### [facility] (DEFAULT) [address] [place] [address] 15743 Osmolality [Osmolality] 287 mosm/kg Normal 278-305 [facility] Comment on above: Performed By: #### Kennedy RETANA CHM7 #### [facility] (DEFAULT) [address] [place] [address] 91151 Potassium [Moles/Vol] 4.1 mmol/L Normal 3.5-5.0 [facility] Comment on above: Performed By: #### TIFFANY MO7 #### [facility] (DEFAULT) [address] [place] [address] 85856 Sodium [Moles/Vol] 136 mmol/L Normal 135-145 [facility] Comment on above: Performed By: #### TIFFANY MO7 #### [facility] (DEFAULT) [address] [place] [address] 79345 Urea nitrogen [Mass/Vol] 14 mg/dL Normal 7-25 [facility] Comment on above: Performed By: #### TIFFANY MO7 #### [facility] (DEFAULT) [address] [place] [address] 16361 Urea nitrogen/Creatinine [Mass ratio] 16 mg/mg Normal [facility] Comment on above: Performed By: #### TIFFANY MO7 #### [facility] (DEFAULT) [address] [place] [address] 38952 GLUCOSE POCon 11-11-2024 Glucose [Mass/Vol] 138 mg/dL 70 - 179 mg/dL [facility] POC Sample Type CAPBL [facility] Test performed at ad dress of the patient encounter. [facility] Glucose [Mass/Vol] 110 mg/dL 70 - 179 mg/dL [facility] POC Sample Type CAPBL [facility] Test performed at ad dress of the patient encounter. [facility] MAGNESIUMon 11-11-2024 Interpretation and review of laboratory results Normal [facility] Magnesium [Mass/Vol] 1.7 mg/dL 1.6 - 2 .6 mg/dL [facility] Magnesium [Mass/Vol] 1.7 mg/dL Normal 1.6-2.6 [facility] Comment on above: Performed By: #### M [facility] #### [facility] (DEFAULT) [address] [place] [address] No Panel Informationon 11-11 [facility] CBC,PLATELETSon 11-10-2024 Erythrocyte distribution width (RBC) [Ratio] 15.5 % High 10.8 - 14.9 % [facility] Hematocrit (Bld) [Volume fraction] 48.3 % High 34.9 - 44.3 % [facility] Hemoglobin (Bld) [Mass/Vol] 14.3 g/dL 11.4 - 15.2 g/dL [facility] Interpretation and review of laboratory results Abnormal [facility] MCH (RBC) [Entitic mass] 27.3 pg 25. 9 - 33.9 pg [facility] MCHC (RBC) [Mass/Vol] 29.6 g/dL Low 31.4 - 35.9 g/dL [facility] MCV (RBC) [Entitic vol] 92.4 fL 79.6 - 97.7 fL [facility] Platelet mean volume (Bld) [Entitic vol] 10.2 fL 8.5 - 12.2 fL [facility] Platelets (Bld) [#/Vol] 183 10*3/uL 150 - 393 K/uL [facility] RBC (Bld) [#/Vol] 5.23 10*6/uL High [facility] WBC (Bld) [#/Vol] 8.93 10*3/uL 3.99 - 11.19 K/uL [facility] Hematocrit (Bld) [Volume fraction] 48.3 % High 34.9-44.3 [facility] Comment on above: Performed By: #### H [facility] #### [facility] (DEFAULT) [address] [place] [address] 47287 Hemoglobin (Bld) [Mass/Vol] 14.3 g/dL Normal 11.4-15.2 [facility] Comment on above: Performed By: #### H EMOGC #### [facility] (DEFAULT) [address] [address] MCV (RBC) [Entitic vol] 92.4 fL Normal 79.6-97.7 O [facility] Comment on above: Performed By: #### H EMOGC #### [facility] (DEFAULT) [address] [address] Mean Cell Hgb 27.3 pg Normal 25.9-33.9 [facility] Comment on above: Performed By: #### H EMOGC #### [facility] (DEFAULT) [address] [address] Mean Cell Hgb Conc 29.6 g/dL Low 31.4-35.9 [facility] Comment on above: Performed By: #### H EMOGC #### [facility] (DEFAULT) [address] [address] Platelet mean volume (Bld) [Entitic vol] 10.2 fL Normal 8.5-12.2 [facility] Comment on above: Performed By: #### H EMOGC #### [facility] (DEFAULT) [address] [address] Platelets (Bld) [#/Vol] 183 10*3/uL Normal 150-393 [facility] Comment on above: Performed By: #### H EMOGC #### [facility] (DEFAULT) [address] [address] RBC (Bld) [#/Vol] 5.23 10*6/uL High 3.91-5.04 [facility] Comment on above: Performed By: #### H EMOGC #### [facility] (DEFAULT) [address] [address] RBC Distribution 15.5 % High 10.8-14.9 [facility] Comment on above: Performed By: #### H [facility] #### [facility] (DEFAULT) [address] [place] [address] WBC (Bld) [#/Vol] 8.93 10*3/uL Normal 3.99-11.19 [facility] Comment on above: Performed By: #### H [facility] #### [facility] (DEFAULT) [address] [place] [address] CHEM 7 (LYTES,BUN,CREA,GLUC) on 11-10-2024 Anion gap [Moles/Vol] 11 mmol/L 7 - 17 mmol/L [facility] Chloride [Moles/Vol] 102 mmol/L 98 - 10 8 mmol/L [facility] CO2 [Moles/Vol] 30 mmol/L 21 - 31 mmol/L [facility] Creatinine [Mass/Vol] 1.06 mg/dL 0.50 - 1.20 mg/dL [facility] eGFR, CKD-EPI, Female 58 Low - PINF [facility] Comment on above: Reported eGFR is bas ed on the CKD-EPI 2020 equation using creatinine, age, and sex. Glucose [Mass/Vol] 135 mg/dL 70 - 179 mg/dL [facility] Interpretation and review of laboratory results Abnormal [facility] Osmolality Calc [Osmolality] 294 [facility] Potassium [Moles/Vol] 4.3 mmol/L 3.5 - 5.0 mmol/L [facility] Sodium [Moles/Vol] 139 mmol/L 135 - 145 mmol/L [facility] Urea nitrogen [Mass/Vol] 14 mg/dL 7 - 25 mg/dL [facility] Urea nitrogen/Creatinine [Mass ratio] 13 mg/mg [facility] Anion gap [Moles/Vol] 11 mmol/L Normal 7-17 [facility] Comment on above: Performed By: #### M GO, CHM7 #### [facility] (DEFAULT) [address] [place] [address] Chloride [Moles/Vol] 102 mmol/L Normal 98-108 [facility] Comment on above: Performed By: #### SEEMA MO #### [facility] (DEFAULT) [address] [place] [address] 54666 CO2 [Moles/Vol] 30 mmol/L Normal 21-31 [facility] Comment on above: Performed By: #### SEEMA MO #### [facility] (DEFAULT) [address] [place] [address] 82900 Creatinine [Mass/Vol] 1.06 mg/dL Normal 0.50-1.20 [facility] Comment on above: Performed By: #### TIFFANY MO7 #### [facility] (DEFAULT) [address] [place] [address] 10799 GFR/1.73 sq M.predicted among non-blacks MDRD (S/P/Bld) [Vol rate/Area] 56 mL/min/{1.73_m2} Low >=60 [facility] Comment on above: Result Comment: Repo rted eGFR is based on the CKD-EPI 2020 equation using creatinine, age, and sex. Performed By: #### SEEMA MO #### [facility] (DEFAULT) [address] [place] [address] 95823 Glucose [Mass/Vol] 135 mg/dL Normal Nonfastin g : 70-179 mg/dL; Fastin-99 [facility] Comment on above: Performed By: #### TIFFANY MO7 #### [facility] (DEFAULT) [address] [place] [address] 60032 Osmolality [Osmolality] 294 mosm/kg Normal 278-305 [facility] Comment on above: Performed By: #### TIFFANY MO7 #### [facility] (DEFAULT) [address] [place] [address] 08122 Potassium [Moles/Vol] 4.3 mmol/L Normal 3.5-5.0 [facility] Comment on above: Performed By: #### SEEMA MO #### [facility] (DEFAULT) [address] [place] [address] Sodium [Moles/Vol] 139 mmol/L Normal 135-145 [facility] Comment on above: Performed By: #### TIFFANY MO7 #### [facility] (DEFAULT) [address] [place] [address] Urea nitrogen [Mass/Vol] 14 mg/dL Normal 7-25 [facility] Comment on above: Performed By: #### TIFFANY MO7 #### [facility] (DEFAULT) [address] [place] [address] Urea nitrogen/Creatinine [Mass ratio] 13 mg/mg Normal [facility] Comment on above: Performed By: #### TIFFANY MO7 #### [facility] (DEFAULT) [address] [place] [address] GLUCOSE POCon 11-10-2024 Glucose [Mass/Vol] 142 mg/dL 70 - 179 mg/dL [facility] POC Sample Type CAPBL [facility] Test performed at ad dress of the patient encounter. [facility] Glucose [Mass/Vol] 134 mg/dL 70 - 179 mg/dL [facility] POC Sample Type CAPBL [facility] Test performed at ad dress of the patient encounter. [facility] Glucose [Mass/Vol] 160 mg/dL 70 - 179 mg/dL [facility] POC Sample Type CAPBL [facility] Test performed at ad dress of the patient encounter. [facility] Glucose [Mass/Vol] 159 mg/dL 70 - 179 mg/dL [facility] POC Sample Type CAPBL [facility] Test performed at ad dress of the patient encounter. [facility] MAGNESIUMon 11-10-2024 Interpretation and review of laboratory results Normal [facility] Magnesium [Mass/Vol] 1.9 mg/dL 1.6 - 2 .6 mg/dL [facility] Magnesium [Mass/Vol] 1.9 mg/dL Normal 1.6-2.6 [facility] Comment on above: Performed By: #### M GO, CHM7 #### [facility] (DEFAULT) [address] [place] [address] No Panel Informationon 11-10 [facility] CBC,PLATELETSon 11-09-2024 Erythrocyte distribution width (RBC) [Ratio] 15.8 % High 10.8 - 14.9 % [facility] Hematocrit (Bld) [Volume fraction] 49.4 % High 34.9 - 44.3 % [facility] Hemoglobin (Bld) [Mass/Vol] 14.6 g/dL 11.4 - 15.2 g/dL [facility] Interpretation and review of laboratory results Abnormal [facility] MCH (RBC) [Entitic mass] 27 pg 25. 9 - 33.9 pg [facility] MCHC (RBC) [Mass/Vol] 29.6 g/dL Low 31.4 - 35.9 g/dL [facility] MCV (RBC) [Entitic vol] 91.5 fL 79.6 - 97.7 fL [facility] Platelet mean volume (Bld) [Entitic vol] 10.2 fL 8.5 - 12.2 fL [facility] Platelets (Bld) [#/Vol] 194 10*3/uL 150 - 393 K/uL [facility] RBC (Bld) [#/Vol] 5.4 10*6/uL High [facility] WBC (Bld) [#/Vol] 10.12 10*3/uL 3.99 - 11.19 K/uL [facility] Hematocrit (Bld) [Volume fraction] 49.4 % High 34.9-44.3 [facility] Comment on above: Performed By: #### L IPDR, HFP, CHM7 #### [facility] (DEFAULT) [address] [place] [address]70 Hemoglobin (Bld) [Mass/Vol] 14.6 g/dL Normal 11.4-15.2 [facility] Comment on above: Performed By: #### L IPDR, HFP, CHM7 #### [facility] (DEFAULT) [address] [place] [address] 27649 MCV (RBC) [Entitic vol] 91.5 fL Normal 79.6-97.7 [facility] Comment on above: Performed By: #### L IPDR, HFP, CHM7 #### [facility] (DEFAULT) [address] [place] [address] 04001 Mean Cell Hgb 27.0 pg Normal 25.9-33.9 [facility] Comment on above: Performed By: #### L IPDR, HFP, CHM7 #### [facility] (DEFAULT) [address] [address] Mean Cell Hgb Conc 29.6 g/dL Low 31.4-35.9 [facility] Comment on above: Performed By: #### L IPDR, HFP, CHM7 #### [facility] (DEFAULT) [address] [place] [address] 50227 Platelet mean volume (Bld) [Entitic vol] 10.2 fL Normal 8.5-12.2 [facility] Comment on above: Performed By: #### L IPDR, HFP, CHM7 #### [facility] (DEFAULT) [address] [place] [address] 79438 Platelets (Bld) [#/Vol] 194 10*3/uL Normal 150-393 [facility] Comment on above: Performed By: #### L IPDR, HFP, CHM7 #### [facility] (DEFAULT) [address] [address] RBC (Bld) [#/Vol] 5.40 10*6/uL High 3.91-5.04 [facility] Comment on above: Performed By: #### L IPDR, HFP, CHM7 #### [facility] (DEFAULT) [address] [place] [address] RBC Distribution 15.8 % High 10.8-14.9 [facility] Comment on above: Performed By: #### L IPDR, HFP, CHM7 #### [facility] (DEFAULT) [address] [place] [address] WBC (Bld) [#/Vol] 10.12 10*3/uL Normal 3.99-11.19 [facility] Comment on above: Performed By: #### L IPDR, HFP, CHM7 #### [facility] (DEFAULT) [address] [place] [address] CHEM 7 (LYTES,BUN,CREA,GLUC) on 11-09-2024 Anion gap [Moles/Vol] 10 mmol/L 7 - 17 mmol/L [facility] Chloride [Moles/Vol] 103 mmol/L 98 - 10 8 mmol/L [facility] CO2 [Moles/Vol] 31 mmol/L 21 - 31 mmol/L [facility] Creatinine [Mass/Vol] 0.82 mg/dL 0.50 - 1.20 mg/dL [facility] eGFR, CKD-EPI, Female 76 - PINF [facility] Comment on above: Reported eGFR is bas ed on the CKD-EPI 2020 equation using creatinine, age, and sex. Glucose [Mass/Vol] 126 mg/dL 70 - 179 mg/dL [facility] Osmolality Calc [Osmolality] 294 [facility] Potassium [Moles/Vol] 4.2 mmol/L 3.5 - 5.0 mmol/L [facility] Sodium [Moles/Vol] 140 mmol/L 135 - 145 mmol/L [facility] Urea nitrogen [Mass/Vol] 11 mg/dL 7 - 25 mg/dL [facility] Urea nitrogen/Creatinine [Mass ratio] 13 mg/mg [facility] Anion gap [Moles/Vol] 10 mmol/L Normal 7-17 [facility] Comment on above: Performed By: #### L IPDR, HFP, CHM7 #### [facility] (DEFAULT) [address] [place] [address] Chloride [Moles/Vol] 103 mmol/L Normal 98-108 [facility] Comment on above: Performed By: #### L IPDR, HFP, CHM7 #### [facility] (DEFAULT) [address] [place] [address] 08108 CO2 [Moles/Vol] 31 mmol/L Normal 21-31 [facility] Comment on above: Performed By: #### L IPDR, HFP, CHM7 #### [facility] (DEFAULT) [address] [place] [address] 70291 Creatinine [Mass/Vol] 0.82 mg/dL Normal 0.50-1.20 [facility] Comment on above: Performed By: #### L IPDR, HFP, CHM7 #### [facility] (DEFAULT) [address] [place] [address] 38542 GFR/1.73 sq M.predicted among non-blacks MDRD (S/P/Bld) [Vol rate/Area] 76 mL/min/{1.73_m2} Normal >=60 [facility] Comment on above: Result Comment: Repo rted eGFR is based on the CKD-EPI 2020 equation using creatinine, age, and sex. Performed By: #### L IPDR, HFP, CHM7 #### [facility] (DEFAULT) [address] [place] [address] 99047 Glucose [Mass/Vol] 126 mg/dL Normal Nonfastin g : 70-179 mg/dL; Fastin-99 [facility] Comment on above: Performed By: #### L IPDR, HFP, CHM7 #### [facility] (DEFAULT) [address] [place] [address] 14308 Osmolality [Osmolality] 294 mosm/kg Normal 278-305 [facility] Comment on above: Performed By: #### L IPDR, HFP, CHM7 #### [facility] (DEFAULT) [address] [place] [address] 55688 Potassium [Moles/Vol] 4.2 mmol/L Normal 3.5-5.0 [facility] Comment on above: Performed By: #### L IPDR, HFP, CHM7 #### [facility] (DEFAULT) [address] [place] [address] 77184 Sodium [Moles/Vol] 140 mmol/L Normal 135-145 [facility] Comment on above: Performed By: #### L IPDR, HFP, CHM7 #### [facility] (DEFAULT) [address] [place] [address] 64893 Urea nitrogen [Mass/Vol] 11 mg/dL Normal 7-25 [facility] Comment on above: Performed By: #### L IPDR, HFP, CHM7 #### [facility] (DEFAULT) [address] [place] [address] 96551 Urea nitrogen/Creatinine [Mass ratio] 13 mg/mg Normal [facility] Comment on above: Performed By: #### L IPDR, HFP, CHM7 #### [facility] (DEFAULT) [address] [place] [address] 78248 CHEM 7 (LYTES,BUN,CREA,GLUC) Ordered By: Carol Cuenca on 11-09-2024 Anion gap [Moles/Vol] 24 mmol/L High 7 - 17 mmol/L [facility] Chloride [Moles/Vol] 100 mmol/L 98 - 10 8 mmol/L [facility] CO2 [Moles/Vol] 20 mmol/L Low 21 - 31 mmol/L [facility] Creatinine [Mass/Vol] 0.84 mg/dL 0.50 - 1.20 mg/dL [facility] eGFR, CKD-EPI, Female 76 - PINF [facility] Comment on above: Reported eGFR is bas ed on the CKD-EPI 2020 equation using creatinine, age, and sex. Glucose [Mass/Vol] 109 mg/dL 70 - 179 mg/dL [facility] Interpretation and review of laboratory results Abnormal [facility] Osmolality Calc [Osmolality] 293 [facility] Potassium [Moles/Vol] 5.6 mmol/L High 3.5 - 5.0 mmol/L [facility] Comment on above: Specimen slightly he molyzed. Potassium results may be falsey elevated by more than 0.5 mmol/L. Consider recollection. Sodium [Moles/Vol] 138 mmol/L 135 - 145 mmol/L [facility] Urea nitrogen [Mass/Vol] 13 mg/dL 7 - 25 mg/dL [facility] Urea nitrogen/Creatinine [Mass ratio] 15 mg/mg [facility] Cardiac echo study Procedure Ordered By: Panda Ko on 11-09-2024 Ao ASC index 1.21 cm/m2 [facility] Work Phone: Ao peak obdulio 1.77 m/s [facility] Work Phone: Ao SOV index 1.11 cm/m2 [facility] Work Phone: Ao STJ index 1.08 cm/m2 [facility] Work Phone: Ao VTI 32.51 cm [facility] Work Phone: Ascending aorta 2.55 cm [facility] Work Phone: AV LVOT peak gradient 6 mmHg [facility] Work Phone: AV mean gradient 6 mmHg [facility] Work Phone: AV peak gradient 13 mmHG [facility] Work Phone: AV valve area 1.79 cm2 [facility] Work Phone: AV Velocity Ratio 0.69 [facility] Work Phone: RUBENS (continuity Vmax) 1.91 cm2 [facility] Work Phone: RUBENS (continuity VTI) 1.79 cm2 [facility] Work Phone: RUBENS index (continuity Vmax) 0.9 m/s [facility] Work Phone: RUBENS index (continuity VTI) 0.85 cm2/m2 [facility] Work Phone: Avg e' pk obdulio 0.06 m/s [facility] Work Phone: Body surface area Derived from formula 2.11 m2 [facility] Work Phone: BP EF 62 % [facility] Work Phone: DI (Vmax) 0.69 [facility] Work Phone: DI (VTI) 0.65 m/2 [facility] Work Phone: e' lateral pk [facility]dulio 0.0544 [facility]: e' lateral pk obdulio 0.05 [facility]: e' septal pk obdulio 0.0616 m/s [facility] Work Phone: e' septal pk obdulio 0.06 m/s [facility]: EF SP 2CH 63 [facility] Work Phone: EF SP 4CH 60 [facility] Work Phone: EST RAP 10 mmHg [facility] Work Phone: EST RVSP 45 mmHg [facility] Work Phone: FS 21 % [facility] Work Phone: IVC ostium 1.81 cm [facility] Work Phone: IVS 0.97 cm [facility] Work Phone: [phone] LA area 4CH 26.46 cm2 [facility] Work Phone: [phone] LA ESV BP (MOD) 95 [facility] Work Phone: [phone] LA ESV BP (MOD) index 45 mL/m2 [facility] Work Phone: [phone] LA ESV SP 2CH (MOD) 108 mL [facility] Work Phone: LA ESV SP 4CH (MOD) 76 mL [facility] Work Phone: LV EDV BP 77 mL [facility] Work Phone: [phone] LV EDV SP 2CH 71 mL [facility] Work Phone: LV EDV SP 4CH 81 mL [facility] Work Phone: [phone] LV ESV BP 29 mL [facility] Work Phone: LV ESV SP 2CH 26 mL [facility] Work Phone: LV ESV SP 4CH 32 mL [facility] Work Phone: LV mass 187.51 g [facility] Work Phone: LV Mass Index 88.9 g/m2 [facility] Work Phone: LV RWT 0.43 [facility] Work Phone: LV stroke volume BP (ml) 48 mL [facility] Work Phone: LV stroke volume index BP 22.75 mL/m2 [facility] Work Phone: [phone] LVIDD 5.01 cm [facility] Work Phone: [phone] LVIDS 3.98 cm [facility] Work Phone: LVOT area 2.75 cm2 [facility] Work Phone: [phone] LVOT diameter 1.87 cm [facility] Work Phone: [phone] LVOT peak obdulio 1.23 m/s [facility] Work Phone: [phone] LVOT peak VTI 21.19 cm [facility] Work Phone: [phone] [facility] stroke [facility] LVOT stroke volume index 27.57 ml/m2 [facility] Work Phone: [phone] MV mean gradient 10 mmHg [facility] Work Phone: MV peak gradient 20 mmHg [facility] Work Phone: MV stenosis pressure 1/2 time 161.2 ms [facility] Work Phone: MV valve area by continuity eq 1.06 cm2 [facility] Work Phone: [phone] MV valve area p 1/2 method 1.36 cm2 [facility] Work Phone: MV VTI 54.69 cm [facility] Work Phone: MVA (continuity VTI) 1.07 cm [facility] Work Phone: [facility]SU AV VTI RATIO PRE STRESS 0.65 [facility] Work Phone: [facility]SU ECHO LV BIPLANE SYSTOLIC VOLUME INDEX 13.74 mL/m2 [facility] Work Phone: [facility] ECHO LV BP DIASTOLIC VOLUME INDEX 36.49 mL/m2 [facility] Work Phone: PV mean gradient 3 mmHg [facility] Work Phone: PV peak gradient 7 mmHg [facility] Work Phone: PV PK OBDULIO 1.3 m/s [facility] Work Phone: PW 1.07 cm [facility] Work Phone: RA area 4CH (MOD) 15.29 cm2 [facility] Work Phone: RA vol index 4CH (MOD) 18.96 mL/m2 O [facility] Work Phone: Right atrium volume 4 chamber method of disks 40 mL [facility] Work Phone: RV Area diastolic 10.6 cm2 [facility] Work Phone: RV Area systolic 4.5 cm2 [facility] Work Phone: RV basal diam 2.92 cm [facility] Work Phone: RV Fractional area change 57.5 % [facility] Work Phone: RV long diam 6.66 cm [facility] Work Phone: RV mid diam 1.7 cm [facility] Work Phone: RV S' 12.19 cm/s [facility] Work Phone: RVOT peak gradient 4 mmHg [facility] Work Phone: RVOT peak obdulio 0.99 m/s [facility] Work Phone: RVOT peak VTI 16 cm [facility] Work Phone: Sinus 2.34 cm [facility] Work Phone: STJ 2.27 cm [facility] Work Phone: Stroke Volume 58 cm/mL [facility] Work Phone: Stroke volume index 28 [facility] Work Phone: TAPSE 1.41 cm [facility] Work Phone: TR pk grad 35 mmHg [facility] Work Phone: TR pk obdulio 2.97 m/s [facility] Work Phone: [facility] Work Phone: Cardiac echo study Procedure [...] and M-mode) was performed. Imaging system used: Onavo. Indications Indications for study: stroke/tia. [facility] Radiology Study observation (narrative) [facility] [...] from the original result were not included. [facility] Facility [facility] Patient Information Patient Name Elizabeth Henley Legal [...] Role Read Date Panda Ko DO Echo [place] 11/09/2024 Left Heart Measurements LV - Systole [...] m/s A (more content not included)... Normal [facility] EXTRA MICROon 11-09-2024 [facility] GLUCOSE POCon 11-09-2024 Glucose [Mass/Vol] 164 mg/dL 70 - 179 mg/dL [facility] POC Sample Type CAPBL [facility] Test performed at ad dress of the patient encounter. [facility] Glucose [Mass/Vol] 128 mg/dL 70 - 179 mg/dL [facility] POC Sample Type CAPBL [facility] Test performed at ad dress of the patient encounter. [facility] Glucose [Mass/Vol] 152 mg/dL 70 - 179 mg/dL [facility] POC Sample Type CAPBL [facility] Test performed at ad dress of the patient encounter. [facility] Glucose [Mass/Vol] 136 mg/dL 70 - 179 mg/dL [facility] POC Sample Type CAPBL [facility] Test performed at ad dress of the patient encounter. [facility] HEPATIC FUNCTION PANELon Albumin [Mass/Vol] 4.2 g/dL 3.5 - 5.0 g/dL [facility] ALP [Catalytic activity/Vol] 107 U/L 32 - 126 U/L [facility] ALT [Catalytic activity/Vol] 8 U/L Low 9 - 48 U/L [facility] AST [Catalytic activity/Vol] 25 U/L 10 - 39 U/L [facility] Comment on above: Specimen slightly he molyzed. AST results may be falsely elevated. Interpret within the clinical context. Bilirubin [Mass/Vol] 0.6 [facility] Bilirubin.direct [Mass/Vol] 0.1 mg/dL [facility] 0[facility] mg/dL [facility] Comment on above: Specimen hemolyzed. Direct bilirubin results may be falsely decreased. Interpret within the clinical context. Interpretation and review of laboratory results Abnormal [facility] Protein [Mass/Vol] 7.4 g/dL 6.4 - 8.3 g/dL [facility] LIPID PANEL WITH REFLEX TO M EASURED LDLon 11-09-2024 Cholesterol [Mass/Vol] 151 mg/dL NINF - 200 mg/dL [facility] Comment on above: [<200 mg/dL: Desirab le] [200-239 mg/dL: Borderline High] [>239 mg/dL: High] Cholesterol in HDL [Mass/Vol] 59 mg/dL 40 - PINF mg/dL [facility] Comment on above: [<40 mg/dL: Low (Hig h Risk)] [>59 mg/dL: High (Low Risk)] Cholesterol in LDL [Mass/Vol] 81 mg/dL 0 - 99 mg/dL [facility] Comment on above: [<100 mg/dL: Optimal ] [100-129 mg/dL: Near Optimal] [130-159 mg/dL: Borderline High] [160-189 mg/dL: High] [>189 mg/dL: Very High] Cholesterol non HDL [Mass/Vol] 92 mg/dL NINF - 130 mg/dL [facility] Cholesterol.total/Choles terol in HDL [Mass ratio] 2.6 {ratio} NINF - 4.5 [facility] Interpretation and review of laboratory results Normal [facility] Triglyceride [Mass/Vol] 55 mg/dL NINF - 150 mg/dL [facility] Comment on above: [<150 mg/dL: Desirab le] [150-199 mg/dL: Borderline] [200-499 mg/dL: High] [>500 mg/dL: Very High] MAGNESIUMon 11-09-2024 Interpretation and review of laboratory results Normal [facility] Magnesium [Mass/Vol] 1.9 mg/dL 1.6 - 2 .6 mg/dL [facility] Magnesium [Mass/Vol] 1.9 mg/dL Normal 1.6-2.6 [facility] Comment on above: Performed By: #### L IPDR, [facility], CHM7 #### [facility] (DEFAULT) [address] [place] [address] MR Brain WO contraston 11-09 IMPRESSION: Acute [...] MCA infarct. No evidence of hemorrhagic transformation [facility] Radiology Study observation (narrative) [facility] MR Brain WO contrastOrdered By: Elen Burch on 11-09-2024 [facility] Work Phone: MRI BRAIN WITHOUT CONTRASTon [...] infarct. No evidence of hemorrhagic transformation Normal [facility] No Panel Informationon 11-09 [facility] 12 Lead EKGon 11-08-2024 12 Lead EKG Normal [facility] Absolute lymphocyte countOrd ered By: Phillip Maldonado on 11-08-2024 Lymphocytes Auto (Unsp spec) [#/Vol] 1.91 10*3/uL 0.83-4.51 [facility] Absolute neutrophil countOrd ered By: Phillip Maldonado on 11-08-2024 Neutrophils (Bld) [#/Vol] 6.2 10*3/uL 2.0-7.7 [facility] Activated partial thrombopla stin time (aPTT) in platelet poor plasma by coagulation aOrdered By: Phillip Maldonado on 11-08-2024 aPTT Coag (PPP) [Time] 34.5 s 24.1-36.2 [facility] Anion gap in Serum or Plasma Ordered By: Phillip Maldonado on 11-08-2024 Anion gap [Moles/Vol] 10 mmol/L 5-15 [facility] Automated lymphocyte count a s percentage of total leukocytesOrdered By: Phillip Maldonado on 11-08-2024 Lymphocytes/100 WBC Auto (Unsp spec) 21.1 % 19-41 [facility] BUN/creatinine ratioOrdered By: Phillip Maldonado on 11-08-2024 Urea nitrogen/Creatinine [Mass ratio] 15.4 mg/mg 10- [facility] Basic Metabolic Profile (BMP )on 11-08-2024 BUN/CRE 15.4 RATIO Normal 05-23 [facility] Comment on above: Performed By: #### L 501.4021, L100.0100, L300.4310, L300.3900, L500.2500 ####[facility] [address] [place], [address] Calcium [Mass/Vol] 9.3 mg/dL Normal 7.6-11.[address] [facility] Comment on above: Performed By: #### L 501.4021, L100.0100, L300.4310, L300.3900, L500.2500 ####[facility] [address] [place], [address] Chloride [Moles/Vol] 103 mmol/L Normal 98-108 [facility] Comment on above: Performed By: #### L 501.4021, L100.0100, L300.4310, L300.3900, L500.2500 ####[facility] [address] [place], [address] CO2 [Moles/Vol] 26.1 mmol/L Normal 21.0-32.0 [facility] Comment on above: Performed By: #### L 501.4021, L100.0100, L300.4310, L300.3900, L500.2500 ####[facility] [address] [place], [address] Creatinine [Mass/Vol] 0.82 mg/dL Normal 0.70-1.20 [facility] Comment on above: Performed By: #### L 501.4021, L100.0100, L300.4310, L300.3900, L500.2500 ####[facility] [address] [place], [address] ECRCL 72.42 ml/min Normal 50-250 [facility] Comment on above: Performed By: #### L 501.4021, L100.0100, L300.4310, L300.3900, L500.2500 ####[facility] [address] [place], [address] GAP 10 Normal 5-15 [facility] Comment on above: Performed By: #### L 501.4021, L100.0100, L300.4310, L300.3900, L500.2500 ####[facility] [address] [place], [address] GFR/1.73 sq M.predicted among non-blacks MDRD (S/P/Bld) [Vol rate/Area] 76 mL/min/{1.73_m2} Normal >60 [facility] Comment on above: Result Comment: mL/m in/1.73m2 CKD-EPI Creatinine Equation (2020) Performed By: #### L 501.4021, L100.0100, L300.4310, L300.3900, L500.2500 ####[facility] [address] [place], [address] Glucose [Mass/Vol] 129 mg/dL High 70-[address] [facility] Comment on above: Performed By: #### L 501.4021, L100.0100, L300.4310, L300.3900, L500.2500 ####[facility] [address] [place], [address] Potassium [Moles/Vol] 4.2 mmol/L Normal 3.3-5.1 [facility] Comment on above: Performed By: #### L 501.4021, L100.0100, L300.4310, L300.3900, L500.2500 ####[facility] [address] [place], [address] Sodium [Moles/Vol] 139 mmol/L Normal 133-[address] [facility] Comment on above: Performed By: #### L 501.4021, L100.0100, L300.4310, L300.3900, L500.2500 ####[facility] [address] [place], [address] Urea nitrogen [Mass/Vol] 13 mg/dL Normal 4-19 [facility] Comment on above: Performed By: #### L 501.4021, L100.0100, L300.4310, L300.3900, L500.2500 ####[facility] [address] [place], [place], [address] Basophil percentageOrdered B y: Phillip Maldonado on 11-08-2024 Basophils/100 WBC (Bld) 0.7 % 0-1 [facility] Bedside Glucoseon 11-08-2024 FINGERSTICK GLU 127 mg/dL High 74-106 [facility] Comment on above: Result Comment: FRANCINE SKINNER OF PATIENT CARE PER NURSING PROTOCOL Performed By: #### L 501.080 ####[facility] [address] [place], [place], [id number] CBC AND ELECTRONIC DIFFon Basophils (Bld) [#/Vol] 0.05 10*3/uL 0.00 - 0.15 K/uL [facility] Basophils/100 WBC (Bld) 0.6 % [facility] Differential cell count method Nom (Bld) Electronic Differential [facility] Eosinophils (Bld) [#/Vol] 0.14 10*3/uL 0.00 - 0.42 K/uL [facility] Eosinophils/100 WBC (Bld) 1.6 % [facility] Erythrocyte distribution width (RBC) [Ratio] 15.4 % High 10.8 - 14.9 % [facility] Hematocrit (Bld) [Volume fraction] 53 % High 34.9 - 44.3 % [facility] Hemoglobin (Bld) [Mass/Vol] 16.1 g/dL High 11.4 - 15.2 g/dL [facility] Immature granulocytes (Bld) [#/Vol] K/uL NINF - 0.08 K/uL [facility] Immature granulocytes/100 WBC (Bld) 0.3 % [facility] Interpretation and review of laboratory results Abnormal [facility] Lymphocytes (Bld) [#/Vol] 1.52 10*3/uL 1.16 - 3.51 K/uL [facility] Lymphocytes/100 WBC (Bld) 17.6 % [facility] MCH (RBC) [Entitic mass] 27.5 pg 25. 9 - 33.9 pg [facility] MCHC (RBC) [Mass/Vol] 30.4 g/dL Low 31.4 - 35.9 g/dL [facility] MCV (RBC) [Entitic vol] 90.4 fL 79.6 - 97.7 fL [facility] Monocytes (Bld) [#/Vol] 0.72 10*3/uL 0.22 - 0.87 K/uL [facility] Monocytes/100 WBC (Bld) 8.3 % O [facility] Neutrophils (Bld) [#/Vol] 6.17 10*3/uL 1.64 - 7.28 K/uL [facility] Nucleated RBC/100 WBC (Bld) [Ratio] 0 % NINF [facility] Platelet mean volume (Bld) [Entitic vol] 10.3 fL 8.5 - 12.2 fL [facility] Platelets (Bld) [#/Vol] 202 10*3/uL 150 - 393 K/uL [facility] RBC (Bld) [#/Vol] 5.86 10*6/uL High [facility] Segmented neutrophils/100 WBC (Bld) 71.6 % [facility] WBC (Bld) [#/Vol] 8.63 10*3/uL 3.99 - 11.19 K/uL [facility] Basophils (Bld) [#/Vol] 0.05 10*3/uL Normal 0.00-0.15 [facility] Comment on above: Performed By: #### L TORIN CONNER, TIFFANY7 #### [facility] (DEFAULT) [address] [address] Basophils/100 WBC (Bld) 0.6 % Normal [facility] Comment on above: Performed By: #### L IPDRTORIN, CHM7 #### [facility] (DEFAULT) [address] [place] [address] DIFF STATUS Electronic Differential Normal [facility] Comment on above: Performed By: #### L IPDR, HFP, CHM7 #### [facility] (DEFAULT) [address] [place] [address]859 Eosinophils (Bld) [#/Vol] 0.14 10*3/uL Normal 0.00-0.42 [facility] Comment on above: Performed By: #### L IPDR, HFP, CHM7 #### [facility] (DEFAULT) [address] [place] [address]67 Eosinophils/100 WBC (Bld) 1.6 % Normal [facility] Comment on above: Performed By: #### L IPDR, HFP, CHM7 #### [facility] (DEFAULT) [address] [place] [address] 40500 Hematocrit (Bld) [Volume fraction] 53.0 % High 34.9-44.3 [facility] Comment on above: Performed By: #### L IPDR, HFP, CHM7 #### [facility] (DEFAULT) [address] [place] [address] 79566 Hemoglobin (Bld) [Mass/Vol] 16.1 g/dL High 11.4-15.2 [facility] Comment on above: Performed By: #### L IPDR, HFP, CHM7 #### [facility] (DEFAULT) [address] [place] [address] Immature Grans % 0.3 % Normal [facility] Comment on above: Performed By: #### L IPDR, HFP, CHM7 #### [facility] (DEFAULT) [address] [place] [address] 23661 Immature Grans Absolute < Normal <=0.08 [facility] Comment on above: Performed By: #### L IPDR, HFP, CHM7 #### [facility] (DEFAULT) [address] [place] [address] 50353 Lymphocytes (Bld) [#/Vol] 1.52 10*3/uL Normal 1.16-3.51 [facility] Comment on above: Performed By: #### L IPDR, HFP, CHM7 #### [facility] (DEFAULT) [address] [place] [address] 92236 Lymphocytes/100 WBC (Bld) 17.6 % Normal [facility] Comment on above: Performed By: #### L IPDR, HFP, CHM7 #### [facility] (DEFAULT) [address] [place] [address] 78000 MCV (RBC) [Entitic vol] 90.4 fL Normal 79.6-97.7 [facility] Comment on above: Performed By: #### L IPDR, HFP, CHM7 #### [facility] (DEFAULT) [address] [place] [address] 80338 Mean Cell Hgb 27.5 pg Normal 25.9-33.9 [facility] Comment on above: Performed By: #### L IPDR, HFP, CHM7 #### [facility] (DEFAULT) [address] [place] [address] 76626 Mean Cell Hgb Conc 30.4 g/dL Low 31.4-35.9 [facility] Comment on above: Performed By: #### L IPDR, HFP, CHM7 #### [facility] (DEFAULT) [address] [place] [address] 90482 Monocytes (Bld) [#/Vol] 0.72 10*3/uL Normal 0.22-0.87 [facility] Comment on above: Performed By: #### L IPDR, HFP, CHM7 #### [facility] (DEFAULT) [address] [place] [address] 28189 Monocytes/100 WBC (Bld) 8.3 % Normal [facility] Comment on above: Performed By: #### L IPDR, HFP, CHM7 #### [facility] (DEFAULT) [address] [place] [address] 92027 Nucleated RBC 0.0 /100 WBC Normal <=0.2 [facility] Comment on above: Performed By: #### L IPDR, HFP, CHM7 #### [facility] (DEFAULT) [address] [place] [address] 83881 Platelet mean volume (Bld) [Entitic vol] 10.3 fL Normal 8.5-12.2 [facility] Comment on above: Performed By: #### L IPDR, HFP, CHM7 #### [facility] (DEFAULT) [address] [place] [address] 88620 Platelets (Bld) [#/Vol] 202 10*3/uL Normal 150-393 [facility] Comment on above: Performed By: #### L IPDR, HFP, CHM7 #### [facility] (DEFAULT) [address] [place] [address] 05779 RBC (Bld) [#/Vol] 5.86 10*6/uL High 3.91-5.04 [facility] Comment on above: Performed By: #### L IPDR, HFP, CHM7 #### [facility] (DEFAULT) [address] [place] [address] 24177 RBC Distribution 15.4 % High 10.8-14.9 [facility] Comment on above: Performed By: #### L IPDR, HFP, CHM7 #### [facility] (DEFAULT) [address] [place] [address] 61650 Segs + Bands Auto 71.6 % Normal [facility] Comment on above: Performed By: #### L IPDR, HFP, CHM7 #### U [facility] (DEFAULT) [address] [place] [address] 01007 Segs + Bands,Absolute Auto 6.17 K/uL Normal 1.64-7.28 [facility] Comment on above: Performed By: #### L IPDR, HFP, CHM7 #### U [facility] (DEFAULT) [address] [place] [address] WBC (Bld) [#/Vol] 8.63 10*3/uL Normal 3.99-11.19 [facility] Comment on above: Performed By: #### L IPDR, HFP, CHM7 #### [facility] (DEFAULT) [address] [place] [address] CBC W/Diff, Automatedon 04-0 -2024 Absolute Lymph 1.91 X10 3/uL Normal 0.83-4.51 [facility] Comment on above: Performed By: #### L 501.4021, L100.0100, L300.4310, L300.3900, L500.2500 ####[facility] [address] [place], [address] Absolute Neut 6.2 X10 3/uL Normal 2.0-7.7 [facility] Comment on above: Performed By: #### L 501.4021, L100.0100, L300.4310, L300.3900, L500.2500 ####[facility] [address] [place], [address] Basophils/100 WBC (Bld) 0.7 % Normal 0-1 [facility] Comment on above: Performed By: #### L 501.4021, L100.0100, L300.4310, L300.3900, L500.2500 ####[facility] [address] [place], [address] Eosinophils/100 WBC (Bld) 1.8 % Normal 0-5 [facility] Comment on above: Performed By: #### L 501.4021, L100.0100, L300.4310, L300.3900, L500.2500 ####[facility] [address] [place], [address] Erythrocyte distribution width (RBC) [Ratio] 15.3 % High 11.6-14.6 [facility] Comment on above: Performed By: #### L 501.4021, L100.0100, L300.4310, L300.3900, L500.2500 ####[facility] [address] [place], [address] Hematocrit (Bld) [Volume fraction] 47.4 % High 37-47 [facility] Comment on above: Performed By: #### L 501.4021, L100.0100, L300.4310, L300.3900, L500.2500 ####[facility] [address] [place], [address] Hemoglobin (Bld) [Mass/Vol] 15.3 g/dL High 12.0-15.0 [facility] Comment on above: Performed By: #### L 501.4021, L100.0100, L300.4310, L300.3900, L500.2500 ####[facility] [address] [place], [address] IG% 0.300 Normal 0.0-0.9 [facility] Comment on above: Result Comment: IG% - Immature Granulocytes (promyelocytes, myelocytes andmetamyelocytes) > 1% indicates that a LEFT SHIFT is Present. Performed By: #### L 501.4021, L100.0100, L300.4310, L300.3900, L500.2500 ####[facility] [address] [place], [address] Lymphocytes/100 WBC (Bld) 21.1 % Normal 19-41 [facility] Comment on above: Performed By: #### L 501.4021, L100.0100, L300.4310, L300.3900, L500.2500 ####[facility] [address] [place], [address] MCH (RBC) [Entitic mass] 28.6 pg Normal 27.0-32.0 [facility] Comment on above: Performed By: #### L 501.4021, L100.0100, L300.4310, L300.3900, L500.2500 ####[facility] [address] [place], [address] MCHC (RBC) [Mass/Vol] 32.3 g/dL Normal 32-36 [facility] Comment on above: Performed By: #### L 501.4021, L100.0100, L300.4310, L300.3900, L500.2500 ####[facility] [address] [place], [address] MCV (RBC) [Entitic vol] 88.6 fL Normal 81-99 [facility] Comment on above: Performed By: #### L 501.4021, L100.0100, L300.4310, L300.3900, L500.2500 ####[facility] [address] [place], [address] Monocytes/100 WBC (Bld) 8.2 % Normal 0-10 [facility] Comment on above: Performed By: #### L 501.4021, L100.0100, L300.4310, L300.3900, L500.2500 ####[facility] [address] [place], [address] Neutrophils/100 WBC (Bld) 67.9 % Normal 47-70 [facility] Comment on above: Performed By: #### L 501.4021, L100.0100, L300.4310, L300.3900, L500.2500 ####[facility] [address] [place], [address] Nucleated RBC (Bld) [#/Vol] 0 10*3/uL Normal 0-5 [facility] Comment on above: Performed By: #### L 501.4021, L100.0100, L300.4310, L300.3900, L500.2500 ####[facility] [address] [place], [address] Platelet mean volume (Bld) [Entitic vol] 10.0 fL Normal 6.2-12.0 [facility] Comment on above: Performed By: #### L 501.4021, L100.0100, L300.4310, L300.3900, L500.2500 ####[facility] [address] [place], [address] Platelets (Bld) [#/Vol] 194 10*3/uL Normal 150-450 [facility] Comment on above: Performed By: #### L 501.4021, L100.0100, L300.4310, L300.3900, L500.2500 ####[facility] [address] [place], [address] RBC (Bld) [#/Vol] 5.35 10*6/uL Normal 4.2-5.[address] [facility] Comment on above: Performed By: #### L 501.4021, L100.0100, L300.4310, L300.3900, L500.2500 ####[facility] [address] [place], [address] RDW SD 49.4 fl High 35.1-43.9 [facility] Comment on above: Performed By: #### L 501.4021, L100.0100, L300.4310, L300.3900, L500.2500 ####[facility] [address] [place], [address] WBC (Bld) [#/Vol] 9.1 10*3/uL Normal 4.4-11.[address] [facility] Comment on above: Performed By: #### L 501.4021, L100.0100, L300.4310, L300.3900, L500.2500 ####[facility] [address] [place], [address] CHEM 7 (LYTES,BUN,CREA,GLUC) on 11-08-2024 Anion gap [Moles/Vol] 24 mmol/L High 7-17 [facility] Comment on above: Performed By: #### L IPDR, HFP, CHM7 #### [facility] (DEFAULT) [address] [place] [address] Chloride [Moles/Vol] 100 mmol/L Normal 98-108 [facility] Comment on above: Performed By: #### L IPDR, HFP, CHM7 #### [facility] (DEFAULT) [address] [place] [address] 12178 CO2 [Moles/Vol] 20 mmol/L Low 21-31 [facility] Comment on above: Performed By: #### L IPDR, HFP, CHM7 #### [facility] (DEFAULT) [address] [place] [address]406 Creatinine [Mass/Vol] 0.84 mg/dL Normal 0.50-1.20 [facility] Comment on above: Performed By: #### L IPDR, HFP, CHM7 #### [facility] (DEFAULT) [address] [place] [address]34[address] GFR/1.73 sq M.predicted among non-blacks MDRD (S/P/Bld) [Vol rate/Area] 74 mL/min/{1.73_m2} Normal >=60 [facility] Comment on above: Result Comment: Repo rted eGFR is based on the CKD-EPI 2020 equation using creatinine, age, and sex. Performed By: #### L IPDR, HFP, CHM7 #### [facility] (DEFAULT) [address] [place] [address]40 Glucose [Mass/Vol] 109 mg/dL Normal Nonfastin g : 70-179 mg/dL; Fastin-99 [facility] Comment on above: Performed By: #### L IPDR, HFP, CHM7 #### [facility] (DEFAULT) [address] [place] [address] Osmolality [Osmolality] 293 mosm/kg Normal 278-305 [facility] Comment on above: Performed By: #### L IPDR HFP, CHM7 #### [facility] (DEFAULT) [address] [place] [address] 14684 Potassium [Moles/Vol] 5.6 mmol/L High 3.5-5.0 [facility] Comment on above: Result Comment: Spec imen slightly hemolyzed. Potassium results may be falsey elevated by more than 0.5 mmol/L. Consider recollection. Performed By: #### L IPDRTORIN, CHM7 #### [facility] (DEFAULT) [address] [place] [address] 33146 Sodium [Moles/Vol] 138 mmol/L Normal 135-145 [facility] Comment on above: Performed By: #### L IPDRTORIN, CHM7 #### [facility] (DEFAULT) [address] [place] [address] 50555 Urea nitrogen [Mass/Vol] 13 mg/dL Normal 7-25 [facility] Comment on above: Performed By: #### L IPDR, HFP, CHM7 #### [facility] (DEFAULT) [address] [place] [address] 57390 Urea nitrogen/Creatinine [Mass ratio] 15 mg/mg Normal [facility] Comment on above: Performed By: #### L IPDR, HFP, CHM7 #### [facility] (DEFAULT) [address] [place] [address] 90990 [facility] 7 - EDon 11-08-2024 Anion gap [Moles/Vol] 8 mmol/L 7 - 17 mmol/L [facility] Chloride [Moles/Vol] 101 mmol/L 98 - 10 8 mmol/L [facility] CO2 [Moles/Vol] 31 mmol/L 21 - 31 mmol/L [facility] Creatinine [Mass/Vol] 0.82 mg/dL 0.50 - 1.20 mg/dL [facility] eGFR, CKD-EPI, Female 78 - PINF [facility] Comment on above: Reported eGFR is bas ed on the CKD-EPI 2020 equation using creatinine, age, and sex. Glucose [Mass/Vol] 106 mg/dL 70 - 179 mg/dL [facility] Osmolality Calc [facility]Osmolality] 285 [facility] Potassium [Moles/Vol] 4.5 mmol/L 3.5 - 5.0 mmol/L [facility] Sodium [Moles/Vol] 135 mmol/L 135 - 145 mmol/L [facility] Urea nitrogen [Mass/Vol] 12 mg/dL 7 - 25 mg/dL [facility] Urea nitrogen/Creatinine [Mass ratio] 15 mg/mg [facility] Anion gap [Moles/Vol] 8 mmol/L Normal 7-17 [facility] Comment on above: Performed By: #### L IPDR, HFP, CHM7 #### [facility] (DEFAULT) [address] [place] [address] 58010 Chloride [Moles/Vol] 101 mmol/L Normal 98-108 [facility] Comment on above: Performed By: #### L IPDR, HFP, CHM7 #### [facility] (DEFAULT) [address] [place] [address] CO2 [Moles/Vol] 31 mmol/L Normal 21-31 [facility] Comment on above: Performed By: #### L IPDR, HFP, CHM7 #### [facility] (DEFAULT) [address] [place] [address] 22362 Creatinine [Mass/Vol] 0.82 mg/dL Normal 0.50-1.20 [facility] Comment on above: Performed By: #### L IPDR, HFP, CHM7 #### [facility] (DEFAULT) [address] [place] [address] 89406 GFR/1.73 sq M.predicted among non-blacks MDRD (S/P/Bld) [Vol rate/Area] 76 mL/min/{1.73_m2} Normal >=60 [facility] Comment on above: Result Comment: Repo rted eGFR is based on the CKD-EPI 2020 equation using creatinine, age, and sex. Performed By: #### L IPDR, HFP, CHM7 #### [facility] (DEFAULT) [address] [place] [address] 69728 Glucose [Mass/Vol] 106 mg/dL Normal Nonfastin g : 70-179 mg/dL; Fastin-99 [facility] Comment on above: Performed By: #### L IPDR, HFP, CHM7 #### [facility] (DEFAULT) [address] [place] [address] 93593 Osmolality [Osmolality] 285 mosm/kg Normal 278-305 [facility] Comment on above: Performed By: #### L IPDR, HFP, CHM7 #### [facility] (DEFAULT) [address] [place] [address] 96296 Potassium [Moles/Vol] 4.5 mmol/L Normal 3.5-5.0 [facility] Comment on above: Performed By: #### L IPDR, HFP, CHM7 #### [facility] (DEFAULT) [address] [place] [address] 06936 Sodium [Moles/Vol] 135 mmol/L Normal 135-145 [facility] Comment on above: Performed By: #### L IPDR, HFP, CHM7 #### [facility] (DEFAULT) [address] [place] [address] 84625 Urea nitrogen [Mass/Vol] 12 mg/dL Normal 7-25 [facility] Comment on above: Performed By: #### L IPDR, HFP, CHM7 #### [facility] (DEFAULT) [address] [place] [address] 95517 Urea nitrogen/Creatinine [Mass ratio] 15 mg/mg Normal [facility] Comment on above: Performed By: #### L IPDR, HFP, CHM7 #### [facility] (DEFAULT) [address] [place] [address] CT ANGIO BRAIN/NECKon 2024 CT ANGIO BRAIN/NECK [...] have reviewed and approved this report. Normal [facility] CT CEREBRAL PERFUSION ANALYS [place] 11-08-2024 [...] have reviewed and approved this report. Normal [facility] IMPRESSION: Small core infarct with ischemic [...] I have reviewed and approved this report. [facility] Radiology Study observation (narrative) [facility] CT Head and CT Brain for per [...] I have reviewed and approved this report. [facility] Radiology Study observation (narrative) [facility] [...] I have reviewed and approved this report. [facility] Radiology Study observation (narrative) [facility] CT Head limitedOrdered By: Zita Jacobs on 11-08-[address] [facility] [address] STROKE HEAD-STROKE ALERT ONLYon 11-08-2024 [...] have reviewed and approved this report. Normal [facility] Carbon dioxide, total [Moles /volume] in Central venous bloodOrdered By: Phillip Maldonado on 11-08-2024 CO2 [Moles/Vol] 26.1 mmol/L 21.0-32.0 [facility] Chloride assayOrdered By: Robby Maldonado on 11-08-2024 Chloride [Moles/Vol] 103 mmol/L 98-108 [facility] Emergency Department Summary on 11-08-2024 Emergency Department Summary Normal [facility] Eosinophil percentageOrdered By: Phillip Maldonado on 11-08-2024 Eosinophils/100 WBC (Bld) 1.8 % 0-5 [facility] Erythrocyte distribution wid th (RBC) [Ratio]Ordered By: Phillip Maldonado on 11-08-2024 Erythrocyte distribution width (RBC) [Entitic vol] 49.4 fL High 35.1-43.9 [facility] Erythrocyte distribution wid th ratioOrdered By: Phillip Maldonado on 11-08-2024 Erythrocyte distribution width (RBC) [Ratio] 15.3 % High 11.6-14.6 [facility] Erythrocyte distribution wid th standard deviationOrdered By: Phillip Maldonado on 11-08-2024 Erythrocyte distribution width (RBC) [Ratio] 49.4 fl High 35.1-43.9 [facility] Estimation of creatinine martín aranceOrdered By: Phillip Maldonado on 11-08-2024 Estimated Creatinine Clearance Calc 72.42 ml/min 50-250 [facility] GFR/1.73 sq M.predicted ronit g non-blacks MDRD (S/P/Bld) [Vol rate/Area]Ordered By: Phillip Maldonado on 11-08-2024 Estimated GFR (MDRD) Non-Af Amer 76 >60 [facility] Comment on above: mL/min/1.73m2 CKD-EP I Creatinine Equation (2020) GLUCOSE POCon 11-08-2024 Glucose [Mass/Vol] 114 mg/dL 70 - 179 mg/dL [facility] POC Sample Type CAPBL [facility] Test performed at ad dress of the patient encounter. [facility] Glucose [Mass/Vol] 84 mg/dL 70 - 179 mg/dL [facility] POC Sample Type VENO [facility] Test performed at ad dress of the patient encounter. [facility] Glomerular filtration rate ( GFR) estimation/1.73 sq m using serum, plasma, or whole bOrdered By: Phillip Maldonado on 11-08-2024 GFR/1.73 sq M.predicted among non-blacks MDRD (S/P/Bld) [Vol rate/Area] 76 mL/min/{1.73_m2} >60 [facility] Comment on above: mL/min/1.73m2 CKD-EP I Creatinine Equation (2020) [facility] deOrdered By: Phillip Maldonado on 11-08-2024 Glucose [Mass/Vol] 127 mg/dL High 74-[address] [facility] Comment on above: MANAGEMENT OF PATIEN T CARE PER NURSING PROTOCOL HEMOGLOBIN A1Con 11-08-2024 Average glucose Estimated from glycated hemoglobin (Bld) [Mass/Vol] 151 mg/dL [facility] HbA1c (Bld) [Mass fraction] 6.9 % High 4.7 - 5.6 % [facility] Interpretation and review of laboratory results Abnormal [facility] Glucose [Mass/Vol] 151 mg/dL Normal [facility] Comment on above: Performed By: #### L SKYLERR, TORIN, CHM7 #### [facility] (DEFAULT) [address] [place] [address] Hemoglobin A1C HPLC 6.9 % High 4.7-5.6 [facility] Comment on above: Performed By: #### L IPDR, TORIN, CHM7 #### [facility] (DEFAULT) [address] [address] HEPATIC FUNCTION PANELon Albumin [Mass/Vol] 3.9 g/dL 3.5 - 5.0 g/dL [facility] ALP [Catalytic activity/Vol] 101 U/L 32 - 126 U/L [facility] ALT [Catalytic activity/Vol] 7 U/L Low 9 - 48 U/L [facility] AST [Catalytic activity/Vol] 12 U/L 10 - 39 U/L [facility] Bilirubin [Mass/Vol] 0.6 mg/dL NINF - 1.5 mg/dL [facility] Bilirubin.direct [Mass/Vol] 0.1 [facility] Interpretation and review of laboratory results Abnormal [facility] Protein [Mass/Vol] 7.3 g/dL 6.4 - 8.3 g/dL [facility] Albumin [Mass/Vol] 3.9 g/dL Normal 3.5-5.0 [facility] Comment on above: Performed By: #### L IPDRTORIN, CHM7 #### [facility] (DEFAULT) [address] [address] ALP [Catalytic activity/Vol] 101 U/L Normal 32-126 [facility] Comment on above: Performed By: #### L IPDR, HFP, CHM7 #### [facility] (DEFAULT) [address] [address] ALT [Catalytic activity/Vol] 7 U/L Low 9-48 [facility] Comment on above: Performed By: #### L IPDR, HFP, CHM7 #### [facility] (DEFAULT) [address] [address] AST [Catalytic activity/Vol] 12 U/L Normal 10-39 [facility] Comment on above: Performed By: #### L IPDR, HFP, CHM7 #### [facility] (DEFAULT) [address] [place] [address] Bilirubin [Mass/Vol] 0.6 mg/dL Normal <1.5 [facility] Comment on above: Performed By: #### L IPDR, HFP, CHM7 #### [facility] (DEFAULT) [address] [place] [address]97 Bilirubin.indirect [Mass/Vol] 0.1 mg/dL Normal <0.3 [facility] Comment on above: Performed By: #### L IPDR, HFP, CHM7 #### [facility] (DEFAULT) [address] [place] [address] 19133 Protein [Mass/Vol] 7.3 g/dL Normal 6.4-8.3 [facility] Comment on above: Performed By: #### L IPDR, HFP, CHM7 #### [facility] (DEFAULT) [address] [place] [address] 10093 Albumin [Mass/Vol] 4.2 g/dL Normal 3.5-5.0 [facility] Comment on above: Performed By: #### L IPDR, HFP, CHM7 #### [facility] (DEFAULT) [address] [place] [address] 96909 ALP [Catalytic activity/Vol] 107 U/L Normal 32-126 [facility] Comment on above: Performed By: #### L IPDR, HFP, CHM7 #### [facility] (DEFAULT) [address] [place] [address] 64904 ALT [Catalytic activity/Vol] 8 U/L Low 9-48 [facility] Comment on above: Performed By: #### L IPDR, HFP, CHM7 #### [facility] (DEFAULT) [address] [place] [address] 37085 AST [Catalytic activity/Vol] 25 U/L Normal 10-39 [facility] Comment on above: Result Comment: Spec imen slightly hemolyzed. AST results may be falsely elevated. Interpret within the clinical context. Performed By: #### L IPDR, HFP, CHM7 #### [facility] (DEFAULT) [address] [place] [address] 39412 Bilirubin [Mass/Vol] 0.6 mg/dL Normal <1.5 [facility] Comment on above: Performed By: #### L IPDR, HFP, CHM7 #### [facility] (DEFAULT) [address] [place] [address]75 Bilirubin.indirect [Mass/Vol] 0.1 mg/dL Normal <0.3 [facility] Comment on above: Result Comment: Spec imen hemolyzed. Direct bilirubin results may be falsely decreased. Interpret within the clinical context. Performed By: #### L IPDR, HFP, CHM7 #### [facility] (DEFAULT) [address] [place] [address] 50294 Protein [Mass/Vol] 7.4 g/dL Normal 6.4-8.3 [facility] Comment on above: Performed By: #### L IPDR, HFP, CHM7 #### [facility] (DEFAULT) [address] [place] [address] 28281 HIGH SENSITIVITY TROPONIN I - SINGLE ORDEROrdered By: Carlos Eduardo Shelton on 11-08-2024 Interpretation and review of laboratory results Abnormal [facility] Troponin I.cardiac High sensitivity method [Mass/Vol] 146 ng/L High NINF - 34 ng/L [facility] Comment on above: Suggestive of myocar dial injury [facility] HIGH SENSITIVITY TROPONIN I - SINGLE ORDERon 11-08-2024 hs-Troponin I 146 ng/L High <34 [facility] Comment on above: Order Comment: Acute Coronary Syndrome (ACS): Initial Evaluation and Management:[email or web address]#[email or web address] Result Comment: Sugg estive of myocardial injury Performed By: #### L IPDR, HFP, CHM7 #### [facility] (DEFAULT) [address] [place] [address] 20095 Hematocrit Auto (Bld) [Volum e fraction]Ordered By: Phillip Maldonado on 11-08-2024 Hematocrit (Bld) [Volume fraction] 47.4 % High 37-47 [facility] Hemoglobin measurementOrdere d By: Phillip Maldonado on 11-08-2024 Hemoglobin (Bld) [Mass/Vol] 15.3 g/dL High 12.0-15.0 [facility] Immature granulocytes/100 WB C Auto (Bld)Ordered By: Phillip Maldonado on 11-08-2024 Immature granulocytes/100 WBC (Bld) 0.300 % 0.0-0.9 [facility] Comment on above: IG% - Immature Granu locytes (promyelocytes, myelocytes and metamyelocytes) > 1% indicates that a LEFT SHIFT is Present. International normalized rat io (INR) calculationOrdered By: Phillip Maldonado on 11-08-2024 INR Coag (Bld) [Relative time] 1.5 {INR} [facility] L499.0042on 11-08-2024 Trop T High Sen Normal <=14 [facility] Comment on above: Result Comment: Canc elled via OM: Order cancelled - Patient discharged Performed By: #### L 499.0042 ####[facility] [address] [place], [address] L499.0043on 11-08-2024 Trop T High Sen Normal <=14 [facility] Comment on above: Result Comment: Canc elled via OM: Order cancelled - Patient discharged Performed By: #### L 499.0043 ####[facility] [address] [place], [address] L501.4021on 11-08-2024 Trop T High Sen 20 ng/L High <=14 [facility] Comment on above: Performed By: #### L 501.4021, L100.0100, L300.4310, L300.3900, L500.2500 ####[facility] [address] [place], [address] LAVENDER TOP TUBEOrdered By: Madelyn Lacey on 11-08-2024 [facility] LIPID PANEL WITH REFLEX TO Kennedy KIMBALL LDLon 11-08-2024 Calculated LDL Cholesterol 81 mg/dL Normal 0-99 [facility] Comment on above: Result Comment: [<10 0 mg/dL: Optimal] [100-129 mg/dL: Near Optimal] [130-159 mg/dL: Borderline High] [160-189 mg/dL: High] [>189 mg/dL: Very High] Performed By: #### L IPDR, HFP, CHM7 #### [facility] (DEFAULT) [address] [place] [address] 11010 Cholesterol [Mass/Vol] 151 mg/dL Normal <200 [facility] Comment on above: Result Comment: [<20 0 mg/dL: Desirable] [200-239 mg/dL: Borderline High] [>239 mg/dL: High] Performed By: #### L IPDR, HFP, CHM7 #### [facility] (DEFAULT) [address] [place] [address] 50436 Cholesterol in HDL [Mass/Vol] 59 mg/dL Normal >=40 [facility] Comment on above: Result Comment: [<40 mg/dL: Low (High Risk)] [>59 mg/dL: High (Low Risk)] Performed By: #### L IPDR, HFP, CHM7 #### [facility] (DEFAULT) [address] [place] [address] 55467 Non HDL Cholesterol 92 mg/dL Normal <130 [facility] Comment on above: Performed By: #### L IPDR, HFP, CHM7 #### [facility] (DEFAULT) [address] [place] [address] 79056 Total Cholesterol/HDL Ratio 2.6 Normal <4.5 [facility] Comment on above: Performed By: #### L IPDR, HFP, CHM7 #### [facility] (DEFAULT) [address] [place] [address]47 Triglyceride [Mass/Vol] 55 mg/dL Normal <150 [facility] Comment on above: Result Comment: [<15 0 mg/dL: Desirable] [150-199 mg/dL: Borderline] [200-499 mg/dL: High] [>500 mg/dL: Very High] Performed By: #### L IPDR, HFP, CHM7 #### [facility] (DEFAULT) [address] [place] [address] LT BLUE TOP TUBEOrdered By: Denise Mittal on 11-08-2024 [facility] Lymphocytes Auto (Unsp spec) [#/Vol]Ordered By: Phillip Maldonado on 11-08-2024 Lymphocytes (Bld) [#/Vol] 1.91 10*3/uL 0.83-4.51 [facility] Lymphocytes/100 WBC Auto (Un sp spec)Ordered By: Phillip Maldonado on 11-08-2024 Lymphocytes/100 WBC (Bld) 21.1 % 19-41 [facility] MCV (mean corpuscular volume ) determinationOrdered By: Phillip Maldonado on 11-08-2024 MCV (RBC) [Entitic vol] 88.6 fL 81-99 [facility] Mean corpuscular hemoglobin (MCH) determinationOrdered By: Phillip Maldonado on 11-08-2024 MCH (RBC) [Entitic mass] 28.6 pg 27.0-32.0 [facility] Mean corpuscular hemoglobin concentration (MCHC) determinationOrdered By: Phillip Maldonado on 11-08-2024 MCHC (RBC) [Mass/Vol] 32.3 g/dL 32-36 [facility] Mean platelet volume determi nationOrdered By: Phillip Maldonado on 11-08-2024 Platelet mean volume (Bld) [Entitic vol] 10.0 fL 6.2-12.0 [facility] Monocyte percentageOrdered B y: Phillip Maldonado on 11-08-2024 Monocytes/100 WBC (Bld) 8.2 % 0-10 [facility] Neutrophil percentageOrdered By: Phillip Maldonado on 11-08-2024 Neutrophils/100 WBC (Bld) 67.9 % 47-70 [facility] No Panel Informationon 11-08 [facility] Nucleated red blood cell per centageOrdered By: Phillip Maldonado on 11-08-2024 Nucleated RBC/100 WBC (Bld) [Ratio] 0 % 0-5 [facility] PTINR-STROKEon 11-08-2024 INR Coag (Bld) [Relative time] 1.5 {INR} High 0.9 - 1.1 [facility] Interpretation and review of laboratory results Abnormal [facility] PT Coag (PPP) [Time] 18 s High [facility] INR Coag (PPP) [Relative time] 1.5 {INR} High 0.9-1.1 [facility] Comment on above: Performed By: #### L IPDR, HFP, CHM7 #### [facility] (DEFAULT) [address] [place] [address]247 PT Coag (PPP) [Time] 18.0 s High 11.9-14.2 [facility] Comment on above: Performed By: #### L IPDR, HFP, CHM7 #### [facility] (DEFAULT) [address] [place] [address] 29121 PTTon 11-08-2024 aPTT Coag (PPP) [Time] 37.4 s High [facility] Interpretation and review of laboratory results Abnormal [facility] aPTT Coag (Bld) [Time] 37.4 s High 24.0-34.3 [facility] Comment on above: Performed By: #### L IPDR, HFP, CHM7 #### [facility] (DEFAULT) [address] [place] [address] 17937 Partial Thromboplast Timeon 11-08-2024 aPTT Coag (Bld) [Time] 34.5 s Normal 24.1-36.2 [facility] Comment on above: Performed By: #### L 501.4021, L100.0100, L300.4310, L300.3900, L500.2500 ####[facility] [address] [place], [place], [id number] Platelet countOrdered By: Robby Maldonado on 11-08-2024 Platelets (Bld) [#/Vol] 194 10*3/uL 150-450 [facility] [facility] Potassium (Unsp spec) [Mass/ Vol]Ordered By: Phillip Maldonado on 11-08-2024 Potassium [Moles/Vol] 4.2 mmol/L 3.3-5.1 [facility] Potassium measurement (mass/ volume)Ordered By: Phillip Maldonado on 11-08-2024 Potassium (Unsp spec) [Mass/Vol] 4.2 mmol/L 3.3-5.1 [facility] Prothrombin Time w/INRon INR Coag (PPP) [Relative time] 1.5 {INR} Normal [facility] Comment on above: Performed By: #### L 501.4021, L100.0100, L300.4310, L300.3900, L500.2500 ####[facility] [address] [place], [address] PT Coag (PPP) [Time] 18.4 s High 11.7-14.9 [facility] Comment on above: Performed By: #### L 501.4021, L100.0100, L300.4310, L300.3900, L500.2500 ####[facility] [address] [place], [address] Prothrombin timeOrdered By: Phillip Maldonado on 11-08-2024 PT Coag (PPP) [Time] 18.4 s High 11.7-14.9 [facility] RBC Auto (Bld) [#/Vol]Ordere d By: Phillip Maldonado on 11-08-2024 RBC (Bld) [#/Vol] 5.35 10*6/uL 4.2-5.[address] [facility] STROKE Brain/Head without Co nton 11-08-2024 STROKE Brain/Head without Cont Normal [facility] STROKE CTA Head AND Neck W/C onon 11-08-2024 STROKE CTA Head AND Neck W/Con Normal [facility] Serum creatinine measurement (mass/volume)Ordered By: Phillip Maldondao on 11-08-2024 Creatinine [Mass/Vol] 0.82 mg/dL 0.70-1.20 [facility] Serum glucose measurement (m ass/volume)Ordered By: Phillip Maldonado on 11-08-2024 Glucose [Mass/Vol] 129 mg/dL High 70-[address] [facility] Serum or plasma calcium bessie urement (mass/volume)Ordered By: Phillip Maldonado on 11-08-2024 Calcium [Mass/Vol] 9.3 mg/dL 7.6-11.[address] [facility] Serum or plasma urea nitroge n measurement (mass/volume)Ordered By: Phillip Maldonado on 11-08-2024 Urea nitrogen [Mass/Vol] 13 mg/dL 4-19 [facility] Sodium levelOrdered By: Tawanda Maldonado on 11-08-2024 Sodium [Moles/Vol] 139 mmol/L 133-[address] [facility] Troponin T.cardiac High sens itivity method [Mass/Vol]Ordered By: Phillip Maldonado on 11-08-2024 Troponin T High Sensitivity 20 ng/L High <14 [facility] Troponin T.cardiac [Mass/vol ume] in Serum or Plasma by High sensitivity methodOrdered By: Phillip Maldonado on 11-08-2024 Troponin T.cardiac High sensitivity method [Mass/Vol] 20 ng/L High <14 [facility] URINALYSIS REFLEX TO CULTURE PERFORMABLEon 11-08-2024 Appearance (U) Clear Clear [facility] Bacteria LM Ql (Urine sed) TRACE Abnormal ABSENT [facility] Color (U) Yellow Yellow [facility] Epithelial cells.squamous LM Ql (Urine sed) 0-2/hpf 0-2/hpf, 3-5/hpf = 1+ [facility] Glucose Test strip (U) [Mass/Vol] >=1000 mg/dL Abnormal Negative [facility] Interpretation and review of laboratory results Abnormal [facility] Ketones (U) [Mass/Vol] Negative Negative [facility] Leukocyte esterase Test strip Ql (U) Negative Negative [facility] Nitrite Ql (U) Negative Negative [facility] pH (U) 5.5 [pH] 5.0 - 7.0 [facility] Protein (U) [Mass/Vol] Negative Negative [facility] RBC (U) [#/Vol] Negative Negative [facility] RBC LM.HPF (Urine sed) [#/Area] 0-2 [facility] Specific gravity (U) [Rel density] High 1.001 - 1.035 [facility] Urobilinogen (U) [Mass/Vol] 1.0 E.U./dL 0.2 E.U/dL, 1.0 E.U/dL [facility] WBC LM.HPF (Urine sed) [#/Area] 0 - 5 [facility] Appearance (U) Clear Normal Clear [facility] Comment on above: Order Comment: For i ndwelling catheters, specimen collection is acceptable on catheter day 1 and 2 only. ? Performed By: #### U [id number] #### [facility] (DEFAULT) [address] [place] [address] Bacteria TRACE Abnormal ABSENT [facility] Comment on above: Order Comment: For i ndwelling catheters, specimen collection is acceptable on catheter day 1 and 2 only. ? Performed By: #### U [id number] #### [facility] (DEFAULT) [address] [place] [address] Blood Urine Negative Normal Negative [facility] Comment on above: Order Comment: For i ndwelling catheters, specimen collection is acceptable on catheter day 1 and 2 only. ? Performed By: #### U [id number] #### [facility] (DEFAULT) [address] [place] [address] Color (U) Yellow Normal Yellow [facility] Comment on above: Order Comment: For i ndwelling catheters, specimen collection is acceptable on catheter day 1 and 2 only. ? Performed By: #### U [id number] #### [facility] (DEFAULT) [address] [place] [address] Glucose Ql (U) >=1000 mg/dL Abnormal Negative [facility] Comment on above: Order Comment: For i ndwelling catheters, specimen collection is acceptable on catheter day 1 and 2 only. ? Performed By: #### U [id number] #### [facility] (DEFAULT) [address] [place] [address] Ketones Ql (U) Negative Normal Negative [facility] Comment on above: Order Comment: For i ndwelling catheters, specimen collection is acceptable on catheter day 1 and 2 only. ? Performed By: #### U [id number] #### [facility] (DEFAULT) [address] [place] [address] Leukocyte esterase Test strip Ql (U) Negative Normal Negative [facility] Comment on above: Order Comment: For i ndwelling catheters, specimen collection is acceptable on catheter day 1 and 2 only. ? Performed By: #### U [id number] #### [facility] (DEFAULT) [address] [place] [address] Nitrites Urine Negative Normal Negative [facility] Comment on above: Order Comment: For i ndwelling catheters, specimen collection is acceptable on catheter day 1 and 2 only. ? Performed By: #### U [id number] #### [facility] (DEFAULT) [address] [place] [address] pH (U) 5.5 [pH] Normal 5.0-7.0 [facility] Comment on above: Order Comment: For i ndwelling catheters, specimen collection is acceptable on catheter day 1 and 2 only. ? Performed By: #### U [id number] #### [facility] (DEFAULT) [address] [place] [address] Protein Urine Negative Normal Negative [facility] Comment on above: Order Comment: For i ndwelling catheters, specimen collection is acceptable on catheter day 1 and 2 only. ? Performed By: #### U [id number] #### [facility] (DEFAULT) [address] [place] [address] RBC Urine 0-2 Normal 0-2 [facility] Comment on above: Order Comment: For i ndwelling catheters, specimen collection is acceptable on catheter day 1 and 2 only. ? Performed By: #### U [id number] #### [facility] (DEFAULT) [address] [address] Specific [place] Urine > High 1.001 -1.03 5 [facility] Comment on above: Order Comment: For i ndwelling catheters, specimen collection is acceptable on catheter day 1 and 2 only. ? Performed By: #### U [id number] #### [facility] (DEFAULT) [address] [address] Squamous/Epithelial Cells, Urine 0-2/hpf Normal 0-2/hpf, 3-5/hpf = 1+ [facility] Comment on above: Order Comment: For i ndwelling catheters, specimen collection is acceptable on catheter day 1 and 2 only. ? Performed By: #### U [id number] #### [facility] (DEFAULT) [address] [address] Urobilinogen Urine 1.0 E.U./dL Normal 0.2 E.U/dL, 1.0 E.U/dL [facility] Comment on above: Order Comment: For i ndwelling catheters, specimen collection is acceptable on catheter day 1 and 2 only. ? Performed By: #### U [id number] #### [facility] (DEFAULT) [address] [place] [address] WBC Urine 0 - 5 Normal 0 - 5 [facility] Comment on above: Order Comment: For i ndwelling catheters, specimen collection is acceptable on catheter day 1 and 2 only. ? Performed By: #### U [id number] #### [facility] (DEFAULT) [address] [address] URINE DRUG SCREEN 11-08 Amphetamine+Methamphetam ine Screen (U) [Mass/Vol] Not detected Cutoff: 500 ng/mL [facility] Barbiturates Ql (U) Not detected Cutoff: 200 ng/mL [facility] Benzodiazepines Ql (U) Not detected Cutof f: 200 ng/mL [facility] Buprenorphine Ql (U) Not detected Cutoff: 5 ng/mL [facility] Cannabinoids Screen Ql (U) Not detected Cutoff: 50 ng/mL [facility] Cocaine Ql (U) Not detected Cutoff: 150 ng/mL [facility] fentaNYL Ql (U) Not detected Cutoff: 1 ng/mL [facility] Interpretation and review of laboratory results Normal [facility] Methadone Ql (U) Not detected Cutoff: 300 ng/mL [facility] Opiates Ql (U) Not detected Cutoff: 300 ng/mL [facility] oxyCODONE Ql (U) Not detected Cutoff: 100 ng/mL [facility] For medical purposes only. Positive results are unconfirmed unless otherwise noted. [facility] Amphetamine/Methamphetam ine Not detected Normal Cutoff: 500 ng/mL [facility] Comment on above: Order Comment: For m edical purposes only. Positive results are unconfirmed unless otherwise noted. Performed By: #### L IPDR, HFP, CHM7 #### [facility] (DEFAULT) [address] [address] Barbiturates Not detected Normal Cutoff: 200 ng/mL [facility] Comment on above: Order Comment: For m edical purposes only. Positive results are unconfirmed unless otherwise noted. Performed By: #### L IPDR, HFP, CHM7 #### [facility] (DEFAULT) [address] [place] [address] Benzodiazepines Not detected Normal Cutoff: 200 ng/mL [facility] Comment on above: Order Comment: For m edical purposes only. Positive results are unconfirmed unless otherwise noted. Performed By: #### L IPDR, HFP, CHM7 #### [facility] (DEFAULT) [address] [place] [address] Buprenorphine Not detected Normal Cutoff: 5 ng/mL [facility] Comment on above: Order Comment: For edical purposes only. Positive results are unconfirmed unless otherwise noted. Performed By: #### L IPDR, HFP, CHM7 #### [facility] (DEFAULT) [address] [address] Cannabinoids Screen Ql (U) Not detected Normal Cutoff: 50 ng/mL [facility] Comment on above: Order Comment: For m edical purposes only. Positive results are unconfirmed unless otherwise noted. Performed By: #### L IPDR, HFP, CHM7 #### [facility] (DEFAULT) [address] [address] Cocaine Not detected Normal Cutoff: 150 ng/mL [facility] Comment on above: Order Comment: For edical purposes only. Positive results are unconfirmed unless otherwise noted. Performed By: #### L IPDR, HFP, CHM7 #### [facility] (DEFAULT) [address] [address] Fentanyl Not detected Normal Cutoff: 1 ng/mL [facility] Comment on above: Order Comment: For edical purposes only. Positive results are unconfirmed unless otherwise noted. Performed By: #### L IPDR, HFP, CHM7 #### [facility] (DEFAULT) [address] [address] Methadone Not detected Normal Cutoff: 300 ng/mL [facility] Comment on above: Order Comment: For m edical purposes only. Positive results are unconfirmed unless otherwise noted. Performed By: #### L IPDR, HFP, CHM7 #### [facility] (DEFAULT) [address] [address] Opiates Not detected Normal Cutoff: 300 ng/mL [facility] Comment on above: Order Comment: For edical purposes only. Positive results are unconfirmed unless otherwise noted. Performed By: #### L IPDR, HFP, CHM7 #### [facility] (DEFAULT) [address] [address] Oxycodone Not detected Normal Cutoff: 100 ng/mL [facility] Comment on above: Order Comment: For m edical purposes only. Positive results are unconfirmed unless otherwise noted. Performed By: #### L IPDR, HFP, CHM7 #### [facility] (DEFAULT) [address] [place] [address] White blood cell (WBC) count Ordered By: Phillip Maldonado on 11-08-2024 WBC (Bld) [#/Vol] 9.1 10*3/uL 4.4-11.[address] [facility] aPTT Coag (PPP) [Time]Ordere d By: Phillip Maldonado on 11-08-2024 aPTT Coag (Bld) [Time] 34.5 s 24.1-36.2 [facility] Plastic Surgery Visit Report on 09-30-2024 Plastic Surgery Visit Report Normal [facility] SCRN MAMM (CAD)W/STEPHANIE BILATo n 09-22-2024 SCRN MAMM (CAD)W/STEPHANIE BILAT Normal [facility] International normalized rat io (INR) calculationOrdered By: Alejandro Rosales on 09-21-2024 INR Coag (Bld) [Relative time] 2.7 {INR} [facility] Plastic Surgery Visit Report on 09-21-2024 Plastic Surgery Visit Report Normal [facility] Prothrombin Time w/INRon INR Coag (PPP) [Relative time] 2.7 {INR} Normal [facility] Comment on above: Order Comment: Inter face Comments:Standing Order once per month and PRN for out of rangefollow upOrder Date: 09/21/24Order Info: [id number] - PTComments: Standing Order once per month and PRN for out of range follow up Performed By: #### L 300.6805 ####[facility] [address] [place], [place], [address] PT Coag (PPP) [Time] 29.2 s High 11.7-14.9 [facility] Comment on above: Order Comment: Inter face Comments:Standing Order once per month and PRN for out of rangefollow upOrder Date: 09/21/24Order Info: 6301-6 - PTComments: Standing Order once per month and PRN for out of range follow up Performed By: #### L 300.3900 ####[facility] [address] [place], [place], [address] Prothrombin timeOrdered By: Alejandro Rosales on 09-21-2024 PT Coag (PPP) [Time] 29.2 s High 11.7-14.9 [facility] International normalized rat io (INR) calculationOrdered By: Alejandro Rosales on 09-17-2024 INR Coag (Bld) [Relative time] 1.8 {INR} [facility] Prothrombin Time w/INRon INR Coag (PPP) [Relative time] 1.8 {INR} Normal [facility] Comment on above: Order Comment: Order Date: 09/17/24Order Info: 6301-6 - PT Performed By: #### L 300.3900 ####[facility] [address] [place], [address] PT Coag (PPP) [Time] 21.7 s High 11.7-14.9 [facility] Comment on above: Order Comment: Order Date: 09/17/24Order Info: 6301-6 - PT Performed By: #### L 300.3900 ####[facility] [address] [place], [place], [address] Prothrombin timeOrdered By: Alejandro Rosales on 09-17-2024 PT Coag (PPP) [Time] 21.7 s High 11.7-14.9 [facility] ANTINUCLEAR ANTIBODIES DIREC Ton 09-15-2024 CHAU,DIRECT Negative Normal Negative [facility] Comment on above: Order Comment: Order Date: 09/14/24Order Info: [id number] - CHAU Result Comment: Perf ormed at: [facility] [address] [id number] Director: Taiwo Quintero PhD, Phone: [phone] Performed By: #### L 3100.3450, L3100.5475, L505.7010 ####[facility] [address] [place], [address] Protein Electroph, Son 09-15 Albumin [Mass/Vol] 3.1 g/dL Normal 2.9-4.[address] [facility] Comment on above: Order Comment: Order Date: 09/14/24Order Info: 0060-1 - PROEL Performed By: #### L 3100.3450, L3100.5475, L505.7010 ####[facility] [address] [place], [address] Albumin/Globulin [Mass ratio] 0.8 {ratio} Normal 0.7-1.7 [facility] Comment on above: Order Comment: Order Date: 09/14/24Order Info: 0060-1 - PROEL Performed By: #### L 3100.3450, L3100.5475, L505.7010 ####[facility] [address] [place], [address] ALPHA-1 GLOBUL 0.3 g/dL Normal 0.0-0.4 [facility] Comment on above: Order Comment: Order Date: 09/14/24Order Info: 0060-1 - PROEL Performed By: #### L 3100.3450, L3100.5475, L505.7010 ####[facility] [address] [place], [address] ALPHA-2 GLOBUL 0.8 g/dL Normal 0.4-1.0 [facility] Comment on above: Order Comment: Order Date: 09/14/24Order Info: 0060-1 - PROEL Performed By: #### L 3100.3450, L3100.5475, L505.7010 ####[facility] [address] [place], [address] BETA GLOBULIN 1.2 g/dL Normal 0.7-1.3 [facility] Comment on above: Order Comment: Order Date: 09/14/24Order Info: 0060-1 - PROEL Performed By: #### L 3100.3450, L3100.5475, L505.7010 ####[facility] [address] [place], [address] GAMMA GLOBULIN 1.4 g/dL Normal 0.4-1.8 [facility] Comment on above: Order Comment: Order Date: 09/14/24Order Info: 0060-1 - PROEL Performed By: #### L 3100.3450, L3100.5475, L505.7010 ####[facility] [address] [place], [address] Globulin (S) [Mass/Vol] 3.7 g/dL Normal 2.2-3.9 [facility] Comment on above: Order Comment: Order Date: 09/14/24Order Info: 0060-1 - PROEL Performed By: #### L 3100.3450, L3100.5475, L505.7010 ####[facility] [address] [place], [address] INTERPRETATION Comment Normal . [facility] Comment on above: Order Comment: Order Date: 09/14/24Order Info: 0060-1 - PROEL Result Comment: Prot ein electrophoresis scan will follow via computer,mail, or telecommunications specialist delivery. Performed By: #### L 3100.3450, L3100.5475, L505.7010 ####[facility] [address] [place], [address] M-SPIKE Not Observed Normal Not Observed [facility] Comment on above: Order Comment: Order Date: 09/14/24Order Info: 0060-1 - PROEL Performed By: #### L 3100.3450, L3100.5475, L505.7010 ####[facility] [address] [place], [address] NOTE: Comment Normal . [facility] Comment on above: Order Comment: Order Date: 09/14/24Order Info: 0060-1 - PROEL Result Comment: The SPE pattern appears unremarkable. Evidence ofmonoclonal protein is not apparent.Performed at: [facility] [address] [id number] Director: Taiwo Quintero PhD, Phone: [phone] Performed By: #### L 3100.3450, L3673.5052, L530.5585 ####[facility] [address] [place], [place], [address] Protein [Mass/Vol] 6.8 g/dL Normal 6.0-8.[address] [facility] Comment on above: Order Comment: Order Date: 09/14/24Order Info: 0060-1 - PROEL Performed By: #### L 3100.3450, L3076.4328, L575.7079 ####[facility] [address] [place], [place], [address] CHAU serumOrdered By: Alejandro varela on 09-14-2024 Anti-Nuclear Antibody Screen Negative Negative [facility] Comment on above: Performed at: [facility] [address] [id number] Director: Taiwo Quintero PhD, Phone: [phone] Absolute lymphocyte countOrd ered By: Alejandro Rosales on 09-14-2024 Lymphocytes Auto (Unsp spec) [#/Vol] 1.72 10*3/uL 0.83-4.51 [facility] Absolute neutrophil countOrd ered By: Alejandro Rosales on 09-14-2024 Neutrophils (Bld) [#/Vol] 5.2 10*3/uL 2.0-7.7 [facility] Addendum DocumentOrdered By: Alejandro Rosales on 09-14-2024 Protein Electrophoresis Note Comment . [facility] Comment on above: The SPE pattern appe ars unremarkable. Evidence ofmonoclonal protein is not apparent.Performed at: [facility] [place], [place] [id number] Director: Taiwo Quintero PhD, Phone: [phone] Albumin Elph [Mass/Vol]Order ed By: Alejandro Rosales on 09-14-2024 Albumin [Mass/Vol] 3.1 g/dL 2.9-4.[address] [facility] Albumin to globulin ratioOrd ered By: Alejandro Rosales on 09-14-2024 Albumin/Globulin [Mass ratio] 0.7 {ratio} Low 0.9-2.4 [facility] Albumin/Globulin Elph [Mass ratio]Ordered By: Alejandro Rosales on 09-14-2024 Albumin/Globulin (PEP) 0.8 0.7-1.7 [facility] Iiaer-5-aviddrrj measurement by protein electrophoresisOrdered By: Alejandro Rosales on 09-14-2024 Xtpbn-3-Qjypocnsk 0.3 g/dL 0.0-0.4 [facility] Nqbgp-6-xtncsxjm measurement by protein electrophoresisOrdered By: Alejandro Rosales on 09-14-2024 Xaard-0-Ryxhebtyg 0.8 g/dL 0.4-1.0 [facility] Automated lymphocyte count a s percentage of total leukocytesOrdered By: Alejandro Rosales on 09-14-2024 Lymphocytes/100 WBC Auto (Unsp spec) 22.3 % 19-41 [facility] Basophil percentageOrdered B y: Alejandro Rosales on 09-14-2024 Basophils/100 WBC (Bld) 0.5 % 0-1 [facility] Beta globulin Elph [Mass/Vol ]Ordered By: Alejandro Rosales on 09-14-2024 Beta Globulins 1.2 g/dL 0.7-1.3 [facility] Bilirubin, totalOrdered By: Alejandro Rosales on 09-14-2024 Bilirubin [Mass/Vol] 0.80 mg/dL 0.20-1.00 [facility] Comment on above: For patients on eltr ombopag therapy, use of Dimension Mcneal TBIL is not recommended. Blood urea nitrogen (BUN)/cr eatinine ratioOrdered By: Alejandro Rosales on 09-14-2024 Urea nitrogen/Creatinine [Mass ratio] 11.3 mg/mg 10-20 [facility] C-reactive protein measureme nt by high sensitivity methodOrdered By: Alejandro Rosales on 09-14-2024 C-Reactive Protein Extended Range 30.60 mg/L High 0.0-3.0 [facility] Comment on above: C-Reactive Protein ( CRP) provides useful information for thediagnosis, therapy and monitoring of inflammatory processesand associated diseases. For the evaluation of Relative Riskfor Cardiovascular Disease, a High Sensitivity CRP (HSCRP)should be ordered. C-reactive protein measurement by high sensitivity method 30.60 mg/L High 0.0-3.0 [facility] Comment on above: C-Reactive Protein ( CRP) provides useful information for thediagnosis, therapy and monitoring of inflammatory processesand associated diseases. For the evaluation of Relative Riskfor Cardiovascular Disease, a High Sensitivity CRP (HSCRP)should be ordered. CBC W/Diff, Automatedon 09-04 Absolute Lymph 1.72 X10 3/uL Normal 0.83-4.51 [facility] Comment on above: Order Comment: Order Date: 09/14/24Order Info: [id number] - CBCDOrder Info: [id number] - SED Performed By: #### L 100.0100, L501.1400, L500.4050, L501.6710, L101.9900 ####[facility] [address] [place], [address] Absolute Neut 5.2 X10 3/uL Normal 2.0-7.7 [facility] Comment on above: Order Comment: Order Date: 09/14/24Order Info: [id number] - CBCDOrder Info: [id number] - SED Performed By: #### L 100.0100, L501.1400, L500.4050, L501.6710, L101.9900 ####[facility] [address] [place], [address] Basophils/100 WBC (Bld) 0.5 % Normal 0-1 [facility] Comment on above: Order Comment: Order Date: 09/14/24Order Info: [id number] - CBCDOrder Info: [id number] - SED Performed By: #### L 100.0100, L501.1400, L500.4050, L501.6710, L101.9900 ####[facility] [address] [place], [address] Eosinophils/100 WBC (Bld) 1.3 % Normal 0-5 [facility] Comment on above: Order Comment: Order Date: 09/14/24Order Info: [id number] - CBCDOrder Info: [id number] - SED Performed By: #### L 100.0100, L501.1400, L500.4050, L501.6710, L101.9900 ####[facility] [address] [place], [address] Erythrocyte distribution width (RBC) [Ratio] 15.0 % High 11.6-14.6 [facility] Comment on above: Order Comment: Order Date: 09/14/24Order Info: [id number] - CBCDOrder Info: [id number] - SED Performed By: #### L 100.0100, L501.1400, L500.4050, L501.6710, L101.9900 ####[facility] [address] [place], [address] Hematocrit (Bld) [Volume fraction] 46.8 % Normal 37-47 [facility] Comment on above: Order Comment: Order Date: 09/14/24Order Info: [id number] - CBCDOrder Info: [id number] - SED Performed By: #### L 100.0100, L501.1400, L500.4050, L501.6710, L101.9900 ####[facility] [address] [place], [address] Hemoglobin (Bld) [Mass/Vol] 15.1 g/dL High 12.0-15.0 [facility] Comment on above: Order Comment: Order Date: 09/14/24Order Info: [id number] - CBCDOrder Info: [id number] - SED Performed By: #### L 100.0100, L501.1400, L500.4050, L501.6710, L101.9900 ####[facility] [address] [place], [address] IG% 0.300 Normal 0.0-0.9 [facility] Comment on above: Order Comment: Order Date: 09/14/24Order Info: 183- - CBCDOrder Info: [id number] - SED Result Comment: IG% - Immature Granulocytes (promyelocytes, myelocytes andmetamyelocytes) > 1% indicates that a LEFT SHIFT is Present. Performed By: #### L 100.0100, L501.1400, L500.4050, L501.6710, L101.9900 ####[facility] [address] [place], [address] Lymphocytes/100 WBC (Bld) 22.3 % Normal 19-41 [facility] Comment on above: Order Comment: Order Date: 09/14/24Order Info: [id number] - CBCDOrder Info: [id number] - SED Performed By: #### L 100.0100, L501.1400, L500.4050, L501.6710, L101.9900 ####[facility] [address] [place], [address] MCH (RBC) [Entitic mass] 28.0 pg Normal 27.0-32.0 [facility] Comment on above: Order Comment: Order Date: 09/14/24Order Info: [id number] - CBCDOrder Info: [id number] - SED Performed By: #### L 100.0100, L501.1400, L500.4050, L501.6710, L101.9900 ####[facility] [address] [place], [address] MCHC (RBC) [Mass/Vol] 32.3 g/dL Normal 32-36 [facility] Comment on above: Order Comment: Order Date: 09/14/24Order Info: [id number] - CBCDOrder Info: [id number] - SED Performed By: #### L 100.0100, L501.1400, L500.4050, L501.6710, L101.9900 ####[facility] [address] [place], [address] MCV (RBC) [Entitic vol] 86.7 fL Normal 81-99 [facility] Comment on above: Order Comment: Order Date: 09/14/24Order Info: [id number] - CBCDOrder Info: [id number] - SED Performed By: #### L 100.0100, L501.1400, L500.4050, L501.6710, L101.9900 ####[facility] [address] [place], [address] Monocytes/100 WBC (Bld) 8.2 % Normal 0-10 [facility] Comment on above: Order Comment: Order Date: 09/14/24Order Info: [id number] - CBCDOrder Info: [id number] - SED Performed By: #### L 100.0100, L501.1400, L500.4050, L501.6710, L101.9900 ####[facility] [address] [place], [address] Neutrophils/100 WBC (Bld) 67.4 % Normal 47-70 [facility] Comment on above: Order Comment: Order Date: 09/14/24Order Info: [id number] - CBCDOrder Info: [id number] - SED Performed By: #### L 100.0100, L501.1400, L500.4050, L501.6710, L101.9900 ####[facility] [address] [place], [address] Nucleated RBC (Bld) [#/Vol] 0 10*3/uL Normal 0-5 [facility] Comment on above: Order Comment: Order Date: 09/14/24Order Info: [id number] - CBCDOrder Info: [id number] - SED Performed By: #### L 100.0100, L501.1400, L500.4050, L501.6710, L101.9900 ####[facility] [address] [place], [address] Platelet mean volume (Bld) [Entitic vol] 10.5 fL Normal 6.2-12.0 [facility] Comment on above: Order Comment: Order Date: 09/14/24Order Info: 018- - CBCDOrder Info: [id number] - SED Performed By: #### L 100.0100, L501.1400, L500.4050, L501.6710, L101.9900 ####[facility] [address] [place], [address] Platelets (Bld) [#/Vol] 201 10*3/uL Normal 150-450 [facility] Comment on above: Order Comment: Order Date: 09/14/24Order Info: 018- - CBCDOrder Info: [id number] - SED Performed By: #### L 100.0100, L501.1400, L500.4050, L501.6710, L101.9900 ####[facility] [address] [place], [address] RBC (Bld) [#/Vol] 5.40 10*6/uL Normal 4.2-5.[address] [facility] Comment on above: Order Comment: Order Date: 09/14/24Order Info: 018- - CBCDOrder Info: [id number] - SED Performed By: #### L 100.0100, L501.1400, L500.4050, L501.6710, L101.9900 ####[facility] [address] [place], [address] RDW SD 47.6 fl High 35.1-43.9 [facility] Comment on above: Order Comment: Order Date: 09/14/24Order Info: 018- - CBCDOrder Info: [id number] - SED Performed By: #### L 100.0100, L501.1400, L500.4050, L501.6710, L101.9900 ####[facility] [address] [place], [address] WBC (Bld) [#/Vol] 7.7 10*3/uL Normal 4.4-11.[address] [facility] Comment on above: Order Comment: Order Date: 09/14/24Order Info: [id number] - CBCDOrder Info: [id number] - SED Performed By: #### L 100.0100, L501.1400, L500.4050, L501.6710, L101.9900 ####[facility] [address] [place], [address] CRPon 09-14-2024 C-REACTIVE PROT 30.60 mg/L High 0.0-3.0 [facility] Comment on above: Order Comment: Order Date: 09/14/24Order Info: [id number] - CMPOrder Info: [id number] - URICOrder Info: [id number] - CRPOrder Info: [id number] - RA Result Comment: C-Re active Protein (CRP) provides useful information for thediagnosis, therapy and monitoring of inflammatory processesand associated diseases. For the evaluation of Relative Riskfor Cardiovascular Disease, a High Sensitivity CRP (HSCRP)should be ordered. Performed By: #### L 100.0100, L501.1400, L500.4050, L501.6710, L101.9900 ####[facility] [address] [place], [address] Carbon dioxide measurementOr dered By: Alejandro Rosales on 09-14-2024 CO2 [Moles/Vol] 27.0 mmol/L 21.0-32.0 [facility] Chloride measurementOrdered By: Alejandro Rosales on 09-14-2024 Chloride [Moles/Vol] 105 mmol/L 98-107 [facility] Comprehensive Metabolic Prof ilon 09-14-2024 Albumin [Mass/Vol] 3.2 g/dL Normal 3.2-5.[address] [facility] Comment on above: Order Comment: Order Date: 09/14/24Order Info: 86- - CMPOrder Info: [id number] - URICOrder Info: [id number] - CRPOrder Info: [id number] - RA Performed By: #### L 100.0100, L501.1400, L500.4050, L501.6710, L101.9900 ####[facility] [address] [place], [address] Albumin/Globulin [Mass ratio] 0.7 {ratio} Low 0.9-2.4 [facility] Comment on above: Order Comment: Order Date: 09/14/24Order Info: 785- - CMPOrder Info: [id number] - URICOrder Info: [id number] - CRPOrder Info: [id number] - RA Performed By: #### L 100.0100, L501.1400, L500.4050, L501.6710, L101.9900 ####[facility] [address] [place], [address] ALK P 104 U/L Normal 45-117 [facility] Comment on above: Order Comment: Order Date: 09/14/24Order Info: 785- - CMPOrder Info: [id number] - URICOrder Info: [id number] - CRPOrder Info: [id number] - RA Performed By: #### L 100.0100, L501.1400, L500.4050, L501.6710, L101.9900 ####[facility] [address] [place], [address] ALT [Catalytic activity/Vol] 15 U/L Normal 13-56 [facility] Comment on above: Order Comment: Order Date: 09/14/24Order Info: 86-1 - CMPOrder Info: [id number] - URICOrder Info: [id number] - CRPOrder Info: [id number] - RA Performed By: #### L 100.0100, L501.1400, L500.4050, L501.6710, L101.9900 ####[facility] [address] [place], [address] AST [Catalytic activity/Vol] 14 U/L Low 15-37 [facility] Comment on above: Order Comment: Order Date: 09/14/24Order Info: 86-1 - CMPOrder Info: [id number] - URICOrder Info: [id number] - CRPOrder Info: [id number] - RA Performed By: #### L 100.0100, L501.1400, L500.4050, L501.6710, L101.9900 ####[facility] [address] [place], [place], [address] Bilirubin [Mass/Vol] 0.80 mg/dL Normal 0.20-1.00 [facility] Comment on above: Order Comment: Order Date: 09/14/24Order Info: 86-1 - CMPOrder Info: [id number] - URICOrder Info: [id number] - CRPOrder Info: [id number] - RA Result Comment: For patients on eltrombopag therapy, use of Dimension Mcneal TBIL is not recommended. Performed By: #### L 100.0100, L501.1400, L500.4050, L501.6710, L101.9900 ####[facility] [address] [place], [place], [id number] BUN/CRE 11.3 RATIO Normal 10-20 [facility] Comment on above: Order Comment: Order Date: 09/14/24Order Info: 86-1 - CMPOrder Info: [id number] - URICOrder Info: [id number] - CRPOrder Info: [id number] - RA Performed By: #### L 100.0100, L501.1400, L500.4050, L501.6710, L101.9900 ####[facility] [address] [place], [place], [id number] CA,Total 9.3 mg/dL Normal 8.5-10.1 [facility] Comment on above: Order Comment: Order Date: 09/14/24Order Info: 86-1 - CMPOrder Info: [id number] - URICOrder Info: [id number] - CRPOrder Info: [id number] - RA Performed By: #### L 100.0100, L501.1400, L500.4050, L501.6710, L101.9900 ####[facility] [address] [place], [address] Chloride [Moles/Vol] 105 mmol/L Normal 98-107 [facility] Comment on above: Order Comment: Order Date: 09/14/24Order Info: [id number] - CMPOrder Info: 4 - URICOrder Info: [id number] - CRPOrder Info: [id number] - RA Performed By: #### L 100.0100, L501.1400, L500.4050, L501.6710, L101.9900 ####[facility] [address] [place], [address] CO2 [Moles/Vol] 27.0 mmol/L Normal 21.0-32.0 [facility] Comment on above: Order Comment: Order Date: 09/14/24Order Info: 785-1 - CMPOrder Info: [id number] - URICOrder Info: [id number] - CRPOrder Info: [id number] - RA Performed By: #### L 100.0100, L501.1400, L500.4050, L501.6710, L101.9900 ####[facility] [address] [place], [address] Creatinine [Mass/Vol] 0.97 mg/dL Normal 0.55-1.02 [facility] Comment on above: Order Comment: Order Date: 09/14/24Order Info: 86-1 - CMPOrder Info: [id number] - URICOrder Info: [id number] - CRPOrder Info: [id number] - RA Result Comment: The validity of the calculated GFR GFRAA in patients over70 years has not been determined. Clinical correlation isessential. Performed By: #### L 100.0100, L501.1400, L500.4050, L501.6710, L101.9900 ####[facility] [address] [place], [address] EST GFR - AA 72 mL/min Normal >60 [facility] Comment on above: Order Comment: Order Date: 09/14/24Order Info: 86-1 - CMPOrder Info: 4-1 - URICOrder Info: [id number] - CRPOrder Info: [id number] - RA Result Comment: Afri can Malagasy GFR Calc Performed By: #### L 100.0100, L501.1400, L500.4050, L501.6710, L101.9900 ####[facility] [address] [place], [address] GAP 6 Normal 5-15 [facility] Comment on above: Order Comment: Order Date: 09/14/24Order Info: 785-1 - CMPOrder Info: [id number] - URICOrder Info: [id number] - CRPOrder Info: [id number] - RA Performed By: #### L 100.0100, L501.1400, L500.4050, L501.6710, L101.9900 ####[facility] [address] [place], [address] GFR/1.73 sq M.predicted among non-blacks MDRD (S/P/Bld) [Vol rate/Area] 60 mL/min/{1.73_m2} Normal >60 [facility] Comment on above: Order Comment: Order Date: 09/14/24Order Info: 785-1 - CMPOrder Info: 4-1 - URICOrder Info: [id number] - CRPOrder Info: [id number] - RA Result Comment: Non- GFR Calc Performed By: #### L 100.0100, L501.1400, L500.4050, L501.6710, L101.9900 ####[facility] [address] [place], [address] Globulin (S) [Mass/Vol] 4.4 g/dL High 2.2-4.2 [facility] Comment on above: Order Comment: Order Date: 09/14/24Order Info: [id number] - CMPOrder Info: [id number] - URICOrder Info: [id number] - CRPOrder Info: [id number] - RA Performed By: #### L 100.0100, L501.1400, L500.4050, L501.6710, L101.9900 ####[facility] [address] [place], [address] Glucose [Mass/Vol] 132 mg/dL High 74-[address] [facility] Comment on above: Order Comment: Order Date: 09/14/24Order Info: 86-1 - CMPOrder Info: 1 - URICOrder Info: [id number] - CRPOrder Info: [id number] - RA Result Comment: Fast ing Glucose result greater than or equal to 126 mg/dLsuggests DIABETES MELLITUS per A.D.A. criteria. Performed By: #### L 100.0100, L501.1400, L500.4050, L501.6710, L101.9900 ####[facility] [address] [place], [address] Potassium [Moles/Vol] 3.6 mmol/L Normal 3.5-5.1 [facility] Comment on above: Order Comment: Order Date: 09/14/24Order Info: 86-1 - CMPOrder Info: [id number] - URICOrder Info: [id number] - CRPOrder Info: [id number] - RA Performed By: #### L 100.0100, L501.1400, L500.4050, L501.6710, L101.9900 ####[facility] [address] [place], [address] Sodium [Moles/Vol] 138 mmol/L Normal 136-[address] [facility] Comment on above: Order Comment: Order Date: 09/14/24Order Info: [id number] - CMPOrder Info: 1 - URICOrder Info: [id number] - CRPOrder Info: [id number] - RA Performed By: #### L 100.0100, L501.1400, L500.4050, L501.6710, L101.9900 ####[facility] [address] [place], [address] T PROT 7.6 g/dL Normal 6.4-8.2 [facility] Comment on above: Order Comment: Order Date: 09/14/24Order Info: [id number] - CMPOrder Info: [id number] - URICOrder Info: [id number] - CRPOrder Info: [id number] - RA Performed By: #### L 100.0100, L501.1400, L500.4050, L501.6710, L101.9900 ####[facility] [address] [place], [address] Urea nitrogen [Mass/Vol] 11 mg/dL Normal 7-18 [facility] Comment on above: Order Comment: Order Date: 09/14/24Order Info: [id number] - CMPOrder Info: [id number] - URICOrder Info: [id number] - CRPOrder Info: [id number] - RA Performed By: #### L 100.0100, L501.1400, L500.4050, L501.6710, L101.9900 ####[facility] [address] [place], [address] Creatinine, Urine (random)on 09-14-2024 UR CREAT 74.70 mg/dL Normal NO RANGE EST. [facility] Comment on above: Order Comment: Order Date: 09/14/24Order Info: [id number] - CREATUOrder Info: [id number] - ALBU Performed By: #### L 502.0500, L501.1200 ####[facility] [address] [place], [address] Eosinophil percentageOrdered By: Alejandro Rosales on 09-14-2024 Eosinophils/100 WBC (Bld) 1.3 % 0-5 [facility] Erythrocyte Sed Rateon 02-11 -2025 SED RATE 46 mm/hr High 0-30 [facility] Comment on above: Order Comment: Order Date: 09/14/24Order Info: [id number] - CBCDOrder Info: [id number] - SED Performed By: #### L 100.0100, L501.1400, L500.4050, L501.6710, L101.9900 ####[facility] [address] [place], [address] Erythrocyte distribution wid th (RBC) [Ratio]Ordered By: Alejandro Rosales on 09-14-2024 Erythrocyte distribution width (RBC) [Entitic vol] 47.6 fL High 35.1-43.9 [facility] Erythrocyte distribution wid th ratioOrdered By: Alejandro Rosales on 09-14-2024 Erythrocyte distribution width (RBC) [Ratio] 15.0 % High 11.6-14.6 [facility] Erythrocyte distribution wid th standard deviationOrdered By: Alejandro Rosales on 09-14-2024 Erythrocyte distribution width (RBC) [Ratio] 47.6 fl High 35.1-43.9 [facility] Erythrocyte sedimentation ra teOrdered By: Alejandro Rosales on 09-14-2024 ESR (Bld) [Velocity] 46 mm/h High 0-30 [facility] Estimated glomerular filtrat ion rate (GFR) AmericanOrdered By: Alejandro Rosales on 09-14-2024 Estimated GFR (MDRD) Amer 72 mL/min >60 [facility] Comment on above: GFR Calc Finger(s) Min 2 Viewson 09-04 Finger(s) Min 2 Views Normal [facility] Gamma globulin measurement b y protein electrophoresisOrdered By: Alejandro Rosales on 09-14-2024 Gamma Globulins 1.4 g/dL 0.4-1.8 [facility] Globulin (S) [Mass/Vol]Order ed By: Alejandro Rosales on 09-14-2024 Globulin (PEP) 3.7 g/dL 2.2-3.9 [facility] Glomerular filtration rate ( GFR) estimationOrdered By: Alejandro Rosales on 09-14-2024 Estimated GFR (MDRD) Non-Af Amer 60 mL/min >60 [facility] Comment on above: Non- GFR Calc GFR/1.73 sq M.predicted among non-blacks MDRD (S/P/Bld) [Vol rate/Area] 60 mL/min/{1.73_m2} >60 [facility] Comment on above: Non- GFR Calc Glucose measurementOrdered B y: Alejandro Rosales on 09-14-2024 Glucose [Mass/Vol] 132 mg/dL High 74-[address] [facility] Comment on above: Fasting Glucose resu lt greater than or equal to 126 mg/dL suggests DIABETES MELLITUS per A.D.A. criteria. Hematocrit Auto (Bld) [Volum e fraction]Ordered By: Alejandro Rosales on 09-14-2024 Hematocrit (Bld) [Volume fraction] 46.8 % 37-47 [facility] Hemoglobin measurementOrdere d By: Alejandro Roasles on 09-14-2024 Hemoglobin (Bld) [Mass/Vol] 15.1 g/dL High 12.0-15.0 [facility] Immature granulocytes/100 WB C Auto (Bld)Ordered By: Alejandro Rosales on 09-14-2024 Immature granulocytes/100 WBC (Bld) 0.300 % 0.0-0.9 [facility] Comment on above: IG% - Immature Granu locytes (promyelocytes, myelocytes and metamyelocytes) > 1% indicates that a LEFT SHIFT is Present. Laboratory - Chemistry and C hemistry - challengeOrdered By: Alejandro Rosales on 09-14-2024 AST [Catalytic activity/Vol] 14 U/L Low 15-37 [facility] Lymphocytes Auto (Unsp spec) [#/Vol]Ordered By: Alejandro Rosales on 09-14-2024 Lymphocytes (Bld) [#/Vol] 1.72 10*3/uL 0.83-4.51 [facility] Lymphocytes/100 WBC Auto (Un sp spec)Ordered By: Alejandro Rosales on 09-14-2024 Lymphocytes/100 WBC (Bld) 22.3 % 19-41 [facility] MCV (mean corpuscular volume ) determinationOrdered By: Alejandro Rosales on 09-14-2024 MCV (RBC) [Entitic vol] 86.7 fL 81-99 [facility] Mean corpuscular hemoglobin (MCH) determinationOrdered By: Alejandro Rosales on 09-14-2024 MCH (RBC) [Entitic mass] 28.0 pg 27.0-32.0 [facility] Mean corpuscular hemoglobin concentration (MCHC) determinationOrdered By: Alejandro Rosales on 09-14-2024 MCHC (RBC) [Mass/Vol] 32.3 g/dL 32-36 [facility] Mean platelet volume determi nationOrdered By: Alejandro Rosales on 09-14-2024 Platelet mean volume (Bld) [Entitic vol] 10.5 fL 6.2-12.0 [facility] Microalbumin,Random Urineon 09-14-2024 MICROALBUMIN,UR 73.4 mg/L Normal NO RANGE EST. [facility] Comment on above: Order Comment: Order Date: 09/14/24Order Info: [id number] - CREATUOrder Info: [id number] - ALBU Performed By: #### L 502.0500, L501.1200 ####[facility] [address] [place], [address] Monocyte percentageOrdered B y: Alejandro Rosales on 09-14-2024 Monocytes/100 WBC (Bld) 8.2 % 0-10 [facility] Neutrophil percentageOrdered By: Alejandro Rosales on 09-14-2024 Neutrophils/100 WBC (Bld) 67.4 % 47-70 [facility] No Panel InformationOrdered By: Alejandro Rosales on 09-14-2024 Addendum Document Comment . [facility] Comment on above: The SPE pattern appe ars unremarkable. Evidence ofmonoclonal protein is not apparent.Performed at: - [address] [id number] Director: Taiwo Quintero PhD, Phone: [phone] Nucleated red blood cell per centageOrdered By: Alejandro Rosales on 09-14-2024 Nucleated RBC/100 WBC (Bld) [Ratio] 0 % 0-5 [facility] Platelet countOrdered By: Ike Rosales on 09-14-2024 Platelets (Bld) [#/Vol] 201 10*3/uL 150-450 [facility] Potassium measurementOrdered By: Alejandro Rosales on 09-14-2024 Potassium [Moles/Vol] 3.6 mmol/L 3.5-5.1 [facility] Protein Fractions Elph [Inte rp]Ordered By: Alejandro Rosales on 09-14-2024 Protein Electrophoresis Interpret Comment . [facility] Comment on above: Protein electrophore sis scan will follow via computer,mail, or telecommunications specialist delivery. Protein Fractions [Interp] Comment . [facility] Comment on above: Protein electrophore sis scan will follow via computer,mail, or telecommunications specialist delivery. Protein.monoclonal Elph [Mas s/Vol]Ordered By: Alejandro Rosales on 09-14-2024 Protein Electrophoresis M-Carlos Not Observed g/dL Not Observed [facility] RBC Auto (Bld) [#/Vol]Ordere d By: Alejandro Rosales on 09-14-2024 RBC (Bld) [#/Vol] 5.40 10*6/uL 4.2-5.[address] [facility] Random urine microalbumin me asurementOrdered By: Alejandro Rosales on 09-14-2024 Urine Random Microalbumin 73.4 mg/L NO RANGE EST. [facility] Rheumatoid Factoron 09-14-19 25 RHEUMATOID FAC < 10.0 Normal <15 [facility] Comment on above: Order Comment: Order Date: 09/14/24Order Info: [id number] - CMPOrder Info: [id number] - URICOrder Info: [id number] - CRPOrder Info: [id number] - RA Performed By: #### L 3100.3450, L3100.5475, L505.7010 ####[facility] [address] [place], [place], [id number] Rheumatoid factor measuremen tOrdered By: Alejandro Rosales on 09-14-2024 Rheumatoid Factor < 10.0 IU/mL <[address] [facility] Serum albumin to globulin ra paula by protein electrophoresisOrdered By: Alejandro Rosales on 09-14-2024 Albumin/Globulin Elph [Mass ratio] 0.8 0.7-1.7 [facility] Serum anion gap measurementO rdered By: Alejandro Rosales on 09-14-2024 Anion gap [Moles/Vol] 6 mmol/L 5-15 [facility] Serum globulin measurementOr dered By: Alejandro Rosales on 09-14-2024 Globulin (S) [Mass/Vol] 4.4 g/dL High 2.2-4.2 [facility] Serum globulin measurement ( mass/volume)Ordered By: Alejandro Rosales on 09-14-2024 Globulin (S) [Mass/Vol] 3.7 g/dL 2.2-3.9 [facility] Serum or plasma alanine herrera otransferase (ALT) measurementOrdered By: Alejandro Rosales on 09-14-2024 ALT [Catalytic activity/Vol] 15 U/L 13-56 [facility] Serum or plasma albumin bessie urement (mass/volume)Ordered By: Alejandro Rosales on 09-14-2024 Albumin [Mass/Vol] 3.2 g/dL 3.2-5.[address] [facility] Serum or plasma alkaline gloria sphatase measurementOrdered By: Alejandro Rosales on 09-14-2024 ALP [Catalytic activity/Vol] 104 U/L 45-117 [facility] Serum or plasma beta globuli n measurement by electrophoresis (mass/volume)Ordered By: Alejandro Rosales on 09-14-2024 Beta globulin Elph [Mass/Vol] 1.2 g/dL 0.7-1.3 [facility] Serum or plasma calcium bessie urement (mass/volume)Ordered By: Alejandro Rosales on 09-14-2024 Calcium [Mass/Vol] 9.3 mg/dL 8.5-10.[address] [facility] Serum or plasma creatinine m easurement (mass/volume)Ordered By: Alejandro Rosales on 09-14-2024 Creatinine [Mass/Vol] 0.97 mg/dL 0.55-1.02 [facility] Comment on above: The validity of the calculated GFR & GFRAA in patients over 70 years has not been determined. Clinical correlation is essential. Serum or plasma protein bessie urement (mass/volume)Ordered By: Alejandro Rosales on 09-14-2024 Protein [Mass/Vol] 6.8 g/dL 6.0-8.[address] [facility] Serum or plasma protein mono clonal measurement by electrophoresis (mass/volume)Ordered By: Alejandro Rosales on 09-14-2024 Protein.monoclonal Elph [Mass/Vol] Not Observed g/dL Not Observed [facility] Serum or plasma urea nitroge n measurement (mass/volume)Ordered By: Alejandro Rosales on 09-14-2024 Urea nitrogen [Mass/Vol] 11 mg/dL 7-18 [facility] Serum or plasma uric acid me asurement (mass/volume)Ordered By: Alejandro Rosales on 09-14-2024 Urate [Mass/Vol] 5.9 mg/dL 2.6-6.0 [facility] Comment on above: The drugs N-Acetylcy steine and Metamizole may falsely depress this assay. Sodium levelOrdered By: Alejandro Rosales on 09-14-2024 Sodium [Moles/Vol] 138 mmol/L 136-[address] [facility] Total proteinOrdered By: Kate Rosales on 09-14-2024 Protein [Mass/Vol] 7.6 g/dL 6.4-8.[address] [facility] Uric Acidon 09-14-2024 URIC 5.9 mg/dL Normal 2.6-6.0 [facility] Comment on above: Order Comment: Order Date: 09/14/24Order Info: [id number] - CMPOrder Info: [id number] - URICOrder Info: [id number] - CRPOrder Info: [id number] - RA Result Comment: The drugs N-Acetylcysteine and Metamizole may falselydepress this assay. Performed By: #### L 100.0100, L501.1400, L500.4050, L501.6710, L101.9900 ####[facility] [address] [place], [address] Urine creatinine measurement (mass/volume)Ordered By: Alejandro Rosales on 09-14-2024 Creatinine (U) [Mass/Vol] 74.70 mg/dL NO RANGE EST. [facility] [facility] White blood cell (WBC) count Ordered By: Alejandro Rosales on 09-14-2024 WBC (Bld) [#/Vol] 7.7 10*3/uL 4.4-11.[address] [facility] Basophil percentageOrdered B y: Dr. Robbins on 12-31-2022 Basophil percentage < 0.9 mg/dL 0.55-1.02 [facility] No Panel InformationOrdered By: Dr. Robbins on 12-31-2022 Bedside Estimated GFR (eGFR) > 60.0000 mL/min >60 [facility] Serum or plasma carcinoembry onic antigen measurement (mass/volume)Ordered By: Dr. Robbins on 12-17-2022 Carcinoembryonic Ag [Mass/Vol] 6.5 ng/mL 0.0-4.7 [facility] Comment on above: Nonsmokers <3.9 Smok ers <5.6[employer] Electrochemiluminescence Immunoassay(ECLIA)Values obtained with different assay methods or kitscannot be used interchangeably. Results cannot beinterpreted as absolute evidence of the presence orabsence of malignant disease.Performed at: [facility] [place] [address] [id number] Director: Taiwo Quintero PhD, Phone: [phone] Basophil percentageOrdered B y: Dr. Robbins on 12-04-2022 Basophil percentage < 0.9 mg/dL 0.55-1.02 [facility] No Panel InformationOrdered By: Dr. Robbins on 12-04-2022 Bedside Estimated GFR (eGFR) > 60.0000 mL/min >60 [facility] Serum or plasma carcinoembry onic antigen measurement (mass/volume)Ordered By: Dr. Robbins on 11-20-2022 Carcinoembryonic Ag [Mass/Vol] 8.0 ng/mL 0.0-4.7 [facility] Comment on above: Nonsmokers <3.9 Smok ers <5.6[employer] Electrochemiluminescence Immunoassay(ECLIA)Values obtained with different assay methods or kitscannot be used interchangeably. Results cannot beinterpreted as absolute evidence of the presence orabsence of malignant disease.Performed at: [facility] [id number] [place], [place] [id number] Director: Taiwo Quintero PhD, Phone: [phone] Basophil percentageOrdered B y: Dr. Robbins on 10-16-2022 Chloride [Moles/Vol] 98 mmol/L 98-107 [facility] Glucose [Mass/Vol] 192 mg/dL High 74-[address] [facility] Comment on above: Fasting Glucose resu lt greater than or equal to 126 mg/dL suggests DIABETES MELLITUS per A.D.A. criteria. Potassium [Moles/Vol] 3.6 mmol/L 3.5-5.1 [facility] Sodium [Moles/Vol] 137 mmol/L 136-[address] [facility] [employer] mix RAST testO rdered By: Marc Robbins on 10-16-2022 Anion gap [Moles/Vol] 7 mmol/L - [facility] Laboratory - Chemistry and C hemistry - challengeOrdered By: Dr. Robbins on 10-16-2022 CO2 [Moles/Vol] 32.0 mmol/L 21.0-32.0 [facility] Urea nitrogen/Creatinine [Mass ratio] 10.4 mg/mg 10-20 [facility] No Panel InformationOrdered By: Dr. Robbins on 10-16-2022 Estimated GFR (MDRD) Amer 74 mL/min >60 [facility] Comment on above: GFR Calc Estimated GFR (MDRD) Non-Af Amer 61 mL/min >60 [facility] Comment on above: Non- GFR Calc PotassiumOrdered By: Marc Robbins on 10-16-2022 Potassium [Mass/Vol] 192 mg/dL High 74-106 [facility] Comment on above: Fasting Glucose resu lt greater than or equal to 126 mg/dL suggests DIABETES MELLITUS per A.D.A. criteria. Potassium [Moles/Vol] 137 mmol/L 136-145 [facility] Potassium [Moles/Vol] 98 mmol/L 98-107 [facility] Serum or plasma calcium bessie urement (mass/volume)Ordered By: Dr. Robbins on 10-16-2022 Calcium [Mass/Vol] 9.3 mg/dL 8.5-10.[address] [facility] Serum or plasma carcinoembry onic antigen measurement (mass/volume)Ordered By: Dr. Robbins on 10-16-2022 Carcinoembryonic Ag [Mass/Vol] 8.1 ng/mL 0.0-4.7 [facility] Comment on above: Nonsmokers <3.9 Smok ers <5.6[facility] [employer] Electrochemiluminescence Immunoassay(ECLIA)Values obtained with different assay methods or kitscannot be used interchangeably. Results cannot beinterpreted as absolute evidence of the presence orabsence of malignant disease.Performed at: [facility] [id number] Director: Taiwo Quintero PhD, Phone: [phone] Serum or plasma creatinine m easurement (mass/volume)Ordered By: Dr. Robbins on 10-16-2022 Creatinine [Mass/Vol] 0.96 mg/dL 0.55-1.02 [facility] Comment on above: The validity of the calculated GFR & GFRAA in patients over 70 years has not been determined. Clinical correlation is essential. Serum or plasma urea nitroge n measurement (mass/volume)Ordered By: Dr. Robbins on 10-16-2022 Urea nitrogen [Mass/Vol] 10 mg/dL 7-18 [facility] Thin prep Papanicolaou smear with manual screeningOrdered By: Dr. Robbins on 10-16-2022 Thin prep Papanicolaou smear with manual screening 7 - [facility] Absolute lymphocyte countOrd ered By: Dr. Robbins on 10-07-2022 Lymphocytes Auto (Unsp spec) [#/Vol] 1.73 10*3/uL 0.83-4.51 [facility] Basophil percentageOrdered B y: Dr. Robbins on 10-07-2022 Creatinine [Mass/Vol] 1.1 mg/dL 0.55-1.02 [facility] Basophils/100 WBC (Bld) 0.4 % 0-1 [facility] Bilirubin [Mass/Vol] 0.50 mg/dL 0.20-1.00 [facility] Comment on above: For patients on eltr ombopag therapy, use of Dimension Mcneal TBIL is not recommended. Chloride [Moles/Vol] 96 mmol/L 98-107 [facility] Eosinophils/100 WBC (Bld) 0.9 % 0-5 [facility] Glucose [Mass/Vol] 221 mg/dL 74-[address] [facility] Comment on above: Glucose result great er than or equal to 200 mg/dLsuggests DIABETES MELLITUS per A.D.A. criteria. LDH [Catalytic activity/Vol] 275 U/L 84-246 [facility] Neutrophils (Bld) [#/Vol] 7.5 10*3/uL 2.0-7.7 [facility] Neutrophils/100 WBC (Bld) 73.4 % 47-70 [facility] Potassium [Moles/Vol] 2.9 mmol/L 3.5-5.1 [facility] Protein [Mass/Vol] 7.5 g/dL 6.4-8.[address] [facility] Sodium [Moles/Vol] 137 mmol/L 136-[address] [facility] WBC (Bld) [#/Vol] 10.3 10*3/uL 4.4-11.[address] [facility] Blood erythrocytes count (nu mber/volume)Ordered By: Dr. Robbins on 10-07-2022 RBC (Bld) [#/Vol] 5.29 10*6/uL 4.2-5.[address] [facility] Blood hemoglobin measurement (mass/volume)Ordered By: Dr. Robbins on 10-07-2022 Hemoglobin (Bld) [Mass/Vol] 14.7 g/dL 12.0-15.0 [facility] Blood lymphocytes/100 leukoc ytesOrdered By: Dr. Robbins on 10-07-2022 Lymphocytes/100 WBC (Bld) 16.9 % 19-41 [facility] Blood monocytes/100 leukocyt esOrdered By: Dr. Robbins on 10-07-2022 Monocytes/100 WBC (Bld) 8.0 % 0-10 [facility] Blood platelet mean volumeOr dered By: Dr. Robbins on 10-07-2022 Platelet mean volume (Bld) [Entitic vol] 10.8 fL 6.2-12.0 [facility] Determination of erythrocyte mean corpuscular volume (MCV)Ordered By: Dr. Robbins on 10-07-2022 MCV (RBC) [Entitic vol] 90.0 fL 81-99 [facility] Hematocrit Auto (Bld) [Volum e fraction]Ordered By: Dr. Robbins on 10-07-2022 Hematocrit (Bld) [Volume fraction] 47.6 % 37-47 [facility] INR in Blood by Coagulation assayOrdered By: Dr. Rosales on 10-07-2022 INR Coag (Bld) [Relative time] 2.8 {INR} [facility] Laboratory - Chemistry and C hemistry - challengeOrdered By: Dr. Robbins on 10-07-2022 GFR/1.73 sq M.predicted among non-blacks MDRD (S/P/Bld) [Vol rate/Area] 52.0000 mL/min/{1.73_m2} >60 [facility] ALP [Catalytic activity/Vol] 131 U/L 45-117 [facility] ALT [Catalytic activity/Vol] 21 U/L 13-56 [facility] CO2 [Moles/Vol] 31.0 mmol/L 21.0-32.0 [facility] Globulin (S) [Mass/Vol] 4.2 g/dL 2.2-4.2 [facility] Urea nitrogen/Creatinine [Mass ratio] 10.3 mg/mg 10-20 [facility] Laboratory - CoagulationOrde red By: Dr. Rosales on 10-07-2022 PT Coag (PPP) [Time] 29.0 s 11.7-14.9 [facility] Laboratory - Hematology and Cell countsOrdered By: Dr. Robbins on 10-07-2022 Erythrocyte distribution width (RBC) [Entitic vol] 48.9 fL 35.1-43.9 [facility] Erythrocyte distribution width (RBC) [Ratio] 14.7 % 11.6-14.6 [facility] Immature granulocytes/100 WBC (Bld) 0.400 % 0.0-0.9 [facility] Comment on above: IG% - Immature Granu locytes (promyelocytes, myelocytes and metamyelocytes) > 1% indicates that a LEFT SHIFT is Present. MCH (RBC) [Entitic mass] 27.8 pg 27.0-32.0 [facility] Nucleated RBC/100 WBC (Bld) [Ratio] 0 % 0-5 [facility] MCHC Auto (RBC) [Mass/Vol]Or dered By: Dr. Robbins on 10-07-2022 MCHC (RBC) [Mass/Vol] 30.9 g/dL 32-36 [facility] No Panel InformationOrdered By: Dr. Robbins on 10-07-2022 Estimated GFR (MDRD) Amer 59 mL/min >60 [facility] Comment on above: GFR Calc Estimated GFR (MDRD) Non-Af Amer 49 mL/min >60 [facility] Comment on above: Non- GFR Calc Platelets bldOrdered By: Dr. Robbins on 10-07-2022 Platelets (Bld) [#/Vol] 258 10*3/uL 150-450 [facility] Serum or plasma albumin bessie urement (mass/volume)Ordered By: Dr. Robbins on 10-07-2022 Albumin [Mass/Vol] 3.3 g/dL 3.2-5.[address] [facility] Serum or plasma albumin/glob ulin mass ratioOrdered By: Dr. Robbins on 10-07-2022 Albumin/Globulin [Mass ratio] 0.8 {ratio} 0.9-2.4 [facility] Serum or plasma calcium bessie urement (mass/volume)Ordered By: Dr. Robbins on 10-07-2022 Calcium [Mass/Vol] 9.3 mg/dL 8.5-10.[address] [facility] Serum or plasma carcinoembry onic antigen measurement (mass/volume)Ordered By: Dr. Robbins on 10-07-2022 Carcinoembryonic Ag [Mass/Vol] 6.4 ng/mL 0.0-4.7 [facility] Comment on above: Nonsmokers <3.9 Smok ers <5.6[facility] Electrochemiluminescence Immunoassay(ECLIA)Values obtained with different assay methods or kitscannot be used interchangeably. Results cannot beinterpreted as absolute evidence of the presence orabsence of malignant disease.Performed at: [address] [id number] Director: Taiwo Quintero PhD, Phone: [phone] Serum or plasma creatinine m easurement (mass/volume)Ordered By: Dr. Robbins on 10-07-2022 Creatinine [Mass/Vol] 1.17 mg/dL 0.55-1.02 [facility] Comment on above: The validity of the calculated GFR & GFRAA in patients over 70 years has not been determined. Clinical correlation is essential. Serum or plasma urea nitroge n measurement (mass/volume)Ordered By: Dr. Robbins on 10-07-2022 Urea nitrogen [Mass/Vol] 12 mg/dL 7-18 [facility] Thin prep Papanicolaou smear with manual screeningOrdered By: Dr. Robbins on 10-07-2022 Thin prep Papanicolaou smear with manual screening 24 U/L 15-37 [facility] Thin prep Papanicolaou smear with manual screening 10 5-15 [facility] Absolute lymphocyte countOrd ered By: Dr. Rosales on 07-04-2022 Lymphocytes Auto (Unsp spec) [#/Vol] 2.17 10*3/uL 0.83-4.51 [facility] Basophil percentageOrdered B y: Dr. Rosales on 07-04-2022 Basophils/100 WBC (Bld) 0.7 % 0-1 [facility] Bilirubin [Mass/Vol] 0.50 mg/dL 0.20-1.00 [facility] Comment on above: For patients on eltr ombopag therapy, use of Dimension Mcneal TBIL is not recommended. Chloride [Moles/Vol] 98 mmol/L 98-107 [facility] Eosinophils/100 WBC (Bld) 1.4 % 0-5 [facility] Glucose [Mass/Vol] 159 mg/dL 74-[address] [facility] Comment on above: Fasting Glucose resu lt greater than or equal to 126 mg/dL suggests DIABETES MELLITUS per A.D.A. criteria. Neutrophils (Bld) [#/Vol] 5.2 10*3/uL 2.0-7.7 [facility] Neutrophils/100 WBC (Bld) 62.3 % 47-70 [facility] Potassium [Moles/Vol] 4.5 mmol/L 3.5-5.1 [facility] Protein [Mass/Vol] 7.0 g/dL 6.4-8.[address] [facility] Sodium [Moles/Vol] 137 mmol/L 136-[address] [facility] WBC (Bld) [#/Vol] 8.4 10*3/uL 4.4-11.[address] [facility] Blood erythrocytes count (nu mber/volume)Ordered By: Dr. Rosales on 07-04-2022 RBC (Bld) [#/Vol] 5.40 10*6/uL 4.2-5.[address] [facility] Blood hemoglobin measurement (mass/volume)Ordered By: Dr. Rosales on 07-04-2022 Hemoglobin (Bld) [Mass/Vol] 14.3 g/dL 12.0-15.0 [facility] Blood lymphocytes/100 leukoc ytesOrdered By: Dr. Rosales on 07-04-2022 Lymphocytes/100 WBC (Bld) 25.9 % 19-41 [facility] Blood monocytes/100 leukocyt esOrdered By: Dr. Rosales on 07-04-2022 Monocytes/100 WBC (Bld) 9.3 % 0-10 [facility] Blood platelet mean volumeOr dered By: Dr. Rosales on 07-04-2022 Platelet mean volume (Bld) [Entitic vol] 10.7 fL 6.2-12.0 [facility] Determination of erythrocyte mean corpuscular volume (MCV)Ordered By: Dr. Rosales on 07-04-2022 MCV (RBC) [Entitic vol] 89.3 fL 81-99 [facility] Hematocrit Auto (Bld) [Volum e fraction]Ordered By: Dr. Rosales on 07-04-2022 Hematocrit (Bld) [Volume fraction] 48.2 % 37-47 [facility] Laboratory - Chemistry and C hemistry - challengeOrdered By: Dr. Rosales on 07-04-2022 ALP [Catalytic activity/Vol] 135 U/L 45-117 [facility] ALT [Catalytic activity/Vol] 23 U/L 13-56 [facility] CO2 [Moles/Vol] 29.0 mmol/L 21.0-32.0 [facility] Globulin (S) [Mass/Vol] 3.5 g/dL 2.2-4.2 [facility] Magnesium [Mass/Vol] 2.1 mg/dL 1.6-2.6 [facility] Urea nitrogen/Creatinine [Mass ratio] 11.4 mg/mg 10-20 [facility] Laboratory - Hematology and Cell countsOrdered By: Dr. Rosales on 07-04-2022 Erythrocyte distribution width (RBC) [Entitic vol] 55.2 fL 35.1-43.9 [facility] Erythrocyte distribution width (RBC) [Ratio] 17.2 % 11.6-14.6 [facility] Immature granulocytes/100 WBC (Bld) 0.400 % 0.0-0.9 [facility] Comment on above: IG% - Immature Granu locytes (promyelocytes, myelocytes and metamyelocytes) > 1% indicates that a LEFT SHIFT is Present. MCH (RBC) [Entitic mass] 26.5 pg 27.0-32.0 [facility] Nucleated RBC/100 WBC (Bld) [Ratio] 0 % 0-5 [facility] MCHC Auto (RBC) [Mass/Vol]Or dered By: Dr. Rosales on 07-04-2022 MCHC (RBC) [Mass/Vol] 29.7 g/dL 32-36 [facility] No Panel InformationOrdered By: Dr. Rosales on 07-04-2022 Estimated GFR (MDRD) Amer 74 mL/min >60 [facility] Comment on above: GFR Calc Estimated GFR (MDRD) Non-Af Amer 61 mL/min >60 [facility] Comment on above: Non- GFR Calc Total Iron Binding Capacity 386 ug/dL 250-450 [facility] Platelets bldOrdered By: Dr. Rosales on 07-04-2022 Platelets (Bld) [#/Vol] 297 10*3/uL 150-450 [facility] Serum or plasma albumin bessie urement (mass/volume)Ordered By: Dr. Rosales on 07-04-2022 Albumin [Mass/Vol] 3.5 g/dL 3.2-5.[address] [facility] Serum or plasma albumin/glob ulin mass ratioOrdered By: Dr. Rosales on 07-04-2022 Albumin/Globulin [Mass ratio] 1.0 {ratio} 0.9-2.4 [facility] Serum or plasma calcium bessie urement (mass/volume)Ordered By: Dr. Rosales on 07-04-2022 Calcium [Mass/Vol] 8.8 mg/dL 8.5-10.[address] [facility] Serum or plasma creatinine m easurement (mass/volume)Ordered By: Dr. Rosales on 07-04-2022 Creatinine [Mass/Vol] 0.96 mg/dL 0.55-1.02 [facility] Comment on above: The validity of the calculated GFR & GFRAA in patients over 70 years has not been determined. Clinical correlation is essential. Serum or plasma ferritin ajit surement (mass/volume)Ordered By: Dr. Rosales on 07-04-2022 Ferritin [Mass/Vol] 41 ng/mL 8-[address] [facility] Serum or plasma urea nitroge n measurement (mass/volume)Ordered By: Dr. Rosales on 07-04-2022 Urea nitrogen [Mass/Vol] 11 mg/dL 7-18 [facility] Thin prep Papanicolaou smear with manual screeningOrdered By: Dr. Rosales on 07-04-2022 Thin prep Papanicolaou smear with manual screening 16 U/L 15-37 [facility] Thin prep Papanicolaou smear with manual screening 10 5-15 [facility] Absolute lymphocyte counton 04-05-2022 Lymphocytes Auto (Unsp spec) [#/Vol] 1.28 10*3/uL 0.83-4.51 [facility] Work Phone: Basophil percentageon 2021 Basophil percentage < 0.9 mg/dL 0.55-1.02 [facility] Work Phone: Basophils/100 WBC (Bld) 0.6 % 0-1 [facility] Work Phone: Bilirubin [Mass/Vol] 0.40 mg/dL 0.20-1.00 [facility] Work Phone: Comment on above: For patients on eltr ombopag therapy, use of Dimension Mcneal TBIL is not recommended. Chloride [Moles/Vol] 99 mmol/L 98-107 [facility] Work Phone: Eosinophils/100 WBC (Bld) 1.0 % 0-5 [facility] Work Phone: Glucose [Mass/Vol] 245 mg/dL 74-[address] [facility] Work Phone: Comment on above: Glucose result great er than or equal to 200 mg/dLsuggests DIABETES MELLITUS per A.D.A. criteria. Neutrophils (Bld) [#/Vol] 6.5 10*3/uL 2.0-7.7 [facility] Work Phone: Neutrophils/100 WBC (Bld) 75.8 % 47-70 [facility] Work Phone: Potassium [Moles/Vol] 3.4 mmol/L 3.5-5.[address] [facility] Work Phone: Protein [Mass/Vol] 7.4 g/dL 6.4-8.[address] [facility] Work Phone: Sodium [Moles/Vol] 137 mmol/L 136-145 [facility] Work Phone: WBC (Bld) [#/Vol] 8.6 10*3/uL 4.4-11.[address] [facility] Work Phone: Blood erythrocytes count (nu mber/volume)on 04-05-2022 RBC (Bld) [#/Vol] 5.18 10*6/uL 4.2-5.[address] [facility] Work Phone: Blood hemoglobin measurement (mass/volume)on 04-05-2022 Hemoglobin (Bld) [Mass/Vol] 13.1 g/dL 12.0-15.0 [facility] Work Phone: Blood lymphocytes/100 leukoc yteson 04-05-2022 Lymphocytes/100 WBC (Bld) 14.8 % 19-41 [facility] Work Phone: Blood monocytes/100 leukocyt eson 04-05-2022 Monocytes/100 WBC (Bld) 7.5 % 0-10 [facility] Work Phone: Blood platelet mean volumeon 04-05-2022 Platelet mean volume (Bld) [Entitic vol] 9.6 fL 6.2-12.0 [facility] Work Phone: Determination of erythrocyte mean corpuscular volume (MCV)on 04-05-2022 MCV (RBC) [Entitic vol] 84.2 fL 81-99 [facility] Work Phone: Hematocrit Auto (Bld) [Volum e fraction]on 04-05-2022 Hematocrit (Bld) [Volume fraction] 43.6 % 37-47 [facility] Work Phone: Laboratory - Chemistry and C hemistry - challengeon 04-05-2022 ALP [Catalytic activity/Vol] 144 U/L 45-117 [facility] Work Phone: ALT [Catalytic activity/Vol] 17 U/L 13-56 [facility] Work Phone: CO2 [Moles/Vol] 29.0 mmol/L 21.0-32.0 [facility] Work Phone: Globulin (S) [Mass/Vol] 4.2 g/dL 2.2-4.2 [facility] Work Phone: Urea nitrogen/Creatinine [Mass ratio] 11.2 mg/mg 10-20 [facility] Work Phone: Laboratory - Hematology and Cell countson 04-05-2022 Erythrocyte distribution width (RBC) [Entitic vol] 56.0 fL 35.1-43.9 [facility] Work Phone: [phone] Erythrocyte distribution width (RBC) [Ratio] 18.3 % 11.6-14.6 [facility] Work Phone: Immature granulocytes/100 WBC (Bld) 0.300 % 0.0-0.9 [facility] Work Phone: Comment on above: IG% - Immature Granu locytes (promyelocytes, myelocytes and metamyelocytes) > 1% indicates that a LEFT SHIFT is Present. MCH (RBC) [Entitic mass] 25.3 pg 27.0-32.0 [facility] Work Phone: Nucleated RBC/100 WBC (Bld) [Ratio] 0 % 0-5 [facility] Work Phone: MCHC Auto (RBC) [Mass/Vol]on 04-05-2022 MCHC (RBC) [Mass/Vol] 30.0 g/dL 32-[address] [facility] Work Phone: No Panel Informationon 04-05 Bedside Estimated GFR (eGFR) > 60.0000 mL/min >60 [facility] Work Phone: Estimated GFR (MDRD) Amer 59 mL/min >60 [facility] Work Phone: Comment on above: GFR Calc Estimated GFR (MDRD) Non-Af Amer 49 mL/min >60 [facility] Work Phone: Comment on above: Non- GFR Calc Platelets bldon 04-05-2022 Platelets (Bld) [#/Vol] 290 10*3/uL 150-450 [facility] Work Phone: Serum or plasma albumin bessie urement (mass/volume)on 04-05-2022 Albumin [Mass/Vol] 3.2 g/dL 3.2-5.[address] [facility] Work Phone: Serum or plasma albumin/glob ulin mass ratioon 04-05-2022 Albumin/Globulin [Mass ratio] 0.8 {ratio} 0.9-2.4 [facility] Work Phone: Serum or plasma calcium bessie urement (mass/volume)on 04-05-2022 Calcium [Mass/Vol] 9.3 mg/dL 8.5-10.[address] [facility] Work Phone: Serum or plasma carcinoembry onic antigen measurement (mass/volume)on 04-05-2022 Carcinoembryonic Ag [Mass/Vol] 3.6 ng/mL 0.0-4.7 [facility] Work Phone: Comment on above: Nonsmokers <3.9 Smok ers <5.6[facility] Electrochemiluminescence Immunoassay(ECLIA)Values obtained with different assay methods or kitscannot be used interchangeably. Results cannot beinterpreted as absolute evidence of the presence orabsence of malignant disease.Performed at: [employer] [id number] Director: Taiwo Quintero PhD, Phone: [phone] Serum or plasma creatinine m easurement (mass/volume)on 04-05-2022 Creatinine [Mass/Vol] 1.16 mg/dL 0.55-1.02 [facility] Work Phone: Comment on above: The validity of the calculated GFR & GFRAA in patients over 70 years has not been determined. Clinical correlation is essential. Serum or plasma urea nitroge n measurement (mass/volume)on 04-05-2022 Urea nitrogen [Mass/Vol] 13 mg/dL 7-18 [facility] Work Phone: Thin prep Papanicolaou smear with manual screeningon 04-05-2022 Thin prep Papanicolaou smear with manual screening 13 U/L 15-37 [facility] Work Phone: Thin prep Papanicolaou smear with manual screening 9 5-15 [facility] Work Phone: Thin prep Papanicolaou smear with manual screening 199 U/L 84-246 [facility] Work Phone: Absolute lymphocyte counton 02-19-2022 Lymphocytes Auto (Unsp spec) [#/Vol] 1.46 10*3/uL 0.83-4.51 [facility] Work Phone: Basophil percentageon 2021 Basophils/100 WBC (Bld) 0.4 % 0-1 [facility] Work Phone: Bilirubin [Mass/Vol] 0.70 mg/dL 0.20-1.00 [facility] Work Phone: Comment on above: For patients on eltr ombopag therapy, use of Dimension Mcneal TBIL is not recommended. Chloride [Moles/Vol] 99 mmol/L 98-107 [facility] Work Phone: Eosinophils/100 WBC (Bld) 1.3 % 0-5 [facility] Work Phone: Glucose [Mass/Vol] 169 mg/dL 74-[address] [facility] Work Phone: Comment on above: Fasting Glucose resu lt greater than or equal to 126 mg/dL suggests DIABETES MELLITUS per A.D.A. criteria. Neutrophils (Bld) [#/Vol] 5.9 10*3/uL 2.0-7.7 [facility] Work Phone: Neutrophils/100 WBC (Bld) 72.1 % 47-70 [facility] Work Phone: Potassium [Moles/Vol] 3.1 mmol/L 3.5-5.1 [facility] Work Phone: Protein [Mass/Vol] 7.2 g/dL 6.4-8.2 [facility] Work Phone: Sodium [Moles/Vol] 137 mmol/L 136-145 [facility] Work Phone: WBC (Bld) [#/Vol] 8.2 10*3/uL 4.4-11.0 [facility] Work Phone: Blood erythrocytes count (nu mber/volume)on 02-19-2022 RBC (Bld) [#/Vol] 4.38 10*6/uL 4.2-5.4 [facility] Work Phone: Blood hemoglobin measurement (mass/volume)on 02-19-2022 Hemoglobin (Bld) [Mass/Vol] 10.6 g/dL 12.0-15.0 [facility] Work Phone: Blood lymphocytes/100 leukoc yteson 02-19-2022 Lymphocytes/100 WBC (Bld) 17.8 % 19-41 [facility] Work Phone: [phone] Blood manual differential co mment interpretation (narrative result)on 02-19-2022 Manual differential comment Herminio (Bld) [Interp] SCANNED [facility] Work Phone: Blood monocytes/100 leukocyt eson 02-19-2022 Monocytes/100 WBC (Bld) 7.9 % 0-10 [facility] Work Phone: Blood platelet mean volumeon 02-19-2022 Platelet mean volume (Bld) [Entitic vol] 10.1 fL 6.2-12.0 [facility] Work Phone: Determination of erythrocyte mean corpuscular volume (MCV)on 02-19-2022 MCV (RBC) [Entitic vol] 82.9 fL 81-99 [facility] Work Phone: Hematocrit Auto (Bld) [Volum e fraction]on 02-19-2022 Hematocrit (Bld) [Volume fraction] 36.3 % 37-47 [facility] Work Phone: Laboratory - Chemistry and C hemistry - challengeon 02-19-2022 ALP [Catalytic activity/Vol] 126 U/L 45-117 [facility] Work Phone: ALT [Catalytic activity/Vol] 13 U/L 13-56 [facility] Work Phone: CO2 [Moles/Vol] 31.0 mmol/L 21.0-32.0 [facility] Work Phone: Globulin (S) [Mass/Vol] 4.0 g/dL 2.2-4.2 [facility] Work Phone: Magnesium [Mass/Vol] 1.4 mg/dL 1.6-2.6 [facility] Work Phone: Urea nitrogen/Creatinine [Mass ratio] 12.4 mg/mg 10-20 [facility] Work Phone: Laboratory - Hematology and Cell countson 02-19-2022 Anisocytosis Ql (Bld) 2+ [facility]: Erythrocyte distribution width (RBC) [Entitic vol] 60.8 fL 35.1-43.9 [facility] Work Phone: Erythrocyte distribution width (RBC) [Ratio] 20.8 % 11.6-14.6 [facility] Work Phone: Immature granulocytes/100 WBC (Bld) 0.500 % 0.0-0.9 [facility] Work Phone: Comment on above: IG% - Immature Granu locytes (promyelocytes, myelocytes and metamyelocytes) > 1% indicates that a LEFT SHIFT is Present. MCH (RBC) [Entitic mass] 24.2 pg 27.0-32.0 [facility] Work Phone: Nucleated RBC/100 WBC (Bld) [Ratio] 0 % 0-5 [facility] Work Phone: MCHC Auto (RBC) [Mass/Vol]on 02-19-2022 MCHC (RBC) [Mass/Vol] 29.2 g/dL 32-36 [facility] Work Phone: No Panel Informationon 02-19 Estimated GFR (MDRD) Amer 61 mL/min >60 [facility] Work Phone: Comment on above: GFR Calc Estimated GFR (MDRD) Non-Af Amer 51 mL/min >60 [facility] Work Phone: Comment on above: Non- GFR Calc Platelets bldon 02-19-2022 Platelets (Bld) [#/Vol] 304 10*3/uL 150-450 [facility] Work Phone: Serum or plasma albumin bessie urement (mass/volume)on 02-19-2022 Albumin [Mass/Vol] 3.2 g/dL 3.2-5.[address] [facility] Work Phone: Serum or plasma albumin/glob ulin mass ratioon 02-19-2022 Albumin/Globulin [Mass ratio] 0.8 {ratio} 0.9-2.4 [facility] Work Phone: Serum or plasma calcium bessie urement (mass/volume)on 02-19-2022 Calcium [Mass/Vol] 9.1 mg/dL 8.5-10.[address] [facility] Work Phone: Serum or plasma creatinine m easurement (mass/volume)on 02-19-2022 Creatinine [Mass/Vol] 1.13 mg/dL 0.55-1.02 [facility] Work Phone: Comment on above: The validity of the calculated GFR & GFRAA in patients over 70 years has not been determined. Clinical correlation is essential. Serum or plasma ferritin ajit surement (mass/volume)on 02-19-2022 Ferritin [Mass/Vol] 29 ng/mL 8-[address] [facility] Work Phone: Serum or plasma urea nitroge n measurement (mass/volume)on 02-19-2022 Urea nitrogen [Mass/Vol] 14 mg/dL 7-18 [facility] Work Phone: Thin prep Papanicolaou smear with manual screeningon 02-19-2022 Thin prep Papanicolaou smear with manual screening 11 U/L 15-37 [facility] Work Phone: Thin prep Papanicolaou smear with manual screening 7 5-15 [facility] Work Phone: Whole blood hemoglobin A1c/t otal hemoglobin ratio (mass fraction)on 02-19-2022 HbA1c (Bld) [Mass fraction] 7.3 % 3.8-5.6 [facility] Work Phone: Comment on above: Normal < 5.7 % Predi abetic 5.7 - 6.4 % Diabetic >or= 6.5 % Please note range changes. Absolute lymphocyte counton 12-20-2021 Lymphocytes Auto (Unsp spec) [#/Vol] 1.52 10*3/uL 0.83-4.51 [facility] Work Phone: Basophil percentageon 2021 Basophils/100 WBC (Bld) 0.5 % 0-1 [facility] Work Phone: Eosinophils/100 WBC (Bld) 1.7 % 0-5 [facility] Work Phone: Neutrophils (Bld) [#/Vol] 6.4 10*3/uL 2.0-7.7 [facility] Work Phone: [phone] Neutrophils/100 WBC (Bld) 72.3 % 47-70 [facility] Work Phone: WBC (Bld) [#/Vol] 8.8 10*3/uL 4.4-11.[address] [facility] Work Phone: Bilirubin [Mass/Vol] 0.40 mg/dL 0.20-1.00 [facility] Work Phone: Comment on above: For patients on eltr ombopag therapy, use of Dimension Mcneal TBIL is not recommended. Chloride [Moles/Vol] 99 mmol/L 98-107 [facility] Work Phone: Glucose [Mass/Vol] 190 mg/dL 74-[address] [facility] Work Phone: Comment on above: Fasting Glucose resu lt greater than or equal to 126 mg/dL suggests DIABETES MELLITUS per A.D.A. criteria. Potassium [Moles/Vol] 3.4 mmol/L 3.5-5.1 [facility] Work Phone: Protein [Mass/Vol] 7.4 g/dL 6.4-8.[address] [facility] Work Phone: Sodium [Moles/Vol] 136 mmol/L 136-[address] [facility] Work Phone: Blood erythrocytes count (nu mber/volume)on 12-20-2021 RBC (Bld) [#/Vol] 4.40 10*6/uL 4.2-5.4 [facility]: Blood hemoglobin measurement (mass/volume)on 12-20-2021 Hemoglobin (Bld) [Mass/Vol] 10.5 g/dL 12.0-15.0 [facility] Work Phone: Blood lymphocytes/100 leukoc yteson 12-20-2021 Lymphocytes/100 WBC (Bld) 17.2 % 19-41 [facility] Work Phone: [phone] Blood monocytes/100 leukocyt eson 12-20-2021 Monocytes/100 WBC (Bld) 7.8 % 0-10 [facility] Work Phone: Blood platelet mean volumeon 12-20-2021 Platelet mean volume (Bld) [Entitic vol] 9.7 fL 6.2-12.0 [facility] Work Phone: [phone] Determination of erythrocyte mean corpuscular volume (MCV)on 12-20-2021 MCV (RBC) [Entitic vol] 81.4 fL 81-99 [facility] Work Phone: Hematocrit Auto (Bld) [Volum e fraction]on 12-20-2021 Hematocrit (Bld) [Volume fraction] 35.8 % 37-47 [facility] Work Phone: Laboratory - Chemistry and C hemistry - challengeon 12-20-2021 ALP [Catalytic activity/Vol] 112 U/L 45-117 [facility] Work Phone: ALT [Catalytic activity/Vol] 14 U/L 13-56 [facility] Work Phone: CO2 [Moles/Vol] 31.0 mmol/L 21.0-32.0 [facility] Work Phone: Free T4 [Mass/Vol] 1.84 ng/dL 0.76-1.[address] [facility] Work Phone: Globulin (S) [Mass/Vol] 4.3 g/dL 2.2-4.2 [facility] Work Phone: Magnesium [Mass/Vol] 1.8 mg/dL 1.6-2.6 [facility] Work Phone: Urea nitrogen/Creatinine [Mass ratio] 11.5 mg/mg 10-20 [facility] Work Phone: Laboratory - Hematology and Cell countson 12-20-2021 Erythrocyte distribution width (RBC) [Entitic vol] 49.4 fL 35.1-43.9 [facility] Work Phone: Erythrocyte distribution width (RBC) [Ratio] 16.6 % 11.6-14.6 [facility] Work Phone: [phone] Immature granulocytes/100 WBC (Bld) 0.500 % 0.0-0.9 [facility] Work Phone: Comment on above: IG% - Immature Granu locytes (promyelocytes, myelocytes and metamyelocytes) > 1% indicates that a LEFT SHIFT is Present. MCH (RBC) [Entitic mass] 23.9 pg 27.0-32.0 [facility] Work Phone: Nucleated RBC/100 WBC (Bld) [Ratio] 0 % 0-5 [facility] Work Phone: MCHC Auto (RBC) [Mass/Vol]on 12-20-2021 MCHC (RBC) [Mass/Vol] 29.3 g/dL 32-36 [facility] Work Phone: No Panel Informationon 12-20 Estimated GFR (MDRD) Amer 83 mL/min >60 [facility] Work Phone: Comment on above: GFR Calc Estimated GFR (MDRD) Non-Af Amer 69 mL/min >60 [facility] Work Phone: Comment on above: Non- GFR Calc Free Triiodothyronine (T3) pg/dL 2.2 pg/mL 2.18-3.98 [facility] Work Phone: Thyroid Stimulating Hormone (TSH) 2.18 uIU/mL 0.358-3.74 [facility] Work Phone: Platelets bldon 12-20-2021 Platelets (Bld) [#/Vol] 325 10*3/uL 150-450 [facility] Work Phone: Serum or plasma albumin bessie urement (mass/volume)on 12-20-2021 Albumin [Mass/Vol] 3.1 g/dL 3.2-5.[address] [facility] Work Phone: Serum or plasma albumin/glob ulin mass ratioon 12-20-2021 Albumin/Globulin [Mass ratio] 0.7 {ratio} 0.9-2.4 [facility] Work Phone: Serum or plasma calcium bessie urement (mass/volume)on 12-20-2021 Calcium [Mass/Vol] 8.8 mg/dL 8.5-10.[address] [facility] Work Phone: Serum or plasma creatinine m easurement (mass/volume)on 12-20-2021 Creatinine [Mass/Vol] 0.87 mg/dL 0.55-1.02 [facility] Work Phone: Comment on above: The validity of the calculated GFR & GFRAA in patients over 70 years has not been determined. Clinical correlation is essential. Serum or plasma urea nitroge n measurement (mass/volume)on 12-20-2021 Urea nitrogen [Mass/Vol] 10 mg/dL 7-18 [facility] Work Phone: Thin prep Papanicolaou smear with manual screeningon 12-20-2021 Thin prep Papanicolaou smear with manual screening 14 U/L 15-37 [facility] Work Phone: Thin prep Papanicolaou smear with manual screening 6 5-15 [facility] Work Phone: Basophil percentageon 2021 Bilirubin [Mass/Vol] 0.30 mg/dL 0.20-1.00 [facility] Work Phone: Comment on above: For patients on eltr ombopag therapy, use of Dimension Mcneal TBIL is not recommended. Chloride [Moles/Vol] 101 mmol/L 98-107 [facility] Work Phone: Glucose [Mass/Vol] 133 mg/dL 74-[address] [facility] Work Phone: Comment on above: Fasting Glucose resu lt greater than or equal to 126 mg/dL suggests DIABETES MELLITUS per A.D.A. criteria. Potassium [Moles/Vol] 3.4 mmol/L 3.5-5.1 [facility] Work Phone: Protein [Mass/Vol] 7.4 g/dL 6.4-8.[address] [facility] Work Phone: Sodium [Moles/Vol] 138 mmol/L 136-[address] [facility] Work Phone: WBC (Bld) [#/Vol] 7.3 10*3/uL 4.4-11.[address] [facility] Work Phone: Blood erythrocytes count (nu mber/volume)on 09-14-2021 RBC (Bld) [#/Vol] 4.61 10*6/uL 4.2-5.[address] [facility] Work Phone: Blood hemoglobin measurement (mass/volume)on 09-14-2021 Hemoglobin (Bld) [Mass/Vol] 10.7 g/dL 12.0-15.0 [facility] Work Phone: Blood platelet mean volumeon 09-14-2021 Platelet mean volume (Bld) [Entitic vol] 10.4 fL 6.2-12.0 [facility] Work Phone: Determination of erythrocyte mean corpuscular volume (MCV)on 09-14-2021 MCV (RBC) [Entitic vol] 79.6 fL 81-99 [facility] Work Phone: Hematocrit Auto (Bld) [Volum e fraction]on 09-14-2021 Hematocrit (Bld) [Volume fraction] 36.7 % 37-47 [facility] Work Phone: Laboratory - Chemistry and C hemistry - challengeon 09-14-2021 ALP [Catalytic activity/Vol] 94 U/L 45-117 [facility] Work Phone: ALT [Catalytic activity/Vol] 21 U/L 13-56 [facility] Work Phone: CO2 [Moles/Vol] 30.0 mmol/L 21.0-32.0 [facility] Work Phone: Free T4 [Mass/Vol] 1.55 ng/dL 0.76-1.[address] [facility] Work Phone: Globulin (S) [Mass/Vol] 4.3 g/dL 2.2-4.2 [facility] Work Phone: Magnesium [Mass/Vol] 2.0 mg/dL [facility] Work Phone: Comment on above: Performed at: [address] [id number] Director: Taiwo Quintero PhD, Phone: [phone] Urea nitrogen/Creatinine [Mass ratio] 12.5 mg/mg 10-20 [facility] Work Phone: Laboratory - Hematology and Cell countson 09-14-2021 Erythrocyte distribution width (RBC) [Entitic vol] 59.3 fL 35.1-43.9 [facility] Work Phone: Erythrocyte distribution width (RBC) [Ratio] 20.6 % 11.6-14.6 [facility] Work Phone: MCH (RBC) [Entitic mass] 23.2 pg 27.0-32.0 [facility] Work Phone: MCHC Auto (RBC) [Mass/Vol]on 09-14-2021 MCHC (RBC) [Mass/Vol] 29.2 g/dL 32-36 [facility] Work Phone: No Panel Informationon 09-14 Estimated GFR (MDRD) Amer 74 mL/min >60 [facility] Work Phone: Comment on above: GFR Calc Estimated GFR (MDRD) Non-Af Amer 61 mL/min >60 [facility] Work Phone: Comment on above: Non- GFR Calc Free Triiodothyronine (T3) pg/dL 2.7 pg/mL 2.18-3.98 [facility] Work Phone: Thyroid Stimulating Hormone (TSH) 5.20 uIU/mL 0.358-3.74 [facility] Work Phone: Platelets bldon 09-14-2021 Platelets (Bld) [#/Vol] 362 10*3/uL 150-450 [facility] Work Phone: Serum or plasma albumin bessie urement (mass/volume)on 09-14-2021 Albumin [Mass/Vol] 3.1 g/dL 3.2-5.[address] [facility] Work Phone: Serum or plasma albumin/glob ulin mass ratioon 09-14-2021 Albumin/Globulin [Mass ratio] 0.7 {ratio} 0.9-2.4 [facility] Work Phone: Serum or plasma calcium bessie urement (mass/volume)on 09-14-2021 Calcium [Mass/Vol] 9.3 mg/dL 8.5-10.[address] [facility] Work Phone: Serum or plasma carcinoembry onic antigen measurement (mass/volume)on 09-14-2021 Carcinoembryonic Ag [Mass/Vol] 3.9 ng/mL [facility] Work Phone: Comment on above: Nonsmokers <3.9 Smok ers <5.6[employer] Electrochemiluminescence Immunoassay(ECLIA)Values obtained with different assay methods or kitscannot be used interchangeably. Results cannot beinterpreted as absolute evidence of the presence orabsence of malignant disease.Performed at: [facility] [id number] Director: Taiwo Quintero PhD, Phone: [phone] Serum or plasma creatinine m easurement (mass/volume)on 09-14-2021 Creatinine [Mass/Vol] 0.96 mg/dL 0.55-1.02 [facility] Work Phone: Comment on above: The validity of the calculated GFR & GFRAA in patients over 70 years has not been determined. Clinical correlation is essential. Serum or plasma urea nitroge n measurement (mass/volume)on 09-14-2021 Urea nitrogen [Mass/Vol] 12 mg/dL 7-18 [facility] Work Phone: Thin prep Papanicolaou smear with manual screeningon 09-14-2021 Thin prep Papanicolaou smear with manual screening 19 U/L 15-37 [facility] Work Phone: Thin prep Papanicolaou smear with manual screening 7 5-15 [facility] Work Phone: INR in Blood by Coagulation assayon 09-04-2021 INR Coag (Bld) [Relative time] 1.9 {INR} [facility] Work Phone: Laboratory - Coagulationon 0 09-04-2021 PT Coag (PPP) [Time] 20.8 s 11.7-14.9 [facility] Work Phone: CNOVon 04-06-2021 CNOV Office Visit (UCWSTR ) ----- ELIZABETH HENLEY ([id number]) 1950 F Date Time Provider Department 04/06/21 11:00 AM JEFFREY ROBLES RUST During your visit today, we recorded the following information about you: Temperature Pulse Respiration Blood pressure 96.9 degrees 90/minute 18/minute 110/68 Weight 121.6 kg Jeffrey Robles APRN.SENIOR PROJECT ENGINEER 04/06/2021 1:08 PM Signed Subjective HPI Nontoxic-appearing [...] ankle pain - CHF (congestive heart failure) ([facility]) - Chronic airway obstruction (HCC) - CVA (cerebral vascular accident) ([facility]) - Depression - Hypertension - Obesity - PAD (peripheral artery disease) ([facility]) PAST SURGICAL HISTORY Procedure Laterality Date - APPENDECTOMY 1973 - CHOLECYSTECTOMY 1973 - HYSTERECTOMY 1973 ALLERGIES Codeine MEDICATIONS warfarin (COUMADIN) 5 mg tablet Take 5 mg by mouth daily as directed. Take as directed fluticasone (FLONASE ALLERGY RELIEF) 50 mcg/actuation nasal spray Use 1 [place] in each nostril once daily. mometasone-formoterol (DULERA) [...] - ICD (more content not included)... Normal [facility] No Panel Informationon 04-06 Radiology Study observation (narrative) [facility] XR ANKLE 3V AP/LAT/OBL LTon 04-06-2021 [...] relevant examinations available for comparison within the [facility]. RESULT: AP, lateral and oblique [...] of osteochondritis dissecans. MRI may be helpful. Media Production Manager: [facility] Transcribe Date/Time: Apr 06 2021 12:09P Dictated by : PETEY POWERS MD This examination was interpreted and the report reviewed and electronically signed by: PETEY POWERS MD on Apr 06 2021 12:19PM EST [id number] Normal [facility] XR Ankle - left AP and Later al and obliqueon 04-06-2021 IMPRESSION: Mild bimalleolar soft tissue swelling. Subchondral lucency within the talar dome along the lateral margin without osteochondral loose body. Findings could represent an area of osteochondritis dissecans. MRI may be helpful. Media Production Manager: [facility] Transcribe Date/Time: Apr 06 2021 12:09P Dictated by : PETEY POWERS MD This examination was interpreted and the report reviewed and electronically signed by: PETEY POWERS MD on Apr 06 2021 12:19PM EST DIVISION OF RADIOLOGY * * *Final [...] relevant examinations available for comparison within the [facility]. RESULT: AP, lateral and oblique [...] plantar fascial insertions. DIVISION OF RADIOLOGY Provider, Tiara Olivares - 04/06/2021 * * *Final Report* * [...] relevant examinations available for comparison within the [facility]. RESULT: AP, lateral and oblique [...] of osteochondritis dissecans. MRI may be helpful. Media Production Manager: [facility] Transcribe Date/Time: Apr 06 2021 12:09P Dictated by : PETEY POWERS MD This examination was interpreted and the report reviewed and electronically signed by: PETEY POWERS MD on Apr 06 2021 12:19PM [facility] XR FOOT 3V AP/LAT/OBL LTon 0 04-06-2021 [...] relevant examinations available for comparison within the [facility]. RESULT: AP, lateral and oblique radiographs of the left foot demonstrate mild forefoot soft tissue swelling. Mild degenerative change of the IP joints noted. Joint spaces are preserved and there are no erosive changes. No acute bony process. IMPRESSION: Mild forefoot soft tissue swelling. No acute bony process. Media Production Manager: MORIS Transcribe Date/Time: Apr 06 2021 12:19P Dictated by : PETEY POWERS MD This examination was interpreted and the report reviewed and electronically signed by: PETEY POWERS MD on Apr 06 2021 12:20PM EST [id number] Normal [facility] XR FOOT MINIMUM 3 VIEWS LEFT on [...] 04/06/2021 5:05:18 PM Ordering Provider: JN MONET [facility] ([place]) XR Foot - left AP and Latera l and obliqueon 04-06-2021 IMPRESSION: Mild forefoot soft tissue swelling. No acute bony process. Media Production Manager: [facility] Transcribe Date/Time: Apr 06 2021 12:19P Dictated by : PETEY POWERS MD This examination was interpreted and the report reviewed and electronically signed by: PETEY POWERS MD on Apr 06 2021 12:20PM [facility] DIVISION OF RADIOLOGY * * *Final [...] relevant examinations available for comparison within the [facility]. RESULT: AP, lateral and oblique radiographs of the left foot demonstrate mild forefoot soft tissue swelling. Mild degenerative change of the IP joints noted. Joint spaces are preserved and there are no erosive changes. No acute bony process. DIVISION OF RADIOLOGY Provider, [facility] - 04/06/2021 * * *Final [...] relevant examinations available for comparison within the [facility]. RESULT: AP, lateral and oblique radiographs of the left foot demonstrate mild forefoot soft tissue swelling. Mild degenerative change of the IP joints noted. Joint spaces are preserved and there are no erosive changes. No acute bony process. IMPRESSION IMPRESSION: Mild forefoot soft tissue swelling. No acute bony process. Media Production Manager: PSCJose Transcribe Date/Time: Apr 06 2021 12:19P Dictated by : PETEY POWERS MD This examination was interpreted and the report reviewed and electronically signed by: PETEY POWERS MD on Apr 06 2021 12:20PM EST [facility] XR Foot - left AP and Latera l and obliqueOrdered By: [facility] Provider on 04-06-2021 [place] Vital Signs Date Time Vital Sign Value Performing Clinician Facility 05-05-2025 16:02-0400 Body height 167.[address] Alejandro Rosales MD Work Phone: 8(516)[phone] [place] [address] 05-05-2025 16:02-0400 Body mass index (BMI) [Ratio] 31.6 kg/m2 Dr. Alejandro Rosales MD Work Phone: 5(020)230-937092 [place] [address] 05-05-2025 16:02-0400 Body temperature 98.1 [degF] Dr. Alejandro Rosales MD Work Phone: 8(380)123-349392 [place] [address] 05-05-2025 16:02-0400 Body weight 88.[address] Alejandro Rosales MD Work Phone: 7(183)622-596492 [place] [address] 05-05-2025 16:02-0400 Diastolic blood pressure 69 mm[Hg] Dr. Alejandro Rosales MD Work Phone: 8(459)038-351892 [place] [address] 05-05-2025 16:02-0400 Heart rate 62 /min Dr. Alejandro Rosales MD Work Phone: 7(621)292-433992 [place] [address] 05-05-2025 16:02-0400 Respiratory rate 18 /min Dr. Alejandro Rosales MD Work Phone: 4(614)340-908163 [place] [address] 05-05-2025 16:02-0400 SaO2% (BldA) [Mass fraction] 94 % Dr. Alejandro Rosales MD Work Phone: 4(931)962-093892 [place] [address] 05-05-2025 16:02-0400 Systolic blood pressure 115 mm[Hg] Dr. Alejandro Rosales MD Work Phone: 6(363)028-817012 [address] 04-21-2025 15:05-0400 Body height 167.[address] Alejandro Rosales MD Work Phone: 3(838)821-288892 [place] [address] 04-21-2025 15:05-0400 Body mass index (BMI) [Ratio] 31.8 kg/m2 Dr. Alejandro Rosales MD Work Phone: 7(752)912-621192 [place] [address] 04-21-2025 15:05-0400 Body temperature 97.9 [degF] Dr. Alejandro Rosales MD Work Phone: 6(640)556-510392 [place] [address] 04-21-2025 15:05-0400 Body weight 89.[address] Alejandro Rosales MD Work Phone: 7(575)579-222292 [place] [address] 04-21-2025 15:05-0400 Diastolic blood pressure 68 mm[Hg] Dr. Alejandro Rosales MD Work Phone: 0(859)468-111792 [place] [address] 04-21-2025 15:05-0400 Heart rate 74 /min Dr. Alejandro Rosales MD Work Phone: 2(362)810-334892 [place] [address] 04-21-2025 15:05-0400 Respiratory rate 16 /min Dr. Alejandro Rosales MD Work Phone: 6(033)257-175292 [place] [address] 04-21-2025 15:05-0400 SaO2% (BldA) [Mass fraction] 94 % Dr. Alejandro Rosales MD Work Phone: 5(720)996-515892 [place] [address] 04-21-2025 15:05-0400 Systolic blood pressure 125 mm[Hg] Dr. Alejandro Rosales MD Work Phone: 8(780)086-370892 [place] [address] 04-19-2025 11:08-0400 Body height 167.[address] Alejandro Rosales MD Work Phone: 0(304)151-347492 [place] [address] 04-19-2025 11:08-0400 Body mass index (BMI) [Ratio] 32.1 kg/m2 Dr. Alejandro Rosales MD Work Phone: 7(166)291-969892 [place] [address] 04-19-2025 11:08-0400 Body weight 90.[address] Alejandro Rosales MD Work Phone: 1(498)579-901292 [place] [address] 04-19-2025 11:08-0400 Diastolic blood pressure 66 mm[Hg] Dr. Alejandro Rosales MD Work Phone: 3(448)794-978892 [place] [address] 04-19-2025 11:08-0400 Heart rate 79 /min Dr. Alejandro Rosales MD Work Phone: 4(991)281-559692 [place] [address] 04-19-2025 11:08-0400 Respiratory rate 18 /min Dr. Alejandro Rosales MD Work Phone: 9(149)437-866792 [place] [address] 04-19-2025 11:08-0400 Systolic blood pressure 117 mm[Hg] Dr. Alejandro Rosales MD Work Phone: 0(653)090-674292 [place] [address] 03-25-2025 06:41-0400 Body mass index (BMI) [Ratio] 31.8 kg/m2 Dr. Alejandro Rosales MD Work Phone: 3(903)201-839292 [place] [address] 03-25-2025 06:41-0400 Body temperature 97.1 [degF] Dr. Alejandro Rosales MD Work Phone: 6(880)209-566792 [place] [address] 03-25-2025 06:41-0400 Body weight 89.[address] Alejandro Rosales MD Work Phone: 2(372)911-531792 [place] [address] 03-25-2025 06:41-0400 Diastolic blood pressure 68 mm[Hg] Dr. Alejandro Rosales MD Work Phone: 4(750)618-718092 [place] [address] 03-25-2025 06:41-0400 Heart rate 79 /min Dr. Alejandro Rosales MD Work Phone: 8(076)652-931792 [place] [address] 03-25-2025 06:41-0400 Respiratory rate 20 /min Dr. Alejandro Rosales MD Work Phone: 2(203)438-664492 [place] [address] 03-25-2025 06:41-0400 SaO2% (BldA) [Mass fraction] 90 % Dr. Alejandro Rosales MD Work Phone: 0(944)246-391592 [place] [address] 03-25-2025 06:41-0400 Systolic blood pressure 116 mm[Hg] Dr. Alejandro Rosales MD Work Phone: 2(900)783-524592 [place] [address] 03-09-2025 13:09-0400 Body height 167.[address] Alejandro Rosales MD Work Phone: 7(779)643-991392 [place] [address] 03-09-2025 13:09-0400 Body mass index (BMI) [Ratio] 32.8 kg/m2 Dr. Alejandro Rosales MD Work Phone: 0(237)065-507463 [place] [address] 03-09-2025 13:09-0400 Body temperature 96.5 [degF] Dr. Alejandro Rosales MD Work Phone: 5(642)610-453292 [place] [address] 03-09-2025 13:09-0400 Body weight 92.[address] Alejandro Rosales MD Work Phone: 5(408)852-235692 [place] [address] 03-09-2025 13:09-0400 Diastolic blood pressure 66 mm[Hg] Dr. Alejandro Rosales MD Work Phone: 1(240)177-889392 [place] [address] 03-09-2025 13:09-0400 Heart rate 52 /min Dr. Alejandro Rosales MD Work Phone: 7(201)937-468892 [place] [address] 03-09-2025 13:09-0400 Respiratory rate 16 /min Dr. Alejandro Rosales MD Work Phone: 5(145)528-070392 [place] [address] 03-09-2025 13:09-0400 SaO2% (BldA) [Mass fraction] 89 % Dr. Alejandro Rosales MD Work Phone: 7(027)902-586892 [place] [address] 03-09-2025 13:09-0400 Systolic blood pressure 100 mm[Hg] Dr. Alejandro Rosales MD Work Phone: 1(291)106-195492 [place] [address] 02-01-2025 13:14-0400 Body height 167.[address] Alejandro Rosales MD Work Phone: 5(208)145-138692 [place] [address] 02-01-2025 13:14-0400 Body weight 90.[address] Alejandro Rosales MD Work Phone: 3(962)227-757392 [place] [address] 02-01-2025 13:14-0400 Heart rate 67 /min Dr. Alejandro Rosales MD Work Phone: 2(989)104-776692 [place] [address] 02-01-2025 13:14-0400 Inhaled oxygen flow rate 2 L/min Dr. Alejandro Rosales MD Work Phone: 7(586)910-052392 [place] [address] 02-01-2025 13:14-0400 SaO2% (BldA) [Mass fraction] 94 % Dr. Alejandro Rosales MD Work Phone: [facility] 12-24-2024 05:13-0400 Body mass index (BMI) [Ratio] 32.7 kg/m2 Dr. Alejandro Rosales MD Work Phone: [facility] 12-24-2024 05:13-0400 Body temperature 97.4 [degF] Dr. Alejandro Rosales MD Work Phone: 3(835)855-603812 [address] 12-24-2024 05:13-0400 Body weight 94.[address] Alejandro Rosales MD Work Phone: 8(906)766-325592 [place] [address] 12-24-2024 05:13-0400 Diastolic blood pressure 76 mm[Hg] Dr. Alejandro Rosales MD Work Phone: 5(734)430-158012 [address] 12-24-2024 05:13-0400 Heart rate 59 /min Dr. Alejandro Rosales MD Work Phone: 2(710)120-182612 [address] 12-24-2024 05:13-0400 Respiratory rate 14 /min Dr. Alejandro Rosales MD Work Phone: 2(803)508-809512 [address] 12-24-2024 05:13-0400 SaO2% (BldA) [Mass fraction] 98 % Dr. Alejandro Rosales MD Work Phone: 4(823)463-271063 [place] [address] 12-24-2024 05:13-0400 Systolic blood pressure 117 mm[Hg] Dr. Alejandro Rosales MD Work Phone: 0(143)672-931163 [place] [address] 12-23-2024 15:03-0400 Diastolic blood pressure 73 mm[Hg] Dr. Alejandro Rosales MD Work Phone: 5(319)074-753512 [address] 12-23-2024 15:03-0400 Heart rate 50 /min Dr. Alejandro Rosales MD Work Phone: 2(578)226-155263 [place] [address] 12-23-2024 15:03-0400 Respiratory rate 18 /min Dr. Alejandro Rosales MD Work Phone: 4(905)805-532163 [place] [address] 12-23-2024 15:03-0400 SaO2% (BldA) [Mass fraction] 96 % Dr. Alejandro Rosales MD Work Phone: 3(332)552-113863 [place] [address] 12-23-2024 15:03-0400 Systolic blood pressure 116 mm[Hg] Dr. Alejandro Rosales MD Work Phone: 6(127)781-576492 [place] [address] 12-19-2024 13:27-0400 Body temperature 97.3 [degF] Dr. Alejandro Rosales MD Work Phone: 1(840)549-679992 [place] [address] 12-19-2024 13:27-0400 Diastolic blood pressure 47 mm[Hg] Dr. Alejandro Rosales MD Work Phone: 3(813)814-438292 [place] [address] 12-19-2024 13:27-0400 Heart rate 75 /min Dr. Alejandro Rosales MD Work Phone: 7(315)598-774592 [place] [address] 12-19-2024 13:27-0400 Respiratory rate 16 /min Dr. Alejandro Rosales MD Work Phone: 6(237)790-249392 [place] [address] 12-19-2024 13:27-0400 SaO2% (BldA) [Mass fraction] 94 % Dr. Alejandro Rosales MD Work Phone: 6(857)732-716192 [place] [address] 12-19-2024 13:27-0400 Systolic blood pressure 122 mm[Hg] Dr. Alejandro Rosales MD Work Phone: 8(470)372-737092 [place] [address] 12-18-2024 15:04-0400 Body temperature 97.5 [degF] Dr. Alejandro Rosales MD Work Phone: 2(432)260-253292 [place] [address] 12-18-2024 15:04-0400 Diastolic blood pressure 45 mm[Hg] Dr. Alejandro Rosales MD Work Phone: 4(776)464-645492 [place] [address] 12-18-2024 15:04-0400 Heart rate 45 /min Dr. Alejandro Rosales MD Work Phone: 3(453)812-024992 [place] [address] 12-18-2024 15:04-0400 Respiratory rate 18 /min Dr. Alejandro Rosales MD Work Phone: 1(497)355-844592 [place] [address] 12-18-2024 15:04-0400 SaO2% (BldA) [Mass fraction] 95 % Dr. Alejandro Rosales MD Work Phone: 3(682)196-027963 [place] [address] 12-18-2024 15:04-0400 Systolic blood pressure 122 mm[Hg] Dr. Alejandro Rosales MD Work Phone: 1(721)577-452492 [place] [address] 12-17-2024 12:20-0400 Body height 170.[address] Alejandro Rosales MD Work Phone: 0(601)511-532792 [place] [address] 12-17-2024 12:20-0400 Body mass index (BMI) [Ratio] 31.4 kg/m2 Dr. Alejandro Rosales MD Work Phone: 9(376)182-859992 [place] [address] 12-17-2024 12:20-0400 Body weight 91.[address] Alejandro Rosales MD Work Phone: 9(521)422-792792 [place] [address] 12-17-2024 11:24-0400 Body temperature 98.6 [degF] Dr. Alejandro Rosales MD Work Phone: 9(835)335-383792 [place] [address] 12-17-2024 11:24-0400 Diastolic blood pressure 64 mm[Hg] Dr. Alejandro Rosales MD Work Phone: 0(277)259-158092 [place] [address] 12-17-2024 11:24-0400 Heart rate 76 /min Dr. Alejandro Rosales MD Work Phone: 6(433)094-263592 [place] [address] 12-17-2024 11:24-0400 Respiratory rate 14 /min Dr. Alejandro Rosales MD Work Phone: 1(405)407-302692 [place] [address] 12-17-2024 11:24-0400 SaO2% (BldA) [Mass fraction] 98 % Dr. Alejandro Rosales MD Work Phone: 0(571)770-398792 [place] [address] 12-17-2024 11:24-0400 Systolic blood pressure 134 mm[Hg] Dr. Alejandro Rosales MD Work Phone: 1(245)485-764292 [place] [address] 12-17-2024 08:15-0400 Body mass index (BMI) [Ratio] 33.2 kg/m2 Dr. Alejandro Rosales MD Work Phone: 9(464)190-030292 [place] [address] 12-17-2024 08:15-0400 Body weight 96.[address] Alejandro Rosales MD Work Phone: 2(116)685-433663 [place] [address] 12-09-2024 09:10-0400 Body height 170.[address] Alejandro Rosales MD Work Phone: 4(511)440-995892 [place] [address] 12-09-2024 09:10-0400 Body mass index (BMI) [Ratio] 32.8 kg/m2 Dr. Alejandro Rosales MD Work Phone: 7(797)585-462692 [place] [address] 12-09-2024 09:10-0400 Body temperature 98.1 [degF] Dr. Alejandro Rosales MD Work Phone: 8(718)475-220392 [place] [address] 12-09-2024 09:10-0400 Body weight 95.[address] Alejandro Rosales MD Work Phone: 7(302)307-157192 [place] [address] 12-09-2024 09:10-0400 Diastolic blood pressure 64 mm[Hg] Dr. Alejandro Rosales MD Work Phone: 4(187)506-306292 [place] [address] 12-09-2024 09:10-0400 Heart rate 62 /min Dr. Alejandro Rosales MD Work Phone: 0(987)666-092592 [place] [address] 12-09-2024 09:10-0400 Respiratory rate 16 /min Dr. Alejandro Rosales MD Work Phone: 6(656)853-587992 [place] [address] 12-09-2024 09:10-0400 SaO2% (BldA) [Mass fraction] 93 % Dr. Alejandro Rosales MD Work Phone: 6(736)391-484792 [place] [address] 12-09-2024 09:10-0400 Systolic blood pressure 108 mm[Hg] Dr. Alejandro Rosales MD Work Phone: 9(986)646-687892 [place] [address] 12-07-2024 14:33-0400 Body mass index (BMI) [Ratio] 33.5 kg/m2 Dr. Alejandro Rosales MD Work Phone: 0(492)772-294192 [place] [address] 12-07-2024 14:33-0400 Body temperature 97.2 [degF] Dr. Alejandro Rosales MD Work Phone: 9(904)011-882492 [place] [address] 12-07-2024 14:33-0400 Body weight 97.[address] Alejandro Rosales MD Work Phone: 0(809)682-957663 [place] [address] 12-07-2024 14:33-0400 Diastolic blood pressure 79 mm[Hg] Dr. Alejandro Rosales MD Work Phone: 2(830)187-097592 [place] [address] 12-07-2024 14:33-0400 Heart rate 85 /min Dr. Alejandro Rosales MD Work Phone: 7(631)401-996492 [place] [address] 12-07-2024 14:33-0400 Respiratory rate 18 /min Dr. Alejandro Rosales MD Work Phone: 8(948)494-257892 [place] [address] 12-07-2024 14:33-0400 SaO2% (BldA) [Mass fraction] 97 % Dr. Alejandro Rosales MD Work Phone: 0(077)451-296792 [place] [address] 12-07-2024 14:33-0400 Systolic blood pressure 168 mm[Hg] Dr. Alejandro Rosales MD Work Phone: 6(828)915-224992 [place] [address] 12-07-2024 09:02-0400 Body mass index (BMI) [Ratio] 33.3 kg/m2 Dr. Alejandro Rosales MD Work Phone: 4(045)558-586192 [place] [address] 12-07-2024 09:02-0400 Body temperature 97.7 [degF] Dr. Alejandro Rosales MD Work Phone: 9(672)393-349092 [place] [address] 12-07-2024 09:02-0400 Body weight 96.[address] Alejandro Rosales MD Work Phone: 6(424)209-493792 [place] [address] 12-07-2024 09:02-0400 Diastolic blood pressure 60 mm[Hg] Dr. Alejandro Rosales MD Work Phone: 7(274)456-386092 [place] [address] 12-07-2024 09:02-0400 Heart rate 74 /min Dr. Alejandro Rosales MD Work Phone: 7(042)073-080992 [place] [address] 12-07-2024 09:02-0400 Respiratory rate 16 /min Dr. Alejandro Rosales MD Work Phone: 6(128)226-970992 [place] [address] 12-07-2024 09:02-0400 SaO2% (BldA) [Mass fraction] 91 % Dr. Alejnadro Rosales MD Work Phone: [facility] 12-07-2024 09:02-0400 Systolic blood pressure 97 mm[Hg] Dr. Alejandro Rosales MD Work Phone: [facility] 11-26-2024 20:28-0400 Body temperature 98 [degF] Dr. Alejandro Rosales MD Work Phone: 7(843)087-360292 [place] [address] 11-26-2024 20:28-0400 Diastolic blood pressure 59 mm[Hg] Dr. Alejandro Rosales MD Work Phone: 7(006)162-361463 [place] [address] 11-26-2024 20:28-0400 Heart rate 52 /min Dr. Alejandro Rosales MD Work Phone: 5(327)449-063692 [place] [address] 11-26-2024 20:28-0400 Respiratory rate 18 /min Dr. Alejandro Rosales MD Work Phone: 9(480)724-426192 [place] [address] 11-26-2024 20:28-0400 SaO2% (BldA) [Mass fraction] 98 % Dr. Alejandro Rosales MD Work Phone: 0(467)205-983363 [place] [address] 11-26-2024 20:28-0400 Systolic blood pressure 132 mm[Hg] Dr. Alejandro Rosales MD Work Phone: 6(953)854-545012 [address] 11-26-2024 05:08-0400 Body mass index (BMI) [Ratio] 33.6 kg/m2 Dr. Alejandro Rosales MD Work Phone: 1(475)718-543563 [place] [address] 11-26-2024 05:08-0400 Body weight 97.[address] Alejandro Rosales MD Work Phone: [facility] 11-25-2024 21:42-0400 Inhaled oxygen concentration 21 % Dr. Alejandro Rosales MD Work Phone: [facility] 11-25-2024 21:42-0400 Inhaled oxygen flow rate 0 L/min Dr. Alejandro Rosales MD Work Phone: [facility] 11-11-2024 11:04-0400 Diastolic blood pressure 74 mm[Hg] Audelia Wood MD Work Phone: 1(697)023-812516 [place] [address] 11-11-2024 11:04-0400 Heart rate 66 /min Audelia Wood MD Work Phone: 4(490)333-151216 [place] [address] 11-11-2024 11:04-0400 Respiratory rate 20 /min Audelia Wood MD Work Phone: 0(474)187-867816 [place] [address] 11-11-2024 11:04-0400 SaO2% (BldA) [Mass fraction] 93 % Audelia Wood MD Work Phone: 6(005)529-076616 [place] [address] 11-11-2024 11:04-0400 Systolic blood pressure 114 mm[Hg] Audelia Wood MD Work Phone: 7(712)354-871216 [place] [address] 11-11-2024 11:01-0400 Body temperature 97.5 [degF] Audelia Wood MD Work Phone: 6(188)768-181816 [place] [address] 11-09-2024 09:29-0400 Body height 170.2 cm Audelia Wood MD Work Phone: 5(007)285-631416 [place] [address] 11-09-2024 09:29-0400 Body mass index (BMI) [Ratio] 34.46 kg/m2 Audelia Wood MD Work Phone: 6(657)786-898516 [place] [address] 11-09-2024 09:29-0400 Body weight 99.8 kg Audelia Wood MD Work Phone: 2(205)073-294916 [place] [address] 11-08-2024 17:00-0400 Body temperature 98.1 [degF] Dr. Alejandro Rosales MD Work Phone: [facility] 11-08-2024 17:00-0400 Diastolic blood pressure 58 mm[Hg] Dr. Alejandro Rosales MD Work Phone: [facility] 11-08-2024 17:00-0400 Heart rate 58 /min Dr. Alejandro Rosales MD Work Phone: [facility] 11-08-2024 17:00-0400 Respiratory rate 19 /min Dr. Alejandro Rosales MD Work Phone: 8(372)235-697763 [place] [address] 11-08-2024 17:00-0400 SaO2% (BldA) [Mass fraction] 97 % Dr. Alejandro Rosales MD Work Phone: 5(988)544-978692 [place] [address] 11-08-2024 17:00-0400 Systolic blood pressure 147 mm[Hg] Dr. Alejandro Rosales MD Work Phone: 4(929)067-814192 [place] [address] 11-08-2024 16:30-0400 Inhaled oxygen flow rate 2 L/min Dr. Alejandro Rosales MD Work Phone: 1(612)398-765092 [place] [address] 11-08-2024 16:13-0400 Body height 162.[address] Alejandro Rosales MD Work Phone: 7(890)348-010592 [place] [address] 11-08-2024 16:13-0400 Body mass index (BMI) [Ratio] 38.9 kg/m2 Dr. Alejandro Rosales MD Work Phone: 0(856)425-854592 [place] [address] 11-08-2024 16:13-0400 Body weight 102.[address] Alejandro Rosales MD Work Phone: 2(891)528-791092 [place] [address] 09-30-2024 15:15-0500 Body temperature 97.7 [degF] Dr. Alejandro Rosales MD Work Phone: 8(040)435-706192 [place] [address] 09-30-2024 15:15-0500 Diastolic blood pressure 64 mm[Hg] Dr. Alejandro Rosales MD Work Phone: 0(252)940-585992 [place] [address] 09-30-2024 15:15-0500 Heart rate 57 /min Dr. Alejandro Rosales MD Work Phone: 0(316)379-011992 [place] [address] 09-30-2024 15:15-0500 Respiratory rate 18 /min Dr. Alejandro Rosales MD Work Phone: 4(507)929-385992 [place] [address] 09-30-2024 15:15-0500 SaO2% (BldA) [Mass fraction] 92 % Dr. Alejandro Rosales MD Work Phone: 2(860)028-235492 [place] [address] 09-30-2024 15:15-0500 Systolic blood pressure 152 mm[Hg] Dr. Alejandro Rosales MD Work Phone: [facility] 01-06-2023 14:29-0400 Body height 162.[address] Alejandro Rosales Work Phone: [facility] 01-06-2023 14:29-0400 Body mass index (BMI) [Ratio] 38.1 kg/m2 Dr. Alejandro Rosales Work Phone: [facility] 01-06-2023 14:29-0400 Body temperature 96.7 [degF] Dr. Alejandro Rosales Work Phone: [facility] 01-06-2023 14:29-0400 Body weight 100.[address] Alejandro Rosales Work Phone: [facility] 01-06-2023 14:29-0400 Diastolic blood pressure 62 mm[Hg] Dr. Alejandro Rosales Work Phone: [facility] 01-06-2023 14:29-0400 Heart rate 80 /min Dr. Alejandro Rosales Work Phone: [facility] 01-06-2023 14:29-0400 Respiratory rate 17 /min Dr. Alejandro Rosales Work Phone: [facility] 01-06-2023 14:29-0400 SaO2% (BldA) [Mass fraction] 97 % Dr. Alejandro Rosales Work Phone: [facility] 01-06-2023 14:29-0400 Systolic blood pressure 131 mm[Hg] Dr. Alejandro Rosales Work Phone: [facility] 01-02-2023 14:53-0400 Body height 162.[address] Alejandro Rosales Work Phone: [facility] 01-02-2023 14:53-0400 Body mass index (BMI) [Ratio] 38.5 kg/m2 Dr. Alejandro Rosales Work Phone: [facility] 01-02-2023 14:53-0400 Body temperature 97.7 [degF] Dr. Alejandro Rosales Work Phone: [facility] 01-02-2023 14:53-0400 Body weight 101.[address] Alejandro Rosales Work Phone: [facility] 01-02-2023 14:53-0400 Diastolic blood pressure 70 mm[Hg] Dr. Alejandro Rosales Work Phone: [facility] 01-02-2023 14:53-0400 Heart rate 67 /min Dr. Alejandro Rosales Work Phone: [facility] 01-02-2023 14:53-0400 Respiratory rate 16 /min Dr. Alejandro Rosales Work Phone: [facility] 01-02-2023 14:53-0400 SaO2% (BldA) [Mass fraction] 93 % Dr. Alejandro Rosales Work Phone: [facility] 01-02-2023 14:53-0400 Systolic blood pressure 120 mm[Hg] Dr. Alejandro Rosales Work Phone: [facility] 12-17-2022 15:57-0400 Body mass index (BMI) [Ratio] 38.7 kg/m2 Dr. Alejandro Rosales Work Phone: [facility] 12-17-2022 15:57-0400 Body temperature 97.3 [degF] Dr. Alejandro Rosales Work Phone: [facility] 12-17-2022 15:57-0400 Body weight 102.[address] Alejandro Rosales Work Phone: [facility] 12-17-2022 15:57-0400 Diastolic blood pressure 76 mm[Hg] Dr. Alejandro Rosales Work Phone: [facility] 12-17-2022 15:57-0400 Heart rate 62 /min Dr. Alejandro Rosales Work Phone: [facility] 12-17-2022 15:57-0400 Respiratory rate 16 /min Dr. Alejandro Rosales Work Phone: [facility] 12-17-2022 15:57-0400 SaO2% (BldA) [Mass fraction] 92 % Dr. Alejandro Rosales Work Phone: [facility] 12-17-2022 15:57-0400 Systolic blood pressure 137 mm[Hg] Dr. Alejandro Rosales Work Phone: [facility] 11-25-2022 16:02-0400 Body height 162.[address] Alejandro Rosales Work Phone: [facility] 11-25-2022 16:02-0400 Body mass index (BMI) [Ratio] 38.9 kg/m2 Dr. Alejandro Rosales Work Phone: [facility] 11-25-2022 16:02-0400 Body temperature 98.1 [degF] Dr. Alejandro Rosales Work Phone: [facility] 11-25-2022 16:02-0400 Body weight 103.[address] Alejandro Rosales Work Phone: [facility] 11-25-2022 16:02-0400 Diastolic blood pressure 76 mm[Hg] Dr. Alejandro Rosales Work Phone: [facility] 11-25-2022 16:02-0400 Heart rate 77 /min Dr. Alejandro Rosales Work Phone: [facility] 11-25-2022 16:02-0400 Respiratory rate 16 /min Dr. Alejandro Rosales Work Phone: [facility] 11-25-2022 16:02-0400 SaO2% (BldA) [Mass fraction] 91 % Dr. Alejandro Rosales Work Phone: [facility] 11-25-2022 16:02-0400 Systolic blood pressure 146 mm[Hg] Dr. Alejandro Rosales Work Phone: [facility] 10-28-2022 16:03-0400 Body mass index (BMI) [Ratio] 40 kg/m2 Dr. Alejandro Rosales Work Phone: [facility] 10-28-2022 16:03-0400 Body temperature 98.6 [degF] Dr. Alejandro Rosales Work Phone: [facility] 10-28-2022 16:03-0400 Body weight 105.[address] Alejandro Rosales Work Phone: [facility] 10-28-2022 16:03-0400 Heart rate 86 /min Dr. Alejandro Rosales Work Phone: [facility] 10-28-2022 16:03-0400 Respiratory rate 18 /min Dr. Alejandro Rosales Work Phone: [facility] 10-28-2022 16:03-0400 SaO2% (BldA) [Mass fraction] 96 % Dr. Alejandro Rosales Work Phone: [facility] 10-16-2022 14:58-0400 Body temperature 96.6 [degF] Dr. Alejandro Rosales Work Phone: [facility] 10-16-2022 14:58-0400 Diastolic blood pressure 68 mm[Hg] Dr. Alejandro Rosales Work Phone: [facility] 10-16-2022 14:58-0400 Heart rate 67 /min Dr. Alejandro Rosales Work Phone: [facility] 10-16-2022 14:58-0400 Respiratory rate 17 /min Dr. Alejandro Rosales Work Phone: [facility] 10-16-2022 14:58-0400 SaO2% (BldA) [Mass fraction] 95 % Dr. Alejandro Rosales Work Phone: [facility] 10-16-2022 14:58-0400 Systolic blood pressure 127 mm[Hg] Dr. Alejandro Rosales Work Phone: [facility] 04-15-2022 15:38-0400 Body height 162.[address] Alejandro Rosales Work Phone: [facility] Work Phone: 04-15-2022 15:25-0400 Body mass index (BMI) [Ratio] 40.7 kg/m2 Dr. Alejandro Rosales Work Phone: [facility] Work Phone: 04-15-2022 15:25-0400 Body temperature 98 [degF] Dr. Alejandro Rosales Work Phone: [facility] Work Phone: 04-15-2022 15:25-0400 Body weight 107.[address] Alejandro Rosales Work Phone: [facility] Work Phone: 04-15-2022 15:25-0400 Diastolic blood pressure 73 mm[Hg] Dr. Alejandro Rosales Work Phone: [facility] Work Phone: 04-15-2022 15:25-0400 Heart rate 83 /min Dr. Alejandro Rosales Work Phone: [facility] Work Phone: 04-15-2022 15:25-0400 Respiratory rate 83 /min Dr. Alejandro Rosales Work Phone: [facility] Work Phone: 04-15-2022 15:25-0400 SaO2% (BldA) [Mass fraction] 94 % Dr. Alejandro Rosales Work Phone: [facility] Work Phone: 04-15-2022 15:25-0400 Systolic blood pressure 124 mm[Hg] Dr. Alejandro Rosales Work Phone: [facility] Work Phone: 09-05-2021 14:18-0500 Body height 162.[address] Alejandro Rosales Work Phone: [facility] Work Phone: 09-05-2021 14:18-0500 Body mass index (BMI) [Ratio] 41.5 kg/m2 Dr. Alejandro Rosales Work Phone: [facility] Work Phone: 09-05-2021 14:18-0500 Body temperature 97.2 [degF] Dr. Alejandro Rosales Work Phone: [facility] Work Phone: 09-05-2021 14:18-0500 Body weight 109.[address] Alejandro Rosales Work Phone: [facility] Work Phone: 09-05-2021 14:18-0500 Diastolic blood pressure 73 mm[Hg] Dr. Alejandro Rosales Work Phone: [facility] Work Phone: 09-05-2021 14:18-0500 Heart rate 82 /min Dr. Alejandro Rosales Work Phone: [facility] Work Phone: 09-05-2021 14:18-0500 Respiratory rate 15 /min Dr. Alejandro Rosales Work Phone: [facility] Work Phone: 09-05-2021 14:18-0500 SaO2% (BldA) [Mass fraction] 92 % Dr. Alejandro Rosales Work Phone: [facility] Work Phone: 09-05-2021 14:18-0500 Systolic blood pressure 137 mm[Hg] Dr. Alejandro Rosales Work Phone: [facility] Work Phone: Encounters Encounter Date Encounter Type Care Provider Facility Start: 06-06-2025 ambulatory [facility] Facility:[facility] Start: 05-12-2025 ambulatory Alejandro Rosales Facility:[facility] Start: 05-12-2025 ambulatory [facility] Facility:[facility] Start: 05-11-2025 ambulatory [facility] Facility:[facility] Start: 05-05-2025 End: 05-05-[address] Marc Robbins MD -[facility] Work Phone: Start: 05-05-2025 End: 05-05-[address] Alejandro Rosales MD Work Phone: -[facility] Start: 04-26-2025 End: 04-26-[address] Alejandro Rosales MD -[facility] Work Phone: Start: 04-26-2025 End: 04-26-[address] Alejandro Rosales MD Work Phone: -[facility] Start: 04-26-[address] Marc Robbins MD -[facility] Start: 04-26-2025 End: 04-26-2025 ambulatory [facility] [place] [facility] [facility] Start: 04-21-2025 End: 04-21-[address] Marc Robbins MD -[facility] Work Phone: Start: 04-21-2025 End: 04-21-[address] Alejandro Rosales MD Work Phone: -[facility] Start: 04-20-2025 ambulatory Ada Soliman Facility:[facility] Start: 04-20-[address] Ada Soliman DO -Speech Therapy Work Phone: Start: 04-19-2025 End: 04-19-[address] Chris Hand MD -[facility] Work Phone: Start: 04-19-2025 End: 04-19-[address] Chris Hand MD [facility] Start: 04-19-2025 End: 04-19-[address] Alejandro Rosales MD Work Phone: -[facility] Start: 04-19-2025 End: 04-19-2025 ambulatory Alejandro Rosales Facility:[facility] Start: 04-08-[address] Ada Soliman DO -Speech Therapy Work Phone: Start: 04-05-2025 End: 04-05-[address] Alejandro Rosales MD Work Phone: -Sleep Lab Start: 04-05-2025 End: 04-05-2025 Patient encounter procedure REY Hernandes -Sleep Lab Work Phone: Start: 04-05-2025 End: 04-05-2025 ambulatory Alejandro Rosales Facility:[facility] Start: 03-25-2025 End: 03-25-[address] Alejandro Rosales MD Work Phone: -[facility] Start: 03-25-2025 End: 03-25-2025 Patient encounter procedure ARMORED VEHICLE OFFICER Anu Hernandes -[facility] Work Phone: Start: 03-21-[address] Ada Soliman DO -Speech Therapy Work Phone: Start: 03-09-2025 End: 03-09-[address] Marc Kumari MD -[facility] Work Phone: Start: 03-09-2025 End: 03-09-[address] Alejandro Rosales MD Work Phone: -[facility] Start: 03-07-[address] Ada Soliman DO -Speech Therapy Work Phone: Start: 03-01-2025 Encounter for genera l adult medical examination without abnormal findings Anu Hernandes [facility] Start: 02-25-2025 End: 02-25-[address] Alejandro Rosales MD Work Phone: -[facility] Start: 02-25-2025 End: 02-25-[address] Alejandro Rosales MD -[facility] Work Phone: Start: 02-25-2025 End: 02-25-2025 ambulatory Alejandro Rosales Facility:[facility] Start: 02-23-[address] Ada Soliman DO -Speech Therapy Work Phone: Start: 02-22-2025 End: 02-22-[address] Alejandro Rosales MD Work Phone: -Sleep Lab Start: 02-22-2025 End: 02-22-2025 Patient encounter procedure ARMORED VEHICLE OFFICER Anu Hernandes -Sleep Lab Work Phone: Start: 02-22-2025 End: 02-22-2025 ambulatory Alejandro [place] Facility:[facility] Start: 02-16-[address] Ada Soliman DO -Speech Therapy Work Phone: Start: 02-09-2025 End: 02-09-[address] Alejandro Rosales MD Work Phone: -Cat Scan [facility] Start: 02-09-2025 End: 02-09-2025 Patient encounter procedure ARMORED VEHICLE OFFICER Anu Greta -Cat Scan [facility] Work Phone: Start: 02-09-2025 End: 02-09-2025 ambulatory Alejandro Rosales Facility:[facility] Start: 02-03-2025 ambulatory Alejandro Rosales Facility:[facility] Start: 02-03-2025 Non-patient / Non-visit Dr. Wally ireland DO -[facility] Start: 02-01-2025 End: 02-01-[address] Alejandro Rosales MD Work Phone: -Pulmonary Services/Neurology Start: 02-01-2025 End: 02-01-2025 Patient encounter procedure ARMORED VEHICLE OFFICER Anu Hernandes -Pulmonary Services/Neurology Work Phone: Start: 02-01-2025 End: 02-01-2025 ambulatory Alejandro Rosales Facility:[facility] Start: 01-28-[address] Ada Soliman DO -Speech Therapy Work Phone: Start: 01-21-[address] Ada Soliman DO -Speech Therapy Work Phone: Start: 01-20-2025 End: 01-20-[address] Alejandro Roasles MD Work Phone: [facility] Work Phone: Start: 01-20-2025 End: 01-20-2025 Patient encounter procedure ARMORED VEHICLE OFFICER Anu Hernandes -Sleep Lab Work Phone: Start: 01-19-2025 End: 01-20-[address] Alejandro Rosales MD Work Phone: [facility] Work Phone: Start: 01-19-2025 End: 01-19-2025 Patient encounter procedure ARMORED VEHICLE OFFICER Anu Hernandes -Pulmonary Services/Neurology Work Phone: Start: 01-19-2025 End: 01-19-2025 ambulatory Alejandro [place] Start: 12-24-2024 End: 12-24-2024 Patient encounter procedure ARMORED VEHICLE OFFICER Anu Hernandes -[facility] Work Phone: Start: 12-24-2024 End: 12-24-2024 ambulatory Alejandro Rosales [place] Start: 12-23-2024 End: 12-23-[address] Kevan Jama MD -[facility] Work Phone: Start: 12-23-2024 End: 12-23-2024 ambulatory Kevan Jama [place] Start: 12-23-2024 ambulatory Alejandro Rosales Facility:[facility] Start: 12-19-2024 Non-patient / Non-visit Dr. Zainab Castro MD -[facility] Work Phone: Start: 12-19-2024 Non-patient / Non-visit [facility] K[facility]une[facility] Start: 12-18-2024 Non-patient / Non-visit Dr. Zainab Castro MD -[facility] Work Phone: Start: 12-18-2024 Non-patient / Non-visit Dr. Kevan antunez [facility] Start: 12-17-2024 End: 12-19-2024 ambulatory Alejandro Rosales Facility:[facility] Start: 12-17-2024 End: 12-19-2024 Evaluation and management of inpatient Dr. Shayla Castro MD -Medical Surgical 3 Work Phone: Start: 12-15-[address] Ada Soliman DO -Speech Therapy Work Phone: Start: 12-15-2024 End: 12-15-[address] Alejandro Rosales MD Work Phone: [facility] Work Phone: Start: 12-15-2024 End: 12-15-[address] Jamey Harrington MD -Cardiovascular Services Work Phone: Start: 12-15-2024 End: 12-15-2024 ambulatory Alejandro [place] Facility:[facility] Start: 12-09-2024 End: 12-09-[address] Marc Robbins MD -[facility] Work Phone: Start: 12-09-2024 End: 12-09-2024 ambulatory [facility] [place] Start: 12-07-2024 End: 12-07-[address] Michelle Paige MD -[facility] Work Phone: Start: 12-07-2024 End: 12-07-2024 Patient encounter procedure Latoya Marie NP-Jeremias -[facility] Work Phone: Start: 12-07-2024 End: 12-07-2024 ambulatory Alejandrojose Rosales [place] Start: 11-26-2024 End: 11-26-[address] Ada Soliman DO -Sleep Lab Work Phone: Start: 11-26-2024 Non-patient / Non-visit Dr. Mary Lou Soliman [facility] Work Phone: Start: 11-26-2024 End: 11-26-2024 ambulatory Alejandro Rosales Facility:[facility] Start: 11-23-2024 Non-patient / Non-visit Dr. Mary Lou Soliman [facility] Work Phone: Start: 11-22-2024 Non-patient / Non-visit Dr. Mary Lou Soliman [facility] Work Phone: Start: 11-19-2024 Non-patient / Non-visit Dr. Mary Lou Soliman DO [facility] Work Phone: Start: 11-17-2024 Non-patient / Non-visit Dr. Mary Lou Soliman [facility] Work Phone: Start: 11-15-2024 Non-patient / Non-visit Dr. Mary Lou Soliman [facility] Work Phone: Start: 11-11-2024 ambulatory Rg Chi Kris Facility:[facility] Start: 11-11-2024 End: 11-26-2024 Evaluation and management of inpatient Dr. Ada Soliman DO -Rehab Unit Work Phone: Start: 11-08-2024 End: 11-08-2024 ambulatory [facility] PROVIDER [facility] Start: 11-08-2024 End: 11-11-2024 Evaluation and management of inpatient Audelia Wood MD Work Phone: [phone] Comment on above: Stroke Start: 11-08-2024 End: 11-08-2024 Emergency department patient visit Dr. Alejandro Rosales MD Work Phone: -Emergency Department Work Phone: Start: 10-02-2024 ambulatory Alejandro Rosales Facility:[facility] Start: 09-30-2024 End: 09-30-[address] Kevan Jama MD -[facility] Work Phone: Start: 09-30-2024 End: 09-30-2024 ambulatory Kevan Jama Facility:[facility] Start: 09-22-2024 End: 09-22-[address] Alejandro Rosales MD -Outpatient Breast Imaging Work Phone: Start: 09-21-2024 End: 10-01-[address] Alejandro Rosales MD -Laboratory, [facility] Work Phone: Start: 09-21-2024 End: 09-21-[address] Kevan Jama MD -[facility] Work Phone: Start: 09-21-2024 End: 10-01-2024 ambulatory Alejandro Rosales Facility:[facility] Start: 09-17-2024 End: 09-17-[address] Alejandro Rosales MD -Laboratory, [facility] Work Phone: Start: 09-17-2024 End: 09-17-2024 ambulatory Alejandro Rosales Facility:[facility] Start: 09-14-2024 End: 09-14-[address] Alejandro Rosales MD -Laboratory, [facility] Work Phone: Start: 09-13-2024 End: 09-14-2024 ambulatory Alejandro Rosales Facility:[facility] Start: 01-06-2023 End: 01-06-[address] Alejandro Rosales Work Phone: [facility] Work Phone: Start: 01-02-2023 End: 01-02-[address] Alejandro Rosales Work Phone: [facility] Start: 12-31-2022 End: 12-31-[address] Alejandro Rosales Work Phone: [facility] Work Phone: Start: 12-31-2022 End: 12-31-[address] Alejandro [facility]ales Work Phone[facility] Start: 12-25-2022 End: 12-25-[address] Alejandro Rosales Work Phone: [facility] Work Phone: Start: 12-25-2022 End: 12-25-[address] Alejandro Rosales Work Phone[facility] Start: 12-17-[address] Alejandro Rosales Work Phone: [facility] Start: 12-17-2022 End: 12-17-[address] Alejandro Rosales Work Phone: [facility] Start: 12-04-2022 End: 12-04-[address] Alejandro Rosales Work Phone: [facility] Start: 11-25-2022 End: 11-25-[address] Alejandro Rosales Work Phone: [facility] Start: 11-20-2022 End: 11-20-[address] Alejandro Rosales Work Phone: [facility] Work Phone: Start: 11-20-2022 End: 11-20-[address] Alejandro Rosales Work Phone: [facility] Start: 10-28-2022 End: 10-28-[address] Alejandro Rosales Work Phone: [facility] Start: 10-16-[address] Alejandro Rosales Work Phone: [facility] Start: 10-16-2022 End: 10-16-[address] Alejandro Rosales Work Phone: [facility] Start: 10-07-2022 End: 10-07-2022 ambulatory [facility] Work Phone: Start: 10-07-2022 End: 10-07-2022 Patient encounter procedure [facility] Start: 07-04-2022 End: 07-04-[address] Alejandro Rosales Work Phone: [facility] Work Phone: Start: 07-04-2022 End: 07-04-[address] Alejandro Rosales Work Phone: [facility] Start: 06-28-2022 End: 06-28-[address] Alejandro Rosales Work Phone: [facility] Work Phone: Start: 06-28-2022 End: 06-28-[address] Alejandro Rosales Work Phone: [facility]-Cardiovascula r Services Start: 04-15-2022 End: 04-15-[address] Alejandro Rosales Work Phone: [facility] Start: 04-05-2022 End: 04-05-2022 ambulatory [facility] Work Phone: Start: 04-05-2022 End: 04-05-2022 Patient encounter procedure [facility] Start: 02-19-2022 End: 02-19-2022 Patient encounter procedure [facility] Start: 12-20-2021 End: 12-20-[address] Alejandro Rosales Work Phone: [facility] Start: 09-14-2021 End: 09-14-[address] Alejandro Rosales Work Phone: [facility] Start: 09-14-2021 End: 09-14-[address] Alejandro Rosales Work Phone: [facility] Start: 09-05-2021 End: 09-05-[address] Alejandro Rosales Work Phone: [facility] Start: 09-04-2021 End: 09-04-[address] Alejandro Rosales Work Phone: [facility] Start: 08-31-2021 End: 08-31-[address] Alejandro Rosales Work Phone: [facility] Start: 08-15-[address] Philomena Rosales Work Phone: [facility] Start: 08-15-2021 [address]pro[address] exam[address] ation done Dr. Alejandro Rosales MD Work Phone: [facility] Start: 04-06-2021 End: 04-06-2021 Subsequent hospital visit by physician [facility] Work Phone: Radiology Comment on above: Foot pain, left [[id number]] Procedures Date Procedure Procedure Detail Performing Clinician Start: 04-26-2025 PET study for locali zation of tumor Dr. Alejandro Rosales MD Work Phone: Start: 02-25-2025 Urine microalbumin/creatinine ratio measurement Dr. Alejandro Rosales MD Work Phone: Start: 02-09-2025 CT of chest without contrast Dr. Alejandro Rosales MD Work Phone: Start: 12-19-[address] Alejandro Rosales MD Work Phone: Start: 12-18-[address] Alejandro Rosales MD Work Phone: Start: 12-17-[address] Alejandro Rosales MD Work Phone: Start: 12-17-2024 Gram stain microscopy D clarence Rosales MD Work Phone: Start: 12-17-2024 End: 12-17-2024 Microbial culture, body fluid Dr. Alejandro Rosales MD Work Phone: Start: [...] Phone: Start: 11-08-2024 LAVENDER TOP TUBE Colin Forrets MD Work Phone: Start: 11-08-2024 LT BLUE [...] Work Phone: Comment on above: Performed at: [place] [id number] Director: Taiwo Quintero PhD, Phone: [phone] Start: 09-14-2024 Electrophoresis: [id number] Dr. Alejandro Rosales MD Work Phone: Start: 09-14-2024 Electrophoresis: [id number] Dr. Alejandro Rosales MD Work Phone: Start: [...] X-ray Dr. Philomena Rosales Work Phone: Start: 10-16-2022 Radiologic exam ches t [address] Alejandro Rosales MD Work Phone: Start: 10-07-2022 Computed tomography of abdomen and pelvis with intravenous contrast Start: 04-05-2022 Computed tomography of abdomen and pelvis with intravenous contrast Start: 04-06-2021 Radex ankle complete minimum 3 views Jeffrey Robles APRN.SENIOR PROJECT ENGINEER Work Phone: Plan of Treatment Date Care Activity Detail Author Start: 11-08-2029 Lipid panel LIPID SCREENING [facility] Start: 10-11-2025 Urine microalbumin profile DTa P,Tdap,Td Vaccine (2 - Td or Tdap) [place] Start: 04-26-2025 Patient encounter procedure Registered Clinical -[facility] Work Phone: Start: 04-26-2025 PET study for locali zation of tumor PET/CT Tumor Base -Thigh Subs [facility] Start: 04-26-2025 Registered Recurring Registered Recu [facility] Start: 04-19-2025 End: 04-19-2025 Evaluation of diagnostic study results [facility] Start: 04-04-2025 Influenza vaccination INFLUENZ A VACCINE (Season Ended) [facility] Start: 02-01-2025 Walking distance 6 minutes [facility] Start: 12-23-[address] [facility] Work Phone: Start: 12-19-[address] [facility] Start: 12-18-2024 [facility] Start: 12-18-2024 Inhalation therapy procedure [facility] Start: 12-17-2024 [facility] Start: 12-17-2024 Anaerobic Culture Anaerobic Culture [facility] Start: 12-17-2024 Body Fluid Culture Body Fluid Cultur e [facility] Start: 12-17-2024 Microscopic observat ion [Identifier] in Unspecified specimen by Gram stain [facility] Start: 12-17-2024 Following clinical p athway protocol [facility] Start: 12-17-2024 Assessment of risk o f venous thromboembolism [facility] Start: 12-17-2024 Care regimes management [facility] Start: 12-17-2024 Consultation [facility] Start: 12-17-2024 Insertion of cathete r into peripheral vein [facility] Start: 12-17-2024 Measuring intake and output [facility] Start: 12-17-2024 Notification of physician [facility] Start: 12-17-2024 Providing care accor ding to standard [facility] Start: 12-17-2024 Provision of activit y privileges [facility] Start: 12-17-2024 Referral to occupati onal therapist [facility] Start: 12-17-2024 Referral to service [facility] Start: 12-17-2024 End: 12-17-2024 [facility] Start: 12-17-2024 Verification routine [facility] Start: 12-17-2024 Admission procedure [facility] Start: 12-17-2024 End: 12-17-2024 Microbial culture, body fluid [facility] Start: 11-26-[address] [facility] Start: 11-22-2024 [facility] Start: 11-17-2024 End: 11-17-2024 [facility] Start: 11-16-2024 [facility] Start: 11-11-2024 Recommendation to co ntinue with treatment [facility] Start: 11-11-2024 Referral to service [facility] Start: 11-11-2024 Admission procedure [facility] Start: 11-11-2024 Measuring intake and output [facility] Start: 11-11-2024 Patient referral to dietitian [facility] Start: 11-11-2024 Referral to occupati onal therapist [facility] Start: 11-11-2024 Vital signs measurements [facility] Start: 11-11-2024 End: 11-11-2024 [facility] Start: 11-11-2024 Speech therapy assessment [facility] Start: 11-08-2024 Oxygen therapy [facility] Start: 11-08-2024 [facility] Start: 04-04-2024 COVID-19 VACCINE ( season) COVID-19 VACCINE () [facility] Start: 04-04-2024 Covid-19 Vaccine ( season) Covid-19 Vaccine ( season) [place] Start: 04-04-2024 Influenza vaccination Influenza Vacc ine (#1) [place] Start: 08-04-2023 Advance Directive Discussion Advance Directive Discussion [place] Start: 2017 Pneumococcal Vaccine : 65+ (2 of 2 - PPSV23 or PCV20) Pneumococcal Vaccine: 65+ (2 of 2 - PPSV23 or PCV20) [place] Start: 2017 Screening for osteoporosis Bone Dens ity Screening [place] Start: 12-09-2015 Shingrix Vaccine (2 of 3) Sunshine grix Vaccine (2 of 3) [place] Start: 2012 RSV Vaccine (1 - 1-d ose 60+ series) RSV Vaccine (1 - 1-dose 60+ series) [place] Start: 2012 RSV VACCINE (1 - Ris k 60-74 years 1-dose series) RSV VACCINE (1 - Risk 60-74 years 1-dose series) [facility] Start: 2002 Pneumococcal vaccination PNEUM OCOCCAL VACCINE SERIES (1 of 1 - PCV) [facility] Start: 2002 Zoster vaccine hzv l tom for subcutaneous use ZOSTER (SHINGLES) VACCINE (1 of 2) [facility] Start: 1997 Diabetes Screening Diabetes Screenin g [place] Start: 1997 Lipid panel Lipid Screening [facility] Start: 1997 Screening for malign ant neoplasm of colon [place] Start: 1992 Screening for malign ant neoplasm of breast [place] Start: 1973 Screening for malign ant neoplasm of cervix CERVICAL CANCER SCREENING DISCUSSION [facility] Start: 1971 Third diphtheria, te tanus and acellular pertussis (DTaP) vaccination TDAP (ADULT) [facility] Start: 1970 Anxiety Screening Anxiety Screening [place] Start: 1970 Depression Screening Depression Scre [facility] Start: 1970 Hepatitis C screening Hepatitis C Sc reening [place] Start: 1952 Hepatitis C screening HEPATITI S C VIRUS SCREENING [facility] Start: 1952 Screening for osteoporosis DEXA SCAN DISCUSSION [facility] Start: 1952 Tetanus vaccination TETANUS [facility] Start: 1952 Thyroid stimulating hormone measurement TSH [facility] Anion gap in Serum o r Plasma [facility] Anion gap in Serum o r Plasma [facility] Anion gap in Serum o r Plasma [facility] Bacteria identified in Body fluid by Culture [facility] Bacteria identified in Unspecified specimen by Anaerobe culture [facility] BUN/Creatinine ratio [facility] BUN/Creatinine ratio [facility] BUN/Creatinine ratio [facility] Calcium [Mass/volume ] in Serum or Plasma [facility] Calcium [Mass/volume ] in Serum or Plasma [facility] Calcium [Mass/volume ] in Serum or Plasma [facility] Carbon dioxide, tota l [Moles/volume] in Central venous blood [facility] Carbon dioxide, tota l [Moles/volume] in Central venous blood [facility] Carbon dioxide, tota l [Moles/volume] in Central venous blood [facility] Colonoscopy [facility] Creatinine [Mass/vol ume] in Serum or Plasma [facility] Creatinine [Mass/vol ume] in Serum or Plasma [facility] Creatinine [Mass/vol ume] in Serum or Plasma [facility] Erythrocyte mean corpuscular volume determination [facility] Erythrocyte mean corpuscular volume determination [facility] Erythrocyte mean corpuscular volume determination [facility] Glucose [Mass/volume ] in Serum or Plasma [facility] Glucose [Mass/volume ] in Serum or Plasma [facility] Glucose [Mass/volume ] in Serum or Plasma [facility] Hematocrit [Volume Fraction] of Blood [facility] Hematocrit [Volume Fraction] of Blood [facility] Hematocrit [Volume Fraction] of Blood [facility] Hemoglobin [Mass/vol ume] in Blood [facility] Hemoglobin [Mass/vol ume] in Blood [facility] Hemoglobin [Mass/vol ume] in Blood [facility] Leukocytes [#/volume ] in Blood [facility] Leukocytes [#/volume ] in Blood [facility] Leukocytes [#/volume ] in Blood [facility] Mean corpuscular hemoglobin concentration determination [facility] Mean corpuscular hemoglobin concentration determination [facility] Mean corpuscular hemoglobin concentration determination [facility] Mean corpuscular hemoglobin determination [facility] Mean corpuscular hemoglobin determination [facility] Mean corpuscular hemoglobin determination [facility] Measurement of renal function [facility] Measurement of renal function [facility] Measurement of renal function [facility] MR Brain WO and W co ntrast IV [facility] Neutrophil count [facility] Neutrophil count [facility] Neutrophil count [facility] Neutrophil percent differential count [facility] Neutrophil percent differential count [facility] Neutrophil percent differential count [facility] NM Heart Views W str ess and W radionuclide IV [facility] Patient Education [facility] Work Phone: Patient referral [facility] Work Phone: Platelets [#/volume] in Blood [facility] Platelets [#/volume] in Blood [facility] Platelets [#/volume] in Blood [facility] Potassium measurement [facility] Potassium measurement [facility] Potassium measurement [facility] PT Unspecified body region [facility] PT Unspecified body region [facility] Red blood cell count [facility] Red blood cell count [facility] Red blood cell count [facility] Red cell distributio n width determination [facility] Red cell distributio n width determination [facility] Red cell distributio n width determination [facility] Serum chloride measurement [facility] Serum chloride measurement [facility] Serum chloride measurement [facility] Sodium measurement [facility] Sodium measurement [facility] Sodium measurement [facility] End: 11-08-2024 Standard ECG [facility] Comment on above: One Time for 1 Occur rences starting 11/08/2024 until 11/08/2024 Thyroid stimulating hormone measurement [facility] Urea nitrogen [Mass/volume] in Serum or Plasma [facility] Urea nitrogen [Mass/volume] in Serum or Plasma [facility] Urea nitrogen [Mass/volume] in Serum or Plasma [facility] Vancomycin [Mass/vol ume] in Serum or Plasma --trough [facility] XR Hand GE 3 Views [facility] Immunizations Immunization Date Immunization Notes Care Provider Fa cility 08-25-2023 Pfizer Covid-19 (Comirnaty) Dr. Alejandro Rosales MD Work Phone: [facility] 07-25-2022 Covid Pfizer Bivalen t Booster Dr. Alejandro Rosales MD Work Phone: [facility] 05-25-2021 Covid (Pfizer) Dr. Alejandro bishop MD Work Phone: [facility] 01-03-2021 Covid (Moderna) Dr. Alejandro santos MD Work Phone: [facility] 12-01-2020 Covid (Moderna) Dr. Alejandro santos MD Work Phone: [facility] 05-05-2020 influenza virus vaccine, unspecified formulation Xr [place] Work Phone: [place] Payers Date Payer Category Payer Medicare (Managed Care) MEDICARE HUA PPO [id number] 2022 Medicare [id number] 2022 Self-pay [id number] 2017 Medicare MEDICARE MEDICAR E A AND B [id number] 2017-Present [phone] [place] [address] Medicare [id number] 2000 Unknown [id number] 2000 Unknown [facility] [id number] 2000-Present [phone] [address] [address] [place] [address] Indemnity [id number] [id number] 1950 Unknown [id number] 2.16.840.1.159524.3.579. 2.732 1950 Unknown [id number] 2..840.1.135156.3.579. 2.594 Medicare [id number] Medicare MEDICARE PART A B [id number] 8 [id number] Medicare [id number] Unknown [id number] 16.840.1.024353.3.579. 2.462 Unknown [id number] 2.16.840.1.354915.3.579. 2.462 Unknown [id number] 2.16.840.1.598867.3.579. 2.462 Unknown [id number] 2.16.840.1.092682.3.579. 2.462 Unknown [id number] 2.16840.1.239419.3.579. 2.462 Unknown [id number] 2.16.840.1.694378.3.579. 2.462 Unknown [id number] 2.840.1.056300.3.579. 2.462 Unknown [id number] 2.840.1.757586.3.579. 2.462 Unknown [id number] 2.840.1.353475.3.579. 2.462 Unknown [id number] 2.840.1.935275.3.579. 2.462 Unknown [id number] 2.840.1.735806.3.579. 2.462 Unknown [id number] 2.840.1.584519.3.579. 2.462 Unknown [id number] 2.840.1.714483.3.579. 2.462 Unknown [id number] 2.840.1.995848.3.579. 2.462 Unknown [id number] 2.840.1.388240.3.579. 2.462 Unknown [id number] 2.840.1.993478.3.579. 2.462 Unknown [id number] 2.840.1.815397.3.579. 2.462 Unknown [id number] 2.840.1.973737.3.579. 2.462 Unknown [id number] 2.840.1.731296.3.579. 2.462 Unknown [id number] 2.16.840.1.399367.3.579. 2.462 Unknown [id number] 2.16.840.1.314882.3.579. 2.462 Unknown [id number] 2.16.840.1.316874.3.579. 2.462 Unknown [id number] 2.16.840.1.060217.3.579. 2.462 Unknown [id number] 2.16.840.1.192818.3.579. 2.462 Unknown [id number] 2.16.840.1.420612.3.579. 2.462 Unknown [id number] 2.16.840.1.846706.3.579. 2.462 Unknown [id number] 2.16.840.1.021360.3.579. 2.462 Unknown [id number] 2.840.1.698623.3.579. 2.462 Unknown [id number] 2.16840.1.846189.3.579. 2.462 Unknown [id number] 2.16840.1.278130.3.579. 2.462 Unknown [id number] 2.16840.1.221544.3.579. 2.462 Unknown [id number] 2.16840.1.928725.3.579. 2.462 Unknown [id number] 2.16840.1.707858.3.579. 2.462 Unknown [id number] 2.16840.1.561355.3.579. 2.462 Unknown [id number] 2.16.840.1.874856.3.579. 2.462 Unknown [id number] 2.16.840.1.173041.3.579. 2.462 Unknown [id number] 2.16.840.1.388519.3.579. 2.462 Unknown [id number] 2.16840.1.019365.3.579. 2.462 Unknown [id number] 2.16.840.1.120459.3.579. 2.462 Unknown [id number] 2.16.840.1.195255.3.579. 2.462 Unknown [id number] 2.16.840.1.508000.3.579. 2.462 Unknown [id number] 2.16.840.1.846869.3.579. 2.462 Unknown [id number] 2.16.840.1.209624.3.579. 2.462 Unknown [id number] 2.16.840.1.968611.3.579. 2.462 Unknown [id number] 2.16.840.1.213471.3.579. 2.462 Unknown [id number] 2.16.840.1.989705.3.579. 2.462 Unknown [id number] 2.16.840.1.614250.3.579. 2.462 Unknown [id number] 2.16.840.1.626704.3.579. 2.462 Unknown [id number] 2.16.840.1.397069.3.579. 2.462 Unknown [id number] 2.16.840.1.101558.3.579. 2.462 Unknown [id number] 2.16.840.1.518993.3.579. 2.462 Unknown [id number] 2.16.840.1.811006.3.579. 2.462 Unknown [id number] 2.16.840.1.155606.3.579. 2.462 Unknown [id number] 2.16.840.1.299184.3.579. 2.462 Social History Date Type Detail Facility Start: 08-15-2021 End: 02-13-2023 Tobacco smoking status ALIS Unknown if ever smoked [facility] Start: 1950 Sex Assigned At Female [facility] Start: 01-12-2019 End: 04-22-2025 Tobacco smoking status NHIS Ex-smoker [place] End: 08-04-2014 History of tobacco use Current smoker [place] End: 08-04-2014 History of tobacco use Cigarette Smoker [place] Start: 01-12-2019 Tobacco use and exposure Smokeless tobacco non-user [place] Start: 04-06-2021 Alcoholic beverage intake Ex-drinker (finding) [place] Start: 04-06-2021 End: 11-09-2024 History of Social function [facility] Start: 04-06-2021 End: 11-09-2024 Tobacco use panel [facility] National Score (1-100), lower number is lower risk Not on file [facility] Start: 1950 Sex assigned at Not on file [facility] Start: 03-07-2021 End: 04-06-2021 Exposure to SARS-CoV-2 (event) Not sure [place] Start: 11-08-2024 End: 11-08-2024 Sex Female (finding) [facility] NEGATED: Highlighted row Not [facility] Medical Equipment Procedure Code Equipment Code [...] Assessment Result Facility 12-19-2024 Functional status Chair [facility] Work Phone: 12-18-2024 Functional status Activity Abili ty Standby Assist [facility] Work Phone: 12-18-2024 Functional status Ambulates;Bath room Privilege;Back to bed [facility] Work Phone: 11-26-2024 Functional status Chair [facility] Work Phone: Mental Status Date Assessment Result Facility 12-19-2024 Cognitive function Voice/Name [facility] Work Phone: 12-18-2024 Cognitive function Voice/Name [facility] Work Phone: 11-26-2024 Cognitive function Voice/Name [facility] Work Phone: 11-08-2024 Cognitive function Voice/Name [facility] Work Phone: Clinical Notes 04-06-2021 to 04-21-2025 Note Date & Type Note Facility 04-21-2025 Progress note [facility] 03-09-2025 Evaluation note Diagnosis Onset Date Resolution History of embolic stroke chronic March 09, 2025 12:56pm Mediastinal lymphadenopathy acute March 25 3:20pm Obstructive sleep apnea acute A ugust 2024 3:20pm Pulmonary hypertension acute Au aba 2024 3:20pm Shortness of breath acute Augus t 2024 3:20pm (HFpEF) heart failure with preserved ejection fraction chronic April 19, 2025 10:54am COPD (chronic obstructive pulmonary disease) chronic April 10:54am Dyslipidemia chronic April 192024 10:54am History of colon cancer chronic S eptember 2024 10:54am Hypertension chronic April 192024 10:54am PAD (peripheral artery disease) chronic April 19, 2025 10:54am Paroxysmal atrial fibrillation chronic April 19, 2025 10:54am Varicose veins of both legs with edema chronic April 19, 2025 10:54am History of CVA (cerebrovascular accident) resolved April 19, 2025 10:54am Preoperative cardiovascular examination noneactive April 19, 2025 10:54am Mediastinal lymphadenopathy acute April 21, 2025 3:04pm Colon cancer chronic April 212024 3:04pm [facility] Work Phone: 1(393) 605-607408-06-2025 Evaluation note* Diagnosis Onset Date Resolution Status Admit Date History of embolic stroke chronic March 09, 2025 12:56pm Obstructive sleep apnea acute A ugust 2024 3:20pm Pulmonary hypertension acute Au aba 2024 3:20pm Shortness of breath acute Augus t 2024 3:20pm Mediastinal lymphadenopathy chronic March 25, 2025 3:20pm (HFpEF) heart failure with preserved ejection fraction chronic Apr 10:54am COPD (chronic obstructive pulmonary disease) chronic April 10:54am Dyslipidemia chronic April 192024 10:54am History of colon cancer chronic S 2024 10:54am Hypertension chronic April 192024 10:54am PAD (peripheral artery disease) chronic April 19, 2025 10:54am Paroxysmal atrial fibrillation chronic April 19, 2025 10:54am Varicose veins of both legs with edema chronic April 19, 2025 10:54am History of CVA (cerebrovascular accident) resolved 2024 10:54am Preoperative cardiovascular examination noneactive April 19, 2025 10:54am Colon cancer chronic April 212024 3:04pm Mediastinal lymphadenopathy chronic April 21, 2025 3:04pm Colon cancer chronic May 05, 2025 3:52pm Mediastinal lymphadenopathy chronic May 05, 2025 3:52pm [facility] Work Phone: 1(847) 981-203707-10-2025 Radiology Diagnostic study note [facility] Imaging Services [address] [place] [address] Chest without Contrast MR#: [id number] Acct: [id number] Name: ELIZABETH HENLEY Rep #: [id number] : 1950 F 74 From: Nadege Joy MD PCP: Dr. Alejandro Rosales MD Status: REG CLI Study:Chest without Contrast Date of Exam: 02/09/25 Exam# [id number] Ordering Dr: Anu Hernandes ARMORED VEHICLE OFFICER-C PROCEDURE: CHEST WITHOUT CONTRAST, 02/09/2025 REASON FOR EXAM: RESTRICTIVE LUNG DISEASE, SHORTNESS OF BREATH TECHNIQUE: CT chest was performed without IV contrast. Multiplanar reformats were generated. IV contrast: None. RADIATION DOSE SUMMARY: CTDlvol: 11.72 mGy DLP: 454.64 mGycm One or more dose reduction techniques were used (e.g., Automated exposure control, adjustment of the mA and/or kV according to patient size, use of iterative reconstruction technique). COMPARISON: 08/06/2021 FINDINGS: Mild/moderate motion limitation. Note that evaluation of the vasculature, kandice,and soft tissues is limited in the absence of IV contrast. Heart/pericardium: Cardiomegaly.. Mitral annular calcification. Trace to mild calcific coronary atherosclerosis. Trace pericardial fluid. Aorta: Trace to mild calcific atherosclerosis. Pulmonary arteries: Top-normal in caliber.. Lymph nodes: Paratracheal node, 16 mm short axis, previously obscured by artifact but roughly 11 mm. Subcarinal node, 21 mm short axis, previously 14 mm.. Additional enlarged mediastinal nodes present. Lungs/pleura: Lingular RIGHT middle lobe atelectasis/scarring is similar. Mild biapical pleural/parenchymal scarring. Mild interlobular septal thickening. Slightly airspace disease in the RIGHT lateral costophrenic sulcus of the RIGHT lower lobe favorable for atelectasis/scarring. Similar 4 x 3 mm LEFT lower lobe nodule (series 4 image 87). Airways: Mild central bronchial wall thickening is similar. Chest wall: Unremarkable. Upper abdomen: Suboptimally evaluated. Lobulated renal contours with multifocalcortical scarring, ZIVH-[id number]-cult-RIGHT.. Small renal cyst on the RIGHT. Gallbladder not visualized and is presumed to besurgically absent however there are no visible surgical clips. CBD mildly dilated to 10 mm, similar to minimally enlarged from9 mm previously. atherosclerosis. Operative changes of the bowel partially imaged and not well evaluated.. Musculoskeletal: Mild spondylosis. Mild scoliosis. Similar chronic deformity of RIGHT rib and scapula with possible scapular osteochondroma.. CT/Chest without Contrast IMPRESSION: 1. Slightly motion limited noncontrast exam. 2. Mediastinal lymphadenopathy. Given presumed history of colon cancer, this issuspicious for possible loren metastasis. Recommend clinical/oncologic follow-up. Tissue sampling or PET/CT could be considered 3. Cardiomegaly and suspected mild interstitial edema. 4. Mild central bronchial wall thickening may be related to interstitial edema or perhaps mild bronchitis. 5. Slightly increased RIGHT lower lobe airspace disease favorable for atelectasis/scarring. 6. Additional description as above. Reading Location: [id number] CC: Dr. Alejandro Rosales MD; Anu Hernandes NP ~ Media Production Manager: Signed [facility]07-03-2025 Procedure not[address] [facility] Pulmonary Services/Neurology [address] [facility] [place] [address] MR#: [id number] Acct: [id number] Name: ELIZABETH HENLEY Rep #:[id number] : 1950 74 From: Wally Rodriges DO Referring Dr: Anu Hernandes ARMORED VEHICLE OFFICER-C Status: REG CLI Location: PSN Date: Sex: F C PSN 6 Minute Walk Test 6 Minute Walk Test 6 Minute Walk Test: 6 Minute Walk Test PSN:6-Minute Walk Test Start: 02/01/25 13:14 Freq: Status: Active Protocol: RESP.6MINW Document 02/01/25 13:14 NIRU (Rec: 02/01/25 13:22 SFENTON [id number]) 6 Minute Walk Test Date Performed 02/01/25 Time Performed 13:00 Height 5 ft 6 in Weight: 200 lb Weight in Pounds 200.[address]: Anu Hernandes Assistive device None used: Pre-test Oxygen Delivery Room Air Method Pulse Ox (%) 94 Pulse Rate (60-100 67 beats/min) Dyspnea Darrick Scale ( 0 0-10) Exertion Darrick Scale 6 (6-20) 1st minute Oxygen Flow Rate (L/ 2 min) (L/min) Oxygen Delivery Nasal Cannula Method Pulse Ox (%) 92 Pulse Rate (60-100 91 beats/min) 2nd minute Oxygen Delivery Room Air Method Pulse Ox (%) 89 Pulse Rate (60-100 102 H beats/min) 3rd minute Oxygen Delivery Room Air Method Pulse Ox (%) 86 Pulse Rate (60-100 107 H beats/min) 4th minute Oxygen Flow Rate (L/ 2 min) (L/min) Oxygen Delivery Nasal Cannula Method Pulse Ox (%) 96 Pulse Rate (60-100 86 beats/min) 5th minute Oxygen Flow Rate (L/ 2 min) (L/min) Oxygen Delivery Nasal Cannula Method Pulse Ox (%) 94 Pulse Rate (60-100 96 beats/min) 6th minute Oxygen Flow Rate (L/ 2 min) (L/min) Oxygen Delivery Nasal Cannula Method Pulse Ox (%) 93 Pulse Rate (60-100 99 beats/min) Dyspnea Darrick Scale ( 1 0-10) Exertion Darrick Scale 12 (6-20) Post-test Oxygen Flow Rate (L/ 2 min) (L/min) Oxygen Delivery Nasal Cannula Method Pulse Ox (%) 97 Pulse Rate (60-100 76 beats/min) Full Laps Walked 12 Partial Lap, Number 8 of Tiles Walked Total Distance 716 Walked (ft) 02/01/25 13:15 Cardiopulmonary Services by An Ramires Patient started walk on room air, does not have O2 at home. At the 3rd minute, SpO2 86% room air. Placed patient on 2 lpm O2, SpO2 recovered 95%. Walked the remaining 3 minutes. Explained to the patient that she will need oxygen at home and that we want her SpO2 to be 89% or greater for adequate oxygenation. Patientstated that she does not have any trouble at home and wants to be left alone. Patient was cooperative and kind but seemed frustrated with the idea of having oxygen. I explained againthe importance of the oxygen and to be prepared to discuss her concerns and/or objections with her ordering provider. Initialized on 02/01/25 13:15 - END OF NOTE Interpretation Interpretation: The patient ambulated 716 feet over the course of 6 minutes beginning on room air without assistivedevices. Pretesting oxygen saturation was noted to be 94%on room air. With ambulation, the shahida oxygen saturation was 86%, requiring the initiation of 2 L/min to maintain appropriate saturations. Recommendations Recommendations: 2 L/min of supplemental oxygen should be utilized with exertion. 02/03/25 1027 O> Date _ Wally Rodriges DO CC: ~ Date Dictated: 02/03/25 1026 Date Transcribed: 02/03/25 1026 Media Production Manager: Dr. Wally Rodriges, DO Signed [facility]05-22-2025 Evaluation note* Diagnosis Onset Date Resolution Status Admit Date Right wrist pain acute December 2:44pm Obstructive sleep apnea acute M ay 2024 8:21am Pulmonary hypertension acute Ma y 2024 8:21am Shortness of breath acute December 032024 8:21am History of embolic stroke chronic March 09, 2025 12:56pm Mediastinal lymphadenopathy acute March 25, 2025 3:20pm Obstructive sleep apnea acute A ugust 2024 3:20pm Pulmonary hypertension acute Au aba 2024 3:20pm Shortness of breath acute Augus t 2024 3:20pm [facility] Work Phone: 1(754) 150-988405-18-2025 Progress note Author Kevan Jama [facility] Note Date/Time December 19, 2024 11:35 am [facility] Medical Records Department [address] [place] [address] Progress Note - Surgery 12/19/24 1134 MR#: [id number] Acct: [id number] Name: JENNIFERELIZABETH Rep #:[id number] : 1950 74 From: Kevan Jama MD PCP: Dr. Alejandro Rosales MD Status:ADM IN Location: [facility] YH588-3 Subjective Subjective Doing well. No wrist pain [...] (Auto) 75.3 H, Lymph % (Auto) 14.6 L,Petroleum % (Auto) 7.5, Eos % (Auto) 1.9, [...] as OP Charges/Coding Visit Charges Inpatient E&M: 83251 Subs Hosp L1 12/19/24 1135 <Electronically signed by Kevan Jama MD> Cosigner Signature (if applicable): CC: ~ Signed [facility] Work Phone: 1(337) 632-121505-18-2025 Discharge summary [facility] Medical Records Department [address] [place] [address] Discharge Summary 12/19/24 1316 MR#: [id number] Acct: [id number] Name: ELIZABETH HENLEY Rep #:[id number] : 1950 74 From: Shayla Castro MD PCP: Dr. Alejandro Rosales MD Status:ADM IN Location: [place] [address] Providers Date of Admission: 12/17/24 Date of [...] i the ED were BP of 129/66, FL of 82, RR of 14 and temp [...] (Auto) 75.3 H, Lymph % (Auto) 14.6 L,Petroleum % (Auto) 7.5, Eos % (Auto) 1.9, [...] Self Care Charges/Coding Visit Charges Inpatient E&M: 42909 Disch Hosp >30min 12/19/24 1327 Cosigner Signature (if applicable): CC: Dr. Alejandro Rosales MD; Dr. Shayla Castro MD~ Signed [facility]05-18-2025 Discharge summary [facility] Medical Records Department [address] [facility] [place] [address] Instructions for Home/Discharge Instructions 12/19/24 1315 MR#: [id number] Acct: [id number] Name: ELIZABETH HENLEY Rep #:[id number] : 1950 74 From: Shayla Castro MD [...] can be placed): Home, Self Care 12/19/24 1316Nanvelasquez Castro MD CC: Dr. Alejandro Rosales MD; Dr. Kevan Jama MD ~ Signed [facility]-18-[facility] Medical Records Department [address] [place] [address] Progress Note - Surgery 12/19/24 1134 MR#: [id number] Acct: [id number] Name: ELIZABETH HENLEY Rep #:[id number] : 1950 74 From: Kevan Jama MD PCP: Dr. Alejandro Rosales MD Status:ADM IN Location: [facility] RO420-2 Subjective Subjective Doing well. No wrist pain [...] (Auto) 75.3 H, Lymph % (Auto) 14.6 L,Petroleum % (Auto) 7.5, Eos % (Auto) 1.9, [...] as OP Charges/Coding Visit Charges Inpatient E&M: 42987 Subs Hosp L1 12/19/24 1135 Cosigner Signature (if applicable): CC: ~ Signed [facility]05-18-2025 Consult note Author Abhijeet Oakes [facility] Note Date/Time December 19, 2024 1:13a [facility] Medical Records Department [address] [place] [address] Pharmacokinetic/Renal -Consult 12/19/24 0112 MR#: [id number] Acct: [id number] Name: ELIZABETH HENLEY Velasquez Rep #:[id number] : 1950 74 From: Abhijeet Lockett od PCP: Dr. Alejandro Rosales MD Status:ADM IN Location: [place] [address] Consult [facility] has been consulted [...] Signature (if applicable): Date CC: ~ Signed [facility] Work Phone: 1(537) 922-863405-18-2025 Consult note [facility] Medical Records Department [address] [place] [address] Pharmacokinetic/Renal -Consult 12/19/24111 MR#: [id number] Acct: [id number] Name: ELIZABETH HENLEY Rep #:[id number] : 1950 74 From: Abhijeet Lockett od PCP: Dr. Alejandro Rosales MD Status:ADM IN Location: [place] [address] Consult Antibiotic Management Pharmacy has been consulted [...] Signature (if applicable): Date CC: ~ Signed [facility]05-17-2025 Progress note Author Shayla [facility] Note Date/Time December 18, 2024 2:31p m [facility] Medical Records Department [address] [place] [address] Progress Note 12/18/24 1319 MR#: [id number] Acct: [id number] Name: ELIZABETH HENLEY Rep #:[id number] : 1950 74 From: Shayla Castro MD PCP: Dr. Alejandro Rosales MD Status:ADM IN Location: [facility] AE278-5 Subjective Subjective Patient seen and examined. She [...] (Auto) 72.6 H, Lymph % (Auto) 17.3 L,Petroleum % (Auto) 7.5, Eos % (Auto) 1.7, [...] code * Charges/Coding Visit Charges Inpatient E&M: 24427 Subs Hosp L2 12/18/24 1431 <Electronically signed by Shayla Castro MD> Shayla Castro MD Cosigner Signature (if applicable): CC: ~ Signed [facility] Work Phone: 1(424) 202-380005-17-2025 Progress note [facility] Medical Records Department [address] [place] [address] Progress Note 12/18/24 1319 MR#: [id number] Acct: [id number] Name: ELIZABETH HENLEY Rep #:[id number] : 1950 74 From: Shayla Castro MD PCP: Dr. Alejandro Rosales MD Status:ADM IN Location: [place] [address] Subjective Subjective Patient seen and examined. She [...] (Auto) 72.6 H, Lymph % (Auto) 17.3 L,Petroleum % (Auto) 7.5, Eos % (Auto) 1.7, [...] code * Charges/Coding Visit Charges Inpatient E&M: 35652 Subs Hosp L2 12/18/24 1431 Shayla Castro MD Cosigner Signature (if applicable): CC: ~ Signed [facility]05-17-2025 Progress note Author Kevan Jama [facility] Note Date/Time December 18, 2024 8:23a m [facility] Medical Records Department [address] [place] [address] Progress Note 12/18/24 0820 MR#: [id number] Acct: [id number] Name: JENNIFERELIZABETH A Rep #:[id number] : 1950 74 From: Kevan Jama MD PCP: Dr. Alejandro Rosales MD Status:ADM IN Location: [facility] NK405-0 Subjective Subjective Doing well. No pain in [...] (Auto) 74.3 H, Lymph % (Auto) 14.9 L,Petroleum % (Auto) 8.6, Eos % (Auto) 1.1, [...] (Auto) 72.6 H, Lymph % (Auto) 17.3 L,Petroleum % (Auto) 7.5, Eos % (Auto) 1.7, [...] 12/17/24 08:27 IMPRESSION: NEGATIVE WRIST Reading Location: [facility] Physical Exam Narrative Right upper Extremity Inspection: [...] Multi Select Codes Visit Charges Visit Charges: 11176 Subs Hosp L1 12/18/24 0823 <Electronically signed by Kevan Jama MD> Kevan Jama MD Cosigner Signature (if applicable): CC: ~ Signed [facility] Work Phone: 1(866) 443-486005-17-2025 Progress note [facility] Medical Records Department [address] [place] [address] Progress Note 12/18/24 08 MR#: [id number] Acct: [id number] Name: ELIZABETH HENLEY Rep #:[id number] : 1950 74 From: Kevan Jama MD PCP: Dr. Alejandro Rosales MD Status:ADM IN Location: [facility] ZN795-9 Subjective Subjective Doing well. No pain in [...] (Auto) 74.3 H, Lymph % (Auto) 14.9 L,Petroleum % (Auto) 8.6, Eos % (Auto) 1.1, [...] (Auto) 72.6 H, Lymph % (Auto) 17.3 L,Petroleum % (Auto) 7.5, Eos % (Auto) 1.7, [...] 12/17/24 08:27 IMPRESSION: NEGATIVE WRIST Reading Location: [facility] Physical Exam Narrative Right upper Extremity Inspection: [...] Multi Select Codes Visit Charges Visit Charges: 19142 Subs Hosp L1 12/18/24 0823 Kevan Jama MD Cosigner Signature (if applicable): CC: ~ Signed [facility]05-16-2025 History and physical note Author [facility]la [facility] Note Date/Time December 17, 2024 5:05p [facility] Medical Records Department [address] [place] [address] H&P Exam - Hospitalist 12/17/24 1052 MR#: [id number] Acct: [id number] Name: ELIZABETH HENLEY Rep #:[id number] : 1950 74 From: Shayla Castro MD PCP: Dr. Alejandro Rosales MD Status:ADM IN Location: [place] [address] HPI - General General Date of Admission: [...] i the ED were BP of 129/66, FL of 82, RR of 14 and temp [...] done in the ED by ED doctor. [facility] Medical History Pulmonary hypertension Colon cancer Mitral [...] (Auto) 74.3 H, Lymph % (Auto) 14.9 L,Petroleum % (Auto) 8.6, Eos % (Auto) 1.1, [...] 12/17/24 08:27 IMPRESSION: NEGATIVE WRIST Reading Location: [facility] Assessment & Plan Assessment/Plan (1) Acute pain [...] elects to be full code. * Total hqfr-dl-cxrl time 17 minutes. Charges/Coding Visit Charges Inpatient E&M: 07851 Init Hosp L2 12/17/24 1648 <Electronically signed [...] vancomycin and list it as an allergy. 12/17/245<Electronically signed by Shayla Castro MD> Cosigner Signature (if applicable): cc: Dr. Alejandro Rosales MD; Dr. Shayla Castro MD ~* Signed [facility] Work Phone: 1(470) 382-525205-16-2025 Consult note Author Mary Ann Mendez [facility] Note Date/Time December 17, 2024 4:22p [facility] Medical Records Department [address] [place] [address] Pharmacokinetic/Renal -Consult 12/17/24 1621 MR#: [id number] Acct: [id number] Name: ELIZABETH HENLEY Rep #:[id number] : 1950 74 From: Mary Ann Mendez PCP: Dr. Alejandro Rosales MD Status:ADM IN Location: [place] [address] Consult Antibiotic Management Pharmacy has been consulted [...] and adjust dosing as required. 12/17/24 1622 <Electronically signed by Mary Ann Mendez > Date _ Mary Ann Mendez Cosigner Signature (if applicable): Date CC: ~ Signed [facility] Work Phone: 1(886) 288-866905-16-2025 Consult note Author [facility]an [facility] Note Date/Time December 17, 2024 3:47p m [facility] Medical Records Department [address] [place] [address] Consultation - Surgical 12/17/24 1055 MR#: [id number] Acct: [id number] Name: ELIZABETH HENLEY Rep #:[id number] : 1950 74 From: Kevan Jama MD PCP: Dr. Alejandro Rosales MD Status:ADM IN [place] [facility] [id number] Assessment & Plan Assessment/Plan (1) Acute pain [...] not report any changes in her dietrecently [facility] Medical History Pulmonary hypertension Colon cancer Mitral [...] (Auto) 74.3 H, Lymph % (Auto) 14.9 L,Petroleum % (Auto) 8.6, Eos % (Auto) 1.1, [...] 12/17/24 08:27 IMPRESSION: NEGATIVE WRIST Reading Location: [id number] Charges/Coding Visit Charges Office Visits / Consults: 32423 OV L3 New 30min (Patient was seen for a new problem in the emergency department by plastic surgery) 12/17/24 7898 <Electronically signed by Kevan Jama MD> Cosigner Signature (if applicable): CC: Dr. Alejandro Rosales MD~ Signed [facility] Work Phone: 1(237) 891-298005-16-2025 History and physical note [facility] Medical Records Department [address] [place] [address] H&P Exam - Hospitalist 12/17/24 1052 MR#: [id number] Acct: [id number] Name: ELIZABETH HENLEY Rep #:[id number] : 1950 74 From: Shayla Castro MD PCP: Dr. Alejandro Rosales MD Status:ADM IN [place] [facility] [id number] HPI - General General Date of Admission: 12/17/24 Date of Service: 12/17/24 Chief Complaint: right wrist pain HPI Narrative ELIZABETH HELNEY, is a 74 F with a PMH [...] i the ED were BP of 129/66, FL of 82, RR of 14 and temp [...] done in the ED by ED doctor. [facility] Medical History Pulmonary hypertension Colon cancer Mitral [...] (Auto) 74.3 H, Lymph % (Auto) 14.9 L,Petroleum % (Auto) 8.6, Eos % (Auto) 1.1, [...] 12/17/24 08:27 IMPRESSION: NEGATIVE WRIST Reading Location: [id number] Assessment & Plan Assessment/Plan (1) Acute pain [...] elects to be full code. * Total ftex-vb-rzpc time 17 minutes. Charges/Coding Visit Charges Inpatient E&M: 24705 Init Hosp L2 12/17/24 1648 Cosigner Signature [...] MD; Dr. Shayla Castro MD ~* Signed [facility]05-16-2025 Consult note [facility] Medical Records Department [address] [place] [address] Pharmacokinetic/Renal -Consult 12/17/24 1621 MR#: [id number] Acct: [id number] Name: ELIZABETH HENLEY Rep #:[id number] : 1950 74 From: Mary Ann Mendez PCP: Dr. Alejandro Rosales MD Status:ADM [facility] Antibiotic Management Pharmacy has been consulted [...] 12/17/24 1622 > Date _ Mary Ann Dickstaceyike Signature (if applicable): Date CC: ~ Signed [facility]05-16-2025 Consult note [facility] Medical Records Department [address] [place] [address] Consultation - Surgical 12/17/24 1055 MR#: [id number] Acct: [id number] Name: ELIZABETH HENLEY Rep #:[id number] : 1950 74 From: Keavn Jama MD PCP: Dr. Alejandro Rosales MD Status:ADM IN Location: [place] [address] Assessment & Plan Assessment/Plan (1) Acute pain [...] not report any changes in her dietrecently [facility] Medical History Pulmonary hypertension Colon cancer Mitral [...] (Auto) 74.3 H, Lymph % (Auto) 14.9 L,Petroleum % (Auto) 8.6, Eos % (Auto) 1.1, [...] 12/17/24 08:27 IMPRESSION: NEGATIVE WRIST Reading Location: [facility] Charges/Coding Visit Charges Office Visits / Consults: 91061 OV L3 New 30min (Patient was seen for a new problem in the emergency department by plastic surgery) 12/17/24 1547 Cosigner Signature (if applicable): CC: Dr. Alejandro Rosales MD~ Signed [facility]05-16-2025 Discharge summary Author Tang Le [facility] Note Date/Time December 17, 2024 11:12 am [facility] Medical Records Department [address] [place] [address] Emergency Department Summary 12/17/24 MR#: [id number] Acct: [id number] Name: ELIZABETH HENLEY Rep #:[id number] : 1950 74 From: Tang Norris PCP: Dr. Alejandro Rosales MD Status:REG ER Location: ED HPI History of Present Illness Chief Complaint: Upper Extremity Injury Informant: patient and family Narrative Narrative: Vpjuz-gegs-slgavytr female here with daughter for evaluation nontraumatic [...] hospitalist service. I spoke with hospitalist Dr. Castor for admission. EKG returned rate controlled A-fib at 41. Re-evaluation: stable Disposition discussed with patient/family/significant other: Patient and daughter Case discussed with consulting clinician: Plastic/hand surgeon, hospitalist This note was generated with [employer] dictation software. It may contain incorrectwords, spelling, and punctuation that were not noted in checking the note beforesigning. Discharge Plan Dx/Rx/DC Orders Clinical Impression: Acute pain of right wrist, Chronic anticoagulation, History of diabetes mellitus, Atrial fibrillation Disposition Disposition: Acute Care Hospital [facility] What to do if you have Problems For any increased pain, shortness of breath, bleeding, nausea or vomiting, chestpain, or any unexpected problems, contact your Primary Care Provider. Call [facility] ([phone]) or report to the closest Emergency Room. Call 911 if necessary. 12/17/24 1112 <Electronically signed by Tang Norris> Cosigner Signature (if applicable): CC: Dr. Alejandro Rosales MD ~ Signed [facility] Work Phone: 1(626) 143-580205-16-2025 Discharge summary [facility] Medical Records Department [address] [place] [address] Emergency Department Summary 12/17/24 MR#: [id number] Acct: [id number] Name: ELIZABETH HENLEY Rep #:[id number] : 1950 74 From: Tang Norris PCP: Dr. Alejandro Rosales MD Status:REG ER Location: ED HPI History of Present Illness Chief Complaint: Upper Extremity Injury Informant: patient and family Narrative Narrative: Tulxx-lces-yobnwxip female here with daughter for evaluation nontraumatic [...] is a diabetic. Prior similar symptoms: No [facility] Medical History Pulmonary hypertension Colon cancer Mitral [...] for labs including inflammatory markers. Tylenol ordered. 0952: X-ray no effusion noted. Labs white count [...] aspect of the wrist into the joint -ywuxb 1-1/2 inch needle, approximately 0.5 cc yellow [...] surgeon, hospitalist This note was generated with [employer] dictation software. It may contain incorrectwords, spelling, and punctuation that were not noted in checking the note beforesigning. Discharge Plan Dx/Rx/DC Orders Clinical Impression: Acute pain of right wrist, Chronic anticoagulation, History of diabetes mellitus, Atrial fibrillation Disposition Disposition: Acute Care Hospital [facility] What to do if you have Problems For any increased pain, shortness of breath, bleeding, nausea or vomiting, chestpain, or any unexpected problems, contact your Primary Care Provider. Call [facility] ([phone]) or report tothe closest Emergency Room. Call 911 if necessary. 12/17/24 1112 Cosigner Signature (if applicable): CC: Dr. Alejandro Rosales MD ~ Signed [facility]05-16-2025 Radiology Diagnostic study note [facility] Imaging Services [address] [place] [address] Wrist min 3 Views MR#: [id number] Acct: [id number] Name: ELIZABETH HENLEY Rep #: [id number] : 1950 F 74 From: Kvng Singer MD PCP: Dr. Alejandro Rosales MD Status: REG ER Study:Wrist min 3 Views Date of Exam: Exam# [id number] Ordering Dr: Tang Mendiola DO PROCEDURE: WRIST MIN 3 VIEWS 12/17/2024 REASON FOR EXAM: PAIN Medial pain. No history of trauma. TECHNIQUE: 3 view(s) of the right wrist COMPARISON: None FINDINGS: Bones: No visible fracture. No suspicious bone lesion. Joints: Normal alignment. Soft tissues: Soft tissues are unremarkable. Other: RAD/Wrist min 3 Views IMPRESSION: NEGATIVE WRIST Reading Location: [id number] CC: Dr. Alejandro Rosales MD; Dr. Tang Mendiola DO ~ Media Production Manager: Signed [facility]04-25-2025 [facility]04-10-2025 [facility]04-10-2025 Evaluation note* Diagnosis Onset Date Resolution Status Admit Date Colon cancer acute November 11, 2024 6:06pm [...] November 112024 6:06pm Bradycardia chronic November 11, 6:06pm Chronic anticoagulation chronic A 2024 6:06pm COPD (chronic obstructive pulmonary disease) chronic November 11, 025 6:06pm Obesity (BMI 30.0-34.9) chronic A pril 2024 6:06pm PAD (peripheral artery disease) chronic condition nurse indu November 11, 2024 6:06pm Hypophosphatemia resolved November 112024 6:06pm Subtherapeutic international normalized ratio (INR) resolved November 6:06pm (HFpEF) heart failure with preserved ejection fraction inactive Apri l 2024 6:06pm Atrial fibrillation inactive November 11, 2024 6:06pm Diabetes inactive November 11 6:06pm Essential hypertension inactive Ap ril 2024 6:06pm Gout inactive November 11 6:06pm Hypothyroidism inactive November 6:06pm Mitral stenosis inactive November 6:06pm Noncompliance with medicatio n regimen inactive November 11, 2024 6:06pm S/P right hemicolectomy inactive A pri2024 6:06pm Global aphasia acute December 07, 025 9:00am Left acute arterial ischemic stroke, MCA (middle cerebral artery) acute December 07, 2024 9: 00am Right sided weakness acute December 07, 2024 9:00am Atrial fibrillation inactive December 072024 9:00am Colon cancer acute December 07 2:17pm Chronic anticoagulation chronic M ay 2024 2:17pm Colon cancer acute December 09 9:03am Acute pain of right wrist resolved December 17, 2024 11:07am Atrial fibrillation inactive December 022024 11:07am Chronic anticoagulation inactive M ay 2024 11:07am History of diabetes mellitus inactiv e December 17, 2024 11:07am Right wrist pain acute December 2:44pm Obstructive sleep apnea acute M ay 2024 8:21am Pulmonary hypertension acute Ma y 2024 8:21am Shortness of breath acute December 032024 8:21am [facility] Work Phone: 1(284) 886-394704-10-2025 Evaluation note* Diagnosis Onset Date Resolution Status Admit Date Colon cancer acute November 11, 2024 6:06pm Debility acute November 11 6:06pm Global aphasia acute November 6:06pm Hypoxia acute November 11 6:06pm Left acute arterial ischemic stroke, MCA (middle cerebral artery) acute November 11, 2024 6:06pm Pulmonary hypertension acute Ap ril 2024 6:06pm Right sided weakness acute Apr2024 6:06pm Sleep-disordered breathing acute November 11, 2024 6:06pm Visual field cut acute November 112024 6:06pm Bradycardia chronic November 11, 025 6:06pm Chronic anticoagulation chronic A 2024 6:06pm COPD (chronic obstructive pulmonary disease) chronic November 11 025 6:06pm Obesity (BMI 30.0-34.9) chronic A pri2024 6:06pm PAD (peripheral artery disease) chronic condition nurse indu November 11, 2024 6:06pm Hypophosphatemia resolved November 112024 6:06pm Subtherapeutic international normalized ratio (INR) resolved November 6:06pm (HFpEF) heart failure with preserved ejection fraction inactive l 2024 6:06pm Atrial fibrillation inactive November 11, 2024 6:06pm Diabetes inactive November 11 6:06pm Essential hypertension inactive Ap ril 2024 6:06pm Gout inactive November 11 6:06pm Hypothyroidism inactive November 6:06pm Mitral stenosis inactive November 6:06pm Noncompliance with medicatio n regimen inactive November 11, 2024 6:06pm S/P right hemicolectomy inactive A pri2024 6:06pm Global aphasia acute December 07 025 9:00am Left acute arterial ischemic stroke, MCA (middle cerebral artery) acute December 07, 2024 9: 00am Right sided weakness acute December 07, 2024 9:00am Atrial fibrillation inactive December 072024 9:00am Colon cancer acute December 07 2:17pm Chronic anticoagulation chronic M 2024 2:17pm Colon cancer acute December 09 9:03am Acute pain of right wrist resolved December 17, 2024 11:07am Atrial fibrillation inactive December 022024 11:07am Chronic anticoagulation inactive M 2024 11:07am History of diabetes mellitus inactiv e December 17, 2024 11:07am Right wrist pain acute December 2:44pm Obstructive sleep apnea acute M ay 2024 8:21am Pulmonary hypertension acute Ma y 2024 8:21am Shortness of breath acute December 032024 8:21am History of embolic stroke chronic March 09, 2025 12:56pm Obstructive sleep apnea acute A ugust 2024 3:20pm Pulmonary hypertension acute Au aba 2024 3:20pm Shortness of breath acute Augus t 2024 3:20pm [facility] Work Phone: [phone]) [phone] Nurse Note* Nursing Notes - Kennedy Key RN - 11/11/2024 2:12 PM EDT Pt is a 74y/o WF admitted with 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 Pt is being discharged to [facility] today at [facility]. Report was called, and paperwork was faxed. Pt's daughter was provided with AVS, as well. They are aware that Eliquis will start 11/12. Pt has all belongings packed and ready for discharge. She is being driven to facility by her daughter and facility is aware of this. 1430 - Pt was transported off unit via w/c by APPRENTICE PLANT ATTENDANT. Daughter to transport to facility. [facility]04-10-2025 Miscellaneous Notes* Nursing Notes - Kennedy Key RN - 11/11/2024 2:12 PM EDT Pt is a 74y/o WF admitted with 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 Pt is being discharged to [facility] today at [facility]. Report was called, and paperwork was faxed. Pt's daughter was provided with AVS, as well. They are aware that Eliquis will start 11/12. Pt has all belongings packed and ready for discharge. She is being driven to facility by her daughter and facility is aware of this. 1430 - Pt was transported off unit via w/c by APPRENTICE PLANT ATTENDANT. Daughter to transport to facility. * Nursing Notes - Kennedy Key RN - 11/11/2024 2:11 PM EDT Stroke patient education has been reviewed and all required elements are complete and personalized. Cosigned by Kelley Larios RN at 11/11/2024 4:00 PM EDT * Plan of Care - Ramonita Pappas PT - 11/11/2024 10:52 AM EDT Problem: [...] Fowler - 11/10/2024 11:43 AM EDT Problem: REHABILITATION CONSTRUCTION SPECIALIST - Language Goal: Command Following - Patient [...] ability to direct care Outcome: Ongoing Problem: REHABILITATION CONSTRUCTION SPECIALIST - Cognition Goal: Ongoing Assessment - Patient will participate in ongoing dynamic assessment of motor speech, expressive/receptive language, and cognitive- linguistic skills across 1 session to better assess deficits and most appropriately guide REHABILITATION CONSTRUCTION SPECIALIST plan of care Outcome: Ongoing * Plan of Care - Abhijeet Yeung PT - 11/10/2024 10:28 AM EDT Problem: [...] - Patient will perform 5x Sit to line cook 15 seconds or less in order to [...] - Patient will perform 5x Sit to line cook 15 seconds or less in order to [...] Gonzalez MD PGY-2 Neurology documented in [facility] Nurse Note* Nursing Notes - Kennedy Key RN - 11/11/2024 2:11 PM EDT Stroke patient education has been reviewed and all required elements are complete and personalized. Cosigned by Kelley Larios RN at 11/11/2024 4:00 PM EDT [facility]04-10-2025 Hospital Discharge instructions* Discharge Instructions* Marcia Laurent DO - 11/11/2024 12:15 PM EDT Start Eliquis 5 mg every 12 hours on 11/[address] referral for sleep study upon discharge from [facility] Please take these discharge instructions to your [...] you at all times. Stroke Education: visit [email or web address] What are the most common symptoms of [...] all ordered medications [] Avoid non-prescription or udel-fou-rajnqgp medication not cleared by your physician [x] [...] may call the neurovascular doctors office at [phone], if you have questions Mon-Fri between 8:30 am and 4:30 pm. - For off hours or the weekend you may call the office or the hospital locomotive crane operator at and ask for the stroke resident oncology patient navigator to be paged. - If you have any other questions or needs, please call Polly CALIX, RN, Stroke Nurse Navigator at [phone] Mon-Fri between 7:00am and 3:00pm. - Additional assistance may be found by reaching out to our Case Management Office at [phone]. *In the event of an Emergency: If you have a physical or psychiatric emergency call 521 or go to your local emergency department. You should also call your outpatient provider's emergency number. Other reference numbers: [facility] Intake Office at [phone]; [facility] at [phone]; or Suicide Prevention Hotline at 623-745-8991. *Helpful phone numbers: Free Crisis Hotline: 1-094-616-TALK ( ) Suicide Hotline: 780.201.9723 Seniors Suicide Hotline: 790.889.8512 [facility] Youth: 870.412.1231 [facility]: 714.595.6627 (free counseling) [employer] Access Hotline: 927-877-RGIG (081-435-6254) 24-hour crisis text hotline: Text the word 4hope to 195-041 for crisis support. Texting this number is [...] you may qualify for Medicaid/public assistance: The [facility] Department of Job and Family Services can now process morillo (TANF), food (SNAP) and Medicaid Applications over the phone. Please call [phone] ([phone]) and apply over the phone or apply online at www.benefits.[place].gov. Friday-Friday 8am-12pm noon. Medication Assistance Programs [employer] members can buy 100+ common prescriptions for FREE, $3 or $6. Annual membership is $36 for individuals and $72 for families (up to 6 people, including pets). Sign up online or enroll at your nearest pharmacy! [employer], web site can provide a significant number of coupons for medications at a much lower chew. [place] Department of Aging The Department of Aging administers programs and services to meet the needs of older [place]. Services and resources offered per county may include transportation, housekeeping, meals and nutrition, personal care, case management, safety monitoring, home medical equipment, legal services, financial solutions advisor, health and wellness, education, caregiver support, respite care, etc. Call to be connected to the area agency on aging serving your community or visit aging.[place].gov/find-services. Request a consultation with a community resource expert at ltssi.age.[place].gov/ [facility] Stroke Support The [facility] Stroke Support Group is for stroke survivors, friends, and family members. Meets on the Friday of each month from 6:30pm-7:30pm at [facility] ([address]; [place] [address]). Contact Sonam Craig, at [phone] or [email or web address]. If you are outside of the [facility], contact The [place] [employer] at www.stroke.org or 0-646-8-STROKE or for support groups in your area. You may also refer to the Your Care after a Stroke education booklet at go.[facility].edu/warf3028 for additional resources. [facility] History of Present illness Narrative* ABA Concepcion - 11/11/2024 11:24 AM EDT Care Management Discharge Note Selected Continued Care - Admitted Since 11/08/2024 Destination Coordination complete. Service Provider Services Address Phone Fax Patient Preferred [facility] Inpatient [facility] [address] [facility] [address] [phone] -- Transport Request Mode of Transfer: Private Vehicle Discharge Transport ETA: 11/11/2024 @ 2pm Patient medically stable for discharge per physician/medical team. Patient/Oxyacetylene Burner remain inagreement with the discharge plan. Insurance authorization has been received. ISABELLE Epps, VIRTUAL OFFICE ASSISTANT Deputy Fire Marshal Available by Secure Chat * Ramonita Pappas PT - 11/11/2024 10:52 AM EDT Acute [...] Assessment/Intervention: Transfer Assessment/Intervention: Sit to Stand Transfer [place] Level: Sit->Stand: contact guard assist Assistive Device: Sit->Stand: gait belt, armed chair Skilled Rationale: Hand placement, Verbal cues, Full extension to upright positioning/posture, Technique of activity, Cues for increased safety Skilled Intervention/Details: Sit->Stand: recliner x 2, toilet x 1 Stand to Sit Transfer [place] Level: Stand->Sit: contact guard assist Assistive Device: Stand->Sit: gait belt, armed chair Skilled Rationale: Hand placement, Controlled descent for sitting Skilled Intervention/Details: Stand->Sit: cues for proximity to chair Gait/Functional Mobility Assessment/Intervention: Gait Assessment [place] Level: Gait: minimum assist (75% patient effort) Assistive Device: Gait: gait belt, hand held assist Ambulation Distance (Feet): 150 Gait Deviations Identified: decreased chris, decreased gait speed, path deviation Gait Skilled Rationale: verbal, safety to avoid obstacles Skilled Intervention/Details - Gait: right inattention, requiring frequent cues for scanning. Stairs Assessment/Intervention: Stairs Assessment [place] Level: Stair Negotiation: not tested Outcome Score(s): [facility] Basic Mobility Inpatient Short Form Turning over [...] a railin - A Little Assistance CURRENT [facility] Mobility Raw Score: 18 CURRENT [facility] Mobility Functional Limitation: 46.58% Impaired in Basic Mobility Interventions: Intervention 1 Intervention Name: erasmojoshua Details: CGA for toilet transers, eddi hygiene [...] current Physical Therapy Discharge Summary. * Marcia Laurent, DO - 11/10/2024 3:10 PM EDT Images from the original note were not included. NEUROVASCULAR STROKE SERVICE Daily Progress Note IDENTIFYING INFORMATION Elizabeth Henley MR# [id number] 11/10/2024 HISTORY OF PRESENT ILLNESS Elizabeth Henley [...] further evaluation. INTERVAL HISTORY 11/09: admitted to [facility]. 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 Sameera Perez D.O. Vascular Neurology [facility] * ABA Concepcion - 11/10/2024 2:14 PM EDT Placement Plan Expected Discharge Date: 11/12/2024 Referred Level of Care: IPR Barriers: Pre-cert, medical readiness, transportation. Current Referrals and Status 1. [facility] - Available and Reserved Patient and family's preference is able to accept and start pre-cert. One daughter and patient updated at bedside. ISABELLE Epps, VIRTUAL OFFICE ASSISTANT Deputy Fire Marshal Available by Secure Chat * YUMIKO Fowler - 11/10/2024 11:42 AM EDT Acute Care REHABILITATION CONSTRUCTION SPECIALIST Speech/Language/Cognitive Evaluation Best mode of Communication: (nonverbal gestures and facial expressions) Communication Strategies: -Ask conflicting yes/no questions (I.e. Are you in pain? followed by Are you comfortable?) to ensure accurate response. -Provide pt options in vertical field of 2. Discharge Recommendations: Based on the below outcome measures/assessment score(s) and REHABILITATION CONSTRUCTION SPECIALIST clinicaljudgment, discharge destination recommendation is: Inpatient Rehab Facility Barriers to discharge home: Inability to communicate basic wants/needs Supporting factors for discharge setting: Impaired speech and language skills limiting ability to communicate basic wants/needs Acute REHABILITATION CONSTRUCTION SPECIALIST Outcomes Tracking Communicate basic wants and needs?: [...] Subjective information: Seen resting in recliner on REHABILITATION CONSTRUCTION SPECIALIST arrival, daughter present. With cues for sitting upright and washcloth pt sustained alertness throughout. Set up with lunch tray on REHABILITATION CONSTRUCTION SPECIALIST exit. Of note, daughter reporting pt with [...] to Visit: Nursing Lines/Tubes/Drains (Rehab Status): Telemetry REHABILITATION CONSTRUCTION SPECIALIST Existing Precautions/Restrictions: fall Patient History Comments: Elizabeth [...] hospitalization. No recent falls Residence: (mobile home) REHABILITATION CONSTRUCTION SPECIALIST IADL History IADLs: (Ongoing baseline needed, time constraints this date with lunch tray present) *Unclear baseline vision L eye, daughter reporting like blind REHABILITATION CONSTRUCTION SPECIALIST Existing Precautions/Restrictions: fall Respiratory Status: O2 Sat (%): 96 % (11/10 1213) O2 Device: nasal cannula (11/10 114) Flow (L/min): 2 (11/10 114) EXPRESSIVE LANGUAGE: Impaired Task: Imitates Gestures Impaired [...] 0 Asthenia (A): 1 Strain (S): 0 REHABILITATION CONSTRUCTION SPECIALIST Outcomes: Not completed Acute REHABILITATION CONSTRUCTION SPECIALIST Goals Plan of Care by YUMIKO Fowler at 11/10/2024 11:43 AM Version 1 of 1 Problem: REHABILITATION CONSTRUCTION SPECIALIST - Language Goal: Command Following - Patient [...] ability to direct care Outcome: Ongoing Problem: REHABILITATION CONSTRUCTION SPECIALIST - Cognition Goal: Ongoing Assessment - Patient will participate in ongoing dynamic assessment of motor speech, expressive/receptive language, and cognitive- linguistic skills across 1 session to better assess deficits and most appropriately guide REHABILITATION CONSTRUCTION SPECIALIST plan of care Outcome: Ongoing Speech Language Pathologist: YUMKIO Fowler Time In: 1142 Time Out: 1202 Total Visit Time: 20 minutes Total Treatment Time (skilled, billable minutes): 20 minutes Non-billable assistance during session: NA Assisted by during session: NA PPE used during patient interaction: gloves Patient location/status at end of session: chair Patient alarms at end of session: none altered (daughter present) Needs in reach. REHABILITATION CONSTRUCTION SPECIALIST Evaluation and Treatment Time Speech Eval - Sound Production W/Lang Comp and Exp 88444: 20 Upon discontinuation of Acute Care Speech Therapy Services or patient discharge from the hospital this note represents the current Speech Therapy Discharge Summary * YUMIKO Fowler - 11/10/2024 11:41 AM EDT Acute Care Speech Language Pathology Note Received consult for swallow evaluation. However, patient passed [place] Swallow Screening by nursing.Swallow eval by REHABILITATION CONSTRUCTION SPECIALIST will not be completed at this time unless this service notified of change in status or re-consult for swallow eval placed. REHABILITATION CONSTRUCTION SPECIALIST to proceed with speech/language/cognitive evaluationper order. Thank you. No charge Beatrice Valencia MA, [facility]-REHABILITATION CONSTRUCTION SPECIALIST Pager: [phone] License: [email or web address] Email: [email or web address] * Abhijeet Yeung PT - 11/10/2024 10:28 [...] Assessment/Intervention: Transfer Assessment/Intervention: Sit to Stand Transfer [place] Level: Sit->Stand: contact guard assist Assistive Device: Sit->Stand: gait belt, hand held assist Skilled Rationale: Verbal cues, Hand placement, Sequencing, Facilitate anterior shift Skilled Intervention/Details: Sit->Stand: x7 trials Stand to Sit Transfer [place] Level: Stand->Sit: contact guard assist Assistive Device: Stand->Sit: gait belt, armed chair Skilled Rationale: Verbal cues, Hand placement, Controlled descent for sitting Skilled Intervention/Details: Stand->Sit: cues for proximity to chair Gait/Functional Mobility Assessment/Intervention: Gait Assessment [place] Level: Gait: minimum assist (75% patient effort) [...] to Stand Test recorded time: 34.25 seconds [facility] Basic Mobility Inpatient Short Form Turning over [...] railin - A Lot of Assistance [facility] Mobility Raw Score: 17 [facility] Mobility Functional Limitation: 50.57% Impaired in Basic [...] - Patient will perform 5x Sit to line cook 15 seconds or less in order to [...] placement Transfer Assessment/Intervention: Sit to Stand Transfer [place] Level: Sit->Stand: contact guard assist Assistive Device: Sit->Stand: gait belt Skilled Rationale: Hand placement, Verbal cues Toilet Transfer [place] Level: Toilet: minimum assist (75% patient effort) Assistive Device: Toilet: gait belt Skilled Rationale: Hand placement, Verbal cues Functional Mobility: Functional Mobility [place] Level: Functional Mobility/Gait: minimum assist (75% patient [...] to furniture surf due to unsteadiness [facility] Daily Activity Inpatient Short Form Putting on/Taking Off Lower Body Clothin - A Lot of Assistance Bathin - A Lot of Assistance Toiletin - A Lot of Assistance Putting on/Taking Off Upper Body Clothin - A Little Assistance Groomin - A Little Assistance Eatin - A Little Assistance [facility] Activity Raw Score: 15 [facility] Activity Functional Limitation/Modifier: 56.46% Currently Impaired in [...] chair alarm Needs in reach. Time In: 35 Time Out: 999 Total Visit Time: 25 minutes Total Treatment Time (skilled, billable minutes): 25 minutes Upon discontinuation of Acute Care Occupational Therapy Services or patient discharge from the hospital this note represents the current Occupational Therapy Discharge Summary. * YUMIKO Fowler - 11/10/2024 9:32 AM EDT Speech Language Pathology Attempt Note 11/10/2024 REHABILITATION CONSTRUCTION SPECIALIST Therapy Completed: Attempted Attempted Reason: Other (see comments) (PT/OT at bedside, will reattempt later time) YUMIKO Fowler Time In: 931 Time Out: 931 Total Visit Time: 0 minutes Total Treatment Time (skilled, billable minutes): 0 minutes * YUMIKO Alva - 11/09/2024 2:17 PM EDT Speech Language Pathology Attempt Note 11/09/2024 REHABILITATION CONSTRUCTION SPECIALIST Therapy Completed: Attempted Attempted Reason: (pt sleeping; family member requested REHABILITATION CONSTRUCTION SPECIALIST return later) YUMIKO Alva Time In: 1414 Time Out: 1414 Total Visit Time: 0 minutes Total Treatment Time (skilled, billable minutes): 0 minutes * Ramonita Quarles RN - 11/09/2024 1:11 PM EDT Reason for Consult: IPR Consulted By: chart reviewed Level(s) of Care Discussed: IPR Patient and/or Oxyacetylene Burner's Preferred Geographic Area for Discharge: [id number] Patient and/or Oxyacetylene Burner's Preference for Providers to Include? 1.[facility] Patient and/or Oxyacetylene Burner's Preference for Providers to Exclude? 1.none Patient and/or Oxyacetylene Burner's Discussion: Discussed referral process with the patient and/or member service representative. Patient and/or member service representative isagreeable to have placement referral initiated. Ramonita CALIX, RN Clinical Mop Worker Available thru secure [place] or [employer] Please note that I am a float manager intensive care and may not cover the same service every day. Please call the main Care Management office at [phone] for up-to-date coverage. * Ramonita Quarles RN [...] can provide transportation home. Patient currently uses [facility] for medication management.CM awaitingon PT/OT recommendation. Optical Instrument Inspector will continue to follow and assist with discharge planning asneeded. Initial Discharge Planning Expected Discharge Disposition: Inpatient Rehab Facility Transportation Available for Discharge: Ambulance Anticipated DME: unknown at this time Anticipated Services at Discharge: Physical Therapy, Occupational Therapy, Residential Patient Assessment Completed: Initial Legal Next of Kin Does the patient have a Guardian?: No Spouse: No Adult Child(amanda), List All Adult Children: Yes Name and Contact information: Melvina Mistry [phone] Would you like to add additional adult children?: Yes Name and Contact information: Suzan Mullersadafluis a [phone] Referral to Social Work to Identify Legal Next of Kin?: No Reviewed and Updated in Demographics? : Yes Advanced Care Planning Has the patient completed Advance Directives?: Completed, Available in Medical Record Reviewed for accuracy with patient?: Yes Medication Management Does the patient have prescription insurance coverage? : Yes Is the patient on Anticoagulation? : Yes Provider or Clinic that manages Anticoagulation?: [facility] [address] [place] [phone] [facility] [address] [facility] [address] Living Environment and Support System Is the patient from a facility or detention?: No Living Environment: Mobile Home Patient Caregiving [...] care for themselves at home? : Yes Coal Getter Does the patient or member service representative express financial concerns? : No Ramonita CALIX RN Clinical Mop Worker Available thru secure [place] or [employer] Please note that I am a float manager intensive care and may not cover the same service every day. Please call the main Care Management office at [phone] for up-to-date coverage. * YUMIKO Torres - 11/09/2024 9:20 AM EDT Speech Language Pathology Attempt Note 11/09/2024 REHABILITATION CONSTRUCTION SPECIALIST Therapy Completed: Attempted Per RN, anticipating ECHO [...] performance Mobility Assessment: Supine to Sit Mobility [place] Level: Supine->Sit: minimum assist (75% patient effort) Bed Features/Set-up: Supine->Sit: Head of bed elevated Skilled Rationale: Sequencing, Hand placement, Verbal cues Transfer Assessment: Sit to Stand Transfer [place] Level: Sit->Stand: minimum assist (75% patient effort) Assistive Device: Sit->Stand: gait belt Skilled Rationale: Verbal cues, Hand placement, Sequencing Skilled Intervention/Details: Sit->Stand: X 2 trials Functional Mobility: Functional Mobility [place] Level: Functional Mobility/Gait: minimum assist (75% patient effort) Assistive Device: Functional Mobility/Gait: gait belt Functional Mobility Distance: Distance needed to access restroom Functional Mobility Deficits: Activity tolerance, Balance, Generalized weakness Functional Mobility Skilled Rationale: Cues for increased safety, Verbal cues, Technique of activity Skilled Intervention/Details - Functional Mobility/Gait: Cues for scanning [facility] Daily Activity Inpatient Short Form Putting on/Taking Off Lower Body Clothin - A Lot of Assistance Bathin - A Lot of Assistance Toiletin - A Lot of Assistance Putting on/Taking Off Upper Body Clothin - A Lot of Assistance Groomin - A Lot of Assistance Eatin - A Lot of Assistance [facility] Activity Raw Score: 12 [facility] Activity Functional Limitation/Modifier: 66.57% Currently Impaired in [...] of Care by Tiarra Tello OT at 11/09/2024 11:31 AM Version 1 [...] cognition) Mobility Assessment: Supine to Sit Mobility [place] Level: Supine->Sit: minimum assist (75% patient effort) [...] positioning Transfer Assessment: Sit to Stand Transfer [place] Level: Sit->Stand: minimum assist (75% patient effort) Assistive Device: Sit->Stand: gait belt, hand held assist Skilled Rationale: Verbal cues, Hand placement, Sequencing, Full extension to upright positioning/posture, Upright gaze/neck extension Stand to Sit Transfer [place] Level: Stand->Sit: minimum assist (75% patient effort) Assistive Device: Stand->Sit: gait belt, hand held assist Skilled Rationale: Verbal cues, Hand placement Gait/Functional Mobility: Gait Assessment [place] Level: Gait: minimum assist (75% patient effort) [...] requiring frequent cues for scanning. Stairs: [facility] Basic Mobility Inpatient Short Form Turning over [...] railin - A Lot of Assistance [facility] Mobility Raw Score: 17 [facility] Mobility Functional Limitation: 50.57% Impaired in Basic [...] - Patient will perform 5x Sit to line cook 15 seconds or less in order to [...] current Physical Therapy Discharge Summary. * Marcia Laurent, DO - 11/09/2024 6:38 AM EDT Images from the original note were not included. NEUROVASCULAR STROKE SERVICE Daily Progress Note IDENTIFYING INFORMATION Elizabeth Henley MR# [id number] 11/09/2024 HISTORY OF PRESENT ILLNESS Elizabeth Henley [...] further evaluation. INTERVAL HISTORY 11/09: admitted to [facility]. PHYSICAL EXAM General: Laying comfortably in bed; [...] Physical. Sameera Perez D.O. Vascular Neurology [facility] * ABA Knight - 11/08/2024 6:54 PM EDT Care Management Progress Note SW responded to field activated stroke alert. Patient brought in by [employer]. Emergency contacts: None found, although EMS reports that patient's daughter is en route from the [place], [place] area. JASPREET is available for assistance while patient is in the ED. Travis WALTON, VIRTUAL OFFICE ASSISTANT Medical Social Work * Jessie Campbell RP - 11/08/2024 6:31 PM EDT Department of [...] further questions. Name: Jessie Campbell RPH Phone: [phone] Date/Time: 11/08/2024 6:31 PM documented in this [facility] Plan of care note* Plan of Care - Ramonita Pappas PT - 11/11/2024 10:52 AM EDT Problem: [...] safely navigate home and community. Outcome: Progressing [facility]04-10-2025 Hospital course Narrative* Marcia Laurent DO - 11/11/2024 9:18 AM EDT Images from [...] unspecified mechanism 1 tablet 1 tablet Follow-up: [address] [id number] Cosigned by Sameera Perez DO at 11/11/2024 [...] bid tomorrow (11/12). Atorva 40. Discharge to [facility] today. Spent less than 30 minutes on discharge. Sameera Perez D.O. Vascular Neurology [facility] documented in this [facility] Plan of care note* Plan of Care [...] Goal: Effective Urinary Elimination Outcome: Progressing [facility] Plan of care note* Plan of Care - YUMIKO Fowler - 11/10/2024 11:43 AM EDT Problem: REHABILITATION CONSTRUCTION SPECIALIST - Language Goal: Command Following - Patient [...] ability to direct care Outcome: Ongoing Problem: REHABILITATION CONSTRUCTION SPECIALIST - Cognition Goal: Ongoing Assessment - Patient will participate in ongoing dynamic assessment of motor speech, expressive/receptive language, and cognitive- linguistic skills across 1 session to better assess deficits and most appropriately guide REHABILITATION CONSTRUCTION SPECIALIST plan of care Outcome: Ongoing [facility]04-09-2025 Plan of care note* Plan of [...] - Patient will perform 5x Sit to line cook 15 seconds or less in order to demonstrate reduced fall risk. Outcome: Progressing [facility]04-09-2025 Plan of care note* Plan of [...] safety and success during dailyroutine. Outcome: [facility]ing [facility] Plan of care note* Plan of Care [...] Progressing Goal: Effective Urinary Elimination Outcome: [facility]ing [facility] History and physical note* Sameera Perez DO [...] pharmacy check now for chew. Atorva 40. PT/OT/REHABILITATION CONSTRUCTION SPECIALIST. Verify med rec and allergy list. Sameera Perez D.O. Vascular Neurology [facility]04[facility] History and physical note* Sameera Perez DO [...] pharmacy check now for chew. Atorva 40. PT/OT/REHABILITATION CONSTRUCTION SPECIALIST. Verify med rec and allergy list. Sameera Perez D.O. Vascular Neurology [facility] documented in this encounterOS[facility] Plan of care note* Plan of Care [...] safety and success during dailyroutine. Outcome: Ongoing [facility]04-08-2025 Plan of care note* Plan of Care - Abhijeet Yeung, PT - 11/09/2024 8:09 AM EDT Problem: [...] - Patient will perform 5x Sit to line cook 15 seconds or less in order to demonstrate reduced fall risk. Outcome: Ongoing [facility]04-07-2025 Plan of care note* Plan of [...] Progressing Goal: Effective Urinary Elimination Outcome: Progressing [facility]04-07-2025 NoteAcute Coronary Syndrome (ACS): Initial Evaluation and Management: [email or web address] [facility]04-07-2025 Plan of care note* Plan of [...] BYRON. Anh Gonzalez MD PGY-2 Neurology [facility]04[facility] Emergency department Note* Cortez Rodriges RN - 11/08/2024 6:32 PM EDT Bed: E035 Expected date: Expected time: Means of arrival: Comments: 34 [facility]04[facility] Emergency department Note* Cortez Rodriges RN - [...] slurred speech and right-sided weakness. Evaluated at [facility] by stroke network neurologist. NIHSS score 4.CT head and CTA head showed left MCA M1 occlusion. On Coumadin, compliant. Stroke network neurologist recommended TNK for INR <1.7; INR was 1.5. ED physician did not administer TNK. Upon transfer, GCS 14, NIHSS score 3-4, aphasia and slurred speech improved. At [facility], NIHSS score 2-3. Glucose 125. Received Zofran [...] was used for documentation and errors in movie machine operator may have occurreddespite proof reading. Audelia Wood [...] Expected: Armando Henley documented in this encounterOS[facility] Physician Emergency department Note* Audelia Wood MD - 11/08/2024 6:26 PM EDT ED ATTENDING NOTE Chief Complaint: No chief complaint on file. HPI: Elizabeth Henley is a 74 y.o. female History of Present Illness 74-year-old individual presents for stroke evaluation. Last known well state uncertain. Normal conversation at 1430 hours, then slurred speech and right-sided weakness. Evaluated at [facility] by stroke network neurologist. NIHSS score 4.CT head and CTA head showed left MCA M1 occlusion. On Coumadin, compliant. Stroke network neurologist recommended TNK for INR <1.7; INR was 1.5. ED physician did not administer TNK. Upon transfer, GCS 14, NIHSS score 3-4, aphasia and slurred speech improved. At [facility], NIHSS score 2-3. Glucose 125. Received Zofran [...] was used for documentation and errors in movie machine operator may have occurreddespite proof reading. Audelia Wood MD ED Attending Physician Audelia Wood MD 11/08/242033 [facility]04-07-2025 Emergency department Note* Pam Forrest MD [...] medical care. Pam Forrest MD Resident 11/08/24 9755 [facility] Work Phone: [phone] Consult note* Anh Gonzalez MD - 11/08/2024 [...] Extinction and Inattention (Provider) 0 filed on 11/08/2024 182 NIH Total Score (Provider) 6 filed on 11/08/20241820 Is NIH=0 Within 180 min of Last Known Well Time? -- Stroke Scales Flowsheet Row Most Recent Value Modified Vermillion Scale Score Premorbid (MRSS) 3 filed on 11/08/2024 1846 NIH Total Score (Provider) 6 filed on 11/08/2024 1821 Past History No past medical history on [...] ED. Continuous telemetry -PT, OT, Speech and psychosocial rehabilitation counselor consults Ischemic Stroke Core Measures -NIHSS on [...] Perez DO at 11/09/2024 3:16 PM EDT [facility]04-07-2025 Consult note* Anh Gonzalez MD - [...] Level of Conciousness (Provider) 0 filed on 11/08/20241820 NIH LOC Questions (Provider) 2 filed on 11/08/20241820 NIH LOC Commands (Provider) 2 filed on 11/08/20241820 NIH Best Gaze (Provider) 0 filed on 11/08/20241820 NIH Visual (Provider) 0 filed on 11/08/20241820 NIH Facial Palsy (Provider) 0 filed on [...] Scales Flowsheet Row Most Recent Value Modified Vermillion Scale Score Premorbid (MRSS) 3 filed on [...] ED. Continuous telemetry -PT, OT, Speech and psychosocial rehabilitation counselor consults Ischemic Stroke Core Measures -NIHSS on [...] 11/09/2024 3:16 PM EDT documented in this [facility]04-07-2025 Physician Emergency department Note* Pam Forrest MD [...] process. Pam Forrest MD Resident 11/08/24 2333 [facility]04-07-2025 Emergency department Note* Tari Alvarenga RN [...] Pt does take coumadin, unsure last dose. [facility]04-07-2025 Emergency department Note* Cortez Rodriges RN - 11/08/2024 6:05 PM EDT Bed: E034 Expected date: Expected time: Means of arrival: Comments: Expected: Armando Henley [facility]04-07-2025 Evaluation note* Diagnosis Onset Date Resolution Status Admit Date Acute cerebrovascular accide nt (CVA) inactive November 08, 2024 3:18pm Colon cancer acute November 11, 2024 6:06pm [...] November 112024 6:06pm Bradycardia chronic November 11, 025 6:06pm Chronic anticoagulation chronic A pril 2024 6:06pm COPD (chronic obstructive pulmonary disease) chronic November 11, 025 6:06pm Obesity (BMI 30.0-34.9) chronic A pril 2024 6:06pm PAD (peripheral artery disease) chronic condition nurse indu November 11, 2024 6:06pm Hypophosphatemia resolved November 112024 6:06pm Subtherapeutic international normalized ratio (INR) resolved November 6:06pm (HFpEF) heart failure with preserved ejection fraction inactive Apri l 2024 6:06pm Atrial fibrillation inactive November 11, 2024 6:06pm Diabetes inactive November 11 6:06pm Essential hypertension inactive Ap ril 2024 6:06pm Gout inactive November 11 6:06pm Hypothyroidism inactive November 6:06pm Mitral stenosis inactive November 6:06pm Noncompliance with medicatio n regimen inactive November 11, 2024 6:06pm S/P right hemicolectomy inactive A 2024 6:06pm Global aphasia acute December 07 9:00am Left acute arterial ischemic stroke, MCA (middle cerebral artery) acute December 07, 2024 9: 00am Right sided weakness acute December 07, 2024 9:00am Atrial fibrillation inactive December 072024 9:00am Colon cancer acute December 07 2:17pm Chronic anticoagulation chronic M ay 2024 2:17pm Colon cancer acute December 09 9:03am Acute pain of right wrist resolved December 17, 2024 11:07am Atrial fibrillation inactive December 022024 11:07am Chronic anticoagulation inactive ay 2024 11:07am History of diabetes mellitus inactiv e December 17, 2024 11:07am Right wrist pain acute December 2:44pm Obstructive sleep apnea acute M ay 23rd, 2025 8:21am Pulmonary hypertension acute 2024 8:21am Shortness of breath acute December 032024 8:21am [facility] Work Phone: 1(388) 948-484704-07-2025 Radiology Diagnostic study note [facility] Imaging Services [address] [place] [address] STROKE CTA Head AND Neck W/Con MR#: [id number] Acct: [id number] Name: ELIZABETH HENLEY Rep #: [id number] : 1950 F 74 From: Shima Gaston MD PCP: Dr. Alejandro Rosales MD Status: REG ER Study:STROKE CTA Head AND Neck W/Con Date of Exam: 11/08/24 Exam# [id number] Ordering Dr: Breann Maldonado DO PROCEDURE: STROKE [...] telephone at 4:25 p.m.on 11/08/2024. Reading Location: [facility] CC: Dr. Alejandro Rosales MD; Dr. Phillip Maldonado DO ~ Media Production Manager: Signed [facility]04-07-2025 Radiology Diagnostic study note [facility] Imaging Services [address] [place] [address] [id number] STROKE Brain/Head without Cont MR#: [id number] Acct: [id number] Name: ELIZABETH HENLEY Rep #: [id number] : 1950 F 74 From: Shima Gaston MD PCP: Dr. Alejandro Rosales MD Status: [facility] ER Study:STROKE Brain/Head without Cont Date of Exam: 11/08/24 Exam# [id number] Ordering Dr: Breann Maldonado DO EXAM: STROKE [...] ischemic changes and age-related changes. Reading Location: [id number] CC: Dr. Alejandro Rosales MD; Dr. Phillip Maldonado DO ~ Media Production Manager: Signed [facility]02-27-2025 Evaluation note* Diagnosis Onset Date Resolution Status Admit Date Contusion inactive September 30, 2024 2:38pm Acute cerebrovascular accide nt (CVA) inactive November 08, 2024 3:18pm Colon cancer acute November 11, 2024 6:06pm Debility acute November 11 6:06pm Global aphasia acute November 6:06pm Hypoxia acute November 11 6:06pm Left acute arterial ischemic stroke, MCA (middle cerebral artery) acute November 11, 2024 6:06pm Pulmonary hypertension acute Ap ril 2024 6:06pm Right sided weakness acute 2024 6:06pm Sleep-disordered breathing acute November 11, 2024 6:06pm Visual field cut acute November 112024 6:06pm Bradycardia chronic November 11, 025 6:06pm Chronic anticoagulation chronic A pril 2024 6:06pm COPD (chronic obstructive pulmonary disease) chronic November 11, 025 6:06pm Obesity (BMI 30.0-34.9) chronic A pril 2024 6:06pm PAD (peripheral artery disease) chronic condition nurse indu November 11, 2024 6:06pm Hypophosphatemia resolved November 112024 6:06pm Subtherapeutic international normalized ratio (INR) resolved November 6:06pm (HFpEF) heart failure with preserved ejection fraction inactive Apri l 2024 6:06pm Atrial fibrillation inactive November 11, 2024 6:06pm Diabetes inactive November 11 6:06pm Essential hypertension inactive Ap ril 2024 6:06pm Gout inactive November 11 6:06pm Hypothyroidism inactive November 6:06pm Mitral stenosis inactive November 6:06pm Noncompliance with medicatio n regimen inactive November 11, 2024 6:06pm S/P right hemicolectomy inactive A pri2024 6:06pm Global aphasia acute December 07, 9:00am Left acute arterial ischemic stroke, MCA (middle cerebral artery) acute December 07, 2024 9: 00am Right sided weakness acute December 07, 2024 9:00am Atrial fibrillation inactive December 072024 9:00am Colon cancer acute December 07 2:17pm Chronic anticoagulation chronic M ay 2024 2:17pm Colon cancer acute December 09 9:03am Acute pain of right wrist resolved December 17, 2024 11:07am Atrial fibrillation inactive December 022024 11:07am Chronic anticoagulation inactive [facility] 2024 11:07am History of diabetes mellitus inactiv e December 17, 2024 11:07am Right wrist pain acute December 2:44pm Obstructive sleep apnea acute ay 2024 8:21am Pulmonary hypertension acute Ma y 2024 8:21am Shortness of breath acute December 032024 8:21am [facility] Work Phone: 1(866) 245-968402-18-2025 Evaluation note* Diagnosis Onset Date Resolution Status Admit Date Contusion acute September 21, 2024 9:53am Contusion acute September 30, 2024 2:38pm [facility] Work Phone: 1(125) 768-875102-18-2025 Evaluation note* Diagnosis Onset Date Resolution Status [...] November 112024 6:06pm Bradycardia chronic November 11, 025 6:06pm Chronic anticoagulation chronic A pril 2024 6:06pm COPD (chronic obstructive pulmonary disease) chronic November 11, 025 6:06pm Obesity (BMI 30.0-34.9) chronic A pril 2024 6:06pm PAD (peripheral artery disease) chronic condition nurse indu November 11, 2024 6:06pm Hypophosphatemia resolved [...] 2024 6:06pm S/P right hemicolectomy inactive A 2024 6:06pm Atrial fibrillation acute December 072024 [...] diabetes mellitus acute December 17, 2024 11:07am [facility] Work Phone: 1(872) 287-531809-03-2021 NoteHNO ID: [id number] Author: RT Trisha(R) Service: ? Author Type: Drier Tender Naphthalene Type: Progress Notes Filed: 04/06/2021 12:09 PM [...] BY: RT Trisha(R) April 06, 2021 11:46 [facility]09-03-2021 NoteHNO ID: [id number] Author: Jeffrey Robles APRN.SENIOR PROJECT ENGINEER Service: ? Author Type: Nurse Practitioner Type: [...] RELIEF) 50 mcg/actuation nasal spray Use 1 Vernon in each nostril once daily. mometasone-formoterol (DULERA) [...] could represent an are (more content not included)...[facility]09-03-2021 History of Present illness Narrative* Bhakti Bergman, RT(R) - 04/06/2021 11:50 AM EDT Radiology [...] IV DATA: Not applicable SIGNED BY: RT Trisha(Reji) April 06, 2021 11:46 AM documented in this [facility] Author Tang Mendiola [facility] Note Date/Time December 17, 2024 11:12 am [facility] Medical Records Department [address] [place] [address] Emergency Department Summary 12/17/24 MR#: [id number] Acct: [id number] Name: ELIZABETH HENLEY Rep #:[id number] : 1950 74 From: Tang Norris PCP: Dr. Alejandro Rosales MD Status:REG ER Location: ED HPI History of Present Illness Chief Complaint: Upper Extremity Injury Informant: patient and family Narrative Narrative: Kjufu-bnur-qvrepidw female here with daughter for evaluation nontraumatic [...] surgeon, hospitalist This note was generated with [employer] software. It may contain incorrectwords, spelling, and punctuation that were not noted in checking the note beforesigning. Discharge Plan Dx/Rx/DC Orders Clinical Impression: Acute pain of right wrist, Chronic anticoagulation, History of diabetes mellitus, Atrial fibrillation Disposition Disposition: Acute Care Hospital [facility] What to do if you have Problems For any increased pain, shortness of breath, bleeding, nausea or vomiting, chestpain, or any unexpected problems, contact your Primary Care Provider. Call [facility] ([phone]) or report to the closest Emergency Room. Call 911 if necessary. 12/17/24 1112 <Electronically signed by Tang Norris> Cosigner Signature (if applicable): CC: Dr. Alejandro Rosales MD ~ Signed [facility] Work Phone: Discharge summary Author [facility] Note Date/Time December 19, 2024 1:16p m [facility] Medical Records Department [address] [place] [address] Instructions for Home/Discharge Instructions 12/19/24 1315 MR#: [id number] Acct: [id number] Name: ELIZABETH HENLEY Rep #:[id number] : 1950 74 From: Shayla Castro MD [...] MD; Dr. Kevan Jama MD ~ Signed [facility] Work Phone: Discharge summary Author [facility] Note Date/Time December 19, 2024 1:27p [facility] Medical Records Department [address] [place] [address] Discharge Summary 12/19/24 1316 MR#: [id number] Acct: [id number] Name: ELIZABETH HENLEY Rep #:[id number] : 1950 74 From: Shayla Castro MD PCP: Dr. Alejandro Rosales MD Status:ADM IN [facility] Prov[facility] Date of Admission: 12/17/24 Date of [...] i the ED were BP of 129/66, FL of 82, RR of 14 and temp [...] (Auto) 75.3 H, Lymph % (Auto) 14.6 L,Petroleum % (Auto) 7.5, Eos % (Auto) 1.9, [...] Self Care Charges/Coding Visit Charges Inpatient E&M: 43530 Disch Hosp >30min 12/19/24 1327 <Electronically signed by Shayla Castro MD> Cosigner Signature (if applicable): CC: Dr. Alejandro Rosales MD; Dr. Shayla Castro MD~ Signed [facility] Work Phone: evaluation note* Diagnosis Onset Date Resolution Status Colon cancer acute S/P right hemicolectomy acut e Colon cancer acute Colon cancer acute S/P right hemicolectomy acut e [facility] Work Phone: Evaluation noteNo assessment information available [facility] Work Phone: Evaluation note* Diagnosis Onset Date Resolution Status Colon cancer chronic [facility] Work Phone: Evaluation note* Diagnosis Onset Date Resolution Status Hypokalemia acute Colon cancer chronic Colon cancer chronic Colon cancer chronic [facility] Work Phone: Evaluation note* Diagnosis Onset Date Resolution Status Hypokalemia acute Colon cancer chronic Colon cancer chronic Colon cancer chronic Colon cancer chronic Colon cancer chronic [facility] Work Phone: Evaluation note* Diagnosis Onset Date Resolution Status Hypokalemia acute Colon cancer chronic Colon cancer chronic Colon cancer chronic Colon cancer chronic Colon cancer chronic Abnormal gastrointestinal PET scan acute S/P right hemicolectomy acut e Colon cancer chronic [facility] Work Phone: Evaluation note* Diagnosis Foot pain, left Pain in limb documented in this encounter [place]* Diagnosis Stroke- Primary Unspecified cerebral artery occlusion with cerebral infarction Cerebrovascular accident (CVA), unspecified mechanism Type 2 diabetes mellitus with hyperglycemia Type II or unspecified type diabetes mellitus without mention of complication, not stated as uncontrolled documented in this encounter [facility] Author Marc Robbins [facility] Note Date/Time April 21, 2025 3:[address] [place] [address] [address] [place] [address] OFFICE VISIT Date of Service: 04/21/25 1505 MR#: [id number] Acct: [id number] Name: ELIZABETH HENLEY Rep #: [id number] : 1950 From: Marc Robbins MD Age/Sex: 74/F Location: [place] Status: Signed HPI Subjective Date of Service 04/21/25 Chief Complaint F/u for CT chest results. History of Present Illness 74y.o.woman had abnormal Cologuard test. Had colonoscopy on 08/06/2021 which showed proximal nearly obstructing colon mass. Biopsy showed Adenocarcinoma, MMRwas normal. CT C/A/P on 08/06/2021 showed Proximal/ascending Colon mass with no evidence of metastatic disease. CEA on 08/06/2021 was 20.3. She underwent R hemicolectomy on 08/17/2021 for stage IIA(pT3 pN0 M0)disease. CT a/p on 10/07/2022 showed no metastases. CEA was 6, repeat on 10/16/2022 was 8. Had PET/CT on 12/02/2022 showed activity in mesentery and L iliac bone. Bone scan on 12/25/2022 was negative. MRI brain done on 12/04/2022 showed no brain metastases. She was thought to have Post-operative changes in the mesentery. She is on observation. Had a CT chest done on 02/09/2025 which showed new mediastinal nodes. Comes for follow up. Feels well, speech impared because of strokes.. [facility] Medical History History of diabetes mellitus Chronic anticoagulation Atrial fibrillation Pulmonary hypertension Colon cancer Mitral stenosis Gout [...] Chronic combined systolic and diastolic heart failure Surgical History Hx of right hemicolectomy S/P right hemicolectomy Hx of colonoscopy History of hysterectomy History of appendectomy History of cholecystectomy Family History Father Myocardial infarction Cancer lung CVA (cerebral vascular accident) Mother Colon cancer Brother Diabetes CAD (coronary artery disease) open heart surgery Social History household members: other details: 22 year old grandson lives with her, but he works nights. Smoking Status: Former smoker how long ago did patient quit smokin years ago alcohol intake: never substance use type: does not use caffeine: Yes Type: tea Number of servings: 2 Intake Vital Signs 03/25/25 06:41 04/19/25 11:08 04/21/25 15:05 Height 5 ft 6 in 5 ft 6 in 5 ft 6 in Weight: 89.358 kg BMI 31.8 BP 125/68 H Blood Pressure Location Lt brachial Position Sitting Respiration 16 Pulse 74 Pulse Source Monitor Temp 97.9 F Temperature Source Temporal Artery Pulse Oximetry (%) 94 Oxygen Delivery Method room air Intake Supervisor Steffen House Required: No Accompanied by: Sister, grandson Is patient in pain?: No Allergies codeine Allergy (Severe, Verified 04/21/25 15:09) anaphylaxis Medications ?Medication ?Instructions ?Recorded ?Confirmed ?Type acetaminophen 325 mg tablet 650 mg (2 x 325 mg) PO TID PRN 11/25/24 04/21/25 Rx fever/pain #1 TAB albuterol sulfate 90 mcg/actuation 2 puff inhalation Q 4H PRN Wheezing 11/25/24 04/21/25 Rx aerosol inhaler #1 g dapagliflozin propanediol 10 mg 10 mg PO DAILY dm #30 tabs 11/25/24 04/21/25 Rx tablet (Farxiga) fluticasone fur. 200 mcg-umeclid 1 inh inhalation MOE Y sob #1 inh 11/25/24 04/21/25 Rx 62.5 mcg-vilant 25 mcg inhalat.powder (Trelegy Ellipta) fluticasone propionate 50 2 spray intranasal DAILY 04/21/25 Rx mcg/actuation nasal congestion #1 inh spray,suspension levothyroxine 88 mcg tablet 88 mcg PO DAILY THYROID #3 0 tabs 11/25/24 04/21/25 Rx (Euthyrox) apixaban 5 mg tablet (Eliquis) 5 mg PO BID blood thinn er #60 tabs 12/07/24 04/21/25 Rx atorvastatin 40 mg tablet 40 mg PO QHS cholesterol #30 tabs 12/07/24 04/21/25 Rx furosemide 40 mg tablet 40 mg PO QDAY 03/25/2504/21 History ipratropium bromide 21 mcg (0.03 1 - 2 spray intranasa l Q6 PRN 03/31/25 04/21/25 History %) nasal spray Have you fallen in the past year?: No Central Venous Access Central Venous Access: No 02/09/[address]/Chest without Contrast IMPRESSION: 1. Slightly motion limited noncontrast exam. 2. Mediastinal lymphadenopathy. Given presumed history of colon cancer, this issuspicious for possible loren metastasis. Recommend clinical/oncologic follow-up. Tissue sampling or PET/CT could be considered 3. Cardiomegaly and suspected mild interstitial edema. 4. Mild central bronchial wall thickening may be related to interstitial edema or perhaps mild bronchitis. 5. Slightly increased RIGHT lower lobe airspace disease favorable for atelectasis/scarring. 6. Additional description as above. Exam Physical Exam Const alert, oriented x3 and no apparent distress HEENT normocephalic, external ears normal and external nose normal Eyes Eyes Narrative: L strabismus Neck supple Lymph Lymphatic: no lymphadenopathy noted Resp normal respiratory effort and clear to auscultation bilaterally Cardio S1 normal heart sound and S2 normal heart sound GI soft to palpation Back/Spine thoracic and lumbar spine normal to inspection Extremity no clubbing, cyanosis or edema Skin no rashes or lesions noted Neuro moves all extremities Neuro Narrative: Gait slow. Psych mental status grossly normal Coding Level of Care Code Off vis,est,level 4 Exam Problem Focused Diagnoses Malignant neoplasm of ascending colon C18.2 Colon location: ascending Mediastinal lymphadenopathy R59.0 Assessment and Plan Assessment and Plan (1) Colon cancer: Status: Chronic Qualifiers: Colon location: ascending Qualified Code(s): C18.2 - Malignant neoplasmof ascending colon Comment: Right colon adenocarcinoma pT3 pN0 M0-Stage IIA. Tumor invades pericolonic fat, LN 22 negative. On observation. No evidence of disease. Increasing CEA level 6.2 on 10/07/2022. CEA 8 on 10/16/2022. PET/CT shows activity in the left iliac bone and mesentery suggestive of metastatic disease, post surgery site. MRI brain shows chronic vascular changes,calcification/gliosis in the R cerebellum. Bone scan is negative. CT head shows encephalomalacia. CEA on 11/19/2024 was 4.6. Found to have Mediastinal nodes on CT done on 02/09/2025. R/O metastatic colon cancer. Plan: To obtain PET/CT and CEA. RTC 2 weeks. (2) Mediastinal lymphadenopathy: Status: Acute Comment: R/o metastatic colon cancer. Plan: To obtain PET/CT and CEA. Plan Details Follow Up: 2 Weeks Clinical Quality Measures Falls Risk Screening/Assistive Devices Have you fallen in the past year?: No 04/21/25 1531 <Electronically signed by Marc Bolanos> Date _ Marc Robbins MD Cosigner Signature: Date (if applicable) CC: Dr. Alejandro Rosales MD ~ [facility] Work Phone: Reason for referral (narrative)* Diagnostic Procedure Only (Urgent) - Closed Specialty Diagnoses / Procedures Referred By Contac t Referred To Contact XR IMAGING Diagnoses Foot pain, left Procedures XR ANKLE GENERAL 3V AP/LAT/OBL LT X-RAY ANKLE MINIMUM 3 VIEWS Jeffrey Robles APRN.SENIOR PROJECT ENGINEER [address] [place] [address] [place] [address] Referral ID Status Reason Start Date Expiration Date V isits Requested Visits Authorized Closed Auto-Generate d Referral 04/06/2021 05/06/2022 1 1 * Diagnostic Procedure Only (Urgent) - Closed Specialty Diagnoses / Procedures Referred By Contac t Referred To Contact XR IMAGING Diagnoses Foot pain, left Procedures XR FOOT GENERAL 3V AP/LAT/OBL LT X-RAY FOOT MINIMUM 3 VIEWS Jeffrey Robles APRN.SENIOR PROJECT ENGINEER [address] [place] [address] [place] [id number] Referral ID Status Reason Start Date Expiration Date V isits Requested Visits Authorized Closed Auto-Generate d Referral 04/06/2021 05/06/2022 1 1 [facility] (narr[facility])No reason for referral information [facility] Work Phone: Reason for visit Narrative* Diagnostic Procedure Only (Urgent) - Closed Specialty Diagnoses / Procedures Referred By An dubon Referred To Contact XR IMAGING Diagnoses Foot pain, left Procedures XR ANKLE GENERAL 3V AP/LAT/OBL LT X-RAY ANKLE MINIMUM 3 VIEWS Jeffrey Robles APRN.SENIOR PROJECT ENGINEER [address] [place] [address] [place] [address] Referral ID Status Reason Start Date Expiration Date V isits Requested Visits Authorized [id number] Closed Auto-Generate d Referral 04/06/2021 05/06/2022 1 1 [facility] for visit Narrative* Auth/Cert Specialty Diagnoses / Procedures Referred By An dubon Referred To Contact Diagnoses Stroke Stroke (LEVEL A ISCHEMIC STROKE ALERT, LVO) [facility] [address] [place] [address] [facility] [address] [place] [address] Referral ID Status Reason Start Date Expiration Date Visits Re quested Visits Authorized [id number] 1 1 [facility] Summary Purpose Family History No Family [...] Will No August 17 5:49pm Power of Java Software Engineer Yes August 17, 2021 5:49pm Advance Directive Response Recorded Date/ Time Living Will No August 17 4:49pm Power of Java Software Engineer Yes August 17, 2021 4:49pm Advance Directive Response Recorded Date/ Time Living Will No February 13, 2023 9:54am Power of Java Software Engineer Yes February 13 9:54am Advance Directive Response Recorded Date/ Time Living Will No November 08, 2024 3:54pm Do you have a Healthcare Power of Java Software Engineer? No November 08, 2024 3:54pm Documents on File Type Date Recorded Patient Oxyacetylene Burner Expl anation HealthCare Power of Java Software Engineer 11/08/2024 8:30 PM Date Activated Date Inactivated Comments 11/08/2024 9:47 PM Healthcare Agents on File Name Relationship Healthcare Agent Relationshi p Communication Melvina Mistry Child Health Care Agent Suzan Thompson Child [facility] Health Care Agent Advance Directive Response Recorded Date/ Time Living Will No November 08, 2024 3:54pm Do you have a Healthcare Pow er of Java Software Engineer? No November 08, 2024 3:54pm Do you have a Healthcare Pow er of Java Software Engineer? No December 17, 2024 8:15am Living Will Yes November 12, 2024 12:58pm Do you have a Healthcare Pow er of Java Software Engineer? Yes November 12, 2024 12:58pm Name of Medical Power of Java Software Engineer Melvina Mistry, daughter November 12, 2024 12:58pm Advance Directive Response Recorded Date/ Time Living Will No November 08, 2024 3:54pm Do you have a Healthcare Pow er of Java Software Engineer? No November 08, 2024 3:54pm Do you have a Healthcare Pow er of Java Software Engineer? Yes December 17, 2024 12:20pm Living Will Yes November 12, 2024 12:58pm Do you have a Healthcare Pow er of Java Software Engineer? Yes November 12, 2024 12:58pm Name of Medical Power of Java Software Engineer Melvina Mistry, daughter November 12, 2024 12:58pm Advance Directive Response Recorded Date/ Time Do you have a Healthcare Pow er of Java Software Engineer? Yes December 17, 2024 12:20pm Living Will Yes November 12, 2024 12:58pm Do you have a Healthcare Pow er of Java Software Engineer? Yes November 12, 2024 12:58pm Name of Medical Power of Java Software Engineer Melvina Mistry, daughter November 12, 2024 12:58pm Advance Directive Response Recorded Date/ Time Living Will No August 17 5:49pm Do you have a Healthcare Power of Java Software Engineer? Yes August 17, 2021 5:49pm Chief Complaint and Reason for Visit Chief [...] 30, 2024 2:38pm Acute cerebrovascular accident (CVA) Nov 3:18pm Atrial fibrillation November 11, 2024 6:0 [...] 2024 6: 06pm Sleep-disordered breathing November 11, 6:06pm Visual field cut November 11, 2024 [...] PAIN AND SWELLING December 19, 2024 1:16pm Chief Complaint Admit Date 1 W FU September 30, 2024 2:38pm [...] a ttack (TIA December 15, 2024 11:04am RIGHT WRIST PAIN AND SWELLING December 17, 2024 11:07am RIGHT WRIST PAIN AND SWELLING December 18, 2024 8:20am RIGHT WRIST PAIN AND SWELLING December 18, 2024 1:19pm RIGHT WRIST PAIN AND SWELLING December 19, 2024 11:34am RIGHT WRIST PAIN AND SWELLING December 19, 2024 1:16pm FOLLOW UP December 23, 2024 2:44p m Sleep problems December 24, 2024 8:21a m R06.02 - Shortness of breath January 19, 2025 12:57pm MURIEL, COPD, Pulmonary hypertension January 022024 8:16pm STROKE,EXPRESSIVE APHASIA/RX HERE January 032024 12:00pm Reason for Visit Admit Date Contusion September 30, 2024 2:38pm Acute cerebrovascular accident (CVA) Nov 3:18pm Colon cancer November 11, 2024 6:0 6pm Debility November 11, 2024 6:0 6pm Global aphasia November 11, 2024 6:0 6pm Hypoxia November 11, 2024 6:0 6pm Left acute arterial ischemic stroke, MCA (middle cerebral artery) November 11, 2024 6:06pm Pulmonary hypertension November 11, 2024 6:06pm Right sided weakness November 11, 2024 6: 06pm Sleep-disordered breathing November 11 025 6:06pm Visual field cut November 11, [...] eje ction fraction November 11, 2024 6:06pm Atrial fibrillation November 11, 2024 6:0 6pm Diabetes November 11, 2024 6:0 6pm Essential hypertension November 11, 2024 6:06pm Gout November 11, 2024 6:0 6pm Hypothyroidism November 11, 2024 6:0 6pm Mitral stenosis November 11, 2024 6:0 6pm Noncompliance with medication regimen Ap ril 2024 6:06pm S/P right hemicolectomy November 11, 2024 6:06pm Global aphasia December 07, 2024 9:00am Left acute arterial ischemic stroke, MCA (middle cerebral artery) December 07, 2024 9:00am Right sided weakness December 07, 2024 9:00a m Atrial fibrillation December 07, 2024 9:00am Colon cancer December 07, 2024 2:17pm Chronic anticoagulation December 07, 2024 2: 17pm Colon cancer December 09, 2024 9:03am Acute pain of right wrist December 17, 2024 11:07am Atrial fibrillation December 17, 2024 11:07 am Chronic anticoagulation December 17, 2024 1 1:07am History of diabetes mellitus December 17, 2 025 11:07am Right wrist pain December 23, 2024 2:44p m Obstructive sleep apnea December 24, 2024 8 :21am Pulmonary hypertension December 24, 2024 8: 21am Shortness of breath December 24, 2024 8:21a m Chief Complaint Admit Date STROKE November 08, 2024 3:18 pm CVA [...] a ttack (TIA December 15, 2024 11:04am RIGHT WRIST PAIN AND SWELLING December 17, 2024 11:07am RIGHT WRIST PAIN AND SWELLING December 18, 2024 8:20am RIGHT WRIST PAIN AND SWELLING December 18, 2024 1:19pm RIGHT WRIST PAIN AND SWELLING December 19, 2024 11:34am RIGHT WRIST PAIN AND SWELLING December 19, 2024 1:16pm FOLLOW UP December 23, 2024 2:44p m Sleep problems December 24, 2024 8:21a m R06.02 - Shortness of breath January 19, 2025 12:57pm MURIEL, COPD, Pulmonary hypertension January 022024 8:16pm STROKE,EXPRESSIVE APHASIA/RX HERE January 032024 12:00pm R06.02 - Shortness of breath February 01 025 12:52pm R06.02 - Shortness of breath February 03 025 10:26am Reason for Visit Admit Date Acute cerebrovascular accident (CVA) Nov 3:18pm Colon cancer November 11, 2024 6:0 6pm Debility November 11, 2024 6:0 6pm Global aphasia November 11, 2024 6:0 6pm Hypoxia November 11, 2024 6:0 6pm Left acute arterial ischemic stroke, MCA (middle cerebral artery) November 11, 2024 6:06pm Pulmonary hypertension November 11, 2024 6:06pm Right sided weakness November 11, 2024 6: 06pm Sleep-disordered breathing November 11 6:06pm Visual field cut November 11, 2024 [...] eje ction fraction November 11, 2024 6:06pm Atrial fibrillation November 11, 2024 6:0 6pm Diabetes November 11, 2024 6:0 6pm Essential hypertension November 11, 2024 6:06pm Gout November 11, 2024 6:0 6pm Hypothyroidism November 11, 2024 6:0 6pm Mitral stenosis November 11, 2024 6:0 6pm Noncompliance with medication regimen Ap ril 2024 6:06pm S/P right hemicolectomy November 11, 2024 6:06pm Global aphasia December 07, 2024 9:00am Left acute arterial ischemic stroke, MCA (middle cerebral artery) December 07, 2024 9:00am Right sided weakness December 07, 2024 9:00a m Atrial fibrillation December 07, 2024 9:00am Colon cancer December 07, 2024 2:17pm Chronic anticoagulation December 07, 2024 2: 17pm Colon cancer December 09, 2024 9:03am Acute pain of right wrist December 17, 2024 11:07am Atrial fibrillation December 17, 2024 11:07 am Chronic anticoagulation December 17, 2024 1 1:07am History of diabetes mellitus December 17, 2 025 11:07am Right wrist pain December 23, 2024 2:44p m Obstructive sleep apnea December 24, 2024 8 :21am Pulmonary hypertension December 24, 2024 8: 21am Shortness of breath December 24, 2024 8:21a m Chief Complaint Admit Date STROKE November 08, 2024 3:18 pm CVA [...] a ttack (TIA December 15, 2024 11:04am RIGHT WRIST PAIN AND SWELLING December 17, 2024 11:07am RIGHT WRIST PAIN AND SWELLING December 18, 2024 8:20am RIGHT WRIST PAIN AND SWELLING December 18, 2024 1:19pm RIGHT WRIST PAIN AND SWELLING December 19, 2024 11:34am RIGHT WRIST PAIN AND SWELLING December 19, 2024 1:16pm FOLLOW UP December 23, 2024 2:44p m Sleep problems December 24, 2024 8:21a m R06.02 - Shortness of breath January 19, 2025 12:57pm MURIEL, COPD, Pulmonary hypertension January 022024 8:16pm R06.02 - Shortness of breath February 01, 2 025 12:52pm R06.02 - Shortness of breath February 03 025 10:26am RESTRICTIVE LUNG DISEASE. SOB February 09, 2025 12:58pm STROKE,EXPRESSIVE APHASIA/RX HERE February 012024 6:00pm Chief Complaint Admit Date STROKE November 08, 2024 3:18 pm CVA [...] a ttack (TIA December 15, 2024 11:04am RIGHT WRIST PAIN AND SWELLING December 17, 2024 11:07am RIGHT WRIST PAIN AND SWELLING December 18, 2024 8:20am RIGHT WRIST PAIN AND SWELLING December 18, 2024 1:19pm RIGHT WRIST PAIN AND SWELLING December 19, 2024 11:34am RIGHT WRIST PAIN AND SWELLING December 19, 2024 1:16pm FOLLOW UP December 23, 2024 2:44p m Sleep problems December 24, 2024 8:21a m R06.02 - Shortness of breath January 19, 2025 12:57pm MURIEL, COPD, Pulmonary hypertension January 022024 8:16pm R06.02 - Shortness of breath February 01 025 12:52pm R06.02 - Shortness of breath February 03, 2 025 10:26am RESTRICTIVE LUNG DISEASE. SOB February 09, 2025 12:58pm MURIEL February 22, 2025 1:39 pm STROKE,EXPRESSIVE APHASIA/RX HERE February 022024 12:00pm Chief Complaint Admit Date CVA November 11, 2024 6:0 6pm Cerebrovascular [...] a ttack (TIA December 15, 2024 11:04am RIGHT WRIST PAIN AND SWELLING December 17, 2024 11:07am RIGHT WRIST PAIN AND SWELLING December 18, 2024 8:20am RIGHT WRIST PAIN AND SWELLING December 18, 2024 1:19pm RIGHT WRIST PAIN AND SWELLING December 19, 2024 11:34am RIGHT WRIST PAIN AND SWELLING December 19, 2024 1:16pm FOLLOW UP December 23, 2024 2:44p m Sleep problems December 24, 2024 8:21a m R06.02 - Shortness of breath January 19, 2025 12:57pm MURIEL, COPD, Pulmonary hypertension January 022024 8:16pm R06.02 - Shortness of breath February 01, 2 025 12:52pm R06.02 - Shortness of breath February 03, 2 025 10:26am RESTRICTIVE LUNG DISEASE. SOB February 09, 2025 12:58pm MURIEL February 22, 2025 1:39 pm STROKE,EXPRESSIVE APHASIA/RX HERE March 07, 2025 5:00pm 3 M FU March 09, 2025 12: 56pm Reason for Visit Admit Date Colon cancer November 11, 2024 6:0 6pm Debility November 11, 2024 6:0 6pm Global aphasia November 11, 2024 6:0 6pm Hypoxia November 11, 2024 6:0 6pm Left acute arterial ischemic stroke, MCA (middle cerebral artery) November 11, 2024 6:06pm Pulmonary hypertension November 11, 2024 6:06pm Right sided weakness November 11, 2024 6: 06pm Sleep-disordered breathing November 11, 025 6:06pm Visual field cut November 11, [...] eje ction fraction November 11, 2024 6:06pm Atrial fibrillation November 11, 2024 6:0 6pm Diabetes November 11, 2024 6:0 6pm Essential hypertension November 11, 2024 6:06pm Gout November 11, 2024 6:0 6pm Hypothyroidism November 11, 2024 6:0 6pm Mitral stenosis November 11, 2024 6:0 6pm Noncompliance with medication regimen Ap 2024 6:06pm S/P right hemicolectomy November 11, 2024 6:06pm Global aphasia December 07, 2024 9:00am Left acute arterial ischemic stroke, MCA (middle cerebral artery) December 07, 2024 9:00am Right sided weakness December 07, 2024 9:00a m Atrial fibrillation December 07, 2024 9:00am Colon cancer December 07, 2024 2:17pm Chronic anticoagulation December 07, 2024 2: 17pm Colon cancer December 09, 2024 9:03am Acute pain of right wrist December 17, 2024 11:07am Atrial fibrillation December 17, 2024 11:07 am Chronic anticoagulation December 17, 2024 1 1:07am History of diabetes mellitus December 17, 2 025 11:07am Right wrist pain December 23, 2024 2:44p m Obstructive sleep apnea December 24, 2024 8 :21am Pulmonary hypertension December 24, 2024 8: 21am Shortness of breath December 24, 2024 8:21a m Chief Complaint Admit Date CVA November 11, 2024 6:0 6pm Cerebrovascular accident November 26 1:55pm Hypersomnia, unspecified November 26 8:44pm STROKE December 07, 2024 9:00am COLONOSCOPY RECALL December 07, 2024 2:17pm LOST TO F/U December 09, 2024 9:03am Personal history of transient ischemic a ttack (TIA December 15, 2024 11:04am RIGHT WRIST PAIN AND SWELLING December 17, 2024 11:07am RIGHT WRIST PAIN AND SWELLING December 18, 2024 8:20am RIGHT WRIST PAIN AND SWELLING December 18, 2024 1:19pm RIGHT WRIST PAIN AND SWELLING December 19, 2024 11:34am RIGHT WRIST PAIN AND SWELLING December 19, 2024 1:16pm FOLLOW UP December 23, 2024 2:44p m Sleep problems December 24, 2024 8:21a m R06.02 - Shortness of breath January 19, 2025 12:57pm MURIEL, COPD, Pulmonary hypertension January 022024 8:16pm R06.02 - Shortness of breath February 01 025 12:52pm R06.02 - Shortness of breath February 03 025 10:26am RESTRICTIVE LUNG DISEASE. SOB February 09, 2025 12:58pm MURIEL February 22, 2025 1:39 pm 3 M FU March 09, 2025 12: 56pm STROKE,EXPRESSIVE APHASIA/RX HERE March 21, 2025 6:00pm 3 M FU March 25, 2025 3: 20pm Reason for Visit Admit Date Colon cancer November 11, 2024 6:0 6pm Debility November 11, 2024 6:0 6pm Global aphasia November 11, 2024 6:0 6pm Hypoxia November 11, 2024 6:0 6pm Left acute arterial ischemic stroke, MCA (middle cerebral artery) November 11, 2024 6:06pm Pulmonary hypertension November 11, 2024 6:06pm Right sided weakness November 11, 2024 6: 06pm Sleep-disordered breathing November 11 6:06pm Visual field cut November 11, 2024 [...] eje ction fraction November 11, 2024 6:06pm Atrial fibrillation November 11, 2024 6:0 6pm Diabetes November 11, 2024 6:0 6pm Essential hypertension November 11, 2024 6:06pm Gout November 11, 2024 6:0 6pm Hypothyroidism November 11, 2024 6:0 6pm Mitral stenosis November 11, 2024 6:0 6pm Noncompliance with medication regimen Ap ril 2024 6:06pm S/P right hemicolectomy November 11, 2024 6:06pm Global aphasia December 07, 2024 9:00am Left acute arterial ischemic stroke, MCA (middle cerebral artery) December 07, 2024 9:00am Right sided weakness December 07, 2024 9:00a m Atrial fibrillation December 07, 2024 9:00am Colon cancer December 07, 2024 2:17pm Chronic anticoagulation December 07, 2024 2: 17pm Colon cancer December 09, 2024 9:03am Acute pain of right wrist December 17, 2024 11:07am Atrial fibrillation December 17, 2024 11:07 am Chronic anticoagulation December 17, 2024 1 1:07am History of diabetes mellitus December 17, 2 025 11:07am Right wrist pain December 23, 2024 2:44p m Obstructive sleep apnea December 24, 2024 8 :21am Pulmonary hypertension December 24, 2024 8: 21am Shortness of breath December 24, 2024 8:21a m History of embolic stroke March 09 12:56pm Obstructive sleep apnea March 25 3:20pm Pulmonary hypertension March 25, 2025 3:20pm Shortness of breath March 25, 2025 3: 20pm Chief Complaint Admit Date FOLLOW UP December 23, 2024 2:44p m Sleep problems December 24, 2024 8:21a m R06.02 - Shortness of breath January 19, 2025 12:57pm MURIEL, COPD, Pulmonary hypertension January 022024 8:16pm R06.02 - Shortness of breath February 01 2 025 12:52pm R06.02 - Shortness of breath February 03 2 025 10:26am RESTRICTIVE LUNG DISEASE. SOB February 09, 2025 12:58pm MURIEL February 22, 2025 1:39 pm 3 M FU March 09, 2025 12: 56pm 3 M FU March 25, 2025 3: 20pm G47.33 - Obstructive sleep apnea (adult) (pediatri April 05, 2025 1:00pm STROKE,EXPRESSIVE APHASIA/RX HERE Sept2024 11:00am RE-EST/STROKE (SELF) April 19 10:54am Reason for Visit Admit Date Right wrist pain December 23, 2024 2:44p m Obstructive sleep apnea December 24, 2024 8 :21am Pulmonary hypertension December 24, 2024 8: 21am Shortness of breath December 24, 2024 8:21a m History of embolic stroke March 09 12:56pm Mediastinal lymphadenopathy March 25, 2025 3:20pm Obstructive sleep apnea March 25 3:20pm Pulmonary hypertension March 25, 2025 3:20pm Shortness of breath March 25, 2025 3: 20pm Chief Complaint Admit Date R06.02 - Shortness of breath January 19, 2025 12:57pm MURIEL, COPD, Pulmonary hypertension January 022024 8:16pm R06.02 - Shortness of breath February 01, 025 12:52pm R06.02 - Shortness of breath February 03 2 025 10:26am RESTRICTIVE LUNG DISEASE. SOB February 09, 2025 12:58pm MURIEL February 22, 2025 1:39 pm 3 M FU March 09, 2025 12: 56pm 3 M FU March 25, 2025 3: 20pm G47.33 - Obstructive sleep apnea (adult) (pediatri April 05, 2025 1:00pm RE-EST/STROKE (SELF) April 19 10:54am INT LAB ORDER April 19, 2025 11:44am STROKE,EXPRESSIVE APHASIA/RX HERE Septem 2024 6:00pm F/U REVIEW CT April 21, 2025 3:04pm COLORECTAL April 26, 2025 9:00am EORDER April 26, 2025 11:44am Reason for Visit Admit Date History of embolic stroke March 09 12:56pm Mediastinal lymphadenopathy March 25, 2025 3:20pm Obstructive sleep apnea March 25 3:20pm Pulmonary hypertension March 25, 2025 3:20pm Shortness of breath March 25, 2025 3: 20pm (HFpEF) heart failure with preserved eje ction fraction April 19, 2025 10:54am COPD (chronic obstructive pulmonary dise ase) April 19, 2025 10:54am Dyslipidemia April 19, 2025 10:54am History of colon cancer April 19, 2025 10:54am Hypertension April 19, 2025 10:54am PAD (peripheral artery disease) Septemb r 2024 10:54am Paroxysmal atrial fibrillation April 19, 2025 10:54am Varicose veins of both legs with edema S eptember 2024 10:54am History of CVA (cerebrovascular accident ) April 19, 2025 10:54am Preoperative cardiovascular examination April 19, 2025 10:54am Mediastinal lymphadenopathy April 212024 3:04pm Colon cancer April 21, 2025 3:04pm Chief Complaint Admit Date R06.02 - Shortness of breath January 19, 2025 12:57pm MURIEL, COPD, Pulmonary hypertension January 022024 8:16pm R06.02 - Shortness of breath February 01, 025 12:52pm R06.02 - Shortness of breath February 03, 025 10:26am RESTRICTIVE LUNG DISEASE. SOB February 09, 2025 12:58pm MURIEL February 22, 2025 1:39 pm 3 M FU March 09, 2025 12: 56pm 3 M FU March 25, 2025 3: 20pm G47.33 - Obstructive sleep apnea (adult) (pediatri April 05, 2025 1:00pm RE-EST/STROKE (SELF) April 19 10:54am INT LAB ORDER April 19, 2025 11:44am STROKE,EXPRESSIVE APHASIA/RX HERE Sept2024 6:00pm F/U REVIEW CT April 21, 2025 3:04pm COLORECTAL April 26, 2025 9:00am EORDER April 26, 2025 11:44am 2 WEEKS LABS PRIOR REVIEW PET May 3:52pm Reason for Visit Admit Date History of embolic stroke March 09 12:56pm Obstructive sleep apnea March 25 3:20pm Pulmonary hypertension March 25, 2025 3:20pm Shortness of breath March 25, 2025 3: 20pm Mediastinal lymphadenopathy March 25, 2025 3:20pm (HFpEF) heart failure with preserved eje ction fraction April 19, 2025 10:54am COPD (chronic obstructive pulmonary dise ase) April 19, 2025 10:54am Dyslipidemia April 19, 2025 10:54am History of colon cancer April 19, 2025 10:54am Hypertension April 19, 2025 10:54am PAD (peripheral artery disease) Septembe r 2024 10:54am Paroxysmal atrial fibrillation April 19, 2025 10:54am Varicose veins of both legs with edema S eptember 2024 10:54am History of CVA (cerebrovascular accident ) April 19, 2025 10:54am Preoperative cardiovascular examination April 19, 2025 10:54am Colon cancer April 21, 2025 3:04pm Mediastinal lymphadenopathy April 212024 3:04pm Colon cancer May 05, 2025 3: 52pm Mediastinal lymphadenopathy May 05, 2025 3:52pm Additional Source Comments INFORMATION SOURCE (unrecogn ized section and content) DATE CREATED AUTHOR 04/24/2021 [employer] ([place]) DATE CREATED AUTHOR AUTHOR'S ORGANIZ ATION 09/07/2021 [facility] DATE CREATED AUTHOR AUTHOR'S ORGANIZ ATION 11/10/2024 [employer] [facility] DATE CREATED AUTHOR AUTHOR'S ORGANIZ ATION 11/16/2024 [facility] DATE CREATED AUTHOR AUTHOR'S ORGANIZ ATION 05/24/2025 [facility] Goals (unrecognized section and content) Goals [...] Rosales MD Primary Care Provider, Referring P rovider Active Dr. Marc Robbins MD Attending Provider Active Team Status: Active Member Role Status Dates Dr. Alejandro Rosales MD Primary Care Provider Active Dr. Marc Robbins MD Attending Provider, Referring Pro vider Active Team Status: Inactive Member Role Status Dates Dr. Alejandro Rosales MD Primary Care Provider, Referring P rovider Active Dr. Michelle Paige MD Attending Provider Active Advertising Coordinator Relationship Specialty Start Date End Date Alejandro Rosales MD [address] [place] [id number] PCP - General Family Medicine 12/25/18 Team [...] November 08, 2024 End: November 08, 2024 Advertising Coordinator Relationship Specialty Start Date End Date Alejandro Rosales MD [address] [place] [address] PCP - General Family Medicine 11/09/24 Team [...] December 15, 2024 Dr. Ada Soliman , Attending Provider Act tom Start: December 15, 2024 Dr. Ada Soliman DO Referring Provider Act tom Start: December [...] Start: December 19, 2024 Dr. Tang Mendiola , Emergency Provider Active Start : December 19, 2024 Dr. Shayla Castro MD Admit Provider Active St art: December 19, 2024 Dr. Shayla Castro MD Attending Provider Active Start: December 19, 2024 Dr. Shayla Castro MD Other Provider Active St art: December 19, 2024 Dr. Kevan Jama MD Other Provider Active Star t: December 19, 2024 Team Status: Inactive Member Role Status Dates Dr. Alejandro Rosales MD Primary Care Provider Active Start: December 07, 2024 End: December 07, 2024 JOAQUIN MontesinosC Attending Provider Active S tart: December 07, 2024 End: December 07, 2024 Dr. Ada Soliman , Referring Provider Act tom Start: December 07, 2024 End: December 07, 2024 Team Status: Inactive Member Role Status Dates Dr. Alejandro Rosales MD Primary Care Provider Active Start: December 23, 2024 End: December 23, 2024 Dr. Alejandro Rosales MD Referring Provider Active St art: December 23, 2024 End: December 23, 2024 Dr. Kevan Jama MD Attending Provider Active Start: December 23, 2024 End: December 23, 2024 Team Status: Inactive Member Role Status Dates Dr. Alejandro Rosales MD Primary Care Provider Active Start: December 24, 2024 End: December 24, 2024 Dr. Alejandro Rosales MD Referring Provider Active St art: December 24, 2024 End: December 24, 2024 JOAQUIN AlanC Attending Provider Active Start: December 24, 2024 End: December 24, 2024 Team Status: Inactive Member Role Status Dates Dr. Alejandro Rosales MD Primary Care Provider Active Start: January 19, 2025 End: January 19, 2025 Anu Hernandes NP-C Attending Provider Active Start: January 19, 2025 End: January 19, 2025 Anu Hernandes NP-Jeremias Referring Provider Active Start: January 19, 2025 End: January 19, 2025 Team Status: Active Member Role Status Dates Dr. Alejandro Rosales MD Primary Care Provider Active Start: January 20, 2025 Anu Hernandes NP-C Attending Provider Active Start: January 20, 2025 Anu Hernandes NP-C Referring Provider Active Start: January 20, 2025 Team Status: Active Member Role Status Dates Dr. Alejandro Rosales MD Primary Care Provider Active Start: January 21, 2025 Dr. Ada Soliman DO Attending Provider Act tom Start: January 21, 2025 Dr. Ada Soliman DO Referring Provider Act tom Start: January 21, 2025 Team Status: Inactive Member Role Status Dates Dr. Alejandro Rosales MD Primary Care Provider Active Start: January 20, 2025 End: January 20, 2025 Anu Hernandes NP-C Attending Provider Active Start: January 20, 2025 End: January 20, 2025 Anu Hernandes NP-C Referring Provider Active Start: January 20, 2025 End: January 20, 2025 Team Status: Active Member Role/Relationship Status Dates Dr. Alejandro Rosales MD Primary Care Provider Active Team Status: Inactive Member Role/Relationship Status Dates Dr. Alejandro Rosales MD Primary Care Provider Active Start: November 08, 2024 End: November 08, 2024 Dr. Phillip Maldonado DO Attending Provider Active Start: November 08, 2024 End: November 08, 2024 Dr. Phillip Maldonado DO Emergency Provider Active Start: November 08, 2024 End: November 08, 2024 Team Status: Inactive Member Role/Relationship Status Dates Dr. Alejandro Rosales MD Primary [...] End: November 26, 2024 Dr. Ada Soliman , DO Attending Provider Act tom Start: November 11, 2024 End: November 26, 2024 Team Status: Active Member Role/Relationship Status Dates Dr. Alejandro Rosales MD Primary Care Provider Active Start: November 15, 2024 Dr. Rg Ponce MD Admit Provider Active Star t: November 15, 2024 Dr. Rg Ponce MD Other Provider Active Star t: November 15, 2024 Dr. Ada Soliman , DO Attending Provider Act tom Start: November 15, 2024 Dr. Ada Soliman DO Other Provider Active Start: November 15, 2024 Team Status: Active Member Role/Relationship Status Dates Dr. Alejandro Rosales MD Primary [...] November 17, 2024 Team Status: Active Member Role/Relationship Status Dates Dr. Alejandro Rosales MD Primary [...] November 19, 2024 Team Status: Active Member Role/Relationship Status Dates Dr. Alejandro Rosales MD Primary [...] November 22, 2024 Team Status: Active Member Role/Relationship Status Dates Dr. Alejandro Rosales MD Primary [...] November 23, 2024 Team Status: Active Member Role/Relationship Status Dates Dr. Alejandro Rosales MD Primary [...] November 26, 2024 Team Status: Inactive Member Role/Relationship Status Dates Dr. Alejandro Rosales MD Primary Care Provider Active Start: November 26, 2024 End: November 26, 2024 Dr. Ada Soliman DO Attending Provider Act tom Start: November 26, 2024 End: November 26, 2024 Dr. Ada Soliman DO Referring Provider Act tom Start: November 26, 2024 End: November 26, 2024 Team Status: Inactive Member Role/Relationship Status Dates Dr. Alejandro Rosales MD Primary Care Provider Active Start: December 07, 2024 End: December 07, 2024 JAZMINE Montesinos Attending Provider Active S tart: December 07, 2024 End: December 07, 2024 Dr. Ada Soliman DO Referring Provider Act tom Start: December 07, 2024 End: December 07, 2024 Team Status: Inactive Member Role/Relationship Status Dates Dr. Alejandro Rosales MD Primary Care Provider Active Start: December 07, 2024 End: December 07, 2024 Dr. Alejandro Rosales MD Referring Provider Active St art: December 07, 2024 End: December 07, 2024 Dr. Michelle Paige MD Attending Provider Active Start: December 07, 2024 End: December 07, 2024 Team Status: Inactive Member Role/Relationship Status Dates Dr. Alejandro Rosales MD Primary Care Provider Active Start: December 09, 2024 End: December 09, 2024 Dr. Alejandro Rosales MD Referring Provider Active St art: December 09, 2024 End: December 09, 2024 Dr. Marc Robbins MD Attending Provider Active S tart: December 09, 2024 End: December 09, 2024 Team Status: Inactive Member Role/Relationship Status Dates Dr. Alejandro Rosales MD Primary Care Provider Active Start: December 15, 2024 End: December 15, 2024 Dr. Jamey Harrington MD Attending Provider Active Start: December 15, 2024 End: December 15, 2024 Dr. Jamey Harrington MD Referring Provider Active Start: December 15, 2024 End: December 15, 2024 Team Status: Inactive Member Role/Relationship Status Dates Dr. Alejandro Rosales MD Primary [...] December 17, 2024 Team Status: Active Member Role/Relationship Status Dates Dr. Alejandro Rosales MD Primary [...] December 18, 2024 Team Status: Active Member Role/Relationship Status Dates Dr. Alejandro Rosales MD Primary Care Provider Active Start: December 18, 2024 Dr. Tang Le , DO Emergency Provider Active Start : December 18, 2024 Dr. Shayla Castro MD Admit Provider Active St art: December 18, 2024 Dr. Shayla Castro MD Attending Provider Active Start: December 18, 2024 Dr. Shayla Castro MD Other Provider Active St art: December 18, 2024 Dr. Kevan Jama MD Other Provider Active Star t: December 18, 2024 Team Status: Active Member Role/Relationship Status Dates Dr. Alejandro Rosales MD Primary Care Provider Active Start: December 19, 2024 Dr. Tang Mendiola DO Emergency Provider Active Start : December 19, 2024 Dr. Shalya Castro MD Admit Provider Active St art: December 19, 2024 Dr. Shayla Castro MD Other Provider Active St art: December 19, 2024 Dr. Kevan Jama MD Attending Provider Active Start: December 19, 2024 Dr. Kevan Jama MD Other Provider Active Star t: December 19, 2024 Team Status: Active Member Role/Relationship Status Dates Dr. Alejandro Rosales MD Primary Care Provider Active Start: December 19, 2024 Dr. Tang Mendiola , DO Emergency Provider Active Start : December 19, 2024 Dr. Shayla Castro MD Admit Provider Active St art: December 19, 2024 Dr. Shayla Castro MD Attending Provider Active Start: December 19, 2024 Dr. Shayla Castro MD Other Provider Active St art: December 19, 2024 Dr. Kevan Jama MD Other Provider Active Star t: December 19, 2024 Team Status: Inactive Member Role/Relationship Status Dates Dr. Alejandro Rosales MD Primary Care Provider Active Start: December 23, 2024 End: December 23, 2024 Dr. Alejandro Rosales MD Referring Provider Active St art: December 23, 2024 End: December 23, 2024 Dr. Kevan Jama MD Attending Provider Active Start: December 23, 2024 End: December 23, 2024 Team Status: Inactive Member Role/Relationship Status Dates Dr. Alejandro Rosales MD Primary Care Provider Active Start: December 24, 2024 End: December 24, 2024 Dr. Alejandro Rosales MD Referring Provider Active St art: December 24, 2024 End: December 24, 2024 Anu Hernandes NP-C Attending Provider Active Start: December 24, 2024 End: December 24, 2024 Team Status: Inactive Member Role/Relationship Status Dates Dr. Alejandro Rosales MD Primary Care Provider Active Start: January 19, 2025 End: January 19, 2025 Anu Hernandes NP-C Attending Provider Active Start: January 19, 2025 End: January 19, 2025 Anu Hernandes NP-C Referring Provider Active Start: January 19, 2025 End: January 19, 2025 Team Status: Inactive Member Role/Relationship Status Dates Dr. Alejandro Rosales MD Primary Care Provider Active Start: January 20, 2025 End: January 20, 2025 Anu Hernandes NP-C Attending Provider Active Start: January 20, 2025 End: January 20, 2025 Anu Hernandes [employer]ED VEHICLE OFFICER-C Referring Provider Active Start: January 20, 2025 End: January 20, 2025 Team Status: Active Member Role/Relationship Status Dates Dr. Alejandro Rosales MD Primary Care Provider Active Start: January 28, 2025 Dr. Ada Soliman DO Attending Provider Act tom Start: January 28, 2025 Dr. Ada Soliman DO Referring Provider Act tom Start: January 28, 2025 Team Status: Inactive Member Role/Relationship Status Dates Dr. Alejandro Rosales MD Primary Care Provider Active Start: February 01, 2025 End: February 01, 2025 Anu Hernandes NP-C Attending Provider Active Start: February 01, 2025 End: February 01, 2025 Anu Hernandes NP-C Referring Provider Active Start: February 01, 2025 End: February 01, 2025 Team Status: Active Member Role/Relationship Status Dates Dr. Alejandro Rosales MD Primary Care Provider Active Start: February 03, 2025 Anu Hernandes NP-C Referring Provider Active Start: February 03, 2025 Anu Hernandes NP-C Other Provider Active St art: February 03, 2025 Dr. Wally Rodriges DO Attending Provider Active S tart: February 03, 2025 Team Status: Inactive Member Role/Relationship Status Dates Dr. Alejandro Rosales MD Primary Care Provider Active Start: February 01, 2025 End: February 01, 2025 Anu Hernandes [employer] VEHICLE OFFICER-C Attending Provider Active Start: February 01, 2025 End: February 01, 2025 Anu Hernandes [employer] VEHICLE OFFICER-C Referring Provider Active Start: February 01, 2025 End: February 01, 2025 Team Status: Active Member Role/Relationship Status Dates Dr. Alejandro Rosales MD Primary Care Provider Active Start: February 03, 2025 Anu Hernandes [employer] VEHICLE OFFICER-C Referring Provider Active Start: February 03, 2025 Anu Hernandes [employer] VEHICLE OFFICER-C Other Provider Active St art: February 03, 2025 Dr. Wally Rodriges , Attending Provider Active S tart: February 03, 2025 Team Status: Inactive Member Role/Relationship Status Dates Dr. Alejandro Rosales MD Primary Care Provider Active Start: February 09, 2025 End: February 09, 2025 Anu Hernandes NP-C Attending Provider Active Start: February 09, 2025 End: February 09, 2025 Anu Hernandes NP-C Referring Provider Active Start: February 09, 2025 End: February 09, 2025 Team Status: Active Member Role/Relationship Status Dates Dr. Alejandro Rosales MD Primary Care Provider Active Start: February 16, 2025 Dr. Ada Soliman DO Attending Provider Act tom Start: February 16, 2025 Dr. Ada Soliman DO Referring Provider Act tom Start: February 16, 2025 Team Status: Inactive Member Role/Relationship Status Dates Dr. Alejandro Rosales MD Primary Care Provider Active Start: February 22, 2025 End: February 22, 2025 Anu Hernandes NP-C Attending Provider Active Start: February 22, 2025 End: February 22, 2025 Team Status: Active Member Role/Relationship Status Dates Dr. Alejandro Rosales MD Primary Care Provider Active Start: February 23, 2025 Dr. Ada Soliman DO Attending Provider Act tom Start: February 23, 2025 Dr. Ada Soliman DO Referring Provider Act tom Start: February 23, 2025 Team Status: Active Member Role/Relationship Status Dates Dr. Alejandro Rosales MD Primary Care Provider Active Start: February 25, 2025 Dr. Alejandro Rosales MD Attending Provider Active St art: February 25, 2025 Dr. Alejandro Rosales MD Referring Provider Active St art: February 25, 2025 Team Status: Inactive Member Role/Relationship Status Dates Dr. Alejandro Rosales MD Primary Care Provider Active Start: February 25, 2025 End: February 25, 2025 Dr. Alejandro Rosales MD Attending Provider Active St art: February 25, 2025 End: February 25, 2025 Dr. Alejandro Rosales MD Referring Provider Active St art: February 25, 2025 End: February 25, 2025 Team Status: Inactive Member Role/Relationship Status Dates Dr. Alejandro Rosales MD Primary [...] November 26, 2024 Team Status: Active Member Role/Relationship Status Dates Dr. Alejandro Rosales MD Primary [...] November 15, 2024 Team Status: Active Member Role/Relationship Status Dates Dr. Alejandro Rosales MD Primary [...] November 17, 2024 Team Status: Active Member Role/Relationship Status Dates Dr. Alejandro Rosales MD Primary [...] November 19, 2024 Team Status: Active Member Role/Relationship Status Dates Dr. Alejandro Rosales MD Primary [...] November 22, 2024 Team Status: Active Member Role/Relationship Status Dates Dr. Alejandro Rosales MD Primary [...] November 23, 2024 Team Status: Active Member Role/Relationship Status Dates Dr. Alejandro Rosales MD Primary [...] November 26, 2024 Team Status: Inactive Member Role/Relationship Status Dates Dr. Alejandro Rosales MD Primary Care Provider Active Start: November 26, 2024 End: November 26, 2024 Dr. Ada Soliman DO Attending Provider Act tom Start: November 26, 2024 End: November 26, 2024 Dr. Ada Soliman DO Referring Provider Act tom Start: November 26, 2024 End: November 26, 2024 Team Status: Inactive Member Role/Relationship Status Dates Dr. Alejandro Rosales MD Primary Care Provider Active Start: December 07, 2024 End: December 07, 2024 JAZMINE Montesinos Attending Provider Active S tart: December 07, 2024 End: December 07, 2024 Dr. Ada Soliman DO Referring Provider Act tom Start: December 07, 2024 End: December 07, 2024 Team Status: Inactive Member Role/Relationship Status Dates Dr. Alejandro Rosales MD Primary Care Provider Active Start: December 07, 2024 End: December 07, 2024 Dr. Alejandro Rosales MD Referring Provider Active St art: December 07, 2024 End: December 07, 2024 Dr. Michelle Paige MD Attending Provider Active Start: December 07, 2024 End: December 07, 2024 Team Status: Inactive Member Role/Relationship Status Dates Dr. Alejandro Rosales MD Primary Care Provider Active Start: December 09, 2024 End: December 09, 2024 Dr. Alejandro Rosales MD Referring Provider Active St art: December 09, 2024 End: December 09, 2024 Dr. Marc Robbins MD Attending Provider Active S tart: December 09, 2024 End: December 09, 2024 Team Status: Inactive Member Role/Relationship Status Dates Dr. Alejandro Rosales MD Primary Care Provider Active Start: December 15, 2024 End: December 15, 2024 Dr. Jamey Harrington MD Attending Provider Active Start: December 15, 2024 End: December 15, 2024 Dr. Jamey Harrington MD Referring Provider Active Start: December 15, 2024 End: December 15, 2024 Team Status: Inactive Member Role/Relationship Status Dates Dr. Alejandro Rosales MD Primary [...] December 17, 2024 Team Status: Active Member Role/Relationship Status Dates Dr. Alejandro Rosales MD Primary [...] December 18, 2024 Team Status: Active Member Role/Relationship Status Dates Dr. Alejandro Rosales MD Primary [...] December 18, 2024 Team Status: Active Member Role/Relationship Status Dates Dr. Alejandro Rosales MD Primary [...] December 19, 2024 Team Status: Active Member Role/Relationship Status Dates Dr. Alejandro Rosales MD Primary [...] Star t: December 19, 2024 Team Status: Inactive Member Role/Relationship Status Dates Dr. Alejandro Rosales MD Primary Care Provider Active Start: December 23, 2024 End: December 23, 2024 Dr. Alejandro Rosales MD Referring Provider Active St art: December 23, 2024 End: December 23, 2024 Dr. Kevan Jama MD Attending Provider Active Start: December 23, 2024 End: December 23, 2024 Team Status: Inactive Member Role/Relationship Status Dates Dr. Alejandro Rosales MD Primary Care Provider Active Start: December 24, 2024 End: December 24, 2024 Dr. Alejandro Rosales MD Referring Provider Active St art: December 24, 2024 End: December 24, 2024 JOAQUIN AlanC Attending Provider Active Start: December 24, 2024 End: December 24, 2024 Team Status: Inactive Member Role/Relationship Status Dates Dr. Alejandro Rosales MD Primary Care Provider Active Start: January 19, 2025 End: January 19, 2025 JAZMINE Alan Attending Provider Active Start: January 19, 2025 End: January 19, 2025 JAZMINE Alan Referring Provider Active Start: January 19, 2025 End: January 19, 2025 Team Status: Inactive Member Role/Relationship Status Dates Dr. Alejandro Rosales MD Primary Care Provider Active Start: January 20, 2025 End: January 20, 2025 JAZMINE Alan Attending Provider Active Start: January 20, 2025 End: January 20, 2025 JAZMINE Alan Referring Provider Active Start: January 20, 2025 End: January 20, 2025 Team Status: Inactive Member Role/Relationship Status Dates Dr. Alejandro Rosales MD Primary Care Provider Active Start: February 01, 2025 End: February 01, 2025 JAZMINE Alan Attending Provider Active Start: February 01, 2025 End: February 01, 2025 Anu Hernandes NP-C Referring Provider Active Start: February 01, 2025 End: February 01, 2025 Team Status: Active Member Role/Relationship Status Dates Dr. Alejandro Rosales MD Primary Care Provider Active Start: February 03, 2025 Anu Hernandes NP-C Referring Provider Active Start: February 03, 2025 Anu Hernandes [employer]IC[employer] OFFICER-C Other Provider Active St art: February 03, 2025 Dr. Wally Rodriges DO Attending Provider Active S tart: February 03, 2025 Team Status: Inactive Member Role/Relationship Status Dates Dr. Alejandro Rosales MD Primary Care Provider Active Start: February 09, 2025 End: February 09, 2025 Anu Hernandes NP-C Attending Provider Active Start: February 09, 2025 End: February 09, 2025 Anu Hernandes NP-C Referring Provider Active Start: February 09, 2025 End: February 09, 2025 Team Status: Inactive Member Role/Relationship Status Dates Dr. Alejandro Rosales MD Primary Care Provider Active Start: February 22, 2025 End: February 22, 2025 Anu Hernandes NP-C Attending Provider Active Start: February 22, 2025 End: February 22, 2025 Team Status: Inactive Member Role/Relationship Status Dates Dr. Alejandro Rosales MD Primary Care Provider Active Start: February 25, 2025 End: February 25, 2025 Dr. Alejandro Rosales MD Attending Provider Active St art: February 25, 2025 End: February 25, 2025 Dr. Alejandro Rosales MD Referring Provider Active St art: February 25, 2025 End: February 25, 2025 Team Status: Active Member Role/Relationship Status Dates Dr. Alejandro Rosales MD Primary Care Provider Active Start: March 07, 2025 Dr. Ada Soliman DO Attending Provider Act tom Start: March 07, 2025 Dr. Ada Soliman DO Referring Provider Act tom Start: March 07, 2025 Team Status: Inactive Member Role/Relationship Status Dates Dr. Alejandro Rosales MD Primary Care Provider Active Start: March 09, 2025 End: March 09, 2025 Dr. Alejandro Rosales MD Referring Provider Active St art: March 09, 2025 End: March 09, 2025 Dr. Marc Kumari MD Attending Provider Active Start: March 09, 2025 End: March 09, 2025 Team Status: Active Member Role/Relationship Status Dates Dr. Alejandro Rosales MD Primary [...] November 26, 2024 Team Status: Inactive Member Role/Relationship Status Dates Dr. Alejandro Rosales MD Primary Care Provider Active Start: November 26, 2024 End: November 26, 2024 Dr. Ada Soliman DO Attending Provider Act tom Start: November 26, 2024 End: November 26, 2024 Dr. Ada Soliman DO Referring Provider Act tom Start: November 26, 2024 End: November 26, 2024 Team Status: Inactive Member Role/Relationship Status Dates Dr. Alejandro Rosales MD Primary Care Provider Active Start: December 07, 2024 End: December 07, 2024 JAZMINE Montesinos Attending Provider Active S tart: December 07, 2024 End: December 07, 2024 Dr. Ada Soliman DO Referring Provider Act tom Start: December 07, 2024 End: December 07, 2024 Team Status: Inactive Member Role/Relationship Status Dates Dr. Alejandro Rosales MD Primary Care Provider Active Start: December 07, 2024 End: December 07, 2024 Dr. Alejandro Rosales MD Referring Provider Active St art: December 07, 2024 End: December 07, 2024 Dr. Michelle Paige MD Attending Provider Active Start: December 07, 2024 End: December 07, 2024 Team Status: Inactive Member Role/Relationship Status Dates Dr. Alejandro Rosalse MD Primary Care Provider Active Start: December 09, 2024 End: December 09, 2024 Dr. Alejandro Rosales MD Referring Provider Active St art: December 09, 2024 End: December 09, 2024 Dr. Marc Robbins MD Attending Provider Active S tart: December 09, 2024 End: December 09, 2024 Team Status: Inactive Member Role/Relationship Status Dates Dr. Alejandro Rosales MD Primary Care Provider Active Start: December 15, 2024 End: December 15, 2024 Dr. Jamey Harrington MD Attending Provider Active Start: December 15, 2024 End: December 15, 2024 Dr. Jamey Harrington MD Referring Provider Active Start: December 15, 2024 End: December 15, 2024 Team Status: Inactive Member Role/Relationship Status Dates Dr. Alejandro Rosales MD Primary [...] December 17, 2024 Team Status: Active Member Role/Relationship Status Dates Dr. Alejandro Rosales MD Primary [...] December 18, 2024 Team Status: Active Member Role/Relationship Status Dates Dr. Alejandro Rosales MD Primary Care Provider Active Start: December 18, 2024 Dr. Tang Mendiola DO Emergency Provider Active Start : December 18, 2024 Dr. Shayla Castro MD Admit Provider Active St art: December 18, 2024 Dr. Shayla Castro MD Attending Provider Active Start: December 18, 2024 Dr. Shayla Castro MD Other Provider Active St art: December 18, 2024 Dr. Kevna Jama MD Other Provider Active Star t: December 18, 2024 Team Status: Active Member Role/Relationship Status Dates Dr. Alejandro Rosales MD Primary [...] December 19, 2024 Team Status: Active Member Role/Relationship Status Dates Dr. Alejandro Rosales MD Primary [...] Star t: December 19, 2024 Team Status: Inactive Member Role/Relationship Status Dates Dr. Alejandro Rosales MD Primary Care Provider Active Start: December 23, 2024 End: December 23, 2024 Dr. Alejandro Rosales MD Referring Provider Active St art: December 23, 2024 End: December 23, 2024 Dr. Kevan Jama MD Attending Provider Active Start: December 23, 2024 End: December 23, 2024 Team Status: Inactive Member Role/Relationship Status Dates Dr. Alejandro Rosales MD Primary Care Provider Active Start: December 24, 2024 End: December 24, 2024 Dr. Alejandro Rosales MD Referring Provider Active St art: December 24, 2024 End: December 24, 2024 JAZMINE Alan Attending Provider Active Start: December 24, 2024 End: December 24, 2024 Team Status: Inactive Member Role/Relationship Status Dates Dr. Alejandro Rosales MD Primary Care Provider Active Start: January 19, 2025 End: January 19, 2025 Anu M Rufener , ARMORED VEHICLE OFFICER-C Attending Provider Active Start: January 19, 2025 End: January 19, 2025 Anu Hernandes ARMORED VEHICLE OFFICER-C Referring Provider Active Start: January 19, 2025 End: January 19, 2025 Team Status: Inactive Member Role/Relationship Status Dates Dr. Alejandro Rosales MD Primary Care Provider Active Start: January 20, 2025 End: January 20, 2025 Anu Hernandes ARMOR[employer] VEHICLE OFFICER-C Attending Provider Active Start: January 20, 2025 End: January 20, 2025 Anu Hernandes ARMORED VEHICLE OFFICER-C Referring Provider Active Start: January 20, 2025 End: January 20, 2025 Team Status: Inactive Member Role/Relationship Status Dates Dr. Alejandro Rosales MD Primary Care Provider Active Start: February 01, 2025 End: February 01, 2025 Anu Hernandes ARM[employer] VEHICLE OFFICER-C Attending Provider Active Start: February 01, 2025 End: February 01, 2025 Anu Hernandes ARM[employer] VEHICLE OFFICER-C Referring Provider Active Start: February 01, 2025 End: February 01, 2025 Team Status: Active Member Role/Relationship Status Dates Dr. Alejandro Rosales MD Primary Care Provider Active Start: February 03, 2025 Anu Hernandes ARM[employer] VEHICLE OFFICER-C Referring Provider Active Start: February 03, 2025 Anu Hernandes NP-C Other Provider Active St art: February 03, 2025 Dr. Wally Rodriges DO Attending Provider Active S tart: February 03, 2025 Team Status: Inactive Member Role/Relationship Status Dates Dr. Alejandro Rosales MD Primary Care Provider Active Start: February 09, 2025 End: February 09, 2025 Anu Hernandes ARMOR[employer] VEHICLE OFFICER-C Attending Provider Active Start: February 09, 2025 End: February 09, 2025 Anu Hernandes ARM[employer] VEHICLE OFFICER-C Referring Provider Active Start: February 09, 2025 End: February 09, 2025 Team Status: Inactive Member Role/Relationship Status Dates Dr. Alejandro Rosales MD Primary Care Provider Active Start: February 22, 2025 End: February 22, 2025 Anu Hernandes ARMOR[employer] VEHICLE OFFICER-C Attending Provider Active Start: February 22, 2025 End: February 22, 2025 Team Status: Inactive Member Role/Relationship Status Dates Dr. Alejandro Rosales MD Primary Care Provider Active Start: February 25, 2025 End: February 25, 2025 Dr. Alejandro Rosales MD Attending Provider Active St art: February 25, 2025 End: February 25, 2025 Dr. Alejandro Rosales MD Referring Provider Active St art: February 25, 2025 End: February 25, 2025 Team Status: Inactive Member Role/Relationship Status Dates Dr. Alejandro Rosales MD Primary Care Provider Active Start: March 09, 2025 End: March 09, 2025 Dr. Alejandro Rosales MD Referring Provider Active St art: March 09, 2025 End: March 09, 2025 Dr. Marc Kumari MD Attending Provider Active Start: March 09, 2025 End: March 09, 2025 Team Status: Active Member Role/Relationship Status Dates Dr. Alejandro Rosales MD Primary Care Provider Active Start: March 21, 2025 Dr. Ada Soliman DO Attending Provider Act tom Start: March 21, 2025 Dr. Ada Soliman DO Referring Provider Act tom Start: March 21, 2025 Team Status: Inactive Member Role/Relationship Status Dates Dr. Alejandro Rosales MD Primary Care Provider Active Start: March 25, 2025 End: March 25, 2025 Dr. Alejandro Rosales MD Referring Provider Active St art: March 25, 2025 End: March 25, 2025 JAZMINE Alan Attending Provider Active Start: March 25, 2025 End: March 25, 2025 Team Status: Inactive Member Role/Relationship Status Dates Dr. Alejandro Rosales MD Primary Care Provider Active Start: December 23, 2024 End: December 23, 2024 Dr. Alejandro Rosales MD Referring Provider Active St art: December 23, 2024 End: December 23, 2024 Dr. Kevan Jama MD Attending Provider Active Start: December 23, 2024 End: December 23, 2024 Team Status: Inactive Member Role/Relationship Status Dates Dr. Alejandro Rosales MD Primary Care Provider Active Start: December 24, 2024 End: December 24, 2024 Dr. Alejandro Rosales MD Referring Provider Active St art: December 24, 2024 End: December 24, 2024 JAZMINE Alan Attending Provider Active Start: December 24, 2024 End: December 24, 2024 Team Status: Inactive Member Role/Relationship Status Dates Dr. Alejandro Rosales MD Primary Care Provider Active Start: January 19, 2025 End: January 19, 2025 Anu Hernandes ARM[employer]ED VEHICLE OFFICER-C Attending Provider Active Start: January 19, 2025 End: January 19, 2025 Anu Hernandes , ARM[employer] VEHICLE OFFICER-C Referring Provider Active Start: January 19, 2025 End: January 19, 2025 Team Status: Inactive Member Role/Relationship Status Dates Dr. Alejandro Rosales MD Primary Care Provider Active Start: January 20, 2025 End: January 20, 2025 Anu Hernandes ARMORED VEHICLE OFFICER-C Attending Provider Active Start: January 20, 2025 End: January 20, 2025 Anu Hernandes ARM[employer] VEHICLE OFFICER-C Referring Provider Active Start: January 20, 2025 End: January 20, 2025 Team Status: Inactive Member Role/Relationship Status Dates Dr. Alejandro Rosales MD Primary Care Provider Active Start: February 01, 2025 End: February 01, 2025 Anu Hernandes ARM[employer]ED VEHICLE OFFICER-C Attending Provider Active Start: February 01, 2025 End: February 01, 2025 Anu Hernandes , ARM[employer]ED VEHICLE OFFICER-C Referring Provider Active Start: February 01, 2025 End: February 01, 2025 Team Status: Active Member Role/Relationship Status Dates Dr. Alejandro Rosales MD Primary Care Provider Active Start: February 03, 2025 Anu Hernandes ARM[employer] VEHICLE OFFICER-C Referring Provider Active Start: February 03, 2025 Anu Hernandes ARM[employer] VEHICLE OFFICER-C Other Provider Active St art: February 03, 2025 Dr. Wally Rodriges DO Attending Provider Active S tart: February 03, 2025 Team Status: Inactive Member Role/Relationship Status Dates Dr. Alejandro Rosales MD Primary Care Provider Active Start: February 09, 2025 End: February 09, 2025 Anu Hernandes ARM[employer] VEHICLE OFFICER-C Attending Provider Active Start: February 09, 2025 End: February 09, 2025 Anu Hernandes , ARM[employer]ED VEHICLE OFFICER-C Referring Provider Active Start: February 09, 2025 End: February 09, 2025 Team Status: Inactive Member Role/Relationship Status Dates Dr. Alejandro Rosales MD Primary Care Provider Active Start: February 22, 2025 End: February 22, 2025 JAZMINE Alan Attending Provider Active Start: February 22, 2025 End: February 22, 2025 Team Status: Inactive Member Role/Relationship Status Dates Dr. Alejandro Rosales MD Primary Care Provider Active Start: February 25, 2025 End: February 25, 2025 Dr. Alejandro Rosales MD Attending Provider Active St art: February 25, 2025 End: February 25, 2025 Dr. Alejandro Rosales MD Referring Provider Active St art: February 25, 2025 End: February 25, 2025 Team Status: Inactive Member Role/Relationship Status Dates Dr. Alejandro Rosales MD Primary Care Provider Active Start: March 09, 2025 End: March 09, 2025 Dr. Alejandro Rosales MD Referring Provider Active St art: March 09, 2025 End: March 09, 2025 Dr. Marc Kumari MD Attending Provider Active Start: March 09, 2025 End: March 09, 2025 Team Status: Inactive Member Role/Relationship Status Dates Dr. Alejandro Rosales MD Primary Care Provider Active Start: March 25, 2025 End: March 25, 2025 Dr. Alejandro Rosales MD Referring Provider Active St art: March 25, 2025 End: March 25, 2025 JAZMINE Alan Attending Provider Active Start: March 25, 2025 End: March 25, 2025 Team Status: Active Member Role/Relationship Status Dates Dr. Alejandro Rosales MD Primary Care Provider Active Start: April 05, 2025 JAZMINE Alan Attending Provider Active Start: April 05, 2025 JAZMINE Alan Referring Provider Active Start: April 05, 2025 Team Status: Active Member Role/Relationship Status Dates Dr. Alejandro Rosales MD Primary Care Provider Active Start: April 08, 2025 Dr. Ada Soliman DO Attending Provider Active Start: April Dr. Ada Soliman DO Referring Provider Active Start: April Team Status: Inactive Member Role/Relationship Status Dates Dr. Alejandro Rosales MD Primary Care Provider Active Start: April 19, 2025 End: April 19, 2025 Dr. Alejandro Rosales MD Referring Provider Active St art: April 19, 2025 End: April 19, 2025 Dr. Chris Hand MD Attending Provider Active Start: April 19, 2025 End: April 19, 2025 Team Status: Active Member Role/Relationship Status Dates Dr. Alejandro Rosales MD Primary care physician Active Team Status: Inactive Member Role/Relationship Status Dates Dr. Alejandro Rosales MD Primary care physician Active Start: January 19, 2025 End: January 19, 2025 Anu Hernandes [employer]HIC[employer] OFFICER-C Attending physician Active Start: January 19, 2025 End: January 19, 2025 Anu Hernandes ARM[employer] VEHICLE OFFICER-C Referring Provider Active Start: January 19, 2025 End: January 19, 2025 Team Status: Inactive Member Role/Relationship Status Dates Dr. Alejandro Rosales MD Primary care physician Active Start: January 20, 2025 End: January 20, 2025 Anu Hernandes NP-C Attending physician Active Start: January 20, 2025 End: January 20, 2025 Anu Hernandes [employer] VEHICLE OFFICER-C Referring Provider Active Start: January 20, 2025 End: January 20, 2025 Team Status: Inactive Member Role/Relationship Status Dates Dr. Alejandro Rosales MD Primary care physician Active Start: February 01, 2025 End: February 01, 2025 Anu Hernandes [employer] VEHICLE OFFICER-C Attending physician Active Start: February 01, 2025 End: February 01, 2025 Anu Hernandes [employer] VEHICLE OFFICER-C Referring Provider Active Start: February 01, 2025 End: February 01, 2025 Team Status: Active Member Role/Relationship Status Dates Dr. Alejandro Rosales MD Primary care physician Active Start: February 03, 2025 Anu Hernandes [employer]HICLE OFFICER-C Referring Provider Active Start: February 03, 2025 Anu Hernandes ARMORED VEHICLE OFFICER-C Nurse Practitioner Active Start: February 03, 2025 Dr. Wally Rodriges DO Attending physician Active Start: February 03, 2025 Team Status: Inactive Member Role/Relationship Status Dates Dr. Alejandro Rosales MD Primary care physician Active Start: February 09, 2025 End: February 09, 2025 Anu Hernandes NP-C Attending physician Active Start: February 09, 2025 End: February 09, 2025 Anu Hernandes ARMORED VEHICLE OFFICER-C Referring Provider Active Start: February 09, 2025 End: February 09, 2025 Team Status: Inactive Member Role/Relationship Status Dates Dr. Alejandro Rosales MD Primary care physician Active Start: February 22, 2025 End: February 22, 2025 JAZMINE Alan Attending physician Active Start: February 22, 2025 End: February 22, 2025 Team Status: Inactive Member Role/Relationship Status Dates Dr. Alejandro Rosales MD Primary care physician Active Start: February 25, 2025 End: February 25, 2025 Dr. Alejandro Rosales MD Attending physician Active S tart: February 25, 2025 End: February 25, 2025 Dr. Alejandro Rosales MD Referring Provider Active St art: February 25, 2025 End: February 25, 2025 Team Status: Inactive Member Role/Relationship Status Dates Dr. Alejandro Rosales MD Primary care physician Active Start: March 09, 2025 End: March 09, 2025 Dr. Alejandro Rosales MD Referring Provider Active St art: March 09, 2025 End: March 09, 2025 Dr. Marc Kumari MD Attending physician Active Start: March 09, 2025 End: March 09, 2025 Team Status: Inactive Member Role/Relationship Status Dates Dr. Alejandro Rosales MD Primary care physician Active Start: March 25, 2025 End: March 25, 2025 Dr. Alejandro Rosales MD Referring Provider Active St art: March 25, 2025 End: March 25, 2025 JAZMINE Alan Attending physician Active Start: March 25, 2025 End: March 25, 2025 Team Status: Inactive Member Role/Relationship Status Dates Dr. Alejandro Rosales MD Primary care physician Active Start: April 05, 2025 End: April 05, 2025 JAZMINE Alan Attending physician Active Start: April 05, 2025 End: April 05, 2025 JAZMINE Alan Referring Provider Active Start: April 05, 2025 End: April 05, 2025 Team Status: Inactive Member Role/Relationship Status Dates Dr. Alejandro Rosales MD Primary care physician Active Start: April 19, 2025 End: April 19, 2025 Dr. Alejandro Rosales MD Referring Provider Active St art: April 19, 2025 End: April 19, 2025 Dr. Chris Hand MD Attending physician Active Start: April 19, 2025 End: April 19, 2025 Team Status: Inactive Member Role/Relationship Status Dates Dr. Alejandro Rosales MD Primary care physician Active Start: April 19, 2025 End: April 19, 2025 Dr. Chris Hand MD Attending physician Active Start: April 19, 2025 End: April 19, 2025 Dr. Chris Hand MD Referring Provider Active Start: April 19, 2025 End: April 19, 2025 Team Status: Active Member Role/Relationship Status Dates Dr. Alejandro Rosales MD Primary care physician Active Start: April 20, 2025 Dr. Ada Soliman DO Attending physician Active Start: April Dr. Ada Soliman DO Referring Provider Active Start: April Team Status: Inactive Member Role/Relationship Status Dates Dr. Alejandro Rosales MD Primary care physician Active Start: April 21, 2025 End: April 21, 2025 Dr. Alejandro Rosales MD Referring Provider Active St art: April 21, 2025 End: April 21, 2025 Dr. Marc Robbins MD Attending physician Active Start: April 21, 2025 End: April 21, 2025 Team Status: Active Member Role/Relationship Status Dates Dr. Alejandro Rosales MD Primary care physician Active Start: April 26, 2025 Dr. Marc Robbins MD Attending physician Active Start: April 26, 2025 Dr. Marc Robbins MD Referring Provider Active S tart: April 26, 2025 Team Status: Active Member Role/Relationship Status Dates Dr. Alejandro Rosales MD Primary care physician Active Start: April 26, 2025 Dr. Alejandro Rosales MD Attending physician Active S tart: April 26, 2025 Dr. Alejandro Rosales MD Referring Provider Active St art: April 26, 2025 Team Status: Inactive Member Role/Relationship Status Dates Dr. Alejandro Rosales MD Primary care physician Active Start: April 26, 2025 End: April 26, 2025 Dr. Alejandro Rosales MD Attending physician Active S tart: April 26, 2025 End: April 26, 2025 Dr. Alejandro Rosales MD Referring Provider Active St art: April 26, 2025 End: April 26, 2025 Team Status: Inactive Member Role/Relationship Status Dates Dr. Alejandro Rosales MD Primary care physician Active Start: May 05, 2025 End: May 05, 2025 Dr. Alejandro Rosales MD Referring Provider Active St art: May 05, 2025 End: May 05, 2025 Dr. Marc Robbins MD Attending physician Active Start: May 05, 2025 End: May 05, 2025 Source Comments (unrecognize d section and content) In the event this informatio n is protected by the Federal Confidentiality of Alcohol and Drug Abuse Patient Records regulations: The Federal rules restrict any use of the information to criminally investigate or prosecute any alcohol or drug abuse patient.[place] Scheduled Active and Recently Administ ered Medications [...] Parker RN) 2202 (Given - Provider: Loretta Parker RN) budesonide-glycopyrrol ate-formoterol (BREZTRI) 160-9-4.8 MCG/ACT inhaler 2 [...] on Fri11/08/24 at 2014, Until Fri11/09/24 at 2050 0000 (Rate/Dose Verify - Provider: Tyesha Cody RN)0024 (Paused - Provider: Tyesha Cody RN)0119 (Restarted - Provider: Tyesha Cody RN)0200 (Rate/Dose Verify - Provider: Tyesha Cody RN)0400 (Rate/Dose Verify - Provider: Tyesha Cody RN)0432 (Paused - Provider: Shelley Malagon RN)0442 (Restarted - Provider: Shelley Malagon RN)0826 (Rate/Dose Verify - Provider: Sehlley Malagon RN)0907 (Rate/Dose Verify - Provider: Shelley [...] Malagon RN)2103 (Given - Provider: Loretta Parker, SHIRLEY) 0058 (See Alternative - Provider: Loretta Parker, [...] (See Alternative - Provider: Loretta Parker RN) 57 (Given - Provider: Loretta Parker RN)0638 (Given - Provider: Loretta Parker, SHIRLEY) Acetaminophen (TYLENOL) tablet 650 mg(Linked Group 5) [...] Parker RN)0638 (See Alternative - Provider: Loretta Parker, SHIRLEY) Albuterol inhaler 2 puff 2 puff, Inhalation, EVERY 6 HOURS NEEDED, Starting on Fri11/08/24 at 2016, Until Urmila 11/11/24 at 1658, Shortness of [...] DIRECTED, Starting on Fri11/08/24 at 2017, Until Urmila 11/11/24 at 1658, Blood glucose [...] 1 HOUR NEEDED, Starting on Fri11/08/24 at 2012, Until Urmila 11/11/24 at 1658, Systolic Blood [...] NEEDED, Starting on Fri11/08/24 at 2018, Until Fri11/11/24 at 1658, Other, As needed [...] over 2 minutes. Telemetry required except for GENERAL MACHINE OPERATOR patients on [address] 6 and 7. [...] med Subcutaneous, NEEDED, Starting on Fri11/08/24 at 2018, Until Fri11/11/24 at 1658, Other, As needed [...] glucose is greater than 200md/dl, then notify [facility]. And BLOOD GLUCOSE (POC DEVICE) (CANCELED) Routine, DIRECTED, Starting on Fri11/08/24 at 2018, Until Specified, For all Blood Glucose LESS [...] pharmacy or obtain from crash cart ++ And glucose (GLUTOSE) 40 % [...] at 2019, Until Specified, Who to Notify: [facility], For all Blood Glucose LESS THAN 80 mg/dl, notify [facility] after treatment per Hypoglycemia in Non- Adults Clinical Practice Guideline And Carbohydrate counts with meals (CANCELED) Routine, CONTINUOUS, Starting on Fri11/08/24 at 2018, Until Specified, Carbohydrate counts are to be [...] BE BASED ON THE PRIMARY CLINICAL RECORDS. [facility] provides no warranty or guarantee of the accuracy or completeness of information in this document.
[2025-05-24] MEDS: fentaNYL drip 100 ML 5 MCG CONT INF (19:52)
--- NOTE | 2025-05-24 19:55 | ED.RN ---
The patient's automatic BP monitoring shows hypotensive episodes, this RN has completed manual blood pressures for the fluid resuscitation documentation. This RN notified Dr. Hadley for additional sedation medication in order to decrease the patient's propofol titration. Family aware of new medication and plan of care. See MAR documentation.
[2025-05-24 20:10] LABS: Reflex Lactate? Y
--- NOTE | 2025-05-24 20:25 | RAD_ITS ---
PROCEDURE: CHEST 1 VIEW (PORTABLE) 05/24/2025 REASON FOR EXAM: AE CHF TECHNIQUE: Frontal view of the chest. COMPARISON: 05/24/2025 FINDINGS: LINES: Multiple wires overlying the distal endotracheal tube, which appears to terminate 2.8 cm above the alberto. OG tube tip terminating in the pyloroduodenal region. LUNGS AND PLEURA: Persistent right upper lobe consolidation. Small opacities in both lung bases. Mild costophrenic angle blunting bilaterally. No pneumothorax. HEART AND MEDIASTINUM: The cardiac silhouette is mildly enlarged. The mediastinal contour is normal. AORTA: Mildly calcified aortic arch. PULMONARY VESSELS: Mild prominence of the central pulmonary vasculature. BONES: No acute osseous abnormality. RAD/Chest 1 View (Portable) IMPRESSION: 1. Low-lying ET tube terminating 2.8 cm above the alberto. Withdrawal of rough ly 1.0-1.5 cm is suggested for better positioning. 2. Persistent bilateral lung opacities, without significant change. 3. Cardiomegaly with mild vascular congestion. 4. Small bilateral pleural effusions. Reading Location: [id number]
[2025-05-24] MEDS: Pantoprazole Sodium 40 MG in 0.9% Normal Saline (100mL MB+) 100 ML 330 MG IV (21:33)
[2025-05-24] MEDS: 0.9% Saline Lock 10 ML Syringe IV ×3 (21:33→22:25)
[2025-05-24] MEDS: Chlorhexidine 15 ML PO (21:33)
[2025-05-24] MEDS: 0.9% Normal Saline (250mL Bag) 250 ML 15 ML IV ×2 (21:33→22:11)
--- NOTE | 2025-05-24 21:41 | PCM.HOSP.N ---
Hospitalist Note Since arrival to ICU from ED at 2029, nrsg reports that pt has only had a single recorded SBP greater than 80mmHg, trending more in the 60-70s range. Propofol has been weaned down and now off, SBP is slow to respond. 2ltrs of sepsis fluids administered, short of full 30ml/kg recommendation d/t pulmonary congestion on CXR and elevated BNP with history of HFpEF. EF noted this spring at 62% from [facility]. Propofol discontinued, ordered dexmedetomidine and low dose norepinephrine. Pt has PIVs, ventricular rate in the 80-90s, and is afebrile. Third troponin ordered d/t rise between #1 and 2.
[2025-05-24 21:46] LABS: Troponin T High Sens 2 HR 76 ng/L (<=14)
[2025-05-24] MEDS: Norepinephrine 8 MG in 0.9% Normal Saline (250mL Bag) 242 ML 9.4 MG CONT INF (22:07)
[2025-05-24] MEDS: CHLORHEXIDINE GLUC 2% CLOTH 1 EACH TOWELETTE TOPICAL (22:08)
[2025-05-24] MEDS: Vancomycin HCl 2,000 MG in 0.9% Normal Saline (500mL Bag) 500 ML 250 MG IV (22:10)
[2025-05-24] MEDS: Piperacil/Tazobactam 3.375 GM in 0.9% Normal Saline (50mL MB+) 50 ML IV (22:11)
[2025-05-24 22:37] LABS: Troponin T High Sensitivity 85 ng/L (<=14)
--- NOTE | 2025-05-24 22:41 | PCM.RX.CS ---
Consult Antibiotic Management Pharmacy has been consulted to manage selected antibiotic: Vancomycin Type of Intervention Type of Consult: New start Labs Labs: Sodium 133 mmol/L (133-145) 05/24/25 15:54 Potassium 4.5 mmol/L (3.3-5.1) 05/24/25 15:54 Chloride 97 mmol/L (98-108) L 05/24/25 15:54 Carbon Dioxide 20.0 mmol/L (21.0-32.0) L 05/24/25 15:54 Anion Gap 17 (5-15) H 05/24/25 15:54 BUN 17 mg/dL (4-19) 05/24/25 15:54 Creatinine 1.10 mg/dL (0.70-1.20) 05/24/25 15:54 Est GFR (MDRD) Non-Af 53 (>60) L 05/24/25 15:54 BUN/Creatinine Ratio 15.8 RATIO (10-20) 05/24/25 15:54 Glucose 350 mg/dL (70-99) H 05/24/25 15:54 Microbiology Microbiology: Microbiology 05/24/25 16:45 Urine Catheter - [place] Legionella Antigen - Final 05/24/25 16:45 Urine Catheter - [place] Streptococcus pneumoniae Antigen (M - Final 05/24/25 16:07 Mucosa - Nose SARS-CoV-2, Influenza & RSV (PCR) - Final Dosing Weight Weight used for dosin.4 kg Estimated Creatinine Clearance Estimated Creatinine Clearance: 53.54 Goal Trough Goal Trough: 15-20 mcg/mL Pharmacy Plan for Drug Dosing Pharmacy Plan for Drug Dosing: Pharmacy Service will continue to monitor and adjust dosing as required. ER DOSE 2000MG GIVEN 05/24 @ 2210. START 1000MG Q12H AND DRAW TROUGH PRIOR TO 4TH DOSE Follow-Up Labs Follow-Up Labs: Trough: Vancomycin Date/Time Labs Ordered Labs to be done on [date and time ordered]: 05/26 @ 1000
[2025-05-25] VITALS (51 sets, daily range): BP systolic 86–121; BP diastolic 45–66; PULSE 50–113; RESP 11–19; TEMP 37.1–37.6; O2SAT 55–100; BMI 36.4
--- OUTSIDE RECORDS SUMMARY | 2025-05-25 01:13 | XMS RPT_ITS | CCD ---
Author Organization [facility] Care Team Providers Care Junior Account Manager Name Role Phone Dr. Alejandro Rosales Primary [...] Dr. Ada Irving Referring Provide r Cynthia COMPUTER PROGRAMMING SUPERVISOR-C, Latoya Attending Provider Grecia HERNÁNDEZ, Dr. Martinez [...] Dr. Kevan Jama MD Attending Provider Greta COMPUTER PROGRAMMING SUPERVISOR-C, Anu Benavides Attending Provider Greta COMPUTER PROGRAMMING SUPERVISOR-C, Anu Benavides Referring Provider Bobby HERNÁNDEZ, Dr. Allen Primary Care Provider Bobby HERNÁNDEZ, Dr. Allen Referring Provider Dr. Kevan Jama MD Attending Provider Greta COMPUTER PROGRAMMING SUPERVISOR-C, Anu Benavides Other Provider Dr. Wally Rodriges DO Attending Provider Bobby HERNÁNDEZ, Dr. Allen Attending Provider Bobby HERNÁNDEZ, Dr. Allen Primary Care Provider Dr. Marc Kumari MD Attending Provider Sementi DO, Dr. Ada Irvign Other Provider Bobby HERNÁNDEZ, Dr. Allen Primary Care Provider Bobby HERNÁNDEZ, Dr. Allen Referring Provider Dr. Kevan Jama MD Attending Provider Sementi DO, Dr. Ada Irving Attending Provide r Sementi DO, Dr. Ada Irving Referring Provide r Yazan HERNÁNDEZ, Dr. Perez Attending Provider Bobby HERNÁNDEZ, Dr. Allen Primary Care Physician Greta LE-CAnu Attending Physician Greta COMPUTER PROGRAMMING SUPERVISOR-CAnu Nurse Practitioner Antelmo LEONARD, Dr. Lo Attending [...] Care Unavailable Anu Hernandes Referring Unavailable Wally Rodriges Attending Unavailable Rosales, Alejandro Primary Care Unavailable [...] (20 sources) Codeine Drug Allergy 01-12-2019 Anaphylaxis [facility] (1 source) Codeine Drug Allergy 05-23-2025 [facility] Repository Medications Current Medications Medication Drug [...] as needed Acetaminophen (TYLENOL) tablet 325 mg [id number] 200 actuat albuterol 0.09 mg/actuat metered dose [...] RELIEF) 50 mcg/actuation nasal spray Use 1 [place] in each nostril once daily. Active Vykjgdtgycl-Vlbcwhlbh-Itebbk (Trelegy Ellipta) 200-62.5-25 MCG/ACT Aerosol Powder, breath activated (1 source) Fluticasone-Umec lidin-Vilant (Trelegy Ellipta) 200-62.5-25 MCG/ACT Aerosol Powder, breath activated Inhale 1 Inhalation daily. Active Nvlkhapbdyj-Aobchudrj-Pdrkhs er (20 sources) Start: 11-26-19 Khbavalyqsg-Ajdlelzjx-Jbwqja er (Trelegy Ellipta) 200-62.5-25 mcg blister with [...] 25, 2024 11:25am Start: 11-11-2024 End: 11-25-2024 Mmzusoczbzb-Nocfjipje-Yntgml er (Trelegy Ellipta) 200-62.5-25 mcg blister with device Discontinued 1 NMA INHALATION DAILY November 11, 2024 12:00am November 25, 2024 11:25am sob Start: 11-11-2024 End: 11-25-2024 Dhbwiycfaek-Qvlzdhsdx-Ocxeas er (Trelegy Ellipta) 200-62.5-25 mcg blister with [...] drug therapy Start: 11-11-2024 End: 11-25-2024 Ipratropium Seltzer 21 mcg ( 0.03 %) spray,non-aerosol Discontinued 1 - 2 NMA INTRANASAL EVERY 6 HOURS NEEDED as needed for rhinitis November 11, 2024 12:00am November 25, 2024 11:24am Start: 09-14-2021 Ipratropium Br omide Active 2 SPRAY INTRANASAL 2 to 3 times per day September 14, 2021 1:00am administer into each nostril Start: 12-09-2018 End: 12-09-2018 Ipratropium Seltzer 0.03 % s maribeth,non-aerosol Discontinued 2 NMA INTRANASAL EVERY 6 HOURS as needed for allergy symptoms December 09, 2018 12:00am December 09, 2018 1:28pm Start: 12-09-2018 End: 12-09-2018 Ipratropium Seltzer Disconti nued 2 SPRAY INTRANASAL EVERY 6 HOURS December 09, 2018 12:00am December 09, 2018 1:28pm Ipratropium Seltzer 21 mcg (0.03 %) spray,non-aerosol (1 source) [...] 24, 2021 10:22am take 1 capsule by [facility] once daily Levothyroxine 75 mcg cap [...] over 2 minutes. Telemetry required except for AVIAN KEEPER patients on [address] 6 and 7. [...] sources) Long-term current use of anticoagulant; Translations: [FPC (current) use of anticoagulants] 07-24-2021 Episodic Other [...] no significant weakness. 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 PET/CT Tumor Base -Thigh Sub son 04-26-2025 PET/CT Tumor Base -Thigh Subs Normal [facility] Carcinoembryonic Antigenon 0 04-23-2025 CEA 5.4 ng/mL High 0.0-4.7 [facility] Comment on above: Result Comment: Nons mokers <3.9 Smokers <5.6[employer] Electrochemiluminescence Immunoassay(ECLIA)Values obtained with different assay methods or kitscannot be used interchangeably. Results cannot beinterpreted as absolute evidence of the presence orabsence of malignant disease.Performed at: [facility] [address] [id number] Director: Taiwo Quintero PhD, Phone: [phone] Performed By: #### L 3100.2300 ####[facility] [address] [place], [address] SP/HP.SPREEVon 04-22-2025 SP/HP.SPREEV Normal [facility] Oncology Visit Reporton 04-04 Oncology Visit Report Normal [facility] Serum or plasma carcinoembry onic antigen measurement (mass/volume)Ordered By: Marc Robbins on 04-21-2025 Carcinoembryonic Ag [Mass/Vol] 5.4 ng/mL High 0.0-4.7 [facility] Comment on above: Nonsmokers <3.9 Smok ers <5.6[employer] Electrochemiluminescence Immunoassay(ECLIA)Values obtained with different assay methods or kitscannot be used interchangeably. Results cannot beinterpreted as absolute evidence of the presence orabsence of malignant disease.Performed at: [facility] [address] [id number] Director: Taiwo Quintero PhD, Phone: [phone] Anion gap in Serum or Plasma Ordered By: Alejandro Rosales on 04-19-2025 Anion gap [Moles/Vol] 13 mmol/L 5-[address] [facility] BUN/creatinine ratioOrdered By: Alejandro Rosales on 04-19-2025 Urea nitrogen/Creatinine [Mass ratio] 23.2 mg/mg High 10-20 [facility] Bilirubin, totalOrdered By: Alejandro Rosales on 04-19-2025 Bilirubin [Mass/Vol] 1.29 mg/dL 0.00-1.30 [facility] CBC-Complete Blood Cnt No Di ffon 04-19-2025 Erythrocyte distribution width (RBC) [Ratio] 16.9 % High 11.6-14.6 [facility] Comment on above: Order Comment: Order Date: 09/28/24Order Info: [id number] - CBC Performed By: #### L 500.4050, L501.5200, L502.0250, L100.0500, L300.3900, L501.9985 ####[facility] [address] [place], [address] Hematocrit (Bld) [Volume fraction] 41.0 % Normal 37-47 [facility] Comment on above: Order Comment: Order Date: 09/28/24Order Info: [id number] - CBC Performed By: #### L 500.4050, L501.5200, L502.0250, L100.0500, L300.3900, L501.9985 ####[facility] [address] [facility] [place], [address] Hemoglobin (Bld) [Mass/Vol] 12.4 g/dL Normal 12.0-15.0 [facility] Comment on above: Order Comment: Order Date: 09/28/24Order Info: [id number] - CBC Performed By: #### L 500.4050, L501.5200, L502.0250, L100.0500, L300.3900, L501.9985 ####[facility] [address] [facility] [place], [address] MCH (RBC) [Entitic mass] 26.7 pg Low 27.0-32.0 [facility] Comment on above: Order Comment: Order Date: 09/28/24Order Info: [id number] - CBC Performed By: #### L 500.4050, L501.5200, L502.0250, L100.0500, L300.3900, L501.9985 ####[facility] [address] [facility], [address] MCHC (RBC) [Mass/Vol] 30.2 g/dL Low 32-[address] [facility] Comment on above: Order Comment: Order Date: 09/28/24Order Info: [id number] - CBC Performed By: #### L 500.4050, L501.5200, L502.0250, L100.0500, L300.3900, L501.9985 ####[facility] [address] [place], [address] MCV (RBC) [Entitic vol] 88.4 fL Normal 81-99 [facility] Comment on above: Order Comment: Order Date: 09/28/24Order Info: [id number] - CBC Performed By: #### L 500.4050, L501.5200, L502.0250, L100.0500, L300.3900, L501.9985 ####[facility] [address] [place], [address] Platelet mean volume (Bld) [Entitic vol] 10.3 fL Normal 6.2-12.0 [facility] Comment on above: Order Comment: Order Date: 09/28/24Order Info: [id number] - CBC Performed By: #### L 500.4050, L501.5200, L502.0250, L100.0500, L300.3900, L501.9985 ####[facility] [address] [place], [address] Platelets (Bld) [#/Vol] 184 10*3/uL Normal 150-450 [facility] Comment on above: Order Comment: Order Date: 09/28/24Order Info: [id number] - CBC Performed By: #### L 500.4050, L501.5200, L502.0250, L100.0500, L300.3900, L501.9985 ####[facility] [address] [place], [address] RBC (Bld) [#/Vol] 4.64 10*6/uL Normal 4.2-5.4 [facility] Comment on above: Order Comment: Order Date: 09/28/24Order Info: [id number] - CBC Performed By: #### L 500.4050, L501.5200, L502.0250, L100.0500, L300.3900, L501.9985 ####[facility] [address] [place], [address] RDW SD 53.1 fl High 35.1-43.9 [facility] Comment on above: Order Comment: Order Date: 09/28/24Order Info: [id number] - CBC Performed By: #### L 500.4050, L501.5200, L502.0250, L100.0500, L300.3900, L501.9985 ####[facility] [address] [place], [address] WBC (Bld) [#/Vol] 8.2 10*3/uL Normal 4.4-11.0 [facility] Comment on above: Order Comment: Order Date: 09/28/24Order Info: [id number] - CBC Performed By: #### L 500.4050, L501.5200, L502.0250, L100.0500, L300.3900, L501.9985 ####[facility] [address] [place], [place], [id number] Carbon dioxide, total [Moles /volume] in Central venous bloodOrdered By: Alejandro Rosales on 04-19-2025 CO2 [Moles/Vol] 22.6 mmol/L 21.0-32.0 [facility] Cardiology Visit Reporton Cardiology Visit Report Normal [facility] Chloride assayOrdered By: Ike Rosales on 04-19-2025 Chloride [Moles/Vol] 100 mmol/L 98-108 [facility] Comprehensive Metabolic Prof ilon 04-19-2025 Albumin [Mass/Vol] 4.1 g/dL Normal 3.4-4.8 [facility] Comment on above: Order Comment: Order Date: 09/28/24Order Info: [id number] - CMPOrder Info: [id number] - MGOrder Info: [id number] - TSHstanding orderstanding order Performed By: #### L 500.4050, L501.5200, L502.0250, L100.0500, L300.3900, L501.9985 ####[facility] [address] [place], [address] Albumin/Globulin [Mass ratio] 1.2 {ratio} Normal 0.9-2.4 [facility] Comment on above: Order Comment: Order Date: 09/28/24Order Info: [id number] - CMPOrder Info: [id number] - MGOrder Info: [id number] - TSHstanding orderstanding order Performed By: #### L 500.4050, L501.5200, L502.0250, L100.0500, L300.3900, L501.9985 ####[facility] [address] [place], [address] ALK PHOS 139 U/L High 35-104 [facility] Comment on above: Order Comment: Order Date: 09/28/24Order Info: [id number] - CMPOrder Info: [id number] - MGOrder Info: 6-3 - TSHstanding orderstanding order Performed By: #### L 500.4050, L501.5200, L502.0250, L100.0500, L300.3900, L501.9985 ####[facility] [address] [place], [address] ALT [Catalytic activity/Vol] 20 U/L Normal <=34 [facility] Comment on above: Order Comment: Order Date: 09/28/24Order Info: [id number] - CMPOrder Info: [id number] - MGOrder Info: [id number] - TSHstanding orderstanding order Performed By: #### L 500.4050, L501.5200, L502.0250, L100.0500, L300.3900, L501.9985 ####[facility] [address] [place], [address] AST [Catalytic activity/Vol] 25 U/L Normal <=31 [facility] Comment on above: Order Comment: Order Date: 09/28/24Order Info: [id number] - CMPOrder Info: [id number] - MGOrder Info: [id number] - TSHstanding orderstanding order Performed By: #### L 500.4050, L501.5200, L502.0250, L100.0500, L300.3900, L501.9985 ####[facility] [address] [place], [address] Bilirubin [Mass/Vol] 1.29 mg/dL Normal 0.00-1.30 [facility] Comment on above: Order Comment: Order Date: 09/28/24Order Info: [id number]- - CMPOrder Info: - MGOrder Info: [id number] - TSHstanding orderstanding order Performed By: #### L 500.4050, L501.5200, L502.0250, L100.0500, L300.3900, L501.9985 ####[facility] [address] [place], [place], [phone] BUN/CRE 23.2 RATIO High 10-20 [facility] Comment on above: Order Comment: Order Date: 09/28/24Order Info: [id number] - CMPOrder Info: - MGOrder Info: [id number] - TSHstanding orderstanding order Performed By: #### L 500.4050, L501.5200, L502.0250, L100.0500, L300.3900, L501.9985 ####[facility] [address] [place], [place], [phone] Calcium [Mass/Vol] 9.7 mg/dL Normal 7.6-11.0 [facility] Comment on above: Order Comment: Order Date: 09/28/24Order Info: [id number] - CMPOrder Info: [id number] - MGOrder Info: 3015-10 - TSHstanding orderstanding order Performed By: #### L 500.4050, L501.5200, L502.0250, L100.0500, L300.3900, L501.9985 ####[facility] [address] [place], [address] Chloride [Moles/Vol] 100 mmol/L Normal 98-108 [facility] Comment on above: Order Comment: Order Date: 09/28/24Order Info: [id number] - CMPOrder Info: [id number] - MGOrder Info: [id number] - TSHstanding orderstanding order Performed By: #### L 500.4050, L501.5200, L502.0250, L100.0500, L300.3900, L501.9985 ####[facility] [address] [place], [address] CO2 [Moles/Vol] 22.6 mmol/L Normal 21.0-32.0 [facility] Comment on above: Order Comment: Order Date: 09/28/24Order Info: [id number] - CMPOrder Info: - MGOrder Info: [id number] - TSHstanding orderstanding order Performed By: #### L 500.4050, L501.5200, L502.0250, L100.0500, L300.3900, L501.9985 ####[facility] [address] [place], [address] Creatinine [Mass/Vol] 0.96 mg/dL Normal 0.70-1.[address] [facility] Comment on above: Order Comment: Order Date: 09/28/24Order Info: [id number] - CMPOrder Info: [id number] - MGOrder Info: 3015-3 - TSHstanding orderstanding order Performed By: #### L 500.4050, L501.5200, L502.0250, L100.0500, L300.3900, L501.9985 ####[facility] [address] [place], [address] GAP 13 Normal 5-15 [facility] Comment on above: Order Comment: Order Date: 09/28/24Order Info: [id number] - CMPOrder Info: [id number] - MGOrder Info: 3 - TSHstanding orderstanding order Performed By: #### L 500.4050, L501.5200, L502.0250, L100.0500, L300.3900, L501.9985 ####[facility] [address] [place], [address] GFR/1.73 sq M.predicted among non-blacks MDRD (S/P/Bld) [Vol rate/Area] 63 mL/min/{1.73_m2} Normal >60 [facility] Comment on above: Order Comment: Order Date: 09/28/24Order Info: [id number] - CMPOrder Info: [id number] - MGOrder Info: 3015-10 - TSHstanding orderstanding order Result Comment: mL/m in/1.73m2 CKD-EPI Creatinine Equation (2020) Performed By: #### L 500.4050, L501.5200, L502.0250, L100.0500, L300.3900, L501.9985 ####[facility] [address] [place], [address] Globulin (S) [Mass/Vol] 3.5 g/dL Normal 2.2-4.2 [facility] Comment on above: Order Comment: Order Date: 09/28/24Order Info: [id number] - CMPOrder Info: [id number] - MGOrder Info: 3 - TSHstanding orderstanding order Performed By: #### L 500.4050, L501.5200, L502.0250, L100.0500, L300.3900, L501.9985 ####[facility] [address] [place], [address] Glucose [Mass/Vol] 114 mg/dL High 70-99 [facility] Comment on above: Order Comment: Order Date: 09/28/24Order Info: [id number] - CMPOrder Info: [id number] - MGOrder Info: 3 - TSHstanding orderstanding order Performed By: #### L 500.4050, L501.5200, L502.0250, L100.0500, L300.3900, L501.9985 ####[facility] [address] [place], [address] Potassium [Moles/Vol] 4.2 mmol/L Normal 3.3-5.[address] [facility] Comment on above: Order Comment: Order Date: 09/28/24Order Info: [id number] - CMPOrder Info: [id number] - MGOrder Info: 3016-3 - TSHstanding orderstanding order Performed By: #### L 500.4050, L501.5200, L502.0250, L100.0500, L300.3900, L501.9985 ####[facility] [address] [place], [address] Sodium [Moles/Vol] 136 mmol/L Normal 133-145 [facility] Comment on above: Order Comment: Order Date: 09/28/24Order Info: [id number] - CMPOrder Info: [id number] - MGOrder Info: 6-3 - TSHstanding orderstanding order Performed By: #### L 500.4050, L501.5200, L502.0250, L100.0500, L300.3900, L501.9985 ####[facility] [address] [place], [address] T PROT 7.5 g/dL Normal 5.9-8.4 [facility] Comment on above: Order Comment: Order Date: 09/28/24Order Info: [id number] - CMPOrder Info: [id number] - MGOrder Info: 3016-3 - TSHstanding orderstanding order Performed By: #### L 500.4050, L501.5200, L502.0250, L100.0500, L300.3900, L501.9985 ####[facility] [address] [place], [address] Urea nitrogen [Mass/Vol] 22 mg/dL High 4-19 [facility] Comment on above: Order Comment: Order Date: 09/28/24Order Info: [id number] - CMPOrder Info: [id number] - MGOrder Info: 3016-3 - TSHstanding orderstanding order Performed By: #### L 500.4050, L501.5200, L502.0250, L100.0500, L300.3900, L501.9985 ####[facility] [address] [place], [place], [address] Erythrocyte distribution wid th ratioOrdered By: Alejandro Rosales on 04-19-2025 Erythrocyte distribution width (RBC) [Ratio] 16.9 % High 11.6-14.6 [facility] Erythrocyte distribution wid th standard deviationOrdered By: Alejandro Rosales on 04-19-2025 Erythrocyte distribution width (RBC) [Ratio] 53.1 fl High 35.1-43.9 [facility] Glomerular filtration rate ( GFR) estimation/1.73 sq m using serum, plasma, or whole bOrdered By: Alejandro Rosales on 04-19-2025 GFR/1.73 sq M.predicted among non-blacks MDRD (S/P/Bld) [Vol rate/Area] 63 mL/min/{1.73_m2} >60 [facility] Comment on above: mL/min/1.73m2 CKD-EP I Creatinine Equation (2020) Hematocrit Auto (Bld) [Volum e fraction]Ordered By: Alejandro Rosales on 04-19-2025 Hematocrit (Bld) [Volume fraction] 41.0 % 37-47 [facility] Hemoglobin A1con 04-19-2025 HbA1c (Bld) [Mass fraction] 6.0 % High <=5.6 [facility] Comment on above: Order Comment: Order Date: 09/28/24Order Info: [id number] - A1C Result Comment: Norm al < 5.7 % Prediabetic 5.7 - 6.4 % Diabetic >or= 6.5 % Please note range changes. Performed By: #### L 500.4050, L501.5200, L502.0250, L100.0500, L300.3900, L501.9985 ####[facility] [address] [place], [place], [id number] Hemoglobin A1c percentageOrd ered By: Alejandro Rosales on 04-19-2025 HbA1c (Bld) [Mass fraction] 6.0 % High <5.7 [facility] Comment on above: Normal < 5.7 % Predi abetic 5.7 - 6.4 % Diabetic >or= 6.5 % Please note range changes. Hemoglobin measurementOrdere d By: Alejandro Rosales on 04-19-2025 Hemoglobin (Bld) [Mass/Vol] 12.4 g/dL 12.0-15.0 [facility] International normalized rat io (INR) calculationOrdered By: Alejandro Rosales on 04-19-2025 INR Coag (Bld) [Relative time] 1.4 {INR} [facility] Laboratory - Chemistry and C hemistry - challengeOrdered By: Alejandro Rosales on 04-19-2025 AST [Catalytic activity/Vol] 25 U/L <32 [facility] MCV (mean corpuscular volume ) determinationOrdered By: Alejandro Rosales on 04-19-2025 MCV (RBC) [Entitic vol] 88.4 fL 81-99 [facility] Magnesiumon 04-19-2025 Magnesium [Mass/Vol] 2.1 mg/dL Normal 1.5-2.2 [facility] Comment on above: Order Comment: Order Date: 09/28/24Order Info: [id number] - CMPOrder Info: [id number] - MGOrder Info: 3016-3 - TSH Performed By: #### L 500.4050, L501.5200, L502.0250, L100.0500, L300.3900, L501.9985 ####[facility] [address] [place], [place], [id number] Magnesium measurement (mass/ volume)Ordered By: Alejandro Rosales on 04-19-2025 Magnesium (Unsp spec) [Mass/Vol] 2.1 mg/dL 1.5-2.2 [facility] Mean corpuscular hemoglobin (MCH) determinationOrdered By: Alejandro Rosales on 04-19-2025 MCH (RBC) [Entitic mass] 26.7 pg Low 27.0-32.0 [facility] Mean corpuscular hemoglobin concentration (MCHC) determinationOrdered By: Alejandro Rosales on 04-19-2025 MCHC (RBC) [Mass/Vol] 30.2 g/dL Low 32-[address] [facility] Mean platelet volume determi nationOrdered By: Alejandro Rosales on 04-19-2025 Platelet mean volume (Bld) [Entitic vol] 10.3 fL 6.2-12.0 [facility] Microalb:Creat Ratio,Random URon 04-19-2025 Creatinine [Mass/Vol] 12.60 mg/dL Low 28.00- 217. 00 [facility] Comment on above: Order Comment: Order Date: 09/28/24Order Info: [id number] - MIACREOrder Info: [id number] - MIALB Performed By: #### L 500.4050, L501.5200, L502.0250, L100.0500, L300.3900, L501.9985 ####[facility] [address] [place], [place], [address] MALB:CREAT UNABLE TO CALCULATE Normal <30 mg/g CRE [facility] Comment on above: Order Comment: Order Date: 09/28/24Order Info: [id number] - MIACREOrder Info: [id number] - MIALB Performed By: #### L 500.4050, L501.5200, L502.0250, L100.0500, L300.3900, L501.9985 ####[facility] [address] [place], [place], [address] MICROALBUMIN,UR < 12.0 Normal <20 mg/L [facility] Comment on above: Order Comment: Order Date: 09/28/24Order Info: [id number] - MIACREOrder Info: [id number] - MIALB Performed By: #### L 500.4050, L501.5200, L502.0250, L100.0500, L300.3900, L501.9985 ####[facility] [address] [place], [place], [address] Microalbumin/creat ratio urO rdered By: Alejandro Rosales on 04-19-2025 Urine microalbumin/creatinine ratio measurement UNABLE TO CALCULATE mg/g CRE <30 [facility] Platelet countOrdered By: Ike Rosales on 04-19-2025 Platelets (Bld) [#/Vol] 184 10*3/uL 150-450 [facility] Potassium measurement (mass/ volume)Ordered By: Alejandro Rosales on 04-19-2025 Potassium (Unsp spec) [Mass/Vol] 4.2 mmol/L 3.3-5.1 [facility] Prothrombin Time w/INRon INR Coag (PPP) [Relative time] 1.4 {INR} Normal [facility] Comment on above: Order Comment: Inter face Comments:standing orderOrder Date: 09/28/24Order Info: [id number] - PTComments: standing orderstanding order Performed By: #### L 500.4050, L501.5200, L502.0250, L100.0500, L300.3900, L501.9985 ####[facility] [address] [place], [place], [phone] PT Coag (PPP) [Time] 17.8 s High 11.7-14.9 [facility] Comment on above: Order Comment: Inter face Comments:standing orderOrder Date: 09/28/24Order Info: [id number] - PTComments: standing orderstanding order Performed By: #### L 500.4050, L501.5200, L502.0250, L100.0500, L300.3900, L501.9985 ####[facility] [address] [place], [place], [id number] Prothrombin timeOrdered By: Alejandro Rosales on 04-19-2025 PT Coag (PPP) [Time] 17.8 s High 11.7-14.9 [facility] RBC Auto (Bld) [#/Vol]Ordere d By: Alejandro Rosales on 04-19-2025 RBC (Bld) [#/Vol] 4.64 10*6/uL 4.2-5.4 [facility] Random urine creatinine bessie urement (mass/volume)Ordered By: Alejandro Rosales on 04-19-2025 Creatinine Unsp time (U) [Mass/Vol] 12.60 mg/dL Low 28.00-217. 00 [facility] [facility] Serum creatinine measurement (mass/volume)Ordered By: Alejandro Rosales on 04-19-2025 Creatinine [Mass/Vol] 0.96 mg/dL 0.70-1.[address] [facility] Serum globulin measurementOr dered By: Alejandro Rosales on 04-19-2025 Globulin (S) [Mass/Vol] 3.5 g/dL 2.2-4.2 [facility] Serum glucose measurement (m ass/volume)Ordered By: Alejandro Rosales on 04-19-2025 Glucose [Mass/Vol] 114 mg/dL High 70-99 [facility] Serum or plasma alanine herrera otransferase (ALT) measurementOrdered By: Alejandro Rosales on 04-19-2025 ALT [Catalytic activity/Vol] 20 U/L <35 [facility] Serum or plasma albumin bessie urement (mass/volume)Ordered By: Alejandro Rosales on 04-19-2025 Albumin [Mass/Vol] 4.1 g/dL 3.4-4.8 [facility] Serum or plasma albumin/glob ulin mass ratioOrdered By: Alejandro Rosales on 04-19-2025 Albumin/Globulin [Mass ratio] 1.2 {ratio} 0.9-2.4 [facility] Serum or plasma alkaline gloria sphatase measurementOrdered By: Alejandro Rosales on 04-19-2025 ALP [Catalytic activity/Vol] 139 U/L High 35-104 [facility] Serum or plasma calcium bessie urement (mass/volume)Ordered By: Alejandro Rosales on 04-19-2025 Calcium [Mass/Vol] 9.7 mg/dL 7.6-11.0 [facility] Serum or plasma urea nitroge n measurement (mass/volume)Ordered By: Alejandro Rosales on 04-19-2025 Urea nitrogen [Mass/Vol] 22 mg/dL High 4-19 [facility] Sodium levelOrdered By: Alejandro Rosales on 04-19-2025 Sodium [Moles/Vol] 136 mmol/L 133-145 [facility] TSH DL <= 0.005 mIU/L QnOrde red By: Chris Hand on 04-19-2025 TSH Qn 9.570 uIU/mL High 0.300-4.20 0 [facility] Thyroid Stim Hormone (TSH)on 04-19-2025 TSH 9.570 uIU/mL High 0.300-4.20 0 [facility] Comment on above: Order Comment: SEND TO Performed By: #### L 501.9542 ####[facility] [address] [place], [place], [id number] Total proteinOrdered By: Kate Rosales on 04-19-2025 Protein [Mass/Vol] 7.5 g/dL 5.9-8.4 [facility] Urine albumin measurement [facility] detection limit of 20 mg/L or less (mass/volume)Ordered By: Alejandro Rosales on 04-19-2025 Albumin DL <= 20 mg/L (U) [Mass/Vol] < 12.0 mg/L <20 mg/L [facility] White blood cell (WBC) count Ordered By: Alejandro Rosales on 04-19-2025 WBC (Bld) [#/Vol] 8.2 10*3/uL 4.4-11.0 [facility] Pulmonary Visit Reporton Pulmonary Visit Report Normal [facility] Neurology Visit Reporton Neurology Visit Report Normal [facility] Absolute lymphocyte countOrd ered By: Alejandro Rosales on 02-25-2025 Lymphocytes Auto (Unsp spec) [#/Vol] 1.81 10*3/uL 0.83-4.51 [facility] Absolute neutrophil countOrd ered By: Alejandro Rosales on 02-25-2025 Neutrophils (Bld) [#/Vol] 5.4 10*3/uL 2.0-7.7 [facility] Anion gap in Serum or Plasma Ordered By: Alejandro Rosales on 02-25-2025 Anion gap [Moles/Vol] 14 mmol/L 5-[address] [facility] Automated lymphocyte count a s percentage of total leukocytesOrdered By: Alejandro Rosales on 02-25-2025 Lymphocytes/100 WBC Auto (Unsp spec) 22.8 % 19- [facility] BUN/creatinine ratioOrdered By: Alejandro Rosales on 02-25-2025 Urea nitrogen/Creatinine [Mass ratio] 20.6 mg/mg High 10-20 [facility] Basophil percentageOrdered B y: Alejandro Rosales on 02-25-2025 Basophils/100 WBC (Bld) 0.5 % 0-1 [facility] Bilirubin, totalOrdered By: Alejandro Rosales on 02-25-2025 Bilirubin [Mass/Vol] 1.08 mg/dL 0.00-1.30 [facility] CBC W/Diff, Automatedon 02-02 Absolute Lymph 1.81 X10 3/uL Normal 0.83-4.51 [facility] Comment on above: Order Comment: Order Date: 02/25/25Order Info: 0184-1 - CBCD Performed By: #### L 503.6550, L100.0100, L500.4050, L501.9985 ####[facility] [address] [place], [address] Absolute Neut 5.4 X10 3/uL Normal 2.0-7.7 [facility] Comment on above: Order Comment: Order Date: 02/25/25Order Info: 0184-1 - CBCD Performed By: #### L 503.6550, L100.0100, L500.4050, [id number] ####[facility] [address] [place], [address] Basophils/100 WBC (Bld) 0.5 % Normal 0-1 [facility] Comment on above: Order Comment: Order Date: 02/25/25Order Info: 0184-1 - CBCD Performed By: #### L 503.6550, L100.0100, L500.4050, [id number] ####[facility] [address] [place], [address] Eosinophils/100 WBC (Bld) 1.3 % Normal 0-5 [facility] Comment on above: Order Comment: Order Date: 02/25/25Order Info: 018- - CBCD Performed By: #### L 503.6550, L100.0100, L500.4050, [id number] ####[facility] [address] [place], [address] Erythrocyte distribution width (RBC) [Ratio] 16.1 % High 11.6-14.6 [facility] Comment on above: Order Comment: Order Date: 02/25/25Order Info: 018- - CBCD Performed By: #### L 503.6550, L100.0100, L500.4050, [id number] ####[facility] [address] [place], [address] Hematocrit (Bld) [Volume fraction] 45.2 % Normal 37-47 [facility] Comment on above: Order Comment: Order Date: 02/25/25Order Info: 018- - CBCD Performed By: #### L 503.6550, L100.0100, L500.4050, [id number] ####[facility] [address] [place], [address] Hemoglobin (Bld) [Mass/Vol] 13.8 g/dL Normal 12.0-15.0 [facility] Comment on above: Order Comment: Order Date: 02/25/25Order Info: 018- - CBCD Performed By: #### L 503.6550, L100.0100, L500.4050, [id number] ####[facility] [address] [place], [address] IG% 0.400 Normal 0.0-0.9 [facility] Comment on above: Order Comment: Order Date: 02/25/25Order Info: 018-1 - CBCD Result Comment: IG% - Immature Granulocytes (promyelocytes, myelocytes andmetamyelocytes) > 1% indicates that a LEFT SHIFT is Present. Performed By: #### L 503.6550, L100.0100, L500.4050, L501.9985 ####[facility] [address] [place], [address] Lymphocytes/100 WBC (Bld) 22.8 % Normal 19-41 [facility] Comment on above: Order Comment: Order Date: 02/25/25Order Info: 0184-1 - CBCD Performed By: #### L 503.6550, L100.0100, L500.4050, [id number] ####[facility] [address] [place], [address] MCH (RBC) [Entitic mass] 27.6 pg Normal 27.0-32.0 [facility] Comment on above: Order Comment: Order Date: 02/25/25Order Info: 0184-1 - CBCD Performed By: #### L 503.6550, L100.0100, L500.4050, [id number] ####[facility] [address] [place], [address] MCHC (RBC) [Mass/Vol] 30.5 g/dL Low 32-[address] [facility] Comment on above: Order Comment: Order Date: 02/25/25Order Info: 0184-1 - CBCD Performed By: #### L 503.6550, L100.0100, L500.4050, [id number] ####[facility] [address] [place], [address] MCV (RBC) [Entitic vol] 90.4 fL Normal 81-99 [facility] Comment on above: Order Comment: Order Date: 02/25/25Order Info: 0184-1 - CBCD Performed By: #### L 503.6550, L100.0100, L500.4050, [id number] ####[facility] [address] [place], [address] Monocytes/100 WBC (Bld) 7.7 % Normal 0-10 [facility] Comment on above: Order Comment: Order Date: 02/25/25Order Info: 0184-1 - CBCD Performed By: #### L 503.6550, L100.0100, L500.4050, [id number] ####[facility] [address] [place], [address] Neutrophils/100 WBC (Bld) 67.3 % Normal 47-70 [facility] Comment on above: Order Comment: Order Date: 02/25/25Order Info: 0184-1 - CBCD Performed By: #### L 503.6550, L100.0100, L500.4050, [id number] ####[facility] [address] [place], [address] Nucleated RBC (Bld) [#/Vol] 0 10*3/uL Normal 0-5 [facility] Comment on above: Order Comment: Order Date: 02/25/25Order Info: 0184-1 - CBCD Performed By: #### L 503.6550, L100.0100, L500.4050, [id number] ####[facility] [address] [place], [address] Platelet mean volume (Bld) [Entitic vol] 10.9 fL Normal 6.2-12.0 [facility] Comment on above: Order Comment: Order Date: 02/25/25Order Info: 0184-1 - CBCD Performed By: #### L 503.6550, L100.0100, L500.4050, [id number] ####[facility] [address] [place], [address] Platelets (Bld) [#/Vol] 167 10*3/uL Normal 150-450 [facility] Comment on above: Order Comment: Order Date: 02/25/25Order Info: 0184-1 - CBCD Performed By: #### L 503.6550, L100.0100, L500.4050, [id number] ####[facility] [address] [place], [address] RBC (Bld) [#/Vol] 5.00 10*6/uL Normal 4.2-5.4 [facility] Comment on above: Order Comment: Order Date: 02/25/25Order Info: 0184-1 - CBCD Performed By: #### L 503.6550, L100.0100, L500.4050, [id number] ####[facility] [address] [place], [address] RDW SD 52.7 fl High 35.1-43.9 [facility] Comment on above: Order Comment: Order Date: 02/25/25Order Info: 0184-1 - CBCD Performed By: #### L 503.6550, L100.0100, L500.4050, [id number] ####[facility] [address] [place], [address] WBC (Bld) [#/Vol] 8.0 10*3/uL Normal 4.4-11.0 [facility] Comment on above: Order Comment: Order Date: 02/25/25Order Info: 0184-1 - CBCD Performed By: #### L 503.6550, L100.0100, L500.4050, [id number] ####[facility] [address] [place], [address] Carbon dioxide, total [Moles /volume] in Central venous bloodOrdered By: Alejandro Rosales on 02-25-2025 CO2 [Moles/Vol] 21.3 mmol/L 21.0-32.0 [facility] Chloride assayOrdered By: Ike Rosales on 02-25-2025 Chloride [Moles/Vol] 103 mmol/L 98-108 [facility] Comprehensive Metabolic Prof ilon 02-25-2025 Albumin [Mass/Vol] 3.8 g/dL Normal 3.4-4.8 [facility] Comment on above: Order Comment: Order Date: 02/25/25Order Info: 0786- - CMPOrder Info: 2275-11 - HARITHA Performed By: #### L 503.6550, L100.0100, L500.4050, [id number] ####[facility] [address] [place], [address] Albumin/Globulin [Mass ratio] 1.1 {ratio} Normal 0.9-2.4 [facility] Comment on above: Order Comment: Order Date: 02/25/25Order Info: 0786- - CMPOrder Info: 2275-11 - HARITHA Performed By: #### L 503.6550, L100.0100, L500.4050, L501.9985 ####[facility] [address] [place], [address] ALK PHOS 117 U/L High 35-104 [facility] Comment on above: Order Comment: Order Date: 02/25/25Order Info: 0786- - CMPOrder Info: 2275-11 - HARITHA Performed By: #### L 503.6550, L100.0100, L500.4050, L501.9985 ####[facility] [address] [place], [address] ALT [Catalytic activity/Vol] 7 U/L Normal <=34 [facility] Comment on above: Order Comment: Order Date: 02/25/25Order Info: 0786- - CMPOrder Info: 2275-11 - HARITHA Performed By: #### L 503.6550, L100.0100, L500.4050, [id number] ####[facility] [address] [place], [address] AST [Catalytic activity/Vol] 24 U/L Normal <=31 [facility] Comment on above: Order Comment: Order Date: 02/25/25Order Info: 0786-1 - CMPOrder Info: 2275-11 - HARITHA Result Comment: Hemo lysis present, Results??could be affected.?? Performed By: #### L 503.6550, L100.0100, L500.4050, L501.9985 ####[facility] [address] [place], [address] Bilirubin [Mass/Vol] 1.08 mg/dL Normal 0.00-1.30 [facility] Comment on above: Order Comment: Order Date: 02/25/25Order Info: 0786-1 - CMPOrder Info: 2275-11 - HARITHA Performed By: #### L 503.6550, L100.0100, L500.4050, L501.9985 ####[facility] [address] [place], [address] BUN/CRE 20.6 RATIO High 10-20 [facility] Comment on above: Order Comment: Order Date: 02/25/25Order Info: 0786- - CMPOrder Info: 2275-11 - HARITHA Performed By: #### L 503.6550, L100.0100, L500.4050, L501.9985 ####[facility] [address] [place], [address] Calcium [Mass/Vol] 10.2 mg/dL Normal 7.6-11.0 [facility] Comment on above: Order Comment: Order Date: 02/25/25Order Info: 0786-1 - CMPOrder Info: 2275-11 - HARITHA Performed By: #### L 503.6550, L100.0100, L500.4050, L501.9985 ####[facility] [address] [place], [address] Chloride [Moles/Vol] 103 mmol/L Normal 98-108 [facility] Comment on above: Order Comment: Order Date: 02/25/25Order Info: 0786-1 - CMPOrder Info: 2275-11 - HARITHA Performed By: #### L 503.6550, L100.0100, L500.4050, L501.9985 ####[facility] [address] [place], [address] CO2 [Moles/Vol] 21.3 mmol/L Normal 21.0-32.0 [facility] Comment on above: Order Comment: Order Date: 02/25/25Order Info: 0786-1 - CMPOrder Info: 2275-11 - HARITHA Performed By: #### L 503.6550, L100.0100, L500.4050, L501.9985 ####[facility] [address] [place], [address] Creatinine [Mass/Vol] 0.88 mg/dL Normal 0.70-1.[address] [facility] Comment on above: Order Comment: Order Date: 02/25/25Order Info: 0786- - CMPOrder Info: 2275-11 - HARITHA Performed By: #### L 503.6550, L100.0100, L500.4050, L501.9985 ####[facility] [address] [place], [address] GAP 14 Normal 5-15 [facility] Comment on above: Order Comment: Order Date: 02/25/25Order Info: 0786- - CMPOrder Info: 2275-11 - HARITHA Performed By: #### L 503.6550, L100.0100, L500.4050, L501.9985 ####[facility] [address] [place], [address] GFR/1.73 sq M.predicted among non-blacks MDRD (S/P/Bld) [Vol rate/Area] 70 mL/min/{1.73_m2} Normal >60 [facility] Comment on above: Order Comment: Order Date: 02/25/25Order Info: 0786- - CMPOrder Info: 2275-11 - HARITHA Result Comment: mL/m in/1.73m2 CKD-EPI Creatinine Equation (2020) Performed By: #### L 503.6550, L100.0100, L500.4050, L501.9985 ####[facility] [address] [place], [address] Globulin (S) [Mass/Vol] 3.5 g/dL Normal 2.2-4.2 [facility] Comment on above: Order Comment: Order Date: 02/25/25Order Info: 86- - CMPOrder Info: 2275-11 - HARITHA Performed By: #### L 503.6550, L100.0100, L500.4050, L501.9985 ####[facility] [address] [place], [address] Glucose [Mass/Vol] 98 mg/dL Normal 70-99 [facility] Comment on above: Order Comment: Order Date: 02/25/25Order Info: 07 - CMPOrder Info: 2275-11 - HARITHA Performed By: #### L 503.6550, L100.0100, L500.4050, L501.9985 ####[facility] [address] [place], [address] Potassium [Moles/Vol] 4.4 mmol/L Normal 3.3-5.[address] [facility] Comment on above: Order Comment: Order Date: 02/25/25Order Info: 0786 - CMPOrder Info: 2275-11 - HARITHA Result Comment: Hemo lysis present, Results??could be affected.?? Performed By: #### L 503.6550, L100.0100, L500.4050, L501.9985 ####[facility] [address] [place], [address] Sodium [Moles/Vol] 138 mmol/L Normal 133-145 [facility] Comment on above: Order Comment: Order Date: 02/25/25Order Info: 0786- - CMPOrder Info: 2275-11 - HARITHA Performed By: #### L 503.6550, L100.0100, L500.4050, L501.9985 ####[facility] [address] [place], [place], [address] T PROT 7.3 g/dL Normal 5.9-8.4 [facility] Comment on above: Order Comment: Order Date: 02/25/25Order Info: 0786-1 - CMPOrder Info: 2275-11 - HARITHA Performed By: #### L 503.6550, L100.0100, L500.4050, L501.9985 ####[facility] [address] [place], [place], [address] Urea nitrogen [Mass/Vol] 18 mg/dL Normal 4-19 [facility] Comment on above: Order Comment: Order Date: 02/25/25Order Info: 07 - CMPOrder Info: 2275-11 - HARITHA Performed By: #### L 503.6550, L100.0100, L500.4050, L501.9985 ####[facility] [address] [place], [place], [address] Eosinophil percentageOrdered By: Alejandro Rosales on 02-25-2025 Eosinophils/100 WBC (Bld) 1.3 % 0-5 [facility] Erythrocyte distribution wid th ratioOrdered By: Alejandro Rosales on 02-25-2025 Erythrocyte distribution width (RBC) [Ratio] 16.1 % High 11.6-14.6 [facility] Erythrocyte distribution wid th standard deviationOrdered By: Alejandro Rosales on 02-25-2025 Erythrocyte distribution width (RBC) [Ratio] 52.7 fl High 35.1-43.9 [facility] Ferritinon 02-25-2025 Ferritin [Mass/Vol] 179 ng/mL Normal 22-378 [facility] Comment on above: Order Comment: Order Date: 02/25/25Order Info: 0786 - CMPOrder Info: 2275-11 - HARITHA Performed By: #### L 503.6550, L100.0100, L500.4050, L501.9985 ####[facility] [address] [place], [place], [address] Glomerular filtration rate ( GFR) estimation/1.73 sq m using serum, plasma, or whole bOrdered By: Alejandro Rosales on 02-25-2025 GFR/1.73 sq M.predicted among non-blacks MDRD (S/P/Bld) [Vol rate/Area] 70 mL/min/{1.73_m2} >60 [facility] Comment on above: mL/min/1.73m2 CKD-EP I Creatinine Equation (2020) Hematocrit Auto (Bld) [Volum e fraction]Ordered By: Alejandro Rosales on 02-25-2025 Hematocrit (Bld) [Volume fraction] 45.2 % 37-47 [facility] Hemoglobin A1con 02-25-2025 HbA1c (Bld) [Mass fraction] 6.0 % High <=5.6 [facility] Comment on above: Order Comment: Order Date: 02/25/25Order Info: [id number] - A1C Result Comment: Norm al < 5.7 % Prediabetic 5.7 - 6.4 % Diabetic >or= 6.5 % Please note range changes. Performed By: #### L 503.6550, L100.0100, L500.4050, L501.9985 ####[facility] [address] [facility] [place], [place], [address] Hemoglobin A1c percentageOrd ered By: Alejandro Rosales on 02-25-2025 HbA1c (Bld) [Mass fraction] 6.0 % High <5.7 [facility] Comment on above: Normal < 5.7 % Predi abetic 5.7 - 6.4 % Diabetic >or= 6.5 % Please note range changes. Hemoglobin measurementOrdere d By: Alejandro Rosales on 02-25-2025 Hemoglobin (Bld) [Mass/Vol] 13.8 g/dL 12.0-15.0 [facility] Immature granulocytes/100 WB C Auto (Bld)Ordered By: Alejandro Rosales on 02-25-2025 Immature granulocytes/100 WBC (Bld) 0.400 % 0.0-0.9 [facility] Comment on above: IG% - Immature Granu locytes (promyelocytes, myelocytes and metamyelocytes) > 1% indicates that a LEFT SHIFT is Present. Laboratory - Chemistry and C hemistry - challengeOrdered By: Alejandro Rosales on 02-25-2025 AST [Catalytic activity/Vol] 24 U/L <32 [facility] Comment on above: Hemolysis present, R esults could be affected. MCV (mean corpuscular volume ) determinationOrdered By: Alejandro Rosales on 02-25-2025 MCV (RBC) [Entitic vol] 90.4 fL 81-99 [facility] Mean corpuscular hemoglobin (MCH) determinationOrdered By: Alejandro Rosales on 02-25-2025 MCH (RBC) [Entitic mass] 27.6 pg 27.0-32.0 [facility] Mean corpuscular hemoglobin concentration (MCHC) determinationOrdered By: Alejandro Rosales on 02-25-2025 MCHC (RBC) [Mass/Vol] 30.5 g/dL Low 32-[address] [facility] Mean platelet volume determi nationOrdered By: Alejandro Rosales on 02-25-2025 Platelet mean volume (Bld) [Entitic vol] 10.9 fL 6.2-12.0 [facility] Microalb:Creat Ratio,Random URon 02-25-2025 Creatinine [Mass/Vol] 98.70 mg/dL Normal 28.00- 217. 00 [facility] Comment on above: Order Comment: Order Date: 02/25/25Order Info: [id number] - MIALB Performed By: #### L 502.0250 ####[facility] [address] [place], [address] MALB:CREAT 29.7 mg/g CRE Normal <30 mg/g CRE [facility] Comment on above: Order Comment: Order Date: 02/25/25Order Info: [id number] - MIALB Performed By: #### L 502.0250 ####[facility] [address] [place], [place], [address] MICROALBUMIN,UR 29.3 mg/L Normal <20 mg/L [facility] Comment on above: Order Comment: Order Date: 02/25/25Order Info: [id number] - MIALB Performed By: #### L 502.0250 ####[facility] [address] [place], [address] Monocyte percentageOrdered B y: Alejandro Rosales on 02-25-2025 Monocytes/100 WBC (Bld) 7.7 % 0-10 [facility] Neutrophil percentageOrdered By: Alejandro Rosales on 02-25-2025 Neutrophils/100 WBC (Bld) 67.3 % 47-70 [facility] Nucleated red blood cell per centageOrdered By: Alejandro Rosales on 02-25-2025 Nucleated RBC/100 WBC (Bld) [Ratio] 0 % 0-5 [facility] Platelet countOrdered By: Ike Rosales on 02-25-2025 Platelets (Bld) [#/Vol] 167 10*3/uL 150-450 [facility] Potassium measurement (mass/ volume)Ordered By: Alejandro Rosales on 02-25-2025 Potassium (Unsp spec) [Mass/Vol] 4.4 mmol/L 3.3-5.1 [facility] Comment on above: Hemolysis present, R esults could be affected. RBC Auto (Bld) [#/Vol]Ordere d By: Alejandro Rosales on 02-25-2025 RBC (Bld) [#/Vol] 5.00 10*6/uL 4.2-5.4 [facility] Random urine creatinine bessie urement (mass/volume)Ordered By: Alejandro Rosales on 02-25-2025 Creatinine Unsp time (U) [Mass/Vol] 98.70 mg/dL 28.00-217. 00 [facility] Serum creatinine measurement (mass/volume)Ordered By: Alejandro Rosales on 02-25-2025 Creatinine [Mass/Vol] 0.88 mg/dL 0.70-1.[address] [facility] Serum globulin measurementOr dered By: Alejandro Rosales on 02-25-2025 Globulin (S) [Mass/Vol] 3.5 g/dL 2.2-4.2 [facility] Serum glucose measurement (m ass/volume)Ordered By: Alejandro Rosales on 02-25-2025 Glucose [Mass/Vol] 98 mg/dL 70-99 [facility] Serum or plasma alanine herrera otransferase (ALT) measurementOrdered By: Alejandro Rosales on 02-25-2025 ALT [Catalytic activity/Vol] 7 U/L <35 [facility] Serum or plasma albumin bessie urement (mass/volume)Ordered By: Alejandro Rosales on 02-25-2025 Albumin [Mass/Vol] 3.8 g/dL 3.4-4.8 [facility] Serum or plasma albumin/glob ulin mass ratioOrdered By: Alejandro Rosales on 02-25-2025 Albumin/Globulin [Mass ratio] 1.1 {ratio} 0.9-2.4 [facility] Serum or plasma alkaline gloria sphatase measurementOrdered By: Alejandro Rosales on 02-25-2025 ALP [Catalytic activity/Vol] 117 U/L High 35-104 [facility] Serum or plasma calcium bessie urement (mass/volume)Ordered By: Alejandro Rosales on 02-25-2025 Calcium [Mass/Vol] 10.2 mg/dL 7.6-11.0 [facility] Serum or plasma ferritin ajit surement (mass/volume)Ordered By: Alejandro Rosales on 02-25-2025 Ferritin [Mass/Vol] 179 ng/mL 22-378 [facility] Serum or plasma urea nitroge n measurement (mass/volume)Ordered By: Alejandro Rosales on 02-25-2025 Urea nitrogen [Mass/Vol] 18 mg/dL 4-19 [facility] Sodium levelOrdered By: Alejandro Rosales on 02-25-2025 Sodium [Moles/Vol] 138 mmol/L 133-145 [facility] Total proteinOrdered By: Kate Rosales on 02-25-2025 Protein [Mass/Vol] 7.3 g/dL 5.9-8.4 [facility] Urine albumin measurement wi detection limit of 20 mg/L or less (mass/volume)Ordered By: Alejandro Rosales on 02-25-2025 Albumin DL <= 20 mg/L (U) [Mass/Vol] 29.3 mg/L <20 mg/L [facility] White blood cell (WBC) count Ordered By: Alejandro Rosales on 02-25-2025 WBC (Bld) [#/Vol] 8.0 10*3/uL 4.4-11.0 [facility] SP/HP.SPREEVon 02-18-2025 SP/HP.SPREEV Normal [facility] Chest without Contraston Chest without Contrast Normal [facility] 6 Minute Walk Teston 025 6 Minute Walk Test Normal [facility] Culture, Anaerobic Any Sourc maría 12-24-2024 CUAN No growth in 5 days. Normal [facility] Comment on above: Performed By: #### M 100.2900, M100.4001, M100.1999 ####[facility] [address] [place], [address] Pulmonary Visit Reporton Pulmonary Visit Report Normal [facility] Body Fluid Culton 12-23-2024 BFC No growth in 5 days. Normal [facility] Comment on above: Performed By: #### M 100.2900, M100.4001, M100.1999 ####[facility] [address] [facility] [address] Plastic Surgery Visit Report on 12-23-2024 Plastic Surgery Visit Report Normal [facility] Basic Metabolic Profile (BMP )on 12-20-2024 BUN Normal - [facility] Comment on above: Result Comment: Canc elled via OM: Order cancelled - Patient discharged Performed By: #### L 500.2500, L100.0100 ####[facility] [address] [place], [address] BUN/CRE Normal - [facility] Comment on above: Result Comment: Canc elled via OM: Order cancelled - Patient discharged Performed By: #### L 500.2500, L100.0100 ####[facility] [address] [place], [address] Calcium Normal 7.6-11.0 [facility] Comment on above: Result Comment: Canc elled via OM: Order cancelled - Patient discharged Performed By: #### L 500.2500, L100.0100 ####[facility] [address] [place], [address] CL Normal 98-108 [facility] Comment on above: Result Comment: Canc elled via OM: Order cancelled - Patient discharged Performed By: #### L 500.2500, L100.0100 ####[facility] [address] [place], [address] CO2 Normal 21.0-32.0 [facility] Comment on above: Result Comment: Canc elled via OM: Order cancelled - Patient discharged Performed By: #### L 500.2500, L100.0100 ####[facility] [address] [place], [address] CREAT,SERUM Normal 0.70-1.20 [facility] Comment on above: Result Comment: Canc elled via OM: Order cancelled - Patient discharged Performed By: #### L 500.2500, L100.0100 ####[facility] [address] [place], [address] eGFR Normal >60 [facility] Comment on above: Result Comment: Canc elled via OM: Order cancelled - Patient discharged Performed By: #### L 500.2500, L100.0100 ####[facility] [address] [place], [address] GAP Normal 5-15 [facility] Comment on above: Result Comment: Canc elled via OM: Order cancelled - Patient discharged Performed By: #### L 500.2500, L100.0100 ####[facility] [address] [place], [address] GLU Normal 70-99 [facility] Comment on above: Result Comment: Canc elled via OM: Order cancelled - Patient discharged Performed By: #### L 500.2500, L100.0100 ####[facility] [address] [place], [address] Potassium Normal 3.3-5.1 [facility] Comment on above: Result Comment: Canc elled via OM: Order cancelled - Patient discharged Performed By: #### L 500.2500, L100.0100 ####[facility] [address] [place], [address] Basic Metabolic Profile (BMP) Normal 133-145 [facility] Comment on above: Result Comment: Canc elled via OM: Order cancelled - Patient discharged Performed By: #### L 500.2500, L100.0100 ####[facility] [address] [place], [address] CBC W/Diff, Automatedon 05- Absolute Neut Normal 2.0-7.7 [facility] Comment on above: Result Comment: Canc elled via OM: Order cancelled - Patient discharged Performed By: #### L 500.2500, L100.0100 ####[facility] [address] [place], [address] HCT Normal 37-47 [facility] Comment on above: Result Comment: Canc elled via OM: Order cancelled - Patient discharged Performed By: #### L 500.2500, L100.0100 ####[facility] [address] [place], [address] HGB Normal 12.0-15.0 [facility] Comment on above: Result Comment: Canc elled via OM: Order cancelled - Patient discharged Performed By: #### L 500.2500, L100.0100 ####[facility] [address] [place], [address] MCH Normal 27.0-32.0 [facility] Comment on above: Result Comment: Canc elled via OM: Order cancelled - Patient discharged Performed By: #### L 500.2500, L100.0100 ####[facility] [address] [place], [address] MCHC Normal 32-36 [facility] Comment on above: Result Comment: Canc elled via OM: Order cancelled - Patient discharged Performed By: #### L 500.2500, L100.0100 ####[facility] [address] [place], [address] MCV Normal 81-99 [facility] Comment on above: Result Comment: Canc elled via OM: Order cancelled - Patient discharged Performed By: #### L 500.2500, L100.0100 ####[facility] [address] [place], [address] NEUT% Normal 47-70 [facility] Comment on above: Result Comment: Canc elled via OM: Order cancelled - Patient discharged Performed By: #### L 500.2500, L100.0100 ####[facility] [address] [place], [address] PLT Normal 150-450 [facility] Comment on above: Result Comment: Canc elled via OM: Order cancelled - Patient discharged Performed By: #### L 500.2500, L100.0100 ####[facility] [address] [place], [address] RBC Normal 4.2-5.4 [facility] Comment on above: Result Comment: Canc elled via OM: Order cancelled - Patient discharged Performed By: #### L 500.2500, L100.0100 ####[facility] [address] [place], [address] RDW CV Normal 11.6-14.6 [facility] Comment on above: Result Comment: Canc elled via OM: Order cancelled - Patient discharged Performed By: #### L 500.2500, L100.0100 ####[facility] [address] [place], [address] RDW SD Normal 35.1-43.9 [facility] Comment on above: Result Comment: Canc elled via OM: Order cancelled - Patient discharged Performed By: #### L 500.2500, L100.0100 ####[facility] [address] [place], [address] WBC Normal 4.4-11.0 [facility] Comment on above: Result Comment: Canc elled via OM: Order cancelled - Patient discharged Performed By: #### L 500.2500, L100.0100 ####[facility] [address] [place], [address] Absolute lymphocyte countOrd ered By: Shayla Castro on 12-19-2024 Lymphocytes Auto (Unsp spec) [#/Vol] 1.33 10*3/uL 0.83-4.51 [facility] Absolute neutrophil countOrd ered By: Shaylavelasquez Castro on 12-19-2024 Neutrophils (Bld) [#/Vol] 6.9 10*3/uL 2.0-7.7 [facility] Anion gap in Serum or Plasma Ordered By: Shayla Castro on 12-19-2024 Anion gap [Moles/Vol] 11 mmol/L 5-[address] [facility] Automated lymphocyte count a s percentage of total leukocytesOrdered By: Shayla Castro on 12-19-2024 Lymphocytes/100 WBC Auto (Unsp spec) 14.6 % Low 19-41 [facility] BUN/creatinine ratioOrdered By: Shayla Castro on 12-19-2024 Urea nitrogen/Creatinine [Mass ratio] 21.1 mg/mg High 10- [facility] Basic Metabolic Profile (BMP )on 12-19-2024 BUN/CRE 21.1 RATIO High 10- [facility] Comment on above: Performed By: #### L 500.2500, L100.0100 ####[facility] [address] [place], [address] Calcium [Mass/Vol] 9.6 mg/dL Normal 7.6-11.0 [facility] Comment on above: Performed By: #### L 500.2500, L100.0100 ####[facility] [address] [place], [address] Chloride [Moles/Vol] 105 mmol/L Normal 98-108 [facility] Comment on above: Performed By: #### L 500.2500, L100.0100 ####[facility] [address] [place], [address] CO2 [Moles/Vol] 23.1 mmol/L Normal 21.0-32.0 [facility] Comment on above: Performed By: #### L 500.2500, L100.0100 ####[facility] [address] [place], [address] Creatinine [Mass/Vol] 0.72 mg/dL Normal 0.70-1.[address] [facility] Comment on above: Performed By: #### L 500.2500, L100.0100 ####[facility] [address] [place], [address] ECRCL 73.65 ml/min Normal 50-250 [facility] Comment on above: Performed By: #### L 500.2500, L100.0100 ####[facility] [address] [place], [address] GAP 11 Normal 5-15 [facility] Comment on above: Performed By: #### L 500.2500, L100.0100 ####[facility] [address] [place], [address] GFR/1.73 sq M.predicted among non-blacks MDRD (S/P/Bld) [Vol rate/Area] 89 mL/min/{1.73_m2} Normal >60 [facility] Comment on above: Result Comment: mL/m in/1.73m2 CKD-EPI Creatinine Equation (2020) Performed By: #### L 500.2500, L100.0100 ####[facility] [address] [place], [address] Glucose [Mass/Vol] 116 mg/dL High 70-99 [facility] Comment on above: Performed By: #### L 500.2500, L100.0100 ####[facility] [address] [place], [address] Potassium [Moles/Vol] 4.2 mmol/L Normal 3.3-5.[address] [facility] Comment on above: Performed By: #### L 500.2500, L100.0100 ####[facility] [address] [place], [address] Sodium [Moles/Vol] 139 mmol/L Normal 133-145 [facility] Comment on above: Performed By: #### L 500.2500, L100.0100 ####[facility] [address] [place], [address] Urea nitrogen [Mass/Vol] 15 mg/dL Normal 4-19 [facility] Comment on above: Performed By: #### L 500.2500, L100.0100 ####[facility] [address] [place], [address] Basophil percentageOrdered B y: Shayla Castro on 12-19-2024 Basophils/100 WBC (Bld) 0.5 % 0-1 [facility] Bedside Glucoseon 12-19-2024 FINGERSTICK GLU 108 mg/dL High 74-106 [facility] Comment on above: Result Comment: FRANCINE GEMENT OF PATIENT CARE PER NURSING PROTOCOL Performed By: #### L 501.080 ####[facility] [address] [place], [address] FINGERSTICK GLU 118 mg/dL High 74-106 [facility] Comment on above: Result Comment: FRANCINE GEMENT OF PATIENT CARE PER NURSING PROTOCOL Performed By: #### L 501.080 ####[facility] [address] [place], [address] CBC W/Diff, Automatedon 05- Absolute Lymph 1.33 X10 3/uL Normal 0.83-4.51 [facility] Comment on above: Performed By: #### L 500.2500, L100.0100 ####[facility] [address] [place], [address] Absolute Neut 6.9 X10 3/uL Normal 2.0-7.7 [facility] Comment on above: Performed By: #### L 500.2500, L100.0100 ####[facility] [address] [place], [address] Basophils/100 WBC (Bld) 0.5 % Normal 0-1 [facility] Comment on above: Performed By: #### L 500.2500, L100.0100 ####[facility] [address] [place], [address] Eosinophils/100 WBC (Bld) 1.9 % Normal 0-5 [facility] Comment on above: Performed By: #### L 500.2500, L100.0100 ####[facility] [address] [place], [address] Erythrocyte distribution width (RBC) [Ratio] 14.9 % High 11.6-14.6 [facility] Comment on above: Performed By: #### L 500.2500, L100.0100 ####[facility] [address] [place], [address] Hematocrit (Bld) [Volume fraction] 46.1 % Normal 37-47 [facility] Comment on above: Performed By: #### L 500.2500, L100.0100 ####[facility] [address] [place], [address] Hemoglobin (Bld) [Mass/Vol] 14.6 g/dL Normal 12.0-15.0 [facility] Comment on above: Performed By: #### L 500.2500, L100.0100 ####[facility] [address] [place], [address] IG% 0.200 Normal 0.0-0.9 [facility] Comment on above: Result Comment: IG% - Immature Granulocytes (promyelocytes, myelocytes andmetamyelocytes) > 1% indicates that a LEFT SHIFT is Present. Performed By: #### L 500.2500, L100.0100 ####[facility] [address] [place], [address] Lymphocytes/100 WBC (Bld) 14.6 % Low 19-41 [facility] Comment on above: Performed By: #### L 500.2500, L100.0100 ####[facility] [address] [place], [address] MCH (RBC) [Entitic mass] 28.4 pg Normal 27.0-32.0 [facility] Comment on above: Performed By: #### L 500.2500, L100.0100 ####[facility] [address] [place], [address] MCHC (RBC) [Mass/Vol] 31.7 g/dL Low 32-[address] [facility] Comment on above: Performed By: #### L 500.2500, L100.0100 ####[facility] [address] [place], [address] MCV (RBC) [Entitic vol] 89.7 fL Normal 81-99 [facility] Comment on above: Performed By: #### L 500.2500, L100.0100 ####[facility] [address] [place], [address] Monocytes/100 WBC (Bld) 7.5 % Normal 0-10 [facility] Comment on above: Performed By: #### L 500.2500, L100.0100 ####[facility] [address] [place], [address] Neutrophils/100 WBC (Bld) 75.3 % High 47-70 [facility] Comment on above: Performed By: #### L 500.2500, L100.0100 ####[facility] [address] [place], [address] Nucleated RBC (Bld) [#/Vol] 0 10*3/uL Normal 0-5 [facility] Comment on above: Performed By: #### L 500.2500, L100.0100 ####[facility] [address] [place], [address] Platelet mean volume (Bld) [Entitic vol] 10.2 fL Normal 6.2-12.0 [facility] Comment on above: Performed By: #### L 500.2500, L100.0100 ####[facility] [address] [place], [address] Platelets (Bld) [#/Vol] 237 10*3/uL Normal 150-450 [facility] Comment on above: Performed By: #### L 500.2500, L100.0100 ####[facility] [address] [place], [address] RBC (Bld) [#/Vol] 5.14 10*6/uL Normal 4.2-5.4 [facility] Comment on above: Performed By: #### L 500.2500, L100.0100 ####[facility] [address] [place], [address] RDW SD 49.9 fl High 35.1-43.9 [facility] Comment on above: Performed By: #### L 500.2500, L100.0100 ####[facility] [address] [place], [address] WBC (Bld) [#/Vol] 9.1 10*3/uL Normal 4.4-11.0 [facility] Comment on above: Performed By: #### L 500.2500, L100.0100 ####[facility] [address] [place], [address] Carbon dioxide, total [Moles /volume] in Central venous bloodOrdered By: Shayla Castro on 12-19-2024 CO2 [Moles/Vol] 23.1 mmol/L 21.0-32.0 [facility] Chloride assayOrdered By: Na na Gloria on 12-19-2024 Chloride [Moles/Vol] 105 mmol/L 98-108 [facility] Discharge Instructionon 12-02 Discharge Instruction Normal [facility] Eosinophil percentageOrdered By: Shayla Castro on 12-19-2024 Eosinophils/100 WBC (Bld) 1.9 % 0-5 [facility] Erythrocyte distribution wid th ratioOrdered By: Shayla Castro on 12-19-2024 Erythrocyte distribution width (RBC) [Ratio] 14.9 % High 11.6-14.6 [facility] Erythrocyte distribution wid th standard deviationOrdered By: Shayla Castro on 12-19-2024 Erythrocyte distribution width (RBC) [Ratio] 49.9 fl High 35.1-43.9 [facility] Glomerular filtration rate ( GFR) estimation/1.73 sq m using serum, plasma, or whole bOrdered By: Shayla Castro on 12-19-2024 GFR/1.73 sq M.predicted among non-blacks MDRD (S/P/Bld) [Vol rate/Area] 89 mL/min/{1.73_m2} >60 [facility] Comment on above: mL/min/1.73m2 CKD-EP I Creatinine Equation (2020) [facility] By: Shayla Castro on 12-19-2024 Glucose [Mass/Vol] 108 mg/dL High 74-106 [facility] Comment on above: MANAGEMENT OF PATIEN T CARE PER NURSING PROTOCOL Gram Stainon 12-19-2024 GS Centrifuged Specimen ? Unable to centrifuge specimen due to insufficient volume. Gram Stain No organisms seen 4+ White Blood Cells Normal [facility] Comment on above: Performed By: #### M 100.2900, M100.4001, M100.1999 ####[facility] [address] [place], [address] Hematocrit Auto (Bld) [Volum e fraction]Ordered By: Shayla Castro on 12-19-2024 Hematocrit (Bld) [Volume fraction] 46.1 % 37-47 [facility] Hemoglobin measurementOrdere d By: Shayla Castro on 12-19-2024 Hemoglobin (Bld) [Mass/Vol] 14.6 g/dL 12.0-15.0 [facility] Immature granulocytes/100 WB C Auto (Bld)Ordered By: Shayla Castro on 12-19-2024 Immature granulocytes/100 WBC (Bld) 0.200 % 0.0-0.9 [facility] Comment on above: IG% - Immature Granu locytes (promyelocytes, myelocytes and metamyelocytes) > 1% indicates that a LEFT SHIFT is Present. MCV (mean corpuscular volume ) determinationOrdered By: Shayla Castro on 12-19-2024 MCV (RBC) [Entitic vol] 89.7 fL 81-99 [facility] Mean corpuscular hemoglobin (MCH) determinationOrdered By: Shaylavelasquez Castro 12-19-2024 MCH (RBC) [Entitic mass] 28.4 pg 27.0-32.0 [facility] Mean corpuscular hemoglobin concentration (MCHC) determinationOrdered By: Shayla Castro 12-19-2024 MCHC (RBC) [Mass/Vol] 31.7 g/dL Low 32-[address] [facility] Mean platelet volume determi nationOrdered By: Shayla Castro 12-19-2024 Platelet mean volume (Bld) [Entitic vol] 10.2 fL 6.2-12.0 [facility] Monocyte percentageOrdered B y: Shayla Castro on 12-19-2024 Monocytes/100 WBC (Bld) 7.5 % 0-10 [facility] Neutrophil percentageOrdered By: Shayla Castro on 12-19-2024 Neutrophils/100 WBC (Bld) 75.3 % High 47-70 [facility] Nucleated red blood cell per centageOrdered By: Shayla Castro 12-19-2024 Nucleated RBC/100 WBC (Bld) [Ratio] 0 % 0-5 [facility] Platelet countOrdered By: Na na Koram on 12-19-2024 Platelets (Bld) [#/Vol] 237 10*3/uL 150-450 [facility] Potassium measurement (mass/ volume)Ordered By: Shayla Gloria on 12-19-2024 Potassium (Unsp spec) [Mass/Vol] 4.2 mmol/L 3.3-5.1 [facility] RBC Auto (Bld) [#/Vol]Ordere d By: Shayla Gloria on 12-19-2024 RBC (Bld) [#/Vol] 5.14 10*6/uL 4.2-5.4 [facility] Serum creatinine measurement (mass/volume)Ordered By: Shayla Castro on 12-19-2024 Creatinine [Mass/Vol] 0.72 mg/dL 0.70-1.[address] [facility] Serum glucose measurement (m ass/volume)Ordered By: Shayla Castro on 12-19-2024 Glucose [Mass/Vol] 116 mg/dL High 70-99 [facility] Serum or plasma calcium bessie urement (mass/volume)Ordered By: Shayla Castro on 12-19-2024 Calcium [Mass/Vol] 9.6 mg/dL 7.6-11.0 [facility] Serum or plasma urea nitroge n measurement (mass/volume)Ordered By: Shayla Castro on 12-19-2024 Urea nitrogen [Mass/Vol] 15 mg/dL 4-19 [facility] Sodium levelOrdered By: Shaylavelasquez Castro on 12-19-2024 Sodium [Moles/Vol] 139 mmol/L 133-145 [facility] Vancomycin, Trough Levelon 0 12-19-2024 VANCO, TROUGH 21.0 ug/mL High 5.0-15.0 [facility] Comment on above: Order Comment: Comme nts: Trough to be drawn 30 mins prior to scheduled [id number] Result Comment: Aris mmended goal trough ranges [...] therapy recommended for serious lifethreatening infections include:- Sdbvwbhfvn-Fxenyeiynigi-Nbhammokc (Ventilator/Healtcare Associated)-SepsisPLEASE CONTACT PHARMACY SERVICES (#6169) FOR INTERPRETATIONOF RESULTS. Performed By: #### L 501.8851 ####[facility] [address] [place], [place], [id number] White blood cell (WBC) count Ordered By: Shayla Castro on 12-19-2024 WBC (Bld) [#/Vol] 9.1 10*3/uL 4.4-11.0 [facility] Absolute lymphocyte countOrd ered By: Shayla Castro on 12-18-2024 Lymphocytes Auto (Unsp spec) [#/Vol] 1.51 10*3/uL 0.83-4.51 [facility] Absolute neutrophil countOrd ered By: Shayla Castro on 12-18-2024 Neutrophils (Bld) [#/Vol] 6.4 10*3/uL 2.0-7.7 [facility] Anion gap in Serum or Plasma Ordered By: Shayla Castro on 12-18-2024 Anion gap [Moles/Vol] 11 mmol/L - [facility] Automated lymphocyte count a s percentage of total leukocytesOrdered By: Shayla Castro on 12-18-2024 Lymphocytes/100 WBC Auto (Unsp spec) 17.3 % Low 19-41 [facility] BUN/creatinine ratioOrdered By: Shayla Castro on 12-18-2024 Urea nitrogen/Creatinine [Mass ratio] 18.9 mg/mg 10- [facility] Basic Metabolic Profile (BMP )on 12-18-2024 BUN/CRE 18.9 RATIO Normal - [facility] Comment on above: Performed By: #### L 100.0100, L500.2500 ####[facility] [address] [place], [place], [id number] Calcium [Mass/Vol] 9.6 mg/dL Normal 7.6-11.0 [facility] Comment on above: Performed By: #### L 100.0100, L500.2500 ####[facility] [address] [place], [address] Chloride [Moles/Vol] 106 mmol/L Normal 98-108 [facility] Comment on above: Performed By: #### L 100.0100, L500.2500 ####[facility] [address] [place], [address] CO2 [Moles/Vol] 22.2 mmol/L Normal 21.0-32.0 [facility] Comment on above: Performed By: #### L 100.0100, L500.2500 ####[facility] [address] [place], [address] Creatinine [Mass/Vol] 0.80 mg/dL Normal 0.70-1.[address] [facility] Comment on above: Performed By: #### L 100.0100, L500.2500 ####[facility] [address] [place], [address] ECRCL 73.65 ml/min Normal 50-250 [facility] Comment on above: Performed By: #### L 100.0100, L500.2500 ####[facility] [address] [place], [address] GAP 11 Normal 5-15 [facility] Comment on above: Performed By: #### L 100.0100, L500.2500 ####[facility] [address] [place], [address] GFR/1.73 sq M.predicted among non-blacks MDRD (S/P/Bld) [Vol rate/Area] 78 mL/min/{1.73_m2} Normal >60 [facility] Comment on above: Result Comment: mL/m in/1.73m2 CKD-EPI Creatinine Equation (2020) Performed By: #### L 100.0100, L500.2500 ####[facility] [address] [place], [address] Glucose [Mass/Vol] 113 mg/dL High 70-99 [facility] Comment on above: Performed By: #### L 100.0100, L500.2500 ####[facility] [address] [place], [address] Potassium [Moles/Vol] 4.7 mmol/L Normal 3.3-5.[address] [facility] Comment on above: Result Comment: Hemo lysis present, Results??could be affected.?? Performed By: #### L 100.0100, L500.2500 ####[facility] [address] [place], [address] Sodium [Moles/Vol] 139 mmol/L Normal 133-145 [facility] Comment on above: Performed By: #### L 100.0100, L500.2500 ####[facility] [address] [place], [address] Urea nitrogen [Mass/Vol] 15 mg/dL Normal 4-19 [facility] Comment on above: Performed By: #### L 100.0100, L500.2500 ####[facility] [address] [place], [address] Basophil percentageOrdered B y: Shaylavelasquez Castro on 12-18-2024 Basophils/100 WBC (Bld) 0.6 % 0-1 [facility] Bedside Glucoseon 12-18-2024 FINGERSTICK GLU 107 mg/dL High 74-106 [facility] Comment on above: Result Comment: FRANCINE GEMENT OF PATIENT CARE PER NURSING PROTOCOL Performed By: #### L 501.080 ####[facility] [address] [place], [address] FINGERSTICK GLU 160 mg/dL High 74-106 [facility] Comment on above: Result Comment: FRANCINE GEMENT OF PATIENT CARE PER NURSING PROTOCOL Performed By: #### L 501.080 ####[facility] [address] [place], [address] FINGERSTICK GLU 108 mg/dL High 74-106 [facility] Comment on above: Result Comment: FRANCINE SKINNER OF PATIENT CARE PER NURSING PROTOCOL Performed By: #### L 501.080 ####[facility] [address] [place], [address] CBC W/Diff, Automatedon 05- Absolute Lymph 1.51 X10 3/uL Normal 0.83-4.51 [facility] Comment on above: Performed By: #### L 100.0100, L500.2500 ####[facility] [address] [place], [address] Absolute Neut 6.4 X10 3/uL Normal 2.0-7.7 [facility] Comment on above: Performed By: #### L 100.0100, L500.2500 ####[facility] [address] [place], [address] Basophils/100 WBC (Bld) 0.6 % Normal 0-1 [facility] Comment on above: Performed By: #### L 100.0100, L500.2500 ####[facility] [address] [place], [address] Eosinophils/100 WBC (Bld) 1.7 % Normal 0-5 [facility] Comment on above: Performed By: #### L 100.0100, L500.2500 ####[facility] [address] [place], [address] Erythrocyte distribution width (RBC) [Ratio] 14.9 % High 11.6-14.6 [facility] Comment on above: Performed By: #### L 100.0100, L500.2500 ####[facility] [address] [place], [address] Hematocrit (Bld) [Volume fraction] 43.5 % Normal 37-47 [facility] Comment on above: Performed By: #### L 100.0100, L500.2500 ####[facility] [address] [place], [address] Hemoglobin (Bld) [Mass/Vol] 13.8 g/dL Normal 12.0-15.0 [facility] Comment on above: Performed By: #### L 100.0100, L500.2500 ####[facility] [address] [place], [address] IG% 0.300 Normal 0.0-0.9 [facility] Comment on above: Result Comment: IG% - Immature Granulocytes (promyelocytes, myelocytes andmetamyelocytes) > 1% indicates that a LEFT SHIFT is Present. Performed By: #### L 100.0100, L500.2500 ####[facility] [address] [place], [address] Lymphocytes/100 WBC (Bld) 17.3 % Low 19-41 [facility] Comment on above: Performed By: #### L 100.0100, L500.2500 ####[facility] [address] [place], [address] MCH (RBC) [Entitic mass] 28.2 pg Normal 27.0-32.0 [facility] Comment on above: Performed By: #### L 100.0100, L500.2500 ####[facility] [address] [place], [address] MCHC (RBC) [Mass/Vol] 31.7 g/dL Low 32-[address] [facility] Comment on above: Performed By: #### L 100.0100, L500.2500 ####[facility] [address] [place], [address] MCV (RBC) [Entitic vol] 89.0 fL Normal 81-99 [facility] Comment on above: Performed By: #### L 100.0100, L500.2500 ####[facility] [address] [place], [address] Monocytes/100 WBC (Bld) 7.5 % Normal 0-10 [facility] Comment on above: Performed By: #### L 100.0100, L500.2500 ####[facility] [address] [place], [address] Neutrophils/100 WBC (Bld) 72.6 % High 47-70 [facility] Comment on above: Performed By: #### L 100.0100, L500.2500 ####[facility] [address] [place], [address] Nucleated RBC (Bld) [#/Vol] 0 10*3/uL Normal 0-5 [facility] Comment on above: Performed By: #### L 100.0100, L500.2500 ####[facility] [address] [place], [address] Platelet mean volume (Bld) [Entitic vol] 10.4 fL Normal 6.2-12.0 [facility] Comment on above: Performed By: #### L 100.0100, L500.2500 ####[facility] [address] [place], [address] Platelets (Bld) [#/Vol] 235 10*3/uL Normal 150-450 [facility] Comment on above: Performed By: #### L 100.0100, L500.2500 ####[facility] [address] [place], [address] RBC (Bld) [#/Vol] 4.89 10*6/uL Normal 4.2-5.4 [facility] Comment on above: Performed By: #### L 100.0100, L500.2500 ####[facility] [address] [place], [address] RDW SD 48.4 fl High 35.1-43.9 [facility] Comment on above: Performed By: #### L 100.0100, L500.2500 ####[facility] [address] [place], [address] WBC (Bld) [#/Vol] 8.8 10*3/uL Normal 4.4-11.0 [facility] Comment on above: Performed By: #### L 100.0100, L500.2500 ####[facility] [address] [place], [address] Carbon dioxide, total [Moles /volume] in Central venous bloodOrdered By: Shayla Castro on 12-18-2024 CO2 [Moles/Vol] 22.2 mmol/L 21.0-32.0 [facility] Chloride assayOrdered By: Zainab Castro on 12-18-2024 Chloride [Moles/Vol] 106 mmol/L 98-108 [facility] Eosinophil percentageOrdered By: Shayla Castro on 12-18-2024 Eosinophils/100 WBC (Bld) 1.7 % 0-5 [facility] Erythrocyte distribution wid th ratioOrdered By: Shayla Castro on 12-18-2024 Erythrocyte distribution width (RBC) [Ratio] 14.9 % High 11.6-14.6 [facility] Erythrocyte distribution wid th standard deviationOrdered By: Shayla Castro on 12-18-2024 Erythrocyte distribution width (RBC) [Ratio] 48.4 fl High 35.1-43.9 [facility] Glomerular filtration rate ( GFR) estimation/1.73 sq m using serum, plasma, or whole bOrdered By: Shayla Castro on 12-18-2024 GFR/1.73 sq M.predicted among non-blacks MDRD (S/P/Bld) [Vol rate/Area] 78 mL/min/{1.73_m2} >60 [facility] Comment on above: mL/min/1.73m2 CKD-EP I Creatinine Equation (2020) Glucose [facility] at [facility] deOrdered By: Shayla Castro on 12-18-2024 Glucose [Mass/Vol] 107 mg/dL High 74-106 [facility] Comment on above: MANAGEMENT OF PATIEN T CARE PER NURSING PROTOCOL Hematocrit Auto (Bld) [Volum e fraction]Ordered By: Shayla Castro on 12-18-2024 Hematocrit (Bld) [Volume fraction] 43.5 % 37-47 [facility] Hemoglobin A1con 12-18-2024 HbA1c (Bld) [Mass fraction] 6.6 % High <=5.6 [facility] Comment on above: Result Comment: Norm al < 5.7 % Prediabetic 5.7 - 6.4 % Diabetic >or= 6.5 % Please note range changes. Performed By: #### L 501.7493 ####[facility] [address] [place] [place], [address] Hemoglobin A1c percentageOrd ered By: Alejandro Baca on 12-18-2024 HbA1c (Bld) [Mass fraction] 6.6 % High <5.7 [facility] Comment on above: Normal < 5.7 % Predi abetic 5.7 - 6.4 % Diabetic >or= 6.5 % Please note range changes. Hemoglobin measurementOrdere d By: Shayla Castro on 12-18-2024 Hemoglobin (Bld) [Mass/Vol] 13.8 g/dL 12.0-15.0 [facility] Immature granulocytes/100 WB C Auto (Bld)Ordered By: Shayla Castro on 12-18-2024 Immature granulocytes/100 WBC (Bld) 0.300 % 0.0-0.9 [facility] Comment on above: IG% - Immature Granu locytes (promyelocytes, myelocytes and metamyelocytes) > 1% indicates that a LEFT SHIFT is Present. MCV (mean corpuscular volume ) determinationOrdered By: Shayla Castro on 12-18-2024 MCV (RBC) [Entitic vol] 89.0 fL 81-99 [facility] Mean corpuscular hemoglobin (MCH) determinationOrdered By: Shayla Castro on 12-18-2024 MCH (RBC) [Entitic mass] 28.2 pg 27.0-32.0 [facility] Mean corpuscular hemoglobin concentration (MCHC) determinationOrdered By: Shayla Castro on 12-18-2024 MCHC (RBC) [Mass/Vol] 31.7 g/dL Low 32-[address] [facility] Mean platelet volume determi nationOrdered By: Shayla Castro on 12-18-2024 Platelet mean volume (Bld) [Entitic vol] 10.4 fL 6.2-12.0 [facility] Monocyte percentageOrdered B y: Shayla Castro on 12-18-2024 Monocytes/100 WBC (Bld) 7.5 % 0-10 [facility] Neutrophil percentageOrdered By: Shayla Castro on 12-18-2024 Neutrophils/100 WBC (Bld) 72.6 % High 47-70 [facility] Nucleated red blood cell per centageOrdered By: Shayla Castro on 12-18-2024 Nucleated RBC/100 WBC (Bld) [Ratio] 0 % 0-5 [facility] Platelet countOrdered By: Zainab Castro on 12-18-2024 Platelets (Bld) [#/Vol] 235 10*3/uL 150-450 [facility] Potassium measurement (mass/ volume)Ordered By: Shayla Castro on 12-18-2024 Potassium (Unsp spec) [Mass/Vol] 4.7 mmol/L 3.3-5.1 [facility] Comment on above: Hemolysis present, R esults could be affected. RBC Auto (Bld) [#/Vol]Ordere d By: Shayla Castro on 12-18-2024 RBC (Bld) [#/Vol] 4.89 10*6/uL 4.2-5.4 [facility] Serum creatinine measurement (mass/volume)Ordered By: Shayla Castro on 12-18-2024 Creatinine [Mass/Vol] 0.80 mg/dL 0.70-1.[address] [facility] Serum glucose measurement (m ass/volume)Ordered By: Shayla Castro on 12-18-2024 Glucose [Mass/Vol] 113 mg/dL High 70-99 [facility] Serum or plasma calcium bessie urement (mass/volume)Ordered By: Shayla Castro on 12-18-2024 Calcium [Mass/Vol] 9.6 mg/dL 7.6-11.0 [facility] Serum or plasma urea nitroge n measurement (mass/volume)Ordered By: Shayla Castro on 12-18-2024 Urea nitrogen [Mass/Vol] 15 mg/dL 4-19 [facility] Sodium levelOrdered By: Shayla Castro on 12-18-2024 Sodium [Moles/Vol] 139 mmol/L 133-145 [facility] Trough vancomycin levelOrder ed By: Shayla Castro on 12-18-2024 Vancomycin trough [Mass/Vol] 21.0 ug/mL High 5.0-15.0 [facility] Comment on above: Recommended goal tro [...] therapy recommended for serious lifethreatening infections include:- Uehyfhjpso-Qkyqzhidcnht-Denlibtrn (Ventilator/Healtcare Associated)-Sepsis PLEASE CONTACT PHARMACY SERVICES (#5262) FOR INTERPRETATIONOF RESULTS. White blood cell (WBC) count Ordered By: Shayla Castro on 12-18-2024 WBC (Bld) [#/Vol] 8.8 10*3/uL 4.4-11.0 [facility] 12 Lead EKGon 12-17-2024 12 Lead EKG Normal [facility] Absolute lymphocyte countOrd ered By: Tang Mendiola on 12-17-2024 Lymphocytes Auto (Unsp spec) [#/Vol] 1.23 10*3/uL 0.83-4.51 [facility] Absolute neutrophil countOrd ered By: Tang Mendiola on 12-17-2024 Neutrophils (Bld) [#/Vol] 6.1 10*3/uL 2.0-7.7 [facility] Anaerobic cultureOrdered By: Tang Mendiola on 12-17-2024 Bacteria identified Anaer cx Nom (Unsp spec) No growth in 5 days. [facility] Anion gap in Serum or Plasma Ordered By: Tang Mendiola on 12-17-2024 Anion gap [Moles/Vol] 10 mmol/L 5-[address] [facility] Automated lymphocyte count a s percentage of total leukocytesOrdered By: Tang Mendiola on 12-17-2024 Lymphocytes/100 WBC Auto (Unsp spec) 14.9 % Low 19-41 [facility] BUN/creatinine ratioOrdered By: Tang Mendiola on 12-17-2024 Urea nitrogen/Creatinine [Mass ratio] 22.7 mg/mg High 10-20 [facility] Basic Metabolic Profile (BMP )on 12-17-2024 BUN/CRE 22.7 RATIO High 10-20 [facility] Comment on above: Performed By: #### L 100.0100, L501.6710, L101.9900, L500.2500 ####[facility] [address] [place], [address] Calcium [Mass/Vol] 9.6 mg/dL Normal 7.6-11.0 [facility] Comment on above: Performed By: #### L 100.0100, L501.6710, L101.9900, L500.2500 ####[facility] [address] [place], [address] Chloride [Moles/Vol] 102 mmol/L Normal 98-108 [facility] Comment on above: Performed By: #### L 100.0100, L501.6710, L101.9900, L500.2500 ####[facility] [address] [place], [address] CO2 [Moles/Vol] 24.6 mmol/L Normal 21.0-32.0 [facility] Comment on above: Performed By: #### L 100.0100, L501.6710, L101.9900, L500.2500 ####[facility] [address] [place], [address] Creatinine [Mass/Vol] 0.79 mg/dL Normal 0.70-1.[address] [facility] Comment on above: Performed By: #### L 100.0100, L501.6710, L101.9900, L500.2500 ####[facility] [address] [place], [address] ECRCL 75.70 ml/min Normal 50-250 [facility] Comment on above: Performed By: #### L 100.0100, L501.6710, L101.9900, L500.2500 ####[facility] [address] [place], [address] GAP 10 Normal 5-15 [facility] Comment on above: Performed By: #### L 100.0100, L501.6710, L101.9900, L500.2500 ####[facility] [address] [place], [address] GFR/1.73 sq M.predicted among non-blacks MDRD (S/P/Bld) [Vol rate/Area] 80 mL/min/{1.73_m2} Normal >60 [facility] Comment on above: Result Comment: mL/m in/1.73m2 CKD-EPI Creatinine Equation (2020) Performed By: #### L 100.0100, L501.6710, L101.9900, L500.2500 ####[facility] [address] [place], [address] Glucose [Mass/Vol] 146 mg/dL High 70-99 [facility] Comment on above: Performed By: #### L 100.0100, L501.6710, L101.9900, L500.2500 ####[facility] [address] [place], [address] Potassium [Moles/Vol] 4.0 mmol/L Normal 3.3-5.[address] [facility] Comment on above: Performed By: #### L 100.0100, L501.6710, L101.9900, L500.2500 ####[facility] [address] [place], [address] Sodium [Moles/Vol] 136 mmol/L Normal 133-145 [facility] Comment on above: Performed By: #### L 100.0100, L501.6710, L101.9900, L500.2500 ####[facility] [address] [place], [address] Urea nitrogen [Mass/Vol] 18 mg/dL Normal 4-19 [facility] Comment on above: Performed By: #### L 100.0100, L501.6710, L101.9900, L500.2500 ####[facility] [address] [place], [address] Basophil percentageOrdered B y: Tang Mendiola on 12-17-2024 Basophils/100 WBC (Bld) 0.6 % 0-1 [facility] Bedside Glucoseon 12-17-2024 FINGERSTICK GLU 125 mg/dL High 74-106 [facility] Comment on above: Result Comment: FRANCINE GEMENT OF PATIENT CARE PER NURSING PROTOCOL Performed By: #### L 501.080 ####[facility] [address] [place], [address] FINGERSTICK GLU 163 mg/dL High 74-106 [facility] Comment on above: Result Comment: FRANCINE GEMENT OF PATIENT CARE PER NURSING PROTOCOL Performed By: #### L 501.080 ####[facility] [address] [place], [address] CBC W/Diff, Automatedon 05- Absolute Lymph 1.23 X10 3/uL Normal 0.83-4.51 [facility] Comment on above: Performed By: #### L 100.0100, L501.6710, L101.9900, L500.2500 ####[facility] [address] [place], [address] Absolute Neut 6.1 X10 3/uL Normal 2.0-7.7 [facility] Comment on above: Performed By: #### L 100.0100, L501.6710, L101.9900, L500.2500 ####[facility] [address] [place], [address] Basophils/100 WBC (Bld) 0.6 % Normal 0-1 [facility] Comment on above: Performed By: #### L 100.0100, L501.6710, L101.9900, L500.2500 ####[facility] [address] [place], [address] Eosinophils/100 WBC (Bld) 1.1 % Normal 0-5 [facility] Comment on above: Performed By: #### L 100.0100, L501.6710, L101.9900, L500.2500 ####[facility] [address] [place], [address] Erythrocyte distribution width (RBC) [Ratio] 15.1 % High 11.6-14.6 [facility] Comment on above: Performed By: #### L 100.0100, L501.6710, L101.9900, L500.2500 ####[facility] [address] [place], [address] Hematocrit (Bld) [Volume fraction] 43.0 % Normal 37-47 [facility] Comment on above: Performed By: #### L 100.0100, L501.6710, L101.9900, L500.2500 ####[facility] [address] [place], [address] Hemoglobin (Bld) [Mass/Vol] 13.9 g/dL Normal 12.0-15.0 [facility] Comment on above: Performed By: #### L 100.0100, L501.6710, L101.9900, L500.2500 ####[facility] [address] [place], [address] IG% 0.500 Normal 0.0-0.9 [facility] Comment on above: Result Comment: IG% - Immature Granulocytes (promyelocytes, myelocytes andmetamyelocytes) > 1% indicates that a LEFT SHIFT is Present. Performed By: #### L 100.0100, L501.6710, L101.9900, L500.2500 ####[facility] [address] [place], [address] Lymphocytes/100 WBC (Bld) 14.9 % Low 19-41 [facility] Comment on above: Performed By: #### L 100.0100, L501.6710, L101.9900, L500.2500 ####[facility] [address] [place], [address] MCH (RBC) [Entitic mass] 28.3 pg Normal 27.0-32.0 [facility] Comment on above: Performed By: #### L 100.0100, L501.6710, L101.9900, L500.2500 ####[facility] [address] [place], [address] MCHC (RBC) [Mass/Vol] 32.3 g/dL Normal 32-[address] [facility] Comment on above: Performed By: #### L 100.0100, L501.6710, L101.9900, L500.2500 ####[facility] [address] [place], [address] MCV (RBC) [Entitic vol] 87.4 fL Normal 81-99 [facility] Comment on above: Performed By: #### L 100.0100, L501.6710, L101.9900, L500.2500 ####[facility] [address] [place], [address] Monocytes/100 WBC (Bld) 8.6 % Normal 0-10 [facility] Comment on above: Performed By: #### L 100.0100, L501.6710, L101.9900, L500.2500 ####[facility] [address] [place], [address] Neutrophils/100 WBC (Bld) 74.3 % High 47-70 [facility] Comment on above: Performed By: #### L 100.0100, L501.6710, L101.9900, L500.2500 ####[facility] [address] [place], [address] Nucleated RBC (Bld) [#/Vol] 0 10*3/uL Normal 0-5 [facility] Comment on above: Performed By: #### L 100.0100, L501.6710, L101.9900, L500.2500 ####[facility] [address] [place], [address] Platelet mean volume (Bld) [Entitic vol] 10.2 fL Normal 6.2-12.0 [facility] Comment on above: Performed By: #### L 100.0100, L501.6710, L101.9900, L500.2500 ####[facility] [address] [place], [address] Platelets (Bld) [#/Vol] 227 10*3/uL Normal 150-450 [facility] Comment on above: Performed By: #### L 100.0100, L501.6710, L101.9900, L500.2500 ####[facility] [address] [place], [address] RBC (Bld) [#/Vol] 4.92 10*6/uL Normal 4.2-5.4 [facility] Comment on above: Performed By: #### L 100.0100, L501.6710, L101.9900, L500.2500 ####[facility] [address] [place], [address] RDW SD 48.6 fl High 35.1-43.9 [facility] Comment on above: Performed By: #### L 100.0100, L501.6710, L101.9900, L500.2500 ####[facility] [address] [place], [address] WBC (Bld) [#/Vol] 8.2 10*3/uL Normal 4.4-11.0 [facility] Comment on above: Performed By: #### L 100.0100, L501.6710, L101.9900, L500.2500 ####[facility] [address] [place], [address] CRPon 12-17-2024 C-REACTIVE PROT 32.40 mg/L High 0.0-3.0 [facility] Comment on above: Performed By: #### L 100.0100, L501.6710, L101.9900, L500.2500 ####[facility] [address] [place], [address] Carbon dioxide, total [Moles /volume] in Central venous bloodOrdered By: Tang Mendiola on 12-17-2024 CO2 [Moles/Vol] 24.6 mmol/L 21.0-32.0 [facility] Chloride assayOrdered By: Erasmo Mendiola on 12-17-2024 Chloride [Moles/Vol] 102 mmol/L 98-108 [facility] Consultation - Surgicalon Consultation - Surgical Normal [facility] Emergency Department Summary on 12-17-2024 Emergency Department Summary Normal [facility] Eosinophil percentageOrdered By: Tang Mendiola on 12-17-2024 Eosinophils/100 WBC (Bld) 1.1 % 0-5 [facility] Erythrocyte Sed Rateon 12-17 SED RATE 48 mm/hr High 0-30 [facility] Comment on above: Performed By: #### L 100.0100, L501.6710, L101.9900, L500.2500 ####[facility] [address] [place], [address] Erythrocyte distribution wid th ratioOrdered By: Tang Mendiola on 12-17-2024 Erythrocyte distribution width (RBC) [Ratio] 15.1 % High 11.6-14.6 [facility] Erythrocyte distribution wid th standard deviationOrdered By: Tang Mendiola on 12-17-2024 Erythrocyte distribution width (RBC) [Ratio] 48.6 fl High 35.1-43.9 [facility] Erythrocyte sedimentation ra teOrdered By: Tang Mendiola on 12-17-2024 ESR (Bld) [Velocity] 48 mm/h High 0-30 [facility] Glomerular filtration rate ( GFR) estimation/1.73 sq m using serum, plasma, or whole bOrdered By: Tang Mendiola on 12-17-2024 GFR/1.73 sq M.predicted among non-blacks MDRD (S/P/Bld) [Vol rate/Area] 80 mL/min/{1.73_m2} >60 [facility] Comment on above: mL/min/1.73m2 CKD-EP I Creatinine Equation (2020) Gram stainOrdered By: Tang cardenas on 12-17-2024 Microscopic observation Gram stain Nom (Unsp spec) [facility] H AND P Exam - Hospitaliston 12-17-2024 H&P Exam - Hospitalist Normal [facility] Hematocrit Auto (Bld) [Volum e fraction]Ordered By: Tang Mendiola on 12-17-2024 Hematocrit (Bld) [Volume fraction] 43.0 % 37-47 [facility] Hemoglobin measurementOrdere d By: Tang Mendiola on 12-17-2024 Hemoglobin (Bld) [Mass/Vol] 13.9 g/dL 12.0-15.0 [facility] Immature granulocytes/100 WB C Auto (Bld)Ordered By: Tang Mendiola on 12-17-2024 Immature granulocytes/100 WBC (Bld) 0.500 % 0.0-0.9 [facility] Comment on above: IG% - Immature Granu locytes (promyelocytes, myelocytes and metamyelocytes) > 1% indicates that a LEFT SHIFT is Present. MCV (mean corpuscular volume ) determinationOrdered By: Tang Mendiola on 12-17-2024 MCV (RBC) [Entitic vol] 87.4 fL 81-99 [facility] Mean corpuscular hemoglobin (MCH) determinationOrdered By: Tang Mendiola on 12-17-2024 MCH (RBC) [Entitic mass] 28.3 pg 27.0-32.0 [facility] Mean corpuscular hemoglobin concentration (MCHC) determinationOrdered By: Tang Mendiola on 12-17-2024 MCHC (RBC) [Mass/Vol] 32.3 g/dL 32-[address] [facility] Mean platelet volume determi nationOrdered By: Tang Mendiola on 12-17-2024 Platelet mean volume (Bld) [Entitic vol] 10.2 fL 6.2-12.0 [facility] Monocyte percentageOrdered B y: Tang Mendiola on 12-17-2024 Monocytes/100 WBC (Bld) 8.6 % 0-10 [facility] Neutrophil percentageOrdered By: Tang Mendiola on 12-17-2024 Neutrophils/100 WBC (Bld) 74.3 % High 47-70 [facility] Nucleated red blood cell per centageOrdered By: Tang Mendiola on 12-17-2024 Nucleated RBC/100 WBC (Bld) [Ratio] 0 % 0-5 [facility] Platelet countOrdered By: Erasmo Mendiola on 12-17-2024 Platelets (Bld) [#/Vol] 227 10*3/uL 150-450 [facility] Potassium measurement (mass/ volume)Ordered By: Tang Mendiola on 12-17-2024 Potassium (Unsp spec) [Mass/Vol] 4.0 mmol/L 3.3-5.1 [facility] RBC Auto (Bld) [#/Vol]Ordere d By: Tang Mendiola on 12-17-2024 RBC (Bld) [#/Vol] 4.92 10*6/uL 4.2-5.4 [facility] Serum creatinine measurement (mass/volume)Ordered By: Tang Mendiola on 12-17-2024 Creatinine [Mass/Vol] 0.79 mg/dL 0.70-1.[address] [facility] Serum glucose measurement (m ass/volume)Ordered By: Tang Mendiola on 12-17-2024 Glucose [Mass/Vol] 146 mg/dL High 70-99 [facility] Serum or plasma C reactive p rotein measurement (mass/volume)Ordered By: Tang Mendiola on 12-17-2024 CRP [Mass/Vol] 32.40 mg/L High 0.0-3.0 [facility] Serum or plasma calcium bessie urement (mass/volume)Ordered By: Tang Mendiola on 12-17-2024 Calcium [Mass/Vol] 9.6 mg/dL 7.6-11.0 [facility] Serum or plasma urea nitroge n measurement (mass/volume)Ordered By: Tnag Mendiola on 12-17-2024 Urea nitrogen [Mass/Vol] 18 mg/dL 4-19 [facility] Serum or plasma uric acid me asurement (mass/volume)Ordered By: Shayla Castro on 12-17-2024 Urate [Mass/Vol] 5.2 mg/dL 2.6-6.0 [facility] Comment on above: The drugs N-Acetylcy steine and Metamizole may falsely depress this assay. Sodium levelOrdered By: Tang Mendiola on 12-17-2024 Sodium [Moles/Vol] 136 mmol/L 133-145 [facility] Uric Acidon 12-17-2024 URIC 5.2 mg/dL Normal 2.6-6.0 [facility] Comment on above: Result Comment: The drugs N-Acetylcysteine and Metamizole may falselydepress this assay. Performed By: #### L 501.1400 ####[facility] [address] [place], [address] White blood cell (WBC) count Ordered By: Tang Mendiola on 12-17-2024 WBC (Bld) [#/Vol] 8.2 10*3/uL 4.4-11.0 [facility] Wrist min 3 Viewson 12-18-19 25 Wrist min 3 Views Normal [facility] Ankle Brachial Indexon 12-15 Ankle Brachial Index Normal [facility] Carotid Duplex Ultrasoundon 12-15-2024 Carotid Duplex Ultrasound Normal [facility] Oncology Visit Reporton Oncology Visit Report Normal [facility] Neurology Visit Reporton Neurology Visit Report Normal [facility] Surgery Visit Reporton 12-07 Surgery Visit Report Normal [facility] SP/HP.SP.Ed 11-30-2024 SP/HP.SP.EV Normal [facility] Bedside Glucoseon 11-26-2024 FINGERSTICK GLU 146 mg/dL High 74-106 [facility] Comment on above: Result Comment: FRANCINE GEMENT OF PATIENT CARE PER NURSING PROTOCOL Performed By: #### L 501.080 ####[facility] [address] [facility] [address] FINGERSTICK GLU 151 mg/dL High 74-106 [facility] Comment on above: Result Comment: FRANCINE GEMENT OF PATIENT CARE PER NURSING PROTOCOL Performed By: #### L 501.080 ####[facility] [address] [facility] [address] [facility] at [facility] deOrdered By: Ada Soliman on 11-26-2024 Glucose [Mass/Vol] 146 mg/dL High 74-106 [facility] Comment on above: MANAGEMENT OF PATIEN T CARE PER NURSING PROTOCOL Bedside Glucoseon 11-25-2024 FINGERSTICK GLU 109 mg/dL High 74-106 [facility] Comment on above: Result Comment: FRANCINE GEMENT OF PATIENT CARE PER NURSING PROTOCOL Performed By: #### L 501.080 ####[facility] [address] [facility] [address] FINGERSTICK GLU 134 mg/dL High 74-106 [facility] Comment on above: Result Comment: FRANCINE GEMENT OF PATIENT CARE PER NURSING PROTOCOL Performed By: #### L 501.080 ####[facility] [address] [facility] [address] Discharge Instructionon 11-03 Discharge Instruction Normal [facility] Bedside Glucoseon 11-24-2024 FINGERSTICK GLU 142 mg/dL High 74-106 [facility] Comment on above: Result Comment: FRANCINE GEMENT OF PATIENT CARE PER NURSING PROTOCOL Performed By: #### L 501.080 ####[facility] [address] [place], [address] FINGERSTICK GLU 123 mg/dL High 74-106 [facility] Comment on above: Result Comment: FRANCINE GEMENT OF PATIENT CARE PER NURSING PROTOCOL Performed By: #### L 501.080 ####[facility] [address] [place], [address] Absolute lymphocyte countOrd ered By: Ada Soliman on 11-23-2024 Lymphocytes Auto (Unsp spec) [#/Vol] 2.14 10*3/uL 0.83-4.51 [facility] Absolute neutrophil countOrd ered By: Ada Soliman on 11-23-2024 Neutrophils (Bld) [#/Vol] 5.8 10*3/uL 2.0-7.7 [facility] Anion gap in Serum or Plasma Ordered By: Ada Soliman on 11-23-2024 Anion gap [Moles/Vol] 12 mmol/L 5-[address] [facility] Automated lymphocyte count a s percentage of total leukocytesOrdered By: Ada Soliman on 11-23-2024 Lymphocytes/100 WBC Auto (Unsp spec) 24.4 % 19-41 [facility] BUN/creatinine ratioOrdered By: Ada Soliman on 11-23-2024 Urea nitrogen/Creatinine [Mass ratio] 23.8 mg/mg High 10-20 [facility] Basophil percentageOrdered B y: Ada Soliman on 11-23-2024 Basophils/100 WBC (Bld) 0.6 % 0-1 [facility] Bedside Glucoseon 11-23-2024 FINGERSTICK GLU 132 mg/dL High 74-106 [facility] Comment on above: Result Comment: FRANCINE GEMENT OF PATIENT CARE PER NURSING PROTOCOL Performed By: #### L 501.080 ####[facility] [address] [place], [address] FINGERSTICK GLU 123 mg/dL High 74-106 [facility] Comment on above: Result Comment: FRANCINE GEMENT OF PATIENT CARE PER NURSING PROTOCOL Performed By: #### L 501.080 ####[facility] [address] [place], [address] Bilirubin, totalOrdered By: Ada Soliman on 11-23-2024 Bilirubin [Mass/Vol] 0.42 mg/dL 0.00-1.30 [facility] CBC W/Diff, Automatedon 11-03 Absolute Lymph 2.14 X10 3/uL Normal 0.83-4.51 [facility] Comment on above: Performed By: #### L 501.5200, L100.0100, L501.2300, L500.4050 ####[facility] [address] [place], [address] Absolute Neut 5.8 X10 3/uL Normal 2.0-7.7 [facility] Comment on above: Performed By: #### L 501.5200, L100.0100, L501.2300, L500.4050 ####[facility] [address] [place], [address] Basophils/100 WBC (Bld) 0.6 % Normal 0-1 [facility] Comment on above: Performed By: #### L 501.5200, L100.0100, L501.2300, L500.4050 ####[facility] [address] [place], [address] Eosinophils/100 WBC (Bld) 1.4 % Normal 0-5 [facility] Comment on above: Performed By: #### L 501.5200, L100.0100, L501.2300, L500.4050 ####[facility] [address] [place], [address] Erythrocyte distribution width (RBC) [Ratio] 15.3 % High 11.6-14.6 [facility] Comment on above: Performed By: #### L 501.5200, L100.0100, L501.2300, L500.4050 ####[facility] [address] [place], [address] Hematocrit (Bld) [Volume fraction] 45.2 % Normal 37-47 [facility] Comment on above: Performed By: #### L 501.5200, L100.0100, L501.2300, L500.4050 ####[facility] [address] [place], [address] Hemoglobin (Bld) [Mass/Vol] 14.4 g/dL Normal 12.0-15.0 [facility] Comment on above: Performed By: #### L 501.5200, L100.0100, L501.2300, L500.4050 ####[facility] [address] [place], [address] IG% 0.300 Normal 0.0-0.9 [facility] Comment on above: Result Comment: IG% - Immature Granulocytes (promyelocytes, myelocytes andmetamyelocytes) > 1% indicates that a LEFT SHIFT is Present. Performed By: #### L 501.5200, L100.0100, L501.2300, L500.4050 ####[facility] [address] [place], [address] Lymphocytes/100 WBC (Bld) 24.4 % Normal 19-41 [facility] Comment on above: Performed By: #### L 501.5200, L100.0100, L501.2300, L500.4050 ####[facility] [address] [place], [address] MCH (RBC) [Entitic mass] 28.2 pg Normal 27.0-32.0 [facility] Comment on above: Performed By: #### L 501.5200, L100.0100, L501.2300, L500.4050 ####[facility] [address] [place], [address] MCHC (RBC) [Mass/Vol] 31.9 g/dL Low 32-[address] [facility] Comment on above: Performed By: #### L 501.5200, L100.0100, L501.2300, L500.4050 ####[facility] [address] [place], [address] MCV (RBC) [Entitic vol] 88.5 fL Normal 81-99 [facility] Comment on above: Performed By: #### L 501.5200, L100.0100, L501.2300, L500.4050 ####[facility] [address] [place], [address] Monocytes/100 WBC (Bld) 6.7 % Normal 0-10 [facility] Comment on above: Performed By: #### L 501.5200, L100.0100, L501.2300, L500.4050 ####[facility] [address] [place], [address] Neutrophils/100 WBC (Bld) 66.6 % Normal 47-70 [facility] Comment on above: Performed By: #### L 501.5200, L100.0100, L501.2300, L500.4050 ####[facility] [address] [place], [address] Nucleated RBC (Bld) [#/Vol] 0 10*3/uL Normal 0-5 [facility] Comment on above: Performed By: #### L 501.5200, L100.0100, L501.2300, L500.4050 ####[facility] [address] [place], [address] Platelet mean volume (Bld) [Entitic vol] 9.9 fL Normal 6.2-12.0 [facility] Comment on above: Performed By: #### L 501.5200, L100.0100, L501.2300, L500.4050 ####[facility] [address] [place], [address] Platelets (Bld) [#/Vol] 264 10*3/uL Normal 150-450 [facility] Comment on above: Performed By: #### L 501.5200, L100.0100, L501.2300, L500.4050 ####[facility] [address] [place], [address] RBC (Bld) [#/Vol] 5.11 10*6/uL Normal 4.2-5.4 [facility] Comment on above: Performed By: #### L 501.5200, L100.0100, L501.2300, L500.4050 ####[facility] [address] [place], [address] RDW SD 48.8 fl High 35.1-43.9 [facility] Comment on above: Performed By: #### L 501.5200, L100.0100, L501.2300, L500.4050 ####[facility] [address] [place], [address] WBC (Bld) [#/Vol] 8.8 10*3/uL Normal 4.4-11.0 [facility] Comment on above: Performed By: #### L 501.5200, L100.0100, L501.2300, L500.4050 ####[facility] [address] [place], [address] Carbon dioxide, total [Moles /volume] in Central venous bloodOrdered By: Ada Soliman on 11-23-2024 CO2 [Moles/Vol] 20.8 mmol/L Low 21.0-32.0 [facility] Chloride assayOrdered By: Mary Lou Soliman on 11-23-2024 Chloride [Moles/Vol] 105 mmol/L 98-108 [facility] Comprehensive Metabolic Prof ilon 11-23-2024 Albumin [Mass/Vol] 3.9 g/dL Normal 3.4-4.8 [facility] Comment on above: Performed By: #### L 501.5200, L100.0100, L501.2300, L500.4050 ####[facility] [address] [place], [address] Albumin/Globulin [Mass ratio] 1.1 {ratio} Normal 0.9-2.4 [facility] Comment on above: Performed By: #### L 501.5200, L100.0100, L501.2300, L500.4050 ####[facility] [address] [place], [address] ALK PHOS 91 U/L Normal 35-104 [facility] Comment on above: Performed By: #### L 501.5200, L100.0100, L501.2300, L500.4050 ####[facility] [address] [place], [address] ALT [Catalytic activity/Vol] 15 U/L Normal <=34 [facility] Comment on above: Performed By: #### L 501.5200, L100.0100, L501.2300, L500.4050 ####[facility] [address] [place], [address] AST [Catalytic activity/Vol] 25 U/L Normal <=31 [facility] Comment on above: Performed By: #### L 501.5200, L100.0100, L501.2300, L500.4050 ####[facility] [address] [place], [address] Bilirubin [Mass/Vol] 0.42 mg/dL Normal 0.00-1.30 [facility] Comment on above: Performed By: #### L 501.5200, L100.0100, L501.2300, L500.4050 ####[facility] [address] [place], [address] BUN/CRE 23.8 RATIO High 10-20 [facility] Comment on above: Performed By: #### L 501.5200, L100.0100, L501.2300, L500.4050 ####[facility] [address] [place], [address] Calcium [Mass/Vol] 9.7 mg/dL Normal 7.6-11.0 [facility] Comment on above: Performed By: #### L 501.5200, L100.0100, L501.2300, L500.4050 ####[facility] [address] [place], [address] Chloride [Moles/Vol] 105 mmol/L Normal 98-108 [facility] Comment on above: Performed By: #### L 501.5200, L100.0100, L501.2300, L500.4050 ####[facility] [address] [place], [address] CO2 [Moles/Vol] 20.8 mmol/L Low 21.0-32.0 [facility] Comment on above: Performed By: #### L 501.5200, L100.0100, L501.2300, L500.4050 ####[facility] [address] [place], [address] Creatinine [Mass/Vol] 0.82 mg/dL Normal 0.70-1.[address] [facility] Comment on above: Performed By: #### L 501.5200, L100.0100, L501.2300, L500.4050 ####[facility] [address] [place], [address] ECRCL 74.17 ml/min Normal 50-250 [facility] Comment on above: Performed By: #### L 501.5200, L100.0100, L501.2300, L500.4050 ####[facility] [address] [place], [address] GAP 12 Normal 5-15 [facility] Comment on above: Performed By: #### L 501.5200, L100.0100, L501.2300, L500.4050 ####[facility] [address] [place], [address] GFR/1.73 sq M.predicted among non-blacks MDRD (S/P/Bld) [Vol rate/Area] 76 mL/min/{1.73_m2} Normal >60 [facility] Comment on above: Result Comment: mL/m in/1.73m2 CKD-EPI Creatinine Equation (2020) Performed By: #### L 501.5200, L100.0100, L501.2300, L500.4050 ####[facility] [address] [place], [address] Globulin (S) [Mass/Vol] 3.5 g/dL Normal 2.2-4.2 [facility] Comment on above: Performed By: #### L 501.5200, L100.0100, L501.2300, L500.4050 ####[facility] [address] [place], [address] Glucose [Mass/Vol] 132 mg/dL High 70-99 [facility] Comment on above: Performed By: #### L 501.5200, L100.0100, L501.2300, L500.4050 ####[facility] [address] [place], [address] Potassium [Moles/Vol] 4.2 mmol/L Normal 3.3-5.[address] [facility] Comment on above: Performed By: #### L 501.5200, L100.0100, L501.2300, L500.4050 ####[facility] [address] [place], [address] Sodium [Moles/Vol] 137 mmol/L Normal 133-145 [facility] Comment on above: Performed By: #### L 501.5200, L100.0100, L501.2300, L500.4050 ####[facility] [address] [place], [address] T PROT 7.4 g/dL Normal 5.9-8.4 [facility] Comment on above: Performed By: #### L 501.5200, L100.0100, L501.2300, L500.4050 ####[facility] [address] [place], [address] Urea nitrogen [Mass/Vol] 20 mg/dL High 4-19 [facility] Comment on above: Performed By: #### L 501.5200, L100.0100, L501.2300, L500.4050 ####[facility] [address] [place], [address] Eosinophil percentageOrdered By: Ada Soliman on 11-23-2024 Eosinophils/100 WBC (Bld) 1.4 % 0-5 [facility] Erythrocyte distribution wid th ratioOrdered By: Ada Soliman on 11-23-2024 Erythrocyte distribution width (RBC) [Ratio] 15.3 % High 11.6-14.6 [facility] Erythrocyte distribution wid th standard deviationOrdered By: Ada Soliman on 11-23-2024 Erythrocyte distribution width (RBC) [Ratio] 48.8 fl High 35.1-43.9 [facility] Glomerular filtration rate ( GFR) estimation/1.73 sq m using serum, plasma, or whole bOrdered By: Ada Soliman on 11-23-2024 GFR/1.73 sq M.predicted among non-blacks MDRD (S/P/Bld) [Vol rate/Area] 76 mL/min/{1.73_m2} >60 [facility] Comment on above: mL/min/1.73m2 CKD-EP I Creatinine Equation (2020) Hematocrit Auto (Bld) [Volum e fraction]Ordered By: Ada Soliman on 11-23-2024 Hematocrit (Bld) [Volume fraction] 45.2 % 37-47 [facility] Hemoglobin measurementOrdere d By: Ada Soliman on 11-23-2024 Hemoglobin (Bld) [Mass/Vol] 14.4 g/dL 12.0-15.0 [facility] Immature granulocytes/100 WB C Auto (Bld)Ordered By: Ada Soliman on 11-23-2024 Immature granulocytes/100 WBC (Bld) 0.300 % 0.0-0.9 [facility] Comment on above: IG% - Immature Granu locytes (promyelocytes, myelocytes and metamyelocytes) > 1% indicates that a LEFT SHIFT is Present. Laboratory - Chemistry and C hemistry - challengeOrdered By: Ada Soliman on 11-23-2024 AST [Catalytic activity/Vol] 25 U/L <32 [facility] MCV (mean corpuscular volume ) determinationOrdered By: Ada Soliman on 11-23-2024 MCV (RBC) [Entitic vol] 88.5 fL 81-99 [facility] Magnesiumon 11-23-2024 Magnesium [Mass/Vol] 2.1 mg/dL Normal 1.5-2.2 [facility] Comment on above: Performed By: #### L 501.5200, L100.0100, L501.2300, L500.4050 ####[facility] [address] [place], [address] Magnesium measurement (mass/ volume)Ordered By: Ada Soliman on 11-23-2024 Magnesium (Unsp spec) [Mass/Vol] 2.1 mg/dL 1.5-2.2 [facility] Mean corpuscular hemoglobin (MCH) determinationOrdered By: Ada Soliman on 11-23-2024 MCH (RBC) [Entitic mass] 28.2 pg 27.0-32.0 [facility] Mean corpuscular hemoglobin concentration (MCHC) determinationOrdered By: Ada Soliman on 11-23-2024 MCHC (RBC) [Mass/Vol] 31.9 g/dL Low 32-[address] [facility] Mean platelet volume determi nationOrdered By: Ada Soliman on 11-23-2024 Platelet mean volume (Bld) [Entitic vol] 9.9 fL 6.2-12.0 [facility] Monocyte percentageOrdered B y: Ada Rowlandstacie on 11-23-2024 Monocytes/100 WBC (Bld) 6.7 % 0-10 [facility] Neutrophil percentageOrdered By: Ada Janny on 11-23-2024 Neutrophils/100 WBC (Bld) 66.6 % 47-70 [facility] Nucleated red blood cell per centageOrdered By: Ada Janny on 11-23-2024 Nucleated RBC/100 WBC (Bld) [Ratio] 0 % 0-5 [facility] Phosphoruson 11-23-2024 Phosphate [Mass/Vol] 3.2 mg/dL Normal 2.7-4.5 [facility] Comment on above: Performed By: #### L 501.5200, L100.0100, L501.2300, L500.4050 ####[facility] [address] [place], [place], [id number] Platelet countOrdered By: Mary Lou jayna Janny on 11-23-2024 Platelets (Bld) [#/Vol] 264 10*3/uL 150-450 [facility] Potassium measurement (mass/ volume)Ordered By: Ada Janny on 11-23-2024 Potassium (Unsp spec) [Mass/Vol] 4.2 mmol/L 3.3-5.1 [facility] RBC Auto (Bld) [#/Vol]Ordere d By: Ada Janny on 11-23-2024 RBC (Bld) [#/Vol] 5.11 10*6/uL 4.2-5.4 [facility] Serum creatinine measurement (mass/volume)Ordered By: Ada Soliman on 11-23-2024 Creatinine [Mass/Vol] 0.82 mg/dL 0.70-1.[address] [facility] Serum globulin measurementOr dered By: Ada Soliman on 11-23-2024 Globulin (S) [Mass/Vol] 3.5 g/dL 2.2-4.2 [facility] Serum glucose measurement (m ass/volume)Ordered By: Ada Soliman on 11-23-2024 Glucose [Mass/Vol] 132 mg/dL High 70-99 [facility] Serum or plasma alanine herrera otransferase (ALT) measurementOrdered By: Ada Janny on 11-23-2024 ALT [Catalytic activity/Vol] 15 U/L <35 [facility] Serum or plasma albumin bessie urement (mass/volume)Ordered By: Ada Soliman on 11-23-2024 Albumin [Mass/Vol] 3.9 g/dL 3.4-4.8 [facility] Serum or plasma albumin/glob ulin mass ratioOrdered By: Ada Soliman on 11-23-2024 Albumin/Globulin [Mass ratio] 1.1 {ratio} 0.9-2.4 [facility] Serum or plasma alkaline gloria sphatase measurementOrdered By: Ada Janny on 11-23-2024 ALP [Catalytic activity/Vol] 91 U/L 35-104 [facility] Serum or plasma calcium bessie urement (mass/volume)Ordered By: Ada Soliman on 11-23-2024 Calcium [Mass/Vol] 9.7 mg/dL 7.6-11.0 [facility] Serum or plasma urea nitroge n measurement (mass/volume)Ordered By: Ada Soliman on 11-23-2024 Urea nitrogen [Mass/Vol] 20 mg/dL High 4-19 [facility] Sodium levelOrdered By: Ada Janny on 11-23-2024 Sodium [Moles/Vol] 137 mmol/L 133-145 [facility] Total proteinOrdered By: Nadege moshe Soliman on 11-23-2024 Protein [Mass/Vol] 7.4 g/dL 5.9-8.4 [facility] White blood cell (WBC) count Ordered By: Ada Janny on 11-23-2024 WBC (Bld) [#/Vol] 8.8 10*3/uL 4.4-11.0 [facility] Bedside Glucoseon 11-22-2024 FINGERSTICK GLU 172 mg/dL High 74-106 [facility] Comment on above: Result Comment: FRANCINE SKINNER OF PATIENT CARE PER NURSING PROTOCOL Performed By: #### L 501.080 ####[facility] [address] [place], [place], [address] FINGERSTICK GLU 127 mg/dL High 74-106 [facility] Comment on above: Result Comment: FRANCINE GEMENT OF PATIENT CARE PER NURSING PROTOCOL Performed By: #### L 501.080 ####[facility] [address] [place], [address] Bedside Glucoseon 11-21-2024 FINGERSTICK GLU 114 mg/dL High [address] [place] [address] Comment on above: Result Comment: FRANCINE GEMENT OF PATIENT CARE PER NURSING PROTOCOL Performed By: #### L 501.080 ####[facility] [address] [place], [address] FINGERSTICK GLU 115 mg/dL High [address] [place] [address] Comment on above: Result Comment: FRANCINE GEMENT OF PATIENT CARE PER NURSING PROTOCOL Performed By: #### L 501.080 ####[facility] [address] [place], [address] Bedside Glucoseon 11-20-2024 FINGERSTICK GLU 118 mg/dL High [address] [place] [address] Comment on above: Result Comment: FRANCINE GEMENT OF PATIENT CARE PER NURSING PROTOCOL Performed By: #### L 501.080 ####[facility] [address] [place], [address] FINGERSTICK GLU 139 mg/dL High [address] [place] [address] Comment on above: Result Comment: FRANCINE GEMENT OF PATIENT CARE PER NURSING PROTOCOL Performed By: #### L 501.080 ####[facility] [address] [place], [address] Carcinoembryonic Antigenon 0 11-20-2024 CEA 4.6 ng/mL Normal 0.0-4.7 [facility] Comment on above: Result Comment: Nons mokers <3.9 Smokers <5.6[employer] Electrochemiluminescence Immunoassay(ECLIA)Values obtained with different assay methods or kitscannot be used interchangeably. Results cannot beinterpreted as absolute evidence of the presence orabsence of malignant disease.Performed at: [address] [id number] Director: Taiwo Quintero PhD, Phone: [phone] Performed By: #### L 3100.2300, L100.0600, L501.2300, L500.2500, L501.9520 ####[facility] [address] [place], [address] Basic Metabolic Profile (BMP )on 11-19-2024 BUN/CRE 22.8 RATIO High 10-20 [facility] Comment on above: Performed By: #### L 3100.2300, L100.0600, L501.2300, L500.2500, L501.9520 ####[facility] [address] [place], [address] Calcium [Mass/Vol] 9.5 mg/dL Normal 7.6-11.0 [facility] Comment on above: Performed By: #### L 3100.2300, L100.0600, L501.2300, L500.2500, L501.9520 ####[facility] [address] [place], [address] Chloride [Moles/Vol] 100 mmol/L Normal 98-108 [facility] Comment on above: Performed By: #### L 3100.2300, L100.0600, L501.2300, L500.2500, L501.9520 ####[facility] [address] [place], [address] CO2 [Moles/Vol] 21.3 mmol/L Normal 21.0-32.0 [facility] Comment on above: Performed By: #### L 3100.2300, L100.0600, L501.2300, L500.2500, L501.9520 ####[facility] [address] [place], [address] Creatinine [Mass/Vol] 0.89 mg/dL Normal 0.70-1.[address] [facility] Comment on above: Performed By: #### L 3100.2300, L100.0600, L501.2300, L500.2500, L501.9520 ####[facility] [address] [place], [address] ECRCL 68.73 ml/min Normal 50-250 [facility] Comment on above: Performed By: #### L 3100.2300, L100.0600, L501.2300, L500.2500, L501.9520 ####[facility] [address] [place], [address] GAP 12 Normal 5-15 [facility] Comment on above: Performed By: #### L 3100.2300, L100.0600, L501.2300, L500.2500, L501.9520 ####[facility] [address] [place], [address] GFR/1.73 sq M.predicted among non-blacks MDRD (S/P/Bld) [Vol rate/Area] 69 mL/min/{1.73_m2} Normal >60 [facility] Comment on above: Result Comment: mL/m in/1.73m2 CKD-EPI Creatinine Equation (2020) Performed By: #### L 3100.2300, L100.0600, L501.2300, L500.2500, L501.9520 ####[facility] [address] [place], [address] Glucose [Mass/Vol] 128 mg/dL High 70-99 [facility] Comment on above: Performed By: #### L 3100.2300, L100.0600, L501.2300, L500.2500, L501.9520 ####[facility] [address] [place], [address] Potassium [Moles/Vol] 4.6 mmol/L Normal 3.3-5.[address] [facility] Comment on above: Result Comment: Hemo lysis present, Results??could be affected.?? Performed By: #### L 3100.2300, L100.0600, L501.2300, L500.2500, L501.9520 ####[facility] [address] [place], [address] Sodium [Moles/Vol] 133 mmol/L Normal 133-145 [facility] Comment on above: Performed By: #### L 3100.2300, L100.0600, L501.2300, L500.2500, L501.9520 ####[facility] [address] [place], [address] Urea nitrogen [Mass/Vol] 20 mg/dL High 4-19 [facility] Comment on above: Performed By: #### L 3100.2300, L100.0600, L501.2300, L500.2500, L501.9520 ####[facility] [address] [place], [address] Bedside Glucoseon 11-19-2024 FINGERSTICK GLU 139 mg/dL High 74-106 [facility] Comment on above: Result Comment: FRANCINE SKINNER OF PATIENT CARE PER NURSING PROTOCOL Performed By: #### L 501.080 ####[facility] [address] [place], [address] HH, Hemoglobin AND Hematocri ton 11-19-2024 Hematocrit (Bld) [Volume fraction] 43.9 % Normal 37-47 [facility] Comment on above: Performed By: #### L 3100.2300, L100.0600, L501.2300, L500.2500, L501.9520 ####[facility] [address] [place], [address] Hemoglobin (Bld) [Mass/Vol] 14.2 g/dL Normal 12.0-15.0 [facility] Comment on above: Performed By: #### L 3100.2300, L100.0600, L501.2300, L500.2500, L501.9520 ####[facility] [address] [place], [address] Phosphoruson 11-19-2024 Phosphate [Mass/Vol] 3.7 mg/dL Normal 2.7-4.5 [facility] Comment on above: Performed By: #### L 3100.2300, L100.0600, L501.2300, L500.2500, L501.9520 ####[facility] [address] [place], [address] Serum or plasma carcinoembry onic antigen measurement (mass/volume)Ordered By: Ada Soliman on 11-19-2024 Carcinoembryonic Ag [Mass/Vol] 4.6 ng/mL 0.0-4.7 [facility] Comment on above: Nonsmokers <3.9 Smok ers <5.6[facility] Electrochemiluminescence Immunoassay(ECLIA)Values obtained with different assay methods or kitscannot be used interchangeably. Results cannot beinterpreted as absolute evidence of the presence orabsence of malignant disease.Performed at: [employer] [id number] Director: Taiwo Quintero PhD, Phone: [phone] T4 Free Directon 11-19-2024 T4 FREE DIRECT 1.10 ng/dL Normal 0.76-1.46 [facility] Comment on above: Performed By: #### L 506.0400 ####[facility] [address] [place], [place], [address] T4 freeOrdered By: Ada Valentin nti on 11-19-2024 Free T4 [Mass/Vol] 1.10 ng/dL 0.76-1.46 [facility] TSH DL <= 0.005 mIU/L QnOrde red By: Ada Soliman on 11-19-2024 TSH Qn 30.200 uIU/mL High 0.300-4.20 0 [facility] Thyroid Stim Hormone (TSH)on 04-18-2025 TSH 30.200 uIU/mL High 0.300-4.20 0 [facility] Comment on above: Performed By: #### L 3100.2300, L100.0600, L501.2300, L500.2500, L501.9520 ####[facility] [address] [place], [address] 12 Lead EKGon 11-18-2024 12 Lead EKG Normal [facility] Bedside Glucoseon 11-18-2024 FINGERSTICK GLU 139 mg/dL High 74-106 [facility] Comment on above: Result Comment: FRANCINE GEMENT OF PATIENT CARE PER NURSING PROTOCOL Performed By: #### L 501.080 ####[facility] [address] [place], [address] FINGERSTICK GLU 150 mg/dL High -106 [facility] Comment on above: Result Comment: FRANCINE GEMENT OF PATIENT CARE PER NURSING PROTOCOL Performed By: #### L 501.080 ####[facility] [address] [place], [address] Bedside Glucoseon 11-17-2024 FINGERSTICK GLU 117 mg/dL High 74-106 [facility] Comment on above: Result Comment: FRANCINE GEMENT OF PATIENT CARE PER NURSING PROTOCOL Performed By: #### L 501.080 ####[facility] [address] [place], [address] FINGERSTICK GLU 96 mg/dL Normal 74-106 [facility] Comment on above: Result Comment: FRANCINE GEMENT OF PATIENT CARE PER NURSING PROTOCOL Performed By: #### L 501.080 ####[facility] [address] [place], [address] FINGERSTICK GLU 131 mg/dL High 74-106 [facility] Comment on above: Result Comment: FRANCINE GEMENT OF PATIENT CARE PER NURSING PROTOCOL Performed By: #### L 501.080 ####[facility] [address] [place], [address] FINGERSTICK GLU 112 mg/dL High 74-106 [facility] Comment on above: Result Comment: FRANCINE GEMENT OF PATIENT CARE PER NURSING PROTOCOL Performed By: #### L 501.080 ####[facility] [address] [place], [address] Bedside Glucoseon 11-16-2024 FINGERSTICK GLU 108 mg/dL High 74-106 [facility] Comment on above: Result Comment: FRANCINE GEMENT OF PATIENT CARE PER NURSING PROTOCOL Performed By: #### L 501.080 ####[facility] [address] [place], [address] FINGERSTICK GLU 111 mg/dL High -[address] [place] [address] Comment on above: Result Comment: FRANCINE GEMENT OF PATIENT CARE PER NURSING PROTOCOL Performed By: #### L 501.080 ####[facility] [address] [place], [address] FINGERSTICK GLU 115 mg/dL High 74-106 [facility] Comment on above: Result Comment: FRANCINE GEMENT OF PATIENT CARE PER NURSING PROTOCOL Performed By: #### L 501.080 ####[facility] [address] [place], [address] FINGERSTICK GLU 120 mg/dL High -106 [facility] Comment on above: Result Comment: FRANCINE GEMENT OF PATIENT CARE PER NURSING PROTOCOL Performed By: #### L 501.080 ####[facility] [address] [place], [address] Bedside Glucoseon 5 FINGERSTICK GLU 113 mg/dL High -106 [facility] Comment on above: Result Comment: FRANCINE GEMENT OF PATIENT CARE PER NURSING PROTOCOL Performed By: #### L 501.080 ####[facility] [address] [place], [address] FINGERSTICK GLU 102 mg/dL Normal 74-106 [facility] Comment on above: Result Comment: FRANCINE GEMENT OF PATIENT CARE PER NURSING PROTOCOL Performed By: #### L 501.080 ####[facility] [address] [place], [address] FINGERSTICK GLU 128 mg/dL High 74-106 [facility] Comment on above: Result Comment: FRANCINE GEMENT OF PATIENT CARE PER NURSING PROTOCOL Performed By: #### L 501.080 ####[facility] [address] [place], [address] FINGERSTICK GLU 119 mg/dL High 74-106 [facility] Comment on above: Result Comment: FRANCINE GEMENT OF PATIENT CARE PER NURSING PROTOCOL Performed By: #### L 501.080 ####[facility] [address] [place], [address] Phosphoruson 11-15-2024 Phosphate [Mass/Vol] 2.9 mg/dL Normal 2.7-4.5 [facility] Comment on above: Performed By: #### L 501.2300 ####[facility] [address] [place], [address] Bedside Glucoseon 11-14-2024 FINGERSTICK GLU 156 mg/dL High -106 [facility] Comment on above: Result Comment: FRANCINE GEMENT OF PATIENT CARE PER NURSING PROTOCOL Performed By: #### L 501.080 ####[facility] [address] [place], [address] FINGERSTICK GLU 145 mg/dL High 74-106 [facility] Comment on above: Result Comment: FRANCINE GEMENT OF PATIENT CARE PER NURSING PROTOCOL Performed By: #### L 501.080 ####[facility] [address] [place], [address] FINGERSTICK GLU 129 mg/dL High 74-106 [facility] Comment on above: Result Comment: FRANCINE GEMENT OF PATIENT CARE PER NURSING PROTOCOL Performed By: #### L 501.080 ####[facility] [address] [place], [address] FINGERSTICK GLU 134 mg/dL High 74-106 [facility] Comment on above: Result Comment: FRANCINE GEMENT OF PATIENT CARE PER NURSING PROTOCOL Performed By: #### L 501.080 ####[facility] [address] [place], [address] Bedside Glucoseon 11-13-2024 FINGERSTICK GLU 123 mg/dL High 74-106 [facility] Comment on above: Result Comment: FRANCINE GEMENT OF PATIENT CARE PER NURSING PROTOCOL Performed By: #### L 501.080 ####[facility] [address] [place], [address] FINGERSTICK GLU 161 mg/dL High 74-106 [facility] Comment on above: Result Comment: FRANCINE GEMENT OF PATIENT CARE PER NURSING PROTOCOL Performed By: #### L 501.080 ####[facility] [address] [place], [address] FINGERSTICK GLU 162 mg/dL High -106 [facility] Comment on above: Result Comment: FRANCINE GEMENT OF PATIENT CARE PER NURSING PROTOCOL Performed By: #### L 501.080 ####[facility] [address] [place], [address] FINGERSTICK GLU 128 mg/dL High -106 [facility] Comment on above: Result Comment: FRANCINE GEMENT OF PATIENT CARE PER NURSING PROTOCOL Performed By: #### L 501.080 ####[facility] [address] [place], [address] Bedside Glucoseon 11-12-2024 FINGERSTICK GLU 114 mg/dL High -106 [facility] Comment on above: Result Comment: FRANCINE GEMENT OF PATIENT CARE PER NURSING PROTOCOL Performed By: #### L 501.080 ####[facility] [address] [place], [address] FINGERSTICK GLU 119 mg/dL High 74-106 [facility] Comment on above: Result Comment: FRANCINE GEMENT OF PATIENT CARE PER NURSING PROTOCOL Performed By: #### L 501.080 ####[facility] [address] [place], [address] FINGERSTICK GLU 130 mg/dL High 74-106 [facility] Comment on above: Result Comment: FRANCINE GEMENT OF PATIENT CARE PER NURSING PROTOCOL Performed By: #### L 501.080 ####[facility] [address] [place], [address] FINGERSTICK GLU 134 mg/dL High 74-106 [facility] Comment on above: Result Comment: FRANCINE GEMENT OF PATIENT CARE PER NURSING PROTOCOL Performed By: #### L 501.080 ####[facility] [address] [place], [address] CBC-Complete Blood Cnt No [facility] 11-12-2024 Erythrocyte distribution width (RBC) [Ratio] 15.1 % High 11.6-14.6 [facility] Comment on above: Performed By: #### L 100.0500, L500.4050, L501.5200 ####[facility] [address] [place], [address] Hematocrit (Bld) [Volume fraction] 46.1 % Normal 37-47 [facility] Comment on above: Performed By: #### L 100.0500, L500.4050, L501.5200 ####[facility] [address] [place], [address] Hemoglobin (Bld) [Mass/Vol] 14.5 g/dL Normal 12.0-15.0 [facility] Comment on above: Performed By: #### L 100.0500, L500.4050, L501.5200 ####[facility] [address] [place], [address] MCH (RBC) [Entitic mass] 28.2 pg Normal 27.0-32.0 [facility] Comment on above: Performed By: #### L 100.0500, L500.4050, L501.5200 ####[facility] [address] [place], [address] MCHC (RBC) [Mass/Vol] 31.5 g/dL Low 32-[address] [facility] Comment on above: Performed By: #### L 100.0500, L500.4050, L501.5200 ####[facility] [address] [place], [address] MCV (RBC) [Entitic vol] 89.5 fL Normal 81-99 [facility] Comment on above: Performed By: #### L 100.0500, L500.4050, L501.5200 ####[facility] [address] [place], [address] Platelet mean volume (Bld) [Entitic vol] 10.4 fL Normal 6.2-12.0 [facility] Comment on above: Performed By: #### L 100.0500, L500.4050, L501.5200 ####[facility] [address] [place], [address] Platelets (Bld) [#/Vol] 213 10*3/uL Normal 150-450 [facility] Comment on above: Performed By: #### L 100.0500, L500.4050, L501.5200 ####[facility] [address] [place], [address] RBC (Bld) [#/Vol] 5.15 10*6/uL Normal 4.2-5.4 [facility] Comment on above: Performed By: #### L 100.0500, L500.4050, L501.5200 ####[facility] [address] [place], [address] RDW SD 49.5 fl High 35.1-43.9 [facility] Comment on above: Performed By: #### L 100.0500, L500.4050, L501.5200 ####[facility] [address] [place], [address] WBC (Bld) [#/Vol] 9.9 10*3/uL Normal 4.4-11.0 [facility] Comment on above: Performed By: #### L 100.0500, L500.4050, L501.5200 ####[facility] [address] [place], [address] Comprehensive Metabolic Prof neon 11-12-2024 Albumin [Mass/Vol] 3.7 g/dL Normal 3.4-4.8 [facility] Comment on above: Performed By: #### L 100.0500, L500.4050, L501.5200 ####[facility] [address] [place], [address] Albumin/Globulin [Mass ratio] 1.0 {ratio} Normal 0.9-2.4 [facility] Comment on above: Performed By: #### L 100.0500, L500.4050, L501.5200 ####[facility] [address] [place], [address] ALK PHOS 114 U/L High 35-104 [facility] Comment on above: Performed By: #### L 100.0500, L500.4050, L501.5200 ####[facility] [address] [place], [address] ALT [Catalytic activity/Vol] 10 U/L Normal <=34 [facility] Comment on above: Performed By: #### L 100.0500, L500.4050, L501.5200 ####[facility] [address] [place], [address] AST [Catalytic activity/Vol] 20 U/L Normal <=31 [facility] Comment on above: Result Comment: Hemo lysis present, Results??could be affected.?? Performed By: #### L 100.0500, L500.4050, L501.5200 ####[facility] [address] [place], [address] Bilirubin [Mass/Vol] 1.04 mg/dL Normal 0.00-1.30 [facility] Comment on above: Performed By: #### L 100.0500, L500.4050, L501.5200 ####[facility] [address] [place], [address] BUN/CRE 14.8 RATIO Normal 10-20 [facility] Comment on above: Performed By: #### L 100.0500, L500.4050, L501.5200 ####[facility] [address] [place], [address] Calcium [Mass/Vol] 10.0 mg/dL Normal 7.6-11.0 [facility] Comment on above: Performed By: #### L 100.0500, L500.4050, L501.5200 ####[facility] [address] [place], [address] Chloride [Moles/Vol] 100 mmol/L Normal 98-108 [facility] Comment on above: Performed By: #### L 100.0500, L500.4050, L501.5200 ####[facility] [address] [place], [address] CO2 [Moles/Vol] 26.6 mmol/L Normal 21.0-32.0 [facility] Comment on above: Performed By: #### L 100.0500, L500.4050, L501.5200 ####[facility] [address] [place], [address] Creatinine [Mass/Vol] 0.94 mg/dL Normal 0.70-1.[address] [facility] Comment on above: Performed By: #### L 100.0500, L500.4050, L501.5200 ####[facility] [address] [place], [address] ECRCL 66.12 ml/min Normal 50-250 [facility] Comment on above: Performed By: #### L 100.0500, L500.4050, L501.5200 ####[facility] [address] [place], [address] GAP 11 Normal 5-15 [facility] Comment on above: Performed By: #### L 100.0500, L500.4050, L501.5200 ####[facility] [address] [place], [address] GFR/1.73 sq M.predicted among non-blacks MDRD (S/P/Bld) [Vol rate/Area] 64 mL/min/{1.73_m2} Normal >60 [facility] Comment on above: Result Comment: mL/m in/1.73m2 CKD-EPI Creatinine Equation (2020) Performed By: #### L 100.0500, L500.4050, L501.5200 ####[facility] [address] [place], [address] Globulin (S) [Mass/Vol] 3.7 g/dL Normal 2.2-4.2 [facility] Comment on above: Performed By: #### L 100.0500, L500.4050, L501.5200 ####[facility] [address] [place], [address] Glucose [Mass/Vol] 138 mg/dL High 70-99 [facility] Comment on above: Performed By: #### L 100.0500, L500.4050, L501.5200 ####[facility] [address] [place], [address] Potassium [Moles/Vol] 4.7 mmol/L Normal 3.3-5.[address] [facility] Comment on above: Result Comment: Hemo lysis present, Results??could be affected.?? Performed By: #### L 100.0500, L500.4050, L501.5200 ####[facility] [address] [place], [address] Sodium [Moles/Vol] 137 mmol/L Normal 133-145 [facility] Comment on above: Performed By: #### L 100.0500, L500.4050, L501.5200 ####[facility] [address] [place], [address] T PROT 7.4 g/dL Normal 5.9-8.4 [facility] Comment on above: Performed By: #### L 100.0500, L500.4050, L501.5200 ####[facility] [address] [place], [address] Urea nitrogen [Mass/Vol] 14 mg/dL Normal 4-19 [facility] Comment on above: Performed By: #### L 100.0500, L500.4050, L501.5200 ####[facility] [address] [place], [address] Magnesiumon 11-12-2024 Magnesium [Mass/Vol] 1.8 mg/dL Normal 1.5-2.2 [facility] Comment on above: Performed By: #### L 100.0500, L500.4050, L501.5200 ####[facility] [address] [place], [address] Phosphoruson 11-12-2024 Phosphate [Mass/Vol] 2.4 mg/dL Low 2.7-4.5 [facility] Comment on above: Performed By: #### L 501.2300 ####[facility] [address] [place], [address] Bedside Glucoseon 11-11-2024 FINGERSTICK GLU 142 mg/dL High 74-106 [facility] Comment on above: Result Comment: FRANCINE GEMENT OF PATIENT CARE PER NURSING PROTOCOL Performed By: #### L 501.080 ####[facility] [address] [place], [address] FINGERSTICK GLU 128 mg/dL High 74-106 [facility] Comment on above: Result Comment: FRANCINE GEMENT OF PATIENT CARE PER NURSING PROTOCOL Performed By: #### L 501.080 ####[facility] [address] [place], [address] CARDIAC RHYTHMon 11-11-2024 [facility] CBC,PLATELETSon 11-11-2024 Erythrocyte distribution width (RBC) [Ratio] 15 % High 10.8 - 14.9 % [facility] Hematocrit (Bld) [Volume fraction] 45.9 % High 34.9 - 44.3 % [facility] Hemoglobin (Bld) [Mass/Vol] 13.9 g/dL 11.4 - 15.2 g/dL [facility] Interpretation and review of laboratory results Abnormal [facility] MCH (RBC) [Entitic mass] 27 pg 25. 9 - 33.9 pg [facility] MCHC (RBC) [Mass/Vol] 30.3 g/dL Low 31.4 - 35.9 g/dL [facility] MCV (RBC) [Entitic vol] 89.3 fL 79.6 - 97.7 fL [facility] Platelet mean volume (Bld) [Entitic vol] 10.2 fL 8.5 - 12.2 fL [facility] Platelets (Bld) [#/Vol] 190 10*3/uL 150 - 393 K/uL [facility] RBC (Bld) [#/Vol] 5.14 10*6/uL High [facility] WBC (Bld) [#/Vol] 8.88 10*3/uL 3.99 - 11.19 K/uL [facility] Hematocrit (Bld) [Volume fraction] 45.9 % High 34.9-44.3 [facility] Comment on above: Performed By: #### H EMOGC #### [facility] (DEFAULT) [address] [place] [address] Hemoglobin (Bld) [Mass/Vol] 13.9 g/dL Normal 11.4-15.2 [facility] Comment on above: Performed By: #### H EMOGC #### [facility] (DEFAULT) [address] [address] MCV (RBC) [Entitic vol] 89.3 fL Normal 79.6-97.7 [facility] Comment on above: Performed By: #### H EMOGC #### [facility] (DEFAULT) [address] [place] [address] 31208 Mean Cell Hgb 27.0 pg Normal 25.9-33.9 [facility] Comment on above: Performed By: #### H EMOGC #### [facility] (DEFAULT) [address] [place] [address] 36062 Mean Cell Hgb Conc 30.3 g/dL Low 31.4-35.9 [facility] Comment on above: Performed By: #### H EMOGC #### [facility] (DEFAULT) [address] [place] [address] 16118 Platelet mean volume (Bld) [Entitic vol] 10.2 fL Normal 8.5-12.2 [facility] Comment on above: Performed By: #### H EMOGC #### [facility] (DEFAULT) [address] [place] [address] 00661 Platelets (Bld) [#/Vol] 190 10*3/uL Normal 150-393 [facility] Comment on above: Performed By: #### H EMOGC #### [facility] (DEFAULT) [address] [place] [address] 51666 RBC (Bld) [#/Vol] 5.14 10*6/uL High 3.91-5.04 [facility] Comment on above: Performed By: #### [facility] #### [facility] (DEFAULT) [address] [place] [address] RBC Distribution 15.0 % High 10.8-14.9 [facility] Comment on above: Performed By: #### H [facility] #### [facility] (DEFAULT) [address] [place] [address]18 WBC (Bld) [#/Vol] 8.88 10*3/uL Normal 3.99-11.19 [facility] Comment on above: Performed By: #### H [facility] #### [facility] (DEFAULT) [address] [place] [address] 10091 CHEM 7 (LYTES,BUN,CREA,GLUC) on 11-11-2024 Anion gap [Moles/Vol] 13 mmol/L 7 - 17 mmol/L [facility] Chloride [Moles/Vol] 101 mmol/L 98 - 10 8 mmol/L [facility] CO2 [Moles/Vol] 26 mmol/L 21 - 31 mmol/L [facility] Creatinine [Mass/Vol] 0.85 mg/dL 0.50 - 1.20 mg/dL [facility] eGFR, CKD-EPI, Female 73 - PINF [facility] Comment on above: Reported eGFR is bas ed on the CKD-EPI 2020 equation using creatinine, age, and sex. Glucose [Mass/Vol] 119 mg/dL 70 - 179 mg/dL [facility] Osmolality Calc [Osmolality] 287 [facility] Potassium [Moles/Vol] 4.1 mmol/L 3.5 - 5.0 mmol/L [facility] Sodium [Moles/Vol] 136 mmol/L 135 - 145 mmol/L [facility] Urea nitrogen [Mass/Vol] 14 mg/dL 7 - 25 mg/dL [facility] Urea nitrogen/Creatinine [Mass ratio] 16 mg/mg [facility] Anion gap [Moles/Vol] 13 mmol/L Normal 7-17 [facility] Comment on above: Performed By: #### Kennedy RETANA CHM7 #### [facility] (DEFAULT) [address] [place] [address]155 Chloride [Moles/Vol] 101 mmol/L Normal 98-108 [facility] Comment on above: Performed By: #### Kennedy RETANA CHM7 #### [facility] (DEFAULT) [address] [place] [address] 47889 CO2 [Moles/Vol] 26 mmol/L Normal 21-31 [facility] Comment on above: Performed By: #### Kennedy RETANA CHM7 #### [facility] (DEFAULT) [address] [place] [address] 7[address]58 Creatinine [Mass/Vol] 0.85 mg/dL Normal 0.50-1.20 [facility] Comment on above: Performed By: #### Kennedy RETANA CHM7 #### [facility] (DEFAULT) [address] [place] [address] 02415 GFR/1.73 sq M.predicted among non-blacks MDRD (S/P/Bld) [Vol rate/Area] 73 mL/min/{1.73_m2} Normal >=60 [facility] Comment on above: Result Comment: Repo rted eGFR is based on the CKD-EPI 2020 equation using creatinine, age, and sex. Performed By: #### Kennedy RETANA CHM7 #### [facility] (DEFAULT) [address] [place] [address]652 Glucose [Mass/Vol] 119 mg/dL Normal Nonfastin g : 70-179 mg/dL; Fastin-99 [facility] Comment on above: Performed By: #### Kennedy RETANA CHM7 #### [facility] (DEFAULT) [address] [place] [address] 57909 Osmolality [Osmolality] 287 mosm/kg Normal 278-305 [facility] Comment on above: Performed By: #### Kennedy RETANA CHM7 #### [facility] (DEFAULT) [address] [place] [address] 87643 Potassium [Moles/Vol] 4.1 mmol/L Normal 3.5-5.0 [facility] Comment on above: Performed By: #### TIFFANY MO7 #### [facility] (DEFAULT) [address] [place] [address] 75240 Sodium [Moles/Vol] 136 mmol/L Normal 135-145 [facility] Comment on above: Performed By: #### TIFFANY MO7 #### [facility] (DEFAULT) [address] [place] [address] 48505 Urea nitrogen [Mass/Vol] 14 mg/dL Normal 7-25 [facility] Comment on above: Performed By: #### TIFFANY MO7 #### [facility] (DEFAULT) [address] [place] [address] 48217 Urea nitrogen/Creatinine [Mass ratio] 16 mg/mg Normal [facility] Comment on above: Performed By: #### TIFFANY MO7 #### [facility] (DEFAULT) [address] [place] [address] 94676 GLUCOSE POCon 11-11-2024 Glucose [Mass/Vol] 138 mg/dL 70 - 179 mg/dL [facility] POC Sample Type CAPBL [facility] Test performed at ad dress of the patient encounter. [facility] Glucose [Mass/Vol] 110 mg/dL 70 - 179 mg/dL [facility] POC Sample Type CAPBL [facility] Test performed at ad dress of the patient encounter. [facility] MAGNESIUMon 11-11-2024 Interpretation and review of laboratory results Normal [facility] Magnesium [Mass/Vol] 1.7 mg/dL 1.6 - 2 .6 mg/dL [facility] Magnesium [Mass/Vol] 1.7 mg/dL Normal 1.6-2.6 [facility] Comment on above: Performed By: #### M [facility] #### [facility] (DEFAULT) [address] [place] [address] No Panel Informationon 11-11 [facility] CBC,PLATELETSon 11-10-2024 Erythrocyte distribution width (RBC) [Ratio] 15.5 % High 10.8 - 14.9 % [facility] Hematocrit (Bld) [Volume fraction] 48.3 % High 34.9 - 44.3 % [facility] Hemoglobin (Bld) [Mass/Vol] 14.3 g/dL 11.4 - 15.2 g/dL [facility] Interpretation and review of laboratory results Abnormal [facility] MCH (RBC) [Entitic mass] 27.3 pg 25. 9 - 33.9 pg [facility] MCHC (RBC) [Mass/Vol] 29.6 g/dL Low 31.4 - 35.9 g/dL [facility] MCV (RBC) [Entitic vol] 92.4 fL 79.6 - 97.7 fL [facility] Platelet mean volume (Bld) [Entitic vol] 10.2 fL 8.5 - 12.2 fL [facility] Platelets (Bld) [#/Vol] 183 10*3/uL 150 - 393 K/uL [facility] RBC (Bld) [#/Vol] 5.23 10*6/uL High [facility] WBC (Bld) [#/Vol] 8.93 10*3/uL 3.99 - 11.19 K/uL [facility] Hematocrit (Bld) [Volume fraction] 48.3 % High 34.9-44.3 [facility] Comment on above: Performed By: #### H [facility] #### [facility] (DEFAULT) [address] [place] [address]361 Hemoglobin (Bld) [Mass/Vol] 14.3 g/dL Normal 11.4-15.2 [facility] Comment on above: Performed By: #### H EMOGC #### [facility] (DEFAULT) [address] [address] MCV (RBC) [Entitic vol] 92.4 fL Normal 79.6-97.7 [facility] Comment on above: Performed By: #### H EMOGC #### [facility] (DEFAULT) [address] [address] Mean Cell Hgb 27.3 pg Normal 25.9-33.9 [facility] Comment on above: Performed By: #### H EMOGC #### [facility] (DEFAULT) [address] [address] Mean Cell Hgb Conc 29.6 g/dL Low 31.4-35.9 [facility] Comment on above: Performed By: #### H EMOGC #### [facility] (DEFAULT) [address] [address] Platelet mean volume (Bld) [Entitic vol] 10.2 fL Normal 8.5-12.2 [facility] Comment on above: Performed By: #### H EMOGC #### [facility] (DEFAULT) [address] [address] Platelets (Bld) [#/Vol] 183 10*3/uL Normal 150-393 [facility] Comment on above: Performed By: #### H EMOGC #### [facility] (DEFAULT) [address] [address] RBC (Bld) [#/Vol] 5.23 10*6/uL High 3.91-5.04 [facility] Comment on above: Performed By: #### H EMOGC #### [facility] (DEFAULT) [address] [address] RBC Distribution 15.5 % High 10.8-14.9 [facility] Comment on above: Performed By: #### [facility] #### [facility] (DEFAULT) [address] [place] [address] WBC (Bld) [#/Vol] 8.93 10*3/uL Normal 3.99-11.19 [facility] Comment on above: Performed By: #### H [facility] #### [facility] (DEFAULT) [address] [place] [address] CHEM 7 (LYTES,BUN,CREA,GLUC) on 11-10-2024 Anion gap [Moles/Vol] 11 mmol/L 7 - 17 mmol/L [facility] Chloride [Moles/Vol] 102 mmol/L 98 - 10 8 mmol/L [facility] CO2 [Moles/Vol] 30 mmol/L 21 - 31 mmol/L [facility] Creatinine [Mass/Vol] 1.06 mg/dL 0.50 - 1.20 mg/dL [facility] eGFR, CKD-EPI, Female 58 Low - PINF [facility] Comment on above: Reported eGFR is bas ed on the CKD-EPI 2020 equation using creatinine, age, and sex. Glucose [Mass/Vol] 135 mg/dL 70 - 179 mg/dL [facility] Interpretation and review of laboratory results Abnormal [facility] Osmolality Calc [Osmolality] 294 [facility] Potassium [Moles/Vol] 4.3 mmol/L 3.5 - 5.0 mmol/L [facility] Sodium [Moles/Vol] 139 mmol/L 135 - 145 mmol/L [facility] Urea nitrogen [Mass/Vol] 14 mg/dL 7 - 25 mg/dL [facility] Urea nitrogen/Creatinine [Mass ratio] 13 mg/mg [facility] Anion gap [Moles/Vol] 11 mmol/L Normal 7-17 [facility] Comment on above: Performed By: #### M GO, CHM7 #### [facility] (DEFAULT) [address] [place] [address] Chloride [Moles/Vol] 102 mmol/L Normal 98-108 [facility] Comment on above: Performed By: #### SEEMA MO #### [facility] (DEFAULT) [address] [place] [address] CO2 [Moles/Vol] 30 mmol/L Normal 21-31 [facility] Comment on above: Performed By: #### SEEMA MO #### [facility] (DEFAULT) [address] [place] [address]883 Creatinine [Mass/Vol] 1.06 mg/dL Normal 0.50-1.20 [facility] Comment on above: Performed By: #### TIFFANY MO7 #### [facility] (DEFAULT) [address] [place] [address] 18663 GFR/1.73 sq M.predicted among non-blacks MDRD (S/P/Bld) [Vol rate/Area] 56 mL/min/{1.73_m2} Low >=60 [facility] Comment on above: Result Comment: Repo rted eGFR is based on the CKD-EPI 2020 equation using creatinine, age, and sex. Performed By: #### SEEMA OM #### [facility] (DEFAULT) [address] [place] [address] Glucose [Mass/Vol] 135 mg/dL Normal Nonfastin g : 70-179 mg/dL; Fastin-99 [facility] Comment on above: Performed By: #### TIFFANY MO7 #### [facility] (DEFAULT) [address] [place] [address] Osmolality [Osmolality] 294 mosm/kg Normal 278-305 [facility] Comment on above: Performed By: #### TIFFANY MO7 #### [facility] (DEFAULT) [address] [place] [address]65 Potassium [Moles/Vol] 4.3 mmol/L Normal 3.5-5.0 [facility] Comment on above: Performed By: #### SEEMA MO #### [facility] (DEFAULT) [address] [place] [address] Sodium [Moles/Vol] 139 mmol/L Normal 135-145 [facility] Comment on above: Performed By: #### TIFFANY MO7 #### [facility] (DEFAULT) [address] [place] [address] Urea nitrogen [Mass/Vol] 14 mg/dL Normal 7-25 [facility] Comment on above: Performed By: #### TIFFANY MO7 #### [facility] (DEFAULT) [address] [place] [address] Urea nitrogen/Creatinine [Mass ratio] 13 mg/mg Normal [facility] Comment on above: Performed By: #### TIFFANY MO7 #### [facility] (DEFAULT) [address] [place] [address] GLUCOSE POCon 11-10-2024 Glucose [Mass/Vol] 142 mg/dL 70 - 179 mg/dL [facility] POC Sample Type CAPBL [facility] Test performed at ad dress of the patient encounter. [facility] Glucose [Mass/Vol] 134 mg/dL 70 - 179 mg/dL [facility] POC Sample Type CAPBL [facility] Test performed at ad dress of the patient encounter. [facility] Glucose [Mass/Vol] 160 mg/dL 70 - 179 mg/dL [facility] POC Sample Type CAPBL [facility] Test performed at ad dress of the patient encounter. [facility] Glucose [Mass/Vol] 159 mg/dL 70 - 179 mg/dL [facility] POC Sample Type CAPBL [facility] Test performed at ad dress of the patient encounter. [facility] MAGNESIUMon 11-10-2024 Interpretation and review of laboratory results Normal [facility] Magnesium [Mass/Vol] 1.9 mg/dL 1.6 - 2 .6 mg/dL [facility] Magnesium [Mass/Vol] 1.9 mg/dL Normal 1.6-2.6 [facility] Comment on above: Performed By: #### M GO, CHM7 #### [facility] (DEFAULT) [address] [place] [address] No Panel Informationon 11-10 [facility] CBC,PLATELETSon 11-09-2024 Erythrocyte distribution width (RBC) [Ratio] 15.8 % High 10.8 - 14.9 % [facility] Hematocrit (Bld) [Volume fraction] 49.4 % High 34.9 - 44.3 % [facility] Hemoglobin (Bld) [Mass/Vol] 14.6 g/dL 11.4 - 15.2 g/dL [facility] Interpretation and review of laboratory results Abnormal [facility] MCH (RBC) [Entitic mass] 27 pg 25. 9 - 33.9 pg [facility] MCHC (RBC) [Mass/Vol] 29.6 g/dL Low 31.4 - 35.9 g/dL [facility] MCV (RBC) [Entitic vol] 91.5 fL 79.6 - 97.7 fL [facility] Platelet mean volume (Bld) [Entitic vol] 10.2 fL 8.5 - 12.2 fL [facility] Platelets (Bld) [#/Vol] 194 10*3/uL 150 - 393 K/uL [facility] RBC (Bld) [#/Vol] 5.4 10*6/uL High [facility] WBC (Bld) [#/Vol] 10.12 10*3/uL 3.99 - 11.19 K/uL [facility] Hematocrit (Bld) [Volume fraction] 49.4 % High 34.9-44.3 [facility] Comment on above: Performed By: #### L IPDR, HFP, CHM7 #### [facility] (DEFAULT) [address] [place] [address] Hemoglobin (Bld) [Mass/Vol] 14.6 g/dL Normal 11.4-15.2 [facility] Comment on above: Performed By: #### L IPDR, HFP, CHM7 #### [facility] (DEFAULT) [address] [place] [address]177 MCV (RBC) [Entitic vol] 91.5 fL Normal 79.6-97.7 [facility] Comment on above: Performed By: #### L IPDR, HFP, CHM7 #### [facility] (DEFAULT) [address] [place] [address] 17879 Mean Cell Hgb 27.0 pg Normal 25.9-33.9 [facility] Comment on above: Performed By: #### L IPDR, HFP, CHM7 #### [facility] (DEFAULT) [address] [address] Mean Cell Hgb Conc 29.6 g/dL Low 31.4-35.9 [facility] Comment on above: Performed By: #### L IPDR, HFP, CHM7 #### [facility] (DEFAULT) [address] [place] [address]91 Platelet mean volume (Bld) [Entitic vol] 10.2 fL Normal 8.5-12.2 [facility] Comment on above: Performed By: #### L IPDR, HFP, CHM7 #### [facility] (DEFAULT) [address] [place] [address]190 Platelets (Bld) [#/Vol] 194 10*3/uL Normal 150-393 [facility] Comment on above: Performed By: #### L IPDR, HFP, CHM7 #### [facility] (DEFAULT) [address] [address] RBC (Bld) [#/Vol] 5.40 10*6/uL High 3.91-5.04 [facility] Comment on above: Performed By: #### L IPDR, HFP, CHM7 #### [facility] (DEFAULT) [address] [place] [address] RBC Distribution 15.8 % High 10.8-14.9 [facility] Comment on above: Performed By: #### L IPDR, HFP, CHM7 #### [facility] (DEFAULT) [address] [place] [address] WBC (Bld) [#/Vol] 10.12 10*3/uL Normal 3.99-11.19 [facility] Comment on above: Performed By: #### L IPDR, HFP, CHM7 #### [facility] (DEFAULT) [address] [place] [address] CHEM 7 (LYTES,BUN,CREA,GLUC) on 11-09-2024 Anion gap [Moles/Vol] 10 mmol/L 7 - 17 mmol/L [facility] Chloride [Moles/Vol] 103 mmol/L 98 - 10 8 mmol/L [facility] CO2 [Moles/Vol] 31 mmol/L 21 - 31 mmol/L [facility] Creatinine [Mass/Vol] 0.82 mg/dL 0.50 - 1.20 mg/dL [facility] eGFR, CKD-EPI, Female 76 - PINF [facility] Comment on above: Reported eGFR is bas ed on the CKD-EPI 2020 equation using creatinine, age, and sex. Glucose [Mass/Vol] 126 mg/dL 70 - 179 mg/dL [facility] Osmolality Calc [Osmolality] 294 [facility] Potassium [Moles/Vol] 4.2 mmol/L 3.5 - 5.0 mmol/L [facility] Sodium [Moles/Vol] 140 mmol/L 135 - 145 mmol/L [facility] Urea nitrogen [Mass/Vol] 11 mg/dL 7 - 25 mg/dL [facility] Urea nitrogen/Creatinine [Mass ratio] 13 mg/mg [facility] Anion gap [Moles/Vol] 10 mmol/L Normal 7-17 [facility] Comment on above: Performed By: #### L IPDR, HFP, CHM7 #### [facility] (DEFAULT) [address] [place] [address] Chloride [Moles/Vol] 103 mmol/L Normal 98-108 [facility] Comment on above: Performed By: #### L IPDR, HFP, CHM7 #### [facility] (DEFAULT) [address] [place] [address] CO2 [Moles/Vol] 31 mmol/L Normal 21-31 [facility] Comment on above: Performed By: #### L IPDR, HFP, CHM7 #### [facility] (DEFAULT) [address] [place] [address]164 Creatinine [Mass/Vol] 0.82 mg/dL Normal 0.50-1.20 [facility] Comment on above: Performed By: #### L IPDR, HFP, CHM7 #### [facility] (DEFAULT) [address] [place] [address] GFR/1.73 sq M.predicted among non-blacks MDRD (S/P/Bld) [Vol rate/Area] 76 mL/min/{1.73_m2} Normal >=60 [facility] Comment on above: Result Comment: Repo rted eGFR is based on the CKD-EPI 2020 equation using creatinine, age, and sex. Performed By: #### L IPDR, HFP, CHM7 #### [facility] (DEFAULT) [address] [place] [address] Glucose [Mass/Vol] 126 mg/dL Normal Nonfastin g : 70-179 mg/dL; Fastin-99 [facility] Comment on above: Performed By: #### L IPDR, HFP, CHM7 #### [facility] (DEFAULT) [address] [place] [address] Osmolality [Osmolality] 294 mosm/kg Normal 278-305 [facility] Comment on above: Performed By: #### L IPDR, HFP, CHM7 #### [facility] (DEFAULT) [address] [place] [address] Potassium [Moles/Vol] 4.2 mmol/L Normal 3.5-5.0 [facility] Comment on above: Performed By: #### L IPDR, HFP, CHM7 #### [facility] (DEFAULT) [address] [place] [address] Sodium [Moles/Vol] 140 mmol/L Normal 135-145 [facility] Comment on above: Performed By: #### L IPDR, HFP, CHM7 #### [facility] (DEFAULT) [address] [place] [address] Urea nitrogen [Mass/Vol] 11 mg/dL Normal 7-25 [facility] Comment on above: Performed By: #### L IPDR, HFP, CHM7 #### [facility] (DEFAULT) [address] [place] [address] Urea nitrogen/Creatinine [Mass ratio] 13 mg/mg Normal [facility] Comment on above: Performed By: #### L IPDR, HFP, CHM7 #### [facility] (DEFAULT) [address] [place] [address] CHEM 7 (LYTES,BUN,CREA,GLUC) Ordered By: Carol Cuenca on 11-09-2024 Anion gap [Moles/Vol] 24 mmol/L High 7 - 17 mmol/L [facility] Chloride [Moles/Vol] 100 mmol/L 98 - 10 8 mmol/L [facility] CO2 [Moles/Vol] 20 mmol/L Low 21 - 31 mmol/L [facility] Creatinine [Mass/Vol] 0.84 mg/dL 0.50 - 1.20 mg/dL [facility] eGFR, CKD-EPI, Female 74 - PINF [facility] Comment on above: Reported eGFR is bas ed on the CKD-EPI 2020 equation using creatinine, age, and sex. Glucose [Mass/Vol] 109 mg/dL 70 - 179 mg/dL [facility] Interpretation and review of laboratory results Abnormal [facility] Osmolality Calc [Osmolality] 293 [facility] Potassium [Moles/Vol] 5.6 mmol/L High 3.5 - 5.0 mmol/L [facility] Comment on above: Specimen slightly he molyzed. Potassium results may be falsey elevated by more than 0.5 mmol/L. Consider recollection. Sodium [Moles/Vol] 138 mmol/L 135 - 145 mmol/L [facility] Urea nitrogen [Mass/Vol] 13 mg/dL 7 - 25 mg/dL [facility] Urea nitrogen/Creatinine [Mass ratio] 15 mg/mg [facility] Cardiac echo study Procedure Ordered By: Panda Ko on 11-09-2024 Ao ASC index 1.21 cm/m2 [facility] Work Phone: Ao peak obdulio 1.77 m/s [facility] Work Phone: Ao SOV index 1.11 cm/m2 [facility] Work Phone: Ao STJ index 1.08 cm/m2 [facility] Work Phone: Ao VTI 32.51 cm [facility] Work Phone: Ascending aorta 2.55 cm [facility] Work Phone: AV LVOT peak gradient 6 mmHg [facility] Work Phone: AV mean gradient 6 mmHg [facility] Work Phone: AV peak gradient 13 mmHG [facility] Work Phone: AV valve area 1.79 cm2 [facility] Work Phone: AV Velocity Ratio 0.69 [facility] Work Phone: RUBENS (continuity Vmax) 1.91 cm2 [facility] Work Phone: RUBENS (continuity VTI) 1.[address] [facility] Work Phone: RUBENS index (continuity Vmax) 0.9 m/s [facility] Work Phone: RUBENS index (continuity VTI) 0.85 cm2/m2 [facility] Work Phone: Avg e' pk obdulio 0.06 m/s [facility] Work Phone: Body surface area Derived from formula 2.11 m2 [facility] Work Phone: BP EF 62 % [facility] Work Phone: DI (Vmax) 0.69 [facility] Work Phone: DI (VTI) 0.65 m/2 [facility] Work Phone: e' lateral pk obdulio 0.0544 [facility]: e' lateral pk obdulio 0.05 m/s [facility]: e' septal pk obdulio 0.0616 m/s [facility] Work Phone: e' septal pk obdulio 0.06 m/s [facility]: EF SP 2CH 63 [facility] Work Phone: EF SP 4CH 60 [facility] Work Phone: EST RAP 10 mmHg [facility] Work Phone: EST RVSP [address] [facility] Work Phone: FS 21 % [facility] Work Phone: IVC ostium 1.[address] [facility] Work Phone: IVS 0.97 cm [facility] Work Phone: LA area 4CH 26.46 cm2 [facility] Work Phone: [phone] LA ESV BP (MOD) 95 [facility] Work [facility]: LA ESV BP (MOD) index 45 mL/m2 [facility] Work Phone: [phone] LA ESV SP 2CH (MOD) 108 mL [facility] Work Phone: LA ESV SP 4CH (MOD) 76 mL [facility] Work Phone: [phone] LV EDV BP 77 mL [facility] Work Phone: LV EDV SP 2CH 71 mL [facility] Work Phone: [phone] LV EDV SP 4CH 81 mL [facility] [facility] Work Phone[facility]: [phone] LV E[facility] SP 2CH 26 [facility] Work [facility]: LV ESV SP 4CH 32 [facility] Work [facility]: LV mass 187.51 g [facility] Work Phone: LV Mass Index 88.9 g/m2 [facility] Work Phone: LV RWT 0.43 [facility] Work Phone: LV stroke volume BP (ml) 48 mL [facility] Work Phone: LV stroke volume index BP 22.75 mL/m2 [facility] Work Phone: [phone] LVIDD [address] [facility] Work Phone: [phone] LVIDS 3.98 cm [facility] Work Phone: LVOT area 2.75 cm2 [facility] Work Phone: [phone] LVOT diameter 1.87 cm [facility] Work Phone: [phone] LVOT peak obdulio 1.23 m/s [facility] Work Phone: [phone] LVOT peak VTI 21.19 cm [facility] Work Phone: [phone] [facility] stroke volume 58 [facility]3 [facility]: LVOT stroke volume index 27.57 ml/m2 [facility] Work Phone: [phone] [facility] gradient [facility]: [phone] MV peak gradient 20 mmHg [facility] Work Phone: MV stenosis pressure 1/2 time 161.2 ms [facility] Work Phone: MV valve area by continuity eq 1.06 cm2 [facility] Work Phone: [phone] MV valve area p 1/2 method 1.36 cm2 [facility] Work Phone: MV VTI 54.69 cm [facility] Work Phone: MVA (continuity VTI) 1.07 cm [facility] Work Phone: [facility] AV VTI RATIO PRE STRESS 0.65 [facility] Work Phone: [facility] ECHO LV BIPLANE SYSTOLIC VOLUME INDEX 13.74 mL/m2 [facility] Work Phone: [facility] ECHO LV BP DIASTOLIC VOLUME INDEX 36.49 mL/m2 [facility] Work Phone: PV mean gradient 3 [facility]: PV peak gradient 7 mmHg [facility] Work Phone: PV PK OBDULIO 1.3 m/s [facility] Work [facility]: PW 1.07 cm [facility] Work Phone: RA area 4CH (MOD) 15.29 cm2 [facility] Work Phone: RA vol index 4CH (MOD) 18.96 mL/m2 [facility] Work Phone: Right atrium volume 4 chamber method of disks 40 mL [facility] Work [facility]: RV Area diastolic 10.6 cm2 [facility] Work Phone: RV Area systolic 4.5 cm2 [facility] Work Phone: RV basal diam 2.92 cm [facility] Work Phone: RV Fractional area change 57.5 % [facility] Work Phone: RV long diam 6.66 cm [facility] Work Phone: RV mid diam 1.7 cm [facility] Work Phone: RV S' 12.19 cm/s [facility] Work Phone: RVOT peak gradient 4 mmHg [facility] Work Phone: RVOT peak obdulio 0.99 m/s [facility] Work Phone: RVOT peak VTI 16 cm [facility] Work Phone: Sinus 2.34 cm [facility] Work Phone: STJ 2.27 cm [facility] Work Phone: Stroke Volume 58 cm/mL [facility] Work Phone: Stroke volume index 28 [facility] Work Phone: TAPSE 1.41 cm [facility] Work Phone: TR pk grad 35 mmHg [facility] Work Phone: TR pk obdulio 2.97 m/s [facility] Work Phone: [facility] Work Phone: Cardiac echo study Procedure [...] and M-mode) was performed. Imaging system used: [employer]. Indications Indications for study: stroke/tia. [facility] observation (narrative) [facility] ECHOCARDIOGRAMon 11-09-2024 Echocardiography Cardiac rhythm is [...] from the original result were not included. [facility] Facility [facility] Patient Information Patient Name Elizabeth Henley [...] Role Read Date Panda Ko DO Echo [place] 11/09/2024 Left Heart Measurements LV - Systole [...] m/s A (more content not included)... Normal [facility] EXTRA MICROon 11-09-2024 [facility] GLUCOSE POCon 11-09-2024 Glucose [Mass/Vol] 164 mg/dL 70 - 179 mg/dL [facility] POC Sample Type CAPBL [facility] Test performed at ad dress of the patient encounter. [facility] Glucose [Mass/Vol] 128 mg/dL 70 - 179 mg/dL [facility] POC Sample Type CAPBL [facility] Test performed at ad dress of the patient encounter. [facility] Glucose [Mass/Vol] 152 mg/dL 70 - 179 mg/dL [facility] POC Sample Type CAPBL [facility] Test performed at ad dress of the patient encounter. [facility] Glucose [Mass/Vol] 136 mg/dL 70 - 179 mg/dL [facility] POC Sample Type CAPBL [facility] Test performed at ad dress of the patient encounter. [facility] HEPATIC FUNCTION PANELon Albumin [Mass/Vol] 4.2 g/dL 3.5 - 5.0 g/dL [facility] ALP [Catalytic activity/Vol] 107 U/L 32 - 126 U/L [facility] ALT [Catalytic activity/Vol] 8 U/L Low 9 - 48 U/L [facility] AST [Catalytic activity/Vol] 25 U/L 10 - 39 U/L [facility] Comment on above: Specimen slightly he molyzed. AST results may be falsely elevated. Interpret within the clinical context. Bilirubin [Mass/Vol] 0.6 mg/dL [facility] 1.5 mg/dL [facility] Bilirubin.direct [Mass/Vol] 0.1 mg/dL [facility] - 0.3 mg/dL [facility] Comment on above: Specimen hemolyzed. Direct bilirubin results may be falsely decreased. Interpret within the clinical context. Interpretation and review of laboratory results Abnormal [facility] Protein [Mass/Vol] 7.4 g/dL 6.4 - 8.3 g/dL [facility] LIPID PANEL WITH REFLEX TO M EASURED LDLon 11-09-2024 Cholesterol [Mass/Vol] 151 mg/dL NINF - 200 mg/dL [facility] Comment on above: [<200 mg/dL: Desirab le] [200-239 mg/dL: Borderline High] [>239 mg/dL: High] Cholesterol in HDL [Mass/Vol] 59 mg/dL 40 - PINF mg/dL [facility] Comment on above: [<40 mg/dL: Low (Hig h Risk)] [>59 mg/dL: High (Low Risk)] Cholesterol in LDL [Mass/Vol] 81 mg/dL 0 - 99 mg/dL [facility] Comment on above: [<100 mg/dL: Optimal ] [100-129 mg/dL: Near Optimal] [130-159 mg/dL: Borderline High] [160-189 mg/dL: High] [>189 mg/dL: Very High] Cholesterol non HDL [Mass/Vol] 92 mg/dL NINF - 130 mg/dL [facility] Cholesterol.total/Choles terol in HDL [Mass ratio] 2.6 {ratio} NINF - 4.5 [facility] Interpretation and review of laboratory results Normal [facility] Triglyceride [Mass/Vol] 55 mg/dL NINF - 150 mg/dL [facility] Comment on above: [<150 mg/dL: Desirab le] [150-199 mg/dL: Borderline] [200-499 mg/dL: High] [>500 mg/dL: Very High] MAGNESIUMon 11-09-2024 Interpretation and review of laboratory results Normal [facility] Magnesium [Mass/Vol] 1.9 mg/dL 1.6 - 2 .6 mg/dL [facility] Magnesium [Mass/Vol] 1.9 mg/dL Normal 1.6-2.6 [facility] Comment on above: Performed By: #### L IPDR, [facility], CHM7 #### [facility] (DEFAULT) [address] [place] [address] MR Brain WO contraston 11-09 IMPRESSION: Acute [...] MCA infarct. No evidence of hemorrhagic transformation [facility] Radiology Study observation (narrative) [facility] MR Brain WO contrastOrdered By: Elen Burch on 11-09-2024 [facility] Work Phone: MRI BRAIN WITHOUT CONTRASTon [...] infarct. No evidence of hemorrhagic transformation Normal [facility] No Panel Informationon 11-09 [facility] 12 Lead EKGon 11-08-2024 12 Lead EKG Normal [facility] Absolute lymphocyte countOrd ered By: Phillip Maldonado on 11-08-2024 Lymphocytes Auto (Unsp spec) [#/Vol] 1.91 10*3/uL 0.83-4.51 [facility] Absolute neutrophil countOrd ered By: Phillip Maldonado on 11-08-2024 Neutrophils (Bld) [#/Vol] 6.2 10*3/uL 2.0-7.7 [facility] Activated partial thrombopla stin time (aPTT) in platelet poor plasma by coagulation aOrdered By: Phillip Maldonado on 11-08-2024 aPTT Coag (PPP) [Time] 34.5 s 24.1-36.2 [facility] Anion gap in Serum or Plasma Ordered By: Phillip Maldonado on 11-08-2024 Anion gap [Moles/Vol] 10 mmol/L 5-[address] [facility] Automated lymphocyte count a s percentage of total leukocytesOrdered By: Phillip Maldonado on 11-08-2024 Lymphocytes/100 WBC Auto (Unsp spec) 21.1 % 19-41 [facility] BUN/creatinine ratioOrdered By: Phillip Maldonado on 11-08-2024 Urea nitrogen/Creatinine [Mass ratio] 15.4 mg/mg 10- [facility] Basic Metabolic Profile (BMP )on 11-08-2024 BUN/CRE 15.4 RATIO Normal 05-23 [facility] Comment on above: Performed By: #### L 501.4021, L100.0100, L300.4310, L300.3900, L500.2500 ####[facility] [address] [place], [address] Calcium [Mass/Vol] 9.3 mg/dL Normal 7.6-11.0 [facility] Comment on above: Performed By: #### L 501.4021, L100.0100, L300.4310, L300.3900, L500.2500 ####[facility] [address] [place], [address] Chloride [Moles/Vol] 103 mmol/L Normal 98-108 [facility] Comment on above: Performed By: #### L 501.4021, L100.0100, L300.4310, L300.3900, L500.2500 ####[facility] [address] [place], [address] CO2 [Moles/Vol] 26.1 mmol/L Normal 21.0-32.0 [facility] Comment on above: Performed By: #### L 501.4021, L100.0100, L300.4310, L300.3900, L500.2500 ####[facility] [address] [place], [address] Creatinine [Mass/Vol] 0.82 mg/dL Normal 0.70-1.[address] [facility] Comment on above: Performed By: #### L 501.4021, L100.0100, L300.4310, L300.3900, L500.2500 ####[facility] [address] [place], [address] ECRCL 72.42 ml/min Normal 50-250 [facility] Comment on above: Performed By: #### L 501.4021, L100.0100, L300.4310, L300.3900, L500.2500 ####[facility] [address] [place], [address] GAP 10 Normal 5-15 [facility] Comment on above: Performed By: #### L 501.4021, L100.0100, L300.4310, L300.3900, L500.2500 ####[facility] [address] [place], [address] GFR/1.73 sq M.predicted among non-blacks MDRD (S/P/Bld) [Vol rate/Area] 76 mL/min/{1.73_m2} Normal >60 [facility] Comment on above: Result Comment: mL/m in/1.73m2 CKD-EPI Creatinine Equation (2020) Performed By: #### L 501.4021, L100.0100, L300.4310, L300.3900, L500.2500 ####[facility] [address] [place], [address] Glucose [Mass/Vol] 129 mg/dL High 70-99 [facility] Comment on above: Performed By: #### L 501.4021, L100.0100, L300.4310, L300.3900, L500.2500 ####[facility] [address] [place], [address] Potassium [Moles/Vol] 4.2 mmol/L Normal 3.3-5.[address] [facility] Comment on above: Performed By: #### L 501.4021, L100.0100, L300.4310, L300.3900, L500.2500 ####[facility] [address] [place], [address] Sodium [Moles/Vol] 139 mmol/L Normal 133-145 [facility] Comment on above: Performed By: #### L 501.4021, L100.0100, L300.4310, L300.3900, L500.2500 ####[facility] [address] [place], [address] Urea nitrogen [Mass/Vol] 13 mg/dL Normal 4-19 [facility] Comment on above: Performed By: #### L 501.4021, L100.0100, L300.4310, L300.3900, L500.2500 ####[facility] [address] [place], [place], [address] Basophil percentageOrdered B y: Phillip Maldonado on 11-08-2024 Basophils/100 WBC (Bld) 0.7 % 0-1 [facility] Bedside Glucoseon 11-08-2024 FINGERSTICK GLU 127 mg/dL High 74-106 [facility] Comment on above: Result Comment: FRANCINE SKINNER OF PATIENT CARE PER NURSING PROTOCOL Performed By: #### L 501.080 ####[facility] [address] [place], [place], [id number] CBC AND ELECTRONIC DIFFon Basophils (Bld) [#/Vol] 0.05 10*3/uL 0.00 - 0.15 K/uL [facility] Basophils/100 WBC (Bld) 0.6 % [facility] Differential cell count method Nom (Bld) Electronic Differential [facility] Eosinophils (Bld) [#/Vol] 0.14 10*3/uL 0.00 - 0.42 K/uL [facility] Eosinophils/100 WBC (Bld) 1.6 % [facility] Erythrocyte distribution width (RBC) [Ratio] 15.4 % High 10.8 - 14.9 % [facility] Hematocrit (Bld) [Volume fraction] 53 % High 34.9 - 44.3 % [facility] Hemoglobin (Bld) [Mass/Vol] 16.1 g/dL High 11.4 - 15.2 g/dL [facility] Immature granulocytes (Bld) [#/Vol] K/uL NINF - 0.08 K/uL [facility] Immature granulocytes/100 WBC (Bld) 0.3 % [facility] Interpretation and review of laboratory results Abnormal [facility] Lymphocytes (Bld) [#/Vol] 1.52 10*3/uL 1.16 - 3.51 K/uL [facility] Lymphocytes/100 WBC (Bld) 17.6 % [facility] MCH (RBC) [Entitic mass] 27.5 pg 25. 9 - 33.9 pg [facility] MCHC (RBC) [Mass/Vol] 30.4 g/dL Low 31.4 - 35.9 g/dL [facility] MCV (RBC) [Entitic vol] 90.4 fL 79.6 - 97.7 fL [facility] Monocytes (Bld) [#/Vol] 0.72 10*3/uL 0.22 - 0.87 K/uL [facility] Monocytes/100 WBC (Bld) 8.3 % [facility] Neutrophils (Bld) [#/Vol] 6.17 10*3/uL 1.64 - 7.28 K/uL [facility] Nucleated RBC/100 WBC (Bld) [Ratio] 0 % NINF [facility] Platelet mean volume (Bld) [Entitic vol] 10.3 fL 8.5 - 12.2 fL [facility] Platelets (Bld) [#/Vol] 202 10*3/uL 150 - 393 K/uL [facility] RBC (Bld) [#/Vol] 5.86 10*6/uL High [facility] Segmented neutrophils/100 WBC (Bld) 71.6 % [facility] WBC (Bld) [#/Vol] 8.63 10*3/uL 3.99 - 11.19 K/uL [facility] Basophils (Bld) [#/Vol] 0.05 10*3/uL Normal 0.00-0.15 [facility] Comment on above: Performed By: #### L TORIN CONNER, TIFFANY7 #### [facility] (DEFAULT) [address] [address] Basophils/100 WBC (Bld) 0.6 % Normal [facility] Comment on above: Performed By: #### L IPDRTORIN, CHM7 #### [facility] (DEFAULT) [address] [place] [address] DIFF STATUS Electronic Differential Normal [facility] Comment on above: Performed By: #### L IPDR, HFP, CHM7 #### [facility] (DEFAULT) [address] [place] [address] Eosinophils (Bld) [#/Vol] 0.14 10*3/uL Normal 0.00-0.42 [facility] Comment on above: Performed By: #### L IPDR, HFP, CHM7 #### [facility] (DEFAULT) [address] [place] [address] Eosinophils/100 WBC (Bld) 1.6 % Normal [facility] Comment on above: Performed By: #### L IPDR, HFP, CHM7 #### [facility] (DEFAULT) [address] [place] [address] Hematocrit (Bld) [Volume fraction] 53.0 % High 34.9-44.3 [facility] Comment on above: Performed By: #### L IPDR, HFP, CHM7 #### [facility] (DEFAULT) [address] [place] [address] Hemoglobin (Bld) [Mass/Vol] 16.1 g/dL High 11.4-15.2 [facility] Comment on above: Performed By: #### L IPDR, HFP, CHM7 #### [facility] (DEFAULT) [address] [place] [address]168 Immature Grans % 0.3 % Normal [facility] Comment on above: Performed By: #### L IPDR, HFP, CHM7 #### [facility] (DEFAULT) [address] [place] [address] Immature Grans Absolute < Normal <=0.08 [facility] Comment on above: Performed By: #### L IPDR, HFP, CHM7 #### [facility] (DEFAULT) [address] [place] [address] Lymphocytes (Bld) [#/Vol] 1.52 10*3/uL Normal 1.16-3.51 [facility] Comment on above: Performed By: #### L IPDR, HFP, CHM7 #### [facility] (DEFAULT) [address] [place] [address]10 Lymphocytes/100 WBC (Bld) 17.6 % Normal [facility] Comment on above: Performed By: #### L IPDR, HFP, CHM7 #### [facility] (DEFAULT) [address] [place] [address] MCV (RBC) [Entitic vol] 90.4 fL Normal 79.6-97.7 [facility] Comment on above: Performed By: #### L IPDR, HFP, CHM7 #### [facility] (DEFAULT) [address] [place] [address] 04819 Mean Cell Hgb 27.5 pg Normal 25.9-33.9 [facility] Comment on above: Performed By: #### L IPDR, HFP, CHM7 #### [facility] (DEFAULT) [address] [place] [address] 00126 Mean Cell Hgb Conc 30.4 g/dL Low 31.4-35.9 [facility] Comment on above: Performed By: #### L IPDR, HFP, CHM7 #### [facility] (DEFAULT) [address] [place] [address] Monocytes (Bld) [#/Vol] 0.72 10*3/uL Normal 0.22-0.87 [facility] Comment on above: Performed By: #### L IPDR, HFP, CHM7 #### [facility] (DEFAULT) [address] [place] [address]234 Monocytes/100 WBC (Bld) 8.3 % Normal [facility] Comment on above: Performed By: #### L IPDR, HFP, CHM7 #### [facility] (DEFAULT) [address] [place] [address] 03267 Nucleated RBC 0.0 /100 WBC Normal <=0.2 [facility] Comment on above: Performed By: #### L IPDR, HFP, CHM7 #### [facility] (DEFAULT) [address] [place] [address] 88233 Platelet mean volume (Bld) [Entitic vol] 10.3 fL Normal 8.5-12.2 [facility] Comment on above: Performed By: #### L IPDR, HFP, CHM7 #### [facility] (DEFAULT) [address] [place] [address]652 Platelets (Bld) [#/Vol] 202 10*3/uL Normal 150-393 [facility] Comment on above: Performed By: #### L IPDR, HFP, CHM7 #### [facility] (DEFAULT) [address] [place] [address] 48124 RBC (Bld) [#/Vol] 5.86 10*6/uL High 3.91-5.04 [facility] Comment on above: Performed By: #### L IPDR, HFP, CHM7 #### [facility] (DEFAULT) [address] [place] [address] 23592 RBC Distribution 15.4 % High 10.8-14.9 [facility] Comment on above: Performed By: #### L IPDR, HFP, CHM7 #### [facility] (DEFAULT) [address] [place] [address] 24835 Segs + Bands Auto 71.6 % Normal [facility] Comment on above: Performed By: #### L IPDR, HFP, CHM7 #### [facility] (DEFAULT) [address] [place] [address] 77070 Segs + Bands,Absolute Auto 6.17 K/uL Normal 1.64-7.28 [facility] Comment on above: Performed By: #### L IPDR, HFP, CHM7 #### [facility] (DEFAULT) [address] [place] [address] WBC (Bld) [#/Vol] 8.63 10*3/uL Normal 3.99-11.19 [facility] Comment on above: Performed By: #### L IPDR, HFP, CHM7 #### [facility] (DEFAULT) [address] [place] [address] CBC W/Diff, Automatedon 04-0 -2024 Absolute Lymph 1.91 X10 3/uL Normal 0.83-4.51 [facility] Comment on above: Performed By: #### L 501.4021, L100.0100, L300.4310, L300.3900, L500.2500 ####[facility] [address] [place], [address] Absolute Neut 6.2 X10 3/uL Normal 2.0-7.7 [facility] Comment on above: Performed By: #### L 501.4021, L100.0100, L300.4310, L300.3900, L500.2500 ####[facility] [address] [place], [address] Basophils/100 WBC (Bld) 0.7 % Normal 0-1 [facility] Comment on above: Performed By: #### L 501.4021, L100.0100, L300.4310, L300.3900, L500.2500 ####[facility] [address] [place], [address] Eosinophils/100 WBC (Bld) 1.8 % Normal 0-5 [facility] Comment on above: Performed By: #### L 501.4021, L100.0100, L300.4310, L300.3900, L500.2500 ####[facility] [address] [place], [address] Erythrocyte distribution width (RBC) [Ratio] 15.3 % High 11.6-14.6 [facility] Comment on above: Performed By: #### L 501.4021, L100.0100, L300.4310, L300.3900, L500.2500 ####[facility] [address] [place], [address] Hematocrit (Bld) [Volume fraction] 47.4 % High 37-47 [facility] Comment on above: Performed By: #### L 501.4021, L100.0100, L300.4310, L300.3900, L500.2500 ####[facility] [address] [place], [address] Hemoglobin (Bld) [Mass/Vol] 15.3 g/dL High 12.0-15.0 [facility] Comment on above: Performed By: #### L 501.4021, L100.0100, L300.4310, L300.3900, L500.2500 ####[facility] [address] [place], [address] IG% 0.300 Normal 0.0-0.9 [facility] Comment on above: Result Comment: IG% - Immature Granulocytes (promyelocytes, myelocytes andmetamyelocytes) > 1% indicates that a LEFT SHIFT is Present. Performed By: #### L 501.4021, L100.0100, L300.4310, L300.3900, L500.2500 ####[facility] [address] [place], [address] Lymphocytes/100 WBC (Bld) 21.1 % Normal 19-41 [facility] Comment on above: Performed By: #### L 501.4021, L100.0100, L300.4310, L300.3900, L500.2500 ####[facility] [address] [place], [address] MCH (RBC) [Entitic mass] 28.6 pg Normal 27.0-32.0 [facility] Comment on above: Performed By: #### L 501.4021, L100.0100, L300.4310, L300.3900, L500.2500 ####[facility] [address] [place], [address] MCHC (RBC) [Mass/Vol] 32.3 g/dL Normal 32-[address] [facility] Comment on above: Performed By: #### L 501.4021, L100.0100, L300.4310, L300.3900, L500.2500 ####[facility] [address] [place], [address] MCV (RBC) [Entitic vol] 88.6 fL Normal 81-99 [facility] Comment on above: Performed By: #### L 501.4021, L100.0100, L300.4310, L300.3900, L500.2500 ####[facility] [address] [place], [address] Monocytes/100 WBC (Bld) 8.2 % Normal 0-10 [facility] Comment on above: Performed By: #### L 501.4021, L100.0100, L300.4310, L300.3900, L500.2500 ####[facility] [address] [place], [address] Neutrophils/100 WBC (Bld) 67.9 % Normal 47-70 [facility] Comment on above: Performed By: #### L 501.4021, L100.0100, L300.4310, L300.3900, L500.2500 ####[facility] [address] [place], [address] Nucleated RBC (Bld) [#/Vol] 0 10*3/uL Normal 0-5 [facility] Comment on above: Performed By: #### L 501.4021, L100.0100, L300.4310, L300.3900, L500.2500 ####[facility] [address] [place], [address] Platelet mean volume (Bld) [Entitic vol] 10.0 fL Normal 6.2-12.0 [facility] Comment on above: Performed By: #### L 501.4021, L100.0100, L300.4310, L300.3900, L500.2500 ####[facility] [address] [place], [address] Platelets (Bld) [#/Vol] 194 10*3/uL Normal 150-450 [facility] [facility] Comment on above: Performed By: #### L 501.4021, L100.0100, L300.4310, L300.3900, L500.2500 ####[facility] [address] [place], [address] RBC (Bld) [#/Vol] 5.35 10*6/uL Normal 4.2-5.4 [facility] Comment on above: Performed By: #### L 501.4021, L100.0100, L300.4310, L300.3900, L500.2500 ####[facility] [address] [place], [address] RDW SD 49.4 fl High 35.1-43.9 [facility] Comment on above: Performed By: #### L 501.4021, L100.0100, L300.4310, L300.3900, L500.2500 ####[facility] [address] [place], [address] WBC (Bld) [#/Vol] 9.1 10*3/uL Normal 4.4-11.0 [facility] Comment on above: Performed By: #### L 501.4021, L100.0100, L300.4310, L300.3900, L500.2500 ####[facility] [address] [place], [address] CHEM 7 (LYTES,BUN,CREA,GLUC) on 11-08-2024 Anion gap [Moles/Vol] 24 mmol/L High 7-17 [facility] Comment on above: Performed By: #### L IPDR, HFP, CHM7 #### [facility] (DEFAULT) [address] [place] [address] 17746 Chloride [Moles/Vol] 100 mmol/L Normal 98-108 [facility] Comment on above: Performed By: #### L IPDR, HFP, CHM7 #### [facility] (DEFAULT) [address] [place] [address] 89002 CO2 [Moles/Vol] 20 mmol/L Low 21-31 [facility] Comment on above: Performed By: #### L IPDR, HFP, CHM7 #### [facility] (DEFAULT) [address] [place] [address] 36080 Creatinine [Mass/Vol] 0.84 mg/dL Normal 0.50-1.20 [facility] Comment on above: Performed By: #### L IPDR, HFP, CHM7 #### [facility] (DEFAULT) [address] [place] [address] 68296 GFR/1.73 sq M.predicted among non-blacks MDRD (S/P/Bld) [Vol rate/Area] 74 mL/min/{1.73_m2} Normal >=60 [facility] Comment on above: Result Comment: Repo rted eGFR is based on the CKD-EPI 2020 equation using creatinine, age, and sex. Performed By: #### L IPDR, HFP, CHM7 #### [facility] (DEFAULT) [address] [place] [address] 91717 Glucose [Mass/Vol] 109 mg/dL Normal Nonfastin g : 70-179 mg/dL; Fastin-99 [facility] Comment on above: Performed By: #### L IPDR, HFP, CHM7 #### [facility] (DEFAULT) [address] [place] [address] 56293 Osmolality [Osmolality] 293 mosm/kg Normal 278-305 [facility] Comment on above: Performed By: #### L IPDR HFP, CHM7 #### [facility] (DEFAULT) [address] [place] [address] 97697 Potassium [Moles/Vol] 5.6 mmol/L High 3.5-5.0 [facility] Comment on above: Result Comment: Spec imen slightly hemolyzed. Potassium results may be falsey elevated by more than 0.5 mmol/L. Consider recollection. Performed By: #### L IPDRTORIN, CHM7 #### [facility] (DEFAULT) [address] [place] [address] 71878 Sodium [Moles/Vol] 138 mmol/L Normal 135-145 [facility] Comment on above: Performed By: #### L IPDRTORIN, CHM7 #### [facility] (DEFAULT) [address] [place] [address] 82663 Urea nitrogen [Mass/Vol] 13 mg/dL Normal 7-25 [facility] Comment on above: Performed By: #### L IPDR, HFP, CHM7 #### [facility] (DEFAULT) [address] [place] [address] 45603 Urea nitrogen/Creatinine [Mass ratio] 15 mg/mg Normal [facility] Comment on above: Performed By: #### L IPDR, HFP, CHM7 #### [facility] (DEFAULT) [address] [place] [address] [facility] 7 - EDon 11-08-2024 Anion gap [Moles/Vol] 8 mmol/L 7 - 17 mmol/L [facility] Chloride [Moles/Vol] 101 mmol/L 98 - 10 8 mmol/L [facility] CO2 [Moles/Vol] 31 mmol/L 21 - 31 mmol/L [facility] Creatinine [Mass/Vol] 0.82 mg/dL 0.50 - 1.20 mg/dL [facility] eGFR, CKD-EPI, Female 78 - PINF [facility] Comment on above: Reported eGFR is bas ed on the CKD-EPI 2020 equation using creatinine, age, and sex. Glucose [Mass/Vol] 106 mg/dL 70 - 179 mg/dL [facility] Osmolality Calc [Osmolality] [facility] Potassium [Moles/Vol] 4.5 mmol/L 3.5 - 5.0 mmol/L [facility] Sodium [Moles/Vol] 135 mmol/L 135 - 145 mmol/L [facility] Urea nitrogen [Mass/Vol] 12 mg/dL 7 - 25 mg/dL [facility] Urea nitrogen/Creatinine [Mass ratio] 15 mg/mg [facility] Anion gap [Moles/Vol] 8 mmol/L Normal 7-17 [facility] Comment on above: Performed By: #### L IPDR, HFP, CHM7 #### [facility] (DEFAULT) [address] [place] [address] 14619 Chloride [Moles/Vol] 101 mmol/L Normal 98-108 [facility] Comment on above: Performed By: #### L IPDR, HFP, CHM7 #### [facility] (DEFAULT) [address] [place] [address] CO2 [Moles/Vol] 31 mmol/L Normal 21-31 [facility] Comment on above: Performed By: #### L IPDR, HFP, CHM7 #### [facility] (DEFAULT) [address] [place] [address] 66227 Creatinine [Mass/Vol] 0.82 mg/dL Normal 0.50-1.20 [facility] Comment on above: Performed By: #### L IPDR, HFP, CHM7 #### [facility] (DEFAULT) [address] [place] [address] 55787 GFR/1.73 sq M.predicted among non-blacks MDRD (S/P/Bld) [Vol rate/Area] 76 mL/min/{1.73_m2} Normal >=60 [facility] Comment on above: Result Comment: Repo rted eGFR is based on the CKD-EPI 2020 equation using creatinine, age, and sex. Performed By: #### L IPDR, HFP, CHM7 #### [facility] (DEFAULT) [address] [place] [address] 91564 Glucose [Mass/Vol] 106 mg/dL Normal Nonfastin g : 70-179 mg/dL; Fastin-99 [facility] Comment on above: Performed By: #### L IPDR, HFP, CHM7 #### [facility] (DEFAULT) [address] [place] [address] 57855 Osmolality [Osmolality] 285 mosm/kg Normal 278-305 [facility] Comment on above: Performed By: #### L IPDR, HFP, CHM7 #### [facility] (DEFAULT) [address] [place] [address] 26564 Potassium [Moles/Vol] 4.5 mmol/L Normal 3.5-5.0 [facility] Comment on above: Performed By: #### L IPDR, HFP, CHM7 #### [facility] (DEFAULT) [address] [place] [address] 61228 Sodium [Moles/Vol] 135 mmol/L Normal 135-145 [facility] Comment on above: Performed By: #### L IPDR, HFP, CHM7 #### [facility] (DEFAULT) [address] [place] [address] 07912 Urea nitrogen [Mass/Vol] 12 mg/dL Normal 7-25 [facility] Comment on above: Performed By: #### L IPDR, HFP, CHM7 #### [facility] (DEFAULT) [address] [place] [address] 33657 Urea nitrogen/Creatinine [Mass ratio] 15 mg/mg Normal [facility] Comment on above: Performed By: #### L IPDR, HFP, CHM7 #### [facility] (DEFAULT) [address] [place] [address] CT ANGIO BRAIN/NECKon 2024 CT ANGIO BRAIN/NECK [...] have reviewed and approved this report. Normal [facility] CT CEREBRAL PERFUSION ANALYS [place] 11-08-2024 [...] have reviewed and approved this report. Normal [facility] IMPRESSION: Small core infarct with ischemic [...] I have reviewed and approved this report. [facility] Radiology Study observation (narrative) [facility] CT Head and CT Brain for per [...] I have reviewed and approved this report. [facility] Radiology Study observation (narrative) [facility] CT Head limitedon 11-08-2024 IMPRESSION: No [...] have reviewed and approved this report. [facility] Radiology Study observation (narrative) [facility] CT Head limitedOrdered By: Zita Jacobs on 11-08-[address] [facility] [address] STROKE HEAD-STROKE ALERT ONLYon 11-08-2024 [...] have reviewed and approved this report. Normal [facility] Carbon dioxide, total [Moles /volume] in Central venous bloodOrdered By: Phillip Maldonado on 11-08-2024 CO2 [Moles/Vol] 26.1 mmol/L 21.0-32.0 [facility] Chloride assayOrdered By: Robby Maldonado on 11-08-2024 Chloride [Moles/Vol] 103 mmol/L 98-108 [facility] Emergency Department Summary on 11-08-2024 Emergency Department Summary Normal [facility] Eosinophil percentageOrdered By: Phillip Maldonado on 11-08-2024 Eosinophils/100 WBC (Bld) 1.8 % 0-5 [facility] Erythrocyte distribution wid th (RBC) [Ratio]Ordered By: Phillip Maldonado on 11-08-2024 Erythrocyte distribution width (RBC) [Entitic vol] 49.4 fL High 35.1-43.9 [facility] Erythrocyte distribution wid th ratioOrdered By: Phillip Maldonado on 11-08-2024 Erythrocyte distribution width (RBC) [Ratio] 15.3 % High 11.6-14.6 [facility] Erythrocyte distribution wid th standard deviationOrdered By: Phillip Maldonado on 11-08-2024 Erythrocyte distribution width (RBC) [Ratio] 49.4 fl High 35.1-43.9 [facility] Estimation of creatinine martín aranceOrdered By: Phillip Maldonado on 11-08-2024 Estimated Creatinine Clearance Calc 72.42 ml/min 50-250 [facility] GFR/1.73 sq M.predicted ronit g non-blacks MDRD (S/P/Bld) [Vol rate/Area]Ordered By: Phillip Maldonado on 11-08-2024 Estimated GFR (MDRD) Non-Af Amer 76 >60 [facility] Comment on above: mL/min/1.73m2 CKD-EP I Creatinine Equation (2020) GLUCOSE POCon 11-08-2024 Glucose [Mass/Vol] 114 mg/dL 70 - 179 mg/dL [facility] POC Sample Type CAPBL [facility] Test performed at ad dress of the patient encounter. [facility] Glucose [Mass/Vol] 84 mg/dL 70 - 179 mg/dL [facility] POC Sample Type VENO [facility] Test performed at ad dress of the patient encounter. [facility] Glomerular filtration rate ( GFR) estimation/1.73 sq m using serum, plasma, or whole bOrdered By: Phillip Maldonado on 11-08-2024 GFR/1.73 sq M.predicted among non-blacks MDRD (S/P/Bld) [Vol rate/Area] 76 mL/min/{1.73_m2} >60 [facility] Comment on above: mL/min/1.73m2 CKD-EP I Creatinine Equation (2020) Glucose measurement at [facility] deOrdered By: Phillip Maldonado on 11-08-2024 Glucose [Mass/Vol] 127 mg/dL High 74-106 [facility] Comment on above: MANAGEMENT OF PATIEN T CARE PER NURSING PROTOCOL HEMOGLOBIN A1Con 11-08-2024 Average glucose Estimated from glycated hemoglobin (Bld) [Mass/Vol] 151 mg/dL [facility] HbA1c (Bld) [Mass fraction] 6.9 % High 4.7 - 5.6 % [facility] Interpretation and review of laboratory results Abnormal [facility] Glucose [Mass/Vol] 151 mg/dL Normal [facility] Comment on above: Performed By: #### L SKYLERR, TORIN, CHM7 #### [facility] (DEFAULT) [address] [place] [address] Hemoglobin A1C HPLC 6.9 % High 4.7-5.6 [facility] Comment on above: Performed By: #### L IPDR, TORIN, CHM7 #### [facility] (DEFAULT) [address] [address] HEPATIC FUNCTION PANELon Albumin [Mass/Vol] 3.9 g/dL 3.5 - 5.0 g/dL [facility] ALP [Catalytic activity/Vol] 101 U/L 32 - 126 U/L [facility] ALT [Catalytic activity/Vol] 7 U/L Low 9 - 48 U/L [facility] AST [Catalytic activity/Vol] 12 U/L 10 - 39 U/L [facility] Bilirubin [Mass/Vol] 0.6 mg/dL NINF - 1.5 mg/dL [facility] Bilirubin.direct [Mass/Vol] 0.1 mg/dL [facility] 0.[facility] mg/dL [facility] Interpretation and review of laboratory results Abnormal [facility] Protein [Mass/Vol] 7.3 g/dL 6.4 - 8.3 g/dL [facility] Albumin [Mass/Vol] 3.9 g/dL Normal 3.5-5.0 [facility] Comment on above: Performed By: #### L IPDRTORIN, CHM7 #### [facility] (DEFAULT) [address] [address] ALP [Catalytic activity/Vol] 101 U/L Normal 32-126 [facility] Comment on above: Performed By: #### L IPDR, HFP, CHM7 #### [facility] (DEFAULT) [address] [address] ALT [Catalytic activity/Vol] 7 U/L Low 9-48 [facility] Comment on above: Performed By: #### L IPDR, HFP, CHM7 #### [facility] (DEFAULT) [address] [address] AST [Catalytic activity/Vol] 12 U/L Normal 10-39 [facility] Comment on above: Performed By: #### L IPDR, HFP, CHM7 #### [facility] (DEFAULT) [address] [place] [address] 25011 Bilirubin [Mass/Vol] 0.6 mg/dL Normal <1.5 [facility] Comment on above: Performed By: #### L IPDR, HFP, CHM7 #### [facility] (DEFAULT) [address] [place] [address]83 Bilirubin.indirect [Mass/Vol] 0.1 mg/dL Normal <0.3 [facility] Comment on above: Performed By: #### L IPDR, HFP, CHM7 #### [facility] (DEFAULT) [address] [place] [address] 12974 Protein [Mass/Vol] 7.3 g/dL Normal 6.4-8.3 [facility] Comment on above: Performed By: #### L IPDR, HFP, CHM7 #### [facility] (DEFAULT) [address] [place] [address] 64275 Albumin [Mass/Vol] 4.2 g/dL Normal 3.5-5.0 [facility] Comment on above: Performed By: #### L IPDR, HFP, CHM7 #### [facility] (DEFAULT) [address] [place] [address] 71942 ALP [Catalytic activity/Vol] 107 U/L Normal 32-126 [facility] Comment on above: Performed By: #### L IPDR, HFP, CHM7 #### [facility] (DEFAULT) [address] [place] [address] 03468 ALT [Catalytic activity/Vol] 8 U/L Low 9-48 [facility] Comment on above: Performed By: #### L IPDR, HFP, CHM7 #### [facility] (DEFAULT) [address] [place] [address] 75205 AST [Catalytic activity/Vol] 25 U/L Normal 10-39 [facility] Comment on above: Result Comment: Spec imen slightly hemolyzed. AST results may be falsely elevated. Interpret within the clinical context. Performed By: #### L IPDR, HFP, CHM7 #### [facility] (DEFAULT) [address] [place] [address] 86159 Bilirubin [Mass/Vol] 0.6 mg/dL Normal <1.5 [facility] Comment on above: Performed By: #### L IPDR, HFP, CHM7 #### [facility] (DEFAULT) [address] [place] [address] 89995 Bilirubin.indirect [Mass/Vol] 0.1 mg/dL Normal <0.3 [facility] Comment on above: Result Comment: Spec imen hemolyzed. Direct bilirubin results may be falsely decreased. Interpret within the clinical context. Performed By: #### L IPDR, HFP, CHM7 #### [facility] (DEFAULT) [address] [place] [address] 05434 Protein [Mass/Vol] 7.4 g/dL Normal 6.4-8.3 [facility] Comment on above: Performed By: #### L IPDR, HFP, CHM7 #### [facility] (DEFAULT) [address] [place] [address] 56848 HIGH SENSITIVITY TROPONIN I - SINGLE ORDEROrdered By: Carlos Eduardo [place] on 11-08-2024 Interpretation and review of laboratory results Abnormal [facility] Troponin I.cardiac High sensitivity method [Mass/Vol] 146 ng/L High NINF - 34 ng/L [facility] Comment on above: Suggestive of myocar dial injury [facility] HIGH SENSITIVITY TROPONIN I - SINGLE ORDERon 11-08-2024 hs-Troponin I 146 ng/L High <34 [facility] Comment on above: Order Comment: Acute Coronary Syndrome (ACS): Initial Evaluation and Management:[email or web address] Result Comment: Sugg estive of myocardial injury Performed By: #### L IPDR, HFP, CHM7 #### [facility] (DEFAULT) [address] [place] [address] 12424 Hematocrit Auto (Bld) [Volum e fraction]Ordered By: Phillip Maldonado on 11-08-2024 Hematocrit (Bld) [Volume fraction] 47.4 % High 37-47 [facility] Hemoglobin measurementOrdere d By: Phillip Maldonado on 11-08-2024 Hemoglobin (Bld) [Mass/Vol] 15.3 g/dL High 12.0-15.0 [facility] Immature granulocytes/100 WB C Auto (Bld)Ordered By: Phillip Maldonado on 11-08-2024 Immature granulocytes/100 WBC (Bld) 0.300 % 0.0-0.9 [facility] Comment on above: IG% - Immature Granu locytes (promyelocytes, myelocytes and metamyelocytes) > 1% indicates that a LEFT SHIFT is Present. International normalized rat io (INR) calculationOrdered By: Phillip Maldonado on 11-08-2024 INR Coag (Bld) [Relative time] 1.5 {INR} [facility] L499.0042on 11-08-2024 Trop T High Sen Normal <=14 [facility] Comment on above: Result Comment: Canc elled via OM: Order cancelled - Patient discharged Performed By: #### L 499.0042 ####[facility] [address] [place], [address] L499.0043on 11-08-2024 Trop T High Sen Normal <=14 [facility] Comment on above: Result Comment: Canc elled via OM: Order cancelled - Patient discharged Performed By: #### L 499.0043 ####[facility] [address] [place], [address] L501.4021on 11-08-2024 Trop T High Sen 20 ng/L High <=14 [facility] Comment on above: Performed By: #### L 501.4021, L100.0100, L300.4310, L300.3900, L500.2500 ####[facility] [address] [place], [address] LAVENDER TOP TUBEOrdered By: Madelyn Lacey on 11-08-2024 [facility] LIPID PANEL WITH REFLEX TO Kennedy KIMBALL LDLon 11-08-2024 Calculated LDL Cholesterol 81 mg/dL Normal 0-99 [facility] Comment on above: Result Comment: [<10 0 mg/dL: Optimal] [100-129 mg/dL: Near Optimal] [130-159 mg/dL: Borderline High] [160-189 mg/dL: High] [>189 mg/dL: Very High] Performed By: #### L IPDR, HFP, CHM7 #### [facility] (DEFAULT) [address] [place] [address] 90231 Cholesterol [Mass/Vol] 151 mg/dL Normal <200 [facility] Comment on above: Result Comment: [<20 0 mg/dL: Desirable] [200-239 mg/dL: Borderline High] [>239 mg/dL: High] Performed By: #### L IPDR, HFP, CHM7 #### [facility] (DEFAULT) [address] [place] [address] 11902 Cholesterol in HDL [Mass/Vol] 59 mg/dL Normal >=40 [facility] Comment on above: Result Comment: [<40 mg/dL: Low (High Risk)] [>59 mg/dL: High (Low Risk)] Performed By: #### L IPDR, HFP, CHM7 #### [facility] (DEFAULT) [address] [place] [address] 79577 Non HDL Cholesterol 92 mg/dL Normal <130 [facility] Comment on above: Performed By: #### L IPDR, HFP, CHM7 #### [facility] (DEFAULT) [address] [place] [address] 14721 Total Cholesterol/HDL Ratio 2.6 Normal <4.5 [facility] Comment on above: Performed By: #### L IPDR, HFP, CHM7 #### [facility] (DEFAULT) [address] [place] [address] 89580 Triglyceride [Mass/Vol] 55 mg/dL Normal <150 [facility] Comment on above: Result Comment: [<15 0 mg/dL: Desirable] [150-199 mg/dL: Borderline] [200-499 mg/dL: High] [>500 mg/dL: Very High] Performed By: #### L IPDR, HFP, CHM7 #### [facility] (DEFAULT) [address] [place] [address] LT BLUE TOP TUBEOrdered By: Denise Mittal on 11-08-2024 [facility] Lymphocytes Auto (Unsp spec) [#/Vol]Ordered By: Phillip Maldonado on 11-08-2024 Lymphocytes (Bld) [#/Vol] 1.91 10*3/uL 0.83-4.51 [facility] Lymphocytes/100 WBC Auto (Un sp spec)Ordered By: Phillip Maldonado on 11-08-2024 Lymphocytes/100 WBC (Bld) 21.1 % 19-41 [facility] MCV (mean corpuscular volume ) determinationOrdered By: Phillip Maldonado on 11-08-2024 MCV (RBC) [Entitic vol] 88.6 fL 81-99 [facility] Mean corpuscular hemoglobin (MCH) determinationOrdered By: Phillip Maldonado on 11-08-2024 MCH (RBC) [Entitic mass] 28.6 pg 27.0-32.0 [facility] Mean corpuscular hemoglobin concentration (MCHC) determinationOrdered By: Phillip Maldonado on 11-08-2024 MCHC (RBC) [Mass/Vol] 32.3 g/dL 32-[address] [facility] Mean platelet volume determi nationOrdered By: Phillip Maldonado on 11-08-2024 Platelet mean volume (Bld) [Entitic vol] 10.0 fL 6.2-12.0 [facility] Monocyte percentageOrdered B y: Phillip Maldonado on 11-08-2024 Monocytes/100 WBC (Bld) 8.2 % 0-10 [facility] Neutrophil percentageOrdered By: Phillip Maldonado on 11-08-2024 Neutrophils/100 WBC (Bld) 67.9 % 47-70 [facility] No Panel Informationon 11-08 [facility] Nucleated red blood cell per centageOrdered By: Phillip Maldonado on 11-08-2024 Nucleated RBC/100 WBC (Bld) [Ratio] 0 % 0-5 [facility] PTINR-STROKEon 11-08-2024 INR Coag (Bld) [Relative time] 1.5 {INR} High 0.9 - 1.1 [facility] Interpretation and review of laboratory results Abnormal [facility] PT Coag (PPP) [Time] 18 s High [facility] INR Coag (PPP) [Relative time] 1.5 {INR} High 0.9-1.1 [facility] Comment on above: Performed By: #### L IPDR, HFP, CHM7 #### [facility] (DEFAULT) [address] [place] [address] 14925 PT Coag (PPP) [Time] 18.0 s High 11.9-14.2 [facility] Comment on above: Performed By: #### L IPDR, HFP, CHM7 #### [facility] (DEFAULT) [address] [place] [address] 6[address]18 PTTon 11-08-2024 aPTT Coag (PPP) [Time] 37.4 s High [facility] Interpretation and review of laboratory results Abnormal [facility] aPTT Coag (Bld) [Time] 37.4 s High 24.0-34.3 [facility] Comment on above: Performed By: #### L IPDR, HFP, CHM7 #### [facility] (DEFAULT) [address] [place] [address] 84798 Partial Thromboplast Timeon 11-08-2024 aPTT Coag (Bld) [Time] 34.5 s Normal 24.1-36.2 [facility] Comment on above: Performed By: #### L 501.4021, L100.0100, L300.4310, L300.3900, L500.2500 ####[facility] [address] [place], [place], [address] Platelet countOrdered By: Robby Maldonado on 11-08-2024 Platelets (Bld) [#/Vol] 194 10*3/uL 150-450 [facility] Potassium (Unsp spec) [Mass/ Vol]Ordered By: Phillip Maldonado on 11-08-2024 Potassium [Moles/Vol] 4.2 mmol/L 3.3-5.[address] [facility] Potassium measurement (mass/ volume)Ordered By: Phillip Maldonado on 11-08-2024 Potassium (Unsp spec) [Mass/Vol] 4.2 mmol/L 3.3-5.1 [facility] Prothrombin Time w/INRon INR Coag (PPP) [Relative time] 1.5 {INR} Normal [facility] Comment on above: Performed By: #### L 501.4021, L100.0100, L300.4310, L300.3900, L500.2500 ####[facility] [address] [place], [address] PT Coag (PPP) [Time] 18.4 s High 11.7-14.9 [facility] Comment on above: Performed By: #### L 501.4021, L100.0100, L300.4310, L300.3900, L500.2500 ####[facility] [address] [place], [address] Prothrombin timeOrdered By: Phillip Maldonado on 11-08-2024 PT Coag (PPP) [Time] 18.4 s High 11.7-14.9 [facility] RBC Auto (Bld) [#/Vol]Ordere d By: Phillip Maldonado on 11-08-2024 RBC (Bld) [#/Vol] 5.35 10*6/uL 4.2-5.4 [facility] STROKE Brain/Head without Co nton 11-08-2024 STROKE Brain/Head without Cont Normal [facility] STROKE CTA Head AND Neck W/C onon 11-08-2024 STROKE CTA Head AND Neck W/Con Normal [facility] Serum creatinine measurement (mass/volume)Ordered By: Phillip Maldonado on 11-08-2024 Creatinine [Mass/Vol] 0.82 mg/dL 0.70-1.[address] [facility] Serum glucose measurement (m ass/volume)Ordered By: Phillip Maldonado on 11-08-2024 Glucose [Mass/Vol] 129 mg/dL High 70-99 [facility] Serum or plasma calcium bessie urement (mass/volume)Ordered By: Phillip Maldonado on 11-08-2024 Calcium [Mass/Vol] 9.3 mg/dL 7.6-11.0 [facility] Serum or plasma urea nitroge n measurement (mass/volume)Ordered By: Phlilip Maldonado on 11-08-2024 Urea nitrogen [Mass/Vol] 13 mg/dL 4-19 [facility] Sodium levelOrdered By: Tawanda Maldonado on 11-08-2024 Sodium [Moles/Vol] 139 mmol/L 133-145 [facility] Troponin T.cardiac High sens itivity method [Mass/Vol]Ordered By: Phillip Maldonado on 11-08-2024 Troponin T High Sensitivity 20 ng/L High <14 [facility] Troponin T.cardiac [Mass/vol ume] in Serum or Plasma by High sensitivity methodOrdered By: Phillip Maldonado on 11-08-2024 Troponin T.cardiac High sensitivity method [Mass/Vol] 20 ng/L High <14 [facility] URINALYSIS REFLEX TO CULTURE PERFORMABLEon 11-08-2024 Appearance (U) Clear Clear [facility] Bacteria LM Ql (Urine sed) TRACE Abnormal ABSENT [facility] Color (U) Yellow Yellow [facility] Epithelial cells.squamous LM Ql (Urine sed) 0-2/hpf 0-2/hpf, 3-5/hpf = 1+ [facility] Glucose Test strip (U) [Mass/Vol] >=1000 mg/dL Abnormal Negative [facility] Interpretation and review of laboratory results Abnormal [facility] Ketones (U) [Mass/Vol] Negative Negative [facility] Leukocyte esterase Test strip Ql (U) Negative Negative [facility] Nitrite Ql (U) Negative Negative [facility] pH (U) 5.5 [pH] 5.0 - 7.[address] [facility] Protein (U) [Mass/Vol] Negative Negative [facility] RBC (U) [#/Vol] Negative Negative [facility] RBC LM.HPF (Urine sed) [#/Area] 0-[address] [facility] Specific gravity (U) [Rel density] High 1.001 - 1.035 [facility] Urobilinogen (U) [Mass/Vol] 1.0 E.U./dL 0.2 E.U/dL, 1.0 E.U/dL [facility] WBC LM.HPF (Urine sed) [#/Area] 0 - 5 [facility] Appearance (U) Clear Normal Clear [facility] Comment on above: Order Comment: For i ndwelling catheters, specimen collection is acceptable on catheter day 1 and 2 only. ? Performed By: #### U [id number] #### [facility] (DEFAULT) [address] [place] [address] Bacteria TRACE Abnormal ABSENT [facility] Comment on above: Order Comment: For i ndwelling catheters, specimen collection is acceptable on catheter day 1 and 2 only. ? Performed By: #### U [id number] #### [facility] (DEFAULT) [address] [place] [address] Blood Urine Negative Normal Negative [facility] Comment on above: Order Comment: For i ndwelling catheters, specimen collection is acceptable on catheter day 1 and 2 only. ? Performed By: #### U [id number] #### [facility] (DEFAULT) [address] [place] [address] Color (U) Yellow Normal Yellow [facility] Comment on above: Order Comment: For i ndwelling catheters, specimen collection is acceptable on catheter day 1 and 2 only. ? Performed By: #### U [id number] #### [facility] (DEFAULT) [address] [place] [address] Glucose Ql (U) >=1000 mg/dL Abnormal Negative [facility] Comment on above: Order Comment: For i ndwelling catheters, specimen collection is acceptable on catheter day 1 and 2 only. ? Performed By: #### U [id number] #### [facility] (DEFAULT) [address] [place] [address] Ketones Ql (U) Negative Normal Negative [facility] Comment on above: Order Comment: For i ndwelling catheters, specimen collection is acceptable on catheter day 1 and 2 only. ? Performed By: #### U [id number] #### [facility] (DEFAULT) [address] [place] [address] Leukocyte esterase Test strip Ql (U) Negative Normal Negative [facility] Comment on above: Order Comment: For i ndwelling catheters, specimen collection is acceptable on catheter day 1 and 2 only. ? Performed By: #### U [id number] #### [facility] (DEFAULT) [address] [place] [address] Nitrites Urine Negative Normal Negative [facility] Comment on above: Order Comment: For i ndwelling catheters, specimen collection is acceptable on catheter day 1 and 2 only. ? Performed By: #### U [id number] #### [facility] (DEFAULT) [address] [place] [address] pH (U) 5.5 [pH] Normal 5.0-7.0 [facility] Comment on above: Order Comment: For i ndwelling catheters, specimen collection is acceptable on catheter day 1 and 2 only. ? Performed By: #### U [id number] #### [facility] (DEFAULT) [address] [place] [address] Protein Urine Negative Normal Negative [facility] Comment on above: Order Comment: For i ndwelling catheters, specimen collection is acceptable on catheter day 1 and 2 only. ? Performed By: #### U [id number] #### [facility] (DEFAULT) [address] [place] [address] RBC Urine 0-2 Normal 0-2 [facility] Comment on above: Order Comment: For i ndwelling catheters, specimen collection is acceptable on catheter day 1 and 2 only. ? Performed By: #### U [id number] #### [facility] (DEFAULT) [address] [address] Specific [place] Urine > High 1.001 -1.03 5 [facility] Comment on above: Order Comment: For i ndwelling catheters, specimen collection is acceptable on catheter day 1 and 2 only. ? Performed By: #### U [id number] #### [facility] (DEFAULT) [address] [address] Squamous/Epithelial Cells, Urine 0-2/hpf Normal 0-2/hpf, 3-5/hpf = 1+ [facility] Comment on above: Order Comment: For i ndwelling catheters, specimen collection is acceptable on catheter day 1 and 2 only. ? Performed By: #### U [id number] #### [facility] (DEFAULT) [address] [address] Urobilinogen Urine 1.0 E.U./dL Normal 0.2 E.U/dL, 1.0 E.U/dL [facility] Comment on above: Order Comment: For i ndwelling catheters, specimen collection is acceptable on catheter day 1 and 2 only. ? Performed By: #### U [id number] #### [facility] (DEFAULT) [address] [place] [address] WBC Urine 0 - 5 Normal 0 - 5 [facility] Comment on above: Order Comment: For i ndwelling catheters, specimen collection is acceptable on catheter day 1 and 2 only. ? Performed By: #### U [id number] #### [facility] (DEFAULT) [address] [address] URINE DRUG SCREEN 11-08 Amphetamine+Methamphetam ine Screen (U) [Mass/Vol] Not detected Cutoff: 500 ng/mL [facility] Barbiturates Ql (U) Not detected Cutoff: 200 ng/mL [facility] Benzodiazepines Ql (U) Not detected Cutof f: 200 ng/mL [facility] Buprenorphine Ql (U) Not detected Cutoff: 5 ng/mL [facility] Cannabinoids Screen Ql (U) Not detected Cutoff: 50 ng/mL [facility] Cocaine Ql (U) Not detected Cutoff: 150 ng/mL [facility] fentaNYL Ql (U) Not detected Cutoff: 1 ng/mL [facility] Interpretation and review of laboratory results Normal [facility] Methadone Ql (U) Not detected Cutoff: 300 ng/mL [facility] Opiates Ql (U) Not detected Cutoff: 300 ng/mL [facility] oxyCODONE Ql (U) Not detected Cutoff: 100 ng/mL [facility] For medical purposes only. Positive results are unconfirmed unless otherwise noted. [facility] Amphetamine/Methamphetam ine Not detected Normal Cutoff: 500 ng/mL [facility] Comment on above: Order Comment: For m edical purposes only. Positive results are unconfirmed unless otherwise noted. Performed By: #### L IPDR, HFP, CHM7 #### [facility] (DEFAULT) [address] [address] Barbiturates Not detected Normal Cutoff: 200 ng/mL [facility] Comment on above: Order Comment: For m edical purposes only. Positive results are unconfirmed unless otherwise noted. Performed By: #### L IPDR, HFP, CHM7 #### [facility] (DEFAULT) [address] [place] [address] Benzodiazepines Not detected Normal Cutoff: 200 ng/mL [facility] Comment on above: Order Comment: For m edical purposes only. Positive results are unconfirmed unless otherwise noted. Performed By: #### L IPDR, HFP, CHM7 #### [facility] (DEFAULT) [address] [place] [address] Buprenorphine Not detected Normal Cutoff: 5 ng/mL [facility] Comment on above: Order Comment: For edical purposes only. Positive results are unconfirmed unless otherwise noted. Performed By: #### L IPDR, HFP, CHM7 #### [facility] (DEFAULT) [address] [address] Cannabinoids Screen Ql (U) Not detected Normal Cutoff: 50 ng/mL [facility] Comment on above: Order Comment: For m edical purposes only. Positive results are unconfirmed unless otherwise noted. Performed By: #### L IPDR, HFP, CHM7 #### [facility] (DEFAULT) [address] [address] Cocaine Not detected Normal Cutoff: 150 ng/mL [facility] Comment on above: Order Comment: For edical purposes only. Positive results are unconfirmed unless otherwise noted. Performed By: #### L IPDR, HFP, CHM7 #### [facility] (DEFAULT) [address] [address] Fentanyl Not detected Normal Cutoff: 1 ng/mL [facility] Comment on above: Order Comment: For edical purposes only. Positive results are unconfirmed unless otherwise noted. Performed By: #### L IPDR, HFP, CHM7 #### [facility] (DEFAULT) [address] [address] Methadone Not detected Normal Cutoff: 300 ng/mL [facility] Comment on above: Order Comment: For m edical purposes only. Positive results are unconfirmed unless otherwise noted. Performed By: #### L IPDR, HFP, CHM7 #### [facility] (DEFAULT) [address] [address] Opiates Not detected Normal Cutoff: 300 ng/mL [facility] Comment on above: Order Comment: For edical purposes only. Positive results are unconfirmed unless otherwise noted. Performed By: #### L IPDR, HFP, CHM7 #### [facility] (DEFAULT) [address] [address] Oxycodone Not detected Normal Cutoff: 100 ng/mL [facility] Comment on above: Order Comment: For m edical purposes only. Positive results are unconfirmed unless otherwise noted. Performed By: #### L IPDR, HFP, CHM7 #### [facility] (DEFAULT) [address] [place] [address] White blood cell (WBC) count Ordered By: Phillip Maldonado on 11-08-2024 WBC (Bld) [#/Vol] 9.1 10*3/uL 4.4-11.0 [facility] aPTT Coag (PPP) [Time]Ordere d By: Phillip Maldonado on 11-08-2024 aPTT Coag (Bld) [Time] 34.5 s 24.1-36.2 [facility] Plastic Surgery Visit Report on 09-30-2024 Plastic Surgery Visit Report Normal [facility] SCRN MAMM (CAD)W/STEPHANIE BILATo n 09-22-2024 SCRN MAMM (CAD)W/STEPHANIE BILAT Normal [facility] International normalized rat io (INR) calculationOrdered By: Alejandro Rosales on 09-21-2024 INR Coag (Bld) [Relative time] 2.7 {INR} [facility] Plastic Surgery Visit Report on 09-21-2024 Plastic Surgery Visit Report Normal [facility] Prothrombin Time w/INRon INR Coag (PPP) [Relative time] 2.7 {INR} Normal [facility] Comment on above: Order Comment: Inter face Comments:Standing Order once per month and PRN for out of rangefollow upOrder Date: 09/21/24Order Info: [id number] - PTComments: Standing Order once per month and PRN for out of range follow up Performed By: #### L 300.8625 ####[facility] [address] [place], [place], [id number] PT Coag (PPP) [Time] 29.2 s High 11.7-14.9 [facility] Comment on above: Order Comment: Inter face Comments:Standing Order once per month and PRN for out of rangefollow upOrder Date: 09/21/24Order Info: [id number] - PTComments: Standing Order once per month and PRN for out of range follow up Performed By: #### L 300.3900 ####[facility] [address] [place], [place], [address] Prothrombin timeOrdered By: Alejandro Rosales on 09-21-2024 PT Coag (PPP) [Time] 29.2 s High 11.7-14.9 [facility] International normalized rat io (INR) calculationOrdered By: Alejandro Rosales on 09-17-2024 INR Coag (Bld) [Relative time] 1.8 {INR} [facility] Prothrombin Time w/INRon INR Coag (PPP) [Relative time] 1.8 {INR} Normal [facility] Comment on above: Order Comment: Order Date: 09/17/24Order Info: 6301-6 - PT Performed By: #### L 300.3900 ####[facility] [address] [place], [address] PT Coag (PPP) [Time] 21.7 s High 11.7-14.9 [facility] Comment on above: Order Comment: Order Date: 09/17/24Order Info: 6301-6 - PT Performed By: #### L 300.3900 ####[facility] [address] [place], [place], [address] Prothrombin timeOrdered By: Alejandro Rosales on 09-17-2024 PT Coag (PPP) [Time] 21.7 s High 11.7-14.9 [facility] ANTINUCLEAR ANTIBODIES DIREC Ton 09-15-2024 CHAU,DIRECT Negative Normal Negative [facility] Comment on above: Order Comment: Order Date: 09/14/24Order Info: [id number] - CHAU Result Comment: Perf ormed at: [facility] [address] [id number] Director: Taiwo Quintero PhD, Phone: [phone] Performed By: #### L 3100.3450, L3100.5475, L505.7010 ####[facility] [address] [place], [address] Protein Electroph, Son 09-15 Albumin [Mass/Vol] 3.1 g/dL Normal 2.9-4.4 [facility] Comment on above: Order Comment: Order Date: 09/14/24Order Info: 0060-1 - PROEL Performed By: #### L 3100.3450, L3100.5475, L505.7010 ####[facility] [address] [place], [address] Albumin/Globulin [Mass ratio] 0.8 {ratio} Normal 0.7-1.7 [facility] Comment on above: Order Comment: Order Date: 09/14/24Order Info: 0060-1 - PROEL Performed By: #### L 3100.3450, L3100.5475, L505.7010 ####[facility] [address] [place], [address] ALPHA-1 GLOBUL 0.3 g/dL Normal 0.0-0.4 [facility] Comment on above: Order Comment: Order Date: 09/14/24Order Info: 0060-1 - PROEL Performed By: #### L 3100.3450, L3100.5475, L505.7010 ####[facility] [address] [place], [address] ALPHA-2 GLOBUL 0.8 g/dL Normal 0.4-1.0 [facility] Comment on above: Order Comment: Order Date: 09/14/24Order Info: 0060-1 - PROEL Performed By: #### L 3100.3450, L3100.5475, L505.7010 ####[facility] [address] [place], [address] BETA GLOBULIN 1.2 g/dL Normal 0.7-1.3 [facility] Comment on above: Order Comment: Order Date: 09/14/24Order Info: 0060-1 - PROEL Performed By: #### L 3100.3450, L3100.5475, L505.7010 ####[facility] [address] [place], [address] GAMMA GLOBULIN 1.4 g/dL Normal 0.4-1.8 [facility] Comment on above: Order Comment: Order Date: 09/14/24Order Info: 0060-1 - PROEL Performed By: #### L 3100.3450, L3100.5475, L505.7010 ####[facility] [address] [place], [address] Globulin (S) [Mass/Vol] 3.7 g/dL Normal 2.2-3.9 [facility] Comment on above: Order Comment: Order Date: 09/14/24Order Info: 0060-1 - PROEL Performed By: #### L 3100.3450, L3100.5475, L505.7010 ####[facility] [address] [place], [address] INTERPRETATION Comment Normal . [facility] Comment on above: Order Comment: Order Date: 09/14/24Order Info: 0060-1 - PROEL Result Comment: Prot ein electrophoresis scan will follow via computer,mail, or motel front desk attendant delivery. Performed By: #### L 3100.3450, L3100.5475, L505.7010 ####[facility] [address] [place], [address] M-SPIKE Not Observed Normal Not Observed [facility] Comment on above: Order Comment: Order Date: 09/14/24Order Info: 0060-1 - PROEL Performed By: #### L 3100.3450, L3100.5475, L505.7010 ####[facility] [address] [place], [address] NOTE: Comment Normal . [facility] Comment on above: Order Comment: Order Date: 09/14/24Order Info: 0060-1 - PROEL Result Comment: The SPE pattern appears unremarkable. Evidence ofmonoclonal protein is not apparent.Performed at: [facility] [address] [id number] Director: Taiwo Quintero PhD, Phone: [phone] Performed By: #### L 3100.3450, L3059.7657, L567.3382 ####[facility] [address] [place], [place], [address] Protein [Mass/Vol] 6.8 g/dL Normal 6.0-8.5 [facility] Comment on above: Order Comment: Order Date: 09/14/24Order Info: 0060-1 - PROEL Performed By: #### L 3100.3450, L3337.3330, L533.7093 ####[facility] [address] [place], [place], [address] CHAU serumOrdered By: Alejandro varela on 09-14-2024 Anti-Nuclear Antibody Screen Negative Negative [facility] Comment on above: Performed at: [facility] [address] [id number] Director: Taiwo Quintero PhD, Phone: [phone] Absolute lymphocyte countOrd ered By: Alejandro Rosales on 09-14-2024 Lymphocytes Auto (Unsp spec) [#/Vol] 1.72 10*3/uL 0.83-4.51 [facility] Absolute neutrophil countOrd ered By: Alejandro Rosales on 09-14-2024 Neutrophils (Bld) [#/Vol] 5.2 10*3/uL 2.0-7.7 [facility] Addendum DocumentOrdered By: Alejandro Rosales on 09-14-2024 Protein Electrophoresis Note Comment . [facility] Comment on above: The SPE pattern appe ars unremarkable. Evidence ofmonoclonal protein is not apparent.Performed at: [facility] [place], [place] [id number] Director: Taiwo Quintero PhD, Phone: [phone] Albumin Elph [Mass/Vol]Order ed By: Alejandro Rosales on 09-14-2024 Albumin [Mass/Vol] 3.1 g/dL 2.9-4.4 [facility] Albumin to globulin ratioOrd ered By: Alejandro Rosales on 09-14-2024 Albumin/Globulin [Mass ratio] 0.7 {ratio} Low 0.9-2.4 [facility] Albumin/Globulin Elph [Mass ratio]Ordered By: Alejandro Rosales on 09-14-2024 Albumin/Globulin (PEP) 0.8 0.7-1.7 [facility] Cmptc-0-tafipibm measurement by protein electrophoresisOrdered By: Alejandro Rosales on 09-14-2024 Dfjws-5-Jctergvsi 0.3 g/dL 0.0-0.4 [facility] Hadru-6-aabfyqsd measurement by protein electrophoresisOrdered By: Alejandro Rosales on 09-14-2024 Lxnta-6-Cfzkehedd 0.8 g/dL 0.4-1.0 [facility] Automated lymphocyte count a s percentage of total leukocytesOrdered By: Alejandro Rosales on 09-14-2024 Lymphocytes/100 WBC Auto (Unsp spec) 22.3 % 19-41 [facility] Basophil percentageOrdered B y: Alejandro Rosales on 09-14-2024 Basophils/100 WBC (Bld) 0.5 % 0-1 [facility] Beta globulin Elph [Mass/Vol ]Ordered By: Alejandro Rosales on 09-14-2024 Beta Globulins 1.2 g/dL 0.7-1.3 [facility] Bilirubin, totalOrdered By: Alejandro Rosales on 09-14-2024 Bilirubin [Mass/Vol] 0.80 mg/dL 0.20-1.00 [facility] Comment on above: For patients on eltr ombopag therapy, use of Dimension Emily TBIL is not recommended. Blood urea nitrogen (BUN)/cr eatinine ratioOrdered By: Alejandro Rosales on 09-14-2024 Urea nitrogen/Creatinine [Mass ratio] 11.3 mg/mg 10-20 [facility] C-reactive protein measureme nt by high sensitivity methodOrdered By: Alejandro Rosales on 09-14-2024 C-Reactive Protein Extended Range 30.60 mg/L High 0.0-3.0 [facility] Comment on above: C-Reactive Protein ( CRP) provides useful information for thediagnosis, therapy and monitoring of inflammatory processesand associated diseases. For the evaluation of Relative Riskfor Cardiovascular Disease, a High Sensitivity CRP (HSCRP)should be ordered. C-reactive protein measurement by high sensitivity method 30.60 mg/L High 0.0-3.0 [facility] Comment on above: C-Reactive Protein ( CRP) provides useful information for thediagnosis, therapy and monitoring of inflammatory processesand associated diseases. For the evaluation of Relative Riskfor Cardiovascular Disease, a High Sensitivity CRP (HSCRP)should be ordered. CBC W/Diff, Automatedon 09-04 Absolute Lymph 1.72 X10 3/uL Normal 0.83-4.51 [facility] Comment on above: Order Comment: Order Date: 09/14/24Order Info: 0184-1 - CBCDOrder Info: [id number] - SED Performed By: #### L 100.0100, L501.1400, L500.4050, L501.6710, L101.9900 ####[facility] [address] [place], [address] Absolute Neut 5.2 X10 3/uL Normal 2.0-7.7 [facility] Comment on above: Order Comment: Order Date: 09/14/24Order Info: [id number] - CBCDOrder Info: [id number] - SED Performed By: #### L 100.0100, L501.1400, L500.4050, L501.6710, L101.9900 ####[facility] [address] [place], [address] Basophils/100 WBC (Bld) 0.5 % Normal 0-1 [facility] Comment on above: Order Comment: Order Date: 09/14/24Order Info: 0184-1 - CBCDOrder Info: [id number] - SED Performed By: #### L 100.0100, L501.1400, L500.4050, L501.6710, L101.9900 ####[facility] [address] [place], [address] Eosinophils/100 WBC (Bld) 1.3 % Normal 0-5 [facility] Comment on above: Order Comment: Order Date: 09/14/24Order Info: [id number] - CBCDOrder Info: [id number] - SED Performed By: #### L 100.0100, L501.1400, L500.4050, L501.6710, L101.9900 ####[facility] [address] [place], [address] Erythrocyte distribution width (RBC) [Ratio] 15.0 % High 11.6-14.6 [facility] Comment on above: Order Comment: Order Date: 09/14/24Order Info: [id number] - CBCDOrder Info: [id number] - SED Performed By: #### L 100.0100, L501.1400, L500.4050, L501.6710, L101.9900 ####[facility] [address] [place], [address] Hematocrit (Bld) [Volume fraction] 46.8 % Normal 37-47 [facility] Comment on above: Order Comment: Order Date: 09/14/24Order Info: [id number] - CBCDOrder Info: 18511-1 - SED Performed By: #### L 100.0100, L501.1400, L500.4050, L501.6710, L101.9900 ####[facility] [address] [place], [address] Hemoglobin (Bld) [Mass/Vol] 15.1 g/dL High 12.0-15.0 [facility] Comment on above: Order Comment: Order Date: 09/14/24Order Info: [id number] - CBCDOrder Info: [id number] - SED Performed By: #### L 100.0100, L501.1400, L500.4050, L501.6710, L101.9900 ####[facility] [address] [place], [address] IG% 0.300 Normal 0.0-0.9 [facility] Comment on above: Order Comment: Order Date: 09/14/24Order Info: 183- - CBCDOrder Info: [id number] - SED Result Comment: IG% - Immature Granulocytes (promyelocytes, myelocytes andmetamyelocytes) > 1% indicates that a LEFT SHIFT is Present. Performed By: #### L 100.0100, L501.1400, L500.4050, L501.6710, L101.9900 ####[facility] [address] [place], [address] Lymphocytes/100 WBC (Bld) 22.3 % Normal 19-41 [facility] Comment on above: Order Comment: Order Date: 09/14/24Order Info: 183-08 - CBCDOrder Info: [id number] - SED Performed By: #### L 100.0100, L501.1400, L500.4050, L501.6710, L101.9900 ####[facility] [address] [place], [address] MCH (RBC) [Entitic mass] 28.0 pg Normal 27.0-32.0 [facility] Comment on above: Order Comment: Order Date: 09/14/24Order Info: 183-08 - CBCDOrder Info: [id number] - SED Performed By: #### L 100.0100, L501.1400, L500.4050, L501.6710, L101.9900 ####[facility] [address] [place], [address] MCHC (RBC) [Mass/Vol] 32.3 g/dL Normal 32-[address] [facility] Comment on above: Order Comment: Order Date: 09/14/24Order Info: 183-08 - CBCDOrder Info: [id number] - SED Performed By: #### L 100.0100, L501.1400, L500.4050, L501.6710, L101.9900 ####[facility] [address] [place], [address] MCV (RBC) [Entitic vol] 86.7 fL Normal 81-99 [facility] Comment on above: Order Comment: Order Date: 09/14/24Order Info: [id number] - CBCDOrder Info: [id number] - SED Performed By: #### L 100.0100, L501.1400, L500.4050, L501.6710, L101.9900 ####[facility] [address] [place], [address] Monocytes/100 WBC (Bld) 8.2 % Normal 0-10 [facility] Comment on above: Order Comment: Order Date: 09/14/24Order Info: [id number] - CBCDOrder Info: [id number] - SED Performed By: #### L 100.0100, L501.1400, L500.4050, L501.6710, L101.9900 ####[facility] [address] [place], [address] Neutrophils/100 WBC (Bld) 67.4 % Normal 47-70 [facility] Comment on above: Order Comment: Order Date: 09/14/24Order Info: [id number] - CBCDOrder Info: [id number] - SED Performed By: #### L 100.0100, L501.1400, L500.4050, L501.6710, L101.9900 ####[facility] [address] [place], [address] Nucleated RBC (Bld) [#/Vol] 0 10*3/uL Normal 0-5 [facility] Comment on above: Order Comment: Order Date: 09/14/24Order Info: [id number] - CBCDOrder Info: [id number] - SED Performed By: #### L 100.0100, L501.1400, L500.4050, L501.6710, L101.9900 ####[facility] [address] [place], [address] Platelet mean volume (Bld) [Entitic vol] 10.5 fL Normal 6.2-12.0 [facility] Comment on above: Order Comment: Order Date: 09/14/24Order Info: 018- - CBCDOrder Info: [id number] - SED Performed By: #### L 100.0100, L501.1400, L500.4050, L501.6710, L101.9900 ####[facility] [address] [place], [address] Platelets (Bld) [#/Vol] 201 10*3/uL Normal 150-450 [facility] Comment on above: Order Comment: Order Date: 09/14/24Order Info: 018- - CBCDOrder Info: [id number] - SED Performed By: #### L 100.0100, L501.1400, L500.4050, L501.6710, L101.9900 ####[facility] [address] [place], [address] RBC (Bld) [#/Vol] 5.40 10*6/uL Normal 4.2-5.4 [facility] Comment on above: Order Comment: Order Date: 09/14/24Order Info: 018- - CBCDOrder Info: [id number] - SED Performed By: #### L 100.0100, L501.1400, L500.4050, L501.6710, L101.9900 ####[facility] [address] [place], [address] RDW SD 47.6 fl High 35.1-43.9 [facility] Comment on above: Order Comment: Order Date: 09/14/24Order Info: 018- - CBCDOrder Info: [id number] - SED Performed By: #### L 100.0100, L501.1400, L500.4050, L501.6710, L101.9900 ####[facility] [address] [place], [address] WBC (Bld) [#/Vol] 7.7 10*3/uL Normal 4.4-11.0 [facility] Comment on above: Order Comment: Order Date: 09/14/24Order Info: [id number] - CBCDOrder Info: [id number] - SED Performed By: #### L 100.0100, L501.1400, L500.4050, L501.6710, L101.9900 ####[facility] [address] [place], [address] CRPon 09-14-2024 C-REACTIVE PROT 30.60 mg/L High 0.0-3.0 [facility] Comment on above: Order Comment: Order Date: 09/14/24Order Info: [id number] - CMPOrder Info: [id number] - URICOrder Info: [id number] - CRPOrder Info: [id number] - RA Result Comment: C-Re active Protein (CRP) provides useful information for thediagnosis, therapy and monitoring of inflammatory processesand associated diseases. For the evaluation of Relative Riskfor Cardiovascular Disease, a High Sensitivity CRP (HSCRP)should be ordered. Performed By: #### L 100.0100, L501.1400, L500.4050, L501.6710, L101.9900 ####[facility] [address] [place], [address] Carbon dioxide measurementOr dered By: Alejandro Rosales on 09-14-2024 CO2 [Moles/Vol] 27.0 mmol/L 21.0-32.0 [facility] Chloride measurementOrdered By: Alejandro Rosales on 09-14-2024 Chloride [Moles/Vol] 105 mmol/L 98-107 [facility] Comprehensive Metabolic Prof ilon 09-14-2024 Albumin [Mass/Vol] 3.2 g/dL Normal 3.2-5.0 [facility] Comment on above: Order Comment: Order Date: 09/14/24Order Info: 86- - CMPOrder Info: [id number] - URICOrder Info: [id number] - CRPOrder Info: [id number] - RA Performed By: #### L 100.0100, L501.1400, L500.4050, L501.6710, L101.9900 ####[facility] [address] [place], [address] Albumin/Globulin [Mass ratio] 0.7 {ratio} Low 0.9-2.4 [facility] Comment on above: Order Comment: Order Date: 09/14/24Order Info: 785- - CMPOrder Info: [id number] - URICOrder Info: [id number] - CRPOrder Info: [id number] - RA Performed By: #### L 100.0100, L501.1400, L500.4050, L501.6710, L101.9900 ####[facility] [address] [place], [address] ALK P 104 U/L Normal 45-117 [facility] Comment on above: Order Comment: Order Date: 09/14/24Order Info: 785- - CMPOrder Info: [id number] - URICOrder Info: [id number] - CRPOrder Info: [id number] - RA Performed By: #### L 100.0100, L501.1400, L500.4050, L501.6710, L101.9900 ####[facility] [address] [place], [address] ALT [Catalytic activity/Vol] 15 U/L Normal 13-56 [facility] Comment on above: Order Comment: Order Date: 09/14/24Order Info: 86-1 - CMPOrder Info: [id number] - URICOrder Info: [id number] - CRPOrder Info: [id number] - RA Performed By: #### L 100.0100, L501.1400, L500.4050, L501.6710, L101.9900 ####[facility] [address] [place], [address] AST [Catalytic activity/Vol] 14 U/L Low 15-37 [facility] Comment on above: Order Comment: Order Date: 09/14/24Order Info: 86-1 - CMPOrder Info: [id number] - URICOrder Info: [id number] - CRPOrder Info: [id number] - RA Performed By: #### L 100.0100, L501.1400, L500.4050, L501.6710, L101.9900 ####[facility] [address] [place], [place], [address] Bilirubin [Mass/Vol] 0.80 mg/dL Normal 0.20-1.00 [facility] Comment on above: Order Comment: Order Date: 09/14/24Order Info: 86-1 - CMPOrder Info: [id number] - URICOrder Info: [id number] - CRPOrder Info: [id number] - RA Result Comment: For patients on eltrombopag therapy, use of Dimension Emily TBIL is not recommended. Performed By: #### L 100.0100, L501.1400, L500.4050, L501.6710, L101.9900 ####[facility] [address] [place], [place], [address] BUN/CRE 11.3 RATIO Normal 10-20 [facility] Comment on above: Order Comment: Order Date: 09/14/24Order Info: 86-1 - CMPOrder Info: [id number] - URICOrder Info: [id number] - CRPOrder Info: [id number] - RA Performed By: #### L 100.0100, L501.1400, L500.4050, L501.6710, L101.9900 ####[facility] [address] [place], [place], [address] CA,Total 9.3 mg/dL Normal 8.5-10.1 [facility] Comment on above: Order Comment: Order Date: 09/14/24Order Info: 86-1 - CMPOrder Info: [id number] - URICOrder Info: [id number] - CRPOrder Info: [id number] - RA Performed By: #### L 100.0100, L501.1400, L500.4050, L501.6710, L101.9900 ####[facility] [address] [place], [address] Chloride [Moles/Vol] 105 mmol/L Normal 98-107 [facility] Comment on above: Order Comment: Order Date: 09/14/24Order Info: [id number] - CMPOrder Info: 4 - URICOrder Info: [id number] - CRPOrder Info: [id number] - RA Performed By: #### L 100.0100, L501.1400, L500.4050, L501.6710, L101.9900 ####[facility] [address] [place], [address] CO2 [Moles/Vol] 27.0 mmol/L Normal 21.0-32.0 [facility] Comment on above: Order Comment: Order Date: 09/14/24Order Info: 785-1 - CMPOrder Info: [id number] - URICOrder Info: [id number] - CRPOrder Info: [id number] - RA Performed By: #### L 100.0100, L501.1400, L500.4050, L501.6710, L101.9900 ####[facility] [address] [place], [address] Creatinine [Mass/Vol] 0.97 mg/dL Normal 0.55-1.[address] [facility] Comment on above: Order Comment: Order Date: 09/14/24Order Info: 86-1 - CMPOrder Info: [id number] - URICOrder Info: [id number] - CRPOrder Info: [id number] - RA Result Comment: The validity of the calculated GFR GFRAA in patients over70 years has not been determined. Clinical correlation isessential. Performed By: #### L 100.0100, L501.1400, L500.4050, L501.6710, L101.9900 ####[facility] [address] [place], [address] EST GFR - AA 72 mL/min Normal >60 [facility] Comment on above: Order Comment: Order Date: 09/14/24Order Info: 86-1 - CMPOrder Info: 4-1 - URICOrder Info: [id number] - CRPOrder Info: [id number] - RA Result Comment: Afri can Bruneian GFR Calc Performed By: #### L 100.0100, L501.1400, L500.4050, L501.6710, L101.9900 ####[facility] [address] [place], [address] GAP 6 Normal 5-15 [facility] Comment on above: Order Comment: Order Date: 09/14/24Order Info: 785-1 - CMPOrder Info: [id number] - URICOrder Info: [id number] - CRPOrder Info: [id number] - RA Performed By: #### L 100.0100, L501.1400, L500.4050, L501.6710, L101.9900 ####[facility] [address] [place], [address] GFR/1.73 sq M.predicted among non-blacks MDRD (S/P/Bld) [Vol rate/Area] 60 mL/min/{1.73_m2} Normal >60 [facility] Comment on above: Order Comment: Order Date: 09/14/24Order Info: 785-1 - CMPOrder Info: 4-1 - URICOrder Info: [id number] - CRPOrder Info: [id number] - RA Result Comment: Non- GFR Calc Performed By: #### L 100.0100, L501.1400, L500.4050, L501.6710, L101.9900 ####[facility] [address] [place], [address] Globulin (S) [Mass/Vol] 4.4 g/dL High 2.2-4.2 [facility] Comment on above: Order Comment: Order Date: 09/14/24Order Info: 0786-1 - CMPOrder Info: [id number] - URICOrder Info: [id number] - CRPOrder Info: [id number] - RA Performed By: #### L 100.0100, L501.1400, L500.4050, L501.6710, L101.9900 ####[facility] [address] [place], [address] Glucose [Mass/Vol] 132 mg/dL High 74-106 [facility] Comment on above: Order Comment: Order Date: 09/14/24Order Info: 86-1 - CMPOrder Info: 1 - URICOrder Info: [id number] - CRPOrder Info: [id number] - RA Result Comment: Fast ing Glucose result greater than or equal to 126 mg/dLsuggests DIABETES MELLITUS per A.D.A. criteria. Performed By: #### L 100.0100, L501.1400, L500.4050, L501.6710, L101.9900 ####[facility] [address] [place], [address] Potassium [Moles/Vol] 3.6 mmol/L Normal 3.5-5.[address] [facility] Comment on above: Order Comment: Order Date: 09/14/24Order Info: 86-1 - CMPOrder Info: [id number] - URICOrder Info: [id number] - CRPOrder Info: [id number] - RA Performed By: #### L 100.0100, L501.1400, L500.4050, L501.6710, L101.9900 ####[facility] [address] [place], [address] Sodium [Moles/Vol] 138 mmol/L Normal 136-145 [facility] Comment on above: Order Comment: Order Date: 09/14/24Order Info: [id number] - CMPOrder Info: 1 - URICOrder Info: [id number] - CRPOrder Info: [id number] - RA Performed By: #### L 100.0100, L501.1400, L500.4050, L501.6710, L101.9900 ####[facility] [address] [place], [address] T PROT 7.6 g/dL Normal 6.4-8.2 [facility] Comment on above: Order Comment: Order Date: 09/14/24Order Info: [id number] - CMPOrder Info: [id number] - URICOrder Info: [id number] - CRPOrder Info: [id number] - RA Performed By: #### L 100.0100, L501.1400, L500.4050, L501.6710, L101.9900 ####[facility] [address] [place], [address] Urea nitrogen [Mass/Vol] 11 mg/dL Normal 7-18 [facility] Comment on above: Order Comment: Order Date: 09/14/24Order Info: [id number] - CMPOrder Info: [id number] - URICOrder Info: [id number] - CRPOrder Info: [id number] - RA Performed By: #### L 100.0100, L501.1400, L500.4050, L501.6710, L101.9900 ####[facility] [address] [place], [address] Creatinine, Urine (random)on 09-14-2024 UR CREAT 74.70 mg/dL Normal NO RANGE EST. [facility] Comment on above: Order Comment: Order Date: 09/14/24Order Info: [id number] - CREATUOrder Info: [id number] - ALBU Performed By: #### L 502.0500, L501.1200 ####[facility] [address] [place], [address] Eosinophil percentageOrdered By: Alejandro Rosales on 09-14-2024 Eosinophils/100 WBC (Bld) 1.3 % 0-5 [facility] Erythrocyte Sed Rateon 02-11 -2025 SED RATE 46 mm/hr High 0-30 [facility] Comment on above: Order Comment: Order Date: 09/14/24Order Info: [id number] - CBCDOrder Info: [id number] - SED Performed By: #### L 100.0100, L501.1400, L500.4050, L501.6710, L101.9900 ####[facility] [address] [place], [address] Erythrocyte distribution wid th (RBC) [Ratio]Ordered By: Alejandro Rosales on 09-14-2024 Erythrocyte distribution width (RBC) [Entitic vol] 47.6 fL High 35.1-43.9 [facility] Erythrocyte distribution wid th ratioOrdered By: Alejandro Rosales on 09-14-2024 Erythrocyte distribution width (RBC) [Ratio] 15.0 % High 11.6-14.6 [facility] Erythrocyte distribution wid th standard deviationOrdered By: Alejandro Rosales on 09-14-2024 Erythrocyte distribution width (RBC) [Ratio] 47.6 fl High 35.1-43.9 [facility] Erythrocyte sedimentation ra teOrdered By: Alejandro Rosales on 09-14-2024 ESR (Bld) [Velocity] 46 mm/h High 0-30 [facility] Estimated glomerular filtrat ion rate (GFR) AmericanOrdered By: Alejandro Rosales on 09-14-2024 Estimated GFR (MDRD) Amer 72 mL/min >60 [facility] Comment on above: GFR Calc Finger(s) Min 2 Viewson 09-04 Finger(s) Min 2 Views Normal [facility] Gamma globulin measurement b y protein electrophoresisOrdered By: Alejandro Rosales on 09-14-2024 Gamma Globulins 1.4 g/dL 0.4-1.8 [facility] Globulin (S) [Mass/Vol]Order ed By: Alejandro Rosales on 09-14-2024 Globulin (PEP) 3.7 g/dL 2.2-3.9 [facility] Glomerular filtration rate ( GFR) estimationOrdered By: Alejandro Rosales on 09-14-2024 Estimated GFR (MDRD) Non-Af Amer 60 mL/min >60 [facility] Comment on above: Non- GFR Calc GFR/1.73 sq M.predicted among non-blacks MDRD (S/P/Bld) [Vol rate/Area] 60 mL/min/{1.73_m2} >60 [facility] Comment on above: Non- GFR Calc Glucose measurementOrdered B y: Alejandro Rosales on 09-14-2024 Glucose [Mass/Vol] 132 mg/dL High 74-106 [facility] Comment on above: Fasting Glucose resu lt greater than or equal to 126 mg/dL suggests DIABETES MELLITUS per A.D.A. criteria. Hematocrit Auto (Bld) [Volum e fraction]Ordered By: Alejandro Rosales on 09-14-2024 Hematocrit (Bld) [Volume fraction] 46.8 % 37-47 [facility] Hemoglobin measurementOrdere d By: Alejandro Rosales on 09-14-2024 Hemoglobin (Bld) [Mass/Vol] 15.1 g/dL High 12.0-15.0 [facility] Immature granulocytes/100 WB C Auto (Bld)Ordered By: Alejandro Rosales on 09-14-2024 Immature granulocytes/100 WBC (Bld) 0.300 % 0.0-0.9 [facility] Comment on above: IG% - Immature Granu locytes (promyelocytes, myelocytes and metamyelocytes) > 1% indicates that a LEFT SHIFT is Present. Laboratory - Chemistry and C hemistry - challengeOrdered By: Alejandro Rosales on 09-14-2024 AST [Catalytic activity/Vol] 14 U/L Low 15-37 [facility] Lymphocytes Auto (Unsp spec) [#/Vol]Ordered By: Alejandro Rosales on 09-14-2024 Lymphocytes (Bld) [#/Vol] 1.72 10*3/uL 0.83-4.51 [facility] Lymphocytes/100 WBC Auto (Un sp spec)Ordered By: Alejandro Rosales on 09-14-2024 Lymphocytes/100 WBC (Bld) 22.3 % 19-41 [facility] MCV (mean corpuscular volume ) determinationOrdered By: Alejandro Rosales on 09-14-2024 MCV (RBC) [Entitic vol] 86.7 fL 81-99 [facility] Mean corpuscular hemoglobin (MCH) determinationOrdered By: Alejandro Rosales on 09-14-2024 MCH (RBC) [Entitic mass] 28.0 pg 27.0-32.0 [facility] Mean corpuscular hemoglobin concentration (MCHC) determinationOrdered By: Alejandro Roslaes on 09-14-2024 MCHC (RBC) [Mass/Vol] 32.3 g/dL 32-[address] [facility] Mean platelet volume determi nationOrdered By: Alejandor Rosales on 09-14-2024 Platelet mean volume (Bld) [Entitic vol] 10.5 fL 6.2-12.0 [facility] Microalbumin,Random Urineon 09-14-2024 MICROALBUMIN,UR 73.4 mg/L Normal NO RANGE EST. [facility] Comment on above: Order Comment: Order Date: 09/14/24Order Info: [id number] - CREATUOrder Info: [id number] - ALBU Performed By: #### L 502.0500, L501.1200 ####[facility] [address] [place], [address] Monocyte percentageOrdered B y: Alejandro Rosales on 09-14-2024 Monocytes/100 WBC (Bld) 8.2 % 0-10 [facility] Neutrophil percentageOrdered By: Alejandro Rosales on 09-14-2024 Neutrophils/100 WBC (Bld) 67.4 % 47-70 [facility] No Panel InformationOrdered By: Alejandro Rosales on 09-14-2024 Addendum Document Comment . [facility] Comment on above: The SPE pattern appe ars unremarkable. Evidence ofmonoclonal protein is not apparent.Performed at: - [address] [id number] Director: Taiwo Quintero PhD, Phone: [phone] Nucleated red blood cell per centageOrdered By: Alejandro Rosales on 09-14-2024 Nucleated RBC/100 WBC (Bld) [Ratio] 0 % 0-5 [facility] Platelet countOrdered By: Ike Rosales on 09-14-2024 Platelets (Bld) [#/Vol] 201 10*3/uL 150-450 [facility] Potassium measurementOrdered By: Alejandro Rosales on 09-14-2024 Potassium [Moles/Vol] 3.6 mmol/L 3.5-5.[address] [facility] Protein Fractions Elph [Inte rp]Ordered By: Alejandro Rosales on 09-14-2024 Protein Electrophoresis Interpret Comment . [facility] Comment on above: Protein electrophore sis scan will follow via computer,mail, or motel front desk attendant delivery. Protein Fractions [Interp] Comment . [facility] Comment on above: Protein electrophore sis scan will follow via computer,mail, or motel front desk attendant delivery. Protein.monoclonal Elph [Mas s/Vol]Ordered By: Alejandro Rosales on 09-14-2024 Protein Electrophoresis M-Carlos Not Observed g/dL Not Observed [facility] RBC Auto (Bld) [#/Vol]Ordere d By: Alejandro Rosales on 09-14-2024 RBC (Bld) [#/Vol] 5.40 10*6/uL 4.2-5.4 [facility] Random urine microalbumin me asurementOrdered By: Alejandro Rosales on 09-14-2024 Urine Random Microalbumin 73.4 mg/L NO RANGE EST. [facility] Rheumatoid Factoron 09-14-19 25 RHEUMATOID FAC < 10.0 Normal <15 [facility] Comment on above: Order Comment: Order Date: 09/14/24Order Info: [id number] - CMPOrder Info: [id number] - URICOrder Info: [id number] - CRPOrder Info: [id number] - RA Performed By: #### L 3100.3450, L3100.5475, L505.7010 ####[facility] [address] [place], [place], [id number] Rheumatoid factor measuremen tOrdered By: Alejandro Rosales on 09-14-2024 Rheumatoid Factor < 10.0 IU/mL <15 [facility] Serum albumin to globulin ra paula by protein electrophoresisOrdered By: Alejandro Rosales on 09-14-2024 Albumin/Globulin Elph [Mass ratio] 0.8 0.7-1.7 [facility] Serum anion gap measurementO rdered By: Alejandro Rosales on 09-14-2024 Anion gap [Moles/Vol] 6 mmol/L 5-[address] [facility] Serum globulin measurementOr dered By: Alejandro Rosales on 09-14-2024 Globulin (S) [Mass/Vol] 4.4 g/dL High 2.2-4.2 [facility] Serum globulin measurement ( mass/volume)Ordered By: Alejandro Rosales on 09-14-2024 Globulin (S) [Mass/Vol] 3.7 g/dL 2.2-3.9 [facility] Serum or plasma alanine herrera otransferase (ALT) measurementOrdered By: Alejandro Rosales on 09-14-2024 ALT [Catalytic activity/Vol] 15 U/L 13-56 [facility] Serum or plasma albumin bessie urement (mass/volume)Ordered By: Alejandro Rosales on 09-14-2024 Albumin [Mass/Vol] 3.2 g/dL 3.2-5.0 [facility] Serum or plasma alkaline gloria sphatase measurementOrdered By: Alejandro Rosales on 09-14-2024 ALP [Catalytic activity/Vol] 104 U/L 45-117 [facility] Serum or plasma beta globuli n measurement by electrophoresis (mass/volume)Ordered By: Alejandro Rosales on 09-14-2024 Beta globulin Elph [Mass/Vol] 1.2 g/dL 0.7-1.3 [facility] Serum or plasma calcium bessie urement (mass/volume)Ordered By: Alejandro Rosales on 09-14-2024 Calcium [Mass/Vol] 9.3 mg/dL 8.5-10.1 [facility] Serum or plasma creatinine m easurement (mass/volume)Ordered By: Alejandro Rosales on 09-14-2024 Creatinine [Mass/Vol] 0.97 mg/dL 0.55-1.[address] [facility] Comment on above: The validity of the calculated GFR & GFRAA in patients over 70 years has not been determined. Clinical correlation is essential. Serum or plasma protein bessie urement (mass/volume)Ordered By: Alejandro Rosales on 09-14-2024 Protein [Mass/Vol] 6.8 g/dL 6.0-8.5 [facility] Serum or plasma protein mono clonal measurement by electrophoresis (mass/volume)Ordered By: Alejandro Rosales on 09-14-2024 Protein.monoclonal Elph [Mass/Vol] Not Observed g/dL Not Observed [facility] Serum or plasma urea nitroge n measurement (mass/volume)Ordered By: Alejandro Rosales on 09-14-2024 Urea nitrogen [Mass/Vol] 11 mg/dL 7-18 [facility] Serum or plasma uric acid me asurement (mass/volume)Ordered By: Alejandro Rosales on 09-14-2024 Urate [Mass/Vol] 5.9 mg/dL 2.6-6.0 [facility] Comment on above: The drugs N-Acetylcy steine and Metamizole may falsely depress this assay. Sodium levelOrdered By: Alejandro Rosaels on 09-14-2024 Sodium [Moles/Vol] 138 mmol/L 136-145 [facility] Total proteinOrdered By: Kate Rosales on 09-14-2024 Protein [Mass/Vol] 7.6 g/dL 6.4-8.2 [facility] Uric Acidon 09-14-2024 URIC 5.9 mg/dL Normal 2.6-6.0 [facility] Comment on above: Order Comment: Order Date: 09/14/24Order Info: [id number] - CMPOrder Info: [id number] - URICOrder Info: [id number] - CRPOrder Info: [id number] - RA Result Comment: The drugs N-Acetylcysteine and Metamizole may falselydepress this assay. Performed By: #### L 100.0100, L501.1400, L500.4050, L501.6710, L101.9900 ####[facility] [address] [facility] [place], [address] Urine creatinine measurement (mass/volume)Ordered By: Alejandro Rosales on 09-14-2024 Creatinine (U) [Mass/Vol] 74.70 mg/dL NO RANGE EST. [facility] White blood cell (WBC) count Ordered By: Alejandro Rosales on 09-14-2024 WBC (Bld) [#/Vol] 7.7 10*3/uL 4.4-11.0 [facility] Basophil percentageOrdered B y: Dr. Robbins on 12-31-2022 Basophil percentage < 0.9 mg/dL 0.55-1.02 [facility] No Panel InformationOrdered By: Dr. Robbins on 12-31-2022 Bedside Estimated GFR (eGFR) > 60.0000 mL/min >60 [facility] Serum or plasma carcinoembry onic antigen measurement (mass/volume)Ordered By: Dr. Robbins on 12-17-2022 Carcinoembryonic Ag [Mass/Vol] 6.5 ng/mL 0.0-4.7 [facility] Comment on above: Nonsmokers <3.9 Smok ers <5.6[employer] Electrochemiluminescence Immunoassay(ECLIA)Values obtained with different assay methods or kitscannot be used interchangeably. Results cannot beinterpreted as absolute evidence of the presence orabsence of malignant disease.Performed at: [facility] [id number] [place] [id number] Director: Taiwo Quintero PhD, Phone: [phone] Basophil percentageOrdered B y: Dr. Robbins on 12-04-2022 Basophil percentage < 0.9 mg/dL 0.55-1.02 [facility] No Panel InformationOrdered By: Dr. Robbins on 12-04-2022 Bedside Estimated GFR (eGFR) > 60.0000 mL/min >60 [facility] Serum or plasma carcinoembry onic antigen measurement (mass/volume)Ordered By: Dr. Robbins on 11-20-2022 Carcinoembryonic Ag [Mass/Vol] 8.0 ng/mL 0.0-4.7 [facility] Comment on above: Nonsmokers <3.9 Smok ers <5.6[facility] Electrochemiluminescence Immunoassay(ECLIA)Values obtained with different assay methods or kitscannot be used interchangeably. Results cannot beinterpreted as absolute evidence of the presence orabsence of malignant disease.Performed at: [facility] [id number] [place], [place] [id number] Director: Taiwo Quintero PhD, Phone: [phone] Basophil percentageOrdered B y: Dr. Robbins on 10-16-2022 Chloride [Moles/Vol] 98 mmol/L 98-107 [facility] Glucose [Mass/Vol] 192 mg/dL High 74-106 [facility] Comment on above: Fasting Glucose resu lt greater than or equal to 126 mg/dL suggests DIABETES MELLITUS per A.D.A. criteria. Potassium [Moles/Vol] 3.6 mmol/L 3.5-5.[address] [facility] Sodium [Moles/Vol] 137 mmol/L 136-145 [facility] [employer] mix RAST testO rdered By: Marc Robbins on 10-16-2022 Anion gap [Moles/Vol] 7 mmol/L - [facility] Laboratory - Chemistry and C hemistry - challengeOrdered By: Dr. Robbins on 10-16-2022 CO2 [Moles/Vol] 32.0 mmol/L 21.0-32.0 [facility] Urea nitrogen/Creatinine [Mass ratio] 10.4 mg/mg 10-20 [facility] No Panel InformationOrdered By: Dr. Robbins on 10-16-2022 Estimated GFR (MDRD) Amer 74 mL/min >60 [facility] Comment on above: GFR Calc Estimated GFR (MDRD) Non-Af Amer 61 mL/min >60 [facility] Comment on above: Non- GFR Calc PotassiumOrdered By: Marc Robbins on 10-16-2022 Potassium [Mass/Vol] 192 mg/dL High 74-106 [facility] Comment on above: Fasting Glucose resu lt greater than or equal to 126 mg/dL suggests DIABETES MELLITUS per A.D.A. criteria. Potassium [Moles/Vol] 137 mmol/L 136-[address] [facility] Potassium [Moles/Vol] 98 mmol/L 98-[address] [facility] Serum or plasma calcium bessie urement (mass/volume)Ordered By: Dr. Robbins on 10-16-2022 Calcium [Mass/Vol] 9.3 mg/dL 8.5-10.1 [facility] Serum or plasma carcinoembry onic antigen measurement (mass/volume)Ordered By: Dr. Robbins on 10-16-2022 Carcinoembryonic Ag [Mass/Vol] 8.1 ng/mL 0.0-4.7 [facility] Comment on above: Nonsmokers <3.9 Smok ers <5.6[facility] [employer] Electrochemiluminescence Immunoassay(ECLIA)Values obtained with different assay methods or kitscannot be used interchangeably. Results cannot beinterpreted as absolute evidence of the presence orabsence of malignant disease.Performed at: [facility] [id number] Director: Taiwo Quintero PhD, Phone: [phone] Serum or plasma creatinine m easurement (mass/volume)Ordered By: Dr. Robbins on 10-16-2022 Creatinine [Mass/Vol] 0.96 mg/dL 0.55-1.[address] [facility] Comment on above: The validity of the calculated GFR & GFRAA in patients over 70 years has not been determined. Clinical correlation is essential. Serum or plasma urea nitroge n measurement (mass/volume)Ordered By: Dr. Robbins on 10-16-2022 Urea nitrogen [Mass/Vol] 10 mg/dL 7-18 [facility] Thin prep Papanicolaou smear with manual screeningOrdered By: Dr. Robbins on 10-16-2022 Thin prep Papanicolaou smear with manual screening 7 - [facility] Absolute lymphocyte countOrd ered By: Dr. Robbins on 10-07-2022 Lymphocytes Auto (Unsp spec) [#/Vol] 1.73 10*3/uL 0.83-4.51 [facility] Basophil percentageOrdered B y: Dr. Robbins on 10-07-2022 Creatinine [Mass/Vol] 1.1 mg/dL 0.55-1.[address] [facility] Basophils/100 WBC (Bld) 0.4 % 0-1 [facility] Bilirubin [Mass/Vol] 0.50 mg/dL 0.20-1.00 [facility] Comment on above: For patients on eltr ombopag therapy, use of Dimension Emily TBIL is not recommended. Chloride [Moles/Vol] 96 mmol/L 98-107 [facility] Eosinophils/100 WBC (Bld) 0.9 % 0-5 [facility] Glucose [Mass/Vol] 221 mg/dL 74-106 [facility] Comment on above: Glucose result great er than or equal to 200 mg/dLsuggests DIABETES MELLITUS per A.D.A. criteria. LDH [Catalytic activity/Vol] 275 U/L 84-246 [facility] Neutrophils (Bld) [#/Vol] 7.5 10*3/uL 2.0-7.7 [facility] Neutrophils/100 WBC (Bld) 73.4 % 47-70 [facility] Potassium [Moles/Vol] 2.9 mmol/L 3.5-5.[address] [facility] Protein [Mass/Vol] 7.5 g/dL 6.4-8.2 [facility] Sodium [Moles/Vol] 137 mmol/L 136-145 [facility] WBC (Bld) [#/Vol] 10.3 10*3/uL 4.4-11.0 [facility] Blood erythrocytes count (nu mber/volume)Ordered By: Dr. Robbins on 10-07-2022 RBC (Bld) [#/Vol] 5.29 10*6/uL 4.2-5.4 [facility] Blood hemoglobin measurement (mass/volume)Ordered By: Dr. Robbins on 10-07-2022 Hemoglobin (Bld) [Mass/Vol] 14.7 g/dL 12.0-15.0 [facility] Blood lymphocytes/100 leukoc ytesOrdered By: Dr. Robbins on 10-07-2022 Lymphocytes/100 WBC (Bld) 16.9 % 19-41 [facility] Blood monocytes/100 leukocyt esOrdered By: Dr. Robbins on 10-07-2022 Monocytes/100 WBC (Bld) 8.0 % 0-10 [facility] Blood platelet mean volumeOr dered By: Dr. Robbins on 10-07-2022 Platelet mean volume (Bld) [Entitic vol] 10.8 fL 6.2-12.0 [facility] Determination of erythrocyte mean corpuscular volume (MCV)Ordered By: Dr. Robbins on 10-07-2022 MCV (RBC) [Entitic vol] 90.0 fL 81-99 [facility] Hematocrit Auto (Bld) [Volum e fraction]Ordered By: Dr. Robbins on 10-07-2022 Hematocrit (Bld) [Volume fraction] 47.6 % 37-47 [facility] INR in Blood by Coagulation assayOrdered By: Dr. Rosales on 10-07-2022 INR Coag (Bld) [Relative time] 2.8 {INR} [facility] Laboratory - Chemistry and C hemistry - challengeOrdered By: Dr. Robbins on 10-07-2022 GFR/1.73 sq M.predicted among non-blacks MDRD (S/P/Bld) [Vol rate/Area] 52.0000 mL/min/{1.73_m2} >60 [facility] ALP [Catalytic activity/Vol] 131 U/L 45-117 [facility] ALT [Catalytic activity/Vol] 21 U/L 13-56 [facility] CO2 [Moles/Vol] 31.0 mmol/L 21.0-32.0 [facility] Globulin (S) [Mass/Vol] 4.2 g/dL 2.2-4.2 [facility] Urea nitrogen/Creatinine [Mass ratio] 10.3 mg/mg 10-20 [facility] Laboratory - CoagulationOrde red By: Dr. Rosales on 10-07-2022 PT Coag (PPP) [Time] 29.0 s 11.7-14.9 [facility] Laboratory - Hematology and Cell countsOrdered By: Dr. Robbins on 10-07-2022 Erythrocyte distribution width (RBC) [Entitic vol] 48.9 fL 35.1-43.9 [facility] Erythrocyte distribution width (RBC) [Ratio] 14.7 % 11.6-14.6 [facility] Immature granulocytes/100 WBC (Bld) 0.400 % 0.0-0.9 [facility] Comment on above: IG% - Immature Granu locytes (promyelocytes, myelocytes and metamyelocytes) > 1% indicates that a LEFT SHIFT is Present. MCH (RBC) [Entitic mass] 27.8 pg 27.0-32.0 [facility] Nucleated RBC/100 WBC (Bld) [Ratio] 0 % 0-5 [facility] MCHC Auto (RBC) [Mass/Vol]Or dered By: Dr. Robbins on 10-07-2022 MCHC (RBC) [Mass/Vol] 30.9 g/dL 32-[address] [facility] No Panel InformationOrdered By: Dr. Robbins on 10-07-2022 Estimated GFR (MDRD) Amer 59 mL/min >60 [facility] Comment on above: GFR Calc Estimated GFR (MDRD) Non-Af Amer 49 mL/min >60 [facility] Comment on above: Non- GFR Calc Platelets bldOrdered By: Dr. Robbins on 10-07-2022 Platelets (Bld) [#/Vol] 258 10*3/uL 150-450 [facility] Serum or plasma albumin bessie urement (mass/volume)Ordered By: Dr. Robbins on 10-07-2022 Albumin [Mass/Vol] 3.3 g/dL 3.2-5.0 [facility] Serum or plasma albumin/glob ulin mass ratioOrdered By: Dr. Robbins on 10-07-2022 Albumin/Globulin [Mass ratio] 0.8 {ratio} 0.9-2.4 [facility] Serum or plasma calcium bessie urement (mass/volume)Ordered By: Dr. Robbins on 10-07-2022 Calcium [Mass/Vol] 9.3 mg/dL 8.5-10.1 [facility] Serum or plasma carcinoembry onic antigen measurement (mass/volume)Ordered By: Dr. Robbins on 10-07-2022 Carcinoembryonic Ag [Mass/Vol] 6.4 ng/mL 0.0-4.7 [facility] Comment on above: Nonsmokers <3.9 Smok ers <5.6[facility] Electrochemiluminescence Immunoassay(ECLIA)Values obtained with different assay methods or kitscannot be used interchangeably. Results cannot beinterpreted as absolute evidence of the presence orabsence of malignant disease.Performed at: [address] [id number] Director: Taiwo Quintero PhD, Phone: [phone] Serum or plasma creatinine m easurement (mass/volume)Ordered By: Dr. Robbins on 10-07-2022 Creatinine [Mass/Vol] 1.17 mg/dL 0.55-1.[address] [facility] Comment on above: The validity of the calculated GFR & GFRAA in patients over 70 years has not been determined. Clinical correlation is essential. Serum or plasma urea nitroge n measurement (mass/volume)Ordered By: Dr. Robbins on 10-07-2022 Urea nitrogen [Mass/Vol] 12 mg/dL 7-18 [facility] Thin prep Papanicolaou smear with manual screeningOrdered By: Dr. Robbins on 10-07-2022 Thin prep Papanicolaou smear with manual screening 24 U/L 15-37 [facility] Thin prep Papanicolaou smear with manual screening 10 5-15 [facility] Absolute lymphocyte countOrd ered By: Dr. Rosales on 07-04-2022 Lymphocytes Auto (Unsp spec) [#/Vol] 2.17 10*3/uL 0.83-4.51 [facility] Basophil percentageOrdered B y: Dr. Rosales on 07-04-2022 Basophils/100 WBC (Bld) 0.7 % 0-1 [facility] Bilirubin [Mass/Vol] 0.50 mg/dL 0.20-1.00 [facility] Comment on above: For patients on eltr ombopag therapy, use of Dimension Emily TBIL is not recommended. Chloride [Moles/Vol] 98 mmol/L 98-107 [facility] Eosinophils/100 WBC (Bld) 1.4 % 0-5 [facility] Glucose [Mass/Vol] 159 mg/dL 74-106 [facility] Comment on above: Fasting Glucose resu lt greater than or equal to 126 mg/dL suggests DIABETES MELLITUS per A.D.A. criteria. Neutrophils (Bld) [#/Vol] 5.2 10*3/uL 2.0-7.7 [facility] Neutrophils/100 WBC (Bld) 62.3 % 47-70 [facility] Potassium [Moles/Vol] 4.5 mmol/L 3.5-5.[address] [facility] Protein [Mass/Vol] 7.0 g/dL 6.4-8.2 [facility] Sodium [Moles/Vol] 137 mmol/L 136-145 [facility] WBC (Bld) [#/Vol] 8.4 10*3/uL 4.4-11.0 [facility] Blood erythrocytes count (nu mber/volume)Ordered By: Dr. Rosales on 07-04-2022 RBC (Bld) [#/Vol] 5.40 10*6/uL 4.2-5.4 [facility] Blood hemoglobin measurement (mass/volume)Ordered By: Dr. Rosales on 07-04-2022 Hemoglobin (Bld) [Mass/Vol] 14.3 g/dL 12.0-15.0 [facility] Blood lymphocytes/100 leukoc ytesOrdered By: Dr. Rosales on 07-04-2022 Lymphocytes/100 WBC (Bld) 25.9 % 19-41 [facility] Blood monocytes/100 leukocyt esOrdered By: Dr. Rosales on 07-04-2022 Monocytes/100 WBC (Bld) 9.3 % 0-10 [facility] Blood platelet mean volumeOr dered By: Dr. Rosales on 07-04-2022 Platelet mean volume (Bld) [Entitic vol] 10.7 fL 6.2-12.0 [facility] Determination of erythrocyte mean corpuscular volume (MCV)Ordered By: Dr. Rosales on 07-04-2022 MCV (RBC) [Entitic vol] 89.3 fL 81-99 [facility] Hematocrit Auto (Bld) [Volum e fraction]Ordered By: Dr. Rosales on 07-04-2022 Hematocrit (Bld) [Volume fraction] 48.2 % 37-47 [facility] Laboratory - Chemistry and C hemistry - challengeOrdered By: Dr. Rosales on 07-04-2022 ALP [Catalytic activity/Vol] 135 U/L 45-117 [facility] ALT [Catalytic activity/Vol] 23 U/L 13-56 [facility] CO2 [Moles/Vol] 29.0 mmol/L 21.0-32.0 [facility] Globulin (S) [Mass/Vol] 3.5 g/dL 2.2-4.2 [facility] Magnesium [Mass/Vol] 2.1 mg/dL 1.6-2.6 [facility] Urea nitrogen/Creatinine [Mass ratio] 11.4 mg/mg 10-20 [facility] Laboratory - Hematology and Cell countsOrdered By: Dr. Rosales on 07-04-2022 Erythrocyte distribution width (RBC) [Entitic vol] 55.2 fL 35.1-43.9 [facility] Erythrocyte distribution width (RBC) [Ratio] 17.2 % 11.6-14.6 [facility] Immature granulocytes/100 WBC (Bld) 0.400 % 0.0-0.9 [facility] Comment on above: IG% - Immature Granu locytes (promyelocytes, myelocytes and metamyelocytes) > 1% indicates that a LEFT SHIFT is Present. MCH (RBC) [Entitic mass] 26.5 pg 27.0-32.0 [facility] Nucleated RBC/100 WBC (Bld) [Ratio] 0 % 0-5 [facility] MCHC Auto (RBC) [Mass/Vol]Or dered By: Dr. Rosales on 07-04-2022 MCHC (RBC) [Mass/Vol] 29.7 g/dL 32-[address] [facility] No Panel InformationOrdered By: Dr. Rosales on 07-04-2022 Estimated GFR (MDRD) Amer 74 mL/min >60 [facility] Comment on above: GFR Calc Estimated GFR (MDRD) Non-Af Amer 61 mL/min >60 [facility] Comment on above: Non- GFR Calc Total Iron Binding Capacity 386 ug/dL 250-450 [facility] Platelets bldOrdered By: Dr. Rosales on 07-04-2022 Platelets (Bld) [#/Vol] 297 10*3/uL 150-450 [facility] Serum or plasma albumin bessie urement (mass/volume)Ordered By: Dr. Rosales on 07-04-2022 Albumin [Mass/Vol] 3.5 g/dL 3.2-5.0 [facility] Serum or plasma albumin/glob ulin mass ratioOrdered By: Dr. Rosales on 07-04-2022 Albumin/Globulin [Mass ratio] 1.0 {ratio} 0.9-2.4 [facility] Serum or plasma calcium bessie urement (mass/volume)Ordered By: Dr. Rosales on 07-04-2022 Calcium [Mass/Vol] 8.8 mg/dL 8.5-10.1 [facility] Serum or plasma creatinine m easurement (mass/volume)Ordered By: Dr. Rosales on 07-04-2022 Creatinine [Mass/Vol] 0.96 mg/dL 0.55-1.[address] [facility] Comment on above: The validity of the calculated GFR & GFRAA in patients over 70 years has not been determined. Clinical correlation is essential. Serum or plasma ferritin ajit surement (mass/volume)Ordered By: Dr. Rosales on 07-04-2022 Ferritin [Mass/Vol] 41 ng/mL 8-252 [facility] Serum or plasma urea nitroge n measurement (mass/volume)Ordered By: Dr. Rosales on 07-04-2022 Urea nitrogen [Mass/Vol] 11 mg/dL 7-18 [facility] Thin prep Papanicolaou smear with manual screeningOrdered By: Dr. Rosales on 07-04-2022 Thin prep Papanicolaou smear with manual screening 16 U/L 15-37 [facility] Thin prep Papanicolaou smear with manual screening 10 5-15 [facility] Absolute lymphocyte counton 04-05-2022 Lymphocytes Auto (Unsp spec) [#/Vol] 1.28 10*3/uL 0.83-4.51 [facility] Work Phone: Basophil percentageon 2021 Basophil percentage < 0.9 mg/dL 0.55-1.02 [facility] Work Phone: Basophils/100 WBC (Bld) 0.6 % 0-1 [facility] Work Phone: Bilirubin [Mass/Vol] 0.40 mg/dL 0.20-1.00 [facility] Work Phone: Comment on above: For patients on eltr ombopag therapy, use of Dimension Emily TBIL is not recommended. Chloride [Moles/Vol] 99 mmol/L 98-107 [facility] Work Phone: Eosinophils/100 WBC (Bld) 1.0 % 0-5 [facility] Work Phone: Glucose [Mass/Vol] 245 mg/dL 74-106 [facility] Work Phone: Comment on above: Glucose result great er than or equal to 200 mg/dLsuggests DIABETES MELLITUS per A.D.A. criteria. Neutrophils (Bld) [#/Vol] 6.5 10*3/uL 2.0-7.7 [facility] Work Phone: Neutrophils/100 WBC (Bld) 75.8 % 47-70 [facility] Work Phone: Potassium [Moles/Vol] 3.4 mmol/L 3.5-5.1 [facility] Work Phone: Protein [Mass/Vol] 7.4 g/dL 6.4-8.2 [facility] Work Phone: Sodium [Moles/Vol] 137 mmol/L 136-145 [facility] Work Phone: WBC (Bld) [#/Vol] 8.6 10*3/uL 4.4-11.0 [facility] Work Phone: Blood erythrocytes count (nu mber/volume)on 04-05-2022 RBC (Bld) [#/Vol] 5.18 10*6/uL 4.2-5.4 [facility] Work Phone: Blood hemoglobin measurement (mass/volume)on 04-05-2022 Hemoglobin (Bld) [Mass/Vol] 13.1 g/dL 12.0-15.0 [facility] Work Phone: Blood lymphocytes/100 leukoc yteson 04-05-2022 Lymphocytes/100 WBC (Bld) 14.8 % 19-41 [facility] Work Phone: Blood monocytes/100 leukocyt eson 04-05-2022 Monocytes/100 WBC (Bld) 7.5 % 0-10 [facility] Work Phone: Blood platelet mean volumeon 04-05-2022 Platelet mean volume (Bld) [Entitic vol] 9.6 fL 6.2-12.0 [facility] Work Phone: Determination of erythrocyte mean corpuscular volume (MCV)on 04-05-2022 MCV (RBC) [Entitic vol] 84.2 fL 81-99 [facility] Work Phone: Hematocrit Auto (Bld) [Volum e fraction]on 04-05-2022 Hematocrit (Bld) [Volume fraction] 43.6 % 37-47 [facility] Work Phone: Laboratory - Chemistry and C hemistry - challengeon 04-05-2022 ALP [Catalytic activity/Vol] 144 U/L 45-117 [facility] Work Phone: ALT [Catalytic activity/Vol] 17 U/L 13-56 [facility] Work Phone: CO2 [Moles/Vol] 29.0 mmol/L 21.0-32.0 [facility] Work Phone: Globulin (S) [Mass/Vol] 4.2 g/dL 2.2-4.2 [facility] Work Phone: Urea nitrogen/Creatinine [Mass ratio] 11.2 mg/mg 10-20 [facility] Work Phone: Laboratory - Hematology and Cell countson 04-05-2022 Erythrocyte distribution width (RBC) [Entitic vol] 56.0 fL 35.1-43.9 [facility] Work Phone: Erythrocyte distribution width (RBC) [Ratio] 18.3 % 11.6-14.6 [facility] Work Phone: Immature granulocytes/100 WBC (Bld) 0.300 % 0.0-0.9 [facility] Work Phone: Comment on above: IG% - Immature Granu locytes (promyelocytes, myelocytes and metamyelocytes) > 1% indicates that a LEFT SHIFT is Present. MCH (RBC) [Entitic mass] 25.3 pg 27.0-32.0 [facility] Work Phone: Nucleated RBC/100 WBC (Bld) [Ratio] 0 % 0-5 [facility] Work Phone: MCHC Auto (RBC) [Mass/Vol]on 04-05-2022 MCHC (RBC) [Mass/Vol] 30.0 g/dL 32-36 [facility] Work Phone: No Panel Informationon 04-05 Bedside Estimated GFR (eGFR) > 60.0000 mL/min >60 [facility] Work Phone: Estimated GFR (MDRD) Amer 59 mL/min >60 [facility] Work Phone: Comment on above: GFR Calc Estimated GFR (MDRD) Non-Af Amer 49 mL/min >60 [facility] Work Phone: Comment on above: Non- GFR Calc Platelets bldon 04-05-2022 Platelets (Bld) [#/Vol] 290 10*3/uL 150-450 [facility] Work Phone: Serum or plasma albumin bessie urement (mass/volume)on 04-05-2022 Albumin [Mass/Vol] 3.2 g/dL 3.2-5.0 [facility] Work Phone: Serum or plasma albumin/glob ulin mass ratioon 04-05-2022 Albumin/Globulin [Mass ratio] 0.8 {ratio} 0.9-2.4 [facility] Work Phone: Serum or plasma calcium bessie urement (mass/volume)on 04-05-2022 Calcium [Mass/Vol] 9.3 mg/dL 8.5-10.1 [facility] Work Phone: Serum or plasma carcinoembry onic antigen measurement (mass/volume)on 04-05-2022 Carcinoembryonic Ag [Mass/Vol] 3.6 ng/mL 0.0-4.7 [facility] Work Phone: Comment on above: Nonsmokers <3.9 Smok ers <5.6[facility] Electrochemiluminescence Immunoassay(ECLIA)Values obtained with different assay methods or kitscannot be used interchangeably. Results cannot beinterpreted as absolute evidence of the presence orabsence of malignant disease.Performed at: [employer] [employer] [id number] Director: Taiwo Quintero PhD, Phone: [phone] Serum or plasma creatinine m easurement (mass/volume)on 04-05-2022 Creatinine [Mass/Vol] 1.16 mg/dL 0.55-1.[address] [facility] Work Phone: Comment on above: The validity of the calculated GFR & GFRAA in patients over 70 years has not been determined. Clinical correlation is essential. Serum or plasma urea nitroge n measurement (mass/volume)on 04-05-2022 Urea nitrogen [Mass/Vol] 13 mg/dL 7-18 [facility] Work Phone: Thin prep Papanicolaou smear with manual screeningon 04-05-2022 Thin prep Papanicolaou smear with manual screening 13 U/L 15-37 [facility] Work Phone: Thin prep Papanicolaou smear with manual screening 9 5-15 [facility] Work Phone: Thin prep Papanicolaou smear with manual screening 199 U/L 84-246 [facility] Work Phone: Absolute lymphocyte counton 02-19-2022 Lymphocytes Auto (Unsp spec) [#/Vol] 1.46 10*3/uL 0.83-4.51 [facility] Work Phone: Basophil percentageon 2021 Basophils/100 WBC (Bld) 0.4 % 0-1 [facility] Work Phone: Bilirubin [Mass/Vol] 0.70 mg/dL 0.20-1.00 [facility] Work Phone: Comment on above: For patients on eltr ombopag therapy, use of Dimension Emily TBIL is not recommended. Chloride [Moles/Vol] 99 mmol/L 98-107 [facility] Work Phone: Eosinophils/100 WBC (Bld) 1.3 % 0-5 [facility] Work Phone: Glucose [Mass/Vol] 169 mg/dL 74-106 [facility] Work Phone: Comment on above: Fasting Glucose resu lt greater than or equal to 126 mg/dL suggests DIABETES MELLITUS per A.D.A. criteria. Neutrophils (Bld) [#/Vol] 5.9 10*3/uL 2.0-7.7 [facility] Work Phone: Neutrophils/100 WBC (Bld) 72.1 % 47-70 [facility] Work Phone: Potassium [Moles/Vol] 3.1 mmol/L 3.5-5.1 [facility] Work Phone: Protein [Mass/Vol] 7.2 g/dL 6.4-8.2 [facility] Work Phone: [phone] Sodium [Moles/Vol] 137 mmol/L 136-145 [facility] Work Phone: WBC (Bld) [#/Vol] 8.2 10*3/uL 4.4-11.0 [facility] Work Phone: Blood erythrocytes count (nu mber/volume)on 02-19-2022 RBC (Bld) [#/Vol] 4.38 10*6/uL 4.2-5.4 [facility] Work Phone: Blood hemoglobin measurement (mass/volume)on 02-19-2022 Hemoglobin (Bld) [Mass/Vol] 10.6 g/dL 12.0-15.0 [facility] Work Phone: Blood lymphocytes/100 leukoc yteson 02-19-2022 Lymphocytes/100 WBC (Bld) 17.8 % 19-41 [facility] Work Phone: Blood manual differential co mment interpretation (narrative result)on 02-19-2022 Manual differential comment Herminio (Bld) [Interp] SCANNED [facility] Work Phone: Blood monocytes/100 leukocyt eson 02-19-2022 Monocytes/100 WBC (Bld) 7.9 % 0-10 [facility] Work Phone: Blood platelet mean volumeon 02-19-2022 Platelet mean volume (Bld) [Entitic vol] 10.1 fL 6.2-12.0 [facility] Work Phone: Determination of erythrocyte mean corpuscular volume (MCV)on 02-19-2022 MCV (RBC) [Entitic vol] 82.9 fL 81-99 [facility] Work Phone: Hematocrit Auto (Bld) [Volum e fraction]on 02-19-2022 Hematocrit (Bld) [Volume fraction] 36.3 % 37-47 [facility] Work Phone: Laboratory - Chemistry and C hemistry - challengeon 02-19-2022 ALP [Catalytic activity/Vol] 126 U/L 45-117 [facility] Work Phone: ALT [Catalytic activity/Vol] 13 U/L 13-56 [facility] Work Phone: [phone] CO2 [Moles/Vol] 31.0 mmol/L 21.0-32.0 [facility] Work Phone: Globulin (S) [Mass/Vol] 4.0 g/dL 2.2-4.2 [facility] Work Phone: Magnesium [Mass/Vol] 1.4 mg/dL 1.6-2.6 [facility] Work Phone: Urea nitrogen/Creatinine [Mass ratio] 12.4 mg/mg 10-20 [facility] Work Phone: Laboratory - Hematology and Cell countson 02-19-2022 Anisocytosis Ql (Bld) 2+ [facility]: Erythrocyte distribution width (RBC) [Entitic vol] 60.8 fL 35.1-43.9 [facility] Work Phone: Erythrocyte distribution width (RBC) [Ratio] 20.8 % 11.6-14.6 [facility] Work Phone: Immature granulocytes/100 WBC (Bld) 0.500 % 0.0-0.9 [facility] Work Phone: Comment on above: IG% - Immature Granu locytes (promyelocytes, myelocytes and metamyelocytes) > 1% indicates that a LEFT SHIFT is Present. MCH (RBC) [Entitic mass] 24.2 pg 27.0-32.0 [facility] Work Phone: Nucleated RBC/100 WBC (Bld) [Ratio] 0 % 0-5 [facility] Work Phone: MCHC Auto (RBC) [Mass/Vol]on 02-19-2022 MCHC (RBC) [Mass/Vol] 29.2 g/dL 32-[address] [facility] Work Phone: No Panel Informationon 02-19 Estimated GFR (MDRD) Amer 61 mL/min >60 [facility] Work Phone: Comment on above: GFR Calc Estimated GFR (MDRD) Non-Af Amer 51 mL/min >60 [facility] Work Phone: Comment on above: Non- GFR Calc Platelets bldon 02-19-2022 Platelets (Bld) [#/Vol] 304 10*3/uL 150-450 [facility] Work Phone: Serum or plasma albumin bessie urement (mass/volume)on 02-19-2022 Albumin [Mass/Vol] 3.2 g/dL 3.2-5.0 [facility] Work Phone: Serum or plasma albumin/glob ulin mass ratioon 02-19-2022 Albumin/Globulin [Mass ratio] 0.8 {ratio} 0.9-2.4 [facility] Work Phone: Serum or plasma calcium bessie urement (mass/volume)on 02-19-2022 Calcium [Mass/Vol] 9.1 mg/dL 8.5-10.1 [facility] Work Phone: Serum or plasma creatinine m easurement (mass/volume)on 02-19-2022 Creatinine [Mass/Vol] 1.13 mg/dL 0.55-1.[address] [facility] Work Phone: Comment on above: The validity of the calculated GFR & GFRAA in patients over 70 years has not been determined. Clinical correlation is essential. Serum or plasma ferritin ajit surement (mass/volume)on 02-19-2022 Ferritin [Mass/Vol] 29 ng/mL 8-252 [facility] Work Phone: Serum or plasma urea nitroge n measurement (mass/volume)on 02-19-2022 Urea nitrogen [Mass/Vol] 14 mg/dL 7-18 [facility] Work Phone: Thin prep Papanicolaou smear with manual screeningon 02-19-2022 Thin prep Papanicolaou smear with manual screening 11 U/L 15-37 [facility] Work Phone: Thin prep Papanicolaou smear with manual screening 7 5-15 [facility] Work Phone: Whole blood hemoglobin A1c/t otal hemoglobin ratio (mass fraction)on 02-19-2022 HbA1c (Bld) [Mass fraction] 7.3 % 3.8-5.6 [facility] Work Phone: Comment on above: Normal < 5.7 % Predi abetic 5.7 - 6.4 % Diabetic >or= 6.5 % Please note range changes. Absolute lymphocyte counton 12-20-2021 Lymphocytes Auto (Unsp spec) [#/Vol] 1.52 10*3/uL 0.83-4.51 [facility] Work Phone: [phone] Basophil percentageon 2021 Basophils/100 WBC (Bld) 0.5 % 0-1 [facility] Work Phone: Eosinophils/100 WBC (Bld) 1.7 % 0-5 [facility] Work Phone: Neutrophils (Bld) [#/Vol] 6.4 10*3/uL 2.0-7.7 [facility] Work Phone: Neutrophils/100 WBC (Bld) 72.3 % 47-70 [facility] Work Phone: WBC (Bld) [#/Vol] 8.8 10*3/uL 4.4-11.0 [facility] Work Phone: Bilirubin [Mass/Vol] 0.40 mg/dL 0.20-1.00 [facility] Work Phone: Comment on above: For patients on eltr ombopag therapy, use of Dimension Emily TBIL is not recommended. Chloride [Moles/Vol] 99 mmol/L 98-107 [facility] Work Phone: Glucose [Mass/Vol] 190 mg/dL 74-106 [facility] Work Phone: Comment on above: Fasting Glucose resu lt greater than or equal to 126 mg/dL suggests DIABETES MELLITUS per A.D.A. criteria. Potassium [Moles/Vol] 3.4 mmol/L 3.5-5.[address] [facility] Work Phone: Protein [Mass/Vol] 7.4 g/dL 6.4-8.2 [facility] Work Phone: Sodium [Moles/Vol] 136 mmol/L 136-145 [facility] Work Phone: Blood erythrocytes count (nu mber/volume)on 12-20-2021 RBC (Bld) [#/Vol] 4.40 10*6/uL 4.2-5.4 [facility] Work [facility]: Blood hemoglobin measurement (mass/volume)on 12-20-2021 Hemoglobin (Bld) [Mass/Vol] 10.5 g/dL 12.0-15.0 [facility] Work Phone: Blood lymphocytes/100 leukoc yteson 12-20-2021 Lymphocytes/100 WBC (Bld) 17.2 % 19-41 [facility] Work Phone: Blood monocytes/100 leukocyt eson 12-20-2021 Monocytes/100 WBC (Bld) 7.8 % 0-10 [facility] Work Phone: Blood platelet mean volumeon 12-20-2021 Platelet mean volume (Bld) [Entitic vol] 9.7 fL 6.2-12.0 [facility] Work Phone: Determination of erythrocyte mean corpuscular volume (MCV)on 12-20-2021 MCV (RBC) [Entitic vol] 81.4 fL 81-99 [facility] Work Phone: [phone] Hematocrit Auto (Bld) [Volum e fraction]on 12-20-2021 Hematocrit (Bld) [Volume fraction] 35.8 % 37-47 [facility] Work Phone: Laboratory - Chemistry and C hemistry - challengeon 12-20-2021 ALP [Catalytic activity/Vol] 112 U/L 45-117 [facility] Work Phone: ALT [Catalytic activity/Vol] 14 U/L 13-56 [facility] Work Phone: CO2 [Moles/Vol] 31.0 mmol/L 21.0-32.0 [facility] Work Phone: Free T4 [Mass/Vol] 1.84 ng/dL 0.76-1.46 [facility] Work Phone: Globulin (S) [Mass/Vol] 4.3 g/dL 2.2-4.2 [facility] Work Phone: Magnesium [Mass/Vol] 1.8 mg/dL 1.6-2.6 [facility] Work Phone: Urea nitrogen/Creatinine [Mass ratio] 11.5 mg/mg 10-20 [facility] Work Phone: Laboratory - Hematology and Cell countson 12-20-2021 Erythrocyte distribution width (RBC) [Entitic vol] 49.4 fL 35.1-43.9 [facility] Work Phone: Erythrocyte distribution width (RBC) [Ratio] 16.6 % 11.6-14.6 [facility] Work Phone: Immature granulocytes/100 WBC (Bld) 0.500 % 0.0-0.9 [facility] Work Phone: Comment on above: IG% - Immature Granu locytes (promyelocytes, myelocytes and metamyelocytes) > 1% indicates that a LEFT SHIFT is Present. MCH (RBC) [Entitic mass] 23.9 pg 27.0-32.0 [facility] Work Phone: Nucleated RBC/100 WBC (Bld) [Ratio] 0 % 0-5 [facility] Work Phone: MCHC Auto (RBC) [Mass/Vol]on 12-20-2021 MCHC (RBC) [Mass/Vol] 29.3 g/dL 32-[address] [facility] Work Phone: No Panel Informationon 12-20 Estimated GFR (MDRD) Amer 83 mL/min >60 [facility] Work Phone: Comment on above: GFR Calc Estimated GFR (MDRD) Non-Af Amer 69 mL/min >60 [facility] Work Phone: Comment on above: Non- GFR Calc Free Triiodothyronine (T3) pg/dL 2.2 pg/mL 2.18-3.98 [facility] Work Phone: Thyroid Stimulating Hormone (TSH) 2.18 uIU/mL 0.358-3.74 [facility] Work Phone: Platelets bldon 12-20-2021 Platelets (Bld) [#/Vol] 325 10*3/uL 150-450 [facility] Work Phone: Serum or plasma albumin bessie urement (mass/volume)on 12-20-2021 Albumin [Mass/Vol] 3.1 g/dL 3.2-5.0 [facility] Work Phone: Serum or plasma albumin/glob ulin mass ratioon 12-20-2021 Albumin/Globulin [Mass ratio] 0.7 {ratio} 0.9-2.4 [facility] Work Phone: Serum or plasma calcium bessie urement (mass/volume)on 12-20-2021 Calcium [Mass/Vol] 8.8 mg/dL 8.5-10.1 [facility] Work Phone: Serum or plasma creatinine m easurement (mass/volume)on 12-20-2021 Creatinine [Mass/Vol] 0.87 mg/dL 0.55-1.[address] [facility] Work Phone: Comment on above: The validity of the calculated GFR & GFRAA in patients over 70 years has not been determined. Clinical correlation is essential. Serum or plasma urea nitroge n measurement (mass/volume)on 12-20-2021 Urea nitrogen [Mass/Vol] 10 mg/dL 7-18 [facility] Work Phone: Thin prep Papanicolaou smear with manual screeningon 12-20-2021 Thin prep Papanicolaou smear with manual screening 14 U/L 15-37 [facility] Work Phone: Thin prep Papanicolaou smear with manual screening 6 5-15 [facility] Work Phone: Basophil percentageon 2021 Bilirubin [Mass/Vol] 0.30 mg/dL 0.20-1.00 [facility] Work Phone: Comment on above: For patients on eltr ombopag therapy, use of Dimension Emily TBIL is not recommended. Chloride [Moles/Vol] 101 mmol/L 98-107 [facility] Work Phone: Glucose [Mass/Vol] 133 mg/dL 74-106 [facility] Work Phone: Comment on above: Fasting Glucose resu lt greater than or equal to 126 mg/dL suggests DIABETES MELLITUS per A.D.A. criteria. Potassium [Moles/Vol] 3.4 mmol/L 3.5-5.[address] [facility] Work Phone: Protein [Mass/Vol] 7.4 g/dL 6.4-8.2 [facility] Work Phone: Sodium [Moles/Vol] 138 mmol/L 136-145 [facility] Work Phone: WBC (Bld) [#/Vol] 7.3 10*3/uL 4.4-11.0 [facility] Work Phone: Blood erythrocytes count (nu mber/volume)on 09-14-2021 RBC (Bld) [#/Vol] 4.61 10*6/uL 4.2-5.4 [facility] Work Phone: Blood hemoglobin measurement (mass/volume)on 09-14-2021 Hemoglobin (Bld) [Mass/Vol] 10.7 g/dL 12.0-15.0 [facility] Work Phone: Blood platelet mean volumeon 09-14-2021 Platelet mean volume (Bld) [Entitic vol] 10.4 fL 6.2-12.0 [facility] Work Phone: Determination of erythrocyte mean corpuscular volume (MCV)on 09-14-2021 MCV (RBC) [Entitic vol] 79.6 fL 81-99 [facility] Work Phone: Hematocrit Auto (Bld) [Volum e fraction]on 09-14-2021 Hematocrit (Bld) [Volume fraction] 36.7 % 37-47 [facility] Work Phone: Laboratory - Chemistry and C hemistry - challengeon 09-14-2021 ALP [Catalytic activity/Vol] 94 U/L 45-117 [facility] Work Phone: ALT [Catalytic activity/Vol] 21 U/L 13-56 [facility] Work Phone: CO2 [Moles/Vol] 30.0 mmol/L 21.0-32.0 [facility] Work Phone: Free T4 [Mass/Vol] 1.55 ng/dL 0.76-1.46 [facility] Work Phone: Globulin (S) [Mass/Vol] 4.3 g/dL 2.2-4.2 [facility] Work Phone: Magnesium [Mass/Vol] 2.0 mg/dL [facility] Work Phone: Comment on above: Performed at: [address] [id number] Director: Taiwo Quintero PhD, Phone: [phone] Urea nitrogen/Creatinine [Mass ratio] 12.5 mg/mg 10-20 [facility] Work Phone: Laboratory - Hematology and Cell countson 09-14-2021 Erythrocyte distribution width (RBC) [Entitic vol] 59.3 fL 35.1-43.9 [facility] Work Phone: Erythrocyte distribution width (RBC) [Ratio] 20.6 % 11.6-14.6 [facility] Work Phone: MCH (RBC) [Entitic mass] 23.2 pg 27.0-32.0 [facility] Work Phone: MCHC Auto (RBC) [Mass/Vol]on 09-14-2021 MCHC (RBC) [Mass/Vol] 29.2 g/dL 32-[address] [facility] Work Phone: No Panel Informationon 09-14 Estimated GFR (MDRD) Amer 74 mL/min >60 [facility] Work Phone: Comment on above: GFR Calc Estimated GFR (MDRD) Non-Af Amer 61 mL/min >60 [facility] Work Phone: Comment on above: Non- GFR Calc Free Triiodothyronine (T3) pg/dL 2.7 pg/mL 2.18-3.98 [facility] Work Phone: Thyroid Stimulating Hormone (TSH) 5.20 uIU/mL 0.358-3.74 [facility] Work Phone: Platelets bldon 09-14-2021 Platelets (Bld) [#/Vol] 362 10*3/uL 150-450 [facility] Work Phone: Serum or plasma albumin bessie urement (mass/volume)on 09-14-2021 Albumin [Mass/Vol] 3.1 g/dL 3.2-5.0 [facility] Work Phone: Serum or plasma albumin/glob ulin mass ratioon 09-14-2021 Albumin/Globulin [Mass ratio] 0.7 {ratio} 0.9-2.4 [facility] Work Phone: Serum or plasma calcium bessie urement (mass/volume)on 09-14-2021 Calcium [Mass/Vol] 9.3 mg/dL 8.5-10.1 [facility] Work Phone: Serum or plasma carcinoembry onic antigen measurement (mass/volume)on 09-14-2021 Carcinoembryonic Ag [Mass/Vol] 3.9 ng/mL [facility] Work Phone: Comment on above: Nonsmokers <3.9 Smok ers <5.6[employer] Electrochemiluminescence Immunoassay(ECLIA)Values obtained with different assay methods or kitscannot be used interchangeably. Results cannot beinterpreted as absolute evidence of the presence orabsence of malignant disease.Performed at: [facility] [id number] Director: Taiwo Quintero PhD, Phone: [phone] Serum or plasma creatinine m easurement (mass/volume)on 09-14-2021 Creatinine [Mass/Vol] 0.96 mg/dL 0.55-1.[address] [facility] Work Phone: Comment on above: The validity of the calculated GFR & GFRAA in patients over 70 years has not been determined. Clinical correlation is essential. Serum or plasma urea nitroge n measurement (mass/volume)on 09-14-2021 Urea nitrogen [Mass/Vol] 12 mg/dL 7-18 [facility] Work Phone: Thin prep Papanicolaou smear with manual screeningon 09-14-2021 Thin prep Papanicolaou smear with manual screening 19 U/L 15-37 [facility] Work Phone: Thin prep Papanicolaou smear with manual screening 7 5-15 [facility] Work Phone: INR in Blood by Coagulation assayon 09-04-2021 INR Coag (Bld) [Relative time] 1.9 {INR} [facility] Work Phone: Laboratory - Coagulationon 0 09-04-2021 PT Coag (PPP) [Time] 20.8 s 11.7-14.9 [facility] Work Phone: CNOVon 04-06-2021 CNOV Office Visit (UCWSTR ) ----- ELIZABETH HENLEY ([id number]) 1950 F Date Time Provider Department 04/06/21 11:00 AM JEFFREY ROBLES [facility] During your visit today, we recorded the following information about you: Temperature Pulse Respiration Blood pressure 96.9 degrees 90/minute 18/minute 110/68 Weight 121.6 kg Jeffrey Robles APRN.SHEET [employer]AL FORMER 04/06/2021 1:08 PM Signed Subjective HPI Nontoxic-appearing [...] ankle pain - CHF (congestive heart failure) ([facility]) - Chronic airway obstruction (HCC) - CVA (cerebral vascular accident) ([facility]) - Depression - Hypertension - Obesity - PAD (peripheral artery disease) ([facility]) PAST SURGICAL HISTORY Procedure Laterality Date - APPENDECTOMY 1973 - CHOLECYSTECTOMY 1973 - HYSTERECTOMY 1973 ALLERGIES Codeine MEDICATIONS warfarin (COUMADIN) 5 mg tablet Take 5 mg by mouth daily as directed. Take as directed fluticasone (FLONASE ALLERGY RELIEF) 50 mcg/actuation nasal spray Use 1 [place] in each nostril once daily. mometasone-formoterol (DULERA) [...] - ICD (more content not included)... Normal [facility] No Panel Informationon 04-06 Radiology Study observation (narrative) [facility] XR ANKLE 3V AP/LAT/OBL LTon 04-06-2021 XR [...] relevant examinations available for comparison within the [facility]. RESULT: AP, lateral and [...] of osteochondritis dissecans. MRI may be helpful. [employer] Specialist: [facility] Transcribe Date/Time: Apr 06 2021 12:09P Dictated by : PETEY POWERS MD This examination was interpreted and the report reviewed and electronically signed by: PETEY POWERS MD on Apr 06 2021 12:19PM EST [id number] Normal [facility] XR Ankle - left AP and Later al and obliqueon 04-06-2021 IMPRESSION: Mild bimalleolar soft tissue swelling. Subchondral lucency within the talar dome along the lateral margin without osteochondral loose body. Findings could represent an area of osteochondritis dissecans. MRI may be helpful. [employer] Specialist: [facility] Transcribe Date/Time: Apr 06 2021 12:09P [...] relevant examinations available for comparison within the [facility]. RESULT: AP, lateral and [...] relevant examinations available for comparison within the [facility]. RESULT: AP, lateral and [...] of osteochondritis dissecans. MRI may be helpful. [employer] Specialist: [facility] Transcribe Date/Time: Apr 06 2021 12:09P Dictated by : PETEY POWERS MD This examination was interpreted and the report reviewed and electronically signed by: PETEY POWERS MD on Apr 06 2021 12:19PM [facility] XR FOOT 3V AP/LAT/OBL LTon 0 04-06-2021 [...] relevant examinations available for comparison within the [facility]. RESULT: AP, lateral and oblique radiographs of the left foot demonstrate mild forefoot soft tissue swelling. Mild degenerative change of the IP joints noted. Joint spaces are preserved and there are no erosive changes. No acute bony process. IMPRESSION: Mild forefoot soft tissue swelling. No acute bony process. [employer] Specialist: [facility] Transcribe Date/Time: Apr 06 2021 12:19P Dictated by : PETEY POWERS MD This examination was interpreted and the report reviewed and electronically signed by: PETEY POWERS MD on Apr 06 2021 12:20PM EST [id number] Normal [facility] XR FOOT MINIMUM 3 VIEWS LEFT on [...] PM Ordering Provider: JN MONET [facility] ([place]) XR Foot - left AP and Latera l and obliqueon 04-06-2021 IMPRESSION: Mild forefoot soft tissue swelling. No acute bony process. [employer] Specialist: [facility] Transcribe Date/Time: Apr 06 2021 12:19P Dictated by : PETEY POWERS MD This examination was interpreted and the report reviewed and electronically signed by: PETEY POWERS MD on Apr 06 2021 12:20PM [facility] DIV[facility] OF RADIOLOGY * * *Final [...] relevant examinations available for comparison within the [facility]. RESULT: AP, lateral and [...] relevant examinations available for comparison within the [facility]. RESULT: AP, lateral and oblique radiographs of the left foot demonstrate mild forefoot soft tissue swelling. Mild degenerative change of the IP joints noted. Joint spaces are preserved and there are no erosive changes. No acute bony process. IMPRESSION IMPRESSION: Mild forefoot soft tissue swelling. No acute bony process. [employer] Specialist: PSCJose Transcribe Date/Time: Apr 06 2021 12:19P Dictated by : PETEY POWERS MD This examination was interpreted and the report reviewed and electronically signed by: PETEY POWERS MD on Apr 06 2021 12:20PM EST [facility] XR Foot - left AP and Latera l and obliqueOrdered By: [facility] Provider on 04-06-2021 [facility] Vital Signs Date Time Vital Sign Value Performing Clinician Facility 05-05-2025 16:02-0400 Body height 167.[address] Alejandro Rosales MD Work Phone: 2(438)[phone] [place] [address] 05-05-2025 16:02-0400 Body mass index (BMI) [Ratio] 31.6 kg/m2 Dr. Alejandro Rosales MD Work Phone: 2(589)[phone] [place] [address] 05-05-2025 16:02-0400 Body temperature 98.1 [degF] Dr. Alejandro Rosales MD Work Phone: 7(600)[phone] [place] [address] 05-05-2025 16:02-0400 Body weight 88.[address] Alejandro Rosales MD Work Phone: 4(822)748-999158 [place] [address] 05-05-2025 16:02-0400 Diastolic blood pressure 69 mm[Hg] Dr. Alejandro Rosales MD Work Phone: 3(342)171-053158 [place] [address] 05-05-2025 16:02-0400 Heart rate 62 /min Dr. Alejandro Rosales MD Work Phone: 0(462)372-794858 [place] [address] 05-05-2025 16:02-0400 Respiratory rate 18 /min Dr. Alejandro Rosales MD Work Phone: 3(204)[phone] [place] [address] 05-05-2025 16:02-0400 SaO2% (BldA) [Mass fraction] 94 % Dr. Alejandro Rosales MD Work Phone: 4(862)589-719358 [place] [address] 05-05-2025 16:02-0400 Systolic blood pressure 115 mm[Hg] Dr. Alejandro Rosales MD Work Phone: 0(708)562-559318 [address] 04-21-2025 15:05-0400 Body height 167.[address] Alejandro Rosales MD Work Phone: 9(890)094-942658 [place] [address] 04-21-2025 15:05-0400 Body mass index (BMI) [Ratio] 31.8 kg/m2 Dr. Alejandro Rosales MD Work Phone: 2(454)631-356958 [place] [address] 04-21-2025 15:05-0400 Body temperature 97.9 [degF] Dr. Alejandro Rosales MD Work Phone: 3(041)[phone] [place] [address] 04-21-2025 15:05-0400 Body weight 89.[address] Alejandro Rosales MD Work Phone: 7(328)696-034558 [place] [address] 04-21-2025 15:05-0400 Diastolic blood pressure 68 mm[Hg] Dr. Alejandro Rosales MD Work Phone: 8(807)729-549558 [place] [address] 04-21-2025 15:05-0400 Heart rate 74 /min Dr. Aleajndro Rosales MD Work Phone: 0(671)445-472358 [place] [address] 04-21-2025 15:05-0400 Respiratory rate 16 /min Dr. Alejandro Rosales MD Work Phone: 3(694)437-214358 [place] [address] 04-21-2025 15:05-0400 SaO2% (BldA) [Mass fraction] 94 % Dr. Alejandro Rosales MD Work Phone: 6(542)871-731158 [place] [address] 04-21-2025 15:05-0400 Systolic blood pressure 125 mm[Hg] Dr. Alejandro Rosales MD Work Phone: 5(540)647-963158 [place] [address] 04-19-2025 11:08-0400 Body height 167.[address] Alejandro Rosales MD Work Phone: 2(258)868-900058 [place] [address] 04-19-2025 11:08-0400 Body mass index (BMI) [Ratio] 32.1 kg/m2 Dr. Alejandro Roasles MD Work Phone: 5(312)284-874458 [place] [address] 04-19-2025 11:08-0400 Body weight 90.[address] Alejandro Rosales MD Work Phone: 0(431)203-443558 [place] [address] 04-19-2025 11:08-0400 Diastolic blood pressure 66 mm[Hg] Dr. Alejandro Rosales MD Work Phone: 6(964)[phone] [place] [address] 04-19-2025 11:08-0400 Heart rate 79 /min Dr. Alejandro Rosales MD Work Phone: 9(489)374-966358 [place] [address] 04-19-2025 11:08-0400 Respiratory rate 18 /min Dr. Alejandro Rosales MD Work Phone: 7(115)029-494558 [place] [address] 04-19-2025 11:08-0400 Systolic blood pressure 117 mm[Hg] Dr. Alejandro Rosales MD Work Phone: 2(393)[phone] [place] [address] 03-25-2025 06:41-0400 Body mass index (BMI) [Ratio] 31.8 kg/m2 Dr. Alejandro Rosales MD Work Phone: 5(448)899-245258 [place] [address] 03-25-2025 06:41-0400 Body temperature 97.1 [degF] Dr. Alejandro Rosales MD Work Phone: 1(549)998-644658 [place] [address] 03-25-2025 06:41-0400 Body weight 89.[address] Alejandro Rosales MD Work Phone: 8(419)161-843858 [place] [address] 03-25-2025 06:41-0400 Diastolic blood pressure 68 mm[Hg] Dr. Alejandro Rosales MD Work Phone: 2(698)019-545558 [place] [address] 03-25-2025 06:41-0400 Heart rate 79 /min Dr. Alejandro Rosales MD Work Phone: 9(365)774-994358 [place] [address] 03-25-2025 06:41-0400 Respiratory rate 20 /min Dr. Alejandro Rosales MD Work Phone: 5(086)501-899358 [place] [address] 03-25-2025 06:41-0400 SaO2% (BldA) [Mass fraction] 90 % Dr. Alejandro Rosales MD Work Phone: 1(841)783-695958 [place] [address] 03-25-2025 06:41-0400 Systolic blood pressure 116 mm[Hg] Dr. Alejandro Rosales MD Work Phone: 8(073)159-775258 [place] [address] 03-09-2025 13:09-0400 Body height 167.[address] Alejandro Rosales MD Work Phone: 2(271)819-483658 [place] [address] 03-09-2025 13:09-0400 Body mass index (BMI) [Ratio] 32.8 kg/m2 Dr. Alejandro Rosales MD Work Phone: 2(024)508-279083 [place] [address] 03-09-2025 13:09-0400 Body temperature 96.5 [degF] Dr. Alejandro Rosales MD Work Phone: 5(312)277-742558 [place] [address] 03-09-2025 13:09-0400 Body weight 92.[address] Alejandro Rosales MD Work Phone: 7(814)856-863358 [place] [address] 03-09-2025 13:09-0400 Diastolic blood pressure 66 mm[Hg] Dr. Alejandro Rosales MD Work Phone: 1(029)117-744558 [place] [address] 03-09-2025 13:09-0400 Heart rate 52 /min Dr. Alejandro Rosales MD Work Phone: 9(278)262-465858 [place] [address] 03-09-2025 13:09-0400 Respiratory rate 16 /min Dr. Alejandro Rosales MD Work Phone: 3(770)366-451158 [place] [address] 03-09-2025 13:09-0400 SaO2% (BldA) [Mass fraction] 89 % Dr. Alejandro Rosales MD Work Phone: 1(005)277-537458 [place] [address] 03-09-2025 13:09-0400 Systolic blood pressure 100 mm[Hg] Dr. Alejandro Rosales MD Work Phone: 7(915)006-076858 [place] [address] 02-01-2025 13:14-0400 Body height 167.[address] Alejandro Rosales MD Work Phone: 5(053)838-957958 [place] [address] 02-01-2025 13:14-0400 Body weight 90.[address] Alejandro Rosales MD Work Phone: 4(345)382-362558 [place] [address] 02-01-2025 13:14-0400 Heart rate 67 /min Dr. Alejandro Rosales MD Work Phone: 5(425)600-203158 [place] [address] 02-01-2025 13:14-0400 Inhaled oxygen flow rate 2 L/min Dr. Alejandro Rosales MD Work Phone: 0(338)620-385358 [place] [address] 02-01-2025 13:14-0400 SaO2% (BldA) [Mass fraction] 94 % Dr. Alejandro Rosales MD Work Phone: [facility] 12-24-2024 05:13-0400 Body mass index (BMI) [Ratio] 32.7 kg/m2 Dr. Alejandro Rosales MD Work Phone: [facility] 12-24-2024 05:13-0400 Body temperature 97.4 [degF] Dr. Alejandro Rosales MD Work Phone: 1(409)645-181418 [address] 12-24-2024 05:13-0400 Body weight 94.[address] Alejandro Rosales MD Work Phone: 0(064)940-061558 [place] [address] 12-24-2024 05:13-0400 Diastolic blood pressure 76 mm[Hg] Dr. Alejandro Rosales MD Work Phone: 0(613)103-390518 [address] 12-24-2024 05:13-0400 Heart rate 59 /min Dr. Alejandro Rosales MD Work Phone: 3(318)108-499018 [address] 12-24-2024 05:13-0400 Respiratory rate 14 /min Dr. Alejandro Rosales MD Work Phone: 7(318)384-176418 [address] 12-24-2024 05:13-0400 SaO2% (BldA) [Mass fraction] 98 % Dr. Alejandro Rosales MD Work Phone: 9(046)057-659183 [place] [address] 12-24-2024 05:13-0400 Systolic blood pressure 117 mm[Hg] Dr. Alejandro Rosales MD Work Phone: 8(770)679-993283 [place] [address] 12-23-2024 15:03-0400 Diastolic blood pressure 73 mm[Hg] Dr. Alejandro Rosales MD Work Phone: 3(532)561-340718 [address] 12-23-2024 15:03-0400 Heart rate 50 /min Dr. Alejandro Rosales MD Work Phone: 1(934)916-438383 [place] [address] 12-23-2024 15:03-0400 Respiratory rate 18 /min Dr. Alejandro Rosales MD Work Phone: 7(810)786-347483 [place] [address] 12-23-2024 15:03-0400 SaO2% (BldA) [Mass fraction] 96 % Dr. Alejandro Rosales MD Work Phone: 7(684)464-288483 [place] [address] 12-23-2024 15:03-0400 Systolic blood pressure 116 mm[Hg] Dr. Alejandro Rosales MD Work Phone: 2(531)759-932658 [place] [address] 12-19-2024 13:27-0400 Body temperature 97.3 [degF] Dr. Alejandro Rosales MD Work Phone: 5(388)096-291458 [place] [address] 12-19-2024 13:27-0400 Diastolic blood pressure 47 mm[Hg] Dr. Alejandro Rosales MD Work Phone: 0(023)840-477158 [place] [address] 12-19-2024 13:27-0400 Heart rate 75 /min Dr. Alejandro Rosales MD Work Phone: 8(980)193-195558 [place] [address] 12-19-2024 13:27-0400 Respiratory rate 16 /min Dr. Alejandro Rosales MD Work Phone: 2(401)066-974358 [place] [address] 12-19-2024 13:27-0400 SaO2% (BldA) [Mass fraction] 94 % Dr. Alejandro Rosales MD Work Phone: 4(650)331-174858 [place] [address] 12-19-2024 13:27-0400 Systolic blood pressure 122 mm[Hg] Dr. Alejandro Rosales MD Work Phone: 9(438)122-068358 [place] [address] 12-18-2024 15:04-0400 Body temperature 97.5 [degF] Dr. Alejandro Rosales MD Work Phone: 1(542)940-160358 [place] [address] 12-18-2024 15:04-0400 Diastolic blood pressure 45 mm[Hg] Dr. Alejandro Rosales MD Work Phone: 6(590)357-500758 [place] [address] 12-18-2024 15:04-0400 Heart rate 45 /min Dr. Alejandro Rosales MD Work Phone: 1(791)214-851258 [place] [address] 12-18-2024 15:04-0400 Respiratory rate 18 /min Dr. Alejandro Rosales MD Work Phone: 7(517)126-887658 [place] [address] 12-18-2024 15:04-0400 SaO2% (BldA) [Mass fraction] 95 % Dr. Alejandro Rosales MD Work Phone: 7(286)607-793483 [place] [address] 12-18-2024 15:04-0400 Systolic blood pressure 122 mm[Hg] Dr. Alejandro Rosales MD Work Phone: 3(686)103-993258 [place] [address] 12-17-2024 12:20-0400 Body height 170.[address] Alejandro Rosales MD Work Phone: 5(388)689-720858 [place] [address] 12-17-2024 12:20-0400 Body mass index (BMI) [Ratio] 31.4 kg/m2 Dr. Alejandro Rosales MD Work Phone: 9(621)588-929158 [place] [address] 12-17-2024 12:20-0400 Body weight 91.[address] Alejandro Rosales MD Work Phone: 6(799)981-449358 [place] [address] 12-17-2024 11:24-0400 Body temperature 98.6 [degF] Dr. Alejandro Rosales MD Work Phone: 6(842)421-415458 [place] [address] 12-17-2024 11:24-0400 Diastolic blood pressure 64 mm[Hg] Dr. Alejandro Rosales MD Work Phone: 8(784)711-516858 [place] [address] 12-17-2024 11:24-0400 Heart rate 76 /min Dr. Alejandro Rosales MD Work Phone: 3(383)333-334558 [place] [address] 12-17-2024 11:24-0400 Respiratory rate 14 /min Dr. Alejandro Rosales MD Work Phone: 8(398)805-701858 [place] [address] 12-17-2024 11:24-0400 SaO2% (BldA) [Mass fraction] 98 % Dr. Alejandro Rosales MD Work Phone: 4(204)252-063358 [place] [address] 12-17-2024 11:24-0400 Systolic blood pressure 134 mm[Hg] Dr. Alejandro Rosales MD Work Phone: 6(154)680-308858 [place] [address] 12-17-2024 08:15-0400 Body mass index (BMI) [Ratio] 33.2 kg/m2 Dr. Alejandro Rosales MD Work Phone: 8(166)381-317958 [place] [address] 12-17-2024 08:15-0400 Body weight 96.[address] Alejandro Rosales MD Work Phone: 6(391)253-756983 [place] [address] 12-09-2024 09:10-0400 Body height 170.[address] Alejandro Rosales MD Work Phone: 7(973)677-828758 [place] [address] 12-09-2024 09:10-0400 Body mass index (BMI) [Ratio] 32.8 kg/m2 Dr. Alejandro Rosales MD Work Phone: 7(804)842-228258 [place] [address] 12-09-2024 09:10-0400 Body temperature 98.1 [degF] Dr. Alejandro Rosales MD Work Phone: 0(931)655-238158 [place] [address] 12-09-2024 09:10-0400 Body weight 95.[address] Alejandro Rosales MD Work Phone: 1(236)209-365558 [place] [address] 12-09-2024 09:10-0400 Diastolic blood pressure 64 mm[Hg] Dr. Alejandro Rosales MD Work Phone: 3(007)695-988658 [place] [address] 12-09-2024 09:10-0400 Heart rate 62 /min Dr. Alejandro Rosales MD Work Phone: 9(346)520-489058 [place] [address] 12-09-2024 09:10-0400 Respiratory rate 16 /min Dr. Alejandro Rosales MD Work Phone: 9(143)865-837458 [place] [address] 12-09-2024 09:10-0400 SaO2% (BldA) [Mass fraction] 93 % Dr. Alejandro Rosales MD Work Phone: 1(710)225-549358 [place] [address] 12-09-2024 09:10-0400 Systolic blood pressure 108 mm[Hg] Dr. Alejandro Rosales MD Work Phone: 2(647)183-259158 [place] [address] 12-07-2024 14:33-0400 Body mass index (BMI) [Ratio] 33.5 kg/m2 Dr. Alejandro Rosales MD Work Phone: 4(767)462-786758 [place] [address] 12-07-2024 14:33-0400 Body temperature 97.2 [degF] Dr. Alejandro Rosales MD Work Phone: 2(492)892-152658 [place] [address] 12-07-2024 14:33-0400 Body weight 97.[address] Alejandro Rosales MD Work Phone: 1(427)624-319583 [place] [address] 12-07-2024 14:33-0400 Diastolic blood pressure 79 mm[Hg] Dr. Alejandro Rosales MD Work Phone: 7(928)812-916658 [place] [address] 12-07-2024 14:33-0400 Heart rate 85 /min Dr. Alejandro Rosales MD Work Phone: 2(070)387-574758 [place] [address] 12-07-2024 14:33-0400 Respiratory rate 18 /min Dr. Alejandro Rosales MD Work Phone: 9(857)719-518958 [place] [address] 12-07-2024 14:33-0400 SaO2% (BldA) [Mass fraction] 97 % Dr. Alejandro Rosales MD Work Phone: 3(339)725-918058 [place] [address] 12-07-2024 14:33-0400 Systolic blood pressure 168 mm[Hg] Dr. Alejandro Rosales MD Work Phone: 8(165)232-716958 [place] [address] 12-07-2024 09:02-0400 Body mass index (BMI) [Ratio] 33.3 kg/m2 Dr. Alejandro Rosales MD Work Phone: 8(542)535-862158 [place] [address] 12-07-2024 09:02-0400 Body temperature 97.7 [degF] Dr. Alejandro Rosales MD Work Phone: 4(613)501-880158 [place] [address] 12-07-2024 09:02-0400 Body weight 96.[address] Alejandro Rosales MD Work Phone: 0(758)487-280958 [place] [address] 12-07-2024 09:02-0400 Diastolic blood pressure 60 mm[Hg] Dr. Alejandro Rosales MD Work Phone: 2(824)752-326658 [place] [address] 12-07-2024 09:02-0400 Heart rate 74 /min Dr. Alejandro Rosales MD Work Phone: 5(390)420-800258 [place] [address] 12-07-2024 09:02-0400 Respiratory rate 16 /min Dr. Alejandro Rosales MD Work Phone: 6(900)922-902558 [place] [address] 12-07-2024 09:02-0400 SaO2% (BldA) [Mass fraction] 91 % Dr. Alejandro Rosales MD Work Phone: [facility] 12-07-2024 09:02-0400 Systolic blood pressure 97 mm[Hg] Dr. Alejandro Rosales MD Work Phone: [facility] 11-26-2024 20:28-0400 Body temperature 98 [degF] Dr. Alejandro Rosales MD Work Phone: 1(459)151-531558 [place] [address] 11-26-2024 20:28-0400 Diastolic blood pressure 59 mm[Hg] Dr. Alejandro Rosales MD Work Phone: 4(991)887-318483 [place] [address] 11-26-2024 20:28-0400 Heart rate 52 /min Dr. Alejandro Rosales MD Work Phone: 4(565)106-549058 [place] [address] 11-26-2024 20:28-0400 Respiratory rate 18 /min Dr. Alejandro Rosales MD Work Phone: 7(017)188-877758 [place] [address] 11-26-2024 20:28-0400 SaO2% (BldA) [Mass fraction] 98 % Dr. Alejandro Rosales MD Work Phone: 0(743)914-885683 [place] [address] 11-26-2024 20:28-0400 Systolic blood pressure 132 mm[Hg] Dr. Alejandro Rosales MD Work Phone: 1(441)300-490618 [address] 11-26-2024 05:08-0400 Body mass index (BMI) [Ratio] 33.6 kg/m2 Dr. Alejandro Rosales MD Work Phone: 0(313)313-474783 [place] [address] 11-26-2024 05:08-0400 Body weight 97.[address] Alejandro Rosales MD Work Phone: [facility] 11-25-2024 21:42-0400 Inhaled oxygen concentration 21 % Dr. Alejandro Rosales MD Work Phone: [facility] 11-25-2024 21:42-0400 Inhaled oxygen flow rate 0 L/min Dr. Alejandro Rosales MD Work Phone: [facility] 11-11-2024 11:04-0400 Diastolic blood pressure 74 mm[Hg] Audelia Wood MD Work Phone: 6(696)675-428093 [place] [address] 11-11-2024 11:04-0400 Heart rate 66 /min Audelia Wood MD Work Phone: 5(157)697-858593 [place] [address] 11-11-2024 11:04-0400 Respiratory rate 20 /min Audelia Wood MD Work Phone: 7(172)338-584793 [place] [address] 11-11-2024 11:04-0400 SaO2% (BldA) [Mass fraction] 93 % Audelia Wood MD Work Phone: 7(226)124-802693 [place] [address] 11-11-2024 11:04-0400 Systolic blood pressure 114 mm[Hg] Audelia Wood MD Work Phone: 8(219)654-279793 [place] [address] 11-11-2024 11:01-0400 Body temperature 97.5 [degF] Audelia Wood MD Work Phone: 5(207)924-300293 [place] [address] 11-09-2024 09:29-0400 Body height 170.2 cm Audelia Wood MD Work Phone: 2(051)357-528693 [place] [address] 11-09-2024 09:29-0400 Body mass index (BMI) [Ratio] 34.46 kg/m2 Audelia Wood MD Work Phone: 8(342)458-370093 [place] [address] 11-09-2024 09:29-0400 Body weight 99.8 kg Audelia Wood MD Work Phone: 7(949)992-198993 [place] [address] 11-08-2024 17:00-0400 Body temperature 98.1 [degF] Dr. Alejandro Rosales MD Work Phone: [facility] 11-08-2024 17:00-0400 Diastolic blood pressure 58 mm[Hg] Dr. Alejandro Rosales MD Work Phone: [facility] 11-08-2024 17:00-0400 Heart rate 58 /min Dr. Alejandro Rosales MD Work Phone: [facility] 11-08-2024 17:00-0400 Respiratory rate 19 /min Dr. Alejandro Rosales MD Work Phone: 5(130)724-251383 [place] [address] 11-08-2024 17:00-0400 SaO2% (BldA) [Mass fraction] 97 % Dr. Alejandro Rosales MD Work Phone: 7(281)843-864458 [place] [address] 11-08-2024 17:00-0400 Systolic blood pressure 147 mm[Hg] Dr. Alejandro Rosales MD Work Phone: 2(244)842-681158 [place] [address] 11-08-2024 16:30-0400 Inhaled oxygen flow rate 2 L/min Dr. Alejandro Rosales MD Work Phone: 0(304)931-585758 [place] [address] 11-08-2024 16:13-0400 Body height 162.[address] Alejandro Rosales MD Work Phone: 5(001)917-632758 [place] [address] 11-08-2024 16:13-0400 Body mass index (BMI) [Ratio] 38.9 kg/m2 Dr. Alejandro Rosales MD Work Phone: 6(803)116-051558 [place] [address] 11-08-2024 16:13-0400 Body weight 102.[address] Alejandro Rosales MD Work Phone: 9(465)847-350458 [place] [address] 09-30-2024 15:15-0500 Body temperature 97.7 [degF] Dr. Alejandro Rosales MD Work Phone: 0(309)548-892758 [place] [address] 09-30-2024 15:15-0500 Diastolic blood pressure 64 mm[Hg] Dr. Alejandro Rosales MD Work Phone: 9(441)462-835358 [place] [address] 09-30-2024 15:15-0500 Heart rate 57 /min Dr. Alejandro Rosales MD Work Phone: 7(228)940-653158 [place] [address] 09-30-2024 15:15-0500 Respiratory rate 18 /min Dr. Alejandro Rosaels MD Work Phone: 3(407)890-498758 [place] [address] 09-30-2024 15:15-0500 SaO2% (BldA) [Mass fraction] 92 % Dr. Alejandro Rosales MD Work Phone: 5(839)440-513058 [place] [address] 09-30-2024 15:15-0500 Systolic blood pressure 152 mm[Hg] Dr. Alejandro Rosales MD Work Phone: [facility] 01-06-2023 14:29-0400 Body height 162.[address] Alejandro Rosales Work Phone: [facility] 01-06-2023 14:29-0400 Body mass index (BMI) [Ratio] 38.1 kg/m2 Dr. Alejandro Rosales Work Phone: [facility] 01-06-2023 14:29-0400 Body temperature 96.7 [degF] Dr. Alejandro Rosales Work Phone: [facility] 01-06-2023 14:29-0400 Body weight 100.[address] Alejandro Rosales Work Phone: [facility] 01-06-2023 14:29-0400 Diastolic blood pressure 62 mm[Hg] Dr. Alejandro Rosales Work Phone: [facility] 01-06-2023 14:29-0400 Heart rate 80 /min Dr. Alejandro Rosales Work Phone: [facility] 01-06-2023 14:29-0400 Respiratory rate 17 /min Dr. Alejandro Rosales Work Phone: [facility] 01-06-2023 14:29-0400 SaO2% (BldA) [Mass fraction] 97 % Dr. Alejandro Rosales Work Phone: [facility] 01-06-2023 14:29-0400 Systolic blood pressure 131 mm[Hg] Dr. Alejandro Rosales Work Phone: [facility] 01-02-2023 14:53-0400 Body height 162.[address] Alejandro Rosales Work Phone: [facility] 01-02-2023 14:53-0400 Body mass index (BMI) [Ratio] 38.5 kg/m2 Dr. Alejandro Rosales Work Phone: [facility] 01-02-2023 14:53-0400 Body temperature 97.7 [degF] Dr. Alejandro Rosales Work Phone: [facility] 01-02-2023 14:53-0400 Body weight 101.[address] Alejandro Rosales Work Phone: [facility] 01-02-2023 14:53-0400 Diastolic blood pressure 70 mm[Hg] Dr. Alejandro Rosales Work Phone: [facility] 01-02-2023 14:53-0400 Heart rate 67 /min Dr. Alejandro Rosales Work Phone: [facility] 01-02-2023 14:53-0400 Respiratory rate 16 /min Dr. Alejandro Rosales Work Phone: [facility] 01-02-2023 14:53-0400 SaO2% (BldA) [Mass fraction] 93 % Dr. Alejandro Rosales Work Phone: [facility] 01-02-2023 14:53-0400 Systolic blood pressure 120 mm[Hg] Dr. Alejandro Rosales Work Phone: [facility] 12-17-2022 15:57-0400 Body mass index (BMI) [Ratio] 38.7 kg/m2 Dr. Alejandro Rosales Work Phone: [facility] 12-17-2022 15:57-0400 Body temperature 97.3 [degF] Dr. Alejandro Rosales Work Phone: [facility] 12-17-2022 15:57-0400 Body weight 102.[address] Alejandro Rosales Work Phone: [facility] 12-17-2022 15:57-0400 Diastolic blood pressure 76 mm[Hg] Dr. Alejandro Rosales Work Phone: [facility] 12-17-2022 15:57-0400 Heart rate 62 /min Dr. Alejandro Rosales Work Phone: [facility] 12-17-2022 15:57-0400 Respiratory rate 16 /min Dr. Alejandro Rosales Work Phone: [facility] 12-17-2022 15:57-0400 SaO2% (BldA) [Mass fraction] 92 % Dr. Alejandro Rosales Work Phone: [facility] 12-17-2022 15:57-0400 Systolic blood pressure 137 mm[Hg] Dr. Alejandro Rosales Work Phone: [facility] 11-25-2022 16:02-0400 Body height 162.[address] Alejandro Rosales Work Phone: [facility] 11-25-2022 16:02-0400 Body mass index (BMI) [Ratio] 38.9 kg/m2 Dr. Alejandro Rosales Work Phone: [facility] 11-25-2022 16:02-0400 Body temperature 98.1 [degF] Dr. Alejandro Rosales Work Phone: [facility] 11-25-2022 16:02-0400 Body weight 103.[address] Alejandro Rosales Work Phone: [facility] 11-25-2022 16:02-0400 Diastolic blood pressure 76 mm[Hg] Dr. Alejandro Rosales Work Phone: [facility] 11-25-2022 16:02-0400 Heart rate 77 /min Dr. Alejandro Rosales Work Phone: [facility] 11-25-2022 16:02-0400 Respiratory rate 16 /min Dr. Alejandro Rosales Work Phone: [facility] 11-25-2022 16:02-0400 SaO2% (BldA) [Mass fraction] 91 % Dr. Alejandro Rosales Work Phone: [facility] 11-25-2022 16:02-0400 Systolic blood pressure 146 mm[Hg] Dr. Alejandro Rosales Work Phone: [facility] 10-28-2022 16:03-0400 Body mass index (BMI) [Ratio] 40 kg/m2 Dr. Alejandro Rosales Work Phone: [facility] 10-28-2022 16:03-0400 Body temperature 98.6 [degF] Dr. Alejandro Rosales Work Phone: [facility] 10-28-2022 16:03-0400 Body weight 105.[address] Alejandro Rosales Work Phone: [facility] 10-28-2022 16:03-0400 Heart rate 86 /min Dr. Alejandro Rosales Work Phone: [facility] 10-28-2022 16:03-0400 Respiratory rate 18 /min Dr. Alejandro Rosales Work Phone: [facility] 10-28-2022 16:03-0400 SaO2% (BldA) [Mass fraction] 96 % Dr. Alejandro Rosales Work Phone: [facility] 10-16-2022 14:58-0400 Body temperature 96.6 [degF] Dr. Alejandro Rosales Work Phone: [facility] 10-16-2022 14:58-0400 Diastolic blood pressure 68 mm[Hg] Dr. Alejandro Rosales Work Phone: [facility] 10-16-2022 14:58-0400 Heart rate 67 /min Dr. Alejandro Rosales Work Phone: [facility] 10-16-2022 14:58-0400 Respiratory rate 17 /min Dr. Alejandro Rosales Work Phone: [facility] 10-16-2022 14:58-0400 SaO2% (BldA) [Mass fraction] 95 % Dr. Alejandro Rosales Work Phone: [facility] 10-16-2022 14:58-0400 Systolic blood pressure 127 mm[Hg] Dr. Alejandro Rosales Work Phone: [facility] 04-15-2022 15:38-0400 Body height 162.[address] Alejandro Rosales Work Phone: [facility] Work Phone: 04-15-2022 15:25-0400 Body mass index (BMI) [Ratio] 40.7 kg/m2 Dr. Alejandro Rosales Work Phone: [facility] Work Phone: 04-15-2022 15:25-0400 Body temperature 98 [degF] Dr. Alejandro Rosales Work Phone: [facility] Work Phone: 04-15-2022 15:25-0400 Body weight 107.[address] Alejandro Rosales Work Phone: [facility] Work Phone: 04-15-2022 15:25-0400 Diastolic blood pressure 73 mm[Hg] Dr. Alejandro Rosales Work Phone: [facility] Work Phone: 04-15-2022 15:25-0400 Heart rate 83 /min Dr. Alejandro Rosales Work Phone: [facility] Work Phone: 04-15-2022 15:25-0400 Respiratory rate 83 /min Dr. Alejandro Rosales Work Phone: [facility] Work Phone: 04-15-2022 15:25-0400 SaO2% (BldA) [Mass fraction] 94 % Dr. Alejandro Rosales Work Phone: [facility] Work Phone: 04-15-2022 15:25-0400 Systolic blood pressure 124 mm[Hg] Dr. Alejandro Rosales Work Phone: [facility] Work Phone: 09-05-2021 14:18-0500 Body height 162.[address] Alejandro Rosales Work Phone: [facility] Work Phone: 09-05-2021 14:18-0500 Body mass index (BMI) [Ratio] 41.5 kg/m2 Dr. Alejandro Rosales Work Phone: [facility] Work Phone: 09-05-2021 14:18-0500 Body temperature 97.2 [degF] Dr. Alejandro Rosales Work Phone: [facility] Work Phone: 09-05-2021 14:18-0500 Body weight 109.[address] Alejandro Rosales Work Phone: [facility] Work Phone: 09-05-2021 14:18-0500 Diastolic blood pressure 73 mm[Hg] Dr. Alejandro Rosales Work Phone: [facility] Work Phone: 09-05-2021 14:18-0500 Heart rate 82 /min Dr. Alejandro Rosales Work Phone: [facility] Work Phone: 09-05-2021 14:18-0500 Respiratory rate 15 /min Dr. Alejandro Rosales Work Phone: [facility] Work Phone: 09-05-2021 14:18-0500 SaO2% (BldA) [Mass fraction] 92 % Dr. Alejandro Rosales Work Phone: [facility] Work Phone: 09-05-2021 14:18-0500 Systolic blood pressure 137 mm[Hg] Dr. Alejandro Rosales Work Phone: [facility] Work Phone: Encounters Encounter Date Encounter Type Care Provider Facility Start: 06-06-2025 ambulatory [facility] Facility:[facility] Start: 05-12-2025 ambulatory Alejandro Rosales Facility:[facility] Start: 05-12-2025 ambulatory [facility] Facility:[facility] Start: 05-11-2025 ambulatory [facility] Facility:[facility] Start: 05-05-2025 End: 05-05-[address] Marc Robbins MD -[facility] Work Phone: Start: 05-05-2025 End: 05-05-[address] Alejandro Rosales MD Work Phone: -[facility] Start: 04-26-2025 End: 04-26-[address] Alejandro Rosales MD [facility] Work Phone: Start: 04-26-2025 End: 04-26-[address] Alejandro Rosales MD Work Phone: -[facility] Start: 04-26-[address] Marc Robbins MD -[facility] Start: 04-26-2025 End: 04-26-2025 ambulatory Alejandro Hope Facility:[facility] Start: 04-21-2025 End: 04-21-[address] Marc Robbins MD -[facility] Work Phone: Start: 04-21-2025 End: 04-21-[address] Alejandro Rosales MD Work Phone: -[facility] Start: 04-20-2025 ambulatory Ada Soliman Facility:[facility] Start: 04-20-[address] Ada Soliman DO -Speech Therapy Work Phone: Start: 04-19-2025 End: 04-19-[address] Chris Hand MD -[facility] Work Phone: Start: 04-19-2025 End: 04-19-[address] Chris Hand MD [facility] Start: 04-19-2025 End: 04-19-[address] Alejandro Rosales MD Work Phone: -[facility] Start: 04-19-2025 End: 04-19-2025 ambulatory Alejandro Rosales Facility:[facility] Start: 04-08-[address] Ada Soliman DO -Speech Therapy Work Phone: Start: 04-05-2025 End: 04-05-[address] Alejandro Rosales MD Work Phone: -Sleep Lab Start: 04-05-2025 End: 04-05-2025 Patient encounter procedure REY Hernandes -Sleep Lab Work Phone: Start: 04-05-2025 End: 04-05-2025 ambulatory Alejandro Rosales Facility:[facility] Start: 03-25-2025 End: 03-25-[address] Alejandro Rosales MD Work Phone: -[facility] Start: 03-25-2025 End: 03-25-2025 Patient encounter procedure COMPUTER PROGRAMMING SUPERVISOR Anu Hernandes -[facility] Work Phone: Start: 03-21-[address] Ada Soliman DO -Speech Therapy Work Phone: Start: 03-09-2025 End: 03-09-[address] Marc Kumari MD -[facility] Work Phone: Start: 03-09-2025 End: 03-09-[address] Alejandro Rosales MD Work Phone: -[facility] Start: 03-07-[address] Ada Soliman DO -Speech Therapy Work Phone: Start: 03-01-2025 Encounter for genera l adult medical examination without abnormal findings Anu Hernandes [facility] Start: 02-25-2025 End: 02-25-[address] Alejandro Rosales MD Work Phone: -[facility] Start: 02-25-2025 End: 02-25-[address] Alejandro Rosales MD -[facility] Work Phone: Start: 02-25-2025 End: 02-25-2025 ambulatory Alejandro Rosales Facility:[facility] Start: 02-23-[address] Ada Soliman DO -Speech Therapy Work Phone: Start: 02-22-2025 End: 02-22-[address] Alejandro Rosales MD Work Phone: -Sleep Lab Start: 02-22-2025 End: 02-22-2025 Patient encounter procedure COMPUTER PROGRAMMING SUPERVISOR Anu Hernandes -Sleep Lab Work Phone: Start: 02-22-2025 End: 02-22-2025 ambulatory Alejandro Hope Facility:[facility] Start: 02-16-[address] Ada Soliman DO -Speech Therapy Work Phone: Start: 02-09-2025 End: 02-09-[address] Alejandro Rosales MD Work Phone: -Cat Scan [facility] Start: 02-09-2025 End: 02-09-2025 Patient encounter procedure COMPUTER PROGRAMMING SUPERVISOR Anu Greta -Cat Scan [facility] Work Phone: Start: 02-09-2025 End: 02-09-2025 ambulatory Alejandro Rosales Facility:[facility] Start: 02-03-2025 ambulatory Alejandro Rosales Facility:[facility] Start: 02-03-2025 Non-patient / Non-visit Dr. Wally ireland DO -[facility] Start: 02-01-2025 End: 02-01-[address] Alejandro Rosales MD Work Phone: -Pulmonary Services/Neurology Start: 02-01-2025 End: 02-01-2025 Patient encounter procedure COMPUTER PROGRAMMING SUPERVISOR Anu Hernandes -Pulmonary Services/Neurology Work Phone: Start: 02-01-2025 End: 02-01-2025 ambulatory Alejandro Rosales Facility:[facility] Start: 01-28-[address] Ada Soliman DO -Speech Therapy Work Phone: Start: 01-21-[address] Ada Soliman DO -Speech Therapy Work Phone: Start: 01-20-2025 End: 01-20-[address] Alejandro Rosales MD Work Phone: [facility] Work Phone: Start: 01-20-2025 End: 01-20-2025 Patient encounter procedure COMPUTER PROGRAMMING SUPERVISOR Anu Hernandes -Sleep Lab Work Phone: Start: 01-19-2025 End: 01-20-[address] Alejandro Rosales MD Work Phone: [facility] Work Phone: Start: 01-19-2025 End: 01-19-2025 Patient encounter procedure COMPUTER PROGRAMMING SUPERVISOR Anu Hernandes -Pulmonary Services/Neurology Work Phone: Start: 01-19-2025 End: 01-19-2025 ambulatory Alejandro Hope [facility] Start: 12-24-2024 End: 12-24-2024 Patient encounter procedure COMPUTER PROGRAMMING SUPERVISOR Anu Hernandes -[facility] Work Phone: Start: 12-24-2024 End: 12-24-2024 ambulatory Alejandro Rosales Facility:[facility] Start: 12-23-2024 End: 12-23-[address] Kevan Jama MD -[facility] Work Phone: Start: 12-23-2024 End: 12-23-2024 ambulatory Kevan Jama Facility[facility] Start: 12-23-2024 ambulatory Alejandro Rosales Facility:[facility] Start: 12-19-2024 Non-patient / Non-visit Dr. Zainab Castro MD -[facility] Work Phone: Start: 12-19-2024 Non-patient / Non-visit Dr. Kevan antunez MD -[facility] Start: 12-18-2024 Non-patient / Non-visit Dr. Zainab Castro MD -[facility] Work Phone: Start: 12-18-2024 Non-patient / Non-visit Dr. Kevan antunez MD -[facility] Start: 12-17-2024 End: 12-19-2024 ambulatory Alejandro Rosales Facility:[facility] Start: 12-17-2024 End: 12-19-2024 Evaluation and management of inpatient Dr. Shayla Castro MD -Medical Surgical 3 Work Phone: Start: 12-15-[address] Ada Soliman DO -Speech Therapy Work Phone: Start: 12-15-2024 End: 12-15-[address] Alejandro Rosales MD Work Phone: [facility] Work Phone: Start: 12-15-2024 End: 12-15-[address] Jamey Harrington MD -Cardiovascular Services Work Phone: Start: 12-15-2024 End: 12-15-2024 ambulatory Alejandro Hope Facility:[facility] Start: 12-09-2024 End: 12-09-[address] Marc Robbins MD -[facility] Work Phone: Start: 12-09-2024 End: 12-09-2024 ambulatory [facility] Facility[facility] Start: 12-07-2024 End: 12-07-[address] Michelle Paige MD -[facility] Work Phone: Start: 12-07-2024 End: 12-07-2024 Patient encounter procedure Latoya Marie NP-Jeremias -[facility] Work Phone: Start: 12-07-2024 End: 12-07-2024 ambulatory Alejandrojose Rosales Facility[facility] Start: 11-26-2024 End: 11-26-[address] Ada Soliman DO -Sleep Lab Work Phone: Start: 11-26-2024 Non-patient / Non-visit Dr. Mary Lou Soliman [facility] Work Phone: Start: 11-26-2024 End: 11-26-2024 ambulatory Alejandro Rosales Facility:[facility] Start: 11-23-2024 Non-patient / Non-visit Dr. Mary Lou Soliman [facility] Work Phone: Start: 11-22-2024 Non-patient / Non-visit Dr. Mary Lou Soliman [facility] Work Phone: Start: 11-19-2024 Non-patient / Non-visit Dr. Mary Lou Soliman DO [facility] Work Phone: Start: 11-17-2024 Non-patient / Non-visit Dr. Mary Lou Soliman [facility] Work Phone: Start: 11-15-2024 Non-patient / Non-visit Dr. Mary Lou Soliman [facility] Work Phone: Start: 11-11-2024 ambulatory Rg Chi Kris Facility:[facility] Start: 11-11-2024 End: 11-26-2024 Evaluation and management of inpatient Dr. Ada Soliman DO -Rehab Unit Work Phone: Start: 11-08-2024 End: 11-08-2024 ambulatory [facility] Start: 11-08-2024 End: 11-11-2024 Evaluation and management of inpatient Audelia Wood MD Work Phone: [phone] Comment on above: Stroke Start: 11-08-2024 End: 11-08-2024 Emergency department patient visit Dr. Alejandro Rosales MD Work Phone: -Emergency Department Work Phone: Start: 10-02-2024 ambulatory Alejandro Rosales Facility:[facility] Start: 09-30-2024 End: 09-30-[address] Kevan Jama MD -[facility] Work Phone: Start: 09-30-2024 End: 09-30-2024 ambulatory Kevan Jama Facility:[facility] Start: 09-22-2024 End: 09-22-[address] Alejandro Rosales MD -Outpatient Breast Imaging Work Phone: Start: 09-21-2024 End: 10-01-[address] Alejandro Rosales MD -Laboratory, [facility] Work Phone: Start: 09-21-2024 End: 09-21-[address] Kevan Jama MD -[facility] Work Phone: Start: 09-21-2024 End: 10-01-2024 ambulatory Alejandro Rosales Facility:[facility] Start: 09-17-2024 End: 09-17-[address] Alejandro Rosales MD -Laboratory, [facility] Work Phone: Start: 09-17-2024 End: 09-17-2024 ambulatory Alejandro Rosales Facility:[facility] Start: 09-14-2024 End: 09-14-[address] Alejandro Rosales MD -Laboratory, [facility] Work Phone: Start: 09-13-2024 End: 09-14-2024 ambulatory Alejandro Rosales Facility:[facility] Start: 01-06-2023 End: 01-06-[address] Alejandro Rosales Work Phone: [facility] Work Phone: Start: 01-02-2023 End: 01-02-[address] Alejandro Rosales Work Phone: [facility] Start: 12-31-2022 End: 12-31-[address] Alejandro Rosales Work Phone: [facility] Work Phone: Start: 12-31-2022 End: 12-31-[address] Alejandro [facility]ales Work Phone[facility] Start: 12-25-2022 End: 12-25-[address] Alejandro Rosales Work Phone: [facility] Work Phone: Start: 12-25-2022 End: 12-25-[address] Alejandro Rosales Work Phone: [facility] Start: 12-17-[address] Alejandro Rosales Work Phone: [facility] Start: 12-17-2022 End: 12-17-[address] Alejandro Rosales Work Phone: [facility] Start: 12-04-2022 End: 12-04-[address] Alejandro Rosales Work Phone: [facility] Start: 11-25-2022 End: 11-25-[address] Alejandro Rosales Work Phone: [facility] Start: 11-20-2022 End: 11-20-[address] Alejandro Rosales Work Phone: [facility] Work Phone: Start: 11-20-2022 End: 11-20-[address] Alejandro Rosales Work Phone: [facility] Start: 10-28-2022 End: 10-28-[address] Alejandro Rosales Work Phone: [facility] Start: 10-16-[address] Alejandro Rosales Work Phone: [facility] Start: 10-16-2022 End: 10-16-[address] Alejandro Rosales Work Phone: [facility] Start: 10-07-2022 End: 10-07-2022 ambulatory [facility] Work Phone: Start: 10-07-2022 End: 10-07-2022 Patient encounter procedure [facility] Start: 07-04-2022 End: 07-04-[address] Alejandro Rosales Work Phone: [facility] Work Phone: Start: 07-04-2022 End: 07-04-[address] Alejandro Rosales Work Phone: [facility] Start: 06-28-2022 End: 06-28-[address] Alejandro Rosales Work Phone: [facility] Work Phone: Start: 06-28-2022 End: 06-28-[address] Alejandro Rosales Work Phone: [facility]-Cardiovascula r Services Start: 04-15-2022 End: 04-15-[address] Alejandro Rosales Work Phone: [facility] Start: 04-05-2022 End: 04-05-2022 ambulatory [facility] Work Phone: Start: 04-05-2022 End: 04-05-2022 Patient encounter procedure [facility] Start: 02-19-2022 End: 02-19-2022 Patient encounter procedure [facility] Start: 12-20-2021 End: 12-20-[address] Alejandro Rosales Work Phone: [facility] Start: 09-14-2021 End: 09-14-[address] Alejandro Rosales Work Phone: [facility] Start: 09-14-2021 End: 09-14-[address] Alejandro Rosales Work Phone: [facility] Start: 09-05-2021 End: 09-05-[address] Alejandro Rosales Work Phone: [facility] Start: 09-04-2021 End: 09-04-[address] Alejandro Rosales Work Phone: [facility] Start: 08-31-2021 End: 08-31-[address] Alejandro Rosales Work Phone: [facility] Start: 08-15-[address] Philomena Rosales Work Phone: [facility] Start: 08-15-2021 [address] examin ation done Dr. Alejandro Rosales MD Work Phone: [facility] Start: 04-06-2021 End: 04-06-2021 Subsequent hospital visit by physician [facility] Work Phone: Radiology Comment on above: [...] Work Phone: Comment on above: Performed at: [place] [id number] Director: Taiwo Quintero PhD, Phone: [phone] Start: 09-14-2024 Electrophoresis: [id number] Dr. Alejandro Rosales MD Work Phone: Start: 09-14-2024 Electrophoresis: [id number] Dr. Alejandro Rosales MD Work Phone: Start: [...] ankle complete minimum 3 views Jeffrey Robles APRN.[employer] Work Phone: Plan of Treatment Date Care Activity Detail Author Start: 11-08-2029 Lipid panel LIPID SCREENING [facility] Start: 10-11-2025 Urine microalbumin profile DTa P,Tdap,Td Vaccine (2 - Td or Tdap) [facility] Start: 04-26-2025 Patient encounter procedure Registered Clinical -[facility] Work Phone: Start: 04-26-2025 PET study for locali zation of tumor PET/CT Tumor Base -Thigh Subs [facility] Start: 04-26-2025 Registered Recurring Registered Recu [facility] Start: 04-19-2025 End: 04-19-2025 Evaluation of diagnostic study results [facility] Start: 04-04-2025 Influenza vaccination INFLUENZ A VACCINE (Season Ended) [facility] Start: 02-01-2025 Walking distance 6 minutes [facility] Start: 12-23-2024 Patient referral [facility] Work Phone: Start: 12-19-2024 Patient discharge [facility] Start: 12-18-2024 [facility] Start: 12-18-2024 Inhalation therapy procedure [facility] Start: 12-17-2024 [facility] Start: 12-17-2024 Anaerobic Culture Anaerobic Culture [facility] Start: 12-17-2024 Body Fluid Culture Body Fluid Cultur e [facility] Start: 12-17-2024 Microscopic observat ion [Identifier] in Unspecified specimen by Gram stain [facility] Start: 12-17-2024 Following clinical p athway protocol [facility] Start: 12-17-2024 Assessment of risk o f venous thromboembolism [facility] Start: 12-17-2024 Care regimes management [facility] Start: 12-17-2024 Consultation [facility] Start: 12-17-2024 Insertion of cathete r into peripheral vein [facility] Start: 12-17-2024 Measuring intake and output [facility] Start: 12-17-2024 Notification of physician [facility] Start: 12-17-2024 Providing care accor ding to standard [facility] Start: 12-17-2024 Provision of activit y privileges [facility] Start: 12-17-2024 Referral to occupati onal therapist [facility] Start: 12-17-2024 Referral to service [facility] Start: 12-17-2024 End: 12-17-2024 [facility] Start: 12-17-2024 Verification routine [facility] Start: 12-17-2024 Admission procedure [facility] Start: 12-17-2024 End: 12-17-2024 Microbial culture, body fluid [facility] Start: 11-26-2024 Patient discharge [facility] Start: 11-22-2024 [facility] Start: 11-17-2024 End: 11-17-2024 [facility] Start: 11-16-2024 [facility] Start: 11-11-2024 Recommendation to co ntinue with treatment [facility] Start: 11-11-2024 Referral to service [facility] Start: 11-11-2024 Admission procedure [facility] Start: 11-11-2024 Measuring intake and output [facility] Start: 11-11-2024 Patient referral to dietitian [facility] Start: 11-11-2024 Referral to occupati onal therapist [facility] Start: 11-11-2024 Vital signs measurements [facility] Start: 11-11-2024 End: 11-11-2024 [facility] Start: 11-11-2024 Speech therapy assessment [facility] Start: 11-08-2024 Oxygen therapy [facility] Start: 11-08-2024 [facility] Start: 04-04-2024 COVID-19 VACCINE ( season) COVID-19 VACCINE () [facility] Start: 04-04-2024 Covid-19 Vaccine ( season) Covid-19 Vaccine ( season) [facility] Start: 04-04-2024 Influenza vaccination Influenza Vacc ine (#1) [facility] Start: 08-04-2023 Advance Directive Discussion Advance Directive Discussion [facility] Start: 2017 Pneumococcal Vaccine : 65+ (2 of 2 - PPSV23 or PCV20) Pneumococcal Vaccine: 65+ (2 of 2 - PPSV23 or PCV20) [facility] Start: 2017 Screening for osteoporosis Bone Dens ity Screening [facility] Start: 12-09-2015 Shingrix Vaccine (2 of 3) Sunshine grix Vaccine (2 of 3) [facility] Start: 2012 RSV Vaccine (1 - 1-d ose 60+ series) RSV Vaccine (1 - 1-dose 60+ series) [facility] Start: 2012 RSV VACCINE (1 - Ris k 60-74 years 1-dose series) RSV VACCINE (1 - Risk 60-74 years 1-dose series) [facility] Start: 2002 Pneumococcal vaccination PNEUM OCOCCAL VACCINE SERIES (1 of 1 - PCV) [facility] Start: 2002 Zoster vaccine hzv l tom for subcutaneous use ZOSTER (SHINGLES) VACCINE (1 of 2) [facility] Start: 1997 Diabetes Screening Diabetes Screenin g [facility] Start: 1997 Lipid panel Lipid Screening [facility] Start: 1997 Screening for malign ant neoplasm of colon [facility] Start: 1992 Screening for malign ant neoplasm of breast [facility] Start: 1973 Screening for malign ant neoplasm of cervix CERVICAL CANCER SCREENING DISCUSSION [facility] Start: 1971 Third diphtheria, te tanus and acellular pertussis (DTaP) vaccination TDAP (ADULT) [facility] Start: 1970 Anxiety Screening Anxiety Screening [facility] Start: 1970 Depression Screening Depression Scre [facility] Start: 1970 Hepatitis C screening Hepatitis C Sc reening [facility] Start: 1952 Hepatitis C screening HEPATITI S C VIRUS SCREENING [facility] Start: 1952 Screening for osteoporosis DEXA SCAN DISCUSSION [facility] Start: 1952 Tetanus vaccination TETANUS [facility] Start: 1952 Thyroid stimulating hormone measurement TSH [facility] Anion gap in Serum o r Plasma [facility] Anion gap in Serum o r Plasma [facility] Anion gap in Serum o r Plasma [facility] Bacteria identified in Body fluid by Culture [facility] Bacteria identified in Unspecified specimen by Anaerobe culture [facility] BUN/Creatinine ratio [facility] BUN/Creatinine ratio [facility] BUN/Creatinine ratio [facility] Calcium [Mass/volume ] in Serum or Plasma [facility] Calcium [Mass/volume ] in Serum or Plasma [facility] Calcium [Mass/volume ] in Serum or Plasma [facility] Carbon dioxide, tota l [Moles/volume] in Central venous blood [facility] Carbon dioxide, tota l [Moles/volume] in Central venous blood [facility] Carbon dioxide, tota l [Moles/volume] in Central venous blood [facility] Colonoscopy [facility] Creatinine [Mass/vol ume] in Serum or Plasma [facility] Creatinine [Mass/vol ume] in Serum or Plasma [facility] Creatinine [Mass/vol ume] in Serum or Plasma [facility] Erythrocyte mean corpuscular volume determination [facility] Erythrocyte mean corpuscular volume determination [facility] Erythrocyte mean corpuscular volume determination [facility] Glucose [Mass/volume ] in Serum or Plasma [facility] Glucose [Mass/volume ] in Serum or Plasma [facility] Glucose [Mass/volume ] in Serum or Plasma [facility] Hematocrit [Volume Fraction] of Blood [facility] Hematocrit [Volume Fraction] of Blood [facility] Hematocrit [Volume Fraction] of Blood [facility] Hemoglobin [Mass/vol ume] in Blood [facility] Hemoglobin [Mass/vol ume] in Blood [facility] Hemoglobin [Mass/vol ume] in Blood [facility] Leukocytes [#/volume ] in Blood [facility] Leukocytes [#/volume ] in Blood [facility] Leukocytes [#/volume ] in Blood [facility] Mean corpuscular hemoglobin concentration determination [facility] Mean corpuscular hemoglobin concentration determination [facility] Mean corpuscular hemoglobin concentration determination [facility] Mean corpuscular hemoglobin determination [facility] Mean corpuscular hemoglobin determination [facility] Mean corpuscular hemoglobin determination [facility] Measurement of renal function [facility] Measurement of renal function [facility] Measurement of renal function [facility] MR Brain WO and W co ntrast IV [facility] Neutrophil count [facility] Neutrophil count [facility] Neutrophil count [facility] Neutrophil percent differential count [facility] Neutrophil percent differential count [facility] Neutrophil percent differential count [facility] NM Heart Views W str ess and W radionuclide IV [facility] Patient Education [facility] Work Phone: Patient referral [facility] Work Phone: Platelets [#/volume] in Blood [facility] Platelets [#/volume] in Blood [facility] Platelets [#/volume] in Blood [facility] Potassium measurement [facility] Potassium measurement [facility] Potassium measurement [facility] [facility] PT Unspecified body region [facility] PT Unspecified body region [facility] Red blood cell count [facility] Red blood cell count [facility] Red blood cell count [facility] Red cell distributio n width determination [facility] Red cell distributio n width determination [facility] Red cell distributio n width determination [facility] Serum chloride measurement [facility] Serum chloride measurement [facility] Serum chloride measurement [facility] Sodium measurement [facility] Sodium measurement [facility] Sodium measurement [facility] End: 11-08-[address] [facility] Comment on above: One Time for 1 Occur rences starting 11/08/2024 until 11/08/2024 Thyroid stimulating hormone measurement [facility] Urea nitrogen [Mass/volume] in Serum or Plasma [facility] Urea nitrogen [Mass/volume] in Serum or Plasma [facility] Urea nitrogen [Mass/volume] in Serum or Plasma [facility] Vancomycin [Mass/vol ume] in Serum or Plasma --trough [facility] XR Hand GE 3 Views [facility] Immunizations Immunization Date Immunization Notes Care Provider Fa cility 08-25-2023 Pfizer Covid-19 (Comirnaty) Dr. Alejandro Rosales MD Work Phone: [facility] 07-25-2022 Covid Pfizer Bivalen t Booster Dr. Alejandro Rosales MD Work Phone: [facility] 05-25-2021 Covid (Pfizer) Dr. Alejandro bishop MD Work Phone: [facility] 01-03-2021 Covid (Moderna) Dr. Alejandro santos MD Work Phone: [facility] 12-01-2020 Covid (Moderna) Dr. Alejandro santos MD Work Phone: [facility] 05-05-2020 influenza virus vaccine, unspecified formulation [facility] [place] Work Phone: [facility] Payers Date Payer Category Payer Medicare (Managed Care) MEDICARE HUA PPO [id number] 2022 Medicare [id number] 2022 Self-pay [id number] 2017 Medicare MEDICARE MEDICAR E A AND B [id number] 2017-Present [phone] [place] [address] Medicare [id number] 2000 Unknown [id number] 2000 Unknown [facility] [id number] 2000-Present [phone] [address] [address] [place] [address] Indemnity [id number]. 2.7.3.599016.315 1950 Unknown [id number] 2.16.840.1.290788.3.579. 2.732 1950 Unknown [id number] 2..840.1.530801.3.579. 2.594 Medicare [id number] Medicare MEDICARE PART A B [id number] Medicare [id number] Unknown [id number] 16.840.1.001033.3.579. 2.462 Unknown [id number] 2.16.840.1.474299.3.579. 2.462 Unknown [id number] 2.16.840.1.770615.3.579. 2.462 Unknown [id number] 2.16.840.1.892860.3.579. 2.462 Unknown [id number] 2.16840.1.310541.3.579. 2.462 Unknown [id number] 2.16.840.1.389752.3.579. 2.462 Unknown [id number] 2.840.1.827302.3.579. 2.462 Unknown [id number] 2.840.1.889062.3.579. 2.462 Unknown [id number] 2.840.1.254137.3.579. 2.462 Unknown [id number] 2.840.1.690294.3.579. 2.462 Unknown [id number] 2.840.1.810692.3.579. 2.462 Unknown [id number] 2.840.1.478923.3.579. 2.462 Unknown [id number] 2.840.1.639880.3.579. 2.462 Unknown [id number] 2.840.1.053442.3.579. 2.462 Unknown [id number] 2.840.1.730334.3.579. 2.462 Unknown [id number] 2.840.1.271540.3.579. 2.462 Unknown [id number] 2.840.1.336434.3.579. 2.462 Unknown [id number] 2.840.1.874510.3.579. 2.462 Unknown [id number] 2.840.1.886974.3.579. 2.462 Unknown [id number] 2.16.840.1.144110.3.579. 2.462 Unknown [id number] 2.16.840.1.706196.3.579. 2.462 Unknown [id number] 2.16.840.1.786913.3.579. 2.462 Unknown [id number] 2.16.840.1.890173.3.579. 2.462 Unknown [id number] 2.16.840.1.983415.3.579. 2.462 Unknown [id number] 2.16.840.1.623448.3.579. 2.462 Unknown [id number] 2.16.840.1.393135.3.579. 2.462 Unknown [id number] 2.16.840.1.369660.3.579. 2.462 Unknown [id number] 2.840.1.731009.3.579. 2.462 Unknown [id number] 2.16840.1.104786.3.579. 2.462 Unknown [id number] 2.16840.1.853619.3.579. 2.462 Unknown [id number] 2.16840.1.745277.3.579. 2.462 Unknown [id number] 2.16840.1.647219.3.579. 2.462 Unknown [id number] 2.16840.1.356239.3.579. 2.462 Unknown [id number] 2.16840.1.637803.3.579. 2.462 Unknown [id number] 2.16.840.1.269976.3.579. 2.462 Unknown [id number] 2.16.840.1.287590.3.579. 2.462 Unknown [id number] 2.16.840.1.127914.3.579. 2.462 Unknown [id number] 2.16840.1.545424.3.579. 2.462 Unknown [id number] 2.16.840.1.892916.3.579. 2.462 Unknown [id number] 2.16.840.1.041689.3.579. 2.462 Unknown [id number] 2.16.840.1.308495.3.579. 2.462 Unknown [id number] 2.16.840.1.819580.3.579. 2.462 Unknown [id number] 2.16.840.1.748359.3.579. 2.462 Unknown [id number] 2.16.840.1.715081.3.579. 2.462 Unknown [id number] 2.16.840.1.169397.3.579. 2.462 Unknown [id number] 2.16.840.1.134766.3.579. 2.462 Unknown [id number] 2.16.840.1.024834.3.579. 2.462 Unknown [id number] 2.16.840.1.936214.3.579. 2.462 Unknown [id number] 2.16.840.1.871928.3.579. 2.462 Unknown [id number] 2.16.840.1.642518.3.579. 2.462 Unknown [id number] 2.16.840.1.632943.3.579. 2.462 Unknown [id number] 2.16.840.1.383507.3.579. 2.462 Unknown [id number] 2.16.840.1.464001.3.579. 2.462 Unknown [id number] 2.16.840.1.729296.3.579. 2.462 Social History Date Type Detail Facility Start: 08-15-2021 End: 02-13-2023 Tobacco smoking status KYIS Unknown if ever smoked [facility] Start: 1950 Sex Assigned At Female [facility] Start: 01-12-2019 End: 04-22-2025 Tobacco smoking status NHIS Ex-smoker [facility] End: 08-04-2014 History of tobacco use Current smoker [facility] End: 08-04-2014 History of tobacco use Cigarette Smoker [facility] Start: 01-12-2019 Tobacco use and exposure Smokeless tobacco non-user [facility] Start: 04-06-2021 Alcoholic beverage intake Ex-drinker (finding) [facility] Start: 04-06-2021 End: 11-09-2024 History of Social function [facility] Start: 04-06-2021 End: 11-09-2024 Tobacco use panel [facility] National Score (1-100), lower number is lower risk Not on file [facility] Start: 1950 Sex assigned at Not on file [place] Start: 03-07-2021 End: 04-06-2021 Exposure to SARS-CoV-2 (event) Not sure [facility] Start: 11-08-2024 End: 11-08-2024 Sex Female (finding) [facility] NEGATED: Highlighted row Not [facility] Medical Equipment Procedure Code Equipment Code [...] Assessment Result Facility 12-19-2024 Functional status Chair [facility] Work Phone: 12-18-2024 Functional status Activity Abili ty Standby Assist [facility] Work Phone: 12-18-2024 Functional status Ambulates;Bath room Privilege;Back to bed [facility] Work Phone: 11-26-2024 Functional status Chair [facility] Work Phone: Mental Status Date Assessment Result Facility 12-19-2024 Cognitive function Voice/Name [facility] Work Phone: 12-18-2024 Cognitive function Voice/Name [facility] Work Phone: 11-26-2024 Cognitive function Voice/Name [facility] Work Phone: 11-08-2024 Cognitive function Voice/Name [facility] Work Phone: Clinical Notes 04-06-2021 to 04-21-2025 Note Date & Type Note Facility 04-21-2025 Progress note [facility] 03-09-2025 Evaluation note Diagnosis Onset Date Resolution [...] 3:04pm Colon cancer chronic April 212024 3:04pm [facility] Work Phone: 1(402) 995-441908-06-2025 Evaluation note* Diagnosis Onset Date Resolution Status [...] Mediastinal lymphadenopathy chronic May 05, 2025 3:52pm [facility] Work Phone: 1(566) 154-784207-10-2025 Radiology Diagnostic study note [facility] Imaging Services [address] [place] [address] Chest without Contrast MR#: [id number] Acct: [id number] Name: ELIZABETH HENLEY Rep #: [id number] : 1950 F 74 From: Nadege Joy MD PCP: Dr. Alejandro Rosales MD Status: REG CLI Study:Chest without Contrast Date of Exam: 02/09/25 Exam# [id number] Ordering Dr: Anu Hernandes COMPUTER PROGRAMMING SUPERVISOR-C PROCEDURE: CHEST WITHOUT CONTRAST, 02/09/2025 REASON FOR [...] evaluated. Lobulated renal contours with multifocalcortical scarring, PVYH-fcbvcce-llpt-RIGHT.. Small renal cyst on the RIGHT. Gallbladder [...] 6. Additional description as above. Reading Location: [id number] CC: Dr. Alejandro Rosales MD; Anu Hernandes NP ~ [employer] Specialist: Signed [facility]07-03-2025 Procedure notey [facility] Pulmonary Services/Neurology [address] [facility] [place] [address] MR#: [id number] Acct: [id number] Name: ELIZABETH HENLEY Rep #:[id number] : 1950 74 From: Wally Rodriges DO Referring Dr: Anu Hernandes COMPUTER PROGRAMMING SUPERVISOR-C Status: REG CLI Location: PSN Date: Sex: F C PSN 6 Minute Walk Test 6 Minute Walk Test 6 Minute Walk Test: 6 Minute Walk Test PSN:6-Minute Walk Test Start: 02/01/25 13:14 Freq: Status: Active Protocol: RESP.6MINW Document 02/01/25 13:14 NIRU (Rec: 02/01/25 13:22 SFENTON [id number]) 6 Minute Walk Test Date Performed 02/01/25 [...] Dictated: 02/03/25 1026 Date Transcribed: 02/03/25 1026 [employer] Specialist: Dr. Wally Rodriges, DO Signed [facility]05-22-2025 Evaluation note* Diagnosis Onset Date Resolution [...] of breath acute Augus t 2024 3:20pm [facility] Work Phone: 1(214) 471-919605-18-2025 Progress note Author Kevan Jama [facility] Note Date/Time December 19, 2024 11:35 am [facility] Medical Records Department [address] [place] [address] Progress Note - Surgery 12/19/24 1134 MR#: [id number] Acct: [id number] Name: JENNIFERELIZABETH Rep #:[id number] : 1950 74 From: Kevan Jama MD PCP: Dr. Alejandro Rosales MD Status:ADM IN Location: [place] KH304-2 Subjective Subjective Doing well. No wrist pain [...] (Auto) 75.3 H, Lymph % (Auto) 14.6 L,Patillas % (Auto) 7.5, Eos % (Auto) 1.9, [...] as OP Charges/Coding Visit Charges Inpatient E&M: 99706 Subs Hosp L1 12/19/24 1135 <Electronically signed by Kevan Jama MD> Cosigner Signature (if applicable): CC: ~ Signed [facility] Work Phone: 1(126) 494-976105-18-2025 Discharge summary [facility] Medical Records Department [address] [place] [address] Discharge Summary 12/19/24 1316 MR#: [id number] Acct: [id number] Name: ELIZABETH HENLEY Rep #:[id number] : 1950 74 From: Shayla Castro MD PCP: Dr. Alejandro Rosales MD Status:ADM IN Location: [place] [address] Providers Date of Admission: 12/17/24 Date of [...] i the ED were BP of 129/66, AZ of 82, RR of 14 and temp [...] (Auto) 75.3 H, Lymph % (Auto) 14.6 L,Patillas % (Auto) 7.5, Eos % (Auto) 1.9, [...] Self Care Charges/Coding Visit Charges Inpatient E&M: 73199 Disch Hosp >30min 12/19/24 1327 Cosigner Signature (if applicable): CC: Dr. Alejandro Rosales MD; Dr. Shayla Castro MD~ Signed [facility]05-18-2025 Discharge summary [facility] Medical Records Department [address] [facility] [place] [address] Instructions for Home/Discharge Instructions 12/19/24 1315 MR#: [id number] Acct: [id number] Name: ELIZABETH HENLEY Rep #:[id number] : 1950 74 From: Shayla Castro MD [...] MD; Dr. Kevan Jama MD ~ Signed [facility]18[facility] note [facility] Medical Records Department [address] [place] [address] Progress Note - Surgery 12/19/24 1134 MR#: [id number] Acct: [id number] Name: ELIZABETH HENLEY Rep #:[id number] : 1950 74 From: Kevan Jama MD PCP: Dr. Alejandro Rosales MD Status:ADM IN Location: [place] WF786-0 Subjective Subjective Doing well. No wrist pain [...] (Auto) 75.3 H, Lymph % (Auto) 14.6 L,Patillas % (Auto) 7.5, Eos % (Auto) 1.9, [...] as OP Charges/Coding Visit Charges Inpatient E&M: 75589 Subs Hosp L1 12/19/24 1135 Cosigner Signature (if applicable): CC: ~ Signed [facility]05-18-2025 Consult note Author Abhijeet Oakes [facility] Note Date/Time December 19, 2024 1:13a [facility] Medical Records Department [address] [place] [address] Pharmacokinetic/Renal -Consult 12/19/24 0112 MR#: [id number] Acct: [id number] Name: ELIZABETH HENLEY Velasquez Rep #:[id number] : 1950 74 From: Abhijeet Lockett od PCP: Dr. Alejandro Rosales MD Status:ADM IN Location: [place] [address] Consult Antibiotic Management Pharmacy has been consulted [...] Signature (if applicable): Date CC: ~ Signed [facility] Work Phone: 1(712) 777-935105-18-2025 Consult note [facility] Medical Records Department [address] [place] [address] Pharmacokinetic/Renal -Consult 12/19/24111 MR#: [id number] Acct: [id number] Name: ELIZABETH HENLEY Rep #:[id number] : 1950 74 From: Abhijeet Lockett od PCP: Dr. Alejandro Rosales MD Status:ADM IN Location: [place] [address] Consult Antibiotic Management Pharmacy has been consulted [...] Signature (if applicable): Date CC: ~ Signed [facility]05-17-2025 Progress note Author Shayla [facility] Note Date/Time December 18, 2024 2:31p m [facility] Medical Records Department [address] [place] [address] Progress Note 12/18/24 1319 MR#: [id number] Acct: [id number] Name: ELIZABETH HENLEY Rep #:[id number] : 1950 74 From: Shayla Castro MD PCP: Dr. Alejandro Rosales MD Status:ADM IN Location: [place]3 BP526-3 Subjective Subjective Patient seen and examined. She [...] (Auto) 72.6 H, Lymph % (Auto) 17.3 L,Patillas % (Auto) 7.5, Eos % (Auto) 1.7, [...] code * Charges/Coding Visit Charges Inpatient E&M: 32910 Subs Hosp L2 12/18/24 1431 <Electronically signed by Shayla Castro MD> Shayla Castro MD Cosigner Signature (if applicable): CC: ~ Signed [facility] Work Phone: 1(600) 723-136505-17-2025 Progress note [facility] Medical Records Department [address] [place] [address] Progress Note 12/18/24 1319 MR#: [id number] Acct: [id number] Name: ELIZABETH HENLEY Rep #:[id number] : 1950 74 From: Shayla Castro MD PCP: Dr. Alejandro Rosales MD Status:ADM IN Location: [place] [address] Subjective Subjective Patient seen and examined. She [...] (Auto) 72.6 H, Lymph % (Auto) 17.3 L,Patillas % (Auto) 7.5, Eos % (Auto) 1.7, [...] code * Charges/Coding Visit Charges Inpatient E&M: 05788 Subs Hosp L2 12/18/24 1431 Shayla Castro MD Cosigner Signature (if applicable): CC: ~ Signed [facility]05-17-2025 Progress note Author Kevan Jama [facility] Note Date/Time December 18, 2024 8:23a m [facility] Medical Records Department [address] [place] [address] Progress Note 12/18/24 0820 MR#: [id number] Acct: [id number] Name: JENNIFERELIZABETH A Rep #:[id number] : 1950 74 From: Kevan Jama MD PCP: Dr. Alejandro Rosales MD Status:ADM IN Location: [place] KI657-4 Subjective Subjective Doing well. No pain in [...] (Auto) 74.3 H, Lymph % (Auto) 14.9 L,Patillas % (Auto) 8.6, Eos % (Auto) 1.1, [...] (Auto) 72.6 H, Lymph % (Auto) 17.3 L,Pat[place] % (Auto) 7.5, Eos % (Auto) 1.7, [...] 12/17/24 08:27 IMPRESSION: NEGATIVE WRIST Reading Location: [facility] Physical Exam Narrative Right upper Extremity [...] Multi Select Codes Visit Charges Visit Charges: 79115 Subs Hosp L1 12/18/24 0823 <Electronically signed by Kevan Jama MD> Kevan Jama MD Cosigner Signature (if applicable): CC: ~ Signed [facility] Work Phone: 1(855) 533-793605-17-2025 Progress note [facility] Medical Records Department [address] [place] [address] Progress Note 12/18/24 08 MR#: [id number] Acct: [id number] Name: ELIZABETH HENLEY Rep #:[id number] : 1950 74 From: Kevan Jama MD PCP: Dr. Alejandro Rosales MD Status:ADM IN Location: [place] VT125-1 Subjective Subjective Doing well. No pain in [...] (Auto) 74.3 H, Lymph % (Auto) 14.9 L,Patillas % (Auto) 8.6, Eos % (Auto) 1.1, [...] (Auto) 72.6 H, Lymph % (Auto) 17.3 L,[place] % (Auto) 7.5, Eos % (Auto) 1.7, [...] 12/17/24 08:27 IMPRESSION: NEGATIVE WRIST Reading Location: [facility] Physical Exam Narrative Right upper Extremity [...] Multi Select Codes Visit Charges Visit Charges: 07532 Subs Hosp L1 12/18/24 0823 Kevan Jama MD Cosigner Signature (if applicable): CC: ~ Signed [facility]05-16-2025 History and physical note [facility] Note Date/Time December 17, 2024 5:05p [facility] Medical Records Department [address] [place] [address] H&P Exam - Hospitalist 12/17/24 1052 MR#: [id number] Acct: [id number] Name: ELIZABETH HENLEY Rep #:[id number] : 1950 74 From: Shayla Castro MD PCP: Dr. Alejandro Rosales MD Status:ADM IN Location: [place] [address] HPI - General General Date of Admission: [...] i the ED were BP of 129/66, AZ of 82, RR of 14 and temp [...] done in the ED by ED doctor. [facility] Medical History Pulmonary hypertension Colon [...] (Auto) 74.3 H, Lymph % (Auto) 14.9 L,Patillas % (Auto) 8.6, Eos % (Auto) 1.1, [...] 12/17/24 08:27 IMPRESSION: NEGATIVE WRIST Reading Location: [facility] Assessment & Plan Assessment/Plan (1) Acute pain [...] elects to be full code. * Total bcge-yf-sthj time 17 minutes. Charges/Coding Visit Charges Inpatient E&M: 91571 Init Hosp L2 12/17/24 1648 <Electronically signed [...] MD; Dr. Shayla Castro MD ~* Signed [facility] Work Phone: 1(569) 585-792305-16-2025 Consult note Author Mary Ann Mendez [facility] Note Date/Time December 17, 2024 4:22p [facility] Medical Records Department [address] [place] [address] Pharmacokinetic/Renal -Consult 12/17/24 1621 MR#: [id number] Acct: [id number] Name: ELIZABETH HENLEY Rep #:[id number] : 1950 74 From: Mary Ann Mendez PCP: Dr. Alejandro Rosales MD Status:ADM IN Location: [place] [address] Consult Antibiotic Management Pharmacy has been consulted [...] Signature (if applicable): Date CC: ~ Signed [facility] Work Phone: 1(632) 633-864105-16-2025 Consult note Author [facility]an [facility] Note Date/Time December 17, 2024 3:47p m [facility] Medical Records Department [address] [place] [address] Consultation - Surgical 12/17/24 1055 MR#: [id number] Acct: [id number] Name: ELIZABETH HENLEY Rep #:[id number] : 1950 74 From: Kevan Jama MD PCP: Dr. Alejandro Rosales MD Status:ADM IN Location: [facility] QU782-9 Assessment & Plan Assessment/Plan (1) Acute pain [...] not report any changes in her dietrecently [facility] Medical History Pulmonary hypertension Colon [...] (Auto) 74.3 H, Lymph % (Auto) 14.9 L,Patillas % (Auto) 8.6, Eos % (Auto) 1.1, [...] 12/17/24 08:27 IMPRESSION: NEGATIVE WRIST Reading Location: [id number] Charges/Coding Visit Charges Office Visits / Consults: 25645 OV L3 New 30min (Patient was seen for a new problem in the emergency department by plastic surgery) 12/17/24 4684 <Electronically signed by Kevan Jama MD> Cosigner Signature (if applicable): CC: Dr. Alejandro Rosales MD~ Signed [facility] Work Phone: 1(240) 163-635205-16-2025 History and physical note [facility] Medical Records Department [address] [place] [address] H&P Exam - Hospitalist 12/17/24 1052 MR#: [id number] Acct: [id number] Name: ELIZABETH HENLEY Rep #:[id number] : 1950 74 From: Shayla Castro MD PCP: Dr. Alejandro Rosales MD Status:ADM IN Location: [facility] JT239-2 HPI - General General Date of Admission: [...] i the ED were BP of 129/66, AZ of 82, RR of 14 and temp [...] done in the ED by ED doctor. [facility] Medical History Pulmonary hypertension Colon [...] (Auto) 74.3 H, Lymph % (Auto) 14.9 L,Patillas % (Auto) 8.6, Eos % (Auto) 1.1, [...] 12/17/24 08:27 IMPRESSION: NEGATIVE WRIST Reading Location: [id number] Assessment & Plan Assessment/Plan (1) Acute pain [...] elects to be full code. * Total xphf-uf-wvbq time 17 minutes. Charges/Coding Visit Charges Inpatient E&M: 34849 Init Hosp L2 12/17/24 1648 Cosigner Signature [...] MD; Dr. Shayla Castro MD ~* Signed [facility]05-16-2025 Consult note [facility] Medical Records Department [address] [place] [address] Pharmacokinetic/Renal -Consult 12/17/24 1621 MR#: [id number] Acct: [id number] Name: ELIZABETH HENLEY Rep #:[id number] : 1950 74 From: Mary Ann Mendez PCP: Dr. Alejandro Rosales MD Status:ADM IN [facility] Management Pharmacy has been consulted [...] Signature (if applicable): Date CC: ~ Signed [facility]05-16-2025 Consult note [facility] Medical Records Department [address] [place] [address] Consultation - Surgical 12/17/24 1055 MR#: [id number] Acct: [id number] Name: ELIZABETH HENLEY Rep #:[id number] : 1950 74 From: Kevan Jama MD PCP: Dr. Alejandro Rosales MD Status:ADM IN Location: [place] [address] Assessment & Plan Assessment/Plan (1) Acute pain [...] not report any changes in her dietrecently [facility] Medical History Pulmonary hypertension Colon [...] (Auto) 74.3 H, Lymph % (Auto) 14.9 L,Patillas % (Auto) 8.6, Eos % (Auto) 1.1, [...] 12/17/24 08:27 IMPRESSION: NEGATIVE WRIST Reading Location: [facility] Charges/Coding Visit Charges Office Visits / Consults: 82223 OV L3 New 30min (Patient was seen for a new problem in the emergency department by plastic surgery) 12/17/24 1547 Cosigner Signature (if applicable): CC: Dr. Alejandro Rosales MD~ Signed [facility]05-16-2025 Discharge summary Author Tang Le [facility] Note Date/Time December 17, 2024 11:12 am [facility] Medical Records Department [address] [place] [address] Emergency Department Summary 12/17/24 MR#: [id number] Acct: [id number] Name: ELIZABETH HENLEY Rep #:[id number] : 1950 74 From: Tang Norris PCP: Dr. Alejandro Rosales MD Status:REG ER Location: ED HPI History of Present Illness Chief Complaint: Upper Extremity Injury Informant: patient and family Narrative Narrative: Dbelf-mqjb-juxocnci female here with daughter for evaluation nontraumatic [...] surgeon, hospitalist This note was generated with [employer] dictation software. It may contain incorrectwords, spelling, and punctuation that were not noted in checking the note beforesigning. Discharge Plan Dx/Rx/DC Orders Clinical Impression: Acute pain of right wrist, Chronic anticoagulation, History of diabetes mellitus, Atrial fibrillation Disposition Disposition: Acute Care Hospital [facility] What to do if you have Problems For any increased pain, shortness of breath, bleeding, nausea or vomiting, chestpain, or any unexpected problems, contact your Primary Care Provider. Call [facility] ([phone]) or report to the closest Emergency Room. Call 911 if necessary. 12/17/24 1112 <Electronically signed by Tang Norris> Cosigner Signature (if applicable): CC: Dr. Alejandro Rosales MD ~ Signed [facility] Work Phone: 1(134) 117-883105-16-2025 Discharge summary [facility] Medical Records Department [address] [place] [address] Emergency Department Summary 12/17/24 MR#: [id number] Acct: [id number] Name: ELIZABETH HENLEY Rep #:[id number] : 1950 74 From: Tang Norris PCP: Dr. Alejandro Rosales MD Status:REG ER Location: ED HPI History of Present Illness Chief Complaint: Upper Extremity Injury Informant: patient and family Narrative Narrative: Rhlcl-pmgy-veonpizf female here with daughter for evaluation nontraumatic [...] is a diabetic. Prior similar symptoms: No [facility] Medical History Pulmonary hypertension Colon cancer [...] aspect of the wrist into the joint aurrq86-jtvbo 1-1/2 inch needle, approximately 0.5 cc yellow [...] surgeon, hospitalist This note was generated with [employer] dictation software. It may contain incorrectwords, spelling, and punctuation that were not noted in checking the note beforesigning. Discharge Plan Dx/Rx/DC Orders Clinical Impression: Acute pain of right wrist, Chronic anticoagulation, History of diabetes mellitus, Atrial fibrillation Disposition Disposition: Acute Care Hospital [facility] What to do if you have Problems For any increased pain, shortness of breath, bleeding, nausea or vomiting, chestpain, or any unexpected problems, contact your Primary Care Provider. Call [facility] ([phone]) or report tothe closest Emergency Room. Call 911 if necessary. 12/17/24 1112 Cosigner Signature (if applicable): CC: Dr. Alejandro Rosales MD ~ Signed [facility]05-16-2025 Radiology Diagnostic study note [facility] Imaging Services [address] [place] [address] Wrist min 3 Views MR#: [id number] Acct: [id number] Name: ELIZABETH HENLEY Rep #: [id number] : 1950 F 74 From: Kvng Singer MD PCP: Dr. Alejandro Rosales MD Status: REG ER Study:Wrist min 3 Views Date of Exam: Exam# [id number] Ordering Dr: Tang Mendiola DO PROCEDURE: WRIST MIN 3 VIEWS 12/17/2024 REASON FOR EXAM: PAIN Medial pain. No history of trauma. TECHNIQUE: 3 view(s) of the right wrist COMPARISON: None FINDINGS: Bones: No visible fracture. No suspicious bone lesion. Joints: Normal alignment. Soft tissues: Soft tissues are unremarkable. Other: RAD/Wrist min 3 Views IMPRESSION: NEGATIVE WRIST Reading Location: [id number] CC: Dr. Alejandro Rosales MD; Dr. 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 Pt is being discharged to [facility] today at [facility]. Report was called, and paperwork was faxed. Pt's daughter was provided with AVS, as well. They are aware that Eliquis will start 11/12. Pt has all belongings packed and ready for discharge. She is being driven to facility by her daughter and facility is aware of this. 1430 - Pt was transported off unit via w/c by DYE LINE OPERATOR. Daughter to transport to facility. 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 Pt is being discharged to [facility] today at [facility]. Report was called, and paperwork was faxed. Pt's daughter was provided with AVS, as well. They are aware that Eliquis will start 11/12. Pt has all belongings packed and ready for discharge. She is being driven to facility by her daughter and facility is aware of this. 1430 - Pt was transported off unit via w/c by DYE LINE OPERATOR. Daughter to transport to facility. * Nursing [...] Fowler - 11/10/2024 11:43 AM EDT Problem: MANDREL PRESS HAND - Language Goal: Command Following - Patient [...] ability to direct care Outcome: Ongoing Problem: MANDREL PRESS HAND - Cognition Goal: Ongoing Assessment - Patient will participate in ongoing dynamic assessment of motor speech, expressive/receptive language, and cognitive- linguistic skills across 1 session to better assess deficits and most appropriately guide MANDREL PRESS HAND plan of care Outcome: Ongoing * Plan [...] - Patient will perform 5x Sit to bottom turning lathe tender 15 seconds or less in order to [...] - Patient will perform 5x Sit to bottom turning lathe tender 15 seconds or less in order to [...] MD PGY-2 Neurology [facility] Note* Nursing Notes - Kennedy Key RN - 11/11/2024 2:11 PM EDT Stroke patient education has been reviewed and all required elements are complete and personalized. Cosigned by Kelley Larios RN at 11/11/2024 4:00 PM EDT [facility]04-10-2025 Hospital Discharge instructions* Discharge Instructions* Marcia Laurent DO - 11/11/2024 12:15 PM EDT Start Eliquis 5 mg every 12 hours on 11/[address] referral for sleep study upon discharge from [facility] Please take these discharge instructions to [...] you at all times. Stroke Education: visit [email or web address] What are the most common symptoms of [...] all ordered medications [] Avoid non-prescription or bths-vfo-fgrqdhl medication not cleared by your physician [x] [...] may call the neurovascular doctors office at [phone], if you have questions Mon-Fri between 8:30 am and 4:30 pm. - For off hours or the weekend you may call the office or the hospital magnetic grinder operator at and ask for the stroke resident installation and service technician to be paged. - If you have any other questions or needs, please call Polly CALIX, RN, Stroke Nurse Navigator at [phone] Mon-Fri between 7:00am and 3:00pm. - Additional assistance may be found by reaching out to our Case Management Office at [phone]. *In the event of an Emergency: If you have a physical or psychiatric emergency call 421 or go to your local emergency department. You should also call your outpatient provider's emergency number. Other reference numbers: [facility] Intake Office at [phone]; [facility] at [phone]; or Suicide Prevention Hotline at 908-799-5102. *Helpful phone numbers: Free Crisis Hotline: 9-045-832-TALK ( ) Suicide Hotline: 961.605.1029 Seniors Suicide Hotline: 196.761.5097 [facility] Youth: 895.252.6985 [facility]: [phone] (free counseling) [employer] Access Hotline: 715-585-PHAB (442-356-5191) 24-hour crisis text hotline: Text the word 4hope to 446-802 for crisis support. Texting this number is [...] you may qualify for Medicaid/public assistance: The [facility] Department of Job and Family Services can now process morillo (TANF), food (SNAP) and Medicaid Applications over the phone. Please call [phone] ([phone]) and apply over the phone or apply online at www.benefits.[place].gov. Friday-Friday 8am-12pm noon. Medication Assistance Programs [employer] members can buy 100+ common prescriptions for FREE, $3 or $6. Annual membership is $36 for individuals and $72 for families (up to 6 people, including pets). Sign up online or enroll at your nearest pharmacy! [address], web site can provide a significant number of coupons for medications at a much lower chew. [place] Department of Aging The Department of Aging administers programs and services to meet the needs of older [place]. Services and resources offered per county may include transportation, housekeeping, meals and nutrition, personal care, case management, safety monitoring, home medical equipment, legal services, oracle financial application developer, health and wellness, education, caregiver support, respite care, etc. Call to be connected to the area agency on aging serving your community or visit aging.[place].gov/find-services. Request a consultation with a community resource expert at ltssi.age.[place].gov/ [facility] Stroke Support [facility] Stroke Support Group is for stroke survivors, friends, and family members. Meets on the Friday of each month from 6:30pm-7:30pm at [facility] ([address]; [place] [address]). Contact Sonam Craig, at [phone] or [email or web address]. If you are outside of the [facility], contact The [place] Stroke [employer] at www.stroke.org or 1-276-7-STROKE or for support groups in your area. You may also refer to the Your Care after a Stroke education booklet at go.[facility].edu/gpur7951 for additional resources. [facility] History of Present illness Narrative* ABA Concepcion - 11/11/2024 11:24 AM EDT Care Management Discharge Note Selected Continued Care - Admitted Since 11/08/2024 Destination Coordination complete. Service Provider Services Address Phone Fax Patient Preferred [facility] Inpatient Rehabilitation [address] [facility] [address] [phone] -- Transport Request Mode of Transfer: Private Vehicle Discharge Transport ETA: 11/11/2024 @ 2pm Patient medically stable for discharge per physician/medical team. Patient/Statuary Painter remain inagreement with the discharge plan. Insurance authorization has been received. ISABELLE Epps, DRUM SANDER Parking Patroller Available by Secure Chat * Ramonita Pappas [...] Assessment/Intervention: Transfer Assessment/Intervention: Sit to Stand Transfer Dupage Level: Sit->Stand: contact guard assist Assistive Device: Sit->Stand: gait belt, armed chair Skilled Rationale: Hand placement, Verbal cues, Full extension to upright positioning/posture, Technique of activity, Cues for increased safety Skilled Intervention/Details: Sit->Stand: recliner x 2, toilet x 1 Stand to Sit Transfer Dupage Level: Stand->Sit: contact guard assist Assistive Device: Stand->Sit: gait belt, armed chair Skilled Rationale: Hand placement, Controlled descent for sitting Skilled Intervention/Details: Stand->Sit: cues for proximity to chair Gait/Functional Mobility Assessment/Intervention: Gait Assessment Dupage Level: Gait: minimum assist (75% patient effort) Assistive Device: Gait: gait belt, hand held assist Ambulation Distance (Feet): 150 Gait Deviations Identified: decreased chris, decreased gait speed, path deviation Gait Skilled Rationale: verbal, safety to avoid obstacles Skilled Intervention/Details - Gait: right inattention, requiring frequent cues for scanning. Stairs Assessment/Intervention: Stairs Assessment Dupage Level: Stair Negotiation: not tested Outcome Score(s): CURRENT [facility] Basic Mobility Inpatient Short Form Turning over [...] a railin - A Little Assistance CURRENT [facility] Mobility Raw Score: 18 CURRENT [facility] Mobility Functional Limitation: 46.58% Impaired in Basic [...] Progress Note IDENTIFYING INFORMATION Elizabeth Henley MR# [id number] 11/10/2024 HISTORY OF PRESENT ILLNESS Elizabeth Henley [...] further evaluation. INTERVAL HISTORY 11/09: admitted to OR. 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 Sameera Perez D.O. Vascular Neurology [facility] * ABA Concepcion - 11/10/2024 2:14 PM EDT Placement Plan Expected Discharge Date: 11/12/2024 Referred Level of Care: IPR Barriers: Pre-cert, medical readiness, transportation. Current Referrals and Status 1. [facility] - Available and Reserved Patient and family's preference is able to accept and start pre-cert. One daughter and patient updated at bedside. ISABELLE Epps, DRUM SANDER Parking Patroller Available by Secure Chat * YUMIKO Fowler - 11/10/2024 11:42 AM EDT Acute Care MANDREL PRESS HAND Speech/Language/Cognitive Evaluation Best mode of Communication: (nonverbal gestures and facial expressions) Communication Strategies: -Ask conflicting yes/no questions (I.e. Are you in pain? followed by Are you comfortable?) to ensure accurate response. -Provide pt options in vertical field of 2. Discharge Recommendations: Based on the below outcome measures/assessment score(s) and MANDREL PRESS HAND clinicaljudgment, discharge destination recommendation is: Inpatient Rehab Facility Barriers to discharge home: Inability to communicate basic wants/needs Supporting factors for discharge setting: Impaired speech and language skills limiting ability to communicate basic wants/needs Acute MANDREL PRESS HAND Outcomes Tracking Communicate basic wants and needs?: [...] Subjective information: Seen resting in recliner on MANDREL PRESS HAND arrival, daughter present. With cues for sitting upright and washcloth pt sustained alertness throughout. Set up with lunch tray on MANDREL PRESS HAND exit. Of note, daughter reporting pt with [...] to Visit: Nursing Lines/Tubes/Drains (Rehab Status): Telemetry MANDREL PRESS HAND Existing Precautions/Restrictions: fall Patient History Comments: Elizabeth [...] hospitalization. No recent falls Residence: (mobile home) MANDREL PRESS HAND IADL History IADLs: (Ongoing baseline needed, time constraints this date with lunch tray present) *Unclear baseline vision L eye, daughter reporting like blind MANDREL PRESS HAND Existing Precautions/Restrictions: fall Respiratory Status: O2 Sat [...] 0 Asthenia (A): 1 Strain (S): 0 MANDREL PRESS HAND Outcomes: Not completed Acute MANDREL PRESS HAND Goals Plan of Care by YUMIKO Fowler at 11/10/2024 11:43 AM Version 1 of 1 Problem: MANDREL PRESS HAND - Language Goal: Command Following - Patient [...] ability to direct care Outcome: Ongoing Problem: MANDREL PRESS HAND - Cognition Goal: Ongoing Assessment - Patient will participate in ongoing dynamic assessment of motor speech, expressive/receptive language, and cognitive- linguistic skills across 1 session to better assess deficits and most appropriately guide MANDREL PRESS HAND plan of care Outcome: Ongoing Speech Language [...] none altered (daughter present) Needs in reach. MANDREL PRESS HAND Evaluation and Treatment Time Speech Eval - Sound Production W/Lang Comp and Exp 84109: 20 Upon discontinuation of Acute Care Speech Therapy Services or patient discharge from the hospital this note represents the current Speech Therapy Discharge Summary * YUMIKO Fowler - 11/10/2024 11:41 AM EDT Acute Care Speech Language Pathology Note Received consult for swallow evaluation. However, patient passed [place]farland Swallow Screening by nursing.Swallow eval by MANDREL PRESS HAND will not be completed at this time unless this service notified of change in status or re-consult for swallow eval placed. MANDREL PRESS HAND to proceed with speech/language/cognitive evaluationper order. Thank you. No charge Beatrice Valencia MA, [facility]-MANDREL PRESS HAND Pager: [phone] License: [email or web address] Email: [email or web address] * Abhijeet Yeung PT - [...] Assessment/Intervention: Transfer Assessment/Intervention: Sit to Stand Transfer Dupage Level: Sit->Stand: contact guard assist Assistive Device: Sit->Stand: gait belt, hand held assist Skilled Rationale: Verbal cues, Hand placement, Sequencing, Facilitate anterior shift Skilled Intervention/Details: Sit->Stand: x7 trials Stand to Sit Transfer Dupage Level: Stand->Sit: contact guard assist Assistive Device: Stand->Sit: gait belt, armed chair Skilled Rationale: Verbal cues, Hand placement, Controlled descent for sitting Skilled Intervention/Details: Stand->Sit: cues for proximity to chair Gait/Functional Mobility Assessment/Intervention: Gait Assessment Dupage Level: Gait: minimum assist (75% patient effort) [...] to Stand Test recorded time: 34.25 seconds [facility] Basic Mobility Inpatient Short Form Turning [...] railin - A Lot of Assistance CURRENT [facility] Mobility Raw Score: 17 CURRENT [facility] Mobility Functional Limitation: 50.57% Impaired in Basic [...] - Patient will perform 5x Sit to bottom turning lathe tender 15 seconds or less in order to [...] placement Transfer Assessment/Intervention: Sit to Stand Transfer Dupage Level: Sit->Stand: contact guard assist Assistive Device: Sit->Stand: gait belt Skilled Rationale: Hand placement, Verbal cues Toilet Transfer Dupage Level: Toilet: minimum assist (75% patient effort) Assistive Device: Toilet: gait belt Skilled Rationale: Hand placement, Verbal cues Functional Mobility: Functional Mobility Dupage Level: Functional Mobility/Gait: minimum assist (75% patient [...] to furniture surf due to unsteadiness CURRENT [facility] Daily Activity Inpatient Short Form Putting on/Taking Off Lower Body Clothin - A Lot of Assistance Bathin - A Lot of Assistance Toiletin - A Lot of Assistance Putting on/Taking Off Upper Body Clothin - A Little Assistance Groomin - A Little Assistance Eatin - A Little Assistance CURRENT [facility] Activity Raw Score: 15 CURRENT [facility] Activity Functional Limitation/Modifier: 56.46% Currently Impaired in [...] EDT Speech Language Pathology Attempt Note 11/10/2024 MANDREL PRESS HAND Therapy Completed: Attempted Attempted Reason: Other (see comments) (PT/OT at bedside, will reattempt later time) YUMIKO Fowler Time In: 931 Time Out: 931 Total Visit Time: 0 minutes Total Treatment Time (skilled, billable minutes): 0 minutes * YUMIKO Alva - 11/09/2024 2:17 PM EDT Speech Language Pathology Attempt Note 11/09/2024 MANDREL PRESS HAND Therapy Completed: Attempted Attempted Reason: (pt sleeping; family member requested MANDREL PRESS HAND return later) YUMIKO Alva Time In: 1414 Time Out: 1414 Total Visit Time: 0 minutes Total Treatment Time (skilled, billable minutes): 0 minutes * Ramonita Quarles RN - 11/09/2024 1:11 PM EDT Reason for Consult: IPR Consulted By: chart reviewed Level(s) of Care Discussed: IPR Patient and/or Statuary Painter's Preferred Geographic Area for Discharge: [address] Patient and/or Statuary Painter's Preference for Providers to Include? 1.[facility] Patient and/or Statuary Painter's Preference for Providers to Exclude? 1.none Patient and/or Statuary Painter's Discussion: Discussed referral process with the patient and/or factory representative. Patient and/or factory representative isagreeable to have placement referral initiated. Ramonita CALIX, RN Clinical Bioinformatics Specialist Available thru secure Weesh or Instablogs Please note that I am a float youth care professional and may not cover the same service every day. Please call the main Care Management office at [phone] for up-to-date coverage. * Ramonita Quarles RN [...] can provide transportation home. Patient currently uses [facility] for medication management.CM awaitingon PT/OT recommendation. Weapons Officer [employer] will continue to follow and assist with discharge planning asneeded. Initial Discharge Planning Expected Discharge Disposition: Inpatient Rehab Facility Transportation Available for Discharge: Ambulance Anticipated DME: unknown at this time Anticipated Services at Discharge: Physical Therapy, Occupational Therapy, Fdc Patient Assessment Completed: Initial Legal Next of Kin Does the patient have a Guardian?: No Spouse: No Adult Child(amanda), List All Adult Children: Yes Name and Contact information: Melvina Mistry [phone] Would you like to add additional adult children?: Yes Name and Contact information: Suzan Mullersadafluis a [phone] Referral to Social Work to Identify Legal [...] Clinic that manages Anticoagulation?: PCP [facility] [address] [place] [phone] [address] [facility] [address] [facility] [address] Living Environment and Support System Is the patient from a facility or longterm?: No Living Environment: Mobile Home Patient Caregiving [...] care for themselves at home? 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 : No Ramonita CALIX RN Clinical Bioinformatics Specialist Available thru secure Weesh or Instablogs Please note that I am a float youth care professional and may not cover the same service every day. Please call the main Care Management office at [phone] for up-to-date coverage. * YUMIKO Torres - 11/09/2024 9:20 AM EDT Speech Language Pathology Attempt Note 11/09/2024 MANDREL PRESS HAND Therapy Completed: Attempted Per RN, anticipating ECHO [...] performance Mobility Assessment: Supine to Sit Mobility Dupage Level: Supine->Sit: minimum assist (75% patient effort) Bed Features/Set-up: Supine->Sit: Head of bed elevated Skilled Rationale: Sequencing, Hand placement, Verbal cues Transfer Assessment: Sit to Stand Transfer Dupage Level: Sit->Stand: minimum assist (75% patient effort) Assistive Device: Sit->Stand: gait belt Skilled Rationale: Verbal cues, Hand placement, Sequencing Skilled Intervention/Details: Sit->Stand: X 2 trials Functional Mobility: Functional Mobility Dupage Level: Functional Mobility/Gait: minimum assist (75% patient effort) Assistive Device: Functional Mobility/Gait: gait belt Functional Mobility Distance: Distance needed to access restroom Functional Mobility Deficits: Activity tolerance, Balance, Generalized weakness Functional Mobility Skilled Rationale: Cues for increased safety, Verbal cues, Technique of activity Skilled Intervention/Details - Functional Mobility/Gait: Cues for scanning CURRENT [facility] Daily Activity Inpatient Short Form Putting on/Taking Off Lower Body Clothin - A Lot of Assistance Bathin - A Lot of Assistance Toiletin - A Lot of Assistance Putting on/Taking Off Upper Body Clothin - A Lot of Assistance Groomin - A Lot of Assistance Eatin - A Lot of Assistance CURRENT [facility] Activity Raw Score: 12 CURRENT [facility] Activity Functional Limitation/Modifier: 66.57% Currently Impaired in [...] the current Occupational Therapy Discharge Summary. * Abhjieet Yeung, PT - 11/09/2024 8:09 AM EDT [...] cognition) Mobility Assessment: Supine to Sit Mobility Dupage Level: Supine->Sit: minimum assist (75% patient effort) [...] positioning Transfer Assessment: Sit to Stand Transfer Dupage Level: Sit->Stand: minimum assist (75% patient effort) Assistive Device: Sit->Stand: gait belt, hand held assist Skilled Rationale: Verbal cues, Hand placement, Sequencing, Full extension to upright positioning/posture, Upright gaze/neck extension Stand to Sit Transfer Dupage Level: Stand->Sit: minimum assist (75% patient effort) Assistive Device: Stand->Sit: gait belt, hand held assist Skilled Rationale: Verbal cues, Hand placement Gait/Functional Mobility: Gait Assessment Dupage Level: Gait: minimum assist (75% patient effort) [...] requiring frequent cues for scanning. Stairs: CURRENT [facility] Basic Mobility Inpatient Short Form Turning over [...] railin - A Lot of Assistance CURRENT [facility] Mobility Raw Score: 17 CURRENT [facility] Mobility Functional Limitation: 50.57% Impaired in Basic [...] - Patient will perform 5x Sit to bottom turning lathe tender 15 seconds or less in order to [...] Progress Note IDENTIFYING INFORMATION Elizabeth Henley MR# [id number] 11/09/2024 HISTORY OF PRESENT ILLNESS Elizabeth Henley [...] further evaluation. INTERVAL HISTORY 11/09: admitted to OR. PHYSICAL EXAM General: Laying comfortably in bed; [...] Physical. Sameera Perez D.O. Vascular Neurology [facility] [facility] * ABA Knight - 11/08/2024 6:54 PM EDT Care Management Progress Note SW responded to field activated stroke alert. Patient brought in by [employer]. Emergency contacts: None found, although EMS reports that patient's daughter is en route from the [place], [place] area. JASPREET is available for assistance while patient is in the ED. Travis WALTON, DRUM SANDER Medical Social Work * Jessie Campbell RP [...] further questions. Name: Jessie Campbell RPH Phone: [phone] Date/Time: 11/08/2024 6:31 PM documented [facility] this [facility] Plan of care note* Plan of [...] safely navigate home and community. Outcome: Progressing [facility]04-10-2025 Hospital course Narrative* Marcia Laurent DO [...] unspecified mechanism 1 tablet 1 tablet Follow-up: [address] [phone] Cosigned by Sameera Perez DO at 11/11/2024 [...] bid tomorrow (11/12). Atorva 40. Discharge to [facility] today. Spent less than 30 minutes on discharge. Sameera Perez D.O. Vascular Neurology [facility] Plan of care note* Plan of [...] Goal: Effective Urinary Elimination Outcome: Progressing [facility]04-09-2025 Plan of care note* Plan of Care - YUMIKO Fowler - 11/10/2024 11:43 AM EDT Problem: MANDREL PRESS HAND - Language Goal: Command Following - Patient [...] ability to direct care Outcome: Ongoing Problem: MANDREL PRESS HAND - Cognition Goal: Ongoing Assessment - Patient will participate in ongoing dynamic assessment of motor speech, expressive/receptive language, and cognitive- linguistic skills across 1 session to better assess deficits and most appropriately guide MANDREL PRESS HAND plan of care Outcome: Ongoing [facility]04-09-2025 Plan of care note* Plan of [...] - Patient will perform 5x Sit to bottom turning lathe tender 15 seconds or less in order to demonstrate reduced fall risk. Outcome: Progressing [facility]04-09-2025 Plan of care note* Plan of [...] safety and success during dailyroutine. Outcome: [facility]ing [facility] Plan of care note* Plan of [...] Progressing Goal: Effective Urinary Elimination Outcome: [facility]ing [facility] History and physical note* Sameera Perez [...] pharmacy check now for chew. Atorva 40. PT/OT/MANDREL PRESS HAND. Verify med rec and allergy list. Sameera Perez D.O. Vascular Neurology [facility]04-08-[facility] History and physical note* Sameera Perez [...] pharmacy check now for chew. Atorva 40. PT/OT/MANDREL PRESS HAND. Verify med rec and allergy list. Sameera Perez D.O. Vascular Neurology [facility] documented in this [facility] Plan of care note* Plan of [...] safety and success during dailyroutine. Outcome: Ongoing [facility]04-08-2025 Plan of care note* Plan of [...] - Patient will perform 5x Sit to bottom turning lathe tender 15 seconds or less in order to demonstrate reduced fall risk. Outcome: Ongoing [facility]04-07-2025 Plan of care note* Plan of [...] Progressing Goal: Effective Urinary Elimination Outcome: Progressing [facility]04-07-2025 NoteAcute Coronary Syndrome (ACS): Initial Evaluation and Management: [email or web address]%20Coronary%20Sy [email or web address] [facility]04-07-2025 Plan of care note* Plan of [...] BYRON. Anh Gonzalez MD PGY-[address] [facility]04-07-2025 Emergency department Note* Cortez Rodriges RN - 11/08/2024 6:32 PM EDT Bed: E035 Expected date: Expected time: Means of arrival: Comments: [address] [facility]04-07-2025 Emergency department Note* Cortez Rodriges RN [...] slurred speech and right-sided weakness. Evaluated at [facility] by stroke network neurologist. NIHSS score 4.CT head and CTA head showed left MCA M1 occlusion. On Coumadin, compliant. Stroke network neurologist recommended TNK for INR <1.7; INR was 1.5. ED physician did not administer TNK. Upon transfer, GCS 14, NIHSS score 3-4, aphasia and slurred speech improved. At [facility], NIHSS score 2-3. Glucose 125. [...] was used for documentation and errors in product sales engineer may have occurreddespite proof reading. Audelia Wood [...] with contrast outweigh the risks of contrast-induced BRYON. We will need to go over recommended [...] Expected: Armando Henley documented in this [facility] Physician Emergency department Note* Audelia Wood MD - 11/08/2024 6:26 PM EDT ED ATTENDING NOTE Chief Complaint: No chief complaint on file. HPI: Elizabeth Henley is a 74 y.o. female History of Present Illness 74-year-old individual presents for stroke evaluation. Last known well state uncertain. Normal conversation at 1430 hours, then slurred speech and right-sided weakness. Evaluated at [facility] by stroke network neurologist. NIHSS score 4.CT head and CTA head showed left MCA M1 occlusion. On Coumadin, compliant. Stroke network neurologist recommended TNK for INR <1.7; INR was 1.5. ED physician did not administer TNK. Upon transfer, GCS 14, NIHSS score 3-4, aphasia and slurred speech improved. At [facility], NIHSS score 2-3. Glucose 125. [...] was used for documentation and errors in product sales engineer may have occurreddespite proof reading. Audelia Wood MD ED Attending Physician Audelia Wood MD 11/08/242033 [facility]04-07-2025 Emergency department Note* Pam Forrest MD [...] medical care. Pam Forrest MD Resident 11/08/[address] [facility] Work Phone: 1(108) 680-667204-07-2025 Consult note* Anh Gonzalez MD - 11/08/2024 [...] Scales Flowsheet Row Most Recent Value Modified [place] Scale Score Premorbid (MRSS) 3 filed on [...] ED. Continuous telemetry -PT, OT, Speech and health social work professor consults Ischemic Stroke Core Measures -NIHSS on [...] Perez DO at 11/09/2024 3:16 PM EDT [facility]04-07-2025 Consult note* Anh Gonzalez MD - [...] Scales Flowsheet Row Most Recent Value Modified [place] Scale Score Premorbid (MRSS) 3 filed on [...] ED. Continuous telemetry -PT, OT, Speech and health social work professor consults Ischemic Stroke Core Measures -NIHSS on [...] 11/09/2024 3:16 PM EDT documented in this [facility]04-07-2025 Physician Emergency department Note* Pam Forrest MD [...] process. Pam Forrest MD Resident 11/08/24 2333 [facility]04-07-2025 Emergency department Note* Tari Alvarenga RN [...] Pt does take coumadin, unsure last dose. [facility]04-07-2025 Emergency department Note* Cortez Rodriges RN - 11/08/2024 6:05 PM EDT Bed: E034 Expected date: Expected time: Means of arrival: Comments: Expected: Armando Henley [facility]04-07-2025 Evaluation note* Diagnosis Onset Date Resolution [...] pril 2024 6:06pm PAD (peripheral artery disease) equine manager indu November 11, 2024 6:06pm Hypophosphatemia resolved [...] Shortness of breath acute December 032024 8:21am [facility] Work Phone: 1(115) 484-216604-07-2025 Radiology Diagnostic study note [facility] Imaging Services [address] [place] [address] STROKE CTA Head AND Neck W/Con MR#: [id number] Acct: [id number] Name: ELIZABETH HENLEY Rep #: [id number] : 1950 F 74 From: Shima Gaston MD PCP: Dr. Alejandro Rosales MD Status: REG ER Study:STROKE CTA Head AND Neck W/Con Date of Exam: 11/08/24 Exam# [id number] Ordering Dr: Breann Maldonado DO PROCEDURE: STROKE [...] telephone at 4:25 p.m.on 11/08/2024. Reading Location: [facility] CC: Dr. Alejandro Rosales MD; Dr. Phillip Maldonado DO ~ [employer] Specialist: Signed [facility]04-07-2025 Radiology Diagnostic study note [facility] Imaging Services [address] [place] [id number] STROKE Brain/Head without Cont MR#: [id number] Acct: [id number] Name: ELIZABETH HENLEY Rep #: [id number] : 1950 F 74 From: Shima Gaston MD PCP: Dr. Alejandro Rosales MD Status: [facility] ER Study:STROKE Brain/Head without Cont Date of Exam: 11/08/24 Exam# [id number] Ordering Dr: Breann Maldonado DO EXAM: STROKE [...] ischemic changes and age-related changes. Reading Location: [facility] CC: Dr. Alejandro Rosales MD; Dr. Phillip Maldonado DO ~ [employer] Specialist: Signed [facility]02-27-2025 Evaluation note* Diagnosis Onset Date Resolution [...] pril 2024 6:06pm PAD (peripheral artery disease) equine manager indu November 11, 2024 6:06pm Hypophosphatemia resolved [...] inactive December 022024 11:07am Chronic anticoagulation inactive [facility] 2024 11:07am History of diabetes mellitus inactiv e December 17, 2024 11:07am Right wrist pain acute December 2:44pm Obstructive sleep apnea acute ay 2024 8:21am Pulmonary hypertension acute Ma y 2024 8:21am Shortness of breath acute December 032024 8:21am [facility] Work Phone: 1(104) 129-980902-18-2025 Evaluation note* Diagnosis Onset Date Resolution Status Admit Date Contusion acute September 21, 2024 9:53am Contusion acute September 30, 2024 2:38pm [facility] Work Phone: 1(684) 295-442602-18-2025 Evaluation note* Diagnosis Onset Date Resolution Status [...] pril 2024 6:06pm PAD (peripheral artery disease) equine manager indu November 11, 2024 6:06pm Hypophosphatemia resolved [...] diabetes mellitus acute December 17, 2024 11:07am [facility] Work Phone: 1(405) 781-166709-03-2021 NoteHNO ID: [id number] Author: RT Trisha(R) Service: ? Author Type: Restorative Aide Type: Progress Notes Filed: 04/06/2021 12:09 PM [...] BY: RT Trisha(R) April 06, 2021 11:46 [facility]09-03-2021 NoteHNO ID: [id number] Author: Jeffrey Robles APRN.SHEET MET[employer] FORMER Service: ? Author Type: Nurse Practitioner Type: [...] RELIEF) 50 mcg/actuation nasal spray Use 1 [place] in each nostril once daily. mometasone-formoterol (DULERA) [...] could represent an are (more content not included)...[facility]09-03-2021 History of Present illness Narrative* Bhakti Bergman, [...] 06, 2021 11:46 AM documented in this encounterR[facility] summary Author Tang eMndiola [facility] Note Date/Time December 17, 2024 11:12 am [facility] Medical Records Department [address] [place] [address] Emergency Department Summary 12/17/24 MR#: [id number] Acct: [id number] Name: ELIZABETH HENLEY Rep #:[id number] : 1950 74 From: Tang Norris PCP: Dr. Alejandro Rosales MD Status:REG ER Location: ED HPI History of Present Illness Chief Complaint: Upper Extremity Injury Informant: patient and family Narrative Narrative: Enhxb-bpcg-kjpckocm female here with daughter for evaluation nontraumatic [...] surgeon, hospitalist This note was generated with [employer] software. It may contain incorrectwords, spelling, and punctuation that were not noted in checking the note beforesigning. Discharge Plan Dx/Rx/DC Orders Clinical Impression: Acute pain of right wrist, Chronic anticoagulation, History of diabetes mellitus, Atrial fibrillation Disposition Disposition: Acute Care Hospital [facility] What to do if you have Problems For any increased pain, shortness of breath, bleeding, nausea or vomiting, chestpain, or any unexpected problems, contact your Primary Care Provider. Call [facility] ([phone]) or report to the closest Emergency Room. Call 911 if necessary. 12/17/24 1112 <Electronically signed by Tang Norris> Cosigner Signature (if applicable): CC: Dr. Alejandro Rosales MD ~ Signed [facility] Work Phone: Discharge summary Author Shayla [facility] Note Date/Time December 19, 2024 1:16p m [facility] Medical Records Department [address] [place] [address] Instructions for Home/Discharge Instructions 12/19/24 1315 MR#: [id number] Acct: [id number] Name: ELIZABETH HENLEY Rep #:[id number] : 1950 74 From: Shayla Castro MD [...] MD; Dr. Kevan Jama MD ~ Signed [facility] Work Phone: Discharge summary Author [facility] Note Date/Time December 19, 2024 1:27p [facility] Medical Records Department [address] [place] [address] Discharge Summary 12/19/24 1316 MR#: [id number] Acct: [id number] Name: ELIZABETH HENLEY Rep #:[id number] : 1950 74 From: Shayla Castro MD PCP: Dr. Alejandro Rosales MD Status:ADM IN [facility] Prov[facility] Date of Admission: 12/17/24 Date of [...] i the ED were BP of 129/66, [place] of 82, RR of 14 and temp [...] (Auto) 75.3 H, Lymph % (Auto) 14.6 L,[place] % (Auto) 7.5, Eos % (Auto) 1.9, [...] Self Care Charges/Coding Visit Charges Inpatient E&M: 66433 Disch Hosp >30min 12/19/24 1327 <Electronically signed by Shayla Castro MD> Cosigner Signature (if applicable): CC: Dr. Alejandro Rosaels MD; Dr. Shayla Castro MD~ Signed [facility] Work Phone: evaluation note* Diagnosis Onset Date Resolution Status Colon cancer acute S/P right hemicolectomy acut e Colon cancer acute Colon cancer acute S/P right hemicolectomy acut e [facility] Work Phone: Evaluation noteNo assessment information available [facility] Work Phone: Evaluation note* Diagnosis Onset Date Resolution Status Colon cancer chronic [facility] Work Phone: Evaluation note* Diagnosis Onset Date Resolution Status Hypokalemia acute Colon cancer chronic Colon cancer chronic Colon cancer chronic [facility] Work Phone: Evaluation note* Diagnosis Onset Date Resolution Status Hypokalemia acute Colon cancer chronic Colon cancer chronic Colon cancer chronic Colon cancer chronic Colon cancer chronic [facility] Work Phone: Evaluation note* Diagnosis Onset Date Resolution Status Hypokalemia acute Colon cancer chronic Colon cancer chronic Colon cancer chronic Colon cancer chronic Colon cancer chronic Abnormal gastrointestinal PET scan acute S/P right hemicolectomy acut e Colon cancer chronic [facility] Work Phone: Evaluation note* Diagnosis Foot pain, left Pain in limb documented [facility] encounter [facility]* Diagnosis Stroke- Primary Unspecified cerebral artery occlusion with cerebral infarction Cerebrovascular accident (CVA), unspecified mechanism Type 2 diabetes mellitus with hyperglycemia Type II or unspecified type diabetes mellitus without mention of complication, not stated as uncontrolled documented in this encounter [facility] Author Marc Robbins [facility] Note Date/Time April 21, 2025 3:[address] [place] [address] [place] [address] OFFICE VISIT Date of Service: 04/21/25 1505 MR#: [id number] Acct: [id number] Name: ELIZABETH HENLEY Rep #: [id number] : 1950 From: Marc Robbins MD Age/Sex: 74/F [place] [facility] Status: Signed HPI Subjective Date of Service [...] Feels well, speech impared because of strokes.. [facility] Medical History History of diabetes [...] 94 Oxygen Delivery Method room air Intake Lending Consultant Required: No Accompanied by: Sister, grandson Is [...] applicable) CC: Dr. Alejandro Rosales MD ~ [facility] Work Phone: Reason for referral (narrative)* Diagnostic Procedure Only (Urgent) - Closed Specialty Diagnoses / Procedures Referred By Contac t Referred To Contact XR IMAGING Diagnoses Foot pain, left Procedures XR ANKLE GENERAL 3V AP/LAT/OBL LT X-RAY ANKLE MINIMUM 3 VIEWS Jeffrey Robles APRN.SHEET METAL FORMER [address] [place] [address] [place] [address] Referral ID Status Reason Start Date Expiration Date V isits Requested Visits Authorized Closed Auto-Generate d Referral 04/06/2021 05/06/2022 1 1 * Diagnostic Procedure Only (Urgent) - Closed Specialty Diagnoses / Procedures Referred By Contac t Referred To Contact XR IMAGING Diagnoses Foot pain, left Procedures XR FOOT GENERAL 3V AP/LAT/OBL LT X-RAY FOOT MINIMUM 3 VIEWS Jeffrey Robles APRN.SHEET METAL FORMER [address] [place] [address] [place] [address] Referral ID Status Reason Start Date Expiration Date V isits Requested Visits Authorized Closed Auto-Generate d Referral 04/06/2021 05/06/2022 1 1 [facility] (narrative)No reason for referral information [facility]Wooster [facility] Work Phone: Reason for visit Narrative* Diagnostic Procedure Only (Urgent) - Closed Specialty Diagnoses / Procedures Referred By An dubon Referred To Contact XR IMAGING Diagnoses Foot pain, left Procedures XR ANKLE GENERAL 3V AP/LAT/OBL LT X-RAY ANKLE MINIMUM 3 VIEWS Jeffrey Robles APRN.SHEET METAL FORMER [address] [place] [address] [place] [address] Referral ID Status Reason Start Date Expiration Date V isits Requested Visits Authorized [id number] Closed Auto-Generate d Referral 04/06/2021 05/06/2022 1 1 [facility] for visit Narrative* Auth/Cert Specialty Diagnoses / Procedures Referred By An dubon Referred To Contact Diagnoses Stroke Stroke (LEVEL A ISCHEMIC STROKE ALERT, LVO) [facility] [address] [place] [address] [facility] [address] [place] [address] Referral ID Status Reason Start Date Expiration Date Visits Re quested Visits Authorized [id number] 1 1 [facility] Summary Purpose Family History No Family [...] Will No August 17 5:49pm Power of Flooring Salesperson Yes August 17, 2021 5:49pm Advance Directive Response Recorded Date/ Time Living Will No August 17 4:49pm Power of Flooring Salesperson Yes August 17, 2021 4:49pm Advance Directive Response Recorded Date/ Time Living Will No February 13, 2023 9:54am Power of Flooring Salesperson Yes February 13 9:54am Advance Directive Response Recorded Date/ Time Living Will No November 08, 2024 3:54pm Do you have a Healthcare Power of Flooring Salesperson? No November 08, 2024 3:54pm Documents on File Type Date Recorded Patient Statuary Painter Expl anation HealthCare Power of Flooring Salesperson 11/08/2024 8:30 PM Date Activated Date Inactivated Comments 11/08/2024 9:47 PM Healthcare Agents on File Name Relationship Healthcare Agent Relationshi p Communication Melvina Mistry Child Health Care Agent Suzan Thompson Child [facility] Health Care Agent Advance Directive Response Recorded Date/ Time Living Will No November 08, 2024 3:54pm Do you have a Healthcare Pow er of Flooring Salesperson? No November 08, 2024 3:54pm Do you have a Healthcare Pow er of Flooring Salesperson? No December 17, 2024 8:15am Living Will Yes November 12, 2024 12:58pm Do you have a Healthcare Pow er of Flooring Salesperson? Yes November 12, 2024 12:58pm Name of Medical Power of Flooring Salesperson Melvina Mistry, daughter November 12, 2024 12:58pm Advance Directive Response Recorded Date/ Time Living Will No November 08, 2024 3:54pm Do you have a Healthcare Pow er of Flooring Salesperson? No November 08, 2024 3:54pm Do you have a Healthcare Pow er of Flooring Salesperson? Yes December 17, 2024 12:20pm Living Will Yes November 12, 2024 12:58pm Do you have a Healthcare Pow er of Flooring Salesperson? Yes November 12, 2024 12:58pm Name of Medical Power of Flooring Salesperson Melvina Mistry, daughter November 12, 2024 12:58pm Advance Directive Response Recorded Date/ Time Do you have a Healthcare Pow er of Flooring Salesperson? Yes December 17, 2024 12:20pm Living Will Yes November 12, 2024 12:58pm Do you have a Healthcare Pow er of Flooring Salesperson? Yes November 12, 2024 12:58pm Name of Medical Power of Flooring Salesperson Melvina Mistry, daughter November 12, 2024 12:58pm Advance Directive Response Recorded Date/ Time Living Will No August 17 5:49pm Do you have a Healthcare Power of Flooring Salesperson? Yes August 17, 2021 5:49pm Chief Complaint [...] section and content) DATE CREATED AUTHOR 04/24/2021 [employer] ([place]) DATE CREATED AUTHOR AUTHOR'S ORGANIZ ATION 09/07/2021 [facility] DATE CREATED AUTHOR AUTHOR'S ORGANIZ ATION 11/10/2024 [facility] [facility] DATE CREATED AUTHOR AUTHOR'S ORGANIZ ATION 11/16/2024 [facility] DATE CREATED AUTHOR AUTHOR'S ORGANIZ ATION 05/24/2025 [facility] Goals (unrecognized section and content) Goals may [...] Dr. Michelle Paige MD Attending Provider Active Junior Account Manager Relationship Specialty Start Date End Date Alejandro Rosales MD [address] [place] [address] PCP - General Family Medicine 12/25/18 Team [...] November 08, 2024 End: November 08, 2024 Junior Account Manager Relationship Specialty Start Date End Date Alejandro Rosales MD [address] [place] [address] PCP - General Family Medicine 11/09/24 Team [...] 17, 2024 End: December 19, 2024 Dr. eKvan Jama MD Other Provider Active Star t: [...] Status: Inactive Member Role/Relationship Status Dates Dr. Alejnadro Rosales MD Primary Care Provider Active Start: [...] Active Start: December 18, 2024 Dr. Tang Medniola DO Emergency Provider Active Start : December [...] Start : December 19, 2024 Dr. Shayla Castor MD Admit Provider Active St art: December [...] 2025 End: January 20, 2025 Anu Hernandes COMPUTER PROGRAMMING SUPERVISOR-C Referring Provider Active Start: January 20, 2025 [...] 2025 End: February 01, 2025 Anu Hernandes COMPUTER PROGRAMMING SUPERVISOR-C Attending Provider Active Start: February 01, 2025 End: February 01, 2025 Anu Hernandes COMPUTER PROGRAMMING SUPERVISOR-C Referring Provider Active Start: February 01, 2025 End: February 01, 2025 Team Status: Active Member Role/Relationship Status Dates Dr. Alejandro Rosales MD Primary Care Provider Active Start: February 03, 2025 Anu Hernandes COMPUTER PROGRAMMING SUPERVISOR-C Referring Provider Active Start: February 03, 2025 Anu Hernandes COMPUTER PROGRAMMING SUPERVISOR-C Other Provider Active St art: February 03, [...] Active Start: November 22, 2024 Dr. Rg Ponec MD Admit Provider Active Star t: November [...] Active Start: February 03, 2025 Anu Hernandes COMPUTER PROGRAMMING SUPERVISOR-C Other Provider Active St art: February 03, [...] Act tom Start: November 26, 2024 Dr. dAa Soliman DO Other Provider Active Start: November [...] January 19, 2025 Anu M Rufener , COMPUTER PROGRAMMING SUPERVISOR-C Attending Provider Active Start: January 19, 2025 End: January 19, 2025 Anu Hernandes COMPUTER PROGRAMMING SUPERVISOR-C Referring Provider Active Start: January 19, 2025 End: January 19, 2025 Team Status: Inactive Member Role/Relationship Status Dates Dr. Alejandro Rosales MD Primary Care Provider Active Start: January 20, 2025 End: January 20, 2025 Anu Hernandes COMPUTER PROGRAMMING SUPERVISOR-C Attending Provider Active Start: January 20, 2025 End: January 20, 2025 Anu Hernandes COMPUTER PROGRAMMING SUPERVISOR-C Referring Provider Active Start: January 20, 2025 End: January 20, 2025 Team Status: Inactive Member Role/Relationship Status Dates Dr. Alejandro Rosales MD Primary Care Provider Active Start: February 01, 2025 End: February 01, 2025 Anu Hernandes COMPUTER PROGRAMMING SUPERVISOR-C Attending Provider Active Start: February 01, 2025 End: February 01, 2025 Anu Hernandes COMPUTER PROGRAMMING SUPERVISOR-C Referring Provider Active Start: February 01, 2025 End: February 01, 2025 Team Status: Active Member Role/Relationship Status Dates Dr. Alejandro Rosales MD Primary Care Provider Active Start: February 03, 2025 Anu Hernandes COMPUTER PROGRAMMING SUPERVISOR-C Referring Provider Active Start: February 03, 2025 Anu Hernandes NP-C Other Provider Active St art: February 03, 2025 Dr. Wally Rodriges DO Attending Provider Active S tart: February 03, 2025 Team Status: Inactive Member Role/Relationship Status Dates Dr. Alejandro Rosales MD Primary Care Provider Active Start: February 09, 2025 End: February 09, 2025 Anu Hernandes COMPUTER PROGRAMMING SUPERVISOR-C Attending Provider Active Start: February 09, 2025 End: February 09, 2025 Anu Hernandes COMPUTER PROGRAMMING SUPERVISOR-C Referring Provider Active Start: February 09, 2025 End: February 09, 2025 Team Status: Inactive Member Role/Relationship Status Dates Dr. Alejandro Rosales MD Primary Care Provider Active Start: February 22, 2025 End: February 22, 2025 Anu Hernandes COMPUTER PROGRAMMING SUPERVISOR-C Attending Provider Active Start: February 22, 2025 [...] 2025 End: January 19, 2025 Anu Hernandes COMPUTER PROGRAMMING SUPERVISOR-C Attending Provider Active Start: January 19, 2025 End: January 19, 2025 Anu Hernandes , COMPUTER PROGRAMMING SUPERVISOR-C Referring Provider Active Start: January 19, 2025 End: January 19, 2025 Team Status: Inactive Member Role/Relationship Status Dates Dr. Alejandro Rosales MD Primary Care Provider Active Start: January 20, 2025 End: January 20, 2025 Anu Hernandes COMPUTER PROGRAMMING SUPERVISOR-C Attending Provider Active Start: January 20, 2025 End: January 20, 2025 Anu Hernandes COMPUTER PROGRAMMING SUPERVISOR-C Referring Provider Active Start: January 20, 2025 End: January 20, 2025 Team Status: Inactive Member Role/Relationship Status Dates Dr. Alejandro Rosales MD Primary Care Provider Active Start: February 01, 2025 End: February 01, 2025 Anu Hernandes COMPUTER PROGRAMMING SUPERVISOR-C Attending Provider Active Start: February 01, 2025 End: February 01, 2025 Anu Hernandes , COMPUTER PROGRAMMING SUPERVISOR-C Referring Provider Active Start: February 01, 2025 End: February 01, 2025 Team Status: Active Member Role/Relationship Status Dates Dr. Alejandro Rosales MD Primary Care Provider Active Start: February 03, 2025 Anu Hernandes COMPUTER PROGRAMMING SUPERVISOR-C Referring Provider Active Start: February 03, 2025 Anu Hernandes COMPUTER PROGRAMMING SUPERVISOR-C Other Provider Active St art: February 03, 2025 Dr. Wally Rodriges DO Attending Provider Active S tart: February 03, 2025 Team Status: Inactive Member Role/Relationship Status Dates Dr. Alejandro Rosales MD Primary Care Provider Active Start: February 09, 2025 End: February 09, 2025 Anu Hernandes COMPUTER PROGRAMMING SUPERVISOR-C Attending Provider Active Start: February 09, 2025 End: February 09, 2025 Anu Hernandes , COMPUTER PROGRAMMING SUPERVISOR-C Referring Provider Active Start: February 09, 2025 [...] 2025 End: January 19, 2025 Anu Hernandes COMPUTER PROGRAMMING SUPERVISOR-C Attending physician Active Start: January 19, 2025 End: January 19, 2025 Anu Hernandes COMPUTER PROGRAMMING SUPERVISOR-C Referring Provider Active Start: January 19, 2025 End: January 19, 2025 Team Status: Inactive Member Role/Relationship Status Dates Dr. Alejandro Rosales MD Primary care physician Active Start: January 20, 2025 End: January 20, 2025 Anu Hernandes NP-C Attending physician Active Start: January 20, 2025 End: January 20, 2025 Anu Hernandes COMPUTER PROGRAMMING SUPERVISOR-C Referring Provider Active Start: January 20, 2025 End: January 20, 2025 Team Status: Inactive Member Role/Relationship Status Dates Dr. Alejandro Rosales MD Primary care physician Active Start: February 01, 2025 End: February 01, 2025 Anu Hernandes COMPUTER PROGRAMMING SUPERVISOR-C Attending physician Active Start: February 01, 2025 End: February 01, 2025 Anu Hernandes COMPUTER PROGRAMMING SUPERVISOR-C Referring Provider Active Start: February 01, 2025 End: February 01, 2025 Team Status: Active Member Role/Relationship Status Dates Dr. Alejandro Rosales MD Primary care physician Active Start: February 03, 2025 Anu Hernandes COMPUTER PROGRAMMING SUPERVISOR-C Referring Provider Active Start: February 03, 2025 Anu Hernandes COMPUTER PROGRAMMING SUPERVISOR-C Nurse Practitioner Active Start: February 03, 2025 Dr. Wally Rodriges DO Attending physician Active Start: February 03, 2025 Team Status: Inactive Member Role/Relationship Status Dates Dr. Alejandro Rosales MD Primary care physician Active Start: February 09, 2025 End: February 09, 2025 Anu Hernandes NP-C Attending physician Active Start: February 09, 2025 End: February 09, 2025 Anu Hernandes COMPUTER PROGRAMMING SUPERVISOR-C Referring Provider Active Start: February 09, 2025 [...] or prosecute any alcohol or drug abuse patient.[facility] Scheduled Active and Recently Administ ered [...] Parameters not met) 0831 (Given - Provider: Brooek Hernandez, Student Nurse)1252 (Given - Provider: Kennedy [...] over 2 minutes. Telemetry required except for AVIAN KEEPER patients on [address] 6 and 7. [...] glucose is greater than 200md/dl, then notify Spike Machine Operator. And BLOOD GLUCOSE (POC DEVICE) (CANCELED) Routine, [...] at 2019, Until Specified, Who to Notify: Spike Machine Operator, For all Blood Glucose LESS THAN 80 mg/dl, notify Spike Machine Operator after treatment per Hypoglycemia in Non- Adults [...] BE BASED ON THE PRIMARY CLINICAL RECORDS. [facility]. provides no warranty or guarantee of the accuracy or completeness of information in this document.
[2025-05-25 01:27] LABS: Reflex Lactate? Y
[2025-05-25] MEDS: Albumin Human 25% (100 mL) 25 GM/100 ML BAG IV (01:29)
[2025-05-25] MEDS: 0.9% Saline Lock 10 ML Syringe IV ×5 (01:30→22:37)
[2025-05-25] MEDS: dexMEDEtomidine 400 MCG in 0.9% Normal Saline (100mL Bag) 96 ML 11.9 MCG CONT INF ×4 (03:16→19:27)
[2025-05-25 05:14] LABS: Free T3 1.7 pg/mL (2.18-3.98)
[2025-05-25 05:19] LABS: Allen Test Positive; Base Excess -4 mmol/L (-2 to +2); FI02 60.0; PEEP 10; PO2 113 mmHG (75-100); RR 14; SITE L Radial; SO2 98 % (95-99)
--- NOTE | 2025-05-25 05:20 | RAD_ITS ---
PROCEDURE: CXR FOR LINE PLACEMENT 05/25/2025 REASON FOR EXAM: ETT PLACEMENT TECHNIQUE: Procedure Code: RADCXRLP Modality: DX Procedure: CXR FOR LINE PLACEMENT COMPARISON: May 28, 2025 FINDINGS: There is an ET tube in position with its tip 4.7 cm above the level of the alberto. There is a enteric tube seen with its tip below the field of view of this exam. There is continued consolidation in the right mid and upper lung. There is blunting of the costophrenic angles in the right and left with trace bilateral effusions. There is no acute bony abnormality. RAD/CXR for Line Placement IMPRESSION: Tubes and lines in position There is continued consolidation in the right mid and upper lung. There is blunting of the costophrenic angles in the right and left with trace b ilateral effusions. Reading [facility]
[2025-05-25] MEDS: fentaNYL drip 100 ML 10 MCG CONT INF ×2 (05:41→13:59)
--- NOTE | 2025-05-25 06:12 | NURSING ---
Precedex gtt showing as infused on OCT at 0500. The bag of precedex was over half full, bag rescanned to show that it is infusing on MAR and not infused.
[2025-05-25] MEDS: Piperacil/Tazobactam 3.375 GM in 0.9% Normal Saline (50mL MB+) 50 ML IV ×3 (06:16→20:21)
--- NOTE | 2025-05-25 06:49 | PCM.PN.HOSP ---
Reason for Visit Chief Complaint: SOB. Subjective Subjective Still on vent. FiO2 to 40%. Objective Data Objective Data Vital Signs: Vital Signs Temp Pulse Resp BP Pulse Ox O2 Del Method O2 Flow Rate 37.1 C 54 L 14 115/66 99 Mechanical Ventilator 15 05/25/25 05:00 05/25/25 06:00 05/25/25 06:00 05/25/25 06:00 05/25/25 06:00 05/25/25 06:00 05/24/25 15:55 FiO2 60 05/25/25 06:00 Oxygen Flow Rate (L/min) 15 Oxygen Delivery Method Mechanical Ventilator Weight: 96.4 kg Body Mass Index (BMI) 36.4 Intake & Output: Intake and Output for Last 24 Hours 05/23/25 05/24/25 05/25/25 23:59 23:59 23:59 Intake Total 2484.49 / 2494.19 893.15 / 893.15 Output Total 175 / 175 150 / 150 Balance 2309.49 / 2319.19 743.15 / 743.15 Lab / Micro Data 05/25/25 09:55 05/25/25 09:55 Labs: Laboratory Results - last 24 hr 05/24/25 15:54: Sodium 133, Potassium 4.5, Chloride 97 L, Carbon Dioxide 20.0 L, Anion Gap 17 H, BUN 17, Creatinine 1.10, Estim Creat Clear Calc 53.54, Est GFR (MDRD) Non-Af 53 L, BUN/Creatinine Ratio 15.8, Glucose 350 H, Calcium 9.5, Total Bilirubin 2.07 H, AST 26, ALT 14, Alkaline Phosphatase 136 H, Troponin T High Sens 24 H D, Total Protein 7.5, Albumin 3.8, Globulin 3.7, Albumin/Globulin Ratio 1.0, TSH 14.100 H 05/24/25 16:07: WBC 33.5 H*, RBC 5.04, Hgb 13.4, Hct 44.5, MCV 88.3, MCH 26.6 L, MCHC 30.1 L, RDW Std Deviation 54.0 H, RDW Coeff of Angela 16.8 H, Plt Count 258, MPV 10.4, Immature Gran % (Auto) 1.100 H, Neut % (Auto) 81.2 H, Lymph % (Auto) 9.4 L, [place] % (Auto) 7.9, Eos % (Auto) 0.1, Baso % (Auto) 0.3, Absolute Neuts (auto) 27.2 H, Absolute Lymphs (auto) 3.14, Nucleated RBC % 0, Differential Comment SCANNED, Diff Path Review December, Platelet Estimate ADEQUATE, PT 17.4 H, INR 1.4, APTT 29.5, Lactic Acid 4.5 H*, NT pro BNP II 2162 H 05/24/25 16:45: Urine Color Yellow, Urine Clarity Cloudy, Urine pH 5.0, Ur Specific [place] 1.020, Urine Protein 500 H, Urine Glucose (UA) 1000 H, Urine Ketones Negative, Urine Occult Blood 250 H, Urine Nitrite Negative, Urine Bilirubin 1 H, Urine Urobilinogen 4 H, Ur Leukocyte Esterase 100 H, Urine RBC 10-25 SEEN, Urine WBC 10-25 SEEN, Ur Squamous Epith Cells 10-25 SEEN, Ur Transition Epith Cell 5-10 SEEN, Urine Bacteria 0 SEEN, Hyaline Casts 0-5 SEEN, Fine Granular Casts 0-5 SEEN, Urine Mucus 0 SEEN 05/24/25 20:07: Lactic Acid 2.4 H*, Troponin T Hi Sens 2 Hr 76 H* 05/24/25 21:19: Lactic Acid 2.0 05/24/25 22:00: Troponin T High Sens 85 H* D 05/25/25 03:43: Phosphorus 4.1, Free T4 1.60 H, Free T3 pg/dL 1.7 L Micro: Microbiology 05/24/25 21:00 Mucosa - Nasopharyngeal Respiratory Panel (PCR) - Final 05/24/25 16:45 Urine Catheter - [place] Legionella Antigen - Final 05/24/25 16:45 Urine Catheter - [place] Streptococcus pneumoniae Antigen (M - Final 05/24/25 16:07 Mucosa - Nose SARS-CoV-2, Influenza & RSV (PCR) - Final ABG Data ABG results: ABG 05/24/25 05/24/25 05/25/25 16:10 19:05 05:15 Specimen Type ART ART ART Sample Site L Radial R Radial L Radial pH 7.17 L* 7.22 L 7.34 L Bicarbonate Actual 24.3 21.6 L 22.0 Total CO2 26 23 23 Base Excess -4 L -6 L -4 L O2 Saturation 94 L 91 L 98 O2 % 100.0 80.0 60.0 ABG pCO2 67.4 H* 53.3 H 40.5 ABG pO2 93 73 L 113 H Kenneth Test Positive Positive Positive Respiration Rate 14 14 O2 Delivery Device Adult Vent Adult Vent Adult Vent Vent Mode AC/vc+ AC AC Tidal Volume 450.0 450.0 POC PEEP 10 10 10 Crit Call To/Read Back Yes Blood Gas Notified Whom stiven Blood Gas Notified Time 16:12:10 Radiography Diagnostic Testing: Radiology Impression Chest X-Ray 05/24/25 15:58 IMPRESSION: 1. Endotracheal and enteric tubes likely in appropriate positions. 2. Dense right mid upper lung consolidation. 3. Mild cardiomegaly and mild pulmonary vascular congestion. Reading Location: [facility] Brain CT 05/24/25 16:01 IMPRESSION: 1. No evidence of acute intracranial pathology. 2. Moderate chronic small-vessel ischemic changes and old infarcts with encephalomalacia involving the left temporal lobe and right cerebellar hemisphere. Reading Location: [facility] Chest CTA 05/24/25 16:01 IMPRESSION: 1. No evidence of pulmonary embolus. 2. Low ET tube position, terminating 1.7 cm above the alberto. Withdrawal of approximately 2.0 cm is suggested for better positioning. 3. Large right upper lobe consolidation, consistent with pneumonia. 4. Dependent right middle and bilateral lower lobes opacities, possibly atelectasis and/or infiltrates. 5. Cardiomegaly with vascular congestion and interstitial edema. 6. Moderate right and small left pleural effusions. 7. Persistent mediastinal lymphadenopathy, mildly increased since the prior study. Reading Location: [id number] Chest X-Ray 05/24/25 20:25 IMPRESSION: 1. Low-lying ET tube terminating 2.8 cm above the alberto. Withdrawal of roughly 1.0-1.5 cm is suggested for better positioning. 2. Persistent bilateral lung opacities, without significant change. 3. Cardiomegaly with mild vascular congestion. 4. Small bilateral pleural effusions. Reading Location: [facility] Chest X-Ray 05/25/25 05:20 IMPRESSION: Tubes and lines in position There is continued consolidation in the right mid and upper lung. There is blunting of the costophrenic angles in the right and left with trace bilateral effusions. Reading Location[facility] Physical Exam Narrative POCUS: Indication is for respiratory failure and shock. IVC was dilated noncompressible with inspiration. Measuring 2 cm. Noted right lower lobe pleural effusion. Const alert and no apparent distress HEENT head/scalp atraumatic and moist oral mucous membranes Resp normal respiratory effort, no retractions, no use of accessory muscles and clear to auscultation bilaterally Cardio regular rate, regular rhythm, S1 normal heart sound and S2 normal heart sound GI normal to inspection, nondistended, normoactive bowel sounds, soft to palpation, non-tender and non-distended Extremity normal to inspection and full ROM Neuro Sensorium / Orientation: awake and alert Assessment & Plan Assessment/Plan (1) Sepsis: QUALIFIERS: Acute respiratory failure type: unspecified Sepsis acute organ dysfunction status: with acute organ dysfunction Sepsis type: sepsis due to unspecified organism Severe sepsis acute organ dysfunction type: acute respiratory failure Severe sepsis shock status: without septic shock Qualified Code(s): A41.9 - Sepsis, unspecified organism; R65.20 - Severe sepsis without septic shock; J96.00 - Acute respiratory failure, unspecified whether with hypoxia or hypercapnia (2) Pneumonia: QUALIFIERS: Laterality: right Lung location: upper lobe of lung Pneumonia type: due to unspecified organism Qualified Code(s): J18.9 - Pneumonia, unspecified organism (3) COPD exacerbation: (4) CHF exacerbation: QUALIFIERS: Heart failure type: combined systolic and diastolic Qualified Code(s): I50.43 - Acute on chronic combined systolic (congestive) and diastolic (congestive) heart failure (5) Acute respiratory failure with hypoxia and hypercapnia: (6) Acute cystitis with hematuria: (7) Atrial fibrillation: QUALIFIERS: Atrial fibrillation type: longstanding persistent Qualified Code(s): I48.11 - Longstanding persistent atrial fibrillation (8) Chronic anticoagulation: (9) Hyperglycemia due to type 2 diabetes mellitus: QUALIFIERS: Diabetes mellitus computer terminal operator insulin use: without computer terminal operator use Qualified Code(s): E11.65 - Type 2 diabetes mellitus with hyperglycemia (10) Hyperbilirubinemia: (11) Obesity (BMI 30.0-34.9): PLAN: Plan Acute hypercapnic and hypoxic respiratory failure intubated 05/24 2/2 pneumonia and pleural effusion +/1 AECOPD CCM consult on methylpred Septic shock POA SOFA 14 2/2 pneumonia follow up cultures pip/tazo and vancomycin on norepinephrine Pneumonia extensive right sided infiltrate with pleural effusions. strep and legionella negative, SCx pending suspected gram negative Chronic conditions: DM-2: start SSI. a1c 6 on 04/19 Paroxysmal atrial fibrillation; Hold apixaban for now in favor of full-dose LMWH. Obesity (class I); with a BMI of 34.6 this admission plus MURIEL History of colon cancer; s/p colonoscopy 2021 which showed proximal nearly obstructing colon mass and biopsy positive for adenocarcinoma with no evidence of metastatic disease s/p Right hemicolectomy August 17, 2021 for stage IIa (pT3 pNO and MO) disease followed by Dr. Robbins of the oncology service with subsequent noting of mediastinal lymphadenopathy on February 09, 2025 History of embolic Left MCA CVA (~2006); residual Right-sided weakness and impaired speech [with most recent CVA 11/08/2024] plus history of TIA x 4 Essential hypertension; on furosemide - Hold scheduled antihypertensives in light septic shock Hyperlipidemia;Hold statin Hypothyroidism; TSH 14. Free T4 1.6. Continue levothyroxine at current dose. DVT/GI prophylaxis - anticoagulated Charges/Coding Visit Charges Inpatient E&M: 31272 [facility] [[email or web address]] Hosp L3
[2025-05-25 07:07] LABS: Cholesterol 64 mg/dL (<=200); Low Density Lipoprotein Calc. 1 mg/dL; Pro- Brain NATRIURETIC PEPTIDE 5718 pg/mL (<=900); Triglycerides 29 mg/dL; Very Low Density Lipoprotein 6 mg/dL (5-40); cholesterol:hdl ratio screen 1.23
--- NOTE | 2025-05-25 07:43 | EX.PCM.CONCC ---
Assessment & Plan Assessment/Plan (1) Acute respiratory failure with hypoxia and hypercapnia: PLAN: Plan RECOMMENDATIONS: 1. Continue assist-control mode of mechanical ventilation. Wean FiO2 and PEEP to maintain saturations at or above 90%. 2. Obtain echocardiogram. 3. Hold diuretics for now. 4. Continue empiric broad-spectrum antimicrobials. 5. Continue bronchodilators and steroids. 6. Wean Levophed to maintain a mean arterial pressure at or above 65 mmHg. 7. Continue appropriate GI and DVT prophylaxis. IMPRESSIONS: 1. Acute respiratory failure with hypoxemia and hypercapnia Secondary to severe community-acquired pneumonia requiring intubation and mechanical ventilatory support. The patient's acid-base status has improved following intubation. She will be continued on empiric broad-spectrum antimicrobials, pending infectious workup. Continue to wean FiO2 and PEEP to maintain saturations at or above 90%. Corticosteroids will be continued. 2. Septic shock The patient presented with sepsis due to suspected pneumonia with acute sepsis related organ dysfunction as evidenced by acute respiratory failure requiring invasive mechanical ventilatory support, lactic acidemia and hyperbilirubinemia. While there was initial fluid resuscitation undertaken, there was clinical concern for fluid overload and possible CHF. Therefore, the patient was ultimately placed on low-dose vasopressor support to maintain hemodynamic stability. Will continue supportive care including antimicrobials, pending infectious workup. In light of her elevated troponin levels, echocardiogram will be obtained. 3. NSTEMI Most likely secondary to demand ischemia in the setting of #2. Echocardiogram will be obtained. 4. History of diabetes mellitus/obstructive sleep apnea/paroxysmal atrial fibrillation/history of colon cancer/history of CVA/hypothyroidism Complicates care, management, recovery and prognosis. Continue supportive measures as noted above. Will hold on initiating tube feeding today. Continue Synthroid per home regimen. CODE STATUS: DNR CCA TIME: 40 minutes of critical care time, independent of procedures, was spent addressing the patient's acute respiratory failure with hypoxemia and hypercapnia, septic shock, NSTEMI, review of all data and collaboration with the care team. HPI Consult Data Date of Consult: 05/25/25 HPI Narrative Reason for Consultation: Acute respiratory failure HPI Narrative: The patient is a 75-year-old female, with a history as outlined below, who presented to the emergency department via EMS on May 24 with complaints of shortness of breath. The patient has been followed in the pulmonary medicine office, most recently in March 2025, due to a history of restrictive lung mechanics and obstructive sleep apnea. 6-minute walk test completed in February 2025 demonstrated the need for 2 L/min of supplemental oxygen with exertion. Her titration polysomnogram indicated the need for BiPAP with a pressure support of 14/10 cm of water. The patient's medical history is also significant for colon cancer status post right hemicolectomy in 2021, diabetes mellitus, hyperlipidemia, hypothyroidism and history of atrial fibrillation. On presentation to the emergency department, the patient was noted to be febrile, tachycardic and tachypneic. White blood cell count was elevated at 34,000. Initial arterial blood gas was notable for a pH of 7.17 with a pCO2 of 67 and pO2 of 93. Chemistry profile was notable for a bicarbonate of 20 with anion gap of 17. Lactate was elevated at 4.5. Total bilirubin was increased to 2.07. BNP was elevated at 2162 with a troponin of 76. According to documentation, the patient arrived to the emergency department saturating 64% on room air. She was noted to be in respiratory distress and minimally responsive. Therefore, the patient was intubated. CT head revealed moderate chronic small vessel ischemic changes and old infarcts with encephalomalacia involving the left temporal lobe and right cerebellar hemisphere. CTA chest showed no evidence for pulmonary embolism but did reveal bilateral pleural effusions and a dense right upper lobe consolidation along with mediastinal adenopathy. The patient was placed on antimicrobials, bronchodilators and steroids. She was admitted to the medical intensive care unit for further management. I did call and personally speak with Melvina, one of the patient's 2 daughters, who indicated that the patient did not in fact have DNR paperwork filled out. She did, nevertheless, confirm that they would not want CPR or cardiac resuscitation undertaken if the patient's heart were to stop. Accordingly, the patient's CODE STATUS was updated to DNR CCA. [facility] Medical History (Updated 05/25/25 @ 04:[address] Klever Piedra DO) Atrial fibrillation History of diabetes mellitus Chronic anticoagulation Pulmonary hypertension Colon cancer Mitral stenosis Gout (HFpEF) heart failure with preserved ejection fraction Hypothyroidism Noncompliance with medication regimen Pre-op evaluation Obesity (BMI 30.0-34.9) Hypokalemia Abnormal gastrointestinal PET scan Contusion Subtherapeutic international normalized ratio (INR) Stroke/cerebrovascular accident Post-menopausal Thyroid disease Diabetes TIA (transient ischemic attack) Dietary restriction Diarrhea Gastric reflux History of edema History of irregular heartbeat Cardiology follow-up encounter Cancer Colonic mass Elevated TSH Anemia Wears glasses Wears dentures Depression Bruising Arthritis Walker as ambulation aid Ambulates with cane Easy bruising Former smoker COPD (chronic obstructive pulmonary disease) Shortness of breath on exertion History of echocardiogram Chronic anticoagulation PAD (peripheral artery disease) History of rheumatic fever as a child History of anxiety PFO with atrial septal aneurysm Atrial thrombus CVA (cerebral vascular accident) (~2006) Essential hypertension Chronic combined systolic and diastolic heart failure Home Medications ?Medication ?Instructions ?Recorded ?Last Taken ?Type acetaminophen 325 mg tablet 650 mg (2 x 325 mg) PO TID PRN 11/25/24 12/17/24 Rx fever/pain #1 TAB albuterol sulfate 90 mcg/actuation 2 puff inhalation Q4H PRN Wheezing 11/25/24 Unknown Rx aerosol inhaler #1 g dapagliflozin propanediol 10 mg 10 mg PO DAILY dm #30 tabs 11/25/24 12/17/24 Rx tablet (Farxiga) fluticasone fur. 200 mcg-umeclid 1 inh inhalation DAILY sob #1 inh 11/25/24 Unknown Rx 62.5 mcg-vilant 25 mcg inhalat.powder (Trelegy Ellipta) apixaban 5 mg tablet (Eliquis) 5 mg PO BID blood thinner #60 tabs 12/07/24 12/17/24 Rx atorvastatin 40 mg tablet 40 mg PO QHS cholesterol #30 tabs 12/07/24 12/16/24 Rx furosemide 40 mg tablet 40 mg PO QDAY 03/25/25 Unknown History ipratropium bromide 21 mcg (0.03 1 - 2 spray intranasal Q6 PRN 03/31/25 Unknown History %) nasal spray allergy symptoms BIPAP -Bilevel Positive Airway 05/16/25 Unknown History Pressure ([facility] ONLY) levothyroxine 88 mcg tablet 100 mcg PO DAILY THYROID 05/24/25 Unknown History (Euthyrox) Allergy/AdvReac Type Severity Reaction Status Date / Time codeine Allergy Severe anaphylaxis Verified 05/23/25 10:35 Family History Father Myocardial infarction Cancer lung CVA (cerebral vascular accident) Mother Colon cancer Brother Diabetes CAD (coronary artery disease) open heart surgery Surgical History Hx of right hemicolectomy S/P right hemicolectomy Hx of colonoscopy History of hysterectomy History of appendectomy History of cholecystectomy Social History household members: other details: 22 year old grandson lives with her, but he works nights. Smoking Status: Former smoker how long ago did patient quit smokin years ago alcohol intake: never substance use type: does not use caffeine: Yes Type: tea Number of servings: 2 ROS Review of Systems ROS Unobtainable: due to endotracheal tube Physical Exam Const Constitutional Narrative: Intubated, sedated mechanically ventilated. No ventilator dyssynchrony noted. HEENT normocephalic and head/scalp atraumatic Mouth: endotracheal tube in place and OG tube in place Eyes EOMs intact bilaterally and conjunctivae normal Neck supple General: trachea midline Chest inspection of chest normal Resp Auscultation: rhonchi and diminished lung sounds Cardio Cardio Narrative: Currently in atrial fibrillation Rate: bradycardia Rhythm: abnormal rhythm GI soft to palpation and non-tender Extremity General Extremity: Negative for clubbing or edema Skin General Skin Exam: venous stasis Neuro Sensorium / Orientation: sedated on vent Lab / Micro Data 05/24/25 16:07 05/24/25 15:54 Labs: Laboratory Results - last 24 hr 05/24/25 15:54: Sodium 133, Potassium 4.5, Chloride 97 L, Carbon Dioxide 20.0 L, Anion Gap 17 H, BUN 17, Creatinine 1.10, Estim Creat Clear Calc 53.54, Est GFR (MDRD) Non-Af 53 L, BUN/Creatinine Ratio 15.8, Glucose 350 H, Calcium 9.5, Total Bilirubin 2.07 H, AST 26, ALT 14, Alkaline Phosphatase 136 H, Troponin T High Sens 24 H D, Total Protein 7.5, Albumin 3.8, Globulin 3.7, Albumin/Globulin Ratio 1.0, TSH 14.100 H 05/24/25 16:07: WBC 33.5 H*, RBC 5.04, Hgb 13.4, Hct 44.5, MCV 88.3, MCH 26.6 L, MCHC 30.1 L, RDW Std Deviation 54.0 H, RDW Coeff of Angela 16.8 H, Plt Count 258, MPV 10.4, Immature Gran % (Auto) 1.100 H, Neut % (Auto) 81.2 H, Lymph % (Auto) 9.4 L, [place] % (Auto) 7.9, Eos % (Auto) 0.1, Baso % (Auto) 0.3, Absolute Neuts (auto) 27.2 H, Absolute Lymphs (auto) 3.14, Nucleated RBC % 0, Differential Comment SCANNED, Diff Path Review December, Platelet Estimate ADEQUATE, PT 17.4 H, INR 1.4, APTT 29.5, Lactic Acid 4.5 H*, NT pro BNP II 2162 H 05/24/25 16:45: Urine Color Yellow, Urine Clarity Cloudy, Urine pH 5.0, Ur Specific [place] 1.020, Urine Protein 500 H, Urine Glucose (UA) 1000 H, Urine Ketones Negative, Urine Occult Blood 250 H, Urine Nitrite Negative, Urine Bilirubin 1 H, Urine Urobilinogen 4 H, Ur Leukocyte Esterase 100 H, Urine RBC 10-25 SEEN, Urine WBC 10-25 SEEN, Ur Squamous Epith Cells 10-25 SEEN, Ur Transition Epith Cell 5-10 SEEN, Urine Bacteria 0 SEEN, Hyaline Casts 0-5 SEEN, Fine Granular Casts 0-5 SEEN, Urine Mucus 0 SEEN 05/24/25 20:07: Lactic Acid 2.4 H*, Troponin T Hi Sens 2 Hr 76 H* 05/24/25 21:19: Lactic Acid 2.0 05/24/25 22:00: Troponin T High Sens 85 H* D 05/25/25 03:43: Phosphorus 4.1, NT pro BNP II 5718 H, Triglycerides 29, Cholesterol 64, LDL Cholesterol, Calc 1, VLDL Cholesterol 6, HDL Cholesterol 52, Cholesterol/HDL Ratio 1.23, Free T4 1.60 H, Free T3 pg/dL 1.7 L Micro: Microbiology 05/24/25 21:00 Mucosa - Nasopharyngeal Respiratory Panel (PCR) - Final 05/24/25 16:45 Urine Catheter - [place] Legionella Antigen - Final 05/24/25 16:45 Urine Catheter - [place] Streptococcus pneumoniae Antigen (M - Final 05/24/25 16:07 Mucosa - Nose SARS-CoV-2, Influenza & RSV (PCR) - Final ABG Data ABG results: ABG 05/24/25 05/24/25 05/25/25 16:10 19:05 05:15 Specimen Type ART ART ART Sample Site L Radial R Radial L Radial pH 7.17 L* 7.22 L 7.34 L Bicarbonate Actual 24.3 21.6 L 22.0 Total CO2 26 23 23 Base Excess -4 L -6 L -4 L O2 Saturation 94 L 91 L 98 O2 % 100.0 80.0 60.0 ABG pCO2 67.4 H* 53.3 H 40.5 ABG pO2 93 73 L 113 H Kenneth Test Positive Positive Positive Respiration Rate 14 14 O2 Delivery Device Adult Vent Adult Vent Adult Vent Vent Mode AC/vc+ AC AC Tidal Volume 450.0 450.0 POC PEEP 10 10 10 Crit Call To/Read Back Yes Blood Gas Notified Whom klusty Blood Gas Notified Time 16:12:10 Imaging Radiology Impression Chest X-Ray 05/24/25 15:58 IMPRESSION: 1. Endotracheal and enteric tubes likely in appropriate positions. 2. Dense right mid upper lung consolidation. 3. Mild cardiomegaly and mild pulmonary vascular congestion. Reading [facility] CT 05/24/25 16:01 IMPRESSION: 1. No evidence of acute intracranial pathology. 2. Moderate chronic small-vessel ischemic changes and old infarcts with encephalomalacia involving the left temporal lobe and right cerebellar hemisphere. Reading Location: [id number] Chest CTA 05/24/25 16:01 IMPRESSION: 1. No evidence of pulmonary embolus. 2. Low ET tube position, terminating 1.7 cm above the alberto. Withdrawal of approximately 2.0 cm is suggested for better positioning. 3. Large right upper lobe consolidation, consistent with pneumonia. 4. Dependent right middle and bilateral lower lobes opacities, possibly atelectasis and/or infiltrates. 5. Cardiomegaly with vascular congestion and interstitial edema. 6. Moderate right and small left pleural effusions. 7. Persistent mediastinal lymphadenopathy, mildly increased since the prior study. Reading Location: [facility] Chest X-Ray 05/24/25 20:25 IMPRESSION: 1. Low-lying ET tube terminating 2.8 cm above the alberto. Withdrawal of roughly 1.0-1.5 cm is suggested for better positioning. 2. Persistent bilateral lung opacities, without significant change. 3. Cardiomegaly with mild vascular congestion. 4. Small bilateral pleural effusions. Reading Location: [facility] Chest X-Ray 05/25/25 05:20 IMPRESSION: Tubes and lines in position There is continued consolidation in the right mid and upper lung. There is blunting of the costophrenic angles in the right and left with trace bilateral effusions. Reading Location: [facility] Charges/Coding Procedures Hospitalists Procedures: 28108 Critical Care 1st Hr
--- NOTE | 2025-05-25 08:46 | ECHOD_ITS ---
Reason For Study Reason For Study: DYSPNEA Procedure This was a 2D Doppler, Color Flow transthoracic echocardiogram. The patient was scanned supine. Patient was on ventillator during exam. Exam performed portable in ICU/CCU. Left Ventricle Normal size and thickness. Borderline LV systolic function. Estimated LVEF 45%. At least stage I diastolic dysfunction. Elevated left atrial filling pressures. Right Ventricle Normal right ventricle. Atria There is severe biatrial dilatation. Mitral Valve Severe mitral valve annular calcification. Moderate to severe aortic valve stenosis. Mean peak gradient 9 mmHg. Estimated valve area 0.8 cm??. Tricuspid Valve Trivial to mild tricuspid valve regurgitation. Estimated RVSP 35 mmHg. Aortic Valve Aortic sclerosis, no stenosis. Pulmonic Valve The pulmonic valve is not well visualized. Great Vessels Normal sized aortic root. Pericardium/Pleural No pericardial effusion. MMode/2D Measurements & Calculations LVIDd: 3.5 cm IVSd: 1.0 cm LVOT diam: 1.8 cm LVIDs: 2.5 cm LVPWd: 0.95 cm LVOT area: 2.5 cm2 RVDd: 4.0 cm FS: 29.6 % asc Aorta Diam: 2.8 cm LAV(MOD-bp): 70.5 ml LVAd ap4: 17.2 cm2 LAV(MOD-bp) Indexed: 35.2 ml/m2 LVLd ap4: 6.3 cm LAV(MOD-sp2): 69.9 ml EDV(MOD-sp4): 38.4 ml LAV(MOD-sp4): 68.1 ml EDV(sp4-el): 39.6 ml LVAs ap4: 12.1 cm2 LVLs ap4: 5.6 cm ESV(MOD-sp4): 22.7 ml ESV(sp4-el): 22.2 ml EF(MOD-sp4): 41.0 % EF(sp4-el): 43.8 % LVAd ap2: 18.0 cm2 SV(MOD-sp4): 15.8 ml SV(MOD-sp2): 20.4 ml LVLd ap2: 6.3 cm SI(MOD-sp4): 7.9 ml/m2 SI(MOD-sp2): 10.2 ml/m2 EDV(MOD-sp2): 42.8 ml EDV(sp2-el): 43.8 ml LVAs ap2: 12.4 cm2 LVLs ap2: 5.6 cm ESV(MOD-sp2): 22.4 ml ESV(sp2-el): 23.3 ml EF(MOD-sp2): 47.7 % SV(sp4-el): 17.4 ml Ao sinus diam: 2.[address] Junction: 1.9 cm LA dimension(2D): 5.1 cm LA A4 area: 23.6 cm2 RA A4 area: 15.6 cm2 TAPSE: 1.5 cm Time Measurements MV dec time: 0.70 sec Doppler Measurements & Calculations MV E max dmitry: 213.6 cm/sec Lat Peak E' Dmitry: 4.4 cm/sec Med Peak E' Dmitry: 5.4 cm/sec E/E' lat: 48.3 E/E' med: 39.6 MV V2 max: 204.6 cm/sec Ao V2 max: 137.2 cm/sec LV V1 max: 98.8 cm/sec MV max P.8 mmHg Ao max P.6 mmHg LV V1 max P.9 mmHg MV V2 mean: 147.5 cm/sec Ao V2 mean: 91.8 cm/sec LV V1 mean P.3 mmHg MV mean P.3 mmHg Ao mean P.9 mmHg LV V1 mean: 71.9 cm/sec MV V2 VTI: 89.5 cm Ao V2 VTI: 25.5 cm LV V1 VTI: 16.7 cm MVA(VTI): 0.46 cm2 AV (velocity ratio): 0.66 RUBENS(I,D): 1.6 cm2 RUBENS(V,D): 1.8 cm2 SV(LVOT): 41.5 ml PA V2 max: 93.8 cm/sec TR max dmitry: 221.4 cm/sec TR max P.7 mmHg ECHO/Echo Complete Interpretation Summary Borderline LV systolic function. Estimated LVEF 45%. At least stage I diastolic dysfunction. Elevated left atrial filling pressures. There is severe biatrial dilatation. Severe mitral valve annular calcification. Moderate to severe aortic valve sten osis. Mean peak gradient 9 mmHg. Estimated valve area 0.8 cm??. Trivial to mild tricuspid valve regurgitation. Estimated RVSP 35 mmHg. Aortic sclerosis, no stenosis. Ordering Physician: Wally Rodriges Referring Physician: Alejandro Rosales MD Performed By: Rani Zambrano RDCS
[2025-05-25] MEDS: Chlorhexidine 15 ML PO ×2 (09:42→20:32)
[2025-05-25 10:16] LABS: Hematocrit 42.0 % (37-47); Hemoglobin 13.3 g/dL (12.0-15.0); Immature Granulocytes Count 0.480 X10^3/uL (0.0-0.0); Mean Corp Hgb Conc 31.7 g/dL (32-36); Mean Corpuscular Volume 84.8 fL (81-99); Mean Platelet Vol. 10.0 fl (6.2-12.0); NRBC Flagged by Analyzer 0 % (0-5); POSITIVE COUNT YES; POSITIVE DIFFERENTIAL YES; Platelet Count 183 K/mm3 (150-450); RBC Distribution Width CV 16.8 % (11.6-14.6); RBC Distribution Width SD 51.3 fl (35.1-43.9); Red Blood Count 4.95 M/mm3 (4.2-5.4)
[2025-05-25 10:18] LABS: White Blood Count 32.1 K/mm3 (4.4-11.0)
[2025-05-25 10:19] LABS: Differential Indicated SCAN CRITERIA MET
[2025-05-25] MEDS: Pantoprazole Sodium 40 MG in 0.9% Normal Saline (100mL MB+) 100 ML 330 MG IV (10:29)
[2025-05-25 10:35] LABS: Differential Comment SCANNED
[2025-05-25 10:46] LABS: Anion Gap 13 (5-15); BUN 26 mg/dL (4-19); BUN/Creat Ratio 20.8 RATIO (10-20); Calcium,Total 8.5 mg/dL (7.6-11.0); Carbon Dioxide 19.7 mmol/L (21.0-32.0); Chloride 105 mmol/L (98-108); Estimated Creatinine Clearance 44.46 ml/min (50-250); Glucose 241 mg/dL (70-99); Potassium 4.8 mmol/L (3.3-5.1)
[2025-05-25] MEDS: Vancomycin HCl 1,000 MG in 0.9% Normal Saline (250mL Bag) 250 ML 250 MG IV ×2 (10:52→22:36)
[2025-05-25] MEDS: CHLORHEXIDINE GLUC 2% CLOTH 1 EACH TOWELETTE TOPICAL (13:56)
--- NOTE | 2025-05-25 15:35 | CASEMGMT ---
Social Work SW?to room for initial transition planning/care coordination?assessment.?PT is currently intubated and pt dgt Suzan at the bedside. HCPOA on file listing pt dgt Melvina and primary HCPOA and Suzan as secondary. SW?introduced self and role at [facility]. Suzan agreeable to assist with answering assessment questions and called Melvina on phone to assist with answering questions. Care providers, pharmacy, and demographics verified. PCP: Alejandro Rosales Specialists: Itzel - oncology, Bhavana - Neurologist, Karl Hand - Pulmonology, [facility] - plastic surgery Preferred [facility]acy: [facility] Insurance: Anthem Medicare Prescription Benefit:? Yes Living Will/HPOA:? Yes. Pt has a living will and health care POA on file at [facility] naming dgts Melvina Waseity and Suzan Fluharty LNOK: dgts Melvina Waseity and Suzan Fluharty Living Arrangements: Pt lives in a mobile home with a ramped entrance. Pt's grandson lives with pt and works third shift. Pt has a stroke in November that has left pt with aphasia. Family reports this is pt's 6th or 7th stroke. Pt's family has installed camera's throughout the home to be able to check on pt. Pt's dgt Melvina visits pt daily for support. Pt is independent with all ADLs and IADLs Transportation:? Pt does not drive. Pt's daughters provide needed transportation DME: ? walker, cane, shower chair, raised toilet seat, walk in shower, oxygen and bipap through [employer]. Phone call to [facility] and oxygen needs verified. HHC/SNF: Pt previously in [facility] Inpatient Rehab and recieves outpatient ST through [facility] PLAN: Pt is currently intubated. Family is hopeful that pt will be able to return home and to previous level of independence. SW/RNCM will follow for discharge planning at the appropriate time. ABA Rodríguez
[2025-05-25] MEDS: 0.9% Normal Saline (250mL Bag) 250 ML 15 ML IV (22:37)
[2025-05-26] VITALS (37 sets, daily range): BP systolic 100–125; BP diastolic 47–75; PULSE 52–87; RESP 11–24; TEMP 37.2–37.6; O2SAT 92–97; BMI 36.5
[2025-05-26] MEDS: fentaNYL drip 100 ML 10 MCG CONT INF ×2 (00:07→08:40)
[2025-05-26] MEDS: Norepinephrine 8 MG in 0.9% Normal Saline (250mL Bag) 242 ML 1.9 MG CONT INF (02:30)
[2025-05-26] MEDS: dexMEDEtomidine 400 MCG in 0.9% Normal Saline (100mL Bag) 96 ML 19.1 MCG CONT INF ×2 (02:53→15:18)
[2025-05-26] MEDS: 0.9% Saline Lock 10 ML Syringe IV ×5 (05:15→23:45)
[2025-05-26] MEDS: Piperacil/Tazobactam 3.375 GM in 0.9% Normal Saline (50mL MB+) 50 ML IV ×3 (05:23→20:31)
[2025-05-26 06:29] LABS: Hematocrit 42.2 % (37-47); Hemoglobin 13.4 g/dL (12.0-15.0); Immature Granulocytes Count 0.140 X10^3/uL (0.0-0.0); Mean Corp Hgb Conc 31.8 g/dL (32-36); Mean Corpuscular Volume 83.9 fL (81-99); Mean Platelet Vol. 10.4 fl (6.2-12.0); NRBC Flagged by Analyzer 0 % (0-5); Platelet Count 181 K/mm3 (150-450); RBC Distribution Width CV 17.1 % (11.6-14.6); RBC Distribution Width SD 51.5 fl (35.1-43.9); Red Blood Count 5.03 M/mm3 (4.2-5.4); White Blood Count 21.6 K/mm3 (4.4-11.0)
[2025-05-26 06:58] LABS: Anion Gap 11 (5-15); BUN 36 mg/dL (4-19); BUN/Creat Ratio 32.0 RATIO (10-20); Calcium,Total 8.9 mg/dL (7.6-11.0); Carbon Dioxide 20.7 mmol/L (21.0-32.0); Chloride 105 mmol/L (98-108); Estimated Creatinine Clearance 50.61 ml/min (50-250); Glucose 213 mg/dL (70-99); Potassium 4.7 mmol/L (3.3-5.1)
--- NOTE | 2025-05-26 07:15 | PN.HOSP_ITS ---
Reason for Visit Chief Complaint: SOB. Subjective Subjective Still on the vent. Objective Data Objective Data Vital Signs: Vital Signs Temp Pulse Resp BP Pulse Ox O2 Del Method O2 Flow Rate 37.5 C H 85 14 104/58 L 93 Mechanical Ventilator 15 05/26/25 06:00 05/26/25 07:00 05/26/25 07:00 05/26/25 07:00 05/26/25 07:00 05/26/25 07:00 05/24/25 15:55 FiO2 30 05/26/25 07:00 Oxygen Flow Rate (L/min) 15 Oxygen Delivery Method Mechanical Ventilator Weight: 97.1 kg Body Mass Index (BMI) 36.5 Intake & Output: Intake and Output for Last 24 Hours 05/24/25 05/25/25 05/26/25 23:59 23:59 23:59 Intake Total 2484.49 / 2494.19 2645.93 / 2669.09 299.89 / 299.89 Output Total 175 / 175 515 / 815 500 / 500 Balance 2309.49 / 2319.19 2130.93 / 1854.09 -200.11 / -200.11 Lab / Micro Data 05/26/25 06:17 05/26/25 06:17 Labs: Laboratory Results - last 24 hr 05/25/25 09:36: POC Glucose 210 H 05/25/25 09:55: WBC 32.1 H*, RBC 4.95, Hgb 13.3, Hct 42.0, MCV 84.8, MCH 26.9 L, MCHC 31.7 L D, RDW Std Deviation 51.3 H, RDW Coeff of Angela 16.8 H, Plt Count 183, MPV 10.0, Immature Gran % (Auto) 1.500 H, Neut % (Auto) 92.4 H, Lymph % (Auto) 2.4 L, [place] % (Auto) 3.5, Eos % (Auto) 0.0, Baso % (Auto) 0.2, Absolute Neuts (auto) 29.7 H, Absolute Lymphs (auto) 0.76 L, Nucleated RBC % 0, Differential Comment SCANNED, Sodium 137, Potassium 4.8, Chloride 105, Carbon Dioxide 19.7 L, Anion Gap 13, BUN 26 H, Creatinine 1.27 H, Estim Creat Clear Calc 44.46 L, Est GFR (MDRD) Non-Af 45 L, BUN/Creatinine Ratio 20.8 H, Glucose 241 H, Calcium 8.5 05/25/25 13:58: POC Glucose 205 H 05/25/25 18:00: POC Glucose 195 H 05/25/25 23:33: POC Glucose 176 H 05/26/25 05:28: POC Glucose 174 H 05/26/25 06:17: WBC 21.6 H, RBC 5.03, Hgb 13.4, Hct 42.2, MCV 83.9, MCH 26.6 L, MCHC 31.8 L, RDW Std Deviation 51.5 H, RDW Coeff of Angela 17.1 H, Plt Count 181, MPV 10.4, Immature Gran % (Auto) 0.600, Neut % (Auto) 91.2 H, Lymph % (Auto) 3.1 L, [place] % (Auto) 5.0, Eos % (Auto) 0.0, Baso % (Auto) 0.1, Absolute Neuts (auto) 19.7 H, Absolute Lymphs (auto) 0.66 L, Nucleated RBC % 0, Sodium 137, Potassium 4.7, Chloride 105, Carbon Dioxide 20.7 L, Anion Gap 11, BUN 36 H, Creatinine 1.12, Estim Creat Clear Calc 50.61, Est GFR (MDRD) Non-Af 52 L, BUN/Creatinine Ratio 32.0 H, Glucose 213 H, Calcium 8.9 Micro: Microbiology 05/24/25 16:15 Sputum, Induced/Lukens Gram Stain - Final 05/24/25 16:15 Sputum, Induced/Lukens Respiratory Culture - Preliminary Appears to be normal respiratory solomon. Further studies to follow. 05/24/25 16:45 Urine Catheter - Moscoso Urine Culture - Preliminary Presumptive E. coli 05/24/25 21:00 Mucosa - Nasopharyngeal Respiratory Panel (PCR) - Final 05/24/25 16:45 Urine Catheter - [place] Legionella Antigen - Final 05/24/25 16:45 Urine Catheter - [place] Streptococcus pneumoniae Antigen (M - Final 05/24/25 16:07 Mucosa - Nose SARS-CoV-2, Influenza & RSV (PCR) - Final Radiography Diagnostic Testing: Radiology Impression Echocardiogram 05/25/25 08:46 Interpretation Summary Borderline LV systolic function. Estimated LVEF 45%. At least stage I diastolic dysfunction. Elevated left atrial filling pressures. There is severe biatrial dilatation. Severe mitral valve annular calcification. Moderate to severe aortic valve stenosis. Mean peak gradient 9 mmHg. Estimated valve area 0.8 cm??. Trivial to mild tricuspid valve regurgitation. Estimated RVSP 35 mmHg. Aortic sclerosis, no stenosis. Ordering Physician: Wally Rodriges Referring Physician: Alejandro Rosales MD Performed By: Rani Zambrano RDCS Physical Exam Const Constitutional Narrative: intubated sedated. HEENT head/scalp atraumatic and moist oral mucous membranes HEENT Narrative: ETT, OGT in place. Resp normal respiratory effort, no retractions, no use of accessory muscles and clear to auscultation bilaterally Cardio regular rate, regular rhythm, S1 normal heart sound and S2 normal heart sound GI normal to inspection, nondistended, normoactive bowel sounds, soft to palpation and non-tender Extremity normal to inspection Assessment & Plan Assessment/Plan (1) Sepsis: QUALIFIERS: Acute respiratory failure type: unspecified Sepsis acute organ dysfunction status: with acute organ dysfunction Sepsis type: s epsis due to unspecified organism Severe sepsis acute organ dysfunction type: a cute respiratory failure Severe sepsis shock status: without septic shock Q ualified Code(s): A41.9 - Sepsis, unspecified organism; R65.20 - Severe sepsis without septic shock; J96.00 - Acute respiratory failure, unspecified whether with hypoxia or hypercapnia (2) Pneumonia: QUALIFIERS: Laterality: right Lung location: upper lobe of lung Pneumonia type: due to unspecified organism Qualified Code(s): J18.9 - Pneumonia, unspecified organism (3) COPD exacerbation: (4) CHF exacerbation: QUALIFIERS: Heart failure type: combined systolic and diastolic Q ualified Code(s): I50.43 - Acute on chronic combined systolic (congestive) and diastolic (congestive) heart failure (5) Acute respiratory failure with hypoxia and hypercapnia: (6) Acute cystitis with hematuria: (7) Atrial fibrillation: QUALIFIERS: Atrial fibrillation type: longstanding persistent Q ualified Code(s): I48.11 - Longstanding persistent atrial fibrillation (8) Chronic anticoagulation: (9) Hyperglycemia due to type 2 diabetes mellitus: QUALIFIERS: Diabetes mellitus watermelon 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 Pneumonia * extensive right sided infiltrate with pleural effusions. * strep and legionella negative, SCx pending * suspected gram negative NSTEMI * troponins elevated at 85 * likely demand ischemia from above Chronic conditions: * DM-2: start SSI. a1c 6 on 04/19 * Paroxysmal atrial fibrillation; Hold apixaban for now in favor of full-dose LMWH. * Obesity (class I); with a BMI of 34.6 this admission plus MURIEL * History of colon cancer; s/p colonoscopy 2021 which showed proximal nearly obstructing colon mass and biopsy positive for adenocarcinoma with no evidence of metastatic disease s/p Right hemicolectomy August 17, 2021 for stage IIa (pT3 pNO and MO) disease followed by Dr. Robbins of the oncology service with subsequent noting of mediastinal lymphadenopathy on February 09, 2025 * History of embolic Left MCA CVA (~2006); residual Right-sided weakness and impaired speech [with most recent CVA 11/08/2024] plus history of TIA x 4 * Essential hypertension; on furosemide - Hold scheduled antihypertensives in light septic shock * Hyperlipidemia;Hold statin * Hypothyroidism; TSH 14. Free T4 1.6. Continue levothyroxine at current dose. DVT/GI prophylaxis - anticoagulated DW patient's daughter. Charges/Coding Visit Charges Inpatient E&M: 55931 Subs Hosp L2
--- NOTE | 2025-05-26 07:33 | PCM.PN.INT ---
Assessment & Plan Assessment/Plan (1) Acute respiratory failure with hypoxia and hypercapnia: PLAN: Plan RECOMMENDATIONS: 1. Continue assist-control mode of mechanical ventilation. Wean FiO2 and PEEP to maintain saturations at or above 90%. 2. Continue empiric broad-spectrum antimicrobials. 3. Continue bronchodilators and steroids. 4. Levophed, if needed, to maintain a mean arterial pressure at or above 65 mmHg. 5. Continue appropriate GI and DVT prophylaxis. 6. Will repeat spontaneous awakening and breathing trial again tomorrow morning. 7. Okay to initiate tube feeding today from my perspective. IMPRESSIONS: 1. Acute respiratory failure with hypoxemia and hypercapnia Secondary to severe community-acquired pneumonia requiring intubation and mechanical ventilatory support. The patient's acid-base status has improved following intubation. She will be continued on empiric broad-spectrum antimicrobials, pending infectious workup. Continue to wean FiO2 and PEEP to maintain saturations at or above 90%. Corticosteroids will be continued. Plan to perform daily paired spontaneous awakening and breathing trials to assess readiness for extubation. 2. Septic shock The patient presented with sepsis due to suspected pneumonia with acute sepsis related organ dysfunction as evidenced by acute respiratory failure requiring invasive mechanical ventilatory support, lactic acidemia and hyperbilirubinemia. While there was initial fluid resuscitation undertaken, there was clinical concern for fluid overload and possible CHF. Therefore, the patient was ultimately placed on low-dose vasopressor support to maintain hemodynamic stability. Will continue supportive care including antimicrobials, pending infectious workup. 3. NSTEMI Most likely secondary to demand ischemia in the setting of #2. Echocardiogram did confirm the presence of borderline LV function with an ejection fraction of 45% and moderate to severe aortic valve stenosis. 4. History of diabetes mellitus/obstructive sleep apnea/paroxysmal atrial fibrillation/history of colon cancer/history of CVA/hypothyroidism Complicates care, management, recovery and prognosis. Continue supportive measures as noted above. Continue Synthroid per home regimen. Okay to initiate tube feeding today from my perspective. CODE STATUS: DNR CCA TIME: 35 minutes of critical care time, independent of procedures, was spent addressing the patient's acute respiratory failure with hypoxemia and hypercapnia, septic shock, NSTEMI, review of all data and collaboration with the care team. Subjective Subjective The patient was seen and examined at the bedside this morning. Events from the last 24 hours have been reviewed. The patient is currently afebrile, hemodynamically stable and maintaining appropriate oxygen saturations on assist-control mode mechanical ventilation with an FiO2 requirement of 30% and PEEP of 5. The patient has been weaned off of vasopressor support as of this morning. She is currently documented to be overall net +4.2 L for the hospitalization. White blood cell count has improved to 21,000. Creatinine has normalized. While the patient did well this morning with her spontaneous awakening trial, she subsequently failed a spontaneous breathing trial secondary to low tidal volumes and hypoxia. Objective Data Objective Data The patient's most recent lab work, culture data and imaging studies have all been personally reviewed. Surface echocardiogram demonstrated borderline LV function with an ejection fraction of 45% and stage I diastolic dysfunction. There was evidence of moderate to severe aortic valve stenosis with a right ventricular systolic pressure estimated to be 35 mmHg. Urine culture was positive for presumptive E. coli. Blood and sputum cultures have not demonstrated any growth to date. Vital Signs: Vital Signs Temp Pulse Resp BP Pulse Ox O2 Del Method O2 Flow Rate 99.5 F H 85 14 104/58 L 93 Mechanical Ventilator 15 05/26/25 06:00 05/26/25 07:00 05/26/25 07:00 05/26/25 07:00 05/26/25 07:00 05/26/25 07:00 05/24/25 15:55 FiO2 30 05/26/25 07:00 Oxygen Flow Rate (L/min) 15 Oxygen Delivery Method Mechanical Ventilator Weight: 214 lb 1.102 oz Body Mass Index (BMI) 36.5 Intake & Output: Intake and Output for Last 24 Hours 05/24/25 05/25/25 05/26/25 23:59 23:59 23:59 Intake Total 2484.49 / 2494.19 2645.93 / 2669.09 299.89 / 299.89 Output Total 175 / 175 515 / 815 500 / 500 Balance 2309.49 / 2319.19 2130.93 / 1854.09 -200.11 / -200.11 Lab / Micro Data Attestation: I reviewed the patient's lab results. 05/26/25 06:17 05/26/25 06:17 Labs: Laboratory Results - last 24 hr 05/25/25 09:36: POC Glucose 210 H 05/25/25 09:55: WBC 32.1 H*, RBC 4.95, Hgb 13.3, Hct 42.0, MCV 84.8, MCH 26.9 L, MCHC 31.7 L D, RDW Std Deviation 51.3 H, RDW Coeff of Angela 16.8 H, Plt Count 183, MPV 10.0, Immature Gran % (Auto) 1.500 H, Neut % (Auto) 92.4 H, Lymph % (Auto) 2.4 L, [place] % (Auto) 3.5, Eos % (Auto) 0.0, Baso % (Auto) 0.2, Absolute Neuts (auto) 29.7 H, Absolute Lymphs (auto) 0.76 L, Nucleated RBC % 0, Differential Comment SCANNED, Sodium 137, Potassium 4.8, Chloride 105, Carbon Dioxide 19.7 L, Anion Gap 13, BUN 26 H, Creatinine 1.27 H, Estim Creat Clear Calc 44.46 L, Est GFR (MDRD) Non-Af 45 L, BUN/Creatinine Ratio 20.8 H, Glucose 241 H, Calcium 8.5 05/25/25 13:58: POC Glucose 205 H 05/25/25 18:00: POC Glucose 195 H 05/25/25 23:33: POC Glucose 176 H 05/26/25 05:28: POC Glucose 174 H 05/26/25 06:17: WBC 21.6 H, RBC 5.03, Hgb 13.4, Hct 42.2, MCV 83.9, MCH 26.6 L, MCHC 31.8 L, RDW Std Deviation 51.5 H, RDW Coeff of Angela 17.1 H, Plt Count 181, MPV 10.4, Immature Gran % (Auto) 0.600, Neut % (Auto) 91.2 H, Lymph % (Auto) 3.1 L, [place] % (Auto) 5.0, Eos % (Auto) 0.0, Baso % (Auto) 0.1, Absolute Neuts (auto) 19.7 H, Absolute Lymphs (auto) 0.66 L, Nucleated RBC % 0, Sodium 137, Potassium 4.7, Chloride 105, Carbon Dioxide 20.7 L, Anion Gap 11, BUN 36 H, Creatinine 1.12, Estim Creat Clear Calc 50.61, Est GFR (MDRD) Non-Af 52 L, BUN/Creatinine Ratio 32.0 H, Glucose 213 H, Calcium 8.9 Micro: Microbiology 05/24/25 16:15 Sputum, Induced/Lukens Gram Stain - Final 05/24/25 16:15 Sputum, Induced/Lukens Respiratory Culture - Preliminary Appears to be normal respiratory solomon. Further studies to follow. 05/24/25 16:45 Urine Catheter - Moscoso Urine Culture - Preliminary Presumptive E. coli 05/24/25 21:00 Mucosa - Nasopharyngeal Respiratory Panel (PCR) - Final 05/24/25 16:45 Urine Catheter - [place] Legionella Antigen - Final 05/24/25 16:45 Urine Catheter - [place] Streptococcus pneumoniae Antigen (M - Final 05/24/25 16:07 Mucosa - Nose SARS-CoV-2, Influenza & RSV (PCR) - Final Radiography Diagnostic Testing: Radiology Impression Echocardiogram 05/25/25 08:46 Interpretation Summary Borderline LV systolic function. Estimated LVEF 45%. At least stage I diastolic dysfunction. Elevated left atrial filling pressures. There is severe biatrial dilatation. Severe mitral valve annular calcification. Moderate to severe aortic valve stenosis. Mean peak gradient 9 mmHg. Estimated valve area 0.8 cm??. Trivial to mild tricuspid valve regurgitation. Estimated RVSP 35 mmHg. Aortic sclerosis, no stenosis. Ordering Physician: Wally Rodriges Referring Physician: Alejandro Rosales MD Performed By: Rani Zambrano RDCS Physical Exam Const Constitutional Narrative: Remains intubated and mechanically ventilated. HEENT normocephalic and head/scalp atraumatic Mouth: endotracheal tube in place and OG tube in place Eyes EOMs intact bilaterally and conjunctivae normal Neck supple General: trachea midline Chest inspection of chest normal Resp Auscultation: rhonchi and diminished lung sounds Cardio Rhythm: abnormal rhythm Heart Sounds: murmur GI soft to palpation and non-tender Extremity General Extremity: Negative for clubbing or edema Skin General Skin Exam: venous stasis Neuro Sensorium / Orientation: sedated on vent Charges/Coding Procedures Hospitalists Procedures: 60925 Critical Care 1st Hr
[2025-05-26 09:04] LABS: Vancomycin, Trough Level 19.9 ug/mL (5.0-15.0)
[2025-05-26] MEDS: dexMEDEtomidine 400 MCG in 0.9% Normal Saline (100mL Bag) 96 ML 14.3 MCG CONT INF (09:15)
[2025-05-26] MEDS: Chlorhexidine 15 ML PO ×2 (09:36→20:30)
[2025-05-26] MEDS: Vancomycin Trough/Random Due 1 LAB MC ×2 (09:40→12:39)
--- NOTE | 2025-05-26 09:51 | PCM.RX.CS ---
Consult Antibiotic Management Pharmacy has been consulted to manage selected antibiotic: Vancomycin Type of Intervention Type of Consult: Follow-up Suspected Infection Suspected Infection: Pneumonia Prior Doses of Antibiotics Prior Doses of Antibiotics Received/Current Regimen: 05/25/25 @ 1053 Vancomycin 1000mg 05/25/23 @ 2239 Vancomycin 1000mg Labs Labs: Sodium 137 mmol/L (133-145) 05/26/25 06:17 Potassium 4.7 mmol/L (3.3-5.1) 05/26/25 06:17 Chloride 105 mmol/L (98-108) 05/26/25 06:17 Carbon Dioxide 20.7 mmol/L (21.0-32.0) L 05/26/25 06:17 Anion Gap 11 (5-15) 05/26/25 06:17 BUN 36 mg/dL (4-19) H 05/26/25 06:17 Creatinine 1.12 mg/dL (0.70-1.20) 05/26/25 06:17 Est GFR (MDRD) Non-Af 52 (>60) L 05/26/25 06:17 BUN/Creatinine Ratio 32.0 RATIO (10-20) H 05/26/25 06:17 Glucose 213 mg/dL (70-99) H 05/26/25 06:17 Vancomycin Trough 19.9 ug/mL (5.0-15.0) H 05/26/25 08:31 Microbiology Microbiology: Microbiology 05/24/25 16:45 Urine Catheter - [place]cos[place] Urine Culture - Final Presumptive E. coli 05/24/25 16:15 Sputum, Induced/Lukens Gram Stain - Final 05/24/25 16:15 Sputum, Induced/Lukens Respiratory Culture - Preliminary Appears to be normal respiratory solomon. Further studies to follow. 05/24/25 21:00 Mucosa - Nasopharyngeal Respiratory Panel (PCR) - Final 05/24/25 16:45 Urine Catheter - [place] Legionella Antigen - Final 05/24/25 16:45 Urine Catheter - [place] Streptococcus pneumoniae Antigen (M - Final 05/24/25 16:07 Mucosa - Nose SARS-CoV-2, Influenza & RSV (PCR) - Final Dosing Weight Weight used for dosin kg Estimated Creatinine Clearance Estimated Creatinine Clearance: 50 Goal Trough Goal Trough: 15-20 mcg/mL Pharmacy Plan for Drug Dosing Pharmacy Plan for Drug Dosing: Vancomycin 1000mg every 12 hours. Pharmacy Service will continue to monitor and adjust dosing as required.
[2025-05-26] MEDS: Pantoprazole Sodium 40 MG in 0.9% Normal Saline (100mL MB+) 100 ML 330 MG IV (09:55)
[2025-05-26] MEDS: Vancomycin HCl 1,000 MG in 0.9% Normal Saline (250mL Bag) 250 ML 250 MG IV ×2 (09:56→23:43)
[2025-05-26] MEDS: Vital High Protein 1,000 ML 20 ML GT (12:46)
[2025-05-26] MEDS: fentaNYL drip 100 ML 15 MCG CONT INF ×2 (15:40→22:48)
[2025-05-26] MEDS: CHLORHEXIDINE GLUC 2% CLOTH 1 EACH TOWELETTE TOPICAL (16:13)
[2025-05-26] MEDS: dexMEDEtomidine 400 MCG in 0.9% Normal Saline (100mL Bag) 96 ML 16.7 MCG CONT INF (20:32)
[2025-05-26] MEDS: 0.9% Normal Saline (250mL Bag) 250 ML 15 ML IV (23:43)
[2025-05-27] VITALS (34 sets, daily range): BP systolic 95–129; BP diastolic 54–87; PULSE 53–98; RESP 14–25; TEMP 36.6–37.7; O2SAT 93–100; BMI 36.8
[2025-05-27] MEDS: Dexmedetomidine 1,000 mcg in 0.9% NS 240 mL 26.7 MCG CONT INF (01:00)
[2025-05-27 03:23] LABS: Hematocrit 39.9 % (37-47); Hemoglobin 12.4 g/dL (12.0-15.0); Immature Granulocytes Count 0.070 X10^3/uL (0.0-0.0); Mean Corp Hgb Conc 31.1 g/dL (32-36); Mean Corpuscular Volume 84.2 fL (81-99); Mean Platelet Vol. 10.9 fl (6.2-12.0); NRBC Flagged by Analyzer 0 % (0-5); POSITIVE DIFFERENTIAL YES; Platelet Count 158 K/mm3 (150-450); RBC Distribution Width CV 17.2 % (11.6-14.6); RBC Distribution Width SD 52.9 fl (35.1-43.9); Red Blood Count 4.74 M/mm3 (4.2-5.4); White Blood Count 14.2 K/mm3 (4.4-11.0)
[2025-05-27 03:40] LABS: AST(SGOT) 14 U/L (<=31); Alanine Aminotransfer ALT/SGPT 13 U/L (<=34); Albumin, Serum 2.8 g/dL (3.4-4.8); Alkaline Phosphatase 64 U/L (35-104); Anion Gap 11 (5-15); BUN 46 mg/dL (4-19); BUN/Creat Ratio 44.7 RATIO (10-20); Calcium,Total 8.7 mg/dL (7.6-11.0); Carbon Dioxide 19.9 mmol/L (21.0-32.0); Chloride 107 mmol/L (98-108); Estimated Creatinine Clearance 55.25 ml/min (50-250); Globulin 3.2 g/dL (2.2-4.2); Glucose 277 mg/dL (70-99); Potassium 4.4 mmol/L (3.3-5.1)
[2025-05-27] MEDS: Piperacil/Tazobactam 3.375 GM in 0.9% Normal Saline (50mL MB+) 50 ML IV ×3 (04:59→20:58)
[2025-05-27] MEDS: CHLORHEXIDINE GLUC 2% CLOTH 1 EACH TOWELETTE TOPICAL (05:00)
[2025-05-27 05:14] LABS: Allen Test Positive; Base Excess -2 mmol/L (-2 to +2); FI02 30.0; PEEP 5; PO2 62 mmHG (75-100); RR 14; SITE R Radial; SO2 91 % (94-98)
--- NOTE | 2025-05-27 05:35 | RAD_ITS ---
PROCEDURE: CHEST 1 VIEW (PORTABLE) 05/27/2025 REASON FOR EXAM: RESPIRATORY FAILURE TECHNIQUE: Frontal view of the chest. COMPARISON: 05/25/2025 FINDINGS: Endotracheal tube tip 2.2 cm above the alberto; consider 0.5 cm retraction. Enteric tube in appropriate placement. Redemonstrated right mid and lower lobe consolidations. Mildly worsened right posterior layered pleural effusion. Trace left base effusion Cardiac silhouette is stable. Calcified aortic arch. No acute fractures. RAD/Chest 1 View (Portable) IMPRESSION: Endotracheal tube tip 2.2 cm above the alberto; consider 0.5 cm retraction. Ent erik tube in appropriate placement. Redemonstrated right mid and lower lobe consolidations. Mildly worsened right posterior layered pleural effusion. Trace left base effusion, grossly stable. Reading Location: [id number]
--- NOTE | 2025-05-27 05:52 | PN.CC_ITS ---
Assessment & Plan Assessment/Plan (1) Acute respiratory failure with hypoxia and hypercapnia: PLAN: Plan RECOMMENDATIONS: 1. Proceed with a trial of extubation this morning. 2. Once extubated, wean supplemental oxygen to maintain saturations at or above 90%. 3. Continue antimicrobials to complete 7 days of therapy. 4. Continue bronchodilators and steroids. Okay to transition from IV Solu- Medrol to prednisone beginning tomorrow. 5. Continue appropriate DVT prophylaxis. 6. Encourage incentive spirometer use and mobilize patient as tolerated. 7. Perform bedside swallow evaluation with dietary advancement as tolerated. IMPRESSIONS: 1. Acute respiratory failure with hypoxemia and hypercapnia Secondary to severe community-acquired pneumonia requiring intubation and mechanical ventilatory support. With supportive care, including antimicrobials, bronchodilators and steroids, the patient has improved clinically. She was able to be extubated on the morning of May 27. Will plan to continue to wean supplemental oxygen to maintain saturations at or above 90%. IV Solu-Medrol can be transition to prednisone 40 mg daily beginning tomorrow. Will perform bedside swallow evaluation with plans for dietary advancement as tolerated. Antibiotic should be continued to complete 7 days of therapy. 2. Septic shock Resolved. The patient presented with sepsis due to suspected pneumonia with acute sepsis related organ dysfunction as evidenced by acute respiratory failure requiring invasive mechanical ventilatory support, lactic acidemia and hyperbilirubinemia. While there was initial fluid resuscitation undertaken, there was clinical concern for fluid overload and possible CHF. Although the patient was transiently requiring the use of vasopressor support, she has been weaned from Levophed and remains hemodynamically stable. 3. NSTEMI Most likely secondary to demand ischemia in the setting of #2. Echocardiogram did confirm the presence of borderline LV function with an ejection fraction of 45% and moderate to severe aortic valve stenosis. 4. History of diabetes mellitus/obstructive sleep apnea/paroxysmal atrial fibrillation/history of colon cancer/history of CVA/hypothyroidism Complicates care, management, recovery and prognosis. Continue supportive measures as noted above. Continue Synthroid per home regimen. Physical therapy to work with the patient. Bedside swallow evaluation to be completed with dietary advancement as tolerated. CODE STATUS: Full code (this was confirmed with the patient following extubation) TIME: 34 minutes of critical care time, independent of procedures, was spent addressing the patient's acute respiratory failure with hypoxemia and hypercapnia, septic shock, NSTEMI, review of all data and collaboration with the care team. Subjective Subjective The patient was seen and examined at the bedside this morning. Events from the last 24 hours have been reviewed. The patient is currently afebrile, hemodynamically stable and maintaining appropriate oxygen saturations on assist- control mode mechanical ventilation with an FiO2 requirement of 30% and PEEP of 5. The patient did much better this morning with her spontaneous awakening and breathing trials. Accordingly, the patient was extubated. White blood cell count was noted to be 14,000. Hemoglobin and platelet count are stable. Arterial blood gas was notable for a pH of 7.39 with a pCO2 of 37 and pO2 of 62. Chemistry profile revealed a normal creatinine. Objective Data Objective Data The patient's most recent lab work, culture data and imaging studies have all been personally reviewed. Surface echocardiogram demonstrated borderline LV function with an ejection fraction of 45% and stage I diastolic dysfunction. There was evidence of moderate to severe aortic valve stenosis with a right ventricular systolic pressure estimated to be 35 mmHg. Urine culture was positive for presumptive E. coli. Blood and sputum cultures have not demonstrated any growth to date. Vital Signs: Vital Signs Temp Pulse Resp BP Pulse Ox O2 Del Method O2 Flow Rate 99.7 F H 75 14 120/62 95 Mechanical Ventilator 15 05/27/25 05:00 05/27/25 05:00 05/27/25 05:00 05/27/25 05:00 05/27/25 05:00 05/27/25 05:00 05/24/25 15:55 FiO2 30 05/27/25 05:00 Oxygen Flow Rate (L/min) 15 Oxygen Delivery Method Mechanical Ventilator Weight: 215 lb 9.793 oz Body Mass Index (BMI) 36.8 Intake & Output: Intake and Output for Last 24 Hours 05/25/25 05/26/25 05/27/25 23:59 23:59 23:59 Intake Total 2645.93 / 2669.09 1907.05 / 1982.60 700.33 / 700.33 Output Total 515 / 815 950 / 1350 700 / 700 Balance 2130.93 / 1854.09 957.05 / 633.60 0.33 / 0.33 Lab / Micro Data Attestation: I reviewed the patient's lab results. 05/27/25 03:18 05/27/25 03:18 Labs: Laboratory Results - last 24 hr 05/24/25 16:07: Diff Path Review Reviewed 05/26/25 06:17: WBC 21.6 H, RBC 5.03, Hgb 13.4, Hct 42.2, MCV 83.9, MCH 26.6 L, MCHC 31.8 L, RDW Std Deviation 51.5 H, RDW Coeff of Angela 17.1 H, Plt Count 181, MPV 10.4, Immature Gran % (Auto) 0.600, Neut % (Auto) 91.2 H, Lymph % (Auto) 3.1 L, [place] % (Auto) 5.0, Eos % (Auto) 0.0, Baso % (Auto) 0.1, Absolute Neuts (auto) 19.7 H, Absolute Lymphs (auto) 0.66 L, Nucleated RBC % 0, Sodium 137, Potassium 4.7, Chloride 105, Carbon Dioxide 20.7 L, Anion Gap 11, BUN 36 H, Creatinine 1.12, Estim Creat Clear Calc 50.61, Est GFR (MDRD) Non-Af 52 L, BUN/Creatinine Ratio 32.0 H, Glucose 213 H, Calcium 8.9 05/26/25 08:31: Vancomycin Trough 19.9 H 05/26/25 12:25: POC Glucose 185 H 05/26/25 18:00: POC Glucose 192 H 05/26/25 23:50: POC Glucose 225 H 05/27/25 03:18: WBC 14.2 H, RBC 4.74, Hgb 12.4, Hct 39.9, MCV 84.2, MCH 26.2 L, MCHC 31.1 L, RDW Std Deviation 52.9 H, RDW Coeff of Angela 17.2 H, Plt Count 158, MPV 10.9, Immature Gran % (Auto) 0.500, Neut % (Auto) 92.4 H, Lymph % (Auto) 3.3 L, [place] % (Auto) 3.7, Eos % (Auto) 0.0, Baso % (Auto) 0.1, Absolute Neuts (auto) 13.1 H, Absolute Lymphs (auto) 0.47 L, Nucleated RBC % 0, Sodium 138, Potassium 4.4, Chloride 107, Carbon Dioxide 19.9 L, Anion Gap 11, BUN 46 H, Creatinine 1.03, Estim Creat Clear Calc 55.25, Est GFR (MDRD) Non-Af 57 L, BUN/Creatinine Ratio 44.7 H, Glucose 277 H, Calcium 8.7, Total Bilirubin 1.07, AST 14, ALT 13, Alkaline Phosphatase 64, Total Protein 5.9, Albumin 2.8 L, Globulin 3.2, Albumin/Globulin Ratio 0.9 05/27/25 04:58: POC Glucose 231 H Micro: Microbiology 05/24/25 16:45 Urine Catheter - Moscoso Urine Culture - Final Presumptive E. coli 05/24/25 16:15 Sputum, Induced/Lukens Gram Stain - Final 05/24/25 16:15 Sputum, Induced/Lukens Respiratory Culture - Preliminary Appears to be normal respiratory solomon. Further studies to follow. 05/24/25 21:00 Mucosa - Nasopharyngeal Respiratory Panel (PCR) - Final 05/24/25 16:45 Urine Catheter - Moscoso Legionella Antigen - Final 05/24/25 16:45 Urine Catheter - Moscoso Streptococcus pneumoniae Antigen (M - Final 05/24/25 16:07 Mucosa - Nose SARS-CoV-2, Influenza & RSV (PCR) - Final ABG Data ABG results: ABG 05/27/25 05:10 Specimen Type ART Sample Site R Radial pH 7.39 Bicarbonate Actual 22.9 Total CO2 24 Base Excess -2 O2 Saturation 91 L O2 % 30.0 ABG pCO2 37.7 ABG pO2 62 L Kenneth Test Positive Respiration Rate 14 O2 Delivery Device ET Tube Vent Mode AC Tidal Volume 450.0 POC PEEP 5 Radiography Diagnostic Testing: Radiology Impression Echocardiogram 05/25/25 08:46 Interpretation Summary Borderline LV systolic function. Estimated LVEF 45%. At least stage I diastolic dysfunction. Elevated left atrial filling pressures. There is severe biatrial dilatation. Severe mitral valve annular calcification. Moderate to severe aortic valve stenosis. Mean peak gradient 9 mmHg. Estimated valve area 0.8 cm??. Trivial to mild tricuspid valve regurgitation. Estimated RVSP 35 mmHg. Aortic sclerosis, no stenosis. Ordering Physician: Wally Rodriges Referring Physician: Alejandro Rosales MD Performed By: Rani Zambrano RDCS Physical Exam Const Constitutional Narrative: Remains intubated and mechanically ventilated. Tolerating spontaneous mode of mechanical ventilation. HEENT normocephalic and head/scalp atraumatic Mouth: endotracheal tube in place and OG tube in place Eyes EOMs intact bilaterally and conjunctivae normal Neck supple General: trachea midline Chest inspection of chest normal Resp Auscultation: diminished lung sounds; Negative for rales, rhonchi or wheezes Cardio Rhythm: abnormal rhythm Heart Sounds: murmur GI soft to palpation and non-tender Extremity General Extremity: Negative for clubbing or edema Skin General Skin Exam: venous stasis Neuro Neuro Narrative: Alert and able to follow simple commands appropriately. Charges/Coding Procedures Hospitalists Procedures: 64240 Critical Care 1st Hr
[2025-05-27] MEDS: fentaNYL drip 100 ML 15 MCG CONT INF (06:00)
--- NOTE | 2025-05-27 07:04 | PCM.PN.HOSP ---
Reason for Visit Chief Complaint: SOB. Subjective Subjective Extubated today. Objective Data Objective Data Vital Signs: Vital Signs Temp Pulse Resp BP Pulse Ox O2 Del Method O2 Flow Rate 37.7 C H 77 14 128/60 H 95 Mechanical Ventilator 15 05/27/25 06:00 05/27/25 06:59 05/27/25 06:59 05/27/25 06:00 05/27/25 06:59 05/27/25 06:00 05/24/25 15:55 FiO2 30 05/27/25 06:59 Oxygen Flow Rate (L/min) 15 Oxygen Delivery Method Mechanical Ventilator Weight: 97.8 kg Body Mass Index (BMI) 36.8 Intake & Output: Intake and Output for Last 24 Hours 05/25/25 05/26/25 05/27/25 23:59 23:59 23:59 Intake Total 2645.93 / 2669.09 1907.05 / 1983.60 1078.86 / 1078.86 Output Total 515 / 815 950 / 1350 700 / 700 Balance 2130.93 / 1854.09 957.05 / 633.60 378.86 / 378.86 Lab / Micro Data 05/27/25 03:18 05/27/25 03:18 Labs: Laboratory Results - last 24 hr 05/24/25 16:07: Diff Path Review Reviewed 05/26/25 08:31: Vancomycin Trough 19.9 H 05/26/25 12:25: POC Glucose 185 H 05/26/25 18:00: POC Glucose 192 H 05/26/25 23:50: POC Glucose 225 H 05/27/25 03:18: WBC 14.2 H, RBC 4.74, Hgb 12.4, Hct 39.9, MCV 84.2, MCH 26.2 L, MCHC 31.1 L, RDW Std Deviation 52.9 H, RDW Coeff of Angela 17.2 H, Plt Count 158, MPV 10.9, Immature Gran % (Auto) 0.500, Neut % (Auto) 92.4 H, Lymph % (Auto) 3.3 L, [place] % (Auto) 3.7, Eos % (Auto) 0.0, Baso % (Auto) 0.1, Absolute Neuts (auto) 13.1 H, Absolute Lymphs (auto) 0.47 L, Nucleated RBC % 0, Sodium 138, Potassium 4.4, Chloride 107, Carbon Dioxide 19.9 L, Anion Gap 11, BUN 46 H, Creatinine 1.03, Estim Creat Clear Calc 55.25, Est GFR (MDRD) Non-Af 57 L, BUN/Creatinine Ratio 44.7 H, Glucose 277 H, Calcium 8.7, Total Bilirubin 1.07, AST 14, ALT 13, Alkaline Phosphatase 64, Total Protein 5.9, Albumin 2.8 L, Globulin 3.2, Albumin/Globulin Ratio 0.9 05/27/25 04:58: POC Glucose 231 H Micro: Microbiology 05/24/25 16:45 Urine Catheter - Moscoso Urine Culture - Final Presumptive E. coli 05/24/25 16:15 Sputum, Induced/Lukens Gram Stain - Final 05/24/25 16:15 Sputum, Induced/Lukens Respiratory Culture - Preliminary Appears to be normal respiratory solomon. Further studies to follow. 05/24/25 21:00 Mucosa - Nasopharyngeal Respiratory Panel (PCR) - Final 05/24/25 16:45 Urine Catheter - Moscoso Legionella Antigen - Final 05/24/25 16:45 Urine Catheter - Moscoso Streptococcus pneumoniae Antigen (M - Final 05/24/25 16:07 Mucosa - Nose SARS-CoV-2, Influenza & RSV (PCR) - Final ABG Data ABG results: ABG 05/27/25 05:10 Specimen Type ART Sample Site R Radial pH 7.39 Bicarbonate Actual 22.9 Total CO2 24 Base Excess -2 O2 Saturation 91 L O2 % 30.0 ABG pCO2 37.7 ABG pO2 62 L Kenneth Test Positive Respiration Rate 14 O2 Delivery Device ET Tube Vent Mode AC Tidal Volume 450.0 POC PEEP 5 Radiography Diagnostic Testing: Radiology Impression Chest X-Ray 05/27/25 05:35 IMPRESSION: Endotracheal tube tip 2.2 cm above the alberto; consider 0.5 cm retraction. Enteric tube in appropriate placement. Redemonstrated right mid and lower lobe consolidations. Mildly worsened right posterior layered pleural effusion. Trace left base effusion, grossly stable. Reading Location: [facility] Physical Exam Const Constitutional Narrative: seen prior to extubation. On vent, awake, attempting to speak. Resp Resp Narrative: coarse breath sounds bilaterally. Cardio regular rate, regular rhythm, S1 normal heart sound and S2 normal heart sound GI normal to inspection, nondistended, normoactive bowel sounds, soft to palpation, non-tender and non-distended Neuro Sensorium / Orientation: awake and alert Assessment & Plan Assessment/Plan (1) Sepsis: QUALIFIERS: Acute respiratory failure type: unspecified Sepsis acute organ dysfunction status: with acute organ dysfunction Sepsis type: sepsis due to unspecified organism Severe sepsis acute organ dysfunction type: acute respiratory failure Severe sepsis shock status: without septic shock Qualified Code(s): A41.9 - Sepsis, unspecified organism; R65.20 - Severe sepsis without septic shock; J96.00 - Acute respiratory failure, unspecified whether with hypoxia or hypercapnia (2) Pneumonia: QUALIFIERS: Laterality: right Lung location: upper lobe of lung Pneumonia type: due to unspecified organism Qualified Code(s): J18.9 - Pneumonia, unspecified organism (3) COPD exacerbation: (4) CHF exacerbation: QUALIFIERS: Heart failure type: combined systolic and diastolic Qualified Code(s): I50.43 - Acute on chronic combined systolic (congestive) and diastolic (congestive) heart failure (5) Acute respiratory failure with hypoxia and hypercapnia: (6) Acute cystitis with hematuria: (7) Atrial fibrillation: QUALIFIERS: Atrial fibrillation type: longstanding persistent Qualified Code(s): I48.11 - Longstanding persistent atrial fibrillation (8) Chronic anticoagulation: (9) Hyperglycemia due to type 2 diabetes mellitus: QUALIFIERS: Diabetes mellitus joint terminal attack controller insulin use: without joint terminal attack controller use Qualified Code(s): E11.65 - Type 2 diabetes mellitus with hyperglycemia (10) Hyperbilirubinemia: (11) Obesity (BMI 30.0-34.9): PLAN: Plan Acute hypercapnic and hypoxic respiratory failure intubated 05/24, extubated 05/27 2/2 pneumonia and pleural effusion +/1 [facility] consult on methylpred Septic shock POA SOFA 14 2/2 pneumonia follow up cultures pip/tazo and vancomycin norepinephrine weaned off 05/27 Pneumonia extensive right sided infiltrate with pleural effusions. strep and legionella negative, SCx pending. respiratory panel negative. suspected gram negative UTI equivocal UA and UCx. already on abx for pneumonia NSTEMI troponins elevated at 85 likely demand ischemia from above Echo shows an EF of 45%, freddy biatrial dilation. Aortic sclerosis, no stenosis. Chronic conditions: DM-2: start SSI. a1c 6 on 04/19 Paroxysmal atrial fibrillation; Hold apixaban for now in favor of full-dose LMWH. Obesity (class I); with a BMI of 34.6 this admission plus MURIEL History of colon cancer; s/p colonoscopy 2021 which showed proximal nearly obstructing colon mass and biopsy positive for adenocarcinoma with no evidence of metastatic disease s/p Right hemicolectomy August 17, 2021 for stage IIa (pT3 pNO and MO) disease followed by Dr. Robbins of the oncology service with subsequent noting of mediastinal lymphadenopathy on February 09, 2025 History of embolic Left MCA CVA (~2006); residual Right-sided weakness and impaired speech [with most recent CVA 11/08/2024] plus history of TIA x 4 Essential hypertension; on furosemide - Hold scheduled antihypertensives in light septic shock Hyperlipidemia;Hold statin Hypothyroidism; TSH 14. Free T4 1.6. Continue levothyroxine at current dose. DVT/GI prophylaxis - anticoagulated Charges/Coding Visit Charges Inpatient E&M: 46149 Subs Hosp L2
[2025-05-27] MEDS: Vancomycin HCl 1,000 MG in 0.9% Normal Saline (250mL Bag) 250 ML 250 MG IV (10:24)
[2025-05-27] MEDS: Chlorhexidine 15 ML PO (10:24)
[2025-05-27] MEDS: Pantoprazole Sodium 40 MG in 0.9% Normal Saline (100mL MB+) 100 ML 330 MG IV (10:25)
[2025-05-27] MEDS: APIXABAN 5 MG TABLET PO (20:57)
[2025-05-27 21:47] LABS: Vancomycin, Trough Level 22.1 ug/mL (5.0-15.0)
--- NOTE | 2025-05-27 21:55 | PCM.RX.CS ---
Consult Antibiotic Management Pharmacy has been consulted to manage selected antibiotic: Vancomycin Type of Intervention Type of Consult: Follow-up Suspected Infection Suspected Infection: Sepsis and Pneumonia Labs Labs: Sodium 138 mmol/L (133-145) 05/27/25 03:18 Potassium 4.4 mmol/L (3.3-5.1) 05/27/25 03:18 Chloride 107 mmol/L (98-108) 05/27/25 03:18 Carbon Dioxide 19.9 mmol/L (21.0-32.0) L 05/27/25 03:18 Anion Gap 11 (5-15) 05/27/25 03:18 BUN 46 mg/dL (4-19) H 05/27/25 03:18 Creatinine 1.03 mg/dL (0.70-1.20) 05/27/25 03:18 Est GFR (MDRD) Non-Af 57 (>60) L 05/27/25 03:18 BUN/Creatinine Ratio 44.7 RATIO (10-20) H 05/27/25 03:18 Glucose 277 mg/dL (70-99) H 05/27/25 03:18 Vancomycin Trough 22.1 ug/mL (5.0-15.0) H 05/27/25 21:08 Microbiology Microbiology: Microbiology 05/27/25 14:21 Nasal Secretion MRSA (PCR) - Final Meth. resistant Staph. aureus 05/24/25 16:15 Sputum, Induced/Lukens Gram Stain - Final 05/24/25 16:15 Sputum, Induced/Lukens Respiratory Culture - Final 05/24/25 16:15 Blood Culture (Wb) - Right Wrist Blood Culture - Preliminary No growth in 48 hours. 05/24/25 16:15 Blood Culture (Wb) - Left Wrist Blood Culture - Preliminary No growth in 48 hours. 05/24/25 16:45 Urine Catheter - Moscoso Urine Culture - Final Presumptive E. coli 05/24/25 21:00 Mucosa - Nasopharyngeal Respiratory Panel (PCR) - Final 05/24/25 16:45 Urine Catheter - Moscoso Legionella Antigen - Final 05/24/25 16:45 Urine Catheter - Moscoso Streptococcus pneumoniae Antigen (M - Final 05/24/25 16:07 Mucosa - Nose SARS-CoV-2, Influenza & RSV (PCR) - Final Dosing Weight Weight used for dosin.8 kg Estimated Creatinine Clearance Estimated Creatinine Clearance: 55 Goal Trough Goal Trough: 15-20 mcg/mL Pharmacy Plan for Drug Dosing Pharmacy Plan for Drug Dosing: Vancomycin trough level of 22.1, drawn 10.75hrs post-dose, was above the target range of 15-20. Will suspend current dosing and will draw a random vancomycin level in 12 hours to determine further orders. Pharmacy Service will continue to monitor and adjust dosing as required. Follow-Up Labs Follow-Up Labs: Trough: Vancomycin (random) Date/Time Labs Ordered Labs to be done on [date and time ordered]: 05/28/25 @0900 (random)
[2025-05-27] MEDS: 0.9% Saline Lock 10 ML Syringe IV ×2 (22:10→23:27)
--- NOTE | 2025-05-27 22:50 | RAD_ITS ---
PROCEDURE: ABDOMEN SINGLE VIEW (PORTABLE) 05/27/2025 REASON FOR EXAM: VOMITING TECHNIQUE: Procedure Code: RADABD_P Modality: DX Procedure: ABDOMEN SINGLE VIEW (PORTABLE) COMPARISON: None available. FINDINGS: Bowel gas: Extensive dilated loops of air-filled large bowel loops measuring up to 8.5 cm in diameter. Findings are concerning for a developing colonic obstruction or marked ileus. No evidence of small- bowel obstruction. Calcifications: Small pelvic calcifications identified most consistent with phleboliths. Bones: There are degenerative changes of the spine. RAD/Abdomen Single View (Portable) IMPRESSION: Probable developing colonic obstruction versus marked ileus. Clinical correlat ion suggested. Reading Location: [facility]
[2025-05-28] VITALS (19 sets, daily range): BP systolic 113–129; BP diastolic 64–97; PULSE 81–104; RESP 13–25; TEMP 36.2–36.8; O2SAT 86–100; BMI 37.8
--- NOTE | 2025-05-28 00:33 | CT_ITS ---
PROCEDURE: ABDOMEN/PELVIS W IV CONT ONLY 05/28/2025 REASON FOR EXAM: ?SBO VS ILEUS ON KUB. TECHNIQUE: Procedure Code: [id number] Modality: CT Procedure: ABDOMEN/PELVIS W IV CONT ONLY Coronal and Sagittal reconstruction series were provided. CONTRAST: OMNIPAQUE 350 VOLUME: 100 mL One or more dose reduction techniques were used (e.g., Automated exposure control, adjustment of the mA and/or kV according to patient size, use of iterative reconstruction technique. RADIATION DOSE SUMMARY: CTDlvol: 22.97 mGy DLP: 1248 mGycm COMPARISON: CT scan on 10/07/2022. PET-CT on 04/26/2025. FINDINGS: Moderate bilateral pleural effusions. Passive atelectatic airspace disease/airspace consolidations of the lower lobes. Mild cardiomegaly. Hepatomegaly with hepatic steatosis. Prior cholecystectomy. Interval appearance of moderate ascites. Interval appearance of moderate anasarca. Moscoso catheter balloon is seen in the bladder. Right hemicolectomy, unchanged. Fluid-filled distended stomach suggestive of gastroparesis. Fluid-filled proximal colon, probably ileus. No definite CT evidence of bowel obstruction. Diffuse spondylosis. Bilateral multifocal scarring of the kidneys. Normal extrahepatic biliary system. Normal spleen. Normal pancreas. Normal bilateral adrenal glands. There is no right renal mass. There are no right renal calculi. There is no right hydronephrosis. Normal visualized right ureter. There is no left renal mass. There are no left renal calculi. There is no left hydronephrosis. Normal visualized left ureter. Normal small intestine. Calcified atheromatous plaques of the abdominal aorta. Normal inferior vena cava. Normal retroperitoneum. There is no pelvic mass lesion or lymphadenopathy. Fat containing umbilical hernia without incarceration. Diffuse spondylosis. CT/Abdomen/Pelvis W IV Cont ONLY IMPRESSION: Moderate bilateral pleural effusions. Passive atelectatic airspace disease/airspace consolidations of the lower lobes . Mild cardiomegaly. Hepatomegaly with hepatic steatosis. Prior cholecystectomy. Interval appearance of moderate ascites. Interval appearance of moderate anasarca. Moscoso catheter balloon is seen in the bladder. Right hemicolectomy, unchanged. Fluid-filled distended stomach suggestive of gastroparesis. Fluid-filled proximal colon, probably ileus. No definite CT evidence of bowel obstruction. Diffuse spondylosis. Bilateral multifocal scarring of the kidneys. Reading [facility]
[2025-05-28] MEDS: 0.9% Saline Lock 10 ML Syringe IV ×5 (01:35→22:39)
--- NOTE | 2025-05-28 02:30 | NURSING ---
Called radiology since abd CT wasn't read yet, sima said she will reach out to the radiologist d/t delays in read times.
[2025-05-28 04:30] LABS: Hematocrit 39.5 % (37-47); Hemoglobin 12.1 g/dL (12.0-15.0); Immature Granulocytes Count 0.110 X10^3/uL (0.0-0.0); Mean Corp Hgb Conc 30.6 g/dL (32-36); Mean Corpuscular Volume 85.5 fL (81-99); Mean Platelet Vol. 10.6 fl (6.2-12.0); NRBC Flagged by Analyzer 0 % (0-5); Platelet Count 161 K/mm3 (150-450); RBC Distribution Width CV 16.9 % (11.6-14.6); RBC Distribution Width SD 52.8 fl (35.1-43.9); Red Blood Count 4.62 M/mm3 (4.2-5.4); White Blood Count 17.6 K/mm3 (4.4-11.0)
[2025-05-28] MEDS: Piperacil/Tazobactam 3.375 GM in 0.9% Normal Saline (50mL MB+) 50 ML IV ×3 (05:13→21:17)
[2025-05-28 05:27] LABS: Anion Gap 10 (5-15); BUN 47 mg/dL (4-19); BUN/Creat Ratio 44.9 RATIO (10-20); Calcium,Total 9.5 mg/dL (7.6-11.0); Carbon Dioxide 21.6 mmol/L (21.0-32.0); Chloride 104 mmol/L (98-108); Estimated Creatinine Clearance 55.50 ml/min (50-250); Glucose 132 mg/dL (70-99); Potassium 4.3 mmol/L (3.3-5.1)
--- NOTE | 2025-05-28 07:06 | PN.HOSP_ITS ---
Reason for Visit Chief Complaint: SOB. Subjective Subjective Vomited last night. Objective Data Objective Data Vital Signs: Vital Signs Temp Pulse Resp BP Pulse Ox O2 Del Method O2 Flow Rate 36.3 C L 88 18 117/70 94 Nasal Cannula 3 05/28/25 06:00 05/28/25 06:42 05/28/25 06:42 05/28/25 06:00 05/28/25 06:42 05/28/25 06:42 05/28/25 06:42 FiO2 30 05/27/25 09:00 Oxygen Flow Rate (L/min) 3 Oxygen Delivery Method Nasal Cannula Weight: 100.4 kg Body Mass Index (BMI) 37.8 Intake & Output: Intake and Output for Last 24 Hours 05/26/25 05/27/25 05/28/25 23:59 23:59 23:59 Intake Total 1907.05 / 1983.60 2231.55 / 2231.55 50 / 50 Output Total 950 / 1350 2150 / 2150 425 / 425 Balance 957.05 / 633.60 81.55 / 81.55 -375 / -375 Lab / Micro Data 05/28/25 04:25 05/28/25 04:25 Labs: Laboratory Results - last 24 hr 05/27/25 12:27: POC Glucose 207 H 05/27/25 17:32: POC Glucose 266 H 05/27/25 21:08: Vancomycin Trough 22.1 H 05/27/25 23:25: POC Glucose 152 H 05/28/25 04:25: WBC 17.6 H, RBC 4.62, Hgb 12.1, Hct 39.5, MCV 85.5, MCH 26.2 L, MCHC 30.6 L, RDW Std Deviation 52.8 H, RDW Coeff of Angela 16.9 H, Plt Count 161, MPV 10.6, Immature Gran % (Auto) 0.600, Neut % (Auto) 89.4 H, Lymph % (Auto) 4.6 L, Hemphill % (Auto) 5.2, Eos % (Auto) 0.1, Baso % (Auto) 0.1, Absolute Neuts (auto) 15.7 H, Absolute Lymphs (auto) 0.80 L, Nucleated RBC % 0, Sodium 136, Potassium 4.3, Chloride 104, Carbon Dioxide 21.6, Anion Gap 10, BUN 47 H, Creatinine 1.04, Estim Creat Clear Calc 55.50, Est GFR (MDRD) Non-Af 57 L, BUN/Creatinine Ratio 44.9 H, Glucose 132 H, Calcium 9.5 05/28/25 05:17: POC Glucose 127 H Micro: Microbiology 05/27/25 14:21 Nasal Secretion MRSA (PCR) - Final Meth. resistant Staph. aureus 05/24/25 16:15 Sputum, Induced/Lukens Gram Stain - Final 05/24/25 16:15 Sputum, Induced/Lukens Respiratory Culture - Final 05/24/25 16:15 Blood Culture (Wb) - Right Wrist Blood Culture - Preliminary No growth in 48 hours. 05/24/25 16:15 Blood Culture (Wb) - Left Wrist Blood Culture - Preliminary No growth in 48 hours. 05/24/25 16:45 Urine Catheter - Moscoso Urine Culture - Final Presumptive E. coli 05/24/25 21:00 Mucosa - Nasopharyngeal Respiratory Panel (PCR) - Final 05/24/25 16:45 Urine Catheter - Moscoso Legionella Antigen - Final 05/24/25 16:45 Urine Catheter - Moscoso Streptococcus pneumoniae Antigen (M - Final 05/24/25 16:07 Mucosa - Nose SARS-CoV-2, Influenza & RSV (PCR) - Final Radiography Diagnostic Testing: Radiology Impression KUB X-Ray 05/27/25 22:50 IMPRESSION: Probable developing colonic obstruction versus marked ileus. Clinical correlation suggested. Reading Location: [facility] Abdomen/Pelvis CT 05/28/25 00:33 IMPRESSION: Moderate bilateral pleural effusions. Passive atelectatic airspace disease/airspace consolidations of the lower lobes. Mild cardiomegaly. Hepatomegaly with hepatic steatosis. Prior cholecystectomy. Interval appearance of moderate ascites. Interval appearance of moderate anasarca. Moscoso catheter balloon is seen in the bladder. Right hemicolectomy, unchanged. Fluid-filled distended stomach suggestive of gastroparesis. Fluid-filled proximal colon, probably ileus. No definite CT evidence of bowel obstruction. Diffuse spondylosis. Bilateral multifocal scarring of the kidneys. Reading Location: [id number] Physical Exam Const alert and no apparent distress Constitutional Narrative: up in chair. no respiratory distress. currently on room air. HEENT head/scalp atraumatic and moist oral mucous membranes Resp normal respiratory effort, no retractions, no use of accessory muscles and clear to auscultation bilaterally Cardio regular rate, regular rhythm, S1 normal heart sound and S2 normal heart sound GI normal to inspection, nondistended, normoactive bowel sounds and soft to palpation GI Narrative: distended Auscultation: hypoactive bowel sounds Extremity full ROM Extremity Narrative: taught lower extremity edema in BLE. Neuro Sensorium / Orientation: awake, alert, oriented to person, oriented to place and oriented to time Assessment & Plan Assessment/Plan (1) Sepsis: QUALIFIERS: Acute respiratory failure type: unspecified Sepsis acute organ dysfunction status: with acute organ dysfunction Sepsis type: s epsis due to unspecified organism Severe sepsis acute organ dysfunction type: a cute respiratory failure Severe sepsis shock status: without septic shock Q ualified Code(s): A41.9 - Sepsis, unspecified organism; R65.20 - Severe sepsis without septic shock; J96.00 - Acute respiratory failure, unspecified whether with hypoxia or hypercapnia (2) Pneumonia: QUALIFIERS: Laterality: right Lung location: upper lobe of lung Pneumonia type: due to unspecified organism Qualified Code(s): J18.9 - Pneumonia, unspecified organism (3) COPD exacerbation: (4) CHF exacerbation: QUALIFIERS: Heart failure type: combined systolic and diastolic Q ualified Code(s): I50.43 - Acute on chronic combined systolic (congestive) and diastolic (congestive) heart failure (5) Acute respiratory failure with hypoxia and hypercapnia: (6) Acute cystitis with hematuria: (7) Atrial fibrillation: QUALIFIERS: Atrial fibrillation type: longstanding persistent Q ualified Code(s): I48.11 - Longstanding persistent atrial fibrillation (8) Chronic anticoagulation: (9) Hyperglycemia due to type 2 diabetes mellitus: QUALIFIERS: Diabetes mellitus half-way insulin use: without terminal gauger use Qualified Code(s): E11.65 - Type 2 diabetes mellitus with hyperglycemia (10) Hyperbilirubinemia: (11) Obesity (BMI 30.0-34.9): PLAN: Plan Acute hypercapnic and hypoxic respiratory failure * intubated 05/24, extubated 05/27 * 2/2 pneumonia and pleural effusion +/1 AECOPD * CCM consult * on prednisone Septic shock * POA * SOFA 14 * 2/2 pneumonia * follow up cultures * pip/tazo and vancomycin * norepinephrine weaned off 05/27 Pneumonia * MRSA (positive sputum culture on 05/27) extensive right sided infiltrate with pleural effusions. * strep and legionella negative,respiratory panel negative. * suspected gram negative UTI * equivocal UA and UCx. UCx w presumptive E. coli, williamson sensitive. * already on abx for pneumonia NSTEMI * troponins elevated at 85 * likely demand ischemia from above * Echo shows an EF of 45%, severe biatrial dilation. Aortic sclerosis, no stenosis. Acute HFrEF * EF 45% * CT 05/28 showed bilateral bleural effusions, anasarca, ascites. Pt 5.1 liters positive * start IV furosemide as BP allows. Gastroparesis * noted on CT on 05/28. * received a 1x dose of metoclopramide * advance to clears. Chronic conditions: * DM-2: start SSI. a1c 6 on 04/19 * Paroxysmal atrial fibrillation; apixaban. * Obesity (class I); with a BMI of 34.6 this admission plus MURIEL * History of colon cancer; s/p colonoscopy 2021 which showed proximal nearly obstructing colon mass and biopsy positive for adenocarcinoma with no evidence of metastatic disease s/p Right hemicolectomy August 17, 2021 for stage IIa (pT3 pNO and MO) disease followed by Dr. Robbins of the oncology service with subsequent noting of mediastinal lymphadenopathy on February 09, 2025 * History of embolic Left MCA CVA (~2006); residual Right-sided weakness and impaired speech [with most recent CVA 11/08/2024] plus history of TIA x 4 * Essential hypertension; on furosemide - Hold scheduled antihypertensives in light septic shock * Hyperlipidemia;Hold statin * Hypothyroidism; TSH 14. Free T4 1.6. Continue levothyroxine at current dose. DVT/GI prophylaxis - anticoagulated Transfer to PCU. Charges/Coding Visit Charges Inpatient E&M: 79410 Subs Hosp L2
[2025-05-28] MEDS: Vancomycin Trough/Random Due 1 LAB MC ×2 (09:12→11:24)
[2025-05-28] MEDS: APIXABAN 5 MG TABLET PO ×2 (09:12→21:18)
[2025-05-28 10:27] LABS: Vancomycin, Random Level 16.0 ug/mL (0.0-15.0)
--- NOTE | 2025-05-28 10:33 | CASEMGMT ---
Social Work SW created in [facility] a list of long term facilities in network w/pt's insurance, in pt's preferred geographic area and complete w/quality and resource use data. LUCY Escobedo
--- NOTE | 2025-05-28 10:39 | PCM.RX.CS ---
Consult Antibiotic Management Pharmacy has been consulted to manage selected antibiotic: Vancomycin Type of Intervention Type of Consult: Follow-up Labs Labs: Sodium 136 mmol/L (133-145) 05/28/25 04:25 Potassium 4.3 mmol/L (3.3-5.1) 05/28/25 04:25 Chloride 104 mmol/L (98-108) 05/28/25 04:25 Carbon Dioxide 21.6 mmol/L (21.0-32.0) 05/28/25 04:25 Anion Gap 10 (5-15) 05/28/25 04:25 BUN 47 mg/dL (4-19) H 05/28/25 04:25 Creatinine 1.04 mg/dL (0.70-1.20) 05/28/25 04:25 Est GFR (MDRD) Non-Af 57 (>60) L 05/28/25 04:25 BUN/Creatinine Ratio 44.9 RATIO (10-20) H 05/28/25 04:25 Glucose 132 mg/dL (70-99) H 05/28/25 04:25 Vancomycin Trough 22.1 ug/mL (5.0-15.0) H 05/27/25 21:08 Random Vancomycin 16.0 ug/mL (0.0-15.0) H 05/28/25 09:10 Microbiology Microbiology: Microbiology 05/27/25 14:21 Nasal Secretion MRSA (PCR) - Final Meth. resistant Staph. aureus 05/24/25 16:15 Sputum, Induced/Lukens Gram Stain - Final 05/24/25 16:15 Sputum, Induced/Lukens Respiratory Culture - Final 05/24/25 16:15 Blood Culture (Wb) - Right Wrist Blood Culture - Preliminary No growth in 48 hours. 05/24/25 16:15 Blood Culture (Wb) - Left Wrist Blood Culture - Preliminary No growth in 48 hours. 05/24/25 16:45 Urine Catheter - Moscoso Urine Culture - Final Presumptive E. coli 05/24/25 21:00 Mucosa - Nasopharyngeal Respiratory Panel (PCR) - Final 05/24/25 16:45 Urine Catheter - Moscoso Legionella Antigen - Final 05/24/25 16:45 Urine Catheter - Moscoso Streptococcus pneumoniae Antigen (M - Final 05/24/25 16:07 Mucosa - Nose SARS-CoV-2, Influenza & RSV (PCR) - Final Pharmacy Plan for Drug Dosing Pharmacy Plan for Drug Dosing: VANCOMYCIN LEVEL RECEIVED Current Vancomycin Dose: currently on hold, previous dose 1000mg Q12 Number of Doses Received: 7 Vancomycin Level: 16 mL/min Hours Since Last Dose: 23 Renal Function: SCr 1.04 mg/dL, CrCl 55 mL/min Renal Function Trend: stable Vancomycin Plan/Comments: 23 hour random level is now therapeutic at 16 mg/dL (goal 15-20). Will decrease dose to 750mg Q12 and get a level prior to 4th dose of new regimen. Pending Level: 05/29/25 @ 1028 Pharmacy Service will continue to monitor and adjust dosing as required.
[2025-05-28] MEDS: Vancomycin HCl 750 MG in 0.9% Normal Saline (250mL Bag) 250 ML 250 MG IV ×2 (11:23→22:39)
--- NOTE | 2025-05-28 13:07 | CASEMGMT ---
Social Work SW attempted to call daughter Melvina, her voicemail is full and SW could not leave a message. SW/CM will continue to follow for an appropriate discharge plan. LUCY Escobedo
--- NOTE | 2025-05-28 13:45 | PCM.PN.TICU ---
Objective Data Objective Data Vital Signs: Vital Signs Last response Temperature 36.4 C L 05/28/25 09:00 Temperature Source Core 05/28/25 09:00 Pulse Rate 84 05/28/25 12:19 Pulse Strength Weak (1+) 05/28/25 08:28 Respiratory Rate 20 H 05/28/25 12:19 Respiratory Effort Normal 05/28/25 08:00 Respiratory Depth Normal 05/28/25 08:00 Respiratory Pattern Tachypnea 05/28/25 12:19 Blood Pressure 117/70 05/28/25 09:00 Blood Pressure Mean 85 05/28/25 09:00 Blood Pressure Source Monitor 05/28/25 09:00 Blood Pressure Position Semi-Fowlers 05/28/25 09:00 Blood Pressure Location Right Arm 05/28/25 09:00 Pulse Ox 93 05/28/25 09:30 Oxygen Delivery Method Nasal Cannula 05/28/25 09:30 Oxygen Flow Rate (L/min) 2 05/28/25 11:36 Fraction of Inspired Oxygen (FIO2) 30 05/27/25 09:00 EtCo2 - Document during CPR and with ROSC 48 05/24/25 15:54 I&O: I&O Last 24 Hours 05/27/25 05/28/25 05/28/25 23:59 11:59 23:59 Intake Total 670 / 2231.55 150 / 150 Output Total 1200 / 2150 425 / 1375 950 / 1375 Balance -530 / 81.55 -275 / -1225 -950 / -1225 I&O: Total Stay 05/24/25 15:48 thru 05/28/25 12:00 Intake Total 9419.02 Output Total 5165 Balance 4254.02 Current Meds Ordered / Administered: Current meds ordered / Administered Generic Name Dose Route Start Last Admin Trade Name Freq PRN Reason Stop Dose Admin Acetaminophen 650 mg 05/24/25 20:42 Acetaminophen 650 Mg Suppository RC Q4H PRN PRN Pain 1-10 or Fever Albuterol/Ipratropium 3 ml 05/24/25 20:50 05/28/25 12:18 Ipratropium/Albuterol Sulfate 3 Ml Ampul.Neb INHALATION 3 ml Q6HWA.RT LOWELL Administration Apixaban 5 mg 05/27/25 22:00 05/28/25 09:12 Apixaban 5 Mg Tablet PO 5 mg BID LOWELL Administration Atorvastatin Calcium 40 mg 05/28/25 22:00 Atorvastatin Calcium 40 Mg Tablet PO QHS LOWELL Empagliflozin 25 mg 05/28/25 10:30 05/28/25 11:24 Empagliflozin 25 Mg Tablet PO 25 mg DAILY LOWELL Administration Furosemide 40 mg 05/28/25 10:00 05/28/25 09:20 Furosemide 40 Mg/4 Ml Vial IV 40 mg BIDLX LOWELL Administration Protocol Glucagon 1 mg 05/25/25 07:30 Glucagon 1 Mg/Ml Syringe IM X1 PRN Hypoglycemia Protocol Vancomycin IV-PHARMACY TO DOSE 500 mls @ 250 mls/hr 05/24/25 20:42 1 each/ Sodium Chloride IV X1 PRN Rx to Dose Protocol Piperacillin Sod/Tazobactam 50 mls @ 12.5 mls/hr 05/24/25 22:00 05/28/25 09:23 Sod 3.375 gm/ Sodium Chloride IV Infused Q8 LOWELL Infusion Pantoprazole Sodium 40 mg/ 100 mls @ 330 mls/hr 05/24/25 20:42 05/27/25 11:39 Sodium Chloride IV Infused Q24 LOWELL Infusion Sodium Chloride 250 mls @ 15 mls/hr 05/24/25 21:06 05/27/25 06:39 IV 0 mls/hr .[id number] PRN Infusion Saline Flush Sodium Chloride 250 mls @ 15 mls/hr 05/24/25 21:06 05/25/25 15:06 IV Infused .[id number] PRN Infusion Additional IVPB Infusion Dextrose 250 mls @ 0 mls/hr 05/25/25 07:30 Dextrose 10%-Water IV .Q0M PRN HYPOGLYCEMIA Protocol As Directed Sodium Chloride 250 mls @ 15 mls/hr 05/25/25 22:15 IV .[id number] PRN Saline Flush Sodium Chloride 250 mls @ 15 mls/hr 05/25/25 22:15 IV .[id number] PRN Additional IVPB Infusion Vancomycin HCl 750 mg/ Sodium 265 mls @ 250 mls/hr 05/28/25 11:00 05/28/25 11:23 Chloride IV 250 mls/hr Q12H LOWELL Administration Insulin Human Lispro 0 unit 05/25/25 07:30 05/28/25 11:38 Insulin Lispro 100 Unit/Ml Insuln.Pen SC Not Given Q6 [facility] Protocol Levothyroxine Sodium 100 mcg 05/25/25 06:00 05/28/25 04:44 Levothyroxine 100 Mcg Tablet PO Not Given DAILY@0600 [facility] Ondansetron HCl 4 mg 05/24/25 20:42 05/27/25 22:10 Ondansetron 4 Mg/2 Ml Vial IV 4 mg Q4H PRN PRN Administration NAUSEA/VOMITING Prednisone 40 mg 05/28/25 08:00 05/28/25 09:12 Prednisone 20 Mg Tablet PO 40 mg BREAKFAST LOWELL Administration Sodium Chloride 10 - 40 ml 05/24/25 21:06 05/28/25 09:15 0.9% Saline Lock 10 Ml Syringe IV 20 ml UD PRN Administration SALINE FLUSH Sodium Chloride 10 - 40 ml 05/25/25 22:15 0.9% Saline Lock 10 Ml Syringe IV UD PRN SALINE FLUSH Vancomycin Protocol 1 lab 05/29/25 21:30 Vancomycin Trough/Random Due MC 05/29/25 23:30 DAILY [facility] Lab / Micro Data 05/28/25 04:25 05/28/25 04:25 Labs: Laboratory Results - last 24 hr 05/27/25 17:32: POC Glucose 266 H 05/27/25 21:08: Vancomycin Trough 22.1 H 05/27/25 23:25: POC Glucose 152 H 05/28/25 04:25: WBC 17.6 H, RBC 4.62, Hgb 12.1, Hct 39.5, MCV 85.5, MCH 26.2 L, MCHC 30.6 L, RDW Std Deviation 52.8 H, RDW Coeff of Angela 16.9 H, Plt Count 161, MPV 10.6, Immature Gran % (Auto) 0.600, Neut % (Auto) 89.4 H, Lymph % (Auto) 4.6 L, Elk % (Auto) 5.2, Eos % (Auto) 0.1, Baso % (Auto) 0.1, Absolute Neuts (auto) 15.7 H, Absolute Lymphs (auto) 0.80 L, Nucleated RBC % 0, Sodium 136, Potassium 4.3, Chloride 104, Carbon Dioxide 21.6, Anion Gap 10, BUN 47 H, Creatinine 1.04, Estim Creat Clear Calc 55.50, Est GFR (MDRD) Non-Af 57 L, BUN/Creatinine Ratio 44.9 H, Glucose 132 H, Calcium 9.5 05/28/25 05:17: POC Glucose 127 H 05/28/25 09:10: Random Vancomycin 16.0 H 05/28/25 11:27: POC Glucose 146 H Micro: Microbiology 05/27/25 14:21 Nasal Secretion MRSA (PCR) - Final Meth. resistant Staph. aureus Imaging Radiology Impression KUB X-Ray 05/27/25 22:50 IMPRESSION: Probable developing colonic obstruction versus marked ileus. Clinical correlation suggested. Reading [facility] Abdomen/Pelvis CT 05/28/25 00:33 IMPRESSION: Moderate bilateral pleural effusions. Passive atelectatic airspace disease/airspace consolidations of the lower lobes. Mild cardiomegaly. Hepatomegaly with hepatic steatosis. Prior cholecystectomy. Interval appearance of moderate ascites. Interval appearance of moderate anasarca. Moscoso catheter balloon is seen in the bladder. Right hemicolectomy, unchanged. Fluid-filled distended stomach suggestive of gastroparesis. Fluid-filled proximal colon, probably ileus. No definite CT evidence of bowel obstruction. Diffuse spondylosis. Bilateral multifocal scarring of the kidneys. Reading [facility] Assessment and Plan . Assessment and plan: Chart and data reviewed d/w staff on the unit Admitted w/ PNA, sepsis, MOF She has required MV support - extubated 05/27/25 She is breathing 1 LPM O2 currently I/O (-) w/ diuretics CX noted - E coli in UCX Imaging noted - CT today noted CTA chest reviewed IMPRESSION Resolving sepsis syndrome d/t infectious PNA and GNR UTI Likely hypervolemic at this point - continue forced diuresis as tolerated Multiple underlying chronic co-morbidities She appears stable for TX out of ICU We are available as needed if any problems arise The entirety of this encounter was done via Telemedicine
[2025-05-28] MEDS: Pantoprazole Sodium 40 MG in 0.9% Normal Saline (100mL MB+) 100 ML 330 MG IV (14:23)
--- NOTE | 2025-05-28 20:47 | CPS ---
Patient refused breathing treatment after only taking a small portion of med.
--- NOTE | 2025-05-28 23:35 | CPS ---
Patient has own PAP machine from home in room. Not set up at this time, patient awake and very confused.
[2025-05-29] VITALS (8 sets, daily range): BP systolic 105–123; BP diastolic 59–87; PULSE 75–90; RESP 16–18; TEMP 36.1–36.6; O2SAT 96–100; BMI 37.6
[2025-05-29] MEDS: Piperacil/Tazobactam 3.375 GM in 0.9% Normal Saline (50mL MB+) 50 ML IV ×3 (04:05→21:19)
[2025-05-29] MEDS: 0.9% Saline Lock 10 ML Syringe IV ×2 (04:05→11:10)
[2025-05-29] MEDS: 0.9% Normal Saline (250mL Bag) 250 ML 15 ML IV (04:13)
[2025-05-29 05:34] LABS: Hematocrit 38.3 % (37-47); Hemoglobin 11.8 g/dL (12.0-15.0); Immature Granulocytes Count 0.030 X10^3/uL (0.0-0.0); Mean Corp Hgb Conc 30.8 g/dL (32-36); Mean Corpuscular Volume 85.3 fL (81-99); Mean Platelet Vol. 10.4 fl (6.2-12.0); NRBC Flagged by Analyzer 0 % (0-5); Platelet Count 134 K/mm3 (150-450); RBC Distribution Width CV 16.4 % (11.6-14.6); RBC Distribution Width SD 51.8 fl (35.1-43.9); Red Blood Count 4.49 M/mm3 (4.2-5.4); White Blood Count 9.2 K/mm3 (4.4-11.0)
[2025-05-29 05:58] LABS: Anion Gap 9 (5-15); BUN 43 mg/dL (4-19); BUN/Creat Ratio 42.6 RATIO (10-20); Calcium,Total 9.1 mg/dL (7.6-11.0); Carbon Dioxide 26.2 mmol/L (21.0-32.0); Chloride 102 mmol/L (98-108); Estimated Creatinine Clearance 56.84 ml/min (50-250); Glucose 148 mg/dL (70-99); Potassium 4.1 mmol/L (3.3-5.1)
--- NOTE | 2025-05-29 08:27 | PN.HOSP_ITS ---
Reason for Visit Chief Complaint: SOB. Subjective Subjective Feeling much better. Tolerating clear liquids. Objective Data Objective Data Vital Signs: Vital Signs Temp Pulse Resp BP Pulse Ox O2 Del Method O2 Flow Rate 36.1 C L 83 16 107/87 H 97 Nasal Cannula 2 05/29/25 04:10 05/29/25 07:09 05/29/25 07:09 05/29/25 04:10 05/29/25 07:11 05/29/25 07:11 05/29/25 07:11 FiO2 30 05/27/25 09:00 Oxygen Flow Rate (L/min) 2 Oxygen Delivery Method Nasal Cannula Weight: 99.4 kg Body Mass Index (BMI) 37.6 Intake & Output: Intake and Output for Last 24 Hours 05/27/25 05/28/25 05/29/25 23:59 23:59 23:59 Intake Total 2231.55 / 2231.55 1070 / 1070 196.25 / 196.25 Output Total 2150 / 2150 3875 / 3875 1075 / 1075 Balance 81.55 / 81.55 -2805 / -2805 -878.75 / -878.75 Lab / Micro Data 05/29/25 04:58 05/29/25 04:58 Labs: Laboratory Results - last 24 hr 05/28/25 09:10: Random Vancomycin 16.0 H 05/28/25 11:27: POC Glucose 146 H 05/28/25 17:04: POC Glucose 176 H 05/28/25 21:15: POC Glucose 174 H 05/29/25 04:58: WBC 9.2, RBC 4.49, Hgb 11.8 L, Hct 38.3, MCV 85.3, MCH 26.3 L, M CHC 30.8 L, RDW Std Deviation 51.8 H, RDW Coeff of Angela 16.4 H, Plt Count 134 L, MPV 10.4, Immature Gran % (Auto) 0.300, Neut % (Auto) 78.9 H, Lymph % (Auto) 10.3 L, Knox % (Auto) 10.4 H, Eos % (Auto) 0.0, Baso % (Auto) 0.1, Absolute Neuts (auto) 7.2, Absolute Lymphs (auto) 0.94, Nucleated RBC % 0, Sodium 137, Potassium 4.1, Chloride 102, Carbon Dioxide 26.2, Anion Gap 9, BUN 43 H, Creatinine 1.01, Estim Creat Clear Calc 56.84, Est GFR (MDRD) Non-Af 59 L, B UN/Creatinine Ratio 42.6 H, Glucose 148 H, Calcium 9.1 05/29/25 06:16: POC Glucose 127 H Micro: Microbiology 05/27/25 14:21 Nasal Secretion MRSA (PCR) - Final Meth. resistant Staph. aureus 05/24/25 16:15 Sputum, Induced/Lukens Gram Stain - Final 05/24/25 16:15 Sputum, Induced/Lukens Respiratory Culture - Final 05/24/25 16:15 Blood Culture (Wb) - Right Wrist Blood Culture - Preliminary No growth in 48 hours. 05/24/25 16:15 Blood Culture (Wb) - Left Wrist Blood Culture - Preliminary No growth in 48 hours. 05/24/25 16:45 Urine Catheter - Moscoso Urine Culture - Final Presumptive E. coli 05/24/25 21:00 Mucosa - Nasopharyngeal Respiratory Panel (PCR) - Final 05/24/25 16:45 Urine Catheter - Moscoso Legionella Antigen - Final 05/24/25 16:45 Urine Catheter - Moscoso Streptococcus pneumoniae Antigen (M - Final 05/24/25 16:07 Mucosa - Nose SARS-CoV-2, Influenza & RSV (PCR) - Final Physical Exam Const alert and no apparent distress Constitutional Narrative: up in chair. afebrile. non-toxic. HEENT head/scalp atraumatic and moist oral mucous membranes Neck no lymphadenopathy and supple Resp normal respiratory effort, no retractions, no use of accessory muscles and clear to auscultation bilaterally Cardio regular rate, regular rhythm, S1 normal heart sound and S2 normal heart sound GI normal to inspection, nondistended, normoactive bowel sounds, soft to palpation, non-tender and non-distended Extremity full ROM General Extremity: edema bilateral lower extremity Details: moderate Neuro Sensorium / Orientation: awake and alert Assessment & Plan Assessment/Plan (1) Sepsis: QUALIFIERS: Acute respiratory failure type: unspecified Sepsis acute organ dysfunction status: with acute organ dysfunction Sepsis type: s epsis due to unspecified organism Severe sepsis acute organ dysfunction type: a cute respiratory failure Severe sepsis shock status: without septic shock Q ualified Code(s): A41.9 - Sepsis, unspecified organism; R65.20 - Severe sepsis without septic shock; J96.00 - Acute respiratory failure, unspecified whether with hypoxia or hypercapnia (2) Pneumonia: QUALIFIERS: Laterality: right Lung location: upper lobe of lung Pneumonia type: due to unspecified organism Qualified Code(s): J18.9 - Pneumonia, unspecified organism (3) CHF exacerbation: QUALIFIERS: Heart failure type: combined systolic and diastolic Q ualified Code(s): I50.43 - Acute on chronic combined systolic (congestive) and diastolic (congestive) heart failure (4) Acute respiratory failure with hypoxia and hypercapnia: (5) Acute cystitis with hematuria: PLAN: Plan Acute hypercapnic and hypoxic respiratory failure * intubated 05/24, extubated 05/27 * 2/2 pneumonia and pleural effusion +/1 AECOPD * CCM consult * on prednisone Pneumonia * MRSA (positive sputum culture on 05/27) extensive right sided infiltrate with pleural effusions. * strep and legionella negative,respiratory panel negative. * suspected gram negative * on vancomycin * pulmonary toilet. UTI * equivocal UA and UCx. UCx w presumptive E. coli, williamson sensitive. * already on abx for pneumonia with pip/tazo (stop date placed for 05/31) Acute HFrEF * EF 45% * CT 05/28 showed bilateral bleural effusions, anasarca, ascites. * Continue IV furosemide as BP allows. Gastroparesis * noted on CT on 05/28. * received a 1x dose of metoclopramide * improved. Advance from clears to regular diet. Resolved acute conditions: * Septic shock: POA SOFA 14. 2/2 pneumonia primarily, and UTI. pip/tazo and vancomycin. norepinephrine weaned off 05/27 * NSTEMI: troponins elevated at 85. likely demand ischemia from multifactorial etiologies (resp failure, pneumonia, CHF). Echo shows an EF of 45%, severe biatrial dilation. Aortic sclerosis, no stenosis. Chronic medical conditions: * DM-2: SSI. a1c 6 on 04/19 * Paroxysmal atrial fibrillation; apixaban. * Obesity (class I); with a BMI of 34.6 * History of colon cancer; s/p colonoscopy 2021 which showed proximal nearly obstructing colon mass and biopsy positive for adenocarcinoma with no evidence of metastatic disease s/p Right hemicolectomy August 17, 2021 for stage IIa (pT3 pNO and MO) disease followed by Dr. Robbins of the oncology service with subsequent noting of mediastinal lymphadenopathy on February 09, 2025 * History of embolic Left MCA CVA (~2006); residual Right-sided weakness and impaired speech [with most recent CVA 11/08/2024] plus history of TIA x 4 * Essential hypertension; on furosemide - Hold scheduled antihypertensives in light septic shock * Hyperlipidemia;Hold statin * Hypothyroidism; TSH 14. Free T4 1.6. Continue levothyroxine at current dose. DVT/GI prophylaxis - anticoagulated Flagyl DC to likely SNF. Charges/Coding Visit Charges Inpatient E&M: 03297 Subs Hosp L2
[2025-05-29] MEDS: APIXABAN 5 MG TABLET PO ×2 (10:37→21:31)
[2025-05-29] MEDS: Pantoprazole Sodium 40 MG in 0.9% Normal Saline (100mL MB+) 100 ML 330 MG IV (10:37)
[2025-05-29] MEDS: Vancomycin HCl 750 MG in 0.9% Normal Saline (250mL Bag) 250 ML 250 MG IV (11:10)
[2025-05-29 23:13] LABS: Vancomycin, Trough Level 21.6 ug/mL (5.0-15.0)
--- NOTE | 2025-05-29 23:19 | PCM.RX.CS ---
Consult Antibiotic Management Pharmacy has been consulted to manage selected antibiotic: Vancomycin Type of Intervention Type of Consult: Follow-up Suspected Infection Suspected Infection: Sepsis and Pneumonia Labs Labs: Sodium 137 mmol/L (133-145) 05/29/25 04:58 Potassium 4.1 mmol/L (3.3-5.1) 05/29/25 04:58 Chloride 102 mmol/L (98-108) 05/29/25 04:58 Carbon Dioxide 26.2 mmol/L (21.0-32.0) 05/29/25 04:58 Anion Gap 9 (5-15) 05/29/25 04:58 BUN 43 mg/dL (4-19) H 05/29/25 04:58 Creatinine 1.01 mg/dL (0.70-1.20) 05/29/25 04:58 Est GFR (MDRD) Non-Af 59 (>60) L 05/29/25 04:58 BUN/Creatinine Ratio 42.6 RATIO (10-20) H 05/29/25 04:58 Glucose 148 mg/dL (70-99) H 05/29/25 04:58 Vancomycin Trough 21.6 ug/mL (5.0-15.0) H 05/29/25 22:22 Random Vancomycin 16.0 ug/mL (0.0-15.0) H 05/28/25 09:10 Microbiology Microbiology: Microbiology 05/27/25 14:21 Nasal Secretion MRSA (PCR) - Final Meth. resistant Staph. aureus 05/24/25 16:15 Sputum, Induced/Lukens Gram Stain - Final 05/24/25 16:15 Sputum, Induced/Lukens Respiratory Culture - Final 05/24/25 16:15 Blood Culture (Wb) - Right Wrist Blood Culture - Preliminary No growth in 48 hours. 05/24/25 16:15 Blood Culture (Wb) - Left Wrist Blood Culture - Preliminary No growth in 48 hours. 05/24/25 16:45 Urine Catheter - Moscoso Urine Culture - Final Presumptive E. coli 05/24/25 21:00 Mucosa - Nasopharyngeal Respiratory Panel (PCR) - Final 05/24/25 16:45 Urine Catheter - Moscoso Legionella Antigen - Final 05/24/25 16:45 Urine Catheter - Moscoso Streptococcus pneumoniae Antigen (M - Final 05/24/25 16:07 Mucosa - Nose SARS-CoV-2, Influenza & RSV (PCR) - Final Dosing Weight Weight used for dosin.4 kg Estimated Creatinine Clearance Estimated Creatinine Clearance: 57 Goal Trough Goal Trough: 15-20 mcg/mL Pharmacy Plan for Drug Dosing Pharmacy Plan for Drug Dosing: Vancomycin trough level of 21.6, drawn 11.2hrs post-dose, again crept above the top of the target range of 15-20. Will suspend current dosing and draw a random vanco level in 12 hours to determine further orders. Pharmacy Service will continue to monitor and adjust dosing as required. Follow-Up Labs Follow-Up Labs: Trough: Vancomycin (random) Date/Time Labs Ordered Labs to be done on [date and time ordered]: 05/30/25 @1030 (random)
[2025-05-30] VITALS (10 sets, daily range): BP systolic 102–138; BP diastolic 48–89; PULSE 71–99; RESP 16–18; TEMP 35.8–36.6; O2SAT 90–99; BMI 37.3
[2025-05-30] MEDS: Piperacil/Tazobactam 3.375 GM in 0.9% Normal Saline (50mL MB+) 50 ML IV ×3 (06:43→22:37)
[2025-05-30 07:17] LABS: Hematocrit 40.1 % (37-47); Hemoglobin 12.5 g/dL (12.0-15.0); Immature Granulocytes Count 0.030 X10^3/uL (0.0-0.0); Mean Corp Hgb Conc 31.2 g/dL (32-36); Mean Corpuscular Volume 85.0 fL (81-99); Mean Platelet Vol. 11.0 fl (6.2-12.0); NRBC Flagged by Analyzer 0 % (0-5); Platelet Count 147 K/mm3 (150-450); RBC Distribution Width CV 16.2 % (11.6-14.6); RBC Distribution Width SD 50.8 fl (35.1-43.9); Red Blood Count 4.72 M/mm3 (4.2-5.4); White Blood Count 7.5 K/mm3 (4.4-11.0)
[2025-05-30 07:49] LABS: AST(SGOT) 22 U/L (<=31); Alanine Aminotransfer ALT/SGPT 31 U/L (<=34); Albumin, Serum 3.6 g/dL (3.4-4.8); Alkaline Phosphatase 70 U/L (35-104); Anion Gap 11 (5-15); BUN 35 mg/dL (4-19); BUN/Creat Ratio 37.8 RATIO (10-20); Calcium,Total 9.4 mg/dL (7.6-11.0); Carbon Dioxide 30.8 mmol/L (21.0-32.0); Chloride 100 mmol/L (98-108); Estimated Creatinine Clearance 61.49 ml/min (50-250); Globulin 3.4 g/dL (2.2-4.2); Glucose 119 mg/dL (70-99); Potassium 3.7 mmol/L (3.3-5.1)
--- NOTE | 2025-05-30 09:34 | CASEMGMT ---
Social Work SW called the daughter Melvina and left a message. DIOGENES Kunz
[2025-05-30] MEDS: Pantoprazole Sodium 40 MG in 0.9% Normal Saline (100mL MB+) 100 ML 330 MG IV (09:38)
--- NOTE | 2025-05-30 09:43 | CASEMGMT ---
Social Work SW spoke with the daughter Melvina. Melvina reported she would like her mother to DC to TCU. SW explained that insurance will need to approve it. SW asked her to make a couple of other SNF choices due TCU may not have availability. SW emailed her a SNF list to review. A list of?SNF providers including quality and resource use data and consistent with the patient's preferred geographic region, medical needs, and insurance network was created in [facility] Guide.? This list was provided to the daughter Melvina through her email. SW asked the daughter to let SW know her other choices. DIOGENES Kunz
--- NOTE | 2025-05-30 10:02 | CASEMGMT ---
Social Work SW made the referral to TCU but TCU is not able to accept. DIOGENES Weinstein
--- NOTE | 2025-05-30 10:14 | CASEMGMT ---
Social Work SW spoke with the daughter Melvina and explained TCU cannot accept her mother. SW explained insurance may deny her mother going to a SNF. The daughter reported the patient lives her grandson but he works 3rd shift and sleeps during the day. The daughter reported the patients cognition has been a concern since the stroke in November. SW explained her mother is oriented to herself and would 24 hour supervision upon. DC. The daughter reported they can arrange for someone to be with her. Melvina reported her sister is in the patients room currently. SW will provide that sister the list of SNF's. LDIOGENES Hernandez
--- NOTE | 2025-05-30 10:19 | CASEMGMT ---
Social Work JASPREET spoke with the daughter Suzan and the patient. JASPREET spoke with Suzan about SNF and HH. SW explained insurance would have to approve her mother going to a SNF and her mother is walking 210 feet. SW explained her mother needs 24 hour supervision due to her cognitive concerns. JASPREET gave Suzan the SNF list and informed her TCU cannot accept her mother. Suzan reported she might just take her [place] to [place] house [place]. The patient stated she wants to go home. JASPREET will follow up regarding the family decision. DIOGENES Kunz
--- NOTE | 2025-05-30 11:04 | CASEMGMT ---
Social Work SW spoke with the daughter Suzan and she reported she is going to take her mother to her house with HH at [place]. SW informed her SW will bring her back a HH list so she can chose a company. DIOGENES Kunz
--- NOTE | 2025-05-30 11:20 | PN.HOSP_ITS ---
Reason for Visit Chief Complaint: SOB. Objective Data Objective Data Vital Signs: Vital Signs Temp Pulse Resp BP Pulse Ox O2 Del Method O2 Flow Rate 96.5 F L 73 16 124/88 H 94 Room Air 1 05/30/25 08:00 05/30/25 08:00 05/30/25 08:00 05/30/25 08:00 05/30/25 09:57 05/30/25 09:57 05/30/25 08:00 FiO2 30 05/27/25 09:00 Oxygen Flow Rate (L/min) 1 Oxygen Delivery Method Room Air Weight: 98.7 kg Body Mass Index (BMI) 37.3 Intake & Output: Intake and Output for Last 24 Hours 05/28/25 05/29/25 05/30/25 23:59 23:59 23:59 Intake Total 1070 / 1070 1621.25 / 1621.25 100 / 100 Output Total 3875 / 3875 1075 / 1525 1925 / 1925 Balance -2805 / -2805 546.25 / 96.25 -1825 / -1825 Lab / Micro Data 05/30/25 06:50 05/30/25 06:50 Labs: Laboratory Results - last 24 hr 05/29/25 10:57: POC Glucose 210 H 05/29/25 17:01: POC Glucose 321 H 05/29/25 21:18: POC Glucose 204 H 05/29/25 22:22: Vancomycin Trough 21.6 H 05/30/25 06:44: POC Glucose 117 H 05/30/25 06:50: WBC 7.5, RBC 4.72, Hgb 12.5, Hct 40.1, MCV 85.0, MCH 26.5 L, M CHC 31.2 L, RDW Std Deviation 50.8 H, RDW Coeff of Angela 16.2 H, Plt Count 147 L, MPV 11.0, Immature Gran % (Auto) 0.400, Neut % (Auto) 71.9 H, Lymph % (Auto) 16.2 L, [place] % (Auto) 11.2 H, Eos % (Auto) 0.3, Baso % (Auto) 0.0, Absolute Neuts (auto) 5.4, Absolute Lymphs (auto) 1.21, Nucleated RBC % 0, Sodium 142, Potassium 3.7, Chloride 100, Carbon Dioxide 30.8, Anion Gap 11, BUN 35 H, Creatinine 0.93, Estim Creat Clear Calc 61.49, Est GFR (MDRD) Non-Af 65, B UN/Creatinine Ratio 37.8 H, Glucose 119 H, Calcium 9.4, Total Bilirubin 1.37 H, AST 22, ALT 31, Alkaline Phosphatase 70, Total Protein 7.0, Albumin 3.6, Globulin 3.4, Albumin/Globulin Ratio 1.1 Micro: Microbiology 05/24/25 16:15 Blood Culture (Wb) - Right Wrist Blood Culture - Final No growth in 5 days. 05/24/25 16:15 Blood Culture (Wb) - Left Wrist Blood Culture - Final No growth in 5 days. 05/27/25 14:21 Nasal Secretion MRSA (PCR) - Final Meth. resistant Staph. aureus 05/24/25 16:15 Sputum, Induced/Lukens Gram Stain - Final 05/24/25 16:15 Sputum, Induced/Lukens Respiratory Culture - Final 05/24/25 16:45 Urine Catheter - Moscoso Urine Culture - Final Presumptive E. coli 05/24/25 21:00 Mucosa - Nasopharyngeal Respiratory Panel (PCR) - Final 05/24/25 16:45 Urine Catheter - Moscoso Legionella Antigen - Final 05/24/25 16:45 Urine Catheter - Moscoso Streptococcus pneumoniae Antigen (M - Final 05/24/25 16:07 Mucosa - Nose SARS-CoV-2, Influenza & RSV (PCR) - Final Assessment & Plan Assessment/Plan (1) Sepsis: QUALIFIERS: Sepsis type: sepsis due to unspecified organism S epsis acute organ dysfunction status: with acute organ dysfunction Severe sepsis acute organ dysfunction type: acute respiratory failure Acute respiratory failure type: unspecified Severe sepsis shock status: without septic shock Qualified Code(s): A41.9 - Sepsis, unspecified organism; R65.20 - Severe sepsis without septic shock; J96.00 - Acute respiratory failure, unspecified whether with hypoxia or hypercapnia (2) Pneumonia: QUALIFIERS: Pneumonia type: due to unspecified organism L aterality: right Lung location: upper lobe of lung Qualified Code(s): J18.9 - Pneumonia, unspecified organism (3) CHF exacerbation: QUALIFIERS: Heart failure type: combined systolic and diastolic Q ualified Code(s): I50.43 - Acute on chronic combined systolic (congestive) and diastolic (congestive) heart failure (4) Acute respiratory failure with hypoxia and hypercapnia: (5) Acute cystitis with hematuria: PLAN: Plan Acute hypercapnic and hypoxic respiratory failure * intubated 05/24, extubated 05/27 * 2/2 pneumonia and pleural effusion +/1 AECOPD * CCM consult * on prednisone Pneumonia * MRSA (positive sputum culture on 05/27) extensive right sided infiltrate with pleural effusions. * strep and legionella negative,respiratory panel negative. * suspected gram negative * on vancomycin * pulmonary toilet. UTI * equivocal UA and UCx. UCx w presumptive E. coli, williamson sensitive. * already on abx for pneumonia with pip/tazo (stop date placed for 05/31) Acute HFrEF * EF 45% * CT 05/28 showed bilateral bleural effusions, anasarca, ascites. * Continue IV furosemide as BP allows. Gastroparesis * noted on CT on 05/28. * received a 1x dose of metoclopramide * improved. Advance from clears to regular diet. Resolved acute conditions: * Septic shock: POA SOFA 14. 2/2 pneumonia primarily, and UTI. pip/tazo and vancomycin. norepinephrine weaned off 05/27 * NSTEMI: troponins elevated at 85. likely demand ischemia from multifactorial etiologies (resp failure, pneumonia, CHF). Echo shows an EF of 45%, severe biatrial dilation. Aortic sclerosis, no stenosis. Chronic medical conditions: * DM-2: SSI. a1c 6 on 04/19 * Paroxysmal atrial fibrillation; apixaban. * Obesity (class I); with a BMI of 34.6 * History of colon cancer; s/p colonoscopy 2021 which showed proximal nearly obstructing colon mass and biopsy positive for adenocarcinoma with no evidence of metastatic disease s/p Right hemicolectomy August 17, 2021 for stage IIa (pT3 pNO and MO) disease followed by Dr. Robbins of the oncology service with subsequent noting of mediastinal lymphadenopathy on February 09, 2025 * History of embolic Left MCA CVA (~2006); residual Right-sided weakness and impaired speech [with most recent CVA 11/08/2024] plus history of TIA x 4 * Essential hypertension; on furosemide - Hold scheduled antihypertensives in light septic shock * Hyperlipidemia;Hold statin * Hypothyroidism; TSH 14. Free T4 1.6. Continue levothyroxine at current dose. DVT/GI prophylaxis - anticoagulated Flagyl DC to likely SNF.
--- NOTE | 2025-05-30 11:20 | PCM.PN.HOSP ---
Reason for Visit Chief Complaint: SOB. Subjective Subjective Patient is a 75-year-old lady who was brought to the emergency department with progressive shortness of breath and assessment of acute hypercapnic and hypoxic respiratory failure made patient intubated and admitted to the intensive care unit weaned off the vent on Objective Data Objective Data Vital Signs: Vital Signs Temp Pulse Resp BP Pulse Ox O2 Del Method O2 Flow Rate 96.5 F L 73 16 124/88 H 94 Room Air 1 05/30/25 08:00 05/30/25 08:00 05/30/25 08:00 05/30/25 08:00 05/30/25 09:57 05/30/25 09:57 05/30/25 08:00 FiO2 30 05/27/25 09:00 Oxygen Flow Rate (L/min) 1 Oxygen Delivery Method Room Air Weight: 98.7 kg Body Mass Index (BMI) 37.3 Intake & Output: Intake and Output for Last 24 Hours 05/28/25 05/29/25 05/30/25 23:59 23:59 23:59 Intake Total 1070 / 1070 1621.25 / 1621.25 100 / 100 Output Total 3875 / 3875 1075 / 1525 1925 / 1925 Balance -2805 / -2805 546.25 / 96.25 -1825 / -1825 Lab / Micro Data 05/30/25 06:50 05/30/25 06:50 Labs: Laboratory Results - last 24 hr 05/29/25 10:57: POC Glucose 210 H 05/29/25 17:01: POC Glucose 321 H 05/29/25 21:18: POC Glucose 204 H 05/29/25 22:22: Vancomycin Trough 21.6 H 05/30/25 06:44: POC Glucose 117 H 05/30/25 06:50: WBC 7.5, RBC 4.72, Hgb 12.5, Hct 40.1, MCV 85.0, MCH 26.5 L, MCHC 31.2 L, RDW Std Deviation 50.8 H, RDW Coeff of Angela 16.2 H, Plt Count 147 L, MPV 11.0, Immature Gran % (Auto) 0.400, Neut % (Auto) 71.9 H, Lymph % (Auto) 16.2 L, [place] % (Auto) 11.2 H, Eos % (Auto) 0.3, Baso % (Auto) 0.0, Absolute Neuts (auto) 5.4, Absolute Lymphs (auto) 1.21, Nucleated RBC % 0, Sodium 142, Potassium 3.7, Chloride 100, Carbon Dioxide 30.8, Anion Gap 11, BUN 35 H, Creatinine 0.93, Estim Creat Clear Calc 61.49, Est GFR (MDRD) Non-Af 65, BUN/Creatinine Ratio 37.8 H, Glucose 119 H, Calcium 9.4, Total Bilirubin 1.37 H, AST 22, ALT 31, Alkaline Phosphatase 70, Total Protein 7.0, Albumin 3.6, Globulin 3.4, Albumin/Globulin Ratio 1.1 Micro: Microbiology 05/24/25 16:15 Blood Culture (Wb) - Right Wrist Blood Culture - Final No growth in 5 days. 05/24/25 16:15 Blood Culture (Wb) - Left Wrist Blood Culture - Final No growth in 5 days. 05/27/25 14:21 Nasal Secretion MRSA (PCR) - Final Meth. resistant Staph. aureus 05/24/25 16:15 Sputum, Induced/Lukens Gram Stain - Final 05/24/25 16:15 Sputum, Induced/Lukens Respiratory Culture - Final 05/24/25 16:45 Urine Catheter - Moscoso Urine Culture - Final Presumptive E. coli 05/24/25 21:00 Mucosa - Nasopharyngeal Respiratory Panel (PCR) - Final 05/24/25 16:45 Urine Catheter - Moscoso Legionella Antigen - Final 05/24/25 16:45 Urine Catheter - Moscoso Streptococcus pneumoniae Antigen (M - Final 05/24/25 16:07 Mucosa - Nose SARS-CoV-2, Influenza & RSV (PCR) - Final Physical Exam Narrative GENERAL: cooperative HEENT: Atraumatic; normocephalic EYES; Anicteric, Normal Conjunctiva NECK; supple, normal thyroid, RESPIRATORY: Diminished to auscultation CARDIOVASCULAR: Regular S1 S2, GI: soft, normoactive bowel sounds, : No Renal angle tenderness; EXTREMITIES: No edema, no clubbing, MUSCULOSKELETAL: no muscle wasting NEURO: Awake; expressive aphasia SKIN: No Rash PSYCH; Flat affect Assessment & Plan Assessment/Plan (1) Sepsis: QUALIFIERS: Acute respiratory failure type: unspecified Sepsis acute organ dysfunction status: with acute organ dysfunction Sepsis type: sepsis due to unspecified organism Severe sepsis acute organ dysfunction type: acute respiratory failure Severe sepsis shock status: without septic shock Qualified Code(s): A41.9 - Sepsis, unspecified organism; R65.20 - Severe sepsis without septic shock; J96.00 - Acute respiratory failure, unspecified whether with hypoxia or hypercapnia (2) Pneumonia: QUALIFIERS: Laterality: right Lung location: upper lobe of lung Pneumonia type: due to unspecified organism Qualified Code(s): J18.9 - Pneumonia, unspecified organism (3) CHF exacerbation: QUALIFIERS: Heart failure type: combined systolic and diastolic Qualified Code(s): I50.43 - Acute on chronic combined systolic (congestive) and diastolic (congestive) heart failure (4) Acute respiratory failure with hypoxia and hypercapnia: (5) Acute cystitis with hematuria: PLAN: Plan Patient is a 75-year-old lady who was brought to the emergency department with progressive shortness of breath and assessment of acute hypercapnic and hypoxic respiratory failure made patient intubated and admitted to the intensive care unit weaned off the vent on 05/27/2025 1. Acute hypoxic hypercapnic respiratory failure ? Multifactorial including pneumonia, pleural effusion as well as COPD with acute exacerbation patient was intubated on 05/24/2025 on admission and weaned off the vent on 05/27/2025. Currently on supplemental oxygen which is currently being titrated to keep saturation greater than 90 with treatment of the underlying etiology 2. MRSA pneumonia ? Patient sputum cultures came back positive for MRSA imaging studies demonstrated extensive right-sided infiltrate with pleural effusion patient managed with broad-spectrum antibiotic therapy with vancomycin and Zosyn in addition to pulmonary toileting 3. Acute congestive heart failure with reduced ejection fraction ? Echo did show EF of 45% in addition to bilateral pleural effusion found on imaging studies as well as anasarca and ascites patient responded to diuretic therapy 4. COPD with acute exacerbation ? Patient started on bronchodilator treatment, systemic steroid as well as antibiotic therapy. Patient placed on oxygen titrated to keep saturation greater than 90. 5. Acute cystitis with E. coli ? Urine cultures came back positive for E. coli with 25-50 K colony count manage with broad-spectrum antibiotic therapy with Zosyn as documented above 6. Septic shock ? Secondary to pneumonia and MRSA pneumonia resolved at the time of my assessment patient was managed appropriately per protocol 7. Gastroparesis Noted on CT from 05/28/2025. Patient was managed with metoclopramide. Plan is for patient to follow-up with GI following discharge for possible EGD 8. Diabetes mellitus type II -patient's oral hypoglycemics held. Placed on long acting insulin, Accu-Cheks a.c. and at bedtime and covered with sliding scale insulin 9. Class II obesity with BMI of 37.3 As complicating care weight loss advised 10. 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 Essential hypertension ? Patient antihypertensives held on admission given her presentation resumed as tolerated 12. Hypothyroidism ? Patient is on levothyroxine home dose continued 13. Dyslipidemia ?Patient is on statin therapy, continued at home dose 14. Paroxysmal atrial fibrillation; ? Rate controlled, on systemic anticoagulation with apixaban. 15. History of colon cancer - s/p colonoscopy 2021 which showed proximal nearly obstructing colon mass and biopsy positive for adenocarcinoma with no evidence of metastatic disease s/p Right hemicolectomy August 17, 2021 for stage IIa (pT3 pNO and MO) disease followed by Dr. Robbins of the oncology service with subsequent noting of mediastinal lymphadenopathy on February 09, 2025 16. Physical deconditioning ? Requested for PT OT eval and health and social care teacher to assist with discharge planning 17. DVT prophylaxis ? On apixaban Time spent in the patient's overall evaluation,decision-making process, review of diagnostic data, adjustment of management, discussion with other providers, nursing nursing and ancillary staff involved in patient's care documentation, 52 Minutes Charges/Coding Visit Charges Inpatient E&M: [id number] [facility] L3
[2025-05-30 11:35] LABS: Vancomycin, Random Level 16.4 ug/mL (0.0-15.0)
--- NOTE | 2025-05-30 11:39 | CASEMGMT ---
Discharge Planning A list of?HH providers including quality and resource use data and consistent with the patient's preferred geographic region ([id number]), medical needs, and insurance network was created in [facility]Port Guide.? This list was provided to the SW. SW updated that list is what [facility] has pulled up and that pts insurance website showed no HH providers in area. Suzan Rios, Discharge Planning Asst.
--- NOTE | 2025-05-30 11:42 | PCM.RX.CS ---
Consult Antibiotic Management Pharmacy has been consulted to manage selected antibiotic: Vancomycin Type of Intervention Type of Consult: Follow-up Suspected Infection Suspected Infection: Pneumonia Prior Doses of Antibiotics Prior Doses of Antibiotics Received/Current Regimen: Vancomycin 750 mg Q12H last dose given 05/29/25 @ 1110 Labs Labs: Sodium 142 mmol/L (133-145) 05/30/25 06:50 Potassium 3.7 mmol/L (3.3-5.1) 05/30/25 06:50 Chloride 100 mmol/L (98-108) 05/30/25 06:50 Carbon Dioxide 30.8 mmol/L (21.0-32.0) 05/30/25 06:50 Anion Gap 11 (5-15) 05/30/25 06:50 BUN 35 mg/dL (4-19) H 05/30/25 06:50 Creatinine 0.93 mg/dL (0.70-1.20) 05/30/25 06:50 Est GFR (MDRD) Non-Af 65 (>60) 05/30/25 06:50 BUN/Creatinine Ratio 37.8 RATIO (10-20) H 05/30/25 06:50 Glucose 119 mg/dL (70-99) H 05/30/25 06:50 Vancomycin Trough 21.6 ug/mL (5.0-15.0) H 05/29/25 22:22 Random Vancomycin 16.4 ug/mL (0.0-15.0) H 05/30/25 10:39 Microbiology Microbiology: Microbiology 05/24/25 16:15 Blood Culture (Wb) - Right Wrist Blood Culture - Final No growth in 5 days. 05/24/25 16:15 Blood Culture (Wb) - Left Wrist Blood Culture - Final No growth in 5 days. 05/27/25 14:21 Nasal Secretion MRSA (PCR) - Final Meth. resistant Staph. aureus 05/24/25 16:15 Sputum, Induced/Lukens Gram Stain - Final 05/24/25 16:15 Sputum, Induced/Lukens Respiratory Culture - Final 05/24/25 16:45 Urine Catheter - Moscoso Urine Culture - Final Presumptive E. coli 05/24/25 21:00 Mucosa - Nasopharyngeal Respiratory Panel (PCR) - Final 05/24/25 16:45 Urine Catheter - Moscoso Legionella Antigen - Final 05/24/25 16:45 Urine Catheter - Moscoso Streptococcus pneumoniae Antigen (M - Final 05/24/25 16:07 Mucosa - Nose SARS-CoV-2, Influenza & RSV (PCR) - Final Dosing Weight Weight used for dosin.7 kg Estimated Creatinine Clearance Estimated Creatinine Clearance: ~61 Goal Trough Goal Trough: 15-20 mcg/mL Pharmacy Plan for Drug Dosing Pharmacy Plan for Drug Dosing: Vancomycin random level = 16.4, resume dosing with 1250 mg Q24H Pharmacy Service will continue to monitor and adjust dosing as required. Follow-Up Labs Follow-Up Labs: Trough: Vancomycin Date/Time Labs Ordered Labs to be done on [date and time ordered]: 06/01/25 @ 9386
--- NOTE | 2025-05-30 11:47 | CASEMGMT ---
Social Work SW provided the daughter Suzan and patient with a list of?HH providers including quality and resource use data and consistent with the patient's preferred geographic region, medical needs, and insurance network was created in CarePort Guide.?The daughter reported her mother has a FWW, BCS and SC and she does not think her mother will need any other equipment. DIOGENES Ramírez
[2025-05-30] MEDS: APIXABAN 5 MG TABLET PO ×2 (11:51→22:38)
[2025-05-30] MEDS: Vancomycin HCl 1,250 MG in 0.9% Normal Saline (250mL Bag) 250 ML 167 MG IV (11:57)
--- NOTE | 2025-05-30 12:47 | CASEMGMT ---
Social Work SW called the daughter Suzan. Suzan reported the choices are 1st- [facility], 2nd- [facility] and 3rd A- nursing. Suzan reported she will be transporting her mother home tomorrow. DIOGENES Kunz
--- NOTE | 2025-05-30 12:56 | CASEMGMT ---
Addendum entered by Suzan Rios 05/30/25 14:17: [facility] declined d/t being out of service area. Original Note: Discharge Planning HH referral sent via [facility] to [facility]. Suzan Rios DC Planning Asst
[2025-05-30 13:12] LABS: Magnesium 2.5 mg/dL (1.5-2.2)
--- NOTE | 2025-05-30 14:17 | CASEMGMT ---
Addendum entered by Suzan Rios 05/31/25 10:29: [facility] has accepted. SW updated. Suzan Rios DC Planning Asst. Addendum entered by Suzan Rios 05/31/25 09:26: Call placed to [facility] who asked that referral be sent to the main [facility]. SW updated HH [facility] and [facility]. Suzan Riso DC Planning Asst Original Note: Discharge Planning HH referral sent via [facility] to [facility]. Suzan Rios DC Planning Asst.
[2025-05-30] MEDS: 0.9% Saline Lock 10 ML Syringe IV (17:16)
[2025-05-31] MEDS: Piperacil/Tazobactam 3.375 GM in 0.9% Normal Saline (50mL MB+) 50 ML IV (05:08)
[2025-05-31 05:14] VITALS: BP 137/72; PULSE 78; RESP 16; TEMP 36.6; O2SAT 93
[2025-05-31 05:56] LABS: Hematocrit 42.0 % (37-47); Hemoglobin 13.3 g/dL (12.0-15.0); Immature Granulocytes Count 0.040 X10^3/uL (0.0-0.0); Mean Corp Hgb Conc 31.7 g/dL (32-36); Mean Corpuscular Volume 83.2 fL (81-99); Mean Platelet Vol. 11.2 fl (6.2-12.0); NRBC Flagged by Analyzer 0 % (0-5); Platelet Count 182 K/mm3 (150-450); RBC Distribution Width CV 16.4 % (11.6-14.6); RBC Distribution Width SD 49.7 fl (35.1-43.9); Red Blood Count 5.05 M/mm3 (4.2-5.4); White Blood Count 10.0 K/mm3 (4.4-11.0)
[2025-05-31 06:19] LABS: Magnesium 2.6 mg/dL (1.5-2.2)
[2025-05-31 06:21] LABS: Anion Gap 11 (5-15); BUN 32 mg/dL (4-19); BUN/Creat Ratio 33.7 RATIO (10-20); Calcium,Total 9.8 mg/dL (7.6-11.0); Carbon Dioxide 33.5 mmol/L (21.0-32.0); Chloride 95 mmol/L (98-108); Estimated Creatinine Clearance 60.84 ml/min (50-250); Glucose 113 mg/dL (70-99); Potassium 3.6 mmol/L (3.3-5.1)
[2025-05-31 06:44] VITALS: PULSE 90; RESP 18; O2SAT 94
[2025-05-31 08:39] VITALS: BP 116/64; PULSE 69; RESP 18; TEMP 36.4; O2SAT 92
[2025-05-31] MEDS: APIXABAN 5 MG TABLET PO (08:40)
--- NOTE | 2025-05-31 08:57 | CASEMGMT ---
Addendum entered by Suzan Rios 05/31/25 10:29: [facility] accepted. This referral cancelled. Suzan Rios DC Planning Asst. Original Note: Discharge Planning HH referral sent to [facility]. Suzan Rios DC Planning Asst.
--- NOTE | 2025-05-31 10:28 | CASEMGMT ---
Social Work SW spoke with the daughter Suzan that her mother has been accepted at [facility]. JASPREET informed her [facility] will contact her to schedule the home visit. DIOGENES Kunz
[2025-05-31 10:53] VITALS: O2SAT 88; O2SAT 90; O2SAT 92
--- NOTE | 2025-05-31 10:59 | DS.PCM_ITS ---
Providers Date of Admission: 05/24/25 Date of Discharge: 05/31/25 Primary Care Physician: Dr. Alejandro Rosales MD Consultations 05/24/25 20:42 Consult: Thermodynamics Teacher / Pulmonary Medicine Routine Consulting Provider: Intensivists/Pulmonary Med Reason for Consult: Sepsis 2/2 PNA with AE COPD on vent. EMERGENT Consult: No MD Notified: Yes Date Notified: 05/24/25 Time Notified: 04:47 Method of Notification: Text Reason For Visit: SEPSIS 2/2 PNA WITH AE COPD AND RESP FAILURE ON Diagnosis Discharge Diagnosis (1) Sepsis: Status: Acute Code(s): A41.9 - Sepsis, unspecified organism Qualifiers: Sepsis type: sepsis due to unspecified organism Sepsis acute organ dysfunction status: with acute organ dysfunction Severe sepsis acute organ dysfunction type: acute respiratory failure Acute respiratory failure type: u nspecified Severe sepsis shock status: without septic shock Qualified Code(s): A41.9 - Sepsis, unspecified organism; R65.20 - Severe sepsis without septic shock; J96.00 - Acute respiratory failure, unspecified whether with hypoxia or hypercapnia (2) Pneumonia: Status: Acute Code(s): J18.9 - Pneumonia, unspecified organism Qualifiers: Pneumonia type: due to unspecified organism Laterality: right Lung location: upper lobe of lung Qualified Code(s): J18.9 - Pneumonia, unspecified organism (3) CHF exacerbation: Status: Chronic Code(s): I50.9 - Heart failure, unspecified Qualifiers: Heart failure type: combined systolic and diastolic Qualified Code(s): I50.43 - Acute on chronic combined systolic (congestive) and diastolic (congestive) heart failure (4) Acute respiratory failure with hypoxia and hypercapnia: Status: Acute Code(s): J96.01 - Acute respiratory failure with hypoxia; J96.02 - Acute respiratory failure with hypercapnia (5) Acute cystitis with hematuria: Status: Acute Code(s): N30.01 - Acute cystitis with hematuria Plan Patient is a 75-year-old lady who was brought to the emergency department with progressive shortness of breath and assessment of acute hypercapnic and hypoxic respiratory failure made patient intubated and admitted to the intensive care unit weaned off the vent on 05/27/2025 1. Acute hypoxic hypercapnic respiratory failure ? Multifactorial including pneumonia, pleural effusion as well as COPD with acute exacerbation patient was intubated on 05/24/2025 on admission and weaned off the vent on 05/27/2025. Currently on supplemental oxygen which is currently being titrated to keep saturation greater than 90 with treatment of the underlying etiology ? Patient was discharged home on Augmentin as well as linezolid 2. MRSA pneumonia ? Patient sputum cultures came back positive for MRSA imaging studies demonstrated extensive right-sided infiltrate with pleural effusion patient managed with broad-spectrum antibiotic therapy with vancomycin and Zosyn in addition to pulmonary toileting 3. Acute congestive heart failure with reduced ejection fraction ? Echo did show EF of 45% in addition to bilateral pleural effusion found on imaging studies as well as anasarca and ascites patient responded to diuretic therapy 4. COPD with acute exacerbation ? Patient started on bronchodilator treatment, systemic steroid as well as antibiotic therapy. Patient placed on oxygen titrated to keep saturation greater than 90. 5. Acute cystitis with E. coli ? Urine cultures came back positive for E. coli with 25-50 K colony count manage with broad-spectrum antibiotic therapy with Zosyn as documented above 6. Septic shock ? Secondary to pneumonia and MRSA pneumonia resolved at the time of my assessment patient was managed appropriately per protocol 7. Gastroparesis Noted on CT from 05/28/2025. Patient was managed with metoclopramide. Plan is for patient to follow-up with GI following discharge for possible EGD 8. Diabetes mellitus type II -patient's oral hypoglycemics held. Placed on long acting insulin, Accu-Cheks a.c. and at bedtime and covered with sliding scale insulin 9. Class II obesity with BMI of 37.3 As complicating care weight loss advised 10. 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 Essential hypertension ? Patient antihypertensives held on admission given her presentation resumed as tolerated 12. Hypothyroidism ? Patient is on levothyroxine home dose continued 13. Dyslipidemia ?Patient is on statin therapy, continued at home dose 14. Paroxysmal atrial fibrillation; ? Rate controlled, on systemic anticoagulation with apixaban. 15. History of colon cancer - s/p colonoscopy 2021 which showed proximal nearly obstructing colon mass and biopsy positive for adenocarcinoma with no evidence of metastatic disease s/p Right hemicolectomy August 17, 2021 for stage IIa (pT3 pNO and MO) disease followed by Dr. Robbins of the oncology service with subsequent noting of mediastinal lymphadenopathy on February 09, 2025 16. Physical deconditioning ? Requested for PT OT eval and sr. social media & mobile manager to assist with discharge planning 17. DVT prophylaxis ? On apixaban Time spent in the patient's overall evaluation,decision-making process, review of diagnostic data, adjustment of management, discussion with other providers, nursing nursing and ancillary staff involved in patient's care documentation, 35 minutes Medications at Discharge Home Medications acetaminophen 325 mg tablet 650 mg (2 x 325 mg) PO TID PRN fever/pain #1 TAB 11/25/24 albuterol sulfate 90 mcg/actuation aerosol inhaler 2 puff inhalation Q4H PRN Wheezing #1 g 11/25/24 dapagliflozin propanediol 10 mg tablet (Farxiga) 10 mg PO DAILY dm #30 tabs 11/25/24 fluticasone fur. 200 mcg-umeclid 62.5 mcg-vilant 25 mcg inhalat.powder (Trelegy Ellipta) 1 inh inhalation DAILY sob #1 inh 11/25/24 apixaban 5 mg tablet (Eliquis) 5 mg PO BID blood thinner #60 tabs 12/07/24 atorvastatin 40 mg tablet 40 mg PO QHS cholesterol #30 tabs 12/07/24 furosemide 40 mg tablet 40 mg PO QDAY 03/25/25 ipratropium bromide 21 mcg (0.03 %) nasal spray 1 - 2 spray intranasal Q6 PRN allergy symptoms 03/31/25 BIPAP -Bilevel Positive Airway Pressure ([facility] INFORMATIONAL USE ONLY) 05/16/25 levothyroxine 88 mcg tablet (Euthyrox) 100 mcg PO DAILY THYROID 05/24/25 amoxicillin 875 mg-potassium clavulanate 125 mg tablet 1 tab PO BID 7 days #14 tabs 05/31/25 guaifenesin 600 mg tablet, extended release 12 hr (Mucinex) 1,200 mg (2 x 600 mg) PO BID #20 tabs 05/31/25 linezolid 600 mg tablet 600 mg PO Q12H 7 days #14 tabs 05/31/25 lisinopril 2.5 mg tablet 2.5 mg PO DAILY #30 tabs 05/31/25 prednisone 20 mg tablet 40 mg (2 x 20 mg) PO BREAKFAST 7 days #14 tabs 05/31/25 Weight / BMI Weight Weight: 98.7 kg Body Mass Index (BMI) 37.3 ABG / Lab / Microbiology Data 05/31/25 05:18 05/31/25 05:18 Laboratory: Laboratory Results - last 24 hr 05/30/25 06:50: Magnesium 2.5 H 05/30/25 10:39: Random Vancomycin 16.4 H 05/30/25 11:49: POC Glucose 146 H 05/30/25 15:59: POC Glucose 213 H 05/30/25 22:36: POC Glucose 208 H 05/31/25 05:18: WBC 10.0, RBC 5.05, Hgb 13.3, Hct 42.0, MCV 83.2, MCH 26.3 L, M CHC 31.7 L, RDW Std Deviation 49.7 H, RDW Coeff of Angela 16.4 H, Plt Count 182, MPV 11.2, Immature Gran % (Auto) 0.400, Neut % (Auto) 76.0 H, Lymph % (Auto) 14.3 L, Emanuel % (Auto) 8.8, Eos % (Auto) 0.4, Baso % (Auto) 0.1, Absolute Neuts (auto) 7.6, Absolute Lymphs (auto) 1.43, Nucleated RBC % 0, Sodium 140, Potassium 3.6, Chloride 95 L, Carbon Dioxide 33.5 H, Anion Gap 11, BUN 32 H, Creatinine 0.94, Estim Creat Clear Calc 60.84, Est GFR (MDRD) Non-Af 64, B UN/Creatinine Ratio 33.7 H, Glucose 113 H, Calcium 9.8, Phosphorus 2.7, M agnesium 2.6 H Microbiology: Microbiology 05/24/25 16:15 Blood Culture (Wb) - Right Wrist Blood Culture - Final No growth in 5 days. 05/24/25 16:15 Blood Culture (Wb) - Left Wrist Blood Culture - Final No growth in 5 days. 05/27/25 14:21 Nasal Secretion MRSA (PCR) - Final Meth. resistant Staph. aureus 05/24/25 16:15 Sputum, Induced/Lukens Gram Stain - Final 05/24/25 16:15 Sputum, Induced/Lukens Respiratory Culture - Final 05/24/25 16:45 Urine Catheter - Moscoso Urine Culture - Final Presumptive E. coli 05/24/25 21:00 Mucosa - Nasopharyngeal Respiratory Panel (PCR) - Final 05/24/25 16:45 Urine Catheter - [place] Legionella Antigen - Final 05/24/25 16:45 Urine Catheter - [place] Streptococcus pneumoniae Antigen (M - Final 05/24/25 16:07 Mucosa - Nose SARS-CoV-2, Influenza & RSV (PCR) - Final D/C Instructions DC O2, CPAP, BIPAP Needs Home O2 Discharge instructions: Yes Type of respiratory needs?: Oxygen Oxygen frequency: At rest, With Ambulation Oxygen liters per minute during Ambulation: 2 and With Sleeping Oxygen liters per minute when sleepin DC home with Oxygen: Yes Home O2 MD Review: I have reviewed the oxygen testing, and the patient qualifies for home oxygen equipment and portability. The patient is mobile in the home and the community. Meaningful Use Info Meaningful Use Meaningful Use Diagnoses (Choose all that apply): CHF CHF RUBA/ARB ordered at discharge?: Yes Documented LVEF (%): 45 Discharge Plan Admission Admit Date/Time: 05/24/25 19:49 Attending Provider: Klever Armendariz Primary Care Provider: Alejandro Rosales Consulting Providers: Klever Piedra; Chirag Smith; Aristides Varghese; Bridger Stone; Wally Rodriges; Klever Pike; Beatrice Marquez; Mj Yousif; Sherice Yoo; Scott Izaguirre; Tatum Raymundo; Shimon Chapman; Anthony Becker; Mandie Zhou; Jayy Beckman; Fareed Fischer; Cristiano Duffy; Zoya Bermudez; [place] Schroeder; Violette Wright; Sigrid Brumfield; Deepti Alexander; Juan Hawley; Billie Rondon; Mallory Lowery; Keenan Estevez; Vivien Avila; Billie Shahid; Maxwell Reyes; Gregory Mclean; Harvey Velez; Sara Lopez; Mckay Enamorado; Milan Farr; Tamela Coyne; Adrianne Leos; Mary Beth Bartlett; Teena Soto; Panda Sutton; Holden Woods; Oskar Luna; Aki Mcdonnell; Tommy Monroe; Alejandro Ellison Discharge Orders/Prescriptions Prescriptions: New amoxicillin-pot clavulanate 875-125 mg tablet 1 tab PO BID 7 Days Qty: 14 0RF linezolid 600 mg tablet 600 mg PO Q12H 7 Days Qty: 14 0RF prednisone 20 mg Tablet 40 mg PO BREAKFAST 7 Days Qty: 14 0RF guaifenesin [Mucinex] 600 mg tablet extended release 12hr 1,200 mg PO BID Qty: 20 0RF lisinopril 2.5 mg tablet 2.5 mg PO DAILY Qty: 30 0RF Continued atorvastatin 40 mg tablet 40 mg PO QHS Qty: 30 3RF Eliquis 5 mg tablet 5 mg PO BID Qty: 60 3RF furosemide 40 mg tablet 40 mg PO QDAY ipratropium bromide 21 mcg (0.03 %) spray,non-aerosol 1 - 2 spray intranasal Q6 PRN (Reason: allergy symptoms) (DME) BIPAP -Bilevel Positive Airway Pressure ([facility] INFORMATIONAL USE ONLY) See Rx Instructions .ROUTE .MEDSUPPLY Rx Instructions: BIPAP /8 DME- DASCO MASK- SMALL RESMED N30 NASAL MASK levothyroxine [Euthyrox] 88 mcg Tablet 100 mcg PO DAILY Rx Instructions: Take this on an empty stomach and then do not eat or drink for 30 minutes. acetaminophen 325 mg Tablet 650 mg PO TID PRN (Reason: fever/pain) Qty: 1 0RF albuterol sulfate 90 mcg/actuation Hfa Aerosol Inhaler 2 puff inhalation Q4H PRN (Reason: Wheezing) Qty: 1 0RF Rx Instructions: 2 puffs every 4 hours as needed for wheezing/shortness of breath dapagliflozin propanediol [Farxiga] 10 mg tablet 10 mg PO DAILY Qty: 30 0RF Trelegy Ellipta 200-62.5-25 mcg blister with device 1 inh inhalation DAILY Qty: 1 0RF Patient Comments: PT USES NEEDED Referrals / Follow Up: Alejandro Rosales MD [Primary Care Provider, Family Practice] Disposition Disposition (needs filled in before D/C Order can be placed): Home Health Service Charges/Coding Visit Charges Inpatient E&M: 59367 Disch Hosp >30min
--- NOTE | 2025-05-31 11:40 | CASEMGMT ---
Social Work SW spoke with the daughter Suzan. Suzan reported she has the patients, portable tank, concentrator and C-pap machine. DIOGENES Kunz
--- NOTE | 2025-05-31 11:52 | CASEMGMT ---
Discharge Planning DC sent via [facility]Port to [facility] with note that pts daughter, Suzan, is contact. SOC will be 24-48hrs after confirmation from PCP. Suzan Rios DC Planning Asst.
--- NOTE | 2025-05-31 11:54 | PHA.DC_ITS ---
Pharmacy [facility] Counseling Pharmacy Service has performed discharge medication reconciliation and counseling for this patient. The patient's discharge medication list was reviewed for discrepancies and discrepancies were resolved. The patient was counseled on the following discharge medications and changes in medications for homegoing were reviewed. The Reason for Use, instructions for use, and potential side effects were reviewed for all new medications. The patient's questions regarding all of their medications were answered. 1. Amoxicillin/clavulanate 875/125 mg PO BID x 7 days 2. Linezolid 600 mg PO BID x 7 days 3. Guaifenesin 1200 mg ER PO BID 4. Lisinopril 2.5 mg PO daily 5. Prednisone 40 mg PO daily x 7 days The patient was able to verbally demonstrate an understanding of their discharge medications. Medications at Discharge Home Medications acetaminophen 325 mg tablet 650 mg (2 x 325 mg) PO TID PRN fever/pain #1 TAB 11/25/24 albuterol sulfate 90 mcg/actuation aerosol inhaler 2 puff inhalation Q4H PRN Wheezing #1 g 11/25/24 dapagliflozin propanediol 10 mg tablet (Farxiga) 10 mg PO DAILY dm #30 tabs 11/25/24 fluticasone fur. 200 mcg-umeclid 62.5 mcg-vilant 25 mcg inhalat.powder (Trelegy Ellipta) 1 inh inhalation DAILY sob #1 inh 11/25/24 apixaban 5 mg tablet (Eliquis) 5 mg PO BID blood thinner #60 tabs 12/07/24 atorvastatin 40 mg tablet 40 mg PO QHS cholesterol #30 tabs 12/07/24 furosemide 40 mg tablet 40 mg PO QDAY 03/25/25 ipratropium bromide 21 mcg (0.03 %) nasal spray 1 - 2 spray intranasal Q6 PRN allergy symptoms 03/31/25 BIPAP -Bilevel Positive Airway Pressure ([facility] INFORMATIONAL USE ONLY) 05/16/25 levothyroxine 88 mcg tablet (Euthyrox) 100 mcg PO DAILY THYROID 05/24/25 amoxicillin 875 mg-potassium clavulanate 125 mg tablet 1 tab PO BID 7 days #14 tabs 05/31/25 guaifenesin 600 mg tablet, extended release 12 hr (Mucinex) 1,200 mg (2 x 600 mg) PO BID #20 tabs 05/31/25 linezolid 600 mg tablet 600 mg PO Q12H 7 days #14 tabs 05/31/25 lisinopril 2.5 mg tablet 2.5 mg PO DAILY #30 tabs 05/31/25 prednisone 20 mg tablet 40 mg (2 x 20 mg) PO BREAKFAST 7 days #14 tabs 05/31/25
[2025-05-31 12:37] VITALS: BP 112/60; PULSE 60; RESP 18; TEMP 36.6; O2SAT 94
--- NOTE | 2025-06-02 10:04 | CASEMGMT ---
Addendum entered by Suzan Rios 06/02/25 10:40: Msg received from [facility] and call rec'd from pts daughter (Suzan) that soc was scheduled. Suzan Rios DC Planning Asst. Original Note: Discharge Planning Msg rec'd via [facility] from [facility] that they have been unable to get ahold of pt or her daughter to scheduled SOC. VM left for both of pts sister with my call-back number. Requested from [facility] a contact number should daughters call me instead of [facility]. Suzan Rios DC Planning Asst.
== END 2025-05-31 13:02 | disposition home health service (06) | DRG 871 ==
LOC: ED 17:31 → ICU 05-25 01:07 → PCU 05-28 16:47
PROVIDERS: Internal Medicine Critical Care Medicine; Admitting Provider Internal Medicine; Emergency Provider Surgery; PCP Family Medicine; Visit Provider Internal Medicine
DX: A41.02 Sepsis due to Methicillin resistant Staphylococcus aureus (principal); J96.02 Acute respiratory failure with hypercapnia; R65.21 Severe sepsis with septic shock; J96.01 Acute respiratory failure with hypoxia; I50.21 Acute systolic (congestive) heart failure; J15.212 Pneumonia due to Methicillin resistant Staphylococcus aureus; J44.1 Chronic obstructive pulmonary disease with (acute) exacerbation; I69.351 Hemiplegia and hemiparesis following cerebral infarction affecting right dominant side; I24.89 Other forms of acute ischemic heart disease; J44.0 Chronic obstructive pulmonary disease with (acute) lower respiratory infection; N30.01 Acute cystitis with hematuria; Z66 Do not resuscitate; I11.0 Hypertensive heart disease with heart failure; E11.51 Type 2 diabetes mellitus with diabetic peripheral angiopathy without gangrene; E03.9 Hypothyroidism, unspecified; Z68.34 Body mass index [BMI] 34.0-34.9, adult; I48.0 Paroxysmal atrial fibrillation; E78.5 Hyperlipidemia, unspecified; E11.65 Type 2 diabetes mellitus with hyperglycemia; E11.43 Type 2 diabetes mellitus with diabetic autonomic (poly)neuropathy; K31.84 Gastroparesis; I69.320 Aphasia following cerebral infarction; G47.33 Obstructive sleep apnea (adult) (pediatric); R59.0 Localized enlarged lymph nodes; B96.20 Unspecified Escherichia coli [E. coli] as the cause of diseases classified elsewhere; Z68.37 Body mass index [BMI] 37.0-37.9, adult; E66.812 Obesity, class 2; R74.8 Abnormal levels of other serum enzymes; Z90.49 Acquired absence of other specified parts of digestive tract; Z79.01 Long term (current) use of anticoagulants; Z79.51 Long term (current) use of inhaled steroids; Z79.84 Long term (current) use of oral hypoglycemic drugs; Z79.890 Hormone replacement therapy; Z79.899 Other long term (current) drug therapy; Z85.038 Personal history of other malignant neoplasm of large intestine; Z87.74 Personal history of (corrected) congenital malformations of heart and circulatory system; Z87.891 Personal history of nicotine dependence
CPT/HCPCS: 31500; 31720; 36415; 36600; 70450; 71045; 71275; 74018; 74177; 80048; 80053; 80061; 80202; 81001; 82803; 82962; 83605; 83735; 83880; 84100; 84439; 84443; 84481; 84484; 85025; 85610; 85730; 87040; 87070; 87086; 87088; 87186; 87205; 87449; 87631; 87633; 87641; 93005; 93306; 94002; 94003; 94640; 94660; 94668; 94762; 97116; 97163; 97167; 97530; 97535; 97803; 99252; 99285; P9047; Q9967; A4216; G0463; J0696; J1938; J2405

== ENCOUNTER 2025-06-10 12:56 | Outpatient (RCR) | payer MEDICARE, OTHER, SELFPAY ==
[2025-06-10 15:30] LABS: Prothrombin Time (Protime)PT. 17.0 SECONDS (11.7-14.9)
== END 2025-07-02 18:00 | disposition home or self-care (01) ==
LOC: MTLAB 12:56
PROVIDERS: PCP Family Medicine; Referring Provider Family Medicine; Visit Provider Family Medicine
DX: I48.91 Unspecified atrial fibrillation (principal)
CPT/HCPCS: 36415; 85610

== ENCOUNTER → 2025-06-21 | Outpatient (CLI) | payer MEDICARE, OTHER, SELFPAY ==
[2025-06-21 17:58] LABS: AST(SGOT) 21 U/L (<=31); Alanine Aminotransfer ALT/SGPT 19 U/L (<=34); Albumin, Serum 4.1 g/dL (3.4-4.8); Alkaline Phosphatase 127 U/L (35-104); Anion Gap 16 (5-15); BUN 11 mg/dL (4-19); BUN/Creat Ratio 12.3 RATIO (10-20); CRP 23.40 mg/L (0.0-3.0); Calcium,Total 10.2 mg/dL (7.6-11.0); Carbon Dioxide 24.2 mmol/L (21.0-32.0); Chloride 98 mmol/L (98-108); Globulin 3.1 g/dL (2.2-4.2); Glucose 114 mg/dL (70-99); Potassium 3.5 mmol/L (3.3-5.1)
[2025-06-21 18:03] LABS: Ammonia 35.7 umol/L (11-51)
[2025-06-21 18:56] LABS: Osmolality, Serum 299 mOsm/KG (280-301)
[2025-06-22 15:05] LABS: Syphilis Antibodies Nonreactive (Nonreactive)
== END | disposition home or self-care (01) ==
LOC: MTLAB 16:31
PROVIDERS: PCP Family Medicine; Referring Provider Family Medicine; Visit Provider Family Medicine
DX: F19.950 Other psychoactive substance use, unspecified with psychoactive substance-induced psychotic disorder with delusions (principal); K76.82 Hepatic encephalopathy
CPT/HCPCS: 36415; 80053; 82140; 83930; 86140; 86780